=== PATIENT | male | born 1950 | race Caucasian/White ===

== ENCOUNTER 2019-12-28 10:04 | Outpatient (REF) | payer MEDICARE, MEDICAID, SELFPAY ==
--- NOTE | 2019-12-28 09:45 | CT_ITS ---
EXAMINATION: CT CHEST SCREENING CLINICAL INFORMATION: Lung cancer screening COMPARISON: Previous chest CT exams most recent September 2019 TECHNIQUE: Multidetector volumetric CT imaging of the chest is performed without contrast using low dose technique. Additional 2D coronal and sagittal reformatted images and axial 3D maximum intensity projection (MIP) images are generated on the CT workstation. This CT examination was performed using dose optimization techniques as appropriate, variously including the following: *Automated exposure control *Adjustment of mA and/or kV according to patient size (this includes techniques or standardized protocols for targeted exams where dose is matched to indication/reason for exam; i.e. extremities or head) *Use of iterative reconstruction technique DLP: 88 mGy-cm FINDINGS: LUNGS: There is evidence of emphysema. The previously identified new right-sided pulmonary nodule seen on September 2019 are no longer seen. There is scarring or subsegmental atelectasis at the right lung base. There is a peripheral or subpleural area of masslike consolidation seen in the right lower lobe with some early of the central bronchovascular pattern suggestive of round atelectasis that is stable. No new pulmonary nodule seen. MEDIASTINUM: The visualized thyroid gland is unremarkable. There are no enlarged hilar or mediastinal lymph nodes. There is an aortic valve replacement. The heart does not appear enlarged. There is moderate coronary artery calcification. The thoracic aorta is upper normal in size. The pulmonary arteries are prominent, main pulmonary artery measuring 3.6 cm again questionable for pulmonary artery hypertension. PLEURA: There is a small right pleural effusion or pleural thickening that is stable. There is no left pleural effusion. AXILLA: No chest wall mass or enlarged axillary lymph nodes are seen. UPPER ABDOMEN: Unremarkable OSSEOUS STRUCTURES: There is evidence of old trauma to the left proximal humerus. There are degenerative changes of the spine. There are median sternotomy wires. IMPRESSION: Emphysema. The multiple previously identified right-sided pulmonary nodules that were new on most recent exam September 2019 are no longer seen. Stable probable right lower lobe round atelectasis and chronic small right pleural effusion. ASSESSMENT: Benign Lung-RADS category 2: Benign RECOMMENDATION: Annual low-dose chest CT follow-up recommended.
== END 2019-12-28 10:05 | disposition home or self-care (01) ==
LOC: HO.CT 10:04
PROVIDERS: PCP Internal Medicine; Visit Provider Physician Assistant Medical
DX: Z12.2 Encounter for screening for malignant neoplasm of respiratory organs (principal); F17.210 Nicotine dependence, cigarettes, uncomplicated
CPT/HCPCS: 71250

== ENCOUNTER → 2020-01-17 11:54 | Outpatient (BNVA) | payer MEDICARE, MEDICAID, SELFPAY | PROVIDERS: PCP Internal Medicine; Visit Provider Internal Medicine | DX: Z95.2 Presence of prosthetic heart valve (principal); Z51.81 Encounter for therapeutic drug level monitoring; Z79.01 Long term (current) use of anticoagulants | CPT/HCPCS: 85610; 99211 ==

== ENCOUNTER 2020-01-19 11:20 | Outpatient (REF) | payer MEDICARE, MEDICAID, SELFPAY ==
--- NOTE | 2020-01-19 11:29 | CT_ITS ---
EXAMINATION: CT ABDOMEN AND PELVIS WITHOUT CONTRAST CLINICAL INFORMATION: Unilateral inguinal hernia. COMPARISON: CT abdomen and pelvis 04/29/2018. TECHNIQUE: Multidetector volumetric imaging was performed from the superior aspect of the liver through the pubic symphysis. Sagittal and coronal reformatted images were obtained on the technologist's workstation. This CT examination was performed using dose optimization techniques as appropriate, variously including the following: *Automated exposure control *Adjustment of mA and/or kV according to patient size (this includes techniques or standardized protocols for targeted exams where dose is matched to indication/reason for exam; i.e. extremities or head) *Use of iterative reconstruction technique DLP: 877 mGy-cm. FINDINGS: LUNG BASES: The heart size is normal. There is focal atelectasis and right posterior pleural thickening right lung base. LIVER, GALLBLADDER, AND BILIARY TREE: The liver is normal in size, shape, and attenuation. No focal hepatic lesion or biliary ductal dilatation is present. The gallbladder is unremarkable with no evidence of radiopaque gallstones, gallbladder wall thickening, or obvious pericholecystic inflammatory changes. PANCREAS: Unremarkable. SPLEEN: Unremarkable. ADRENAL GLANDS: Unremarkable. KIDNEYS AND URETERS: The kidneys are normal in size, shape, and attenuation. No hydronephrosis, hydroureter, or calculi seen. There is mild bilateral perinephric stranding with focal 1.6 cm fluid collection along the inferior tip of the left kidney. BLADDER: The bladder is decompressed. There is extension of superior bladder wall into the right inguinal hernia. GASTROINTESTINAL TRACT: There is scattered stool, diverticula and gas seen throughout the colon without significant distention. The small bowel loops are normal caliber. The stomach is nondistended. Appendix is not visualized. ABDOMINAL WALL: There is a large right inguinal hernia containing small bowel mesentery, small bowel loops, and mesenteric fat extending into the scrotum. No proximal bowel obstruction seen. LYMPH NODES: Normal. VASCULAR: There is accessory constipation abdominal aorta without aneurysmal dilatation. PELVIC VISCERA: No free air or free fluid seen. The prostate gland is normal size. OSSEOUS STRUCTURES: There is no lytic or sclerotic process. There is mild ventral spondylosis dorsal spine. CT/CT abdomen pelvis wo con IMPRESSION: Large right inguinal hernia containing small bowel loops, terminal ileum, mesentery, the hernia and superior bladder. The hernia extends all the way into the right scrotum. The scattered colonic diverticulosis. Bilateral perinephric stranding with focal fluid collection at the inferior tip of the left kidney.
== END 2020-01-19 11:21 | disposition home or self-care (01) ==
LOC: HO.CT 11:20
PROVIDERS: PCP Internal Medicine; Visit Provider Surgery
DX: K40.90 Unilateral inguinal hernia, without obstruction or gangrene, not specified as recurrent (principal)
CPT/HCPCS: 74176

== ENCOUNTER → 2020-01-29 11:30 | Outpatient (BNVA) | payer MEDICARE, MEDICAID, SELFPAY | PROVIDERS: PCP Internal Medicine; Visit Provider Internal Medicine | DX: Z95.2 Presence of prosthetic heart valve (principal); Z51.81 Encounter for therapeutic drug level monitoring; Z79.01 Long term (current) use of anticoagulants | CPT/HCPCS: 85610; 99211 ==

== ENCOUNTER → 2020-01-31 11:14 | Outpatient (BNVA) | payer MEDICARE, MEDICAID, SELFPAY | PROVIDERS: PCP Internal Medicine; Visit Provider Surgery | DX: K40.30 Unilateral inguinal hernia, with obstruction, without gangrene, not specified as recurrent (principal) | CPT/HCPCS: 99202 ==

== ENCOUNTER 2020-02-21 12:57 | Outpatient (REF) | payer MEDICARE, MEDICAID, SELFPAY ==
--- NOTE | 2020-02-21 12:59 | CT_ITS ---
EXAMINATION: CT CHEST WITHOUT CONTRAST CLINICAL INFORMATION: Nicotine dependence. COMPARISON: None TECHNIQUE: Multidetector volumetric CT imaging of the chest was done. Axial MIP volume rendering provided. Sagittal and coronal reformatted images were obtained. This CT examination was performed using dose optimization techniques as appropriate, variously including the following: *Automated exposure control *Adjustment of mA and/or kV according to patient size (this includes techniques or standardized protocols for targeted exams where dose is matched to indication/reason for exam; i.e. extremities or head) *Use of iterative reconstruction technique DLP: 234 mGy-cm FINDINGS: SCALE TECHNICIAN: Hyperinflated lungs. LUNGS: There is right lower lobe chronic consolidation/atelectasis with posterior pleural thickening. A 4 mm nodule right upper lobe centrally, axial image 45/8, is stable. No additional significant nodules seen. There are a few micronodules which are stable. No acute new consolidation or mass seen. MEDIASTINUM: The thyroid lobes are symmetrical and normal. The central trachea and the bronchi are widely patent. Heart size and the great vessels are normal caliber. No abnormal size mediastinal or hilar lymph nodes seen. There is aneurysmal dilatation of ascending aorta measuring 4.1 x 4.3 cm. Mild coronary artery calcification and aortic valve prosthesis is noted. There is no pericardial effusion. No abnormal mediastinal lymph nodes or mass seen. PLEURA: There is small right chronic pleural thickening and/or effusion. No left-sided pleural effusion. AXILLA: No lymphadenopathy. UPPER ABDOMEN: Visualized liver, spleen, pancreas and bilateral adrenal glands unremarkable. No radiopaque gallstones seen. OSSEOUS STRUCTURES: Old healing fractures left 6th and 7th ribs and hypertrophic bony changes along the left 6th costal vertebral junction. There is moderate ventral spondylosis. There are median sternotomy sutures from previous intervention. CT/CT chest wo con IMPRESSION: Stable 4 mm nodule right upper lobe centrally. A few micronodules seen; most of the nodules seen on 09/25/2019 are not visualized. Chronic consolidation or atelectasis right lung base and minimal right posterior pleural thickening/effusion is stable. No abnormal mediastinal lymphadenopathy seen.
== END 2020-02-21 12:58 | disposition home or self-care (01) ==
LOC: HO.CT 12:57
PROVIDERS: PCP Internal Medicine; Visit Provider Internal Medicine
DX: Z87.891 Personal history of nicotine dependence (principal); Z79.01 Long term (current) use of anticoagulants
CPT/HCPCS: 71250; 85610; 99211

== ENCOUNTER → 2020-03-13 10:05 | Outpatient (BNVA) | payer MEDICARE, MEDICAID, SELFPAY | PROVIDERS: PCP Internal Medicine; Visit Provider Internal Medicine Pulmonary Disease | DX: J44.9 Chronic obstructive pulmonary disease, unspecified (principal); R91.1 Solitary pulmonary nodule; F17.200 Nicotine dependence, unspecified, uncomplicated; Z79.899 Other long term (current) drug therapy | CPT/HCPCS: 99212 ==

== ENCOUNTER → 2020-03-20 10:35 | Outpatient (BNVA) | payer MEDICARE, MEDICAID, SELFPAY | PROVIDERS: PCP Internal Medicine; Visit Provider Internal Medicine | DX: Z95.2 Presence of prosthetic heart valve (principal); Z51.81 Encounter for therapeutic drug level monitoring; Z79.01 Long term (current) use of anticoagulants | CPT/HCPCS: 85610; 99211 ==

== ENCOUNTER 2020-03-28 14:08 | Outpatient (REF) | payer MEDICARE, MEDICAID, SELFPAY ==
--- NOTE | 2020-03-28 | US_ITS ---
EXAMINATION: US VENOUS ULTRASOUND WITH DOPPLER LOWER EXTREMITY, RIGHT CLINICAL INFORMATION: Localized edema right lower leg. Assess for occult DVT. COMPARISON: None TECHNIQUE: Ultrasound of the deep veins is performed from the hip to the calf with compression sonography and color and pulse Doppler assessment. Spectral analysis with color-flow imaging is performed. FINDINGS: There is normal venous compression and respiratory variation and augmented flow. The visualized common femoral vein, superficial femoral vein, profunda femoral vein, popliteal vein, and the trifurcation region shows no evidence of deep venous thrombosis. No popliteal fossa cyst. US/US venous duplex LE RT IMPRESSION: No DVT demonstrated in the right lower extremity.
== END 2020-03-28 14:09 | disposition home or self-care (01) ==
LOC: HO.HMGCX 14:08
PROVIDERS: Visit Provider Internal Medicine
DX: R60.0 Localized edema (principal)
CPT/HCPCS: 93971

== ENCOUNTER 2020-04-04 11:37 | Outpatient (REF) | payer MEDICARE, MEDICAID, SELFPAY ==
--- NOTE | 2020-04-04 | US_ITS ---
EXAMINATION: US RETROPERITONEAL LIMITED (AORTA) CLINICAL INFORMATION: History of smoking. Screening for AAA. COMPARISON: Abdominal CTA of January 19, 2020 TECHNIQUE: Reeves-scale, color Doppler and spectral Doppler evaluation of the abdominal aorta. FINDINGS: Abdominal aorta The measurements of the aorta in maximum AP and transverse dimensions respectively are as follows: Proximal: 2.9 x 3.5 cm. Mid: 2.4 x 2.4 cm. Distal: 2.1 x 2.7 cm. PSV: 62 cm/s. The measurements of the common iliac arteries in maximum AP and TRV dimensions are as follows: Right Common Iliac Artery: 1.3 x 1.4 cm. Left Common Iliac Artery: 1.4 x 1.6 cm. The left common iliac artery peak systolic velocity was 236 cm/s with a triphasic waveform with spectral broadening suggestive of an inflow stenosis. The right common iliac artery has a monophasic waveform with peak systolic velocity 137 cm/s again with the waveform suggestive of inflow stenosis. Calcified plaque was identified throughout the aorta and iliac vessels. US/US aorta IMPRESSION: No abdominal aortic aneurysm identified. Large amount of calcified plaque. 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
== END 2020-04-04 11:38 | disposition home or self-care (01) ==
LOC: HO.HMGCX 11:37
PROVIDERS: PCP Internal Medicine; Visit Provider Internal Medicine
DX: R60.0 Localized edema (principal); F17.210 Nicotine dependence, cigarettes, uncomplicated
CPT/HCPCS: 76775

== ENCOUNTER → 2020-04-17 11:04 | Outpatient (BNVA) | payer MEDICARE, MEDICAID, SELFPAY | PROVIDERS: PCP Internal Medicine; Visit Provider Internal Medicine | DX: Z95.2 Presence of prosthetic heart valve (principal); Z51.81 Encounter for therapeutic drug level monitoring; Z79.01 Long term (current) use of anticoagulants | CPT/HCPCS: 85610; 99211 ==

== ENCOUNTER → 2020-05-15 11:08 | Outpatient (BNVA) | payer MEDICARE, MEDICAID, SELFPAY | PROVIDERS: PCP Internal Medicine; Visit Provider Internal Medicine | DX: Z95.2 Presence of prosthetic heart valve (principal); Z51.81 Encounter for therapeutic drug level monitoring; Z79.01 Long term (current) use of anticoagulants | CPT/HCPCS: 85610; 99211 ==

== ENCOUNTER 2020-05-28 11:44 | Outpatient (REF) | payer MEDICARE, MEDICAID, SELFPAY | END 2020-05-28 11:45 | disposition home or self-care (01) | LOC: HO.XRAY 11:44 | PROVIDERS: PCP Internal Medicine; Visit Provider Internal Medicine | DX: Z13.89 Encounter for screening for other disorder (principal) ==

== ENCOUNTER → 2020-06-12 11:30 | Outpatient (BNVA) | payer MEDICARE, MEDICAID, SELFPAY | PROVIDERS: PCP Internal Medicine; Visit Provider Internal Medicine | DX: Z95.2 Presence of prosthetic heart valve (principal); Z51.81 Encounter for therapeutic drug level monitoring; Z79.01 Long term (current) use of anticoagulants | CPT/HCPCS: 85610; 99211 ==

== ENCOUNTER 2020-07-02 11:11 | Outpatient (REF) | payer MEDICARE, MEDICAID, SELFPAY ==
--- NOTE | ~2020-07-02 | XR_ITS ---
EXAMINATION: XR HIP, RIGHT CLINICAL INFORMATION: Pain. COMPARISON: None TECHNIQUE: Two views of the right hip. FINDINGS: Bones and soft tissues are normal. No fracture. Alignment is anatomic. Hip joint space is maintained. XR/XR hip RT min 2V IMPRESSION: Unremarkable right hip.
[2020-07-02 13:53] LABS: Hematocrit 31.2 % (42-52); Hemoglobin 10.2 g/dl (14.0-18.0); Mean Corpuscular HGB Conc 32.7 g/dl (31.0-36.0); Mean Corpuscular Hemoglobin 30.5 pg (27.0-33.0); Mean Corpuscular Volume 93.4 fL (80-98); Mean Platelet Volume 9.7 fL (9.4-12.4); Platelet Count 305 X10*3/uL (160-400); Red Blood Count 3.34 X10*6/uL (4.60-5.80); Red Cell Distribution Width 15.4 % (11.0-16.0); White Blood Count 9.2 X10*3/uL (4.8-10.8)
[2020-07-02 14:15] LABS: Anion Gap 13 (12-20); Blood Urea Nitrogen 31 mg/dL (9-16); Calcium 8.7 mg/dL (8.4-10.2); Carbon Dioxide 26 mmol/L (22-29); Chloride 100 mmol/L (96-108); Estimated Glomerular Filt Rate 47; Glucose Random 91 mg/dL (60-115); Sodium 134 mmol/L (135-145)
== END 2020-07-02 11:12 | disposition home or self-care (01) ==
LOC: HO.HMGCLDS 11:11
PROVIDERS: PCP Internal Medicine; Referring Provider Internal Medicine; Visit Provider Internal Medicine
DX: M25.551 Pain in right hip (principal); D64.9 Anemia, unspecified
CPT/HCPCS: 36415; 73502; 80048; 85027

== ENCOUNTER → 2020-07-10 11:19 | Outpatient (BNVA) | payer MEDICARE, MEDICAID, SELFPAY | PROVIDERS: PCP Internal Medicine; Visit Provider Internal Medicine | DX: Z95.2 Presence of prosthetic heart valve (principal); Z79.01 Long term (current) use of anticoagulants; Z51.81 Encounter for therapeutic drug level monitoring | CPT/HCPCS: 85610; 99211 ==

== ENCOUNTER → 2020-08-07 09:27 | Outpatient (BNVA) | payer MEDICARE, MEDICAID, SELFPAY | PROVIDERS: PCP Internal Medicine; Visit Provider Internal Medicine | DX: Z95.2 Presence of prosthetic heart valve (principal); Z51.81 Encounter for therapeutic drug level monitoring; Z79.01 Long term (current) use of anticoagulants | CPT/HCPCS: 85610; 99211 ==

== ENCOUNTER → 2020-09-05 10:17 | Outpatient (BNVA) | payer MEDICARE, MEDICAID, SELFPAY | PROVIDERS: PCP Internal Medicine; Visit Provider Internal Medicine | DX: Z95.2 Presence of prosthetic heart valve (principal); Z51.81 Encounter for therapeutic drug level monitoring; Z79.01 Long term (current) use of anticoagulants | CPT/HCPCS: 85610; 99211 ==

== ENCOUNTER → 2020-09-11 11:02 | Outpatient (BNVA) | payer MEDICARE, MEDICAID, SELFPAY | PROVIDERS: PCP Internal Medicine; Visit Provider Internal Medicine | DX: Z95.2 Presence of prosthetic heart valve (principal); Z51.81 Encounter for therapeutic drug level monitoring; Z79.01 Long term (current) use of anticoagulants | CPT/HCPCS: 85610; 99211 ==

== ENCOUNTER → 2020-09-17 09:54 | Outpatient (BNVA) | payer MEDICARE, MEDICAID, SELFPAY | PROVIDERS: PCP Internal Medicine; Visit Provider Internal Medicine Pulmonary Disease | DX: J44.9 Chronic obstructive pulmonary disease, unspecified (principal); R91.1 Solitary pulmonary nodule | CPT/HCPCS: 99212 ==

== ENCOUNTER → 2020-09-25 11:29 | Outpatient (BNVA) | payer MEDICARE, MEDICAID, SELFPAY | PROVIDERS: PCP Internal Medicine; Visit Provider Internal Medicine | DX: Z95.2 Presence of prosthetic heart valve (principal); Z51.81 Encounter for therapeutic drug level monitoring; Z79.01 Long term (current) use of anticoagulants | CPT/HCPCS: 85610; 99211 ==

== ENCOUNTER → 2020-10-09 11:43 | Outpatient (BNVA) | payer MEDICARE, MEDICAID, SELFPAY | PROVIDERS: PCP Internal Medicine; Visit Provider Internal Medicine | DX: Z95.2 Presence of prosthetic heart valve (principal); Z51.81 Encounter for therapeutic drug level monitoring; Z79.01 Long term (current) use of anticoagulants | CPT/HCPCS: 85610; 99211 ==

== ENCOUNTER → 2020-10-15 10:50 | Outpatient (BNVA) | payer MEDICARE, MEDICAID, SELFPAY | PROVIDERS: PCP Internal Medicine; Visit Provider Internal Medicine | DX: Z95.2 Presence of prosthetic heart valve (principal); Z51.81 Encounter for therapeutic drug level monitoring; Z79.01 Long term (current) use of anticoagulants | CPT/HCPCS: 85610; 99211 ==

== ENCOUNTER → 2020-10-22 12:10 | Outpatient (BNVA) | payer MEDICARE, MEDICAID, SELFPAY | PROVIDERS: PCP Internal Medicine; Visit Provider Internal Medicine | DX: Z95.2 Presence of prosthetic heart valve (principal); Z51.81 Encounter for therapeutic drug level monitoring; Z79.01 Long term (current) use of anticoagulants | CPT/HCPCS: 85610; 99211 ==

== ENCOUNTER → 2020-11-01 10:59 | Outpatient (BNVA) | payer MEDICARE, MEDICAID, SELFPAY | PROVIDERS: PCP Internal Medicine; Visit Provider Internal Medicine | DX: N40.1 Benign prostatic hyperplasia with lower urinary tract symptoms (principal); R35.1 Nocturia; Z95.2 Presence of prosthetic heart valve; Z79.01 Long term (current) use of anticoagulants; Z51.81 Encounter for therapeutic drug level monitoring | CPT/HCPCS: 51798; 85610; 99211; 99212 ==

== ENCOUNTER → 2020-11-13 11:16 | Outpatient (BNVA) | payer MEDICARE, MEDICAID, SELFPAY | PROVIDERS: PCP Internal Medicine; Visit Provider Internal Medicine | DX: Z95.2 Presence of prosthetic heart valve (principal); Z51.81 Encounter for therapeutic drug level monitoring; Z79.01 Long term (current) use of anticoagulants | CPT/HCPCS: 85610; 99211 ==

== ENCOUNTER → 2020-11-19 11:04 | Outpatient (BNVA) | payer MEDICARE, MEDICAID, SELFPAY | PROVIDERS: PCP Internal Medicine; Visit Provider Internal Medicine | DX: Z95.2 Presence of prosthetic heart valve (principal); Z51.81 Encounter for therapeutic drug level monitoring; Z79.01 Long term (current) use of anticoagulants | CPT/HCPCS: 85610; 99211 ==

== ENCOUNTER → 2020-11-26 11:31 | Outpatient (BNVA) | payer MEDICARE, MEDICAID, SELFPAY | PROVIDERS: PCP Internal Medicine; Visit Provider Internal Medicine | DX: Z95.2 Presence of prosthetic heart valve (principal); Z51.81 Encounter for therapeutic drug level monitoring; Z79.01 Long term (current) use of anticoagulants | CPT/HCPCS: 85610; 99211 ==

== ENCOUNTER 2020-12-03 17:38 | Emergency (ER) | payer MEDICARE, MEDICAID, SELFPAY ==
--- NOTE | ~2020-12-03 | CT_ITS ---
EXAMINATION: CT HEAD WITHOUT CONTRAST CLINICAL INFORMATION: Altered mental status. COMPARISON: CT head dated 11/23/2018. TECHNIQUE: Contiguous axial imaging was performed from the skull base to vertex without intravenous administration of contrast. Coronal and sagittal reformatted images were obtained. This CT examination was performed using dose optimization techniques as appropriate, variously including the following: *Automated exposure control *Adjustment of mA and/or kV according to patient size (this includes techniques or standardized protocols for targeted exams where dose is matched to indication/reason for exam; i.e. extremities or head) *Use of iterative reconstruction technique DLP: 801 mGy-cm FINDINGS: There is mild widening of the cortical sulci and associated ventriculomegaly. The lateral ventricles are symmetrical. The third and fourth ventricles are in their normal midline position. The basilar and prepontine cisterns are unremarkable. There is no acute intra or extracerebral abnormality. There is no mass effect or midline shift. Sections through the bony calvarium are unremarkable. The orbits are intact. The paranasal sinuses are clear. The mastoid air cells are clear. CT/CT head/brain wo con IMPRESSION: No acute intracranial pathology.
--- NOTE | ~2020-12-03 | XR_ITS ---
EXAMINATION: XR CHEST CLINICAL INFORMATION: Altered mental status. COMPARISON: 05/30/2018 chest radiograph. TECHNIQUE: Frontal view of the chest was obtained. FINDINGS: Diminished pulmonary markings are seen bilaterally most prominent in the upper lobes. The lung bases are clear. The heart and mediastinal structures are unremarkable. Multilevel sternotomy wires are again seen. Healed posterior left rib fractures are noted. XR/XR chest 1V IMPRESSION: COPD. No acute cardiopulmonary process.
[2020-12-03 19:42] VITALS: BP 198/88; PULSE 83; RESP 18; TEMP 36.8; O2SAT 100; BMI 33.9
[2020-12-03 20:25] LABS: Appearance Urine CLEAR; Color Urine YELLOW; Glucose Urine UA NEG (NEG); Leukocyte Esterase Urine NEG (NEG); Nitrite Urine NEG (NEG); PH 6.5 (5.0-8.0); Specific Gravity - Urine 1.015 (1.005-1.025); Urine Blood NEG (NEG); Urine Ketones NEG (NEG); Urine Protein NEG (NEG-TRACE)
--- NOTE | 2020-12-03 20:53 | ECG_ITS ---
Test Reason : GENERAL MEDICAL Blood Pressure : / mmHG Vent. Rate : 072 BPM Atrial Rate : 072 BPM P-R Int : 230 ms QRS Dur : 098 ms QT Int : 394 ms P-R-T Axes : 089 067 066 degrees QTc Int : 431 ms Sinus rhythm with 1st degree A-V block Possible Left atrial enlargement Borderline ECG When compared with ECG of 23-NOV-2018 11:15, Premature atrial complexes are no longer Present AR interval has increased Referred By: Vane Strickland Electronically Signed By:MOO DAMON
[2020-12-03 21:34] LABS: MANUAL DIFF FLAG NO
[2020-12-03 21:36] LABS: Basophils Percent Auto 0.5 % (0-2); Eosinophils Absolute Auto 0.1 X10*3/uL (0.0-0.4); Eosinophils Percent Auto 1.1 % (0-4); Hemoglobin 9.9 g/dl (14.0-18.0); Imm Gran Abs Auto 0.02 X10*3/uL (0.00-0.03); Imm Gran Pct Auto 0.3 % (0.0-0.4); Lymphocytes Percent Auto 15.8 % (20-40); Mean Corpuscular HGB Conc 34.1 g/dl (31.0-36.0); Mean Corpuscular Volume 93.9 fL (80-98); Mean Platelet Volume 9.6 fL (9.4-12.4); Monocytes Absolute Auto 0.5 X10*3/uL (0.1-1.2); Monocytes Percent Auto 7.7 % (2-11); Neutrophils Absolute Auto 4.9 X10*3/uL (2.0-8.3); Neutrophils Percent Auto 74.6 % (45-73); Platelet Count 290 X10*3/uL (160-400); Red Blood Count 3.09 X10*6/uL (4.60-5.80); Red Cell Distribution Width 15.1 % (11.0-16.0); White Blood Count 6.5 X10*3/uL (4.8-10.8)
[2020-12-03 21:38] VITALS: BP 154/66; PULSE 71; RESP 15; TEMP 36.7; O2SAT 99
[2020-12-03 21:45] LABS: Lactic Acid 0.7 mmol/L (0.5-2.0)
[2020-12-03 21:55] LABS: Troponin-I High Sensitivity 13.3 ng/L (<3.5-35.0)
[2020-12-03 22:04] LABS: Alanine Aminotransferase 15 U/L (0-40); Albumin Level 3.6 g/dL (3.5-5.0); Alkaline Phosphatase 90 U/L (39-117); Anion Gap 12 (12-20); Aspartate Amino Transferase 23 U/L (5-37); Bilirubin Direct 0.2 mg/dL (0.0-0.5); Bilirubin Total 0.4 mg/dL (0.0-1.0); Blood Urea Nitrogen 29 mg/dL (9-16); Calcium 8.9 mg/dL (8.4-10.2); Carbon Dioxide 23 mmol/L (22-29); Chloride 110 mmol/L (96-108); Creatinine Clr Calc Pharmacy 71.8; Estimated Glomerular Filt Rate 56; Glucose Random 98 mg/dL (60-115); Magnesium 1.5 mg/dL (1.6-2.6); Potassium 4.1 mmol/L (3.3-5.1); Sodium 141 mmol/L (135-145); Total Protein 6.2 g/dL (6.5-8.0)
[2020-12-03 22:13] LABS: COVID-19 Test Negative (Negative)
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
[2020-12-03 22:49] VITALS: BP 153/79; PULSE 81; RESP 16; TEMP 36.8; O2SAT 98
== END 2020-12-03 23:43 | disposition home or self-care (01) ==
PROVIDERS: Nurse Practitioner Family; Emergency Provider Emergency Medicine Emergency Medical Services
DX: R41.82 Altered mental status, unspecified (principal); E03.9 Hypothyroidism, unspecified; Z79.899 Other long term (current) drug therapy; Z20.822 Contact with and (suspected) exposure to COVID-19
CPT/HCPCS: 36415; 70450; 71045; 80048; 80076; 80164; 81003; 83605; 83735; 84484; 85025; 87040; 87086; 87635; 93005; 99284

== ENCOUNTER → 2020-12-10 11:39 | Outpatient (BNVA) | payer MEDICARE, MEDICAID, SELFPAY | PROVIDERS: PCP Internal Medicine; Visit Provider Internal Medicine | DX: Z95.2 Presence of prosthetic heart valve (principal); Z51.81 Encounter for therapeutic drug level monitoring; Z79.01 Long term (current) use of anticoagulants | CPT/HCPCS: 85610; 99211 ==

== ENCOUNTER → 2020-12-16 13:29 | Outpatient (BNVA) | payer MEDICARE, MEDICAID, SELFPAY | PROVIDERS: PCP Internal Medicine; Visit Provider Internal Medicine | DX: Z95.2 Presence of prosthetic heart valve (principal); Z51.81 Encounter for therapeutic drug level monitoring; Z79.01 Long term (current) use of anticoagulants | CPT/HCPCS: 85610; 99211 ==

== ENCOUNTER → 2020-12-23 11:38 | Outpatient (BNVA) | payer MEDICARE, MEDICAID, SELFPAY | PROVIDERS: PCP Internal Medicine; Visit Provider Internal Medicine | DX: Z95.2 Presence of prosthetic heart valve (principal); Z51.81 Encounter for therapeutic drug level monitoring; Z79.01 Long term (current) use of anticoagulants | CPT/HCPCS: 85610; 99211 ==

== ENCOUNTER → 2021-01-01 11:58 | Outpatient (BNVA) | payer MEDICARE, MEDICAID, SELFPAY | PROVIDERS: PCP Internal Medicine; Visit Provider Internal Medicine | DX: Z95.2 Presence of prosthetic heart valve (principal); Z51.81 Encounter for therapeutic drug level monitoring; Z79.01 Long term (current) use of anticoagulants | CPT/HCPCS: 85610; 99211 ==

== ENCOUNTER → 2021-01-08 13:20 | Outpatient (BNVA) | payer MEDICARE, MEDICAID, SELFPAY | PROVIDERS: PCP Internal Medicine; Visit Provider Internal Medicine | DX: Z95.2 Presence of prosthetic heart valve (principal); Z51.81 Encounter for therapeutic drug level monitoring; Z79.01 Long term (current) use of anticoagulants | CPT/HCPCS: 85610; 99211 ==

== ENCOUNTER → 2021-01-20 11:51 | Outpatient (BNVA) | payer MEDICARE, MEDICAID, SELFPAY | PROVIDERS: PCP Internal Medicine; Visit Provider Internal Medicine | DX: Z95.2 Presence of prosthetic heart valve (principal); Z51.81 Encounter for therapeutic drug level monitoring; Z79.01 Long term (current) use of anticoagulants | CPT/HCPCS: 85610; 99211 ==

== ENCOUNTER → 2021-01-27 11:22 | Outpatient (BNVA) | payer MEDICARE, MEDICAID, SELFPAY | PROVIDERS: PCP Internal Medicine; Visit Provider Internal Medicine | DX: Z95.2 Presence of prosthetic heart valve (principal); Z51.81 Encounter for therapeutic drug level monitoring; Z79.01 Long term (current) use of anticoagulants | CPT/HCPCS: 85610; 99211 ==

== ENCOUNTER → 2021-02-05 11:08 | Outpatient (BNVA) | payer MEDICARE, MEDICAID, SELFPAY | PROVIDERS: PCP Internal Medicine; Visit Provider Internal Medicine | DX: Z95.2 Presence of prosthetic heart valve (principal); Z51.81 Encounter for therapeutic drug level monitoring; Z79.01 Long term (current) use of anticoagulants | CPT/HCPCS: 85610; 99212 ==

== ENCOUNTER → 2021-02-11 11:28 | Outpatient (BNVA) | payer MEDICARE, MEDICAID, SELFPAY | PROVIDERS: PCP Internal Medicine; Visit Provider Internal Medicine | DX: Z95.2 Presence of prosthetic heart valve (principal); Z51.81 Encounter for therapeutic drug level monitoring; Z79.01 Long term (current) use of anticoagulants | CPT/HCPCS: 85610; 99212 ==

== ENCOUNTER 2021-02-24 10:55 | Outpatient (REF) | payer MEDICARE, MEDICAID, SELFPAY ==
--- NOTE | ~2021-02-24 | CT_ITS ---
EXAMINATION: CT CHEST WITHOUT CONTRAST CLINICAL INFORMATION: Solitary pulmonary nodule COMPARISON: Previous chest x-ray most recent November [address] February 2020 TECHNIQUE: Multidetector volumetric CT imaging of the chest was done. Axial MIP volume rendering provided. Sagittal and coronal reformatted images were obtained. This CT examination was performed using dose optimization techniques as appropriate, variously including the following: *Automated exposure control *Adjustment of mA and/or kV according to patient size (this includes techniques or standardized protocols for targeted exams where dose is matched to indication/reason for exam; i.e. extremities or head) *Use of iterative reconstruction technique DLP: 210 mGy-cm FINDINGS: LUNGS: The previously identified 4 mm right upper lobe nodule appears decreased in size and density at measuring approximately 2 mm axial image 191 series 7. There are 2 new adjacent small 2 mm heterogeneous or semisolid right upper lobe nodules axial image 138 series 7. There is round atelectasis seen in the right lower lobe adjacent to pleural thickening calcification. The left lung is clear. MEDIASTINUM: The heart does not appear enlarged. There is coronary artery calcification. There is a prosthetic aortic valve. The ascending thoracic aorta is normal in caliber. The pulmonary arteries are stable dilated, main pulmonary artery measuring 4.1 cm. There is no pericardial effusion. There are no enlarged hilar or mediastinal lymph nodes. PLEURA: There is chronic right pleural thickening and pleural calcification that is stable. There is no left pleural effusion or pleural thickening. AXILLA: No lymphadenopathy. UPPER ABDOMEN: Unremarkable. OSSEOUS STRUCTURES: There are degenerative changes of the thoracic spine. There is a united median sternotomy. There is an old healed fracture of the left proximal humerus. There are severe degenerative changes of the left shoulder joint. There are old left-sided rib fractures. CT/CT chest wo con IMPRESSION: Stable probable round atelectasis in the right lower lobe and adjacent right pleural thickening and calcification. Interval decrease in size and density of the previously identified 4 mm right upper lobe nodule. Two new small 2 mm right upper lobe nodules. Postoperative changes following aortic valve replacement. Enlarged pulmonary arteries. Fleischner guidelines were followed.
== END 2021-02-24 10:56 | disposition home or self-care (01) ==
LOC: HO.CT 10:55
PROVIDERS: PCP Internal Medicine; Visit Provider Internal Medicine Pulmonary Disease
DX: R91.1 Solitary pulmonary nodule (principal)
CPT/HCPCS: 71250

== ENCOUNTER → 2021-02-25 10:50 | Outpatient (BNVA) | payer MEDICARE, MEDICAID, SELFPAY | PROVIDERS: PCP Internal Medicine; Visit Provider Internal Medicine | DX: Z95.2 Presence of prosthetic heart valve (principal); Z51.81 Encounter for therapeutic drug level monitoring; Z79.01 Long term (current) use of anticoagulants | CPT/HCPCS: 85610; 99211 ==

== ENCOUNTER → 2021-03-11 10:48 | Outpatient (BNVA) | payer MEDICARE, MEDICAID, SELFPAY | PROVIDERS: PCP Internal Medicine; Visit Provider Internal Medicine | DX: Z95.2 Presence of prosthetic heart valve (principal); Z51.81 Encounter for therapeutic drug level monitoring; Z79.01 Long term (current) use of anticoagulants | CPT/HCPCS: 85610; 99212 ==

== ENCOUNTER → 2021-03-18 11:12 | Outpatient (BNVA) | payer MEDICARE, MEDICAID, SELFPAY | PROVIDERS: PCP Internal Medicine; Visit Provider Internal Medicine | DX: Z95.2 Presence of prosthetic heart valve (principal); Z51.81 Encounter for therapeutic drug level monitoring; Z79.01 Long term (current) use of anticoagulants | CPT/HCPCS: 85610; 99211 ==

== ENCOUNTER → 2021-03-26 13:11 | Outpatient (BNVA) | payer MEDICARE, MEDICAID, SELFPAY | PROVIDERS: PCP Internal Medicine; Visit Provider Internal Medicine | DX: Z95.2 Presence of prosthetic heart valve (principal); Z51.81 Encounter for therapeutic drug level monitoring; Z79.01 Long term (current) use of anticoagulants | CPT/HCPCS: 85610; 99211 ==

== ENCOUNTER → 2021-04-09 13:15 | Outpatient (BNVA) | payer MEDICARE, MEDICAID, SELFPAY | PROVIDERS: PCP Internal Medicine; Visit Provider Internal Medicine | DX: Z95.2 Presence of prosthetic heart valve (principal); Z51.81 Encounter for therapeutic drug level monitoring; Z79.01 Long term (current) use of anticoagulants | CPT/HCPCS: 85610; 99211 ==

== ENCOUNTER → 2021-04-23 11:48 | Outpatient (BNVA) | payer MEDICARE, MEDICAID, SELFPAY | PROVIDERS: PCP Internal Medicine; Visit Provider Internal Medicine | DX: Z95.2 Presence of prosthetic heart valve (principal); Z51.81 Encounter for therapeutic drug level monitoring; Z79.01 Long term (current) use of anticoagulants | CPT/HCPCS: 85610; 99211 ==

== ENCOUNTER → 2021-04-30 13:30 | Outpatient (BNVA) | payer MEDICARE, MEDICAID, SELFPAY | PROVIDERS: PCP Internal Medicine; Visit Provider Internal Medicine | DX: Z95.2 Presence of prosthetic heart valve (principal); Z51.81 Encounter for therapeutic drug level monitoring; Z79.01 Long term (current) use of anticoagulants | CPT/HCPCS: 85610; 99211 ==

== ENCOUNTER → 2021-05-15 13:33 | Outpatient (BNVA) | payer MEDICARE, MEDICAID, SELFPAY | PROVIDERS: PCP Internal Medicine; Visit Provider Internal Medicine | DX: Z95.2 Presence of prosthetic heart valve (principal); Z51.81 Encounter for therapeutic drug level monitoring; Z79.01 Long term (current) use of anticoagulants | CPT/HCPCS: 85610 ==

== ENCOUNTER → 2021-05-21 13:31 | Outpatient (BNVA) | payer MEDICARE, MEDICAID, SELFPAY | PROVIDERS: PCP Internal Medicine; Visit Provider Internal Medicine | DX: Z95.2 Presence of prosthetic heart valve (principal); Z51.81 Encounter for therapeutic drug level monitoring; Z79.01 Long term (current) use of anticoagulants | CPT/HCPCS: 85610; 99211 ==

== ENCOUNTER → 2021-05-28 10:47 | Outpatient (BNVA) | payer MEDICARE, MEDICAID, SELFPAY | PROVIDERS: PCP Internal Medicine; Visit Provider Internal Medicine Pulmonary Disease | DX: J44.9 Chronic obstructive pulmonary disease, unspecified (principal); R91.1 Solitary pulmonary nodule | CPT/HCPCS: 99212 ==

== ENCOUNTER → 2021-06-04 13:38 | Outpatient (BNVA) | payer MEDICARE, MEDICAID, SELFPAY | PROVIDERS: PCP Internal Medicine; Visit Provider Internal Medicine | DX: Z95.2 Presence of prosthetic heart valve (principal); Z79.01 Long term (current) use of anticoagulants; Z51.81 Encounter for therapeutic drug level monitoring | CPT/HCPCS: 85610; 99211 ==

== ENCOUNTER → 2021-06-25 13:31 | Outpatient (BNVA) | payer MEDICARE, MEDICAID, SELFPAY | PROVIDERS: PCP Internal Medicine; Visit Provider Internal Medicine | DX: Z95.2 Presence of prosthetic heart valve (principal); Z51.81 Encounter for therapeutic drug level monitoring; Z79.01 Long term (current) use of anticoagulants | CPT/HCPCS: 85610; 99211 ==

== ENCOUNTER → 2021-07-09 13:04 | Outpatient (BNVA) | payer MEDICARE, MEDICAID, SELFPAY | PROVIDERS: PCP Internal Medicine; Visit Provider Internal Medicine | DX: Z95.2 Presence of prosthetic heart valve (principal); Z79.01 Long term (current) use of anticoagulants; Z51.81 Encounter for therapeutic drug level monitoring | CPT/HCPCS: 85610; 99211 ==

== ENCOUNTER → 2021-07-30 11:13 | Outpatient (BNVA) | payer MEDICARE, MEDICAID, SELFPAY | PROVIDERS: PCP Internal Medicine; Visit Provider Internal Medicine | DX: Z95.2 Presence of prosthetic heart valve (principal); Z79.01 Long term (current) use of anticoagulants; Z51.81 Encounter for therapeutic drug level monitoring | CPT/HCPCS: 85610; 99211 ==

== ENCOUNTER → 2021-08-13 10:51 | Outpatient (BNVA) | payer MEDICARE, MEDICAID, SELFPAY | PROVIDERS: PCP Internal Medicine; Visit Provider Internal Medicine | DX: Z95.2 Presence of prosthetic heart valve (principal); Z79.01 Long term (current) use of anticoagulants; Z51.81 Encounter for therapeutic drug level monitoring | CPT/HCPCS: 85610; 99211 ==

== ENCOUNTER → 2021-09-03 11:24 | Outpatient (BNVA) | payer MEDICARE, MEDICAID, SELFPAY | PROVIDERS: PCP Internal Medicine; Visit Provider Internal Medicine | DX: Z95.2 Presence of prosthetic heart valve (principal); Z79.01 Long term (current) use of anticoagulants; Z51.81 Encounter for therapeutic drug level monitoring | CPT/HCPCS: 85610; 99211 ==

== ENCOUNTER → 2021-09-24 11:13 | Outpatient (BNVA) | payer MEDICARE, MEDICAID, SELFPAY | PROVIDERS: PCP Internal Medicine; Visit Provider Internal Medicine | DX: Z95.2 Presence of prosthetic heart valve (principal); Z51.81 Encounter for therapeutic drug level monitoring; Z79.01 Long term (current) use of anticoagulants | CPT/HCPCS: 85610; 99211 ==

== ENCOUNTER → 2021-10-29 11:35 | Outpatient (BNVA) | payer MEDICARE, MEDICAID, SELFPAY | PROVIDERS: PCP Internal Medicine; Visit Provider Internal Medicine | DX: Z95.2 Presence of prosthetic heart valve (principal); Z79.01 Long term (current) use of anticoagulants; Z51.81 Encounter for therapeutic drug level monitoring | CPT/HCPCS: 85610; 99211 ==

== ENCOUNTER → 2021-10-31 13:44 | Outpatient (BNVA) | payer MEDICARE, MEDICAID, SELFPAY | PROVIDERS: PCP Internal Medicine; Visit Provider Urology | DX: R35.1 Nocturia (principal); N40.1 Benign prostatic hyperplasia with lower urinary tract symptoms | CPT/HCPCS: 51798; 99212 ==

== ENCOUNTER → 2021-11-21 10:58 | Outpatient (BNVA) | payer MEDICARE, MEDICAID, SELFPAY | PROVIDERS: PCP Internal Medicine; Visit Provider Internal Medicine Pulmonary Disease | DX: J44.9 Chronic obstructive pulmonary disease, unspecified (principal); R91.1 Solitary pulmonary nodule | CPT/HCPCS: 99212 ==

== ENCOUNTER → 2021-11-26 11:16 | Outpatient (BNVA) | payer MEDICARE, MEDICAID, SELFPAY | PROVIDERS: PCP Internal Medicine; Visit Provider Internal Medicine | DX: Z95.2 Presence of prosthetic heart valve (principal); Z79.01 Long term (current) use of anticoagulants; Z51.81 Encounter for therapeutic drug level monitoring | CPT/HCPCS: 85610; 99211 ==

== ENCOUNTER → 2021-12-24 11:40 | Outpatient (BNVA) | payer MEDICARE, MEDICAID, SELFPAY | PROVIDERS: PCP Internal Medicine; Visit Provider Internal Medicine | DX: Z95.2 Presence of prosthetic heart valve (principal); Z51.81 Encounter for therapeutic drug level monitoring; Z79.01 Long term (current) use of anticoagulants | CPT/HCPCS: 85610; 99211 ==

== ENCOUNTER → 2021-12-26 11:20 | Outpatient (BNVA) | payer MEDICARE, MEDICAID, SELFPAY | PROVIDERS: PCP Internal Medicine; Visit Provider Internal Medicine | DX: Z95.2 Presence of prosthetic heart valve (principal); Z79.01 Long term (current) use of anticoagulants; Z51.81 Encounter for therapeutic drug level monitoring | CPT/HCPCS: 85610; 99211 ==

== ENCOUNTER → 2022-01-07 11:33 | Outpatient (BNVA) | payer MEDICARE, MEDICAID, SELFPAY | PROVIDERS: PCP Internal Medicine; Visit Provider Internal Medicine | DX: Z95.2 Presence of prosthetic heart valve (principal); Z79.01 Long term (current) use of anticoagulants; Z51.81 Encounter for therapeutic drug level monitoring | CPT/HCPCS: 85610 ==

== ENCOUNTER → 2022-01-28 11:15 | Outpatient (BNVA) | payer MEDICARE, MEDICAID, SELFPAY | PROVIDERS: PCP Internal Medicine; Visit Provider Internal Medicine | DX: Z95.2 Presence of prosthetic heart valve (principal); Z79.01 Long term (current) use of anticoagulants; Z51.81 Encounter for therapeutic drug level monitoring | CPT/HCPCS: 85610; 99211 ==

== ENCOUNTER → 2022-02-04 11:09 | Outpatient (BNVA) | payer MEDICARE, MEDICAID, SELFPAY | PROVIDERS: PCP Internal Medicine; Visit Provider Internal Medicine | DX: Z95.2 Presence of prosthetic heart valve (principal); Z79.01 Long term (current) use of anticoagulants; Z51.81 Encounter for therapeutic drug level monitoring | CPT/HCPCS: 85610; 99211 ==

== ENCOUNTER → 2022-02-18 10:59 | Outpatient (BNVA) | payer MEDICARE, MEDICAID, SELFPAY | PROVIDERS: PCP Internal Medicine; Visit Provider Internal Medicine | DX: Z95.2 Presence of prosthetic heart valve (principal); Z79.01 Long term (current) use of anticoagulants; Z51.81 Encounter for therapeutic drug level monitoring | CPT/HCPCS: 85610; 99211 ==

== ENCOUNTER → 2022-02-27 10:49 | Outpatient (BNVA) | payer MEDICARE, MEDICAID, SELFPAY | PROVIDERS: PCP Internal Medicine; Visit Provider Internal Medicine Pulmonary Disease | DX: J44.9 Chronic obstructive pulmonary disease, unspecified (principal); R91.1 Solitary pulmonary nodule; F31.9 Bipolar disorder, unspecified; F17.210 Nicotine dependence, cigarettes, uncomplicated; Z79.899 Other long term (current) drug therapy | CPT/HCPCS: 99212 ==

== ENCOUNTER → 2022-03-04 11:16 | Outpatient (BNVA) | payer MEDICARE, MEDICAID, SELFPAY | PROVIDERS: PCP Internal Medicine; Visit Provider Internal Medicine | DX: Z95.2 Presence of prosthetic heart valve (principal); Z79.01 Long term (current) use of anticoagulants; Z51.81 Encounter for therapeutic drug level monitoring | CPT/HCPCS: 85610; 99211 ==

== ENCOUNTER → 2022-03-18 13:18 | Outpatient (BNVA) | payer MEDICARE, MEDICAID, SELFPAY | PROVIDERS: PCP Internal Medicine; Visit Provider Internal Medicine | DX: Z95.2 Presence of prosthetic heart valve (principal); Z79.01 Long term (current) use of anticoagulants; Z51.81 Encounter for therapeutic drug level monitoring | CPT/HCPCS: 85610; 99211 ==

== ENCOUNTER → 2022-04-01 11:31 | Outpatient (BNVA) | payer MEDICARE, MEDICAID, SELFPAY | PROVIDERS: PCP Internal Medicine; Visit Provider Internal Medicine | DX: Z95.2 Presence of prosthetic heart valve (principal); Z79.01 Long term (current) use of anticoagulants; Z51.81 Encounter for therapeutic drug level monitoring | CPT/HCPCS: 85610; 99211 ==

== ENCOUNTER → 2022-04-22 11:33 | Outpatient (BNVA) | payer MEDICARE, MEDICAID, SELFPAY | PROVIDERS: PCP Internal Medicine; Visit Provider Internal Medicine | DX: Z95.2 Presence of prosthetic heart valve (principal); Z79.01 Long term (current) use of anticoagulants; Z51.81 Encounter for therapeutic drug level monitoring | CPT/HCPCS: 85610; 99211 ==

== ENCOUNTER → 2022-05-06 09:49 | Outpatient (BNVA) | payer MEDICARE, MEDICAID, SELFPAY | PROVIDERS: PCP Internal Medicine; Visit Provider Internal Medicine | DX: Z95.2 Presence of prosthetic heart valve (principal); Z51.81 Encounter for therapeutic drug level monitoring; Z79.01 Long term (current) use of anticoagulants | CPT/HCPCS: 85610; 99211 ==

== ENCOUNTER → 2022-05-20 11:23 | Outpatient (BNVA) | payer MEDICARE, MEDICAID, SELFPAY | PROVIDERS: PCP Internal Medicine; Visit Provider Internal Medicine | DX: Z95.2 Presence of prosthetic heart valve (principal); Z79.01 Long term (current) use of anticoagulants; Z51.81 Encounter for therapeutic drug level monitoring | CPT/HCPCS: 85610; 99211 ==

== ENCOUNTER → 2022-05-27 11:24 | Outpatient (BNVA) | payer MEDICARE, MEDICAID, SELFPAY | PROVIDERS: PCP Internal Medicine; Visit Provider Internal Medicine | DX: Z95.2 Presence of prosthetic heart valve (principal); Z79.01 Long term (current) use of anticoagulants; Z51.81 Encounter for therapeutic drug level monitoring | CPT/HCPCS: 85610; 99211 ==

== ENCOUNTER → 2022-06-23 13:16 | Outpatient (BNVA) | payer MEDICARE, MEDICAID, SELFPAY | PROVIDERS: PCP Internal Medicine; Visit Provider Internal Medicine | DX: Z95.2 Presence of prosthetic heart valve (principal); Z79.01 Long term (current) use of anticoagulants; Z51.81 Encounter for therapeutic drug level monitoring | CPT/HCPCS: 85610; 99211 ==

== ENCOUNTER → 2022-06-26 11:07 | Outpatient (BNVA) | payer MEDICARE, MEDICAID, SELFPAY | PROVIDERS: PCP Internal Medicine; Visit Provider Internal Medicine | DX: Z95.2 Presence of prosthetic heart valve (principal); Z79.01 Long term (current) use of anticoagulants; Z51.81 Encounter for therapeutic drug level monitoring | CPT/HCPCS: 85610; 99211 ==

== ENCOUNTER 2022-06-29 10:33 | Outpatient (REF) | payer MEDICARE, MEDICAID, SELFPAY ==
--- NOTE | ~2022-06-29 | CT_ITS ---
EXAMINATION: CT CHEST WITHOUT CONTRAST CLINICAL INFORMATION: Solitary pulmonary nodule COMPARISON: CT chest 02/24/2021, 02/21/2020. TECHNIQUE: Multidetector volumetric CT imaging of the chest was done. Axial MIP volume rendering provided. Sagittal and coronal reformatted images were obtained. This CT examination was performed using dose optimization techniques as appropriate, variously including the following: *Automated exposure control *Adjustment of mA and/or kV according to patient size (this includes techniques or standardized protocols for targeted exams where dose is matched to indication/reason for exam; i.e. extremities or head) *Use of iterative reconstruction technique DLP: 221 mGy-cm FINDINGS: LUNGS: Moderate centrilobular emphysema with upper lobe predominance. Stable rounded atelectasis at the right lung base. Scattered micronodules showing no appreciable change from prior. No new or suspiciously enlarging pulmonary nodule. MEDIASTINUM: Aortic valve replacement. Dilated main pulmonary artery. Ascending aortic aneurysm measuring 4.3 x 4.3 cm, stable. CORONARY ARTERY CALCIFICATION: Present. LAD and RCA calcium. PLEURA: New moderate left pleural effusion measuring simple density. AXILLA: No lymphadenopathy. UPPER ABDOMEN: Unremarkable. OSSEOUS STRUCTURES: Degenerative changes in the spine. CT/CT chest wo IV con IMPRESSION: Stable probable round atelectasis right lower lobe. New moderate simple density left pleural effusion. Emphysema. Stable scattered micronodules. No follow-up is recommended. Stable ascending aortic aneurysm measuring 4.3 cm. Unchanged dilated pulmonary arteries consistent with pulmonary arterial hypertension. Fleischner guidelines were followed.
== END 2022-06-29 10:34 | disposition home or self-care (01) ==
LOC: HO.CT 10:33
PROVIDERS: Visit Provider Internal Medicine Pulmonary Disease
DX: R91.1 Solitary pulmonary nodule (principal)
CPT/HCPCS: 71250

== ENCOUNTER → 2022-07-03 11:33 | Outpatient (BNVA) | payer MEDICARE, MEDICAID, SELFPAY | PROVIDERS: PCP Internal Medicine; Visit Provider Internal Medicine | DX: Z95.2 Presence of prosthetic heart valve (principal); Z79.01 Long term (current) use of anticoagulants; Z51.81 Encounter for therapeutic drug level monitoring | CPT/HCPCS: 85610; 99211 ==

== ENCOUNTER → 2022-07-16 11:30 | Outpatient (BNVA) | payer MEDICARE, MEDICAID, SELFPAY | PROVIDERS: PCP Internal Medicine; Visit Provider Internal Medicine | DX: Z95.2 Presence of prosthetic heart valve (principal); Z79.01 Long term (current) use of anticoagulants; Z51.81 Encounter for therapeutic drug level monitoring | CPT/HCPCS: 85610; 99211 ==

== ENCOUNTER → 2022-07-17 11:37 | Outpatient (BNVA) | payer MEDICARE, MEDICAID, SELFPAY | PROVIDERS: PCP Internal Medicine; Visit Provider Internal Medicine | DX: Z95.2 Presence of prosthetic heart valve (principal); Z79.01 Long term (current) use of anticoagulants; Z51.81 Encounter for therapeutic drug level monitoring | CPT/HCPCS: 85610; 99211 ==

== ENCOUNTER → 2022-07-23 11:03 | Outpatient (BNVA) | payer MEDICARE, MEDICAID, SELFPAY | PROVIDERS: PCP Internal Medicine; Visit Provider Internal Medicine | DX: Z95.2 Presence of prosthetic heart valve (principal); Z79.01 Long term (current) use of anticoagulants; Z51.81 Encounter for therapeutic drug level monitoring | CPT/HCPCS: 85610; 99211 ==

== ENCOUNTER → 2022-07-24 13:32 | Outpatient (BNVA) | payer MEDICARE, MEDICAID, SELFPAY | PROVIDERS: PCP Internal Medicine; Visit Provider Internal Medicine Pulmonary Disease | DX: J44.9 Chronic obstructive pulmonary disease, unspecified (principal); R91.1 Solitary pulmonary nodule; F17.210 Nicotine dependence, cigarettes, uncomplicated | CPT/HCPCS: 99212 ==

== ENCOUNTER → 2022-07-29 11:06 | Outpatient (BNVA) | payer MEDICARE, MEDICAID, SELFPAY | PROVIDERS: PCP Internal Medicine; Visit Provider Surgery | DX: K40.30 Unilateral inguinal hernia, with obstruction, without gangrene, not specified as recurrent (principal) | CPT/HCPCS: 99212 ==

== ENCOUNTER → 2022-07-31 11:04 | Outpatient (BNVA) | payer MEDICARE, MEDICAID, SELFPAY | PROVIDERS: PCP Internal Medicine; Visit Provider Internal Medicine | DX: Z95.2 Presence of prosthetic heart valve (principal); Z79.01 Long term (current) use of anticoagulants; Z51.81 Encounter for therapeutic drug level monitoring | CPT/HCPCS: 85610; 99211 ==

== ENCOUNTER → 2022-08-14 11:01 | Outpatient (BNVA) | payer MEDICARE, MEDICAID, SELFPAY | PROVIDERS: PCP Internal Medicine; Visit Provider Internal Medicine | DX: Z95.2 Presence of prosthetic heart valve (principal); Z79.01 Long term (current) use of anticoagulants; Z51.81 Encounter for therapeutic drug level monitoring | CPT/HCPCS: 85610; 99211 ==

== ENCOUNTER → 2022-08-27 11:34 | Outpatient (BNVA) | payer MEDICARE, MEDICAID, SELFPAY | PROVIDERS: PCP Internal Medicine; Visit Provider Internal Medicine | DX: Z95.2 Presence of prosthetic heart valve (principal); Z79.01 Long term (current) use of anticoagulants; Z51.81 Encounter for therapeutic drug level monitoring | CPT/HCPCS: 85610; 99211 ==

== ENCOUNTER → 2022-09-17 11:26 | Outpatient (BNVA) | payer MEDICARE, MEDICAID, SELFPAY | PROVIDERS: PCP Internal Medicine; Visit Provider Internal Medicine | DX: Z95.2 Presence of prosthetic heart valve (principal); Z79.01 Long term (current) use of anticoagulants; Z51.81 Encounter for therapeutic drug level monitoring | CPT/HCPCS: 85610; 99211 ==

== ENCOUNTER 2022-10-01 11:28 | Outpatient (AMB) | payer MEDICARE, MEDICAID, SELFPAY ==
--- NOTE | 2022-10-01 11:46 | MHC.OFFVISCO ---
Intake Intake Visit Reasons: Anticoagulation Allergies No Known Allergies Allergy (Mild, Verified 10/01/22 11:40) NOT APPLICABLE Medication List - Last Reconciled 10/01/22 by Della Isabel RN acetaminophen 500 mg PO Q6H PRN albuterol sulfate 90 mcg/actuation 2 puffs inhalation Q4H PRN 30 days atorvastatin 40 mg PO BEDTIME benztropine 0.5 mg PO BEDTIME cholecalciferol (vitamin D3) (Vitamin D3) 25 mcg PO DAILY demeclocycline 300 mg PO Q12H dicyclomine 20 mg PO BID divalproex (Depakote) 1750 MG IN DIVIDED DOSES PO; ferrous sulfate 325 mg PO DAILY fluticasone propion-salmeterol 500-50 mcg/dose (Advair Diskus) 1 ea inhalation BID folic acid 1 mg PO DAILY ketoconazole 2% topical levothyroxine 25 mcg PO DAILY magnesium oxide 400 mg PO BID xjxvgpqa-sbnr-NE-calcium-mins 9 mg iron-400 mcg (Therapeutic-M) 1 tab PO DAILY multivitamin with folic acid 400 mcg (Daily-Stanley (with folic acid)) 1 tab PO DAILY pantoprazole 40 mg PO DAILY risperidone (Risperdal) 1.5 mg PO BEDTIME tamsulosin 0.4 mg PO DAILY 90 days thiamine mononitrate (vit B1) (Vitamin B-1 (mononitrate)) 100 mg PO BID trazodone 25 mg PO DAILY PRN Trelegy Ellipta 100-62.5-25 mcg (yozpbmohmtp-daemnfkam-sfuewymx) 1 inh inhalation DAILY NS umeclidinium 62.5 mcg/actuation (Incruse Ellipta) 1 inh inhalation DAILY valproic acid (as sodium salt) 1,500 mg PO DAILY warfarin 4 mg See Protocol PO DAILY Nursing Note INR: 2.9- in therapeutic range Medications and supplements reviewed No changes in health, diet, medications, or supplements, Denies any signs and symptoms of bleeding or bruising or clotting. Bleeding, bruising, clotting discussed Nutritional guidance given Dose: 2mg x 2, 4mg x 5 F/U INR: pt req 3 weeks Patient with staff member verbalizes understanding of instructions given Anti-Coag Initial Assessment Social Hx alcohol intake: never Coding Level of Care Code Est Patient Level 1 Diagnoses Current use of anticoagulant therapy Z79.01 Assessment & Plan Assessment & Plan (1) Current use of anticoagulant therapy: Code(s): Z79.01 - intermediate card tender (current) use of anticoagulants Category: Medical
[2022-10-01 11:47] LABS: Prothrombin Time Whole Bld POC 34.3 sec (11.1-13.5); ~PT, ~INR - Anti Coag Clinic 2.9 (0.9-1.1)
== END 2022-10-01 12:11 | disposition home or self-care (01) ==
LOC: HO.ACS 11:28
PROVIDERS: PCP Internal Medicine; Visit Provider Internal Medicine
DX: Z79.01 Long term (current) use of anticoagulants (principal)

== ENCOUNTER → 2022-10-01 11:28 | Outpatient (BNVA) | payer MEDICARE, MEDICAID, SELFPAY | PROVIDERS: PCP Internal Medicine; Visit Provider Internal Medicine | DX: Z95.2 Presence of prosthetic heart valve (principal); Z79.01 Long term (current) use of anticoagulants; Z51.81 Encounter for therapeutic drug level monitoring | CPT/HCPCS: 85610; 99211 ==

== ENCOUNTER 2022-10-22 11:23 | Outpatient (AMB) | payer MEDICARE, MEDICAID, SELFPAY ==
[2022-10-22 11:28] LABS: Prothrombin Time Whole Bld POC 37.4 sec (11.1-13.5); ~PT, ~INR - Anti Coag Clinic 3.1 (0.9-1.1)
--- NOTE | 2022-10-22 11:30 | MHC.OFFVISCO ---
Intake Intake Visit Reasons: Anticoagulation Allergies No Known Allergies Allergy (Mild, Verified 10/22/22 11:23) NOT APPLICABLE Medication List - Last Reconciled 10/22/22 by Nivia Matthew RN acetaminophen 500 mg PO Q6H PRN albuterol sulfate 90 mcg/actuation 2 puffs inhalation Q4H PRN 30 days atorvastatin 40 mg PO BEDTIME benztropine 0.5 mg PO BEDTIME cholecalciferol (vitamin D3) (Vitamin D3) 25 mcg PO DAILY demeclocycline 300 mg PO Q12H dicyclomine 20 mg PO BID divalproex (Depakote) 1750 MG IN DIVIDED DOSES PO; ferrous sulfate 325 mg PO DAILY fluticasone propion-salmeterol 500-50 mcg/dose (Advair Diskus) 1 ea inhalation BID folic acid 1 mg PO DAILY ketoconazole 2% topical levothyroxine 25 mcg PO DAILY magnesium oxide 400 mg PO BID rntcofez-ezpm-AG-calcium-mins 9 mg iron-400 mcg (Therapeutic-M) 1 tab PO DAILY multivitamin with folic acid 400 mcg (Daily-Stanley (with folic acid)) 1 tab PO DAILY pantoprazole 40 mg PO DAILY risperidone (Risperdal) 1.5 mg PO BEDTIME tamsulosin 0.4 mg PO DAILY 90 days thiamine mononitrate (vit B1) (Vitamin B-1 (mononitrate)) 100 mg PO BID trazodone 25 mg PO DAILY PRN Trelegy Ellipta 100-62.5-25 mcg (ebvyqkwoiwk-oczenkkiy-tmjxhrfr) 1 inh inhalation DAILY NS umeclidinium 62.5 mcg/actuation (Incruse Ellipta) 1 inh inhalation DAILY valproic acid (as sodium salt) 1,500 mg PO DAILY warfarin 4 mg See Protocol PO DAILY Nursing Note Amb to [facility] using cane, unaccompanied today, feeling ok Medications and supplements reviewed No changes No changes in health, diet, medications, or supplements Denies any unusual signs and symptoms of bruising, bleeding Denies any new Chest pain, SOB, or clotting INR: 3.1 just above therapeutic range Nutritional guidance given:no reds x 2 days, try to get in a green Dose: continue usual dosing; 2mg x 2 days and 4mg x 5 days F/U INR: 2 weeks Patient verbalizes understanding of instructions given with accurate read back/ teach back of dosing It's all the same Anti-Coag Initial Assessment Social Hx alcohol intake: never Coding Level of Care Code Est Patient Level 1 Diagnoses Current use of anticoagulant therapy Z79.01 Time Spent (min) 15 Assessment & Plan Assessment & Plan (1) Current use of anticoagulant therapy: Code(s): Z79.01 - [facility] (current) use of anticoagulants Category: Medical
== END 2022-10-22 11:36 | disposition home or self-care (01) ==
LOC: HO.ACS 11:23
PROVIDERS: PCP Internal Medicine; Visit Provider Internal Medicine
DX: Z79.01 Long term (current) use of anticoagulants (principal)

== ENCOUNTER → 2022-10-22 11:23 | Outpatient (BNVA) | payer MEDICARE, MEDICAID, SELFPAY | PROVIDERS: PCP Internal Medicine; Visit Provider Internal Medicine | DX: Z95.2 Presence of prosthetic heart valve (principal); Z79.01 Long term (current) use of anticoagulants; Z51.81 Encounter for therapeutic drug level monitoring | CPT/HCPCS: 85610; 99211 ==

== ENCOUNTER 2022-10-29 10:59 | Outpatient (REF) | payer MEDICARE, MEDICAID, SELFPAY ==
--- NOTE | ~2022-10-29 | XR_ITS ---
EXAMINATION: XR ANKLE, LEFT CLINICAL INFORMATION: Left ankle pain. COMPARISON: None available. TECHNIQUE: AP and lateral views of the left ankle. FINDINGS: Alignment is anatomic. Ankle mortise is maintained. The talar dome is intact. No displaced fracture or dislocation. There is marked diffuse subcutaneous edema and soft tissue swelling. Small plantar calcaneal spur. XR/XR ankle LT 2V IMPRESSION: Marked diffuse subcutaneous edema and soft tissue swelling.
== END 2022-10-29 11:00 | disposition home or self-care (01) ==
LOC: HO.HMGCX 10:59
PROVIDERS: PCP Internal Medicine; Visit Provider Internal Medicine
DX: S93.402D Sprain of unspecified ligament of left ankle, subsequent encounter (principal)
CPT/HCPCS: 73600

== ENCOUNTER 2022-11-05 11:26 | Outpatient (AMB) | payer MEDICARE, MEDICAID, SELFPAY ==
[2022-11-05 11:35] LABS: Prothrombin Time Whole Bld POC 36.3 sec (11.1-13.5)
--- NOTE | 2022-11-05 11:45 | MHC.OFFVISCO ---
Intake Intake Visit Reasons: Anticoagulation Allergies No Known Allergies Allergy (Mild, Verified 11/05/22 11:27) NOT APPLICABLE Medication List - Last Reconciled 11/05/22 by Raissa Hull RN acetaminophen 500 mg PO Q6H PRN albuterol sulfate 90 mcg/actuation 2 puffs inhalation Q4H PRN 30 days atorvastatin 40 mg PO BEDTIME benztropine 0.5 mg PO BEDTIME cholecalciferol (vitamin D3) (Vitamin D3) 25 mcg PO DAILY demeclocycline 300 mg PO Q12H dicyclomine 20 mg PO BID divalproex (Depakote) 1750 MG IN DIVIDED DOSES PO; ferrous sulfate 325 mg PO DAILY fluticasone propion-salmeterol 500-50 mcg/dose (Advair Diskus) 1 ea inhalation BID folic acid 1 mg PO DAILY ketoconazole 2% topical levothyroxine 25 mcg PO DAILY magnesium oxide 400 mg PO BID etrfiqft-ipms-WH-calcium-mins 9 mg iron-400 mcg (Therapeutic-M) 1 tab PO DAILY multivitamin with folic acid 400 mcg (Daily-Stanley (with folic acid)) 1 tab PO DAILY pantoprazole 40 mg PO DAILY risperidone (Risperdal) 1.5 mg PO BEDTIME tamsulosin 0.4 mg PO DAILY 90 days thiamine mononitrate (vit B1) (Vitamin B-1 (mononitrate)) 100 mg PO BID trazodone 25 mg PO DAILY PRN Trelegy Ellipta 100-62.5-25 mcg (jlkehxpykju-rctqskmtg-zuemzsxo) 1 inh inhalation DAILY NS umeclidinium 62.5 mcg/actuation (Incruse Ellipta) 1 inh inhalation DAILY valproic acid (as sodium salt) 1,500 mg PO DAILY warfarin 4 mg See Protocol PO DAILY Nursing Note INR: 3.0 in therapeutic range Medications and supplements reviewed pt states he injured his ankle , heard and felt something snap when he stood up, hurt for about 3 weeks, walking with steady gait with cane, he had a xray 10/29/22- no fracture, still has discomfort with walking, enc to have ortho appt and ask for ct scan or MRI if pain persists, refusing shanique wrap, physical therapy or any instructions to care for his ankle at this time, enc to discuss discomfort with PCP or otho Denies any signs and symptoms of bleeding or bruising or clotting. Bleeding, bruising, clotting discussed Nutritional guidance given - eat 2 servings of greens / week Dose: keep tnba0sj x 2 days/ 4mg x 5 days F/U INR: 3 weeks Patient verbalizes understanding of instructions given Anti-Coag Initial Assessment Social Hx alcohol intake: never Questionnaires HAS-BLED Does the patient had uncontrolled Hypertension?: No Does the patient have renal disease?: Yes Does the patient have liver disease?: No Does the patient have a history of stroke?: No Has the patient had major bleeding or predisposition to bleeding?: Yes Does the patient have labile INRs?: No Is the patient over 65 years of age?: Yes Is the patient on medications that gives them a predisposition to bleeding?: Yes Does the patient use alcohol?: Yes HAS-BLED Score: 5 CHADSVASC Age: 66-74 Gender: Male Does the patient have a history of CHF?: No Does the patient have a history of Hypertension?: Yes Does the patient have a history of Stroke/TIA/Thromboembolism?: No Does the patient have a history of Vascular Disease (prior AK, PAD or aortic plaque)?: No Does the patient have a history of Diabetes?: No CHADS VACS Score: 2 Sonia Prediction Score Rsk VTE Active Cancer: No Previous VTE, excluding superficial vein thrombosis: No Reduced mobility: No Already known Thrombophilic Condition: Yes With-in last month Trauma and/or Surgery: No Elderly 70 year or older: Yes Heart and/or Respiratory Failure: No Acute Myocardial infarction and/or Ischemic Stroke: No Acute Infection and/or Rheumatologic Disorder: No Obesity (BMI 30 or greater): No Ongoing Hormonal Treatment: No Score: 4 Sonia Score less than 4; Low Risk of VTE Sonia Score 4 or greater; High Risk of VTE Coding Level of Care Code Est Patient Level 1 Diagnoses Current use of anticoagulant therapy Z79.01 Assessment & Plan Assessment & Plan (1) Current use of anticoagulant therapy: Code(s): Z79.01 - nursing home (current) use of anticoagulants Category: Medical
== END 2022-11-05 11:56 | disposition home or self-care (01) ==
LOC: HO.ACS 11:26
PROVIDERS: PCP Internal Medicine; Visit Provider Internal Medicine
DX: Z79.01 Long term (current) use of anticoagulants (principal)

== ENCOUNTER → 2022-11-05 11:26 | Outpatient (BNVA) | payer MEDICARE, MEDICAID, SELFPAY | PROVIDERS: PCP Internal Medicine; Visit Provider Internal Medicine | DX: Z95.2 Presence of prosthetic heart valve (principal); Z79.01 Long term (current) use of anticoagulants; Z51.81 Encounter for therapeutic drug level monitoring | CPT/HCPCS: 85610; 99211 ==

== ENCOUNTER 2022-11-26 11:19 | Outpatient (AMB) | payer MEDICARE, MEDICAID, SELFPAY ==
[2022-11-26 11:32] LABS: Prothrombin Time Whole Bld POC 32.8 sec (11.1-13.5); ~PT, ~INR - Anti Coag Clinic 2.7 (0.9-1.1)
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
== END 2022-11-26 11:37 | disposition home or self-care (01) ==
LOC: HO.ACS 11:19
PROVIDERS: PCP Internal Medicine; Visit Provider Internal Medicine
DX: Z79.01 Long term (current) use of anticoagulants (principal)

== ENCOUNTER → 2022-11-26 11:19 | Outpatient (BNVA) | payer MEDICARE, MEDICAID, SELFPAY | PROVIDERS: PCP Internal Medicine; Visit Provider Internal Medicine | DX: Z95.2 Presence of prosthetic heart valve (principal); Z79.01 Long term (current) use of anticoagulants; Z51.81 Encounter for therapeutic drug level monitoring | CPT/HCPCS: 85610; 99211 ==

== ENCOUNTER 2022-12-17 10:58 | Outpatient (AMB) | payer MEDICARE, MEDICAID, SELFPAY ==
[2022-12-17 11:19] LABS: Prothrombin Time Whole Bld POC 26.2 sec (11.1-13.5); ~PT, ~INR - Anti Coag Clinic 2.2 (0.9-1.1)
--- NOTE | 2022-12-17 11:23 | MHC.OFFVISCO ---
Intake Intake Visit Reasons: Anticoagulation Allergies No Known Allergies Allergy (Mild, Verified 12/17/22 11:06) NOT APPLICABLE Medication List - Last Reconciled 12/17/22 by Nivia Matthew RN acetaminophen 500 mg PO Q6H PRN albuterol sulfate 90 mcg/actuation 2 puffs inhalation Q4H PRN 30 days atorvastatin 40 mg PO BEDTIME benztropine 0.5 mg PO BEDTIME cholecalciferol (vitamin D3) (Vitamin D3) 25 mcg PO DAILY demeclocycline 300 mg PO Q12H dicyclomine 20 mg PO BID divalproex (Depakote) 1750 MG IN DIVIDED DOSES PO; ferrous sulfate 325 mg PO DAILY fluticasone propion-salmeterol 500-50 mcg/dose (Advair Diskus) 1 ea inhalation BID folic acid 1 mg PO DAILY ketoconazole 2% topical levothyroxine 25 mcg PO DAILY magnesium oxide 400 mg PO BID jcewqnua-fulb-GV-calcium-mins 9 mg iron-400 mcg (Therapeutic-M) 1 tab PO DAILY multivitamin with folic acid 400 mcg (Daily-Stanley (with folic acid)) 1 tab PO DAILY pantoprazole 40 mg PO DAILY risperidone (Risperdal) 1.5 mg PO BEDTIME tamsulosin 0.4 mg PO DAILY 90 days thiamine mononitrate (vit B1) (Vitamin B-1 (mononitrate)) 100 mg PO BID trazodone 25 mg PO DAILY PRN Trelegy Ellipta 100-62.5-25 mcg (qbqsiijskem-gsajfftsg-fgiwkdqc) 1 inh inhalation DAILY NS umeclidinium 62.5 mcg/actuation (Incruse Ellipta) 1 inh inhalation DAILY valproic acid (as sodium salt) 1,500 mg PO DAILY warfarin 4 mg See Protocol PO DAILY Nursing Note Amb to [facility] feeling ok, 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 Medications and supplements reviewed No changes in health, diet, medications, or supplements Denies any unusual signs and symptoms of bruising, bleeding Denies any new Chest pain, SOB, or clotting INR: 2.2 in therapeutic range (took 3 sticks to get sample, fingers very cold, old blister area avoided and much nicotine stg) Nutritional guidance given: balance greens and reds in diet Dose: continue usual dosing;2mg x 2days 4mg x 5 F/U INR: 4 weeks Patient verbalizes understanding of instructions given with accurate read back/ teach back of dosing Anti-Coag Initial Assessment Social Hx alcohol intake: never Coding Level of Care Code Est Patient Level 1 Diagnoses Current use of anticoagulant therapy Z79.01 Time Spent (min) 15 Assessment & Plan Assessment & Plan (1) Current use of anticoagulant therapy: Code(s): Z79.01 - [facility] (current) use of anticoagulants Category: Medical
== END 2022-12-17 11:28 | disposition home or self-care (01) ==
LOC: HO.ACS 10:58
PROVIDERS: PCP Internal Medicine; Visit Provider Internal Medicine
DX: Z79.01 Long term (current) use of anticoagulants (principal)

== ENCOUNTER → 2022-12-17 10:58 | Outpatient (BNVA) | payer MEDICARE, MEDICAID, SELFPAY | PROVIDERS: PCP Internal Medicine; Visit Provider Internal Medicine | DX: Z95.2 Presence of prosthetic heart valve (principal); Z79.01 Long term (current) use of anticoagulants; Z51.81 Encounter for therapeutic drug level monitoring | CPT/HCPCS: 85610; 99211 ==

== ENCOUNTER 2023-01-14 10:56 | Outpatient (AMB) | payer MEDICARE, MEDICAID, SELFPAY ==
[2023-01-14 11:12] LABS: Prothrombin Time Whole Bld POC 31.7 sec (11.1-13.5); ~PT, ~INR - Anti Coag Clinic 2.6 (0.9-1.1)
--- NOTE | 2023-01-14 11:18 | MHC.OFFVISCO ---
Intake Intake Visit Reasons: Anticoagulation Allergies No Known Allergies Allergy (Mild, Verified 01/14/23 11:06) NOT APPLICABLE Medication List - Last Reconciled 01/14/23 by Raissa Hull RN acetaminophen 500 mg PO Q6H PRN albuterol sulfate 90 mcg/actuation 2 puffs inhalation Q4H PRN 30 days atorvastatin 40 mg PO BEDTIME benztropine 0.5 mg PO BEDTIME cholecalciferol (vitamin D3) (Vitamin D3) 25 mcg PO DAILY demeclocycline 300 mg PO Q12H dicyclomine 20 mg PO BID divalproex (Depakote) 1750 MG IN DIVIDED DOSES PO; ferrous sulfate 325 mg PO DAILY fluticasone propion-salmeterol 500-50 mcg/dose (Advair Diskus) 1 ea inhalation BID folic acid 1 mg PO DAILY ketoconazole 2% topical levothyroxine 25 mcg PO DAILY magnesium oxide 400 mg PO BID nheepguv-djfb-ME-calcium-mins 9 mg iron-400 mcg (Therapeutic-M) 1 tab PO DAILY multivitamin with folic acid 400 mcg (Daily-Stanley (with folic acid)) 1 tab PO DAILY pantoprazole 40 mg PO DAILY risperidone (Risperdal) 1.5 mg PO BEDTIME tamsulosin 0.4 mg PO DAILY 90 days thiamine mononitrate (vit B1) (Vitamin B-1 (mononitrate)) 100 mg PO BID trazodone 25 mg PO DAILY PRN Trelegy Ellipta 100-62.5-25 mcg (eorwpuqxswg-atcpirvvp-scwpmozz) 1 inh inhalation DAILY NS umeclidinium 62.5 mcg/actuation (Incruse Ellipta) 1 inh inhalation DAILY valproic acid (as sodium salt) 1,500 mg PO DAILY warfarin 4 mg See Protocol PO DAILY Nursing Note INR: 2.6 in therapeutic range Medications and supplements reviewed No changes in health, diet, medications, or supplements, Denies any signs and symptoms of bleeding or bruising or clotting. Bleeding, bruising, clotting discussed Nutritional guidance given Dose: 2mg x 2 days/ 4mg x 5 days F/U INR: 1 month Patient verbalizes understanding of instructions given Anti-Coag Initial Assessment Social Hx alcohol intake: never Coding Level of Care Code Est Patient Level 1 Diagnoses Current use of anticoagulant therapy Z79.01 Assessment & Plan Assessment & Plan (1) Current use of anticoagulant therapy: Code(s): Z79.01 - [facility] (current) use of anticoagulants Category: Medical
== END 2023-01-14 11:20 | disposition home or self-care (01) ==
LOC: HO.ACS 10:56
PROVIDERS: PCP Internal Medicine; Visit Provider Internal Medicine
DX: Z79.01 Long term (current) use of anticoagulants (principal)

== ENCOUNTER → 2023-01-14 10:56 | Outpatient (BNVA) | payer MEDICARE, MEDICAID, SELFPAY | PROVIDERS: PCP Internal Medicine; Visit Provider Internal Medicine | DX: Z95.2 Presence of prosthetic heart valve (principal); Z79.01 Long term (current) use of anticoagulants; Z51.81 Encounter for therapeutic drug level monitoring | CPT/HCPCS: 85610; 99211 ==

== ENCOUNTER 2023-02-18 11:02 | Outpatient (AMB) | payer MEDICARE, MEDICAID, SELFPAY ==
[2023-02-18 11:08] LABS: Prothrombin Time Whole Bld POC 33.8 sec (11.1-13.5); ~PT, ~INR - Anti Coag Clinic 2.8 (0.9-1.1)
--- NOTE | 2023-02-18 11:14 | MHC.OFFVISCO ---
Intake Intake Visit Reasons: Anticoagulation Allergies No Known Allergies Allergy (Mild, Verified 02/18/23 11:03) NOT APPLICABLE Medication List - Last Reconciled 02/18/23 by Magdalena Echeverria RN acetaminophen 500 mg PO Q6H PRN albuterol sulfate 90 mcg/actuation 2 puffs inhalation Q4H PRN 30 days atorvastatin 40 mg PO BEDTIME benztropine 0.5 mg PO BEDTIME cholecalciferol (vitamin D3) (Vitamin D3) 25 mcg PO DAILY demeclocycline 300 mg PO Q12H dicyclomine 20 mg PO BID divalproex (Depakote) 1750 MG IN DIVIDED DOSES PO; ferrous sulfate 325 mg PO DAILY fluticasone propion-salmeterol 500-50 mcg/dose (Advair Diskus) 1 ea inhalation BID folic acid 1 mg PO DAILY ketoconazole 2% topical levothyroxine 25 mcg PO DAILY magnesium oxide 400 mg PO BID wkbjhdty-dgcl-JJ-calcium-mins 9 mg iron-400 mcg (Therapeutic-M) 1 tab PO DAILY multivitamin with folic acid 400 mcg (Daily-Stanley (with folic acid)) 1 tab PO DAILY pantoprazole 40 mg PO DAILY risperidone (Risperdal) 1.5 mg PO BEDTIME tamsulosin 0.4 mg PO DAILY 90 days thiamine mononitrate (vit B1) (Vitamin B-1 (mononitrate)) 100 mg PO BID trazodone 25 mg PO DAILY PRN Trelegy Ellipta 100-62.5-25 mcg (kndybbxcbsb-kjzyrajzl-odtmeqhn) 1 inh inhalation DAILY NS umeclidinium 62.5 mcg/actuation (Incruse Ellipta) 1 inh inhalation DAILY valproic acid (as sodium salt) 1,500 mg PO DAILY warfarin 4 mg See Protocol PO DAILY Nursing Note PT.DENIES ANY CP,SOB,DIET/MED CHANGES OR SX OF BLEEDING. CONTINUE PRESENT DOSE AND FOLLOW-UP IN 4 WEEKS. 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
== END 2023-02-18 11:17 | disposition home or self-care (01) ==
LOC: HO.ACS 11:02
PROVIDERS: PCP Internal Medicine; Visit Provider Internal Medicine
DX: Z79.01 Long term (current) use of anticoagulants (principal)

== ENCOUNTER → 2023-02-18 11:02 | Outpatient (BNVA) | payer MEDICARE, MEDICAID, SELFPAY | PROVIDERS: PCP Internal Medicine; Visit Provider Internal Medicine | DX: Z95.2 Presence of prosthetic heart valve (principal); Z79.01 Long term (current) use of anticoagulants; Z51.81 Encounter for therapeutic drug level monitoring | CPT/HCPCS: 85610; 99211 ==

== ENCOUNTER 2023-03-18 11:04 | Outpatient (AMB) | payer MEDICARE, MEDICAID, SELFPAY ==
[2023-03-18 11:25] LABS: Prothrombin Time Whole Bld POC 28.5 sec (11.1-13.5); ~PT, ~INR - Anti Coag Clinic 2.4 (0.9-1.1)
--- NOTE | 2023-03-18 11:49 | MHC.OFFVISCO ---
Intake Intake Visit Reasons: Anticoagulation Allergies No Known Allergies Allergy (Mild, Verified 03/18/23 11:19) NOT APPLICABLE Medication List - Last Reconciled 03/18/23 by Magdalena Echeverria RN acetaminophen 500 mg PO Q6H PRN albuterol sulfate 90 mcg/actuation 2 puffs inhalation Q4H PRN 30 days atorvastatin 40 mg PO BEDTIME benztropine 0.5 mg PO BEDTIME cholecalciferol (vitamin D3) (Vitamin D3) 25 mcg PO DAILY demeclocycline 300 mg PO Q12H dicyclomine 20 mg PO BID divalproex (Depakote) 1750 MG IN DIVIDED DOSES PO; ferrous sulfate 325 mg PO DAILY fluticasone propion-salmeterol 500-50 mcg/dose (Advair Diskus) 1 ea inhalation BID folic acid 1 mg PO DAILY ketoconazole 2% topical levothyroxine 25 mcg PO DAILY magnesium oxide 400 mg PO BID nqrqzgxx-thpl-CX-calcium-mins 9 mg iron-400 mcg (Therapeutic-M) 1 tab PO DAILY multivitamin with folic acid 400 mcg (Daily-Stanley (with folic acid)) 1 tab PO DAILY pantoprazole 40 mg PO DAILY risperidone (Risperdal) 1.5 mg PO BEDTIME tamsulosin 0.4 mg PO DAILY 90 days thiamine mononitrate (vit B1) (Vitamin B-1 (mononitrate)) 100 mg PO BID trazodone 25 mg PO DAILY PRN Trelegy Ellipta 100-62.5-25 mcg (nrxejmyfjpt-hfxqyyxrp-lyifazed) 1 inh inhalation DAILY NS umeclidinium 62.5 mcg/actuation (Incruse Ellipta) 1 inh inhalation DAILY valproic acid (as sodium salt) 1,500 mg PO DAILY warfarin 4 mg See Protocol PO DAILY Nursing Note NO CP,SOB,DIET/MED CHANGES,FALLS OR SX OF BLEEDING. CONTINUE PRESENT DOSE AND FOLLOW-UP IN 4 WEEKS. GOOD UNDERSTANDING OF DOSING INSTR. 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
== END 2023-03-18 11:50 | disposition home or self-care (01) ==
LOC: HO.ACS 11:04
PROVIDERS: PCP Internal Medicine; Visit Provider Internal Medicine
DX: Z79.01 Long term (current) use of anticoagulants (principal)

== ENCOUNTER → 2023-03-18 11:04 | Outpatient (BNVA) | payer MEDICARE, MEDICAID, SELFPAY | PROVIDERS: PCP Internal Medicine; Visit Provider Internal Medicine | DX: Z95.2 Presence of prosthetic heart valve (principal); Z51.81 Encounter for therapeutic drug level monitoring; Z79.01 Long term (current) use of anticoagulants | CPT/HCPCS: 85610; 99211 ==

== ENCOUNTER 2023-04-01 09:14 | Outpatient (AMB) | payer MEDICARE, MEDICAID, SELFPAY ==
--- NOTE | 2023-04-01 09:28 | MHC.OFFVIS ---
Intake Intake Visit Reasons: 1Y PVR Intake Note: Patient is Present for Follow Up PVR Urology Medication: Tamsulosin Antibiotic Allergies: None Blood Thinners: Warfarin PVR: 10 Allergies No Known Allergies Allergy (Mild, Verified 04/01/23 09:29) NOT APPLICABLE Medication List - Last Reconciled 04/01/23 by Viktor Holland MD acetaminophen 500 mg PO Q6H PRN albuterol sulfate 90 mcg/actuation 2 puffs inhalation Q4H PRN 30 days atorvastatin 40 mg PO BEDTIME benztropine 0.5 mg PO BEDTIME cholecalciferol (vitamin D3) (Vitamin D3) 25 mcg PO DAILY demeclocycline 300 mg PO Q12H dicyclomine 20 mg PO BID divalproex (Depakote) 1750 MG IN DIVIDED DOSES PO; ferrous sulfate 325 mg PO DAILY fluticasone propion-salmeterol 500-50 mcg/dose (Advair Diskus) 1 ea inhalation BID folic acid 1 mg PO DAILY ketoconazole 2% topical levothyroxine 25 mcg PO DAILY magnesium oxide 400 mg PO BID fbybnrii-pfgw-MW-calcium-mins 9 mg iron-400 mcg (Therapeutic-M) 1 tab PO DAILY multivitamin with folic acid 400 mcg (Daily-Stanley (with folic acid)) 1 tab PO DAILY pantoprazole 40 mg PO DAILY risperidone (Risperdal) 1.5 mg PO BEDTIME tamsulosin 0.4 mg PO DAILY 90 days thiamine mononitrate (vit B1) (Vitamin B-1 (mononitrate)) 100 mg PO BID trazodone 25 mg PO DAILY PRN Trelegy Ellipta 100-62.5-25 mcg (cmgizdnkucv-dnvcqkmlp-uhmkhuup) 1 inh inhalation DAILY NS umeclidinium 62.5 mcg/actuation (Incruse Ellipta) 1 inh inhalation DAILY valproic acid (as sodium salt) 1,500 mg PO DAILY warfarin 4 mg See Protocol PO DAILY HPI HPI Comments History of Present Illness Details Oneal is a pleasant male. Resident of [facility]. He seen for the following urologic conditions - BPH Accompanied by caregiver Background of significant bipolar and anticholinergic side effects of bladder PVR 10 cc Continue good response tamsulosin Lower urinary tract symptoms Urgency with some nocturia Stable on tamsulosin Primary concern is large right inguinal hernia which is distorting anatomy and interfering with urination Not cleared by Cardiology for hernia repair PSA - 10/08 0.6 PFSH Medical History Incarcerated right inguinal hernia Normocytic anemia Metabolic encephalopathy MSSA bacteremia History of atrial fibrillation COPD (chronic obstructive pulmonary disease) Hypothyroid Bipolar 1 disorder Surgical History History of heart surgery Social History Alcohol intake: never Review of Systems Const Denies chills and Denies fever(s) Card Reports no additional complaints and Denies syncope Resp Denies cough GI Denies abdominal pain and Denies heartburn Reports as per HPI and Denies change in libido Neuro Denies syncope Psych Denies change in libido Endo Denies change in libido Physical Exam Const General: cooperative, healthy appearing, comfortable and no acute distress Orientation/consciousness: patient oriented x3 HEENT Face and sinus: Yes normal facial exam Mouth: moist mucous membranes Neck Neck: Yes normal visual inspection, Yes full ROM and Yes trachea midline Chest Chest palpation & inspection: normal inspection of the chest Resp Effort & Inspection: normal respiratory effort, able to speak in complete sentences and no respiratory distress GI Inspection: Yes normal to inspection Back/Spine/Pelvis Cervical Spine: normal cervical lordosis Thoracic/Lumbar Spine: thoracic and lumbar spine normal to inspection Skin General skin exam: no rashes or lesions noted Neuro General: patient oriented x3, gait normal, tone normal and moves all extremities Extrem General: Yes normal to inspection and Yes capillary refill normal Office Procedures Post Void Residual Post Residual Void Post Void Residual (PVR): 10 [id number] Void Residual by ultrasound Assessment & Plan Assessment & Plan (1) Nocturia associated with benign prostatic hyperplasia: Code(s): N40.1 - Benign prostatic hyperplasia with lower urinary tract symptoms; R35.1 - Nocturia Plan 12 month follow-up PVR Orders: Orders AMB Post Void Residual by ultrasound Today N40.1 - Benign prostatic hyperplasia with lower urinary tract symptoms, R35.1 - Nocturia Medications: Refilled tamsulosin 0.4 mg PO DAILY 90 days 90 caps 3RF Patient Instructions: Imaging studies, laboratory and physical exam results were discussed and reviewed in detail. No major barriers to patient understanding were identified. An opportunity to ask questions regarding the treatment plan was provided. All questions were answered. The patient expressed understanding and agreement with the above treatment plan. The patient is aware they should contact our office by phone for worsening of their current condition or the appearance of new urologic symptoms. Compliance is encouraged with any medications and followup testing that is ordered. It is a privilege to participate in the urologic care of your patient. If you have any questions or concerns regarding treatment for the above conditions, or other urologic issues, please do not hesitate to contact me. The office telephone contact is [phone]. This note is constructed using voice recognition software. While every effort has been made to ensure accuracy die hardener errors may have been included. Yours sincerely, Dr Viktor Holland MD, [facility] - Urology Providers of Expert, Compassionate Care for the Genitourinary System Coding Level of Care Code Est Pt Level 4 (24428) Diagnoses Nocturia associated with benign prostatic hyperplasia N40.1; R35.1 CPT Codes Post Residual Void - PVR CPT Code: 83876-[id number] Void Residual by ultrasound ([id number])
== END 2023-04-01 09:55 | disposition home or self-care (01) ==
LOC: HO.HUSH 09:14
PROVIDERS: PCP Internal Medicine; Visit Provider Urology
DX: N40.1 Benign prostatic hyperplasia with lower urinary tract symptoms (principal); R35.1 Nocturia
CPT/HCPCS: 99214

== ENCOUNTER → 2023-04-01 09:14 | Outpatient (BNVA) | payer MEDICARE, MEDICAID, SELFPAY | PROVIDERS: PCP Internal Medicine; Visit Provider Urology | DX: N40.1 Benign prostatic hyperplasia with lower urinary tract symptoms (principal); R35.1 Nocturia | CPT/HCPCS: 51798; 99212 ==

== ENCOUNTER 2023-04-15 11:08 | Outpatient (AMB) | payer MEDICARE, MEDICAID, SELFPAY ==
[2023-04-15 11:28] LABS: ~PT, ~INR - Anti Coag Clinic 1.7 (0.9-1.1)
--- NOTE | 2023-04-15 11:37 | MHC.OFFVISCO ---
Intake Intake Visit Reasons: Anticoagulation Allergies No Known Allergies Allergy (Mild, Verified 04/15/23 11:24) NOT APPLICABLE Medication List - Last Reconciled 04/15/23 by Nivia Beaver RN acetaminophen 500 mg PO Q6H PRN albuterol sulfate 90 mcg/actuation 2 puffs inhalation Q4H PRN 30 days atorvastatin 40 mg PO BEDTIME benztropine 0.5 mg PO BEDTIME cholecalciferol (vitamin D3) (Vitamin D3) 25 mcg PO DAILY demeclocycline 300 mg PO Q12H dicyclomine 20 mg PO BID divalproex (Depakote) 1750 MG IN DIVIDED DOSES PO; ferrous sulfate 325 mg PO DAILY fluticasone propion-salmeterol 500-50 mcg/dose (Advair Diskus) 1 ea inhalation BID errkzxyzrxg-weqmmktlz-tsuwkswb 100-62.5-25 mcg (Trelegy Ellipta) 1 ea inhalation DAILY folic acid 1 mg PO DAILY ketoconazole 2% topical levothyroxine 25 mcg PO DAILY magnesium oxide 400 mg PO BID zgvjypzw-dvbf-QU-calcium-mins 9 mg iron-400 mcg (Therapeutic-M) 1 tab PO DAILY multivitamin with folic acid 400 mcg (Daily-Stanley (with folic acid)) 1 tab PO DAILY pantoprazole 40 mg PO DAILY risperidone (Risperdal) 1.5 mg PO BEDTIME tamsulosin 0.4 mg PO DAILY 90 days thiamine mononitrate (vit B1) (Vitamin B-1 (mononitrate)) 100 mg PO BID trazodone 25 mg PO DAILY PRN umeclidinium 62.5 mcg/actuation (Incruse Ellipta) 1 inh inhalation DAILY valproic acid (as sodium salt) 1,500 mg PO DAILY warfarin 4 mg See Protocol PO DAILY Nursing Note PT STATES NO UNUSUAL BLEEDING OR BRUISING. NO CHANGES IN HEALTH STATUS. NO CHEST PAIN OR SOB. INR 1.7 LOW (RANGE 2-3). PT WILL TAKE 6 MG TODAY (INSTEAD OF USUSAL DOSE OF 4MG) THEN TO RESUME REGULAR DOSE SCHEDULE. PT WILL HAVE GLENROY FRANNY AND GRAPES TODAY AND INSTRUCTED TO HAVE NO CHOCOLATE. MENTAL HEALTH AIDE ACCOMPANYING PT STATED HAS BEEN HAVING A LOT OF CHOCOLATE LATELY. PT AND AIDE VERBALIZE UNDERSTANDING OF INSTRUCTIONS. TO F/U IN 2 WEEKS. 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
== END 2023-04-15 11:43 | disposition home or self-care (01) ==
LOC: HO.ACS 11:08
PROVIDERS: PCP Internal Medicine; Visit Provider Internal Medicine
DX: Z79.01 Long term (current) use of anticoagulants (principal)

== ENCOUNTER → 2023-04-15 11:08 | Outpatient (BNVA) | payer MEDICARE, MEDICAID, SELFPAY | PROVIDERS: PCP Internal Medicine; Visit Provider Internal Medicine | DX: Z95.2 Presence of prosthetic heart valve (principal); Z79.01 Long term (current) use of anticoagulants; Z51.81 Encounter for therapeutic drug level monitoring | CPT/HCPCS: 85610; 99211 ==

== ENCOUNTER 2023-05-06 11:46 | Outpatient (REF) | payer MEDICARE, MEDICAID, SELFPAY ==
[2023-05-06 14:13] LABS: MANUAL DIFF FLAG NO
[2023-05-06 14:23] LABS: Basophils Percent Auto 0.2 % (0-2); Eosinophils Percent Auto 0.5 % (0-4); Hematocrit 34.3 % (42.0-52.0); Hemoglobin 11.3 g/dl (14.0-18.0); Imm Gran Abs Auto 0.03 X10*3/uL (0.00-0.03); Imm Gran Pct Auto 0.4 % (0.0-0.4); Lymphocytes Absolute Auto 0.6 X10*3/uL (1.2-4.9); Lymphocytes Percent Auto 7.7 % (20-40); Mean Corpuscular HGB Conc 32.9 g/dl (31.0-36.0); Mean Corpuscular Hemoglobin 29.7 pg (27.0-33.0); Mean Platelet Volume 9.7 fL (9.4-12.4); Monocytes Absolute Auto 0.5 X10*3/uL (0.1-1.2); Monocytes Percent Auto 6.1 % (2-11); Neutrophils Percent Auto 85.1 % (45-73); Platelet Count 328 X10*3/uL (160-400); Red Blood Count 3.81 X10*6/uL (4.60-5.80); Red Cell Distribution Width 16.8 % (11.0-16.0); White Blood Count 8.3 X10*3/uL (4.8-10.8)
[2023-05-06 14:41] LABS: Alanine Aminotransferase 15 U/L (0-40); Albumin Level 3.8 g/dL (3.5-5.0); Alkaline Phosphatase 90 U/L (39-117); Anion Gap 12 (12-20); Aspartate Amino Transferase 23 U/L (5-37); Bilirubin Total 0.3 mg/dL (0.0-1.0); Blood Urea Nitrogen 33 mg/dL (9-16); Calcium 9.1 mg/dL (8.4-10.2); Carbon Dioxide 24 mmol/L (22-29); Chloride 105 mmol/L (96-108); Cholesterol 166 mg/dL (<200); Estimated Glomerular Filt Rate 44; Glucose Random 110 mg/dL (60-115); HDL Cholesterol 60 mg/dL (>40); Iron 53 mcg/dL (45-160); LDL Cholesterol Calculated 94 mg/dL (<100); Percent Iron Saturation 21 % (15-50); Potassium 4.3 mmol/L (3.3-5.1); Sodium 137 mmol/L (135-145); Total Iron Binding Capacity 254 mcg/dL (228-428); Total Protein 7.5 g/dL (6.5-8.0); Triglycerides 61 mg/dL (<150); Unsaturated Iron Binding 201 ug/dL
[2023-05-06 14:58] LABS: TSH reflex Free T4 1.04 uIU/mL (0.32-4.0)
== END 2023-05-06 11:47 | disposition home or self-care (01) ==
LOC: HO.CHCLDS 11:46
PROVIDERS: Visit Provider Internal Medicine
DX: D50.8 Other iron deficiency anemias (principal); E03.9 Hypothyroidism, unspecified; E78.2 Mixed hyperlipidemia; Z95.2 Presence of prosthetic heart valve; Z51.81 Encounter for therapeutic drug level monitoring; Z79.01 Long term (current) use of anticoagulants
CPT/HCPCS: 36415; 80053; 80061; 83540; 84443; 85025; 85610; 99211

== ENCOUNTER 2023-05-06 13:09 | Outpatient (AMB) | payer MEDICARE, MEDICAID, SELFPAY ==
[2023-05-06 13:36] LABS: Prothrombin Time Whole Bld POC 19.2 sec (11.1-13.5); ~PT, ~INR - Anti Coag Clinic 1.6 (0.9-1.1)
--- NOTE | 2023-05-06 13:51 | MHC.OFFVISCO ---
Intake Intake Visit Reasons: Anticoagulation Allergies No Known Allergies Allergy (Mild, Verified 05/06/23 13:28) NOT APPLICABLE Medication List - Last Reconciled 05/06/23 by Nivia Matthew RN acetaminophen 500 mg PO Q6H PRN albuterol sulfate 90 mcg/actuation 2 puffs inhalation Q4H PRN 30 days atorvastatin 40 mg PO BEDTIME benztropine 0.5 mg PO BEDTIME cholecalciferol (vitamin D3) (Vitamin D3) 25 mcg PO DAILY demeclocycline 300 mg PO Q12H dicyclomine 20 mg PO BID divalproex (Depakote) 1750 MG IN DIVIDED DOSES PO; ferrous sulfate 325 mg PO DAILY fluticasone propion-salmeterol 500-50 mcg/dose (Advair Diskus) 1 ea inhalation BID yhhhzwlowig-mfzqvzzhd-jggukwen 100-62.5-25 mcg (Trelegy Ellipta) 1 ea inhalation DAILY folic acid 1 mg PO DAILY ketoconazole 2% topical levothyroxine 25 mcg PO DAILY magnesium oxide 400 mg PO BID uhsenbsa-ikpd-GF-calcium-mins 9 mg iron-400 mcg (Therapeutic-M) 1 tab PO DAILY multivitamin with folic acid 400 mcg (Daily-Stanley (with folic acid)) 1 tab PO DAILY pantoprazole 40 mg PO DAILY risperidone (Risperdal) 1.5 mg PO BEDTIME tamsulosin 0.4 mg PO DAILY 90 days thiamine mononitrate (vit B1) (Vitamin B-1 (mononitrate)) 100 mg PO BID trazodone 25 mg PO DAILY PRN umeclidinium 62.5 mcg/actuation (Incruse Ellipta) 1 inh inhalation DAILY valproic acid (as sodium salt) 1,500 mg PO DAILY warfarin 4 mg See Protocol PO DAILY Nursing Note Amb to [facility] occassionally using cane, accomp by BUSINESS SOLUTION ANALYST feeling ok s/p covid infection no antivirals Medications and supplements reviewed ? not taking divalproex (depakote) however he is on valporic acid No other changes in health, diet, medications, or supplements Denies any unusual signs and symptoms of bruising, bleeding Denies any new Chest pain, SOB, or clotting INR: 1.6 lower than last visit 3 weeks ago, meds are given by staff using med cup, so denies missed doses Nutritional guidance given: no greens, no milk chocolate try reds to raise Dose: increase dose today to 6mg and Wednesday to 4mg, weekly dosing will increase to 2mg x 1 day and 4mg x 6 days (vs 2mg x 2 days and 4mg x 5 days) F/U INR: 1 week Patient/ BUSINESS SOLUTION ANALYST verbalizes understanding of instructions given with accurate read back/ teach back of dosing Anti-Coag Initial Assessment Social Hx alcohol intake: never Coding Level of Care Code Est Patient Level 1 Diagnoses Current use of anticoagulant therapy Z79.01 Time Spent (min) 20 Assessment & Plan Assessment & Plan (1) Current use of anticoagulant therapy: Code(s): Z79.01 - 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
== END 2023-05-06 16:09 | disposition home or self-care (01) ==
LOC: HO.ACS 13:09
PROVIDERS: PCP Internal Medicine; Visit Provider Internal Medicine
DX: Z79.01 Long term (current) use of anticoagulants (principal)

== ENCOUNTER 2023-05-14 14:00 | Outpatient (AMB) | payer MEDICARE, MEDICAID, SELFPAY ==
[2023-05-14 14:08] LABS: ~PT, ~INR - Anti Coag Clinic 2.4 (0.9-1.1)
--- NOTE | 2023-05-14 14:09 | MHC.OFFVISCO ---
Intake Intake Visit Reasons: Anticoagulation Allergies No Known Allergies Allergy (Mild, Verified 05/14/23 14:01) NOT APPLICABLE Medication List - Last Reconciled 05/14/23 by Nivia Matthew RN acetaminophen 500 mg PO Q6H PRN albuterol sulfate 90 mcg/actuation 2 puffs inhalation Q4H PRN 30 days atorvastatin 40 mg PO BEDTIME benztropine 0.5 mg PO BEDTIME cholecalciferol (vitamin D3) (Vitamin D3) 25 mcg PO DAILY demeclocycline 300 mg PO Q12H dicyclomine 20 mg PO BID divalproex (Depakote) 1750 MG IN DIVIDED DOSES PO; ferrous sulfate 325 mg PO DAILY fluticasone propion-salmeterol 500-50 mcg/dose (Advair Diskus) 1 ea inhalation BID wqchpoahsxr-phlkayznt-vyonohlb 100-62.5-25 mcg (Trelegy Ellipta) 1 ea inhalation DAILY folic acid 1 mg PO DAILY ketoconazole 2% topical levothyroxine 25 mcg PO DAILY magnesium oxide 400 mg PO BID pipzezdo-urps-VL-calcium-mins 9 mg iron-400 mcg (Therapeutic-M) 1 tab PO DAILY multivitamin with folic acid 400 mcg (Daily-Stanley (with folic acid)) 1 tab PO DAILY pantoprazole 40 mg PO DAILY risperidone (Risperdal) 1.5 mg PO BEDTIME tamsulosin 0.4 mg PO DAILY 90 days thiamine mononitrate (vit B1) (Vitamin B-1 (mononitrate)) 100 mg PO BID trazodone 25 mg PO DAILY PRN umeclidinium 62.5 mcg/actuation (Incruse Ellipta) 1 inh inhalation DAILY valproic acid (as sodium salt) 1,500 mg PO DAILY warfarin 4 mg See Protocol PO DAILY Nursing Note Amb to [facility] feeling ok, noted not accomp by VARNISH MELTER today Medications and supplements reviewed No changes in health, diet, medications, or supplements Denies any unusual signs and symptoms of bruising, bleeding Denies any new Chest pain, SOB, or clotting INR: 2.4 now in therapeutic range Nutritional guidance given: balance greens and reds in diet Dose: continue usual dosing; 2mg x 2 days and 4mg x 5 days F/U INR: 2 weeks Patient verbalizes understanding of instructions given with accurate read back/ teach back of dosing Anti-Coag Initial Assessment Social Hx alcohol intake: never Coding Level of Care Code Est Patient Level 1 Diagnoses Current use of anticoagulant therapy Z79.01 Time Spent (min) 15 Assessment & Plan Assessment & Plan (1) Current use of anticoagulant therapy: Code(s): 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
== END 2023-05-14 15:02 | disposition home or self-care (01) ==
LOC: HO.ACS 14:00
PROVIDERS: PCP Internal Medicine; Visit Provider Internal Medicine
DX: Z79.01 Long term (current) use of anticoagulants (principal)

== ENCOUNTER → 2023-05-14 14:00 | Outpatient (BNVA) | payer MEDICARE, MEDICAID, SELFPAY | PROVIDERS: PCP Internal Medicine; Visit Provider Internal Medicine | DX: Z95.2 Presence of prosthetic heart valve (principal); Z79.01 Long term (current) use of anticoagulants; Z51.81 Encounter for therapeutic drug level monitoring | CPT/HCPCS: 85610; 99211 ==

== ENCOUNTER → 2023-05-24 11:54 | Outpatient (BNVA) | payer MEDICARE, MEDICAID, SELFPAY | PROVIDERS: PCP Internal Medicine; Visit Provider Internal Medicine ==

== ENCOUNTER 2023-05-27 11:22 | Outpatient (AMB) | payer MEDICARE, MEDICAID, SELFPAY ==
[2023-05-27 11:32] LABS: Prothrombin Time Whole Bld POC 27.3 sec (11.1-13.5); ~PT, ~INR - Anti Coag Clinic 2.3 (0.9-1.1)
--- NOTE | 2023-05-27 11:50 | MHC.OFFVISCO ---
Intake Intake Visit Reasons: Anticoagulation Allergies No Known Allergies Allergy (Mild, Verified 05/27/23 11:30) NOT APPLICABLE Medication List - Last Reconciled 05/27/23 by Magdalena Echeverria RN acetaminophen 500 mg PO Q6H PRN albuterol sulfate 90 mcg/actuation 2 puffs inhalation Q4H PRN 30 days atorvastatin 40 mg PO BEDTIME benztropine 0.5 mg PO BEDTIME cholecalciferol (vitamin D3) (Vitamin D3) 25 mcg PO DAILY demeclocycline 300 mg PO Q12H dicyclomine 20 mg PO BID divalproex (Depakote) 1750 MG IN DIVIDED DOSES PO; ferrous sulfate 325 mg PO DAILY fluticasone propion-salmeterol 500-50 mcg/dose (Advair Diskus) 1 ea inhalation BID rhrevtrzpmu-yyrdbzufc-wmqsrdlm 100-62.5-25 mcg (Trelegy Ellipta) 1 ea inhalation DAILY folic acid 1 mg PO DAILY ketoconazole 2% topical levothyroxine 25 mcg PO DAILY magnesium oxide 400 mg PO BID ydtffgex-lejq-UF-calcium-mins 9 mg iron-400 mcg (Therapeutic-M) 1 tab PO DAILY multivitamin with folic acid 400 mcg (Daily-Stanley (with folic acid)) 1 tab PO DAILY pantoprazole 40 mg PO DAILY risperidone (Risperdal) 1.5 mg PO BEDTIME tamsulosin 0.4 mg PO DAILY 90 days thiamine mononitrate (vit B1) (Vitamin B-1 (mononitrate)) 100 mg PO BID trazodone 25 mg PO DAILY PRN umeclidinium 62.5 mcg/actuation (Incruse Ellipta) 1 inh inhalation DAILY valproic acid (as sodium salt) 1,500 mg PO DAILY warfarin 4 mg See Protocol PO DAILY Nursing Note PT.HERE TODAY WITH APPLICATION DEVELOPMENT SPECIALIST WHO STATES THAT PT.HAS BEEN REFUSING TO EAT AND IS BECOMING MORE ERRATIC AND BELLIGERANT. RESPERIDOL,DEPAKOTE AND TRAZODONE ARE ON HOLD OR DC'D RECENTLY. HE HAS AGREED TO CONTINUE THE WARFARIN DIRECTED. APPLICATION DEVELOPMENT SPECIALIST STATES THAT SHE IS COMFORTABLE WITH PT.TODAY, AND IS ABLE TO TRANSPORT HIM HOME AFTER [facility] VISIT. PT.CLEARLY HAS LOST MORE WEIGHT, AND CONVERSATION IS FRAGMENTED AND RAMBLING TODAY. 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
== END 2023-05-27 12:09 | disposition home or self-care (01) ==
LOC: HO.ACS 11:22
PROVIDERS: PCP Internal Medicine; Visit Provider Internal Medicine
DX: Z79.01 Long term (current) use of anticoagulants (principal)

== ENCOUNTER → 2023-05-27 11:22 | Outpatient (BNVA) | payer MEDICARE, MEDICAID, SELFPAY | PROVIDERS: PCP Internal Medicine; Visit Provider Internal Medicine | DX: Z95.2 Presence of prosthetic heart valve (principal); Z79.01 Long term (current) use of anticoagulants; Z51.81 Encounter for therapeutic drug level monitoring | CPT/HCPCS: 85610; 99211 ==

== ENCOUNTER 2023-06-01 14:26 | Emergency (ER) | payer MEDICARE, MEDICAID, SELFPAY ==
[2023-06-01 15:01] VITALS: BP 170/63; PULSE 83; RESP 19; TEMP 36.6; O2SAT 98; BMI 25.1
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
--- NOTE | 2023-06-01 16:17 | MHC.EDTECH ---
patient refused blood work or any care at this time
--- NOTE | 2023-06-01 16:50 | PC.NURSE ---
provider at bedside speaking with patient, pt is currently refusing blood work and the provider is ok with that, the provider spoke with the pt's psychiatrist and the pt has not taken his medications is years abd nothing has changed about it plan to [facility] the pt [facility] to the [facility]
[2023-06-01 16:57] VITALS: BP 148/70; PULSE 92; RESP 20; TEMP 36.6; O2SAT 96
--- NOTE | 2023-06-01 17:00 | PC.NURSE ---
called the correction, but at this time no answer
--- NOTE | 2023-06-01 17:03 | PC.NURSE ---
called the supervisor briar shop information assurance engineer still no answer at this time, left a message
--- NOTE | 2023-06-01 18:44 | PC.NURSE ---
called the half-way again and spoke to [facility] staff and plan to book a ambulance ride back to the half-way
== END 2023-06-01 22:15 | disposition home or self-care (01) ==
PROVIDERS: Emergency Provider Student in an Organized Health Care Education/Training Program
DX: F20.9 Schizophrenia, unspecified (principal); F91.9 Conduct disorder, unspecified; Z91.148 Patient's other noncompliance with medication regimen for other reason; Z79.899 Other long term (current) drug therapy; Z79.01 Long term (current) use of anticoagulants
CPT/HCPCS: 99283; 99284

== ENCOUNTER 2023-06-03 18:25 | Inpatient (IN) | payer MEDICARE, MEDICAID, SELFPAY ==
[2023-06-03 18:32] VITALS: BP 140/78; PULSE 99; O2SAT 99
[2023-06-03 18:51] VITALS: BP 158/78; PULSE 74; RESP 16; TEMP 36.9; O2SAT 96; BMI 24.7
--- NOTE | 2023-06-03 19:04 | MHC.CM.ED ---
Pt has a HCP on [facility] on file. HCP/nephew Ty Montelongo ([phone]). [facility] DNR/DNI, no dialysis, no artificial nutrition. Yes to CPAP, transfer to hospital and artificial Hydration. Pt lives in a detention. Was in [facility] ED 05/31. See Medical record. Returned to detention. Work up pending.
--- NOTE | 2023-06-03 19:55 | ED.GENADULT ---
HPI - General Adult General Chief complaint: General Medical Stated complaint: found walking nude in public, non med compliant Source: EMS Mode of arrival: EMS Limitations: altered mental status History of Present Illness HPI narrative: patient comes to the emergency room via ambulance and on a Section 12 that was started in the community by PD. Seems that earlier today, patient walked out of his long-term, walked fully naked into a business, stating that his alcohol bone and stating that he was in [place]. At this time, patient is awake, alert, patient states that he does not know why he is here. Patient denies any falls, any pain. Related Data Home Medications Medication Instructions Recorded Confirmed atorvastatin 40 mg tablet 40 mg PO BEDTIME 01/03/20 05/14/23 demeclocycline 300 mg tablet 300 mg PO Q12H 01/03/20 05/14/23 levothyroxine 25 mcg tablet 25 mcg PO DAILY 01/03/20 05/14/23 magnesium oxide 400 mg PO BID 01/03/20 05/14/23 pantoprazole 40 mg tablet,delayed 40 mg PO DAILY 01/03/20 05/14/23 release valproic acid (as sodium salt) 250 1,500 mg PO DAILY 03/20/20 05/14/23 mg/5 mL oral solution trazodone 50 mg tablet 25 mg PO DAILY PRN Insomnia 05/15/20 05/14/23 benztropine 0.5 mg tablet 0.5 mg PO BEDTIME 10/22/20 05/14/23 dicyclomine 20 mg tablet 20 mg PO BID 10/22/20 05/14/23 multivitamin-iron 9 mg-folic acid 1 tab PO DAILY 12/16/20 05/14/23 400 mcg-calcium and minerals tablet (Therapeutic-M) acetaminophen 500 mg tablet 500 mg PO Q6H PRN 06/25/21 05/14/23 divalproex [Depakote] See Rx Instructions PO .COMPLEX 06/25/21 05/14/23 ketoconazole 2 % shampoo topical 06/25/21 05/14/23 multivitamin with folic acid 400 1 tab PO DAILY 09/24/21 05/14/23 mcg tablet (Daily-Stanley (with folic acid)) risperidone 1 mg tablet (Risperdal) 1.5 mg PO BEDTIME 10/29/21 05/14/23 cholecalciferol (vitamin D3) 25 25 mcg PO DAILY 10/31/21 05/14/23 mcg (1,000 unit) tablet (Vitamin D3) thiamine mononitrate (vit B1) 100 100 mg PO BID 10/31/21 05/14/23 mg tablet (Vitamin B-1 (mononitrate)) fluticasone 500 mcg-salmeterol 50 1 ea inhalation BID 03/04/22 05/14/23 mcg/dose blistr powdr for inhalation (Advair Diskus) umeclidinium 62.5 mcg/actuation 1 inh inhalation DAILY 03/04/22 05/14/23 blister powder for inhalation (Incruse Ellipta) warfarin 2 mg tablet 4 mg PO DAILY 05/18/22 05/27/23 Previous Rx's Medication Instructions Recorded folic acid 1 mg tablet 1 mg PO DAILY #60 tabs 10/29/20 albuterol sulfate 90 mcg/actuation 2 puff inhalation Q4H PRN 11/21/21 aerosol inhaler shortness of breath or wheezing 30 days #8.5 grams tamsulosin 0.4 mg capsule 0.4 mg PO DAILY 90 days #90 caps 04/01/23 fluticasone fur. 100 mcg-umeclid 1 ea inhalation DAILY #60 ea 04/05/23 62.5 mcg-vilant 25 mcg inhalat.powder (Trelegy Ellipta) ferrous sulfate 325 mg (65 mg 325 mg PO DAILY #90 tabs 04/06/23 iron) tablet Allergies Allergy/AdvReac Type Severity Reaction Status Date / Time No Known Allergies Allergy Mild NOT Verified 06/03/23 18:57 APPLICABLE Review of Systems Review of Systems: Yes Other ( Dementia) [facility] Past Medical History Medical History Incarcerated right inguinal hernia Normocytic anemia Metabolic encephalopathy MSSA bacteremia History of atrial fibrillation COPD (chronic obstructive pulmonary disease) Hypothyroid Bipolar 1 disorder Surgical History History of heart surgery Social History Social History Alcohol intake: never Advance Directives: No Advance Directives Information Provided: No Physical Exam ED Vital Signs: Vital Signs - 24 hr 06/03/23 18:51 06/03/23 19:58 06/04/23 02:16 Temperature 98.4 F 98.7 F 99.5 F Pulse Rate 74 82 75 Respiratory Rate 16 14 16 Blood Pressure 158/78 H 134/57 L 135/72 Pulse Oximetry 96 99 97 Oxygen Delivery Method Room Air Room Air Room Air BMI result Body Mass Index 24.7 Const Other: Appearance: Alert. Oriented X1. No acute distress. Eyes: Pupils equal, round and reactive to light. ENT: Pharynx normal. Neck: Normal inspection. Neck supple. No lymph nodes noted. No crepitus CVS: Normal heart rate and rhythm. Pulses normal. Normal S1 and S2 Respiratory: No respiratory distress. Breath sounds normal. No Wheezing. No rales Abdomen: Soft and nontender. No rigidity. No distention. : Patient has a very large inguinal hernia, the scrotum is significantly large. The hernia is reducible, not incarcerated, chronic. Patient states that he has no pain at all Skin: Skin warm and dry. Normal skin color. Normal skin turgor. Extremities: No lower extremity edema. No Lacerations. No Rash Neuro: Oriented X 1. No motor deficit. No sensory deficit. Moving all extremities. No slurred speech. CN 2 through 12 grossly intact Psych: calm, cooperative, normal affect Course Course Course Narrative: - I was informed by the patient's nurse and tech that the patient is refusing blood. - Patient's nurse called the patient's long-term, they are aware that the patient does have a tendency of refusing blood work. We are waiting for urine. Medical Decision Making Medical Decision Making MDM Narrative: - patient's hematology at baseline, chemistry at baseline - patient has not urinated yet, urinalysis pending. - patient lives in a long-term, patient's nurse called and asked the patient's current living situation. Patient has no restrictions to leave the house, The only redirection that the patient gets is if he becomes violent. The long-term staff can not control if the patient leaves the house or not. Patient is alert and oriented x1, his current housing situation is safe. Case management consult pending, patient may need more care. - Please follow-up urinalysis - sign-out given to my colleague Dr. Cowart Differential Diagnosis Differential Diagnoses: The differential diagnosis associated with the presentation includes ( dementia, UTI, sundowning) Admission/Observation Consideration of admission/observation: Escalation of care including admission/observation considered ( patient is under physician observation. Case management consult pending) Lab Data MDM Lab Attestation statement: I reviewed the patient's lab results. 06/04/23 02:14 06/04/23 02:14 Labs: Lab Results 06/04/23 Range/Units 02:14 WBC 7.6 (4.8-10.8) X10*3/uL RBC 3.74 L (4.60-5.80) X10*6/uL Hgb 11.1 L (14.0-18.0) g/dl Hct 34.0 L (42.0-52.0) % MCV 90.9 (80.0-98.0) fL MCH 29.7 (27.0-33.0) pg MCHC 32.6 (31.0-36.0) g/dl RDW 16.1 H (11.0-16.0) % Plt Count 341 (160-400) X10*3/uL MPV 9.5 (9.4-12.4) fL Immature Gran % (Auto) 0.3 (0.0-0.4) % Neut % (Auto) 71.6 (45-73) % Lymph % (Auto) 16.1 L (20-40) % [place] % (Auto) 10.7 (2-11) % Eos % (Auto) 0.9 (0-4) % Baso % (Auto) 0.4 (0-2) % Lymph # (Auto) 1.2 (1.2-4.9) X10*3/uL [place] # (Auto) 0.8 (0.1-1.2) X10*3/uL Eos # (Auto) 0.1 (0.0-0.4) X10*3/uL Baso # (Auto) 0.0 (0.0-0.2) X10*3/uL Abs Immat Gran (auto) 0.02 (0.00-0.03) X10*3/uL Absolute Neuts (auto) 5.4 (2.0-8.3) x10*3/uL Absolute Nucleated RBC 0.000 (0.0-0.012) X10*3/uL Nucleated RBC % (auto) 0.0 (0.0-0.2) /100WBC Sodium 142 (135-145) mmol/L Potassium 4.7 (3.3-5.1) mmol/L Chloride 108 (96-108) mmol/L Carbon Dioxide 23 (22-29) mmol/L Anion Gap 16 (12-20) BUN 29 H (9-16) mg/dL Creatinine 1.43 H (0.5-1.4) mg/dL Estim Creat Clear Calc 52.7 Estimated GFR 49 Random Glucose 95 (60-115) mg/dL Calcium 9.3 (8.4-10.2) mg/dL Total Bilirubin 0.4 (0.0-1.0) mg/dL Direct Bilirubin 0.2 (0.0-0.5) mg/dL AST 33 (5-37) U/L ALT 18 (0-40) U/L Alkaline Phosphatase 91 (39-117) U/L Ammonia 35 (13-55) umol/L Total Protein 6.8 (6.5-8.0) g/dL Albumin 3.6 (3.5-5.0) g/dL Ethyl Alcohol < 10 mg/dL Critical Care Time Critical Care Time Critical Care Time: Yes Total Critical Care Time: 30 Attestation: I have personally provided critical care time. Time includes review of lab data, radiology results, discussion with consultants, and monitoring for potential decompensation. Intervention performed as documented. Discharge Plan Discharge Clinical Impression: Dementia Patient Disposition: Still a Patient Prescriptions: No Action warfarin 2 mg tablet 4 mg PO DAILY Protocol: Dose Management Condition: Wednesday (Week One) Dose/Route: 2 mg Instruction: 1 x 2 mg tablet Condition: Wednesday Dose/Route: 4 mg Instruction: 2 x 2 mg tablets Condition: Wednesday Dose/Route: 4 mg Instruction: 2 x 2 mg tablets Condition: Wednesday Dose/Route: 2 mg Instruction: 1 x 2 mg tablet Condition: Dose/Route: 4 mg Instruction: 2 x 2 mg tablets Condition: Wednesday Dose/Route: 4 mg Instruction: 2 x 2 mg tablets Condition: Wednesday Dose/Route: 4 mg Instruction: 2 x 2 mg tablets Condition: Wednesday (Week Two) Dose/Route: 2 mg Instruction: 1 x 2 mg tablet Condition: Wednesday Dose/Route: 4 mg Instruction: 2 x 2 mg tablets Condition: Wednesday Dose/Route: 4 mg Instruction: 2 x 2 mg tablets Condition: Wednesday Dose/Route: 2 mg Instruction: 1 x 2 mg tablet Condition: Dose/Route: 4 mg Instruction: 2 x 2 mg tablets Condition: Wednesday Dose/Route: 4 mg Instruction: 2 x 2 mg tablets Condition: Wednesday Dose/Route: 4 mg Instruction: 2 x 2 mg tablets Protocol Text: Adjustment Start Date: 05/27/23 INR Value: 2.3 INR Date: 05/27/23 Recheck Date: 06/17/23 Mick Barrerata 100-62.5-25 mcg blister with device 1 ea inhalation DAILY Qty: 60 6RF ferrous sulfate 325 mg (65 mg iron) Tablet 325 mg PO DAILY Qty: 90 3RF atorvastatin 40 mg Tablet 40 mg PO BEDTIME levothyroxine 25 mcg Tablet 25 mcg PO DAILY pantoprazole 40 mg Tablet,Delayed Release (Dr/Ec) 40 mg PO DAILY demeclocycline [Declomycin] 300 mg Tablet 300 mg PO Q12H magnesium oxide 400 mg magnesium Capsule 400 mg PO BID folic acid 1 mg Tablet 1 mg PO DAILY Qty: 60 5RF valproic acid (as sodium salt) 250 mg/5 mL solution 1,500 mg PO DAILY trazodone 50 mg tablet 25 mg PO DAILY PRN (Reason: Insomnia) benztropine 0.5 mg tablet 0.5 mg PO BEDTIME dicyclomine 20 mg tablet 20 mg PO BID thiamine mononitrate (vit B1) [Vitamin B-1 (mononitrate)] 100 mg tablet 100 mg PO BID cholecalciferol (vitamin D3) [Vitamin D3] 25 mcg (1,000 unit) tablet 25 mcg PO DAILY Therapeutic-M 9 mg iron-400 mcg tablet 1 tab PO DAILY albuterol sulfate 90 mcg/actuation HFA aerosol inhaler 2 puff inhalation Q4H PRN (Reason: shortness of breath or wheezing) 30 Days Qty: 8.5 6RF acetaminophen 500 mg tablet 500 mg PO Q6H PRN ketoconazole 2 % shampoo topical divalproex [Depakote] See Rx Instructions PO .COMPLEX Rx Instructions: 1750 MG IN DIVIDED DOSES PO; multivitamin with folic acid [Daily-Stanley (with folic acid)] 400 mcg tablet 1 tab PO DAILY Incruse Ellipta 62.5 mcg/actuation blister with device 1 inh inhalation DAILY fluticasone propion-salmeterol [Advair Diskus] 500-50 mcg/dose blister with device 1 ea inhalation BID risperidone [Risperdal] 1 mg tablet 1.5 mg PO BEDTIME tamsulosin 0.4 mg capsule 0.4 mg PO DAILY 90 Days Qty: 90 3RF
[2023-06-03 19:58] VITALS: BP 134/57; PULSE 82; RESP 14; TEMP 37.1; O2SAT 99
--- NOTE | 2023-06-03 20:00 | MHC.EDTECH ---
patient refuses blood work
--- NOTE | 2023-06-03 20:06 | PC.NURSE ---
called [facility] [place] intermediate, per employee residents are allowed to be independent unless they're a threat to themselves or others . Let provider know.
--- NOTE | 2023-06-03 21:00 | MHC.EDTECH ---
patient refuses to give urine
--- NOTE | 2023-06-03 22:06 | MHC.EDTECH ---
patient refusing vitals
--- NOTE | 2023-06-04 | ECG_ITS ---
Test Reason : ADMIT TO FLOOR Blood Pressure : / mmHG Vent. Rate : 072 BPM Atrial Rate : 072 BPM P-R Int : 236 ms QRS Dur : 104 ms QT Int : 414 ms P-R-T Axes : 080 062 076 degrees QTc Int : 453 ms Sinus rhythm with sinus arrhythmia with 1st degree A-V block Otherwise normal ECG When compared with ECG of 03-DEC-2020 21:47, No significant change was found Referred By: Evelyn Ramirez Electronically Signed By:BRENDAN HORNRE MD
[2023-06-04 02:16] VITALS: BP 135/72; PULSE 75; RESP 16; TEMP 37.5; O2SAT 97
[2023-06-04 02:18] LABS: MANUAL DIFF FLAG NO
[2023-06-04 02:22] LABS: Basophils Percent Auto 0.4 % (0-2); Eosinophils Absolute Auto 0.1 X10*3/uL (0.0-0.4); Eosinophils Percent Auto 0.9 % (0-4); Hemoglobin 11.1 g/dl (14.0-18.0); Imm Gran Abs Auto 0.02 X10*3/uL (0.00-0.03); Imm Gran Pct Auto 0.3 % (0.0-0.4); Lymphocytes Absolute Auto 1.2 X10*3/uL (1.2-4.9); Lymphocytes Percent Auto 16.1 % (20-40); Mean Corpuscular HGB Conc 32.6 g/dl (31.0-36.0); Mean Corpuscular Hemoglobin 29.7 pg (27.0-33.0); Mean Corpuscular Volume 90.9 fL (80.0-98.0); Mean Platelet Volume 9.5 fL (9.4-12.4); Monocytes Absolute Auto 0.8 X10*3/uL (0.1-1.2); Monocytes Percent Auto 10.7 % (2-11); Neutrophils Absolute Auto 5.4 x10*3/uL (2.0-8.3); Neutrophils Percent Auto 71.6 % (45-73); Platelet Count 341 X10*3/uL (160-400); Red Blood Count 3.74 X10*6/uL (4.60-5.80); Red Cell Distribution Width 16.1 % (11.0-16.0); White Blood Count 7.6 X10*3/uL (4.8-10.8)
[2023-06-04 02:25] LABS: Ammonia 35 umol/L (13-55)
[2023-06-04 02:35] LABS: Alanine Aminotransferase 18 U/L (0-40); Albumin Level 3.6 g/dL (3.5-5.0); Alkaline Phosphatase 91 U/L (39-117); Anion Gap 16 (12-20); Aspartate Amino Transferase 33 U/L (5-37); Bilirubin Direct 0.2 mg/dL (0.0-0.5); Bilirubin Total 0.4 mg/dL (0.0-1.0); Blood Urea Nitrogen 29 mg/dL (9-16); Calcium 9.3 mg/dL (8.4-10.2); Carbon Dioxide 23 mmol/L (22-29); Chloride 108 mmol/L (96-108); Creatinine Clr Calc Pharmacy 52.7; Estimated Glomerular Filt Rate 49; Ethanol < 10 mg/dL; Glucose Random 95 mg/dL (60-115); Potassium 4.7 mmol/L (3.3-5.1); Sodium 142 mmol/L (135-145); Total Protein 6.8 g/dL (6.5-8.0)
[2023-06-04 03:22] LABS: Appearance Urine Clear; Color Urine Dark Yellow; Glucose Urine UA Negative (Negative); Leukocyte Esterase Urine Trace (Negative); Nitrite Urine Negative (Negative); PH 5.5 (5.0-9.0); Specific Gravity - Urine 1.025 (1.005-1.025); UMIC TRIGGER UACC YES; Urine Blood Negative (Negative); Urine Ketones Trace mg/dL (Negative); Urine Protein Trace mg/dL (Neg-Trace)
[2023-06-04 03:24] LABS: Amphetamine Screen Urine Not Detected (Not Detect); Barbiturates, Urine Not Detected (Not Detect); Benzodiazepines Screen Urine Not Detected (Not Detect); Cannabinoid Screen Urine POSITIVE (Not Detect); Cocaine Screen Urine Not Detected (Not Detect); Fentanyl, urine Not Detected (Not Detect); Opiate Screen Urine Not Detected (Not Detect); Phencyclidine Screen Urine Not Detected (Not Detect)
[2023-06-04 03:30] LABS: Bacteria Urine None Seen (None Seen); Hyaline Casts Urine 0-2 /LPF (0-2); RBC Urine 0-2 /HPF (0-2); Squamous Epithelial Cell Urine 0-2 /HPF (0-2); UACC Culture Trigger YES
--- NOTE | 2023-06-04 09:32 | MHC.CM.ED ---
Received case management consult overnight. Patient came to the ER under a section 12. Patient resides in a [facility]. Patient was found walking in public naked. Care Team consult is pending. Spoke with Jeet, [facility] senior biostatistician/group leader. Jeet confirms patient only takes his medical medications. He has declined to take his psych medications so his PCP d/c'd them. Patient only has a HCP. No guardianship or Jorge's order in place. T/W explained patient would most likely be cleared and return to the residence. Jeet requested patient stay for the whole 72 hour hold for section 12. T/W explained that would not be reasonable if patient was cleared. Jeet will speak to his leadership and get back to CM. Jeet is concerned the business across the street with file a No tresspassing order because he was naked in front of their building. CM contact information provided. Ana Begum, director made aware of this conversation. Continue to monitor for d/c needs.
--- NOTE | 2023-06-04 11:21 | MHC.CM.ED ---
Received notification from [facility] Care Team that patient is inpatient psych bed search. T/W spoke with Krystin Olson of [facility] via telephone at [phone]. Krystin aware inpatient psych is recommended for patient. Krystin verbalized understanding. Continue to monitor for d/c needs.
--- NOTE | 2023-06-04 11:47 | PC.NURSE ---
RN FROM [facility] updated on current condition and inpatient bed search
[2023-06-04 12:30] LABS: COVID-19 Test Negative (Negative); IDNOW Serial# 152EDE1D
--- NOTE | 2023-06-04 14:47 | PC.NURSE ---
nurse to nurse given, nurse aware that med rec has not been done. Per [facility] patient takes warfarin and missed yesterdays dose. Per [facility] rn patient is on alternating doses and will fax over med schedule. Fax not yet received at this time to complete med rec
[2023-06-04 15:05] VITALS: BP 174/80; PULSE 96; RESP 20; TEMP 37.2; O2SAT 97
--- NOTE | 2023-06-04 16:25 | PC.NURSE ---
Pt. arrived on unit 14:53 via WC accompanied by this RN and security. Pt. resides in a [facility], but has been refusing medications and had left the home and entered an all female business naked and psychotic and was brought to the ED. Pt. declined CV and MYSQL DEVELOPER signed 12B. 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 You need to do a 15 to keep me here against my will. . Pt.'s jewelry and watches secured with assistance from security. Pt. assisted to change into [facility] by 2 RNs and skin assmt. conducted. Multiple self inflicted abrasions and scabs noted on scalp. Pt. not allowing full head to toe assmt., but large scrotal hydrocele noted. Pt. oriented to unit. No smoking and visitor policies explained. He declined to participate in admission assmts. He ambulates independently without assistive devices with good balance and steady gait. Pt. adamant that he does not take medications, but he is prescribed coumadin for hx. of DVT. Pt. declines to sign releases, I'm not signing anything. Pt. placed on 5 minute safety checks.
--- NOTE | 2023-06-04 16:54 | PC.NURSE ---
Patient noted to have multiple scabs on top of head that he picked at until they were bloody. Area cleaned with NS, hair shampood with shampoo cap. Patient tolerated well. Encouraged not to pick scabs.
[2023-06-04] MEDS: hydrOXYzine HCL 25 MG TABLET PO (20:35)
[2023-06-04] MEDS: traZODone HCL 50 MG TABLET PO (20:35)
--- NOTE | 2023-06-05 06:40 | P.HPPS_ITS ---
HPI Date of Service: 06/05/23 Chief Complaint: Psychosis Sources of Information: patient interviewed, chart reviewed and crisis/core team assessment reviewed HPI Subjective Notes: Rahman Warning and Section 12B Narrative: Mr. Zaragoza is a 72 year-old male with hx of schizophrenia who resides at [facility] [place] assisted. Pt was sent to [facility] [place] due to exposing himself to the neighbors. Collateral information gathered from terminal gauger supervisor Krystin who reports pt has been refusing medications, presenting as more disorganized and combative. On the unit, pt presents as agitated, asking to leave. He thought process is disorganized and difficult to follow. He reports he knew Al Mulugeta and many things have happened. He has been exposing himself on the unit as well. He has been redirected to his room. 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 He has been masturbating and needed to be redirected to do so in the bathroom. He is refusing labs to check INR/PT in order to continue warfarin. He does not show understanding of his medical conditions nor is able to reason when discussing rationale for him to decline labs or other medications including warfarin. He denies SI/HI. He is disheveled and malodorous. He has an hernia enlarging scrotum which apparently was assessed last year by surgery but due to his underlying medical condition and risks including COPD and being on anticoagulant, he was found not to be candidate for it. He denies any pain ingunal site. Past Psychiatric History: OP: [facility] [place] Ward Medeiros Past medication trials: risperidone, clozaril Medical Evaluation Reviewed: Yes [facility] Medical History Incarcerated right inguinal hernia Normocytic anemia Metabolic encephalopathy MSSA bacteremia History of atrial fibrillation COPD (chronic obstructive pulmonary disease) Hypothyroid Bipolar 1 disorder Surgical History History of heart surgery Diagnostics Vital Signs (24Hr): Vital Signs - 24 hr 06/04/23 15:05 Temperature 98.9 F Pulse Rate 96 Respiratory Rate 20 Blood Pressure 174/80 H Pulse Oximetry 97 Oxygen Delivery Method Room Air BMI result Body Mass Index 24.7 Labs 06/04/23 02:14 06/04/23 02:14 Labs: Laboratory Results - last 48 hr 06/04/23 06/04/23 06/04/23 02:14 03:10 12:04 WBC 7.6 RBC 3.74 L Hgb 11.1 L Hct 34.0 L MCV 90.9 MCH 29.7 MCHC 32.6 RDW 16.1 H Plt Count 341 MPV 9.5 Immature Gran % (Auto) 0.3 Neut % (Auto) 71.6 Lymph % (Auto) 16.1 L [place] % (Auto) 10.7 Eos % (Auto) 0.9 Baso % (Auto) 0.4 Lymph # (Auto) 1.2 [place] # (Auto) 0.8 Eos # (Auto) 0.1 Baso # (Auto) 0.0 Abs Immat Gran (auto) 0.02 Absolute Neuts (auto) 5.4 Absolute Nucleated RBC 0.000 Nucleated RBC % (auto) 0.0 Sodium 142 Potassium 4.7 Chloride 108 Carbon Dioxide 23 Anion Gap 16 BUN 29 H Creatinine 1.43 H Estim Creat Clear Calc 52.7 Estimated GFR 49 Random Glucose 95 Calcium 9.3 Total Bilirubin 0.4 Direct Bilirubin 0.2 AST 33 ALT 18 Alkaline Phosphatase 91 Ammonia 35 Total Protein 6.8 Albumin 3.6 Urine Color Dark Yellow Urine Appearance Clear Urine pH 5.5 Ur Specific [place] 1.025 Urine Protein Trace Urine Glucose (UA) Negative Urine Ketones Trace Urine Blood Negative Urine Nitrite Negative Ur Leukocyte Esterase Trace H Urine RBC 0-2 Urine WBC 6-10 H Ur Squamous Epith Cells 0-2 Urine Bacteria None Seen Hyaline Casts 0-2 Urine Opiates Screen Not Detected Urine Fentanyl Screen Not Detected Ur Barbiturates Screen Not Detected Ur Phencyclidine Scrn Not Detected Ur Amphetamines Screen Not Detected U Benzodiazepines Scrn Not Detected Urine Cocaine Screen Not Detected U Marijuana (THC) Screen POSITIVE H Ethyl Alcohol < 10 COVID-19 (MARICRUZ) Negative COVID-19 Clin Com See Note Meds/Allergies Meds Home Medications Medication Instructions Recorded Confirmed Type acetaminophen 500 mg tablet 500 mg PO Q6H PRN Pain (Scale 06/25/21 06/05/23 History (Acetaminophen Pain Relief) Score 1-3) risperidone 1 mg tablet (Risperdal) 0.5 mg PO QAM 10/29/21 06/06/23 History albuterol sulfate 90 mcg/actuation 2 puff inhalation Q4H PRN 06/06/23 06/06/23 History aerosol inhaler (Ventolin HFA) Shortness Of Breath Or Wheezing atorvastatin 40 mg tablet 40 mg PO QAM 06/06/23 06/06/23 History benztropine 0.5 mg tablet 0.5 mg PO BEDTIME 06/06/23 06/06/23 History demeclocycline 300 mg tablet 300 mg PO Q12H 06/06/23 06/06/23 History dicyclomine 20 mg tablet 20 mg PO BID 06/06/23 06/06/23 History ferrous sulfate 325 mg (65 mg 325 mg PO DAILY 06/06/23 06/06/23 History iron) tablet fluticasone fur. 100 mcg-umeclid 1 ea inhalation DAILY 06/06/23 06/06/23 History 62.5 mcg-vilant 25 mcg inhalat.powder (Trelegy Ellipta) folic acid 1 mg tablet 1 mg PO QAM 06/06/23 06/06/23 History levothyroxine 25 mcg tablet 25 mcg PO QAM 06/06/23 06/06/23 History magnesium oxide 400 mg (241.3 mg 400 mg PO BID 06/06/23 06/06/23 History magnesium) tablet risperidone 1 mg tablet 1.5 mg PO BEDTIME 06/06/23 06/06/23 History tamsulosin 0.4 mg capsule 0.4 mg PO DAILY 06/06/23 06/06/23 History warfarin 2 mg tablet 2 - 4 mg PO QPM 06/06/23 06/06/23 History Allergies Allergies Allergy/AdvReac Type Severity Reaction Status Date / Time No Known Allergies Allergy Mild NOT Verified 06/03/23 18:57 APPLICABLE Mental Status Exam Mental Status Exam Behavior Comments: Appearance: thin, disheveled, malodorous, in NAD Behavior: guarded and irritable Psychomotor: some agitation when told he can't leave Speech: mostly unintelligible, mumbles at times, spontaneous TP: disorganized 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 Insight/jdugment: impaired x 2. memory/cog: alert, not oriented to situation. Assessment & Plan Assessment & Plan (1) Schizophrenia: Status: Acute Code(s): F20.9 - Schizophrenia, unspecified Plan Mr. Zaragoza is a 72 year-old male with hx of schizophrenia who resides at at [facility] [place] He was brought to [facility] ons ect 12a due to him exposing himself to the neighbors. On the unit, pt presents as paranoid, refusing most medications and labs, exposing himself and masturbating. Pt does not show capacity to make medical decisions. He also does not appear oriented to situation. PLAN 1. admit to s1, [id number], 15 minutes checks for safety. 2. risperidone 2mg po BID 3. aftercare planning Patient educated on: diagnosis and medication risk/benefits Reason for continued inpatient stay Substantial Risk for: inability to function Statement Statement: I have reviewed the history and physical and performed a pertinent examination on my patient. No changes have occurred unless specified. If the History and Physical was not performed prior to admission, the Hospitalist's service will be consulted for completing the admission physical. Time Spent With Patient Time: Total time managing care of this patient today ____ minutes.
[2023-06-05 09:29] VITALS: BP 117/56; PULSE 73; RESP 17; O2SAT 100
[2023-06-05] MEDS: Fluticasone/Umeclidinium/Vilanterol 100/62.5/25 BLST.W.DEV 1 PUFF INHALE (10:44)
[2023-06-05] MEDS: Ferrous Sulfate 324 MG TABLET.DR PO (10:45)
[2023-06-05] MEDS: Levothyroxine Sodium 25 MCG TABLET PO (10:45)
[2023-06-05] MEDS: risperiDONE 2 MG TABLET PO ×2 (10:45→20:47)
--- NOTE | 2023-06-05 11:22 | P.PNPSI_ITS ---
Subjective Subjective Date of Service: 06/05/23 Reason For Visit: Psychosis Subjective Notes: Conditional Voluntary Diagnostics Vital Signs (24Hr): Vital Signs - 24 hr 06/04/23 15:05 06/05/23 09:29 Temperature 98.9 F Pulse Rate 96 73 Respiratory Rate 20 17 Blood Pressure 174/80 H 117/56 L Pulse Oximetry 97 100 Oxygen Delivery Method Room Air Room Air BMI result Body Mass Index 24.7 Labs 06/04/23 02:14 06/04/23 02:14 Labs: Laboratory Results - last 48 hr 06/04/23 06/04/23 06/04/23 02:14 03:10 12:04 WBC 7.6 RBC 3.74 L Hgb 11.1 L Hct 34.0 L MCV 90.9 MCH 29.7 MCHC 32.6 RDW 16.1 H Plt Count 341 MPV 9.5 Immature Gran % (Auto) 0.3 Neut % (Auto) 71.6 Lymph % (Auto) 16.1 L [place] % (Auto) 10.7 Eos % (Auto) 0.9 Baso % (Auto) 0.4 Lymph # (Auto) 1.2 [place] # (Auto) 0.8 Eos # (Auto) 0.1 Baso # (Auto) 0.0 Abs Immat Gran (auto) 0.02 Absolute Neuts (auto) 5.4 Absolute Nucleated RBC 0.000 Nucleated RBC % (auto) 0.0 Sodium 142 Potassium 4.7 Chloride 108 Carbon Dioxide 23 Anion Gap 16 BUN 29 H Creatinine 1.43 H Estim Creat Clear Calc 52.7 Estimated GFR 49 Random Glucose 95 Calcium 9.3 Total Bilirubin 0.4 Direct Bilirubin 0.2 AST 33 ALT 18 Alkaline Phosphatase 91 Ammonia 35 Total Protein 6.8 Albumin 3.6 Urine Color Dark Yellow Urine Appearance Clear Urine pH 5.5 Ur Specific [place] 1.025 Urine Protein Trace Urine Glucose (UA) Negative Urine Ketones Trace Urine Blood Negative Urine Nitrite Negative Ur Leukocyte Esterase Trace H Urine RBC 0-2 Urine WBC 6-10 H Ur Squamous Epith Cells 0-2 Urine Bacteria None Seen Hyaline Casts 0-2 Urine Opiates Screen Not Detected Urine Fentanyl Screen Not Detected Ur Barbiturates Screen Not Detected Ur Phencyclidine Scrn Not Detected Ur Amphetamines Screen Not Detected U Benzodiazepines Scrn Not Detected Urine Cocaine Screen Not Detected U Marijuana (THC) Screen POSITIVE H Ethyl Alcohol < 10 COVID-19 (MARICRUZ) Negative COVID-19 Clin Com See Note Medications Medications Current Medications Acetaminophen (Acetaminophen 325 Mg Tablet) 650 mg PO Q6H PRN PRN Reason: Headache/Pain Mild Scale (1-3) Al Hydroxide/Mg Hydroxide (Magnesium Hydrox/Alum Hydrox 30 Ml Oral.Susp) 30 ml PO Q6H PRN PRN Reason: Heartburn/Nausea Albuterol Sulfate (Albuterol Sulfate 90 Mcg 8 Gm Inhaler) 1 puff INHALE RQ4H PRN PRN Reason: Wheezing/SOB Atorvastatin Calcium (Atorvastatin Calcium 40 Mg Tablet) 40 mg PO BEDTIME [facility] Ferrous Sulfate (Ferrous Sulfate 324 Mg Tablet.Dr) 324 mg PO DAILY [facility] Last Admin: 06/05/23 10:45 Dose: 324 mg Fluticasone/Umeclidinium/Vilanterol (Fluticasone/Umeclidinium/Vilanterol 100/62.5/25 Blst.W.Dev) 1 puff INHALE RDAILY [facility] Last Admin: 06/05/23 10:44 Dose: 1 puff Hydroxyzine HCl (Hydroxyzine Hcl 25 Mg Tablet) 25 mg PO Q6H PRN PRN Reason: Anxiety Last Admin: 06/04/23 20:35 Dose: 25 mg Levothyroxine Sodium (Levothyroxine Sodium 25 Mcg Tablet) 25 mcg PO DAILY@0600 [facility] Last Admin: 06/05/23 10:45 Dose: 25 mcg Magnesium Hydroxide (Milk Of Magnesia 30 Ml Oral.Susp) 30 ml PO DAILY PRN PRN Reason: Constipation [facility] ([facility] 400 Mg [facility]t) [facility] Risperidone (Risperidone 2 Mg Tablet) 2 mg PO BID [facility] Last Admin: 06/05/23 10:45 Dose: 2 mg Tamsulosin HCl (Tamsulosin Hcl 0.4 Mg Capsule) 0.4 mg PO BEDTIME [facility] Trazodone HCl (Trazodone Hcl 50 Mg Tablet) 50 mg PO BEDTIME MRX1 PRN PRN Reason: Insomnia Last Admin: 06/04/23 20:35 Dose: 50 mg Warfarin Sodium (Warfarin Sodium 2 Mg Tablet) 2 mg PO DAILY@1800 [facility] Allergies Allergies Allergy/AdvReac Type Severity Reaction Status Date / Time No Known Allergies Allergy Mild NOT Verified 06/03/23 18:57 APPLICABLE Assessment & Plan Time Spent With Patient Time: Total time managing care of this patient today ____ minutes.
[2023-06-05] MEDS: Magnesium Oxide 400 MG TABLET PO (17:14)
--- NOTE | 2023-06-05 18:07 | HO.PM.IMCN ---
History of Present Illness Data of Consult Service Date: 06/05/23 Requesting physician: Brianda Caldwell Primary Care Provider: Unknown Physician HPI Reason for consult: scalp lesions 72 year old male with history of COPD, hypothyroidism, afib not on ac, mood disorder, BPH, and unspecified dementia admitted to geriatric psychiatry with consult placed to hospitalist service for evaluation of scalp lesions. The patient has behavioral tendency to pick at his skin, particulaly the scalp and there are multiple scabs and superficial open abrasions/tears noted. Per nursing, the patient seems to be itchy. He is a poor historian and is unable to qualify this. Nursing also reports concerns of left 5th finger contracture with some swelling noted. unknown if injury occurred or chronicity of finding. Review of Systems Review of Systems: Yes Unobtainable due to mental status [facility] Medical History Incarcerated right inguinal hernia Normocytic anemia Metabolic encephalopathy MSSA bacteremia History of atrial fibrillation COPD (chronic obstructive pulmonary disease) Hypothyroid Bipolar 1 disorder Surgical History History of heart surgery Social History Household Members: Other Household Members Other:: prison Housing: House Housing Other:: prison Do you presently have visiting nurse or other home services: Yes (prison) Alcohol intake: never Patient Tobacco Use Status: Tobacco use Unknown Use of substances other than those prescribed or required for medical reasons: Yes Substance Use Type: Marijuana Last Used Substance: Just Prior to Admission Currently Displaying Signs/Symptoms of Drug Intoxication Withdrawal: No Do you feel safe in your current relationship?: No Current Relationship Is there a partner from a previous relationship who is making you feel unsafe now?: No (no current relationship) Are you made to feel afraid or neglected: No Advance Directives: No Advance Directives Information Provided: No Advance Directives on File: Yes Advance Directives Date on File: 06/04/23 Do you have thoughts of harming others: None Do you have a plan to hurt others: No Plan Recently lost weight without trying: Yes How much weight loss: Unsure Eating poorly because of decreased appetite: Yes Nutrition screen score: 5 Nutrition Risks: Dental problems Poor oral hygiene: No (teeth/no dentures) Meds Allergies Allergy/AdvReac Type Severity Reaction Status Date / Time No Known Allergies Allergy Mild NOT Verified 06/03/23 18:57 APPLICABLE Active Medications: Current Medications Acetaminophen (Acetaminophen 325 Mg Tablet) 650 mg PO Q6H PRN PRN Reason: Headache/Pain Mild Scale (1-3) Al Hydroxide/Mg Hydroxide (Magnesium Hydrox/Alum Hydrox 30 Ml Oral.Susp) 30 ml PO Q6H PRN PRN Reason: Heartburn/Nausea Albuterol Sulfate (Albuterol Sulfate 90 Mcg 8 Gm Inhaler) 1 puff INHALE RQ4H PRN PRN Reason: Wheezing/SOB Atorvastatin Calcium (Atorvastatin Calcium 40 Mg Tablet) 40 mg PO BEDTIME [facility] Ferrous Sulfate (Ferrous Sulfate 324 Mg Tablet.Dr) 324 mg PO DAILY [facility] Last Admin: 06/05/23 10:45 Dose: 324 mg Fluticasone/Umeclidinium/Vilanterol (Fluticasone/Umeclidinium/Vilanterol 100/62.5/25 Blst.W.Dev) 1 puff INHALE RDAILY [facility] Last Admin: 06/05/23 10:44 Dose: 1 puff Hydroxyzine HCl (Hydroxyzine Hcl 25 Mg Tablet) 25 mg PO Q6H PRN PRN Reason: Anxiety Last Admin: 06/04/23 20:35 Dose: 25 mg Levothyroxine Sodium (Levothyroxine Sodium 25 Mcg Tablet) 25 mcg PO DAILY@0600 [facility] Last Admin: 06/05/23 10:45 Dose: 25 mcg Loratadine (Loratadine 10 Mg Tablet) 10 mg PO DAILY [facility] Magnesium Hydroxide (Milk Of Magnesia 30 Ml Oral.Susp) 30 ml PO DAILY PRN PRN Reason: Constipation Magnesium Oxide (Magnesium Oxide 400 Mg Tablet) 400 mg PO BIDPC [facility] Last Admin: 06/05/23 17:14 Dose: 400 mg Mupirocin (Mupirocin 2 % Oint 22 Gm Tube) 1 appl TOPICAL BID PRN; Protocol PRN Reason: scalp lesions Risperidone (Risperidone 2 Mg Tablet) 2 mg PO BID [facility] Last Admin: 06/05/23 10:45 Dose: 2 mg Tamsulosin HCl (Tamsulosin Hcl 0.4 Mg Capsule) 0.4 mg PO BEDTIME [facility] Trazodone HCl (Trazodone Hcl 50 Mg Tablet) 50 mg PO BEDTIME MRX1 PRN PRN Reason: Insomnia Last Admin: 06/04/23 20:35 Dose: 50 mg Warfarin Sodium (Warfarin Sodium 2 Mg Tablet) 2 mg PO DAILY@1800 [facility] Home Medications Medication Instructions Recorded Confirmed Last Taken Type atorvastatin 40 mg tablet 40 mg PO BEDTIME 01/03/20 05/14/23 Unknown History demeclocycline 300 mg tablet 300 mg PO Q12H 01/03/20 05/14/23 Unknown History levothyroxine 25 mcg tablet 25 mcg PO DAILY 01/03/20 05/14/23 Unknown History magnesium oxide 400 mg PO BID 01/03/20 05/14/23 Unknown History pantoprazole 40 mg tablet,delayed 40 mg PO DAILY 01/03/20 05/14/23 Unknown History release valproic acid (as sodium salt) 250 1,500 mg PO DAILY 03/20/20 05/14/23 Unknown History mg/5 mL oral solution trazodone 50 mg tablet 25 mg PO DAILY PRN Insomnia 05/15/20 05/14/23 Unknown History benztropine 0.5 mg tablet 0.5 mg PO BEDTIME 10/22/20 05/14/23 Unknown History dicyclomine 20 mg tablet 20 mg PO BID 10/22/20 05/14/23 Unknown History multivitamin-iron 9 mg-folic acid 1 tab PO DAILY 12/16/20 05/14/23 Unknown History 400 mcg-calcium and minerals tablet (Therapeutic-M) acetaminophen 500 mg tablet 500 mg PO Q6H PRN Pain (Scale 06/25/21 06/05/23 Unknown History (Acetaminophen Pain Relief) Score 1-3) divalproex [Depakote] See Rx Instructions PO .COMPLEX 06/25/21 05/14/23 Unknown History ketoconazole 2 % shampoo topical 06/25/21 05/14/23 Unknown History multivitamin with folic acid 400 1 tab PO DAILY 09/24/21 05/14/23 Unknown History mcg tablet (Daily-Stan[place] (with folic acid)) risperidone 1 mg tablet (Risperdal) 1.5 mg PO BEDTIME 10/29/21 05/14/23 Unknown History cholecalciferol (vitamin D3) 25 25 mcg PO DAILY 10/31/21 05/14/23 Unknown History mcg (1,000 unit) tablet (Vitamin D3) thiamine mononitrate (vit B1) 100 100 mg PO BID 10/31/21 05/14/23 Unknown History mg tablet (Vitamin B-1 (mononitrate)) fluticasone 500 mcg-salmeterol 50 1 ea inhalation BID 03/04/22 05/14/23 Unknown History mcg/dose blistr powdr for inhalation (Advair Diskus) umeclidinium 62.5 mcg/actuation 1 inh inhalation DAILY 03/04/22 05/14/23 Unknown History blister powder for inhalation (Incruse Ellipta) warfarin 2 mg tablet 4 mg PO DAILY 05/18/22 05/27/23 Unknown History Physical Exam Vital Signs and Narrative: Vital Signs: Last Vital Signs Temp 98.9 F 06/04/23 15:05 Pulse 73 06/05/23 09:29 Resp 17 06/05/23 09:29 BP 117/56 L 06/05/23 09:29 Pulse Ox 100 06/05/23 09:29 O2 Del Method Room Air 06/05/23 09:29 BMI result Body Mass Index 24.7 Constitutional - Awake and Alert, No apparent distress Musculoskeletal - contracture of the L fifth finger, unable to passively extend. No tenderness to palpation. There is mild swelling and faint erythema over the 5th mcp Skin - Warm/Dry Neurological - Alert & oriented x3, CN II-XII in tact, 5/5 strength BUE and BLE Psychological - Appropriate affect Results Labs 06/04/23 02:14 06/04/23 02:14 Assessment and Plan (1) Scalp abrasion: Status: Acute (2) Contracture of joint of finger of left hand: Status: Acute Plan 72 year old male with history of COPD, hypothyroidism, afib not on ac, mood disorder, BPH, and unspecified dementia admitted to geriatric psychiatry with consult placed to hospitalist service for evaluation of scalp lesions. 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 Uric acid level ordered if patient allows. -most likely, no intervention indicated Will continue following for results
[2023-06-05] MEDS: Atorvastatin Calcium 40 MG TABLET PO (20:46)
[2023-06-05] MEDS: Warfarin Sodium 2 MG TABLET PO (20:46)
[2023-06-05] MEDS: Tamsulosin HCL 0.4 MG CAPSULE PO (20:47)
[2023-06-05] MEDS: Mupirocin 2 % Oint 22 GM TUBE 1 APPL TOPICAL (21:42)
[2023-06-06] MEDS: Levothyroxine Sodium 25 MCG TABLET PO (06:22)
[2023-06-06 08:08] VITALS: BP 104/55; PULSE 88; RESP 20; TEMP 36.8; O2SAT 100
[2023-06-06] MEDS: Fluticasone/Umeclidinium/Vilanterol 100/62.5/25 BLST.W.DEV 1 PUFF INHALE (08:32)
[2023-06-06] MEDS: Magnesium Oxide 400 MG TABLET PO ×2 (08:33→16:48)
[2023-06-06] MEDS: risperiDONE 2 MG TABLET PO ×2 (08:33→20:41)
[2023-06-06] MEDS: Loratadine 10 MG TABLET PO (08:33)
[2023-06-06] MEDS: Ferrous Sulfate 324 MG TABLET.DR PO (08:33)
--- NOTE | 2023-06-06 13:42 | P.PNPSI_ITS ---
Subjective Subjective Date of Service: 06/06/23 Reason For Visit: Psychosis Subjective Notes: Conditional Voluntary Interim History: Pt mostly in bed. difficult to understand, again states he knows Nate Dalal but unclear how this information is connected with what he wants to say. He continues to present with paranoid regarding medications and labs. He denies SI/HI. Mostly in room, masturbating. disrobbing at times, needing redirection. 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 Insight/jdugment: impaired x 2. memory/cog: alert, not oriented to situation. Diagnostics Vital Signs (24Hr): Vital Signs - 24 hr 06/06/23 08:08 Temperature 98.2 F Pulse Rate 88 Respiratory Rate 20 Blood Pressure 104/55 L Pulse Oximetry 100 Oxygen Delivery Method Room Air BMI result Body Mass Index 24.7 Labs 06/04/23 02:14 06/04/23 02:14 Medications Medications Current Medications Acetaminophen (Acetaminophen 325 Mg Tablet) 650 mg PO Q6H PRN PRN Reason: Headache/Pain Mild Scale (1-3) Al Hydroxide/Mg Hydroxide (Magnesium Hydrox/Alum Hydrox 30 Ml Oral.Susp) 30 ml PO Q6H PRN PRN Reason: Heartburn/Nausea Albuterol Sulfate (Albuterol Sulfate 90 Mcg 8 Gm Inhaler) 1 puff INHALE RQ4H PRN PRN Reason: Wheezing/SOB Atorvastatin Calcium (Atorvastatin Calcium 40 Mg Tablet) 40 mg PO BEDTIME [place] Last Admin: 06/05/23 20:46 Dose: 40 mg Ferrous Sulfate (Ferrous Sulfate 324 Mg Tablet.) 324 mg PO DAILY [place] Last Admin: 06/06/23 08:33 Dose: 324 mg Fluticasone/Umeclidinium/Vilanterol (Fluticasone/Umeclidinium/Vilanterol 100/62.5/25 Blst.W.Dev) 1 puff INHALE RDAILY [facility] BEDS AT [facility] Last Admin: 06/06/23 08:32 Dose: 1 puff Hydroxyzine HCl (Hydroxyzine Hcl 25 Mg Tablet) 25 mg PO Q6H PRN PRN Reason: Anxiety Last Admin: 06/04/23 20:35 Dose: 25 mg Levothyroxine Sodium (Levothyroxine Sodium 25 Mcg Tablet) 25 mcg PO DAILY@0600 [facility]CLUDE 234 BEDS AT [facility] Last Admin: 06/06/23 06:22 Dose: 25 mcg Loratadine (Loratadine 10 Mg Tablet) 10 mg PO DAILY [facility]CLUDE 234 BEDS AT [facility] Last Admin: 06/06/23 08:33 Dose: 10 mg Magnesium Hydroxide (Milk Of Magnesia 30 Ml Oral.Susp) 30 ml PO DAILY PRN PRN Reason: Constipation [facility] ([facility]) [facility] Last Admin: 06/06/23 08:33 Dose: 400 mg Mupirocin (Mupirocin 2 % Oint 22 Gm Tube) 1 appl TOPICAL BID PRN; Protocol PRN Reason: scalp lesions Last Admin: 06/05/23 21:42 Dose: 1 appl Risperidone (Risperidone 2 Mg Tablet) 2 mg PO BID [facility] 234 BEDS [facility] Last Admin: 06/06/23 08:33 Dose: 2 mg Tamsulosin HCl (Tamsulosin Hcl 0.4 Mg Capsule) 0.4 mg PO BEDTIME [facility] 234 BEDS [facility] Last Admin: 06/05/23 20:47 Dose: 0.4 mg Trazodone HCl (Trazodone Hcl 50 Mg Tablet) 50 mg PO BEDTIME MRX1 PRN PRN Reason: Insomnia Last Admin: 06/04/23 20:35 Dose: 50 mg Warfarin Sodium (Warfarin Sodium 2 Mg Tablet) 2 mg PO DAILY@1800 [facility] 234 BEDS [facility] Last Admin: 06/05/23 20:58 Dose: Not Given Allergies Allergies Allergy/AdvReac Type Severity Reaction Status Date / Time No Known Allergies Allergy Mild NOT Verified 06/03/23 18:57 APPLICABLE Assessment & Plan Assessment & Plan (1) Schizophrenia: Status: Acute Code(s): F20.9 - Schizophrenia, unspecified Plan Mr. Zaragoza is a 72 year-old male with hx of schizophrenia who was brought on a sect 12a due to pt exposing himself to the neighbors. Pt has been refusing medications at , becoming more agitated. On the unit, pt disorganized, refusing labs, selective about medications. PLAN 1. continue risperidone 2mg po BID. Reason for continued inpatient stay Substantial Risk for: inability to function Time Spent With Patient Time: Total time managing care of this patient today ____ minutes.
[2023-06-06] MEDS: Tamsulosin HCL 0.4 MG CAPSULE PO (20:41)
[2023-06-06] MEDS: Atorvastatin Calcium 40 MG TABLET PO (20:41)
[2023-06-07] MEDS: Levothyroxine Sodium 25 MCG TABLET PO (05:01)
[2023-06-07 06:00] VITALS: BP 129/71; PULSE 75; RESP 18; TEMP 36.6; O2SAT 98
[2023-06-07] MEDS: Fluticasone/Umeclidinium/Vilanterol 100/62.5/25 BLST.W.DEV 1 PUFF INHALE (08:49)
--- NOTE | 2023-06-07 16:18 | P.PNPSI_ITS ---
Subjective Subjective Date of Service: 06/07/23 Reason For Visit: Psychosis Subjective Notes: Section 12B Interim History: Pt slept most of the night. He was mostly in his room. He declined medication this morning. He reports he is doing well but should not be here in the hospital. His speech is very disorganized and difficult to follow. He denies SI/HI. He is internally preoccupied. Need redirection due to ongoing masturbation and to keep clothes on. given that he continues to refuse labs- warfarin has been held. discussed with Dr. Connor switch to eliquis 5mg po BID, since he is on it for afib. 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 Insight/jdugment: impaired x 2. memory/cog: alert, not oriented to situation. Diagnostics Vital Signs (24Hr): Vital Signs - 24 hr 06/07/23 06:00 Temperature 97.9 F Pulse Rate 75 Respiratory Rate 18 Blood Pressure 129/71 Pulse Oximetry 98 Oxygen Delivery Method Room Air BMI result Body Mass Index 24.7 Labs 06/04/23 02:14 06/04/23 02:14 Medications Medications Current Medications Acetaminophen (Acetaminophen 325 Mg Tablet) 650 mg PO Q6H PRN PRN Reason: Headache/Pain Mild Scale (1-3) Al Hydroxide/Mg Hydroxide (Magnesium Hydrox/Alum Hydrox 30 Ml Oral.Susp) 30 ml PO Q6H PRN PRN Reason: Heartburn/Nausea Albuterol Sulfate (Albuterol Sulfate 90 Mcg 8 Gm Inhaler) 1 puff INHALE RQ4H PRN PRN Reason: Wheezing/SOB Atorvastatin Calcium (Atorvastatin Calcium 40 Mg Tablet) 40 mg PO BEDTIME [place] Last Admin: 06/06/23 20:41 Dose: 40 mg Ferrous Sulfate (Ferrous Sulfate 324 Mg Tablet.) 324 mg PO DAILY [place] Last Admin: 06/07/23 08:53 Dose: Not Given Fluticasone/Umeclidinium/Vilanterol (Fluticasone/Umeclidinium/Vilanterol 100/62.5/25 Blst.W.Dev) 1 puff INHALE RDAILY [facility] Last Admin: 06/07/23 08:49 Dose: 1 puff Hydroxyzine HCl (Hydroxyzine Hcl 25 Mg Tablet) 25 mg PO Q6H PRN PRN Reason: Anxiety Last Admin: 06/04/23 20:35 Dose: 25 mg Levothyroxine Sodium (Levothyroxine Sodium 25 Mcg Tablet) 25 mcg PO DAILY@0600 [facility] Last Admin: 06/07/23 05:01 Dose: 25 mcg Loratadine (Loratadine 10 Mg Tablet) 10 mg PO DAILY [facility] Last Admin: 06/07/23 08:54 Dose: Not Given Magnesium Hydroxide (Milk Of Magnesia 30 Ml Oral.Susp) 30 ml PO DAILY PRN PRN Reason: Constipation Magnesium Oxide ([facility]t) [facility] Last Admin: 06/07/23 08:53 Dose: Not Given Mupirocin (Mupirocin 2 % Oint 22 Gm Tube) 1 appl TOPICAL BID PRN; Protocol PRN Reason: scalp lesions Last Admin: 06/05/23 21:42 Dose: 1 appl Risperidone (Risperidone 2 Mg Tablet) 2 mg PO BID [facility] Last Admin: 06/07/23 08:54 Dose: Not Given Tamsulosin HCl (Tamsulosin Hcl 0.4 Mg Capsule) 0.4 mg PO BEDTIME [facility] Last Admin: 06/06/23 20:41 Dose: 0.4 mg Trazodone HCl (Trazodone Hcl 50 Mg Tablet) 50 mg PO BEDTIME MRX1 PRN PRN Reason: Insomnia Last Admin: 06/04/23 20:35 Dose: 50 mg Warfarin Sodium (Warfarin Sodium 2 Mg Tablet) 2 mg PO DAILY@1800 [facility] Last Admin: 06/06/23 17:38 Dose: Not Given Allergies Allergies Allergy/AdvReac Type Severity Reaction Status Date / Time No Known Allergies Allergy Mild NOT Verified 06/03/23 18:57 APPLICABLE Assessment & Plan Assessment & Plan (1) Schizophrenia: Status: Acute Code(s): F20.9 - Schizophrenia, unspecified Plan Mr. Zaragoza is a 72 year-old male with hx of schizophrenia who was brought on a sect 12a due to pt exposing himself to the neighbors. Pt has been refusing medications at , becoming more agitated. On the unit, pt disorganized, refusing labs, selective about medications. PLAN 1.discussed with hospitalist change from warfarin to eliquis since he is refusing labs. He is on warfarin for afib per records. Dr. Connor recommends to change to eliquis 5mg po BID. continue risperidone. Reason for continued inpatient stay Substantial Risk for: inability to function Time Spent With Patient Time: Total time managing care of this patient today ____ minutes.
[2023-06-07] MEDS: Magnesium Oxide 400 MG TABLET PO (18:14)
[2023-06-07] MEDS: Atorvastatin Calcium 40 MG TABLET PO (19:48)
[2023-06-07] MEDS: Tamsulosin HCL 0.4 MG CAPSULE PO (19:48)
[2023-06-07] MEDS: traZODone HCL 50 MG TABLET PO (19:48)
[2023-06-07] MEDS: risperiDONE 2 MG TABLET PO (19:48)
[2023-06-07 20:56] VITALS: BP 109/71; PULSE 98; RESP 17; O2SAT 97
[2023-06-08] MEDS: Levothyroxine Sodium 25 MCG TABLET PO (05:47)
--- NOTE | 2023-06-08 10:03 | HO.PSYCHPN ---
Subjective Subjective Date of Service: 06/08/23 Reason For Visit: Psychosis Subjective Notes: Section 12B Interim History: Pt slept most of the night. He has intermittently taking medications. He is guarded and irritable and does not engage much in conversation other than stating that he is leaving today. Any attempts to engage in conversation, pt quick to become irritable makes puffing sounds. He has been more visible and eating out of his room. 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 Insight/jdugment: impaired x 2. memory/cog: alert, not oriented to situation. Diagnostics Vital Signs (24Hr): Vital Signs - 24 hr 06/07/23 20:56 Pulse Rate 98 Respiratory Rate 17 Blood Pressure 109/71 Pulse Oximetry 97 Oxygen Delivery Method Room Air BMI result Body Mass Index 24.7 Labs 06/04/23 02:14 06/04/23 02:14 Medications Medications Current Medications Acetaminophen (Acetaminophen 325 Mg Tablet) 650 mg PO Q6H PRN PRN Reason: Headache/Pain Mild Scale (1-3) Al Hydroxide/Mg Hydroxide (Magnesium Hydrox/Alum Hydrox 30 Ml Oral.Susp) 30 ml PO Q6H PRN PRN Reason: Heartburn/Nausea Albuterol Sulfate (Albuterol Sulfate 90 Mcg 8 Gm Inhaler) 1 puff INHALE RQ4H PRN PRN Reason: Wheezing/SOB Atorvastatin Calcium (Atorvastatin Calcium 40 Mg Tablet) 40 mg PO BEDTIME [facility] Last Admin: 06/07/23 19:48 Dose: 40 mg Ferrous Sulfate (Ferrous Sulfate 324 Mg Tablet.) 324 mg PO DAILY [facility] Last Admin: 06/08/23 08:40 Dose: Not Given Fluticasone/Umeclidinium/Vilanterol (Fluticasone/Umeclidinium/Vilanterol 100/62.5/25 Blst.W.Dev) 1 puff INHALE RDAILY [facility] Last Admin: 06/08/23 08:40 Dose: Not Given Hydroxyzine HCl (Hydroxyzine Hcl 25 Mg Tablet) 25 mg PO Q6H PRN PRN Reason: Anxiety Last Admin: 06/04/23 20:35 Dose: 25 mg Levothyroxine Sodium (Levothyroxine Sodium 25 Mcg Tablet) 25 mcg PO DAILY@0600 [facility] Last Admin: 06/08/23 05:47 Dose: 25 mcg Loratadine (Loratadine 10 Mg Tablet) 10 mg PO DAILY [facility] Last Admin: 06/08/23 08:40 Dose: Not Given Magnesium Hydroxide (Milk Of Magnesia 30 Ml Oral.Susp) 30 ml PO DAILY PRN PRN Reason: Constipation Magnesium Oxide ([facility]esium [facility] 400 Mg Tablet) [facility] Last Admin: 06/08/23 08:40 Dose: Not Given Mupirocin (Mupirocin 2 % Oint 22 Gm Tube) 1 appl TOPICAL BID PRN; Protocol PRN Reason: scalp lesions Last Admin: 06/05/23 21:42 Dose: 1 appl Risperidone (Risperidone 2 Mg Tablet) 2 mg PO BID [facility] Last Admin: 06/08/23 08:40 Dose: Not Given Tamsulosin HCl (Tamsulosin Hcl 0.4 Mg Capsule) 0.4 mg PO BEDTIME [facility] Last Admin: 06/07/23 19:48 Dose: 0.4 mg Trazodone HCl (Trazodone Hcl 50 Mg Tablet) 50 mg PO BEDTIME MRX1 PRN PRN Reason: Insomnia Last Admin: 06/07/23 19:48 Dose: 50 mg Warfarin Sodium (Warfarin Sodium 2 Mg Tablet) 2 mg PO DAILY@1800 [facility] Last Admin: 06/06/23 17:38 Dose: Not Given Allergies Allergies Allergy/AdvReac Type Severity Reaction Status Date / Time No Known Allergies Allergy Mild NOT Verified 06/03/23 18:57 APPLICABLE Assessment & Plan Assessment & Plan (1) Schizophrenia: Status: Acute Code(s): F20.9 - Schizophrenia, unspecified Plan Mr. Zaragoza is a 72 year-old male with hx of schizophrenia who was brought on a sect 12a due to pt exposing himself to the neighbors. Pt has been refusing medications at , becoming more agitated. On the unit, pt disorganized, refusing labs, selective about medications. PLAN 1. continue risperidone 2mg po BID. Reason for continued inpatient stay Substantial Risk for: inability to function Time Spent With Patient Time: Total time managing care of this patient today ____ minutes.
[2023-06-08 18:00] VITALS: BP 150/82; PULSE 87; RESP 18; TEMP 36.3; O2SAT 99
[2023-06-09 06:00] VITALS: RESP 20
--- NOTE | 2023-06-09 10:02 | PC.NURSE ---
Chris declined morning medications and to have vital sings taken; MD Whittaker notified.
[2023-06-09 18:00] VITALS: RESP 18; TEMP 36
--- NOTE | 2023-06-09 19:47 | HO.PSYCHPN ---
Subjective Subjective Date of Service: 06/09/23 Reason For Visit: Psychosis Subjective Notes: Conditional Voluntary Interim History: Pt slept most of the night. Pt is irritable, and declines to talk with this conventional underwriter other than to be discharged today. He declined medications including medical medications stating I don't need any medications. He denied SI/HI. 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 Insight/jdugment: impaired x 2. memory/cog: alert, not oriented to situation. Diagnostics Vital Signs (24Hr): Vital Signs - 24 hr 06/09/23 06:00 Respiratory Rate 20 BMI result Body Mass Index 24.7 Labs 06/04/23 02:14 06/04/23 02:14 Medications Medications Current Medications Acetaminophen (Acetaminophen 325 Mg Tablet) 650 mg PO Q6H PRN PRN Reason: Headache/Pain Mild Scale (1-3) Al Hydroxide/Mg Hydroxide (Magnesium Hydrox/Alum Hydrox 30 Ml Oral.Susp) 30 ml PO Q6H PRN PRN Reason: Heartburn/Nausea Albuterol Sulfate (Albuterol Sulfate 90 Mcg 8 Gm Inhaler) 1 puff INHALE RQ4H PRN PRN Reason: Wheezing/SOB Apixaban (Apixaban 5 Mg Tablet) 5 mg PO BID [facility] Last Admin: 06/09/23 08:58 Dose: Not Given Atorvastatin Calcium (Atorvastatin Calcium 40 Mg Tablet) 40 mg PO BEDTIME [facility] Last Admin: 06/08/23 20:50 Dose: Not Given Ferrous Sulfate (Ferrous Sulfate 324 Mg Tablet.) 324 mg PO DAILY [facility] Last Admin: 06/09/23 08:58 Dose: Not Given Fluticasone/Umeclidinium/Vilanterol (Fluticasone/Umeclidinium/Vilanterol 100/62.5/25 Blst.W.Dev) 1 puff INHALE RDAILY [facility] Last Admin: 06/09/23 08:58 Dose: Not Given Haloperidol (Haloperidol 1 Mg Tablet) 2 mg PO BID [facility] Last Admin: 06/09/23 08:58 Dose: Not Given Hydroxyzine HCl (Hydroxyzine Hcl 25 Mg Tablet) 25 mg PO Q6H PRN PRN Reason: Anxiety Last Admin: 06/04/23 20:35 Dose: 25 mg Levothyroxine Sodium (Levothyroxine Sodium 25 Mcg Tablet) 25 mcg PO DAILY@0600 [facility] Last Admin: 06/09/23 05:55 Dose: Not Given Loratadine (Loratadine 10 Mg Tablet) 10 mg PO DAILY [facility] Last Admin: 06/09/23 08:58 Dose: Not Given Magnesium Hydroxide (Milk Of Magnesia 30 Ml Oral.Susp) 30 ml PO DAILY PRN PRN Reason: Constipation Magnesium Oxide (Magnesium Oxide 400 Mg Tablet) [facility] Last Admin: 06/09/23 16:47 Dose: Not Given Mupirocin (Mupirocin 2 % Oint 22 Gm Tube) 1 appl TOPICAL BID PRN; Protocol PRN Reason: scalp lesions Last Admin: 06/05/23 21:42 Dose: 1 appl Risperidone (Risperidone 2 Mg Tablet) 2 mg PO BID [facility] Last Admin: 06/09/23 08:58 Dose: Not Given Tamsulosin HCl (Tamsulosin Hcl 0.4 Mg Capsule) 0.4 mg PO BEDTIME [facility] Last Admin: 06/08/23 20:50 Dose: Not Given Trazodone HCl (Trazodone Hcl 50 Mg Tablet) 50 mg PO BEDTIME PRN PRN Reason: Insomnia Allergies Allergies Allergy/AdvReac Type Severity Reaction Status Date / Time No Known Allergies Allergy Mild NOT Verified 06/03/23 18:57 APPLICABLE Assessment & Plan Assessment & Plan (1) Schizophrenia: Status: Acute Code(s): F20.9 - Schizophrenia, unspecified Plan Mr. Zaragoza is a 72 year-old male with hx of schizophrenia who was brought on a sect 12a due to pt exposing himself to the neighbors. Pt has been refusing medications at , becoming more agitated. On the unit, pt disorganized, refusing labs, selective about medications. PLAN 1. continue risperidone 2mg po BID. 2. filed sect 7/8. Reason for continued inpatient stay Substantial Risk for: inability to function Time Spent With Patient Time: Total time managing care of this patient today ____ minutes.
[2023-06-09] MEDS: Apixaban 5 MG TABLET PO (20:38)
[2023-06-10 06:00] VITALS: RESP 16
--- NOTE | 2023-06-10 06:44 | PC.NURSE ---
Pt. vomited x2 w/light brownish liquid type of vomitus in large amount. Temp-96.8, P-94 spo2-100%. Pt refused BP taken. Referred to Dr. Luis Doe w/ orders to bring it to team this morning.
--- NOTE | 2023-06-10 09:06 | HO.PSYCHPN ---
Subjective Subjective Date of Service: 06/10/23 Reason For Visit: Psychosis Subjective Notes: Section 7 Interim History: Pt had episode of emesis last night. This morning pt up and eating. He denies any nausea. afebrile. He also denies abdominal pain. He refuses labs. He also declines medications. He asks for discharge. He presents as paranoid and guarded, irritable at times. 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 Insight/jdugment: impaired x 2. memory/cog: alert, not oriented to situation. Diagnostics Vital Signs (24Hr): Vital Signs - 24 hr 06/09/23 18:00 Temperature 96.8 F Respiratory Rate 18 BMI result Body Mass Index 24.7 Labs 06/04/23 02:14 06/04/23 02:14 Medications Medications Current Medications Acetaminophen (Acetaminophen 325 Mg Tablet) 650 mg PO Q6H PRN PRN Reason: Headache/Pain Mild Scale (1-3) Al Hydroxide/Mg Hydroxide (Magnesium Hydrox/Alum Hydrox 30 Ml Oral.Susp) 30 ml PO Q6H PRN PRN Reason: Heartburn/Nausea Albuterol Sulfate (Albuterol Sulfate 90 Mcg 8 Gm Inhaler) 1 puff INHALE RQ4H PRN PRN Reason: Wheezing/SOB Apixaban (Apixaban 5 Mg Tablet) 5 mg PO BID [facility] Last Admin: 06/09/23 20:38 Dose: 5 mg Atorvastatin Calcium (Atorvastatin Calcium 40 Mg Tablet) 40 mg PO BEDTIME [facility] Last Admin: 06/09/23 20:39 Dose: Not Given Ferrous Sulfate (Ferrous Sulfate 324 Mg Tablet.) 324 mg PO DAILY [facility] Last Admin: 06/09/23 08:58 Dose: Not Given Fluticasone/Umeclidinium/Vilanterol (Fluticasone/Umeclidinium/Vilanterol 100/62.5/25 Blst.W.Dev) 1 puff INHALE RDAILY [facility] Last Admin: 06/09/23 08:58 Dose: Not Given Haloperidol (Haloperidol 1 Mg Tablet) 2 mg PO BID [facility] Last Admin: 06/09/23 20:39 Dose: Not Given Hydroxyzine HCl (Hydroxyzine Hcl 25 Mg Tablet) 25 mg PO Q6H PRN PRN Reason: Anxiety Last Admin: 06/04/23 20:35 Dose: 25 mg Levothyroxine Sodium (Levothyroxine Sodium 25 Mcg Tablet) 25 mcg PO DAILY@0600 [facility] Last Admin: 06/10/23 06:02 Dose: Not Given Loratadine (Loratadine 10 Mg Tablet) 10 mg PO DAILY [facility] Last Admin: 06/09/23 08:58 Dose: Not Given Magnesium Hydroxide (Milk Of Magnesia 30 Ml Oral.Susp) 30 ml PO DAILY PRN PRN Reason: Constipation Magnesium Oxide (Magnesium Oxide 400 Mg Tablet) [facility] Last Admin: 06/09/23 16:47 Dose: Not Given Mupirocin (Mupirocin 2 % Oint 22 Gm Tube) 1 appl TOPICAL BID PRN; Protocol PRN Reason: scalp lesions Last Admin: 06/05/23 21:42 Dose: 1 appl Risperidone (Risperidone 2 Mg Tablet) 2 mg PO BID [facility] Last Admin: 06/09/23 20:39 Dose: Not Given Tamsulosin HCl (Tamsulosin Hcl 0.4 Mg Capsule) 0.4 mg PO BEDTIME [facility] Last Admin: 06/09/23 20:39 Dose: Not Given Trazodone HCl (Trazodone Hcl 50 Mg Tablet) 50 mg PO BEDTIME PRN PRN Reason: Insomnia Allergies Allergies Allergy/AdvReac Type Severity Reaction Status Date / Time No Known Allergies Allergy Mild NOT Verified 06/03/23 18:57 APPLICABLE Assessment & Plan Assessment & Plan (1) Schizophrenia: Status: Acute Code(s): F20.9 - Schizophrenia, unspecified Plan Mr. Zaragoza is a 72 year-old male with hx of schizophrenia who was brought on a sect 12a due to pt exposing himself to the neighbors. Pt has been refusing medications at , becoming more agitated. On the unit, pt disorganized, refusing labs, selective about medications. PLAN 1. continue risperidone 2mg po BID. 2. filed sect 09/26. Reason for continued inpatient stay Substantial Risk for: inability to function Time Spent With Patient Time: Total time managing care of this patient today ____ minutes.
[2023-06-10 09:59] VITALS: BMI 22.8
[2023-06-10 18:00] VITALS: RESP 16
[2023-06-10] MEDS: risperiDONE 2 MG TABLET PO (21:50)
[2023-06-10] MEDS: hydrOXYzine HCL 25 MG TABLET PO (21:50)
[2023-06-10] MEDS: Apixaban 5 MG TABLET PO (21:50)
[2023-06-10] MEDS: traZODone HCL 50 MG TABLET PO (21:51)
[2023-06-10] MEDS: HaloperidoL 1 MG TABLET 2 MG PO (21:51)
[2023-06-10] MEDS: Ondansetron ODT 4 MG TAB.RAPDIS TRANSLINGU (23:21)
--- NOTE | 2023-06-11 09:54 | P.PNPSI_ITS ---
Subjective Subjective Date of Service: 06/11/23 Reason For Visit: Psychosis Subjective Notes: Section 7 Interim History: Pt had episode of emesis last night. 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 Insight/jdugment: impaired x 2. memory/cog: alert, not oriented to situation Judgment markedly impaired. 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 Insight/jdugment: impaired x 2. memory/cog: alert, not oriented to situation. Diagnostics Vital Signs (24Hr): Vital Signs - 24 hr 06/10/23 18:00 Respiratory Rate 16 BMI result Body Mass Index 22.8 Labs 06/04/23 02:14 06/04/23 02:14 Medications Medications Current Medications Acetaminophen (Acetaminophen 325 Mg Tablet) 650 mg PO Q6H PRN PRN Reason: Headache/Pain Mild Scale (1-3) Al Hydroxide/Mg Hydroxide (Magnesium Hydrox/Alum Hydrox 30 Ml Oral.Susp) 30 ml PO Q6H PRN PRN Reason: Heartburn/Nausea Albuterol Sulfate (Albuterol Sulfate 90 Mcg 8 Gm Inhaler) 1 puff INHALE RQ4H PRN PRN Reason: Wheezing/SOB Apixaban (Apixaban 5 Mg Tablet) 5 mg PO BID [facility] Last Admin: 06/11/23 09:02 Dose: Not Given Atorvastatin Calcium (Atorvastatin Calcium 40 Mg Tablet) 40 mg PO BEDTIME [facility] Last Admin: 06/10/23 21:54 Dose: Not Given Ferrous Sulfate (Ferrous Sulfate 324 Mg Tablet.Dr) 324 mg PO DAILY [facility] Last Admin: 06/11/23 09:02 Dose: Not Given Fluticasone/Umeclidinium/Vilanterol (Fluticasone/Umeclidinium/Vilanterol 100/62.5/25 Blst.W.Dev) 1 puff INHALE RDAILY [facility] Last Admin: 06/11/23 09:02 Dose: Not Given Haloperidol (Haloperidol 5 Mg Tablet) 5 mg PO BID [facility] Hydroxyzine HCl (Hydroxyzine Hcl 25 Mg Tablet) 25 mg PO Q6H PRN PRN Reason: Anxiety Last Admin: 06/10/23 21:50 Dose: 25 mg Levothyroxine Sodium (Levothyroxine Sodium 25 Mcg Tablet) 25 mcg PO DAILY@0600 [facility] Last Admin: 06/11/23 09:01 Dose: Not Given Loratadine (Loratadine 10 Mg Tablet) 10 mg PO DAILY [facility] Last Admin: 06/11/23 09:02 Dose: Not Given Magnesium Hydroxide (Milk Of Magnesia 30 Ml Oral.Susp) 30 ml PO DAILY PRN PRN Reason: Constipation [facility] Ox[facility] ([facility] 400 Mg [facility]t) [facility] Last Admin: 06/11/23 09:02 Dose: Not Given Mupirocin (Mupirocin 2 % Oint 22 Gm Tube) 1 appl TOPICAL BID PRN; Protocol PRN Reason: scalp lesions Last Admin: 06/05/23 21:42 Dose: 1 appl Risperidone (Risperidone 2 Mg Tablet) 2 mg PO BID [facility] Last Admin: 06/11/23 09:02 Dose: Not Given Tamsulosin HCl (Tamsulosin Hcl 0.4 Mg Capsule) 0.4 mg PO BEDTIME [facility] Last Admin: 06/10/23 21:54 Dose: Not Given Trazodone HCl (Trazodone Hcl 50 Mg Tablet) 50 mg PO BEDTIME PRN PRN Reason: Insomnia Last Admin: 06/10/23 21:51 Dose: 50 mg Allergies Allergies Allergy/AdvReac Type Severity Reaction Status Date / Time No Known Allergies Allergy Mild NOT Verified 06/03/23 18:57 APPLICABLE Assessment & Plan Assessment & Plan (1) Schizophrenia: Status: Acute Code(s): F20.9 - Schizophrenia, unspecified Plan Mr. Zaragoza is a 72 year-old male with hx of schizophrenia who was brought on a sect 12a due to pt exposing himself to the neighbors. Pt has been refusing medications at , becoming more agitated. On the unit, pt disorganized, refusing labs, selective about medications. PLAN 1. continue risperidone 2mg po BID. 2. filed sect /. 06/11/2023 Patient not taking medication psychotic refusing medical care on section 7 may need to get abdominal CT scan patient recently had nausea vomiting seems to be somewhat better today concerns regarding incarcerated hernia patient not able to make medical decisions at this time refusing lab Reason for continued inpatient stay Substantial Risk for: inability to function, rapid decompensation and med/psych decompensation Time Spent With Patient Time: Total time managing care of this patient today ____ minutes.
[2023-06-11 10:19] VITALS: BMI 17.2
[2023-06-11] MEDS: Magnesium Oxide 400 MG TABLET PO (16:46)
[2023-06-11] MEDS: Mupirocin 2 % Oint 22 GM TUBE 1 APPL TOPICAL (16:47)
--- NOTE | 2023-06-11 16:52 | PC.NURSE ---
The patient started talking more this evening. He took his Magnesium and allowed me to apply the Mupirocin to his scalp abrasions. He coughed up a large amount of thick white mucous.
--- NOTE | 2023-06-11 17:34 | PC.NURSE ---
Patient coughing with thin liquids, liquids thickened and patient did not cough.
[2023-06-11 17:43] VITALS: TEMP 36
[2023-06-11 18:00] VITALS: PULSE 85; RESP 18; TEMP 36; O2SAT 99
--- NOTE | 2023-06-11 18:16 | PC.NURSE ---
Addendum entered by Danielle Rodriguez RN 06/11/23 18:27: Herni KOTHARI updated via Gray text today. Original Note: Later this patient allowed me to listen to his lungs, poor inspiration and expiration, no adventitious sounds heard. O2 Sat 99% on room air. Abdomen soft, non-distended and non-tender with positive bowel sound all 4 quadrants. T96.8 , P85, R18.
[2023-06-11] MEDS: Apixaban 5 MG TABLET PO (20:31)
[2023-06-11] MEDS: Atorvastatin Calcium 40 MG TABLET PO (20:31)
[2023-06-11] MEDS: HaloperidoL 5 MG TABLET PO (20:31)
[2023-06-11] MEDS: Tamsulosin HCL 0.4 MG CAPSULE PO (20:31)
[2023-06-11] MEDS: risperiDONE 2 MG TABLET PO (20:31)
--- NOTE | 2023-06-12 03:54 | P.EN_ITS ---
Event Note Date of Service: 06/12/23 Event Note: Have attempted to see pt three separate times for nausea and vomiting, but pt continually refuses interview and examination. Pt denies any acute medical conditions and instead complains about being kidnapped . 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 Has been seen and evaluated by general surgery here on 01/31/2020 and 07/29/2022 and elected to not undergo surgical repair. Hernia grossly appears qu ite large, but unable to determine if it has grown recently. Given pt's presentation and lack of complaints of pain, does not appear to be strangulated. Nursing has also noticed pt has been coughing after recent vomiting episodes. Have ordered a CXR to evaluation for possible aspiration and KUB to evaluate for possible obstruction, but pt has refused to allow for imaging. Pt has been refusing almost all medical interventions recently, including vitals. Given pt's refusal for labs, vitals, imaging, and physical examination, can really offer no services at this time. Please reconsult if pt's condition changes or he becomes more amenable to examination and diagnostics. Time Spent With Patient Time: Total time managing care of this patient today ____ minutes.
[2023-06-12] MEDS: Levothyroxine Sodium 25 MCG TABLET PO (05:19)
[2023-06-12] MEDS: Apixaban 5 MG TABLET PO (22:12)
[2023-06-12] MEDS: risperiDONE 2 MG TABLET PO (22:12)
[2023-06-12] MEDS: HaloperidoL 5 MG TABLET PO (22:12)
[2023-06-12] MEDS: Atorvastatin Calcium 40 MG TABLET PO (22:12)
[2023-06-12] MEDS: Tamsulosin HCL 0.4 MG CAPSULE PO (22:12)
--- NOTE | 2023-06-12 22:55 | HO.PSYCHPN ---
Subjective Subjective Date of Service: 06/12/23 Reason For Visit: Psychosis Subjective Notes: Section 7 Interim History: Patient does untreated hernia times years history of heart valve replacement patient has long history of schizophrenia patient has been refusing all labs over the past few days he has been taking in some food and fluids he does have a chopped diet patient has no teeth patient currently on a section 7 he is aware he has hernia but becomes fearful paranoid thinking someone is going to take off his testicles or irradiate if he had a CT scan. 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 Grandiose delusion fearful and paranoid concerns Insight/jdugment: impaired x 2. memory/cog: alert, not oriented to situation Judgment markedly impaired. 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 Insight/jdugment: impaired x 2. memory/cog: alert, not oriented to situation. Diagnostics Vital Signs (24Hr): BMI result Body Mass Index 17.2 Labs 06/04/23 02:14 06/04/23 02:14 Medications Medications Current Medications Acetaminophen (Acetaminophen 325 Mg Tablet) 650 mg PO Q6H PRN PRN Reason: Headache/Pain Mild Scale (1-3) Al Hydroxide/Mg Hydroxide (Magnesium Hydrox/Alum Hydrox 30 Ml Oral.Susp) 30 ml PO Q6H PRN PRN Reason: Heartburn/Nausea Albuterol Sulfate (Albuterol Sulfate 90 Mcg 8 Gm Inhaler) 1 puff INHALE RQ4H PRN PRN Reason: Wheezing/SOB Apixaban (Apixaban 5 Mg Tablet) 5 mg PO BID [facility] Last Admin: 06/12/23 22:12 Dose: 5 mg Atorvastatin Calcium (Atorvastatin Calcium 40 Mg Tablet) 40 mg PO BEDTIME [facility] Last Admin: 06/12/23 22:12 Dose: 40 mg Ferrous Sulfate (Ferrous Sulfate 324 Mg Tablet.Dr) 324 mg PO DAILY [facility] Last Admin: 06/12/23 10:51 Dose: Not Given Fluticasone/Umeclidinium/Vilanterol (Fluticasone/Umeclidinium/Vilanterol 100/62.5/25 Blst.W.Dev) 1 puff INHALE RDAILY [facility] Last Admin: 06/12/23 10:51 Dose: Not Given Haloperidol (Haloperidol 5 Mg Tablet) 5 mg PO BID [facility] Last Admin: 06/12/23 22:12 Dose: 5 mg Hydroxyzine HCl (Hydroxyzine Hcl 25 Mg Tablet) 25 mg PO Q6H PRN PRN Reason: Anxiety Last Admin: 06/10/23 21:50 Dose: 25 mg Levothyroxine Sodium (Levothyroxine Sodium 25 Mcg Tablet) 25 mcg PO DAILY@0600 [facility] Last Admin: 06/12/23 05:19 Dose: 25 mcg Loratadine (Loratadine 10 Mg Tablet) 10 mg PO DAILY [facility] Last Admin: 06/12/23 10:52 Dose: Not Given Magnesium Hydroxide (Milk Of Magnesia 30 Ml Oral.Susp) 30 ml PO DAILY PRN PRN Reason: Constipation Magnesium Oxide (Magnesium Oxide 400 Mg Tablet) 400 mg [facility] Last Admin: 06/12/23 16:43 Dose: Not Given Mupirocin (Mupirocin 2 % Oint 22 Gm Tube) 1 appl TOPICAL BID PRN; Protocol PRN Reason: scalp lesions Last Admin: 06/11/23 16:47 Dose: 1 appl Risperidone (Risperidone 2 Mg Tablet) 2 mg PO BID [facility] Last Admin: 06/12/23 22:12 Dose: 2 mg Tamsulosin HCl (Tamsulosin Hcl 0.4 Mg Capsule) 0.4 mg PO BEDTIME [facility] Last Admin: 06/12/23 22:12 Dose: 0.4 mg Trazodone HCl (Trazodone Hcl 50 Mg Tablet) 50 mg PO BEDTIME PRN PRN Reason: Insomnia Last Admin: 06/10/23 21:51 Dose: 50 mg Allergies Allergies Allergy/AdvReac Type Severity Reaction Status Date / Time No Known Allergies Allergy Mild NOT Verified 06/03/23 18:57 APPLICABLE Assessment & Plan Assessment & Plan (1) Schizophrenia: Status: Acute Code(s): F20.9 - Schizophrenia, unspecified Plan Mr. Zaragoza is a 72 year-old male with hx of schizophrenia who was brought on a sect 12a due to pt exposing himself to the neighbors. Pt has been refusing medications at , becoming more agitated. On the unit, pt disorganized, refusing labs, selective about medications. PLAN 1. continue risperidone 2mg po BID. 2. filed sect /. 06/11/2023 Patient not taking medication psychotic refusing medical care on section 7 may need to get abdominal CT scan patient recently had nausea vomiting seems to be somewhat better today concerns regarding incarcerated hernia patient not able to make medical decisions at this time refusing lab 06/12/2023 Somewhat more cooperative today did take 1 dose of Haldol encourage medication labs and vital signs no acute abdominal pain patient may need eventual guardianship for clarity regarding need for repair of quite significant inguinal hernia that impacts the patient's quality of life Reason for continued inpatient stay Substantial Risk for: inability to function, rapid decompensation and med/psych decompensation Time Spent With Patient Time: Total time managing care of this patient today ____ minutes.
--- NOTE | 2023-06-13 05:56 | PC.NURSE ---
Addendum entered by Horacio Dempsey RN 06/13/23 06:53: pt declined labs for a second time at 0650 Original Note: pt took HS medications with a great deal of prompting, pt up at 0200 looking for snack, explained to pt he had fasting labs and could not eat until they were drawn, pt demanded for labs to be drawn immediately, stat pt/inr added to labs and phlebotomy called and came within 15 minutes, pt refused labs, no amount of education and prompting would get him to comply, attempted for 45 minutes
--- NOTE | 2023-06-13 10:30 | HO.PSYCHPN ---
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 Grandiose delusion fearful and paranoid concerns Insight/jdugment: impaired x 2. memory/cog: alert, not oriented to situation Judgment markedly impaired. 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 Insight/jdugment: impaired x 2. memory/cog: alert, not oriented to situation. Diagnostics Vital Signs (24Hr): BMI result Body Mass Index 17.2 Labs 06/04/23 02:14 06/04/23 02:14 Medications Medications Current Medications Acetaminophen (Acetaminophen 325 Mg Tablet) 650 mg PO Q6H PRN PRN Reason: Headache/Pain Mild Scale (1-3) Al Hydroxide/Mg Hydroxide (Magnesium Hydrox/Alum Hydrox 30 Ml Oral.Susp) 30 ml PO Q6H PRN PRN Reason: Heartburn/Nausea Albuterol Sulfate (Albuterol Sulfate 90 Mcg 8 Gm Inhaler) 1 puff INHALE RQ4H PRN PRN Reason: Wheezing/SOB Apixaban (Apixaban 5 Mg Tablet) 5 mg PO BID [facility] Last Admin: 06/13/23 08:50 Dose: Not Given Atorvastatin Calcium (Atorvastatin Calcium 40 Mg Tablet) 40 mg PO BEDTIME [place] Last Admin: 06/12/23 22:12 Dose: 40 mg Ferrous Sulfate (Ferrous Sulfate 324 Mg Tablet.Dr) 324 mg PO DAILY [facility] Last Admin: 06/13/23 08:50 Dose: Not Given Fluticasone/Umeclidinium/Vilanterol (Fluticasone/Umeclidinium/Vilanterol 100/62.5/25 Blst.W.Dev) 1 puff INHALE RDAILY [facility] Last Admin: 06/13/23 08:49 Dose: Not Given Haloperidol (Haloperidol 5 Mg Tablet) 5 mg PO BID [facility] Last Admin: 06/13/23 08:50 Dose: Not Given Hydroxyzine HCl (Hydroxyzine Hcl 25 Mg Tablet) 25 mg PO Q6H PRN PRN Reason: Anxiety Last Admin: 06/10/23 21:50 Dose: 25 mg Levothyroxine Sodium (Levothyroxine Sodium 25 Mcg Tablet) 25 mcg PO DAILY@0600 [facility] Last Admin: 06/13/23 05:18 Dose: Not Given Loratadine (Loratadine 10 Mg Tablet) 10 mg PO DAILY [facility] Last Admin: 06/13/23 08:50 Dose: Not Given Magnesium Hydroxide (Milk Of Magnesia 30 Ml Oral.Susp) 30 ml PO DAILY PRN PRN Reason: Constipation Magnesium Oxide (Magnesium Oxide 400 Mg Tablet) 400 mg PO BIDPC [facility] Last Admin: 06/13/23 08:49 Dose: Not Given Mupirocin (Mupirocin 2 % Oint 22 Gm Tube) 1 appl TOPICAL BID PRN; Protocol PRN Reason: scalp lesions Last Admin: 06/11/23 16:47 Dose: 1 appl Risperidone (Risperidone 2 Mg Tablet) 2 mg PO BID [facility] Last Admin: 06/13/23 08:49 Dose: Not Given Tamsulosin HCl (Tamsulosin Hcl 0.4 Mg Capsule) 0.4 mg PO BEDTIME [facility] Last Admin: 06/12/23 22:12 Dose: 0.4 mg Trazodone HCl (Trazodone Hcl 50 Mg Tablet) 50 mg PO BEDTIME PRN PRN Reason: Insomnia Last Admin: 06/10/23 21:51 Dose: 50 mg Allergies Allergies Allergy/AdvReac Type Severity Reaction Status Date / Time No Known Allergies Allergy Mild NOT Verified 06/03/23 18:57 APPLICABLE Assessment & Plan Assessment & Plan (1) Schizophrenia: Status: Acute Code(s): F20.9 - Schizophrenia, unspecified Plan Mr. Zaragoza is a 72 year-old male with hx of schizophrenia who was brought on a sect 12a due to pt exposing himself to the neighbors. Pt has been refusing medications at , becoming more agitated. On the unit, pt disorganized, refusing labs, selective about medications. PLAN 1. continue risperidone 2mg po BID. 2. filed sect 7/8. 06/11/2023 Patient not taking medication psychotic refusing medical care on section 7 may need to get abdominal CT scan patient recently had nausea vomiting seems to be somewhat better today concerns regarding incarcerated hernia patient not able to make medical decisions at this time refusing lab 06/12/2023 Somewhat more cooperative today did take 1 dose of Haldol encourage medication labs and vital signs no acute abdominal pain patient may need eventual guardianship for clarity regarding need for repair of quite significant inguinal hernia that impacts the patient's quality of life 06/13/2023 Patient may benefit from guardianship to make medical decisions Section [address] patient bizarre preoccupied Change Haldol to 10 mg bedtime Reason for continued inpatient stay Substantial Risk for: inability to function, rapid decompensation and med/psych decompensation Time Spent With Patient Time: Total time managing care of this patient today ____ minutes.
[2023-06-13 18:00] VITALS: RESP 18
[2023-06-14] MEDS: Levothyroxine Sodium 25 MCG TABLET PO (05:02)
--- NOTE | 2023-06-14 09:10 | HO.PSYCHPN ---
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 He asks when can he leave the hospital, which pt was informed that there is a court hearing coming up tomorrow. Pt declined VS again. He also refused labs to monitor elevated renal function. He also declined all medications. 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 Grandiose delusion fearful and paranoid concerns Insight/jdugment: impaired x 2. memory/cog: alert, not oriented to situation Judgment markedly impaired. Does not believe he has a mental illness difficulty weighing medical concerns Diagnostics Vital Signs (24Hr): Vital Signs - 24 hr 06/13/23 18:00 Respiratory Rate 18 BMI result Body Mass Index 17.2 Labs 06/04/23 02:14 06/04/23 02:14 Medications Medications Current Medications Acetaminophen (Acetaminophen 325 Mg Tablet) 650 mg PO Q6H PRN PRN Reason: Headache/Pain Mild Scale (1-3) Al Hydroxide/Mg Hydroxide (Magnesium Hydrox/Alum Hydrox 30 Ml Oral.Susp) 30 ml PO Q6H PRN PRN Reason: Heartburn/Nausea Albuterol Sulfate (Albuterol Sulfate 90 Mcg 8 Gm Inhaler) 1 puff INHALE RQ4H PRN PRN Reason: Wheezing/SOB Apixaban (Apixaban 5 Mg Tablet) 5 mg PO BID [facility] Last Admin: 06/14/23 09:03 Dose: Not Given Atorvastatin Calcium (Atorvastatin Calcium 40 Mg Tablet) 40 mg PO BEDTIME [facility] Last Admin: 06/13/23 21:21 Dose: Not Given Ferrous Sulfate (Ferrous Sulfate 324 Mg Tablet.) 324 mg PO DAILY [facility] Last Admin: 06/14/23 09:03 Dose: Not Given Fluticasone/Umeclidinium/Vilanterol (Fluticasone/Umeclidinium/Vilanterol 100/62.5/25 Blst.W.Dev) 1 puff INHALE RDAILY [facility] Last Admin: 06/14/23 09:02 Dose: Not Given Haloperidol (Haloperidol 5 Mg Tablet) 5 mg PO BID [facility] Last Admin: 06/14/23 09:03 Dose: Not Given Hydroxyzine HCl (Hydroxyzine Hcl 25 Mg Tablet) 25 mg PO Q6H PRN PRN Reason: Anxiety Last Admin: 06/10/23 21:50 Dose: 25 mg Levothyroxine Sodium (Levothyroxine Sodium 25 Mcg Tablet) 25 mcg PO DAILY@0600 [facility] Last Admin: 06/14/23 05:02 Dose: 25 mcg Loratadine (Loratadine 10 Mg Tablet) 10 mg PO DAILY [facility] Last Admin: 06/14/23 09:03 Dose: Not Given Magnesium Hydroxide (Milk Of Magnesia 30 Ml Oral.Susp) 30 ml PO DAILY PRN PRN Reason: Constipation Magnesium Oxide (Magn[facility] 400 Mg Tablet) [facility] Last Admin: 06/14/23 09:03 Dose: Not Given Mupirocin (Mupirocin 2 % Oint 22 Gm Tube) 1 appl TOPICAL BID PRN; Protocol PRN Reason: scalp lesions Last Admin: 06/11/23 16:47 Dose: 1 appl Risperidone (Risperidone 2 Mg Tablet) 2 mg PO BID [facility] Last Admin: 06/14/23 09:03 Dose: Not Given Tamsulosin HCl (Tamsulosin Hcl 0.4 Mg Capsule) 0.4 mg PO BEDTIME [facility] Last Admin: 06/13/23 21:23 Dose: Not Given Trazodone HCl (Trazodone Hcl 50 Mg Tablet) 50 mg PO BEDTIME PRN PRN Reason: Insomnia Last Admin: 06/10/23 21:51 Dose: 50 mg Allergies Allergies Allergy/AdvReac Type Severity Reaction Status Date / Time No Known Allergies Allergy Mild NOT Verified 06/03/23 18:57 APPLICABLE Assessment & Plan Assessment & Plan (1) Schizophrenia: Status: Acute Code(s): F20.9 - Schizophrenia, unspecified Plan Mr. Zaragoza is a 72 year-old male with hx of schizophrenia who was brought on a sect 12a due to pt exposing himself to the neighbors. Pt has been refusing medications at , becoming more agitated. On the unit, pt disorganized, refusing labs, selective about medications. PLAN 1. continue risperidone 2mg po BID. 2. filed sect 09/26. 06/11/2023 Patient not taking medication psychotic refusing medical care on section 7 may need to get abdominal CT scan patient recently had nausea vomiting seems to be somewhat better today concerns regarding incarcerated hernia patient not able to make medical decisions at this time refusing lab 06/12/2023 Somewhat more cooperative today did take 1 dose of Haldol encourage medication labs and vital signs no acute abdominal pain patient may need eventual guardianship for clarity regarding need for repair of quite significant inguinal hernia that impacts the patient's quality of life 06/13/2023 Patient may benefit from guardianship to make medical decisions Section [address] patient bizarre preoccupied Change Haldol to 10 mg bedtime 06/[address] tomorrow. Reason for continued inpatient stay Substantial Risk for: inability to function Time Spent With Patient Time: Total time managing care of this patient today ____ minutes.
[2023-06-14 11:57] VITALS: BMI 22.8
--- NOTE | 2023-06-14 12:00 | MHC.CLN ---
NUTRITION PATIENT WITH VARIABLE INTAKE. ON 06/12, TOOK BITES ONLY. WILL TAKE FLUIDS. ADDING ENSURE TID TO INCREASE KCAL/NUTRITIONAL INTAKE. SUPPLEMENT PROVIDES 1050 KCALS, 60 G PROTEIN. WEIGHT FROM UNIT WEIGHT [id number] 06/10/23. PATIENT APPEARS THIN. DIET=CHOPPED WITH ENSURE TID. MONITOR FOR DIET TOLERANCE, INTAKE AND WEIGHT. RD TO MONITOR WEEKLY.
--- NOTE | 2023-06-14 13:32 | PC.NURSE ---
Patient has been uncooperative with staff today. He has declined vitals to be taken and refused all scheduled medications when attempted multiple times throughout the morning. Refusing to interact with this nurse, MARY ANN Caldwell notified via tiger text
--- NOTE | 2023-06-14 18:08 | MHC.SL.SWA ---
Speech Pathologist Impression: Risk of aspiration, oropharyngeal dysphagia Risk of Aspiration Due to: Edentulous, limited insight Dysphasia Diet Status: Continue on chopped diet Liquid Consistency and Strategies for Safe Swallow: Liquid Intake Recommendation: Thin Liquid Intake Strategies: Small Sips Solid Food Consistency: Dietary Recommendations: Chopped/Advanced (NDD3) Additional Modifications to Solid Foods: D/t patient's edentulous status, recommend continue on CHOPPED/ADVANCED (NDD3) diet and THIN liquids, pills WHOLE or CRUSHED in PUREE. Patient will require at minimum direct supervision at meal time, provide assistance as needed. Oral Medication Intake: Whole with Puree Please contact the pharmacy regarding appropriate crushable or liquid drug formulations that are available whenever modified delivery is recommended. Compensatory Strategies and Precautions to be Taken for Safe Swallow: Sitting Upright (90 deg) Double Swallow Small Bites and Sips Alternate Liquids/Solids Rate of Ingestion Change Oral Check Avoid Specific Foods Supervision While Eating and Drinking for Safe Swallow: Total Supervision (1:1) Foods to Avoid: Hard, dry, or crunchy foods Swallowing Recommended Treatments: Compens. Strategy Educat. 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
[2023-06-14 19:00] VITALS: BP 125/63; PULSE 94; RESP 18; TEMP 36.3; O2SAT 100
[2023-06-14] MEDS: Atorvastatin Calcium 40 MG TABLET PO (20:28)
[2023-06-14] MEDS: Tamsulosin HCL 0.4 MG CAPSULE PO (20:28)
[2023-06-14] MEDS: Apixaban 5 MG TABLET PO (20:28)
--- NOTE | 2023-06-15 14:20 | MHC.SPEECHCO ---
Pt declined PO when attempted after lunch. He was in his room in the position with his blanket covering his head. He is specifically requesting crackers and cheese only. Per RN, he was in the dining area for Lunch and observed to be coughing while drinking his ensure. His tray was <25% finished. BETTING CLERK will re-attempt tomorrow.
--- NOTE | 2023-06-15 16:20 | HO.PSYCHPN ---
Subjective Subjective Date of Service: 06/15/23 Reason For Visit: Psychosis Subjective Notes: Section 8 Interim History: Court hearing held today- petition approved. Pt continues to decline medications, stating he does not have medical illness or mental illness. He reports people are not who they say they are and he does not trust them. He denies SI/HI. 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 Grandiose delusion fearful and paranoid concerns Insight/jdugment: impaired x 2. memory/cog: alert, not oriented to situation Judgment markedly impaired. Does not believe he has a mental illness difficulty weighing medical concerns Diagnostics Vital Signs (24Hr): Vital Signs - 24 hr 06/14/23 19:00 Temperature 97.4 F Pulse Rate 94 Respiratory Rate 18 Blood Pressure 125/63 Pulse Oximetry 100 Oxygen Delivery Method Room Air BMI result Body Mass Index 22.8 Labs 06/04/23 02:14 06/04/23 02:14 Medications Medications Current Medications Acetaminophen (Acetaminophen 325 Mg Tablet) 650 mg PO Q6H PRN PRN Reason: Headache/Pain Mild Scale (1-3) Al Hydroxide/Mg Hydroxide (Magnesium Hydrox/Alum Hydrox 30 Ml Oral.Susp) 30 ml PO Q6H PRN PRN Reason: Heartburn/Nausea Albuterol Sulfate (Albuterol Sulfate 90 Mcg 8 Gm Inhaler) 1 puff INHALE RQ4H PRN PRN Reason: Wheezing/SOB Apixaban (Apixaban 5 Mg Tablet) 5 mg PO BID [facility] Last Admin: 06/15/23 09:42 Dose: Not Given Atorvastatin Calcium (Atorvastatin Calcium 40 Mg Tablet) 40 mg PO BEDTIME [facility] Last Admin: 06/14/23 20:28 Dose: 40 mg Ferrous Sulfate (Ferrous Sulfate 324 Mg Tablet.) 324 mg PO DAILY [facility] Last Admin: 06/15/23 09:42 Dose: Not Given Fluticasone/Umeclidinium/Vilanterol (Fluticasone/Umeclidinium/Vilanterol 100/62.5/25 Blst.W.Dev) 1 puff INHALE RDAILY [facility] Last Admin: 06/15/23 09:39 Dose: Not Given Haloperidol (Haloperidol 5 Mg Tablet) 5 mg PO BID [facility] Last Admin: 06/15/23 09:42 Dose: Not Given Hydroxyzine HCl (Hydroxyzine Hcl 25 Mg Tablet) 25 mg PO Q6H PRN PRN Reason: Anxiety Last Admin: 06/10/23 21:50 Dose: 25 mg Levothyroxine Sodium (Levothyroxine Sodium 25 Mcg Tablet) 25 mcg PO DAILY@0600 [facility] Last Admin: 06/15/23 06:15 Dose: Not Given Loratadine (Loratadine 10 Mg Tablet) 10 mg PO DAILY [facility] Last Admin: 06/15/23 09:42 Dose: Not Given Magnesium Hydroxide (Milk Of Magnesia 30 Ml Oral.Susp) 30 ml PO DAILY PRN PRN Reason: Constipation [facility] Admin: 06/15/23 09:40 Dose: Not Given Mupirocin (Mupirocin 2 % Oint 22 Gm Tube) 1 appl TOPICAL BID PRN; Protocol PRN Reason: scalp lesions Last Admin: 06/11/23 16:47 Dose: 1 appl Risperidone (Risperidone 2 Mg Tablet) 2 mg PO BID [facility] Last Admin: 06/15/23 09:43 Dose: Not Given Tamsulosin HCl (Tamsulosin Hcl 0.4 Mg Capsule) 0.4 mg PO BEDTIME [facility] Last Admin: 06/14/23 20:28 Dose: 0.4 mg Trazodone HCl (Trazodone Hcl 50 Mg Tablet) 50 mg PO BEDTIME PRN PRN Reason: Insomnia Last Admin: 06/10/23 21:51 Dose: 50 mg Allergies Allergies Allergy/AdvReac Type Severity Reaction Status Date / Time No Known Allergies Allergy Mild NOT Verified 06/03/23 18:57 APPLICABLE Assessment & Plan Assessment & Plan (1) Schizophrenia: Status: Acute Code(s): F20.9 - Schizophrenia, unspecified Plan Mr. Zaragoza is a 72 year-old male with hx of schizophrenia who was brought on a sect 12a due to pt exposing himself to the neighbors. Pt has been refusing medications at , becoming more agitated. On the unit, pt disorganized, refusing labs, selective about medications. PLAN 1. continue risperidone 2mg po BID. 2. filed sect 09/26. 06/11/2023 Patient not taking medication psychotic refusing medical care on section 7 may need to get abdominal CT scan patient recently had nausea vomiting seems to be somewhat better today concerns regarding incarcerated hernia patient not able to make medical decisions at this time refusing lab 06/12/2023 Somewhat more cooperative today did take 1 dose of Haldol encourage medication labs and vital signs no acute abdominal pain patient may need eventual guardianship for clarity regarding need for repair of quite significant inguinal hernia that impacts the patient's quality of life 06/13/2023 Patient may benefit from guardianship to make medical decisions Section [address] patient bizarre preoccupied Change Haldol to 10 mg bedtime 06/[address] hearing tomorrow. 06/14 risperidone 2mg po BID, back IM prolixin 5mg IM if pt refuses oral risperidone. Plan to do ADORNO of risperidone Reason for continued inpatient stay Substantial Risk for: inability to function Time Spent With Patient Time: Total time managing care of this patient today ____ minutes.
[2023-06-15] MEDS: Magnesium Oxide 400 MG TABLET PO (16:54)
[2023-06-15 19:57] VITALS: BP 91/56; PULSE 89; RESP 16; TEMP 36.3; O2SAT 98
[2023-06-15] MEDS: Tamsulosin HCL 0.4 MG CAPSULE PO (20:30)
[2023-06-15] MEDS: Atorvastatin Calcium 40 MG TABLET PO (20:30)
[2023-06-15] MEDS: Apixaban 5 MG TABLET PO (20:30)
[2023-06-15] MEDS: risperiDONE 2 MG TABLET PO (20:30)
[2023-06-16] MEDS: Levothyroxine Sodium 25 MCG TABLET PO (06:22)
--- NOTE | 2023-06-16 09:39 | HO.PSYCHPN ---
Subjective Subjective Date of Service: 06/16/23 Reason For Visit: Psychosis Subjective Notes: Section 8 Interim History: Pt slept through the night. Pt mostly in his room. He tells this continuity writer that he thought I was Krystin Olson from his testifying yesterday in court. 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 He asks what the plan is- this continuity writer reinforced that plan is to get him more stable on medications and plan for dc as soon as possible. He is on CO due to intrusive behaviors to peers. 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 Grandiose delusion fearful and paranoid concerns Insight/jdugment: impaired x 2. memory/cog: alert, not oriented to situation Judgment markedly impaired. Does not believe he has a mental illness difficulty weighing medical concerns Diagnostics Vital Signs (24Hr): Vital Signs - 24 hr 06/15/23 19:57 Temperature 97.3 F Pulse Rate 89 Respiratory Rate 16 Blood Pressure 91/56 L Pulse Oximetry 98 Oxygen Delivery Method Room Air BMI result Body Mass Index 22.8 Labs 06/04/23 02:14 06/04/23 02:14 Medications Medications Current Medications Acetaminophen (Acetaminophen 325 Mg Tablet) 650 mg PO Q6H PRN PRN Reason: Headache/Pain Mild Scale (1-3) Al Hydroxide/Mg Hydroxide (Magnesium Hydrox/Alum Hydrox 30 Ml Oral.Susp) 30 ml PO Q6H PRN PRN Reason: Heartburn/Nausea Albuterol Sulfate (Albuterol Sulfate 90 Mcg 8 Gm Inhaler) 1 puff INHALE RQ4H PRN PRN Reason: Wheezing/SOB Apixaban (Apixaban 5 Mg Tablet) 5 mg PO BID [facility] Last Admin: 06/15/23 20:30 Dose: 5 mg Atorvastatin Calcium (Atorvastatin Calcium 40 Mg Tablet) 40 mg PO BEDTIME [facility] Last Admin: 06/15/23 20:30 Dose: 40 mg Ferrous Sulfate (Ferrous Sulfate 324 Mg Tablet.Dr) 324 mg PO DAILY [facility] Last Admin: 06/15/23 09:42 Dose: Not Given Fluphenazine HCl (Fluphenazine Hcl 2.5 Mg/Ml 10 Ml Vial) 5 mg IM BID PRN PRN Reason: if refuses oral risperidone Fluticasone/Umeclidinium/Vilanterol (Fluticasone/Umeclidinium/Vilanterol 100/62.5/25 Blst.W.Dev) 1 puff INHALE RDAILY [facility] Last Admin: 06/15/23 09:39 Dose: Not Given Hydroxyzine HCl (Hydroxyzine Hcl 25 Mg Tablet) 25 mg PO Q6H PRN PRN Reason: Anxiety Last Admin: 06/10/23 21:50 Dose: 25 mg Levothyroxine Sodium (Levothyroxine Sodium 25 Mcg Tablet) 25 mcg PO DAILY@0600 [facility] Last Admin: 06/16/23 06:22 Dose: 25 mcg Loratadine (Loratadine 10 Mg Tablet) 10 mg PO DAILY [facility] Last Admin: 06/15/23 09:42 Dose: Not Given Magnesium Hydroxide (Milk Of Magnesia 30 Ml Oral.Susp) 30 ml PO DAILY PRN PRN Reason: Constipation Magnesium Oxide (Magnesium Oxide 400 Mg Tablet) 400 mg PO BIDPC [facility] Last Admin: 06/15/23 16:54 Dose: 400 mg Mupirocin (Mupirocin 2 % Oint 22 Gm Tube) 1 appl TOPICAL BID PRN; Protocol PRN Reason: scalp lesions Last Admin: 06/11/23 16:47 Dose: 1 appl Risperidone (Risperidone 2 Mg Tablet) 2 mg PO BID [facility] Last Admin: 06/15/23 20:30 Dose: 2 mg Tamsulosin HCl (Tamsulosin Hcl 0.4 Mg Capsule) 0.4 mg PO BEDTIME [facility] Last Admin: 06/15/23 20:30 Dose: 0.4 mg Trazodone HCl (Trazodone Hcl 50 Mg Tablet) 50 mg PO BEDTIME PRN PRN Reason: Insomnia Last Admin: 06/10/23 21:51 Dose: 50 mg Allergies Allergies Allergy/AdvReac Type Severity Reaction Status Date / Time No Known Allergies Allergy Mild NOT Verified 06/03/23 18:57 APPLICABLE Assessment & Plan Assessment & Plan (1) Schizophrenia: Status: Acute Code(s): F20.9 - Schizophrenia, unspecified Plan Mr. Zaragoza is a 72 year-old male with hx of schizophrenia who was brought on a sect 12a due to pt exposing himself to the neighbors. Pt has been refusing medications at , becoming more agitated. On the unit, pt disorganized, refusing labs, selective about medications. PLAN 1. continue risperidone 2mg po BID. 2. filed sect 7/8. 06/11/2023 Patient not taking medication psychotic refusing medical care on section 7 may need to get abdominal CT scan patient recently had nausea vomiting seems to be somewhat better today concerns regarding incarcerated hernia patient not able to make medical decisions at this time refusing lab 06/12/2023 Somewhat more cooperative today did take 1 dose of Haldol encourage medication labs and vital signs no acute abdominal pain patient may need eventual guardianship for clarity regarding need for repair of quite significant inguinal hernia that impacts the patient's quality of life 06/13/2023 Patient may benefit from guardianship to make medical decisions Section [address] patient bizarre preoccupied Change Haldol to 10 mg bedtime 06/[address] hearing tomorrow. 06/14 risperidone 2mg po BID, back IM prolixin 5mg IM if pt refuses oral risperidone. Plan to do ADORNO of risperidone 06/15 continue tx. Reason for continued inpatient stay Substantial Risk for: inability to function Time Spent With Patient Time: Total time managing care of this patient today ____ minutes.
[2023-06-16] MEDS: risperiDONE 2 MG TABLET PO ×2 (11:57→21:00)
--- NOTE | 2023-06-16 17:27 | MHC.SL.SWA ---
Risk of Aspiration Due to: Risk of aspiration Dysphasia Diet Status: CHOPPED and THIN Liquid Consistency and Strategies for Safe Swallow: Liquid Intake Recommendation: Thin Liquid Intake Strategies: Small Sips Solid Food Consistency: Dietary Recommendations: Chopped/Advanced (NDD3) Additional Modifications to Solid Foods: D/t patient's edentulous status, recommend continue on CHOPPED/ADVANCED (NDD3) diet and THIN liquids, pills WHOLE or CRUSHED in PUREE. Patient will require at minimum direct supervision at meal time, provide assistance as needed. Oral Medication Intake: Whole/crushed with Puree Please contact the pharmacy regarding appropriate crushable or liquid drug formulations that are available whenever modified delivery is recommended. Compensatory Strategies and Precautions to be Taken for Safe Swallow: Sitting Upright (90 deg) Double Swallow Small Bites and Sips Alternate Liquids/Solids Rate of Ingestion Change Oral Check Avoid Specific Foods Supervision While Eating and Drinking for Safe Swallow: Total Supervision (1:1) Foods to Avoid: Hard, dry, or crunchy foods Swallowing Recommended Treatments: Compens. Strategy Educat. Recommendation for Speech: Inpatient Speech Therapy D/t patient's edentulous status, recommend continue on CHOPPED/ADVANCED (NDD3) diet and THIN liquids, pills WHOLE or CRUSHED in PUREE. Patient will require at minimum direct supervision at meal time, provide assistance as needed. Recommend behavioral strategies of trying encouragement to not touch his bracelet while eating to reduce the risk of aspiration. Recommend 1 f/u with PROJECT SUPERINTENDENT to monitor toleration of diet. Software Development Coordinator Clinican/Clinical Fellow: No Supervisory Statement: I have reviewed and agree with the student/clinical fellow's documentation: N/A Speech Language Pathologist: Nidia Marie M.A., CCC-PROJECT SUPERINTENDENT
[2023-06-16] MEDS: Magnesium Oxide 400 MG TABLET PO (17:41)
[2023-06-16] MEDS: traZODone HCL 50 MG TABLET PO (21:00)
[2023-06-16] MEDS: hydrOXYzine HCL 25 MG TABLET PO (21:00)
[2023-06-16] MEDS: Atorvastatin Calcium 40 MG TABLET PO (21:00)
[2023-06-16] MEDS: Apixaban 5 MG TABLET PO (21:00)
[2023-06-16] MEDS: Tamsulosin HCL 0.4 MG CAPSULE PO (21:00)
[2023-06-16 21:03] VITALS: BP 116/58; PULSE 93; RESP 18; TEMP 36.4; O2SAT 99
[2023-06-17 06:00] VITALS: BP 98/58; PULSE 93; RESP 16; TEMP 36.4; O2SAT 98
[2023-06-17] MEDS: Levothyroxine Sodium 25 MCG TABLET PO (07:11)
[2023-06-17 08:52] VITALS: BMI 23.8
[2023-06-17] MEDS: Magnesium Oxide 400 MG TABLET PO ×2 (09:31→16:53)
[2023-06-17] MEDS: Loratadine 10 MG TABLET PO (09:31)
[2023-06-17] MEDS: risperiDONE 2 MG TABLET PO ×2 (09:31→20:43)
[2023-06-17] MEDS: Apixaban 5 MG TABLET PO (09:31)
[2023-06-17] MEDS: Ferrous Sulfate 324 MG TABLET.DR PO (09:36)
[2023-06-17] MEDS: LORazepam 1 MG TABLET 2 MG PO (09:43)
--- NOTE | 2023-06-17 12:17 | P.PNPSI_ITS ---
Subjective Subjective Date of Service: 06/17/23 Reason For Visit: Psychosis Subjective Notes: Section 8 Interim History: Pt slept through the night. Pt outside in community room. He was agitated, yelling at another pt. He was hostile when meeting with this creative services writer, demanding to be discharged, pt reminded of plan to get him stable on medications and then plan for discharge. He denies SI/HI. He reports I am not who I say I am. He is suspicious and paranoid with peers and staff. Later in the day, he was more intrusive to peers and entering their room, went back to CO. 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 Grandiose delusion fearful and paranoid concerns Insight/jdugment: impaired x 2. memory/cog: alert, not oriented to situation Judgment markedly impaired. 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 Insight/jdugment: impaired x 2. memory/cog: alert, not oriented to situation. Diagnostics Vital Signs (24Hr): Vital Signs - 24 hr 06/16/23 21:03 06/17/23 06:00 Temperature 97.5 F 97.5 F Pulse Rate 93 93 Respiratory Rate 18 16 Blood Pressure 116/58 L 98/58 L Pulse Oximetry 99 98 Oxygen Delivery Method Room Air Room Air BMI result Body Mass Index 23.8 Labs 06/04/23 02:14 06/04/23 02:14 Medications Medications Current Medications Acetaminophen (Acetaminophen 325 Mg Tablet) 650 mg PO Q6H PRN PRN Reason: Headache/Pain Mild Scale (1-3) Al Hydroxide/Mg Hydroxide (Magnesium Hydrox/Alum Hydrox 30 Ml Oral.Susp) 30 ml PO Q6H PRN PRN Reason: Heartburn/Nausea Albuterol Sulfate (Albuterol Sulfate 90 Mcg 8 Gm Inhaler) 1 puff INHALE RQ4H PRN PRN Reason: Wheezing/SOB Apixaban (Apixaban 5 Mg Tablet) 5 mg PO BID [facility] Last Admin: 06/17/23 09:31 Dose: 5 mg Atorvastatin Calcium (Atorvastatin Calcium 40 Mg Tablet) 40 mg PO BEDTIME [facility] Last Admin: 06/16/23 21:00 Dose: 40 mg Ferrous Sulfate (Ferrous Sulfate 324 Mg Tablet.Dr) 324 mg PO DAILY [facility] Last Admin: 06/17/23 09:36 Dose: 324 mg Fluphenazine HCl (Fluphenazine Hcl 2.5 Mg/Ml 10 Ml Vial) 5 mg IM BID PRN PRN Reason: if refuses oral risperidone Fluticasone/Umeclidinium/Vilanterol (Fluticasone/Umeclidinium/Vilanterol 100/62.5/25 Blst.W.Dev) 1 puff INHALE RDAILY [facility] Last Admin: 06/17/23 09:38 Dose: Not Given Hydroxyzine HCl (Hydroxyzine Hcl 25 Mg Tablet) 25 mg PO Q6H PRN PRN Reason: Anxiety Last Admin: 06/16/23 21:00 Dose: 25 mg Levothyroxine Sodium (Levothyroxine Sodium 25 Mcg Tablet) 25 mcg PO DAILY@0600 [facility] Last Admin: 06/17/23 07:11 Dose: 25 mcg Loratadine (Loratadine 10 Mg Tablet) 10 mg PO DAILY [facility] Last Admin: 06/17/23 09:31 Dose: 10 mg Magnesium Hydroxide (Milk Of Magnesia 30 Ml Oral.Susp) 30 ml PO DAILY PRN PRN Reason: Constipation Magnesium Oxide (Magnesium Oxide 400 Mg Tablet) 400 mg PO BIDPC [facility] Last Admin: 06/17/23 09:31 Dose: 400 mg Mupirocin (Mupirocin 2 % Oint 22 Gm Tube) 1 appl TOPICAL BID PRN; Protocol PRN Reason: scalp lesions Last Admin: 06/11/23 16:47 Dose: 1 appl Risperidone (Risperidone 2 Mg Tablet) 2 mg PO BID [facility] Last Admin: 06/17/23 09:31 Dose: 2 mg Tamsulosin HCl (Tamsulosin Hcl 0.4 Mg Capsule) 0.4 mg PO BEDTIME [facility] Last Admin: 06/16/23 21:00 Dose: 0.4 mg Trazodone HCl (Trazodone Hcl 50 Mg Tablet) 50 mg PO BEDTIME PRN PRN Reason: Insomnia Last Admin: 06/16/23 21:00 Dose: 50 mg Allergies Allergies Allergy/AdvReac Type Severity Reaction Status Date / Time No Known Allergies Allergy Mild NOT Verified 06/03/23 18:57 APPLICABLE Assessment & Plan Assessment & Plan (1) Schizophrenia: Status: Acute Code(s): F20.9 - Schizophrenia, unspecified Plan Mr. Zaragoza is a 72 year-old male with hx of schizophrenia who was brought on a sect 12a due to pt exposing himself to the neighbors. Pt has been refusing medications at , becoming more agitated. On the unit, pt disorganized, refusing labs, selective about medications. PLAN 1. continue risperidone 2mg po BID. 2. filed sect 7/8. 06/11/2023 Patient not taking medication psychotic refusing medical care on section 7 may need to get abdominal CT scan patient recently had nausea vomiting seems to be somewhat better today concerns regarding incarcerated hernia patient not able to make medical decisions at this time refusing lab 06/12/2023 Somewhat more cooperative today did take 1 dose of Haldol encourage medication labs and vital signs no acute abdominal pain patient may need eventual guardianship for clarity regarding need for repair of quite significant inguinal hernia that impacts the patient's quality of life 06/13/2023 Patient may benefit from guardianship to make medical decisions Section [address] patient bizarre preoccupied Change Haldol to 10 mg bedtime 06/[address] hearing tomorrow. 06/14 risperidone 2mg po BID, back IM prolixin 5mg IM if pt refuses oral risperidone. Plan to do ADORNO of risperidone 06/15 continue tx. 06/16 continue tx. 06/17 continue tx. Reason for continued inpatient stay Substantial Risk for: inability to function Time Spent With Patient Time: Total time managing care of this patient today ____ minutes.
--- NOTE | 2023-06-17 16:26 | MHC.SLORD ---
Speech Language Pathology Order Status: Attempted to see patient at lunch, per RN, patient in room, refusing to come out, refusing food. Re-attempted pm, RN reporting patient still in room, now sleeping. HEAD PORTER BAGGAGE has seen patient X2 with swallowing concerns associated with behavioral disturbance, patient on least restrictive diet of Chopped/Advanced (NDD3) with thin liquids and tolerating. HEAD PORTER BAGGAGE recommends DC from speech services at this time. Please re-contact if additional concerns arise.
[2023-06-17 19:40] VITALS: RESP 18
[2023-06-17] MEDS: Tamsulosin HCL 0.4 MG CAPSULE PO (20:43)
[2023-06-18] MEDS: Levothyroxine Sodium 25 MCG TABLET PO (05:03)
[2023-06-18] MEDS: Magnesium Oxide 400 MG TABLET PO ×2 (09:00→16:47)
[2023-06-18] MEDS: risperiDONE 2 MG TABLET PO ×2 (09:00→21:00)
[2023-06-18] MEDS: Loratadine 10 MG TABLET PO (09:00)
[2023-06-18] MEDS: Ferrous Sulfate 324 MG TABLET.DR PO (09:00)
[2023-06-18] MEDS: Apixaban 5 MG TABLET PO ×2 (09:00→21:00)
[2023-06-18] MEDS: Divalproex Sodium Sprinkles 125 MG CAP.DR.SPR 500 MG PO ×2 (11:51→21:00)
--- NOTE | 2023-06-18 16:14 | P.PNPSI_ITS ---
Subjective Subjective Date of Service: 06/18/23 Reason For Visit: Psychosis Subjective Notes: Section 8 Interim History: Pt slept through the night. Pt tea has been taking oral antipsychotic with much encouragement. He asks this expert medical writer if he can be discharged today. When told that this is not the plan he states it doesn't matter, I am living anyway. He denies SI/HI. He is irritable. 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 Grandiose delusion fearful and paranoid concerns Insight/jdugment: impaired x 2. memory/cog: alert, not oriented to situation Judgment markedly impaired. Does not believe he has a mental illness difficulty weighing medical concerns Diagnostics Vital Signs (24Hr): Vital Signs - 24 hr 06/17/23 19:40 Respiratory Rate 18 BMI result Body Mass Index 23.8 Labs 06/04/23 02:14 06/04/23 02:14 Medications Medications Current Medications Acetaminophen (Acetaminophen 325 Mg Tablet) 650 mg PO Q6H PRN PRN Reason: Headache/Pain Mild Scale (1-3) Al Hydroxide/Mg Hydroxide (Magnesium Hydrox/Alum Hydrox 30 Ml Oral.Susp) 30 ml PO Q6H PRN PRN Reason: Heartburn/Nausea Albuterol Sulfate (Albuterol Sulfate 90 Mcg 8 Gm Inhaler) 1 puff INHALE RQ4H PRN PRN Reason: Wheezing/SOB Apixaban (Apixaban 5 Mg Tablet) 5 mg PO BID [facility] Last Admin: 06/18/23 09:00 Dose: 5 mg Atorvastatin Calcium (Atorvastatin Calcium 40 Mg Tablet) 40 mg PO BEDTIME [facility] Last Admin: 06/17/23 20:43 Dose: Not Given Divalproex Sodium (Divalproex Sodium Sprinkles 125 Mg ) 500 mg PO BID [facility] Last Admin: 06/18/23 11:51 Dose: 500 mg Ferrous Sulfate (Ferrous Sulfate 324 Mg Tablet.Dr) 324 mg PO DAILY [facility] Last Admin: 06/18/23 09:00 Dose: 324 mg Fluphenazine HCl (Fluphenazine Hcl 2.5 Mg/Ml 10 Ml Vial) 5 mg IM BID PRN PRN Reason: if refuses oral risperidone Fluphenazine HCl (Fluphenazine Hcl 5 Mg Tablet) 5 mg PO BID [facility] Fluticasone/Umeclidinium/Vilanterol (Fluticasone/Umeclidinium/Vilanterol 100/62.5/25 Blst.W.Dev) 1 puff INHALE RDAILY [facility] Last Admin: 06/18/23 09:01 Dose: Not Given Hydroxyzine HCl (Hydroxyzine Hcl 25 Mg Tablet) 25 mg PO Q6H PRN PRN Reason: Anxiety Last Admin: 06/16/23 21:00 Dose: 25 mg Levothyroxine Sodium (Levothyroxine Sodium 25 Mcg Tablet) 25 mcg PO DAILY@0600 [facility] Last Admin: 06/18/23 05:03 Dose: 25 mcg Loratadine (Loratadine 10 Mg Tablet) 10 mg PO DAILY [facility] Last Admin: 06/18/23 09:00 Dose: 10 mg Magnesium Hydroxide (Milk Of Magnesia 30 Ml Oral.Susp) 30 ml PO DAILY PRN PRN Reason: Constipation Magnesium Oxide (Magnesium Oxide 400 Mg Tablet) 400 mg PO BIDPC [facility] Last Admin: 06/18/23 09:00 Dose: 400 mg Mupirocin (Mupirocin 2 % Oint 22 Gm Tube) 1 appl TOPICAL BID PRN; Protocol PRN Reason: scalp lesions Last Admin: 06/11/23 16:47 Dose: 1 appl Risperidone (Risperidone 2 Mg Tablet) 2 mg PO BID [facility] Last Admin: 06/18/23 09:00 Dose: 2 mg Tamsulosin HCl (Tamsulosin Hcl 0.4 Mg Capsule) 0.4 mg PO BEDTIME [facility] Last Admin: 06/17/23 20:43 Dose: 0.4 mg Trazodone HCl (Trazodone Hcl 50 Mg Tablet) 50 mg PO BEDTIME PRN PRN Reason: Insomnia Last Admin: 06/16/23 21:00 Dose: 50 mg Allergies Allergies Allergy/AdvReac Type Severity Reaction Status Date / Time No Known Allergies Allergy Mild NOT Verified 06/03/23 18:57 APPLICABLE Assessment & Plan Assessment & Plan (1) Schizophrenia: Status: Acute Code(s): F20.9 - Schizophrenia, unspecified Plan Mr. Zaragoza is a 72 year-old male with hx of schizophrenia who was brought on a sect 12a due to pt exposing himself to the neighbors. Pt has been refusing medications at , becoming more agitated. On the unit, pt disorganized, refusing labs, selective about medications. PLAN 1. continue risperidone 2mg po BID. 2. filed sect 7/8. 06/11/2023 Patient not taking medication psychotic refusing medical care on section 7 may need to get abdominal CT scan patient recently had nausea vomiting seems to be somewhat better today concerns regarding incarcerated hernia patient not able to make medical decisions at this time refusing lab 06/12/2023 Somewhat more cooperative today did take 1 dose of Haldol encourage medication labs and vital signs no acute abdominal pain patient may need eventual guardianship for clarity regarding need for repair of quite significant inguinal hernia that impacts the patient's quality of life 06/13/2023 Patient may benefit from guardianship to make medical decisions Section [address] patient bizarre preoccupied Change Haldol to 10 mg bedtime 06/[address] hearing tomorrow. 06/14 risperidone 2mg po BID, back IM prolixin 5mg IM if pt refuses oral risperidone. Plan to do ADORNO of risperidone 06/15 continue tx. 06/16 continue tx. 06/17 add depakote 500mg po BID. prolixin 5mg po BID. Reason for continued inpatient stay Substantial Risk for: inability to function Time Spent With Patient Time: Total time managing care of this patient today ____ minutes.
[2023-06-18] MEDS: Tamsulosin HCL 0.4 MG CAPSULE PO (21:00)
[2023-06-18] MEDS: traZODone HCL 50 MG TABLET PO (21:00)
[2023-06-18] MEDS: fluPHENAZine HCl 5 MG TABLET PO (21:00)
[2023-06-18] MEDS: Atorvastatin Calcium 40 MG TABLET PO (21:00)
[2023-06-19 06:00] VITALS: BP 136/65; PULSE 94; RESP 17; TEMP 2.4; TEMP 36.4; O2SAT 99
[2023-06-19] MEDS: Levothyroxine Sodium 25 MCG TABLET PO (06:02)
--- NOTE | 2023-06-19 08:28 | P.PNPSI_ITS ---
Subjective Subjective Date of Service: 06/19/23 Reason For Visit: Psychosis Subjective Notes: Conditional Voluntary Interim History: The nursing staff reported the patient slept all night. He is on constant observation since he is intrusive and takes other's patient's belongings. In the morning he was agitated refused his medications but later on he took his Synthroid. On interview the patient remains disorganized and loud at times but redirectable. Mental Status Exam Mental Status Exam Patient Appearance: Appropriate and Unkempt Patient Orientation: Person Level of Consciousness: Awake Patient Behavior: Guarded and Passive Mood Description: Withdrawn Affect Description: Constricted Patient Cognition Impaired: Yes Ability to Follow Directions: Fair Speech Pattern: Clear Hallucinations: Auditory Delusions: Ideas of Reference Thought Process: Distracted and Slowed Thinking Thought Content: positive for [place] and positive for Poverty of Content Judgement: Poor Diagnostics Vital Signs (24Hr): Vital Signs - 24 hr 06/19/23 06:00 Temperature 36.4 F L Pulse Rate 94 Respiratory Rate 17 Blood Pressure 136/65 Pulse Oximetry 99 Oxygen Delivery Method Room Air BMI result Body Mass Index 23.8 Labs 06/04/23 02:14 06/04/23 02:14 Medications Medications Current Medications Acetaminophen (Acetaminophen 325 Mg Tablet) 650 mg PO Q6H PRN PRN Reason: Headache/Pain Mild Scale (1-3) Al Hydroxide/Mg Hydroxide (Magnesium Hydrox/Alum Hydrox 30 Ml Oral.Susp) 30 ml PO Q6H PRN PRN Reason: Heartburn/Nausea Albuterol Sulfate (Albuterol Sulfate 90 Mcg 8 Gm Inhaler) 1 puff INHALE RQ4H PRN PRN Reason: Wheezing/SOB Apixaban (Apixaban 5 Mg Tablet) 5 mg PO BID [facility] Last Admin: 06/18/23 21:00 Dose: 5 mg Atorvastatin Calcium (Atorvastatin Calcium 40 Mg Tablet) 40 mg PO BEDTIME [facility] Last Admin: 06/18/23 21:00 Dose: 40 mg Divalproex Sodium (Divalproex Sodium Sprinkles 125 Mg Cap.) 500 mg PO BID [facility] Last Admin: 06/18/23 21:00 Dose: 500 mg Ferrous Sulfate (Ferrous Sulfate 324 Mg Tablet.Dr) 324 mg PO DAILY [facility] Last Admin: 06/18/23 09:00 Dose: 324 mg Fluphenazine HCl (Fluphenazine Hcl 2.5 Mg/Ml 10 Ml Vial) 5 mg IM BID PRN PRN Reason: if refuses oral risperidone Fluphenazine HCl (Fluphenazine Hcl 5 Mg Tablet) 5 mg PO BID [facility] Last Admin: 06/18/23 21:00 Dose: 5 mg Fluticasone/Umeclidinium/Vilanterol (Fluticasone/Umeclidinium/Vilanterol 100/62.5/25 Blst.W.Dev) 1 puff INHALE RDAILY [facility] Last Admin: 06/18/23 09:01 Dose: Not Given Hydroxyzine HCl (Hydroxyzine Hcl 25 Mg Tablet) 25 mg PO Q6H PRN PRN Reason: Anxiety Last Admin: 06/16/23 21:00 Dose: 25 mg Levothyroxine Sodium (Levothyroxine Sodium 25 Mcg Tablet) 25 mcg PO DAILY@0600 [facility] Last Admin: 06/19/23 06:02 Dose: 25 mcg Loratadine (Loratadine 10 Mg Tablet) 10 mg PO DAILY [facility] Last Admin: 06/18/23 09:00 Dose: 10 mg Magnesium Hydroxide (Milk Of Magnesia 30 Ml Oral.Susp) 30 ml PO DAILY PRN PRN Reason: Constipation Magnesium Oxide (Magnesium Oxide 400 Mg Tablet) 400 mg PO BIDPC [facility] Last Admin: 06/18/23 16:47 Dose: 400 mg Mupirocin (Mupirocin 2 % Oint 22 Gm Tube) 1 appl TOPICAL BID PRN; Protocol PRN Reason: scalp lesions Last Admin: 06/11/23 16:47 Dose: 1 appl Risperidone (Risperidone 2 Mg Tablet) 2 mg PO BID [facility] Last Admin: 06/18/23 21:00 Dose: 2 mg Tamsulosin HCl (Tamsulosin Hcl 0.4 Mg Capsule) 0.4 mg PO BEDTIME [facility] Last Admin: 06/18/23 21:00 Dose: 0.4 mg Trazodone HCl (Trazodone Hcl 50 Mg Tablet) 50 mg PO BEDTIME PRN PRN Reason: Insomnia Last Admin: 06/18/23 21:00 Dose: 50 mg Allergies Allergies Allergy/AdvReac Type Severity Reaction Status Date / Time No Known Allergies Allergy Mild NOT Verified 06/03/23 18:57 APPLICABLE Assessment & Plan Assessment & Plan (1) Schizophrenia: Status: Acute Code(s): F20.9 - Schizophrenia, unspecified Plan Mr. Zaragoza is a 72 year-old male with hx of schizophrenia who was brought on a sect 12a due to pt exposing himself to the neighbors. Pt has been refusing medications at , becoming more agitated. On the unit, pt disorganized, refusing labs, selective about medications. PLAN 1. continue risperidone 2mg po BID. 2. filed sect 7/. 06/11/2023 Patient not taking medication psychotic refusing medical care on section 7 may need to get abdominal CT scan patient recently had nausea vomiting seems to be somewhat better today concerns regarding incarcerated hernia patient not able to make medical decisions at this time refusing lab 06/12/2023 Somewhat more cooperative today did take 1 dose of Haldol encourage medication labs and vital signs no acute abdominal pain patient may need eventual guardianship for clarity regarding need for repair of quite significant inguinal hernia that impacts the patient's quality of life 06/13/2023 Patient may benefit from guardianship to make medical decisions Section [address] patient bizarre preoccupied Change Haldol to 10 mg bedtime 06/[address] hearing tomorrow. 06/14 risperidone 2mg po BID, back IM prolixin 5mg IM if pt refuses oral risperidone. Plan to do ADORNO of risperidone 06/15 continue tx. 06/16 continue tx. 06/17 add depakote 500mg po BID. prolixin 5mg po BID. 06/18 keep same treatment, encourage compliance. Reason for continued inpatient stay Substantial Risk for: inability to function, rapid decompensation and med/psych decompensation Time Spent With Patient Time: Total time managing care of this patient today __30__ minutes.
[2023-06-19] MEDS: Magnesium Oxide 400 MG TABLET PO (08:35)
[2023-06-19] MEDS: Ferrous Sulfate 324 MG TABLET.DR PO (08:35)
[2023-06-19] MEDS: Apixaban 5 MG TABLET PO (08:36)
[2023-06-19] MEDS: risperiDONE 2 MG TABLET PO (08:36)
[2023-06-19] MEDS: fluPHENAZine HCl 5 MG TABLET PO (08:36)
[2023-06-19] MEDS: Loratadine 10 MG TABLET PO (08:36)
[2023-06-19] MEDS: Divalproex Sodium Sprinkles 125 MG CAP.DR.SPR 500 MG PO (08:37)
[2023-06-19] MEDS: Fluticasone/Umeclidinium/Vilanterol 100/62.5/25 BLST.W.DEV 1 PUFF INHALE (11:05)
[2023-06-19 18:00] VITALS: RESP 16
[2023-06-20 08:15] VITALS: BP 117/64; PULSE 92; TEMP 2.2; TEMP 36; O2SAT 100
[2023-06-20] MEDS: risperiDONE 2 MG TABLET PO ×2 (08:35→20:37)
[2023-06-20] MEDS: fluPHENAZine HCl 5 MG TABLET PO ×2 (08:35→20:37)
[2023-06-20] MEDS: Magnesium Oxide 400 MG TABLET PO ×2 (08:35→16:31)
[2023-06-20] MEDS: Loratadine 10 MG TABLET PO (08:36)
[2023-06-20] MEDS: Apixaban 5 MG TABLET PO ×2 (08:36→20:37)
[2023-06-20] MEDS: Ferrous Sulfate 324 MG TABLET.DR PO (08:36)
[2023-06-20] MEDS: Divalproex Sodium Sprinkles 125 MG CAP.DR.SPR 500 MG PO ×2 (08:37→20:36)
[2023-06-20] MEDS: Mupirocin 2 % Oint 22 GM TUBE 1 APPL TOPICAL (08:44)
[2023-06-20] MEDS: Fluticasone/Umeclidinium/Vilanterol 100/62.5/25 BLST.W.DEV 1 PUFF INHALE (08:50)
--- NOTE | 2023-06-20 09:04 | P.PNPSI_ITS ---
Subjective Subjective Date of Service: 06/20/23 Reason For Visit: Psychosis Subjective Notes: Section 8 Interim History: The nursing staff reported the patient remains on constant observation at night, he slept 6 hours. He refused all his medications at night and he was laughing nonsensical. He remains in Section 8. On interview the patient remains psychotic but easily redirectable. Mental Status Exam Mental Status Exam Patient Appearance: Appropriate Patient Orientation: Person Level of Consciousness: Awake Patient Behavior: Guarded and Passive Mood Description: Withdrawn Affect Description: Constricted Patient Cognition Impaired: Yes Ability to Follow Directions: Good Speech Pattern: Clear Hallucinations: Auditory Delusions: Paranoid Ideation and Ideas of Reference Thought Process: Distracted Thought Content: positive for [place] and positive for Poverty of Content Judgement: Fair Diagnostics Vital Signs (24Hr): Vital Signs - 24 hr 06/19/23 18:00 Respiratory Rate 16 BMI result Body Mass Index 23.8 Labs 06/04/23 02:14 06/04/23 02:14 Medications Medications Current Medications Acetaminophen (Acetaminophen 325 Mg Tablet) 650 mg PO Q6H PRN PRN Reason: Headache/Pain Mild Scale (1-3) Al Hydroxide/Mg Hydroxide (Magnesium Hydrox/Alum Hydrox 30 Ml Oral.Susp) 30 ml PO Q6H PRN PRN Reason: Heartburn/Nausea Albuterol Sulfate (Albuterol Sulfate 90 Mcg 8 Gm Inhaler) 1 puff INHALE RQ4H PRN PRN Reason: Wheezing/SOB Apixaban (Apixaban 5 Mg Tablet) 5 mg PO BID [facility] Last Admin: 06/20/23 08:36 Dose: 5 mg Atorvastatin Calcium (Atorvastatin Calcium 40 Mg Tablet) 40 mg PO BEDTIME [facility] Last Admin: 06/19/23 21:04 Dose: Not Given Divalproex Sodium (Divalproex Sodium Sprinkles 125 Mg Cap.) 500 mg PO BID [facility] Last Admin: 06/20/23 08:37 Dose: 500 mg Ferrous Sulfate (Ferrous Sulfate 324 Mg Tablet.) 324 mg PO DAILY [facility] Last Admin: 06/20/23 08:36 Dose: 324 mg Fluphenazine HCl (Fluphenazine Hcl 2.5 Mg/Ml 10 Ml Vial) 5 mg IM BID PRN PRN Reason: if refuses oral risperidone Fluphenazine HCl (Fluphenazine Hcl 5 Mg Tablet) 5 mg PO BID [facility] Last Admin: 06/20/23 08:35 Dose: 5 mg Fluticasone/Umeclidinium/Vilanterol (Fluticasone/Umeclidinium/Vilanterol 100/62.5/25 Blst.W.Dev) 1 puff INHALE RDAILY [facility] Last Admin: 06/20/23 08:50 Dose: 1 puff Hydroxyzine HCl (Hydroxyzine Hcl 25 Mg Tablet) 25 mg PO Q6H PRN PRN Reason: Anxiety Last Admin: 06/16/23 21:00 Dose: 25 mg Levothyroxine Sodium (Levothyroxine Sodium 25 Mcg Tablet) 25 mcg PO DAILY@0600 [facility] Last Admin: 06/20/23 05:45 Dose: Not Given Loratadine (Loratadine 10 Mg Tablet) 10 mg PO DAILY [facility] Last Admin: 06/20/23 08:36 Dose: 10 mg Magnesium Hydroxide (Milk Of Magnesia 30 Ml Oral.Susp) 30 ml PO DAILY PRN PRN Reason: Constipation Magnesium Oxide (Magnesium Oxide 400 Mg Tablet) 400 mg PO BIDPC [facility] Last Admin: 06/20/23 08:35 Dose: 400 mg Mupirocin (Mupirocin 2 % Oint 22 Gm Tube) 1 appl TOPICAL BID PRN; Protocol PRN Reason: scalp lesions Last Admin: 06/20/23 08:44 Dose: 1 appl Risperidone (Risperidone 2 Mg Tablet) 2 mg PO BID [facility] Last Admin: 06/20/23 08:35 Dose: 2 mg Tamsulosin HCl (Tamsulosin Hcl 0.4 Mg Capsule) 0.4 mg PO BEDTIME [facility] Last Admin: 06/19/23 22:44 Dose: Not Given Trazodone HCl (Trazodone Hcl 50 Mg Tablet) 50 mg PO BEDTIME PRN PRN Reason: Insomnia Last Admin: 06/18/23 21:00 Dose: 50 mg Allergies Allergies Allergy/AdvReac Type Severity Reaction Status Date / Time No Known Allergies Allergy Mild NOT Verified 06/03/23 18:57 APPLICABLE Assessment & Plan Assessment & Plan (1) Schizophrenia: Status: Acute Code(s): F20.9 - Schizophrenia, unspecified Plan Mr. Zaragoza is a 72 year-old male with hx of schizophrenia who was brought on a sect 12a due to pt exposing himself to the neighbors. Pt has been refusing medications at , becoming more agitated. On the unit, pt disorganized, refusing labs, selective about medications. PLAN 1. continue risperidone 2mg po BID. 2. filed sect 09/26. 06/11/2023 Patient not taking medication psychotic refusing medical care on section 7 may need to get abdominal CT scan patient recently had nausea vomiting seems to be somewhat better today concerns regarding incarcerated hernia patient not able to make medical decisions at this time refusing lab 06/12/2023 Somewhat more cooperative today did take 1 dose of Haldol encourage medication labs and vital signs no acute abdominal pain patient may need eventual guardianship for clarity regarding need for repair of quite significant inguinal hernia that impacts the patient's quality of life 06/13/2023 Patient may benefit from guardianship to make medical decisions Section [address] patient bizarre preoccupied Change Haldol to 10 mg bedtime 06/[address] hearing tomorrow. 06/14 risperidone 2mg po BID, back IM prolixin 5mg IM if pt refuses oral risperidone. Plan to do ADORNO of risperidone 06/15 continue tx. 06/16 continue tx. 06/17 add depakote 500mg po BID. prolixin 5mg po BID. 06/18 keep same treatment, encourage compliance. 06/19 keep same treatment Reason for continued inpatient stay Substantial Risk for: inability to function, rapid decompensation and med/psych decompensation Time Spent With Patient Time: Total time managing care of this patient today __20__ minutes.
--- NOTE | 2023-06-20 11:22 | PC.NURSE ---
A alerted me that the patient had taken one of his beaded bracelets and stretched it enough to put around his neck. Patient removed it from his neck and later gave it to staff to put in his belongings with verbal encouragement.
[2023-06-20] MEDS: Milk of Magnesia 30 ML ORAL.SUSP PO (16:30)
[2023-06-20 18:00] VITALS: BP 138/65; PULSE 76; RESP 18; TEMP 37.2; O2SAT 96
[2023-06-20] MEDS: hydrOXYzine HCL 25 MG TABLET PO (20:36)
[2023-06-20] MEDS: Atorvastatin Calcium 40 MG TABLET PO (20:36)
[2023-06-20] MEDS: Tamsulosin HCL 0.4 MG CAPSULE PO (20:37)
[2023-06-20] MEDS: traZODone HCL 50 MG TABLET PO (20:37)
[2023-06-21 06:00] VITALS: RESP 18
[2023-06-21] MEDS: Levothyroxine Sodium 25 MCG TABLET PO (06:24)
[2023-06-21] MEDS: risperiDONE 2 MG TABLET PO ×2 (09:33→20:28)
--- NOTE | 2023-06-21 09:38 | HO.PSYCHPN ---
Subjective Subjective Date of Service: 06/21/23 Reason For Visit: Psychosis Subjective Notes: Section 8 Interim History: Pt slept most of the night. He continues to be on a 1 to 1 due to intrusiv behaviors, although less than last week. Pt asks about discharge. He is somewhat irritable and declines to talk more with this mortgage or loan underwriter unless he is being told that he is being discharged. 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 Grandiose delusion fearful and paranoid concerns Insight/jdugment: impaired x 2. memory/cog: alert, not oriented to situation Judgment markedly impaired. Does not believe he has a mental illness difficulty weighing medical concerns Diagnostics Vital Signs (24Hr): Vital Signs - 24 hr 06/20/23 18:00 06/21/23 06:00 Temperature 99 F Pulse Rate 76 Respiratory Rate 18 18 Blood Pressure 138/65 Pulse Oximetry 96 Oxygen Delivery Method Room Air BMI result Body Mass Index 23.8 Labs 06/04/23 02:14 06/04/23 02:14 Medications Medications Current Medications Acetaminophen (Acetaminophen 325 Mg Tablet) 650 mg PO Q6H PRN PRN Reason: Headache/Pain Mild Scale (1-3) Al Hydroxide/Mg Hydroxide (Magnesium Hydrox/Alum Hydrox 30 Ml Oral.Susp) 30 ml PO Q6H PRN PRN Reason: Heartburn/Nausea Albuterol Sulfate (Albuterol Sulfate 90 Mcg 8 Gm Inhaler) 1 puff INHALE RQ4H PRN PRN Reason: Wheezing/SOB Apixaban (Apixaban 5 Mg Tablet) 5 mg PO BID [facility] Last Admin: 06/20/23 20:37 Dose: 5 mg Atorvastatin Calcium (Atorvastatin Calcium 40 Mg Tablet) 40 mg PO BEDTIME [facility] Last Admin: 06/20/23 20:36 Dose: 40 mg Divalproex Sodium (Divalproex Sodium Sprinkles 125 Mg ) 500 mg PO BID [facility] Last Admin: 06/20/23 20:36 Dose: 500 mg Ferrous Sulfate (Ferrous Sulfate 324 Mg Tablet.) 324 mg PO DAILY [facility] Last Admin: 06/20/23 08:36 Dose: 324 mg Fluphenazine HCl (Fluphenazine Hcl 2.5 Mg/Ml 10 Ml Vial) 5 mg IM BID PRN PRN Reason: if refuses oral risperidone Fluphenazine HCl (Fluphenazine Hcl 5 Mg Tablet) 5 mg PO BID [facility] Last Admin: 06/20/23 20:37 Dose: 5 mg Fluticasone/Umeclidinium/Vilanterol (Fluticasone/Umeclidinium/Vilanterol 100/62.5/25 Blst.W.Dev) 1 puff INHALE RDAILY [facility] Last Admin: 06/21/23 09:25 Dose: Not Given Hydroxyzine HCl (Hydroxyzine Hcl 25 Mg Tablet) 25 mg PO Q6H PRN PRN Reason: Anxiety Last Admin: 06/20/23 20:36 Dose: 25 mg Levothyroxine Sodium (Levothyroxine Sodium 25 Mcg Tablet) 25 mcg PO DAILY@0600 [facility] Last Admin: 06/21/23 06:24 Dose: 25 mcg Loratadine (Loratadine 10 Mg Tablet) 10 mg PO DAILY [facility] Last Admin: 06/20/23 08:36 Dose: 10 mg Magnesium Hydroxide (Milk Of Magnesia 30 Ml Oral.Susp) 30 ml PO DAILY PRN PRN Reason: Constipation Last Admin: 06/20/23 16:30 Dose: 30 ml [facility] ([facility]) [facility] Last Admin: 06/20/23 16:31 Dose: 400 mg Mupirocin (Mupirocin 2 % Oint 22 Gm Tube) 1 appl TOPICAL BID PRN; Protocol PRN Reason: scalp lesions Last Admin: 06/20/23 08:44 Dose: 1 appl Risperidone (Risperidone 2 Mg Tablet) 2 mg PO BID [facility] Last Admin: 06/21/23 09:33 Dose: 2 mg Tamsulosin HCl (Tamsulosin Hcl 0.4 Mg Capsule) 0.4 mg PO BEDTIME [facility] Last Admin: 06/20/23 20:37 Dose: 0.4 mg Trazodone HCl (Trazodone Hcl 50 Mg Tablet) 50 mg PO BEDTIME PRN PRN Reason: Insomnia Last Admin: 06/20/23 20:37 Dose: 50 mg Allergies Allergies Allergy/AdvReac Type Severity Reaction Status Date / Time No Known Allergies Allergy Mild NOT Verified 06/03/23 18:57 APPLICABLE Assessment & Plan Assessment & Plan (1) Schizophrenia: Status: Acute Code(s): F20.9 - Schizophrenia, unspecified Plan Mr. Zaragoza is a 72 year-old male with hx of schizophrenia who was brought on a sect 12a due to pt exposing himself to the neighbors. Pt has been refusing medications at , becoming more agitated. On the unit, pt disorganized, refusing labs, selective about medications. PLAN 1. continue risperidone 2mg po BID. 2. filed sect 09/26. 06/11/2023 Patient not taking medication psychotic refusing medical care on section 7 may need to get abdominal CT scan patient recently had nausea vomiting seems to be somewhat better today concerns regarding incarcerated hernia patient not able to make medical decisions at this time refusing lab 06/12/2023 Somewhat more cooperative today did take 1 dose of Haldol encourage medication labs and vital signs no acute abdominal pain patient may need eventual guardianship for clarity regarding need for repair of quite significant inguinal hernia that impacts the patient's quality of life 06/13/2023 Patient may benefit from guardianship to make medical decisions Section [address] patient bizarre preoccupied Change Haldol to 10 mg bedtime 06/[address] hearing tomorrow. 06/14 risperidone 2mg po BID, back IM prolixin 5mg IM if pt refuses oral risperidone. Plan to do ADORNO of risperidone 06/15 continue tx. 06/16 continue tx. 06/17 add depakote 500mg po BID. prolixin 5mg po BID. 06/18 keep same treatment, encourage compliance. 06/19 keep same treatment 06/20 continue current medications. plan to start ADORNO of risperidone this week- either constant or uzedy- which is the monthly risperidone. Reason for continued inpatient stay Substantial Risk for: inability to function Time Spent With Patient Time: Total time managing care of this patient today ____ minutes.
[2023-06-21 18:00] VITALS: BP 95/55; PULSE 86; RESP 18; TEMP 37.1; O2SAT 99
[2023-06-21] MEDS: Tamsulosin HCL 0.4 MG CAPSULE PO (20:27)
[2023-06-21] MEDS: fluPHENAZine HCl 5 MG TABLET PO (20:27)
[2023-06-21] MEDS: Apixaban 5 MG TABLET PO (20:28)
[2023-06-21] MEDS: hydrOXYzine HCL 25 MG TABLET PO (20:28)
[2023-06-21] MEDS: Atorvastatin Calcium 40 MG TABLET PO (20:28)
[2023-06-21] MEDS: traZODone HCL 50 MG TABLET PO (20:28)
[2023-06-22] MEDS: Levothyroxine Sodium 25 MCG TABLET PO (06:07)
[2023-06-22] MEDS: risperiDONE 2 MG TABLET PO ×2 (08:02→21:35)
--- NOTE | 2023-06-22 09:01 | HO.PSYCHPN ---
Subjective Subjective Date of Service: 06/22/23 Reason For Visit: Psychosis Subjective Notes: Section 8 Interim History: Pt slept most of the night. He asks if he will be discharged this week. He states he had agreed to stay only one more week and this is the end of the week. This property underwriter tried to explain pt signs that he is ready to be discharge- including less intrusive behaviors, so that one to one can be dced. However, pt walked away stating I'm not talking with you anymore. He did identify this property underwriter correctly as his provider and not as someone from his or an impostor. His hygiene has improved somewhat and his thought process more organized. 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 Grandiose delusion fearful and paranoid concerns Insight/jdugment: impaired x 2. memory/cog: alert, not oriented to situation Judgment markedly impaired. Does not believe he has a mental illness difficulty weighing medical concerns Diagnostics Vital Signs (24Hr): Vital Signs - 24 hr 06/21/23 18:00 Temperature 98.8 F Pulse Rate 86 Respiratory Rate 18 Blood Pressure 95/55 L Pulse Oximetry 99 Oxygen Delivery Method Room Air BMI result Body Mass Index 23.8 Labs 06/04/23 02:14 06/04/23 02:14 Medications Medications Current Medications Acetaminophen (Acetaminophen 325 Mg Tablet) 650 mg PO Q6H PRN PRN Reason: Headache/Pain Mild Scale (1-3) Al Hydroxide/Mg Hydroxide (Magnesium Hydrox/Alum Hydrox 30 Ml Oral.Susp) 30 ml PO Q6H PRN PRN Reason: Heartburn/Nausea Albuterol Sulfate (Albuterol Sulfate 90 Mcg 8 Gm Inhaler) 1 puff INHALE RQ4H PRN PRN Reason: Wheezing/SOB Apixaban (Apixaban 5 Mg Tablet) 5 mg PO BID [place] Last Admin: 06/22/23 08:03 Dose: Not Given Atorvastatin Calcium (Atorvastatin Calcium 40 Mg Tablet) 40 mg PO BEDTIME [facility] Last Admin: 06/21/23 20:28 Dose: 40 mg Divalproex Sodium (Divalproex Sodium Sprinkles 125 Mg Cap.) 500 mg PO BID [facility] Last Admin: 06/22/23 08:04 Dose: Not Given Ferrous Sulfate (Ferrous Sulfate 324 Mg Tablet.) 324 mg PO DAILY [facility] Last Admin: 06/22/23 08:04 Dose: Not Given Fluphenazine HCl (Fluphenazine Hcl 2.5 Mg/Ml 10 Ml Vial) 5 mg IM BID PRN PRN Reason: if refuses oral risperidone Fluphenazine HCl (Fluphenazine Hcl 5 Mg Tablet) 5 mg PO BID [facility] Last Admin: 06/22/23 08:04 Dose: Not Given Fluticasone/Umeclidinium/Vilanterol (Fluticasone/Umeclidinium/Vilanterol 100/62.5/25 Blst.W.Dev) 1 puff INHALE RDAILY [facility] Last Admin: 06/22/23 08:03 Dose: Not Given Hydroxyzine HCl (Hydroxyzine Hcl 25 Mg Tablet) 25 mg PO Q6H PRN PRN Reason: Anxiety Last Admin: 06/21/23 20:28 Dose: 25 mg Levothyroxine Sodium (Levothyroxine Sodium 25 Mcg Tablet) 25 mcg PO DAILY@0600 [facility] Last Admin: 06/22/23 06:07 Dose: 25 mcg Loratadine (Loratadine 10 Mg Tablet) 10 mg PO DAILY [facility] Last Admin: 06/22/23 08:04 Dose: Not Given Magnesium Hydroxide (Milk Of Magnesia 30 Ml Oral.Susp) 30 ml PO DAILY PRN PRN Reason: Constipation Last Admin: 06/20/23 16:30 Dose: 30 ml [facility]esium Oxide ([facility] 400 [facility]) [facility] Admin: 06/22/23 08:03 Dose: Not Given Mupirocin (Mupirocin 2 % Oint 22 Gm Tube) 1 appl TOPICAL BID PRN; Protocol PRN Reason: scalp lesions Last Admin: 06/20/23 08:44 Dose: 1 appl Risperidone (Risperidone 2 Mg Tablet) 2 mg PO BID [facility] Last Admin: 06/22/23 08:02 Dose: 2 mg Tamsulosin HCl (Tamsulosin Hcl 0.4 Mg Capsule) 0.4 mg PO BEDTIME [place] Last Admin: 06/21/23 20:27 Dose: 0.4 mg Trazodone HCl (Trazodone Hcl 50 Mg Tablet) 50 mg PO BEDTIME PRN PRN Reason: Insomnia Last Admin: 06/21/23 20:28 Dose: 50 mg Allergies Allergies Allergy/AdvReac Type Severity Reaction Status Date / Time No Known Allergies Allergy Mild NOT Verified 06/03/23 18:57 APPLICABLE Assessment & Plan Assessment & Plan (1) Schizophrenia: Status: Acute Code(s): F20.9 - Schizophrenia, unspecified Plan Mr. Zaragoza is a 72 year-old male with hx of schizophrenia who was brought on a sect 12a due to pt exposing himself to the neighbors. Pt has been refusing medications at , becoming more agitated. On the unit, pt disorganized, refusing labs, selective about medications. PLAN 1. continue risperidone 2mg po BID. 2. filed sect 7/8. 06/11/2023 Patient not taking medication psychotic refusing medical care on section 7 may need to get abdominal CT scan patient recently had nausea vomiting seems to be somewhat better today concerns regarding incarcerated hernia patient not able to make medical decisions at this time refusing lab 06/12/2023 Somewhat more cooperative today did take 1 dose of Haldol encourage medication labs and vital signs no acute abdominal pain patient may need eventual guardianship for clarity regarding need for repair of quite significant inguinal hernia that impacts the patient's quality of life 06/13/2023 Patient may benefit from guardianship to make medical decisions Section [address] patient bizarre preoccupied Change Haldol to 10 mg bedtime 06/[address] hearing tomorrow. 06/14 risperidone 2mg po BID, back IM prolixin 5mg IM if pt refuses oral risperidone. Plan to do ADORNO of risperidone 06/15 continue tx. 06/16 continue tx. 06/17 add depakote 500mg po BID. prolixin 5mg po BID. 06/18 keep same treatment, encourage compliance. 06/19 keep same treatment 06/20 continue tx- plan for ADORNO this week 06/21 plan for ADORNO this week. Reason for continued inpatient stay Substantial Risk for: inability to function Time Spent With Patient Time: Total time managing care of this patient today ____ minutes.
--- NOTE | 2023-06-23 08:10 | P.PNPSI_ITS ---
Subjective Subjective Date of Service: 06/23/23 Reason For Visit: Psychosis Subjective Notes: Section 8 Interim History: Pt slept most of the night. Pt has been mostly in room. 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 He denies trying to expose himself to others. He states I never sexually assaulted children He was fairly calm and asking this technical proposal writer when is his discharge. However, towards the end he became more paranoid, telling this technical proposal writer: stop lying to me when this technical proposal writer gave him phone number for as he had asked. 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 Grandiose delusion fearful and paranoid concerns Insight/jdugment: impaired x 2. memory/cog: alert, not oriented to situation Judgment markedly impaired. Does not believe he has a mental illness difficulty weighing medical concerns Diagnostics Vital Signs (24Hr): BMI result Body Mass Index 23.8 Labs 06/04/23 02:14 06/04/23 02:14 Medications Medications Current Medications Acetaminophen (Acetaminophen 325 Mg Tablet) 650 mg PO Q6H PRN PRN Reason: Headache/Pain Mild Scale (1-3) Al Hydroxide/Mg Hydroxide (Magnesium Hydrox/Alum Hydrox 30 Ml Oral.Susp) 30 ml PO Q6H PRN PRN Reason: Heartburn/Nausea Albuterol Sulfate (Albuterol Sulfate 90 Mcg 8 Gm Inhaler) 1 puff INHALE RQ4H PRN PRN Reason: Wheezing/SOB Apixaban (Apixaban 5 Mg Tablet) 5 mg PO BID [facility] Last Admin: 06/22/23 21:36 Dose: Not Given Atorvastatin Calcium (Atorvastatin Calcium 40 Mg Tablet) 40 mg PO BEDTIME [facility] Last Admin: 06/22/23 21:36 Dose: Not Given Divalproex Sodium (Divalproex Sodium Sprinkles 125 Mg Cap.) 500 mg PO BID [facility] Last Admin: 06/22/23 21:36 Dose: Not Given Ferrous Sulfate (Ferrous Sulfate 324 Mg Tablet.) 324 mg PO DAILY [facility] Last Admin: 06/22/23 08:04 Dose: Not Given Fluphenazine HCl (Fluphenazine Hcl 2.5 Mg/Ml 10 Ml Vial) 5 mg IM BID PRN PRN Reason: if refuses oral risperidone Fluphenazine HCl (Fluphenazine Hcl 5 Mg Tablet) 5 mg PO BID [facility] Last Admin: 06/22/23 21:36 Dose: Not Given Fluticasone/Umeclidinium/Vilanterol (Fluticasone/Umeclidinium/Vilanterol 100/62.5/25 Blst.W.Dev) 1 puff INHALE RDAILY [facility] Last Admin: 06/22/23 08:03 Dose: Not Given Hydroxyzine HCl (Hydroxyzine Hcl 25 Mg Tablet) 25 mg PO Q6H PRN PRN Reason: Anxiety Last Admin: 06/21/23 20:28 Dose: 25 mg Levothyroxine Sodium (Levothyroxine Sodium 25 Mcg Tablet) 25 mcg PO DAILY@0600 [facility] Last Admin: 06/23/23 06:09 Dose: Not Given Loratadine (Loratadine 10 Mg Tablet) 10 mg PO DAILY [facility] Last Admin: 06/22/23 08:04 Dose: Not Given Magnesium Hydroxide (Milk Of Magnesia 30 Ml Oral.Susp) 30 ml PO DAILY PRN PRN Reason: Constipation Last Admin: 06/20/23 16:30 Dose: 30 ml [facility]ide ([facility]t) [facility] Last Admin: 06/22/23 17:27 Dose: Not Given Mupirocin (Mupirocin 2 % Oint 22 Gm Tube) 1 appl TOPICAL BID PRN; Protocol PRN Reason: scalp lesions Last Admin: 06/20/23 08:44 Dose: 1 appl Risperidone (Risperidone 2 Mg Tablet) 2 mg PO BID [facility] Last Admin: 06/22/23 21:35 Dose: 2 mg Tamsulosin HCl (Tamsulosin Hcl 0.4 Mg Capsule) 0.4 mg PO BEDTIME [facility] Last Admin: 06/22/23 21:36 Dose: Not Given Trazodone HCl (Trazodone Hcl 50 Mg Tablet) 50 mg PO BEDTIME PRN PRN Reason: Insomnia Last Admin: 06/21/23 20:28 Dose: 50 mg Allergies Allergies Allergy/AdvReac Type Severity Reaction Status Date / Time No Known Allergies Allergy Mild NOT Verified 06/03/23 18:57 APPLICABLE Assessment & Plan Assessment & Plan (1) Schizophrenia: Status: Acute Code(s): F20.9 - Schizophrenia, unspecified Plan Mr. Zaragoza is a 72 year-old male with hx of schizophrenia who was brought on a sect 12a due to pt exposing himself to the neighbors. Pt has been refusing medications at , becoming more agitated. On the unit, pt disorganized, refusing labs, selective about medications. PLAN 1. continue risperidone 2mg po BID. 2. filed sect 09/26. 06/11/2023 Patient not taking medication psychotic refusing medical care on section 7 may need to get abdominal CT scan patient recently had nausea vomiting seems to be somewhat better today concerns regarding incarcerated hernia patient not able to make medical decisions at this time refusing lab 06/12/2023 Somewhat more cooperative today did take 1 dose of Haldol encourage medication labs and vital signs no acute abdominal pain patient may need eventual guardianship for clarity regarding need for repair of quite significant inguinal hernia that impacts the patient's quality of life 06/13/2023 Patient may benefit from guardianship to make medical decisions Section [address] patient bizarre preoccupied Change Haldol to 10 mg bedtime 06/[address] hearing tomorrow. 06/14 risperidone 2mg po BID, back IM prolixin 5mg IM if pt refuses oral risperidone. Plan to do ADORNO of risperidone 06/15 continue tx. 06/16 continue tx. 06/17 add depakote 500mg po BID. prolixin 5mg po BID. 06/18 keep same treatment, encourage compliance. 06/19 keep same treatment 06/20 continue tx- plan for ADORNO this week 06/21 plan for ADORNO this wee 06/22 continue tx. May try to change to prolixin as main antipsychotic. Reason for continued inpatient stay Substantial Risk for: inability to function Time Spent With Patient Time: Total time managing care of this patient today ____ minutes.
[2023-06-23] MEDS: risperiDONE 2 MG TABLET PO ×2 (09:26→21:22)
[2023-06-23] MEDS: Mupirocin 2 % Oint 22 GM TUBE 1 APPL TOPICAL (15:15)
[2023-06-23] MEDS: fluPHENAZine HCl 5 MG TABLET PO (21:22)
[2023-06-24] MEDS: Levothyroxine Sodium 25 MCG TABLET PO (06:11)
[2023-06-24 07:00] VITALS: BMI 24.3
[2023-06-24 08:30] VITALS: BP 137/64; PULSE 100; RESP 18; TEMP 36.2; O2SAT 100
[2023-06-24] MEDS: fluPHENAZine HCl 5 MG TABLET PO ×2 (09:01→21:00)
[2023-06-24] MEDS: Apixaban 5 MG TABLET PO ×2 (09:01→21:00)
[2023-06-24] MEDS: Divalproex Sodium Sprinkles 125 MG CAP.DR.SPR 500 MG PO ×2 (09:01→21:00)
[2023-06-24] MEDS: risperiDONE 2 MG TABLET PO ×2 (09:02→21:00)
[2023-06-24] MEDS: Magnesium Oxide 400 MG TABLET PO ×2 (09:02→16:56)
[2023-06-24] MEDS: Loratadine 10 MG TABLET PO (09:02)
[2023-06-24] MEDS: Ferrous Sulfate 324 MG TABLET.DR PO (09:03)
[2023-06-24] MEDS: Mupirocin 2 % Oint 22 GM TUBE 1 APPL TOPICAL (09:04)
[2023-06-24] MEDS: Fluticasone/Umeclidinium/Vilanterol 100/62.5/25 BLST.W.DEV 1 PUFF INHALE (09:08)
--- NOTE | 2023-06-24 11:53 | HO.PSYCHPN ---
Subjective Subjective Date of Service: 06/24/23 Reason For Visit: Psychosis Subjective Notes: Section 8 Interim History: Pt slept most of the night. pt continues to decline most of his medical medications. He initially presented as calm, but later became more paranoid towards this race and sports book writer. 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 Grandiose delusion fearful and paranoid concerns Insight/jdugment: impaired x 2. memory/cog: alert, not oriented to situation Judgment markedly impaired. Does not believe he has a mental illness difficulty weighing medical concerns Diagnostics Vital Signs (24Hr): Vital Signs - 24 hr 06/24/23 08:30 Temperature 97.2 F Pulse Rate 100 Respiratory Rate 18 Blood Pressure 137/64 Pulse Oximetry 100 Oxygen Delivery Method Room Air BMI result Body Mass Index 23.8 Labs 06/04/23 02:14 06/04/23 02:14 Medications Medications Current Medications Acetaminophen (Acetaminophen 325 Mg Tablet) 650 mg PO Q6H PRN PRN Reason: Headache/Pain Mild Scale (1-3) Al Hydroxide/Mg Hydroxide (Magnesium Hydrox/Alum Hydrox 30 Ml Oral.Susp) 30 ml PO Q6H PRN PRN Reason: Heartburn/Nausea Albuterol Sulfate (Albuterol Sulfate 90 Mcg 8 Gm Inhaler) 1 puff INHALE RQ4H PRN PRN Reason: Wheezing/SOB Apixaban (Apixaban 5 Mg Tablet) 5 mg PO BID [facility] Last Admin: 06/24/23 09:01 Dose: 5 mg Atorvastatin Calcium (Atorvastatin Calcium 40 Mg Tablet) 40 mg PO BEDTIME [facility] Last Admin: 06/23/23 22:12 Dose: Not Given Divalproex Sodium (Divalproex Sodium Sprinkles 125 Mg Trevor.) 500 mg PO BID [facility] Last Admin: 06/24/23 09:01 Dose: 500 mg Ferrous Sulfate (Ferrous Sulfate 324 Mg Tablet.) 324 mg PO DAILY [facility] Last Admin: 06/24/23 09:03 Dose: 324 mg Fluphenazine HCl (Fluphenazine Hcl 5 Mg Tablet) 5 mg PO BID [facility] Last Admin: 06/24/23 09:01 Dose: 5 mg Fluphenazine HCl (Fluphenazine Hcl 2.5 Mg/Ml 10 Ml Vial) 5 mg IM BID PRN PRN Reason: if refuses oral prolixin/rispe Fluticasone/Umeclidinium/Vilanterol (Fluticasone/Umeclidinium/Vilanterol 100/62.5/25 Blst.W.Dev) 1 puff INHALE RDAILY [facility] Last Admin: 06/24/23 09:08 Dose: 1 puff Hydroxyzine HCl (Hydroxyzine Hcl 25 Mg Tablet) 25 mg PO Q6H PRN PRN Reason: Anxiety Last Admin: 06/21/23 20:28 Dose: 25 mg Levothyroxine Sodium (Levothyroxine Sodium 25 Mcg Tablet) 25 mcg PO DAILY@0600 [facility] Last Admin: 06/24/23 06:11 Dose: 25 mcg Loratadine (Loratadine 10 Mg Tablet) 10 mg PO DAILY [facility] Last Admin: 06/24/23 09:02 Dose: 10 mg Magnesium Hydroxide (Milk Of Magnesia 30 Ml Oral.Susp) 30 ml PO DAILY PRN PRN Reason: Constipation Last Admin: 06/20/23 16:30 Dose: 30 ml [facility] Oxide ([facility]) [facility] Admin: 06/24/23 09:02 Dose: 400 mg Mupirocin (Mupirocin 2 % Oint 22 Gm Tube) 1 appl TOPICAL BID PRN; Protocol PRN Reason: scalp lesions Last Admin: 06/24/23 09:04 Dose: 1 appl Risperidone (Risperidone 2 Mg Tablet) 2 mg PO BID [facility] Last Admin: 06/24/23 09:02 Dose: 2 mg Tamsulosin HCl (Tamsulosin Hcl 0.4 Mg Capsule) 0.4 mg PO BEDTIME [facility] Last Admin: 06/23/23 22:12 Dose: Not Given Trazodone HCl (Trazodone Hcl 50 Mg Tablet) 50 mg PO BEDTIME PRN PRN Reason: Insomnia Last Admin: 06/21/23 20:28 Dose: 50 mg Allergies Allergies Allergy/AdvReac Type Severity Reaction Status Date / Time No Known Allergies Allergy Mild NOT Verified 06/03/23 18:57 APPLICABLE Assessment & Plan Assessment & Plan (1) Schizophrenia: Status: Acute Code(s): F20.9 - Schizophrenia, unspecified Plan Mr. Zaragoza is a 72 year-old male with hx of schizophrenia who was brought on a sect 12a due to pt exposing himself to the neighbors. Pt has been refusing medications at , becoming more agitated. On the unit, pt disorganized, refusing labs, selective about medications. PLAN 1. continue risperidone 2mg po BID. 2. filed sect 09/26. 06/11/2023 Patient not taking medication psychotic refusing medical care on section 7 may need to get abdominal CT scan patient recently had nausea vomiting seems to be somewhat better today concerns regarding incarcerated hernia patient not able to make medical decisions at this time refusing lab 06/12/2023 Somewhat more cooperative today did take 1 dose of Haldol encourage medication labs and vital signs no acute abdominal pain patient may need eventual guardianship for clarity regarding need for repair of quite significant inguinal hernia that impacts the patient's quality of life 06/13/2023 Patient may benefit from guardianship to make medical decisions Section [address] patient bizarre preoccupied Change Haldol to 10 mg bedtime 06/[address] hearing tomorrow. 06/14 risperidone 2mg po BID, back IM prolixin 5mg IM if pt refuses oral risperidone. Plan to do ADORNO of risperidone 06/15 continue tx. 06/16 continue tx. 06/17 add depakote 500mg po BID. prolixin 5mg po BID. 06/18 keep same treatment, encourage compliance. 06/19 keep same treatment 06/20 continue tx- plan for ADORNO this week 06/21 plan for ADORNO this wee 06/22 continue tx. May try to change to prolixin as main antipsychotic. 06/23 give back IM if pt refuses either prolixin or risperidone. will try prolixin to be main antipsychotic as risperidone along only partially effective. Reason for continued inpatient stay Substantial Risk for: inability to function Time Spent With Patient Time: Total time managing care of this patient today ____ minutes.
[2023-06-24] MEDS: Tamsulosin HCL 0.4 MG CAPSULE PO (21:00)
[2023-06-24] MEDS: Atorvastatin Calcium 40 MG TABLET PO (21:00)
[2023-06-25 09:11] VITALS: BP 140/74; PULSE 88; RESP 16; TEMP 36.9; O2SAT 98
[2023-06-25] MEDS: Ferrous Sulfate 324 MG TABLET.DR PO (09:14)
[2023-06-25] MEDS: Loratadine 10 MG TABLET PO (09:14)
[2023-06-25] MEDS: fluPHENAZine HCl 5 MG TABLET PO ×2 (09:14→21:07)
[2023-06-25] MEDS: Magnesium Oxide 400 MG TABLET PO ×2 (09:15→16:32)
[2023-06-25] MEDS: Apixaban 5 MG TABLET PO ×2 (09:15→21:07)
[2023-06-25] MEDS: Levothyroxine Sodium 25 MCG TABLET PO (09:15)
[2023-06-25] MEDS: risperiDONE 2 MG TABLET PO ×2 (09:15→21:07)
--- NOTE | 2023-06-25 12:27 | P.PNPSI_ITS ---
Subjective Subjective Date of Service: 06/25/23 Reason For Visit: Psychosis Subjective Notes: Section 8 Interim History: discussed with team; review of record; Pt seen in visitor room today; He is confused and irritable; he is illogical; he acknowledges me but does not believe I am who I say I am. He denies complaints; states he slept most of the night. pt continues to decline most of his medical medications. He initially presented as calm, but later became more paranoid towards this headline writer. 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 Grandiose delusion fearful and paranoid concerns Insight/jdugment: impaired x 2. memory/cog: alert, not oriented to situation Judgment markedly impaired. 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 Insight/jdugment: impaired x 2. memory/cog: alert, not oriented to situation. Mood Description: Withdrawn Affect Description: Constricted Patient Cognition Impaired: Yes Ability to Follow Directions: Good Speech Pattern: Clear Diagnostics Vital Signs (24Hr): Vital Signs - 24 hr 06/25/23 09:11 Temperature 98.4 F Pulse Rate 88 Respiratory Rate 16 Blood Pressure 140/74 H Pulse Oximetry 98 Oxygen Delivery Method Room Air BMI result Body Mass Index 24.3 Labs 06/04/23 02:14 06/04/23 02:14 Medications Medications Current Medications Acetaminophen (Acetaminophen 325 Mg Tablet) 650 mg PO Q6H PRN PRN Reason: Headache/Pain Mild Scale (1-3) Al Hydroxide/Mg Hydroxide (Magnesium Hydrox/Alum Hydrox 30 Ml Oral.Susp) 30 ml PO Q6H PRN PRN Reason: Heartburn/Nausea Albuterol Sulfate (Albuterol Sulfate 90 Mcg 8 Gm Inhaler) 1 puff INHALE RQ4H PRN PRN Reason: Wheezing/SOB Apixaban (Apixaban 5 Mg Tablet) 5 mg PO BID [facility] Last Admin: 06/25/23 09:15 Dose: 5 mg Atorvastatin Calcium (Atorvastatin Calcium 40 Mg Tablet) 40 mg PO BEDTIME [facility] Last Admin: 06/24/23 21:00 Dose: 40 mg Divalproex Sodium (Divalproex Sodium Sprinkles 125 Mg Cap.) 500 mg PO BID [facility] Last Admin: 06/25/23 11:01 Dose: Not Given Ferrous Sulfate (Ferrous Sulfate 324 Mg Tablet.) 324 mg PO DAILY [facility] Last Admin: 06/25/23 09:14 Dose: 324 mg Fluphenazine HCl (Fluphenazine Hcl 5 Mg Tablet) 5 mg PO BID [facility] Last Admin: 06/25/23 09:14 Dose: 5 mg Fluphenazine HCl (Fluphenazine Hcl 2.5 Mg/Ml 10 Ml Vial) 5 mg IM BID PRN PRN Reason: if refuses oral prolixin/rispe Fluticasone/Umeclidinium/Vilanterol (Fluticasone/Umeclidinium/Vilanterol 100/62.5/25 Blst.W.Dev) 1 puff INHALE RDAILY [facility] Last Admin: 06/25/23 09:25 Dose: Not Given Hydroxyzine HCl (Hydroxyzine Hcl 25 Mg Tablet) 25 mg PO Q6H PRN PRN Reason: Anxiety Last Admin: 06/21/23 20:28 Dose: 25 mg Levothyroxine Sodium (Levothyroxine Sodium 25 Mcg Tablet) 25 mcg PO DAILY@0600 [facility] Last Admin: 06/25/23 09:15 Dose: 25 mcg Loratadine (Loratadine 10 Mg Tablet) 10 mg PO DAILY [facility] Last Admin: 06/25/23 09:14 Dose: 10 mg Magnesium Hydroxide (Milk Of Magnesia 30 Ml Oral.Susp) 30 ml PO DAILY PRN PRN Reason: Constipation Last Admin: 06/20/23 16:30 Dose: 30 ml Magnesium Oxide (Magnesium Oxide 400 Mg Tablet) 400 mg PO BIDPC [facility] Last Admin: 06/25/23 09:15 Dose: 400 mg Mupirocin (Mupirocin 2 % Oint 22 Gm Tube) 1 appl TOPICAL BID PRN; Protocol PRN Reason: scalp lesions Last Admin: 06/24/23 09:04 Dose: 1 appl Risperidone (Risperidone 2 Mg Tablet) 2 mg PO BID [facility] Last Admin: 06/25/23 09:15 Dose: 2 mg Tamsulosin HCl (Tamsulosin Hcl 0.4 Mg Capsule) 0.4 mg PO BEDTIME [facility] Last Admin: 06/24/23 21:00 Dose: 0.4 mg Trazodone HCl (Trazodone Hcl 50 Mg Tablet) 50 mg PO BEDTIME PRN PRN Reason: Insomnia Last Admin: 06/21/23 20:28 Dose: 50 mg Allergies Allergies Allergy/AdvReac Type Severity Reaction Status Date / Time No Known Allergies Allergy Mild NOT Verified 06/03/23 18:57 APPLICABLE Assessment & Plan Assessment & Plan (1) Schizophrenia: Status: Acute Code(s): F20.9 - Schizophrenia, unspecified Plan Mr. Zaragoza is a 72 year-old male with hx of schizophrenia who was brought on a sect 12a due to pt exposing himself to the neighbors. Pt has been refusing medications at , becoming more agitated. On the unit, pt disorganized, refusing labs, selective about medications. PLAN 1. continue risperidone 2mg po BID. 2. filed sect 7/8. 06/11/2023 Patient not taking medication psychotic refusing medical care on section 7 may need to get abdominal CT scan patient recently had nausea vomiting seems to be somewhat better today concerns regarding incarcerated hernia patient not able to make medical decisions at this time refusing lab 06/12/2023 Somewhat more cooperative today did take 1 dose of Haldol encourage medication labs and vital signs no acute abdominal pain patient may need eventual guardianship for clarity regarding need for repair of quite significant inguinal hernia that impacts the patient's quality of life 06/13/2023 Patient may benefit from guardianship to make medical decisions Section [address] patient bizarre preoccupied Change Haldol to 10 mg bedtime 06/[address] hearing tomorrow. 06/14 risperidone 2mg po BID, back IM prolixin 5mg IM if pt refuses oral risperidone. Plan to do ADORNO of risperidone 06/15 continue tx. 06/16 continue tx. 06/17 add depakote 500mg po BID. prolixin 5mg po BID. 06/18 keep same treatment, encourage compliance. 06/19 keep same treatment 06/20 continue tx- plan for ADORNO this week 06/21 plan for ADORNO this week 06/22 continue tx. May try to change to prolixin as main antipsychotic. 06/23 give back IM if pt refuses either prolixin or risperidone. will try prolixin to be main antipsychotic as risperidone along only partially effective. 06/24 continue treatment plan Reason for continued inpatient stay Substantial Risk for: inability to function Time Spent With Patient Time: Total time managing care of this patient today ____ minutes.
[2023-06-25 18:00] VITALS: BP 129/60; PULSE 85; RESP 18; TEMP 36.3; O2SAT 100
[2023-06-25] MEDS: Tamsulosin HCL 0.4 MG CAPSULE PO (21:07)
[2023-06-25] MEDS: Atorvastatin Calcium 40 MG TABLET PO (21:07)
[2023-06-25] MEDS: traZODone HCL 50 MG TABLET PO (21:07)
[2023-06-25] MEDS: hydrOXYzine HCL 25 MG TABLET PO (21:08)
[2023-06-25] MEDS: Divalproex Sodium Sprinkles 125 MG CAP.DR.SPR 500 MG PO (21:09)
[2023-06-26] MEDS: Levothyroxine Sodium 25 MCG TABLET PO (06:13)
[2023-06-26] MEDS: Ferrous Sulfate 324 MG TABLET.DR PO (08:01)
[2023-06-26] MEDS: risperiDONE 2 MG TABLET PO ×2 (08:01→20:50)
[2023-06-26] MEDS: fluPHENAZine HCl 5 MG TABLET PO ×2 (08:01→20:51)
[2023-06-26] MEDS: Divalproex Sodium Sprinkles 125 MG CAP.DR.SPR 500 MG PO ×2 (08:01→20:51)
[2023-06-26] MEDS: Loratadine 10 MG TABLET PO (08:01)
[2023-06-26] MEDS: Apixaban 5 MG TABLET PO ×2 (08:01→20:50)
[2023-06-26] MEDS: Magnesium Oxide 400 MG TABLET PO ×2 (08:01→17:31)
[2023-06-26] MEDS: Fluticasone/Umeclidinium/Vilanterol 100/62.5/25 BLST.W.DEV 1 PUFF INHALE (08:07)
[2023-06-26] MEDS: Acetaminophen 325 MG TABLET 650 MG PO (08:13)
[2023-06-26 08:19] VITALS: BP 127/62; PULSE 89; RESP 18; TEMP 36.1; O2SAT 100
--- NOTE | 2023-06-26 10:26 | HO.PSYCHPN ---
Subjective Subjective Date of Service: 06/26/23 Reason For Visit: Psychosis Subjective Notes: Section 8 and Conditional Voluntary Interim History: And with patient. Discussed with Nursing. Has been asking nursing at times for diamonds and rubys to put into his pockets. Does appear to doing better now restarting medications. Reports that he is doing okay. 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 overall denied depression. Reported feeling safe here. No med concerns accepting Garcia order meds Medication Compliance: Yes Side effects from medications: No Attending Groups: Yes Review of Systems Acute medical concerns: No Review of Systems Review of Systems Unremarkable Mental Status Exam Mental Status Exam Narrative: Casual clothing. Self-care a little limited. Pleasant. is very tangential in thought form. A little pressured in speech. Denied depression. Affect is flat. No SI or HI. Does appear to have some paranoia. Denies hallucinations. Insight and judgment limited, but accepting of medications and treatment Diagnostics Vital Signs (24Hr): Vital Signs - 24 hr 06/25/23 18:00 06/26/23 08:19 Temperature 97.4 F 96.9 F Pulse Rate 85 89 Respiratory Rate 18 18 Blood Pressure 129/60 127/62 Pulse Oximetry 100 100 Oxygen Delivery Method Room Air Room Air BMI result Body Mass Index 24.3 Labs 06/04/23 02:14 06/04/23 02:14 Medications Medications Current Medications Acetaminophen (Acetaminophen 325 Mg Tablet) 650 mg PO Q6H PRN PRN Reason: Headache/Pain Mild Scale (1-3) Last Admin: 06/26/23 08:13 Dose: 650 mg Al Hydroxide/Mg Hydroxide (Magnesium Hydrox/Alum Hydrox 30 Ml Oral.Susp) 30 ml PO Q6H PRN PRN Reason: Heartburn/Nausea Albuterol Sulfate (Albuterol Sulfate 90 Mcg 8 Gm Inhaler) 1 puff INHALE RQ4H PRN PRN Reason: Wheezing/SOB Apixaban (Apixaban 5 Mg Tablet) 5 mg PO BID [facility] Last Admin: 06/26/23 08:01 Dose: 5 mg Atorvastatin Calcium (Atorvastatin Calcium 40 Mg Tablet) 40 mg PO BEDTIME [facility] Last Admin: 06/25/23 21:07 Dose: 40 mg Divalproex Sodium (Divalproex Sodium Sprinkles 125 Mg Cap.) 500 mg PO BID [facility] Last Admin: 06/26/23 08:01 Dose: 500 mg Ferrous Sulfate (Ferrous Sulfate 324 Mg Tablet.) 324 mg PO DAILY [facility] Last Admin: 06/26/23 08:01 Dose: 324 mg Fluphenazine HCl (Fluphenazine Hcl 5 Mg Tablet) 5 mg PO BID [facility] Last Admin: 06/26/23 08:01 Dose: 5 mg Fluphenazine HCl (Fluphenazine Hcl 2.5 Mg/Ml 10 Ml Vial) 5 mg IM BID PRN PRN Reason: if refuses oral prolixin/rispe Fluticasone/Umeclidinium/Vilanterol (Fluticasone/Umeclidinium/Vilanterol 100/62.5/25 Blst.W.Dev) 1 puff INHALE RDAILY [facility] Last Admin: 06/26/23 08:07 Dose: 1 puff Hydroxyzine HCl (Hydroxyzine Hcl 25 Mg Tablet) 25 mg PO Q6H PRN PRN Reason: Anxiety Last Admin: 06/25/23 21:08 Dose: 25 mg Levothyroxine Sodium (Levothyroxine Sodium 25 Mcg Tablet) 25 mcg PO DAILY@0600 [facility] Last Admin: 06/26/23 06:13 Dose: 25 mcg Loratadine (Loratadine 10 Mg Tablet) 10 mg PO DAILY [facility] Last Admin: 06/26/23 08:01 Dose: 10 mg Magnesium Hydroxide (Milk Of Magnesia 30 Ml Oral.Susp) 30 ml PO DAILY PRN PRN Reason: Constipation Last Admin: 06/20/23 16:30 Dose: 30 ml Magnesium Oxide ([facility] 400 [facility] Admin: 06/26/23 08:01 Dose: 400 mg Mupirocin (Mupirocin 2 % Oint 22 Gm Tube) 1 appl TOPICAL BID PRN; Protocol PRN Reason: scalp lesions Last Admin: 06/24/23 09:04 Dose: 1 appl Risperidone (Risperidone 2 Mg Tablet) 2 mg PO BID [facility] Last Admin: 06/26/23 08:01 Dose: 2 mg Tamsulosin HCl (Tamsulosin Hcl 0.4 Mg Capsule) 0.4 mg PO BEDTIME [facility] Last Admin: 06/25/23 21:07 Dose: 0.4 mg Trazodone HCl (Trazodone Hcl 50 Mg Tablet) 50 mg PO BEDTIME PRN PRN Reason: Insomnia Last Admin: 06/25/23 21:07 Dose: 50 mg Allergies Allergies Allergy/AdvReac Type Severity Reaction Status Date / Time No Known Allergies Allergy Mild NOT Verified 06/03/23 18:57 APPLICABLE Assessment & Plan Assessment & Plan (1) Schizophrenia: Status: Acute Code(s): F20.9 - Schizophrenia, unspecified Plan Mr. Zaragoza is a 72 year-old male with hx of schizophrenia who was brought on a sect 12a due to pt exposing himself to the neighbors. Pt has been refusing medications at , becoming more agitated. On the unit, pt disorganized, refusing labs, selective about medications. PLAN 1. continue risperidone 2mg po BID. 2. filed sect 09/26. 06/11/2023 Patient not taking medication psychotic refusing medical care on section 7 may need to get abdominal CT scan patient recently had nausea vomiting seems to be somewhat better today concerns regarding incarcerated hernia patient not able to make medical decisions at this time refusing lab 06/12/2023 Somewhat more cooperative today did take 1 dose of Haldol encourage medication labs and vital signs no acute abdominal pain patient may need eventual guardianship for clarity regarding need for repair of quite significant inguinal hernia that impacts the patient's quality of life 06/13/2023 Patient may benefit from guardianship to make medical decisions Section [address] patient bizarre preoccupied Change Haldol to 10 mg bedtime 06/[address] hearing tomorrow. 06/14 risperidone 2mg po BID, back IM prolixin 5mg IM if pt refuses oral risperidone. Plan to do ADORNO of risperidone 06/15 continue tx. 06/16 continue tx. 06/17 add depakote 500mg po BID. prolixin 5mg po BID. 06/18 keep same treatment, encourage compliance. 06/19 keep same treatment 06/20 continue tx- plan for ADORNO this week 06/21 plan for ADORNO this week 06/22 continue tx. May try to change to prolixin as main antipsychotic. 06/23 give back IM if pt refuses either prolixin or risperidone. will try prolixin to be main antipsychotic as risperidone along only partially effective. 06/24 continue treatment plan 06/25: no changes Reason for continued inpatient stay Substantial Risk for: inability to function Time Spent With Patient Time: Total time managing care of this patient today ____ minutes.
[2023-06-26 18:00] VITALS: BP 111/62; PULSE 90; RESP 18; TEMP 36.3; O2SAT 99
[2023-06-26] MEDS: Tamsulosin HCL 0.4 MG CAPSULE PO (20:50)
[2023-06-26] MEDS: hydrOXYzine HCL 25 MG TABLET PO (20:51)
[2023-06-26] MEDS: traZODone HCL 50 MG TABLET PO (20:51)
[2023-06-26] MEDS: Atorvastatin Calcium 40 MG TABLET PO (20:51)
[2023-06-27] MEDS: Levothyroxine Sodium 25 MCG TABLET PO (05:46)
[2023-06-27] MEDS: Ferrous Sulfate 324 MG TABLET.DR PO (07:47)
[2023-06-27] MEDS: Magnesium Oxide 400 MG TABLET PO (07:47)
[2023-06-27] MEDS: Loratadine 10 MG TABLET PO (07:47)
[2023-06-27] MEDS: risperiDONE 2 MG TABLET PO ×2 (07:47→21:15)
[2023-06-27] MEDS: Divalproex Sodium Sprinkles 125 MG CAP.DR.SPR 500 MG PO ×2 (07:47→21:15)
[2023-06-27] MEDS: fluPHENAZine HCl 5 MG TABLET PO ×2 (07:48→21:15)
[2023-06-27] MEDS: Apixaban 5 MG TABLET PO ×2 (07:48→21:15)
[2023-06-27] MEDS: Fluticasone/Umeclidinium/Vilanterol 100/62.5/25 BLST.W.DEV 1 PUFF INHALE (07:48)
[2023-06-27 07:54] VITALS: BP 109/62; PULSE 101; RESP 18; TEMP 36.6; O2SAT 100
--- NOTE | 2023-06-27 11:03 | HO.PSYCHPN ---
Subjective Subjective Date of Service: 06/27/23 Reason For Visit: Psychosis Interim History: And with patient. Discussed with Nursing. Was asking today how long he will be in the hospital, fearful he would be here for ever. Reassurance provided round same. Some tearfulness today. denied feeling unsafe. Denied hallucinations. No med concerns and accepting Garcia order meds Medication Compliance: Yes Side effects from medications: No Attending Groups: Intermittent Review of Systems Acute medical concerns: No Review of Systems Review of Systems Unremarkable Mental Status Exam Mental Status Exam Narrative: Casual clothing. Self-care limited. Pleasant. Very tangential in thought form. A little pressured in speech. Denied depression. Affect is flat. No SI or HI. Does appear to have some paranoia. Denies hallucinations. Insight and judgment limited, but accepting of medications and treatment Diagnostics Vital Signs (24Hr): Vital Signs - 24 hr 06/26/23 18:00 06/27/23 07:54 Temperature 97.3 F 97.8 F Pulse Rate 90 101 H Respiratory Rate 18 18 Blood Pressure 111/62 109/62 Pulse Oximetry 99 100 Oxygen Delivery Method Room Air Room Air BMI result Body Mass Index 24.3 Labs 06/04/23 02:14 06/04/23 02:14 Medications Medications Current Medications Acetaminophen (Acetaminophen 325 Mg Tablet) 650 mg PO Q6H PRN PRN Reason: Headache/Pain Mild Scale (1-3) Last Admin: 06/26/23 08:13 Dose: 650 mg Al Hydroxide/Mg Hydroxide (Magnesium Hydrox/Alum Hydrox 30 Ml Oral.Susp) 30 ml PO Q6H PRN PRN Reason: Heartburn/Nausea Albuterol Sulfate (Albuterol Sulfate 90 Mcg 8 Gm Inhaler) 1 puff INHALE RQ4H PRN PRN Reason: Wheezing/SOB Apixaban (Apixaban 5 Mg Tablet) 5 mg PO BID [facility] Last Admin: 06/27/23 07:48 Dose: 5 mg Atorvastatin Calcium (Atorvastatin Calcium 40 Mg Tablet) 40 mg PO BEDTIME [facility] Last Admin: 06/26/23 20:51 Dose: 40 mg Divalproex Sodium (Divalproex Sodium Sprinkles 125 Mg Cap.) 500 mg PO BID [facility] Last Admin: 06/27/23 07:47 Dose: 500 mg Ferrous Sulfate (Ferrous Sulfate 324 Mg Tablet.) 324 mg PO DAILY [facility] Last Admin: 06/27/23 07:47 Dose: 324 mg Fluphenazine HCl (Fluphenazine Hcl 5 Mg Tablet) 5 mg PO BID [facility] Last Admin: 06/27/23 07:48 Dose: 5 mg Fluphenazine HCl (Fluphenazine Hcl 2.5 Mg/Ml 10 Ml Vial) 5 mg IM BID PRN PRN Reason: if refuses oral prolixin/rispe Fluticasone/Umeclidinium/Vilanterol (Fluticasone/Umeclidinium/Vilanterol 100/62.5/25 Blst.W.Dev) 1 puff INHALE RDAILY [facility] Last Admin: 06/27/23 07:48 Dose: 1 puff Hydroxyzine HCl (Hydroxyzine Hcl 25 Mg Tablet) 25 mg PO Q6H PRN PRN Reason: Anxiety Last Admin: 06/26/23 20:51 Dose: 25 mg Levothyroxine Sodium (Levothyroxine Sodium 25 Mcg Tablet) 25 mcg PO DAILY@0600 [facility] Last Admin: 06/27/23 05:46 Dose: 25 mcg Loratadine (Loratadine 10 Mg Tablet) 10 mg PO DAILY [facility] Last Admin: 06/27/23 07:47 Dose: 10 mg Magnesium Hydroxide (Milk Of Magnesia 30 Ml Oral.Susp) 30 ml PO DAILY PRN PRN Reason: Constipation Last Admin: 06/20/23 16:30 Dose: 30 ml [facility]esium Oxide ([facility]) [facility] Admin: 06/27/23 07:47 Dose: 400 mg Mupirocin (Mupirocin 2 % Oint 22 Gm Tube) 1 appl TOPICAL BID PRN; Protocol PRN Reason: scalp lesions Last Admin: 06/24/23 09:04 Dose: 1 appl Risperidone (Risperidone 2 Mg Tablet) 2 mg PO BID [facility] Last Admin: 06/27/23 07:47 Dose: 2 mg Tamsulosin HCl (Tamsulosin Hcl 0.4 Mg Capsule) 0.4 mg PO BEDTIME [facility] Last Admin: 06/26/23 20:50 Dose: 0.4 mg Trazodone HCl (Trazodone Hcl 50 Mg Tablet) 50 mg PO BEDTIME PRN PRN Reason: Insomnia Last Admin: 06/26/23 20:51 Dose: 50 mg Allergies Allergies Allergy/AdvReac Type Severity Reaction Status Date / Time No Known Allergies Allergy Mild NOT Verified 06/03/23 18:57 APPLICABLE Assessment & Plan Assessment & Plan (1) Schizophrenia: Status: Acute Code(s): F20.9 - Schizophrenia, unspecified Plan Mr. Zaragoza is a 72 year-old male with hx of schizophrenia who was brought on a sect 12a due to pt exposing himself to the neighbors. Pt has been refusing medications at , becoming more agitated. On the unit, pt disorganized, refusing labs, selective about medications. PLAN 1. continue risperidone 2mg po BID. 2. filed sect 7/8. 06/11/2023 Patient not taking medication psychotic refusing medical care on section 7 may need to get abdominal CT scan patient recently had nausea vomiting seems to be somewhat better today concerns regarding incarcerated hernia patient not able to make medical decisions at this time refusing lab 06/12/2023 Somewhat more cooperative today did take 1 dose of Haldol encourage medication labs and vital signs no acute abdominal pain patient may need eventual guardianship for clarity regarding need for repair of quite significant inguinal hernia that impacts the patient's quality of life 06/13/2023 Patient may benefit from guardianship to make medical decisions Section [address] patient bizarre preoccupied Change Haldol to 10 mg bedtime 06/[address] hearing tomorrow. 06/14 risperidone 2mg po BID, back IM prolixin 5mg IM if pt refuses oral risperidone. Plan to do ADORNO of risperidone 06/15 continue tx. 06/16 continue tx. 06/17 add depakote 500mg po BID. prolixin 5mg po BID. 06/18 keep same treatment, encourage compliance. 06/19 keep same treatment 06/20 continue tx- plan for ADORNO this week 06/21 plan for ADORNO this week 06/22 continue tx. May try to change to prolixin as main antipsychotic. 06/23 give back IM if pt refuses either prolixin or risperidone. will try prolixin to be main antipsychotic as risperidone along only partially effective. 06/24 continue treatment plan 06/25: no changes 06/26: no changes Reason for continued inpatient stay Substantial Risk for: inability to function Time Spent With Patient Time: Total time managing care of this patient today ____ minutes.
[2023-06-27 19:35] VITALS: BP 112/74; PULSE 78; RESP 16; TEMP 36.6; O2SAT 96
[2023-06-27] MEDS: Atorvastatin Calcium 40 MG TABLET PO (21:15)
[2023-06-27] MEDS: Tamsulosin HCL 0.4 MG CAPSULE PO (21:15)
[2023-06-28] MEDS: Levothyroxine Sodium 25 MCG TABLET PO (05:46)
[2023-06-28 07:45] VITALS: BP 129/57; PULSE 97; RESP 20; TEMP 36.2; O2SAT 99
[2023-06-28] MEDS: Fluticasone/Umeclidinium/Vilanterol 100/62.5/25 BLST.W.DEV 1 PUFF INHALE (09:16)
[2023-06-28] MEDS: Mupirocin 2 % Oint 22 GM TUBE 1 APPL TOPICAL (09:16)
[2023-06-28] MEDS: risperiDONE 2 MG TABLET PO ×2 (09:17→20:29)
[2023-06-28] MEDS: Magnesium Oxide 400 MG TABLET PO (09:17)
[2023-06-28] MEDS: fluPHENAZine HCl 5 MG TABLET PO ×2 (09:17→20:29)
[2023-06-28] MEDS: Loratadine 10 MG TABLET PO (09:17)
[2023-06-28] MEDS: Apixaban 5 MG TABLET PO ×2 (09:17→20:29)
[2023-06-28] MEDS: Ferrous Sulfate 324 MG TABLET.DR PO (09:17)
[2023-06-28] MEDS: Divalproex Sodium Sprinkles 125 MG CAP.DR.SPR 500 MG PO ×2 (09:17→20:29)
--- NOTE | 2023-06-28 13:57 | HO.PSYCHPN ---
Subjective Subjective Date of Service: 06/28/23 Reason For Visit: Psychosis Interim History: irritable, argumentative. states he has an appeal scheduled and wants to know when it is. SW unaware. staff combat information center officer unaware. pt redirected to speak with his estate planning paralegal. replies, i don't have a episcopalian soft iron inspector. per staff, eating, sleeping, taking meds. Mental Status Exam Mental Status Exam Narrative: Casual clothing. Self-care limited. irritable, argumentative. Very tangential in thought form. A little pressured in speech. Affect is flat. No SI or HI or AVH expressed. Does appear to have some paranoia. Insight and judgment limited, but accepting of medications and treatment Diagnostics Vital Signs (24Hr): Vital Signs - 24 hr 06/27/23 19:35 06/28/23 07:45 Temperature 97.8 F 97.2 F Pulse Rate 78 97 Respiratory Rate 16 20 Blood Pressure 112/74 129/57 L Pulse Oximetry 96 99 Oxygen Delivery Method Room Air Room Air BMI result Body Mass Index 24.3 Labs 06/04/23 02:14 06/04/23 02:14 Medications Medications Current Medications Acetaminophen (Acetaminophen 325 Mg Tablet) 650 mg PO Q6H PRN PRN Reason: Headache/Pain Mild Scale (1-3) Last Admin: 06/26/23 08:13 Dose: 650 mg Al Hydroxide/Mg Hydroxide (Magnesium Hydrox/Alum Hydrox 30 Ml Oral.Susp) 30 ml PO Q6H PRN PRN Reason: Heartburn/Nausea Albuterol Sulfate (Albuterol Sulfate 90 Mcg 8 Gm Inhaler) 1 puff INHALE RQ4H PRN PRN Reason: Wheezing/SOB Apixaban (Apixaban 5 Mg Tablet) 5 mg PO BID [facility] Last Admin: 06/28/23 09:17 Dose: 5 mg Atorvastatin Calcium (Atorvastatin Calcium 40 Mg Tablet) 40 mg PO BEDTIME [facility] Last Admin: 06/27/23 21:15 Dose: 40 mg Divalproex Sodium (Divalproex Sodium Sprinkles 125 Mg Cap.) 500 mg PO BID [facility] Last Admin: 06/28/23 09:17 Dose: 500 mg Ferrous Sulfate (Ferrous Sulfate 324 Mg Tablet.Dr) 324 mg PO DAILY [facility] Last Admin: 06/28/23 09:17 Dose: 324 mg Fluphenazine HCl (Fluphenazine Hcl 5 Mg Tablet) 5 mg PO BID [facility] Last Admin: 06/28/23 09:17 Dose: 5 mg Fluphenazine HCl (Fluphenazine Hcl 2.5 Mg/Ml 10 Ml Vial) 5 mg IM BID PRN PRN Reason: if refuses oral prolixin/rispe Fluticasone/Umeclidinium/Vilanterol (Fluticasone/Umeclidinium/Vilanterol 100/62.5/25 Blst.W.Dev) 1 puff INHALE RDAILY [facility] Last Admin: 06/28/23 09:16 Dose: 1 puff Hydroxyzine HCl (Hydroxyzine Hcl 25 Mg Tablet) 25 mg PO Q6H PRN PRN Reason: Anxiety Last Admin: 06/26/23 20:51 Dose: 25 mg Levothyroxine Sodium (Levothyroxine Sodium 25 Mcg Tablet) 25 mcg PO DAILY@0600 [facility] Last Admin: 06/28/23 05:46 Dose: 25 mcg Loratadine (Loratadine 10 Mg Tablet) 10 mg PO DAILY [facility] Last Admin: 06/28/23 09:17 Dose: 10 mg Magnesium Hydroxide (Milk Of Magnesia 30 Ml Oral.Susp) 30 ml PO DAILY PRN PRN Reason: Constipation Last Admin: 06/20/23 16:30 Dose: 30 ml Magnesium Oxide ([facility] 400 Mg Tablet) [facility] Last Admin: 06/28/23 09:17 Dose: 400 mg Mupirocin (Mupirocin 2 % Oint 22 Gm Tube) 1 appl TOPICAL BID PRN; Protocol PRN Reason: scalp lesions Last Admin: 06/28/23 09:16 Dose: 1 appl Risperidone (Risperidone 2 Mg Tablet) 2 mg PO BID [facility] Last Admin: 06/28/23 09:17 Dose: 2 mg Tamsulosin HCl (Tamsulosin Hcl 0.4 Mg Capsule) 0.4 mg PO BEDTIME [facility] Last Admin: 06/27/23 21:15 Dose: 0.4 mg Trazodone HCl (Trazodone Hcl 50 Mg Tablet) 50 mg PO BEDTIME PRN PRN Reason: Insomnia Last Admin: 06/26/23 20:51 Dose: 50 mg Allergies Allergies Allergy/AdvReac Type Severity Reaction Status Date / Time No Known Allergies Allergy Mild NOT Verified 06/03/23 18:57 APPLICABLE Assessment & Plan Assessment & Plan (1) Schizophrenia: Status: Acute Code(s): F20.9 - Schizophrenia, unspecified Plan Mr. Zaragoza is a 72 year-old male with hx of schizophrenia who was brought on a sect 12a due to pt exposing himself to the neighbors. Pt has been refusing medications at , becoming more agitated. On the unit, pt disorganized, refusing labs, selective about medications. PLAN 1. continue risperidone 2mg po BID. 2. filed sect 09/26. 06/11/2023 Patient not taking medication psychotic refusing medical care on section 7 may need to get abdominal CT scan patient recently had nausea vomiting seems to be somewhat better today concerns regarding incarcerated hernia patient not able to make medical decisions at this time refusing lab 06/12/2023 Somewhat more cooperative today did take 1 dose of Haldol encourage medication labs and vital signs no acute abdominal pain patient may need eventual guardianship for clarity regarding need for repair of quite significant inguinal hernia that impacts the patient's quality of life 06/13/2023 Patient may benefit from guardianship to make medical decisions Section [address] patient bizarre preoccupied Change Haldol to 10 mg bedtime 06/[address] hearing tomorrow. 06/14 risperidone 2mg po BID, back IM prolixin 5mg IM if pt refuses oral risperidone. Plan to do ADORNO of risperidone 06/15 continue tx. 06/16 continue tx. 06/17 add depakote 500mg po BID. prolixin 5mg po BID. 06/18 keep same treatment, encourage compliance. 06/19 keep same treatment 06/20 continue tx- plan for ADORNO this week 06/21 plan for ADORNO this week 06/22 continue tx. May try to change to prolixin as main antipsychotic. 06/23 give back IM if pt refuses either prolixin or risperidone. will try prolixin to be main antipsychotic as risperidone along only partially effective. 06/24 continue treatment plan 06/25: no changes 06/26: no changes 06/27: irritable, argumentative. states he has an appeal hearing scheduled, redirected to speak with his soft iron inspector. taking meds, no substantial behavioral concerns. Reason for continued inpatient stay Substantial Risk for: harm to others, inability to function and rapid decompensation Time Spent With Patient Time: Total time managing care of this patient today ____ minutes.
[2023-06-28 16:11] LABS: Appearance Urine Clear; Color Urine Yellow; Glucose Urine UA Negative (Negative); Leukocyte Esterase Urine Negative (Negative); Nitrite Urine Negative (Negative); Urine Blood Negative (Negative); Urine Ketones Trace mg/dL (Negative); Urine Protein Negative (Neg-Trace)
--- NOTE | 2023-06-28 18:27 | PM.EVENT ---
Event Note Date of Service: 06/28/23 Event Note: Consult placed to hospitalist service for evaluation of dysuria. Urinalysis is unremarkable. No evidence of UTI. Will add on gonorrhea and chlamydia PCR though low suspicion. He does have history of BPH. Will initiate Pyridium t.i.d. p.r.n. for dysuria. However, recommend consult to urology service for further evaluation and management. Discussed with psychiatry Thank you for allowing me to participate in this consult. Signing off at this time. Please do not hesitate to call for further questions. Time Spent With Patient Time: Total time managing care of this patient today ____ minutes.
[2023-06-28] MEDS: Atorvastatin Calcium 40 MG TABLET PO (20:29)
[2023-06-28] MEDS: Tamsulosin HCL 0.4 MG CAPSULE PO (20:29)
[2023-06-29] MEDS: Levothyroxine Sodium 25 MCG TABLET PO (06:00)
[2023-06-29 07:55] VITALS: BP 118/60; PULSE 95; RESP 16; TEMP 35.7; O2SAT 99
[2023-06-29] MEDS: Divalproex Sodium Sprinkles 125 MG CAP.DR.SPR 500 MG PO ×2 (08:17→20:47)
[2023-06-29] MEDS: Mupirocin 2 % Oint 22 GM TUBE 1 APPL TOPICAL (08:17)
[2023-06-29] MEDS: Fluticasone/Umeclidinium/Vilanterol 100/62.5/25 BLST.W.DEV 1 PUFF INHALE (08:17)
[2023-06-29] MEDS: Apixaban 5 MG TABLET PO ×2 (08:18→20:47)
[2023-06-29] MEDS: Magnesium Oxide 400 MG TABLET PO ×2 (08:18→16:36)
[2023-06-29] MEDS: risperiDONE 2 MG TABLET PO ×2 (08:18→20:46)
[2023-06-29] MEDS: Loratadine 10 MG TABLET PO (08:18)
[2023-06-29] MEDS: fluPHENAZine HCl 5 MG TABLET PO ×2 (08:18→20:47)
[2023-06-29] MEDS: Ferrous Sulfate 324 MG TABLET.DR PO (08:19)
--- NOTE | 2023-06-29 15:40 | HO.PSYCHPN ---
Subjective Subjective Date of Service: 06/29/23 Reason For Visit: Psychosis Interim History: slower, more receptive, less irritable than yesterday. asks how long he will be here for, estimates several months. understands that taking medication may help him leave sooner. per staff, denying penile/pain with urination. took VPA last night. no notable events or behaviors. Mental Status Exam Mental Status Exam Narrative: Casual clothing. Self-care limited. more receptive and polite today. much more linear than yesterday. speech is slower than yesterday. Affect is constricted. No SI or HI or AVH expressed. Does appear to have some paranoia. Insight and judgment limited, but accepting of medications and treatment Diagnostics Vital Signs (24Hr): Vital Signs - 24 hr 06/29/23 07:55 Temperature 96.2 F L Pulse Rate 95 Respiratory Rate 16 Blood Pressure 118/60 Pulse Oximetry 99 Oxygen Delivery Method Room Air BMI result Body Mass Index 24.3 Labs 06/04/23 02:14 06/04/23 02:14 Labs: Laboratory Results - last 48 hr 06/28/23 16:00 Urine Color Yellow Urine Appearance Clear Urine pH 7.0 Ur Specific [place] 1.020 Urine Protein Negative Urine Glucose (UA) Negative Urine Ketones Trace Urine Blood Negative Urine Nitrite Negative Ur Leukocyte Esterase Negative Medications Medications Current Medications Acetaminophen (Acetaminophen 325 Mg Tablet) 650 mg PO Q6H PRN PRN Reason: Headache/Pain Mild Scale (1-3) Last Admin: 06/26/23 08:13 Dose: 650 mg Al Hydroxide/Mg Hydroxide (Magnesium Hydrox/Alum Hydrox 30 Ml Oral.Susp) 30 ml PO Q6H PRN PRN Reason: Heartburn/Nausea Albuterol Sulfate (Albuterol Sulfate 90 Mcg 8 Gm Inhaler) 1 puff INHALE RQ4H PRN PRN Reason: Wheezing/SOB Apixaban (Apixaban 5 Mg Tablet) 5 mg PO BID [facility] Last Admin: 06/29/23 08:18 Dose: 5 mg Atorvastatin Calcium (Atorvastatin Calcium 40 Mg Tablet) 40 mg PO BEDTIME [facility] Last Admin: 06/28/23 20:29 Dose: 40 mg Divalproex Sodium (Divalproex Sodium Sprinkles 125 Mg Cap.) 500 mg PO BID [facility] Last Admin: 06/29/23 08:17 Dose: 500 mg Ferrous Sulfate (Ferrous Sulfate 324 Mg Tablet.) 324 mg PO DAILY [facility] Last Admin: 06/29/23 08:19 Dose: 324 mg Fluphenazine HCl (Fluphenazine Hcl 5 Mg Tablet) 5 mg PO BID [facility] Last Admin: 06/29/23 08:18 Dose: 5 mg Fluphenazine HCl (Fluphenazine Hcl 2.5 Mg/Ml 10 Ml Vial) 5 mg IM BID PRN PRN Reason: if refuses oral prolixin/rispe Fluticasone/Umeclidinium/Vilanterol (Fluticasone/Umeclidinium/Vilanterol 100/62.5/25 Blst.W.Dev) 1 puff INHALE RDAILY [facility] Last Admin: 06/29/23 08:17 Dose: 1 puff Hydroxyzine HCl (Hydroxyzine Hcl 25 Mg Tablet) 25 mg PO Q6H PRN PRN Reason: Anxiety Last Admin: 06/26/23 20:51 Dose: 25 mg Levothyroxine Sodium (Levothyroxine Sodium 25 Mcg Tablet) 25 mcg PO DAILY@0600 [facility] Last Admin: 06/28/23 05:46 Dose: 25 mcg Loratadine (Loratadine 10 Mg Tablet) 10 mg PO DAILY [facility] Last Admin: 06/29/23 08:18 Dose: 10 mg Magnesium Hydroxide (Milk Of Magnesia 30 Ml Oral.Susp) 30 ml PO DAILY PRN PRN Reason: Constipation Last Admin: 06/20/23 16:30 Dose: 30 ml Magnesium Oxide (Magnesium Oxide 400 Mg Tablet) 400 mg PO BIDPC [facility] Last Admin: 06/29/23 08:18 Dose: 400 mg Mupirocin (Mupirocin 2 % Oint 22 Gm Tube) 1 appl TOPICAL BID PRN; Protocol PRN Reason: scalp lesions Last Admin: 06/29/23 08:17 Dose: 1 appl Phenazopyridine HCl (Phenazopyridine Hcl 200 Mg Tablet) 200 mg PO TID PRN PRN Reason: dysuria Risperidone (Risperidone 2 Mg Tablet) 2 mg PO BID [facility] Last Admin: 06/29/23 08:18 Dose: 2 mg Tamsulosin HCl (Tamsulosin Hcl 0.4 Mg Capsule) 0.4 mg PO BEDTIME [facility] Last Admin: 06/28/23 20:29 Dose: 0.4 mg Trazodone HCl (Trazodone Hcl 50 Mg Tablet) 50 mg PO BEDTIME PRN PRN Reason: Insomnia Last Admin: 06/26/23 20:51 Dose: 50 mg Allergies Allergies Allergy/AdvReac Type Severity Reaction Status Date / Time No Known Allergies Allergy Mild NOT Verified 06/03/23 18:57 APPLICABLE Assessment & Plan Assessment & Plan (1) Schizophrenia: Status: Acute Code(s): F20.9 - Schizophrenia, unspecified Plan Mr. Zaragoza is a 72 year-old male with hx of schizophrenia who was brought on a sect 12a due to pt exposing himself to the neighbors. Pt has been refusing medications at , becoming more agitated. On the unit, pt disorganized, refusing labs, selective about medications. PLAN 1. continue risperidone 2mg po BID. 2. filed sect 09/26. 06/11/2023 Patient not taking medication psychotic refusing medical care on section 7 may need to get abdominal CT scan patient recently had nausea vomiting seems to be somewhat better today concerns regarding incarcerated hernia patient not able to make medical decisions at this time refusing lab 06/12/2023 Somewhat more cooperative today did take 1 dose of Haldol encourage medication labs and vital signs no acute abdominal pain patient may need eventual guardianship for clarity regarding need for repair of quite significant inguinal hernia that impacts the patient's quality of life 06/13/2023 Patient may benefit from guardianship to make medical decisions Section [address] patient bizarre preoccupied Change Haldol to 10 mg bedtime 06/[address] hearing tomorrow. 06/14 risperidone 2mg po BID, back IM prolixin 5mg IM if pt refuses oral risperidone. Plan to do ADORNO of risperidone 06/15 continue tx. 06/16 continue tx. 06/17 add depakote 500mg po BID. prolixin 5mg po BID. 06/18 keep same treatment, encourage compliance. 06/19 keep same treatment 06/20 continue tx- plan for ADORNO this week 06/21 plan for ADORNO this week 06/22 continue tx. May try to change to prolixin as main antipsychotic. 06/23 give back IM if pt refuses either prolixin or risperidone. will try prolixin to be main antipsychotic as risperidone along only partially effective. 06/24 continue treatment plan 06/25: no changes 06/26: no changes 06/27: irritable, argumentative. states he has an appeal hearing scheduled, redirected to speak with his veneer glue spreader. taking meds, no substantial behavioral concerns. 06/28: taking meds. much less irritable and labile than yesterday. more organized, asking when he might be able to discharge. continue current mgmt. denying penile pain, no need for further w/u presently (no UTI). Reason for continued inpatient stay Substantial Risk for: inability to function and rapid decompensation Time Spent With Patient Time: Total time managing care of this patient today __25__ minutes.
[2023-06-29] MEDS: Tamsulosin HCL 0.4 MG CAPSULE PO (20:46)
[2023-06-29] MEDS: Atorvastatin Calcium 40 MG TABLET PO (20:46)
[2023-06-30] MEDS: Levothyroxine Sodium 25 MCG TABLET PO (07:05)
[2023-06-30 08:00] VITALS: BP 100/56; PULSE 105; RESP 18; TEMP 36.4; O2SAT 99
[2023-06-30] MEDS: Fluticasone/Umeclidinium/Vilanterol 100/62.5/25 BLST.W.DEV 1 PUFF INHALE (10:41)
[2023-06-30] MEDS: Divalproex Sodium Sprinkles 125 MG CAP.DR.SPR 500 MG PO ×2 (10:42→21:46)
[2023-06-30] MEDS: Ferrous Sulfate 324 MG TABLET.DR PO (10:44)
[2023-06-30] MEDS: risperiDONE 2 MG TABLET PO ×2 (10:44→21:47)
[2023-06-30] MEDS: fluPHENAZine HCl 5 MG TABLET PO ×2 (10:44→21:47)
[2023-06-30] MEDS: Magnesium Oxide 400 MG TABLET PO (10:44)
[2023-06-30] MEDS: Apixaban 5 MG TABLET PO ×2 (10:44→21:46)
[2023-06-30] MEDS: Loratadine 10 MG TABLET PO (10:44)
--- NOTE | 2023-06-30 14:26 | HO.PSYCHPN ---
Subjective Subjective Date of Service: 06/30/23 Reason For Visit: Psychosis Interim History: presents as per yesterday, improved from 2 days ago. no complaints or requests, states he is taking his meds, interested in discharging as soon as possible. per staff, in a good mood, taking meds. eating, not isolating. slept well overnight. no dysuria. Mental Status Exam Mental Status Exam Narrative: Casual clothing. Self-care limited. more receptive and polite today. much more linear than 2 days prior. speech is slower than 2 days prior. Affect is constricted. No SI or HI or AVH expressed. Does appear to have some paranoia. Insight and judgment limited, but accepting of medications and treatment Diagnostics Vital Signs (24Hr): Vital Signs - 24 hr 06/30/23 08:00 Temperature 97.6 F Pulse Rate 105 H Respiratory Rate 18 Blood Pressure 100/56 L Pulse Oximetry 99 Oxygen Delivery Method Room Air BMI result Body Mass Index 24.3 Labs 06/04/23 02:14 06/04/23 02:14 Labs: Laboratory Results - last 48 hr 06/28/23 16:00 Urine Color Yellow Urine Appearance Clear Urine pH 7.0 Ur Specific [place] 1.020 Urine Protein Negative Urine Glucose (UA) Negative Urine Ketones Trace Urine Blood Negative Urine Nitrite Negative Ur Leukocyte Esterase Negative Medications Medications Current Medications Acetaminophen (Acetaminophen 325 Mg Tablet) 650 mg PO Q6H PRN PRN Reason: Headache/Pain Mild Scale (1-3) Last Admin: 06/26/23 08:13 Dose: 650 mg Al Hydroxide/Mg Hydroxide (Magnesium Hydrox/Alum Hydrox 30 Ml Oral.Susp) 30 ml PO Q6H PRN PRN Reason: Heartburn/Nausea Albuterol Sulfate (Albuterol Sulfate 90 Mcg 8 Gm Inhaler) 1 puff INHALE RQ4H PRN PRN Reason: Wheezing/SOB Apixaban (Apixaban 5 Mg Tablet) 5 mg PO BID [facility] Last Admin: 06/30/23 10:44 Dose: 5 mg Atorvastatin Calcium (Atorvastatin Calcium 40 Mg Tablet) 40 mg PO BEDTIME [facility] Last Admin: 06/29/23 20:46 Dose: 40 mg Divalproex Sodium (Divalproex Sodium Sprinkles 125 Mg Cap.) 500 mg PO BID [facility] Last Admin: 06/30/23 10:42 Dose: 500 mg Ferrous Sulfate (Ferrous Sulfate 324 Mg Tablet.) 324 mg PO DAILY [facility] Last Admin: 06/30/23 10:44 Dose: 324 mg Fluphenazine HCl (Fluphenazine Hcl 5 Mg Tablet) 5 mg PO BID [facility] Last Admin: 06/30/23 10:44 Dose: 5 mg Fluphenazine HCl (Fluphenazine Hcl 2.5 Mg/Ml 10 Ml Vial) 5 mg IM BID PRN PRN Reason: if refuses oral prolixin/rispe Fluticasone/Umeclidinium/Vilanterol (Fluticasone/Umeclidinium/Vilanterol 100/62.5/25 Blst.W.Dev) 1 puff INHALE RDAILY [facility] Last Admin: 06/30/23 10:41 Dose: 1 puff Hydroxyzine HCl (Hydroxyzine Hcl 25 Mg Tablet) 25 mg PO Q6H PRN PRN Reason: Anxiety Last Admin: 06/26/23 20:51 Dose: 25 mg Levothyroxine Sodium (Levothyroxine Sodium 25 Mcg Tablet) 25 mcg PO DAILY@0600 [facility] Last Admin: 06/30/23 07:05 Dose: 25 mcg Loratadine (Loratadine 10 Mg Tablet) 10 mg PO DAILY [facility] Last Admin: 06/30/23 10:44 Dose: 10 mg Magnesium Hydroxide (Milk Of Magnesia 30 Ml Oral.Susp) 30 ml PO DAILY PRN PRN Reason: Constipation Last Admin: 06/20/23 16:30 Dose: 30 ml Magnesium Oxide (Magnesium Oxide 400 Mg Tablet) 400 mg PO BIDPC [facility] Last Admin: 06/30/23 10:44 Dose: 400 mg Mupirocin (Mupirocin 2 % Oint 22 Gm Tube) 1 appl TOPICAL BID PRN; Protocol PRN Reason: scalp lesions Last Admin: 06/29/23 08:17 Dose: 1 appl Phenazopyridine HCl (Phenazopyridine Hcl 200 Mg Tablet) 200 mg PO TID PRN PRN Reason: dysuria Risperidone (Risperidone 2 Mg Tablet) 2 mg PO BID [facility] Last Admin: 06/30/23 10:44 Dose: 2 mg Tamsulosin HCl (Tamsulosin Hcl 0.4 Mg Capsule) 0.4 mg PO BEDTIME [facility] Last Admin: 06/29/23 20:46 Dose: 0.4 mg Trazodone HCl (Trazodone Hcl 50 Mg Tablet) 50 mg PO BEDTIME PRN PRN Reason: Insomnia Last Admin: 06/26/23 20:51 Dose: 50 mg Allergies Allergies Allergy/AdvReac Type Severity Reaction Status Date / Time No Known Allergies Allergy Mild NOT Verified 06/03/23 18:57 APPLICABLE Assessment & Plan Assessment & Plan (1) Schizophrenia: Status: Acute Code(s): F20.9 - Schizophrenia, unspecified Plan Mr. Zaragoza is a 72 year-old male with hx of schizophrenia who was brought on a sect 12a due to pt exposing himself to the neighbors. Pt has been refusing medications at , becoming more agitated. On the unit, pt disorganized, refusing labs, selective about medications. PLAN 1. continue risperidone 2mg po BID. 2. filed sect 09/26. 06/11/2023 Patient not taking medication psychotic refusing medical care on section 7 may need to get abdominal CT scan patient recently had nausea vomiting seems to be somewhat better today concerns regarding incarcerated hernia patient not able to make medical decisions at this time refusing lab 06/12/2023 Somewhat more cooperative today did take 1 dose of Haldol encourage medication labs and vital signs no acute abdominal pain patient may need eventual guardianship for clarity regarding need for repair of quite significant inguinal hernia that impacts the patient's quality of life 06/13/2023 Patient may benefit from guardianship to make medical decisions Section [address] patient bizarre preoccupied Change Haldol to 10 mg bedtime 06/[address] hearing tomorrow. 06/14 risperidone 2mg po BID, back IM prolixin 5mg IM if pt refuses oral risperidone. Plan to do ADORNO of risperidone 06/15 continue tx. 06/16 continue tx. 06/17 add depakote 500mg po BID. prolixin 5mg po BID. 06/18 keep same treatment, encourage compliance. 06/19 keep same treatment 06/20 continue tx- plan for ADORNO this week 06/21 plan for ADORNO this week 06/22 continue tx. May try to change to prolixin as main antipsychotic. 06/23 give back IM if pt refuses either prolixin or risperidone. will try prolixin to be main antipsychotic as risperidone along only partially effective. 06/24 continue treatment plan 06/25: no changes 06/26: no changes 4/8: irritable, argumentative. states he has an appeal hearing scheduled, redirected to speak with his licensing director. taking meds, no substantial behavioral concerns. 06/28: taking meds. much less irritable and labile than yesterday. more organized, asking when he might be able to discharge. continue current mgmt. denying penile pain, no need for further w/u presently (no UTI). 06/29: continues improved, taking meds. continue current mgmt. Reason for continued inpatient stay Substantial Risk for: inability to function and rapid decompensation Time Spent With Patient Time: Total time managing care of this patient today __25__ minutes.
[2023-06-30] MEDS: Atorvastatin Calcium 40 MG TABLET PO (21:46)
[2023-06-30] MEDS: Tamsulosin HCL 0.4 MG CAPSULE PO (21:47)
[2023-07-01] MEDS: Levothyroxine Sodium 25 MCG TABLET PO (06:39)
[2023-07-01 07:00] VITALS: BMI 25.4
[2023-07-01 08:00] VITALS: BP 128/61; PULSE 97; RESP 18; TEMP 36.2; O2SAT 99
[2023-07-01] MEDS: Ferrous Sulfate 324 MG TABLET.DR PO (08:44)
[2023-07-01] MEDS: Magnesium Oxide 400 MG TABLET PO ×3 (08:44→16:52)
[2023-07-01] MEDS: Loratadine 10 MG TABLET PO (08:45)
[2023-07-01] MEDS: Apixaban 5 MG TABLET PO ×2 (08:45→20:10)
[2023-07-01] MEDS: risperiDONE 2 MG TABLET PO ×2 (08:45→20:10)
[2023-07-01] MEDS: fluPHENAZine HCl 5 MG TABLET PO ×2 (08:45→20:10)
[2023-07-01] MEDS: Fluticasone/Umeclidinium/Vilanterol 100/62.5/25 BLST.W.DEV 1 PUFF INHALE (09:11)
--- NOTE | 2023-07-01 14:02 | P.PNPSI_ITS ---
Subjective Subjective Date of Service: 07/01/23 Reason For Visit: Psychosis Interim History: chatty, personable. discuss at length options for VPA. pt would like to only take once daily, educated re various formulations, that once daily is ER, large pills. pt states he would like to try all at HS. Mental Status Exam Mental Status Exam Narrative: Casual clothing. Self-care limited. receptive and polite today. much more linear than 2 days prior. speech is slower than 2 days prior. Affect is constricted. No SI or HI or AVH expressed. Insight and judgment limited, but accepting of medications and treatment Diagnostics Vital Signs (24Hr): Vital Signs - 24 hr 07/01/23 08:00 Temperature 97.2 F Pulse Rate 97 Respiratory Rate 18 Blood Pressure 128/61 Pulse Oximetry 99 Oxygen Delivery Method Room Air BMI result Body Mass Index 25.4 Labs 06/04/23 02:14 06/04/23 02:14 Medications Medications Current Medications Acetaminophen (Acetaminophen 325 Mg Tablet) 650 mg PO Q6H PRN PRN Reason: Headache/Pain Mild Scale (1-3) Last Admin: 06/26/23 08:13 Dose: 650 mg Al Hydroxide/Mg Hydroxide (Magnesium Hydrox/Alum Hydrox 30 Ml Oral.Susp) 30 ml PO Q6H PRN PRN Reason: Heartburn/Nausea Albuterol Sulfate (Albuterol Sulfate 90 Mcg 8 Gm Inhaler) 1 puff INHALE RQ4H PRN PRN Reason: Wheezing/SOB Apixaban (Apixaban 5 Mg Tablet) 5 mg PO BID [facility] Last Admin: 07/01/23 08:45 Dose: 5 mg Atorvastatin Calcium (Atorvastatin Calcium 40 Mg Tablet) 40 mg PO BEDTIME [facility] Last Admin: 06/30/23 21:46 Dose: 40 mg Divalproex Sodium (Divalproex Sodium Er 500 Mg Tab.Er.24h) 1,000 mg PO BEDTIME [facility] Ferrous Sulfate (Ferrous Sulfate 324 Mg Tablet.Dr) 324 mg PO DAILY [facility] Last Admin: 07/01/23 08:44 Dose: 324 mg Fluphenazine HCl (Fluphenazine Hcl 5 Mg Tablet) 5 mg PO BID [facility] Last Admin: 07/01/23 08:45 Dose: 5 mg Fluphenazine HCl (Fluphenazine Hcl 2.5 Mg/Ml 10 Ml Vial) 5 mg IM BID PRN PRN Reason: if refuses oral prolixin/rispe Fluticasone/Umeclidinium/Vilanterol (Fluticasone/Umeclidinium/Vilanterol 100/62.5/25 Blst.W.Dev) 1 puff INHALE RDAILY [facility] Last Admin: 07/01/23 09:11 Dose: 1 puff Hydroxyzine HCl (Hydroxyzine Hcl 25 Mg Tablet) 25 mg PO Q6H PRN PRN Reason: Anxiety Last Admin: 06/26/23 20:51 Dose: 25 mg Levothyroxine Sodium (Levothyroxine Sodium 25 Mcg Tablet) 25 mcg PO DAILY@0600 [facility] Last Admin: 07/01/23 06:39 Dose: 25 mcg Loratadine (Loratadine 10 Mg Tablet) 10 mg PO DAILY [facility] Last Admin: 07/01/23 08:45 Dose: 10 mg Magnesium Hydroxide (Milk Of Magnesia 30 Ml Oral.Susp) 30 ml PO DAILY PRN PRN Reason: Constipation Last Admin: 06/20/23 16:30 Dose: 30 ml Magnesium Oxide (Magnesium Oxide 400 Mg Tablet) 400 mg PO BIDPC [facility] Last Admin: 07/01/23 08:51 Dose: 400 mg Mupirocin (Mupirocin 2 % Oint 22 Gm Tube) 1 appl TOPICAL BID PRN; Protocol PRN Reason: scalp lesions Last Admin: 06/29/23 08:17 Dose: 1 appl Phenazopyridine HCl (Phenazopyridine Hcl 200 Mg Tablet) 200 mg PO TID PRN PRN Reason: dysuria Risperidone (Risperidone 2 Mg Tablet) 2 mg PO BID [facility] Last Admin: 07/01/23 08:45 Dose: 2 mg Tamsulosin HCl (Tamsulosin Hcl 0.4 Mg Capsule) 0.4 mg PO BEDTIME [facility] Last Admin: 06/30/23 21:47 Dose: 0.4 mg Allergies Allergies Allergy/AdvReac Type Severity Reaction Status Date / Time No Known Allergies Allergy Mild NOT Verified 06/03/23 18:57 APPLICABLE Assessment & Plan Assessment & Plan (1) Schizophrenia: Status: Acute Code(s): F20.9 - Schizophrenia, unspecified Plan Mr. Zaragoza is a 72 year-old male with hx of schizophrenia who was brought on a sect 12a due to pt exposing himself to the neighbors. Pt has been refusing medications at , becoming more agitated. On the unit, pt disorganized, refusing labs, selective about medications. PLAN 1. continue risperidone 2mg po BID. 2. filed sect 09/26. 06/11/2023 Patient not taking medication psychotic refusing medical care on section 7 may need to get abdominal CT scan patient recently had nausea vomiting seems to be somewhat better today concerns regarding incarcerated hernia patient not able to make medical decisions at this time refusing lab 06/12/2023 Somewhat more cooperative today did take 1 dose of Haldol encourage medication labs and vital signs no acute abdominal pain patient may need eventual guardianship for clarity regarding need for repair of quite significant inguinal hernia that impacts the patient's quality of life 06/13/2023 Patient may benefit from guardianship to make medical decisions Section [address] patient bizarre preoccupied Change Haldol to 10 mg bedtime 06/[address] hearing tomorrow. 06/14 risperidone 2mg po BID, back IM prolixin 5mg IM if pt refuses oral risperidone. Plan to do ADORNO of risperidone 06/15 continue tx. 06/16 continue tx. 06/17 add depakote 500mg po BID. prolixin 5mg po BID. 06/18 keep same treatment, encourage compliance. 06/19 keep same treatment 06/20 continue tx- plan for ADORNO this week 06/21 plan for ADORNO this week 06/22 continue tx. May try to change to prolixin as main antipsychotic. 06/23 give back IM if pt refuses either prolixin or risperidone. will try prolixin to be main antipsychotic as risperidone along only partially effective. 06/24 continue treatment plan 06/25: no changes 06/26: no changes 06/27: irritable, argumentative. 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 taking meds, no substantial behavioral concerns. 06/28: taking meds. much less irritable and labile than yesterday. more organized, asking when he might be able to discharge. continue current mgmt. denying penile pain, no need for further w/u presently (no UTI). 06/29: continues improved, taking meds. continue current mgmt. 06/30: refused morning VPA, wants all VPA at HS. aware this will mean ER formulation, large pills, would like to change nevertheless. remains improved from several days ago, focused on when he might be able to discharge. Reason for continued inpatient stay Substantial Risk for: inability to function and rapid decompensation Time Spent With Patient Time: Total time managing care of this patient today __25__ minutes.
[2023-07-01 18:00] VITALS: BP 118/52; PULSE 83; RESP 18; TEMP 36.8; O2SAT 99
[2023-07-01] MEDS: Divalproex Sodium ER 500 MG TAB.ER.24H 1000 MG PO (20:10)
[2023-07-01] MEDS: Tamsulosin HCL 0.4 MG CAPSULE PO (20:10)
[2023-07-01] MEDS: Atorvastatin Calcium 40 MG TABLET PO (20:10)
[2023-07-01] MEDS: hydrOXYzine HCL 25 MG TABLET PO (20:10)
[2023-07-02] MEDS: Levothyroxine Sodium 25 MCG TABLET PO (06:05)
[2023-07-02 08:00] VITALS: BP 120/70; PULSE 101; RESP 18; TEMP 36.6; O2SAT 99
[2023-07-02] MEDS: Loratadine 10 MG TABLET PO (08:13)
[2023-07-02] MEDS: fluPHENAZine HCl 5 MG TABLET PO ×2 (08:13→20:40)
[2023-07-02] MEDS: Magnesium Oxide 400 MG TABLET PO (08:13)
[2023-07-02] MEDS: Apixaban 5 MG TABLET PO ×2 (08:13→20:39)
[2023-07-02] MEDS: Ferrous Sulfate 324 MG TABLET.DR PO (08:13)
[2023-07-02] MEDS: risperiDONE 2 MG TABLET PO ×2 (08:13→20:40)
[2023-07-02] MEDS: Fluticasone/Umeclidinium/Vilanterol 100/62.5/25 BLST.W.DEV 1 PUFF INHALE (08:15)
[2023-07-02] MEDS: Divalproex Sodium ER 500 MG TAB.ER.24H 1000 MG PO (20:39)
[2023-07-02] MEDS: Tamsulosin HCL 0.4 MG CAPSULE PO (20:40)
[2023-07-02] MEDS: Atorvastatin Calcium 40 MG TABLET PO (20:40)
[2023-07-03] MEDS: Levothyroxine Sodium 25 MCG TABLET PO (05:01)
[2023-07-03 08:52] VITALS: BP 131/63; PULSE 101; RESP 16; TEMP 36.6; O2SAT 98
[2023-07-03] MEDS: Magnesium Oxide 400 MG TABLET PO ×2 (08:53→17:30)
[2023-07-03] MEDS: fluPHENAZine HCl 5 MG TABLET PO ×2 (08:53→20:16)
[2023-07-03] MEDS: Ferrous Sulfate 324 MG TABLET.DR PO (08:54)
[2023-07-03] MEDS: Fluticasone/Umeclidinium/Vilanterol 100/62.5/25 BLST.W.DEV 1 PUFF INHALE (08:54)
[2023-07-03] MEDS: Apixaban 5 MG TABLET PO ×2 (08:54→20:16)
[2023-07-03] MEDS: Loratadine 10 MG TABLET PO (08:54)
[2023-07-03] MEDS: risperiDONE 2 MG TABLET PO ×2 (08:54→20:16)
[2023-07-03 19:30] VITALS: BP 135/63; PULSE 84; RESP 17; TEMP 36.3; O2SAT 98
[2023-07-03] MEDS: Atorvastatin Calcium 40 MG TABLET PO (20:16)
[2023-07-03] MEDS: Divalproex Sodium ER 500 MG TAB.ER.24H 1000 MG PO (20:16)
[2023-07-03] MEDS: Tamsulosin HCL 0.4 MG CAPSULE PO (20:16)
--- NOTE | 2023-07-03 21:31 | HO.PSYCHPN ---
Subjective Subjective Date of Service: 07/03/23 Reason For Visit: Psychosis Interim History: Reviewed with nursing staff. reports patient is pleasant but remains delusional, grandiose. med complaint. Patient was seen eating his lunch. Appears unkempt. Withdrawn. Says he is doing okay , denies feeling unsafe on the unit but that it feels crowded . 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 Says he wants to get back to eating, though appears to be finished eating. Medication Compliance: Yes Side effects from medications: No Mental Status Exam Mental Status Exam Narrative: Casual clothing. Self-care limited. receptive and polite today. much more linear than 2 days prior. speech is slower than 2 days prior. Affect is constricted. No SI or HI or AVH expressed. Insight and judgment limited, but accepting of medications and treatment Diagnostics Vital Signs (24Hr): Vital Signs - 24 hr 07/03/23 08:52 07/03/23 19:30 Temperature 97.9 F 97.4 F Pulse Rate 101 H 84 Respiratory Rate 16 17 Blood Pressure 131/63 135/63 Pulse Oximetry 98 98 Oxygen Delivery Method Room Air Room Air BMI result Body Mass Index 25.4 Labs 06/04/23 02:14 06/04/23 02:14 Medications Medications Current Medications Acetaminophen (Acetaminophen 325 Mg Tablet) 650 mg PO Q6H PRN PRN Reason: Headache/Pain Mild Scale (1-3) Last Admin: 06/26/23 08:13 Dose: 650 mg Al Hydroxide/Mg Hydroxide (Magnesium Hydrox/Alum Hydrox 30 Ml Oral.Susp) 30 ml PO Q6H PRN PRN Reason: Heartburn/Nausea Albuterol Sulfate (Albuterol Sulfate 90 Mcg 8 Gm Inhaler) 1 puff INHALE RQ4H PRN PRN Reason: Wheezing/SOB Apixaban (Apixaban 5 Mg Tablet) 5 mg PO BID [facility] Last Admin: 07/03/23 20:16 Dose: 5 mg Atorvastatin Calcium (Atorvastatin Calcium 40 Mg Tablet) 40 mg PO BEDTIME [place] Last Admin: 07/03/23 20:16 Dose: 40 mg Divalproex Sodium (Divalproex Sodium Er 500 Mg Tab.Er.24h) 1,000 mg PO BEDTIME [place] Last Admin: 07/03/23 20:16 Dose: 1,000 mg Ferrous Sulfate (Ferrous Sulfate 324 Mg Tablet.Dr) 324 mg PO DAILY [place] Last Admin: 07/03/23 08:54 Dose: 324 mg Fluphenazine HCl (Fluphenazine Hcl 5 Mg Tablet) 5 mg PO BID [facility] Last Admin: 07/03/23 20:16 Dose: 5 mg Fluphenazine HCl (Fluphenazine Hcl 2.5 Mg/Ml 10 Ml Vial) 5 mg IM BID PRN PRN Reason: if refuses oral prolixin/rispe Fluticasone/Umeclidinium/Vilanterol (Fluticasone/Umeclidinium/Vilanterol 100/62.5/25 Blst.W.Dev) 1 puff INHALE RDAILY [facility] Last Admin: 07/03/23 08:54 Dose: 1 puff Hydroxyzine HCl (Hydroxyzine Hcl 25 Mg Tablet) 25 mg PO Q6H PRN PRN Reason: Anxiety Last Admin: 07/01/23 20:10 Dose: 25 mg Levothyroxine Sodium (Levothyroxine Sodium 25 Mcg Tablet) 25 mcg PO DAILY@0600 [facility] Last Admin: 07/03/23 05:01 Dose: 25 mcg Loratadine (Loratadine 10 Mg Tablet) 10 mg PO DAILY [facility] Last Admin: 07/03/23 08:54 Dose: 10 mg Magnesium Hydroxide (Milk Of Magnesia 30 Ml Oral.Susp) 30 ml PO DAILY PRN PRN Reason: Constipation Last Admin: 06/20/23 16:30 Dose: 30 ml Magnesium Oxide (Magnesium Oxide 400 Mg Tablet) 400 mg PO BIDPC [facility] Last Admin: 07/03/23 17:30 Dose: 400 mg Mupirocin (Mupirocin 2 % Oint 22 Gm Tube) 1 appl TOPICAL BID PRN; Protocol PRN Reason: scalp lesions Last Admin: 06/29/23 08:17 Dose: 1 appl Phenazopyridine HCl (Phenazopyridine Hcl 200 Mg Tablet) 200 mg PO TID PRN PRN Reason: dysuria Risperidone (Risperidone 2 Mg Tablet) 2 mg PO BID [facility] Last Admin: 07/03/23 20:16 Dose: 2 mg Tamsulosin HCl (Tamsulosin Hcl 0.4 Mg Capsule) 0.4 mg PO BEDTIME [facility] Last Admin: 07/03/23 20:16 Dose: 0.4 mg Allergies Allergies Allergy/AdvReac Type Severity Reaction Status Date / Time No Known Allergies Allergy Mild NOT Verified 06/03/23 18:57 APPLICABLE Assessment & Plan Assessment & Plan (1) Schizophrenia: Status: Acute Code(s): F20.9 - Schizophrenia, unspecified Plan Mr. Zaragoza is a 72 year-old male with hx of schizophrenia who was brought on a sect 12a due to pt exposing himself to the neighbors. Pt has been refusing medications at , becoming more agitated. On the unit, pt disorganized, refusing labs, selective about medications. PLAN 1. continue risperidone 2mg po BID. 2. filed sect 7/8. 06/11/2023 Patient not taking medication psychotic refusing medical care on section 7 may need to get abdominal CT scan patient recently had nausea vomiting seems to be somewhat better today concerns regarding incarcerated hernia patient not able to make medical decisions at this time refusing lab 06/12/2023 Somewhat more cooperative today did take 1 dose of Haldol encourage medication labs and vital signs no acute abdominal pain patient may need eventual guardianship for clarity regarding need for repair of quite significant inguinal hernia that impacts the patient's quality of life 06/13/2023 Patient may benefit from guardianship to make medical decisions Section [address] patient bizarre preoccupied Change Haldol to 10 mg bedtime 06/[address] hearing tomorrow. 06/14 risperidone 2mg po BID, back IM prolixin 5mg IM if pt refuses oral risperidone. Plan to do ADORNO of risperidone 06/15 continue tx. 06/16 continue tx. 06/17 add depakote 500mg po BID. prolixin 5mg po BID. 06/18 keep same treatment, encourage compliance. 06/19 keep same treatment 06/20 continue tx- plan for ADORNO this week 06/21 plan for ADORNO this week 06/22 continue tx. May try to change to prolixin as main antipsychotic. 06/23 give back IM if pt refuses either prolixin or risperidone. will try prolixin to be main antipsychotic as risperidone along only partially effective. 06/24 continue treatment plan 06/25: no changes 06/26: no changes 06/27: irritable, argumentative. 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 taking meds, no substantial behavioral concerns. 06/28: taking meds. much less irritable and labile than yesterday. more organized, asking when he might be able to discharge. continue current mgmt. denying penile pain, no need for further w/u presently (no UTI). 06/29: continues improved, taking meds. continue current mgmt. 06/30: refused morning VPA, wants all VPA at HS. aware this will mean ER formulation, large pills, would like to change nevertheless. remains improved from several days ago, focused on when he might be able to discharge. Reason for continued inpatient stay Substantial Risk for: inability to function, rapid decompensation and med/psych decompensation Time Spent With Patient Time: Total time managing care of this patient today ____ minutes.
[2023-07-04] MEDS: Levothyroxine Sodium 25 MCG TABLET PO (06:01)
[2023-07-04 09:55] VITALS: BP 126/60; PULSE 86; RESP 18; TEMP 35.6; O2SAT 98
[2023-07-04] MEDS: Fluticasone/Umeclidinium/Vilanterol 100/62.5/25 BLST.W.DEV 1 PUFF INHALE (09:57)
[2023-07-04] MEDS: Magnesium Oxide 400 MG TABLET PO (09:58)
[2023-07-04] MEDS: fluPHENAZine HCl 5 MG TABLET PO ×2 (09:58→20:27)
[2023-07-04] MEDS: Loratadine 10 MG TABLET PO (09:58)
[2023-07-04] MEDS: Ferrous Sulfate 324 MG TABLET.DR PO (09:58)
[2023-07-04] MEDS: Apixaban 5 MG TABLET PO ×2 (09:58→20:27)
[2023-07-04] MEDS: risperiDONE 2 MG TABLET PO ×2 (09:58→20:27)
[2023-07-04 18:00] VITALS: BP 122/66; PULSE 86; RESP 18; TEMP 36.3; O2SAT 96
[2023-07-04] MEDS: Atorvastatin Calcium 40 MG TABLET PO (20:27)
[2023-07-04] MEDS: Divalproex Sodium ER 500 MG TAB.ER.24H 1000 MG PO (20:27)
[2023-07-04] MEDS: Tamsulosin HCL 0.4 MG CAPSULE PO (20:27)
--- NOTE | 2023-07-04 23:34 | P.PNPSI_ITS ---
Subjective Subjective Date of Service: 07/04/23 Reason For Visit: Psychosis Interim History: Met with patient in his room sitting on his bed. Continues to be disheveled, clothes mildly soiled. He was notably more irritable today. He initially ignored me. When asked about his mood he responded I dont know what to tell you ...I dont want to get into it . He had a book on his bedside [employer], [employer], however he was difficult to engage in discussion on any topic. He asked Are you Dr. Farmer ? He says there was some lady told me I would meet with a Dr. Farmer in 2 or 3 days . He asked if I knew when he was going to be discharged. 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 and turned away Review of Systems Review of Systems Unremarkable Yes Unobtainable due to mental status and Other ( Dementia) Mental Status Exam Mental Status Exam Narrative: Casual clothing. Self-care limited. receptive and polite today. much more linear than 2 days prior. speech is slower than 2 days prior. Affect is constricted. No SI or HI or AVH expressed. 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 Insight/jdugment: impaired x 2. memory/cog: alert, not oriented to situation. Mood Description: Withdrawn Affect Description: Constricted Patient Cognition Impaired: Yes Ability to Follow Directions: Good Speech Pattern: Clear Diagnostics Vital Signs (24Hr): Vital Signs - 24 hr 07/04/23 09:55 07/04/23 18:00 Temperature 96.0 F L 97.3 F Pulse Rate 86 86 Respiratory Rate 18 18 Blood Pressure 126/60 122/66 Pulse Oximetry 98 96 Oxygen Delivery Method Room Air Room Air BMI result Body Mass Index 25.4 Labs 06/04/23 02:14 06/04/23 02:14 Medications Medications Current Medications Acetaminophen (Acetaminophen 325 Mg Tablet) 650 mg PO Q6H PRN PRN Reason: Headache/Pain Mild Scale (1-3) Last Admin: 06/26/23 08:13 Dose: 650 mg Al Hydroxide/Mg Hydroxide (Magnesium Hydrox/Alum Hydrox 30 Ml Oral.Susp) 30 ml PO Q6H PRN PRN Reason: Heartburn/Nausea Albuterol Sulfate (Albuterol Sulfate 90 Mcg 8 Gm Inhaler) 1 puff INHALE RQ4H PRN PRN Reason: Wheezing/SOB Apixaban (Apixaban 5 Mg Tablet) 5 mg PO BID [facility] Last Admin: 07/04/23 20:27 Dose: 5 mg Atorvastatin Calcium (Atorvastatin Calcium 40 Mg Tablet) 40 mg PO BEDTIME [facility] Last Admin: 07/04/23 20:27 Dose: 40 mg Divalproex Sodium (Divalproex Sodium Er 500 Mg Tab.Er.24h) 1,000 mg PO BEDTIME [facility] Last Admin: 07/04/23 20:27 Dose: 1,000 mg Ferrous Sulfate (Ferrous Sulfate 324 Mg Tablet.Dr) 324 mg PO DAILY [facility] Last Admin: 07/04/23 09:58 Dose: 324 mg Fluphenazine HCl (Fluphenazine Hcl 5 Mg Tablet) 5 mg PO BID [facility] Last Admin: 07/04/23 20:27 Dose: 5 mg Fluphenazine HCl (Fluphenazine Hcl 2.5 Mg/Ml 10 Ml Vial) 5 mg IM BID PRN PRN Reason: if refuses oral prolixin/rispe Fluticasone/Umeclidinium/Vilanterol (Fluticasone/Umeclidinium/Vilanterol 100/62.5/25 Blst.W.Dev) 1 puff INHALE RDAILY [facility] Last Admin: 07/04/23 09:57 Dose: 1 puff Hydroxyzine HCl (Hydroxyzine Hcl 25 Mg Tablet) 25 mg PO Q6H PRN PRN Reason: Anxiety Last Admin: 07/01/23 20:10 Dose: 25 mg Levothyroxine Sodium (Levothyroxine Sodium 25 Mcg Tablet) 25 mcg PO DAILY@0600 [facility] Last Admin: 07/04/23 06:01 Dose: 25 mcg Loratadine (Loratadine 10 Mg Tablet) 10 mg PO DAILY [facility] Last Admin: 07/04/23 09:58 Dose: 10 mg Magnesium Hydroxide (Milk Of Magnesia 30 Ml Oral.Susp) 30 ml PO DAILY PRN PRN Reason: Constipation Last Admin: 06/20/23 16:30 Dose: 30 ml Magnesium Oxide (Magnesium Oxide 400 Mg Tablet) 400 mg PO BIDPC [facility] Last Admin: 07/04/23 18:37 Dose: Not Given Mupirocin (Mupirocin 2 % Oint 22 Gm Tube) 1 appl TOPICAL BID PRN; Protocol PRN Reason: scalp lesions Last Admin: 06/29/23 08:17 Dose: 1 appl Phenazopyridine HCl (Phenazopyridine Hcl 200 Mg Tablet) 200 mg PO TID PRN PRN Reason: dysuria Risperidone (Risperidone 2 Mg Tablet) 2 mg PO BID [facility] Last Admin: 07/04/23 20:27 Dose: 2 mg Tamsulosin HCl (Tamsulosin Hcl 0.4 Mg Capsule) 0.4 mg PO BEDTIME [facility] Last Admin: 07/04/23 20:27 Dose: 0.4 mg Allergies Allergies Allergy/AdvReac Type Severity Reaction Status Date / Time No Known Allergies Allergy Mild NOT Verified 06/03/23 18:57 APPLICABLE Assessment & Plan Assessment & Plan (1) Schizophrenia: Status: Acute Code(s): F20.9 - Schizophrenia, unspecified Plan Mr. Zaragoza is a 72 year-old male with hx of schizophrenia who was brought on a sect 12a due to pt exposing himself to the neighbors. Pt has been refusing medications at , becoming more agitated. On the unit, pt disorganized, refusing labs, selective about medications. PLAN 1. continue risperidone 2mg po BID. 2. filed sect 7/8. 06/11/2023 Patient not taking medication psychotic refusing medical care on section 7 may need to get abdominal CT scan patient recently had nausea vomiting seems to be somewhat better today concerns regarding incarcerated hernia patient not able to make medical decisions at this time refusing lab 06/12/2023 Somewhat more cooperative today did take 1 dose of Haldol encourage medication labs and vital signs no acute abdominal pain patient may need eventual guardianship for clarity regarding need for repair of quite significant inguinal hernia that impacts the patient's quality of life 06/13/2023 Patient may benefit from guardianship to make medical decisions Section [address] patient bizarre preoccupied Change Haldol to 10 mg bedtime 06/[address] hearing tomorrow. 06/14 risperidone 2mg po BID, back IM prolixin 5mg IM if pt refuses oral risperidone. Plan to do ADORNO of risperidone 06/15 continue tx. 06/16 continue tx. 06/17 add depakote 500mg po BID. prolixin 5mg po BID. 06/18 keep same treatment, encourage compliance. 06/19 keep same treatment 06/20 continue tx- plan for ADORNO this week 06/21 plan for ADORNO this week 06/22 continue tx. May try to change to prolixin as main antipsychotic. 06/23 give back IM if pt refuses either prolixin or risperidone. will try prolixin to be main antipsychotic as risperidone along only partially effective. 06/24 continue treatment plan 06/25: no changes 06/26: no changes 06/27: irritable, argumentative. states he has an appeal hearing scheduled, redirected to speak with his program management analyst. taking meds, no substantial behavioral concerns. 06/28: taking meds. much less irritable and labile than yesterday. more organized, asking when he might be able to discharge. continue current mgmt. denying penile pain, no need for further w/u presently (no UTI). 06/29: continues improved, taking meds. continue current mgmt. 06/30: refused morning VPA, wants all VPA at HS. aware this will mean ER formulation, large pills, would like to change nevertheless. remains improved from several days ago, focused on when he might be able to discharge. Reason for continued inpatient stay Substantial Risk for: inability to function, rapid decompensation and med/psych decompensation Time Spent With Patient Time: Total time managing care of this patient today ____ minutes.
[2023-07-05] MEDS: Levothyroxine Sodium 25 MCG TABLET PO (05:43)
--- NOTE | 2023-07-05 08:25 | HO.PSYCHPN ---
Subjective Subjective Date of Service: 07/05/23 Reason For Visit: Psychosis Subjective Notes: Section 8 Interim History: Pt slept through the night and he is taking medications as prescribed. Pt reports that he was not trying to expose himself to people in th community. He reports he is taking his medications and that he is confused that his OP provider told him warfarin was a psychotropic med. He was explained it is for his afib, and that he is now on eliquis so there is no need for blood work regularly. No behavioral concerns. He presents as calmer, more cooperative. Review of Systems Review of Systems Unremarkable Yes Unobtainable due to mental status and Other ( Dementia) Diagnostics Vital Signs (24Hr): Vital Signs - 24 hr 07/04/23 09:55 07/04/23 18:00 Temperature 96.0 F L 97.3 F Pulse Rate 86 86 Respiratory Rate 18 18 Blood Pressure 126/60 122/66 Pulse Oximetry 98 96 Oxygen Delivery Method Room Air Room Air BMI result Body Mass Index 25.4 Labs 06/04/23 02:14 06/04/23 02:14 Medications Medications Current Medications Acetaminophen (Acetaminophen 325 Mg Tablet) 650 mg PO Q6H PRN PRN Reason: Headache/Pain Mild Scale (1-3) Last Admin: 06/26/23 08:13 Dose: 650 mg Al Hydroxide/Mg Hydroxide (Magnesium Hydrox/Alum Hydrox 30 Ml Oral.Susp) 30 ml PO Q6H PRN PRN Reason: Heartburn/Nausea Albuterol Sulfate (Albuterol Sulfate 90 Mcg 8 Gm Inhaler) 1 puff INHALE RQ4H PRN PRN Reason: Wheezing/SOB Apixaban (Apixaban 5 Mg Tablet) 5 mg PO BID [facility] Last Admin: 07/04/23 20:27 Dose: 5 mg Atorvastatin Calcium (Atorvastatin Calcium 40 Mg Tablet) 40 mg PO BEDTIME [facility] Last Admin: 07/04/23 20:27 Dose: 40 mg Divalproex Sodium (Divalproex Sodium Er 500 Mg Tab.Er.24h) 1,000 mg PO BEDTIME [facility] Last Admin: 07/04/23 20:27 Dose: 1,000 mg Ferrous Sulfate (Ferrous Sulfate 324 Mg Tablet.) 324 mg PO DAILY [facility] Last Admin: 07/04/23 09:58 Dose: 324 mg Fluphenazine HCl (Fluphenazine Hcl 5 Mg Tablet) 5 mg PO BID [facility] Last Admin: 07/04/23 20:27 Dose: 5 mg Fluphenazine HCl (Fluphenazine Hcl 2.5 Mg/Ml 10 Ml Vial) 5 mg IM BID PRN PRN Reason: if refuses oral prolixin/rispe Fluticasone/Umeclidinium/Vilanterol (Fluticasone/Umeclidinium/Vilanterol 100/62.5/25 Blst.W.Dev) 1 puff INHALE RDAILY [facility] Last Admin: 07/04/23 09:57 Dose: 1 puff Hydroxyzine HCl (Hydroxyzine Hcl 25 Mg Tablet) 25 mg PO Q6H PRN PRN Reason: Anxiety Last Admin: 07/01/23 20:10 Dose: 25 mg Levothyroxine Sodium (Levothyroxine Sodium 25 Mcg Tablet) 25 mcg PO DAILY@0600 [facility] Last Admin: 07/05/23 05:43 Dose: 25 mcg Loratadine (Loratadine 10 Mg Tablet) 10 mg PO DAILY [facility] Last Admin: 07/04/23 09:58 Dose: 10 mg Magnesium Hydroxide (Milk Of Magnesia 30 Ml Oral.Susp) 30 ml PO DAILY PRN PRN Reason: Constipation Last Admin: 06/20/23 16:30 Dose: 30 ml Magnesium Oxide (Magnesium Oxide 400 Mg Tablet) 400 mg PO BIDPC [facility] Last Admin: 07/04/23 18:37 Dose: Not Given Mupirocin (Mupirocin 2 % Oint 22 Gm Tube) 1 appl TOPICAL BID PRN; Protocol PRN Reason: scalp lesions Last Admin: 06/29/23 08:17 Dose: 1 appl Phenazopyridine HCl (Phenazopyridine Hcl 200 Mg Tablet) 200 mg PO TID PRN PRN Reason: dysuria Risperidone (Risperidone 2 Mg Tablet) 2 mg PO BID [facility] Last Admin: 07/04/23 20:27 Dose: 2 mg Tamsulosin HCl (Tamsulosin Hcl 0.4 Mg Capsule) 0.4 mg PO BEDTIME [facility] Last Admin: 07/04/23 20:27 Dose: 0.4 mg Allergies Allergies Allergy/AdvReac Type Severity Reaction Status Date / Time No Known Allergies Allergy Mild NOT Verified 06/03/23 18:57 APPLICABLE Assessment & Plan Assessment & Plan (1) Schizophrenia: Status: Acute Code(s): F20.9 - Schizophrenia, unspecified Plan Mr. Zaragoza is a 72 year-old male with hx of schizophrenia who was brought on a sect 12a due to pt exposing himself to the neighbors. Pt has been refusing medications at , becoming more agitated. On the unit, pt disorganized, refusing labs, selective about medications. PLAN 1. continue risperidone 2mg po BID. 2. filed sect 09/26. 06/11/2023 Patient not taking medication psychotic refusing medical care on section 7 may need to get abdominal CT scan patient recently had nausea vomiting seems to be somewhat better today concerns regarding incarcerated hernia patient not able to make medical decisions at this time refusing lab 06/12/2023 Somewhat more cooperative today did take 1 dose of Haldol encourage medication labs and vital signs no acute abdominal pain patient may need eventual guardianship for clarity regarding need for repair of quite significant inguinal hernia that impacts the patient's quality of life 06/13/2023 Patient may benefit from guardianship to make medical decisions Section [address] patient bizarre preoccupied Change Haldol to 10 mg bedtime 06/[address] hearing tomorrow. 06/14 risperidone 2mg po BID, back IM prolixin 5mg IM if pt refuses oral risperidone. Plan to do ADORNO of risperidone 06/15 continue tx. 06/16 continue tx. 06/17 add depakote 500mg po BID. prolixin 5mg po BID. 06/18 keep same treatment, encourage compliance. 06/19 keep same treatment 06/20 continue tx- plan for ADORNO this week 06/21 plan for ADORNO this week 06/22 continue tx. May try to change to prolixin as main antipsychotic. 06/23 give back IM if pt refuses either prolixin or risperidone. will try prolixin to be main antipsychotic as risperidone along only partially effective. 06/24 continue treatment plan 06/25: no changes 06/26: no changes 06/27: irritable, argumentative. states he has an appeal hearing scheduled, redirected to speak with his marketing assistant retail division. taking meds, no substantial behavioral concerns. 06/28: taking meds. much less irritable and labile than yesterday. more organized, asking when he might be able to discharge. continue current mgmt. denying penile pain, no need for further w/u presently (no UTI). 06/29: continues improved, taking meds. continue current mgmt. 06/30: refused morning VPA, wants all VPA at HS. aware this will mean ER formulation, large pills, would like to change nevertheless. remains improved from several days ago, focused on when he might be able to discharge. 07/04 continue tx. will plan to do ADORNO. Reason for continued inpatient stay Substantial Risk for: inability to function Time Spent With Patient Time: Total time managing care of this patient today ____ minutes.
[2023-07-05 10:21] VITALS: BP 102/57; PULSE 87; RESP 16; TEMP 36.3; O2SAT 99
[2023-07-05] MEDS: Fluticasone/Umeclidinium/Vilanterol 100/62.5/25 BLST.W.DEV 1 PUFF INHALE (10:24)
[2023-07-05] MEDS: Ferrous Sulfate 324 MG TABLET.DR PO (10:25)
[2023-07-05] MEDS: Loratadine 10 MG TABLET PO (10:25)
[2023-07-05] MEDS: risperiDONE 2 MG TABLET PO ×2 (10:25→20:30)
[2023-07-05] MEDS: Magnesium Oxide 400 MG TABLET PO (10:25)
[2023-07-05] MEDS: fluPHENAZine HCl 5 MG TABLET PO ×2 (10:25→20:30)
[2023-07-05] MEDS: Apixaban 5 MG TABLET PO ×2 (10:25→20:30)
[2023-07-05 18:00] VITALS: BP 130/58; PULSE 62; RESP 18; TEMP 36.5; O2SAT 95
[2023-07-05] MEDS: Tamsulosin HCL 0.4 MG CAPSULE PO (20:29)
[2023-07-05] MEDS: Divalproex Sodium ER 500 MG TAB.ER.24H 1000 MG PO (20:29)
[2023-07-05] MEDS: Atorvastatin Calcium 40 MG TABLET PO (20:30)
[2023-07-05] MEDS: hydrOXYzine HCL 25 MG TABLET PO (20:30)
[2023-07-06] MEDS: Levothyroxine Sodium 25 MCG TABLET PO (06:27)
[2023-07-06 09:17] VITALS: BP 116/79; PULSE 87; RESP 17; TEMP 36.2; O2SAT 98
[2023-07-06] MEDS: Loratadine 10 MG TABLET PO (09:19)
[2023-07-06] MEDS: Magnesium Oxide 400 MG TABLET PO ×2 (09:19→17:18)
[2023-07-06] MEDS: fluPHENAZine HCl 5 MG TABLET PO ×2 (09:19→21:29)
[2023-07-06] MEDS: risperiDONE 2 MG TABLET PO ×2 (09:19→21:29)
[2023-07-06] MEDS: Apixaban 5 MG TABLET PO ×2 (09:19→21:28)
[2023-07-06] MEDS: Ferrous Sulfate 324 MG TABLET.DR PO (09:19)
[2023-07-06] MEDS: Fluticasone/Umeclidinium/Vilanterol 100/62.5/25 BLST.W.DEV 1 PUFF INHALE (09:20)
--- NOTE | 2023-07-06 10:08 | P.PNPSI_ITS ---
Subjective Subjective Date of Service: 07/06/23 Reason For Visit: Psychosis Subjective Notes: Section 8 Interim History: Pt slept most of the night. He is taking medications more consistently including medical medications. He apologizes for dropping his pants prior to coming to the hospital and explains that his intent was not to expose himself. He asks about discharge and whether it is going to take several months or not. No behavioral concerns. We discussed dc in this week or next and plan to start coordinating with . 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 Insight/jdugment: impaired x 2. memory/cog: alert, not oriented to situation. Mood Description: Withdrawn Affect Description: Constricted Patient Cognition Impaired: Yes Ability to Follow Directions: Good Speech Pattern: Clear Diagnostics Vital Signs (24Hr): Vital Signs - 24 hr 07/05/23 10:21 07/05/23 18:00 07/06/23 09:17 Temperature 97.3 F 97.7 F 97.1 F Pulse Rate 87 62 87 Respiratory Rate 16 18 17 Blood Pressure 102/57 L 130/58 L 116/79 Pulse Oximetry 99 95 98 Oxygen Delivery Method Room Air Room Air Room Air BMI result Body Mass Index 25.4 Labs 06/04/23 02:14 06/04/23 02:14 Medications Medications Current Medications Acetaminophen (Acetaminophen 325 Mg Tablet) 650 mg PO Q6H PRN PRN Reason: Headache/Pain Mild Scale (1-3) Last Admin: 06/26/23 08:13 Dose: 650 mg Al Hydroxide/Mg Hydroxide (Magnesium Hydrox/Alum Hydrox 30 Ml Oral.Susp) 30 ml PO Q6H PRN PRN Reason: Heartburn/Nausea Albuterol Sulfate (Albuterol Sulfate 90 Mcg 8 Gm Inhaler) 1 puff INHALE RQ4H PRN PRN Reason: Wheezing/SOB Apixaban (Apixaban 5 Mg Tablet) 5 mg PO BID [facility] Last Admin: 07/06/23 09:19 Dose: 5 mg Atorvastatin Calcium (Atorvastatin Calcium 40 Mg Tablet) 40 mg PO BEDTIME [facility] Last Admin: 07/05/23 20:30 Dose: 40 mg Divalproex Sodium (Divalproex Sodium Er 500 Mg Tab.Er.24h) 1,000 mg PO BEDTIME [facility] Last Admin: 07/05/23 20:29 Dose: 1,000 mg Ferrous Sulfate (Ferrous Sulfate 324 Mg Tablet.Dr) 324 mg PO DAILY [facility] Last Admin: 07/06/23 09:19 Dose: 324 mg Fluphenazine HCl (Fluphenazine Hcl 5 Mg Tablet) 5 mg PO BID [facility] Last Admin: 07/06/23 09:19 Dose: 5 mg Fluphenazine HCl (Fluphenazine Hcl 2.5 Mg/Ml 10 Ml Vial) 5 mg IM BID PRN PRN Reason: if refuses oral prolixin/rispe Fluticasone/Umeclidinium/Vilanterol (Fluticasone/Umeclidinium/Vilanterol 100/62.5/25 Blst.W.Dev) 1 puff INHALE RDAILY [facility] Last Admin: 07/06/23 09:20 Dose: 1 puff Hydroxyzine HCl (Hydroxyzine Hcl 25 Mg Tablet) 25 mg PO Q6H PRN PRN Reason: Anxiety Last Admin: 07/05/23 20:30 Dose: 25 mg Levothyroxine Sodium (Levothyroxine Sodium 25 Mcg Tablet) 25 mcg PO DAILY@0600 [facility] Last Admin: 07/06/23 06:27 Dose: 25 mcg Loratadine (Loratadine 10 Mg Tablet) 10 mg PO DAILY [facility] Last Admin: 07/06/23 09:19 Dose: 10 mg Magnesium Hydroxide (Milk Of Magnesia 30 Ml Oral.Susp) 30 ml PO DAILY PRN PRN Reason: Constipation Last Admin: 06/20/23 16:30 Dose: 30 ml Magnesium Oxide (Magnesium Oxide 400 Mg Tablet) 400 mg PO BIDPC [facility] Last Admin: 07/06/23 09:19 Dose: 400 mg Mupirocin (Mupirocin 2 % Oint 22 Gm Tube) 1 appl TOPICAL BID PRN; Protocol PRN Reason: scalp lesions Last Admin: 06/29/23 08:17 Dose: 1 appl Phenazopyridine HCl (Phenazopyridine Hcl 200 Mg Tablet) 200 mg PO TID PRN PRN Reason: dysuria Risperidone (Risperidone 2 Mg Tablet) 2 mg PO BID [facility] Last Admin: 07/06/23 09:19 Dose: 2 mg Tamsulosin HCl (Tamsulosin Hcl 0.4 Mg Capsule) 0.4 mg PO BEDTIME [facility] Last Admin: 07/05/23 20:29 Dose: 0.4 mg Allergies Allergies Allergy/AdvReac Type Severity Reaction Status Date / Time No Known Allergies Allergy Mild NOT Verified 06/03/23 18:57 APPLICABLE Assessment & Plan Assessment & Plan (1) Schizophrenia: Status: Acute Code(s): F20.9 - Schizophrenia, unspecified Plan Mr. Zaragoza is a 72 year-old male with hx of schizophrenia who was brought on a sect 12a due to pt exposing himself to the neighbors. Pt has been refusing medications at , becoming more agitated. On the unit, pt disorganized, refusing labs, selective about medications. PLAN 1. continue risperidone 2mg po BID. 2. filed sect 7/8. 06/11/2023 Patient not taking medication psychotic refusing medical care on section 7 may need to get abdominal CT scan patient recently had nausea vomiting seems to be somewhat better today concerns regarding incarcerated hernia patient not able to make medical decisions at this time refusing lab 06/12/2023 Somewhat more cooperative today did take 1 dose of Haldol encourage medication labs and vital signs no acute abdominal pain patient may need eventual guardianship for clarity regarding need for repair of quite significant inguinal hernia that impacts the patient's quality of life 06/13/2023 Patient may benefit from guardianship to make medical decisions Section [address] patient bizarre preoccupied Change Haldol to 10 mg bedtime 06/[address] hearing tomorrow. 06/14 risperidone 2mg po BID, back IM prolixin 5mg IM if pt refuses oral risperidone. Plan to do ADORNO of risperidone 06/15 continue tx. 06/16 continue tx. 06/17 add depakote 500mg po BID. prolixin 5mg po BID. 06/18 keep same treatment, encourage compliance. 06/19 keep same treatment 06/20 continue tx- plan for ADORNO this week 06/21 plan for ADORNO this week 06/22 continue tx. May try to change to prolixin as main antipsychotic. 06/23 give back IM if pt refuses either prolixin or risperidone. will try prolixin to be main antipsychotic as risperidone along only partially effective. 06/24 continue treatment plan 06/25: no changes 06/26: no changes 06/27: irritable, argumentative. states he has an appeal hearing scheduled, redirected to speak with his hyperion essbase developer. taking meds, no substantial behavioral concerns. 06/28: taking meds. much less irritable and labile than yesterday. more organized, asking when he might be able to discharge. continue current mgmt. denying penile pain, no need for further w/u presently (no UTI). 06/29: continues improved, taking meds. continue current mgmt. 06/30: refused morning VPA, wants all VPA at HS. aware this will mean ER formulation, large pills, would like to change nevertheless. remains improved from several days ago, focused on when he might be able to discharge. 07/05 continue tx. Reason for continued inpatient stay Substantial Risk for: inability to function Time Spent With Patient Time: Total time managing care of this patient today ____ minutes.
[2023-07-06 18:00] VITALS: BP 153/69; PULSE 87; RESP 18; TEMP 36.4; O2SAT 97
[2023-07-06] MEDS: Atorvastatin Calcium 40 MG TABLET PO (21:28)
[2023-07-06] MEDS: Divalproex Sodium ER 500 MG TAB.ER.24H 1000 MG PO (21:28)
[2023-07-06] MEDS: Tamsulosin HCL 0.4 MG CAPSULE PO (21:29)
[2023-07-07] MEDS: Levothyroxine Sodium 25 MCG TABLET PO (05:25)
[2023-07-07 08:00] VITALS: BP 105/57; PULSE 86; RESP 18; TEMP 36.4; O2SAT 98
[2023-07-07] MEDS: Ferrous Sulfate 324 MG TABLET.DR PO (08:35)
[2023-07-07] MEDS: Apixaban 5 MG TABLET PO ×2 (08:35→21:14)
[2023-07-07] MEDS: fluPHENAZine HCl 5 MG TABLET PO ×2 (08:35→21:14)
[2023-07-07] MEDS: Fluticasone/Umeclidinium/Vilanterol 100/62.5/25 BLST.W.DEV 1 PUFF INHALE (08:35)
[2023-07-07] MEDS: Loratadine 10 MG TABLET PO (08:35)
[2023-07-07] MEDS: Magnesium Oxide 400 MG TABLET PO ×2 (08:35→17:39)
[2023-07-07] MEDS: risperiDONE 2 MG TABLET PO ×2 (08:35→21:15)
--- NOTE | 2023-07-07 16:46 | P.PNPSI_ITS ---
Subjective Subjective Date of Service: 07/07/23 Reason For Visit: Psychosis Subjective Notes: Conditional Voluntary Interim History: Pt slept most of the night. He is taking medications more consistently including medical medications. He asks appropriate questions about treatment and discharged although insight in terms of mental illness and need for ongoing treated is very limited. He presents as much less paranoid. no behavioral concerns. Medication Compliance: Yes Side effects from medications: Yes (mild bilat tremors) Attending Groups: No Review of Systems Review of Systems Unremarkable Yes Unobtainable due to mental status and Other ( Dementia) Mental Status Exam Mental Status Exam Patient Appearance: Appropriate Patient Orientation: Person Level of Consciousness: Awake Patient Behavior: Guarded and Passive Behavior Comments: Appearance: thin, disheveled, malodorous, in NAD Behavior: guarded and irritable Psychomotor: some agitation when told he can't leave Speech: mostly unintelligible, mumbles at times, spontaneous TP: disorganized 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 Insight/jdugment: impaired x 2. memory/cog: alert, not oriented to situation. Mood Description: Withdrawn Affect Description: Constricted Patient Cognition Impaired: Yes Ability to Follow Directions: Good Speech Pattern: Clear Diagnostics Vital Signs (24Hr): Vital Signs - 24 hr 07/06/23 18:00 07/07/23 08:00 Temperature 97.5 F 97.6 F Pulse Rate 87 86 Respiratory Rate 18 18 Blood Pressure 153/69 H 105/57 L Pulse Oximetry 97 98 Oxygen Delivery Method Room Air Room Air BMI result Body Mass Index 25.4 Labs 06/04/23 02:14 06/04/23 02:14 Medications Medications Current Medications Acetaminophen (Acetaminophen 325 Mg Tablet) 650 mg PO Q6H PRN PRN Reason: Headache/Pain Mild Scale (1-3) Last Admin: 06/26/23 08:13 Dose: 650 mg Al Hydroxide/Mg Hydroxide (Magnesium Hydrox/Alum Hydrox 30 Ml Oral.Susp) 30 ml PO Q6H PRN PRN Reason: Heartburn/Nausea Albuterol Sulfate (Albuterol Sulfate 90 Mcg 8 Gm Inhaler) 1 puff INHALE RQ4H PRN PRN Reason: Wheezing/SOB Apixaban (Apixaban 5 Mg Tablet) 5 mg PO BID [facility] Last Admin: 07/07/23 08:35 Dose: 5 mg Atorvastatin Calcium (Atorvastatin Calcium 40 Mg Tablet) 40 mg PO BEDTIME [facility] Last Admin: 07/06/23 21:28 Dose: 40 mg Divalproex Sodium (Divalproex Sodium Er 500 Mg Tab.Er.24h) 1,000 mg PO BEDTIME [facility] Last Admin: 07/06/23 21:28 Dose: 1,000 mg Ferrous Sulfate (Ferrous Sulfate 324 Mg Tablet.Dr) 324 mg PO DAILY [facility] Last Admin: 07/07/23 08:35 Dose: 324 mg Fluphenazine Decanoate (Fluphenazine Decanoate 25 Mg/Ml 5 Ml Vial) 25 mg IM Q28D [facility] Fluphenazine HCl (Fluphenazine Hcl 5 Mg Tablet) 5 mg PO BID [facility] Last Admin: 07/07/23 08:35 Dose: 5 mg Fluphenazine HCl (Fluphenazine Hcl 2.5 Mg/Ml 10 Ml Vial) 5 mg IM BID PRN PRN Reason: if refuses oral prolixin/rispe Fluticasone/Umeclidinium/Vilanterol (Fluticasone/Umeclidinium/Vilanterol 100/62.5/25 Blst.W.Dev) 1 puff INHALE RDAILY [facility] Last Admin: 07/07/23 08:35 Dose: 1 puff Hydroxyzine HCl (Hydroxyzine Hcl 25 Mg Tablet) 25 mg PO Q6H PRN PRN Reason: Anxiety Last Admin: 07/05/23 20:30 Dose: 25 mg Levothyroxine Sodium (Levothyroxine Sodium 25 Mcg Tablet) 25 mcg PO DAILY@0600 [facility] Last Admin: 07/07/23 05:25 Dose: 25 mcg Loratadine (Loratadine 10 Mg Tablet) 10 mg PO DAILY [facility] Last Admin: 07/07/23 08:35 Dose: 10 mg Magnesium Hydroxide (Milk Of Magnesia 30 Ml Oral.Susp) 30 ml PO DAILY PRN PRN Reason: Constipation Last Admin: 06/20/23 16:30 Dose: 30 ml Magnesium Oxide (Magnesium Oxide 400 Mg Tablet) 400 mg PO BIDPC [facility] Last Admin: 07/07/23 08:35 Dose: 400 mg Mupirocin (Mupirocin 2 % Oint 22 Gm Tube) 1 appl TOPICAL BID PRN; Protocol PRN Reason: scalp lesions Last Admin: 06/29/23 08:17 Dose: 1 appl Phenazopyridine HCl (Phenazopyridine Hcl 200 Mg Tablet) 200 mg PO TID PRN PRN Reason: dysuria Risperidone (Risperidone 2 Mg Tablet) 2 mg PO BID [facility] Last Admin: 07/07/23 08:35 Dose: 2 mg Tamsulosin HCl (Tamsulosin Hcl 0.4 Mg Capsule) 0.4 mg PO BEDTIME [facility] Last Admin: 07/06/23 21:29 Dose: 0.4 mg Allergies Allergies Allergy/AdvReac Type Severity Reaction Status Date / Time No Known Allergies Allergy Mild NOT Verified 06/03/23 18:57 APPLICABLE Assessment & Plan Assessment & Plan (1) Schizophrenia: Status: Acute Code(s): F20.9 - Schizophrenia, unspecified Plan Mr. Zaragoza is a 72 year-old male with hx of schizophrenia who was brought on a sect 12a due to pt exposing himself to the neighbors. Pt has been refusing medications at , becoming more agitated. On the unit, pt disorganized, refusing labs, selective about medications. PLAN 1. continue risperidone 2mg po BID. 2. filed sect 7/8. 06/11/2023 Patient not taking medication psychotic refusing medical care on section 7 may need to get abdominal CT scan patient recently had nausea vomiting seems to be somewhat better today concerns regarding incarcerated hernia patient not able to make medical decisions at this time refusing lab 06/12/2023 Somewhat more cooperative today did take 1 dose of Haldol encourage medication labs and vital signs no acute abdominal pain patient may need eventual guardianship for clarity regarding need for repair of quite significant inguinal hernia that impacts the patient's quality of life 06/13/2023 Patient may benefit from guardianship to make medical decisions Section [address] patient bizarre preoccupied Change Haldol to 10 mg bedtime 06/[address] hearing tomorrow. 06/14 risperidone 2mg po BID, back IM prolixin 5mg IM if pt refuses oral risperidone. Plan to do ADORNO of risperidone 06/15 continue tx. 06/16 continue tx. 06/17 add depakote 500mg po BID. prolixin 5mg po BID. 06/18 keep same treatment, encourage compliance. 06/19 keep same treatment 06/20 continue tx- plan for ADORNO this week 06/21 plan for ADORNO this week 06/22 continue tx. May try to change to prolixin as main antipsychotic. 06/23 give back IM if pt refuses either prolixin or risperidone. will try prolixin to be main antipsychotic as risperidone along only partially effective. 06/24 continue treatment plan 06/25: no changes 06/26: no changes 06/27: irritable, argumentative. states he has an appeal hearing scheduled, redirected to speak with his oliver filter operator. taking meds, no substantial behavioral concerns. 06/28: taking meds. much less irritable and labile than yesterday. more organized, asking when he might be able to discharge. continue current mgmt. denying penile pain, no need for further w/u presently (no UTI). 06/29: continues improved, taking meds. continue current mgmt. 06/30: refused morning VPA, wants all VPA at HS. aware this will mean ER formulation, large pills, would like to change nevertheless. remains improved from several days ago, focused on when he might be able to discharge. 07/05 continue tx. 07/06 plan to give ADORNO prolixin 25mg IM qmonthly tomorrow. plan for d/c next Wednesday Reason for continued inpatient stay Substantial Risk for: inability to function Time Spent With Patient Time: Total time managing care of this patient today ____ minutes.
[2023-07-07 20:00] VITALS: BP 118/68; PULSE 98; RESP 18; TEMP 36.2; O2SAT 100
[2023-07-07] MEDS: Divalproex Sodium ER 500 MG TAB.ER.24H 1000 MG PO (21:14)
[2023-07-07] MEDS: hydrOXYzine HCL 25 MG TABLET PO (21:15)
[2023-07-07] MEDS: Tamsulosin HCL 0.4 MG CAPSULE PO (21:15)
[2023-07-07] MEDS: Atorvastatin Calcium 40 MG TABLET PO (21:15)
[2023-07-08] MEDS: Mupirocin 2 % Oint 22 GM TUBE 1 APPL TOPICAL ×2 (03:31→15:34)
[2023-07-08] MEDS: Levothyroxine Sodium 25 MCG TABLET PO (06:11)
[2023-07-08 09:39] VITALS: BP 132/60; PULSE 75; RESP 16; TEMP 36.7; O2SAT 98
[2023-07-08] MEDS: Fluticasone/Umeclidinium/Vilanterol 100/62.5/25 BLST.W.DEV 1 PUFF INHALE (09:56)
[2023-07-08] MEDS: fluPHENAZine HCl 5 MG TABLET PO ×2 (09:56→20:58)
[2023-07-08] MEDS: Ferrous Sulfate 324 MG TABLET.DR PO (09:56)
[2023-07-08] MEDS: Apixaban 5 MG TABLET PO ×2 (09:56→21:43)
[2023-07-08] MEDS: Magnesium Oxide 400 MG TABLET PO ×2 (09:56→17:01)
[2023-07-08] MEDS: risperiDONE 2 MG TABLET PO ×2 (09:56→20:58)
[2023-07-08] MEDS: Loratadine 10 MG TABLET PO (09:56)
[2023-07-08] MEDS: fluPHENAZine decanoate 25 MG/ML 5 ML VIAL IM (10:50)
[2023-07-08 20:00] VITALS: BP 137/65; PULSE 86; RESP 18; TEMP 36.2; O2SAT 100
--- NOTE | 2023-07-08 20:31 | HO.PSYCHPN ---
Subjective Subjective Date of Service: 07/08/23 Reason For Visit: Psychosis Subjective Notes: Section 8 Interim History: Pt slept most of the night. He is taking medications more consistently including medical medications. He received ADORNO of prolixin 25mg IM. He asked appropriate questions about ADORNO, whether it will be court mandated in the community- at this point no community candice's. He agreed to receive it- currently on the unit is court mandated. No behavioral concerns. He showered, shaved his melo. Much improved hygiene. 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 Insight/jdugment: impaired x 2. memory/cog: alert, not oriented to situation. Mood Description: Withdrawn Affect Description: Constricted Patient Cognition Impaired: Yes Ability to Follow Directions: Good Speech Pattern: Clear Diagnostics Vital Signs (24Hr): Vital Signs - 24 hr 07/08/23 09:39 Temperature 98.1 F Pulse Rate 75 Respiratory Rate 16 Blood Pressure 132/60 Pulse Oximetry 98 Oxygen Delivery Method Room Air BMI result Body Mass Index 25.4 Labs 06/04/23 02:14 06/04/23 02:14 Medications Medications Current Medications Acetaminophen (Acetaminophen 325 Mg Tablet) 650 mg PO Q6H PRN PRN Reason: Headache/Pain Mild Scale (1-3) Last Admin: 06/26/23 08:13 Dose: 650 mg Al Hydroxide/Mg Hydroxide (Magnesium Hydrox/Alum Hydrox 30 Ml Oral.Susp) 30 ml PO Q6H PRN PRN Reason: Heartburn/Nausea Albuterol Sulfate (Albuterol Sulfate 90 Mcg 8 Gm Inhaler) 1 puff INHALE RQ4H PRN PRN Reason: Wheezing/SOB Apixaban (Apixaban 5 Mg Tablet) 5 mg PO BID [facility] Last Admin: 07/08/23 09:56 Dose: 5 mg Atorvastatin Calcium (Atorvastatin Calcium 40 Mg Tablet) 40 mg PO BEDTIME [facility] Last Admin: 07/07/23 21:15 Dose: 40 mg Divalproex Sodium (Divalproex Sodium Er 500 Mg Tab.Er.24h) 1,000 mg PO BEDTIME [facility] Last Admin: 07/07/23 21:14 Dose: 1,000 mg Ferrous Sulfate (Ferrous Sulfate 324 Mg Tablet.Dr) 324 mg PO DAILY [facility] Last Admin: 07/08/23 09:56 Dose: 324 mg Fluphenazine Decanoate (Fluphenazine Decanoate 25 Mg/Ml 5 Ml Vial) 25 mg IM Q28D [facility] Last Admin: 07/08/23 10:50 Dose: 25 mg Fluphenazine HCl (Fluphenazine Hcl 5 Mg Tablet) 5 mg PO BID [facility] Last Admin: 07/08/23 09:56 Dose: 5 mg Fluphenazine HCl (Fluphenazine Hcl 2.5 Mg/Ml 10 Ml Vial) 5 mg IM BID PRN PRN Reason: if refuses oral prolixin/rispe Fluticasone/Umeclidinium/Vilanterol (Fluticasone/Umeclidinium/Vilanterol 100/62.5/25 Blst.W.Dev) 1 puff INHALE RDAILY [facility] Last Admin: 07/08/23 09:56 Dose: 1 puff Hydroxyzine HCl (Hydroxyzine Hcl 25 Mg Tablet) 25 mg PO Q6H PRN PRN Reason: Anxiety Last Admin: 07/07/23 21:15 Dose: 25 mg Levothyroxine Sodium (Levothyroxine Sodium 25 Mcg Tablet) 25 mcg PO DAILY@0600 [facility] Last Admin: 07/08/23 06:11 Dose: 25 mcg Loratadine (Loratadine 10 Mg Tablet) 10 mg PO DAILY [facility] Last Admin: 07/08/23 09:56 Dose: 10 mg Magnesium Hydroxide (Milk Of Magnesia 30 Ml Oral.Susp) 30 ml PO DAILY PRN PRN Reason: Constipation Last Admin: 06/20/23 16:30 Dose: 30 ml Magnesium Oxide (Magnesium Oxide 400 Mg Tablet) 400 mg PO BIDPC [facility] Last Admin: 07/08/23 17:01 Dose: 400 mg Mupirocin (Mupirocin 2 % Oint 22 Gm Tube) 1 appl TOPICAL BID PRN; Protocol PRN Reason: scalp lesions Last Admin: 07/08/23 15:34 Dose: 1 appl Phenazopyridine HCl (Phenazopyridine Hcl 200 Mg Tablet) 200 mg PO TID PRN PRN Reason: dysuria Risperidone (Risperidone 2 Mg Tablet) 2 mg PO BID [facility] Last Admin: 07/08/23 09:56 Dose: 2 mg Tamsulosin HCl (Tamsulosin Hcl 0.4 Mg Capsule) 0.4 mg PO BEDTIME [facility] Last Admin: 07/07/23 21:15 Dose: 0.4 mg Allergies Allergies Allergy/AdvReac Type Severity Reaction Status Date / Time No Known Allergies Allergy Mild NOT Verified 06/03/23 18:57 APPLICABLE Assessment & Plan Assessment & Plan (1) Schizophrenia: Status: Acute Code(s): F20.9 - Schizophrenia, unspecified Plan Mr. Zaragoza is a 72 year-old male with hx of schizophrenia who was brought on a sect 12a due to pt exposing himself to the neighbors. Pt has been refusing medications at , becoming more agitated. On the unit, pt disorganized, refusing labs, selective about medications. PLAN 1. continue risperidone 2mg po BID. 2. filed sect 7/8. 06/11/2023 Patient not taking medication psychotic refusing medical care on section 7 may need to get abdominal CT scan patient recently had nausea vomiting seems to be somewhat better today concerns regarding incarcerated hernia patient not able to make medical decisions at this time refusing lab 06/12/2023 Somewhat more cooperative today did take 1 dose of Haldol encourage medication labs and vital signs no acute abdominal pain patient may need eventual guardianship for clarity regarding need for repair of quite significant inguinal hernia that impacts the patient's quality of life 06/13/2023 Patient may benefit from guardianship to make medical decisions Section [address] patient bizarre preoccupied Change Haldol to 10 mg bedtime 06/[address] hearing tomorrow. 06/14 risperidone 2mg po BID, back IM prolixin 5mg IM if pt refuses oral risperidone. Plan to do ADORNO of risperidone 06/15 continue tx. 06/16 continue tx. 06/17 add depakote 500mg po BID. prolixin 5mg po BID. 06/18 keep same treatment, encourage compliance. 06/19 keep same treatment 06/20 continue tx- plan for ADORNO this week 06/21 plan for ADORNO this week 06/22 continue tx. May try to change to prolixin as main antipsychotic. 06/23 give back IM if pt refuses either prolixin or risperidone. will try prolixin to be main antipsychotic as risperidone along only partially effective. 06/24 continue treatment plan 06/25: no changes 06/26: no changes 06/27: irritable, argumentative. states he has an appeal hearing scheduled, redirected to speak with his development technician. taking meds, no substantial behavioral concerns. 06/28: taking meds. much less irritable and labile than yesterday. more organized, asking when he might be able to discharge. continue current mgmt. denying penile pain, no need for further w/u presently (no UTI). 06/29: continues improved, taking meds. continue current mgmt. 06/30: refused morning VPA, wants all VPA at HS. aware this will mean ER formulation, large pills, would like to change nevertheless. remains improved from several days ago, focused on when he might be able to discharge. 07/05 continue tx. 07/06 plan to give ADORNO prolixin 25mg IM qmonthly tomorrow. plan for d/c next Friday 07/07 received ADORNO prolixin 25mg IM [id number]. continue oral prolixin for next 2 weeks. Reason for continued inpatient stay Substantial Risk for: inability to function Time Spent With Patient Time: Total time managing care of this patient today ____ minutes.
[2023-07-08] MEDS: Divalproex Sodium ER 500 MG TAB.ER.24H 1000 MG PO (20:58)
[2023-07-08] MEDS: Tamsulosin HCL 0.4 MG CAPSULE PO (20:58)
[2023-07-08] MEDS: Atorvastatin Calcium 40 MG TABLET PO (21:02)
[2023-07-09] MEDS: Levothyroxine Sodium 25 MCG TABLET PO (06:03)
[2023-07-09 07:57] VITALS: BP 116/58; PULSE 95; RESP 16; TEMP 36.3; O2SAT 99
[2023-07-09] MEDS: risperiDONE 2 MG TABLET PO (08:00)
[2023-07-09] MEDS: Fluticasone/Umeclidinium/Vilanterol 100/62.5/25 BLST.W.DEV 1 PUFF INHALE (08:00)
[2023-07-09] MEDS: Loratadine 10 MG TABLET PO (08:00)
[2023-07-09] MEDS: Magnesium Oxide 400 MG TABLET PO ×2 (08:00→17:01)
[2023-07-09] MEDS: fluPHENAZine HCl 5 MG TABLET PO (08:00)
[2023-07-09] MEDS: Apixaban 5 MG TABLET PO ×2 (08:00→20:25)
[2023-07-09] MEDS: Ferrous Sulfate 324 MG TABLET.DR PO (08:00)
[2023-07-09] MEDS: Benztropine Mesylate 1 MG TABLET PO ×2 (10:43→20:25)
[2023-07-09 13:45] VITALS: BMI 25.7
--- NOTE | 2023-07-09 15:50 | HO.PSYCHPN ---
Subjective Subjective Date of Service: 07/09/23 Reason For Visit: Psychosis Subjective Notes: Section 8 Interim History: Pt slept all night. his thought process is much more organized and bit more coherent. Still no insight into psychiatric illness or need for treatment but this may not be regained. He does have dyskinesia. will add cogentin, lower risperidone- I do suspect most effective antipsychotic is probably prolixin, will keep lowest effective dose. 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 Insight/jdugment: impaired x 2. memory/cog: alert, not oriented to situation. Mood Description: Withdrawn Affect Description: Constricted Patient Cognition Impaired: Yes Ability to Follow Directions: Good Speech Pattern: Clear Diagnostics Vital Signs (24Hr): Vital Signs - 24 hr 07/08/23 20:00 07/09/23 07:57 Temperature 97.2 F 97.4 F Pulse Rate 86 95 Respiratory Rate 18 16 Blood Pressure 137/65 116/58 L Pulse Oximetry 100 99 Oxygen Delivery Method Room Air Room Air BMI result Body Mass Index 25.7 Labs 06/04/23 02:14 06/04/23 02:14 Medications Medications Current Medications Acetaminophen (Acetaminophen 325 Mg Tablet) 650 mg PO Q6H PRN PRN Reason: Headache/Pain Mild Scale (1-3) Last Admin: 06/26/23 08:13 Dose: 650 mg Al Hydroxide/Mg Hydroxide (Magnesium Hydrox/Alum Hydrox 30 Ml Oral.Susp) 30 ml PO Q6H PRN PRN Reason: Heartburn/Nausea Albuterol Sulfate (Albuterol Sulfate 90 Mcg 8 Gm Inhaler) 1 puff INHALE RQ4H PRN PRN Reason: Wheezing/SOB Apixaban (Apixaban 5 Mg Tablet) 5 mg PO BID [facility] Last Admin: 07/09/23 08:00 Dose: 5 mg Atorvastatin Calcium (Atorvastatin Calcium 40 Mg Tablet) 40 mg PO BEDTIME [facility] Last Admin: 07/08/23 21:02 Dose: 40 mg Benztropine Mesylate (Benztropine Mesylate 1 Mg Tablet) 1 mg PO BID [facility] Divalproex Sodium (Divalproex Sodium Er 500 Mg Tab.Er.24h) 1,000 mg PO BEDTIME [facility] Last Admin: 07/08/23 20:58 Dose: 1,000 mg Ferrous Sulfate (Ferrous Sulfate 324 Mg Tablet.Dr) 324 mg PO DAILY [facility] Last Admin: 07/09/23 08:00 Dose: 324 mg Fluphenazine Decanoate (Fluphenazine Decanoate 25 Mg/Ml 5 Ml Vial) 25 mg IM Q28D [facility] Last Admin: 07/08/23 10:50 Dose: 25 mg Fluphenazine HCl (Fluphenazine Hcl 2.5 Mg/Ml 10 Ml Vial) 5 mg IM BID PRN PRN Reason: if refuses oral prolixin/rispe Fluticasone/Umeclidinium/Vilanterol (Fluticasone/Umeclidinium/Vilanterol 100/62.5/25 Blst.W.Dev) 1 puff INHALE RDAILY [facility] Last Admin: 07/09/23 08:00 Dose: 1 puff Hydroxyzine HCl (Hydroxyzine Hcl 25 Mg Tablet) 25 mg PO Q6H PRN PRN Reason: Anxiety Last Admin: 07/07/23 21:15 Dose: 25 mg Levothyroxine Sodium (Levothyroxine Sodium 25 Mcg Tablet) 25 mcg PO DAILY@0600 [facility] Last Admin: 07/09/23 06:03 Dose: 25 mcg Loratadine (Loratadine 10 Mg Tablet) 10 mg PO DAILY [facility] Last Admin: 07/09/23 08:00 Dose: 10 mg Magnesium Hydroxide (Milk Of Magnesia 30 Ml Oral.Susp) 30 ml PO DAILY PRN PRN Reason: Constipation Last Admin: 06/20/23 16:30 Dose: 30 ml Magnesium Oxide (Magnesium Oxide 400 Mg Tablet) 400 mg PO BIDPC [facility] Last Admin: 07/09/23 08:00 Dose: 400 mg Mupirocin (Mupirocin 2 % Oint 22 Gm Tube) 1 appl TOPICAL BID [place]; Protocol Phenazopyridine HCl (Phenazopyridine Hcl 200 Mg Tablet) 200 mg PO TID PRN PRN Reason: dysuria Risperidone (Risperidone 1 Mg Tablet) 1 mg PO BID [place] Tamsulosin HCl (Tamsulosin Hcl 0.4 Mg Capsule) 0.4 mg PO BEDTIME [place] Last Admin: 07/08/23 20:58 Dose: 0.4 mg Allergies Allergies Allergy/AdvReac Type Severity Reaction Status Date / Time No Known Allergies Allergy Mild NOT Verified 06/03/23 18:57 APPLICABLE Assessment & Plan Assessment & Plan (1) Schizophrenia: Status: Acute Code(s): F20.9 - Schizophrenia, unspecified Plan Mr. Zaragoza is a 72 year-old male with hx of schizophrenia who was brought on a sect 12a due to pt exposing himself to the neighbors. Pt has been refusing medications at , becoming more agitated. On the unit, pt disorganized, refusing labs, selective about medications. PLAN 1. continue risperidone 2mg po BID. 2. filed sect 7/8. 06/11/2023 Patient not taking medication psychotic refusing medical care on section 7 may need to get abdominal CT scan patient recently had nausea vomiting seems to be somewhat better today concerns regarding incarcerated hernia patient not able to make medical decisions at this time refusing lab 06/12/2023 Somewhat more cooperative today did take 1 dose of Haldol encourage medication labs and vital signs no acute abdominal pain patient may need eventual guardianship for clarity regarding need for repair of quite significant inguinal hernia that impacts the patient's quality of life 06/13/2023 Patient may benefit from guardianship to make medical decisions Section [address] patient bizarre preoccupied Change Haldol to 10 mg bedtime 06/[address] hearing tomorrow. 06/14 risperidone 2mg po BID, back IM prolixin 5mg IM if pt refuses oral risperidone. Plan to do ADORNO of risperidone 06/15 continue tx. 06/16 continue tx. 06/17 add depakote 500mg po BID. prolixin 5mg po BID. 06/18 keep same treatment, encourage compliance. 06/19 keep same treatment 06/20 continue tx- plan for ADORNO this week 06/21 plan for ADORNO this week 06/22 continue tx. May try to change to prolixin as main antipsychotic. 06/23 give back IM if pt refuses either prolixin or risperidone. will try prolixin to be main antipsychotic as risperidone along only partially effective. 06/24 continue treatment plan 06/25: no changes 06/26: no changes 06/27: irritable, argumentative. states he has an appeal hearing scheduled, redirected to speak with his mapping analyst. taking meds, no substantial behavioral concerns. 06/28: taking meds. much less irritable and labile than yesterday. more organized, asking when he might be able to discharge. continue current mgmt. denying penile pain, no need for further w/u presently (no UTI). 06/29: continues improved, taking meds. continue current mgmt. 06/30: refused morning VPA, wants all VPA at HS. aware this will mean ER formulation, large pills, would like to change nevertheless. remains improved from several days ago, focused on when he might be able to discharge. 07/05 continue tx. 07/06 plan to give ADORNO prolixin 25mg IM qmonthly tomorrow. plan for d/c next Friday 07/07 received ADORNO prolixin 25mg IM [id number]. continue oral prolixin for next 2 weeks. 07/08 add cogentin 1mg po BID. lower risperidone 1mg po BID due to dyskinesia. Reason for continued inpatient stay Substantial Risk for: inability to function Time Spent With Patient Time: Total time managing care of this patient today ____ minutes.
[2023-07-09 20:00] VITALS: BP 133/64; PULSE 92; RESP 18; TEMP 36.5; O2SAT 98
[2023-07-09] MEDS: Atorvastatin Calcium 40 MG TABLET PO (20:25)
[2023-07-09] MEDS: Tamsulosin HCL 0.4 MG CAPSULE PO (20:25)
[2023-07-09] MEDS: hydrOXYzine HCL 25 MG TABLET PO (20:25)
[2023-07-09] MEDS: Divalproex Sodium ER 500 MG TAB.ER.24H 1000 MG PO (20:26)
[2023-07-09] MEDS: risperiDONE 1 MG TABLET PO (20:31)
[2023-07-09] MEDS: Mupirocin 2 % Oint 22 GM TUBE 1 APPL TOPICAL (20:41)
[2023-07-10] MEDS: Levothyroxine Sodium 25 MCG TABLET PO (06:29)
[2023-07-10 08:50] VITALS: BP 126/73; PULSE 94; RESP 18; TEMP 36.6; O2SAT 98
[2023-07-10] MEDS: Fluticasone/Umeclidinium/Vilanterol 100/62.5/25 BLST.W.DEV 1 PUFF INHALE (08:56)
[2023-07-10] MEDS: risperiDONE 1 MG TABLET PO ×2 (08:57→20:06)
[2023-07-10] MEDS: Apixaban 5 MG TABLET PO ×2 (08:57→20:06)
[2023-07-10] MEDS: Benztropine Mesylate 1 MG TABLET PO ×2 (08:57→20:06)
[2023-07-10] MEDS: Loratadine 10 MG TABLET PO (08:57)
[2023-07-10] MEDS: Ferrous Sulfate 324 MG TABLET.DR PO (08:57)
[2023-07-10] MEDS: Magnesium Oxide 400 MG TABLET PO ×2 (08:57→16:15)
[2023-07-10] MEDS: Mupirocin 2 % Oint 22 GM TUBE 1 APPL TOPICAL ×2 (10:34→20:46)
--- NOTE | 2023-07-10 10:35 | P.PNPSI_ITS ---
Subjective Subjective Date of Service: 07/10/23 Reason For Visit: Psychosis Subjective Notes: Conditional Voluntary Interim History: Patient was seen and discussed in rounds today. Records and plans were reviewed. He has been stable, compliant with treatment. No complaints or side effects. Eating and sleeping adequately. He is looking forward to being discharged this week. 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 Insight/jdugment: impaired x 2. memory/cog: alert, not oriented to situation. Mood Description: Withdrawn Affect Description: Constricted Patient Cognition Impaired: Yes Ability to Follow Directions: Good Speech Pattern: Clear Diagnostics Vital Signs (24Hr): Vital Signs - 24 hr 07/09/23 20:00 07/10/23 08:50 Temperature 97.7 F 97.9 F Pulse Rate 92 94 Respiratory Rate 18 18 Blood Pressure 133/64 126/73 Pulse Oximetry 98 98 Oxygen Delivery Method Room Air Room Air BMI result Body Mass Index 25.7 Labs 06/04/23 02:14 06/04/23 02:14 Medications Medications Current Medications Acetaminophen (Acetaminophen 325 Mg Tablet) 650 mg PO Q6H PRN PRN Reason: Headache/Pain Mild Scale (1-3) Last Admin: 06/26/23 08:13 Dose: 650 mg Al Hydroxide/Mg Hydroxide (Magnesium Hydrox/Alum Hydrox 30 Ml Oral.Susp) 30 ml PO Q6H PRN PRN Reason: Heartburn/Nausea Albuterol Sulfate (Albuterol Sulfate 90 Mcg 8 Gm Inhaler) 1 puff INHALE RQ4H PRN PRN Reason: Wheezing/SOB Apixaban (Apixaban 5 Mg Tablet) 5 mg PO BID [place] Last Admin: 07/10/23 08:57 Dose: 5 mg Atorvastatin Calcium (Atorvastatin Calcium 40 Mg Tablet) 40 mg PO BEDTIME REPLACED BY [facility] Last Admin: 07/09/23 20:25 Dose: 40 mg Benztropine Mesylate (Benztropine Mesylate 1 Mg Tablet) 1 mg PO BID [facility] Last Admin: 07/10/23 08:57 Dose: 1 mg Divalproex Sodium (Divalproex Sodium Er 500 Mg Tab.Er.24h) 1,000 mg PO BEDTIME [facility]PL[facility]ED [facility] Last Admin: 07/09/23 20:26 Dose: 1,000 mg Ferrous Sulfate (Ferrous Sulfate 324 Mg Tablet.Dr) 324 mg PO DAILY [facility]PL[facility] Last Admin: 07/10/23 08:57 Dose: 324 mg Fluphenazine Decanoate (Fluphenazine Decanoate 25 Mg/Ml 5 Ml Vial) 25 mg IM Q28D REPLACED BY [facility] Last Admin: 07/08/23 10:50 Dose: 25 mg Fluphenazine HCl (Fluphenazine Hcl 2.5 Mg/Ml 10 Ml Vial) 5 mg IM BID PRN PRN Reason: if refuses oral prolixin/rispe Fluticasone/Umeclidinium/Vilanterol (Fluticasone/Umeclidinium/Vilanterol 100/62.5/25 Blst.W.Dev) 1 puff INHALE RDAILY [facility]PL[facility]ED [facility] Last Admin: 07/10/23 08:56 Dose: 1 puff Hydroxyzine HCl (Hydroxyzine Hcl 25 Mg Tablet) 25 mg PO Q6H PRN PRN Reason: Anxiety Last Admin: 07/09/23 20:25 Dose: 25 mg Levothyroxine Sodium (Levothyroxine Sodium 25 Mcg Tablet) 25 mcg PO DAILY@0600 [facility]PL[facility]ED [facility] Last Admin: 07/10/23 06:29 Dose: 25 mcg Loratadine (Loratadine 10 Mg Tablet) 10 mg PO DAILY [facility] Last Admin: 07/10/23 08:57 Dose: 10 mg Magnesium Hydroxide (Milk Of Magnesia 30 Ml Oral.Susp) 30 ml PO DAILY PRN PRN Reason: Constipation Last Admin: 06/20/23 16:30 Dose: 30 ml Magnesium Oxide (Magnesium Oxide 400 Mg Tablet) 400 mg PO BIDPC REPLACED BY [facility] Last Admin: 07/10/23 08:57 Dose: 400 mg Mupirocin (Mupirocin 2 % Oint 22 Gm Tube) 1 appl TOPICAL BID [facility]PLACED BY [facility]; Protocol Last Admin: 07/09/23 20:41 Dose: 1 appl Phenazopyridine HCl (Phenazopyridine Hcl 200 Mg Tablet) 200 mg PO TID PRN PRN Reason: dysuria Risperidone (Risperidone 1 Mg Tablet) 1 mg PO BID [facility]PL[facility] Last Admin: 07/10/23 08:57 Dose: 1 mg Tamsulosin HCl (Tamsulosin Hcl 0.4 Mg Capsule) 0.4 mg PO BEDTIME REPLACED BY [facility] Last Admin: 07/09/23 20:25 Dose: 0.4 mg Allergies Allergies Allergy/AdvReac Type Severity Reaction Status Date / Time No Known Allergies Allergy Mild NOT Verified 06/03/23 18:57 APPLICABLE Assessment & Plan Assessment & Plan (1) Schizophrenia: Status: Acute Code(s): F20.9 - Schizophrenia, unspecified Plan Mr. Zaragoza is a 72 year-old male with hx of schizophrenia who was brought on a sect 12a due to pt exposing himself to the neighbors. Pt has been refusing medications at , becoming more agitated. On the unit, pt disorganized, refusing labs, selective about medications. PLAN 1. continue risperidone 2mg po BID. 2. filed sect 7/8. 06/11/2023 Patient not taking medication psychotic refusing medical care on section 7 may need to get abdominal CT scan patient recently had nausea vomiting seems to be somewhat better today concerns regarding incarcerated hernia patient not able to make medical decisions at this time refusing lab 06/12/2023 Somewhat more cooperative today did take 1 dose of Haldol encourage medication labs and vital signs no acute abdominal pain patient may need eventual guardianship for clarity regarding need for repair of quite significant inguinal hernia that impacts the patient's quality of life 06/13/2023 Patient may benefit from guardianship to make medical decisions Section [address] patient bizarre preoccupied Change Haldol to 10 mg bedtime 06/[address] hearing tomorrow. 06/14 risperidone 2mg po BID, back IM prolixin 5mg IM if pt refuses oral risperidone. Plan to do ADORNO of risperidone 06/15 continue tx. 06/16 continue tx. 06/17 add depakote 500mg po BID. prolixin 5mg po BID. 06/18 keep same treatment, encourage compliance. 06/19 keep same treatment 06/20 continue tx- plan for ADORNO this week 06/21 plan for ADORNO this week 06/22 continue tx. May try to change to prolixin as main antipsychotic. 06/23 give back IM if pt refuses either prolixin or risperidone. will try prolixin to be main antipsychotic as risperidone along only partially effective. 06/24 continue treatment plan 06/25: no changes 06/26: no changes 06/27: irritable, argumentative. states he has an appeal hearing scheduled, redirected to speak with his tubular riveter. taking meds, no substantial behavioral concerns. 06/28: taking meds. much less irritable and labile than yesterday. more organized, asking when he might be able to discharge. continue current mgmt. denying penile pain, no need for further w/u presently (no UTI). 06/29: continues improved, taking meds. continue current mgmt. 06/30: refused morning VPA, wants all VPA at HS. aware this will mean ER formulation, large pills, would like to change nevertheless. remains improved from several days ago, focused on when he might be able to discharge. 07/05 continue tx. 07/06 plan to give ADORNO prolixin 25mg IM qmonthly tomorrow. plan for d/c next Friday 07/07 received ADORNO prolixin 25mg IM [id number]. continue oral prolixin for next 2 weeks. 07/10/2023: Continue current regimen and plans Reason for continued inpatient stay Substantial Risk for: med/psych decompensation Time Spent With Patient Time: Total time managing care of this patient today ____ minutes.
[2023-07-10 20:00] VITALS: BP 140/71; PULSE 78; RESP 18; TEMP 36.3; O2SAT 100
[2023-07-10] MEDS: Divalproex Sodium ER 500 MG TAB.ER.24H 1000 MG PO (20:06)
[2023-07-10] MEDS: Tamsulosin HCL 0.4 MG CAPSULE PO (20:06)
[2023-07-10] MEDS: Atorvastatin Calcium 40 MG TABLET PO (20:07)
[2023-07-11] MEDS: Levothyroxine Sodium 25 MCG TABLET PO (05:44)
[2023-07-11] MEDS: Magnesium Hydrox/Alum Hydrox 30 ML ORAL.SUSP PO (06:22)
[2023-07-11 08:20] VITALS: BP 145/60; PULSE 86; RESP 20; TEMP 36.4; O2SAT 100
[2023-07-11] MEDS: Mupirocin 2 % Oint 22 GM TUBE 1 APPL TOPICAL ×2 (08:22→21:13)
[2023-07-11] MEDS: Magnesium Oxide 400 MG TABLET PO ×2 (08:22→15:52)
[2023-07-11] MEDS: Ferrous Sulfate 324 MG TABLET.DR PO (08:22)
[2023-07-11] MEDS: Loratadine 10 MG TABLET PO (08:22)
[2023-07-11] MEDS: Fluticasone/Umeclidinium/Vilanterol 100/62.5/25 BLST.W.DEV 1 PUFF INHALE (08:22)
[2023-07-11] MEDS: Apixaban 5 MG TABLET PO ×2 (08:22→21:13)
[2023-07-11] MEDS: risperiDONE 1 MG TABLET PO ×2 (08:22→21:13)
[2023-07-11] MEDS: Benztropine Mesylate 1 MG TABLET PO ×2 (08:22→21:13)
--- NOTE | 2023-07-11 09:53 | P.PNPSI_ITS ---
Subjective Subjective Date of Service: 07/11/23 Reason For Visit: Psychosis Subjective Notes: Conditional Voluntary Interim History: Patient was seen and discussed in rounds today. Records and plans were reviewed. He is stable and is doing quite well. He is social. Some tangentiality in delusional thinking present. He is looking forward to being discharged back to his [facility] this week. Eating and sleeping well. No complaints or side effects. 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 Insight/jdugment: impaired x 2. memory/cog: alert, not oriented to situation. Mood Description: Withdrawn Affect Description: Constricted Patient Cognition Impaired: Yes Ability to Follow Directions: Good Speech Pattern: Clear Diagnostics Vital Signs (24Hr): Vital Signs - 24 hr 07/10/23 20:00 07/11/23 08:20 Temperature 97.3 F 97.6 F Pulse Rate 78 86 Respiratory Rate 18 20 Blood Pressure 140/71 H 145/60 H Pulse Oximetry 100 100 Oxygen Delivery Method Room Air Room Air BMI result Body Mass Index 25.7 Labs 06/04/23 02:14 06/04/23 02:14 Medications Medications Current Medications Acetaminophen (Acetaminophen 325 Mg Tablet) 650 mg PO Q6H PRN PRN Reason: Headache/Pain Mild Scale (1-3) Last Admin: 06/26/23 08:13 Dose: 650 mg Al Hydroxide/Mg Hydroxide (Magnesium Hydrox/Alum Hydrox 30 Ml Oral.Susp) 30 ml PO Q6H PRN PRN Reason: Heartburn/Nausea Last Admin: 07/11/23 06:22 Dose: 30 ml Albuterol Sulfate (Albuterol Sulfate 90 Mcg 8 Gm Inhaler) 1 puff INHALE RQ4H PRN PRN Reason: Wheezing/SOB Apixaban (Apixaban 5 Mg Tablet) 5 mg PO BID [facility] Last Admin: 07/11/23 08:22 Dose: 5 mg Atorvastatin Calcium (Atorvastatin Calcium 40 Mg Tablet) 40 mg PO BEDTIME [facility] Last Admin: 07/10/23 20:07 Dose: 40 mg Benztropine Mesylate (Benztropine Mesylate 1 Mg Tablet) 1 mg PO BID [facility] Last Admin: 07/11/23 08:22 Dose: 1 mg Divalproex Sodium (Divalproex Sodium Er 500 Mg Tab.Er.24h) 1,000 mg PO BEDTIME [facility] Last Admin: 07/10/23 20:06 Dose: 1,000 mg Ferrous Sulfate (Ferrous Sulfate 324 Mg Tablet.Dr) 324 mg PO DAILY [facility] Last Admin: 07/11/23 08:22 Dose: 324 mg Fluphenazine Decanoate (Fluphenazine Decanoate 25 Mg/Ml 5 Ml Vial) 25 mg IM Q28D [facility] Last Admin: 07/08/23 10:50 Dose: 25 mg Fluphenazine HCl (Fluphenazine Hcl 2.5 Mg/Ml 10 Ml Vial) 5 mg IM BID PRN PRN Reason: if refuses oral prolixin/rispe Fluticasone/Umeclidinium/Vilanterol (Fluticasone/Umeclidinium/Vilanterol 100/62.5/25 Blst.W.Dev) 1 puff INHALE RDAILY [facility] Last Admin: 07/11/23 08:22 Dose: 1 puff Hydroxyzine HCl (Hydroxyzine Hcl 25 Mg Tablet) 25 mg PO Q6H PRN PRN Reason: Anxiety Last Admin: 07/09/23 20:25 Dose: 25 mg Levothyroxine Sodium (Levothyroxine Sodium 25 Mcg Tablet) 25 mcg PO DAILY@0600 [facility] Last Admin: 07/11/23 05:44 Dose: 25 mcg Loratadine (Loratadine 10 Mg Tablet) 10 mg PO DAILY [facility] Last Admin: 07/11/23 08:22 Dose: 10 mg Magnesium Hydroxide (Milk Of Magnesia 30 Ml Oral.Susp) 30 ml PO DAILY PRN PRN Reason: Constipation Last Admin: 06/20/23 16:30 Dose: 30 ml Magnesium Oxide (Magnesium Oxide 400 Mg Tablet) 400 mg PO BIDPC [facility] Last Admin: 07/11/23 08:22 Dose: 400 mg Mupirocin (Mupirocin 2 % Oint 22 Gm Tube) 1 appl TOPICAL BID [place]; Protocol Last Admin: 07/11/23 08:22 Dose: 1 appl Phenazopyridine HCl (Phenazopyridine Hcl 200 Mg Tablet) 200 mg PO TID PRN PRN Reason: dysuria Risperidone (Risperidone 1 Mg Tablet) 1 mg PO BID [facility] Last Admin: 07/11/23 08:22 Dose: 1 mg Tamsulosin HCl (Tamsulosin Hcl 0.4 Mg Capsule) 0.4 mg PO BEDTIME [facility] Last Admin: 07/10/23 20:06 Dose: 0.4 mg Allergies Allergies Allergy/AdvReac Type Severity Reaction Status Date / Time No Known Allergies Allergy Mild NOT Verified 06/03/23 18:57 APPLICABLE Assessment & Plan Assessment & Plan (1) Schizophrenia: Status: Acute Code(s): F20.9 - Schizophrenia, unspecified Plan Mr. Zaragoza is a 72 year-old male with hx of schizophrenia who was brought on a sect 12a due to pt exposing himself to the neighbors. Pt has been refusing medications at , becoming more agitated. On the unit, pt disorganized, refusing labs, selective about medications. PLAN 1. continue risperidone 2mg po BID. 2. filed sect 7/8. 06/11/2023 Patient not taking medication psychotic refusing medical care on section 7 may need to get abdominal CT scan patient recently had nausea vomiting seems to be somewhat better today concerns regarding incarcerated hernia patient not able to make medical decisions at this time refusing lab 06/12/2023 Somewhat more cooperative today did take 1 dose of Haldol encourage medication labs and vital signs no acute abdominal pain patient may need eventual guardianship for clarity regarding need for repair of quite significant inguinal hernia that impacts the patient's quality of life 06/13/2023 Patient may benefit from guardianship to make medical decisions Section [address] patient bizarre preoccupied Change Haldol to 10 mg bedtime 06/[address] hearing tomorrow. 06/14 risperidone 2mg po BID, back IM prolixin 5mg IM if pt refuses oral risperidone. Plan to do ADORNO of risperidone 06/15 continue tx. 06/16 continue tx. 06/17 add depakote 500mg po BID. prolixin 5mg po BID. 06/18 keep same treatment, encourage compliance. 06/19 keep same treatment 06/20 continue tx- plan for ADORNO this week 06/21 plan for ADORNO this week 06/22 continue tx. May try to change to prolixin as main antipsychotic. 06/23 give back IM if pt refuses either prolixin or risperidone. will try prolixin to be main antipsychotic as risperidone along only partially effective. 06/24 continue treatment plan 06/25: no changes 06/26: no changes 06/27: irritable, argumentative. states he has an appeal hearing scheduled, redirected to speak with his lease operator. taking meds, no substantial behavioral concerns. 06/28: taking meds. much less irritable and labile than yesterday. more organized, asking when he might be able to discharge. continue current mgmt. denying penile pain, no need for further w/u presently (no UTI). 06/29: continues improved, taking meds. continue current mgmt. 06/30: refused morning VPA, wants all VPA at HS. aware this will mean ER formulation, large pills, would like to change nevertheless. remains improved from several days ago, focused on when he might be able to discharge. 07/05 continue tx. 07/06 plan to give ADORNO prolixin 25mg IM qmonthly tomorrow. plan for d/c next Friday 07/07 received ADORNO prolixin 25mg IM [id number]. continue oral prolixin for next 2 weeks. 07/08 add cogentin 1mg po BID. lower risperidone 1mg po BID due to dyskinesia. 07/11/2023: Continue current regimen and plans Reason for continued inpatient stay Substantial Risk for: med/psych decompensation Time Spent With Patient Time: Total time managing care of this patient today ____ minutes.
[2023-07-11 20:00] VITALS: BP 125/57; PULSE 76; RESP 18; TEMP 36.4; O2SAT 97
[2023-07-11] MEDS: Tamsulosin HCL 0.4 MG CAPSULE PO (21:13)
[2023-07-11] MEDS: Atorvastatin Calcium 40 MG TABLET PO (21:13)
[2023-07-11] MEDS: Divalproex Sodium ER 500 MG TAB.ER.24H 1000 MG PO (21:13)
[2023-07-12] MEDS: Levothyroxine Sodium 25 MCG TABLET PO (05:30)
[2023-07-12 08:00] VITALS: BP 137/68; PULSE 78; RESP 18; TEMP 36.7; O2SAT 98
[2023-07-12] MEDS: Benztropine Mesylate 1 MG TABLET PO ×2 (08:22→20:20)
[2023-07-12] MEDS: Magnesium Oxide 400 MG TABLET PO ×2 (08:22→17:13)
[2023-07-12] MEDS: Ferrous Sulfate 324 MG TABLET.DR PO (08:22)
[2023-07-12] MEDS: Loratadine 10 MG TABLET PO (08:22)
[2023-07-12] MEDS: Apixaban 5 MG TABLET PO ×2 (08:22→20:20)
[2023-07-12] MEDS: risperiDONE 1 MG TABLET PO ×2 (08:22→20:20)
[2023-07-12] MEDS: Mupirocin 2 % Oint 22 GM TUBE 1 APPL TOPICAL ×2 (08:26→20:20)
[2023-07-12] MEDS: Fluticasone/Umeclidinium/Vilanterol 100/62.5/25 BLST.W.DEV 1 PUFF INHALE (08:28)
--- NOTE | 2023-07-12 09:12 | P.PNPSI_ITS ---
Subjective Subjective Date of Service: 07/12/23 Reason For Visit: Psychosis Subjective Notes: Section 8 Interim History: Pt slept through the night. His thought process is much more coherent. He continues to apologize stating that he did not try to expose himself to others. Much less paranoia. No behavioral concerns. he has appropriate question about medications but still not convinced that he has a mental illness, that he needs medications and this being reason for his improvement. 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 Insight/jdugment: impaired x 2. memory/cog: alert, not oriented to situation. Mood Description: Withdrawn Affect Description: Constricted Patient Cognition Impaired: Yes Ability to Follow Directions: Good Speech Pattern: Clear Diagnostics Vital Signs (24Hr): Vital Signs - 24 hr 07/11/23 20:00 07/12/23 08:00 Temperature 97.6 F 98.0 F Pulse Rate 76 78 Respiratory Rate 18 18 Blood Pressure 125/57 L 137/68 Pulse Oximetry 97 98 Oxygen Delivery Method Room Air Room Air BMI result Body Mass Index 25.7 Labs 06/04/23 02:14 06/04/23 02:14 Medications Medications Current Medications Acetaminophen (Acetaminophen 325 Mg Tablet) 650 mg PO Q6H PRN PRN Reason: Headache/Pain Mild Scale (1-3) Last Admin: 06/26/23 08:13 Dose: 650 mg Al Hydroxide/Mg Hydroxide (Magnesium Hydrox/Alum Hydrox 30 Ml Oral.Susp) 30 ml PO Q6H PRN PRN Reason: Heartburn/Nausea Last Admin: 07/11/23 06:22 Dose: 30 ml Albuterol Sulfate (Albuterol Sulfate 90 Mcg 8 Gm Inhaler) 1 puff INHALE RQ4H PRN PRN Reason: Wheezing/SOB Apixaban (Apixaban 5 Mg Tablet) 5 mg PO BID [facility] Last Admin: 07/12/23 08:22 Dose: 5 mg Atorvastatin Calcium (Atorvastatin Calcium 40 Mg Tablet) 40 mg PO BEDTIME [facility] Last Admin: 07/11/23 21:13 Dose: 40 mg Benztropine Mesylate (Benztropine Mesylate 1 Mg Tablet) 1 mg PO BID [facility] Last Admin: 07/12/23 08:22 Dose: 1 mg Divalproex Sodium (Divalproex Sodium Er 500 Mg Tab.Er.24h) 1,000 mg PO BEDTIME [facility] Last Admin: 07/11/23 21:13 Dose: 1,000 mg Ferrous Sulfate (Ferrous Sulfate 324 Mg Tablet.Dr) 324 mg PO DAILY [facility] Last Admin: 07/12/23 08:22 Dose: 324 mg Fluphenazine Decanoate (Fluphenazine Decanoate 25 Mg/Ml 5 Ml Vial) 25 mg IM Q28D [facility] Last Admin: 07/08/23 10:50 Dose: 25 mg Fluphenazine HCl (Fluphenazine Hcl 2.5 Mg/Ml 10 Ml Vial) 5 mg IM BID PRN PRN Reason: if refuses oral prolixin/rispe Fluticasone/Umeclidinium/Vilanterol (Fluticasone/Umeclidinium/Vilanterol 100/62.5/25 Blst.W.Dev) 1 puff INHALE RDAILY [facility] Last Admin: 07/12/23 08:28 Dose: 1 puff Hydroxyzine HCl (Hydroxyzine Hcl 25 Mg Tablet) 25 mg PO Q6H PRN PRN Reason: Anxiety Last Admin: 07/09/23 20:25 Dose: 25 mg Levothyroxine Sodium (Levothyroxine Sodium 25 Mcg Tablet) 25 mcg PO DAILY@0600 [facility] Last Admin: 07/12/23 05:30 Dose: 25 mcg Loratadine (Loratadine 10 Mg Tablet) 10 mg PO DAILY [facility] Last Admin: 07/12/23 08:22 Dose: 10 mg Magnesium Hydroxide (Milk Of Magnesia 30 Ml Oral.Susp) 30 ml PO DAILY PRN PRN Reason: Constipation Last Admin: 06/20/23 16:30 Dose: 30 ml Magnesium Oxide (Magnesium Oxide 400 Mg Tablet) 400 mg PO BIDPC [facility] Last Admin: 07/12/23 08:22 Dose: 400 mg Mupirocin (Mupirocin 2 % Oint 22 Gm Tube) 1 appl TOPICAL BID [facility]; Protocol Last Admin: 07/12/23 08:26 Dose: 1 appl Ondansetron HCl (Ondansetron Odt 4 Mg Tab.Rapdis) 4 mg TRANSLINGU Q6H PRN PRN Reason: Vomiting Phenazopyridine HCl (Phenazopyridine Hcl 200 Mg Tablet) 200 mg PO TID PRN PRN Reason: dysuria Risperidone (Risperidone 1 Mg Tablet) 1 mg PO BID [facility] Last Admin: 07/12/23 08:22 Dose: 1 mg Tamsulosin HCl (Tamsulosin Hcl 0.4 Mg Capsule) 0.4 mg PO BEDTIME [facility] Last Admin: 07/11/23 21:13 Dose: 0.4 mg Allergies Allergies Allergy/AdvReac Type Severity Reaction Status Date / Time No Known Allergies Allergy Mild NOT Verified 06/03/23 18:57 APPLICABLE Assessment & Plan Assessment & Plan (1) Schizophrenia: Status: Acute Code(s): F20.9 - Schizophrenia, unspecified Plan Mr. Zaragoza is a 72 year-old male with hx of schizophrenia who was brought on a sect 12a due to pt exposing himself to the neighbors. Pt has been refusing medications at , becoming more agitated. On the unit, pt disorganized, refusing labs, selective about medications. PLAN 1. continue risperidone 2mg po BID. 2. filed sect 7/8. 06/11/2023 Patient not taking medication psychotic refusing medical care on section 7 may need to get abdominal CT scan patient recently had nausea vomiting seems to be somewhat better today concerns regarding incarcerated hernia patient not able to make medical decisions at this time refusing lab 06/12/2023 Somewhat more cooperative today did take 1 dose of Haldol encourage medication labs and vital signs no acute abdominal pain patient may need eventual guardianship for clarity regarding need for repair of quite significant inguinal hernia that impacts the patient's quality of life 06/13/2023 Patient may benefit from guardianship to make medical decisions Section [address] patient bizarre preoccupied Change Haldol to 10 mg bedtime 06/[address] hearing tomorrow. 06/14 risperidone 2mg po BID, back IM prolixin 5mg IM if pt refuses oral risperidone. Plan to do ADORNO of risperidone 06/15 continue tx. 06/16 continue tx. 06/17 add depakote 500mg po BID. prolixin 5mg po BID. 06/18 keep same treatment, encourage compliance. 06/19 keep same treatment 06/20 continue tx- plan for ADORNO this week 06/21 plan for ADORNO this week 06/22 continue tx. May try to change to prolixin as main antipsychotic. 06/23 give back IM if pt refuses either prolixin or risperidone. will try prolixin to be main antipsychotic as risperidone along only partially effective. 06/24 continue treatment plan 06/25: no changes 06/26: no changes 06/27: irritable, argumentative. states he has an appeal hearing scheduled, redirected to speak with his media assistant. taking meds, no substantial behavioral concerns. 06/28: taking meds. much less irritable and labile than yesterday. more organized, asking when he might be able to discharge. continue current mgmt. denying penile pain, no need for further w/u presently (no UTI). 06/29: continues improved, taking meds. continue current mgmt. 06/30: refused morning VPA, wants all VPA at HS. aware this will mean ER formulation, large pills, would like to change nevertheless. remains improved from several days ago, focused on when he might be able to discharge. 07/05 continue tx. 07/06 plan to give ADORNO prolixin 25mg IM qmonthly tomorrow. plan for d/c next Friday 07/07 received ADORNO prolixin 25mg IM [id number]. continue oral prolixin for next 2 weeks. 07/08 add cogentin 1mg po BID. lower risperidone 1mg po BID due to dyskinesia. 07/11/2023: Continue current regimen and plans 07/11 continue tx. dc tomorrow. Reason for continued inpatient stay Substantial Risk for: stable for discharge Time Spent With Patient Time: Total time managing care of this patient today ____ minutes.
--- NOTE | 2023-07-12 09:56 | PC.NURSE ---
pt refused urine collection after multiple attempts. VSS, no symptoms noted.
[2023-07-12] MEDS: Acetaminophen 325 MG TABLET 650 MG PO (17:15)
[2023-07-12 20:00] VITALS: BP 119/56; PULSE 74; RESP 16; TEMP 35; O2SAT 100
[2023-07-12] MEDS: Divalproex Sodium ER 500 MG TAB.ER.24H 1000 MG PO (20:20)
[2023-07-12] MEDS: Atorvastatin Calcium 40 MG TABLET PO (20:20)
[2023-07-12] MEDS: Tamsulosin HCL 0.4 MG CAPSULE PO (20:20)
[2023-07-13] MEDS: Levothyroxine Sodium 25 MCG TABLET PO (05:48)
[2023-07-13 08:00] VITALS: BP 116/56; PULSE 73; RESP 18; TEMP 36.4; O2SAT 100
--- NOTE | 2023-07-13 08:43 | P.DS_ITS ---
DS: Providers Provider Date of Service: 07/13/23 Date of admission: 06/04/23 14:27 Date of discharge: 07/13/23 Primary care physician: Bc Rascon MD Consults: 06/05/23 09:03 Consult to Urology Routine Consulting Provider: Viktor Holland Reason for consultation: hydrocele Has provider been notified: Yes 06/11/23 08:40 Consult to Hospitalist Routine Comment: Consulting Provider: Hospitalist Reason For Exam: frequent vomiting 06/28/23 18:21 Consult to Hospitalist Routine Comment: Consulting Provider: Hospitalist Reason For Exam: c/o burning in urethra on urination; UA unremarkab Discharging clinician: Brianda Caldwell DS: Diagnosis Discharge Diagnosis (1) Schizophrenia: Status: Acute DS: Medications Discharge Medications Home Medications: Home Medications ?Medication ?Instructions ?Recorded ?Confirmed acetaminophen 500 mg tablet 500 mg PO Q6H PRN Pain (Scale 06/25/21 06/05/23 (Acetaminophen Pain Relief) Score 1-3) risperidone 1 mg tablet (Risperdal) 0.5 mg PO QAM 10/29/21 06/06/23 albuterol sulfate 90 mcg/actuation 2 puff inhalation Q4H PRN 06/06/23 06/06/23 aerosol inhaler (Ventolin HFA) Shortness Of Breath Or Wheezing atorvastatin 40 mg tablet 40 mg PO QAM 06/06/23 06/06/23 benztropine 0.5 mg tablet 0.5 mg PO BEDTIME 06/06/23 06/06/23 demeclocycline 300 mg tablet 300 mg PO Q12H 06/06/23 06/06/23 dicyclomine 20 mg tablet 20 mg PO BID 06/06/23 06/06/23 ferrous sulfate 325 mg (65 mg 325 mg PO DAILY 06/06/23 06/06/23 iron) tablet fluticasone fur. 100 mcg-umeclid 1 ea inhalation DAILY 06/06/23 06/06/23 62.5 mcg-vilant 25 mcg inhalat.powder (Trelegy Ellipta) folic acid 1 mg tablet 1 mg PO QAM 06/06/23 06/06/23 levothyroxine 25 mcg tablet 25 mcg PO QAM 06/06/23 06/06/23 magnesium oxide 400 mg (241.3 mg 400 mg PO BID 06/06/23 06/06/23 magnesium) tablet risperidone 1 mg tablet 1.5 mg PO BEDTIME 06/06/23 06/06/23 tamsulosin 0.4 mg capsule 0.4 mg PO DAILY 06/06/23 06/06/23 warfarin 2 mg tablet 2 - 4 mg PO QPM 06/06/23 06/06/23 Mental Status Exam Mental Status Exam Narrative: Appearance: thin, much improved hygiene, in NAD Behavior: cooperative Psychomotor: no agitation or retardation noted Speech:more clear, regular rate/rhythm, spontaneous TP: more coherent, linear TC: looking forward to return to Mood: okay Affect: brighter SI: denies HI: denies VH/AH: no overt signs Delusions: much less paranoid ideas, some grandiose ideas of being a doctor but with much less intensity Insight/judgment: improving x 2. memory/cog: alert, oriented x 3. 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 Insight/jdugment: impaired x 2. memory/cog: alert, not oriented to situation. Data Data Completed and Pending Completed studies during hospitalization [Text1]: 06/04/23 Unknown Urine clean catch - Urine workman top Urine Culture - Final No growth. DS: Summary Hospital Course Hospital Course: Mr. Zaragoza is a 72 year-old male with hx of schizophrenia who resides at [facility]. Pt was sent to [facility] ED due to exposing himself to the neighbors. Collateral information gathered from supervisor vegetable farming Krystin who reports pt has b een refusing medications, presenting as more disorganized and combative. On the unit, pt presents as agitated, asking to leave. He thought process is disorganized and difficult to follow. He reports he knew Al Mulugeta and many things have happened. He has been exposing himself on the unit as well. He has been redirected to his room. 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 He has been masturbating and needed to be redirected to do so in the bathroom. He is refusing labs to check INR/PT in order to continue warfarin. He does not show understanding of his medical conditions nor is able to reason when discussing rationale for him to decline labs or other medications including warfarin. He denies SI/HI. He is disheveled and malodorous. He has an hernia enlarging scrotum which apparently was assessed last year by surgery but due to his underlying medical condition and risks including COPD and being on anticoagul ant, he was found not to be candidate for it. He denies any pain ingunal site. HOSPITAL COURSE On the unit, pt was admitted on a Sect 12b. He presented as guarded, irritable, combative at times. He presented with paranoid delusions, refusing medications stating he did not need any medications including for afib. His thought process was very disorganized and difficult to follow. He was intrusive with peers. Given the fact that he was refusing medical care due to his paranoid delusions and imminent harm to self if untreated, team decided to file for involuntary treatment. He was committed by the court. He was started on risperidone which was titrated. He continued to present psychotic and delusional, therefore, prolixin was added. He gradually presented as much less paranoid, started taking all her medications including medical medications. His thought process gradually became much more coherent and intelligible. He denied SI/HI. He was sleeping and eating well. He did have bilat resting and acting tremors. Dose of risperidone was decreased as it seems prolixin probably more effective argeting his delusions and psychosis. He was also started on cogentin 1mg po BID. He was increasingly more visible on the unit. His hygiene significantly improves. He was wearing casual clothing. No aggression towards self or others. We had meeting with director who reported pt appears in much improved condition and close to baseline.. Status at Discharge Cognitive/behavioral status at discharge: Pt with brighter, less paranoid delusions. No aggression towards self or others. No SI/HI. Sleeping and eating better. Much improved hygiene. No VH/AH. Functional status at discharge: independent ambulation Overall status at discharge: patient is progressing back to baseline Time Spent with Patient Time attestation: Total time managing care of this patient today _35___ minutes. Time spent: Greater than 30 minutes Discharge Plan Discharge Anticipated Discharge Date/Time: 07/13/23 08:51 Patient Disposition: Home, Self-Care Discharge Diagnosis: Schizophrenia Referrals: Bc Hunter MD [Primary Care Provider] - 07/19/23 9:30 am (Your follow up has been scheduled for Wednesday07/19/23 at 9:30am. ) Discharge Medications: New Uzedy 100 mg/0.28 mL suspension,extended rel syring 100 mg subcut QMONTH Qty: 0.28 0RF loratadine 10 mg Tablet 10 mg PO DAILY Qty: 30 0RF tamsulosin 0.4 mg Capsule 0.4 mg PO BEDTIME Qty: 30 0RF albuterol sulfate [Ventolin HFA] 90 mcg/actuation Hfa Aerosol Inhaler 1 puff inhalation RQ4H PRN (Reason: Wheezing/SOB) Qty: 6.7 0RF Eliquis 5 mg Tablet 5 mg PO BID Qty: 60 0RF ferrous sulfate 324 mg (65 mg iron) Tablet,Delayed Release (Dr/Ec) 324 mg PO DAILY Qty: 30 0RF atorvastatin 40 mg Tablet 40 mg PO BEDTIME Qty: 30 0RF divalproex 500 mg Tablet Extended Release 24 Hr 1,000 mg PO BEDTIME Qty: 60 0RF benztropine 1 mg Tablet 1 mg PO BID Qty: 60 0RF fluphenazine decanoate 25 mg/mL Solution 25 mg IM Q28D Qty: 5 0RF magnesium oxide 400 mg (241.3 mg magnesium) Tablet 400 mg PO BIDPC Qty: 60 0RF risperidone 1 mg Tablet 1 mg PO BID Qty: 60 0RF levothyroxine 25 mcg Tablet 25 mcg PO DAILY@0600 Qty: 30 0RF Trelegy Ellipta 100-62.5-25 mcg Blister With Device 1 inh inhalation RDAILY Qty: 28 0RF phenazopyridine 200 mg Tablet 200 mg PO TID PRN (Reason: dysuria) Qty: 90 0RF mupirocin 2 % Ointment 1 appl topical BID Qty: 15 0RF Protocol: Apply to: Apply to: scalp lesions Discontinued atorvastatin 40 mg tablet 40 mg PO QAM benztropine 0.5 mg tablet 0.5 mg PO BEDTIME levothyroxine 25 mcg tablet 25 mcg PO QAM magnesium oxide 400 mg (241.3 mg magnesium) tablet 400 mg PO BID tamsulosin 0.4 mg capsule 0.4 mg PO DAILY dicyclomine 20 mg tablet 20 mg PO BID ferrous sulfate 325 mg (65 mg iron) tablet 325 mg PO DAILY warfarin 2 mg tablet 2 - 4 mg PO QPM demeclocycline 300 mg tablet 300 mg PO Q12H folic acid 1 mg tablet 1 mg PO QAM albuterol sulfate [Ventolin HFA] 90 mcg/actuation HFA aerosol inhaler 2 puff INHALATION Q4H PRN (Reason: Shortness Of Breath Or Wheezing) risperidone 1 mg tablet 1.5 mg PO BEDTIME Trelegy Ellipta 100-62.5-25 mcg blister with device 1 ea INHALATION DAILY acetaminophen [Acetaminophen Pain Relief] 500 mg tablet 500 mg PO Q6H PRN (Reason: Pain (Scale Score 1-3)) risperidone [Risperdal] 1 mg tablet 0.5 mg PO QAM Discharge Orders: Discharge Order (Routine); Ordered 07/13/23 Ordered By: Brianda Caldwell Diet: Regular diet Activity on Discharge: As tolerated Stand Alone Forms: Patient Portal Discharge page Print Language: Lithuanian Care Plan Goals: 1. Maintain mood 2. No SI/HI 3. less delusions, less AH/VH. 4. No aggression towards self or others. Health Concerns: follow up with PCP Plan of Treatment: 1. take medications as prescribed 2. go to nearest ED or call 911 in event of emergency Assessment: Pt with much less delusions, less psychosis. No SI/HI. No aggression towards self or others. Sleeping well.
[2023-07-13] MEDS: Magnesium Oxide 400 MG TABLET PO (09:12)
[2023-07-13] MEDS: Benztropine Mesylate 1 MG TABLET PO (09:12)
[2023-07-13] MEDS: risperiDONE 1 MG TABLET PO (09:12)
[2023-07-13] MEDS: Apixaban 5 MG TABLET PO (09:12)
[2023-07-13] MEDS: Fluticasone/Umeclidinium/Vilanterol 100/62.5/25 BLST.W.DEV 1 PUFF INHALE (09:12)
[2023-07-13] MEDS: Loratadine 10 MG TABLET PO (09:12)
[2023-07-13] MEDS: Ferrous Sulfate 324 MG TABLET.DR PO (09:13)
[2023-07-13] MEDS: Mupirocin 2 % Oint 22 GM TUBE 1 APPL TOPICAL (09:17)
[2023-07-13] MEDS: Magnesium Hydrox/Alum Hydrox 30 ML ORAL.SUSP PO (11:06)
== END 2023-07-13 11:35 | disposition home or self-care (01) | DRG 885 ==
LOC: HO.ED 06-04 14:09 → HO.PGERI 06-04 14:31
PROVIDERS: Psychiatry & Neurology Psychiatry; Admitting Provider Social Worker; Emergency Provider Emergency Medicine; PCP Internal Medicine; Visit Provider Social Worker
DX: F20.9 Schizophrenia, unspecified (principal); J44.9 Chronic obstructive pulmonary disease, unspecified; K40.90 Unilateral inguinal hernia, without obstruction or gangrene, not specified as recurrent; I48.91 Unspecified atrial fibrillation; F03.90 Unspecified dementia, unspecified severity, without behavioral disturbance, psychotic disturbance, mood disturbance, and anxiety; M24.542 Contracture, left hand; E03.9 Hypothyroidism, unspecified; Z95.2 Presence of prosthetic heart valve; Z20.822 Contact with and (suspected) exposure to COVID-19; Z91.148 Patient's other noncompliance with medication regimen for other reason; Z79.51 Long term (current) use of inhaled steroids; Z79.899 Other long term (current) drug therapy
CPT/HCPCS: 36415; 80048; 80076; 80307; 81001; 81003; 82140; 85025; 87086; 87635; 92526; 92610; 93005; 99283; 99285; J2680; S9485

== ENCOUNTER → 2023-06-04 12:08 | Outpatient (BNV) | payer MEDICARE, MEDICAID, SELFPAY | PROVIDERS: Admitting Provider Social Worker; Emergency Provider Emergency Medicine; Visit Provider Internal Medicine Cardiovascular Disease | DX: I44.0 Atrioventricular block, first degree (principal) | CPT/HCPCS: 93010 ==

== ENCOUNTER → 2023-06-04 14:27 | Outpatient (BNV) | payer MEDICARE, MEDICAID, SELFPAY | PROVIDERS: Admitting Provider Social Worker; Emergency Provider Emergency Medicine; PCP Internal Medicine; Visit Provider Psychiatry & Neurology Psychiatry | DX: F20.1 Disorganized schizophrenia (principal) | CPT/HCPCS: 99232 ==

== ENCOUNTER → 2023-06-04 14:27 | Outpatient (BNV) | payer MEDICARE, MEDICAID, SELFPAY | PROVIDERS: Admitting Provider Social Worker; Emergency Provider Emergency Medicine; Visit Provider Physician Assistant | DX: S00.01XA Abrasion of scalp, initial encounter (principal); M24.542 Contracture, left hand | CPT/HCPCS: 99222; 99499 ==

== ENCOUNTER → 2023-06-04 14:27 | Outpatient (BNV) | payer MEDICARE, MEDICAID, SELFPAY | PROVIDERS: Admitting Provider Social Worker; Emergency Provider Emergency Medicine; Visit Provider Social Worker | DX: F20.1 Disorganized schizophrenia (principal) | CPT/HCPCS: 90792; 99231; 99232; 99239 ==

== ENCOUNTER → 2023-07-20 13:49 | Outpatient (BNVA) | payer MEDICARE, MEDICAID, SELFPAY | PROVIDERS: PCP Internal Medicine; Visit Provider Internal Medicine ==

== ENCOUNTER 2023-07-23 10:23 | Outpatient (AMB) | payer MEDICARE, MEDICAID, SELFPAY ==
[2023-07-23 10:48] LABS: Prothrombin Time Whole Bld POC 18.7 sec (11.1-13.5); ~PT, ~INR - Anti Coag Clinic 1.6 (0.9-1.1)
--- NOTE | 2023-07-23 11:06 | MHC.OFFVISCO ---
Intake Intake Visit Reasons: Anticoagulation Allergies No Known Allergies Allergy (Mild, Verified 07/23/23 10:41) NOT APPLICABLE Medication List - Last Reconciled 07/23/23 by Raissa Hull RN albuterol sulfate 90 mcg/actuation (Ventolin HFA) 1 puff inhalation RQ4H PRN apixaban (Eliquis) 5 mg PO BID atorvastatin 40 mg PO BEDTIME benztropine 1 mg PO BID cholecalciferol (vitamin D3) (Vitamin D3) 25 mcg PO QAM dicyclomine 20 mg PO BID divalproex ER 1,000 mg (2 x 500 mg) PO BEDTIME ferrous sulfate 324 mg PO DAILY fluphenazine decanoate 25 mg IM Q28D aribjodprvb-iubgwbsep-ofjavqzl 100-62.5-25 mcg (Trelegy Ellipta) 1 inh inhalation RDAILY levothyroxine 25 mcg PO DAILY@0600 loratadine 10 mg PO DAILY magnesium oxide 400 mg PO BIDPC mupirocin 2% 1 appl See Protocol topical BID pantoprazole 40 mg PO BID phenazopyridine 200 mg PO TID PRN risperidone 1 mg PO BID tamsulosin 0.4 mg PO BEDTIME Nursing Note INR 1.6?? out of therapeutic range Medications and supplements reviewed Patient status: Pt recovering from pysch admission with med adjustment, pt appropriate behavior during visit, he had been on Eliquis due to behavioral issues of not allowing for lab draws or POC - he has remained on eliquis while bridging back to warfarin. Call to PCP with INR results - spoke with JUSTINE Luna to report pt status - That pt no on warfarin x 3 days and if Eliquis can be stopped and possible switch to lovenox -due to renal function may need lower dose Medications or supplements: updated with Oralia Mazariegos WORLDWIDE CHIEF CREATIVE OFFICER 2 days ago Diet: fair according to JUKEBOX ROUTEMAN Denies any signs and symptoms of bleeding or clotting or unusual bruising Bleeding, bruising, clotting discussed Nutritional guidance given: try smaller portion and offer healthy snacks, avoid greens today, try to eat a mix of fruits and vegetables Dose: keep same for now 2mg Wednesday and Wednesday/ 4mg all other days F/U INR Date : 07/28/23?? Patient JUKEBOX ROUTEMAN verbalizing understanding of instructions given. 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
== END 2023-07-23 11:13 | disposition home or self-care (01) ==
LOC: HO.ACS 10:23
PROVIDERS: PCP Registered Nurse; Visit Provider Internal Medicine
DX: Z79.01 Long term (current) use of anticoagulants (principal)

== ENCOUNTER → 2023-07-23 10:23 | Outpatient (BNVA) | payer MEDICARE, MEDICAID, SELFPAY | PROVIDERS: PCP Registered Nurse; Visit Provider Internal Medicine | DX: Z95.2 Presence of prosthetic heart valve (principal); Z51.81 Encounter for therapeutic drug level monitoring; Z79.01 Long term (current) use of anticoagulants | CPT/HCPCS: 85610; 99211 ==

== ENCOUNTER 2023-07-28 11:45 | Outpatient (AMB) | payer MEDICARE, MEDICAID, SELFPAY ==
[2023-07-28 11:53] LABS: Prothrombin Time Whole Bld POC 45.4 sec (11.1-13.5); ~PT, ~INR - Anti Coag Clinic 3.8 (0.9-1.1)
--- NOTE | 2023-07-28 11:59 | MHC.OFFVISCO ---
Intake Intake Visit Reasons: Anticoagulation Allergies No Known Allergies Allergy (Mild, Verified 07/28/23 11:45) NOT APPLICABLE Medication List - Last Reconciled 07/28/23 by Magdalena Echeverria RN albuterol sulfate 90 mcg/actuation (Ventolin HFA) 1 puff inhalation RQ4H PRN apixaban (Eliquis) 5 mg PO BID atorvastatin 40 mg PO BEDTIME benztropine 1 mg PO BID cholecalciferol (vitamin D3) (Vitamin D3) 25 mcg PO QAM dicyclomine 20 mg PO BID divalproex ER 1,000 mg (2 x 500 mg) PO BEDTIME ferrous sulfate 324 mg PO DAILY fluphenazine decanoate 25 mg IM Q28D xqjlvqnrvie-cpecxfwvc-rwuovmtj 100-62.5-25 mcg (Trelegy Ellipta) 1 inh inhalation RDAILY levothyroxine 25 mcg PO DAILY@0600 loratadine 10 mg PO DAILY magnesium oxide 400 mg PO BIDPC mupirocin 2% 1 appl See Protocol topical BID pantoprazole 40 mg PO BID phenazopyridine 200 mg PO TID PRN risperidone 1 mg PO BID tamsulosin 0.4 mg PO BEDTIME warfarin See Protocol 2 mg orally 4MG DAILY OR DIRECTED; 4MG DAILY OR DIRECTED Nursing Note PT.DENIES ANY CP,SOB,DIET/MED CHANGES,FALLS OR SX OF BLEEDING. HOLD WARFARIN TODAY THEN RESUME USUAL DOSE AND FOLLOW-UP IN 1 WEEK. GOOD UNDERSTANDING OF DOSING INST.BY BARREL RIBS SOLDERER Anti-Coag Initial Assessment Social Hx Patient Tobacco Use Status: Refuse Tobacco use screen alcohol intake: never Coding Level of Care Code Est Patient Level 1 Diagnoses Current use of anticoagulant therapy Z79.01 Assessment & Plan Assessment & Plan (1) Current use of anticoagulant therapy: Code(s): Z79.01 - retirement (current) use of anticoagulants Category: Medical
== END 2023-07-28 12:01 | disposition home or self-care (01) ==
LOC: HO.ACS 11:45
PROVIDERS: PCP Registered Nurse; Visit Provider Internal Medicine
DX: Z79.01 Long term (current) use of anticoagulants (principal)

== ENCOUNTER → 2023-07-28 11:45 | Outpatient (BNVA) | payer MEDICARE, MEDICAID, SELFPAY | PROVIDERS: PCP Registered Nurse; Visit Provider Internal Medicine | DX: Z95.2 Presence of prosthetic heart valve (principal); Z51.81 Encounter for therapeutic drug level monitoring; Z79.01 Long term (current) use of anticoagulants | CPT/HCPCS: 85610; 99211 ==

== ENCOUNTER 2023-08-04 14:06 | Outpatient (AMB) | payer MEDICARE, MEDICAID, SELFPAY ==
[2023-08-04 14:14] LABS: Prothrombin Time Whole Bld POC 56.5 sec (11.1-13.5); ~PT, ~INR - Anti Coag Clinic 4.7 (0.9-1.1)
--- NOTE | 2023-08-04 14:24 | MHC.OFFVISCO ---
Intake Intake Visit Reasons: Anticoagulation Allergies No Known Allergies Allergy (Mild, Verified 08/04/23 14:07) NOT APPLICABLE Medication List - Last Reconciled 08/04/23 by Magdalena Echeverria RN albuterol sulfate 90 mcg/actuation (Ventolin HFA) 1 puff inhalation RQ4H PRN apixaban (Eliquis) 5 mg PO BID atorvastatin 40 mg PO BEDTIME benztropine 1 mg PO BID cholecalciferol (vitamin D3) (Vitamin D3) 25 mcg PO QAM dicyclomine 20 mg PO BID divalproex ER 1,000 mg (2 x 500 mg) PO BEDTIME ferrous sulfate 324 mg PO DAILY fluphenazine decanoate 25 mg IM Q28D ioxpjamfexu-dzeyibras-teziiakj 100-62.5-25 mcg (Trelegy Ellipta) 1 inh inhalation RDAILY levothyroxine 25 mcg PO DAILY@0600 loratadine 10 mg PO DAILY magnesium oxide 400 mg PO BIDPC mupirocin 2% 1 appl See Protocol topical BID pantoprazole 40 mg PO BID phenazopyridine 200 mg PO TID PRN risperidone 1 mg PO BID tamsulosin 0.4 mg PO BEDTIME warfarin See Protocol 2 mg orally 4MG DAILY OR DIRECTED; 4MG DAILY OR DIRECTED Nursing Note 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 PT.DENIES ANY CHEST PAIN AND SOB SUBSIDED AFTER SHORT REST. NO SX OF BLEEDING OR DIET/MED CHANGES. HOLD WARFARIN TODAY AND DECREASE TO 2MGM TOMORROW AND RECHECK INR ON 08/05. GOOD UNDERSTANDING VERB.BY SENIOR RESEARCH EXECUTIVE Anti-Coag Initial Assessment Social Hx Patient Tobacco Use Status: Refuse Tobacco use screen alcohol intake: never Coding Level of Care Code Est Patient Level 1 Diagnoses Current use of anticoagulant therapy Z79.01 Assessment & Plan Assessment & Plan (1) Current use of anticoagulant therapy: Code(s): Z79.01 - half-way (current) use of anticoagulants Category: Medical
== END 2023-08-04 14:29 | disposition home or self-care (01) ==
LOC: HO.ACS 14:06
PROVIDERS: PCP Registered Nurse; Visit Provider Internal Medicine
DX: Z79.01 Long term (current) use of anticoagulants (principal)

== ENCOUNTER → 2023-08-04 14:06 | Outpatient (BNVA) | payer MEDICARE, MEDICAID, SELFPAY | PROVIDERS: PCP Registered Nurse; Visit Provider Internal Medicine | DX: Z95.2 Presence of prosthetic heart valve (principal); Z79.01 Long term (current) use of anticoagulants; Z51.81 Encounter for therapeutic drug level monitoring | CPT/HCPCS: 85610; 99211 ==

== ENCOUNTER 2023-08-06 13:37 | Outpatient (AMB) | payer MEDICARE, MEDICAID, SELFPAY ==
--- NOTE | 2023-08-06 13:55 | MHC.OFFVISCO ---
Intake Intake Visit Reasons: Anticoagulation Allergies No Known Allergies Allergy (Mild, Verified 08/06/23 13:38) NOT APPLICABLE Medication List - Last Reconciled 08/06/23 by Raissa Hull RN albuterol sulfate 90 mcg/actuation (Ventolin HFA) 1 puff inhalation RQ4H PRN atorvastatin 40 mg PO BEDTIME benztropine 1 mg PO BID cholecalciferol (vitamin D3) (Vitamin D3) 25 mcg PO QAM dicyclomine 20 mg PO BID divalproex ER 1,000 mg (2 x 500 mg) PO BEDTIME ferrous sulfate 324 mg PO DAILY fluphenazine decanoate 25 mg IM Q28D hujqbdygnbg-gilkduqgy-jhqacdep 100-62.5-25 mcg (Trelegy Ellipta) 1 inh inhalation RDAILY levothyroxine 25 mcg PO DAILY@0600 loratadine 10 mg PO DAILY magnesium oxide 400 mg PO BIDPC mupirocin 2% 1 appl See Protocol topical BID pantoprazole 40 mg PO BID phenazopyridine 200 mg PO TID PRN risperidone 1 mg PO BID tamsulosin 0.4 mg PO BEDTIME warfarin See Protocol 2 mg orally 4MG DAILY OR DIRECTED; 4MG DAILY OR DIRECTED Nursing Note INR: 2.0 in therapeutic range Medications and supplements reviewed No changes in health, diet, medications, or supplements, Denies any signs and symptoms of bleeding or bruising or clotting. Bleeding, bruising, clotting discussed Nutritional guidance given - EAT A MIX OF FRUITS AND VEGETABLES Dose: 2MG X 3 DAYS/ 4MG X 4 DAYS - DOSING LOWER DUE TO DECREASED APPETITE AND TRENDING UP INRS F/U INR: 08/18/23 Patient verbalizes understanding of instructions given Anti-Coag Initial Assessment Social Hx Patient Tobacco Use Status: Refuse Tobacco use screen alcohol intake: never Coding Level of Care Code Est Patient Level 1 Diagnoses Current use of anticoagulant therapy Z79.01 Results AMB INR Fingerstick AMB INR Fingerstick 2.0 Last Edit by Raissa Hull RN on 08/06/23 13:45 MANUAL ENTRY Assessment & Plan Assessment & Plan (1) Current use of anticoagulant therapy: Code(s): Z79.01 - retirement (current) use of anticoagulants Category: Medical
[2023-08-06 15:48] LABS: Prothrombin Time Whole Bld POC 23.7 sec (11.1-13.5)
== END 2023-08-06 13:58 | disposition home or self-care (01) ==
LOC: HO.ACS 13:37
PROVIDERS: PCP Registered Nurse; Visit Provider Internal Medicine
DX: Z79.01 Long term (current) use of anticoagulants (principal)

== ENCOUNTER → 2023-08-06 13:37 | Outpatient (BNVA) | payer MEDICARE, MEDICAID, SELFPAY | PROVIDERS: PCP Registered Nurse; Visit Provider Internal Medicine | DX: Z95.2 Presence of prosthetic heart valve (principal); Z51.81 Encounter for therapeutic drug level monitoring; Z79.01 Long term (current) use of anticoagulants | CPT/HCPCS: 85610; 99211 ==

== ENCOUNTER 2023-08-18 11:16 | Outpatient (AMB) | payer MEDICARE, MEDICAID, SELFPAY ==
--- NOTE | 2023-08-18 11:32 | MHC.OFFVISCO ---
Intake Intake Visit Reasons: Anticoagulation Allergies No Known Allergies Allergy (Mild, Verified 08/18/23 11:26) NOT APPLICABLE Medication List - Last Reconciled 08/18/23 by Della Isabel RN albuterol sulfate 90 mcg/actuation (Ventolin HFA) 1 puff inhalation RQ4H PRN atorvastatin 40 mg PO BEDTIME benztropine 1 mg PO BID cholecalciferol (vitamin D3) (Vitamin D3) 25 mcg PO QAM dicyclomine 20 mg PO BID divalproex ER 1,000 mg (2 x 500 mg) PO BEDTIME ferrous sulfate 324 mg PO DAILY fluphenazine decanoate 25 mg IM Q28D lolepexhxpo-wigrixpll-dgkgnzyy 100-62.5-25 mcg (Trelegy Ellipta) 1 inh inhalation RDAILY levothyroxine 25 mcg PO DAILY@0600 loratadine 10 mg PO DAILY magnesium oxide 400 mg PO BIDPC mupirocin 2% 1 appl See Protocol topical BID pantoprazole 40 mg PO BID phenazopyridine 200 mg PO TID PRN risperidone 1 mg PO BID tamsulosin 0.4 mg PO BEDTIME warfarin See Protocol 2 mg orally 4MG DAILY OR DIRECTED; 4MG DAILY OR DIRECTED Nursing Note INR: 2.1-in therapeutic range of 2-3 Medications and supplements reviewed No changes in health, diet, medications, or supplements, Denies any signs and symptoms of bleeding or bruising or clotting. 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
[2023-08-18 11:33] LABS: Prothrombin Time Whole Bld POC 24.8 sec (11.1-13.5); ~PT, ~INR - Anti Coag Clinic 2.1 (0.9-1.1)
== END 2023-08-18 11:41 | disposition home or self-care (01) ==
LOC: HO.ACS 11:16
PROVIDERS: PCP Registered Nurse; Visit Provider Internal Medicine
DX: Z79.01 Long term (current) use of anticoagulants (principal)

== ENCOUNTER → 2023-08-18 11:16 | Outpatient (BNVA) | payer MEDICARE, MEDICAID, SELFPAY | PROVIDERS: PCP Registered Nurse; Visit Provider Internal Medicine | DX: Z95.2 Presence of prosthetic heart valve (principal); Z79.01 Long term (current) use of anticoagulants; Z51.81 Encounter for therapeutic drug level monitoring | CPT/HCPCS: 85610; 99211 ==

== ENCOUNTER 2023-09-01 11:12 | Outpatient (AMB) | payer MEDICARE, MEDICAID, SELFPAY ==
[2023-09-01 11:19] LABS: Prothrombin Time Whole Bld POC 29.9 sec (11.1-13.5); ~PT, ~INR - Anti Coag Clinic 2.5 (0.9-1.1)
--- NOTE | 2023-09-01 11:24 | MHC.OFFVISCO ---
Intake Intake Visit Reasons: Anticoagulation Allergies No Known Allergies Allergy (Mild, Verified 09/01/23 11:13) NOT APPLICABLE Medication List - Last Reconciled 09/01/23 by Magdalena Echeverria RN albuterol sulfate 90 mcg/actuation (Ventolin HFA) 1 puff inhalation RQ4H PRN atorvastatin 40 mg PO BEDTIME benztropine 1 mg PO BID cholecalciferol (vitamin D3) (Vitamin D3) 25 mcg PO QAM dicyclomine 20 mg PO BID divalproex ER 1,000 mg (2 x 500 mg) PO BEDTIME ferrous sulfate 324 mg PO DAILY fluphenazine decanoate 25 mg IM Q28D [id number]-wcgkuvymm-hcihaoqa 100-62.5-25 mcg (Trelegy Ellipta) 1 inh inhalation RDAILY levothyroxine 25 mcg PO DAILY@0600 loratadine 10 mg PO DAILY magnesium oxide 400 mg PO BIDPC mupirocin 2% 1 appl See Protocol topical BID pantoprazole 40 mg PO BID phenazopyridine 200 mg PO TID PRN risperidone 1 mg PO BID tamsulosin 0.4 mg PO BEDTIME warfarin See Protocol 2 mg orally 4MG DAILY OR DIRECTED; 4MG DAILY OR DIRECTED Nursing Note NO CP,SOB,DIET/MED CHANGES,FALLS OR SX OF BLEEDING. CONTINUE PRESENT DOSE AND FOLLOW-UP IN 3 WEEKS GOOD UNDERSTANDING OF DOSING INSTRS.BY JOB PRINTER WITH PT. 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
--- NOTE | 2023-09-01 11:24 | MHC.OFFVISCO ---
Intake Intake Visit Reasons: Anticoagulation Allergies No Known Allergies Allergy (Mild, Verified 09/01/23 11:13) NOT APPLICABLE Medication List - Last Reconciled 09/01/23 by Magdalena Echeverria RN albuterol sulfate 90 mcg/actuation (Ventolin HFA) 1 puff inhalation RQ4H PRN atorvastatin 40 mg PO BEDTIME benztropine 1 mg PO BID cholecalciferol (vitamin D3) (Vitamin D3) 25 mcg PO QAM dicyclomine 20 mg PO BID divalproex ER 1,000 mg (2 x 500 mg) PO BEDTIME ferrous sulfate 324 mg PO DAILY fluphenazine decanoate 25 mg IM Q28D glvmmuynwix-jetmypjke-focgpdnc 100-62.5-25 mcg (Trelegy Ellipta) 1 inh inhalation RDAILY levothyroxine 25 mcg PO DAILY@0600 loratadine 10 mg PO DAILY magnesium oxide 400 mg PO BIDPC mupirocin 2% 1 appl See Protocol topical BID pantoprazole 40 mg PO BID phenazopyridine 200 mg PO TID PRN risperidone 1 mg PO BID tamsulosin 0.4 mg PO BEDTIME warfarin See Protocol 2 mg orally 4MG DAILY OR DIRECTED; 4MG DAILY OR DIRECTED Nursing Note NO CP,SOB,DIET/MED CHANGES,FALLS OR SX OF BLEEDING. CONTINUE PRESENT DOSE AND FOLLOW-UP IN 3 WEEKS GOOD UNDERSTANDING OF DOSING INSTRS.BY DIRECTOR GEOTHERMAL OPERATIONS WITH PT. 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
== END 2023-09-01 11:25 | disposition home or self-care (01) ==
LOC: HO.ACS 11:12
PROVIDERS: PCP Registered Nurse; Visit Provider Internal Medicine
DX: Z79.01 Long term (current) use of anticoagulants (principal)

== ENCOUNTER → 2023-09-01 11:12 | Outpatient (BNVA) | payer MEDICARE, MEDICAID, SELFPAY | PROVIDERS: PCP Registered Nurse; Visit Provider Internal Medicine | DX: Z95.2 Presence of prosthetic heart valve (principal); Z79.01 Long term (current) use of anticoagulants; Z51.81 Encounter for therapeutic drug level monitoring | CPT/HCPCS: 85610; 99211 ==

== ENCOUNTER 2023-09-22 10:58 | Outpatient (AMB) | payer MEDICARE, MEDICAID, SELFPAY ==
[2023-09-22 11:05] LABS: Prothrombin Time Whole Bld POC 25.6 sec (11.1-13.5); ~PT, ~INR - Anti Coag Clinic 2.1 (0.9-1.1)
--- NOTE | 2023-09-22 11:13 | MHC.OFFVISCO ---
Intake Intake Visit Reasons: Anticoagulation Allergies No Known Allergies Allergy (Mild, Verified 09/22/23 11:01) NOT APPLICABLE Medication List - Last Reconciled 09/22/23 by Magdalena Echeverria RN albuterol sulfate 90 mcg/actuation (Ventolin HFA) 1 puff inhalation RQ4H PRN atorvastatin 40 mg PO BEDTIME benztropine 1 mg PO BID cholecalciferol (vitamin D3) (Vitamin D3) 25 mcg PO QAM dicyclomine 20 mg PO BID divalproex ER 1,000 mg (2 x 500 mg) PO BEDTIME ferrous sulfate 324 mg PO DAILY fluphenazine decanoate 25 mg IM Q28D sunwczubiny-qcglmezwn-fsksvzxm 100-62.5-25 mcg (Trelegy Ellipta) 1 inh inhalation RDAILY levothyroxine 25 mcg PO DAILY@0600 loratadine 10 mg PO DAILY magnesium oxide 400 mg PO BIDPC mupirocin 2% 1 appl See Protocol topical BID pantoprazole 40 mg PO BID phenazopyridine 200 mg PO TID PRN risperidone 1 mg PO BID tamsulosin 0.4 mg PO BEDTIME warfarin See Protocol 2 mg orally 4MG DAILY OR DIRECTED; 4MG DAILY OR DIRECTED Nursing Note NO CP,SOB,DIET/MED CHANGES,FALLS OR SX OF BLEEDING. CONTINUE PRESENT DOSING AND FOLLOW-UP IN 4 WEEKS. GOOD UNDERSTANDING OF DOSING INSTR. 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
== END 2023-09-22 11:14 | disposition home or self-care (01) ==
LOC: HO.ACS 10:58
PROVIDERS: PCP Registered Nurse; Visit Provider Internal Medicine
DX: Z79.01 Long term (current) use of anticoagulants (principal)

== ENCOUNTER → 2023-09-22 10:58 | Outpatient (BNVA) | payer MEDICARE, MEDICAID, SELFPAY | PROVIDERS: PCP Registered Nurse; Visit Provider Internal Medicine | DX: Z95.2 Presence of prosthetic heart valve (principal); Z51.81 Encounter for therapeutic drug level monitoring; Z79.01 Long term (current) use of anticoagulants | CPT/HCPCS: 85610; 99211 ==

== ENCOUNTER 2023-10-12 09:31 | Outpatient (AMB) | payer MEDICARE, MEDICAID, SELFPAY ==
[2023-10-12 09:35] VITALS: BP 127/72; PULSE 85; O2SAT 98; BMI 24.5
--- NOTE | 2023-10-12 09:35 | A.OFFVIS_ITS ---
Vital Signs 10/12/23 09:35 Height 6 ft Weight 180 lb 12.465 oz BMI 24.5 BP 127/72 Blood Pressure Location Rt brachial Position Sitting Pulse 85 Pulse Source Doppler Pulse Oximetry (%) 98 Oxygen Delivery Method Room Air Intake Visit Reasons: COPD Allergies No Known Allergies Allergy (Mild, Verified 09/22/23 11:01) NOT APPLICABLE HPI HPI COPD: Details: 73-year-old gentleman, active 60+ pack-year smoker, with underlying history of what appears to be schizophrenia, followed for underlying moderate COPD and right upper lobe 4 mm pulmonary nodule. Patient has been using Trelegy and albuterol MDI? with good control of his underlying symptoms.? He denies any recent exacerbations.? PFS Medical History Incarcerated right inguinal hernia Normocytic anemia Metabolic encephalopathy MSSA bacteremia History of atrial fibrillation COPD (chronic obstructive pulmonary disease) Hypothyroid Bipolar 1 disorder Surgical History History of heart surgery Social History Household Members: Other Household Members Other:: intermediate Housing: House Housing Other:: intermediate Do you presently have visiting nurse or other home services: Yes (intermediate) Alcohol intake: never Comment: Close observation Patient Tobacco Use Status: Refuse Tobacco use screen Substance Use Type: Marijuana Advance Directives Date on File: 06/04/23 service: No Sexual orientation: Straight/Heterosexual Review of Systems Const Denies daytime sleepiness, Denies excessive sweating, Denies fatigue, Denies fever(s), Denies lethargy, Denies malaise, Denies night sweats, Denies snoring and Denies weight loss Eyes Denies blurry vision and Denies itchy eyes ENT Denies nasal congestion, Denies post nasal drip, Denies sinus pain, Denies sinus pressure and Denies other ( Thrush) Card Denies chest pain, Denies pedal edema, Denies dyspnea, Denies orthopnea and Denies paroxysmal nocturnal dyspnea Resp Denies cough, Denies hemoptysis, Denies excessive phlegm production, Denies dyspnea, Denies snoring and Denies wheezing GI Denies abdominal pain and Denies heartburn Musc Denies myalgias, Denies arthralgias and Denies joint swelling Skin/Breast Denies rash Neuro Denies memory loss and Denies seizure-like activity Psych Denies abnormal sleep pattern, Denies anxiety and Denies memory loss Endo Denies excessive sweating, Denies fatigue and Denies heat intolerance Clint/Lymph Denies easy bruising Aller/Immun Denies itchy eyes, Denies seasonal rhinorrhea and Denies wheezing Physical Exam Vital Signs: Last Vital Signs Pulse 85 10/12/23 09:35 BP 127/72 10/12/23 09:35 Pulse Ox 98 10/12/23 09:35 Oxygen Delivery Method Room Air 10/12/23 09:35 BMI result Body Mass Index 24.5 Const General: no acute distress and alert Nutritional Appearance: not obese Orientation/consciousness: Other orientation findings ( oriented) HEENT Head: Yes atraumatic Eyes General: appearance normal, both eyes and all related structures Sclerae: sclerae normal EOM: EOMs intact bilaterally Neck Neck: Yes supple Lymphatic: no lymphadenopathy noted Resp Effort & Inspection: normal respiratory effort and no use of accessory muscles Auscultation: clear to auscultation bilaterally Cardio Rate: regular rate Rhythm: regular rhythm Heart sounds: no gallops, no murmurs and no rubs Skin General skin exam: other ( warm) Extrem General: No clubbing, No cyanosis and No edema Assessment & Plan Assessment & Plan (1) COPD (chronic obstructive pulmonary disease): Code(s): J44.9 - Chronic obstructive pulmonary disease, unspecified Category: Medical Plan: Well controlled on Trelegy and albuterol MDI. Continue current regimen. (2) Personal history of nicotine dependence: Code(s): Z87.891 - Personal history of nicotine dependence Category: Medical Plan: Will obtain lung cancer screening CT chest. Orders: Orders CT lung screening Today Z87.891 - Personal history of nicotine dependence Coding Level of Care Code Est Pt Level 4 (41788) Diagnoses COPD (chronic obstructive pulmonary disease) J44.9 Personal history of nicotine dependence Z87.891
== END 2023-10-12 09:51 | disposition home or self-care (01) ==
PROVIDERS: PCP Registered Nurse; Visit Provider Internal Medicine Pulmonary Disease
DX: J44.9 Chronic obstructive pulmonary disease, unspecified (principal); Z87.891 Personal history of nicotine dependence
CPT/HCPCS: 99214

== ENCOUNTER → 2023-10-12 09:31 | Outpatient (BNVA) | payer MEDICARE, MEDICAID, SELFPAY | PROVIDERS: PCP Registered Nurse; Visit Provider Internal Medicine Pulmonary Disease | DX: J44.9 Chronic obstructive pulmonary disease, unspecified (principal); Z87.891 Personal history of nicotine dependence | CPT/HCPCS: 99212 ==

== ENCOUNTER 2023-10-20 11:28 | Outpatient (AMB) | payer MEDICARE, MEDICAID, SELFPAY ==
[2023-10-20 11:35] LABS: Prothrombin Time Whole Bld POC 29.6 sec (11.1-13.5); ~PT, ~INR - Anti Coag Clinic 2.5 (0.9-1.1)
--- NOTE | 2023-10-20 11:35 | MHC.OFFVISCO ---
Intake Intake Visit Reasons: Anticoagulation Allergies No Known Allergies Allergy (Mild, Verified 10/20/23 11:29) NOT APPLICABLE Medication List - Last Reconciled 10/20/23 by Della Isabel RN albuterol sulfate 90 mcg/actuation (Ventolin HFA) 1 puff inhalation RQ4H PRN atorvastatin 40 mg PO BEDTIME benztropine 1 mg PO BID cholecalciferol (vitamin D3) (Vitamin D3) 25 mcg PO QAM dicyclomine 20 mg PO BID divalproex ER 1,000 mg (2 x 500 mg) PO BEDTIME ferrous sulfate 324 mg PO DAILY fluphenazine decanoate 25 mg IM Q28D [id number]-ngbvolhkl-gmsmtkzf 100-62.5-25 mcg (Trelegy Ellipta) 1 inh inhalation RDAILY levothyroxine 25 mcg PO DAILY@0600 loratadine 10 mg PO DAILY magnesium oxide 400 mg PO BIDPC mupirocin 2% 1 appl See Protocol topical BID pantoprazole 40 mg PO BID phenazopyridine 200 mg PO TID PRN risperidone 1 mg PO BID tamsulosin 0.4 mg PO BEDTIME warfarin See Protocol 2 mg orally 4MG DAILY OR DIRECTED; 4MG DAILY OR DIRECTED Nursing Note INR: 2.5- in therapeutic range of 2-3 Medications and supplements reviewed- no changes No changes in health, diet, medications, or supplements, Denies any signs and symptoms of bleeding or bruising or clotting. Bleeding, bruising, clotting discussed Nutritional guidance given Dose: 2mg x 3, 4mg x 4 F/U INR: 4 weeks Patient verbalizes understanding of instructions given pt to acs acompanied by staff Anti-Coag Initial Assessment Social Hx Patient Tobacco Use Status: Refuse Tobacco use screen alcohol intake: never Coding Level of Care Code Est Patient Level 1 Diagnoses Current use of anticoagulant therapy Z79.01 Assessment & Plan Assessment & Plan (1) Current use of anticoagulant therapy: Code(s): Z79.01 - prison (current) use of anticoagulants Category: Medical
== END 2023-10-20 11:54 | disposition home or self-care (01) ==
LOC: HO.ACS 11:28
PROVIDERS: PCP Registered Nurse; Visit Provider Internal Medicine
DX: Z79.01 Long term (current) use of anticoagulants (principal)

== ENCOUNTER → 2023-10-20 11:28 | Outpatient (BNVA) | payer MEDICARE, MEDICAID, SELFPAY | PROVIDERS: PCP Registered Nurse; Visit Provider Internal Medicine | DX: Z95.2 Presence of prosthetic heart valve (principal); Z79.01 Long term (current) use of anticoagulants; Z51.81 Encounter for therapeutic drug level monitoring | CPT/HCPCS: 85610; 99211 ==

== ENCOUNTER 2023-11-17 11:26 | Outpatient (AMB) | payer MEDICARE, MEDICAID, SELFPAY ==
[2023-11-17 11:31] LABS: Prothrombin Time Whole Bld POC 20.1 sec (11.1-13.5); ~PT, ~INR - Anti Coag Clinic 1.7 (0.9-1.1)
--- NOTE | 2023-11-17 11:38 | MHC.OFFVISCO ---
Intake Intake Visit Reasons: Anticoagulation Allergies No Known Allergies Allergy (Mild, Verified 11/17/23 11:27) NOT APPLICABLE Medication List - Last Reconciled 11/17/23 by Magdalena Echeverria RN albuterol sulfate 90 mcg/actuation (Ventolin HFA) 1 puff inhalation RQ4H PRN atorvastatin 40 mg PO BEDTIME benztropine 1 mg PO BID cholecalciferol (vitamin D3) (Vitamin D3) 25 mcg PO QAM dicyclomine 20 mg PO BID divalproex ER 1,000 mg (2 x 500 mg) PO BEDTIME ferrous sulfate 324 mg PO DAILY fluphenazine decanoate 25 mg IM Q28D [id number]-rcstiixjb-tflanwfe 100-62.5-25 mcg (Trelegy Ellipta) 1 inh inhalation RDAILY levothyroxine 25 mcg PO DAILY@0600 loratadine 10 mg PO DAILY magnesium oxide 400 mg PO BIDPC mupirocin 2% 1 appl See Protocol topical BID pantoprazole 40 mg PO BID phenazopyridine 200 mg PO TID PRN risperidone 1 mg PO BID tamsulosin 0.4 mg PO BEDTIME warfarin See Protocol 2 mg orally 4MG DAILY OR DIRECTED; 4MG DAILY OR DIRECTED Nursing Note NO CP,SOB,DIET/MED CHANGES OR SX OF BLEEDING. BOOST TO 6MGM TODAY THEN RESUME USUAL DOSE AND FOLLOW-UP IN 2 WEEKS. GOOD UNDERSTANDING OF DOSING INSTR. 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
== END 2023-11-17 11:44 | disposition home or self-care (01) ==
LOC: HO.ACS 11:26
PROVIDERS: PCP Internal Medicine; Visit Provider Internal Medicine
DX: Z79.01 Long term (current) use of anticoagulants (principal)

== ENCOUNTER → 2023-11-17 11:26 | Outpatient (BNVA) | payer MEDICARE, MEDICAID, SELFPAY | PROVIDERS: PCP Internal Medicine; Visit Provider Internal Medicine | DX: Z95.2 Presence of prosthetic heart valve (principal); Z79.01 Long term (current) use of anticoagulants; Z51.81 Encounter for therapeutic drug level monitoring | CPT/HCPCS: 85610; 99211 ==

== ENCOUNTER 2023-11-18 10:52 | Outpatient (REF) | payer MEDICARE, MEDICAID, SELFPAY ==
--- NOTE | ~2023-11-18 | CT_ITS ---
EXAMINATION: CT LOW-DOSE SCREENING CHEST WITHOUT CONTRAST CLINICAL INFORMATION: Personal history of nicotine dependence. The patient is a current smoker with a 60 pack-year history of smoking. COMPARISON: CT chest June 29, 2022 and x-ray chest December 03, 2020. TECHNIQUE: Multidetector volumetric CT imaging of the chest is performed on a Siemens SOMATOM Perspective scanner without contrast using low dose technique. Additional 2D coronal and sagittal reformatted images and axial 3D maximum intensity projection (MIP) images are generated on the CT workstation. This CT examination was performed using dose optimization techniques as appropriate, variously including the following: *Automated exposure control. *Adjustment of mA and/or kV according to patient size (this includes techniques or standardized protocols for targeted exams where dose is matched to indication/reason for exam; i.e. extremities or head). *Use of iterative reconstruction technique. TOTAL EXAM DLP: 106 mGy-cm. CTDIvol: 2.48 mGy. FINDINGS: PULMONARY NODULES: A number of new pulmonary nodular densities are seen: 13.4 x 7.7 mm spiculated left upper lobe nodule (6:62). 3.2 mm nodule just adjacent to above (6:61). Large multifocal area of nodular densities in the right upper lobe posteriorly best appreciated on sagittal imaging (9:93). The entire area measures about 44 mm. Stable large area of round atelectasis in the right lower lobe. Some smaller pulmonary micronodules are stable. LUNGS: Lungs bilaterally symmetrically expanded. There is fhuogngk-bh-rlwrhc emphysematous changes along with bronchial thickening. There is some traction bronchiectasis seen at the lung bases. No effusion or pneumothorax. Central airways patent. MEDIASTINUM: No mediastinal, hilar or axillary adenopathy or free fluid collection. CORONARY ARTERY CALCIFICATION: Ohskjnjz-oz-abtxnl. THYROID GLAND: Unremarkable to the extent seen. CARDIOVASCULAR STRUCTURES: The main pulmonary artery is dilated at 4.5 cm. Ascending aorta is stable at 4.3 cm in transverse plane. Heart size is normal. No pericardial effusion. Patient is status post median sternotomy with aortic valvular prosthesis. CHEST WALL/AXILLA: Unremarkable. UPPER ABDOMEN: Included portions of the solid organs in the upper abdomen unremarkable on noncontrast imaging. OSSEOUS STRUCTURES: Degenerative changes throughout the spine with fusion of the anterior longitudinal ligament. CT/CT lung screening IMPRESSION: Multifocal new pulmonary opacities. I suspect that this is likely inflammatory, but malignancy cannot be excluded especially for the more solitary left upper lobe 13.4 spiculated nodule. ASSESSMENT: 1. Lung-RADS Category 4B: Suspicious findings. N/A. 2. Lung-RADS Category S: Negative. There are no clinically significant or potentially clinically significant findings not related to the lungs requiring urgent additional evaluation. RECOMMENDATION: A 3-month follow up low-dose lung CT scan is recommended. An order for CT LUNG CANCER SCREENING SHORT INTERVAL FOLLOWUP ([id number]) can be placed. PET/CT would be another option. Electronically signed by: Tomasz Laurent MD 12/15/2023 12:40 AM EDT
== END 2023-11-18 10:53 | disposition home or self-care (01) ==
LOC: HO.CT 10:52
PROVIDERS: PCP Internal Medicine; Visit Provider Internal Medicine Pulmonary Disease
DX: Z12.2 Encounter for screening for malignant neoplasm of respiratory organs (principal); Z87.891 Personal history of nicotine dependence
CPT/HCPCS: 71271

== ENCOUNTER → 2023-11-18 13:28 | Outpatient (RCR) | payer MEDICARE, MEDICAID, SELFPAY ==
[2020-01-03 10:43] VITALS: BP 124/58; PULSE 100; RESP 18; TEMP 36.8; O2SAT 98; BMI 28.2
--- NOTE | 2020-01-03 12:54 | PM.HEMONCPN ---
Medical Summary - Medical Summary Medical Summary: Normocytic anemia diagnosed in Multiple medical problems admitted for mental status changes and found to have severe anemia. April 2018 he was admitted with confusion fever and diagnosed with MSSA bacteremia. TTE was negative. He completed 4 weeks of IV nafcillin on 05/29/18. He presented again to the ED on 05/30/18 with lethargy and confusion. He was hypotensive with systolic blood pressure in the 80s. His hemoglobin was 6.6 and hematocrit of 19.3. He was transfused PRBCs. He has had some deterioration in his kidney functions, his creatinine increased from 1.8-2.28. His WBC and platelet counts were normal although he had mild thrombocytopenia with platelet counts went down to 85 on May 02 and quickly recovered to normal by May 05. Interval History Interval history: Patient is here in follow-up, he is accompanied by his dependency case manager. According to her there have been no new medical issues or changes to his medications. He remains on oral iron twice a day. 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 He has had no symptoms such as loss of appetite or unexplained weight loss. No reports of chest pain, shortness of breath, fever or chills. Review of Systems - Constitutional Reports as per HPI, Reports no additional constitutional complaints [facility] Medical History: Medical History (Last Updated 01/03/20 @ 08:41 by Danielle Taylor RN) Bipolar 1 disorder COPD (chronic obstructive pulmonary disease) History of atrial fibrillation Hypothyroid Metabolic encephalopathy MSSA bacteremia Normocytic anemia Surgical History: Surgical History (Last Updated 01/03/20 @ 08:41 by Danielle Taylor RN) History of heart surgery Home Medications and Allergies Home Medications Medication Instructions Recorded Confirmed Type atorvastatin 40 mg PO BEDTIME 01/03/20 01/03/20 History benztropine [Cogentin] 0.5 mg PO DAILY 01/03/20 01/03/20 History cholecalciferol (vitamin D3) 25 mcg PO DAILY 01/03/20 01/03/20 History [Vitamin D3] demeclocycline [Declomycin] 300 mg PO Q12H 01/03/20 01/03/20 History divalproex 500 mg tablet,extended 2,000 mg PO DAILY tab 01/03/20 01/03/20 History release 24 hr ferrous sulfate 325 mg PO BID 01/03/20 01/03/20 History fluticasone 500 mcg-salmeterol 50 1 inh INHALATION BID 01/03/20 01/03/20 History mcg/dose blistr powdr for inhalation folic acid 1 mg PO DAILY 01/03/20 01/03/20 History ketoconazole 1 applic TOPICAL DAILY 01/03/20 01/03/20 History levothyroxine 25 mcg PO DAILY 01/03/20 01/03/20 History magnesium oxide 400 mg PO BID 01/03/20 01/03/20 History multivitamin 1 cap PO DAILY 01/03/20 01/03/20 History pantoprazole 40 mg PO DAILY 01/03/20 01/03/20 History risperidone [Risperdal] 1 mg PO BEDTIME 01/03/20 01/03/20 History tamsulosin 0.4 mg PO DAILY 01/03/20 01/03/20 History thiamine HCl (vitamin B1) 100 mg PO DAILY 01/03/20 01/03/20 History umeclidinium [Incruse Ellipta] 1 inh INHALATION DAILY 01/03/20 01/03/20 History warfarin 3 mg PO DAILY 01/03/20 01/03/20 History Allergies Allergy/AdvReac Type Severity Reaction Status Date / Time No Known Allergies Allergy Mild NOT Verified 01/03/20 11:34 APPLICABLE Exam Vital signs: Vital Signs Temp 98.2 F 01/03/20 10:43 Pulse 100 01/03/20 10:43 Resp 18 01/03/20 10:43 BP 124/58 L 01/03/20 10:43 Pulse Ox 98 01/03/20 10:43 Intake & Output 01/02/20 01/03/20 01/03/20 18:59 06:59 18:59 Other: Weight 94.347 kg Weight 94.347 kg Body Mass Index 28.2 - Constitutional Present: no acute distress - Routine HEENT Exam Head: Present: normal inspection Eye: Present: EOMI - Routine Respiratory Exam Present: CTAB. Absent: accessory muscle use - Routine Cardiovascular Exam Cardiovascular: Present: S1, S2 Data - Labs Labs: CBC from 01/01/2020-WBC 5.9, hemoglobin 10.6, hematocrit 33.7, MCV 98.3, platelets 205 Progress Note: A/P (1) Anemia Status: Chronic Assessment and plan: 1. This is a 69-year-old male with normocytic anemia which was probably multifactorial diagnosed in May 2018. At that time he had severe reticulocytopenia. Elevated vitamin B12, elevated iron studies and borderline folate levels. There was no evidence of hemolysis, normal LDH and bilirubin levels. However direct Brandon was positive, could have been related to nafcillin use. Combination of sepsis, acute kidney injury, malnutrition, medications (nafcillin can cause bone marrow suppression, agranulocytosis), mechanical valve related hemolysis and primary bone marrow disorders were all felt to be possible etiological factors. He received prolonged course of prednisone. Mild anemia of kidney disease as well. He will be monitored. He is on iron and folic acid supplementation. Blood counts are stable. Follow-up in 6 months. - Time Spent With Patient Total time spent is greater than 50% in coordination of care (as documented) at patient's floor/unit and/or counseling patient: 15 - 24 minutes
--- NOTE | 2020-07-10 14:51 | P.PNHO_ITS ---
Medical Summary - Medical Summary Date of Service: 07/10/20 Chief complaint: Scheduled follow-up Medical Summary: Normocytic anemia diagnosed in Multiple medical problems admitted for mental status changes and found to have severe anemia. April 2018 he was admitted with confusion fever and diagnosed with MSSA bacteremia. TTE was negative. He completed 4 weeks of IV nafcillin on 05/29/18. He presented again to the ED on 05/30/18 with lethargy and confusion. He was hypotensive with systolic blood pressure in the 80s. His hemoglobin was 6.6 and hematocrit of 19.3. He was transfused PRBCs. He has had some deterioration in his kidney functions, his creatinine increased from 1.8-2.28. His WBC and platelet counts were normal although he had mild thrombocytopenia with platelet counts went down to 85 on May 02 and quickly recovered to normal by May 05. Interval History Interval history: Patient is here in follow-up. He is doing quite well and has no complaints today. He is on both iron supplementation and folic acid. He denies any abdominal pain, hematochezia or melena. No loss of appetite or weight loss. Review of Systems - Constitutional Reports as per HPI, Reports no additional constitutional complaints [facility] Medical History: Medical History (Last Updated 01/31/20 @ 13:19 by Darrion Kaur MD) Bipolar 1 disorder COPD (chronic obstructive pulmonary disease) History of atrial fibrillation Hypothyroid Incarcerated right inguinal hernia Metabolic encephalopathy MSSA bacteremia Normocytic anemia Surgical History: Surgical History (Last Reviewed 01/31/20 @ 13:13 by Darrion Kaur MD) History of heart surgery Social History: Social History (Last Reviewed 01/31/20 @ 13:13 by Darrion Kaur MD) Alcohol History: Alcohol intake: never Advance Directives: Advance Directives: No Advance Directives Information Provided: No Home Medications and Allergies Home Medications Medication Instructions Recorded Confirmed Type atorvastatin 40 mg PO BEDTIME 01/03/20 05/15/20 History cholecalciferol (vitamin D3) 25 mcg PO DAILY 01/03/20 05/15/20 History [Vitamin D3] demeclocycline [Declomycin] 300 mg PO Q12H 01/03/20 05/15/20 History divalproex 500 mg tablet,extended 2,000 mg PO DAILY tab 01/03/20 07/10/20 History release 24 hr fluticasone 500 mcg-salmeterol 50 1 inh INHALATION BID 01/03/20 07/10/20 History mcg/dose blistr powdr for inhalation folic acid 1 mg PO DAILY 01/03/20 05/15/20 History ketoconazole 1 applic TOPICAL DAILY 01/03/20 05/15/20 History levothyroxine 25 mcg PO DAILY 01/03/20 05/15/20 History magnesium oxide 400 mg PO BID 01/03/20 05/15/20 History multivitamin 1 cap PO DAILY 01/03/20 05/15/20 History pantoprazole 40 mg PO DAILY 01/03/20 05/15/20 History risperidone [Risperdal] 1 mg PO BEDTIME 01/03/20 05/15/20 History thiamine HCl (vitamin B1) 100 mg PO DAILY 01/03/20 05/15/20 History umeclidinium [Incruse Ellipta] 1 inh INHALATION DAILY 01/03/20 05/15/20 History benztropine 1 mg tablet 1 mg PO DAILY 03/20/20 07/10/20 History ketoconazole 2 % shampoo 2 appl TOPICAL DAILY 03/20/20 07/10/20 History magnesium oxide 400 mg (241.3 mg 400 mg PO BID 03/20/20 07/10/20 History magnesium) tablet valproic acid (as sodium salt) 250 250 mg PO DAILY 03/20/20 07/10/20 History mg/5 mL oral solution trazodone 50 mg tablet 50 mg PO DAILY PRN 05/15/20 07/10/20 History Allergies Allergy/AdvReac Type Severity Reaction Status Date / Time No Known Allergies Allergy Mild NOT Verified 07/10/20 11:21 APPLICABLE Exam Vital signs: Vital Signs Temp 98.2 F 01/03/20 10:43 Pulse 100 01/03/20 10:43 Resp 18 01/03/20 10:43 BP 124/58 L 01/03/20 10:43 Pulse Ox 98 01/03/20 10:43 Weight 94.347 kg Body Mass Index 28.2 - Constitutional Present: no acute distress - Routine HEENT Exam Head: Present: normal inspection - Routine Respiratory Exam Present: CTAB. Absent: accessory muscle use - Routine Cardiovascular Exam Cardiovascular: Present: S1, S2 Data - Labs Labs: Laboratory Tests 07/02/20 11:22 WBC 9.2 RBC 3.34 L Hgb 10.2 L Hct 31.2 L Plt Count 305 Progress Note: A/P (1) Anemia Status: Chronic Assessment and plan: 1. This is a 70-year-old male with normocytic anemia which was probably multifactorial diagnosed in May 2018. At that time he had severe reticulocytopenia. Elevated vitamin B12, elevated iron studies and borderline folate levels. There was no evidence of hemolysis, normal LDH and bilirubin levels. However direct Brandon was positive, could have been related to nafcillin use. Combination of sepsis, acute kidney injury, malnutrition, medications (nafcillin can cause bone marrow suppression, agranulocytosis), mechanical valve related hemolysis and primary bone marrow disorders were all felt to be possible etiological factors. He received prolonged course of prednisone. Mild anemia of kidney disease as well. He will be monitored. He is on iron and folic acid supplementation. He has received both doses of COVID-19 vaccine. Blood counts are stable. Follow-up in 6 months. - Time Spent With Patient Total time spent is greater than 50% in coordination of care (as documented) at patient's floor/unit and/or counseling patient: 15 - 24 minutes
[2020-07-10 14:53] VITALS: BP 131/62; PULSE 78; RESP 12; TEMP 37.2; O2SAT 95; BMI 26.0
--- NOTE | 2020-07-11 07:53 | MHC.HEMONCMA ---
PAtient came in for a follow up yesterday, states that he is doing ok. Clinical summary was reviewed and updated. Patient had labs and will return in 6 months for a follow up.
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
== END | disposition home or self-care (01) ==
LOC: HO.ONC 01-03 10:26
PROVIDERS: PCP Internal Medicine; Visit Provider Internal Medicine
DX: D64.9 Anemia, unspecified (principal); N28.9 Disorder of kidney and ureter, unspecified; D64.89 Other specified anemias; I48.91 Unspecified atrial fibrillation; Z79.01 Long term (current) use of anticoagulants; Z79.899 Other long term (current) drug therapy
CPT/HCPCS: 85610; 99213; 99214

== ENCOUNTER 2023-12-01 11:02 | Outpatient (AMB) | payer MEDICARE, MEDICAID, SELFPAY ==
--- NOTE | 2023-12-01 11:10 | MHC.OFFVISCO ---
Intake Intake Visit Reasons: Anticoagulation Allergies No Known Allergies Allergy (Mild, Verified 12/01/23 11:03) NOT APPLICABLE Medication List - Last Reconciled 12/01/23 by Della Isabel RN albuterol sulfate 90 mcg/actuation (Ventolin HFA) 1 puff inhalation RQ4H PRN atorvastatin 40 mg PO BEDTIME benztropine 1 mg PO BID cholecalciferol (vitamin D3) (Vitamin D3) 25 mcg PO QAM dicyclomine 20 mg PO BID divalproex ER 1,000 mg (2 x 500 mg) PO BEDTIME ferrous sulfate 324 mg PO DAILY fluphenazine decanoate 25 mg IM Q28D qvzrkezsunl-mrixqhfpe-yfaralcw 100-62.5-25 mcg (Trelegy Ellipta) 1 inh inhalation RDAILY levothyroxine 25 mcg PO DAILY@0600 loratadine 10 mg PO DAILY magnesium oxide 400 mg PO BIDPC mupirocin 2% 1 appl See Protocol topical BID pantoprazole 40 mg PO BID phenazopyridine 200 mg PO TID PRN risperidone 1 mg PO BID tamsulosin 0.4 mg PO BEDTIME warfarin See Protocol 2 mg orally 4MG DAILY OR DIRECTED; 4MG DAILY OR DIRECTED Nursing Note INR: 2.1- in therapeutic range of 2-3 Medications and supplements reviewed- no changes No changes in health, diet, medications, or supplements, Denies any signs and symptoms of bleeding or bruising or clotting. 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
[2023-12-01 11:12] LABS: Prothrombin Time Whole Bld POC 25.4 sec (11.1-13.5); ~PT, ~INR - Anti Coag Clinic 2.1 (0.9-1.1)
== END 2023-12-01 11:59 | disposition home or self-care (01) ==
LOC: HO.ACS 11:02
PROVIDERS: PCP Internal Medicine; Visit Provider Internal Medicine
DX: Z79.01 Long term (current) use of anticoagulants (principal)

== ENCOUNTER → 2023-12-01 11:02 | Outpatient (BNVA) | payer MEDICARE, MEDICAID, SELFPAY | PROVIDERS: PCP Internal Medicine; Visit Provider Internal Medicine | DX: Z95.2 Presence of prosthetic heart valve (principal); Z79.01 Long term (current) use of anticoagulants; Z51.81 Encounter for therapeutic drug level monitoring | CPT/HCPCS: 85610; 99211 ==

== ENCOUNTER 2023-12-15 11:11 | Outpatient (AMB) | payer MEDICARE, MEDICAID, SELFPAY ==
--- NOTE | 2023-12-15 11:20 | MHC.OFFVISCO ---
Intake Intake Visit Reasons: Anticoagulation Allergies No Known Allergies Allergy (Mild, Verified 12/15/23 11:12) NOT APPLICABLE Medication List - Last Reconciled 12/15/23 by Della Isabel RN albuterol sulfate 90 mcg/actuation (Ventolin HFA) 1 puff inhalation RQ4H PRN atorvastatin 40 mg PO BEDTIME benztropine 1 mg PO BID cholecalciferol (vitamin D3) (Vitamin D3) 25 mcg PO QAM dicyclomine 20 mg PO BID divalproex ER 1,000 mg (2 x 500 mg) PO BEDTIME ferrous sulfate 324 mg PO DAILY fluphenazine decanoate 25 mg IM Q28D wvnormzogkb-uuehzozxy-ofyeighr 100-62.5-25 mcg (Trelegy Ellipta) 1 inh inhalation RDAILY levothyroxine 25 mcg PO DAILY@0600 loratadine 10 mg PO DAILY magnesium oxide 400 mg PO BIDPC mupirocin 2% 1 appl See Protocol topical BID pantoprazole 40 mg PO BID phenazopyridine 200 mg PO TID PRN risperidone 1 mg PO BID tamsulosin 0.4 mg PO BEDTIME warfarin See Protocol 2 mg orally 4MG DAILY OR DIRECTED; 4MG DAILY OR DIRECTED Nursing Note INR: 2.3- in therapeutic range of 2-3 Medications and supplements reviewed- pt states no changes No changes in health, diet, medications, or supplements, Denies any signs and symptoms of bleeding or bruising or clotting. 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
[2023-12-15 11:21] LABS: Prothrombin Time Whole Bld POC 27.2 sec (11.1-13.5); ~PT, ~INR - Anti Coag Clinic 2.3 (0.9-1.1)
== END 2023-12-15 11:31 | disposition home or self-care (01) ==
LOC: HO.ACS 11:11
PROVIDERS: PCP Internal Medicine; Visit Provider Internal Medicine
DX: Z79.01 Long term (current) use of anticoagulants (principal)

== ENCOUNTER → 2023-12-15 11:11 | Outpatient (BNVA) | payer MEDICARE, MEDICAID, SELFPAY | PROVIDERS: PCP Internal Medicine; Visit Provider Internal Medicine | DX: Z95.2 Presence of prosthetic heart valve (principal); Z79.01 Long term (current) use of anticoagulants; Z51.81 Encounter for therapeutic drug level monitoring | CPT/HCPCS: 85610; 99211 ==

== ENCOUNTER 2024-01-05 11:11 | Outpatient (AMB) | payer MEDICARE, MEDICAID, SELFPAY ==
[2024-01-05 11:17] LABS: ~PT, ~INR - Anti Coag Clinic 2.1 (0.9-1.1)
--- NOTE | 2024-01-05 11:21 | MHC.OFFVISCO ---
Intake Intake Visit Reasons: Anticoagulation Allergies No Known Allergies Allergy (Mild, Verified 01/05/24 11:12) NOT APPLICABLE Medication List - Last Reconciled 01/05/24 by Magdalena Echeverria RN albuterol sulfate 90 mcg/actuation (Ventolin HFA) 1 puff inhalation RQ4H PRN atorvastatin 40 mg PO BEDTIME benztropine 1 mg PO BID cholecalciferol (vitamin D3) (Vitamin D3) 25 mcg PO QAM dicyclomine 20 mg PO BID divalproex ER 1,000 mg (2 x 500 mg) PO BEDTIME ferrous sulfate 324 mg PO DAILY fluphenazine decanoate 25 mg IM Q28D fypvohzqqrr-ijkrlfpyg-pcrfdntw 100-62.5-25 mcg (Trelegy Ellipta) 1 inh inhalation RDAILY levothyroxine 25 mcg PO DAILY@0600 loratadine 10 mg PO DAILY magnesium oxide 400 mg PO BIDPC mupirocin 2% 1 appl See Protocol topical BID pantoprazole 40 mg PO BID phenazopyridine 200 mg PO TID PRN risperidone 1 mg PO BID tamsulosin 0.4 mg PO BEDTIME warfarin See Protocol 2 mg orally 4MG DAILY OR DIRECTED; 4MG DAILY OR DIRECTED Nursing Note NO CP,SOB,DIET/MED CHANGES,FALLS OR SX OF BLEEDING. CONTINUE PRESENT DOSE AND FOLLOW-UP IN 4 WEEKS.'GOOD UNDERSTANDING OF DOSING INSTR. Anti-Coag Initial Assessment Social Hx Patient Tobacco Use Status: Refuse Tobacco use screen alcohol intake: never Coding Level of Care Code Est Patient Level 1 Diagnoses Current use of anticoagulant therapy Z79.01 Assessment & Plan Assessment & Plan (1) Current use of anticoagulant therapy: Code(s): Z79.01 - manager terminal (current) use of anticoagulants Category: Medical
== END 2024-01-05 11:22 | disposition home or self-care (01) ==
LOC: HO.ACS 11:11
PROVIDERS: PCP Internal Medicine; Visit Provider Internal Medicine
DX: Z79.01 Long term (current) use of anticoagulants (principal)

== ENCOUNTER → 2024-01-05 11:11 | Outpatient (BNVA) | payer MEDICARE, MEDICAID, SELFPAY | PROVIDERS: PCP Internal Medicine; Visit Provider Internal Medicine | DX: Z95.2 Presence of prosthetic heart valve (principal); Z79.01 Long term (current) use of anticoagulants; Z51.81 Encounter for therapeutic drug level monitoring | CPT/HCPCS: 85610; 99211 ==

== ENCOUNTER 2024-02-02 11:18 | Outpatient (AMB) | payer MEDICARE, MEDICAID, SELFPAY ==
--- NOTE | 2024-02-02 11:41 | MHC.OFFVISCO ---
Intake Intake Visit Reasons: Anticoagulation Allergies No Known Allergies Allergy (Mild, Verified 02/02/24 11:30) NOT APPLICABLE Medication List - Last Reconciled 02/02/24 by Magdalena Echeverria RN albuterol sulfate 90 mcg/actuation (Ventolin HFA) 1 puff inhalation RQ4H PRN atorvastatin 40 mg PO BEDTIME benztropine 1 mg PO BID cholecalciferol (vitamin D3) (Vitamin D3) 25 mcg PO QAM dicyclomine 20 mg PO BID divalproex ER 1,000 mg (2 x 500 mg) PO BEDTIME ferrous sulfate 324 mg PO DAILY fluphenazine decanoate 25 mg IM Q28D [id number]-fwrtoqqoc-twyffpxi 100-62.5-25 mcg (Trelegy Ellipta) 1 inh inhalation RDAILY levothyroxine 25 mcg PO DAILY@0600 loratadine 10 mg PO DAILY magnesium oxide 400 mg PO BIDPC mupirocin 2% 1 appl See Protocol topical BID pantoprazole 40 mg PO BID phenazopyridine 200 mg PO TID PRN risperidone 1 mg PO BID tamsulosin 0.4 mg PO BEDTIME warfarin See Protocol 2 mg orally 4MG DAILY OR DIRECTED; 4MG DAILY OR DIRECTED Nursing Note NO CP,SOB,DIET/MED CHANGES,FALLS OR SX OF BLEEDING. CONTINUE PRESENT DOSE AND FOLLOW-UP IN 4 WEEKS. GOOD UNDERSTANDING VERB.BY PT. PT.AGREES TO GIVE INSTR.SHEET TO [employer]ERS Anti-Coag Initial Assessment Social Hx Patient Tobacco Use Status: Refuse Tobacco use screen alcohol intake: never Coding Level of Care Code Est Patient Level 1 Diagnoses Current use of anticoagulant therapy Z79.01 Assessment & Plan Assessment & Plan (1) Current use of anticoagulant therapy: Code(s): Z79.01 - nursing home (current) use of anticoagulants Category: Medical
== END 2024-02-02 11:53 | disposition home or self-care (01) ==
LOC: HO.ACS 11:18
PROVIDERS: PCP Internal Medicine; Visit Provider Internal Medicine
DX: Z79.01 Long term (current) use of anticoagulants (principal)

== ENCOUNTER → 2024-02-02 11:18 | Outpatient (BNVA) | payer MEDICARE, MEDICAID, SELFPAY | PROVIDERS: PCP Internal Medicine; Visit Provider Internal Medicine | DX: Z95.2 Presence of prosthetic heart valve (principal); Z79.01 Long term (current) use of anticoagulants; Z51.81 Encounter for therapeutic drug level monitoring | CPT/HCPCS: 85610; 99211 ==

== ENCOUNTER 2024-03-01 11:15 | Outpatient (AMB) | payer MEDICARE, MEDICAID, SELFPAY ==
--- NOTE | 2024-03-01 11:23 | MHC.OFFVISCO ---
Intake Intake Visit Reasons: Anticoagulation Allergies No Known Allergies Allergy (Mild, Verified 03/01/24 11:16) NOT APPLICABLE Medication List - Last Reconciled 03/01/24 by Della Isabel RN albuterol sulfate 90 mcg/actuation (Ventolin HFA) 1 puff inhalation RQ4H PRN atorvastatin 40 mg PO BEDTIME benztropine 1 mg PO BID cholecalciferol (vitamin D3) (Vitamin D3) 25 mcg PO QAM dicyclomine 20 mg PO BID divalproex ER 1,000 mg (2 x 500 mg) PO BEDTIME ferrous sulfate 324 mg PO DAILY fluphenazine decanoate 25 mg IM Q28D zmmnmvhxzfw-qvanhowtg-gxjoywns 100-62.5-25 mcg (Trelegy Ellipta) 1 inh inhalation RDAILY levothyroxine 25 mcg PO DAILY@0600 loratadine 10 mg PO DAILY magnesium oxide 400 mg PO BIDPC mupirocin 2% 1 appl See Protocol topical BID pantoprazole 40 mg PO BID phenazopyridine 200 mg PO TID PRN risperidone 1 mg PO BID tamsulosin 0.4 mg PO BEDTIME warfarin See Protocol 2 mg orally 4MG DAILY OR DIRECTED; 4MG DAILY OR DIRECTED Nursing Note INR: 2.0- in therapeutic range of 2-3 Medications and supplements reviewed No changes in health, diet, medications, or supplements, Denies any signs and symptoms of bleeding or bruising or clotting. Bleeding, bruising, clotting discussed Nutritional guidance given - no greens for 2 days, eat a red today Dose: 2mg x 3, 4mg x 4 F/U INR: 4 weeks Patient verbalizes understanding of instructions given Anti-Coag Initial Assessment Social Hx Patient Tobacco Use Status: Refuse Tobacco use screen alcohol intake: never Coding Level of Care Code Est Patient Level 1 Diagnoses Current use of anticoagulant therapy Z79.01 Assessment & Plan Assessment & Plan (1) Current use of anticoagulant therapy: Code(s): Z79.01 - care home (current) use of anticoagulants Category: Medical
[2024-03-01 11:24] LABS: Prothrombin Time Whole Bld POC 23.6 sec (11.1-13.5)
== END 2024-03-01 11:31 | disposition home or self-care (01) ==
LOC: HO.ACS 11:15
PROVIDERS: PCP Internal Medicine; Visit Provider Internal Medicine
DX: Z79.01 Long term (current) use of anticoagulants (principal)

== ENCOUNTER → 2024-03-01 11:15 | Outpatient (BNVA) | payer MEDICARE, MEDICAID, SELFPAY | PROVIDERS: PCP Internal Medicine; Visit Provider Internal Medicine | DX: Z95.2 Presence of prosthetic heart valve (principal); Z79.01 Long term (current) use of anticoagulants; Z51.81 Encounter for therapeutic drug level monitoring | CPT/HCPCS: 85610; 99211 ==

== ENCOUNTER 2024-03-29 13:06 | Outpatient (AMB) | payer MEDICARE, MEDICAID, SELFPAY ==
[2024-03-29 13:42] LABS: Prothrombin Time Whole Bld POC 19.4 sec (11.1-13.5); ~PT, ~INR - Anti Coag Clinic 1.6 (0.9-1.1)
--- NOTE | 2024-03-29 13:51 | MHC.OFFVISCO ---
Intake Intake Visit Reasons: Anticoagulation Allergies No Known Allergies Allergy (Mild, Verified 03/29/24 13:34) NOT APPLICABLE Medication List - Last Reconciled 03/29/24 by Magdalena Echeverria RN albuterol sulfate 90 mcg/actuation (Ventolin HFA) 1 puff inhalation RQ4H PRN atorvastatin 40 mg PO BEDTIME benztropine 1 mg PO BID cholecalciferol (vitamin D3) (Vitamin D3) 25 mcg PO QAM dicyclomine 20 mg PO BID divalproex ER 1,000 mg (2 x 500 mg) PO BEDTIME ferrous sulfate 324 mg PO DAILY fluphenazine decanoate 25 mg IM Q28D utbrrtlvsvg-afxzdtpqf-luxkglig 100-62.5-25 mcg (Trelegy Ellipta) 1 inh inhalation RDAILY levothyroxine 25 mcg PO DAILY@0600 loratadine 10 mg PO DAILY magnesium oxide 400 mg PO BIDPC mupirocin 2% 1 appl See Protocol topical BID pantoprazole 40 mg PO BID phenazopyridine 200 mg PO TID PRN risperidone 1 mg PO BID tamsulosin 0.4 mg PO BEDTIME warfarin See Protocol 2 mg orally 4MG DAILY OR DIRECTED; 4MG DAILY OR DIRECTED Nursing Note 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 PT.DENIES ANY CP,SOB OR SX OF BLEEDING. BOOST TO 6MGM TODAY AND 4MGM TOMORROW AND RECHECK INR IN 1 WEEK. 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
== END 2024-03-29 13:55 | disposition home or self-care (01) ==
LOC: HO.ACS 13:06
PROVIDERS: PCP Internal Medicine; Visit Provider Internal Medicine
DX: Z79.01 Long term (current) use of anticoagulants (principal)

== ENCOUNTER → 2024-03-29 13:06 | Outpatient (BNVA) | payer MEDICARE, MEDICAID, SELFPAY | PROVIDERS: PCP Internal Medicine; Visit Provider Internal Medicine | DX: Z95.2 Presence of prosthetic heart valve (principal); Z79.01 Long term (current) use of anticoagulants; Z51.81 Encounter for therapeutic drug level monitoring | CPT/HCPCS: 85610; 99211 ==

== ENCOUNTER 2024-04-04 11:22 | Outpatient (AMB) | payer MEDICARE, MEDICAID, SELFPAY ==
--- NOTE | 2024-04-04 11:23 | MHC.OFFVIS ---
Intake Visit Reasons: 1y/PVR Intake Note: Patient is Present for 1Y Follow Up PVR Urology Medication: Tamsulosin Antibiotic Allergies: None Blood Thinners: Warfarin PVR: 10ML'S TODAY'S PVR:15ML'S Certified Coding Specialist Required: No Allergies No Known Allergies Allergy (Mild, Verified 04/05/24 11:39) NOT APPLICABLE HPI Comments Details: Oneal is a pleasant male. [facility]ident [facility] [employer]. He seen for the following urologic conditions - lower urinary tract symptoms Yearly review Accompanied by caregiver Background of significant bipolar and anticholinergic side effects of bladder PVR 10 cc Continue good response tamsulosin Yearly follow-up Check PSA in 12 months Lower urinary tract symptoms Urgency with some nocturia Stable on tamsulosin Primary concern is large right inguinal hernia which is distorting anatomy and interfering with urination Not cleared by Cardiology for hernia repair PSA - 10/08 0.6 PFSH Medical History Incarcerated right inguinal hernia Normocytic anemia Metabolic encephalopathy MSSA bacteremia History of atrial fibrillation COPD (chronic obstructive pulmonary disease) Hypothyroid Bipolar 1 disorder Surgical History History of heart surgery Social History Household Members: Other Household Members Other:: jail Housing: House Housing Other:: jail Do you presently have visiting nurse or other home services: Yes (jail) Alcohol intake: never Comment: Close observation Patient Tobacco Use Status: Refuse Tobacco use screen Substance Use Type: Marijuana Advance Directives Date on File: 06/04/23 service: No Sexual orientation: Straight/Heterosexual Review of Systems Const Denies chills and Denies fever(s) Card Reports no additional complaints and Denies syncope Resp Denies cough GI Denies abdominal pain and Denies heartburn Reports as per HPI and Denies change in libido Neuro Denies syncope Psych Denies change in libido Endo Denies change in libido Physical Exam Const General: cooperative, healthy appearing, comfortable and no acute distress Orientation/consciousness: patient oriented x3 HEENT Face and sinus: Yes normal facial exam Mouth: moist mucous membranes Neck Neck: Yes normal visual inspection, Yes full ROM and Yes trachea midline Chest Chest palpation & inspection: normal inspection of the chest Resp Effort & Inspection: normal respiratory effort, able to speak in complete sentences and no respiratory distress GI Inspection: Yes normal to inspection Back/Spine/Pelvis Cervical Spine: normal cervical lordosis Thoracic/Lumbar Spine: thoracic and lumbar spine normal to inspection Skin General skin exam: no rashes or lesions noted Neuro General: patient oriented x3, gait normal, tone normal and moves all extremities Extrem General: Yes normal to inspection and Yes capillary refill normal Office Procedures Post Void Residual Post Residual Void Post Void Residual (PVR): 15 [id number] Void Residual by ultrasound Results AMB Urinalysis, Automated UA Leukoctes 0 Leila/uL Last Edit by VERONICA Mcconnell on 04/04/24 11:36 UA Nitrite Negative Last Edit by VERONICA Mcconnell on 04/04/24 11:36 UA Urobilinogen 0.2 mg/dL Last Edit by VERONICA Mcconnell on 04/04/24 11:36 UA Protein 30 mg/dL Last Edit by VERONICA Mcconnell on 04/04/24 11:36 UA pH 6.0 Last Edit by Jose Beard CCM on 04/04/24 11:36 UA Blood 0 Arthur/uL Last Edit by VERONICA Mcconnell on 04/04/24 11:36 UA Specific Thorp 1.015 Last Edit by VERONICA Mcconnell on 04/04/24 11:36 UA Ketone Negative Last Edit by VERONICA Mcconnell on 04/04/24 11:36 UA Bilirubin 0 mg/dL Last Edit by Jose Beard CCM on 04/04/24 11:36 UA Glucose 0 mg/dL Last Edit by Jose Beard CCM on 04/04/24 11:36 Results Reviewed Results Reviewed: Laboratory Last Values Urine pH (Auto) 6.0 04/04/24 11:35 Specific Thorp (Auto) 1.015 04/04/24 11:35 Urine Protein (Auto) 30 mg/dL 04/04/24 11:35 Glucose (UA)(Auto) 0 mg/dL 04/04/24 11:35 Urine Ketones (Auto) Negative 04/04/24 11:35 Urine Blood (Auto) 0 Arthur/uL 04/04/24 11:35 Urine Nitrite (Auto) Negative 04/04/24 11:35 Urine Bilirubin (Auto) 0 mg/dL 04/04/24 11:35 Urine Urobilinogen (Auto) 0.2 mg/dL 04/04/24 11:35 Leukocyte Esterase (Auto) 0 Leila/uL 04/04/24 11:35 Assessment & Plan Assessment & Plan (1) Nocturia associated with benign prostatic hyperplasia: Code(s): N40.1 - Benign prostatic hyperplasia with lower urinary tract symptoms; R35.1 - Nocturia Category: Medical Plan 12 month follow-up PVR and PSA Orders: Orders AMB Urinalysis Automated 04/04/24 Z13.9 - Encounter for screening, unspecified Prostate Specific Antigen 364 Days N40.1 - Benign prostatic hyperplasia with lower urinary tract symptoms, R35.1 - Nocturia Patient Instructions: Imaging studies, laboratory and physical exam results were discussed and reviewed in detail. No major barriers to patient understanding were identified. An opportunity to ask questions regarding the treatment plan was provided. All questions were answered. The patient expressed understanding and agreement with the above treatment plan. The patient is aware they should contact our office by phone for worsening of their current condition or the appearance of new urologic symptoms. Compliance is encouraged with any medications and followup testing that is ordered. It is a privilege to participate in the urologic care of your patient. If you have any questions or concerns regarding treatment for the above conditions, or other urologic issues, please do not hesitate to contact me. The office telephone contact is [phone]. This note is constructed using voice recognition software. While every effort has been made to ensure accuracy terrazzo worker helper errors may have been included. Yours sincerely, Dr Viktor Holland MD, EJ [facility] - Urology Providers of Expert, Compassionate Care for the Genitourinary System Coding Level of Care Code Est Pt Level 4 (38681) Diagnoses Nocturia associated with benign prostatic hyperplasia N40.1; R35.1 CPT Codes Post Residual Void - PVR CPT Code: 51234-Oifh Void Residual by ultrasound ([id number])
== END 2024-04-04 12:01 | disposition home or self-care (01) ==
LOC: HO.HUSH 11:22
PROVIDERS: PCP Internal Medicine; Visit Provider Urology
DX: Z13.9 Encounter for screening, unspecified (principal)
CPT/HCPCS: 99214

== ENCOUNTER → 2024-04-04 11:22 | Outpatient (BNVA) | payer MEDICARE, MEDICAID, SELFPAY | PROVIDERS: PCP Internal Medicine; Visit Provider Urology | DX: N40.1 Benign prostatic hyperplasia with lower urinary tract symptoms (principal); R35.1 Nocturia | CPT/HCPCS: 51798; 81003; 99212 ==

== ENCOUNTER 2024-04-05 10:50 | Outpatient (AMB) | payer MEDICARE, MEDICAID, SELFPAY ==
[2024-04-05 11:07] LABS: Prothrombin Time Whole Bld POC 15.6 sec (11.1-13.5); ~PT, ~INR - Anti Coag Clinic 1.3 (0.9-1.1)
--- NOTE | 2024-04-05 11:14 | MHC.OFFVISCO ---
Intake Intake Visit Reasons: Anticoagulation Allergies No Known Allergies Allergy (Mild, Verified 04/05/24 10:53) NOT APPLICABLE Medication List - Last Reconciled 04/05/24 by Magdalena Echeverria RN albuterol sulfate 90 mcg/actuation (Ventolin HFA) 1 puff inhalation RQ4H PRN atorvastatin 40 mg PO BEDTIME benztropine 1 mg PO BID cholecalciferol (vitamin D3) (Vitamin D3) 25 mcg PO QAM dicyclomine 20 mg PO BID divalproex ER 1,000 mg (2 x 500 mg) PO BEDTIME ferrous sulfate 324 mg PO DAILY fluphenazine decanoate 25 mg IM Q28D snfzadgrrim-jqmqbpuag-xtgerafa 100-62.5-25 mcg (Trelegy Ellipta) 1 inh inhalation RDAILY levothyroxine 25 mcg PO DAILY@0600 loratadine 10 mg PO DAILY magnesium oxide 400 mg PO BIDPC mupirocin 2% 1 appl See Protocol topical BID pantoprazole 40 mg PO BID phenazopyridine 200 mg PO TID PRN risperidone 1 mg PO BID tamsulosin 0.4 mg PO BEDTIME warfarin See Protocol 2 mg orally 4MG DAILY OR DIRECTED; 4MG DAILY OR DIRECTED Nursing Note PT.AND CAREGIVER FELIPE DENY ANY MISSED DOSES THIS WEEK. THERE HAVE BEEN NO MED CHANGES. \PT.ADMITS TO HAVING AT LEAST ONE CANNABIS JOINT DAILY, AND SOMETIMES MORE. LOW INR REPORTED TO PCP(JAKE AT CRITICAL LINE) WITH DOSING AND PLAN OF CARE. ? LOVENOX. WILL CONTACT [facility] AND [facility] IF LOVENOX ORDERED. WARFARIN DOSINMGM 2 DAYS THEN RESUME USUAL DOSE AND RECHECK INR HERE ON 04/10. GOOD UNDERSTANDING OF INSTR.BY FELIPE. Anti-Coag Initial Assessment Social Hx Patient Tobacco Use Status: Refuse Tobacco use screen alcohol intake: never Coding Level of Care Code Est Patient Level 1 Diagnoses Current use of anticoagulant therapy Z79.01 Assessment & Plan Assessment & Plan (1) Current use of anticoagulant therapy: Code(s): Z79.01 - custodial (current) use of anticoagulants Category: Medical
== END 2024-04-05 11:36 | disposition home or self-care (01) ==
LOC: HO.ACS 10:50
PROVIDERS: PCP Internal Medicine; Visit Provider Internal Medicine
DX: Z79.01 Long term (current) use of anticoagulants (principal)

== ENCOUNTER → 2024-04-05 10:50 | Outpatient (BNVA) | payer MEDICARE, MEDICAID, SELFPAY | PROVIDERS: PCP Internal Medicine; Visit Provider Internal Medicine | DX: Z95.2 Presence of prosthetic heart valve (principal); Z79.01 Long term (current) use of anticoagulants; Z51.81 Encounter for therapeutic drug level monitoring | CPT/HCPCS: 85610; 99211 ==

== ENCOUNTER 2024-04-10 11:00 | Outpatient (AMB) | payer MEDICARE, MEDICAID, SELFPAY ==
[2024-04-10 11:14] LABS: Prothrombin Time Whole Bld POC 28.7 sec (11.1-13.5); ~PT, ~INR - Anti Coag Clinic 2.4 (0.9-1.1)
--- NOTE | 2024-04-10 11:25 | MHC.OFFVISCO ---
Intake Intake Visit Reasons: Anticoagulation Allergies No Known Allergies Allergy (Mild, Verified 04/10/24 11:06) NOT APPLICABLE Medication List - Last Reconciled 04/10/24 by Raissa Hull RN albuterol sulfate 90 mcg/actuation (Ventolin HFA) 1 puff inhalation RQ4H PRN atorvastatin 40 mg PO BEDTIME benztropine 1 mg PO BID cholecalciferol (vitamin D3) (Vitamin D3) 25 mcg PO QAM dicyclomine 20 mg PO BID divalproex ER 1,000 mg (2 x 500 mg) PO BEDTIME ferrous sulfate 324 mg PO DAILY fluphenazine decanoate 25 mg IM Q28D nzzglilrcsb-nkcgipars-jfmabiot 100-62.5-25 mcg (Trelegy Ellipta) 1 inh inhalation RDAILY levothyroxine 25 mcg PO DAILY@0600 loratadine 10 mg PO DAILY magnesium oxide 400 mg PO BIDPC multivitamin with folic acid 400 mcg (Daily-Stanley (with folic acid)) 1 tab PO DAILY mupirocin 2% 1 appl See Protocol topical BID pantoprazole 40 mg PO BID phenazopyridine 200 mg PO TID PRN risperidone 1 mg PO BID tamsulosin 0.4 mg PO BEDTIME warfarin See Protocol 2 mg orally 4MG DAILY OR DIRECTED; 4MG DAILY OR DIRECTED Nursing Note INR: 2.4 in therapeutic range Medications and supplements reviewed- SENT A REQUEST WITH DOSING SHEET FOR A LIST OF MEDS AND SUPPLEMENTS- QUESTION IF HE HAS A NEW MVI THAT MAY BE AFFECTING HIS INR No changes in health, diet, medications, or supplements, Denies any signs and symptoms of bleeding or bruising or clotting. Bleeding, bruising, clotting discussed Nutritional guidance given - EAT A MIX OF FRUITS AND VEGETABLES Dose: INCREASE WEEKLY DOSE SLIGHTLY 2MG X 2 DAYS/ 4MG X 5 DAYS - DUE TO LOW TRENDING INRs F/U INR:1 WEEK 04/17/24 Patient verbalizes understanding of instructions given Anti-Coag Initial Assessment Social Hx Patient Tobacco Use Status: Refuse Tobacco use screen alcohol intake: never Questionnaires HAS-BLED Does the patient had uncontrolled Hypertension?: No Does the patient have renal disease?: Yes Does the patient have liver disease?: No Does the patient have a history of stroke?: No Has the patient had major bleeding or predisposition to bleeding?: Yes Does the patient have labile INRs?: Yes Is the patient over 65 years of age?: Yes Is the patient on medications that gives them a predisposition to bleeding?: Yes Does the patient use alcohol?: Yes HAS-BLED Score: 6 CHADSVASC Age: 66-74 Gender: Male Does the patient have a history of CHF?: No Does the patient have a history of Hypertension?: Yes Does the patient have a history of Stroke/TIA/Thromboembolism?: No Does the patient have a history of Vascular Disease (prior DC, PAD or aortic plaque)?: No Does the patient have a history of Diabetes?: No CHADS VACS Score: 2 Sonia Prediction Score Rsk VTE Active Cancer: No Previous VTE, excluding superficial vein thrombosis: No Reduced mobility: No Already known Thrombophilic Condition: No With-in last month Trauma and/or Surgery: No Elderly 70 year or older: Yes Heart and/or Respiratory Failure: No Acute Myocardial infarction and/or Ischemic Stroke: No Acute Infection and/or Rheumatologic Disorder: No Obesity (BMI 30 or greater): No Ongoing Hormonal Treatment: No Score: 1 Sonia Score less than 4; Low Risk of VTE Sonia Score 4 or greater; High Risk of VTE Coding Level of Care Code Est Patient Level 1 Diagnoses Current use of anticoagulant therapy Z79.01 Assessment & Plan Assessment & Plan (1) Current use of anticoagulant therapy: Code(s): Z79.01 - intermediate (current) use of anticoagulants Category: Medical
== END 2024-04-10 11:33 | disposition home or self-care (01) ==
LOC: HO.ACS 11:00
PROVIDERS: PCP Internal Medicine; Visit Provider Internal Medicine
DX: Z79.01 Long term (current) use of anticoagulants (principal)

== ENCOUNTER → 2024-04-10 11:00 | Outpatient (BNVA) | payer MEDICARE, MEDICAID, SELFPAY | PROVIDERS: PCP Internal Medicine; Visit Provider Internal Medicine | DX: Z95.2 Presence of prosthetic heart valve (principal); Z79.01 Long term (current) use of anticoagulants; Z51.81 Encounter for therapeutic drug level monitoring | CPT/HCPCS: 85610; 99211 ==

== ENCOUNTER 2024-04-17 11:22 | Outpatient (AMB) | payer MEDICARE, MEDICAID, SELFPAY ==
[2024-04-17 11:46] LABS: Prothrombin Time Whole Bld POC 21.4 sec (11.1-13.5); ~PT, ~INR - Anti Coag Clinic 1.8 (0.9-1.1)
--- NOTE | 2024-04-17 11:51 | MHC.OFFVISCO ---
Intake Intake Visit Reasons: Anticoagulation Allergies No Known Allergies Allergy (Mild, Verified 04/17/24 11:38) NOT APPLICABLE Medication List - Last Reconciled 04/17/24 by Nivia Beaver RN albuterol sulfate 90 mcg/actuation (Ventolin HFA) 1 puff inhalation RQ4H PRN atorvastatin 40 mg PO BEDTIME benztropine 1 mg PO BID cholecalciferol (vitamin D3) (Vitamin D3) 25 mcg PO QAM dicyclomine 20 mg PO BID divalproex ER 1,000 mg (2 x 500 mg) PO BEDTIME ferrous sulfate 324 mg PO DAILY fluphenazine decanoate 25 mg IM Q28D eqctnfqpdfb-nulkhjkrr-bybzalsw 100-62.5-25 mcg (Trelegy Ellipta) 1 inh inhalation RDAILY levothyroxine 25 mcg PO DAILY@0600 loratadine 10 mg PO DAILY magnesium oxide 400 mg PO BIDPC multivitamin with folic acid 400 mcg (Daily-Stanley (with folic acid)) 1 tab PO DAILY mupirocin 2% 1 appl See Protocol topical BID pantoprazole 40 mg PO BID phenazopyridine 200 mg PO TID PRN risperidone 1 mg PO BID tamsulosin 0.4 mg PO BEDTIME warfarin See Protocol 2 mg orally 4MG DAILY OR DIRECTED; 4MG DAILY OR DIRECTED Nursing Note INR: 1.8?out of therapeutic range of 2-3 Medications and supplements reviewed Pt was supposed to bring med list but states he forgot. He states there is no changes. Denies any signs and symptoms of bleeding or clotting or unusual bruising Bleeding, bruising, clotting discussed Dose: 6mg today then 4mg X 5 days and 2mg X 2 days F/U INR Date : 1 week Patient verbalizing understanding of instructions given. Anti-Coag Initial Assessment Social Hx Patient Tobacco Use Status: Refuse Tobacco use screen alcohol intake: never Coding Level of Care Code Est Patient Level 2 Diagnoses Current use of anticoagulant therapy Z79.01 Time Spent (min) 25 Comment pt teaching Results AMB INR Fingerstick AMB INR Fingerstick 1.8 Last Edit by Nivia Beaver RN on 04/17/24 11:45 interface delay Assessment & Plan Assessment & Plan (1) Current use of anticoagulant therapy: Code(s): Z79.01 - senior living (current) use of anticoagulants Category: Medical
--- OUTSIDE RECORDS SUMMARY | 2024-04-17 16:14 | XMS_ITS | Encounter Summary ---
Author Organization [employer] Address [address] [facility] 7 [place] [address] Care Team Providers Care Gluer Machine Setup Operator Name Role Phone Bc Hunter MD Primary Care Prov ider Reason for Visit * Reason Onset Date Comments Anticoagulation 04/05/2024 Encounter Details Date Type Department Care Team ([facility] Contact Info) Description 04/05/2024 Telephone [facility] CHC MED & PEDS [address] [place] [address] Bc Hunter MD [address] [place] [address] Anticoagulation Social History Tobacco Use Types Packs/Day Years Used Date Smoking Tobacco: Every Day Cigarettes Depression Answer Date Recorded Patient Health Questionnaire-9 Score 0 09/30/2023 Patient Health Questionnaire-9 Score 0 09/30/2023 Last PHQ-9: Questionnaire Data Not on file 0 09/30/2023 Housing Stability Answer Date Recorded What is your housing situation today? I have neto fernandez 07/19/[address] you li ve. Do you have problems with any of the following? None of the above 07/19/2023 Food Insecurity Answer Date Recorded Within the past 12 months, y ou worried that your food would run out before you got money to buy more: Never True 07/19/2023 Within the past 12 months,th e food you bought just didn't last and you didn't have enough money to get more: Never True Transportation Answer Date Recorded In the past 12 months, has l ack of transportation kept you from medical appts, meetings, work or from getting things needed for daily living? No 07/19/2023 Utilities Answer Date Recorded In the past 12 months, has t he electric, gas, oil or water company threatened to shut off services in your home? No 07/19/2023 Depression Answer Date Recorded Patient Health Questionnaire-2 Score 0 09/30/2023 Sex and Gender Information Value Date Recorded Sex Assigned at Male 01/19/2022 10:15 AM EDT Legal Sex Male 10:15 AM EDT Gender Identity Male 01/19/2022 10:15 AM EDT Sexual Orientation Choose not to disclose 2021 10:15 AM EDT documented as of this encounter Miscellaneous Notes * Telephone Encounter - Danielle Rodriguez RN - 04/05/2024 4:15 PM EST Noted. * Telephone Encounter - Cheryl Parker RN - 04/05/2024 11:18 AM EST Incoming call to the Critical Result line 04/05/24 at 11:19 AM Name of Caller/Facility:Kimberly [facility] anticoagulation Callback number: [phone] Reason for Call: INR of 1.3 today. Range 2-3. Pt did not miss any doses or any med changes. [facility] [place]. Pt instructed to take 6mg and tomorrow, resume 4mg Wednesday and Wednesday and 2mg onSunday and return on Wednesday04/10/24. Kimberly advised that [facility] closed for Holiday on Wednesday. To call in any critical results to Main line [phone] to be reported to senior information security analyst. If provider wants Lovenox for bridge to please call penitentiary to notify and will need to call penitentiary, no RN in the home, would need VNA to administer. Message to be forwarded to Bc Rascon MD and [facility] team nurses for follow up. documented in this encounter Plan of Treatment Not on file documented as of this encounter Visit Diagnoses Not on filedocumented in this encounter Additional Health Concerns Assessment Noted Time PHQ-9 Depression Total Score: 0 09/30/19 24 11:02 AM EDT documented as of this encounter Care Teams Gluer Machine Setup Operator Relationship Specialty Start Date End Date Bc Hunter MD [address] [place] [id number] PCP - General Internal Medicine 01/03/19 documented as of this encounter
--- OUTSIDE RECORDS SUMMARY | 2024-04-17 16:14 | XMS_ITS | Encounter Summary ---
Author Organization [employer] Address [address] [facility] [address] [place] [address] Care Team Providers Care Hotel Clerk Name Role Phone Bc Hunter MD Primary Care Prov ider Encounter Details Date Type Department Care Team (Late st Contact Info) Description 04/05/2024 Orders Only GENERIC EXTERNAL DATA DEPARTMENT Provider, Generic External Data Social History Tobacco Use Types Packs/Day Years [...] AM EDT documented as of this encounter Plan of Treatment Not on file documented as of this encounter Procedures Procedure Name Priority Date/Time Associated Diagnosis Comments PROTHROMBIN TIME WHOLE BLD POC Routine 04/05/2024 10:56 AM EST ~PT, ~INR - ANTI COAG CLINIC Routine 04/05/2024 10:56 AM EST documented in this encounter Results * (ABNORMAL) PROTHROMBIN TIME WHOLE BLD POC (04/05/2024 10:56 AM EST) Protime 15.6(H) 11.1 - 13.5 sec [facility] 04/05/2024 10:5 6 AM EST 04/05/2024 11:07 AM EST us Generic External Data Provider LAB BLOOD ORDERAB LES Final Result Performing Organization Address City/State/[facility] Co de Phone Number [facility] [address] [place] [phone] * (ABNORMAL) ~PT, ~INR - ANTI COAG CLINIC (04/05/2024 10:56 AM EST) Prothrombin Time INR 1.3(H) 0.9 - 1.1 [facility] Comment:METER #: [id number] TERNATIONAL NORMALIZED RATIO (INR) REFERENCE RANGES Reference RangeFor patients not on anticoagulant therapy: 0.9 - 1.1INR ranges for oral anticoagulanttherapy:For prevention and treatment of venous thrombosis and pulmonary embolism: 2.0 - 3.0For acute myocardial infarction with aspirin therapy: 2.0 - 3.0For acute myocardial infarction without aspirin therapy: 3.0 - 4.0For patients with mechanical prosthetic heart valves: 2.5 - 3.5 04/05/2024 10:5 6 AM EST 04/05/2024 11:07 AM EST us Generic External Data Provider LAB BLOOD ORDERAB LES Final Result [facility] [address] [place] [address] [phone] documented in this encounter Visit Diagnoses Not on filedocumented in this encounter Additional Health Concerns Assessment Noted Time PHQ-9 Depression Total Score: 0 09/30/19 24 11:02 AM EDT documented as of this encounter Care Teams Hotel Clerk Relationship Specialty Start Date End Date Bc Hunter MD [address] [place] [phone] PCP - General Internal Medicine 01/03/19 documented as of this encounter
--- OUTSIDE RECORDS SUMMARY | 2024-04-17 16:14 | XMS_ITS | Encounter Summary ---
Author Organization [employer] Address [address] [place] [address] Care Team Providers Care Deputy Register Of Deeds Name Role Phone Bc Hunter MD Primary Care Prov ider Encounter Details Date Type Department Care Team (Late st Contact Info) Description 09/20/2023 Orders Only [facility] CHC MED & PEDS [address] [place], [place] [phone] Bc Hunter MD [address] [place] [address] Social History Tobacco Use Types Packs/Day Years Used Date Smoking Tobacco: Every Day Cigarettes Depression Answer Date Recorded Patient Health Questionnaire-9 Score 0 07/10/2022 Housing Stability Answer Date Recorded What is your housing situation today? I have netochica fernandez 07/19/[address] you [...] Date Recorded Patient Health Questionnaire-2 Score 0 07/10/2022 Sex and Gender Information Value Date Recorded [...] Noted Time PHQ-9 Depression Total Score: 0 07/11/19 23 11:26 AM EDT documented as of this encounter Care Teams Deputy Register Of Deeds Relationship Specialty Start Date End Date Bc Hunter MD [address] [place] [phone] PCP - General Internal Medicine 01/03/19 documented as of this encounter
--- OUTSIDE RECORDS SUMMARY | 2024-04-17 16:15 | XMS_ITS | Encounter Summary ---
Author Organization [employer] Address [address] [facility] [address] [place] [address] Care Team Providers Care Box Blank Machine Feeder Name Role Phone Bc Hunter MD Primary Care Prov ider Reason for Visit * Reason Onset Date Comments Med Refill 05/12/2022 Encounter Details Date Type Department Care Team (Late st Contact Info) Description 05/12/2022 Telephone [facility] MEDICINE [address] [place] [address] Bc Hunter MD [address] [place], [place] [phone] Med Refill Social History Tobacco Use Types Packs/Day Years Used Date Smoking Tobacco: Never Assessed Sex and Gender Information Value Date Recorded Sex Assigned at Male 01/19/2022 10:15 AM EDT Legal Sex Male 10:15 AM EDT Gender Identity Male 01/19/2022 10:15 AM EDT Sexual Orientation Choose not to disclose 2021 10:15 AM EDT COVID-19 Exposure Response Date Recorded In the last 10 days, have yo u been in contact with someone who was confirmed or suspected to have Coronavirus/COVID-19? No / Unsure 04/28/2022 1:05 PM EST documented as of this encounter Miscellaneous Notes * Telephone Encounter - Julian Randhawa - 05/12/2022 10:36 AM EST Tc from pt requesting med refill Warfarin 2 mg Lipitor 40 mg Magnesium 400 mg Folic acid 1 mg documented in this encounter Plan of Treatment Not on file documented as of this encounter Visit Diagnoses Not on filedocumented in this encounter Care Teams Box Blank Machine Feeder Relationship Specialty Start Date End Date Bc Hunter MD [address] [place] [phone] PCP - General Internal Medicine 01/03/19 documented as of this encounter
--- OUTSIDE RECORDS SUMMARY | 2024-04-17 16:15 | XMS_ITS | Encounter Summary ---
Author Organization [employer] Address [address] [facility] [address] [place] [address] Care Team Providers Care Panel Machine Setter Name Role Phone Bc Hunter MD Primary Care Prov ider Reason for Visit * Reason Comments Med Refill Encounter Details Date Type Department Care Team ([facility] st Contact Info) Description 03/19/2024 Refill [facility] MEDICINE [address] [place] [address] Zafar Richard MD [address] [place] [address] Mixed hyperlipidemia Social History Tobacco Use Types Packs/Day Years [...] documented as of this encounter Visit Diagnoses Diagnosis Mixed hyperlipidemia documented in this encounter Additional Health Concerns Assessment Noted Time PHQ-9 Depression Total Score: 0 09/30/19 24 11:02 AM EDT documented as of this encounter Care Teams Panel Machine Setter Relationship Specialty Start Date End Date Bc Hunter MD [address] [place] [phone] PCP - General Internal Medicine 01/03/19 documented as of this encounter
--- OUTSIDE RECORDS SUMMARY | 2024-04-17 16:15 | XMS_ITS | Encounter Summary ---
Author Organization [employer] Address [address] [facility] 7 [place] [address] Care Team Providers Care Aerial Hurricane Hunter Name Role Phone Bc Hunter MD Primary Care Prov ider Reason for Visit * Reason Onset Date Comments Nurse Triage 05/26/2023 Encounter Details Date Type Department Care Team (Late st Contact Info) Description 05/26/2023 Telephone [facility] [address] [place] [address] Bc Hunter MD [address] [place], [place] [phone] Nurse Triage Social History Tobacco Use Types Packs/Day Years Used Date Smoking Tobacco: Unknown Depression Answer Date Recorded Patient Health Questionnaire-9 Score 0 07/10/2022 Housing Stability Answer Date Recorded What is your housing situation today? I have neto fernandez 01/14/[address] you li ve. Do you have problems with any of the following? None of the above 01/14/2023 Food Insecurity Answer Date Recorded Within the past 12 months, y ou worried that your food would run out before you got money to buy more: Never True 01/14/2023 Within the past 12 months,th e food you bought just didn't last and you didn't have enough money to get more: Never True Transportation Answer Date Recorded In the past 12 months, has l ack of transportation kept you from medical appts, meetings, work or from getting things needed for daily living? No 01/14/2023 Utilities Answer Date Recorded In the past 12 months, has t he electric, gas, oil or water company threatened to shut off services in your home? No 01/14/2023 Depression Answer Date Recorded Patient Health Questionnaire-2 Score 0 07/10/2022 Sex and Gender Information Value Date Recorded Sex Assigned at Male 01/19/2022 10:15 AM EDT Legal Sex Male 10:15 AM EDT Gender Identity Male 01/19/2022 10:15 AM EDT Sexual Orientation Choose not to disclose 2021 10:15 AM EDT documented as of this encounter Miscellaneous Notes * Telephone Encounter - Cecille Pena RN - 05/26/2023 10:58 AM EST Triage call Pt is in jail, Krystin Sepulveda taking call and consent is signed by Pt for staff to speak . Pt has had some changes. Pt decided to stop all psyche medications and MD Ward Myers,discontinued them. (Stop date unknown) Pt has since that time decreased eating, appetite is poor. Pt weight yesterday at cupola operator apt is 173lbs. Pt was said to be around 202lbs regularly. Pt clothes are fitting very loosely now. Pt also wanted to stop coumadin but, cupola operator instructed that wouldn't be good to do so Pt continues to take coumadin as prescribed. Pt is needing to see PCP for e valuation and is given apt with PCP 06/01/23 @ 1115am. Insurance is verified as active prior to booking. Advised to continue to encourage fluids, milkshakes, broth. Maybe obtain some type of food Pt really likes to eat. Staff agrees with disposition and home care advised . Protocol Used: Eating Problems Protocol-Based Disposition: See in Office or Video Visit within 3 Days Override (Final) Disposition: See in Office or Video Visit within 2 Weeks Override Reason: No appointments available Positive Triage Question: * Losing weight and cause unknown * All higher-acuity triage questions were negative Care Advice Discussed: * Reasons To Call Back - Eating problem not improved with the information given - You have other questions or concerns * Telephone Encounter - Kamala Merchant - 05/26/2023 9:49 AM EST Symptom: Weight Loss Outcome: Schedule an appointment to be seen within 24 hours Reason: Caller denied all higher acuity questions The caller accepted this outcome [phone] documented in this encounter Plan of Treatment Not on file documented as of this encounter Visit Diagnoses Not on filedocumented in this encounter Additional Health Concerns Assessment Noted Time PHQ-9 Depression Total Score: 0 07/11/19 23 11:26 AM EDT documented as of this encounter Care Teams Aerial Hurricane Hunter Relationship Specialty Start Date End Date Bc Hunter MD [address] [place] [id number] PCP - General Internal Medicine 01/03/19 documented as of this encounter
--- OUTSIDE RECORDS SUMMARY | 2024-04-17 16:15 | XMS_ITS | Encounter Summary ---
Author Organization [employer] Address [address] [facility] [address] [place] [address] Care Team Providers Care Industrial Real Estate Agent Name Role Phone Bc Hunter MD Primary Care Prov ider Reason for Visit * Reason Comments Med Refill Encounter Details Date Type Department Care Team ([facility] st Contact Info) Description 05/18/2023 Refill [facility]S [address] [place] [address] Bc Hunter MD [address] [place] [address] Social History Tobacco Use Types Packs/Day Years [...] documented as of this encounter Care Teams Industrial Real Estate Agent Relationship Specialty Start Date End Date Bc Hunter MD [address] [place] [id number] PCP - General Internal Medicine 01/03/19 documented as of this encounter
--- OUTSIDE RECORDS SUMMARY | 2024-04-17 16:15 | XMS_ITS | Encounter Summary ---
Author Organization [employer] Address [address] [facility] 7 [place] [address] Care Team Providers Care Reproduction Machine Loader Name Role Phone Bc Hunter MD Primary Care Prov ider Reason for Visit * Reason Onset Date Comments other 06/04/2022 Encounter Details Date Type Department Care Team ([facility] st Contact Info) Description 06/04/2022 Telephone [facility] [address] [place] [address] Bc Hunter MD [address] [place], [place] [phone] other Social History Tobacco Use Types Packs/Day Years Used Date Smoking Tobacco: Never Assessed Depression Answer Date Recorded Patient Health Questionnaire-9 [...] suspected to have Coronavirus/COVID-19? No / Unsure 07/28/2022 1:00 PM EDT documented as of this encounter Miscellaneous Notes * Telephone Encounter - Migdalia Barrera RN - 06/04/2022 3:32 PM EDT [facility] Kayla requesting PRE-OP notes to be faxed to [phone],Facing Slitter advised PRE-OP appt was cancelled 06/01/22 and is requesting a call back for clarification. Please contact [phone] ext [phone] Please see above message. Thanks * Telephone Encounter - Gena Sampson - 06/04/2022 12:40 PM EDT Tc from [facility] Kayla requesting PRE-OP notes to be faxed to [phone],Facing Slitter advised PRE-OP appt was cancelled 06/01/22 and is requesting a call back for clarification. Please contact [phone] ext [phone] documented in this encounter Plan of Treatment Not on file documented as of this encounter Visit Diagnoses Not on filedocumented in this encounter Care Teams Reproduction Machine Loader Relationship Specialty Start Date End Date Bc Hunter MD [address] [place] [id number] PCP - General Internal Medicine 01/03/19 documented as of this encounter
--- OUTSIDE RECORDS SUMMARY | 2024-04-17 16:15 | XMS_ITS | Encounter Summary ---
Author Organization [employer] Address [address] [facility] [address] 7 [place] [address] Care Team Providers Care Auto Dismantler Name Role Phone Bc Hunter MD Primary Care Prov ider Encounter Details Date Type Department Care Team (Late st Contact Info) Description 05/18/2022 Orders Only [facility] MED & PEDS [address] [place], [place] [phone] Bc Hunter MD [address] [place], [place] [phone] S/P aortic valve replacement Social History Tobacco Use Types Packs/Day Years [...] PM EST documented as of this encounter Plan of Treatment Not on file documented as of this encounter Visit Diagnoses Diagnosis S/P aortic valve replacement Heart valve replaced by other means documented in this encounter Care Teams Auto Dismantler Relationship Specialty Start Date End Date Bc Hunter MD [address] [place], [place] [phone] PCP - General Internal Medicine 01/03/19 documented as of this encounter
--- OUTSIDE RECORDS SUMMARY | 2024-04-17 16:15 | XMS_ITS | Encounter Summary ---
Author Organization [employer] Address [address] [place] [address] 7 [place] [address] Care Team Providers Care Credit Administration Officer Name Role Phone Bc Hunter MD Primary Care Prov ider Reason for Visit * Reason Comments Med Refill Encounter Details Date Type Department Care Team (Late st Contact Info) Description 10/25/2022 Refill [facility] MED & PEDS [address] [place] [address] Bc Hunter MD [address] [place] [address] Social History Tobacco Use Types Packs/Day Years Used Date Smoking Tobacco: Never Assessed Depression Answer Date Recorded Patient Health Questionnaire-9 Score 0 07/10/2022 Depression Answer Date Recorded Patient Health Questionnaire-2 [...] documented as of this encounter Care Teams Credit Administration Officer Relationship Specialty Start Date End Date Bc Hunter MD [address] [place], [place] [phone] PCP - General Internal Medicine 01/03/19 documented as of this encounter
--- OUTSIDE RECORDS SUMMARY | 2024-04-17 16:15 | XMS_ITS | Encounter Summary ---
Author Organization [employer] Address [address] [facility] 7 [place] [address] Care Team Providers Care Sample Selector Name Role Phone Bc Hunter MD Primary Care Prov ider Reason for Visit * Reason Onset Date Comments Med Refill 05/15/2022 Encounter Details Date Type Department Care Team ([facility] st Contact Info) Description 05/15/2022 Telephone [facility] MED & PEDS [address] [place] [address] Bc Hunter MD [address] [place] [address] Med Refill Social History Tobacco Use Types [...] encounter Miscellaneous Notes * Telephone Encounter - Laurie Deluca RN - 05/18/2022 11:31 AM EST Call to pharmacy. RN informed the Rx cannot be dispensed as written. Informed the health insurance is now requesting specific instructions in order for Rx to be dispensed. Advised that maybe Rx include a max daily dose. Call placed to [facility] Coumadin clinic. Per Della, pt is currently taking 4mg daily. INR last checked on05/06. Result of 3.3. Pt's INR is being checked every 2 weeks. She states pt's chart shows that he has 1mg tabs on file, not 2mg tabs. Will update chart to 2mg as this is what [facility] has on file and whathas been getting sent to the pharmacy. She is requesting that additional tabs be sent just in case pt's dose has to be adjusted. Per Della, pt's target range in 2-3. Reports INR of 3.3 on 04/22, 2.3 on 04/01 2.3, on 03/18 3.3 and on 03/04 2.8. Will forward to PCP to review. Please advise. * Telephone Encounter - Pign Nettles - 05/15/2022 11:54 AM EST Tc from Amy with [facility] Pharmacy requesting some kinds of specific directions for warfarin (Coumadin) 2 MG tablet If any question please contact amy at [phone] documented in this encounter Plan of Treatment Not on file documented as of this encounter Visit Diagnoses Not on filedocumented in this encounter Care Teams Sample Selector Relationship Specialty Start Date End Date Bc Hunter MD [address] [place] [id number] PCP - General Internal Medicine 01/03/19 documented as of this encounter
--- OUTSIDE RECORDS SUMMARY | 2024-04-17 16:15 | XMS_ITS | Encounter Summary ---
Author Organization [employer] Address [address] [place] [address] 7 [place] [address] Care Team Providers Care Sales Rep Name Role Phone Bc Hunter MD Primary Care Prov ider Reason for Visit * Reason Onset Date Comments Med Refill 09/21/2022 Encounter Details Date Type Department Care Team (Late st Contact Info) Description 09/21/2022 Telephone [facility] CH[facility] MED & PEDS [address] [place] [address] Bc Hunter MD [address] [place] [address] Med Refill Social History Tobacco Use Types [...] Telephone Encounter - Laurie Deluca RN - 09/23/2022 8:28 AM EDT Pt managed by [facility] coumadin clinic. Last INR of 3.1 noted 09/17/22. Will forward request for Rx to covering provider to review. * Telephone Encounter - Ping Nettles - 09/21/2022 10:39 AM EDT Tc from pt requesting med refill on Warfarin 1 mg tablet [id number] [place], [place] - [address] [place] [address] Please sent to documented in this encounter Plan of Treatment Not on file documented as of this encounter Visit Diagnoses Diagnosis History of Coumadin therapy- Primary S/P aortic valve replacement Heart valve replaced by other means documented in this encounter Additional Health Concerns Assessment Noted Time PHQ-9 Depression Total Score: 0 07/11/19 23 11:26 AM EDT documented as of this encounter Care Teams Sales Rep Relationship Specialty Start Date End Date Bc Hunter MD [address] [place] [phone] PCP - General Internal Medicine 01/03/19 documented as of this encounter
--- OUTSIDE RECORDS SUMMARY | 2024-04-17 16:15 | XMS_ITS | Clinical Summary ---
Author Organization [facility], Address [address] [place] [address] [place] [address] Phone Care Team Providers Care Forming Mill Operator Name Role Phone YatesBc Primary Care Provider Allergies No known active allergies Medications D3-50 1.25 MG (18658 UT) capsule TAKE 1 CAPSULE BY MOUTH EVERY WEEK ON WEDNESDAYS UNTIL 9 Active levothyroxine (SYNTHROID, LEVOTHROID) 25 MCG tablet Take 1 tablet by mouth 1 (one) time each day Active magnesium oxide (MAG-OX) 400 MG tablet Take 1 tablet by mouth 2 (two) times a day with meals 9 Active Multiple Vitamin (DAILY-ARNOLDO) tablet Take 1 tablet by mouth 1 (one) time each day with food. 9 Active ferrous sulfate 325 (65 Fe) MG EC tablet Take 325 mg by mouth 3 (three) times a day with meals Do not crush, chew, or split. Active folic acid (FOLVITE) 1 MG tablet Take 1 mg by mouth 1 (one) time each day Active tamsulosin (FLOMAX) 0.4 MG 24 hr capsule Take 1 capsule by mouth 1 (one) time each day 2 Active demeclocycline (DECLOMYCIN) 300 MG tablet TAKE 1 TABLET BY MOUTH IN THE MORNING AND 1 TABLET IN THE EVENING. 60 tablet 5 3 Active Active Problems Problem Noted Date Diagnosed Date Iron deficiency anemia 07/20/2022 Hypo-osmolality and hyponatremia 07/14/2021 Stage 3a chronic kidney disease 03/10/2019 Resolved Problems Problem Noted Date Diagnosed Date Resolved Date Chronic orthostatic hypotension 04/17/2019 09/20/2019 Dyslipidemia 03/10/2019 03/13/2021 Hyponatremia 03/10/2019 03/13/2021 Hypothyroidism 03/10/2019 03/13/2021 Family History Medical History Relation Comments Diabetes Mother Heart disease Mother Stroke Mother Kidney disease Sibling 1 Kidney disease Sibling 2 brother Diabetes Sibling 3 brother Relation Status Comments Father Mother Unknown Sibling 1 Sibling 2 Sibling 3 Social History Tobacco Use Types Packs/Day Years Used Date Smoking Tobacco: Smoker, Current Status Unknown Tobacco Cessation:Ready to Q uit: Not Asked; Counseling Given: Not Answered Sex and Gender Information Value Date Recorded Sex Assigned at Not on file Legal Sex Male 4:36 PM EST Gender Identity Not on file Sexual Orientation Not on file Last Filed Vital Signs Vital Sign Reading Time Taken Comments Blood Pressure 88/56 10/07/2022 3:03 PM EDT Pulse 74 04/17/2019 4:12 PM EST Temperature - - Respiratory Rate 16 04/17/2019 4:12 PM EST Oxygen Saturation - - Inhaled Oxygen Concentration - - Weight 87.8 kg (193 lb 9.6 oz) 10/07/2022 3:03 P M EDT Height 182.9 cm (6') 10/07/2022 3:03 PM EDT Body Mass Index 26.26 10/07/2022 3:03 PM EDT Plan of Treatment Upcoming Encounters Date Type Department Care Team (Late st Contact Info) Description 09/19/2024 1:45 PM EDT Office Visit [facility] [address] [place] [address] Trever Lopez MD [address] [place] [phone] Health Maintenance Due Date Last Done Comments Colorectal Cancer Screening: Annual FOBT 2001 Colorectal Cancer Screening: Colonoscopy 2001 Colorectal Cancer Screening: Sigmoidoscopy 2001 Pneumococcal Vaccine: 65+ Ye ars (2 of 2 - PCV) 11/23/2015 11/22/2014 Influenza Vaccine (#1) 2023 Hepatitis B Vaccine Aged Out No longe r eligible based on patient's age to complete this topic Insurance MEDICARE MEDICAID [place] Care Teams Forming Mill Operator Relationship Specialty Start Date End Date Bc Yates: [phone] PCP - General Internal Medicine 10/05/22
--- OUTSIDE RECORDS SUMMARY | 2024-04-17 16:15 | XMS_ITS | Clinical Summary ---
Author Organization [employer] Address [address] [facility] 7[address] [place] [address] Care Team Providers Care Senior Gamemaster Name Role Phone Bc Hunter MD Primary Care Prov ider Allergies No known active allergies Medications tamsulosin (Flomax) 0.4 MG 24 hr capsule TAKE 1 CAPSULE BY MOUTH EVERY DAY IN THE MORNING 90 capsule 023 Active albuterol (ProAir HFA) 108 (90 Base) MCG/ACT inhaler inhale 2 puff by inhalation route every 4 hours as needed 18 g 3 024 Active benztropine (Cogentin) 1 MG tablet Take 1 tablet by mouth 2 times daily. 024 Active divalproex (Depakote ER) 500 MG 24 hr tablet Take 2 tablets by mouth at bedtime. 024 Active fluPHENAZine decanoate (Prolixin) 25 MG/ML injection Inject 25 mg into the shoulder, thigh, or buttocks every 28 (twenty-eight) days. 024 Active risperiDONE (RisperDAL) 1 MG tablet Take 1 tablet by mouth 2 times daily. 020 Active mometasone (Elocon) 0.1 % lotion Apply topically Once per day. Please provide scalp solution 60 mL 024 2024 Active ferrous sulfate 325 (65 Fe) MG tablet Take 1 tablet (325 mg) by mouth with breakfast. 90 tablet 3 024 2024 Active ketoconazole (Nizoral) 2 % shampooIndication s:Seborrheic dermatitis of scalp Apply topically 2 (two) times a week. Use to wash out flucinonide oil in the morning 3x/week as directed 100 mL 2 Active levothyroxine (Synthroid, Levoxyl) 25 MCG tablet TAKE 1 TABLET BY MOUTH EVERY DAY AT 6 AM 90 tablet 3 024 Active levothyroxine (Synthroid, Levoxyl) 25 MCG tablet TAKE 1 TABLET (25 MCG) BY MOUTH IN THE MORNING 90 tablet 3 024 Active magnesium oxide (Mag-Ox) 400 (240 Mg) MG tabletIndications :Mixed hyperlipidemia TAKE 1 TABLET BY MOUTH TWICE A DAY 180 tablet 1 024 Active Trelegy Ellipta 100-62.5-25 MCG/ACT aerosol powder Inhale 1 puff Once per day. 60 each 3 024 Active Multiple Vitamin (Daily-Stanley Multivitamin) tablet Take 1 tablet by mouth Once per day. TAKE 1 TABLET BY MOUTH EVERY DAY WITH FOOD 90 tablet 3 024 Active dicyclomine (Bentyl) 20 MG tabletIndications :Irritable bowel syndrome with diarrhea TAKE 1 TABLET BY MOUTH BEFORE BREAKFAST AND BEFORE EVENING MEAL. 180 tablet 1 024 Active pantoprazole (ProtoNix) 40 MG EC tabletIndications :Gastroesophageal reflux disease without esophagitis TAKE 1 TABLET BY MOUTH TWICE A DAY IN THE MORNING AND IN THE EVENING 180 tablet 1 024 Active albuterol 108 (90 Base) MCG/ACT inhaler Inhale 2 puffs every 4 (four) hours if needed for wheezing. 18 g 1 024 2024 Active loratadine (Claritin) 10 MG tablet Take 1 tablet (10 mg) by mouth if needed each day for allergies. 30 tablet 2 Active atorvastatin (Lipitor) 40 MG tabletIndications :Mixed hyperlipidemia TAKE 1 TABLET BY MOUTH EVERY DAY IN THE MORNING 90 tablet 1 024 Active warfarin (Coumadin) 2 MG tabletIndications :S/P aortic valve replacement TAKE 1-2 TABLETS EVERY EVENING DIRECTED BY COUMADIN CLINIC 180 tablet 1 Active warfarin (Coumadin) 2 MG tabletIndications :S/P aortic valve replacement Take 1-2 tablets every evening as directed by Coumadin Clinic 180 tablet 1 024 2023 Discontinued atorvastatin (Lipitor) 40 MG tabletIndications :Mixed hyperlipidemia Take 1 tablet (40 mg) by mouth in the morning. 90 tablet 1 024 2023 Discontinued Active Problems Problem Noted Date Diagnosed Date Seborrheic dermatitis of scalp 01/26/2023 Assessment & Plan (07/20/2023 8:52 PM EDT): Followed by [facility] Derm clinic Refill of topical ketoconazole and derma-smoothe oil sent to pharmacy Assessment & Plan (01/26/2023 1:34 PM EST): Will refer to dermatology, he has been using ketoconazole shampoo without improvement. Sprain of left ankle 10/28/2022 Assessment & Plan (10/28/2022 12:10 PM EDT): Twisted his ankle about 1 week ago, he did not wanted to seek er evaluation, on today examination no bruises were seen, foot was swollen, he was able to put weight. Told to raise extremity, rest, apply ice, will order a xray, and will send a ankle support, in case of worsening call back Hyperlipemia, mixed 07/20/2022 Assessment & Plan (09/30/2023 11:43 AM EDT): On atorvastatin 40mg, no side effects reported, LDL<100, no changes Assessment & Plan (05/06/2023 1:00 PM EST): On atorvastatin, no side effects reported, will order new labs for guidance Assessment & Plan (10/28/2022 12:08 PM EDT): Controlled, continue atorvastatin, no changes will be made Assessment & Plan (07/20/2022 8:42 PM EDT): On atorvastatin, will order new labs for guidance of therapy Benign prostatic hyperplasia with urinary freque ncy 07/20/2022 Bilateral impacted cerumen 07/20/2022 Assessment & Plan (07/20/2022 8:42 PM EDT): Will provide debrox, apply for 1 week then will schedule a nurse visit for ear irrigation Iron deficiency anemia 07/20/2022 Assessment & Plan (09/30/2023 11:42 AM EDT): Will renew iron replacement, continue monitoring Assessment & Plan (05/06/2023 12:59 PM EST): Will order new labs for guidance of therapy, no reported bleeding events Physical exam 07/20/2022 Assessment & Plan (09/30/2023 11:43 AM EDT): Will send for colon cancer screening cologuard History of Coumadin therapy 04/28/2022 Assessment & Plan (04/28/2022 1:52 PM EST): Patient on coumadin therapy, he is on 4mg every day and 6mg on Wednesday, no episode of bleeding, he is followed at coumadin clinic every 3 weeks, last INR repoted form 04/22 was 3.3, range should be 2.3-3.5. S/P aortic valve replacement 04/28/2022 Overview (07/20/2023): Followed by [facility] Assessment & Plan (07/20/2023 8:46 PM EDT): Cardiology consult scheduled 07/20/23 No reported hx of bleeding, no reported chest pain/shortness of breath Discussed with PCP and [facility] Cou[facility]in [facility] (Lori FLETCHER). Plan to bridge pt from Eliquis to Coumadin. May DC Eliquis once Coumadin therapeutic Coumadin dosinmg on Wednesday and Wednesday 4mg all other days of the week Plan: [facility] Coagulation clinic to reach out to long-term to schedule INR check and re-start on previous dosing of coumadin. Assessment & Plan (07/20/2022 8:45 PM EDT): Followed by cardiology, on warfarin lifelong, no reported hx of bleeding, no reported chest pain/shortness of breath Pre-op evaluation 04/28/2022 Assessment & Plan (01/26/2023 1:37 PM EST): Patient denied chest pain or shortness of breath. He is physically active, Mets>4, he will undergo a low risk procedure. Told to continue current medications, including anticoagulation. He is cleared for right eye cataract surgery. Assessment & Plan (04/28/2022 1:54 PM EST): Patient will undergo left eye cataract surgery. Patient Mets>4 no chest pain or shortness of breath reported. Patient is cleared for surgery, he has no contraindications. Stage 3a chronic kidney disease 03/10/2019 Assessment & Plan (09/30/2023 11:41 AM EDT): Followed by nephrology, his renal function has remained stable, continue bp control, no changes will be made Assessment & Plan (10/28/2022 12:08 PM EDT): Followed by nephrology Hypothyroidism 09/22/2011 Assessment & Plan (09/30/2023 11:42 AM EDT): On levothyroxine, has remained clinically and chemically euthyroid, no changes will be made Assessment & Plan (05/06/2023 12:59 PM EST): Clinically euthyroid will order new labs for guidance of therapy, no nodules palpated Mild chronic obstructive pulmonary disease 09/21 Other schizophrenia 09/22/2011 Overview (07/20/2023): Living in [facility] Assessment & Plan (07/30/2023 12:17 AM EDT): Appointment with psych scheduled for 08/04, currently on benztropine, risperidone 1mg BID, divalproex 1000mg daily, -henzopyridine 200mg tid, prolixi monthly, will follow up receomdations. Patient back to baseline, no suicidal/homicidal ideas Assessment & Plan (07/20/2023 8:51 PM EDT): Current med regimen through psych: Prolixen 25mg IM Q28 days (last admin 07/08/23). To be administered by [facility] Benztropine 1mg BID Valproic acid 1000mg daily Risperidone 1mg BID Plan to follow up with psychiatrist as scheduled 08/04/23 Encounters Date Type Department Care Team Description 04/17/2024 Orders Only GENERIC EXTERNAL DATA DEPARTMENT Provider, Generic External Data 04/10/2024 Orders Only GENERIC EXTERNAL DATA DEPARTMENT Provider, Generic External Data 04/05/2024 Telephone [facility] [address] [place] [address] Bc [facility] 04/05/2024 Orders Only GENERIC EXTERNAL DATA DEPARTMENT Provider, Generic External Data 03/29/2024 Orders Only GENERIC EXTERNAL DATA DEPARTMENT Provider, Generic External Data 03/19/2024 Refill [facility] [address] [place] [address] Oralia Mazariegos FNP S/P aortic valve replacement 03/19/2024 Refill [facility] [address] [place] [address] Zafar Richard MD Mixed hyperlipidemia 03/01/2024 Orders Only GENERIC EXTERNAL DATA DEPARTMENT Provider, Generic External Data 02/28/2024 Refill [facility] [address] [place] [address] Bc Hunter MD 02/02/2024 Orders Only GENERIC EXTERNAL DATA DEPARTMENT Provider, Generic External Data 01/24/2024 Refill [facility] [address] [place] [address] Bc Hunter MD from Last 3 Months Social History Tobacco Use Types Packs/Day Years Used Date Smoking Tobacco: Every Day Cigarettes Tobacco Cessation:Ready to Q uit: Not Asked; Counseling Given: Not Answered Depression Answer Date Recorded Patient Health Questionnaire-9 [...] not to disclose 2021 10:15 AM EDT Last Filed Vital Signs Vital Sign Reading Time Taken Comments Blood Pressure 118/68 09/30/2023 11:01 AM EDT Pulse 96 09/30/2023 11:01 AM EDT Temperature 37.1 ??C (98.7 ??F) 09/30/2023 11:01 AM E DT Respiratory Rate 20 09/30/2023 11:01 AM EDT Oxygen Saturation 97% 07/19/2023 9:56 AM EDT Inhaled Oxygen Concentration - - Weight 80.7 kg (178 lb) 09/30/2023 11:01 AM EDT Height 182.9 cm (6') 09/30/2023 11:01 AM EDT Body Mass Index 24.14 09/30/2023 11:01 AM EDT Plan of Treatment Health Maintenance Due Date Last Done Comments CT Colonography 1952 Colonoscopy 1952 Colorectal Cancer Screening 1952 FIT DNA/Cologuard 1952 FIT 1952 FOBT 1952 Sigmoidoscopy 1952 Alcohol/Substance Use Screening 1964 RSV Patients and Patients Aged 60 years or older (1 - Risk 60-74 years 1-dose series) 2012 Pneumococcal Vaccine: 65+ Years (3 of 3 - PPSV23 or PCV20) 03/17/2020 03/17/2019, 11/22/2014, 06/17/2000 Zoster Vaccines (2 of 2) 06/27/2021 05/02/2021 COVID-19 Vaccine (4 - season) 2023 01/09/2021, 05/16/2020, 04/25/2020 Influenza Vaccine (#1) 2023 , 12/11/2020, 03/17/2019, Additional history exists SDOH Screening 07/18/2024 07/19/2023 Depression Screening 09/29/2024 09/30/2023, 09/30/19 24 Tobacco Screening 09/29/2024 09/30/2023 Lipid Panel 05/06/2028 05/06/2023, 07/10/2022 DTaP/Tdap/Td Vaccines (3 - Td or Tdap) 05/02/2031 05/02/2021, 07/15/2010, 06/24/1999 Hepatitis C Screening Completed 07/10/2022 HIB Vaccines Aged Out No longer eligi ble based on patient's age to complete this topic HPV Vaccines Aged Out No longer eligi ble based on patient's age to complete this topic Hepatitis A Vaccines Aged Out No long er eligible based on patient's age to complete this topic Hepatitis B Vaccines Aged Out No long er eligible based on patient's age to complete this topic IPV Vaccines Aged Out No longer eligi ble based on patient's age to complete this topic Meningococcal Vaccine Aged Out No juan daniel yariel eligible based on patient's age to complete this topic RSV under 20 months Aged Out No longe r eligible based on patient's age to complete this topic Rotavirus Vaccines Aged Out No longer eligible based on patient's age to complete this topic Procedures Procedure Name Priority Date/Time Associated Diagnosis Comments PROTHROMBIN TIME WHOLE BLD POC Routine 04/17/2024 11:43 AM EST ~PT, ~INR - ANTI COAG CLINIC Routine 04/17/2024 11:43 AM EST PROTHROMBIN TIME WHOLE BLD POC Routine 04/10/2024 11:12 AM EST ~PT, ~INR - ANTI COAG CLINIC Routine 04/10/2024 11:12 AM EST PROTHROMBIN TIME WHOLE BLD POC Routine 04/05/2024 10:56 AM EST ~PT, ~INR - ANTI COAG CLINIC Routine 04/05/2024 10:56 AM EST PROTHROMBIN TIME WHOLE BLD POC Routine 03/29/2024 1:40 PM EST ~PT, ~INR - ANTI COAG CLINIC Routine 03/29/2024 1:40 PM EST PROTHROMBIN TIME WHOLE BLD POC Routine 03/01/2024 11:22 AM EST ~PT, ~INR - ANTI COAG CLINIC Routine 03/01/2024 11:22 AM EST PROTHROMBIN TIME WHOLE BLD POC Routine 02/02/2024 11:28 AM EST ~PT, ~INR - ANTI COAG CLINIC Routine 02/02/2024 11:28 AM EST LIPID PANEL, STANDARD Routine 05/06/2023 11:48 AM EST Hyperlipemia, mixed HEPATITIS C AB W/REFL TO HCV RNA, QN, PCR Routine 07/10/2022 11:31 AM EDT S/P aortic valve replacement Pre-op evaluation from Last 3 Months or Most Recently Relevant to Health Maintenance Results * (ABNORMAL) PROTHROMBIN TIME WHOLE BLD POC (04/17/2024 11:43 AM EST) Only the most recent of6 resultswithin the time period is included. Protime 21.4(H) 11.1 - 13.5 sec [facility] 04/17/2024 11:4 3 AM EST 04/17/2024 11:45 AM EST Generic External Data Provider LAB BLOOD ORDERAB LES Final Result Performing Organization Address [facility] Co de Phone Number [facility] [address] [place] [phone] * (ABNORMAL) ~PT, ~INR - ANTI COAG CLINIC (04/17/2024 11:43 AM EST) Only the most recent of6 resultswithin the time period is included. Prothrombin Time INR 1.8(H) 0.9 - 1.1 [facility] Comment:METER #: [id number] TERNATIONAL NORMALIZED RATIO (INR) REFERENCE RANGES Reference RangeFor patients not on anticoagulant therapy: 0.9 - 1.1INR ranges for oral anticoagulanttherapy:For prevention and treatment of venous thrombosis and pulmonary embolism: 2.0 - 3.0For acute myocardial infarction with aspirin therapy: 2.0 - 3.0For acute myocardial infarction without aspirin therapy: 3.0 - 4.0For patients with mechanical prosthetic heart valves: 2.5 - 3.5 04/17/2024 11:4 3 AM EST 04/17/2024 11:45 AM EST Generic External Data Provider LAB BLOOD ORDERAB LES Final Result Performing Organization Address [facility]/ZIP Co de Phone Number [facility] [address] [place] [phone] * Lipid Panel, Standard (05/06/2023 11:48 AM EST) Triglycerides 61 <150 mg/dL [facility] Comment:Desirable Triglyceri de: less than 150 mg/dLBorderline High Triglyceride 150-199 mg/dLHigh Triglyceride: 200-499 mg/dLVery High Triglyceride: greater than or equal to 5OO mg/dL Cholesterol 166 <200 mg/dL [facility] Comment:Desirable Cholestero l: less than 200 mg/dLBorderline High Cholesterol: 200-239 mg/dLHigh Cholesterol: greater than 239 mg/dL LDL Cholesterol Calculated 94 <100 mg/dL [facility] Comment:Desirable LDL: less than 100 mg/dLNear Optimal/Above Optimal LDL: 110- 129 mg/dLBorderline High LDL: 130-159 mg/dLHigh LDL: 160-189 mg/dLVery High LDL: greater than or equal to 190 mg/dL HDL Cholesterol 60 >40 mg/dL [facility] Comment:Desirable HDL: great er than 40 mg/dL Note: This HDL assay may give artificially low results in patients with liver disease. Blood Venous blood specimen / Unknown 05/06/2023 11:48 AM EST 05/06/2023 2:09 PM EST Bc Rascon MD LAB BLOOD ORDERABL ES Final Result Performing Organization Address [facility]/State/ZIP Co de Phone Number [facility] [address] [place] [phone] * Hepatitis C Antibody with Reflex to HCV, RNA, Quantitative, Real-Time PCR (07/10/2022 11:31 AM EDT) Hepatitis C Antibody NON-REACT DEZ NON-REACT DEZ [facility] [place] [employer] Index 0.09 <1.00 [facility] [place] [employer] Comment: HCV antibody was non-reactive. There is no laboratory evidence of HCV infection. In most cases, no further action is required. However, if recent HCV exposure is suspected, a test for HCV RNA (test code 02590) is suggested. For additional information please refer to http://education.[employer].Shweeb/faq/JES62e2 (This link is being provided for informational/ educational purposes only.) Blood Venous blood specimen / Unknown 07/10/2022 11:31 AM EDT 07/10/2022 11:32 AM EDT Narrative [facility] - 07/11/2022 5:06 AM EDT FASTING:NO FASTING: NO Bc Rascon MD LAB BLOOD ORDERABL ES Final Result [facility] [address] [facility], [place] [address] [facility] [address] [place] [phone] from Last 3 Months or Most Recently Relevant to Health Maintenance Insurance MEDICARE Member Subscriber Plan / Payer (Ef fective 2022-Present) Name:Chris Zaragoza Member ID:[id number] Relation to Subscriber:Self Name:Chris Zaragoza Subscriber ID:[id number] Payer ID:[id number] Group ID:Not on file Type:Medicare Address: [facility] [address] [address] [facility] Care Teams Senior Gamemaster Relationship Specialty Start Date End Date Bc Hunter MD [address] [place] [phone] PCP - General Internal Medicine 01/03/19
--- OUTSIDE RECORDS SUMMARY | 2024-04-17 16:15 | XMS_ITS | Encounter Summary ---
Author Organization [employer] Address [address] [place] [address] Care Team Providers Care Rigger Supervisor Name Role Phone Bc Hunter MD Primary Care Prov ider Reason for Visit * Reason Comments Med Change Request Encounter Details Date Type Department Care Team ([facility] Contact Info) Description 07/19/2023 Refill [facility] [address] [place] [address] Oralia Mazariegos FNP [address] [place] [address] Social History Tobacco Use Types Packs/Day Years [...] documented as of this encounter Care Teams Rigger Supervisor Relationship Specialty Start Date End Date Bc Hunter MD [address] [place] [phone] PCP - General Internal Medicine 01/03/19 documented as of this encounter
--- OUTSIDE RECORDS SUMMARY | 2024-04-17 16:15 | XMS_ITS | Encounter Summary ---
Author Organization [employer] Address [address] [facility] [address] [place] [address] Care Team Providers Care Traveling Inventory Associate Name Role Phone Bc Hunter MD Primary Care Prov ider Reason for Visit * Reason Comments Med Refill Encounter Details Date Type Department Care Team ([facility] Contact Info) Description 03/19/2024 Refill [facility] [address] [place] [address] Oralia Mazariegos FNP [address] [place] [address] S/P aortic valve replacement Social History Tobacco [...] documented as of this encounter Care Teams Traveling Inventory Associate Relationship Specialty Start Date End Date Bc Hunter MD [address] [place] [phone] PCP - General Internal Medicine 01/03/19 documented as of this encounter
--- OUTSIDE RECORDS SUMMARY | 2024-04-17 16:15 | XMS_ITS | Encounter Summary ---
Author Organization [employer] Address [address] [place] [address] Care Team Providers Care Artist Blacksmith Name Role Phone Bc Hunter MD Primary Care Prov ider Encounter Details Date Type Department Care Team (Late st Contact Info) Description 03/29/2024 Orders Only GENERIC EXTERNAL DATA DEPARTMENT [...] Comments PROTHROMBIN TIME WHOLE BLD POC Routine 03/29/2024 1:40 PM EST ~PT, ~INR - ANTI COAG CLINIC Routine 03/29/2024 1:40 PM EST documented in this encounter Results * (ABNORMAL) PROTHROMBIN TIME WHOLE BLD POC (03/29/2024 1:40 PM EST) Protime 19.4(H) 11.1 - 13.5 sec [facility] 03/29/2024 1:40 PM EST 03/29/2024 1:42 PM EST us Generic External Data Provider LAB BLOOD ORDERAB LES Final Result Performing Organization Address City/State/[facility] Co de Phone Number [facility] [address] [place] [phone] * (ABNORMAL) ~PT, ~INR - ANTI COAG CLINIC (03/29/2024 1:40 PM EST) Prothrombin Time INR 1.6(H) 0.9 - 1.1 [facility] Comment:METER #: [id number] TERNATIONAL NORMALIZED RATIO (INR) REFERENCE RANGES Reference RangeFor patients not on anticoagulant therapy: 0.9 - 1.1INR ranges for oral anticoagulanttherapy:For prevention and treatment of venous thrombosis and pulmonary embolism: 2.0 - 3.0For acute myocardial infarction with aspirin therapy: 2.0 - 3.0For acute myocardial infarction without aspirin therapy: 3.0 - 4.0For patients with mechanical prosthetic heart valves: 2.5 - 3.5 03/29/2024 1:40 PM EST 03/29/2024 1:42 PM EST us Generic External Data Provider LAB BLOOD ORDERAB LES Final Result [facility] [address] [place] [phone] documented in this encounter Visit Diagnoses Not on filedocumented in this encounter Additional Health Concerns Assessment Noted Time PHQ-9 Depression Total Score: 0 09/30/19 24 11:02 AM EDT documented as of this encounter Care Teams Artist Blacksmith Relationship Specialty Start Date End Date Bc Hunter MD [address] [place] [phone] PCP - General Internal Medicine 01/03/19 documented as of this encounter
--- OUTSIDE RECORDS SUMMARY | 2024-04-17 16:15 | XMS_ITS | Encounter Summary ---
Author Organization [employer] Address [address] [facility] [address] [place] [address] Care Team Providers Care Steam Tunnel Feeder Name Role Phone Bc Hunter MD Primary Care Prov ider Encounter Details Date Type Department Care Team (Late st Contact Info) Description 07/16/2022 Telephone [facility] [address] [place], [place] [phone] Bc Hunter MD [address] [place] [address] Social History Tobacco Use Types Packs/Day Years [...] suspected to have Coronavirus/COVID-19? No / Unsure 07/10/2022 10:39 AM EDT documented as of this encounter Miscellaneous Notes * Telephone Encounter - Migdalia Barrera RN - 07/16/2022 12:54 PM EDT Critical Result Line call received now. INR 6.0 Patient reports poor appetite not eating much. Normal dose Warfarin 2mg one day and 4 mg all others. Plan: Hold today and recheck tomorrow.. RN reports patient concerned with scrotal swelling. Right side. Please contact Lori @ [phone] if additional labs are requested by PCP and will have them done attime of visit tomorrow. Please update PCP with above and follow with Lori as indicated. Triage Nurse will call patient at this time in regards to scrotal swelling. Please see above message as FYI * Telephone Encounter - Cata Clark LPN - 07/16/2022 11:49 AM EDT Critical Result Line call received now. INR 6.0 Patient reports poor appetite not eating much. Normal dose Warfarin 2mg one day and 4 mg all others. Plan: Hold today and recheck tomorrow.. RN reports patient concerned with scrotal swelling. Right side. Please contact Lori @ [phone] if additional labs are requested by PCP and will have them done attime of visit tomorrow. Please update PCP with above and follow with Lori as indicated. Triage Nurse will call patient at this time in regards to scrotal swelling. documented in this encounter Plan of Treatment Not on file documented as of this encounter Visit Diagnoses Not on filedocumented in this encounter Additional Health Concerns Assessment Noted Time PHQ-9 Depression Total Score: 0 07/11/19 23 11:26 AM EDT documented as of this encounter Care Teams Steam Tunnel Feeder Relationship Specialty Start Date End Date Bc Hunter MD [address] [place] [phone] PCP - General Internal Medicine 01/03/19 documented as of this encounter
--- OUTSIDE RECORDS SUMMARY | 2024-04-17 16:15 | XMS_ITS | Encounter Summary ---
Author Organization [employer] Address [address] [facility] 7 [place] [address] Care Team Providers Care Cellophane Worker Name Role Phone Bc Hunter MD Primary Care Prov ider Reason for Visit * Reason Onset Date Comments Referral 12/06/2023 Encounter Details Date Type Department Care Team ([facility] st Contact Info) Description 12/06/2023 Telephone [facility] [address] [place] [address] Bc Hunter MD [address] [place], [place] [phone] Referral Social History Tobacco Use Types Packs/Day Years [...] encounter Miscellaneous Notes * Telephone Encounter - Gelacio Beaver - 12/06/2023 9:45 AM EDT [facility] calling to report the provider for podiatry has and would need to be referred to another location would like to be seen by Sarkis in the [place] location ifpossible documented in this encounter Plan of Treatment Not on file documented as of this encounter Visit Diagnoses Not on filedocumented in this encounter Additional Health Concerns Assessment Noted Time PHQ-9 Depression Total Score: 0 09/30/19 24 11:02 AM EDT documented as of this encounter Care Teams Cellophane Worker Relationship Specialty Start Date End Date Bc Hunter MD [address] [place] [address] PCP - General Internal Medicine 01/03/19 documented as of this encounter
--- OUTSIDE RECORDS SUMMARY | 2024-04-17 16:15 | XMS_ITS | Encounter Summary ---
Author Organization [employer] Address [address] [facility] [address] 7t [place] [address] Care Team Providers Care Medicaid Specialist Name Role Phone Bc Hunter MD Primary Care Prov ider Encounter Details Date Type Department Care Team (Late st Contact Info) Description 04/10/2024 Orders Only GENERIC EXTERNAL DATA DEPARTMENT [...] Comments PROTHROMBIN TIME WHOLE BLD POC Routine 04/10/2024 11:12 AM EST ~PT, ~INR - ANTI COAG CLINIC Routine 04/10/2024 11:12 AM EST documented in this encounter Results * (ABNORMAL) PROTHROMBIN TIME WHOLE BLD POC (04/10/2024 11:12 AM EST) Protime 28.7(H) 11.1 - 13.5 sec [facility] 04/10/2024 11:1 2 AM EST 04/10/2024 11:14 AM EST us Generic External Data Provider LAB BLOOD ORDERAB LES Final Result Performing Organization Address City/State/[facility] Co de Phone Number [facility] [address] [place] [phone] * (ABNORMAL) ~PT, ~INR - ANTI COAG CLINIC (04/10/2024 11:12 AM EST) Prothrombin Time INR 2.4(H) 0.9 - 1.1 [facility] Comment:METER #: [id number] TERNATIONAL NORMALIZED RATIO (INR) REFERENCE RANGES Reference RangeFor patients not on anticoagulant therapy: 0.9 - 1.1INR ranges for oral anticoagulanttherapy:For prevention and treatment of venous thrombosis and pulmonary embolism: 2.0 - 3.0For acute myocardial infarction with aspirin therapy: 2.0 - 3.0For acute myocardial infarction without aspirin therapy: 3.0 - 4.0For patients with mechanical prosthetic heart valves: 2.5 - 3.5 04/10/2024 11:1 2 AM EST 04/10/2024 11:14 AM EST us Generic External Data Provider LAB BLOOD ORDERAB LES Final Result [facility] [address] [place] [address] [phone] documented in this encounter Visit Diagnoses Not on filedocumented in this encounter Additional Health Concerns Assessment Noted Time PHQ-9 Depression Total Score: 0 09/30/19 24 11:02 AM EDT documented as of this encounter Care Teams Medicaid Specialist Relationship Specialty Start Date End Date Bc Hunter MD [address] [place] [id number] PCP - General Internal Medicine 01/03/19 documented as of this encounter
--- OUTSIDE RECORDS SUMMARY | 2024-04-17 16:15 | XMS_ITS | Encounter Summary ---
Author Organization [facility] Address [address] [place] [address] Phone Care Team Providers Care Employment Specialist/Program Manager Name Role Phone Bc Yates Primary Care Provider [phone] Reason for Visit * Reason Comments Med Refill Encounter Details Date Type Department Care Team (Late st Contact Info) Description 01/13/2022 Refill [facility] [address] [place] [address] Trever Lopez MD [address] [facility] [place] [address] Social History Tobacco Use Types Packs/Day Years Used Date Smoking Tobacco: Smoker, Current Status Unknown Sex and Gender Information Value Date Recorded Sex Assigned at Not on file Legal Sex Male 4:36 PM EST Gender Identity Not on file Sexual Orientation Not on file documented as of this encounter Plan of Treatment Upcoming Encounters Date Type Department Care Team (Late st Contact Info) Description 09/19/2024 1:45 PM EDT Office Visit [facility] [address] [place] [address] Trever Lopez MD [address] [facility] [place] [address] documented as of this encounter Visit Diagnoses Not on filedocumented in this encounter Care Teams Employment Specialist/Program Manager Relationship Specialty Start Date End Date Bc Yates PCP - General Internal Medicine 10/05/22 documented as of this encounter
--- OUTSIDE RECORDS SUMMARY | 2024-04-17 16:15 | XMS_ITS | Encounter Summary ---
Author Organization [employer] Address [address] [facility] [address] 7[address] [place] [address] Care Team Providers Care Traffic Administrator Name Role Phone Bc Hunter MD Primary Care Prov ider Encounter Details Date Type Department Care Team (Late st Contact Info) Description 04/17/2024 Orders Only GENERIC EXTERNAL DATA [...] COAG CLINIC Routine 04/17/2024 11:43 AM EST documented in this encounter Results * (ABNORMAL) PROTHROMBIN TIME WHOLE BLD POC (04/17/2024 11:43 AM EST) Protime 21.4(H) 11.1 - 13.5 sec [facility] 04/17/2024 11:4 3 AM EST 04/17/2024 11:45 AM EST us Generic External Data Provider LAB BLOOD ORDERAB LES Final Result Performing Organization Address City/State/[facility] Co de Phone Number [facility] [address] [place] [phone] * (ABNORMAL) ~PT, ~INR - ANTI COAG CLINIC (04/17/2024 11:43 AM EST) Prothrombin Time INR 1.8(H) 0.9 - 1.1 [facility] Comment:METER #: [id number] TERNATIONAL NORMALIZED RATIO (INR) REFERENCE RANGES Reference [...] 3 AM EST 04/17/2024 11:45 AM EST us Generic External Data Provider LAB BLOOD ORDERAB LES Final Result [facility] [address] [place] [address] [phone] documented in this encounter Visit Diagnoses Not on filedocumented in this encounter Additional Health Concerns Assessment Noted Time PHQ-9 Depression Total Score: 0 09/30/19 24 11:02 AM EDT documented as of this encounter Care Teams Traffic Administrator Relationship Specialty Start Date End Date Bc Hunter MD [address] [place] [address] PCP - General Internal Medicine 01/03/19 documented as of this encounter
--- OUTSIDE RECORDS SUMMARY | 2024-04-17 16:15 | XMS_ITS | Encounter Summary ---
Author Organization [employer] [facility] Address [address] [address] 7t [place] [address] Care Team Providers Care Telephone Installer Name Role Phone Bc Hunter MD Primary Care Prov ider Encounter Details Date Type Department Care Team (Late st Contact Info) Description 02/24/2022 Telephone [facility] [address] [place], [place] [phone] Bc Hunter MD [address] [place], [place] [phone] Social History Tobacco Use Types Packs/Day Years [...] on filedocumented in this encounter Care Teams Telephone Installer Relationship Specialty Start Date End Date Bc Hunter MD [address] [place], [place] [phone] PCP - General Internal Medicine 01/03/19 documented as of this encounter
--- OUTSIDE RECORDS SUMMARY | 2024-04-17 16:15 | XMS_ITS | Encounter Summary ---
Author Organization [facility] Address [address] [place] [address] Phone Care Team Providers Care Clinical Services Assistant Name Role Phone Bc Yatse Primary Care Provider [phone] Encounter Details Date Type Department Care Team (Late st Contact Info) Description 05/26/2021 Documentation Only [facility] [address] [place] [address] Trever Lopez MD [address] [place] [address] [place] [address] Social History Tobacco Use Types [...] Visit [facility] [address] [place] [address] Trever Lopez MD [address] [place] [address] [place] [address] documented as of this encounter Visit Diagnoses Not on filedocumented in this encounter Care Teams Clinical Services Assistant Relationship Specialty Start Date End Date Bc Yates PCP - General Internal Medicine 10/05/22 documented as of this encounter
== END 2024-04-17 12:00 | disposition home or self-care (01) ==
LOC: HO.ACS 11:22
PROVIDERS: PCP Internal Medicine; Visit Provider Internal Medicine
DX: Z79.01 Long term (current) use of anticoagulants (principal)

== ENCOUNTER → 2024-04-17 11:22 | Outpatient (BNVA) | payer MEDICARE, MEDICAID, SELFPAY | PROVIDERS: PCP Internal Medicine; Visit Provider Internal Medicine | DX: Z95.2 Presence of prosthetic heart valve (principal); Z79.01 Long term (current) use of anticoagulants; Z51.81 Encounter for therapeutic drug level monitoring | CPT/HCPCS: 85610; 99212 ==

== ENCOUNTER 2024-04-24 11:23 | Outpatient (AMB) | payer MEDICARE, MEDICAID, SELFPAY ==
[2024-04-24 11:41] LABS: Prothrombin Time Whole Bld POC 21.6 sec (11.1-13.5); ~PT, ~INR - Anti Coag Clinic 1.8 (0.9-1.1)
--- NOTE | 2024-04-24 11:41 | MHC.OFFVISCO ---
Intake Intake Visit Reasons: Anticoagulation Allergies No Known Allergies Allergy (Mild, Verified 04/24/24 11:24) NOT APPLICABLE Medication List - Last Reconciled 04/24/24 by Nivia Beaver RN albuterol sulfate 90 mcg/actuation (Ventolin HFA) 1 puff inhalation RQ4H PRN atorvastatin 40 mg PO BEDTIME benztropine 1 mg PO BID cholecalciferol (vitamin D3) (Vitamin D3) 25 mcg PO QAM dicyclomine 20 mg PO BID divalproex ER 1,000 mg (2 x 500 mg) PO BEDTIME ferrous sulfate 324 mg PO DAILY fluphenazine decanoate 25 mg IM Q28D fluphenazine decanoate 25 mg IM Q4W pnuycxnbyoi-khzljnrtw-yrktqkbf 100-62.5-25 mcg (Trelegy Ellipta) 1 inh inhalation RDAILY levothyroxine 25 mcg PO DAILY@0600 loratadine 10 mg PO DAILY magnesium oxide 400 mg PO BIDPC multivitamin with folic acid 400 mcg (Daily-Stanley (with folic acid)) 1 tab PO DAILY mupirocin 2% 1 appl See Protocol topical BID pantoprazole 40 mg PO BID phenazopyridine 200 mg PO TID PRN risperidone 1 mg PO BID tamsulosin 0.4 mg PO BEDTIME warfarin See Protocol 2 mg orally 4MG DAILY OR DIRECTED; 4MG DAILY OR DIRECTED Nursing Note Pt to [facility] with list of meds from [place] [facility] Meds verified. Pt answers all questions appropriately but when asked how he got here, he said he didn't want to discuss it. INR: 1.8 in therapeutic range 2-3 Medications and supplements reviewed No changes in health, diet, medications, or supplements, Denies any signs and symptoms of bleeding or bruising or clotting. Bleeding, bruising, clotting discussed Nutritional guidance given Dose: increased today's dose to 6mg (4mg) then 4mg daily except Wednesday, which will be 2mg. F/U INR: 1 week Patient verbalizes understanding of instructions but would not give read back. Dosing handout given to pt. Anti-Coag Initial Assessment Social Hx Patient Tobacco Use Status: Refuse Tobacco use screen alcohol intake: never Coding Level of Care Code Est Patient Level 1 Diagnoses Current use of anticoagulant therapy Z79.01 Results AMB INR Fingerstick AMB INR Fingerstick 1.8 Last Edit by Nivia Beaver RN on 04/24/24 11:39 interface delay Assessment & Plan Assessment & Plan (1) Current use of anticoagulant therapy: Code(s): Z79.01 - nursing home (current) use of anticoagulants Category: Medical
--- OUTSIDE RECORDS SUMMARY | 2024-04-24 12:39 | XMS_ITS | Encounter Summary ---
Author Organization [employer] Address [address] [facility] 7 [place] [address] Care Team Providers Care Dinkey Skinner Name Role Phone Bc Hunter MD Primary Care Prov ider Reason for Visit * Reason Onset Date Comments Anticoagulation 04/05/2024 Encounter Details Date Type Department Care Team ([facility] Contact Info) Description 04/05/2024 Telephone [facility] MED & PEDS [address] [place] [address] Bc Hunter MD [address] [place] [address] Anticoagulation Social History Tobacco Use Types Packs/Day [...] 04/05/24 at 11:19 AM Name of Caller/Facility:Kimberly [facility] anticoagulation Callback number: [phone] Reason for Call: INR of 1.3 today. Range 2-3. Pt did not miss any doses or any med changes. Pt lives in a correction. Pt instructed to take 6mg and tomorrow, resume 4mg Wednesday and Wednesday and 2mg onSunday and return on Wednesday04/10/24. Kimberly advised that [facility] closed for Holiday on Wednesday. To call in any critical results to Main line [phone] to be reported to diamond merchant. If provider wants Lovenox for bridge to please call correction to notify and will need to call correction, no RN in the home, would need VNA to administer. Message to be forwarded to Bc Rascon MD and [facility] team nurses for follow up. documented in this encounter Plan of Treatment Upcoming Encounters Date Type Department Care Team (Late st Contact Info) Description 04/26/2024 11:15 AM EST Office Visit [facility] MED & PEDS [address] [place] [address] Bc Hunter MD [address] [place] [address] documented as of this encounter Visit Diagnoses Not on filedocumented in this encounter Additional Health Concerns Assessment Noted Time PHQ-9 Depression Total Score: 0 09/30/19 24 11:02 AM EDT documented as of this encounter Care Teams Dinkey Skinner Relationship Specialty Start Date End Date Bc Hunter MD [address] [place] [address] PCP - General Internal Medicine 01/03/19 documented as of this encounter
--- OUTSIDE RECORDS SUMMARY | 2024-04-24 12:39 | XMS_ITS | Encounter Summary ---
Author Organization [employer] Address [address] [facility] [address] 7t [place] [address] Care Team Providers Care Process Safety Engineer Name Role Phone Bc Hunter MD Primary Care Prov ider Encounter Details Date Type Department Care Team (Latest Contact Info) Description 04/19/2024 Travel Social History Tobacco Use Types Packs/Day Years [...] Description 04/26/2024 11:15 AM EST Office Visit [facility] MED & PEDS [address] [place] [address] Bc Hunter MD [address] [place] [address] documented as of this encounter Visit Diagnoses Not on filedocumented in this encounter Additional Health Concerns Assessment Noted Time PHQ-9 Depression Total Score: 0 09/30/19 24 11:02 AM EDT documented as of this encounter Care Teams Process Safety Engineer Relationship Specialty Start Date End Date Bc Hunter MD [address] [place] [address] PCP - General Internal Medicine 01/03/19 documented as of this encounter
--- OUTSIDE RECORDS SUMMARY | 2024-04-24 12:39 | XMS_ITS | Encounter Summary ---
Author Organization [employer] Address [address] [facility] [address] 7t [place] [address] Care Team Providers Care Ranch Helper Name Role Phone Bc Hunter MD Primary Care Prov ider Encounter Details Date Type Department Care Team (Late st Contact Info) Description 04/24/2024 Orders Only GENERIC EXTERNAL DATA DEPARTMENT Provider, [...] Description 04/26/2024 11:15 AM EST Office Visit [facility] MED & PEDS [address] [place] [address] Bc Hunter MD [address] [place] [address] documented as of this encounter Procedures Procedure Name Priority Date/Time Associated Diagnosis Comments PROTHROMBIN TIME WHOLE BLD POC Routine 04/24/2024 11:31 AM EST ~PT, ~INR - ANTI COAG CLINIC Routine 04/24/2024 11:31 AM EST documented in this encounter Results * (ABNORMAL) PROTHROMBIN TIME WHOLE BLD POC (04/24/2024 11:31 AM EST) Protime 21.6(H) 11.1 - 13.5 sec [facility] 04/24/2024 11:3 1 AM EST 04/24/2024 11:41 AM EST us Generic External Data Provider LAB BLOOD ORDERAB LES Final Result [facility] [address] [place] [address] [phone] * (ABNORMAL) ~PT, ~INR - ANTI COAG CLINIC (04/24/2024 11:31 AM EST) Prothrombin Time INR 1.8(H) 0.9 - 1.1 [facility] Comment:METER #: [id number] TERNATIONAL NORMALIZED RATIO (INR) REFERENCE RANGES Reference RangeFor patients not on anticoagulant therapy: 0.9 - 1.1INR ranges for oral anticoagulanttherapy:For prevention and treatment of venous thrombosis and pulmonary embolism: 2.0 - 3.0For acute myocardial infarction with aspirin therapy: 2.0 - 3.0For acute myocardial infarction without aspirin therapy: 3.0 - 4.0For patients with mechanical prosthetic heart valves: 2.5 - 3.5 04/24/2024 11:3 1 AM EST 04/24/2024 11:41 AM EST us Generic External Data Provider LAB BLOOD ORDERAB LES Final Result [facility] [address] [place] [phone] documented in this encounter Visit Diagnoses Not on filedocumented in this encounter Additional Health Concerns Assessment Noted Time PHQ-9 Depression Total Score: 0 09/30/19 24 11:02 AM EDT documented as of this encounter Care Teams Ranch Helper Relationship Specialty Start Date End Date Bc Hunter MD [address] [place] [address] PCP - General Internal Medicine 01/03/19 documented as of this encounter
--- OUTSIDE RECORDS SUMMARY | 2024-04-24 12:39 | XMS_ITS | Clinical Summary ---
Author Organization [facility] Address [address] [place] [address] [place] [address] Phone Care Team Providers Care Survey Statistician Name Role Phone YatesBc Primary Care Provider Allergies No known active allergies Medications D3-50 1.25 MG (10770 UT) capsule TAKE 1 CAPSULE BY MOUTH [...] Visit [facility] [address] [place] [address] Trever Lopez MD [address] [facility] [place] [phone] Health Maintenance Due Date Last Done Comments Colorectal Cancer Screening: Annual FOBT 2001 Colorectal Cancer Screening: Colonoscopy 2001 Colorectal Cancer Screening: Sigmoidoscopy 2001 Pneumococcal Vaccine: 65+ Ye ars (2 of 2 - PCV) 11/23/2015 11/22/2014 Influenza Vaccine (#1) 2023 Hepatitis B Vaccine Aged Out No longe r eligible based on patient's age to complete this topic Insurance MEDICARE MEDICAID [place] Care Teams Survey Statistician Relationship Specialty Start Date End Date Bc Yates: [phone] PCP - General Internal Medicine 10/05/22
--- OUTSIDE RECORDS SUMMARY | 2024-04-24 12:39 | XMS_ITS | Encounter Summary ---
Author Organization [employer] Address 75 [facility] 7 [place] [address] Care Team Providers Care Clamp Carrier Operator Name Role Phone Bc Hunter MD Primary Care Prov ider Reason for Visit * Reason Onset Date Comments Nurse Triage 05/26/2023 Encounter Details Date Type Department Care Team (Late st Contact Info) Description 05/26/2023 Telephone [facility] [address] [place] [address] Bc Hunter MD [address] [place], [place] [phone] Nurse Triage Social History Tobacco Use Types [...] AM EST Triage call Pt is in [facility], Krystin Sepulveda taking call and consent is signed by Pt for staff to speak . Pt has had some changes. Pt decided to stop all psyche medications and MD Ward Myers,discontinued them. (Stop date unknown) Pt has since that time decreased eating, appetite is poor. Pt weight yesterday at board win[facility] apt is 173lbs. Pt was said to be around 202lbs regularly. Pt clothes are fitting very loosely now. Pt also wanted to stop coumadin but, board winder instructed that wouldn't be good to do [...] acuity questions The caller accepted this outcome [phone] documented in this encounter Plan of Treatment Upcoming Encounters Date Type Department Care Team (Late st Contact Info) Description 04/26/2024 11:15 AM EST Office Visit [facility] MED & PEDS [address] [place] [address] Bc Hunter MD [address] [place] [address] documented as of this encounter Visit Diagnoses Not on filedocumented in this encounter Additional Health Concerns Assessment Noted Time PHQ-9 Depression Total Score: 0 07/11/19 23 11:26 AM EDT documented as of this encounter Care Teams Clamp Carrier Operator Relationship Specialty Start Date End Date Bc Hunter MD [address] [place] [address] PCP - General Internal Medicine 01/03/19 documented as of this encounter
--- OUTSIDE RECORDS SUMMARY | 2024-04-24 12:39 | XMS_ITS | Encounter Summary ---
Author Organization [facility] Address [address] [place] [address] 7 [place] [address] Care Team Providers Care Rectifier Operator Name Role Phone Bc Hunter MD Primary Care Prov ider Reason for Visit * Reason Comments Med Refill Encounter Details Date Type Department Care Team (Late Contact Info) Description 10/25/2022 Refill [facility] MED & PEDS [address] [place], [place] [phone] Bc Hunter MD [address] [place], [place] [phone] Social History Tobacco Use Types Packs/Day Years [...] Description 04/26/2024 11:15 AM EST Office Visit [facility] MED & PEDS [address] [place], [place] [phone] Bc Hunter MD [address] [place], [place] [phone] documented as of this encounter Visit Diagnoses Not on filedocumented in this encounter Additional Health Concerns Assessment Noted Time PHQ-9 Depression Total Score: 0 07/11/19 23 11:26 AM EDT documented as of this encounter Care Teams Rectifier Operator Relationship Specialty Start Date End Date Bc Hunter MD [address] [place] [address] PCP - General Internal Medicine 01/03/19 documented as of this encounter
--- OUTSIDE RECORDS SUMMARY | 2024-04-24 12:39 | XMS_ITS | Encounter Summary ---
Author Organization [employer] Address [address] [facility] [address] 7t [place] [address] Care Team Providers Care Sales Engineer Engineered Products Name Role Phone Bc Hunter MD Primary [...] Description 04/26/2024 11:15 AM EST Office Visit [facility] MED & PEDS [address] [place] [address] Bc Hunter MD [address] [place] [address] documented as of this encounter Procedures Procedure Name Priority Date/Time Associated Diagnosis Comments PROTHROMBIN TIME WHOLE BLD POC Routine 04/05/2024 10:56 AM EST ~PT, ~INR - ANTI COAG CLINIC Routine 04/05/2024 10:56 AM EST documented in this encounter Results * (ABNORMAL) PROTHROMBIN TIME WHOLE BLD POC (04/05/2024 10:56 AM EST) Protime 15.6(H) 11.1 - 13.5 sec [facility] 04/05/2024 10:5 6 AM EST 04/05/2024 11:07 AM EST us Generic External Data Provider LAB BLOOD ORDERAB LES Final Result [facility] [address] [place] [phone] * (ABNORMAL) ~PT, ~INR - ANTI COAG CLINIC (04/05/2024 10:56 AM EST) Prothrombin Time INR 1.3(H) 0.9 - 1.1 [facility] Comment:METER #: [id number] TERNATIONAL NORMALIZED RATIO (INR) REFERENCE RANGES Reference [...] Provider LAB BLOOD ORDERAB LES Final Result [facility] [address] [place] [address] [phone] documented in this encounter Visit Diagnoses Not on filedocumented in this encounter Additional Health Concerns Assessment Noted Time PHQ-9 Depression Total Score: 0 09/30/19 24 11:02 AM EDT documented as of this encounter Care Teams Sales Engineer [employer]ered Products Relationship Specialty Start Date End Date Bc Hunter MD [address] [place] [id number] PCP - General Internal Medicine 01/03/19 documented as of this encounter
--- OUTSIDE RECORDS SUMMARY | 2024-04-24 12:39 | XMS_ITS | Encounter Summary ---
Author Organization [employer] [facility] Address [address] [place] [address] 7 [place] [address] Care Team Providers Care Air Saw Operator Name Role Phone Bc Hunter MD Primary Care Prov ider Encounter Details Date Type Department Care Team (Late Contact Info) Description 02/24/2022 Telephone [facility] MEDICINE [address] [place], [place] [phone] Bc Hunter MD [address] [place], [place] [phone] Social History Tobacco Use Types Packs/Day Years [...] Encounters Date Type Department Care Team (Late Contact Info) Description 04/26/2024 11:15 AM EST Office Visit [facility] MED & PEDS [address] [place] [address] Bc Hunter MD [address] [place], [place] [phone] documented as of this encounter Visit Diagnoses Not on filedocumented in this encounter Care Teams Air Saw Operator Relationship Specialty Start Date End Date Bc Hunter MD [address] [place] [address] PCP - General Internal Medicine 01/03/19 documented as of this encounter
--- OUTSIDE RECORDS SUMMARY | 2024-04-24 12:39 | XMS_ITS | Encounter Summary ---
Author Organization [employer] Address [address] [facility] 7 [place] [address] Care Team Providers Care Liner Helper Name Role Phone Bc Hunter MD Primary Care Prov ider Reason for Visit * Reason Onset Date Comments Med Refill 05/12/2022 Encounter Details Date Type Department Care Team (Late st Contact Info) Description 05/12/2022 Telephone [facility] MEDICINE [address] [place] [address] Bc Hunter MD [address] [place], [place] [phone] Med Refill Social History Tobacco Use Types [...] Description 04/26/2024 11:15 AM EST Office Visit [facility] MED & PEDS [address] [place] [address] Bc Hunter MD [address] [place] [address] documented as of this encounter Visit Diagnoses Not on filedocumented in this encounter Care Teams Liner Helper Relationship Specialty Start Date End Date Bc Hunter MD [address] [place] [address] PCP - General Internal Medicine 01/03/19 documented as of this encounter
--- OUTSIDE RECORDS SUMMARY | 2024-04-24 12:39 | XMS_ITS | Encounter Summary ---
Author Organization [facility] Address [address] [facility] 7 [place] [address] Care Team Providers Care Life Science Research Assistant Name Role Phone Bc Hunter MD Primary Care Prov ider Encounter Details Date Type Department Care Team (Late st Contact Info) Description 05/18/2022 Orders Only [facility] MED & PEDS [address] [place], [place] [phone] Bc Hunter MD [address] [place], [place] [phone] S/P aortic valve replacement Social History Tobacco [...] Description 04/26/2024 11:15 AM EST Office Visit [facility] MED & PEDS [address] [place], [place] [phone] Bc Hunter MD [address] [place], [place] [phone] documented as of this encounter Visit Diagnoses Diagnosis S/P aortic valve replacement Heart valve replaced by other means documented in this encounter Care Teams Life Science Research Assistant Relationship Specialty Start Date End Date Bc Hunter MD [address] [place] [address] PCP - General Internal Medicine 01/03/19 documented as of this encounter
--- OUTSIDE RECORDS SUMMARY | 2024-04-24 12:39 | XMS_ITS | Encounter Summary ---
Author Organization [facility] Address [address] [place] [address] Phone Care Team Providers Care Network Control Technician Name Role Phone Bc Yates Primary Care Provider [phone] Encounter Details Date Type Department Care Team (Late st Contact Info) Description 05/26/2021 Documentation Only [facility] [address] [place] [address] Trever Lopez MD [address] [place] [address] [place] [address] Social History Tobacco Use Types [...] Visit [facility] [address] [place] [address] Trever Lopez MD [address] [place] [address] [place] [address] documented as of this encounter Visit Diagnoses Not on filedocumented in this encounter Care Teams Network Control Technician Relationship Specialty Start Date End Date Bc Yates PCP - General Internal Medicine 10/05/22 documented as of this encounter
--- OUTSIDE RECORDS SUMMARY | 2024-04-24 12:39 | XMS_ITS | Encounter Summary ---
Author Organization [employer] Address [address] [facility] [address] 7t [place] [address] Care Team Providers Care Chrome Tanning Drum Operator Name Role Phone Bc Hunter MD Primary Care Prov ider Encounter Details Date Type Department Care Team (Late st Contact Info) Description 09/20/2023 Orders Only [facility] CHC MED & PEDS [address] [place], [place] [phone] Bc Hunter MD [address] [place] [address] Social History Tobacco Use Types Packs/Day Years [...] 11:15 AM EST Office Visit [facility] MED & PEDS [address] [place] [address] Bc Hunter MD [address] [place] [address] documented as of this encounter Visit Diagnoses Not on filedocumented in this encounter Additional Health Concerns Assessment Noted Time PHQ-9 Depression Total Score: 0 07/11/19 23 11:26 AM EDT documented as of this encounter Care Teams Chrome Tanning Drum Operator Relationship Specialty Start Date End Date Bc Hunter MD [address] [place] [address] PCP - General Internal Medicine 01/03/19 documented as of this encounter
--- OUTSIDE RECORDS SUMMARY | 2024-04-24 12:39 | XMS_ITS | Encounter Summary ---
Author Organization [employer] Address [address] [place] [address] 7 [place] [address] Care Team Providers Care Artistic Associate Name Role Phone Bc Hunter MD Primary Care Prov ider Reason for Visit * Reason Onset Date Comments Med Refill 09/21/2022 Encounter Details Date Type Department Care Team (Late st Contact Info) Description 09/21/2022 Telephone [facility] CH[facility] MED & PEDS [address] [place] [address] Bc Hunter MD [address] [place] [address] Med Refill Social History Tobacco Use Types [...] 09/23/2022 8:28 AM EDT Pt managed by [facility] coumadin clinic. Last INR of 3.1 noted 09/17/22. Will forward request for Rx to covering provider to review. * Telephone Encounter - Ping Nettles - 09/21/2022 10:39 AM EDT Tc from pt requesting med refill on Warfarin 1 mg tablet [id number] [place], [place] - [address] [facility] Please sent to documented in this encounter Plan of Treatment Upcoming Encounters Date Type Department Care Team (Late st Contact Info) Description 04/26/2024 11:15 AM EST Office Visit [facility] MED & PEDS [address] [place] [address] Bc Hunter MD [address] [place] [address] documented as of this encounter Visit Diagnoses Diagnosis History of Coumadin therapy- Primary S/P aortic valve replacement Heart valve replaced by other means documented in this encounter Additional Health Concerns Assessment Noted Time PHQ-9 Depression Total Score: 0 07/11/19 23 11:26 AM EDT documented as of this encounter Care Teams Artistic Associate Relationship Specialty Start Date End Date Bc Hunter MD [address] [place] [address] PCP - General Internal Medicine 01/03/19 documented as of this encounter
--- OUTSIDE RECORDS SUMMARY | 2024-04-24 12:39 | XMS_ITS | Encounter Summary ---
Author Organization [employer] Address 75 [facility] 7 [place] [address] Care Team Providers Care Interior Design Project Manager Name Role Phone Bc Hunter MD Primary Care Prov ider Reason for Visit * Reason Onset Date Comments Referral 12/06/2023 Encounter Details Date Type Department Care Team ([facility] st Contact Info) Description 12/06/2023 Telephone [facility] MEDICINE [address] [place] [address] Bc Hunter MD [address] [place], [place] [phone] Referral Social History Tobacco Use Types Packs/Day [...] 12/06/2023 9:45 AM EDT Tc from patients [facility] calling to report the provider for podiatry has and would need to be referred to another location would like to be seen by Sarkis in the [place] location ifpossible documented in this encounter Plan of Treatment Upcoming Encounters Date Type Department Care Team (Late st Contact Info) Description 04/26/2024 11:15 AM EST Office Visit [facility] CHC MED & PEDS [address] [place] [address] Bc Hunter MD [address] [place] [address] documented as of this encounter Visit Diagnoses Not on filedocumented in this encounter Additional Health Concerns Assessment Noted Time PHQ-9 Depression Total Score: 0 09/30/19 24 11:02 AM EDT documented as of this encounter Care Teams Interior Design Project Manager Relationship Specialty Start Date End Date Bc Hunter MD [address] [place] [address] PCP - General Internal Medicine 01/03/19 documented as of this encounter
--- OUTSIDE RECORDS SUMMARY | 2024-04-24 12:39 | XMS_ITS | Encounter Summary ---
Author Organization [facility] Address 75 [facility] 7 [place] [address] Care Team Providers Care Nicu Rn Name Role Phone Bc Hunter MD Primary Care Prov ider Reason for Visit * Reason Onset Date Comments Med Refill 05/15/2022 Encounter Details Date Type Department Care Team ([facility] st Contact Info) Description 05/15/2022 Telephone [facility] CHC MED & PEDS [address] [place] [address] Bc Hunter MD [address] [place] [address] Med Refill Social History Tobacco Use Types [...] a max daily dose. Call placed to [facility] Coumadin clinic. Per Della, pt is currently [...] review. Please advise. * Telephone Encounter - Ping Nettles - 05/15/2022 11:54 AM EST Tc from Amy with [facility] requesting some kinds of specific directions for warfarin (Coumadin) 2 MG tablet If any question please contact amy at [phone] documented in this encounter Plan of Treatment Upcoming Encounters Date Type Department Care Team (Late st Contact Info) Description 04/26/2024 11:15 AM EST Office Visit [facility] MED & PEDS [address] [place] [address] Bc Hunter MD [address] [place] [address] documented as of this encounter Visit Diagnoses Not on filedocumented in this encounter Care Teams Nicu Rn Relationship Specialty Start Date End Date Bc Hunter MD [address] [place] [address] PCP - General Internal Medicine 01/03/19 documented as of this encounter
--- OUTSIDE RECORDS SUMMARY | 2024-04-24 12:39 | XMS_ITS | Encounter Summary ---
Author Organization [employer] Address [address] [facility] [address] 7t [place] [address] Care Team Providers Care Sheet Metal Production Worker Name Role Phone Bc Hunter MD [...] Description 04/26/2024 11:15 AM EST Office Visit [facility] MED & PEDS [address] [place] [address] Bc Hunter MD [address] [place] [address] documented as of this encounter Procedures Procedure Name Priority Date/Time Associated Diagnosis Comments PROTHROMBIN TIME WHOLE BLD POC Routine 03/29/2024 1:40 PM EST ~PT, ~INR - ANTI COAG CLINIC Routine 03/29/2024 1:40 PM EST documented in this encounter Results * (ABNORMAL) PROTHROMBIN TIME WHOLE BLD POC (03/29/2024 1:40 PM EST) Protime 19.4(H) 11.1 - 13.5 sec [facility] 03/29/2024 1:40 PM EST 03/29/2024 1:42 PM EST us Generic External Data Provider LAB BLOOD ORDERAB LES Final Result [facility] [address] [place] [address] [phone] * (ABNORMAL) ~PT, ~INR - ANTI COAG CLINIC (03/29/2024 1:40 PM EST) Prothrombin Time INR 1.6(H) 0.9 - 1.1 [facility] Comment:METER #: [id number] TERNATIONAL NORMALIZED RATIO (INR) REFERENCE RANGES Reference [...] Provider LAB BLOOD ORDERAB LES Final Result [facility] [address] [place] [address] [phone] documented in this encounter Visit Diagnoses Not on filedocumented in this encounter Additional Health Concerns Assessment Noted Time PHQ-9 Depression Total Score: 0 09/30/19 24 11:02 AM EDT documented as of this encounter Care Teams Sheet Metal Production Worker Relationship Specialty Start Date End Date Bc Hunter MD [address] [place] [address] PCP - General Internal Medicine 01/03/19 documented as of this encounter
--- OUTSIDE RECORDS SUMMARY | 2024-04-24 12:39 | XMS_ITS | Encounter Summary ---
Author Organization [employer] Address 75 [facility] 7 [place] [address] Care Team Providers Care Bacon Slicer Name Role Phone Bc Hunter MD Primary Care Prov ider Reason for Visit * Reason Onset Date Comments other 06/04/2022 Encounter Details Date Type Department Care Team ([facility] st Contact Info) Description 06/04/2022 Telephone [facility] MEDICINE [address] [place] [address] Bc Hunter MD [address] [place], [place] [phone] other Social History Tobacco Use Types Packs/Day [...] - 06/04/2022 3:32 PM EDT T[facility] Kayla requesting PRE-OP notes to be faxed to [phone],Membership Sales Advisor advised PRE-OP appt was cancelled 06/01/22 and is requesting a call back for clarification. Please contact [phone] Please see above message. Thanks * Telephone Encounter - Gena Sampson - 06/04/2022 12:40 PM EDT Luis Fernando from [facility] Kayla requesting PRE-OP notes to be faxed to [phone],Membership Sales Advisor advised PRE-OP appt was cancelled 06/01/22 and is requesting a call back for clarification. Please contact [phone] ext [phone] documented in this encounter Plan of Treatment Upcoming Encounters Date Type Department Care Team (Late st Contact Info) Description 04/26/2024 11:15 AM EST Office Visit [facility] MED & PEDS [address] [place] [address] Bc Hunter MD [address] [place] [address] documented as of this encounter Visit Diagnoses Not on filedocumented in this encounter Care Teams Bacon Slicer Relationship Specialty Start Date End Date Bc Hunter MD [address] [place] [address] PCP - General Internal Medicine 01/03/19 documented as of this encounter
--- OUTSIDE RECORDS SUMMARY | 2024-04-24 12:39 | XMS_ITS | Clinical Summary ---
Author Organization [employer] Address [address] [facility] 7t [place] [address] Care Team Providers Care Procurement Agent Name Role Phone Bc Hunter MD Primary Care Prov ider Allergies No known active allergies Medications tamsulosin (Flomax) 0.4 MG 24 hr capsule TAKE 1 CAPSULE BY MOUTH EVERY DAY IN THE MORNING 90 capsule 03/09/20 23 Active albuterol (ProAir HFA) 108 (90 Base) MCG/ACT inhaler inhale 2 puff by inhalation route every 4 hours as needed 18 g 3 05/11/19 24 Active benztropine (Cogentin) 1 MG tablet Take 1 tablet by mouth 2 times daily. 07/13/19 24 Active divalproex (Depakote ER) 500 MG 24 hr tablet Take 2 tablets by mouth at bedtime. 07/13/19 24 Active fluPHENAZine decanoate (Prolixin) 25 MG/ML injection Inject 25 mg into the shoulder, thigh, or buttocks every 28 (twenty-eight) days. 07/13/19 24 Active risperiDONE (RisperDAL) 1 MG tablet Take 1 tablet by mouth 2 times daily. 04/13/19 20 Active mometasone (Elocon) 0.1 % lotion Apply topically Once per day. Please provide scalp solution 60 mL 07/29/19 24 025 Active ferrous sulfate 325 (65 Fe) MG tablet Take 1 tablet (325 mg) by mouth with breakfast. 90 tablet 3 09/30/19 24 025 Active ketoconazole (Nizoral) 2 % shampooIndications :Seborrheic dermatitis of scalp Apply topically 2 (two) times a week. Use to wash out flucinonide oil in the morning 3x/week as directed 100 mL 2 10/28/19 24 Active levothyroxine (Synthroid, Levoxyl) 25 MCG tablet TAKE 1 TABLET BY MOUTH EVERY DAY AT 6 AM 90 tablet 3 11/08/19 24 Active levothyroxine (Synthroid, Levoxyl) 25 MCG tablet TAKE 1 TABLET (25 MCG) BY MOUTH IN THE MORNING 90 tablet 3 11/08/19 24 Active magnesium oxide (Mag-Ox) 400 (240 Mg) MG tabletIndications: Mixed hyperlipidemia TAKE 1 TABLET BY MOUTH TWICE A DAY 180 tablet 1 11/15/19 24 Active Trelegy Ellipta 100-62.5-25 MCG/ACT aerosol powder Inhale 1 puff Once per day. 60 each 3 11/24/19 24 Active Multiple Vitamin (Daily-Stanley Multivitamin) tablet Take 1 tablet by mouth Once per day. TAKE 1 TABLET BY MOUTH EVERY DAY WITH FOOD 90 tablet 3 11/24/19 24 Active dicyclomine (Bentyl) 20 MG tabletIndications: Irritable bowel syndrome with diarrhea TAKE 1 TABLET BY MOUTH BEFORE BREAKFAST AND BEFORE EVENING MEAL. 180 tablet 1 01/04/20 24 Active pantoprazole (ProtoNix) 40 MG EC tabletIndications: Gastroesophageal reflux disease without esophagitis TAKE 1 TABLET BY MOUTH TWICE A DAY IN THE MORNING AND IN THE EVENING 180 tablet 1 01/04/20 24 Active albuterol 108 (90 Base) MCG/ACT inhaler Inhale 2 puffs every 4 (four) hours if needed for wheezing. 18 g 1 01/25/20 24 025 Active loratadine (Claritin) 10 MG tablet Take 1 tablet (10 mg) by mouth if needed each day for allergies. 30 tablet 2 02/28/20 24 Active atorvastatin (Lipitor) 40 MG tabletIndications: Mixed hyperlipidemia TAKE 1 TABLET BY MOUTH EVERY DAY IN THE MORNING 90 tablet 1 03/20/20 24 Active warfarin (Coumadin) 2 MG tabletIndications: S/P aortic valve replacement TAKE 1-2 TABLETS EVERY EVENING DIRECTED BY COUMADIN CLINIC 180 tablet 1 03/20/20 24 Active Active Problems Problem Noted Date Diagnosed Date Seborrheic dermatitis of scalp 01/26/2023 Assessment & Plan (07/20/2023 8:52 PM EDT): Followed by [facility] Derm clinic Refill of topical ketoconazole [...] valve replacement 04/28/2022 Overview (07/20/2023): Followed by [facility] Coumadin Clinic Assessment & Plan (07/20/2023 8:46 PM EDT): Cardiology consult scheduled 07/20/23 No reported hx of bleeding, no reported chest pain/shortness of breath Discussed with PCP and [facility] Coumadin Clinic (Lori FLETCHER). Plan to bridge pt from Eliquis to Coumadin. May DC Eliquis once Coumadin therapeutic Coumadin dosinmg on Wednesday and Wednesday 4mg all other days of the week Plan: [facility] Coagulation clinic to reach out to senior living to schedule INR check and re-start on [...] Other schizophrenia 09/22/2011 Overview (07/20/2023): Living in Intermediate Assessment & Plan (07/30/2023 12:17 AM EDT): [...] Encounters Date Type Department Care Team Description 04/24/2024 Orders Only GENERIC EXTERNAL DATA DEPARTMENT Provider, Generic External Data 04/19/2024 Travel 04/17/2024 Orders Only GENERIC EXTERNAL DATA DEPARTMENT Provider, Generic External Data 04/10/2024 Orders Only GENERIC EXTERNAL DATA DEPARTMENT Provider, Generic External Data 04/05/2024 Telephone [facility] MED & PEDS [address] [place] [address] Bc Hunter MD [facility] 04/05/2024 Orders Only GENERIC EXTERNAL DATA DEPARTMENT Provider, Generic External Data 03/29/2024 Orders Only GENERIC EXTERNAL DATA DEPARTMENT Provider, Generic External Data 03/19/2024 Refill [facility] MED & PEDS [address] [place] [address] Oralia Mazariegos FNP S/P aortic valve replacement 03/19/2024 Refill [facility] MEDICINE [address] [place] [address] Zafar Richard MD Mixed hyperlipidemia 03/01/2024 Orders Only GENERIC EXTERNAL DATA DEPARTMENT Provider, Generic External Data 02/28/2024 Refill [facility] MEDICINE [address] [place] [address] Bc Hunter MD 02/02/2024 Orders Only GENERIC EXTERNAL DATA DEPARTMENT Provider, Generic External Data 01/24/2024 Refill [facility]IC[facility] [address] [place] [address] Bc Hunter MD from Last 3 Months [...] 09/30/2023 11:01 AM EDT Plan of Treatment Upcoming Encounters Date Type Department Care Team (Late st Contact Info) Description 04/26/2024 11:15 AM EST Office Visit [facility] CHC MED & PEDS [address] [place] [address] Bc Hunter MD [address] [place] [address] Health Maintenance Due Date Last Done Comments CT Colonography 1952 Colonoscopy 1952 Colorectal Cancer Screening 1950 FIT DNA/Cologuard 1952 FIT 1952 FOBT 1950 Sigmoidoscopy 1952 Alcohol/Substance Use Screening 1964 RSV Patients and Patients Aged 60 years or older (1 - Risk 60-74 years 1-dose series) 2012 Zoster Vaccines (2 of 2) 06/27/2021 05/02/2021 COVID-19 Vaccine (4 - season) 2023 01/09/2021, 05/16/2020, 04/25/2020 Influenza Vaccine (#1) 2023 , 12/11/2020, 03/17/2019, Additional history exists Pneumococcal Vaccine: 50+ Years (3 of 3 - PCV20 or PCV21) 03/17/2024 03/17/2019, 11/22/2014, 06/17/2000 SDOH Screening 07/18/2024 07/19/2023 Depression Screening 09/29/2024 [...] COAG CLINIC Routine 04/24/2024 11:31 AM EST PROTHROMBIN TIME WHOLE BLD POC Routine 04/17/2024 [...] WHOLE BLD POC (04/24/2024 11:31 AM EST) Only the most recent of7 resultswithin the time period is included. Protime 21.6(H) 11.1 - 13.5 sec [facility] 04/24/2024 11:3 1 AM EST 04/24/2024 11:41 AM EST Generic External Data Provider LAB BLOOD ORDERAB LES Final Result Performing Organization Address [facility]/ZIP Co de Phone Number [facility] [address] [place] [phone] * (ABNORMAL) ~PT, ~INR - ANTI COAG CLINIC (04/24/2024 11:31 AM EST) Only the most recent of7 resultswithin the time period is included. Prothrombin Time INR 1.8(H) 0.9 - 1.1 [facility] Comment:METER #: [id number] TERNATIONAL NORMALIZED RATIO (INR) REFERENCE RANGES Reference [...] 1 AM EST 04/24/2024 11:41 AM EST [place] External Data Provider LAB BLOOD ORDERAB LES Final Result Performing Organization Address [facility]/ZIP Co de Phone Number [facility] [address] [place] [phone] * Lipid Panel, Standard (05/06/2023 11:48 AM EST) Triglycerides 61 <150 mg/dL [facility] Comment:Desirable Triglyceri de: less than 150 mg/dLBorderline High Triglyceride 150-199 mg/dLHigh Triglyceride: 200-499 mg/dLVery High Triglyceride: greater than or equal to 5OO mg/dL Cholesterol 166 <200 mg/dL [facility] Comment:Desirable Cholestero l: less than 200 mg/dLBorderline High Cholesterol: 200-239 mg/dLHigh Cholesterol: greater than 239 mg/dL LDL Cholesterol Calculated 94 <100 mg/dL [facility] Comment:Desirable LDL: less than 100 mg/dLNear Optimal/Above Optimal LDL: 110- 129 mg/dLBorderline High LDL: 130-159 mg/dLHigh LDL: 160-189 mg/dLVery High LDL: greater than or equal to 190 mg/dL HDL Cholesterol 60 >40 mg/dL [facility] Comment:Desirable HDL: great er than 40 mg/dL Note: This HDL assay may give artificially low results in patients with liver disease. Blood Venous blood specimen / Unknown 05/06/2023 11:48 AM EST 05/06/2023 2:09 PM EST Bc Rascon MD LAB BLOOD ORDERABL ES Final Result [facility] [address] [place] [phone] * Hepatitis C Antibody with Reflex to HCV, RNA, Quantitative, Real-Time PCR (07/10/2022 11:31 AM EDT) Hepatitis C Antibody NON-REACT DEZ NON-REACT DEZ [facility] [place] [facility] Index 0.09 <1.00 [facility] [place] [facility] Comment: HCV antibody was non-reactive. There is no laboratory evidence of HCV infection. In most cases, no further action is required. However, if recent HCV exposure is suspected, a test for HCV RNA (test code 20779) is suggested. For additional information please refer to http://education.Ariisto/faq/HJF06m9 (This link is being provided for informational/ educational purposes only.) Blood Venous blood specimen / Unknown 07/10/2022 11:31 AM EDT 07/10/2022 11:32 AM EDT Narrative [facility] - 07/11/2022 5:06 AM EDT FASTING:NO FASTING: NO us Bc Rascon MD LAB BLOOD ORDERABL ES Final Result [facility] [address], [place] [address] [facility] [address] [place] [address] from Last 3 Months or Most Recently Relevant to [place] [id number] [facility] Care Teams Procurement Agent Relationship Specialty Start Date End Date YatesBc Ledezma MD [address] [place] [phone] PCP - General Internal Medicine 01/03/19
--- OUTSIDE RECORDS SUMMARY | 2024-04-24 12:39 | XMS_ITS | Encounter Summary ---
Author Organization [employer] Address [address] [facility] [address] [place] [address] Care Team Providers Care Electrical Sign Servicer Name Role Phone Bc Hunter MD Primary Care Prov ider Reason for Visit * Reason Comments Med Change Request Encounter Details Date Type Department Care Team ([facility] Contact Info) Description 07/19/2023 Refill [facility] MED & PEDS [address] [place] [address] Oralia Mazariegos FNP 505 [place] [address] Social History Tobacco Use Types Packs/Day Years [...] Description 04/26/2024 11:15 AM EST Office Visit [facility] 505 [place] [address] Bc Hunter MD 505 [place] [address] documented as of this encounter Visit Diagnoses Not on filedocumented in this encounter Additional Health Concerns Assessment Noted Time PHQ-9 Depression Total Score: 0 07/11/19 23 11:26 AM EDT documented as of this encounter Care Teams Electrical Sign Servicer Relationship Specialty Start Date End Date Bc Hunter MD [address] [place] [address] PCP - General Internal Medicine 01/03/19 documented as of this encounter
--- OUTSIDE RECORDS SUMMARY | 2024-04-24 12:39 | XMS_ITS | Encounter Summary ---
Author Organization [employer] Address [address] 7[address] [place] [address] Care Team Providers Care Senior Care Specialist Name Role Phone Bc Hunter MD [...] [facility] 505 [place] [address] Bc Hunter MD 505 [place] [address] documented as of this encounter Procedures Procedure Name Priority Date/Time Associated Diagnosis Comments PROTHROMBIN TIME WHOLE BLD POC Routine 04/10/2024 11:12 AM EST ~PT, ~INR - ANTI COAG CLINIC Routine 04/10/2024 11:12 AM EST documented in this encounter Results * (ABNORMAL) PROTHROMBIN TIME WHOLE BLD POC (04/10/2024 11:12 AM EST) Protime 28.7(H) 11.1 - 13.5 sec [facility] 04/10/2024 11:1 2 AM EST 04/10/2024 11:14 AM EST us Generic External Data Provider LAB BLOOD ORDERAB LES Final Result [facility] [address] [place] [address] [phone] * (ABNORMAL) ~PT, ~INR - ANTI COAG CLINIC (04/10/2024 11:12 AM EST) Prothrombin Time INR 2.4(H) 0.9 - 1.1 [facility] Comment:METER #: [id number] TERNATIONAL NORMALIZED RATIO (INR) REFERENCE RANGES Reference [...] Provider LAB BLOOD ORDERAB LES Final Result [facility] [address] [place] [address] [phone] documented in this encounter Visit Diagnoses Not on filedocumented in this encounter Additional Health Concerns Assessment Noted Time PHQ-9 Depression Total Score: 0 09/30/19 24 11:02 AM EDT documented as of this encounter Care Teams Senior Care Specialist Relationship Specialty Start Date End Date Bc Hunter MD [address] [place] [phone] PCP - General Internal Medicine 01/03/19 documented as of this encounter
--- OUTSIDE RECORDS SUMMARY | 2024-04-24 12:39 | XMS_ITS | Encounter Summary ---
Author Organization [employer] Address [address] [facility] 7 [place] [address] Care Team Providers Care Gluing Machine Operator Automatic Name Role Phone Bc Hunter MD Primary Care Prov ider Encounter Details Date Type Department Care Team (Late st Contact Info) Description 07/16/2022 Telephone [facility] CH[facility] MED & PEDS [address] [place], [place] [phone] Bc Hunter MD 505 [place] [address] Social History Tobacco Use Types Packs/Day Years [...] swelling. Right side. Please contact Lori @ [phone] if additional labs are requested by PCP [...] swelling. Right side. Please contact Lori @ [phone] if additional labs are requested by PCP [...] 04/26/2024 11:15 AM EST Office Visit [facility] MED & PEDS [address] [place] [address] Bc Hunter MD 505 [place] [address] documented as of this encounter Visit Diagnoses Not on filedocumented in this encounter Additional Health Concerns Assessment Noted Time PHQ-9 Depression Total Score: 0 07/11/19 23 11:26 AM EDT documented as of this encounter Care Teams Gluing Machine Operator Automatic Relationship Specialty Start Date End Date Bc Hunter MD 505 [place] [address] PCP - General Internal Medicine 01/03/19 documented as of this encounter
--- OUTSIDE RECORDS SUMMARY | 2024-04-24 12:39 | XMS_ITS | Encounter Summary ---
Author Organization [employer] Address [address] [place] [address] Care Team Providers Care Cripple Chaser Name Role Phone Bc Hunter MD Primary [...] [facility] [address] [place] [address] Bc Hunter MD [address] [place] [address] documented as of this encounter Procedures Procedure Name Priority Date/Time Associated Diagnosis Comments PROTHROMBIN TIME WHOLE BLD POC Routine 04/17/2024 11:43 AM EST ~PT, ~INR - ANTI COAG CLINIC Routine 04/17/2024 11:43 AM EST documented in this encounter Results * (ABNORMAL) PROTHROMBIN TIME WHOLE BLD POC (04/17/2024 11:43 AM EST) Protime 21.4(H) 11.1 - 13.5 sec [facility] 04/17/2024 11:4 3 AM EST 04/17/2024 11:45 AM EST us Generic External Data Provider LAB BLOOD ORDERAB LES Final Result [facility] [address] [place] [address] [phone] * (ABNORMAL) ~PT, ~INR - ANTI COAG CLINIC (04/17/2024 11:43 AM EST) Prothrombin Time INR 1.8(H) 0.9 - 1.1 [facility] Comment:METER #: [id number] TERNATIONAL NORMALIZED RATIO (INR) REFERENCE RANGES Reference [...] Provider LAB BLOOD ORDERAB LES Final Result [facility] [address] [place] [address] [phone] documented in this encounter Visit Diagnoses Not on filedocumented in this encounter Additional Health Concerns Assessment Noted Time PHQ-9 Depression Total Score: 0 09/30/19 24 11:02 AM EDT documented as of this encounter Care Teams Cripple Chaser Relationship Specialty Start Date End Date Bc Hunter MD [address] [place] [address] PCP - General Internal Medicine 01/03/19 documented as of this encounter
--- OUTSIDE RECORDS SUMMARY | 2024-04-24 12:39 | XMS_ITS | Encounter Summary ---
Author Organization [employer] Address [address] [facility] [facility] [address] [address] 7 [place] [address] Care Team Providers Care Upholstery Estimator Name Role Phone Bc Hunter MD Primary Care Prov ider Reason for Visit * Reason Comments Med Refill Encounter Details Date Type Department Care Team ([facility] st Contact Info) Description 05/18/2023 Refill [facility] CHC MED & PEDS [address] [place] [address] Bc Hunter MD 505 [place] [address] Social History Tobacco Use Types Packs/Day Years [...] Description 04/26/2024 11:15 AM EST Office Visit [facility] MED & PEDS [address] [place] [address] Bc Hunter MD [address] [place] [address] documented as of this encounter Visit Diagnoses Not on filedocumented in this encounter Additional Health Concerns Assessment Noted Time PHQ-9 Depression Total Score: 0 07/11/19 23 11:26 AM EDT documented as of this encounter Care Teams Upholstery Estimator Relationship Specialty Start Date End Date Bc Hunter MD [address] [place] [address] PCP - General Internal Medicine 01/03/19 documented as of this encounter
--- OUTSIDE RECORDS SUMMARY | 2024-04-24 12:39 | XMS_ITS | Encounter Summary ---
Author Organization [facility] Address [address] [place] [address] Phone Care Team Providers Care Patent Chemist Name Role Phone Bc Yates Primary Care Provider [phone] Reason for Visit * Reason Comments Med Refill Encounter Details Date Type Department Care Team (Late st Contact Info) Description 01/13/2022 Refill [facility] [address] [place] [address] Trever Lopez MD [address] [place] [address] Social History Tobacco Use Types [...] [facility] [address] [place] [address] Trever Lopez MD [address] [place] [place] [address] documented as of this encounter Visit Diagnoses Not on filedocumented in this encounter Care Teams Patent Chemist Relationship Specialty Start Date End Date Bc Yates PCP - General Internal Medicine 10/05/22 documented as of this encounter
== END 2024-04-24 11:49 | disposition home or self-care (01) ==
LOC: HO.ACS 11:23
PROVIDERS: PCP Internal Medicine; Visit Provider Internal Medicine
DX: Z79.01 Long term (current) use of anticoagulants (principal)

== ENCOUNTER → 2024-04-24 11:23 | Outpatient (BNVA) | payer MEDICARE, MEDICAID, SELFPAY | PROVIDERS: PCP Internal Medicine; Visit Provider Internal Medicine | DX: Z95.2 Presence of prosthetic heart valve (principal); Z79.01 Long term (current) use of anticoagulants; Z51.81 Encounter for therapeutic drug level monitoring | CPT/HCPCS: 85610; 99211 ==

== ENCOUNTER 2024-05-01 11:07 | Outpatient (AMB) | payer MEDICARE, MEDICAID, SELFPAY ==
[2024-05-01 11:14] LABS: Prothrombin Time Whole Bld POC 51.9 sec (11.1-13.5); ~PT, ~INR - Anti Coag Clinic 4.3 (0.9-1.1)
--- NOTE | 2024-05-01 11:23 | MHC.OFFVISCO ---
Intake Intake Visit Reasons: Anticoagulation Allergies No Known Allergies Allergy (Mild, Verified 05/01/24 11:08) NOT APPLICABLE Nursing Note pt ambulated with SENIOR ACCOUNTING ANALYST to ACS today INR 4.3 out of therapeutic range Medications and supplements reviewed Patient status: pt seemed more disheveled than usual - concrete handler stated he has been drinking and polysubstance use *It was explained to pt that ETOH and Substance abuse can cause the INR to flucuate putting him at risk for bleeding or clotting and more frequent visitis Medications or supplements: no changes Diet: SENIOR ACCOUNTING ANALYST states he snacks on junk food mostly, *it was explained he needs protein and fruits and vegetables to help stablize his blood Denies any signs and symptoms of bleeding or clotting or unusual bruising Bleeding, bruising, clotting discussed Nutritional guidance given: protein and greens fruits and vegetables Dose: hold today and keep dose the same for now 2mg x 2 days/ 4mg x 5 days F/U INR Date: weekly?? Patient and SENIOR ACCOUNTING ANALYST Krystin verbalize understanding of instructions given with read. Anti-Coag Initial Assessment Social Hx Patient Tobacco Use Status: Refuse Tobacco use screen alcohol intake: never Coding Level of Care Code Est Patient Level 1 Diagnoses Current use of anticoagulant therapy Z79.01 Results AMB INR Fingerstick AMB INR Fingerstick 4.3 Last Edit by Raissa Hull RN on 05/01/24 11:14 MANUAL ENTRY Assessment & Plan Assessment & Plan (1) Current use of anticoagulant therapy: Code(s): Z79.01 - [facility] (current) use of anticoagulants Category: Medical
== END 2024-05-01 11:27 | disposition home or self-care (01) ==
LOC: HO.ACS 11:07
PROVIDERS: PCP Internal Medicine; Visit Provider Internal Medicine
DX: Z79.01 Long term (current) use of anticoagulants (principal)

== ENCOUNTER → 2024-05-01 11:07 | Outpatient (BNVA) | payer MEDICARE, MEDICAID, SELFPAY | PROVIDERS: PCP Internal Medicine; Visit Provider Internal Medicine | DX: Z95.2 Presence of prosthetic heart valve (principal); Z79.01 Long term (current) use of anticoagulants; Z51.81 Encounter for therapeutic drug level monitoring | CPT/HCPCS: 85610; 99211 ==

== ENCOUNTER 2024-05-10 15:03 | Outpatient (AMB) | payer MEDICARE, MEDICAID, SELFPAY ==
[2024-05-10 15:06] VITALS: BP 102/58; PULSE 94; O2SAT 98; BMI 23.9
--- NOTE | 2024-05-10 15:06 | MHC.OFFVIS ---
Vital Signs 05/10/24 15:06 Height 6 ft Weight 176 lb BMI 23.9 BP 102/58 L Blood Pressure Location Rt brachial Position Sitting Pulse 94 Pulse Source Doppler Pulse Oximetry (%) 98 Oxygen Delivery Method Room Air Intake Visit Reasons: COPD/Review CT Allergies No Known Allergies Allergy (Mild, Verified 05/10/24 15:14) NOT APPLICABLE HPI HPI COPD/Review CT: Details: 73-year-old gentleman, active 60+ pack-year smoker, with underlying history of what appears to be schizophrenia, followed for underlying moderate COPD and increasing pulmonary nodule. Patient has been using Trelegy and albuterol MDI? with suboptimal control of his underlying symptoms.? He denies any recent exacerbations.? PFS Medical History Incarcerated right inguinal hernia Normocytic anemia Metabolic encephalopathy MSSA bacteremia History of atrial fibrillation COPD (chronic obstructive pulmonary disease) Hypothyroid Bipolar 1 disorder Surgical History History of heart surgery Social History Household Members: Other Household Members Other:: care home Housing: House Housing Other:: care home Do you presently have visiting nurse or other home services: Yes (care home) Alcohol intake: never Comment: Close observation Patient Tobacco Use Status: Refuse Tobacco use screen Substance Use Type: Marijuana Advance Directives Date on File: 06/04/23 service: No Sexual orientation: Straight/Heterosexual Review of Systems Const Denies daytime sleepiness, Denies excessive sweating, Denies fatigue, Denies fever(s), Denies lethargy, Denies malaise, Denies night sweats, Denies snoring and Denies weight loss Eyes Denies blurry vision and Denies itchy eyes ENT Denies nasal congestion, Denies post nasal drip, Denies sinus pain, Denies sinus pressure and Denies other ( Thrush) Card Denies chest pain, Denies pedal edema, Denies dyspnea, Denies orthopnea and Denies paroxysmal nocturnal dyspnea Resp Denies cough, Denies hemoptysis, Denies excessive phlegm production, Denies dyspnea, Denies snoring and Denies wheezing GI Denies abdominal pain and Denies heartburn Musc Denies myalgias, Denies arthralgias and Denies joint swelling Skin/Breast Denies rash Neuro Denies memory loss and Denies seizure-like activity Psych Denies abnormal sleep pattern, Denies anxiety and Denies memory loss Endo Denies excessive sweating, Denies fatigue and Denies heat intolerance Clint/Lymph Denies easy bruising Aller/Immun Denies itchy eyes, Denies seasonal rhinorrhea and Denies wheezing Physical Exam Vital Signs: Last Vital Signs Pulse 94 05/10/24 15:06 BP 102/58 L 05/10/24 15:06 Pulse Ox 98 05/10/24 15:06 Oxygen Delivery Method Room Air 05/10/24 15:06 BMI result Body Mass Index 23.9 Const General: no acute distress and alert Nutritional Appearance: not obese Orientation/consciousness: Other orientation findings ( oriented) HEENT Head: Yes atraumatic Eyes General: appearance normal, both eyes and all related structures Sclerae: sclerae normal EOM: EOMs intact bilaterally Neck Neck: Yes supple Lymphatic: no lymphadenopathy noted Resp Effort & Inspection: normal respiratory effort and no use of accessory muscles Auscultation: clear to auscultation bilaterally Cardio Rate: regular rate Rhythm: regular rhythm Heart sounds: no gallops, no murmurs and no rubs Skin General skin exam: other ( warm) Extrem General: No clubbing, No cyanosis and No edema Assessment & Plan Assessment & Plan (1) COPD (chronic obstructive pulmonary disease): Code(s): J44.9 - Chronic obstructive pulmonary disease, unspecified Category: Medical Plan: Suboptimal control on Trelegy and albuterol MDI. Will add Yupelri. (2) Right upper lobe pulmonary nodule: Code(s): R91.1 - Solitary pulmonary nodule Category: Medical Plan: Increasing nodule, will obtain PET/CT. Orders: Orders PET CT fusion skull to thigh Today R91.1 - Solitary pulmonary nodule Medications: New revefenacin (Yupelri) 175 mcg (3 mL) inhalation DAILY 180 mL 6RF J44.9 - Chronic obstructive pulmonary disease, unspecified Coding Level of Care Code Est Pt Level 4 (40586) Diagnoses COPD (chronic obstructive pulmonary disease) J44.9 Right upper lobe pulmonary nodule R91.1
--- OUTSIDE RECORDS SUMMARY | 2024-05-10 15:09 | XMS_ITS | Encounter Summary ---
Author Organization [employer] Address [address] [facility] 7 [place] [address] Care Team Providers Care Deputy Sheriff Chief Name Role Phone Bc Hunter MD Primary Care Prov ider Encounter Details Date Type Department Care Team (Late st Contact Info) Description 07/16/2022 Telephone [facility] CHC MED & PEDS [address] [place], [place] [phone] Bc Hunter MD 505 [place] [address] Social History Tobacco Use Types Packs/Day Years [...] swelling. Right side. Please contact Lori @ [phone] if additional labs are requested by PCP [...] swelling. Right side. Please contact Lori @ [phone] if additional labs are requested by PCP [...] as of this encounter Care Teams Deputy Sheriff Chief Relationship Specialty Start Date End Date Bc Hunter MD [address] [place] [phone] PCP - General Internal Medicine 01/03/19 documented as of this encounter
--- OUTSIDE RECORDS SUMMARY | 2024-05-10 15:09 | XMS_ITS | Encounter Summary ---
Author Organization [employer] Address [address] [place] [address] 7 [place] [address] Care Team Providers Care Ornamental Ironworking Supervisor Name Role Phone Bc Hunter MD Primary Care Prov ider Reason for Referral * Imaging (Routine) - Authorized Specialty Diagnoses / Procedures Referred By Contac t Referred To Contact Radiology Diagnoses Nodule of left lung Procedures CT Chest w/o Contrast Bc Hunter MD [address] [place] [address] Phone: tel: fax: [address] Phone: tel: fax: Referral ID Status Reason Start Date Expiration Date V isits Requested Visits Authorized [id number] Authorized 04/26/2024 04/26/2025 1 1 Encounter Details Date Type Department Care Team (Latest Contact Info) Description 04/26/2024 11:15 AM EST Office Visit [facility] MED & PEDS 505 [place], [place] [phone] Bc Hunter MD 505 [place], [place] [phone] Acquired hypothyroidism (Primary Dx); Other iron deficiency anemia; Nodule of left lung Social History Tobacco Use Types Packs/Day Years [...] AM EDT documented as of this encounter Last Filed Vital Signs Vital Sign Reading Time Taken Comments Blood Pressure 122/60 04/26/2024 11:30 AM EST Pulse 72 04/26/2024 11:30 AM EST Temperature 36.8 ??C (98.2 ??F) 04/26/2024 11:[address] Respiratory Rate 18 04/26/2024 11:30 AM EST Oxygen Saturation 97% 04/26/2024 11:30 AM EST Inhaled Oxygen Concentration - - Weight 82.6 kg (182 lb 3.2 oz) 04/26/2024 11:30 AM EST Height 177.8 cm (5' 10 ) 04/26/2024 11:30 AM EST Body Mass Index 26.14 04/26/2024 11:30 AM EST documented in this encounter Progress Notes * Bc Rascon MD - 04/26/2024 11:15 AM EST Subjective Patient ID: Chris Zaragoza is a 73 y.o. male who presents for No chief complaint on file.. Thyroid Problem Presents for follow-up visit. Patient reports no depressed mood, fatigue or palpitations. The symptoms have been stable. Review of Systems Constitutional: Negative for fatigue. Cardiovascular: Negative for palpitations. Objective Physical Exam Constitutional: Appearance: Normal appearance. Cardiovascular: Rate and Rhythm: Normal rate and regular rhythm. Heart sounds: No murmur heard. Pulmonary: Effort: Pulmonary effort is normal. No respiratory distress. Breath sounds: Normal breath sounds. No stridor. No wheezing or rhonchi. Abdominal: General: Abdomen is flat. There is no distension. Tenderness: There is no abdominal tenderness. Hernia: A hernia is present. Neurological: General: No focal deficit present. Mental Status: He is alert and oriented to person, place, and time. Psychiatric: Mood and Affect: Mood normal. Behavior: Behavior normal. Assessment/Plan Problem List Items Addressed This Visit Hypothyroidism - Primary New labs will be ordered for guidance of therapy Relevant Orders Comprehensive Metabolic Panel Lipid Panel, Standard TSH W/Reflex to FT4 Iron deficiency anemia Will order iron levels to evaluate current status, no reported hx of bleeding Relevant Orders CBC auto differential Iron And Total Iron Binding Capacity Nodule of left lung Ct scan with suspicious left lung nodule follow Will order a follow up LDCT scan, experimental machining lab manager was told to contact pulmonology office Relevant Orders CT Chest w/o Contrast documented in this encounter Miscellaneous Notes * Assessment & Plan Note - Bc Rascon MD - 04/26/2024 11:54 AM ESTAssociated Problem(s): Nodule of left lung Will order a follow up LDCT scan, experimental machining lab manager was told to contact pulmonology office documented in this encounter Plan of Treatment Scheduled Orders Name Type Priority Associated Diagnoses Orde r Schedule CBC auto differential Lab Routine Other iron deficiency anemia Expected: 04/26/2024 (Approximate), Expires: 04/26/2025 Iron And Total Iron Binding Capacity Lab Routine Other iron deficiency anemia Expected: 04/26/2024, Expires: 04/26/2025 Comprehensive Metabolic Panel Lab Routine Acquired hypothyroidism Expected: 04/26/2024 (Approximate), Expires: 04/26/2025 Lipid Panel, Standard Lab Routine Acquired hypothyroidism Expected: 04/26/2024 (Approximate), Expires: 04/26/2025 TSH W/Reflex to FT4 Lab Routine Acquired hypothyroidism Expected: 04/26/2024 (Approximate), Expires: 04/26/2025 CT Chest w/o Contrast Imaging Routine Nodule of left lung Expected: 04/26/2024, Expires: 04/26/2025 documented as of this encounter Visit Diagnoses Diagnosis Acquired hypothyroidism- Primary Unspecified hypothyroidism Other iron deficiency anemia Nodule of left lung Other diseases of lung, not elsewhere classified documented in this encounter Additional Health Concerns Assessment Noted Time PHQ-9 Depression Total Score: 0 09/30/19 24 11:02 AM EDT documented as of this encounter Care Teams Ornamental Ironworking Supervisor Relationship Specialty Start Date End Date Bc Hunter MD [address] [place] [phone] PCP - General Internal Medicine 01/03/19 documented as of this encounter
--- OUTSIDE RECORDS SUMMARY | 2024-05-10 15:09 | XMS_ITS | Encounter Summary ---
Author Organization [employer] Address [address] [facility] [place] [address] Care Team Providers Care Grass Farm Laborer Name Role Phone Bc Hunter MD Primary Care Prov ider Encounter Details Date Type Department Care Team (Late st Contact Info) Description 05/01/2024 Orders Only GENERIC EXTERNAL DATA DEPARTMENT Provider, [...] Comments PROTHROMBIN TIME WHOLE BLD POC Routine 05/01/2024 11:12 AM EST ~PT, ~INR - ANTI COAG CLINIC Routine 05/01/2024 11:12 AM EST documented in this encounter Results * (ABNORMAL) PROTHROMBIN TIME WHOLE BLD POC (05/01/2024 11:12 AM EST) Protime 51.9(H) 11.1 - 13.5 sec [facility] 05/01/2024 11:1 2 AM EST 05/01/2024 11:14 AM EST us Generic External Data Provider LAB BLOOD ORDERAB LES Final Result Performing Organization Address City/State/[facility] Co de Phone Number [facility] [address] [place] [phone] * (ABNORMAL) ~PT, ~INR - ANTI COAG CLINIC (05/01/2024 11:12 AM EST) Prothrombin Time INR 4.3(H) 0.9 - 1.1 [facility] Comment:METER #: [id number] TERNATIONAL NORMALIZED RATIO (INR) REFERENCE RANGES Reference RangeFor patients not on anticoagulant therapy: 0.9 - 1.1INR ranges for oral anticoagulanttherapy:For prevention and treatment of venous thrombosis and pulmonary embolism: 2.0 - 3.0For acute myocardial infarction with aspirin therapy: 2.0 - 3.0For acute myocardial infarction without aspirin therapy: 3.0 - 4.0For patients with mechanical prosthetic heart valves: 2.5 - 3.5 05/01/2024 11:1 2 AM EST 05/01/2024 11:14 AM EST us Generic External Data Provider LAB BLOOD ORDERAB LES Final Result [facility] [address] [place] [address] [phone] documented in this encounter Visit Diagnoses Not on filedocumented in this encounter Additional Health Concerns Assessment Noted Time PHQ-9 Depression Total Score: 0 09/30/19 24 11:02 AM EDT documented as of this encounter Care Teams Grass Farm Laborer Relationship Specialty Start Date End Date Bc Hunter MD [address] [place] [phone] PCP - General Internal Medicine 01/03/19 documented as of this encounter
--- OUTSIDE RECORDS SUMMARY | 2024-05-10 15:09 | XMS_ITS | Encounter Summary ---
Author Organization [employer] Address [address] [facility] [address] [place] [address] Care Team Providers Care Employment Representative Name Role Phone Bc Hunter MD Primary Care Prov ider Reason for Visit * Reason Comments Med Change Request Encounter Details Date Type Department Care Team ([facility] Contact Info) Description 07/19/2023 Refill [facility] MED & PEDS [address] [place] [address] Oralia Mazariegos FNP [address] [place] [address] Social History Tobacco Use Types Packs/Day Years [...] documented as of this encounter Care Teams Employment Representative Relationship Specialty Start Date End Date Bc Hunter MD [address] [place] [phone] PCP - General Internal Medicine 01/03/19 documented as of this encounter
--- OUTSIDE RECORDS SUMMARY | 2024-05-10 15:09 | XMS_ITS | Encounter Summary ---
Author Organization [employer] Address 75 [facility] 7 [place] [address] Care Team Providers Care Billing And Insurance Coordinator Name Role Phone Bc Hunter MD Primary Care Prov ider Reason for Visit * Reason Onset Date Comments Nurse Triage 05/26/2023 Encounter Details Date Type Department Care Team (Late st Contact Info) Description 05/26/2023 Telephone [facility] MEDICINE [address] [place] [address] Bc Hunter MD [address] [place], [place] [phone] Nurse Triage Social History Tobacco Use Types [...] AM EST Triage call Pt is in senior care, Krystin Sepulveda taking call and consent is signed by Pt for staff to speak . Pt has had some changes. Pt decided to stop all psyche medications and MD Ward Myers,discontinued them. (Stop date unknown) Pt has since that time decreased eating, appetite is poor. Pt weight yesterday at cpht apt is 173lbs. Pt was said to be around 202lbs regularly. Pt clothes are fitting very loosely now. Pt also wanted to stop coumadin but, cpht instructed that wouldn't be good to do [...] acuity questions The caller accepted this outcome [phone] documented in this encounter Plan of Treatment Not on file documented as of this encounter Visit Diagnoses Not on filedocumented in this encounter Additional Health Concerns Assessment Noted Time PHQ-9 Depression Total Score: 0 07/11/19 23 11:26 AM EDT documented as of this encounter Care Teams Billing And Insurance Coordinator Relationship Specialty Start Date End Date Bc Hunter MD [address] [place] [address] PCP - General Internal Medicine 01/03/19 documented as of this encounter
--- OUTSIDE RECORDS SUMMARY | 2024-05-10 15:09 | XMS_ITS | Encounter Summary ---
Author Organization [facility] Address [address] [place] [address] Phone Care Team Providers Care Notching Press Operator Name Role Phone Bc Yates Primary Care Provider [phone]- [phone] Reason for Visit * Reason Comments Med Refill Encounter Details Date Type Department Care Team (Late st Contact Info) Description 01/13/2022 Refill [facility] [address] [place] [address] Trever Lopez MD [address] [facility] [address] [place] [address] Social History Tobacco Use Types [...] Visit [facility] [address] [place] [address] Trever Lopez MD [address] [facility] [address] [place] [address] documented as of this encounter Visit Diagnoses Not on filedocumented in this encounter Care Teams Notching Press Operator Relationship Specialty Start Date End Date Bc Yates PCP - General Internal Medicine 10/05/22 documented as of this encounter
--- OUTSIDE RECORDS SUMMARY | 2024-05-10 15:09 | XMS_ITS | Encounter Summary ---
Author Organization [employer] Address 75 [facility] 7 [place] [address] Care Team Providers Care Photographic Printer Name Role Phone Bc Hunter MD Primary Care Prov ider Reason for Visit * Reason Onset Date Comments Med Refill 05/12/2022 Encounter Details Date Type Department Care Team (Late st Contact Info) Description 05/12/[address] [facility] MEDICINE [address] [place] [address] Bc Hunter MD 505 [place], [place] [phone] Med Refill Social History Tobacco Use Types [...] on filedocumented in this encounter Care Teams Photographic Printer Relationship Specialty Start Date End Date Bc Hunter MD [address] [place] [address] PCP - General Internal Medicine 01/03/19 documented as of this encounter
--- OUTSIDE RECORDS SUMMARY | 2024-05-10 15:09 | XMS_ITS | Encounter Summary ---
Author Organization [employer] Address 75 [facility] 7 [place] [address] Care Team Providers Care Clinical Genetics Laboratory Chief Name Role Phone Bc Hunter MD Primary Care Prov ider Reason for Visit * Reason Onset Date Comments Med Refill 05/15/2022 Encounter Details Date Type Department Care Team ([facility] st Contact Info) Description 05/15/2022 Telephone [facility] CHC MED & PEDS 505 [place] [address] Bc Hunter MD 505 [place] [address] Med Refill Social History Tobacco Use Types [...] a max daily dose. Call placed to [facility] Coumadin clinic. Per Della, pt is currently [...] 11:54 AM EST Tc from Amy with [facility] requesting some kinds of specific directions for warfarin (Coumadin) 2 MG tablet If any question please contact amy at [phone] documented in this encounter Plan of Treatment Not on file documented as of this encounter Visit Diagnoses Not on filedocumented in this encounter Care Teams Clinical Genetics Laboratory Chief Relationship Specialty Start Date End Date Bc Hunter MD [address] [place] [address] PCP - General Internal Medicine 01/03/19 documented as of this encounter
--- OUTSIDE RECORDS SUMMARY | 2024-05-10 15:09 | XMS_ITS | Encounter Summary ---
Author Organization [employer] Address [address] [facility] [address] 7 [place] [address] Care Team Providers Care Car Repairer Helper Name Role Phone Bc Hunter MD Primary Care Prov ider Reason for Visit * Reason Onset Date Comments Lung screening 04/27/2024 Encounter Details Date Type Department Care Team ([facility] st Contact Info) Description 04/27/2024 Telephone [facility] CHC MED & PEDS 505 [place] [address] Bc Hunter MD 505 [place] [address] Lung screening Social History Tobacco Use Types Packs/Day Years [...] encounter Miscellaneous Notes * Telephone Encounter - Dipti Beaver [place] - 04/27/2024 11:57 AM EST Called [facility] to book CT of the lung for patient and was told pt missed an appt on 04/18/24. [facility] r/s appt for 05/03/24 at 3:45 pm. Called half-way and spoke to Jeet the enterprise manager and gave him appt details for patient's lung screening appt- 05/03/24 at 3:45 pm. Jeet stated he is not able to bring pt to appt at that time due to his staff's shift ending at 4pm. Let Jeet know is important for pt to repeat CTof the lung, and gave [facility] phone number to call and schedule appt when they are available to bring pt to the appt. Jeet stated he will call and schedule appt. documented in this encounter Plan of Treatment Not on file documented as of this encounter Visit Diagnoses Not on filedocumented in this encounter Additional Health Concerns Assessment Noted Time PHQ-9 Depression Total Score: 0 09/30/19 24 11:02 AM EDT documented as of this encounter Care Teams Car Repairer Helper Relationship Specialty Start Date End Date Bc Hunter MD [address] [place] [address] [place] [address] PCP - General Internal Medicine 01/03/19 documented as of this encounter
--- OUTSIDE RECORDS SUMMARY | 2024-05-10 15:09 | XMS_ITS | Encounter Summary ---
Author Organization [employer] Address [address] [facility] [address] 7 [place] [address] Care Team Providers Care Steam Pipe Fitter Name Role Phone Bc Hunter MD Primary Care Prov ider Encounter Details Date Type Department Care Team (Late st Contact Info) Description 05/18/2022 Orders Only [facility] CHC MED & PEDS 505 [place], [place] [phone] Bc Hunter MD 505 [place], [place] [phone] S/P aortic valve replacement Social History Tobacco [...] means documented in this encounter Care Teams Steam Pipe Fitter Relationship Specialty Start Date End Date Bc Hunter MD 505 [place], [place] [phone] PCP - General Internal Medicine 01/03/19 documented as of this encounter
--- OUTSIDE RECORDS SUMMARY | 2024-05-10 15:09 | XMS_ITS | Encounter Summary ---
Author Organization [employer] Address 75 [facility] 7 [place] [address] Care Team Providers Care Invoice Clerk Name Role Phone Bc Hunter MD Primary Care Prov ider Reason for Visit * Reason Onset Date Comments other 06/04/2022 Encounter Details Date Type Department Care Team ([facility] st Contact Info) Description 06/04/2022 Telephone [facility] MEDICINE 230 [place] [address] Bc Hunter MD 505 [place], [place] [phone] other Social History Tobacco Use Types Packs/Day [...] - 06/04/2022 3:32 PM EDT Tc from [facility] Kayla requesting PRE-OP notes to be faxed to [phone],Foreign Collection Clerk advised PRE-OP appt was cancelled 06/01/22 and is requesting a call back for clarification. Please contact [phone] ext [phone] Please see above message. Thanks * Telephone Encounter - Gena Sampson - 06/04/2022 12:40 PM EDT Tc from [facility] Kayla requesting PRE-OP notes to be faxed to [phone],Foreign Collection Clerk advised PRE-OP appt was cancelled 06/01/22 and is requesting a call back for clarification. Please contact [phone] ext [phone] documented in this encounter Plan of Treatment Not on file documented as of this encounter Visit Diagnoses Not on filedocumented in this encounter Care Teams Invoice Clerk Relationship Specialty Start Date End Date Bc Hunter MD [address] [place] [address] PCP - General Internal Medicine 01/03/19 documented as of this encounter
--- OUTSIDE RECORDS SUMMARY | 2024-05-10 15:09 | XMS_ITS | Encounter Summary ---
Author Organization [employer] Address [address] [facility] [address] 7t [place] [address] Care Team Providers Care Film Washer Name Role Phone Bc Hunter MD Primary Care Prov ider Encounter Details Date Type Department Care Team (Latest Contact Info) Description 04/26/2024 Travel Social History Tobacco Use Types Packs/Day [...] documented as of this encounter Care Teams Film Washer Relationship Specialty Start Date End Date Bc Hunter MD [address] [place] [address] PCP - General Internal Medicine 01/03/19 documented as of this encounter
--- OUTSIDE RECORDS SUMMARY | 2024-05-10 15:09 | XMS_ITS | Encounter Summary ---
Author Organization [employer] Address [address] [facility] [address] 7t [place] [address] Care Team Providers Care Poultry Farmer Meat Name Role Phone Bc Hunter MD Primary Care Prov ider Encounter Details Date Type Department Care Team (Late st Contact Info) Description 09/20/2023 Orders Only [facility] CHC MED & PEDS 505 [place], [place] [phone] Bc Hunter MD 505 [place] [address] Social History Tobacco Use Types Packs/Day Years [...] documented as of this encounter Care Teams Poultry Farmer Meat Relationship Specialty Start Date End Date Bc Hunter MD [address] [place] [address] PCP - General Internal Medicine 01/03/19 documented as of this encounter
--- OUTSIDE RECORDS SUMMARY | 2024-05-10 15:09 | XMS_ITS | Clinical Summary ---
Author Organization [facility] [place] Address [address] [place] [address] [place] [address] Phone Care Team Providers Care Airflight Attendants Supervisor Name Role Phone YatesBc Primary Care Provider Allergies No known active allergies Medications D3-50 1.25 MG (58461 UT) capsule TAKE 1 CAPSULE BY MOUTH [...] Visit [facility] [address] [place] [address] Trever Lopez MD [address] [facility] [place] [phone] Health Maintenance Due Date Last Done Comments Colorectal Cancer Screening: Annual FOBT 2001 Colorectal Cancer Screening: Colonoscopy 2001 Colorectal Cancer Screening: Sigmoidoscopy 2001 Pneumococcal Vaccine: 65+ Ye ars (2 of 2 - PCV) 11/23/2015 11/22/2014 Influenza Vaccine (#1) 2023 Hepatitis B Vaccine Aged Out No longe r eligible based on patient's age to complete this topic Insurance MEDICARE MEDICAID [place] Care Teams Airflight Attendants Supervisor Relationship Specialty Start Date End Date Bc Yates: [id number] PCP - General Internal Medicine 10/05/22
--- OUTSIDE RECORDS SUMMARY | 2024-05-10 15:09 | XMS_ITS | Encounter Summary ---
Author Organization [employer] Address [address] [facility] [facility] [address] 7t [place] [address] Care Team Providers Care Marketing Communications Specialist Name Role Phone Bc Hunter MD [...] documented as of this encounter Care Teams Marketing Communications Specialist Relationship Specialty Start Date End Date Bc Hunter MD [address] [place] [address] PCP - General Internal Medicine 01/03/19 documented as of this encounter
--- OUTSIDE RECORDS SUMMARY | 2024-05-10 15:09 | XMS_ITS | Encounter Summary ---
Author Organization [facility] Address [address] [place] [address] Phone Care Team Providers Care Security Operations Center Analyst Name Role Phone Bc Yates Primary Care Provider +1- [phone] Encounter Details Date Type Department Care Team (Late st Contact Info) Description 05/26/2021 Documentation Only [facility] [address] [place] [address] Trever Lopez MD [address] [place] [address] [place] [address] Social History Tobacco Use Types [...] Visit [facility] [address] [place] [address] Trever Lopez MD [address] [place] [address] [place] [address] documented as of this encounter Visit Diagnoses Not on filedocumented in this encounter Care Teams Security Operations Center Analyst Relationship Specialty Start Date End Date Bc Yates PCP - General Internal Medicine 10/05/22 documented as of this encounter
--- OUTSIDE RECORDS SUMMARY | 2024-05-10 15:09 | XMS_ITS | Encounter Summary ---
Author Organization [employer] Address [address] [facility] [address] 7t [place] [address] Care Team Providers Care Environmental Protection Officer Name Role Phone Bc Hunter MD [...] EST) Protime 21.6(H) 11.1 - 13.5 sec [facility] 04/24/2024 11:3 1 AM EST 04/24/2024 11:41 AM EST us Generic External Data Provider LAB BLOOD ORDERAB LES Final Result Performing Organization Address City/State/[facility] Co de Phone Number [facility] [address] [place] [phone] * (ABNORMAL) ~PT, ~INR - ANTI COAG CLINIC (04/24/2024 11:31 AM EST) Prothrombin Time INR 1.8(H) 0.9 - 1.1 [facility] Comment:METER #: [id number] TERNATIONAL NORMALIZED RATIO (INR) REFERENCE RANGES Reference [...] Provider LAB BLOOD ORDERAB LES Final Result [facility] [address] [place] [address] [phone] documented in this encounter Visit Diagnoses Not on filedocumented in this encounter Additional Health Concerns Assessment Noted Time PHQ-9 Depression Total Score: 0 09/30/19 24 11:02 AM EDT documented as of this encounter Care Teams Environmental Protection Officer Relationship Specialty Start Date End Date Bc Hunter MD [address] [place] [address] PCP - General Internal Medicine 01/03/19 documented as of this encounter
--- OUTSIDE RECORDS SUMMARY | 2024-05-10 15:09 | XMS_ITS | Encounter Summary ---
Author Organization [employer] Address [address] [facility] 7 [place] [address] Care Team Providers Care Harness Brusher Name Role Phone Bc Hunter MD Primary Care Prov ider Reason for Visit * Reason Onset Date Comments Referral 12/06/2023 Encounter Details Date Type Department Care Team ([facility] st Contact Info) Description 12/06/2023 Telephone [facility] MEDICINE 230 [place] [address] Bc Hunter MD 505 [place], [place] [phone] Referral Social History Tobacco Use Types Packs/Day [...] 12/06/2023 9:45 AM EDT Tc from patients long-term calling to report the provider for podiatry has and would need to be referred to another location would like to be seen by Sarkis in the [place] location ifpossible documented in this encounter Plan of Treatment Not on file documented as of this encounter Visit Diagnoses Not on filedocumented in this encounter Additional Health Concerns Assessment Noted Time PHQ-9 Depression Total Score: 0 09/30/19 24 11:02 AM EDT documented as of this encounter Care Teams Harness Brusher Relationship Specialty Start Date End Date Bc Hunter MD [address] [place] [address] PCP - General Internal Medicine 01/03/19 documented as of this encounter
--- OUTSIDE RECORDS SUMMARY | 2024-05-10 15:10 | XMS_ITS | Encounter Summary ---
Author Organization [employer] Address [address] [place] [address] 7 [place] [address] Care Team Providers Care Text Transcriber Name Role Phone Bc Hunter MD Primary Care Prov ider Reason for Visit * Reason Onset Date Comments Med Refill 09/21/2022 Encounter Details Date Type Department Care Team (Late st Contact Info) Description 09/21/2022 Telephone [facility] CHC MED & PEDS 505 [place] [address] Bc Hunter MD 505 [place] [address] Med Refill Social History Tobacco Use Types [...] 09/23/2022 8:28 AM EDT Pt managed by [facility] coumadin clinic. Last INR of 3.1 noted 09/17/22. Will forward request for Rx to covering provider to review. * Telephone Encounter - Ping Nettles - 09/21/2022 10:39 AM EDT Tc from pt requesting med refill on Warfarin 1 mg tablet [id number] [place], [place] - [address] [place] [address] Please sent to documented in this encounter Plan of Treatment Not on file documented as of this encounter Visit Diagnoses Diagnosis History of Coumadin therapy- Primary S/P aortic valve replacement Heart valve replaced by other means documented in this encounter Additional Health Concerns Assessment Noted Time PHQ-9 Depression Total Score: 0 07/11/19 23 11:26 AM EDT documented as of this encounter Care Teams Text Transcriber Relationship Specialty Start Date End Date Bc Hunter MD [address] [place] [address] PCP - General Internal Medicine 01/03/19 documented as of this encounter
--- OUTSIDE RECORDS SUMMARY | 2024-05-10 15:10 | XMS_ITS | Encounter Summary ---
Author Organization [employer] Address [address] [facility] [address] 7 [place] [address] Care Team Providers Care Manager Installation Name Role Phone Bc Hunter MD Primary Care Prov ider Reason for Visit * Reason Comments Med Refill Encounter Details Date Type Department Care Team ([facility] st Contact Info) Description 05/18/2023 Refill [facility] CHC MED & PEDS 505 [place] [address] Bc Hunter MD 505 [place] [address] Social History Tobacco Use Types Packs/Day Years [...] documented as of this encounter Care Teams Manager Installation Relationship Specialty Start Date End Date Bc Hunter MD [address] [place] [address] PCP - General Internal Medicine 01/03/19 documented as of this encounter
--- OUTSIDE RECORDS SUMMARY | 2024-05-10 15:10 | XMS_ITS | Encounter Summary ---
Author Organization [employer] Address [address] [place] [address] 7 [place] [address] Care Team Providers Care Price Accuracy Supervisor Name Role Phone Bc Hunter MD Primary Care Prov ider Reason for Visit * Reason Comments Med Refill Encounter Details Date Type Department Care Team (Late st Contact Info) Description 10/25/2022 Refill [facility] CH[facility] MED & PEDS 505 [place] [address] Bc Hunter MD 505 [place] [address] Social History Tobacco Use Types Packs/Day Years [...] documented as of this encounter Care Teams Price Accuracy Supervisor Relationship Specialty Start Date End Date Bc Hunter MD 505 [place], [place] [phone] PCP - General Internal Medicine 01/03/19 documented as of this encounter
--- OUTSIDE RECORDS SUMMARY | 2024-05-10 15:10 | XMS_ITS | Encounter Summary ---
Author Organization [employer] Address [address] [facility] [address] 7t [place] [address] Care Team Providers Care Instructional Assistant Name Role Phone Bc Hunter MD [...] EST) Protime 21.4(H) 11.1 - 13.5 sec [facility] 04/17/2024 11:4 3 AM EST 04/17/2024 11:45 AM EST us Generic External Data Provider LAB BLOOD ORDERAB LES Final Result Performing Organization Address City/State/[facility] Co de Phone Number [facility] [address] [place] [phone] * (ABNORMAL) ~PT, ~INR - ANTI COAG CLINIC (04/17/2024 11:43 AM EST) Prothrombin Time INR 1.8(H) 0.9 - 1.1 [facility] Comment:METER #: [id number] TERNATIONAL NORMALIZED RATIO (INR) REFERENCE RANGES Reference [...] Provider LAB BLOOD ORDERAB LES Final Result [facility] [address] [place] [address] [phone] documented in this encounter Visit Diagnoses Not on filedocumented in this encounter Additional Health Concerns Assessment Noted Time PHQ-9 Depression Total Score: 0 09/30/19 24 11:02 AM EDT documented as of this encounter Care Teams Instructional Assistant Relationship Specialty Start Date End Date Bc Hunter MD [address] [place] [address] PCP - General Internal Medicine 01/03/19 documented as of this encounter
--- OUTSIDE RECORDS SUMMARY | 2024-05-10 15:10 | XMS_ITS | Encounter Summary ---
Author Organization [employer] Address 75 [facility] 7 [place] [address] Care Team Providers Care Corporation Lawyer Name Role Phone Bc Hunter MD Primary Care Prov ider Reason for Visit * Reason Comments Med Refill Encounter Details Date Type Department Care Team ([facility] st Contact Info) Description 05/06/2024 Refill [facility] MEDICINE [address] [place] [address] Bc Hunter MD 505 [place], [place] [phone] Mixed hyperlipidemia Social History Tobacco Use Types [...] documented as of this encounter Care Teams Corporation Lawyer Relationship Specialty Start Date End Date Bc Hunter MD [address] [place] [address] PCP - General Internal Medicine 01/03/19 documented as of this encounter
--- OUTSIDE RECORDS SUMMARY | 2024-05-10 15:10 | XMS_ITS | Encounter Summary ---
Author Organization [employer] Address [address] [facility] [address] [place] [address] Care Team Providers Care Project Control Analyst Name Role Phone Bc Hunter MD Primary [...] EST) Protime 28.7(H) 11.1 - 13.5 sec [facility] 04/10/2024 11:1 2 AM EST 04/10/2024 11:14 AM EST us Generic External Data Provider LAB BLOOD ORDERAB LES Final Result Performing Organization Address City/State/[facility] Co de Phone Number [facility] [address] [place] [phone] * (ABNORMAL) ~PT, ~INR - ANTI COAG CLINIC (04/10/2024 11:12 AM EST) Prothrombin Time INR 2.4(H) 0.9 - 1.1 [facility] Comment:METER #: [id number] TERNATIONAL NORMALIZED RATIO (INR) REFERENCE RANGES Reference [...] Provider LAB BLOOD ORDERAB LES Final Result [facility] [address] [place] [phone] [phone] documented in this encounter Visit Diagnoses Not on filedocumented in this encounter Additional Health Concerns Assessment Noted Time PHQ-9 Depression Total Score: 0 09/30/19 24 11:02 AM EDT documented as of this encounter Care Teams Project Control Analyst Relationship Specialty Start Date End Date Bc Hunter MD [address] [place] [address] PCP - General Internal Medicine 01/03/19 documented as of this encounter
--- OUTSIDE RECORDS SUMMARY | 2024-05-10 15:10 | XMS_ITS | Clinical Summary ---
Author Organization [employer] Address [address] [employer] 7t [place] [address] Care Team Providers Care Director Medical Surgical Name Role Phone Bc Hunter MD Primary [...] DAY AT 6 AM 90 tablet 3 Active levothyroxine (Synthroid, Levoxyl) 25 MCG tablet TAKE 1 TABLET (25 MCG) BY MOUTH IN THE MORNING 90 tablet 3 Active Trelegy Ellipta 100-62.5-25 MCG/ACT aerosol powder Inhale 1 puff Once per day. 60 each 3 Active Multiple Vitamin (Daily-Stanley Multivitamin) tablet Take 1 tablet by mouth Once per day. TAKE 1 TABLET BY MOUTH EVERY DAY WITH FOOD 90 tablet 3 Active dicyclomine (Bentyl) 20 MG tabletIndications :Irritable bowel syndrome with diarrhea TAKE 1 TABLET BY MOUTH BEFORE BREAKFAST AND BEFORE EVENING MEAL. 180 tablet 1 Active pantoprazole (ProtoNix) 40 MG EC tabletIndications [...] DIRECTED BY COUMADIN CLINIC 180 tablet 1 024 Active magnesium oxide (Mag-Ox) 400 (240 Mg) MG tabletIndications :Mixed hyperlipidemia TAKE 1 TABLET BY MOUTH TWICE A DAY 180 tablet 1 025 Active magnesium oxide (Mag-Ox) 400 (240 Mg) MG tabletIndications :Mixed hyperlipidemia TAKE 1 TABLET BY MOUTH TWICE A DAY 180 tablet 1 024 2024 Discontinued Active Problems Problem Noted Date Diagnosed Date Nodule of left lung 04/26/2024 Assessment & Plan (04/26/2024 11:54 AM EST): Will order a follow up LDCT scan, supervisor whipped topping was told to contact pulmonology office Seborrheic dermatitis of scalp 01/26/2023 Assessment & Plan (07/20/2023 8:52 PM EDT): Followed by [facility] Derm clinic Refill of topical ketoconazole [...] valve replacement 04/28/2022 Overview (07/20/2023): Followed by [facility] Coumadin Clinic Assessment & Plan (07/20/2023 8:46 PM EDT): Cardiology consult scheduled 07/20/23 No reported hx of bleeding, no reported chest pain/shortness of breath Discussed with PCP and [facility] Coumadin Clinic (Lori FLETCHER). Plan to bridge pt from Eliquis to Coumadin. May DC Eliquis once Coumadin therapeutic Coumadin dosinmg on Wednesday and Wednesday 4mg all other days of the week Plan: [facility] Coagulation clinic to reach out to residential to schedule INR check and re-start on [...] Other schizophrenia 09/22/2011 Overview (07/20/2023): Living in Long Term Assessment & Plan (07/30/2023 12:17 AM EDT): [...] Encounters Date Type Department Care Team Description 05/06/2024 Refill [facility] [address] [place] [address] Bc Hunter MD Mixed hyperlipidemia 05/01/2024 Orders Only GENERIC EXTERNAL DATA DEPARTMENT Provider, Generic External Data 04/27/2024 Telephone [facility] [address] [place] [address] Bc Hunter MD Lung screening 04/26/2024 11:15 AM EST Office Visit [facility] [address] [place] [address] Bc Hunter MD Acquired hypothyroidism (Primary Dx); Other iron deficiency anemia; Nodule of left lung 04/26/2024 Travel 04/24/2024 Orders Only GENERIC EXTERNAL DATA DEPARTMENT Provider, Generic External Data 04/19/2024 Travel 04/17/2024 Orders Only GENERIC EXTERNAL DATA DEPARTMENT Provider, Generic External Data 04/10/2024 Orders Only GENERIC EXTERNAL DATA DEPARTMENT Provider, Generic External Data 04/05/2024 Telephone [facility] [address] [place] [address] Bc Hunter MD Anticoagulation 04/05/2024 Orders Only GENERIC EXTERNAL DATA DEPARTMENT Provider, Generic External Data 03/29/2024 Orders Only GENERIC EXTERNAL DATA DEPARTMENT Provider, Generic External Data 03/19/2024 Refill [facility] [address] [place] [address] Oralia Mazariegos FNP S/P aortic valve replacement 03/19/2024 Refill [facility] [address] [place] [address] Zafar Richard MD Mixed hyperlipidemia 03/01/2024 Orders Only GENERIC EXTERNAL DATA DEPARTMENT Provider, Generic External Data 02/28/2024 Refill [facility] [address] [place] [address] Bc Hunter MD from Last 3 Months [...] Mass Index 26.14 04/26/2024 11:30 AM EST Plan of Treatment Health Maintenance Due Date Last Done Comments CT Colonography 1952 Colonoscopy 1952 Colorectal Cancer Screening 1950 FIT DNA/Cologuard 1952 FIT 1952 FOBT 1950 Sigmoidoscopy 1950 RSV Patients and Patients Aged 60 years [...] 07/18/2024 07/19/2023 Depression Screening 09/29/2024 09/30/2023, 09/30/19 Tobacco Screening 09/29/2024 09/30/2023 Alcohol/Substance Use Screening 04/26/2025 04/26/2024 Lipid Panel 05/06/2028 05/06/2023, 07/10/2022 DTaP/Tdap/Td Vaccines [...] COAG CLINIC Routine 05/01/2024 11:12 AM EST PROTHROMBIN TIME WHOLE BLD POC Routine 04/24/2024 [...] COAG CLINIC Routine 03/01/2024 11:22 AM EST LIPID PANEL, STANDARD Routine 05/06/2023 11:48 AM EST Hyperlipemia, mixed HEPATITIS C AB W/REFL TO HCV RNA, QN, PCR Routine 07/10/2022 11:31 AM EDT S/P aortic valve replacement Pre-op evaluation from Last 3 Months or Most Recently Relevant to Health Maintenance Results * (ABNORMAL) PROTHROMBIN TIME WHOLE BLD POC (05/01/2024 11:12 AM EST) Only the most recent of7 resultswithin the time period is included. Protime 51.9(H) 11.1 - 13.5 sec [facility] 05/01/2024 11:1 2 AM EST 05/01/2024 11:14 AM EST us Generic External Data Provider LAB BLOOD ORDERAB LES Final Result Performing Organization Address City/State/[facility] Co de Phone Number [facility] [address] [place] [phone] * (ABNORMAL) ~PT, ~INR - ANTI COAG CLINIC (05/01/2024 11:12 AM EST) Only the most recent of7 resultswithin the time period is included. Prothrombin Time INR 4.3(H) 0.9 - 1.1 [facility] Comment:METER #: [id number] TERNATIONAL NORMALIZED RATIO (INR) REFERENCE RANGES Reference [...] ORDERAB LES Final Result Performing Organization Address [facility] Co de Phone Number [facility] [address] [place] [phone] * Lipid Panel, Standard (05/06/2023 11:48 AM EST) Triglycerides 61 <150 mg/dL [facility] Comment:Desirable Triglyceri de: less than 150 mg/dLBorderline High Triglyceride 150-199 mg/dLHigh Triglyceride: 200-499 mg/dLVery High Triglyceride: greater than or equal to 5OO mg/dL Cholesterol 166 <200 mg/dL [facility] Comment:Desirable Cholestero l: less than 200 mg/dLBorderline High Cholesterol: 200-239 mg/dLHigh Cholesterol: greater than 239 mg/dL LDL Cholesterol Calculated 94 <100 mg/dL [facility] Comment:Desirable LDL: less than 100 mg/dLNear Optimal/Above Optimal LDL: 110- 129 mg/dLBorderline High LDL: 130-159 mg/dLHigh LDL: 160-189 mg/dLVery High LDL: greater than or equal to 190 mg/dL HDL Cholesterol 60 >40 mg/dL [facility] Comment:Desirable HDL: great er than 40 mg/dL Note: This HDL assay may give artificially low results in patients with liver disease. Blood Venous blood specimen / Unknown 05/06/2023 11:48 AM EST 05/06/2023 2:09 PM EST us Bc Rascon MD LAB BLOOD ORDERABL ES Final Result Performing Organization Address [facility]/ZIP Co de Phone Number [facility] [address] [place] [phone] * Hepatitis C Antibody with Reflex to HCV, RNA, Quantitative, Real-Time PCR (07/10/2022 11:31 AM EDT) Hepatitis C Antibody NON-REACT DEZ NON-REACT DEZ [facility] [place] [employer] Diagn[facility] Index 0.09 <1.00 [facility] Comment: HCV antibody was non-reactive. There is no laboratory evidence of HCV infection. In most cases, no further action is required. However, if recent HCV exposure is suspected, a test for HCV RNA (test code 16117) is suggested. For additional information please refer to http://education.[employer]/faq/YGF75n1 (This link is being provided for informational/ educational purposes only.) Blood Venous blood specimen / Unknown 07/10/2022 11:31 AM EDT 07/10/2022 11:32 AM EDT Narrative [facility] - 07/11/2022 5:06 AM EDT FASTING:NO FASTING: NO Bc Rascon MD LAB BLOOD ORDERABL ES Final Result [facility] [address], [place] [address] [facility] [place] [employer] [address] [place] [address] from Last 3 Months or Most Recently Relevant to Health Maintenance Insurance [place] [address] [place] [phone] [facility] Care Teams Director Medical Surgical Relationship Specialty Start Date End Date YatesBc Laws MD [address] [place] [phone] PCP - General Internal Medicine 01/03/19
--- OUTSIDE RECORDS SUMMARY | 2024-05-10 15:10 | XMS_ITS | Encounter Summary ---
Author Organization [facility] Address [address] 7[address] [place] [address] Care Team Providers Care Corsets Salesperson Name Role Phone Bc Hunter MD Primary Care Prov ider Encounter Details Date Type Department Care Team (Late st Contact Info) Description 02/24/2022 Telephone [facility] [address] [place], [place] [phone] Bc Hunter MD [address] [place], [place] [phone] Social History Tobacco Use Types Packs/Day Years [...] on filedocumented in this encounter Care Teams Corsets Salesperson Relationship Specialty Start Date End Date Bc Hunter MD [address] [place], [place] [phone] PCP - General Internal Medicine 01/03/19 documented as of this encounter
== END 2024-05-10 15:26 | disposition home or self-care (01) ==
PROVIDERS: PCP Internal Medicine; Visit Provider Internal Medicine Pulmonary Disease
DX: J44.9 Chronic obstructive pulmonary disease, unspecified (principal); R91.1 Solitary pulmonary nodule
CPT/HCPCS: 99214

== ENCOUNTER → 2024-05-10 15:03 | Outpatient (BNVA) | payer MEDICARE, MEDICAID, SELFPAY | PROVIDERS: PCP Internal Medicine; Visit Provider Internal Medicine Pulmonary Disease | DX: J44.9 Chronic obstructive pulmonary disease, unspecified (principal); R91.1 Solitary pulmonary nodule | CPT/HCPCS: 99212 ==

== ENCOUNTER 2024-05-12 10:33 | Outpatient (AMB) | payer MEDICARE, MEDICAID, SELFPAY ==
--- NOTE | 2024-05-12 11:02 | MHC.OFFVISCO ---
Intake Intake Visit Reasons: Anticoagulation Allergies No Known Allergies Allergy (Mild, Verified 05/12/24 10:36) NOT APPLICABLE Medication List - Last Reconciled 05/12/24 by Raissa Hull RN albuterol sulfate 90 mcg/actuation (Ventolin HFA) 1 puff inhalation RQ4H PRN atorvastatin 40 mg PO BEDTIME benztropine 1 mg PO BID cholecalciferol (vitamin D3) (Vitamin D3) 25 mcg PO QAM dicyclomine 20 mg PO BID divalproex ER 1,000 mg (2 x 500 mg) PO BEDTIME ferrous sulfate 324 mg PO DAILY fluphenazine decanoate 25 mg IM Q28D fluphenazine decanoate 25 mg IM Q4W kzfkmchobyj-yomjohnms-wrnbuvvc 100-62.5-25 mcg (Trelegy Ellipta) 1 inh inhalation RDAILY levothyroxine 25 mcg PO DAILY@0600 loratadine 10 mg PO DAILY magnesium oxide 400 mg PO BIDPC multivitamin with folic acid 400 mcg (Daily-Stanley (with folic acid)) 1 tab PO DAILY mupirocin 2% 1 appl See Protocol topical BID pantoprazole 40 mg PO BID phenazopyridine 200 mg PO TID PRN revefenacin (Yupelri) 175 mcg (3 mL) inhalation DAILY risperidone 1 mg PO BID tamsulosin 0.4 mg PO BEDTIME warfarin See Protocol 2 mg orally 4MG DAILY OR DIRECTED; 4MG DAILY OR DIRECTED Nursing Note INR: 2.6 in therapeutic range Medications and supplements reviewed- rispiradol increased - no afairn nteraction but how it affects him may Appetite and substance use fluccuates Denies any signs and symptoms of bleeding or bruising or clotting. 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 of instructions given with read back Anti-Coag Initial Assessment Social Hx Patient Tobacco Use Status: Refuse Tobacco use screen alcohol intake: never Coding Level of Care Code Est Patient Level 1 Diagnoses Current use of anticoagulant therapy Z79.01 Results AMB INR Fingerstick AMB INR Fingerstick 2.6 Last Edit by Raissa Hull RN on 05/12/24 10:49 manual entry Assessment & Plan Assessment & Plan (1) Current use of anticoagulant therapy: Code(s): Z79.01 - optical glass etcher (current) use of anticoagulants Category: Medical Medications: New risperidone (Risperdal) 2 mg PO BID Discontinued risperidone Discontinued Reason: Doctor's Order 1 mg PO BID 60 tabs 0RF
[2024-05-12 11:14] LABS: Prothrombin Time Whole Bld POC 31.8 sec (11.1-13.5); ~PT, ~INR - Anti Coag Clinic 2.6 (0.9-1.1)
--- OUTSIDE RECORDS SUMMARY | 2024-05-12 11:29 | XMS_ITS | Encounter Summary ---
Author Organization [employer] Address [address] [facility] 7 [place] [address] Care Team Providers Care Entry Level Business Analyst Name Role Phone Bc Hunter MD Primary Care Prov ider Encounter Details Date Type Department Care Team (Late st Contact Info) Description 07/16/2022 Telephone [facility]ED[facility] [address] [place], [place] [phone] Bc Hunter MD [address] [place] [address] Social History Tobacco Use Types Packs/Day Years [...] swelling. Right side. Please contact Lori @ [phone] if additional labs are requested by PCP [...] swelling. Right side. Please contact Lori @ [phone] if additional labs are requested by PCP [...] documented as of this encounter Care Teams Entry Level Business Analyst Relationship Specialty Start Date End Date Bc Hunter MD [address] [place] [phone] PCP - General Internal Medicine 01/03/19 documented as of this encounter
--- OUTSIDE RECORDS SUMMARY | 2024-05-12 11:29 | XMS_ITS | Encounter Summary ---
Author Organization [employer] Address [address] [facility] 7 [place] [address] Care Team Providers Care Aircraft Engine Cylinder Mechanic Name Role Phone Bc Hunter MD Primary Care Prov ider Reason for Visit * Reason Onset Date Comments Med Refill 05/15/2022 Encounter Details Date Type Department Care Team ([facility] st Contact Info) Description 05/15/2022 Telephone [facility]EDS [address] [place] [address] Bc Hunter MD [address] [place] [address] Med Refill Social History Tobacco Use Types [...] a max daily dose. Call placed to [facility] Coumadin clinic. Per Della, pt is currently [...] 11:54 AM EST Tc from Amy with [facility] requesting some kinds of specific directions for warfarin (Coumadin) 2 MG tablet If any question please contact amy at [phone] documented in this encounter Plan of Treatment Not on file documented as of this encounter Visit Diagnoses Not on filedocumented in this encounter Care Teams Aircraft Engine Cylinder Mechanic Relationship Specialty Start Date End Date Bc Hunter MD [address] [place] [address] PCP - General Internal Medicine 01/03/19 documented as of this encounter
--- OUTSIDE RECORDS SUMMARY | 2024-05-12 11:29 | XMS_ITS | Encounter Summary ---
Author Organization [employer] Address [address] 7[address] [place] [address] Care Team Providers Care Assembler Deck And Hull Name Role Phone Bc Hunter MD Primary [...] EST) Protime 21.6(H) 11.1 - 13.5 sec [facility] 04/24/2024 11:3 1 AM EST 04/24/2024 11:41 AM EST us Generic External Data Provider LAB BLOOD ORDERAB LES Final Result Performing Organization Address City/State/[facility] Co de Phone Number [facility] [address] [place] [phone] * (ABNORMAL) ~PT, ~INR - ANTI COAG CLINIC (04/24/2024 11:31 AM EST) Prothrombin Time INR 1.8(H) 0.9 - 1.1 [facility] Comment:METER #: [id number] TERNATIONAL NORMALIZED RATIO (INR) REFERENCE RANGES Reference [...] Provider LAB BLOOD ORDERAB LES Final Result [facility] [address] [place] [phone] documented in this encounter Visit Diagnoses Not on filedocumented in this encounter Additional Health Concerns Assessment Noted Time PHQ-9 Depression Total Score: 0 09/30/19 24 11:02 AM EDT documented as of this encounter Care Teams Assembler Deck And Hull Relationship Specialty Start Date End Date Bc Hunter MD [address] [place] [address] PCP - General Internal Medicine 01/03/19 documented as of this encounter
--- OUTSIDE RECORDS SUMMARY | 2024-05-12 11:29 | XMS_ITS | Encounter Summary ---
Author Organization [employer] Address [address] [address] 7[address] [place] [address] Care Team Providers Care Keycase Assembler Name Role Phone Bc Hunter MD Primary [...] documented as of this encounter Care Teams Keycase Assembler Relationship Specialty Start Date End Date Bc Hunter MD [address] [place] [address] PCP - General Internal Medicine 01/03/19 documented as of this encounter
--- OUTSIDE RECORDS SUMMARY | 2024-05-12 11:29 | XMS_ITS | Encounter Summary ---
Author Organization [employer] Address [address] [address] [address] 7t [place] [address] Care Team Providers Care Service Delivery Management Consultant Name Role Phone Bc Hunter MD Primary Care Prov ider Encounter Details Date Type Department Care Team (Late st Contact Info) Description 09/20/2023 Orders Only [facility] [address] [place], [place] [phone] Bc Hunter MD [address] [place] [address] Social History Tobacco Use Types Packs/Day Years [...] documented as of this encounter Care Teams Service Delivery Management Consultant Relationship Specialty Start Date End Date Bc Hunter MD [address] [place] [address] PCP - General Internal Medicine 01/03/19 documented as of this encounter
--- OUTSIDE RECORDS SUMMARY | 2024-05-12 11:29 | XMS_ITS | Encounter Summary ---
Author Organization [employer] Address [address] [facility] [address] 7 [place] [address] Care Team Providers Care Microfilming Document Preparer Name Role Phone Bc Hunter MD Primary Care Prov ider Reason for Visit * Reason Onset Date Comments Lung screening 04/27/2024 Encounter Details Date Type Department Care Team ([facility] st Contact Info) Description 04/27/2024 Telephone [facility] MED & PEDS [address] [place] [address] Bc Hunter MD [address] [place] [address] Lung screening Social History Tobacco Use Types [...] [place] - 04/27/2024 11:57 AM EST Called [facility] [place] of the lung for patient and was told pt missed an appt on 04/18/24. [facility] r/s appt for 05/03/24 at 3:45 pm. Called halfway and spoke to Jeet the sales team manager and gave him appt details for [...] documented as of this encounter Care Teams Microfilming Document Preparer Relationship Specialty Start Date End Date Bc Hunter MD [address] [place] [address] [place] [address] PCP - General Internal Medicine 01/03/19 documented as of this encounter
--- OUTSIDE RECORDS SUMMARY | 2024-05-12 11:29 | XMS_ITS | Encounter Summary ---
Author Organization [employer] Address [address] [facility] [address] 7[address] [place] [address] Care Team Providers Care Women'S Studies Lecturer Name Role Phone Bc Hunter MD Primary [...] EST) Protime 51.9(H) 11.1 - 13.5 sec [facility] 05/01/2024 11:1 2 AM EST 05/01/2024 11:14 AM EST us Generic External Data Provider LAB BLOOD ORDERAB LES Final Result Performing Organization Address City/State/[facility] Co de Phone Number [facility] [address] [place] [phone] * (ABNORMAL) ~PT, ~INR - ANTI COAG CLINIC (05/01/2024 11:12 AM EST) Prothrombin Time INR 4.3(H) 0.9 - 1.1 [facility] Comment:METER #: [id number] TERNATIONAL NORMALIZED RATIO (INR) REFERENCE RANGES Reference [...] Provider LAB BLOOD ORDERAB LES Final Result [facility] [address] [place] [phone] documented in this encounter Visit Diagnoses Not on filedocumented in this encounter Additional Health Concerns Assessment Noted Time PHQ-9 Depression Total Score: 0 09/30/19 24 11:02 AM EDT documented as of this encounter Care Teams Women'S Studies Lecturer Relationship Specialty Start Date End Date Bc Hunter MD [address] [place] [address] PCP - General Internal Medicine 01/03/19 documented as of this encounter
--- OUTSIDE RECORDS SUMMARY | 2024-05-12 11:29 | XMS_ITS | Encounter Summary ---
Author Organization [facility] Address [address] [place] [address] Phone Care Team Providers Care Community Youth Secretary Name Role Phone Bc Yates Primary Care Provider [phone] Encounter Details Date Type Department Care Team (Late st Contact Info) Description 05/26/2021 Documentation Only [facility] [address] [place] [address] Trever Lopez MD [address] [place] [address] [place] [address] Social History Tobacco Use Types [...] [facility] [address] [place] [address] Trever Lopez MD [address] [place] [address] [place] [address] documented as of this encounter Visit Diagnoses Not on filedocumented in this encounter Care Teams Community Youth Secretary Relationship Specialty Start Date End Date Bc Yates PCP - General Internal Medicine 10/05/22 documented as of this encounter
--- OUTSIDE RECORDS SUMMARY | 2024-05-12 11:29 | XMS_ITS | Encounter Summary ---
Author Organization [employer] Address [address] [facility] [address] 7 [place] [address] Care Team Providers Care Petal Cutter Name Role Phone Bc Hunter MD Primary Care Prov ider Encounter Details Date Type Department Care Team (Late st Contact Info) Description 05/18/2022 Orders Only [facility] MED & PEDS [address] [place], [place] [phone] Bc Hnuter MD [address] [place], [place] [phone] S/P aortic valve replacement Social History Tobacco [...] means documented in this encounter Care Teams Petal Cutter Relationship Specialty Start Date End Date Bc Hunter MD [address] [place], [place] [phone] PCP - General Internal Medicine 01/03/19 documented as of this encounter
--- OUTSIDE RECORDS SUMMARY | 2024-05-12 11:29 | XMS_ITS | Encounter Summary ---
Author Organization [employer] Address [address] [facility] 7 [place] [address] Care Team Providers Care Zmt Operator Name Role Phone Bc Hunter MD Primary Care Prov ider Reason for Visit * Reason Onset Date Comments Nurse Triage 05/26/2023 Encounter Details Date Type Department Care Team (Late st Contact Info) Description 05/26/2023 Telephone [facility] [address] [place] [address] Bc Hunter MD [address] [place], [place] [phone] Nurse Triage Social History Tobacco Use Types [...] AM EST Triage call Pt is in intermediate, Krystin Sepulveda taking call and consent is signed by Pt for staff to speak . Pt has had some changes. Pt decided to stop all psyche medications and MD Ward Myers,discontinued them. (Stop date unknown) Pt has since that time decreased eating, appetite is poor. Pt weight yesterday at bolt maker apt is 173lbs. Pt was said to be around 202lbs regularly. Pt clothes are fitting very loosely now. Pt also wanted to stop coumadin but, bolt maker instructed that wouldn't be good to do [...] acuity questions The caller accepted this outcome [phone] documented in this encounter Plan of Treatment Not on file documented as of this encounter Visit Diagnoses Not on filedocumented in this encounter Additional Health Concerns Assessment Noted Time PHQ-9 Depression Total Score: 0 07/11/19 23 11:26 AM EDT documented as of this encounter Care Teams Zmt Operator Relationship Specialty Start Date End Date Bc Hunter MD [address] [place] [phone] PCP - General Internal Medicine 01/03/19 documented as of this encounter
--- OUTSIDE RECORDS SUMMARY | 2024-05-12 11:29 | XMS_ITS | Encounter Summary ---
Author Organization [employer] Address 75 [facility] 7 [place] [address] Care Team Providers Care Harness Builder Name Role Phone Bc Hunter MD Primary Care Prov ider Reason for Visit * Reason Onset Date Comments Med Refill 05/12/2022 Encounter Details Date Type Department Care Team (Late st Contact Info) Description 05/12/2022 Telephone [facility] MEDICINE 230 [place] [address] Bc Hunter MD 505 [place], [place] [phone] Med Refill Social History Tobacco Use Types [...] on filedocumented in this encounter Care Teams Harness Builder Relationship Specialty Start Date End Date Bc Hunter MD [address] [place] [phone] PCP - General Internal Medicine 01/03/19 documented as of this encounter
--- OUTSIDE RECORDS SUMMARY | 2024-05-12 11:29 | XMS_ITS | Encounter Summary ---
Author Organization [employer] Address 75 [facility] 7 [place] [address] Care Team Providers Care Fugitive Detective Name Role Phone Bc Hunter MD Primary Care Prov ider Reason for Visit * Reason Onset Date Comments Referral 12/06/2023 Encounter Details Date Type Department Care Team ([facility] st Contact Info) Description 12/06/2023 Telephone [facility] MEDICINE 230 [place] [address] Bc Hunter MD 505 [place], [place] [phone] Referral Social History Tobacco Use Types Packs/Day [...] to be seen by Sarkis in the [place] location ifpossible documented in this encounter Plan of Treatment Not on file documented as of this encounter Visit Diagnoses Not on filedocumented in this encounter Additional Health Concerns Assessment Noted Time PHQ-9 Depression Total Score: 0 09/30/19 24 11:02 AM EDT documented as of this encounter Care Teams Fugitive Detective Relationship Specialty Start Date End Date Bc Hunter MD [address] [place] [address] PCP - General Internal Medicine 01/03/19 documented as of this encounter
--- OUTSIDE RECORDS SUMMARY | 2024-05-12 11:29 | XMS_ITS | Encounter Summary ---
Author Organization [employer] Address [address] [facility] [address] 7t [place] [address] Care Team Providers Care Corporate Statistical Financial Analyst Name Role Phone Bc Hunter MD [...] documented as of this encounter Care Teams Corporate Statistical Financial Analyst Relationship Specialty Start Date End Date Bc Hunter MD [address] [place] [address] PCP - General Internal Medicine 01/03/19 documented as of this encounter
--- OUTSIDE RECORDS SUMMARY | 2024-05-12 11:29 | XMS_ITS | Encounter Summary ---
Author Organization [employer] Address [address] [facility] [address] 7t [place] [address] Care Team Providers Care Organ Grinder Name Role Phone Bc Hunter MD Primary Care Prov ider Reason for Visit * Reason Comments Med Change Request Encounter Details Date Type Department Care Team ([facility] Contact Info) Description 07/19/[address] [facility] CHC MED & PEDS 505 [place] [address] Oralia Mazariegos FNP 505 [place] [address] Social History Tobacco Use Types Packs/Day Years [...] documented as of this encounter Care Teams Organ Grinder Relationship Specialty Start Date End Date Bc Hunter MD [address] [place] [address] PCP - General Internal Medicine 01/03/19 documented as of this encounter
--- OUTSIDE RECORDS SUMMARY | 2024-05-12 11:29 | XMS_ITS | Encounter Summary ---
Author Organization [facility] Address [address] [place] [address] Phone Care Team Providers Care Plow And Boring Machine Tender Name Role Phone Bc Yates Primary Care Provider [phone] Reason for Visit * Reason Comments Med Refill Encounter Details Date Type Department Care Team (Late st Contact Info) Description 01/13/2022 Refill [facility] [address] [place] [address] Trever Lopez MD [address] [place] [address] Social History Tobacco Use Types [...] Visit [facility] [address] [place] [address] Trever Lopez MD [address] [place] [address] documented as of this encounter Visit Diagnoses Not on filedocumented in this encounter Care Teams Plow And Boring Machine Tender Relationship Specialty Start Date End Date Bc Yates PCP - General Internal Medicine 10/05/22 documented as of this encounter
--- OUTSIDE RECORDS SUMMARY | 2024-05-12 11:29 | XMS_ITS | Encounter Summary ---
Author Organization [employer] Address [address] [place] [address] 7 [place] [address] Care Team Providers Care Clothes Separator Name Role Phone Bc Hunter MD Primary Care Prov ider Reason for Referral * Imaging (Routine) - Authorized Specialty Diagnoses / Procedures Referred By Contac t Referred To Contact Radiology Diagnoses Nodule of left lung Procedures CT Chest w/o Contrast Bc Hunter MD [address] [place] [address] Phone: tel: fax: [address] Phone: tel: fax: Referral ID Status Reason Start Date Expiration Date V isits Requested Visits Authorized [id number] Authorized 04/26/2024 04/26/2025 1 1 Encounter Details Date Type Department Care Team (Latest Contact Info) Description 04/26/2024 11:15 AM EST Office Visit [facility] CHC MED & PEDS 505 [place], [place] [phone] Bc Hunter MD 505 [place], [place] [phone] Acquired hypothyroidism (Primary Dx); Other iron deficiency [...] Will order a follow up LDCT scan, division chief was told to contact pulmonology office Relevant Orders CT Chest w/o Contrast documented in this encounter Miscellaneous Notes * Assessment & Plan Note - Bc Rascon MD - 04/26/2024 11:54 AM ESTAssociated Problem(s): Nodule of left lung Will order a follow up LDCT scan, division chief was told to contact pulmonology office documented [...] documented as of this encounter Care Teams Clothes Separator Relationship Specialty Start Date End Date Bc Hunter MD [address] [place] [address] PCP - General Internal Medicine 01/03/19 documented as of this encounter
--- OUTSIDE RECORDS SUMMARY | 2024-05-12 11:29 | XMS_ITS | Clinical Summary ---
Author Organization [facility] [place], Address [address] [place] [address] [place] [address] Phone Care Team Providers Care Rn L And D Name Role Phone YatesBc Primary Care Provider Allergies No known active allergies Medications D3-50 1.25 MG (89470 UT) capsule TAKE 1 CAPSULE BY MOUTH [...] Visit [facility] [address] [place] [address] Trever Lopez MD [address] [facility] [place] [phone] Health Maintenance Due Date Last Done Comments Colorectal Cancer Screening: Annual FOBT 2001 Colorectal Cancer Screening: Colonoscopy 2001 Colorectal Cancer Screening: Sigmoidoscopy 2001 Pneumococcal Vaccine: 65+ Ye ars (2 of 2 - PCV) 11/23/2015 11/22/2014 Influenza Vaccine (#1) 2023 Hepatitis B Vaccine Aged Out No longe r eligible based on patient's age to complete this topic Insurance MEDICARE [place]ICAID [place] Care Teams Rn L And D Relationship Specialty Start Date End Date Bc Yates: [id number] PCP - General Internal Medicine 10/05/22
--- OUTSIDE RECORDS SUMMARY | 2024-05-12 11:30 | XMS_ITS | Encounter Summary ---
Author Organization [employer] Address [address] [facility] [address] 7t [place] [address] Care Team Providers Care Show Card Writer Name Role Phone Bc Hunter MD Primary [...] EST) Protime 21.4(H) 11.1 - 13.5 sec [facility] 04/17/2024 11:4 3 AM EST 04/17/2024 11:45 AM EST us Generic External Data Provider LAB BLOOD ORDERAB LES Final Result Performing Organization Address City/State/[facility] Co de Phone Number [facility] [address] [place] [phone] * (ABNORMAL) ~PT, ~INR - ANTI COAG CLINIC (04/17/2024 11:43 AM EST) Prothrombin Time INR 1.8(H) 0.9 - 1.1 [facility] Comment:METER #: [id number] TERNATIONAL NORMALIZED RATIO (INR) REFERENCE RANGES Reference [...] [facility] [address] [place] [phone] [phone] documented in this encounter Visit Diagnoses Not on filedocumented in this encounter Additional Health Concerns Assessment Noted Time PHQ-9 Depression Total Score: 0 09/30/19 24 11:02 AM EDT documented as of this encounter Care Teams Show Card Writer Relationship Specialty Start Date End Date Bc Hunter MD [address] [place] [address] PCP - General Internal Medicine 01/03/19 documented as of this encounter
--- OUTSIDE RECORDS SUMMARY | 2024-05-12 11:30 | XMS_ITS | Encounter Summary ---
Author Organization [employer] Address 75 [facility] 7 [place] [address] Care Team Providers Care Career Resource Specialist Name Role Phone Bc Hunter MD Primary Care Prov ider Reason for Visit * Reason Comments Med Refill Encounter Details Date Type Department Care Team ([facility] st Contact Info) Description 05/06/2024 Refill [facility] MEDICINE 230 [place] [address] Bc Hunter MD 505 [place], [place] [phone] Mixed hyperlipidemia Social History Tobacco Use Types [...] documented as of this encounter Care Teams Career Resource Specialist Relationship Specialty Start Date End Date Bc Hunter MD [address] [place] [phone] PCP - General Internal Medicine 01/03/19 documented as of this encounter
--- OUTSIDE RECORDS SUMMARY | 2024-05-12 11:30 | XMS_ITS | Encounter Summary ---
Author Organization [employer] Address 75 [facility] 7 [place] [address] Care Team Providers Care Bus Girl Name Role Phone Bc Hunter MD Primary Care Prov ider Reason for Visit * Reason Onset Date Comments other 06/04/2022 Encounter Details Date Type Department Care Team ([facility] st Contact Info) Description 06/04/2022 Telephone [facility] MEDICINE 230 [place] [address] Bc Hunter MD 505 [place], [place] [phone] other Social History Tobacco Use Types Packs/Day [...] - 06/04/2022 3:32 PM EDT [facility] requesting PRE-OP notes to be faxed to [phone],Fire Protection Specialist advised PRE-OP appt was cancelled 06/01/22 and is requesting a call back for clarification. Please contact [phone] ext [phone] Please see above message. Thanks * Telephone Encounter - Gena Sampson - 06/04/2022 12:40 PM EDT Tc from [facility] Kayla requesting PRE-OP notes to be faxed to [phone],Fire Protection Specialist advised PRE-OP appt was cancelled 06/01/22 and is requesting a call back for clarification. Please contact [phone] ext [phone] documented in this encounter Plan of Treatment Not on file documented as of this encounter Visit Diagnoses Not on filedocumented in this encounter Care Teams Bus Girl Relationship Specialty Start Date End Date Bc Hunter MD [address] [place] [address] PCP - General Internal Medicine 01/03/19 documented as of this encounter
--- OUTSIDE RECORDS SUMMARY | 2024-05-12 11:30 | XMS_ITS | Encounter Summary ---
Author Organization [employer] Address [address] [facility] [address] 7 [place] [address] Care Team Providers Care Cost Consultant Name Role Phone Bc Hunter MD Primary Care Prov ider Reason for Visit * Reason Comments Med Refill Encounter Details Date Type Department Care Team ([facility] st Contact Info) Description 05/18/2023 Refill [facility] CHC MED & PEDS 505 [place] [address] Bc Hunter MD 505 [place] [address] Social History Tobacco Use Types Packs/Day Years [...] documented as of this encounter Care Teams Cost Consultant Relationship Specialty Start Date End Date Bc Hunter MD [address] [place] [address] PCP - General Internal Medicine 01/03/19 documented as of this encounter
--- OUTSIDE RECORDS SUMMARY | 2024-05-12 11:30 | XMS_ITS | Clinical Summary ---
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 Plan to bridge pt from Eliquis to Coumadin. May DC Eliquis once Coumadin therapeutic Coumadin dosinmg on Wednesday and Wednesday 4mg all other days of the week Plan: [facility] Co[facility] clinic to reach out to long term to schedule INR check and re-start on [...] Other schizophrenia 09/22/2011 Overview (07/20/2023): Living in [facility] Assessment & Plan (07/30/2023 12:17 AM EDT): [...] Encounters Date Type Department Care Team Description 05/12/2024 Orders Only GENERIC EXTERNAL DATA DEPARTMENT Provider, Generic External Data 05/06/2024 Refill [facility] MEDICINE [address] [place] [address] Bc Hunter MD Mixed hyperlipidemia 05/01/2024 Orders Only GENERIC EXTERNAL DATA DEPARTMENT Provider, Generic External Data 04/27/2024 Telephone [facility] MED & PEDS 505 [place] [address] Bc Hunter MD Lung screening 04/26/2024 11:15 AM EST Office Visit [facility] MED & PEDS [address] [place] [address] Bc Hunter MD Acquired hypothyroidism (Primary Dx); Other iron deficiency anemia; Nodule of left lung 04/26/2024 Travel 04/24/2024 Orders Only GENERIC EXTERNAL DATA DEPARTMENT Provider, Generic External Data 04/19/2024 Travel 04/17/2024 Orders Only GENERIC EXTERNAL DATA DEPARTMENT Provider, Generic External Data 04/10/2024 Orders Only GENERIC EXTERNAL DATA DEPARTMENT Provider, Generic External Data 04/05/2024 Telephone [facility] MED & PEDS [address] [place] [address] Bc Hunter MD Anticoagulation 04/05/2024 Orders Only GENERIC EXTERNAL DATA DEPARTMENT Provider, Generic External Data 03/29/2024 Orders Only GENERIC EXTERNAL DATA DEPARTMENT Provider, Generic External Data 03/19/2024 Refill [facility] MED & PEDS [address] [place] [address] Oralia Mazariegos FNP S/P aortic valve replacement 03/19/2024 Refill [facility] MEDICINE [address] [place] [address] Zafar Richard MD Mixed hyperlipidemia 03/01/2024 Orders Only GENERIC EXTERNAL DATA DEPARTMENT Provider, Generic External Data 02/28/2024 Refill [facility] MEDICINE [address] [place] [address] Bc Hunter MD from Last 3 Months [...] 09/30/2023, 09/30/19 24 Tobacco Screening 09/29/2024 09/30/2023 Alcohol/Substance Use Screening [...] Comments PROTHROMBIN TIME WHOLE BLD POC Routine 05/12/2024 10:43 AM EST ~PT, ~INR - ANTI COAG CLINIC Routine 05/12/2024 10:43 AM EST PROTHROMBIN TIME WHOLE BLD POC Routine 05/01/2024 [...] * (ABNORMAL) PROTHROMBIN TIME WHOLE BLD POC (05/12/2024 10:43 AM EST) Only the most recent of8 resultswithin the time period is included. Protime 31.8(H) 11.1 - 13.5 sec [facility] 05/12/2024 10:4 3 AM EST 05/12/2024 11:14 AM EST us Generic External Data Provider LAB BLOOD ORDERAB LES Final Result [facility] [address] [place] [phone] * (ABNORMAL) ~PT, ~INR - ANTI COAG CLINIC (05/12/2024 10:43 AM EST) Only the most recent of8 resultswithin the time period is included. Prothrombin Time INR 2.6(H) 0.9 - 1.1 [facility] Comment:METER #: [id number] TERNATIONAL NORMALIZED RATIO (INR) REFERENCE RANGES Reference RangeFor patients not on anticoagulant therapy: 0.9 - 1.1INR ranges for oral anticoagulanttherapy:For prevention and treatment of venous thrombosis and pulmonary embolism: 2.0 - 3.0For acute myocardial infarction with aspirin therapy: 2.0 - 3.0For acute myocardial infarction without aspirin therapy: 3.0 - 4.0For patients with mechanical prosthetic heart valves: 2.5 - 3.5 05/12/2024 10:4 3 AM EST 05/12/2024 11:14 AM EST us Generic External Data Provider LAB BLOOD ORDERAB LES Final Result Performing Organization Address [facility]/State/ZIP Co de Phone Number [facility] [address] [place] [phone] * Lipid Panel, Standard (05/06/2023 11:48 AM EST) Triglycerides 61 <150 mg/dL [facility] Comment:Desirable Triglyceri de: less than 150 mg/dLBorderline High Triglyceride 150-199 mg/dLHigh Triglyceride: 200-499 mg/dLVery High Triglyceride: greater than or equal to 5OO mg/dL Cholesterol 166 <200 mg/dL [facility] Comment:Desirable Cholestero l: less than 200 mg/dLBorderline High Cholesterol: 200-239 mg/dLHigh Cholesterol: greater than 239 mg/dL LDL Cholesterol Calculated 94 <100 mg/dL [facility] Comment:Desirable LDL: less than 100 mg/dLNear Optimal/Above Optimal LDL: 110- 129 mg/dLBorderline High LDL: 130-159 mg/dLHigh LDL: 160-189 mg/dLVery High LDL: greater than or equal to 190 mg/dL HDL Cholesterol 60 >40 mg/dL [facility] Comment:Desirable HDL: great er than 40 mg/dL Note: This HDL assay may give artificially low results in patients with liver disease. Blood Venous blood specimen / Unknown 05/06/2023 11:48 AM EST 05/06/2023 2:09 PM EST us Bc Rascon MD LAB BLOOD ORDERABL ES Final Result [facility] [address] [place] [phone] * Hepatitis C Antibody with Reflex to HCV, RNA, Quantitative, Real-Time PCR (07/10/2022 11:31 AM EDT) Hepatitis C Antibody NON-REACT DEZ NON-REACT DEZ [employer] [place] [employer] Index 0.09 <1.00 [employer] [place] [employer] Comment: HCV antibody was non-reactive. There is no laboratory evidence of HCV infection. In most cases, no further action is required. However, if recent HCV exposure is suspected, a test for HCV RNA (test code 65827) is suggested. For additional information please refer to http://education.[employer]/faq/HJL71g0 (This link is being provided for informational/ educational purposes only.) Blood Venous blood specimen / Unknown 07/10/2022 11:31 AM EDT 07/10/2022 11:32 AM EDT Narrative [facility] - 07/11/2022 5:06 AM EDT FASTING:NO FASTING: NO Bc Rascon MD LAB BLOOD ORDERABL ES Final Result Performing Organization Address City/[facility] Co de Phone Number [facility] [address], [place] [address] [employer] [place] [employer] [address] [place] [address] from Last 3 Months or Most Recently Relevant to Health Maintenance Insurance MEDICARE [facility] ST[facility] Care Teams Bi Application Developer Relationship Specialty Start Date End Date Bc Hunter MD [address] [place] [phone] PCP - General Internal Medicine 01/03/19
--- OUTSIDE RECORDS SUMMARY | 2024-05-12 11:30 | XMS_ITS | Encounter Summary ---
Author Organization [employer] Address [address] [place] [address] 7 [place] [address] Care Team Providers Care Front Desk Lead Name Role Phone Bc Hunter MD Primary Care Prov ider Reason for Visit * Reason Onset Date Comments Med Refill 09/21/2022 Encounter Details Date Type Department Care Team (Late st Contact Info) Description 09/21/2022 Telephone [facility] CH[facility] MED & PEDS 505 [place] [address] Bc Hunter MD 505 [place] [address] Med Refill Social History Tobacco Use Types [...] 09/23/2022 8:28 AM EDT Pt managed by [facility] coumadin clinic. Last INR of 3.1 noted 09/17/22. Will forward request for Rx to covering provider to review. * Telephone Encounter - Ping Nettles - 09/21/2022 10:39 AM EDT Tc from pt requesting med refill on Warfarin 1 mg tablet [id number] [place], [place] - [address] [place] [address] Please sent to documented in this encounter Plan of Treatment Not on file documented as of this encounter Visit Diagnoses Diagnosis History of Coumadin therapy- Primary S/P aortic valve replacement Heart valve replaced by other means documented in this encounter Additional Health Concerns Assessment Noted Time PHQ-9 Depression Total Score: 0 07/11/19 23 11:26 AM EDT documented as of this encounter Care Teams Front Desk Lead Relationship Specialty Start Date End Date Bc Hunter MD [address] [place] [phone] PCP - General Internal Medicine 01/03/19 documented as of this encounter
--- OUTSIDE RECORDS SUMMARY | 2024-05-12 11:30 | XMS_ITS | Encounter Summary ---
Author Organization [employer] Address [address] [place] [address] 7 [place] [address] Care Team Providers Care Site Interpreter Name Role Phone Bc Hunter MD Primary Care Prov ider Reason for Visit * Reason Comments Med Refill Encounter Details Date Type Department Care Team (Late st Contact Info) Description 10/25/2022 Refill [facility] CHC MED & PEDS [address] [place] [address] Bc Hunter MD 505 [place] [address] Social History Tobacco Use Types Packs/Day Years [...] documented as of this encounter Care Teams Site Interpreter Relationship Specialty Start Date End Date Bc Hunter MD [address] [place], [place] [phone] PCP - General Internal Medicine 01/03/19 documented as of this encounter
--- OUTSIDE RECORDS SUMMARY | 2024-05-12 11:30 | XMS_ITS | Encounter Summary ---
Author Organization [employer] [facility] Address [address] [facility] [address] 7t [place] [address] Care Team Providers Care Eap Consultant Name Role Phone Bc Hunter MD Primary Care Prov ider Encounter Details Date Type Department Care Team (Late st Contact Info) Description 02/24/2022 Telephone [facility] MEDICINE 230 [place], [place] [phone] Bc Hunter MD 505 [place], [place] [phone] Social History Tobacco Use Types Packs/Day Years [...] on filedocumented in this encounter Care Teams Eap Consultant Relationship Specialty Start Date End Date Bc Hunter MD 505 [place], [place] [phone] PCP - General Internal Medicine 01/03/19 documented as of this encounter
== END 2024-05-12 11:05 | disposition home or self-care (01) ==
LOC: HO.ACS 10:33
PROVIDERS: PCP Internal Medicine; Visit Provider Internal Medicine
DX: Z79.01 Long term (current) use of anticoagulants (principal)

== ENCOUNTER → 2024-05-12 10:33 | Outpatient (BNVA) | payer MEDICARE, MEDICAID, SELFPAY | PROVIDERS: PCP Internal Medicine; Visit Provider Internal Medicine | DX: Z95.2 Presence of prosthetic heart valve (principal); Z79.01 Long term (current) use of anticoagulants; Z51.81 Encounter for therapeutic drug level monitoring | CPT/HCPCS: 85610; 99211 ==

== ENCOUNTER 2024-05-19 11:32 | Outpatient (AMB) | payer MEDICARE, MEDICAID, SELFPAY ==
[2024-05-19 11:41] LABS: Prothrombin Time Whole Bld POC 23.9 sec (11.1-13.5)
--- NOTE | 2024-05-19 11:54 | MHC.OFFVISCO ---
Intake Intake Visit Reasons: Anticoagulation Allergies No Known Allergies Allergy (Mild, Verified 05/19/24 11:33) NOT APPLICABLE Medication List - Last Reconciled 05/19/24 by Raissa Hull RN albuterol sulfate 90 mcg/actuation (Ventolin HFA) 1 puff inhalation RQ4H PRN atorvastatin 40 mg PO BEDTIME benztropine 1 mg PO BID cholecalciferol (vitamin D3) (Vitamin D3) 25 mcg PO QAM dicyclomine 20 mg PO BID divalproex ER 1,000 mg (2 x 500 mg) PO BEDTIME ferrous sulfate 324 mg PO DAILY vhnjyreqhgw-ntnzbyutk-nssrsfer 100-62.5-25 mcg (Trelegy Ellipta) 1 inh inhalation RDAILY levothyroxine 25 mcg PO DAILY@0600 loratadine 10 mg PO DAILY magnesium oxide 400 mg PO BIDPC multivitamin with folic acid 400 mcg (Daily-Stanley (with folic acid)) 1 tab PO DAILY mupirocin 2% 1 appl See Protocol topical BID pantoprazole 40 mg PO BID phenazopyridine 200 mg PO TID PRN revefenacin (Yupelri) 175 mcg (3 mL) inhalation DAILY risperidone (Risperdal) 2 mg PO BID tamsulosin 0.4 mg PO BEDTIME warfarin See Protocol 2 mg orally 4MG DAILY OR DIRECTED; 4MG DAILY OR DIRECTED Nursing Note pt coming to [facility] appt ambulatory with 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 Pt will have new construction supervisor/carpenter whom which Jeet states may be challenging for pt because he is much younger INR: 2.0 in therapeutic range Medications and supplements reviewed No changes in health, diet, medications, or supplements, Denies any signs and symptoms of bleeding or bruising or clotting. Bleeding, bruising, clotting discussed Nutritional guidance given - Enc fresh fruits and vegetables , proteins and greens and water Dose: keep same for now 2mg x 3 days/ 4mg x 4 days F/U INR: 11 days Patient and Jeet verbalize understanding of instructions given Anti-Coag Initial Assessment Social Hx Patient Tobacco Use Status: Refuse Tobacco use screen alcohol intake: never Coding Level of Care Code Est Patient Level 1 Diagnoses Current use of anticoagulant therapy Z79.01 Results AMB INR Fingerstick AMB INR Fingerstick 2.0 Last Edit by Raissa Hull RN on 05/19/24 11:45 MANUAL ENTRY Assessment & Plan Assessment & Plan (1) Current use of anticoagulant therapy: Code(s): Z79.01 - FDC (current) use of anticoagulants Category: Medical
--- OUTSIDE RECORDS SUMMARY | 2024-05-19 13:48 | XMS_ITS | Encounter Summary ---
Author Organization [employer] Address [address] [facility] [address] [place] [address] Care Team Providers Care Clinical Assistant Name Role Phone Bc Hunter MD [...] documented as of this encounter Care Teams Clinical Assistant Relationship Specialty Start Date End Date Bc Hunter MD [address] [place] [address] PCP - General Internal Medicine 01/03/19 documented as of this encounter
--- OUTSIDE RECORDS SUMMARY | 2024-05-19 13:48 | XMS_ITS | Encounter Summary ---
Author Organization [employer] Address [address] [facility] [address] 7t [place] [address] Care Team Providers Care Director Of Sales Name Role Phone Bc Hunter MD Primary [...] documented as of this encounter Care Teams Director Of Sales Relationship Specialty Start Date End Date Bc Hunter MD [address] [place] [address] PCP - General Internal Medicine 01/03/19 documented as of this encounter
--- OUTSIDE RECORDS SUMMARY | 2024-05-19 13:48 | XMS_ITS | Encounter Summary ---
Author Organization [employer] Address [address] [facility] [address] [place] [address] Care Team Providers Care Change Control Specialist Name Role Phone Bc Hunter MD Primary Care Prov ider Reason for Visit * Reason Comments Med Refill Encounter Details Date Type Department Care Team ([facility] st Contact Info) Description 05/18/2023 Refill [facility] [address] [place] [address] Bc Hunter MD 505 [place] [address] Social History Tobacco Use Types Packs/Day Years [...] documented as of this encounter Care Teams Change Control Specialist Relationship Specialty Start Date End Date Bc Hunter MD [address] [place] [address] PCP - General Internal Medicine 01/03/19 documented as of this encounter
--- OUTSIDE RECORDS SUMMARY | 2024-05-19 13:48 | XMS_ITS | Encounter Summary ---
Author Organization [employer] Address [address] [facility] [address] 7t [place] [address] Care Team Providers Care Antique Automobiles Repairer Name Role Phone Bc Hunter MD Primary Care Prov ider Encounter Details Date Type Department Care Team (Late st Contact Info) Description 05/12/2024 Orders Only GENERIC EXTERNAL DATA [...] [facility]INIC Routine 05/12/2024 10:43 AM EST documented in this encounter Results * (ABNORMAL) PROTHROMBIN TIME WHOLE BLD POC (05/12/2024 10:43 AM EST) Protime 31.8(H) 11.1 - 13.5 sec [facility] 05/12/2024 10:4 3 AM EST 05/12/2024 11:14 AM EST us Generic External Data Provider LAB BLOOD ORDERAB LES Final Result Performing Organization Address City/State/[facility] Co de Phone Number [facility] [address] [place] [phone] * (ABNORMAL) ~PT, ~INR - ANTI COAG CLINIC (05/12/2024 10:43 AM EST) Prothrombin Time INR 2.6(H) 0.9 - 1.1 [facility] Comment:METER #: [id number] TERNATIONAL NORMALIZED RATIO (INR) REFERENCE RANGES Reference [...] LAB BLOOD ORDERAB LES Final Result [facility] [address] [place] [phone] documented in this encounter Visit Diagnoses Not on filedocumented in this encounter Additional Health Concerns Assessment Noted Time PHQ-9 Depression Total Score: 0 09/30/19 24 11:02 AM EDT documented as of this encounter Care Teams [employer] Automobiles Repairer Relationship Specialty Start Date End Date Bc Hunter MD [address] [place] [address] PCP - General Internal Medicine 01/03/19 documented as of this encounter
--- OUTSIDE RECORDS SUMMARY | 2024-05-19 13:48 | XMS_ITS | Encounter Summary ---
Author Organization [facility] Address [address] [place] [address] Phone Care Team Providers Care Coil Connector Name Role Phone Bc Yates Primary Care Provider [phone] Encounter Details Date Type Department Care Team (Late st Contact Info) Description 05/26/2021 Documentation Only [facility] [place], [address] [place] [address] Trever Lopez MD [address] [place] [address] [place] [address] Social History Tobacco Use Types [...] Visit [facility] [address] [place] [address] Trever Lopez MD [address] [place] [address] [place] [address] documented as of this encounter Visit Diagnoses Not on filedocumented in this encounter Care Teams Coil Connector Relationship Specialty Start Date End Date Bc Yates PCP - General Internal Medicine 10/05/22 documented as of this encounter
--- OUTSIDE RECORDS SUMMARY | 2024-05-19 13:48 | XMS_ITS | Encounter Summary ---
Author Organization [employer] Address [address] [facility] [address] 7t [place] [address] Care Team Providers Care Energy Efficiency Finance Manager Name Role Phone Bc Hunter MD Primary Care Prov ider Encounter Details Date Type Department Care Team (Late st Contact Info) Description 05/19/2024 Orders Only GENERIC EXTERNAL DATA DEPARTMENT Provider, [...] Comments PROTHROMBIN TIME WHOLE BLD POC Routine 05/19/2024 11:39 AM EST ~PT, ~INR - ANTI COAG CLINIC Routine 05/19/2024 11:39 AM EST documented in this encounter Results * (ABNORMAL) PROTHROMBIN TIME WHOLE BLD POC (05/19/2024 11:39 AM EST) Protime 23.9(H) 11.1 - 13.5 sec [facility] 05/19/2024 11:3 9 AM EST 05/19/2024 11:41 AM EST us Generic External Data Provider LAB BLOOD ORDERAB LES Final Result Performing Organization Address City/State/[facility] Co de Phone Number [facility] [address] [place] [phone] * (ABNORMAL) ~PT, ~INR - ANTI COAG CLINIC (05/19/2024 11:39 AM EST) Prothrombin Time INR 2.0(H) 0.9 - 1.1 [facility] Comment:METER #: [id number] TERNATIONAL NORMALIZED RATIO (INR) REFERENCE RANGES Reference RangeFor patients not on anticoagulant therapy: 0.9 - 1.1INR ranges for oral anticoagulanttherapy:For prevention and treatment of venous thrombosis and pulmonary embolism: 2.0 - 3.0For acute myocardial infarction with aspirin therapy: 2.0 - 3.0For acute myocardial infarction without aspirin therapy: 3.0 - 4.0For patients with mechanical prosthetic heart valves: 2.5 - 3.5 05/19/2024 11:3 9 AM EST 05/19/2024 11:41 AM EST us Generic External Data Provider LAB BLOOD ORDERAB LES Final Result [facility] [address] [place] [phone] documented in this encounter Visit Diagnoses Not on filedocumented in this encounter Additional Health Concerns Assessment Noted Time PHQ-9 Depression Total Score: 0 09/30/19 24 11:02 AM EDT documented as of this encounter Care Teams Energy Efficiency Finance Manager Relationship Specialty Start Date End Date Bc Hunter MD [address] [place] [address] PCP - General Internal Medicine 01/03/19 documented as of this encounter
--- OUTSIDE RECORDS SUMMARY | 2024-05-19 13:48 | XMS_ITS | Encounter Summary ---
Author Organization [employer] Address 75 [facility] 7 [place] [address] Care Team Providers Care Print Line Tailer Name Role Phone Bc Hunter MD Primary Care Prov ider Reason for Visit * Reason Onset Date Comments Nurse Triage 05/26/2023 Encounter Details Date Type Department Care Team (Late st Contact Info) Description 05/26/2023 Telephone [facility] [address] [place] [address] Bc Hunter MD 505 [place], [place] [phone] Nurse Triage Social History Tobacco Use Types [...] AM EST Triage call Pt is in [facility], Krystin Sepulveda taking call and consent is signed by Pt for staff to speak . Pt has had some changes. Pt decided to stop all psyche medications and MD Ward Myers,discontinued them. (Stop date unknown) Pt has since that time decreased eating, appetite is poor. Pt weight yesterday at [facility] is 173lbs. Pt was said to be around 202lbs regularly. Pt clothes are fitting very loosely now. Pt also wanted to stop coumadin but, [facility] instructed that wouldn't be good to do [...] acuity questions The caller accepted this outcome [phone] documented in this encounter Plan of Treatment Not on file documented as of this encounter Visit Diagnoses Not on filedocumented in this encounter Additional Health Concerns Assessment Noted Time PHQ-9 Depression Total Score: 0 07/11/19 23 11:26 AM EDT documented as of this encounter Care Teams Print Line Tailer Relationship Specialty Start Date End Date Bc Hunter MD [address] [place] [address] PCP - General Internal Medicine 01/03/19 documented as of this encounter
--- OUTSIDE RECORDS SUMMARY | 2024-05-19 13:48 | XMS_ITS | Encounter Summary ---
Author Organization [employer] Address [address] [facility] [address] 7t [place] [address] Care Team Providers Care Application Development Specialist Name Role Phone Bc Hunter MD [...] EST) Protime 21.6(H) 11.1 - 13.5 sec [facility] 04/24/2024 11:3 1 AM EST 04/24/2024 11:41 AM EST us Generic External Data Provider LAB BLOOD ORDERAB LES Final Result Performing Organization Address City/State/[facility] Co de Phone Number [facility] [address] [place] [phone] * (ABNORMAL) ~PT, ~INR - ANTI COAG CLINIC (04/24/2024 11:31 AM EST) Prothrombin Time INR 1.8(H) 0.9 - 1.1 [facility] Comment:METER #: [id number] TERNATIONAL NORMALIZED RATIO (INR) REFERENCE RANGES Reference [...] LAB BLOOD ORDERAB LES Final Result [facility] [address] [place] [phone] [phone] documented in this encounter Visit Diagnoses Not on filedocumented in this encounter Additional Health Concerns Assessment Noted Time PHQ-9 Depression Total Score: 0 09/30/19 24 11:02 AM EDT documented as of this encounter Care Teams Application Development Specialist Relationship Specialty Start Date End Date Bc Hunter MD [address] [place] [address] PCP - General Internal Medicine 01/03/19 documented as of this encounter
--- OUTSIDE RECORDS SUMMARY | 2024-05-19 13:48 | XMS_ITS | Clinical Summary ---
Author Organization [facility] [place], Address [address] [place] [address] [place] [address] Phone Care Team Providers Care Forming Process Worker Name Role Phone YatesBc Primary Care Provider Allergies No known active allergies Medications D3-50 1.25 MG (74255 UT) capsule TAKE 1 CAPSULE BY MOUTH [...] [facility] [address] [place] [address] Trever Lopez MD [address] [facility] [place] [phone] Health Maintenance Due Date Last Done Comments Colorectal Cancer Screening: Annual FOBT 2001 Colorectal Cancer Screening: Colonoscopy 2001 Colorectal Cancer Screening: Sigmoidoscopy 2001 Pneumococcal Vaccine: 65+ Ye ars (2 of 2 - PCV) 11/23/2015 11/22/2014 Influenza Vaccine (#1) 2023 Hepatitis B Vaccine Aged Out No longe r eligible based on patient's age to complete this topic Insurance MEDICARE MEDICAID [place] Care Teams Forming Process Worker Relationship Specialty Start Date End Date Bc Yates: [phone] PCP - General Internal Medicine 10/05/22
--- OUTSIDE RECORDS SUMMARY | 2024-05-19 13:48 | XMS_ITS | Encounter Summary ---
Author Organization [employer] Address [address] [facility] [address] 7 [place] [address] Care Team Providers Care Home Sales Service Professional Name Role Phone Bc Hunter MD Primary Care Prov ider Reason for Visit * Reason Onset Date Comments Lung screening 04/27/2024 Encounter Details Date Type Department Care Team ([facility] st Contact Info) Description 04/27/2024 Telephone [facility] [address] [place] [address] Bc Hunter MD 505 [place] [address] Lung screening Social History Tobacco Use Types [...] [place] - 04/27/2024 11:57 AM EST Called [facility] to book CT of the lung for patient and was told pt missed an appt on 04/18/24. [facility] r/s appt for 05/03/24 at 3:45 pm. Called custodial and spoke to Jeet the patient safety manager and gave him appt details for patient's lung screening appt- 05/03/24 at 3:45 pm. Jeet stated he is not able to bring pt to appt at that time due to his staff's shift ending at 4pm. Let Jeet know is important for pt to repeat CTof the lung, and gave [facility] phone number to call and schedule appt [...] documented as of this encounter Care Teams Home Sales Service Professional Relationship Specialty Start Date End Date Bc Hunter MD [address] [place] [address] [place] [address] PCP - General Internal Medicine 01/03/19 documented as of this encounter
--- OUTSIDE RECORDS SUMMARY | 2024-05-19 13:48 | XMS_ITS | Encounter Summary ---
Author Organization [employer] Address [address] [place] [address] 7 [place] [address] Care Team Providers Care Music Minister Name Role Phone Bc Hunter MD Primary Care Prov ider Reason for Visit * Reason Comments Med Refill Encounter Details Date Type Department Care Team (Late st Contact Info) Description 10/25/2022 Refill [facility] PEDS [address] [place] [address] Bc Hunter MD 505 [place] [address] Social History Tobacco Use Types Packs/Day Years [...] documented as of this encounter Care Teams Music Minister Relationship Specialty Start Date End Date Bc Hunter MD [address] [place], [place] [phone] PCP - General Internal Medicine 01/03/19 documented as of this encounter
--- OUTSIDE RECORDS SUMMARY | 2024-05-19 13:48 | XMS_ITS | Encounter Summary ---
Author Organization [facility] Address [address] [place] [address] Phone Care Team Providers Care Business Account Manager Name Role Phone Bc Yates Primary Care Provider [phone]- [phone] Reason for Visit * Reason Comments Med Refill Encounter Details Date Type Department Care Team (Late st Contact Info) Description 01/13/2022 Refill [facility] [address] [place] [address] Trever Lopez MD [address] [facility] [place] [address] Social History Tobacco Use Types [...] Visit [facility] [address] [place] [address] Trever Lopez MD [address] [facility] [place] [address] documented as of this encounter Visit Diagnoses Not on filedocumented in this encounter Care Teams Business Account Manager Relationship Specialty Start Date End Date Bc Yates PCP - General Internal Medicine 10/05/22 documented as of this encounter
--- OUTSIDE RECORDS SUMMARY | 2024-05-19 13:48 | XMS_ITS | Encounter Summary ---
Author Organization [employer] Address [address] [place] [address] 7 [place] [address] Care Team Providers Care Licensed Customs Broker Name Role Phone Bc Hunter MD Primary Care Prov ider Reason for Visit * Reason Onset Date Comments Med Refill 09/21/2022 Encounter Details Date Type Department Care Team (Late st Contact Info) Description 09/21/2022 Telephone [facility]EDS [address] [place] [address] Bc Hunter MD 505 [place] [address] Med Refill Social History Tobacco Use Types [...] 09/23/2022 8:28 AM EDT Pt managed by [facility]. Last INR of 3.1 noted 09/17/22. Will forward request for Rx to covering provider to review. * Telephone Encounter - Ping Nettles - 09/21/2022 10:39 AM EDT Tc from pt requesting med refill on Warfarin 1 mg tablet [id number] - [place], [place] - [address] [place] [address] Please sent to documented in this encounter Plan of Treatment Not on file documented as of this encounter Visit Diagnoses Diagnosis History of Coumadin therapy- Primary S/P aortic valve replacement Heart valve replaced by other means documented in this encounter Additional Health Concerns Assessment Noted Time PHQ-9 Depression Total Score: 0 07/11/19 23 11:26 AM EDT documented as of this encounter Care Teams Licensed Customs Broker Relationship Specialty Start Date End Date Bc Hunter MD [address] [place] [phone] PCP - General Internal Medicine 01/03/19 documented as of this encounter
--- OUTSIDE RECORDS SUMMARY | 2024-05-19 13:48 | XMS_ITS | Encounter Summary ---
Author Organization [employer] Address [address] [facility] [address] 7t [place] [address] Care Team Providers Care Industrial Relations Manager Name Role Phone Bc Hunter MD [...] EST) Protime 51.9(H) 11.1 - 13.5 sec [facility] 05/01/2024 11:1 2 AM EST 05/01/2024 11:14 AM EST us Generic External Data Provider LAB BLOOD ORDERAB LES Final Result Performing Organization Address City/State/[facility] Co de Phone Number [facility] [address] [place] [phone] * (ABNORMAL) ~PT, ~INR - ANTI COAG CLINIC (05/01/2024 11:12 AM EST) Prothrombin Time INR 4.3(H) 0.9 - 1.1 [facility] Comment:METER #: [id number] TERNATIONAL NORMALIZED RATIO (INR) REFERENCE RANGES Reference [...] Provider LAB BLOOD ORDERAB LES Final Result [facility] [address] [place] [address] [phone] documented in this encounter Visit Diagnoses Not on filedocumented in this encounter Additional Health Concerns Assessment Noted Time PHQ-9 Depression Total Score: 0 09/30/19 24 11:02 AM EDT documented as of this encounter Care Teams Industrial Relations Manager Relationship Specialty Start Date End Date Bc Hunter MD [address] [place] [address] PCP - General Internal Medicine 01/03/19 documented as of this encounter
--- OUTSIDE RECORDS SUMMARY | 2024-05-19 13:48 | XMS_ITS | Encounter Summary ---
Author Organization [employer] Address [address] [facility] 7 [place] [address] Care Team Providers Care Warper Fixer Name Role Phone Bc Hunter MD Primary Care Prov ider Reason for Visit * Reason Onset Date Comments Referral 12/06/2023 Encounter Details Date Type Department Care Team ([facility] st Contact Info) Description 12/06/2023 Telephone [facility] MED[facility]INE [address] [place] [address] Bc Hunter MD [address] [place], [place] [phone] Referral Social History Tobacco Use Types Packs/Day [...] 12/06/2023 9:45 AM EDT Tc from patients intermediate calling to report the provider for podiatry has and would need to be referred to another location would like to be seen by Sarkis in the [place] location ifpossible documented in this encounter Plan of Treatment Not on file documented as of this encounter Visit Diagnoses Not on filedocumented in this encounter Additional Health Concerns Assessment Noted Time PHQ-9 Depression Total Score: 0 09/30/19 24 11:02 AM EDT documented as of this encounter Care Teams Warper Fixer Relationship Specialty Start Date End Date Bc Hunter MD [address] [place] [address] PCP - General Internal Medicine 01/03/19 documented as of this encounter
--- OUTSIDE RECORDS SUMMARY | 2024-05-19 13:48 | XMS_ITS | Encounter Summary ---
Author Organization [employer] Address [address] [facility] 7 [place] [address] Care Team Providers Care Stock Sorter Name Role Phone Bc Hunter MD Primary Care Prov ider Reason for Visit * Reason Comments Med Refill Encounter Details Date Type Department Care Team ([facility] st Contact Info) Description 05/06/2024 Refill [facility]INE [address] [place] [address] Bc Hunter MD [address] [place], [place] [phone] Mixed hyperlipidemia Social History Tobacco Use Types [...] documented as of this encounter Care Teams Stock Sorter Relationship Specialty Start Date End Date Bc Hunter MD [address] [place] [address] PCP - General Internal Medicine 01/03/19 documented as of this encounter
--- OUTSIDE RECORDS SUMMARY | 2024-05-19 13:48 | XMS_ITS | Encounter Summary ---
Author Organization [employer] [facility] Address [address] [facility] [address] 7t [place] [address] Care Team Providers Care Tester/Lift Trucker Name Role Phone Bc Hunter MD Primary Care Prov ider Encounter Details Date Type Department Care Team (Late st Contact Info) Description 02/24/2022 Telephone [facility]INE [address] [place], [place] [phone] Bc Hunter MD [address] [place], [place] [phone] Social History Tobacco Use Types Packs/Day Years [...] on filedocumented in this encounter Care Teams Tester/Lift Trucker Relationship Specialty Start Date End Date Bc Hunter MD [address] [place], [place] [phone] PCP - General Internal Medicine 01/03/19 documented as of this encounter
--- OUTSIDE RECORDS SUMMARY | 2024-05-19 13:48 | XMS_ITS | Encounter Summary ---
Author Organization [employer] Address [address] [place] [address] 7 [place] [address] Care Team Providers Care Health Social Work Professor Name Role Phone Bc Hunter MD Primary Care Prov ider Reason for Referral * Imaging (Routine) - Authorized Specialty Diagnoses / Procedures Referred By Contac t Referred To Contact Radiology Diagnoses Nodule of left lung Procedures CT Chest w/o Contrast Bc Hunter MD [address] [place] [address] Phone: tel: fax: [address] Phone: tel: fax: Referral ID Status Reason Start Date Expiration Date V isits Requested Visits Authorized [id number] Authorized 04/26/2024 04/26/2025 1 1 Encounter Details Date Type Department Care Team (Latest Contact Info) Description 04/26/2024 11:15 AM EST Office Visit [facility] MED & PEDS [address] [place], [place] [phone] Bc Hunter MD 505 [place], [place] [phone] Acquired hypothyroidism (Primary Dx); Other iron deficiency [...] Will order a follow up LDCT scan, tier in was told to contact pulmonology office Relevant Orders CT Chest w/o Contrast documented in this encounter Miscellaneous Notes * Assessment & Plan Note - Bc Rascon MD - 04/26/2024 11:54 AM ESTAssociated Problem(s): Nodule of left lung Will order a follow up LDCT scan, tier in was told to contact pulmonology office documented [...] documented as of this encounter Care Teams Health Social Work Professor Relationship Specialty Start Date End Date Bc Hunter MD [address] [place] [address] PCP - General Internal Medicine 01/03/19 documented as of this encounter
--- OUTSIDE RECORDS SUMMARY | 2024-05-19 13:48 | XMS_ITS | Encounter Summary ---
Author Organization [employer] Address 75 [facility] 7 [place] [address] Care Team Providers Care Forest Examiner Name Role Phone Bc Hunter MD Primary Care Prov ider Encounter Details Date Type Department Care Team (Late st Contact Info) Description 07/16/2022 Telephone [facility] CH[facility] MED & PEDS [address] [place], [place] [phone] Bc Hunter MD 505 [place] [address] Social History Tobacco Use Types Packs/Day Years [...] swelling. Right side. Please contact Lori @ [phone] if additional labs are requested by PCP [...] swelling. Right side. Please contact Lori @ [phone] if additional labs are requested by PCP [...] documented as of this encounter Care Teams Forest Examiner Relationship Specialty Start Date End Date Bc Hunter MD [address] [place] [id number] PCP - General Internal Medicine 01/03/19 documented as of this encounter
--- OUTSIDE RECORDS SUMMARY | 2024-05-19 13:48 | XMS_ITS | Encounter Summary ---
Author Organization [employer] Address 75 [facility] 7 [place] [address] Care Team Providers Care Haz Tech Name Role Phone Bc Hunter MD Primary Care Prov ider Reason for Visit * Reason Onset Date Comments Med Refill 05/15/2022 Encounter Details Date Type Department Care Team ([facility] st Contact Info) Description 05/15/2022 Telephone [facility] CH[facility] MED & PEDS 505 [place] [address] Bc Hunter MD 505 [place] [address] Med Refill Social History Tobacco Use Types [...] a max daily dose. Call placed to [facility] Coumadin clinic. Per Della, pt is currently [...] 11:54 AM EST Tc from Amy with [facility] requesting some kinds of specific directions for warfarin (Coumadin) 2 MG tablet If any question please contact amy at [phone] documented in this encounter Plan of Treatment Not on file documented as of this encounter Visit Diagnoses Not on filedocumented in this encounter Care Teams Haz Tech Relationship Specialty Start Date End Date Bc Hunter MD [address] [place] [address] PCP - General Internal Medicine 01/03/19 documented as of this encounter
--- OUTSIDE RECORDS SUMMARY | 2024-05-19 13:48 | XMS_ITS | Encounter Summary ---
Author Organization [employer] Address [address] [facility] [address] 7t [place] [address] Care Team Providers Care Concrete Pump Operator Name Role Phone Bc Hunter MD Primary Care Prov ider Reason for Visit * Reason Comments Med Change Request Encounter Details Date Type Department Care Team ([facility] Contact Info) Description 07/19/2023 Refill [facility] CHC MED & PEDS [address] [place] [address] Oralia Mazariegos FNP 505 [place] [address] Social History Tobacco Use Types Packs/Day Years [...] documented as of this encounter Care Teams Concrete Pump Operator Relationship Specialty Start Date End Date Bc Hunter MD [address] [place] [address] PCP - General Internal Medicine 01/03/19 documented as of this encounter
--- OUTSIDE RECORDS SUMMARY | 2024-05-19 13:48 | XMS_ITS | Clinical Summary ---
Author Organization [employer] Address 75 [facility] 7t [place] [address] Care Team Providers Care Washer Repairman Name Role Phone Bc Hunter MD Primary [...] Will order a follow up LDCT scan, spinning doffer was told to contact pulmonology office Seborrheic dermatitis of scalp 01/26/2023 Assessment & Plan (07/20/2023 8:52 PM EDT): Followed by [facility] Derm clinic Refill of topical ketoconazole and [...] valve replacement 04/28/2022 Overview (07/20/2023): Followed by [facility] Assessment & Plan (07/20/2023 8:46 PM EDT): Cardiology consult scheduled 07/20/23 No reported hx of bleeding, no reported chest pain/shortness of breath Discussed with PCP and [facility] (Lori FLETCHER). Plan to bridge pt from Eliquis to Coumadin. May DC Eliquis once Coumadin therapeutic Coumadin dosinmg on Wednesday and Wednesday 4mg all other days of the week Plan: [facility] Coagulation clinic to reach out to retirement to schedule INR check and re-start on [...] Other schizophrenia 09/22/2011 Overview (07/20/2023): Living in Correction Assessment & Plan (07/30/2023 12:17 AM EDT): [...] Encounters Date Type Department Care Team Description 05/19/2024 Orders Only GENERIC EXTERNAL DATA DEPARTMENT Provider, Generic External Data 05/12/2024 Orders Only GENERIC EXTERNAL DATA DEPARTMENT Provider, Generic External Data 05/06/2024 Refill [facility] MEDICINE [address] [place] [address] Bc Hunter MD Mixed hyperlipidemia 05/01/2024 Orders Only GENERIC EXTERNAL DATA DEPARTMENT Provider, Generic External Data 04/27/2024 Telephone [facility] MED & PEDS [address] [place] [address] Bc Hunter MD Lung screening 04/26/2024 11:15 AM EST Office Visit [facility] MED & PEDS [address] [place] [address] Bc Hunter MD Acquired hypothyroidism (Primary Dx); Other iron deficiency anemia; Nodule of left lung 04/26/2024 Travel 04/24/2024 Orders Only GENERIC EXTERNAL DATA DEPARTMENT Provider, Generic External Data 04/19/2024 Travel 04/17/2024 Orders Only GENERIC EXTERNAL DATA DEPARTMENT Provider, Generic External Data 04/10/2024 Orders Only GENERIC EXTERNAL DATA DEPARTMENT Provider, Generic External Data 04/05/2024 Telephone [facility] MED & PEDS [address] [place] [address] Bc Hunter MD Anticoagulation 04/05/2024 Orders Only GENERIC EXTERNAL DATA DEPARTMENT Provider, Generic External Data 03/29/2024 Orders Only GENERIC EXTERNAL DATA DEPARTMENT Provider, Generic External Data 03/19/2024 Refill [facility] MED & PEDS [address] [place] [address] Oralia Mazariegos FNP S/P aortic valve replacement 03/19/2024 Refill [facility] MED[facility]INE [address] [place] [address] Zafar Richard MD Mixed hyperlipidemia 03/01/2024 Orders Only GENERIC EXTERNAL DATA DEPARTMENT Provider, Generic External Data 02/28/2024 Refill [facility] MED[facility] [address] [place] [address] Bc Hunter MD from Last 3 Months [...] COAG CLINIC Routine 05/19/2024 11:39 AM EST PROTHROMBIN TIME WHOLE BLD POC Routine 05/12/2024 [...] WHOLE BLD POC (05/19/2024 11:39 AM EST) Only the most recent of9 resultswithin the time period is included. Protime 23.9(H) 11.1 - 13.5 sec [facility] 05/19/2024 11:3 9 AM EST 05/19/2024 11:41 AM EST us Generic External Data Provider LAB BLOOD ORDERAB LES Final Result [facility] [address] [place] [phone] * (ABNORMAL) ~PT, ~INR - ANTI COAG CLINIC (05/19/2024 11:39 AM EST) Only the most recent of9 resultswithin the time period is included. Prothrombin Time INR 2.0(H) 0.9 - 1.1 [facility] Comment:METER #: [id number] TERNATIONAL NORMALIZED RATIO (INR) REFERENCE RANGES Reference [...] ORDERAB LES Final Result Performing Organization Address City/State/[facility] Co de Phone Number [facility] [address] [place] [phone] * Lipid Panel, Standard (05/06/2023 11:48 AM EST) Triglycerides 61 <150 mg/dL [facility] Comment:Desirable Triglyceri de: less than 150 mg/dLBorderline High Triglyceride 150-199 mg/dLHigh Triglyceride: 200-499 mg/dLVery High Triglyceride: greater than or equal to 5OO mg/dL Cholesterol 166 <200 mg/dL [facility] Comment:Desirable Cholestero l: less than 200 mg/dLBorderline High Cholesterol: 200-239 mg/dLHigh Cholesterol: greater than 239 mg/dL LDL Cholesterol Calculated 94 <100 mg/dL [facility] Comment:Desirable LDL: less than 100 mg/dLNear Optimal/Above Optimal LDL: 110- 129 mg/dLBorderline High LDL: 130-159 mg/dLHigh LDL: 160-189 mg/dLVery High LDL: greater than or equal to 190 mg/dL HDL Cholesterol 60 >40 mg/dL [facility] Comment:Desirable HDL: great er than 40 mg/dL Note: This HDL assay may give artificially low results in patients with liver disease. Blood Venous blood specimen / Unknown 05/06/2023 11:48 AM EST 05/06/2023 2:09 PM EST Bc Rascon MD LAB BLOOD ORDERABL ES Final Result [facility] [address] [place] [phone] * Hepatitis C Antibody with Reflex to HCV, RNA, Quantitative, Real-Time PCR (07/10/2022 11:31 AM EDT) Hepatitis C Antibody NON-REACT DEZ NON-REACT DEZ [facility] [place] [facility] Index 0.09 <1.00 [facility] [place] [facility] Comment: HCV antibody was non-reactive. There is no laboratory evidence of HCV infection. In most cases, no further action is required. However, if recent HCV exposure is suspected, a test for HCV RNA (test code 90423) is suggested. For additional information please refer to http://education.[employer]/faq/CQU16d7 (This link is being provided for informational/ educational purposes only.) Blood Venous blood specimen / Unknown 07/10/2022 11:31 AM EDT 07/10/2022 11:32 AM EDT Narrative [facility] - 07/11/2022 5:06 AM EDT FASTING:NO FASTING: NO Bc Rascon MD LAB BLOOD ORDERABL ES Final Result [facility] [address], [place] [address] [facility] [place] [facility] [address] [place] [address] from Last 3 Months or Most Recently Relevant to Health Maintenance Insurance MEDICARE [facility] Care Teams Washer Repairman Relationship Specialty Start Date End Date Bc Hunter MD [address] [place] [address] PCP - General Internal Medicine 01/03/19
--- OUTSIDE RECORDS SUMMARY | 2024-05-19 13:48 | XMS_ITS | Encounter Summary ---
Author Organization [employer] Address [address] [facility] [address] 7t [place] [address] Care Team Providers Care Road Roller Engineer Name Role Phone Bc Hunter MD Primary Care Prov ider Encounter Details Date Type Department Care Team (Late st Contact Info) Description 09/20/2023 Orders Only [facility] CHC MED & PEDS [address] [place], [place] [phone] Bc Hunter MD 505 [place] [address] Social History Tobacco Use Types Packs/Day Years [...] documented as of this encounter Care Teams Road Roller Engineer Relationship Specialty Start Date End Date Bc Hunter MD [address] [place] [phone] PCP - General Internal Medicine 01/03/19 documented as of this encounter
--- OUTSIDE RECORDS SUMMARY | 2024-05-19 13:48 | XMS_ITS | Encounter Summary ---
Author Organization [employer] Address [address] [facility] [address] 7 [place] [address] Care Team Providers Care Asp Web Developer Name Role Phone Bc Hunter MD Primary Care Prov ider Encounter Details Date Type Department Care Team (Late st Contact Info) Description 05/18/2022 Orders Only [facility] CHC MED & PEDS 505 [place], [place] [phone] Bc Hunter MD 505 [place], [place] [phone] S/P aortic valve replacement Social History Tobacco [...] means documented in this encounter Care Teams Asp Web Developer Relationship Specialty Start Date End Date Bc Hunter MD [address] [place], [place] [phone] PCP - General Internal Medicine 01/03/19 documented as of this encounter
--- OUTSIDE RECORDS SUMMARY | 2024-05-19 13:48 | XMS_ITS | Encounter Summary ---
Author Organization [email or web address] Address 75 [facility] 7 [place] [address] Care Team Providers Care Scale Manager Name Role Phone Bc Hunter MD Primary Care Prov ider Reason for Visit * Reason Onset Date Comments Med Refill 05/12/2022 Encounter Details Date Type Department Care Team (Late st Contact Info) Description 05/12/2022 Telephone [facility] MEDICINE [address] [place] [address] Bc Hunter MD 505 [place], [place] [phone] Med Refill Social History Tobacco Use Types [...] on filedocumented in this encounter Care Teams Scale Manager Relationship Specialty Start Date End Date Bc Hunter MD [address] [place] [phone] PCP - General Internal Medicine 01/03/19 documented as of this encounter
== END 2024-05-19 11:57 | disposition home or self-care (01) ==
LOC: HO.ACS 11:32
PROVIDERS: PCP Internal Medicine; Visit Provider Internal Medicine
DX: Z79.01 Long term (current) use of anticoagulants (principal)

== ENCOUNTER → 2024-05-19 11:32 | Outpatient (BNVA) | payer MEDICARE, MEDICAID, SELFPAY | PROVIDERS: PCP Internal Medicine; Visit Provider Internal Medicine | DX: Z95.2 Presence of prosthetic heart valve (principal); Z79.01 Long term (current) use of anticoagulants; Z51.81 Encounter for therapeutic drug level monitoring | CPT/HCPCS: 85610; 99211 ==

== ENCOUNTER 2024-06-01 13:35 | Outpatient (AMB) | payer MEDICARE, MEDICAID, SELFPAY ==
[2024-06-01 13:48] LABS: Prothrombin Time Whole Bld POC 23.6 sec (11.1-13.5)
--- NOTE | 2024-06-01 13:55 | MHC.OFFVISCO ---
Intake Intake Visit Reasons: Anticoagulation Allergies No Known Allergies Allergy (Mild, Verified 06/01/24 13:39) NOT APPLICABLE Medication List - Last Reconciled 06/01/24 by Raissa Hull RN albuterol sulfate 90 mcg/actuation (Ventolin HFA) 1 puff inhalation RQ4H PRN atorvastatin 40 mg PO BEDTIME benztropine 1 mg PO BID carbamide peroxide (Debrox) 5 DROPS EACH EAR EVERY 2 WEEKS cholecalciferol (vitamin D3) (Vitamin D3) 25 mcg PO QAM dicyclomine 20 mg PO BID ferrous sulfate 324 mg PO DAILY [FLUCINOLONE TOPICAL DAILY ] levothyroxine 25 mcg PO DAILY@0600 loratadine 10 mg PO DAILY magnesium oxide 400 mg PO BIDPC multivitamin with folic acid 400 mcg (Daily-Stanley (with folic acid)) 1 tab PO DAILY pantoprazole 40 mg PO BID phenazopyridine 200 mg PO TID PRN revefenacin (Yupelri) 175 mcg (3 mL) inhalation DAILY 30 days risperidone (Risperdal) 2 mg PO BID tamsulosin 0.4 mg PO BEDTIME valproic acid 1000mg orally daily; warfarin See Protocol 2 mg orally 4MG DAILY OR DIRECTED; 4MG DAILY OR DIRECTED Nursing Note ambulates to ACS with floor care technician, no changes with pt - his pockets are packed with belongings, attitude and appearance are pleasant. INR remains 2.0 Medications and supplements reviewed- states has new inhaler - no other changes- Yupelri does not interact with warfarin per micro medex No changes in health, diet, medications, or supplements, Denies any signs and symptoms of bleeding or bruising or clotting. 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 Anti-Coag Initial Assessment Social Hx Patient Tobacco Use Status: Refuse Tobacco use screen alcohol intake: never Coding Level of Care Code Est Patient Level 1 Diagnoses Current use of anticoagulant therapy Z79.01 Results AMB INR Fingerstick AMB INR Fingerstick 2.0 Last Edit by Raissa Hull RN on 06/01/24 13:48 manual entry Assessment & Plan Assessment & Plan (1) Current use of anticoagulant therapy: Code(s): Z79.01 - FPC (current) use of anticoagulants Category: Medical
--- OUTSIDE RECORDS SUMMARY | 2024-06-01 17:09 | XMS_ITS | Clinical Summary ---
Author Organization [facility], Address [address] [place] [address] [place] [address] Phone Care Team Providers Care Shoe Sewing Machine Operator And Tender Name Role Phone YatesBc Primary Care Provider [phone] Allergies No known active allergies Medications D3-50 1.25 MG (17207 UT) capsule TAKE 1 CAPSULE BY MOUTH [...] Visit [facility] [address] [place] [address] Trever Lopez MD [address] [place] [phone] Health Maintenance Due Date Last Done Comments Colorectal Cancer Screening: Annual FOBT 2001 Colorectal Cancer Screening: Colonoscopy 2001 Colorectal Cancer Screening: Sigmoidoscopy 2001 Pneumococcal Vaccine: 65+ Ye ars (2 of 2 - PCV) 11/23/2015 11/22/2014 Influenza Vaccine (#1) 2023 Hepatitis B Vaccine Aged Out No longe r eligible based on patient's age to complete this topic Insurance MEDICARE MEDICAID [place] Care Teams Shoe Sewing Machine Operator And Tender Relationship Specialty Start Date End Date Bc Yates: [id number] PCP - General Internal Medicine 10/05/22
--- OUTSIDE RECORDS SUMMARY | 2024-06-01 17:09 | XMS_ITS | Encounter Summary ---
Author Organization [employer] Address 75 [facility] 7 [place] [address] Care Team Providers Care Artillery Officer Name Role Phone Bc Hunter MD Primary Care Prov ider Reason for Visit * Reason Onset Date Comments Med Refill 05/12/2022 Encounter Details Date Type Department Care Team (Late st Contact Info) Description 05/12/2022 Telephone [facility] MEDICINE [address] [place] [address] Bc Hunter MD 505 [place], [place] [phone] Med Refill Social History Tobacco Use Types [...] on filedocumented in this encounter Care Teams Artillery Officer Relationship Specialty Start Date End Date Bc Hunter MD [address] [place] [phone] PCP - General Internal Medicine 01/03/19 documented as of this encounter
--- OUTSIDE RECORDS SUMMARY | 2024-06-01 17:09 | XMS_ITS | Clinical Summary ---
Author Organization [facility] Address [address] [place] [address] Phone Care Team Providers Care Poultry Farm Worker Name Role Phone Bc Hunter Primary Care Provide r Medical History Medical History Date Comments Heart valve replaced by other means 06/29/2011 DX:Heart valve replaced by other means Asthma 06/29/2011 DX:Asthma Tobacco abuse 06/29/2011 DX:Tobacco abuse Schizophrenia ([facility]) 06/29/2011 DX:Schiz ophrenia ([facility]) Unspecified hypothyroidism 06/29/2011 DX:Un specified hypothyroidism Chronic airway obstruction, not elsewhere classified 06/29/2011 DX:Chronic airway obstructio n, not elsewhere classified Family History Medical History Relation Name Comments Heart attack Mother fatal Relation Name Status Comments Mother Social History Tobacco Use Types Packs/Day Years Used Date Smoking Tobacco: Every Day Alcohol Use Standard Drinks/Week Comments Not Asked 0 (1 standard drink = 0.6 oz pur e alcohol) Sex and Gender Information Value Date Recorded Sex Assigned at Not on file Legal Sex Male 10:29 AM EST Gender Identity Not on file Sexual Orientation Not on file Obstetrics History Plan of Treatment Upcoming Encounters Date Type Department Care Team (Late st Contact Info) Description 06/07/2024 11:00 AM EDT Appointment [facility] PET Scan [address] [place] [address] Health Maintenance Due Date Last Done Comments RSV Immunization Patients 60+ Years Old (1 - Risk 60-74 years 1-dose series) 2012 Zoster Vaccines (2 of 2) 06/27/2021 05/02/2021 COVID-19 Vaccine ( season) 2023 01/09/2021, 05/16/2020, 04/25/2020 Influenza Vaccine (#1) 2023 2, 12/11/2020, 03/17/2019, Additional history exists Pneumococcal Vaccine: 50+ Years (3 of 3 - PCV20 or PCV21) 03/17/2024 03/17/2019, 06/17/2000 Abdominal Aortic Aneurysm (AAA) Screen 04/14/2024 Colorectal Cancer Screening: Colonoscopy 04/14/2024 Falls Risk Assessment 04/14/2024 Medicare Annual Wellness Visit 04/14/2024 Social Influencers of Health Screening 04/14/2024 Depression Screening 09/29/2024 09/30/2023 Cholesterol Screening (Lipid Panel) 05/06/2028 05/06/2023 DTaP,Tdap,and Td Vaccines (4 - Td or Tdap) 05/02/2031 05/02/2021, 07/15/2010, [...] on patient's age to complete this topic MMR Vaccines Aged Out No longer eligi ble based on patient's age to complete this topic Meningococcal ACWY Vaccine Aged Out N o longer eligible based on patient's age to complete this topic Meningococcal B Vacine Aged Out No lo nger eligible based on patient's age to complete this topic RSV Immunization Patients Under 20 months Aged Out No longer eligible based on patient's age to complete this topic Varicella Vaccines Aged Out No longer eligible based on patient's age to complete this topic Insurance MEDICARE MEDICAID - [place] Care Teams Poultry Farm Worker Relationship Specialty Start Date End Date Bc Hunter [address] [place] [phone] PCP - General Internal Medicine 04/13/24
--- OUTSIDE RECORDS SUMMARY | 2024-06-01 17:09 | XMS_ITS | Encounter Summary ---
Author Organization [employer] Address [address] [facility] [place] [address] Care Team Providers Care Recreation Programmer Name Role Phone cB Hunter MD Primary Care Prov ider Encounter Details Date Type Department Care Team (Late st Contact Info) Description 09/20/2023 Orders Only [facility] [address] [place], [place] [phone] Bc Hunter MD [address] [place] [address] Social History Tobacco Use Types Packs/Day Years [...] documented as of this encounter Care Teams Recreation Programmer Relationship Specialty Start Date End Date Bc Hunter MD [address] [place] [address] PCP - General Internal Medicine 01/03/19 documented as of this encounter
--- OUTSIDE RECORDS SUMMARY | 2024-06-01 17:09 | XMS_ITS | Encounter Summary ---
Author Organization [facility] Address [address] [place] [address] Phone Care Team Providers Care Tearoom Hostess Name Role Phone Bc Yates Primary Care Provider [phone] Encounter Details Date Type Department Care Team (Late st Contact Info) Description 05/26/2021 Documentation Only [facility] [address] [place] [address] Trever Lopez MD [address] [place] [address] [place] [address] Social History Tobacco Use Types [...] Visit [facility] [address] [place] [address] Trever Lopez MD [address] [place] [address] [place] [address] documented as of this encounter Visit Diagnoses Not on filedocumented in this encounter Care Teams Tearoom Hostess Relationship Specialty Start Date End Date Bc Yates PCP - General Internal Medicine 10/05/22 documented as of this encounter
--- OUTSIDE RECORDS SUMMARY | 2024-06-01 17:09 | XMS_ITS | Encounter Summary ---
Author Organization [facility] Address [address] [place] [address] Phone Care Team Providers Care Poultry Farm Manager Name Role Phone Bc Yates Primary Care Provider [phone]- [phone] Reason for Visit * Reason Comments Med Refill Encounter Details Date Type Department Care Team (Late st Contact Info) Description 01/13/2022 Refill [facility] [address] [place] [address] Trever Lopez MD [address] [facility] [place] [address] Social History Tobacco Use Types [...] Visit [facility] [address] [facility] [place] [address] Trever Lopez MD [address] [facility] [place] [address] documented as of this encounter Visit Diagnoses Not on filedocumented in this encounter Care Teams Poultry Farm Manager Relationship Specialty Start Date End Date Bc Yates PCP - General Internal Medicine 10/05/22 documented as of this encounter
--- OUTSIDE RECORDS SUMMARY | 2024-06-01 17:10 | XMS_ITS | Encounter Summary ---
Author Organization [employer] Address 75 [facility] 7 [place] [address] Care Team Providers Care Sole Leather Cutting Machine Operator Name Role Phone Bc Hunter MD Primary Care Prov ider Reason for Visit * Reason Onset Date Comments Nurse Triage 05/26/2023 Encounter Details Date Type Department Care Team (Late st Contact Info) Description 05/26/[address] [facility] [address] [place] [address] Bc Hunter MD [address] [place], [place] [phone] Nurse Triage Social History Tobacco Use Types [...] AM EST Triage call Pt is in [facility], Krystin Sepulveda taking call and consent is signed by Pt for staff to speak . Pt has had some changes. Pt decided to stop all psyche medications and MD Ward Myers,discontinued them. (Stop date unknown) Pt has since that time decreased eating, appetite is poor. Pt weight yesterday at barrel charrer helper apt is 173lbs. Pt was said to be around 202lbs regularly. Pt clothes are fitting very loosely now. Pt also wanted to stop coumadin but, barrel charrer helper instructed that wouldn't be good to do [...] acuity questions The caller accepted this outcome [phone] documented in this encounter Plan of Treatment Not on file documented as of this encounter Visit Diagnoses Not on filedocumented in this encounter Additional Health Concerns Assessment Noted Time PHQ-9 Depression Total Score: 0 07/11/19 23 11:26 AM EDT documented as of this encounter Care Teams Sole Leather Cutting Machine Operator Relationship Specialty Start Date End Date Bc Hunter MD [address] [place] [address] PCP - General Internal Medicine 01/03/19 documented as of this encounter
--- OUTSIDE RECORDS SUMMARY | 2024-06-01 17:10 | XMS_ITS | Encounter Summary ---
Author Organization [employer] Address [address] [facility] [address] 7t [place] [address] Care Team Providers Care Space Officer Name Role Phone Bc Hunter MD [...] EST) Protime 23.9(H) 11.1 - 13.5 sec [facility] 05/19/2024 11:3 9 AM EST 05/19/2024 11:41 AM EST us Generic External Data Provider LAB BLOOD ORDERAB LES Final Result Performing Organization Address City/State/[facility] Co de Phone Number [facility] [address] [place] [phone] * (ABNORMAL) ~PT, ~INR - ANTI COAG CLINIC (05/19/2024 11:39 AM EST) Prothrombin Time INR 2.0(H) 0.9 - 1.1 [facility] Comment:METER #: [id number] TERNATIONAL NORMALIZED RATIO (INR) REFERENCE RANGES Reference [...] Provider LAB BLOOD ORDERAB LES Final Result [facility] [address] [place] [phone] [phone] documented in this encounter Visit Diagnoses Not on filedocumented in this encounter Additional Health Concerns Assessment Noted Time PHQ-9 Depression Total Score: 0 09/30/19 24 11:02 AM EDT documented as of this encounter Care Teams Space Officer Relationship Specialty Start Date End Date Bc Hunter MD [address] [place] [address] PCP - General Internal Medicine 01/03/19 documented as of this encounter
--- OUTSIDE RECORDS SUMMARY | 2024-06-01 17:10 | XMS_ITS | Encounter Summary ---
Author Organization [employer] Address [address] [facility] [address] 7t [place] [address] Care Team Providers Care Dry Dip Worker Name Role Phone Bc Hunter MD [...] EST) Protime 31.8(H) 11.1 - 13.5 sec [facility] 05/12/2024 10:4 3 AM EST 05/12/2024 11:14 AM EST us Generic External Data Provider LAB BLOOD ORDERAB LES Final Result Performing Organization Address City/State/[facility] Co de Phone Number [facility] [address] [place] [phone] * (ABNORMAL) ~PT, ~INR - ANTI COAG CLINIC (05/12/2024 10:43 AM EST) Prothrombin Time INR 2.6(H) 0.9 - 1.1 [facility] Comment:METER #: [id number] TERNATIONAL NORMALIZED RATIO (INR) REFERENCE RANGES Reference [...] Provider LAB BLOOD ORDERAB LES Final Result [facility] [address] [place] [phone] documented in this encounter Visit Diagnoses Not on filedocumented in this encounter Additional Health Concerns Assessment Noted Time PHQ-9 Depression Total Score: 0 09/30/19 24 11:02 AM EDT documented as of this encounter Care Teams Dry Dip Worker Relationship Specialty Start Date End Date Bc Hunter MD [address] [place] [address] PCP - General Internal Medicine 01/03/19 documented as of this encounter
--- OUTSIDE RECORDS SUMMARY | 2024-06-01 17:10 | XMS_ITS | Encounter Summary ---
Author Organization [employer] Address [address] [place] [address] 7 [place] [address] Care Team Providers Care Human Resource Intern Name Role Phone Bc Hunter MD Primary Care Prov ider Reason for Visit * Reason Onset Date Comments Med Refill 09/21/2022 Encounter Details Date Type Department Care Team (Late st Contact Info) Description 09/21/2022 Telephone [facility] PEDS [address] [place] [address] Bc Hunter MD [address] [place] [address] Med Refill Social History Tobacco Use Types [...] 09/23/2022 8:28 AM EDT Pt managed by [facility] coumadin clinic. Last INR of 3.1 noted 09/17/22. Will forward request for Rx to covering provider to review. * Telephone Encounter - Ping Nettles - 09/21/2022 10:39 AM EDT Tc from pt requesting med refill on Warfarin 1 mg tablet [id number] [place], [place] - [address] [place] [address] Please sent to documented in this encounter Plan of Treatment Not on file documented as of this encounter Visit Diagnoses Diagnosis History of Coumadin therapy- Primary S/P aortic valve replacement Heart valve replaced by other means documented in this encounter Additional Health Concerns Assessment Noted Time PHQ-9 Depression Total Score: 0 07/11/19 23 11:26 AM EDT documented as of this encounter Care Teams Human Resource Intern Relationship Specialty Start Date End Date Bc Hunter MD [address] [place] [address] PCP - General Internal Medicine 01/03/19 documented as of this encounter
--- OUTSIDE RECORDS SUMMARY | 2024-06-01 17:10 | XMS_ITS | Encounter Summary ---
Author Organization [employer] Address 75 [facility] 7 [place] [address] Care Team Providers Care Pet Store Merchandiser Name Role Phone Bc Hunter MD Primary Care Prov ider Reason for Visit * Reason Comments Med Refill Encounter Details Date Type Department Care Team ([facility] st Contact Info) Description 05/21/[address] [facility] [address] [place] [address] Bc Hunter MD [address] [place], [place] [phone] Social History Tobacco Use Types Packs/Day Years [...] documented as of this encounter Care Teams Pet Store Merchandiser Relationship Specialty Start Date End Date Bc Hunter MD [address] [place] [address] PCP - General Internal Medicine 01/03/19 documented as of this encounter
--- OUTSIDE RECORDS SUMMARY | 2024-06-01 17:10 | XMS_ITS | Clinical Summary ---
Author Organization [employer] Address 75 [facility] 7t [place] [address] Care Team Providers Care Sheet Metal Work Furnace Installer Name Role Phone Bc Hunter MD [...] scalp solution 60 mL 024 2024 Active ketoconazole (Nizoral) 2 % shampooIndication s:Seborrheic dermatitis of scalp Apply topically 2 (two) times a week. Use to wash out flucinonide oil in the morning 3x/week as directed 100 mL 2 024 Active levothyroxine (Synthroid, Levoxyl) 25 MCG [...] A DAY 180 tablet 1 025 Active Acetaminophen Extra Strength 500 MG tablet TAKE 1 TABLET (500 MG) BY MOUTH EVERY 6 (SIX) HOURS IF NEEDED FOR MODERATE PAIN. 60 tablet 3 025 Active ferrous sulfate 325 (65 Fe) MG tablet TAKE 1 TABLET BY MOUTH EVERY MORNING 90 tablet 3 025 Active ferrous sulfate 325 (65 Fe) MG tablet Take 1 tablet (325 mg) by mouth with breakfast. 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 Plan to bridge pt from Eliquis to Coumadin. May DC Eliquis once Coumadin therapeutic Coumadin dosinmg on Wednesday and Wednesday 4mg all other days of the week Plan: [facility] Coagulation clinic to reach out to detention to schedule INR check and re-start on [...] Other schizophrenia 09/22/2011 Overview (07/20/2023): Living in Jail Assessment & Plan (07/30/2023 12:17 AM EDT): [...] Encounters Date Type Department Care Team Description 06/01/2024 Orders Only GENERIC EXTERNAL DATA DEPARTMENT Provider, Generic External Data 05/21/2024 Orders Only [facility] [address] [place] [address] Bc Hunter MD Onychomycosis (Primary Dx) 05/21/2024 Refill [facility] [address] [place] [address] Bc Hunter MD 05/19/2024 Orders Only GENERIC EXTERNAL DATA DEPARTMENT Provider, Generic External Data 05/12/2024 Orders Only GENERIC EXTERNAL DATA DEPARTMENT Provider, Generic External Data 05/06/2024 Refill [facility] [address] [place] [address] Bc Hunter MD Mixed hyperlipidemia 05/01/2024 Orders Only GENERIC EXTERNAL DATA DEPARTMENT Provider, Generic External Data 04/27/2024 Telephone [facility] [address] [place] [address] Bc Hunter MD Lung screening 04/26/2024 11:15 AM EST Office Visit [facility] [address] [place] [address] Bc Hunter MD Acquired hypothyroidism (Primary Dx); Other iron deficiency anemia; Nodule of left lung 04/26/2024 Travel 04/24/2024 Orders Only GENERIC EXTERNAL DATA DEPARTMENT Provider, Generic External Data 04/19/2024 Travel 04/17/2024 Orders Only GENERIC EXTERNAL DATA DEPARTMENT Provider, Generic External Data 04/10/2024 Orders Only GENERIC EXTERNAL DATA DEPARTMENT Provider, Generic External Data 04/05/2024 Telephone [facility] [address] [place] [address] Bc Hunter MD Anticoagulation 04/05/2024 Orders Only GENERIC EXTERNAL DATA DEPARTMENT Provider, Generic External Data 03/29/2024 Orders Only GENERIC EXTERNAL DATA DEPARTMENT Provider, Generic External Data 03/19/2024 Refill [facility] [address] [place] [address] Oralia Mazariegos FNP S/P aortic valve replacement 03/19/2024 Refill [facility] [address] [place], [place] [phone] Zafar Richard MD Mixed hyperlipidemia from Last 3 Months Social History Tobacco [...] your housing situation today? I have neto rebecca 07/19/[address] you li [...] Comments PROTHROMBIN TIME WHOLE BLD POC Routine 06/01/2024 1:46 PM EDT ~PT, ~INR - ANTI COAG CLINIC Routine 06/01/2024 1:46 PM EDT PROTHROMBIN TIME WHOLE BLD POC Routine 05/19/2024 [...] COAG CLINIC Routine 03/29/2024 1:40 PM EST LIPID PANEL, STANDARD Routine 05/06/2023 11:48 AM EST Hyperlipemia, mixed HEPATITIS C AB W/REFL TO HCV RNA, QN, PCR Routine 07/10/2022 11:31 AM EDT S/P aortic valve replacement Pre-op evaluation from Last 3 Months or Most Recently Relevant to Health Maintenance Results * (ABNORMAL) PROTHROMBIN TIME WHOLE BLD POC (06/01/2024 1:46 PM EDT) Only the most recent of9 resultswithin the time period is included. Protime 23.6(H) 11.1 - 13.5 sec [facility] 06/01/2024 1:46 PM EDT 06/01/2024 1:47 PM EDT Generic External Data Provider LAB BLOOD ORDERAB LES Final Result Performing Organization Address [facility] Co de Phone Number [facility] [address] [place] [phone] * (ABNORMAL) ~PT, ~INR - ANTI COAG CLINIC (06/01/2024 1:46 PM EDT) Only the most recent of9 resultswithin the time period is included. Prothrombin Time INR 2.0(H) 0.9 - 1.1 [facility] Comment:METER #: [id number] TERNATIONAL NORMALIZED RATIO (INR) REFERENCE RANGES Reference RangeFor patients not on anticoagulant therapy: 0.9 - 1.1INR ranges for oral anticoagulanttherapy:For prevention and treatment of venous thrombosis and pulmonary embolism: 2.0 - 3.0For acute myocardial infarction with aspirin therapy: 2.0 - 3.0For acute myocardial infarction without aspirin therapy: 3.0 - 4.0For patients with mechanical prosthetic heart valves: 2.5 - 3.5 06/01/2024 1:46 PM EDT 06/01/2024 1:47 PM EDT Generic External Data Provider LAB BLOOD ORDERAB LES Final Result Performing Organization Address [facility] Co de Phone Number [facility] [address] [place] [phone] * Lipid Panel, Standard (05/06/2023 11:48 AM EST) Triglycerides 61 <150 mg/dL [facility] Comment:Desirable Triglyceri de: less than 150 mg/dLBorderline High Triglyceride 150-199 mg/dLHigh Triglyceride: 200-499 mg/dLVery High Triglyceride: greater than or equal to 5OO mg/dL Cholesterol 166 <200 mg/dL [facility] Comment:Desirable Cholestero l: less than 200 mg/dLBorderline High Cholesterol: 200-239 mg/dLHigh Cholesterol: greater than 239 mg/dL LDL Cholesterol Calculated 94 <100 mg/dL [facility] Comment:Desirable LDL: less than 100 [...] ORDERABL ES Final Result Performing Organization Address [facility]/State/ZIP Co de Phone Number [facility] [address] [place] [phone] * Hepatitis C Antibody with Reflex to HCV, RNA, Quantitative, Real-Time PCR (07/10/2022 11:31 AM EDT) Hepatitis C Antibody NON-REACT DEZ NON-REACT DEZ [facility] [place] Index 0.09 <1.00 [facility] [employer] Comment: HCV antibody was non-reactive. There is no laboratory evidence of HCV infection. In most cases, no further action is required. However, if recent HCV exposure is suspected, a test for HCV RNA (test code 25502) is suggested. For additional information please refer to http://education.Minus.Property Moose/faq/LLU73u6 (This link is being provided for informational/ educational purposes only.) Blood Venous blood specimen / Unknown 07/10/2022 11:31 AM EDT 07/10/2022 11:32 AM EDT Narrative [facility] - 07/11/2022 5:06 AM EDT FASTING:NO FASTING: NO Bc Rascon MD LAB BLOOD ORDERABL ES Final Result [facility] [address] [facility], [place] [address] [facility] [address] [place] [address] from Last 3 Months or Most Recently Relevant to Health Maintenance Insurance MEDICARE Member Subscriber Plan / Payer (Ef fective 2022-Present) Name:Chris Zaragoza Member ID:[id number] Relation to Subscriber:Self Name:Chris Zaragoza Subscriber ID:[id number] Payer ID:STATE Group ID:Not on file Type:Medicare Address: [facility] [address] [address] [facility] Care Teams Sheet Metal Work Furnace Installer Relationship Specialty Start Date End Date Bc Hunter MD [address] [place] [address] PCP - General Internal Medicine 01/03/19
--- OUTSIDE RECORDS SUMMARY | 2024-06-01 17:10 | XMS_ITS | Encounter Summary ---
Author Organization [employer] Address [address] [place] [address] [address] [place] [address] Care Team Providers Care Medical Delivery Technician Name Role Phone Bc Hunter MD Primary Care Prov ider Reason for Referral * Consultation (Routine) - Authorized Specialty Diagnoses / Procedures Referred By Conteric t Referred To Contact Podiatry Diagnoses Onychomycosis Bc Hunter MD [address] [place] [address] Phone: tel: fax: Duc Dockery DPM [address] [facility] [address] [place] [phone] Phone: tel: fax: Referral ID Status Reason Start Date Expiration Date Visits Requested Visits Authorized [id number] Authorized Specialty Services Required 05/21/2024 05/21/2025 1 1 Encounter Details Date Type Department Care Team (Late st Contact Info) Description 05/21/2024 Orders Only [facility] [address] [place] [address] Bc Hunter MD [address] [place], [place] [phone] Onychomycosis (Primary Dx) Social History Tobacco Use Types Packs/Day Years [...] as of this encounter Plan of Treatment Scheduled Referrals Name Type Priority Associated Diagnoses Orde r Schedule Referral to Podiatry Outpatient Referral Routine Onychomycosis Expected: 05/21/2024 (Approximate), Expires: 05/21/2025 documented as of this encounter Visit Diagnoses Diagnosis Onychomycosis- Primary Dermatophytosis of nail documented in this encounter Additional Health Concerns Assessment Noted Time PHQ-9 Depression Total Score: 0 09/30/19 24 11:02 AM EDT documented as of this encounter Care Teams Medical Delivery Technician Relationship Specialty Start Date End Date Bc Hunter MD [address] [place] [address] PCP - General Internal Medicine 01/03/19 documented as of this encounter
--- OUTSIDE RECORDS SUMMARY | 2024-06-01 17:10 | XMS_ITS | Encounter Summary ---
Author Organization [employer] Address 75 [facility] 7 [place] [address] Care Team Providers Care Chin Strap Sewer Name Role Phone Bc Hunter MD Primary Care Prov ider Reason for Visit * Reason Comments Med Refill Encounter Details Date Type Department Care Team ([facility] st Contact Info) Description 05/06/2024 Refill [facility] MEDICINE [address] [place] [address] Bc Hunter MD 505 [place], [place] [phone] Mixed hyperlipidemia Social History Tobacco Use Types [...] documented as of this encounter Care Teams Chin Strap Sewer Relationship Specialty Start Date End Date Bc Hunter MD [address] [place] [address] PCP - General Internal Medicine 01/03/19 documented as of this encounter
--- OUTSIDE RECORDS SUMMARY | 2024-06-01 17:10 | XMS_ITS | Encounter Summary ---
Author Organization [employer] Address 75 [facility] 7 [place] [address] Care Team Providers Care Psychological Operations Officer Name Role Phone Bc Hunter MD Primary Care Prov ider Encounter Details Date Type Department Care Team (Late st Contact Info) Description 07/16/2022 Telephone [facility] CHC MED & PEDS 505 [place], [place] [phone] Bc Hunter MD 505 [place] [address] Social History Tobacco Use Types Packs/Day Years [...] swelling. Right side. Please contact Lori @ [phone] if additional labs are requested by PCP [...] swelling. Right side. Please contact Lori @ [phone] if additional labs are requested by PCP [...] documented as of this encounter Care Teams Psychological Operations Officer Relationship Specialty Start Date End Date Bc Hunter MD [address] [place] [phone] PCP - General Internal Medicine 01/03/19 documented as of this encounter
--- OUTSIDE RECORDS SUMMARY | 2024-06-01 17:10 | XMS_ITS | Encounter Summary ---
Author Organization [employer] Address [address] [facility] [address] 7 [place] [address] Care Team Providers Care Software Tools Build Engineer Name Role Phone Bc Hunter MD Primary Care Prov ider Reason for Visit * Reason Comments Med Refill Encounter Details Date Type Department Care Team ([facility] st Contact Info) Description 05/18/2023 Refill [facility] CHC MED & PEDS 505 [place] [address] Bc Hunter MD 505 [place] [address] Social History Tobacco Use Types Packs/Day Years [...] documented as of this encounter Care Teams Software Tools Build Engineer Relationship Specialty Start Date End Date Bc Hunter MD [address] [place] [phone] PCP - General Internal Medicine 01/03/19 documented as of this encounter
--- OUTSIDE RECORDS SUMMARY | 2024-06-01 17:10 | XMS_ITS | Encounter Summary ---
Author Organization [employer] Address [address] [facility] [address] 7t [place] [address] Care Team Providers Care Physiological Chemist Name Role Phone Bc Hunter MD Primary Care Prov ider Reason for Visit * Reason Comments Med Change Request Encounter Details Date Type Department Care Team ([facility] Contact Info) Description 07/19/2023 Refill [facility] CHC MED & PEDS 505 [place] [address] Oralia Mazariegos FNP 505 [place] [address] Social History Tobacco Use Types Packs/Day Years [...] documented as of this encounter Care Teams Physiological Chemist Relationship Specialty Start Date End Date Bc Hunter MD [address] [place] [phone] PCP - General Internal Medicine 01/03/19 documented as of this encounter
--- OUTSIDE RECORDS SUMMARY | 2024-06-01 17:10 | XMS_ITS | Encounter Summary ---
Author Organization [employer] Address [address] [facility] [address] 7 [place] [address] Care Team Providers Care Director Of Knowledge Management Name Role Phone Bc Hunter MD Primary Care Prov ider Encounter Details Date Type Department Care Team (Late st Contact Info) Description 05/18/2022 Orders Only [facility] CHC MED & PEDS 505 [place], [place] [phone] Bc Hunter MD 505 [place], [place] [phone] S/P aortic valve replacement Social History Tobacco [...] means documented in this encounter Care Teams Director Of Knowledge Management Relationship Specialty Start Date End Date Bc Hunter MD 505 [place], [place] [phone] PCP - General Internal Medicine 01/03/19 documented as of this encounter
--- OUTSIDE RECORDS SUMMARY | 2024-06-01 17:10 | XMS_ITS | Encounter Summary ---
Author Organization [employer] Address 75 [facility] 7 [place] [address] Care Team Providers Care Interface Designer Name Role Phone Bc Hunter MD Primary Care Prov ider Reason for Visit * Reason Onset Date Comments Med Refill 05/15/2022 Encounter Details Date Type Department Care Team ([facility] st Contact Info) Description 05/15/[address] [facility] CHC MED & PEDS 505 [place] [address] Bc Hunter MD 505 [place] [address] Med Refill Social History Tobacco Use Types [...] a max daily dose. Call placed to [facility] Coumadin clinic. Per Della, pt is currently [...] 11:54 AM EST Tc from Amy with [facility] requesting some kinds of specific directions for warfarin (Coumadin) 2 MG tablet If any question please contact amy at [phone] documented in this encounter Plan of Treatment Not on file documented as of this encounter Visit Diagnoses Not on filedocumented in this encounter Care Teams Interface Designer Relationship Specialty Start Date End Date Bc Hunter MD [address] [place] [address] PCP - General Internal Medicine 01/03/19 documented as of this encounter
--- OUTSIDE RECORDS SUMMARY | 2024-06-01 17:10 | XMS_ITS | Encounter Summary ---
Author Organization [employer] Address 75 [facility] 7 [place] [address] Care Team Providers Care Admissions Supervisor Name Role Phone Bc Hunter MD Primary Care Prov ider Reason for Visit * Reason Onset Date Comments Referral 12/06/2023 Encounter Details Date Type Department Care Team ([facility] st Contact Info) Description 12/06/2023 Telephone [facility] MEDICINE 230 [place] [address] Bc Hunter MD 505 [place], [place] [phone] Referral Social History Tobacco Use Types Packs/Day [...] to be seen [place] location ifpossible documented in this encounter Plan of Treatment Not on file documented as of this encounter Visit Diagnoses Not on filedocumented in this encounter Additional Health Concerns Assessment Noted Time PHQ-9 Depression Total Score: 0 09/30/19 24 11:02 AM EDT documented as of this encounter Care Teams Admissions Supervisor Relationship Specialty Start Date End Date Bc Hunter MD [address] [place] [phone] PCP - General Internal Medicine 01/03/19 documented as of this encounter
--- OUTSIDE RECORDS SUMMARY | 2024-06-01 17:10 | XMS_ITS | Encounter Summary ---
Author Organization [facility] Address [address] [facility] [address] 7t [place] [address] Care Team Providers Care Property Underwriter Name Role Phone Bc Hunter MD Primary Care Prov ider Encounter Details Date Type Department Care Team (Late st Contact Info) Description 02/24/2022 Telephone [facility] MEDICINE 230 [place], [place] [phone] Bc Hunter MD 505 [place], [place] [phone] Social History Tobacco Use Types Packs/Day Years [...] on filedocumented in this encounter Care Teams Property Underwriter Relationship Specialty Start Date End Date Bc Hunter MD 505 [place], [place] [phone] PCP - General Internal Medicine 01/03/19 documented as of this encounter
--- OUTSIDE RECORDS SUMMARY | 2024-06-01 17:10 | XMS_ITS | Encounter Summary ---
Author Organization [employer] Address [address] [facility] [address] 7t [place] [address] Care Team Providers Care Slumber Room Attendant Name Role Phone Bc Hunter MD Primary Care Prov ider Encounter Details Date Type Department Care Team (Late st Contact Info) Description 06/01/2024 Orders Only GENERIC EXTERNAL DATA [...] [facility] CLINIC Routine 06/01/2024 1:46 PM EDT documented in this encounter Results * (ABNORMAL) PROTHROMBIN TIME WHOLE BLD POC (06/01/2024 1:46 PM EDT) Protime 23.6(H) 11.1 - 13.5 sec [facility] 06/01/2024 1:46 PM EDT 06/01/2024 1:47 PM EDT us Generic External Data Provider LAB BLOOD ORDERAB LES Final Result Performing Organization Address City/State/[facility] Co de Phone Number [facility] [address] [place] [phone] * (ABNORMAL) ~PT, ~INR - ANTI COAG CLINIC (06/01/2024 1:46 PM EDT) Prothrombin Time INR 2.0(H) 0.9 - 1.1 [facility] Comment:METER #: [id number] TERNATIONAL NORMALIZED RATIO (INR) REFERENCE RANGES Reference [...] 1:46 PM EDT 06/01/2024 1:47 PM EDT us Generic External Data Provider LAB BLOOD ORDERAB LES Final Result [facility] [address] [place] [phone] documented in this encounter Visit Diagnoses Not on filedocumented in this encounter Additional Health Concerns Assessment Noted Time PHQ-9 Depression Total Score: 0 09/30/19 24 11:02 AM EDT documented as of this encounter Care Teams Slumber Room Attendant Relationship Specialty Start Date End Date Bc Hunter MD [address] [place] [phone] PCP - General Internal Medicine 01/03/19 documented as of this encounter
--- OUTSIDE RECORDS SUMMARY | 2024-06-01 17:10 | XMS_ITS | Encounter Summary ---
Author Organization [employer] Address [address] [place] [address] 7 [place] [address] Care Team Providers Care Auto Claim Representative Name Role Phone Bc Hunter MD Primary Care Prov ider Reason for Visit * Reason Comments Med Refill Encounter Details Date Type Department Care Team (Late st Contact Info) Description 10/25/2022 Refill [facility] CHC MED & PEDS 505 [place] [address] Bc Hunter MD 505 [place] [address] Social History Tobacco Use Types Packs/Day Years [...] documented as of this encounter Care Teams Auto Claim Representative Relationship Specialty Start Date End Date Bc Hunter MD 505 [place], [place] [phone] PCP - General Internal Medicine 01/03/19 documented as of this encounter
== END 2024-06-01 14:01 | disposition home or self-care (01) ==
LOC: HO.ACS 13:35
PROVIDERS: PCP Internal Medicine; Visit Provider Internal Medicine
DX: Z79.01 Long term (current) use of anticoagulants (principal)

== ENCOUNTER → 2024-06-01 13:35 | Outpatient (BNVA) | payer MEDICARE, MEDICAID, SELFPAY | PROVIDERS: PCP Internal Medicine; Visit Provider Internal Medicine | DX: J44.9 Chronic obstructive pulmonary disease, unspecified (principal); R91.1 Solitary pulmonary nodule; Z95.2 Presence of prosthetic heart valve; Z79.01 Long term (current) use of anticoagulants; Z51.81 Encounter for therapeutic drug level monitoring | CPT/HCPCS: 85610; 99211; 99212 ==

== ENCOUNTER 2024-06-01 14:06 | Outpatient (AMB) | payer MEDICARE, MEDICAID, SELFPAY ==
[2024-06-01 14:12] VITALS: BP 138/60; PULSE 94; O2SAT 98; BMI 25.9
--- NOTE | 2024-06-01 14:12 | MHC.OFFVIS ---
Vital Signs 06/01/24 14:12 Height 6 ft Weight 190 lb 11.198 oz BMI 25.9 BP 138/60 Blood Pressure Location Lt brachial Position Sitting Pulse 94 Pulse Source Doppler Pulse Oximetry (%) 98 Oxygen Delivery Method Room Air Intake Visit Reasons: copd Allergies No Known Allergies Allergy (Mild, Verified 06/01/24 14:16) NOT APPLICABLE HPI HPI copd: Details: 73-year-old gentleman, active 60+ pack-year smoker, with underlying history of what appears to be schizophrenia, followed for underlying moderate COPD and increasing pulmonary nodule. Patient has been using Trelegy, Yupelri, and albuterol MDI?with reasonable control of his underlying symptoms.? He denies any recent exacerbations.? he was not able to complete his PET scan yet. [facility] Medical History Incarcerated right inguinal hernia Normocytic anemia Metabolic encephalopathy MSSA bacteremia History of atrial fibrillation COPD (chronic obstructive pulmonary disease) Hypothyroid Bipolar 1 disorder Surgical History History of heart surgery Social History Household Members: Other Household Members Other:: half-way Housing: House Housing Other:: half-way Do you presently have visiting nurse or other home services: Yes (half-way) Alcohol intake: never Comment: Close observation Patient Tobacco Use Status: Refuse Tobacco use screen Substance Use Type: Marijuana Advance Directives Date on File: 06/04/23 service: No Sexual orientation: Straight/Heterosexual Review of Systems Const Denies daytime sleepiness, Denies excessive sweating, Denies fatigue, Denies fever(s), Denies lethargy, Denies malaise, Denies night sweats, Denies snoring and Denies weight loss Eyes Denies blurry vision and Denies itchy eyes ENT Denies nasal congestion, Denies post nasal drip, Denies sinus pain, Denies sinus pressure and Denies other ( Thrush) Card Denies chest pain, Denies pedal edema, Denies dyspnea, Denies orthopnea and Denies paroxysmal nocturnal dyspnea Resp Denies cough, Denies hemoptysis, Denies excessive phlegm production, Denies dyspnea, Denies snoring and Denies wheezing GI Denies abdominal pain and Denies heartburn Musc Denies myalgias, Denies arthralgias and Denies joint swelling Skin/Breast Denies rash Neuro Denies memory loss and Denies seizure-like activity Psych Denies abnormal sleep pattern, Denies anxiety and Denies memory loss Endo Denies excessive sweating, Denies fatigue and Denies heat intolerance Clint/Lymph Denies easy bruising Aller/Immun Denies itchy eyes, Denies seasonal rhinorrhea and Denies wheezing Physical Exam Vital Signs: Last Vital Signs Pulse 94 06/01/24 14:12 BP 138/60 06/01/24 14:12 Pulse Ox 98 06/01/24 14:12 Oxygen Delivery Method Room Air 06/01/24 14:12 BMI result Body Mass Index 25.9 Const General: no acute distress and alert Nutritional Appearance: not obese Orientation/consciousness: Other orientation findings ( oriented) HEENT Head: Yes atraumatic Eyes General: appearance normal, both eyes and all related structures Sclerae: sclerae normal EOM: EOMs intact bilaterally Neck Neck: Yes supple Lymphatic: no lymphadenopathy noted Resp Effort & Inspection: normal respiratory effort and no use of accessory muscles Auscultation: clear to auscultation bilaterally Cardio Rate: regular rate Rhythm: regular rhythm Heart sounds: no gallops, no murmurs and no rubs Skin General skin exam: other ( warm) Extrem General: No clubbing, No cyanosis and No edema Results AMB INR Fingerstick AMB INR Fingerstick 2.0 Last Edit by Raissa Hull RN on 06/01/24 13:48 manual entry Assessment & Plan Assessment & Plan (1) COPD (chronic obstructive pulmonary disease): Code(s): J44.9 - Chronic obstructive pulmonary disease, unspecified Category: Medical Plan: Reasonable control on current regimen of Trelegy, Yupelri, and albuterol MDI. Continue current regimen. (2) Right upper lobe pulmonary nodule: Code(s): R91.1 - Solitary pulmonary nodule Category: Medical Plan: PET scan is pending for 07 of June. Coding Level of Care Code Est Pt Level 4 (78357) Diagnoses COPD (chronic obstructive pulmonary disease) J44.9 Right upper lobe pulmonary nodule R91.1
--- OUTSIDE RECORDS SUMMARY | 2024-06-01 17:56 | XMS_ITS | Encounter Summary ---
Author Organization [employer] Address [address] [facility] [address] 7t [place] [address] Care Team Providers Care Safety Grooving Machine Operator Name Role Phone Bc Hunter MD Primary Care Prov ider Reason for Visit * Reason Comments Med Change Request Encounter Details Date Type Department Care Team ([facility] Contact Info) Description 07/19/2023 Refill [facility] CHC MED & PEDS 505 [place] [address] Oralia Mazariegos FNP 505 [place] [address] Social History Tobacco Use Types Packs/Day Years [...] documented as of this encounter Care Teams Safety Grooving Machine Operator Relationship Specialty Start Date End Date Bc Hunter MD [address] [place] [address] PCP - General Internal Medicine 01/03/19 documented as of this encounter
--- OUTSIDE RECORDS SUMMARY | 2024-06-01 17:56 | XMS_ITS | Encounter Summary ---
Author Organization [employer] Address 75 [facility] 7 [place] [address] Care Team Providers Care Auto Transmission Technician Name Role Phone Bc Hunter MD Primary Care Prov ider Reason for Visit * Reason Comments Med Refill Encounter Details Date Type Department Care Team ([facility] st Contact Info) Description 05/21/[address] [facility] MEDICINE 230 [place] [address] Bc Hunter MD 505 [place], [place] [phone] Social History Tobacco Use Types Packs/Day Years [...] as of this encounter Care Teams Auto Transmission Technician Relationship Specialty Start Date End Date Bc Hunter MD [address] [place] [address] PCP - General Internal Medicine 01/03/19 documented as of this encounter
--- OUTSIDE RECORDS SUMMARY | 2024-06-01 17:56 | XMS_ITS | Clinical Summary ---
Author Organization [facility], Address [address] [place] [address] [place] [address] Phone Care Team Providers Care Stoker Installer Name Role Phone YatesBc Primary Care Provider Allergies No known active allergies Medications D3-50 1.25 MG (04037 UT) capsule TAKE 1 CAPSULE BY MOUTH [...] Visit [facility] [address] [place] [address] Trever Lopez MD [address] [place] [phone] Health Maintenance Due Date Last Done Comments Colorectal Cancer Screening: Annual FOBT 2001 Colorectal Cancer Screening: Colonoscopy 2001 Colorectal Cancer Screening: Sigmoidoscopy 2001 Pneumococcal Vaccine: 65+ Ye ars (2 of 2 - PCV) 11/23/2015 11/22/2014 Influenza Vaccine (#1) 2023 Hepatitis B Vaccine Aged Out No longe r eligible based on patient's age to complete this topic Insurance MEDICARE MEDICAID [place] Care Teams Stoker Installer Relationship Specialty Start Date End Date Bc Yates: [phone] PCP - General Internal Medicine 10/05/22
--- OUTSIDE RECORDS SUMMARY | 2024-06-01 17:56 | XMS_ITS | Encounter Summary ---
Author Organization [employer] Address 75 [facility] 7 [place] [address] Care Team Providers Care Coronary Clinical Specialist Name Role Phone Bc Hunter MD Primary Care Prov ider Reason for Visit * Reason Onset Date Comments Referral 12/06/2023 Encounter Details Date Type Department Care Team ([facility] st Contact Info) Description 12/06/2023 Telephone [facility] MEDICINE 230 [place] [address] Bc Hunter MD 505 [place], [place] [phone] Referral Social History Tobacco Use Types Packs/Day [...] 12/06/2023 9:45 AM EDT Tc from patients retirement calling to report the provider for podiatry has and would need to be referred to another location would like to be seen by Sarkis in the [place] location ifpossible documented in this encounter Plan of Treatment Not on file documented as of this encounter Visit Diagnoses Not on filedocumented in this encounter Additional Health Concerns Assessment Noted Time PHQ-9 Depression Total Score: 0 09/30/19 24 11:02 AM EDT documented as of this encounter Care Teams Coronary Clinical Specialist Relationship Specialty Start Date End Date Bc Hunter MD [address] [place] [address] PCP - General Internal Medicine 01/03/19 documented as of this encounter
--- OUTSIDE RECORDS SUMMARY | 2024-06-01 17:56 | XMS_ITS | Encounter Summary ---
Author Organization [employer] Address 75 [facility] 7 [place] [address] Care Team Providers Care University Services Program Associate Name Role Phone Bc Hunter MD Primary Care Prov ider Reason for Visit * Reason Onset Date Comments Nurse Triage 05/26/2023 Encounter Details Date Type Department Care Team (Late st Contact Info) Description 05/26/2023 Telephone [facility] MEDICINE 230 [place] [address] Bc Hunter MD 505 [place], [place] [phone] Nurse Triage Social History Tobacco Use Types [...] appetite is poor. Pt weight yesterday at lacing operator apt is 173lbs. Pt was said to be around 202lbs regularly. Pt clothes are fitting very loosely now. Pt also wanted to stop coumadin but, lacing operator instructed that wouldn't be good to [...] acuity questions The caller accepted this outcome [phone] documented in this encounter Plan of Treatment Not on file documented as of this encounter Visit Diagnoses Not on filedocumented in this encounter Additional Health Concerns Assessment Noted Time PHQ-9 Depression Total Score: 0 07/11/19 23 11:26 AM EDT documented as of this encounter Care Teams University Services Program Associate Relationship Specialty Start Date End Date Bc Hunter MD [address] [place] [phone] PCP - General Internal Medicine 01/03/19 documented as of this encounter
--- OUTSIDE RECORDS SUMMARY | 2024-06-01 17:56 | XMS_ITS | Clinical Summary ---
Author Organization [employer] Address 75 [facility] 7t [place] [address] Care Team Providers Care Loader Operator Name Role Phone Bc Hunter MD [...] Will order a follow up LDCT scan, campground cleaning attendant was told to contact pulmonology office Seborrheic dermatitis of scalp 01/26/2023 Assessment & Plan (07/20/2023 8:52 PM EDT): Followed by [facility] Derm clinic Refill of topical ketoconazole [...] valve replacement 04/28/2022 Overview (07/20/2023): Followed by [facility] Coumadin Clinic Assessment & Plan (07/20/2023 8:46 PM EDT): Cardiology consult scheduled 07/20/23 No reported hx of bleeding, no reported chest pain/shortness of breath Discussed with PCP and [facility] Coumadin Clinic (Lori FLETCHER). Plan to bridge pt from Eliquis to Coumadin. May DC Eliquis once Coumadin therapeutic Coumadin dosinmg on Wednesday and Wednesday 4mg all other days of the week Plan: [facility] Coagulation clinic to reach out to [facility] to schedule INR check and re-start on [...] Other schizophrenia 09/22/2011 Overview (07/20/2023): [place] Assessment & Plan (07/30/2023 12:17 AM EDT): [...] Provider, Generic External Data 05/21/2024 Orders Only [facility] MED & PEDS 505 [place] [address] Bc Hunter MD Onychomycosis (Primary Dx) 05/21/2024 Refill [facility] MEDICINE 230 [place] [address] Bc Hunter MD 05/19/2024 Orders Only GENERIC EXTERNAL DATA DEPARTMENT Provider, Generic External Data 05/12/2024 Orders Only GENERIC EXTERNAL DATA DEPARTMENT Provider, Generic External Data 05/06/2024 Refill [facility] MEDICINE [address] [place] [address] Bc Hunter MD Mixed hyperlipidemia 05/01/2024 Orders Only GENERIC EXTERNAL DATA DEPARTMENT Provider, Generic External Data 04/27/2024 Telephone [facility] MED & PEDS 505 [place] [address] Bc Hunter MD Lung screening 04/26/2024 11:15 AM EST Office Visit [facility] MED & PEDS 505 [place] [address] Bc Hunter MD Acquired hypothyroidism (Primary Dx); Other iron deficiency anemia; Nodule of left lung 04/26/2024 Travel 04/24/2024 Orders Only GENERIC EXTERNAL DATA DEPARTMENT Provider, Generic External Data 04/19/2024 Travel 04/17/2024 Orders Only GENERIC EXTERNAL DATA DEPARTMENT Provider, Generic External Data 04/10/2024 Orders Only GENERIC EXTERNAL DATA DEPARTMENT Provider, Generic External Data 04/05/2024 Telephone [facility] MED & PEDS [address] [place] [address] Bc Hunter MD Anticoagulation 04/05/2024 Orders Only GENERIC EXTERNAL DATA DEPARTMENT Provider, Generic External Data 03/29/2024 Orders Only GENERIC EXTERNAL DATA DEPARTMENT Provider, Generic External Data 03/19/2024 Refill [facility] MED & PEDS 505 [place] [address] Oralia Mazariegos FNP S/P aortic valve replacement 03/19/2024 Refill [facility] MEDICINE [address] [place], [place] [phone] Zafar Richard MD Mixed hyperlipidemia from Last [...] included. Protime 23.6(H) 11.1 - 13.5 sec [facility] 06/01/2024 1:46 PM EDT 06/01/2024 1:47 PM EDT Generic External Data Provider LAB BLOOD ORDERAB LES Final Result Performing Organization Address [facility] Co de Phone Number [facility] [address] [place] [phone] * (ABNORMAL) ~PT, ~INR - ANTI COAG CLINIC (06/01/2024 1:46 PM EDT) Only the most recent of9 resultswithin the time period is included. Prothrombin Time INR 2.0(H) 0.9 - 1.1 [facility] Comment:METER #: [id number] TERNATIONAL NORMALIZED RATIO (INR) REFERENCE RANGES Reference [...] ORDERAB LES Final Result Performing Organization Address [facility] Co de Phone Number [facility] [address] [place] [phone] * Lipid Panel, Standard (05/06/2023 11:48 AM EST) Triglycerides 61 <150 mg/dL [facility] Comment:Desirable Triglyceri de: less than 150 mg/dLBorderline High Triglyceride 150-199 mg/dLHigh Triglyceride: 200-499 mg/dLVery High Triglyceride: greater than or equal to 5OO mg/dL Cholesterol 166 <200 mg/dL [facility] Comment:Desirable Cholestero l: less than 200 mg/dLBorderline High Cholesterol: 200-239 mg/dLHigh Cholesterol: greater than 239 mg/dL LDL Cholesterol Calculated 94 <100 mg/dL [facility] Comment:Desirable LDL: less than 100 mg/dLNear Optimal/Above Optimal LDL: 110- 129 mg/dLBorderline High LDL: 130-159 mg/dLHigh LDL: 160-189 mg/dLVery High LDL: greater than or equal to 190 mg/dL HDL Cholesterol 60 >40 mg/dL [facility] Comment:Desirable HDL: great er than 40 mg/dL Note: This HDL assay may give artificially low results in patients with liver disease. Blood Venous blood specimen / Unknown 05/06/2023 11:48 AM EST 05/06/2023 2:09 PM EST Bc Rascon MD LAB BLOOD ORDERABL ES Final Result Performing Organization Address [facility]/State/ZIP Co de Phone Number [facility] [address] [place] [phone] * Hepatitis C Antibody with Reflex to HCV, RNA, Quantitative, Real-Time PCR (07/10/2022 11:31 AM EDT) Hepatitis C Antibody NON-REACT DEZ NON-REACT DEZ [facility] Index 0.09 <1.00 [facility] Comment: HCV antibody was non-reactive. There is no laboratory evidence of HCV infection. In most cases, no further action is required. However, if recent HCV exposure is suspected, a test for HCV RNA (test code 93278) is suggested. For additional information please refer to http://education.Walk Score.Vringo/faq/CQG08r4 (This link is being provided for informational/ educational purposes only.) Blood Venous blood specimen / Unknown 07/10/2022 11:31 AM EDT 07/10/2022 11:32 AM EDT Narrative [facility] - 07/11/2022 5:06 AM EDT FASTING:NO FASTING: NO Bc Rascon MD LAB BLOOD ORDERABL ES Final Result [facility] [address] [facility], [place] [address] [facility] [address] [place] [address] from Last 3 Months or Most Recently Relevant to Health Maintenance Insurance MEDICARE Member Subscriber Plan / Payer (Ef fective 2022-Present) Name:Chris Zaragoza Member ID:[id number] Relation to Subscriber:Self Name:Chris Zaragoza Subscriber ID:[id number] Payer ID:STATE Group ID:Not on file Type:Medicare Address: [facility] [address] [address] [facility] Care Teams Loader Operator Relationship Specialty Start Date End Date Bc Hunter MD [address] [place] [phone] PCP - General Internal Medicine 01/03/19
--- OUTSIDE RECORDS SUMMARY | 2024-06-01 17:56 | XMS_ITS | Encounter Summary ---
Author Organization [employer] Address [address] [place] [address] 7 [place] [address] Care Team Providers Care Supervisor Beam Department Name Role Phone Bc Hunter MD Primary Care Prov ider Reason for Visit * Reason Onset Date Comments Med Refill 09/21/2022 Encounter Details Date Type Department Care Team (Late st Contact Info) Description 09/21/2022 Telephone [facility] CHC MED & PEDS [address] [place] [address] Bc Hunter MD 505 [place] [address] Med Refill Social History Tobacco Use Types [...] 09/23/2022 8:28 AM EDT Pt managed by [facility] coumadin clinic. Last INR of 3.1 noted 09/17/22. Will forward request for Rx to covering provider to review. * Telephone Encounter - Ping Nettles - 09/21/2022 10:39 AM EDT Tc from pt requesting med refill on Warfarin 1 mg tablet [id number] - [place], [place] - [address] [place] [address] Please sent to documented in this encounter Plan of Treatment Not on file documented as of this encounter Visit Diagnoses Diagnosis History of Coumadin therapy- Primary S/P aortic valve replacement Heart valve replaced by other means documented in this encounter Additional Health Concerns Assessment Noted Time PHQ-9 Depression Total Score: 0 07/11/19 23 11:26 AM EDT documented as of this encounter Care Teams Supervisor Beam Department Relationship Specialty Start Date End Date Bc Hunter MD [address] [place] [address] PCP - General Internal Medicine 01/03/19 documented as of this encounter
--- OUTSIDE RECORDS SUMMARY | 2024-06-01 17:56 | XMS_ITS | Encounter Summary ---
Author Organization [employer] Address [address] 7t [place] [address] Care Team Providers Care Janitorial Assistant Name Role Phone Bc Hunter MD [...] EST) Protime 31.8(H) 11.1 - 13.5 sec [facility] 05/12/2024 10:4 3 AM EST 05/12/2024 11:14 AM EST us Generic External Data Provider LAB BLOOD ORDERAB LES Final Result Performing Organization Address City/State/[facility] Co de Phone Number [facility] [address] [place] [phone] * (ABNORMAL) ~PT, ~INR - ANTI COAG CLINIC (05/12/2024 10:43 AM EST) Prothrombin Time INR 2.6(H) 0.9 - 1.1 [facility] Comment:METER #: [id number] TERNATIONAL NORMALIZED RATIO (INR) REFERENCE RANGES Reference [...] Provider LAB BLOOD ORDERAB LES Final Result [facility] [address] [place] [phone] documented in this encounter Visit Diagnoses Not on filedocumented in this encounter Additional Health Concerns Assessment Noted Time PHQ-9 Depression Total Score: 0 09/30/19 24 11:02 AM EDT documented as of this encounter Care Teams Janitorial Assistant Relationship Specialty Start Date End Date Bc Hunter MD [address] [place] [address] PCP - General Internal Medicine 01/03/19 documented as of this encounter
--- OUTSIDE RECORDS SUMMARY | 2024-06-01 17:56 | XMS_ITS | Encounter Summary ---
Author Organization [employer] Address [address] [facility] 7 [place] [address] Care Team Providers Care Accounts Clerk Name Role Phone Bc Hunter MD Primary Care Prov ider Reason for Visit * Reason Comments Med Refill Encounter Details Date Type Department Care Team ([facility] st Contact Info) Description 05/06/2024 Refill [facility] MEDICINE [address] [place] [address] Bc Hunter MD 505 [place], [place] [phone] Mixed hyperlipidemia Social History Tobacco Use Types [...] documented as of this encounter Care Teams Accounts Clerk Relationship Specialty Start Date End Date Bc Hunter MD [address] [place] [address] PCP - General Internal Medicine 01/03/19 documented as of this encounter
--- OUTSIDE RECORDS SUMMARY | 2024-06-01 17:56 | XMS_ITS | Encounter Summary ---
Author Organization [employer] Address [address] [place] [address] [address] [place] [address] Care Team Providers Care Final Dressing Cutter Name Role Phone Bc Hunter MD Primary Care Prov ider Reason for Referral * Consultation (Routine) - Authorized Specialty Diagnoses / Procedures Referred By Conteric t Referred To Contact Podiatry Diagnoses Onychomycosis Bc Hunter MD 505 [place] [address] Phone: tel: fax: Duc Dockery DPM [address] [facility] [address] [place] [address] Phone: tel: fax: Referral ID Status Reason Start Date Expiration Date Visits Requested Visits Authorized [id number] Authorized Specialty Services Required 05/21/2024 05/21/2025 1 1 Encounter Details Date Type Department Care Team (Late st Contact Info) Description 05/21/2024 Orders Only [facility] CHC MED & PEDS 505 [place] [address] Bc Hunter MD [address] [place], [place] [phone] Onychomycosis (Primary Dx) Social History Tobacco Use [...] documented as of this encounter Care Teams Final Dressing Cutter Relationship Specialty Start Date End Date Bc Hunter MD [address] [place] [address] PCP - General Internal Medicine 01/03/19 documented as of this encounter
--- OUTSIDE RECORDS SUMMARY | 2024-06-01 17:56 | XMS_ITS | Encounter Summary ---
Author Organization [facility] Address [address] 7t [place] [address] Care Team Providers Care Senior Information Security Architect Name Role Phone Bc Hunter MD Primary Care Prov ider Encounter Details Date Type Department Care Team (Late st Contact Info) Description 02/24/[address] [facility] MEDICINE [address] [place], [place] [phone] Bc Hunter MD 505 [place], [place] [phone] Social History Tobacco Use Types Packs/Day Years [...] on filedocumented in this encounter Care Teams Senior Information Security Architect Relationship Specialty Start Date End Date Bc Hunter MD [address] [place], [place] [phone] PCP - General Internal Medicine 01/03/19 documented as of this encounter
--- OUTSIDE RECORDS SUMMARY | 2024-06-01 17:56 | XMS_ITS | Encounter Summary ---
Author Organization [employer] Address [address] 7 [place] [address] Care Team Providers Care Quarrying Specialist Name Role Phone Bc Hunter MD Primary Care Prov ider Encounter Details Date Type Department Care Team (Late st Contact Info) Description 05/18/2022 Orders Only [facility] CHC MED & PEDS 505 [place], [place] [phone] Bc Hunter MD 505 [place], [place] [phone] S/P aortic valve replacement Social History Tobacco [...] means documented in this encounter Care Teams Quarrying Specialist Relationship Specialty Start Date End Date Bc Hunter MD 505 [place], [place] [phone] PCP - General Internal Medicine 01/03/19 documented as of this encounter
--- OUTSIDE RECORDS SUMMARY | 2024-06-01 17:56 | XMS_ITS | Encounter Summary ---
Author Organization [facility] Address [address] [place] [address] Phone Care Team Providers Care Bowling Ball Molder Name Role Phone Bc Yates Primary Care Provider [phone] Encounter Details Date Type Department Care Team (Late st Contact Info) Description 05/26/2021 Documentation Only [facility] [address] [place] [address] Trever Lopez MD [address] [place] [address] [place] [address] Social History Tobacco Use Types [...] Visit [facility] [address] [place] [address] Trever Lopez MD [address] [place] [address] [place] [address] documented as of this encounter Visit Diagnoses Not on filedocumented in this encounter Care Teams Bowling Ball Molder Relationship Specialty Start Date End Date Bc Yates PCP - General Internal Medicine 10/05/22 documented as of this encounter
--- OUTSIDE RECORDS SUMMARY | 2024-06-01 17:56 | XMS_ITS | Encounter Summary ---
Author Organization [email or web address] Address [address] [place] [address] 7 [place] [address] Care Team Providers Care Moving Worker Name Role Phone Bc Hunter MD Primary Care Prov ider Reason for Visit * Reason Comments Med Refill Encounter Details Date Type Department Care Team (Late st Contact Info) Description 10/25/2022 Refill [facility] CHC MED & PEDS [address] [place] [address] Bc Hunter MD 505 [place] [address] Social History Tobacco Use Types Packs/Day Years [...] documented as of this encounter Care Teams Moving Worker Relationship Specialty Start Date End Date Bc Hunter MD [address] [place], [place] [phone] PCP - General Internal Medicine 01/03/19 documented as of this encounter
--- OUTSIDE RECORDS SUMMARY | 2024-06-01 17:56 | XMS_ITS | Encounter Summary ---
Author Organization [employer] Address [address] [facility] 7 [place] [address] Care Team Providers Care Oliver Filter Operator Name Role Phone Bc Hunter MD Primary Care Prov ider Reason for Visit * Reason Onset Date Comments Med Refill 05/12/2022 Encounter Details Date Type Department Care Team (Late st Contact Info) Description 05/12/2022 Telephone [facility] MEDICINE 230 [place] [address] Bc Hunter MD 505 [place], [place] [phone] Med Refill Social History Tobacco Use Types [...] on filedocumented in this encounter Care Teams Oliver Filter Operator Relationship Specialty Start Date End Date Bc Hunter MD [address] [place] [address] PCP - General Internal Medicine 01/03/19 documented as of this encounter
--- OUTSIDE RECORDS SUMMARY | 2024-06-01 17:56 | XMS_ITS | Encounter Summary ---
Author Organization [employer] Address [address] 7t [place] [address] Care Team Providers Care Healthcare Representative Name Role Phone Bc Hunter MD [...] EST) Protime 23.9(H) 11.1 - 13.5 sec [facility] 05/19/2024 11:3 9 AM EST 05/19/2024 11:41 AM EST us Generic External Data Provider LAB BLOOD ORDERAB LES Final Result Performing Organization Address City/State/[facility] Co de Phone Number [facility] [address] [place] [phone] * (ABNORMAL) ~PT, ~INR - ANTI COAG CLINIC (05/19/2024 11:39 AM EST) Prothrombin Time INR 2.0(H) 0.9 - 1.1 [facility] Comment:METER #: [id number] TERNATIONAL NORMALIZED RATIO (INR) REFERENCE RANGES Reference [...] Provider LAB BLOOD ORDERAB LES Final Result [facility] [address] [place] [address] [phone] documented in this encounter Visit Diagnoses Not on filedocumented in this encounter Additional Health Concerns Assessment Noted Time PHQ-9 Depression Total Score: 0 09/30/19 24 11:02 AM EDT documented as of this encounter Care Teams Healthcare Representative Relationship Specialty Start Date End Date Bc Hunter MD [address] [place] [address] PCP - General Internal Medicine 01/03/19 documented as of this encounter
--- OUTSIDE RECORDS SUMMARY | 2024-06-01 17:56 | XMS_ITS | Encounter Summary ---
Author Organization [employer] Address [address] [facility] [address] 7t [place] [address] Care Team Providers Care Manager News Name Role Phone Bc Hunter MD Primary [...] EDT) Protime 23.6(H) 11.1 - 13.5 sec [facility] 06/01/2024 1:46 PM EDT 06/01/2024 1:47 PM EDT us Generic External Data Provider LAB BLOOD ORDERAB LES Final Result Performing Organization Address City/State/[facility] Co de Phone Number [facility] [address] [place] [phone] * (ABNORMAL) ~PT, ~INR - ANTI COAG CLINIC (06/01/2024 1:46 PM EDT) Prothrombin Time INR 2.0(H) 0.9 - 1.1 [facility] Comment:METER #: [id number] TERNATIONAL NORMALIZED RATIO (INR) REFERENCE RANGES Reference [...] Provider LAB BLOOD ORDERAB LES Final Result [facility] [address] [place] [address] [phone] documented in this encounter Visit Diagnoses Not on filedocumented in this encounter Additional Health Concerns Assessment Noted Time PHQ-9 Depression Total Score: 0 09/30/19 24 11:02 AM EDT documented as of this encounter Care Teams Manager News Relationship Specialty Start Date End Date Bc Hunter MD [address] [place] [address] PCP - General Internal Medicine 01/03/19 documented as of this encounter
--- OUTSIDE RECORDS SUMMARY | 2024-06-01 17:56 | XMS_ITS | Encounter Summary ---
Author Organization [employer] Address [address] [facility] [address] [facility] [address] 7 [place] [address] Care Team Providers Care Fishing Rod Mechanic Name Role Phone Bc Hunter MD Primary Care Prov ider Reason for Visit * Reason Comments Med Refill Encounter Details Date Type Department Care Team ([facility] st Contact Info) Description 05/18/2023 Refill [facility] CHC MED & PEDS 505 [place] [address] Bc Hunter MD [address] [place] [address] Social History Tobacco Use Types Packs/Day Years [...] documented as of this encounter Care Teams Fishing Rod Mechanic Relationship Specialty Start Date End Date Bc Hunter MD [address] [place] [address] PCP - General Internal Medicine 01/03/19 documented as of this encounter
--- OUTSIDE RECORDS SUMMARY | 2024-06-01 17:56 | XMS_ITS | Encounter Summary ---
Author Organization [employer] Address [address] [facility] 7 [place] [address] Care Team Providers Care Slip Cover Operator Name Role Phone Bc Hunter MD Primary Care Prov ider Encounter Details Date Type Department Care Team (Late st Contact Info) Description 07/16/2022 Telephone [facility] CHC MED & PEDS 505 [place], [place] [phone] Bc Hunter MD 505 [place] [address] Social History Tobacco Use Types Packs/Day Years [...] swelling. Right side. Please contact Lori @ [phone] if additional labs are requested by PCP [...] swelling. Right side. Please contact Lori @ [phone] if additional labs are requested by PCP [...] documented as of this encounter Care Teams Slip Cover Operator Relationship Specialty Start Date End Date Bc Hunter MD [address] [place] [address] PCP - General Internal Medicine 01/03/19 documented as of this encounter
--- OUTSIDE RECORDS SUMMARY | 2024-06-01 17:56 | XMS_ITS | Encounter Summary ---
Author Organization [employer] Address [address] 7t [place] [address] Care Team Providers Care Geriatric Physical Therapist Name Role Phone Bc Hunter MD Primary Care Prov ider Encounter Details Date Type Department Care Team (Late st Contact Info) Description 09/20/2023 Orders Only [facility] CHC MED & PEDS 505 [place], [place] [phone] Bc Hunter MD 505 [place] [address] Social History Tobacco Use Types Packs/Day Years [...] documented as of this encounter Care Teams Geriatric Physical Therapist Relationship Specialty Start Date End Date Bc Hunter MD [address] [place] [address] PCP - General Internal Medicine 01/03/19 documented as of this encounter
--- OUTSIDE RECORDS SUMMARY | 2024-06-01 17:56 | XMS_ITS | Encounter Summary ---
Author Organization [employer] Address [address] [facility] 7 [place] [address] Care Team Providers Care Automatic Oven Operator Name Role Phone Bc Hunter MD Primary Care Prov ider Reason for Visit * Reason Onset Date Comments Med Refill 05/15/2022 Encounter Details Date Type Department Care Team ([facility] st Contact Info) Description 05/15/2022 Telephone [facility] CHC MED & PEDS 505 [place] [address] Bc Hunter MD 505 [place] [address] Med Refill Social History Tobacco Use Types [...] a max daily dose. Call placed to [facility] Coumadin clinic. Per Della, pt is currently [...] 11:54 AM EST Tc from Amy with [facility] Pharm[facility] requesting some kinds of specific directions for warfarin (Coumadin) 2 MG tablet If any question please contact amy at [phone] documented in this encounter Plan of Treatment Not on file documented as of this encounter Visit Diagnoses Not on filedocumented in this encounter Care Teams Automatic Oven Operator Relationship Specialty Start Date End Date Bc Hunter MD [address] [place] [address] PCP - General Internal Medicine 01/03/19 documented as of this encounter
--- OUTSIDE RECORDS SUMMARY | 2024-06-01 17:56 | XMS_ITS | Clinical Summary ---
Author Organization [address] [facility] Address [address] [place] [address] Phone Care Team Providers Care Guest Services Agent Name Role Phone Bc Hunter Primary Care Provide r Medical History Medical History Date Comments Heart valve replaced by other means 06/29/2011 DX:Heart valve replaced by other means Asthma 06/29/2011 DX:Asthma Tobacco abuse 06/29/2011 DX:Tobacco abuse Schizophrenia ([facility]) 06/29/2011 DX:Schiz ophrenia ([facility]) Unspecified hypothyroidism 06/29/2011 DX:Un specified [...] Info) Description 06/07/2024 11:[address] [facility] PET Scan [address] [place] [address] Health Maintenance Due Date Last [...] Insurance MEDICARE MEDICAID - [place] Care Teams Guest Services Agent Relationship Specialty Start Date End Date Bc Hunter [address] [place] [address] PCP - General Internal Medicine 04/13/24
--- OUTSIDE RECORDS SUMMARY | 2024-06-01 17:56 | XMS_ITS | Encounter Summary ---
Author Organization [facility] Address [address] [place] [address] Phone Care Team Providers Care Dental Surgeon Name Role Phone Bc Yates Primary Care Provider [phone]- [phone] Reason for Visit * Reason Comments Med Refill Encounter Details Date Type Department Care Team (Late st Contact Info) Description 01/13/2022 Refill [facility] [address] [place] [address] Trever Lopez MD [address] [facility] [place] [address] Social History Tobacco Use Types [...] Visit [facility] [address] [facility] [place] [address] Trever Lopez MD [address] [facility] [place] [address] documented as of this encounter Visit Diagnoses Not on filedocumented in this encounter Care Teams Dental Surgeon Relationship Specialty Start Date End Date Bc Yates PCP - General Internal Medicine 10/05/22 documented as of this encounter
== END 2024-06-01 14:29 | disposition home or self-care (01) ==
LOC: HO.HPS 14:06
PROVIDERS: PCP Internal Medicine; Visit Provider Internal Medicine Pulmonary Disease
DX: J44.9 Chronic obstructive pulmonary disease, unspecified (principal); R91.1 Solitary pulmonary nodule
CPT/HCPCS: 99214

== ENCOUNTER 2024-06-13 10:57 | Outpatient (AMB) | payer MEDICARE, MEDICAID, SELFPAY ==
--- NOTE | 2024-06-13 11:10 | MHC.OFFVISCO ---
Intake Intake Visit Reasons: Anticoagulation Allergies No Known Allergies Allergy (Mild, Verified 06/13/24 11:01) NOT APPLICABLE Medication List - Last Reconciled 06/13/24 by Nivia Beaver RN albuterol sulfate 90 mcg/actuation (Ventolin HFA) 1 puff inhalation RQ4H PRN atorvastatin 40 mg PO BEDTIME benztropine 1 mg PO BID carbamide peroxide (Debrox) 5 DROPS EACH EAR EVERY 2 WEEKS cholecalciferol (vitamin D3) (Vitamin D3) 25 mcg PO QAM dicyclomine 20 mg PO BID ferrous sulfate 324 mg PO DAILY [FLUCINOLONE TOPICAL DAILY ] levothyroxine 25 mcg PO DAILY@0600 loratadine 10 mg PO DAILY magnesium oxide 400 mg PO BIDPC multivitamin with folic acid 400 mcg (Daily-Stanley (with folic acid)) 1 tab PO DAILY pantoprazole 40 mg PO BID phenazopyridine 200 mg PO TID PRN revefenacin (Yupelri) 175 mcg (3 mL) inhalation DAILY 30 days risperidone (Risperdal) 2 mg PO BID tamsulosin 0.4 mg PO BEDTIME valproic acid 1000mg orally daily; warfarin See Protocol 2 mg orally 4MG DAILY OR DIRECTED; 4MG DAILY OR DIRECTED Nursing Note Pt to ACS with use of a cane In a pleasant mood. Pocket full of rocks. INR: 2.9 in therapeutic range of 2-3 Medications and supplements reviewed No changes in health, diet, medications, or supplements, Denies any signs and symptoms of bleeding or bruising or clotting. Bleeding, bruising, clotting discussed Dose: keep same dose of 4mg X 4 days and 2mg X 3 days F/U INR: 2 weeks Patient verbalizes understanding of instructions given Anti-Coag Initial Assessment Social Hx Patient Tobacco Use Status: Refuse Tobacco use screen alcohol intake: never Coding Level of Care Code Est Patient Level 1 Diagnoses Current use of anticoagulant therapy Z79.01 Results AMB INR Fingerstick AMB INR Fingerstick 2.9 Last Edit by Nivia Beaver RN on 06/13/24 11:07 interface delay Assessment & Plan Assessment & Plan (1) Current use of anticoagulant therapy: Code(s): Z79.01 - half-way (current) use of anticoagulants Category: Medical
[2024-06-13 11:17] LABS: Prothrombin Time Whole Bld POC 35.1 sec (11.1-13.5); ~PT, ~INR - Anti Coag Clinic 2.9 (0.9-1.1)
--- OUTSIDE RECORDS SUMMARY | 2024-06-13 13:24 | XMS_ITS | Encounter Summary ---
Author Organization [employer] Address [address] [facility] [address] [facility] [address] 7t [place] [address] Care Team Providers Care Building Performance Consultant Name Role Phone Bc Hunter MD [...] EST) Protime 23.9(H) 11.1 - 13.5 sec [facility] 05/19/2024 11:3 9 AM EST 05/19/2024 11:41 AM EST us Generic External Data Provider LAB BLOOD ORDERAB LES Final Result Performing Organization Address City/State/[facility] Co de Phone Number [facility] [address] [place] [phone] * (ABNORMAL) ~PT, ~INR - ANTI COAG CLINIC (05/19/2024 11:39 AM EST) Prothrombin Time INR 2.0(H) 0.9 - 1.1 [facility] Comment:METER #: [id number] TERNATIONAL NORMALIZED RATIO (INR) REFERENCE RANGES Reference [...] Provider LAB BLOOD ORDERAB LES Final Result [facility] [address] [place] [address] [phone] documented in this encounter Visit Diagnoses Not on filedocumented in this encounter Additional Health Concerns Assessment Noted Time PHQ-9 Depression Total Score: 0 09/30/19 24 11:02 AM EDT documented as of this encounter Care Teams Building Performance Consultant Relationship Specialty Start Date End Date Bc Hunter MD [address] [place] [address] PCP - General Internal Medicine 01/03/19 documented as of this encounter
--- OUTSIDE RECORDS SUMMARY | 2024-06-13 13:24 | XMS_ITS | Encounter Summary ---
Author Organization [employer] Address [address] 7 [place] [address] Care Team Providers Care Technology Resource Teacher Name Role Phone Bc Hunter MD Primary Care Prov ider Reason for Visit * Reason Comments Med Refill Encounter Details Date Type Department Care Team ([facility] st Contact Info) Description 05/18/2023 Refill [facility] CH[facility] MED & PEDS [address] [place] [address] Bc Hunter MD 505 [place] [address] Social History Tobacco Use Types Packs/Day Years [...] documented as of this encounter Care Teams Technology Resource Teacher Relationship Specialty Start Date End Date Bc Hunter MD [address] [place] [address] PCP - General Internal Medicine 01/03/19 documented as of this encounter
--- OUTSIDE RECORDS SUMMARY | 2024-06-13 13:24 | XMS_ITS | Encounter Summary ---
Author Organization [employer] Address [address] [place] [address] 7 [place] [address] Care Team Providers Care Computed Tomography Technologist Name Role Phone Bc Hunter MD Primary Care Prov ider Reason for Visit * Reason Onset Date Comments Med Refill 09/21/2022 Encounter Details Date Type Department Care Team (Late st Contact Info) Description 09/21/2022 Telephone [facility] MED & PEDS [address] [place] [address] Bc Hunter MD 505 [place] [address] Med Refill Social History Tobacco Use Types [...] 09/23/2022 8:28 AM EDT Pt managed by [facility] coumadin clinic. Last INR of 3.1 noted 09/17/22. Will forward request for Rx to covering provider to review. * Telephone Encounter - Ping Nettles - 09/21/2022 10:39 AM EDT Tc from pt requesting med refill on Warfarin 1 mg tablet [id number] - [place], [place] - [address] [place] [address] Please sent to documented in this encounter Plan of Treatment Not on file documented as of this encounter Visit Diagnoses Diagnosis History of Coumadin therapy- Primary S/P aortic valve replacement Heart valve replaced by other means documented in this encounter Additional Health Concerns Assessment Noted Time PHQ-9 Depression Total Score: 0 07/11/19 23 11:26 AM EDT documented as of this encounter Care Teams Computed Tomography Technologist Relationship Specialty Start Date End Date Bc Hunter MD [address] [place] [phone] PCP - General Internal Medicine 01/03/19 documented as of this encounter
--- OUTSIDE RECORDS SUMMARY | 2024-06-13 13:24 | XMS_ITS | Encounter Summary ---
Author Organization [employer] Address [address] 7[address] [place] [address] Care Team Providers Care Sap Bw Architect Name Role Phone Bc Hunter MD Primary Care Prov ider Encounter Details Date Type Department Care Team (Late st Contact Info) Description 06/13/2024 Orders Only GENERIC EXTERNAL DATA DEPARTMENT Provider, [...] Comments PROTHROMBIN TIME WHOLE BLD POC Routine 06/13/2024 11:05 AM EDT ~PT, ~INR - ANTI COAG CLINIC Routine 06/13/2024 11:05 AM EDT documented in this encounter Results * (ABNORMAL) PROTHROMBIN TIME WHOLE BLD POC (06/13/2024 11:05 AM EDT) Protime 35.1(H) 11.1 - 13.5 sec [facility] 06/13/2024 11:0 5 AM EDT 06/13/2024 11:17 AM EDT us Generic External Data Provider LAB BLOOD ORDERAB LES Final Result Performing Organization Address City/State/[facility] Co de Phone Number [facility] [address] [place] [phone] * (ABNORMAL) ~PT, ~INR - ANTI COAG CLINIC (06/13/2024 11:05 AM EDT) Prothrombin Time INR 2.9(H) 0.9 - 1.1 [facility] Comment:METER #: [id number] TERNATIONAL NORMALIZED RATIO (INR) REFERENCE RANGES Reference RangeFor patients not on anticoagulant therapy: 0.9 - 1.1INR ranges for oral anticoagulanttherapy:For prevention and treatment of venous thrombosis and pulmonary embolism: 2.0 - 3.0For acute myocardial infarction with aspirin therapy: 2.0 - 3.0For acute myocardial infarction without aspirin therapy: 3.0 - 4.0For patients with mechanical prosthetic heart valves: 2.5 - 3.5 06/13/2024 11:0 5 AM EDT 06/13/2024 11:17 AM EDT us Generic External Data Provider LAB BLOOD ORDERAB LES Final Result [facility] [address] [place] [phone] [phone] documented in this encounter Visit Diagnoses Not on filedocumented in this encounter Additional Health Concerns Assessment Noted Time PHQ-9 Depression Total Score: 0 09/30/19 24 11:02 AM EDT documented as of this encounter Care Teams Sap Bw Architect Relationship Specialty Start Date End Date Bc Hunter MD [address] [place] [address] PCP - General Internal Medicine 01/03/19 documented as of this encounter
--- OUTSIDE RECORDS SUMMARY | 2024-06-13 13:24 | XMS_ITS | Encounter Summary ---
Author Organization [employer] Address [address] [facility] 7 [place] [address] Care Team Providers Care Respite Worker Name Role Phone Bc Hunter MD Primary Care Prov ider Reason for Visit * Reason Onset Date Comments Med Refill 05/15/2022 Encounter Details Date Type Department Care Team ([facility] st Contact Info) Description 05/15/2022 Telephone [facility] CHC MED & PEDS [address] [place] [address] Bc Hunter MD 505 [place] [address] Med Refill Social History Tobacco Use Types [...] daily dose. Call placed to [facility]mad[facility]. Per Della, pt is currently [...] 11:54 AM EST Tc from Amy with [facility] Pharmacy requesting some kinds of specific directions for warfarin (Coumadin) 2 MG tablet If any question please contact amy at [phone] documented in this encounter Plan of Treatment Not on file documented as of this encounter Visit Diagnoses Not on filedocumented in this encounter Care Teams Respite Worker Relationship Specialty Start Date End Date Bc Hunter MD [address] [place] [phone] PCP - General Internal Medicine 01/03/19 documented as of this encounter
--- OUTSIDE RECORDS SUMMARY | 2024-06-13 13:24 | XMS_ITS | Encounter Summary ---
Author Organization [employer] Address [address] 7t [place] [address] Care Team Providers Care Route Salesman Name Role Phone Bc Hunter MD Primary Care Prov ider Reason for Visit * Reason Comments Med Change Request Encounter Details Date Type Department Care Team ([facility] Contact Info) Description 07/19/2023 Refill [facility] CHC MED & PEDS [address] [place] [address] Oralia Mazariegos FNP 505 [place] [address] Social History Tobacco Use Types Packs/Day Years [...] documented as of this encounter Care Teams Route Salesman Relationship Specialty Start Date End Date Bc Hunter MD [address] [place] [address] PCP - General Internal Medicine 01/03/19 documented as of this encounter
--- OUTSIDE RECORDS SUMMARY | 2024-06-13 13:24 | XMS_ITS | Encounter Summary ---
Author Organization [employer] Address [address] 7t [place] [address] Care Team Providers Care Rfid Manager Name Role Phone Bc Hunter MD [...] EDT) Protime 23.6(H) 11.1 - 13.5 sec [facility] 06/01/2024 1:46 PM EDT 06/01/2024 1:47 PM EDT us Generic External Data Provider LAB BLOOD ORDERAB LES Final Result Performing Organization Address City/State/[facility] Co de Phone Number [facility] [address] [place] [phone] * (ABNORMAL) ~PT, ~INR - ANTI COAG CLINIC (06/01/2024 1:46 PM EDT) Prothrombin Time INR 2.0(H) 0.9 - 1.1 [facility] Comment:METER #: [id number] TERNATIONAL NORMALIZED RATIO (INR) REFERENCE RANGES Reference [...] Final Result [facility] [address] [place] [phone] documented in this encounter Visit Diagnoses Not on filedocumented in this encounter Additional Health Concerns Assessment Noted Time PHQ-9 Depression Total Score: 0 09/30/19 24 11:02 AM EDT documented as of this encounter Care Teams Rfid Manager Relationship Specialty Start Date End Date Bc Hunter MD [address] [place] [phone] PCP - General Internal Medicine 01/03/19 documented as of this encounter
--- OUTSIDE RECORDS SUMMARY | 2024-06-13 13:24 | XMS_ITS | Encounter Summary ---
Author Organization [employer] Address [address] [facility] 7 [place] [address] Care Team Providers Care Pillow Cleaner Name Role Phone Bc Hunter MD Primary Care Prov ider Reason for Visit * Reason Onset Date Comments Nurse Triage 05/26/2023 Encounter Details Date Type Department Care Team (Late st Contact Info) Description 05/26/2023 Telephone [facility] MEDICINE [address] [place] [address] Bc Hunter MD 505 [place], [place] [phone] Nurse Triage Social History Tobacco Use Types [...] AM EST Triage call Pt is in longterm, Krystin Sepulveda taking call and consent is signed by Pt for staff to speak . Pt has had some changes. Pt decided to stop all psyche medications and MD Ward Myers,discontinued them. (Stop date unknown) Pt has since that time decreased eating, appetite is poor. Pt weight yesterday at eeo officer apt is 173lbs. Pt was said to be around 202lbs regularly. Pt clothes are fitting very loosely now. Pt also wanted to stop coumadin but, eeo officer instructed that wouldn't be good to do [...] acuity questions The caller accepted this outcome [phone] documented in this encounter Plan of Treatment Not on file documented as of this encounter Visit Diagnoses Not on filedocumented in this encounter Additional Health Concerns Assessment Noted Time PHQ-9 Depression Total Score: 0 07/11/19 23 11:26 AM EDT documented as of this encounter Care Teams Pillow Cleaner Relationship Specialty Start Date End Date Bc Hunter MD [address] [place] [phone] PCP - General Internal Medicine 01/03/19 documented as of this encounter
--- OUTSIDE RECORDS SUMMARY | 2024-06-13 13:24 | XMS_ITS | Encounter Summary ---
Author Organization [facility] Address [address] [place] [address] Phone Care Team Providers Care Tobacco Roller Name Role Phone Bc Yates Primary Care Provider [phone] Encounter Details Date Type Department Care Team (Late Contact Info) Description 06/06/2024 Telephone [facility] [address] [place] [address] Sasha Bhatt [address] [place] [address] Social History Tobacco Use Types Packs/Day Years Used Date Smoking Tobacco: Smoker, Current Status Unknown Sex and Gender Information Value Date Recorded Sex Assigned at Not on file Legal Sex Male 4:36 PM EST Gender Identity Not on file Sexual Orientation Not on file documented as of this encounter Miscellaneous Notes * Telephone Encounter - Sasha Bhatt - 06/06/2024 9:39 AM EDT Made contact with Krystin via the senior living that Chris resides at and made her aware that it has become necessary to reschedule Chris's appointment on 09/19 due to the provider being away. Appointment rescheduled to 11/07. Encouraged Krystin to contact the office if anything comes up in between. Krystin verbalized an understanding. documented in this encounter Plan of Treatment Upcoming Encounters Date Type Department Care Team (Late Contact Info) Description 11/07/2024 2:00 PM EDT Office Visit [facility] [address] [place] [address] Trever Lopez MD [address] [place] [address] documented as of this encounter Visit Diagnoses Not on filedocumented in this encounter Care Teams Tobacco Roller Relationship Specialty Start Date End Date Bc Yates PCP - General Internal Medicine 10/05/22 documented as of this encounter
--- OUTSIDE RECORDS SUMMARY | 2024-06-13 13:24 | XMS_ITS | Clinical Summary ---
Author Organization [facility] [place], Address [address] [place] [address] [place] [address] Phone Care Team Providers Care Csr Name Role Phone YatesBc Primary Care Provider [phone] Allergies No known active allergies Medications D3-50 1.25 MG (38542 UT) capsule TAKE 1 CAPSULE BY MOUTH [...] 03/13/2021 Hyponatremia 03/10/2019 03/13/2021 Hypothyroidism 03/10/2019 03/13/2021 Encounters Date Type Department Care Team Description 06/06/2024 Telephone [facility], [address] [address] Sasha Bhatt from Last 3 Months Family History Medical History Relation Comments Diabetes [...] Care Team (Late st Contact Info) Description 11/07/2024 2:00 PM EDT Office Visit [facility], [address] [address] Trever Lopez MD [address] [place] [address] Health Maintenance Due Date Last Done Comments Colorectal Cancer Screening: Annual FOBT 2001 Colorectal Cancer Screening: Colonoscopy 2001 Colorectal Cancer Screening: Sigmoidoscopy 2001 Pneumococcal Vaccine: 65+ Ye ars (2 of 2 - PCV) 11/23/2015 11/22/2014 Influenza Vaccine (#1) 2023 Hepatitis B Vaccine Aged Out No longe r eligible based on patient's age to complete this topic Insurance MEDICARE MEDICAID [place] Care Teams Csr Relationship Specialty Start Date End Date Bc Yates PCP - General Internal Medicine 10/05/22
--- OUTSIDE RECORDS SUMMARY | 2024-06-13 13:24 | XMS_ITS | Encounter Summary ---
Author Organization [employer] Address [address] [place] [address] 7 [place] [address] Care Team Providers Care Solvent Process Extractor Operator Name Role Phone Bc Hunter MD Primary Care Prov ider Reason for Visit * Reason Comments Med Refill Encounter Details Date Type Department Care Team (Late st Contact Info) Description 10/25/2022 Refill [facility] CHC MED & PEDS [address] [place] [address] Bc Hunter MD [address] [place] [address] Social History Tobacco Use Types Packs/Day Years [...] documented as of this encounter Care Teams Solvent Process Extractor Operator Relationship Specialty Start Date End Date Bc Hunter MD [address] [place], [place] [phone] PCP - General Internal Medicine 01/03/19 documented as of this encounter
--- OUTSIDE RECORDS SUMMARY | 2024-06-13 13:24 | XMS_ITS | Encounter Summary ---
Author Organization [employer] Address [address] [facility] 7 [place] [address] Care Team Providers Care Cell Manager Name Role Phone Bc Hunter MD Primary Care Prov ider Reason for Visit * Reason Comments Med Refill Encounter Details Date Type Department Care Team ([facility] st Contact Info) Description 05/21/2024 Refill [facility] MEDICINE [address] [place] [address] Bc Hunter MD 505 [place], [place] [phone] Social History Tobacco Use Types Packs/Day Years [...] documented as of this encounter Care Teams Cell Manager Relationship Specialty Start Date End Date Bc Hunter MD [address] [place] [phone] PCP - General Internal Medicine 01/03/19 documented as of this encounter
--- OUTSIDE RECORDS SUMMARY | 2024-06-13 13:24 | XMS_ITS | Encounter Summary ---
Author Organization [employer] [facility] Address [address] [facility] [facility] [address] 7[address] [place] [address] Care Team Providers Care Assembly Mechanic Name Role Phone Bc Hunter MD Primary Care Prov ider Encounter Details Date Type Department Care Team (Late st Contact Info) Description 02/24/2022 Telephone [facility] MEDICINE [address] [place], [place] [phone] Bc Hunter MD [address] [place], [place] [phone] Social History Tobacco Use Types Packs/Day Years [...] on filedocumented in this encounter Care Teams Assembly Mechanic Relationship Specialty Start Date End Date Bc Hunter MD [address] [place], [place] [phone] PCP - General Internal Medicine 01/03/19 documented as of this encounter
--- OUTSIDE RECORDS SUMMARY | 2024-06-13 13:24 | XMS_ITS | Encounter Summary ---
Author Organization [employer] Address [address] [facility] 7 [place] [address] Care Team Providers Care Pipeman Name Role Phone Bc Hunter MD Primary Care Prov ider Reason for Visit * Reason Onset Date Comments Med Refill 05/12/2022 Encounter Details Date Type Department Care Team (Late st Contact Info) Description 05/12/2022 Telephone [facility] MEDICINE [address] [place] [address] Bc Hunter MD 505 [place], [place] [phone] Med Refill Social History Tobacco Use Types [...] on filedocumented in this encounter Care Teams Pipeman Relationship Specialty Start Date End Date Bc Hunter MD [address] [place] [address] PCP - General Internal Medicine 01/03/19 documented as of this encounter
--- OUTSIDE RECORDS SUMMARY | 2024-06-13 13:24 | XMS_ITS | Encounter Summary ---
Author Organization [employer] Address [address] [facility] 7 [place] [address] Care Team Providers Care Junior Php Developer Name Role Phone Bc Hunter MD Primary Care Prov ider Encounter Details Date Type Department Care Team (Late st Contact Info) Description 07/16/[address] [facility] CHC MED & PEDS [address] [place], [place] [phone] Bc Hunter MD 505 [place] [address] Social History Tobacco Use Types Packs/Day Years [...] swelling. Right side. Please contact Lori @ [phone] if additional labs are requested by PCP [...] swelling. Right side. Please contact Lori @ [phone] if additional labs are requested by PCP [...] documented as of this encounter Care Teams Junior Php Developer Relationship Specialty Start Date End Date Bc Hunter MD [address] [place] [id number] PCP - General Internal Medicine 01/03/19 documented as of this encounter
--- OUTSIDE RECORDS SUMMARY | 2024-06-13 13:24 | XMS_ITS | Clinical Summary ---
Author Organization [employer] Address [address] [facility] 7t [place] [address] Care Team Providers Care Mask Designer Name Role Phone Bc Hunter MD [...] THE MORNING 90 tablet 3 024 Active Trelegy Ellipta 100-62.5-25 MCG/ACT aerosol [...] wheezing. 18 g 1 024 2024 Active atorvastatin (Lipitor) 40 MG tabletIndications :Mixed [...] EVERY MORNING 90 tablet 3 025 Active loratadine (Claritin) 10 MG tablet TAKE 1 TABLET (10 MG) BY MOUTH DAILY NEEDED FOR ALLERGIES 30 tablet 2 025 Active ferrous sulfate 325 (65 Fe) MG tablet Take 1 tablet (325 mg) by mouth with breakfast. 90 tablet 3 024 2024 Discontinued loratadine (Claritin) 10 MG tablet Take 1 tablet (10 mg) by mouth if needed each day for allergies. 30 tablet 2 024 2024 Discontinued Active Problems Problem Noted Date Diagnosed Date Nodule of left lung 04/26/2024 Assessment & Plan (04/26/2024 11:54 AM EST): Will order a follow up LDCT scan, wad lubricator was told to contact pulmonology office Seborrheic dermatitis of scalp 01/26/2023 Assessment & Plan (07/20/2023 8:52 PM EDT): Followed by [facility] Derm clinic Refill of topical ketoconazole [...] valve replacement 04/28/2022 Overview (07/20/2023): Followed by [facility] Assessment & Plan (07/20/2023 8:46 PM EDT): Cardiology consult scheduled 07/20/23 No reported hx of bleeding, no reported chest pain/shortness of breath Discussed with PCP and [facility] (Lori FLETCHER). Plan to bridge pt from Eliquis to Coumadin. May DC Eliquis once Coumadin therapeutic Coumadin dosinmg on Wednesday and Wednesday 4mg all other days of the week Plan: [facility] Coagulation clinic to reach out to fpc to schedule INR check and re-start on [...] Other schizophrenia 09/22/2011 Overview (07/20/2023): Living in Detention Assessment & Plan (07/30/2023 12:17 AM EDT): [...] Encounters Date Type Department Care Team Description 06/13/2024 Orders Only GENERIC EXTERNAL DATA DEPARTMENT Provider, Generic External Data 06/04/2024 Refill [facility] [address] [place] [address] Bc Hunter MD 06/01/2024 Orders Only GENERIC EXTERNAL DATA DEPARTMENT Provider, Generic External Data 05/21/2024 Orders Only [facility] [address] [place] [address] Bc Hunter MD Onychomycosis (Primary Dx) 05/21/2024 Refill [facility] [address] [place] [address] Bc Hunter MD 05/19/2024 Orders Only GENERIC EXTERNAL DATA DEPARTMENT Provider, Generic External Data 05/12/2024 Orders Only GENERIC EXTERNAL DATA DEPARTMENT Provider, Generic External Data 05/06/2024 Refill [facility] [address] [place] [address] Bc Hunter MD Mixed hyperlipidemia 05/01/2024 Orders Only GENERIC EXTERNAL DATA DEPARTMENT Provider, Generic External Data 04/27/2024 Telephone [facility] [address] [place] [address] Bc Hunter MD Lung screening 04/26/2024 11:15 AM EST Office Visit [facility] [address] [place] [address] Bc Hunter MD Acquired hypothyroidism (Primary Dx); Other iron deficiency anemia; Nodule of left lung 04/26/2024 Travel 04/24/2024 Orders Only GENERIC EXTERNAL DATA DEPARTMENT Provider, Generic External Data 04/19/2024 Travel 04/17/2024 Orders Only GENERIC EXTERNAL DATA DEPARTMENT Provider, Generic External Data 04/10/2024 Orders Only GENERIC EXTERNAL DATA DEPARTMENT Provider, Generic External Data 04/05/2024 Telephone [facility] [address] [place] [address] Bc Hunter MD Anticoagulation 04/05/2024 Orders Only GENERIC EXTERNAL DATA DEPARTMENT Provider, Generic External Data 03/29/2024 Orders Only GENERIC EXTERNAL DATA DEPARTMENT Provider, Generic External Data 03/19/2024 Refill [facility] [address], [place] [phone] Oralia Mazariegos FNP S/P aortic valve replacement 03/19/2024 Refill [facility] [address] [place], [place] [phone] Zafar Richard MD Mixed hyperlipidemia from Last [...] [facility]IC Routine 06/13/2024 11:05 AM EDT PROTHROMBIN TIME WHOLE BLD POC Routine 06/01/2024 [...] WHOLE BLD POC (06/13/2024 11:05 AM EDT) Only the most recent of10 resultswithin the time period is included. Protime 35.1(H) 11.1 - 13.5 sec [facility] 06/13/2024 11:0 5 AM EDT 06/13/2024 11:17 AM EDT Generic External Data Provider LAB BLOOD ORDERAB LES Final Result Performing Organization Address [facility] Co de Phone Number [facility] [address] [place] [phone] * (ABNORMAL) ~PT, ~INR - ANTI COAG CLINIC (06/13/2024 11:05 AM EDT) Only the most recent of10 resultswithin the time period is included. Prothrombin Time INR 2.9(H) 0.9 - 1.1 [facility] Comment:METER #: [id number] TERNATIONAL NORMALIZED RATIO (INR) REFERENCE RANGES Reference [...] LES Final Result Performing Organization Address [facility] Co de Phone Number [facility] [address] [place] [address] [phone] * Lipid Panel, Standard (05/06/2023 11:48 AM EST) Triglycerides 61 <150 mg/dL [facility] Comment:Desirable Triglyceri de: less than 150 mg/dLBorderline High Triglyceride 150-199 mg/dLHigh Triglyceride: 200-499 mg/dLVery High Triglyceride: greater than or equal to 5OO mg/dL Cholesterol 166 <200 mg/dL [facility] Comment:Desirable Cholestero l: less than 200 mg/dLBorderline High Cholesterol: 200-239 mg/dLHigh Cholesterol: greater than 239 mg/dL LDL Cholesterol Calculated 94 <100 mg/dL [facility] Comment:Desirable LDL: less than 100 mg/dLNear Optimal/Above Optimal LDL: 110- 129 mg/dLBorderline High LDL: 130-159 mg/dLHigh LDL: 160-189 mg/dLVery High LDL: greater than or equal to 190 mg/dL HDL Cholesterol 60 >40 mg/dL [facility] Comment:Desirable HDL: great er than 40 mg/dL Note: This HDL assay may give artificially low results in patients with liver disease. Blood Venous blood specimen / Unknown 05/06/2023 11:48 AM EST 05/06/2023 2:09 PM EST Bc Rascon MD LAB BLOOD ORDERABL ES Final Result [facility] [address] [place] [phone] * Hepatitis C Antibody with Reflex to HCV, RNA, Quantitative, Real-Time PCR (07/10/2022 11:31 AM EDT) Hepatitis C Antibody NON-REACT DEZ NON-REACT DEZ [facility] Index 0.09 <1.00 [facility] Comment: HCV antibody was non-reactive. There is no laboratory evidence of HCV infection. In most cases, no further action is required. However, if recent HCV exposure is suspected, a test for HCV RNA (test code 23744) is suggested. For additional information please refer to http://education.Cloudike/faq/PUC65c8 (This link is being provided for informational/ educational purposes only.) Blood Venous blood specimen / Unknown 07/10/2022 11:31 AM EDT 07/10/2022 11:32 AM EDT Narrative [facility] - 07/11/2022 5:06 AM EDT FASTING:NO FASTING: NO Bc Rascon MD LAB BLOOD ORDERABL ES Final Result [facility] [address], [place] [address] [employer] [facility] [address] [place] [phone] from Last 3 Months or Most Recently Relevant to Health [place] [id number] [facility] STAND[facility] Care Teams Mask Designer Relationship Specialty Start Date End Date YatesBc Ledezma MD [address] [place] [phone] PCP - General Internal Medicine 01/03/19
--- OUTSIDE RECORDS SUMMARY | 2024-06-13 13:24 | XMS_ITS | Encounter Summary ---
Author Organization [employer] Address [address] [facility] 7 [place] [address] Care Team Providers Care Well Logging Mud Analysis Captain Name Role Phone Bc Hunter MD Primary Care Prov ider Reason for Visit * Reason Comments Med Refill Encounter Details Date Type Department Care Team ([facility] st Contact Info) Description 06/04/2024 Refill [facility] [address] [place] [address] Bc Hunter MD [address] [place], [place] [phone] Social History Tobacco Use Types Packs/Day Years [...] documented as of this encounter Care Teams Well Logging Mud Analysis Captain Relationship Specialty Start Date End Date Bc Hunter MD [address] [place] [phone] PCP - General Internal Medicine 01/03/19 documented as of this encounter
--- OUTSIDE RECORDS SUMMARY | 2024-06-13 13:24 | XMS_ITS | Encounter Summary ---
Author Organization [employer] Address [address] [place] [address] [place] [address] Care Team Providers Care Hse Coordinator Name Role Phone Bc Hunter MD Primary Care Prov ider Reason for Referral * Consultation (Routine) - Authorized Specialty Diagnoses / Procedures Referred By Conteric t Referred To Contact Podiatry Diagnoses Onychomycosis Bc Hunter MD [address] [place] [address] Phone: tel: fax: Duc Dockery DPM [address] [facility] [address] [place] [phone] Phone: tel: fax: Referral ID Status Reason Start Date Expiration Date Visits Requested Visits Authorized [id number] Authorized Specialty Services Required 05/21/2024 05/21/2025 1 1 Encounter Details Date Type Department Care Team (Late st Contact Info) Description 05/21/2024 Orders Only [facility] [address] [place] [address] Bc Hunter MD [address] [place], [place] [phone] Onychomycosis (Primary Dx) Social History Tobacco Use [...] documented as of this encounter Care Teams Hse Coordinator Relationship Specialty Start Date End Date Bc Hunter MD [address] [place] [address] PCP - General Internal Medicine 01/03/19 documented as of this encounter
--- OUTSIDE RECORDS SUMMARY | 2024-06-13 13:24 | XMS_ITS | Encounter Summary ---
Author Organization [employer] Address [address] [facility] [address] 7[address] [place] [address] Care Team Providers Care Pump Oiler Name Role Phone Bc Hunter MD Primary Care Prov ider Encounter Details Date Type Department Care Team (Late st Contact Info) Description 09/20/2023 Orders Only [facility] [address] [place], [place] [phone] Bc Hunter MD [address] [place] [address] Social History Tobacco Use Types Packs/Day Years [...] documented as of this encounter Care Teams Pump Oiler Relationship Specialty Start Date End Date Bc Hunter MD [address] [place] [phone] PCP - General Internal Medicine 01/03/19 documented as of this encounter
--- OUTSIDE RECORDS SUMMARY | 2024-06-13 13:24 | XMS_ITS | Encounter Summary ---
Author Organization [facility] Address [address] [place] [address] Care Team Providers Care Crayon Sawyer Name Role Phone Bc Hunter Primary Care Provide r Reason for Visit * Imaging (Routine) - Closed Specialty Diagnoses / Procedures Referred By Yolette messer Referred To Contact Radiology Diagnoses Solitary pulmonary nodule Procedures PET CT Skull to Mid Thigh Initial Lenny Irving MD [address] [place] [address] Phone: tel: [facility] Referral ID Status Reason Start Date Expiration Date Visits Re quested Visits Authorized [id number] Closed 05/29/2024 05/29/2025 1 1 Encounter Details Date Type Department Care Team (Late st Contact Info) Description 06/07/2024 10:39 AM EDT Hospital Encounter [facility] PET Scan [address] [place] [address] Social History Tobacco Use Types Packs/Day Years [...] Procedure Name Priority Date/Time Associated Diagnosis Comments PET CT SKULL TO MID THIGH INITIAL Routine 06/07/2024 12:35 PM EDT Solitary pulmonary nodule documented in this encounter Visit Diagnoses Not on filedocumented in this encounter Administered Medications Inactive Administered Medications - up to 3 most recent administrations Medication Order MAR Action Action Date Dose Rate Site F-18 FDG pet diag radio-isotope injection 11.7 millicurie 11.7 millicurie, intravenous, Once in imaging, Starting on Wed06/07/24 at 1100, For 1 dose Given 06/07/2024 11:00 AM EDT 11.7 millicuries Right Antecubital documented in this encounter Orders Medications Ordered That Eric ht Not Have Been Administered Count Last Ordered Date First Ordered Date F-18 FDG pet diag radio-isot ope injection 11.7 millicurie 1 06/07/2024 documented in this encounter Care Teams Crayon Sawyer Relationship Specialty Start Date End Date Bc Hunter [address] [place] [address] PCP - General Internal Medicine 04/13/24 documented as of this encounter
--- OUTSIDE RECORDS SUMMARY | 2024-06-13 13:24 | XMS_ITS | Encounter Summary ---
Author Organization [employer] Address [address] [facility] [address] 7 [place] [address] Care Team Providers Care Surgical Elastic Knitter Name Role Phone Bc Hunter MD Primary Care Prov ider Encounter Details Date Type Department Care Team (Late st Contact Info) Description 05/18/2022 Orders Only [facility] [address] [place], [place] [phone] Bc Hunter MD [address] [place], [place] [phone] S/P aortic valve replacement Social History Tobacco [...] means documented in this encounter Care Teams Surgical Elastic Knitter Relationship Specialty Start Date End Date Bc Hunter MD [address] [place], [place] [phone] PCP - General Internal Medicine 01/03/19 documented as of this encounter
--- OUTSIDE RECORDS SUMMARY | 2024-06-13 13:24 | XMS_ITS | Encounter Summary ---
Author Organization [employer] Address [address] [facility] 7 [place] [address] Care Team Providers Care Servicer Coin Machines Name Role Phone Bc Hunter MD Primary Care Prov ider Reason for Visit * Reason Onset Date Comments Referral 12/06/2023 Encounter Details Date Type Department Care Team ([facility] st Contact Info) Description 12/06/[address] [facility] [address] [place] [address] Bc Hunter MD [address] [place], [place] [phone] Referral Social History Tobacco Use Types Packs/Day Years Used Date Smoking Tobacco: Every Day Cigarettes Depression Answer Date Recorded Patient Health Questionnaire-9 Score 0 09/30/2023 Patient Health Questionnaire-9 Score 0 09/30/2023 Last PHQ-9: Questionnaire Data Not on file 0 09/30/2023 Housing Stability Answer Date Recorded What is your housing situation today? I have nteo fernandez 07/19/[address] you [...] 12/06/2023 9:45 AM EDT Tc from patients [facility] calling to report the provider for podiatry has and would need to be referred to another location would like to be seen by Sarkis in the [place] location ifpossible documented in this encounter Plan of Treatment Not on file documented as of this encounter Visit Diagnoses Not on filedocumented in this encounter Additional Health Concerns Assessment Noted Time PHQ-9 Depression Total Score: 0 09/30/19 24 11:02 AM EDT documented as of this encounter Care Teams Servicer Coin Machines Relationship Specialty Start Date End Date Bc Hunter MD [address] [place] [phone] PCP - General Internal Medicine 01/03/19 documented as of this encounter
--- OUTSIDE RECORDS SUMMARY | 2024-06-13 13:24 | XMS_ITS | Encounter Summary ---
Author Organization [facility] Address [address] [place] [address] Phone Care Team Providers Care Flatwork Finisher Name Role Phone Bc Yates Primary Care Provider [phone] Encounter Details Date Type Department Care Team (Late st Contact Info) Description 05/26/2021 Documentation Only [facility] [address] [place] [address] Trever Lopez MD [address] [place] [address] [place] [address] Social History Tobacco Use Types [...] Visit [facility] [address] [place] [place] [address] Trever Lopez MD [address] [place] [address] [place] [address] documented as of this encounter Visit Diagnoses Not on filedocumented in this encounter Care Teams Flatwork Finisher Relationship Specialty Start Date End Date Bc Yates PCP - General Internal Medicine 10/05/22 documented as of this encounter
--- OUTSIDE RECORDS SUMMARY | 2024-06-13 13:24 | XMS_ITS | Encounter Summary ---
Author Organization [facility] Address [address] [place] [address] Phone Care Team Providers Care Hydraulic Riveter Name Role Phone Bc Yates Primary Care Provider [phone] Reason for Visit * Reason Comments Med Refill Encounter Details Date Type Department Care Team (Late st Contact Info) Description 01/13/2022 Refill [facility] [address] [place] [address] Trever Lopez MD [address] [facility] [place] [address] Social History Tobacco Use Types [...] Visit [facility] [address] [facility] [facility] [address] [place] [address] Trever Lopez MD [address] [facility] [place] [address] documented as of this encounter Visit Diagnoses Not on filedocumented in this encounter Care Teams Hydraulic Riveter Relationship Specialty Start Date End Date Bc Yates PCP - General Internal Medicine 10/05/22 documented as of this encounter
--- OUTSIDE RECORDS SUMMARY | 2024-06-13 13:24 | XMS_ITS | Clinical Summary ---
Author Organization [facility] Address [address] [place] [address] Phone Care Team Providers Care Sticker On Name Role Phone [facility] Provide r Encounters Date Type Department Care Team Description 06/07/2024 10:39 AM EDT Hospital Encounter [facility] PET Scan [address] [place] [address] from Last 3 Months Medical History Medical History Date Comments Heart valve replaced by other means 06/29/2011 DX:Heart valve replaced by other means Asthma 06/29/2011 DX:Asthma Tobacco abuse 06/29/2011 DX:Tobacco abuse Schizophrenia 06/29/2011 DX:Schizophrenia (HCC) Unspecified hypothyroidism 06/29/2011 DX:Un specified hypothyroidism Chronic [...] on file Obstetrics History Plan of Treatment Health Maintenance Due Date [...] PCV20 or PCV21) 03/17/2024 03/17/2019, 11/22/2014, 06/17/2000 Abdominal Aortic Aneurysm (AAA) Screen 04/14/2024 [...] 06/07/2024 12:35 PM EDT Solitary pulmonary nodule from Last 3 Months Results * PET CT Skull to Mid Thigh Initial (06/07/2024 12:35 PM EDT) Anatomical Region Laterality Modality Body Radiographic Kelly ging 06/13/2024 8:15 AM EDT Impressions 06/13/2024 9:29 AM EDT 1. ??Interval decrease in size of left upper lobe pulmonary nodule demonstrating minimal FDG activity likely postinfectious/postinflammatory in etiology; this can be followed to ensure clearing 2. ??FDG avid opacity/mass in the right lower lobe which may represent postinfectious/postinflammatory process versus malignancy 3. ??Nonspecific mild right hilar FDG activity which may be reactive in etiology or represent metastatic disease 4. ??Scattered patchy opacities most significant in the posterior aspect of the right upper lobe favor to represent postinfectious/postinflammatory process. ??This can be followed to ensure clearing. Please note: The CT was acquired at a low radiation dose settings. ??The images are of nondiagnostic quality and used solely for purposes of attenuation correction and slice localization for the PET scan. ??If a diagnostic CT study is desired it must be ordered separately. -------- FINAL REPORT -------- Dictated By: Marisela Caruso Dictated Date: 06/13/2024 08:15 ET Assigned Physician: Marisela Caruso Reviewed and Electronically Signed By: Marisela Caruso Signed Date: 06/13/2024 09:29 ET Workstation ID: [id number] Transcribed By: Self Edit Transcribed Date: 06/13/2024 08:22 ET Narrative 06/13/2024 9:29 AM EDT INDICATION: SOLITARY PULMONARY NODULE. ??Outside chest CT demonstrating solitary left upper lobe spiculated nodule. TECHNIQUE: FDG PET-CT imaging was performed from the skull bases through the thighs in a single acquisition with data set reconstructed in axial, coronal, and sagittal planes at the computer workstation with fused data from both the PET imaging study and attenuation correction CT. The CT portion of the examination was done strictly for attenuation correction and is not a true diagnostic CT examination. DLP: ??1088 mGy-cm Radiopharmaceutical: 11.7 mCi of F-18 FDG IV. Blood glucose: 102 mg/dl. COMPARISON: Outside chest CT October 2023 FINDINGS: HEAD AND NECK: Focal activity along the right neck SUV max 3.4 likely representing either asymmetric muscle or vascular activity. ??No FDG avid cervical lymphadenopathy. ??Mild right maxillary sinus mucosal thickening without significant FDG activity. THORAX: Interval decrease in size of left upper lobe spiculated nodule measuring 27 mm (previously 13 mm) SUV max 0.9. ??Other scattered small sub-5 mm pulmonary nodules without significant FDG activity. ?? Focal and patchy tree-in-bud/centrilobular opacities in the posterior aspect of the right upper lobe SUV max 3.0. ??Focal opacity in the right lower lobe SUV max 5.8. ??Trace bilateral pleural effusions SUV max 2.5 on the left and 1.2 on the right. ??Calcified pleural plaque formation which may represent prior asbestosis exposure. Right hilar lymphadenopathy SUV max 3.1 (mediastinal blood pool SUV Max 3). ??Right upper paratracheal lymph node SUV max 1.9, right paratracheal SUV max 2.2. Nonspecific focal FDG activity on the left adjacent to the ascending thoracic aorta SUV max 3.6. Enlargement of the pulmonary trunk measuring approximately 4.0 cm which may represent pulmonary arterial hypertension. ??Enlargement of the ascending thoracic aorta measuring approximately 4.2 cm at the level of the pulmonary trunk. ??Coronary artery calcifications with sternotomy is cerclage wire fixation. ??Aortic valve prosthesis. ABDOMEN/PELVIS: Nonspecific bowel activity. Diverticulosis. ??Right-sided bowel containing inguinal hernia. MUSCULOSKELETAL: Degenerative changes with scattered FDG activity. ??For example degenerative changes at L4-L5 and L5-S1 SUV Max 4.3. ??Mild to moderate compression deformity at L5. ??Nonspecific asymmetric mild FDG activity in the left iliac bone SUV max 2.2. ??Nonspecific asymmetric activity in the right psoas SUV max 3.7. Procedure Note Marisela Caruso MD - 06/13/2024 INDICATION: SOLITARY PULMONARY NODULE. Outside chest CT demonstratingsolitary left upper lobe spiculated nodule. TECHNIQUE: FDG PET-CT imaging was performed from the skull bases throughthe thighs in a single acquisition with data set reconstructed in axial,coronal, and sagittal planes at the computer workstation with fused datafrom both the PET imaging study and attenuation correction CT. The CTportion of the examination was done strictly for attenuation correctionand is not a true diagnostic CT examination. DLP: 1088 mGy-cm Radiopharmaceutical: 11.7 mCi of F-18 FDG IV. Blood glucose: 102 mg/dl. COMPARISON: Outside chest CT October 2023 FINDINGS: HEAD AND NECK: Focal activity along the right neck SUV max 3.4 likelyrepresenting either asymmetric muscle or vascular activity. No FDG avidcervical lymphadenopathy. Mild right maxillary sinus mucosal thickeningwithout significant FDG activity. THORAX: Interval decrease in size of left upper lobe spiculated nodulemeasuring 27 mm (previously 13 mm) SUV max 0.9. Other scattered smallsub-5 mm pulmonary nodules without significant FDG activity. Focal and patchy tree-in-bud/centrilobular opacities in the posterioraspect of the right upper lobe SUV max 3.0. Focal opacity in the rightlower lobe SUV max 5.8. Trace bilateral pleural effusions SUV max 2.5 onthe left and 1.2 on the right. Calcified pleural plaque formation whichmay represent prior asbestosis exposure. Right hilar lymphadenopathy SUV max 3.1 (mediastinal blood pool SUV Max3). Right upper paratracheal lymph node SUV max 1.9, right paratrachealSUV max 2.2. Nonspecific focal FDG activity on the left adjacent to the ascendingthoracic aorta SUV max 3.6. Enlargement of the pulmonary trunk measuring approximately 4.0 cm whichmay represent pulmonary arterial hypertension. Enlargement of theascending thoracic aorta measuring approximately 4.2 cm at the level ofthe pulmonary trunk. Coronary artery calcifications with sternotomy iscerclage wire fixation. Aortic valve prosthesis. ABDOMEN/PELVIS: Nonspecific bowel activity. Diverticulosis. Right-sided bowel containing inguinal hernia. MUSCULOSKELETAL: Degenerative changes with scattered FDG activity. Forexample degenerative changes at L4-L5 and L5-S1 SUV Max 4.3. Mild tomoderate compression deformity at L5. Nonspecific asymmetric mild FDGactivity in the left iliac bone SUV max 2.2. Nonspecific asymmetricactivity in the right psoas SUV max 3.7. IMPRESSION: 1. Interval decrease in size of left upper lobe pulmonary noduledemonstrating minimal FDG activity likely postinfectious/postinflammatoryin etiology; this can be followed to ensure clearing 2. FDG avid opacity/mass in the right lower lobe which may representpostinfectious/postinflammatory process versus malignancy 3. Nonspecific mild right hilar FDG activity which may be reactive inetiology or represent metastatic disease 4. Scattered patchy opacities most significant in the posterior aspect ofthe right upper lobe favor to represent postinfectious/postinflammatoryprocess. This can be followed to ensure clearing. Please note: The CT was acquired at a low radiation dose settings. The images are ofnondiagnostic quality and used solely for purposes of attenuationcorrection and slice localization for the PET scan. If a diagnostic CTstudy is desired it must be ordered separately. -------- FINAL REPORT -------- Dictated By: Marisela Caruso Dictated Date: 06/13/2024 08:15 ET Assigned Physician: Marisela Caruso Reviewed and Electronically Signed By: Marisela Caruso Signed Date: 06/13/2024 09:29 ET Workstation ID: [id number] Transcribed By: Self Edit Transcribed Date: 06/13/2024 08:22 ET Lenny Irving MD [facility] PROCEDURES Final Result from Last 3 Months Insurance MEDICARE MEDICAID - [place] Care Teams Sticker On Relationship Specialty Start Date End Date [facility] [address] [place] [phone] PCP - General Internal Medicine 04/13/24
== END 2024-06-13 11:20 | disposition home or self-care (01) ==
LOC: HO.ACS 10:57
PROVIDERS: PCP Internal Medicine; Visit Provider Internal Medicine Medical Oncology
DX: Z79.01 Long term (current) use of anticoagulants (principal)

== ENCOUNTER → 2024-06-13 10:57 | Outpatient (BNVA) | payer MEDICARE, MEDICAID, SELFPAY | PROVIDERS: PCP Internal Medicine; Visit Provider Internal Medicine Medical Oncology | DX: Z95.2 Presence of prosthetic heart valve (principal); Z51.81 Encounter for therapeutic drug level monitoring; Z79.01 Long term (current) use of anticoagulants | CPT/HCPCS: 85610; 99211 ==

== ENCOUNTER 2024-06-14 10:54 | Outpatient (AMB) | payer MEDICARE, MEDICAID, SELFPAY ==
[2024-06-14 11:01] VITALS: BP 90/50; PULSE 111; O2SAT 93; BMI 22.9
--- NOTE | 2024-06-14 11:01 | A.OFFVIS_ITS ---
Vital Signs 06/14/24 11:01 Height 6 ft Weight 169 lb BMI 22.9 BP 90/50 L Blood Pressure Location Rt brachial Position Sitting Pulse 111 H Pulse Source Doppler Pulse Oximetry (%) 93 Oxygen Delivery Method Room Air Intake Visit Reasons: copd Allergies No Known Allergies Allergy (Mild, Verified 06/14/24 11:07) NOT APPLICABLE HPI HPI copd: Details: 73-year-old gentleman, active 60+ pack-year smoker, with underlying history of what appears to be schizophrenia, followed for underlying moderate COPD and increasing pulmonary nodule. Patient has been using Trelegy, Yupelri, and albuterol MDI?with reasonable control of his underlying symptoms. Today he complains of shortness of breath and also noted to be borderline hypotensive with tachypnea and tachycardia.? He has completed his PET scan. [facility] Medical History Incarcerated right inguinal hernia Normocytic anemia Metabolic encephalopathy MSSA bacteremia History of atrial fibrillation COPD (chronic obstructive pulmonary disease) Hypothyroid Bipolar 1 disorder Surgical History History of heart surgery Social History Household Members: Other Household Members Other:: shelter Housing: House Housing Other:: shelter Do you presently have visiting nurse or other home services: Yes (shelter) Alcohol intake: never Comment: Close observation Patient Tobacco Use Status: Refuse Tobacco use screen Substance Use Type: Marijuana Advance Directives Date on File: 06/04/23 service: No Sexual orientation: Straight/Heterosexual Review of Systems Const Denies daytime sleepiness, Denies excessive sweating, Denies fatigue, Denies fever(s), Denies lethargy, Denies malaise, Denies night sweats, Denies snoring and Denies weight loss Eyes Denies blurry vision and Denies itchy eyes ENT Denies nasal congestion, Denies post nasal drip, Denies sinus pain, Denies sinus pressure and Denies other ( Thrush) Card Denies chest pain, Denies pedal edema, Reports dyspnea, Reports dyspnea on exertion, Denies orthopnea and Denies paroxysmal nocturnal dyspnea Resp Denies cough, Denies hemoptysis, Denies excessive phlegm production, Reports dyspnea, Reports dyspnea on exertion, Denies snoring and Denies wheezing GI Denies abdominal pain and Denies heartburn Musc Denies myalgias, Denies arthralgias and Denies joint swelling Skin/Breast Denies rash Neuro Denies memory loss and Denies seizure-like activity Psych Denies abnormal sleep pattern, Denies anxiety and Denies memory loss Endo Denies excessive sweating, Denies fatigue and Denies heat intolerance Clint/Lymph Denies easy bruising Aller/Immun Denies itchy eyes, Denies seasonal rhinorrhea and Denies wheezing Physical Exam Vital Signs: Last Vital Signs Pulse 111 H 06/14/24 11:01 BP 90/50 L 06/14/24 11:01 Pulse Ox 93 06/14/24 11:01 Oxygen Delivery Method Room Air 06/14/24 11:01 BMI result Body Mass Index 22.9 Const General: no acute distress and alert Nutritional Appearance: not obese Orientation/consciousness: Other orientation findings ( oriented) HEENT Head: Yes atraumatic Eyes General: appearance normal, both eyes and all related structures Sclerae: sclerae normal EOM: EOMs intact bilaterally Neck Neck: Yes supple Lymphatic: no lymphadenopathy noted Resp Effort & Inspection: tachypneic Auscultation: clear to auscultation bilaterally Cardio Rate: tachycardic Rhythm: regular rhythm Heart sounds: no gallops, no murmurs and no rubs Skin General skin exam: other ( warm) Extrem General: No clubbing, No cyanosis and No edema Assessment & Plan Assessment & Plan (1) COPD (chronic obstructive pulmonary disease): Code(s): J44.9 - Chronic obstructive pulmonary disease, unspecified Category: Medical Plan: Baseline controlled on trilogy, duo nebs, Yupelri, and albuterol MDI. Continue current regimen. (2) Pulmonary nodule 1 cm or greater in diameter: Code(s): R91.1 - Solitary pulmonary nodule Category: Medical Plan: Results of PET scan reviewed, will request biopsy of right lower lobe PET positive mass. (3) Dyspnea: Code(s): R06.00 - Dyspnea, unspecified Category: Medical Plan: Acute onset of dyspnea with tachypnea tachycardia over the last 24 hours. No hypoxia. Will transferred to ER for evaluation for possible PE. Coding Level of Care Code Est Pt Level 4 (86947) Complex EM visit Add On G2211 Diagnoses COPD (chronic obstructive pulmonary disease) J44.9 Pulmonary nodule 1 cm or greater in diameter R91.1 Dyspnea R06.00
--- OUTSIDE RECORDS SUMMARY | 2024-06-14 13:04 | XMS_ITS | Encounter Summary ---
Author Organization [facility] Address [address] [place] [address] Care Team Providers Care Blister Packaging Machine Operator Name Role Phone Bc Hunter MD Primary Care Prov ider Encounter Details Date Type Department Care Team (Late st Contact Info) Description 02/24/2022 Telephone [facility] [address] [place], [place] [phone] Bc Hunter MD [address] [place], [place] [phone] Social History Tobacco Use Types Packs/Day Years [...] on filedocumented in this encounter Care Teams Blister Packaging Machine Operator Relationship Specialty Start Date End Date Bc Hunter MD [address], [place] [phone] PCP - General Internal Medicine 01/03/19 documented as of this encounter
--- OUTSIDE RECORDS SUMMARY | 2024-06-14 13:04 | XMS_ITS | Encounter Summary ---
Author Organization [employer] Address [address] 7 [place] [address] Care Team Providers Care Financial Service Rep Name Role Phone Bc Hunter MD Primary Care Prov ider Encounter Details Date Type Department Care Team (Late st Contact Info) Description 07/16/2022 Telephone [facility] PEDS [address] [place], [place] [phone] Bc Hunter MD [address] [place] [address] Social History Tobacco Use Types Packs/Day Years [...] swelling. Right side. Please contact Lori @ [phone] if additional labs are requested by PCP [...] swelling. Right side. Please contact Lori @ [phone] if additional labs are requested by PCP [...] documented as of this encounter Care Teams Financial Service Rep Relationship Specialty Start Date End Date Bc Hunter MD [address] [place] [id number] PCP - General Internal Medicine 01/03/19 documented as of this encounter
--- OUTSIDE RECORDS SUMMARY | 2024-06-14 13:04 | XMS_ITS | Encounter Summary ---
Author Organization [employer] Address [address] [facility] [address] [place] [address] Care Team Providers Care Ship Wirer Name Role Phone Bc Hunter MD Primary Care Prov ider Reason for Visit * Reason Comments Med Refill Encounter Details Date Type Department Care Team ([facility] st Contact Info) Description 06/04/2024 Refill [facility] [address] [place] [address] Bc Hunter MD [address] [place], [place] [phone] Social History Tobacco Use Types Packs/Day Years [...] documented as of this encounter Care Teams Ship Wirer Relationship Specialty Start Date End Date Bc Hunter MD [address] [place] [phone] PCP - General Internal Medicine 01/03/19 documented as of this encounter
--- OUTSIDE RECORDS SUMMARY | 2024-06-14 13:04 | XMS_ITS | Encounter Summary ---
Author Organization [employer] Address [address] [place] [address] Care Team Providers Care Voice Writing Reporter Name Role Phone Bc Hunter MD Primary Care Prov ider Reason for Visit * Reason Comments Med Change Request Encounter Details Date Type Department Care Team ([facility] Contact Info) Description 07/19/2023 Refill [facility] MED & PEDS [address] [place] [address] Oralia Mazariegos FNP [address] [place] [address] Social History Tobacco Use Types Packs/Day Years [...] documented as of this encounter Care Teams Voice Writing Reporter Relationship Specialty Start Date End Date Bc Hunter MD [address] [place] [phone] PCP - General Internal Medicine 01/03/19 documented as of this encounter
--- OUTSIDE RECORDS SUMMARY | 2024-06-14 13:04 | XMS_ITS | Encounter Summary ---
Author Organization [employer] Address [address] [place] [address] Care Team Providers Care Cable Installer Repairer Name Role Phone Bc Hunter MD Primary Care Prov ider Reason for Visit * Reason Onset Date Comments Nurse Triage 05/26/2023 Encounter Details Date Type Department Care Team (Late st Contact Info) Description 05/26/2023 Telephone [facility] [address] [place] [address] Bc Hunter MD [address] [place], [place] [phone] Nurse Triage Social History Tobacco Use Types [...] AM EST Triage call Pt is in snf, Krystin Sepulveda taking call and consent is signed by Pt for staff to speak . Pt has had some changes. Pt decided to stop all psyche medications and MD Ward Myers,discontinued them. (Stop date unknown) Pt has since that time decreased eating, appetite is poor. Pt weight yesterday at [facility] apt is 173lbs. Pt was said to be around 202lbs regularly. Pt clothes are fitting very loosely now. Pt also wanted to stop coumadin but, [facility] instructed that wouldn't be good to do [...] acuity questions The caller accepted this outcome [phone] documented in this encounter Plan of Treatment Not on file documented as of this encounter Visit Diagnoses Not on filedocumented in this encounter Additional Health Concerns Assessment Noted Time PHQ-9 Depression Total Score: 0 07/11/19 23 11:26 AM EDT documented as of this encounter Care Teams Cable Installer Repairer Relationship Specialty Start Date End Date Bc Hunter MD [address] [place] [id number] PCP - General Internal Medicine 01/03/19 documented as of this encounter
--- OUTSIDE RECORDS SUMMARY | 2024-06-14 13:04 | XMS_ITS | Encounter Summary ---
Author Organization [facility] Address [address] [place] [address] Phone Care Team Providers Care Cook Relief Name Role Phone Bc Yates Primary Care Provider [phone] Encounter Details Date Type Department Care Team (Late Contact Info) Description 06/06/2024 Telephone [facility] [address] [place] [address] Sasha Bhatt [address] [place] [address] Social History Tobacco Use Types [...] EDT Made contact with Krystin via the residential that Chris resides at and made her [...] Office Visit [facility] [address] [place] [address] Trever Lopez MD [address] [place] [address] documented as of this encounter Visit Diagnoses Not on filedocumented in this encounter Care Teams Cook Relief Relationship Specialty Start Date End Date Bc Yates PCP - General Internal Medicine 10/05/22 documented as of this encounter
--- OUTSIDE RECORDS SUMMARY | 2024-06-14 13:04 | XMS_ITS | Encounter Summary ---
Author Organization [employer] Address [address] [place] [address] Care Team Providers Care Poultry Inspector Name Role Phone Bc Hunter MD Primary Care Prov ider Reason for Visit * Reason Comments Med Refill Encounter Details Date Type Department Care Team ([facility] st Contact Info) Description 05/18/2023 Refill [facility] MED [facility] PEDS [address] [place] [address] Bc Hunter MD [address] [place] [address] Social History Tobacco Use Types Packs/Day Years [...] as of this encounter Care Teams Poultry Inspector Relationship Specialty Start Date End Date Bc Hunter MD [address] [place] [phone] PCP - General Internal Medicine 01/03/19 documented as of this encounter
--- OUTSIDE RECORDS SUMMARY | 2024-06-14 13:04 | XMS_ITS | Encounter Summary ---
Author Organization [facility] Address [address] [place] [address] Phone Care Team Providers Care Certified Teacher Assistant Name Role Phone Bc Yates Primary Care Provider [phone]- [phone] Encounter Details Date Type Department Care Team (Late st Contact Info) Description 05/26/2021 Documentation Only [facility] [address] [place] [address] Trever Lopez MD [address] [place] [address] [place] [address] Social History Tobacco Use Types [...] Visit [facility] [address] [place] [place] [address] Trever Lopez MD [address] [place] [address] [place] [address] documented as of this encounter Visit Diagnoses Not on filedocumented in this encounter Care Teams Certified Teacher Assistant Relationship Specialty Start Date End Date Bc Yates PCP - General Internal Medicine 10/05/22 documented as of this encounter
--- OUTSIDE RECORDS SUMMARY | 2024-06-14 13:04 | XMS_ITS | Encounter Summary ---
Author Organization [employer] Address [address] 7t [place] [address] Care Team Providers Care Top Carrier Name Role Phone Bc Hunter MD Primary [...] EST) Protime 23.9(H) 11.1 - 13.5 sec [facility] 05/19/2024 11:3 9 AM EST 05/19/2024 11:41 AM EST us Generic External Data Provider LAB BLOOD ORDERAB LES Final Result Performing Organization Address City/State/[facility] Co de Phone Number [facility] [address] [place] [phone] * (ABNORMAL) ~PT, ~INR - ANTI COAG CLINIC (05/19/2024 11:39 AM EST) Prothrombin Time INR 2.0(H) 0.9 - 1.1 [facility] Comment:METER #: [id number] TERNATIONAL NORMALIZED RATIO (INR) REFERENCE RANGES Reference [...] Provider LAB BLOOD ORDERAB LES Final Result [facility] [address] [place] [phone] documented in this encounter Visit Diagnoses Not on filedocumented in this encounter Additional Health Concerns Assessment Noted Time PHQ-9 Depression Total Score: 0 09/30/19 24 11:02 AM EDT documented as of this encounter Care Teams Top Carrier Relationship Specialty Start Date End Date Bc Hunter MD [address] [place] [address] PCP - General Internal Medicine 01/03/19 documented as of this encounter
--- OUTSIDE RECORDS SUMMARY | 2024-06-14 13:04 | XMS_ITS | Clinical Summary ---
Author Organization [facility], Address [address] [place] [address] [place] [address] Phone Care Team Providers Care Emergency Medicine Nurse Practitioner Name Role Phone YatesBc Primary Care Provider Allergies No known active allergies Medications D3-50 1.25 MG (46765 UT) capsule TAKE 1 CAPSULE BY MOUTH [...] Telephone [facility], [address] [place] [address] Sasha Bhatt from Last 3 [...] Visit [facility], [address] [place] [address] Trever Lopez MD [address] [facility] [address] [facility] [address] [place] [address] Health Maintenance Due Date Last [...] topic Insurance MEDICARE MEDICAID [place] Care Teams Emergency Medicine Nurse Practitioner Relationship Specialty Start Date End Date Bc Yates PCP - General Internal Medicine 10/05/22
--- OUTSIDE RECORDS SUMMARY | 2024-06-14 13:04 | XMS_ITS | Encounter Summary ---
Author Organization [employer] Address [address] 7t [place] [address] Care Team Providers Care Statistical Clerk Advertising Name Role Phone Bc Hunter MD Primary [...] COAG CLINIC Routine 06/13/2024 11:[address] SKULL TO MID THIGH W FDG Routine 06/07/2024 3:59 PM EDT documented in this encounter Results * (ABNORMAL) PROTHROMBIN TIME WHOLE BLD POC (06/13/2024 11:05 AM EDT) Protime 35.1(H) 11.1 - 13.5 sec [facility] 06/13/2024 11:0 5 AM EDT 06/13/2024 11:17 AM EDT us Generic External Data Provider LAB BLOOD ORDERAB LES Final Result Performing Organization Address City/State/[facility] Co de Phone Number [facility] [address] [place] [phone] * (ABNORMAL) ~PT, ~INR - ANTI COAG CLINIC (06/13/2024 11:05 AM EDT) Prothrombin Time INR 2.9(H) 0.9 - 1.1 [facility] Comment:METER #: [id number] TERNATIONAL NORMALIZED RATIO (INR) REFERENCE RANGES Reference [...] Provider LAB BLOOD ORDERAB LES Final Result [facility] [address] [place] [phone] * PET/CT FDG Skull Base To Mid-Thigh (06/07/2024 3:59 PM EDT) Anatomical Region Laterality Modality Computed Tomogra phy us Historical Provider MD ALMENDAREZ CT PROCEDURES Final R esult documented in this encounter Visit Diagnoses Not on filedocumented in this encounter Additional Health Concerns Assessment Noted Time PHQ-9 Depression Total Score: 0 09/30/19 24 11:02 AM EDT documented as of this encounter Care Teams Statistical Clerk Advertising Relationship Specialty Start Date End Date Bc Hunter MD [address] [place] [address] PCP - General Internal Medicine 01/03/19 documented as of this encounter
--- OUTSIDE RECORDS SUMMARY | 2024-06-14 13:04 | XMS_ITS | Encounter Summary ---
Author Organization [employer] Address [address] [facility] 7 [place] [address] Care Team Providers Care Support Team Member Name Role Phone Bc Hunter MD Primary Care Prov ider Reason for Visit * Reason Onset Date Comments Med Refill 05/12/2022 Encounter Details Date Type Department Care Team (Late st Contact Info) Description 05/12/2022 Telephone [facility] MEDICINE [address] [place] [address] Bc Hunter MD [address] [place], [place] [phone] Med Refill Social History Tobacco Use Types [...] on filedocumented in this encounter Care Teams Support Team Member Relationship Specialty Start Date End Date Bc Hunter MD [address] [place] [address] PCP - General Internal Medicine 01/03/19 documented as of this encounter
--- OUTSIDE RECORDS SUMMARY | 2024-06-14 13:04 | XMS_ITS | Encounter Summary ---
Author Organization [employer] Address [address] 7t [place] [address] Care Team Providers Care Loss Prevention Guard Name Role Phone Bc Hunter MD Primary Care Prov ider Encounter Details Date Type Department Care Team (Late st Contact Info) Description 09/20/[address] [facility] MED & PEDS [address] [place], [place] [phone] Bc Hunter MD [address] [place] [address] Social History Tobacco Use Types Packs/Day Years [...] documented as of this encounter Care Teams Loss Prevention Guard Relationship Specialty Start Date End Date Bc Hunter MD [address] [place] [address] PCP - General Internal Medicine 01/03/19 documented as of this encounter
--- OUTSIDE RECORDS SUMMARY | 2024-06-14 13:04 | XMS_ITS | Clinical Summary ---
Author Organization [address] [facility] Address [address] [place] [address] Phone Care Team Providers Care Regional Sales Leader Name Role Phone Bc Hunter Primary Care Provide r Encounters Date Type Department Care Team Description 06/07/2024 10:39 AM EDT Hospital Encounter [facility] PET Scan [address] [place] [address] from Last 3 Months Medical [...] Signed Date: 06/13/2024 09:29 ET Workstation ID: [id number] Transcribed By: Self Edit Transcribed Date: 06/13/2024 [...] Signed Date: 06/13/2024 09:29 ET Workstation ID: [id number] Transcribed By: Self Edit Transcribed Date: 06/13/2024 08:22 ET Lenny Irving MD [facility] Final Result from Last 3 Months Insurance MEDICARE MEDICAID - [place] Care Teams Regional Sales Leader Relationship Specialty Start Date End Date Bc Hunter [address] [place] [phone] PCP - General Internal Medicine 04/13/24
--- OUTSIDE RECORDS SUMMARY | 2024-06-14 13:04 | XMS_ITS | Encounter Summary ---
Author Organization [employer] Address [address] [place] [address] 7 [place] [address] Care Team Providers Care Executive Assistant To President Name Role Phone Bc Hunter MD Primary Care Prov ider Reason for Visit * Reason Comments Med Refill Encounter Details Date Type Department Care Team (Late st Contact Info) Description 10/25/2022 Refill [facility] MED & PEDS [address] [place] [address] Bc Hunter MD [address] [place] [address] Social History Tobacco Use Types Packs/Day Years [...] documented as of this encounter Care Teams Executive Assistant To President Relationship Specialty Start Date End Date Bc Hunter MD [address] [place], [place] [phone] PCP - General Internal Medicine 01/03/19 documented as of this encounter
--- OUTSIDE RECORDS SUMMARY | 2024-06-14 13:04 | XMS_ITS | Encounter Summary ---
Author Organization [employer] Address [address] [place] [address] 7 [place] [address] Care Team Providers Care Office Correspondent Name Role Phone cB Hunter MD Primary Care Prov ider Reason for Visit * Reason Onset Date Comments Med Refill 09/21/2022 Encounter Details Date Type Department Care Team (Late st Contact Info) Description 09/21/2022 Telephone [facility] MED & PEDS [address] [place] [address] Bc Hunter MD 505 [place] [address] Med Refill Social History Tobacco Use Types [...] 09/23/2022 8:28 AM EDT Pt managed by [facility]. Last INR of 3.1 noted 09/17/22. Will forward request for Rx to covering provider to review. * Telephone Encounter - Ping Nettles - 09/21/2022 10:39 AM EDT Tc from pt requesting med refill on Warfarin 1 mg tablet [id number] - [place], [place] - [address] [place] [address] Please sent to documented in this encounter Plan of Treatment Not on file documented as of this encounter Visit Diagnoses Diagnosis History of Coumadin therapy- Primary S/P aortic valve replacement Heart valve replaced by other means documented in this encounter Additional Health Concerns Assessment Noted Time PHQ-9 Depression Total Score: 0 07/11/19 23 11:26 AM EDT documented as of this encounter Care Teams Office Correspondent Relationship Specialty Start Date End Date Bc Hunter MD [address] [place] [address] PCP - General Internal Medicine 01/03/19 documented as of this encounter
--- OUTSIDE RECORDS SUMMARY | 2024-06-14 13:04 | XMS_ITS | Encounter Summary ---
Author Organization [employer] Address [address] [facility] 7 [place] [address] Care Team Providers Care Supervisor Fine Grading Name Role Phone Bc Hunter MD Primary Care Prov ider Reason for Visit * Reason Onset Date Comments Med Refill 05/15/2022 Encounter Details Date Type Department Care Team ([facility] st Contact Info) Description 05/15/2022 Telephone [facility] CHC MED & PEDS [address] [place] [address] Bc Hunter MD 505 [place] [address] Med Refill Social History Tobacco Use Types [...] a max daily dose. Call placed to [facility]. Per Della, pt is currently [...] - 05/15/2022 11:54 AM EST Tc from [facility]Ay with [facility] requesting some kinds of specific directions for warfarin (Coumadin) 2 MG tablet If any question please contact amy at [phone] documented in this encounter Plan of Treatment Not on file documented as of this encounter Visit Diagnoses Not on filedocumented in this encounter Care Teams Supervisor Fine Grading Relationship Specialty Start Date End Date Bc Hunter MD [address] [place] [address] PCP - General Internal Medicine 01/03/19 documented as of this encounter
--- OUTSIDE RECORDS SUMMARY | 2024-06-14 13:04 | XMS_ITS | Encounter Summary ---
Author Organization [employer] Address [address] [facility] 7 [place] [address] Care Team Providers Care Reinforcing Steel Placer Name Role Phone Bc Hunter MD Primary Care Prov ider Reason for Visit * Reason Comments Med Refill Encounter Details Date Type Department Care Team ([facility] st Contact Info) Description 05/21/2024 Refill [facility] MEDICINE [address] [place] [address] Bc Hunter MD [address] [place], [place] [phone] Social History Tobacco Use Types Packs/Day Years [...] documented as of this encounter Care Teams Reinforcing Steel Placer Relationship Specialty Start Date End Date Bc Hunter MD [address] [place] [phone] PCP - General Internal Medicine 01/03/19 documented as of this encounter
--- OUTSIDE RECORDS SUMMARY | 2024-06-14 13:04 | XMS_ITS | Encounter Summary ---
Author Organization [employer] Address [address] [facility] [address] [address] 7t [place] [address] Care Team Providers Care Recording Engineer Name Role Phone Bc Hunter MD [...] EDT) Protime 23.6(H) 11.1 - 13.5 sec [facility] 06/01/2024 1:46 PM EDT 06/01/2024 1:47 PM EDT us Generic External Data Provider LAB BLOOD ORDERAB LES Final Result Performing Organization Address City/State/[facility] Co de Phone Number [facility] [address] [place] [phone] * (ABNORMAL) ~PT, ~INR - ANTI COAG CLINIC (06/01/2024 1:46 PM EDT) Prothrombin Time INR 2.0(H) 0.9 - 1.1 [facility] Comment:METER #: [id number] TERNATIONAL NORMALIZED RATIO (INR) REFERENCE RANGES Reference [...] Provider LAB BLOOD ORDERAB LES Final Result [facility] [address] [place] [phone] documented in this encounter Visit Diagnoses Not on filedocumented in this encounter Additional Health Concerns Assessment Noted Time PHQ-9 Depression Total Score: 0 09/30/19 24 11:02 AM EDT documented as of this encounter Care Teams Recording Engineer Relationship Specialty Start Date End Date Bc Hunter MD [address] [place] [phone] PCP - General Internal Medicine 01/03/19 documented as of this encounter
--- OUTSIDE RECORDS SUMMARY | 2024-06-14 13:04 | XMS_ITS | Encounter Summary ---
Author Organization [employer] Address [address] [facility] 7 [place] [address] Care Team Providers Care Assistant Public Defender Name Role Phone Bc Hunter MD Primary Care Prov ider Reason for Visit * Reason Onset Date Comments Referral 12/06/2023 Encounter Details Date Type Department Care Team ([facility] st Contact Info) Description 12/06/[address] [facility] MEDICINE [address] [place] [address] Bc Hunter MD [address] [place], [place] [phone] Referral Social History Tobacco Use Types Packs/Day [...] 12/06/2023 9:45 AM EDT Tc from patients long term calling to report the provider for podiatry has and would need to be referred to another location would like to be seen by Sarkis in the [place] location ifpossible documented in this encounter Plan of Treatment Not on file documented as of this encounter Visit Diagnoses Not on filedocumented in this encounter Additional Health Concerns Assessment Noted Time PHQ-9 Depression Total Score: 0 09/30/19 24 11:02 AM EDT documented as of this encounter Care Teams Assistant Public Defender Relationship Specialty Start Date End Date Bc Hunter MD [address] [place] [address] PCP - General Internal Medicine 01/03/19 documented as of this encounter
--- OUTSIDE RECORDS SUMMARY | 2024-06-14 13:04 | XMS_ITS | Encounter Summary ---
Author Organization [facility] Address [address] [place] [address] [place] [address] Care Team Providers Care Drafter Construction Name Role Phone Bc Hunter MD Primary Care Prov ider Reason for Referral * Consultation (Routine) - Authorized Specialty Diagnoses / Procedures Referred By Conteric t Referred To Contact Podiatry Diagnoses Onychomycosis Bc Hunter MD [address] [place] [address] Phone: tel: fax: Duc Dockery DPM [address] [facility] [address] [place] [address] Phone: tel: fax: Referral ID Status Reason Start Date Expiration Date Visits Requested Visits Authorized [id number] Authorized Specialty Services Required 05/21/2024 05/21/2025 1 1 Encounter Details Date Type Department Care Team (Late st Contact Info) Description 05/21/2024 Orders Only [facility] [address] [place] [address] Bc Hunter MD [address] [place], [place] [phone] Onychomycosis (Primary Dx) Social History Tobacco Use [...] documented as of this encounter Care Teams Drafter Construction Relationship Specialty Start Date End Date Bc Hunter MD [address] [place] [address] PCP - General Internal Medicine 01/03/19 documented as of this encounter
--- OUTSIDE RECORDS SUMMARY | 2024-06-14 13:04 | XMS_ITS | Encounter Summary ---
Author Organization [facility] Address [address] [place] [address] Phone Care Team Providers Care Boardinghouse Keeper Name Role Phone Bc Yates Primary Care Provider [phone]- [phone] Reason for Visit * Reason Comments Med Refill Encounter Details Date Type Department Care Team (Late st Contact Info) Description 01/13/2022 Refill [facility] [address] [place] [address] Trever Lopez MD [address] [facility] [place] [address] Social History Tobacco Use Types [...] [facility] [address] [place] [address] Trever Lopez MD [address] [place] [address] documented as of this encounter Visit Diagnoses Not on filedocumented in this encounter Care Teams Boardinghouse Keeper Relationship Specialty Start Date End Date Bc Yates PCP - General Internal Medicine 10/05/22 documented as of this encounter
--- OUTSIDE RECORDS SUMMARY | 2024-06-14 13:04 | XMS_ITS | Encounter Summary ---
Author Organization [employer] Address [address] [facility] [address] [facility] [address] [address] 7 [place] [address] Care Team Providers Care Business Operations Analyst Name Role Phone Bc Hunter MD Primary Care Prov ider Encounter Details Date Type Department Care Team (Late st Contact Info) Description 05/18/2022 Orders Only [facility] CHC MED & PEDS [address] [place], [place] [phone] Bc Hunter MD [address] [place], [place] [phone] S/P aortic valve replacement Social History Tobacco [...] means documented in this encounter Care Teams Business Operations Analyst Relationship Specialty Start Date End Date Bc Hunter MD [address] [place], [place] [phone] PCP - General Internal Medicine 01/03/19 documented as of this encounter
--- OUTSIDE RECORDS SUMMARY | 2024-06-14 13:04 | XMS_ITS | Encounter Summary ---
Author Organization [facility] Address [address] [place] [address] Care Team Providers Care Research Rn Spec Name Role Phone Bc Hunter Primary Care Provide r Reason for Visit * Imaging (Routine) - Closed Specialty Diagnoses / Procedures Referred By Yolette messer Referred To Contact Radiology Diagnoses Solitary pulmonary nodule Procedures PET CT Skull to Mid Thigh Initial Lenny Irving MD [address] [place] [address] Phone: tel: [facility] Referral ID Status Reason Start Date Expiration Date Visits Re quested Visits Authorized [id number] Closed 05/29/2024 05/29/2025 1 1 Encounter Details Date Type Department Care Team (Late st Contact Info) Description 06/07/2024 10:39 AM EDT Hospital Encounter [facility] PET Scan [address] [place] [address] Social History Tobacco Use Types [...] 06/07/2024 documented in this encounter Care Teams Research Rn Spec Relationship Specialty Start Date End Date Bc Hunter [address] [place] [address] PCP - General Internal Medicine 04/13/24 documented as of this encounter
--- OUTSIDE RECORDS SUMMARY | 2024-06-14 13:04 | XMS_ITS | Clinical Summary ---
Author Organization [email or web address] Address [address] [place] [address] Care Team Providers Care Time Motion Analyst Name Role Phone Bc Hunter MD [...] Will order a follow up LDCT scan, glass washer was told to contact pulmonology office Seborrheic [...] valve replacement 04/28/2022 Overview (07/20/2023): Followed by [facility] Assessment & Plan (07/20/2023 8:46 PM EDT): Cardiology consult scheduled 07/20/23 No reported hx of bleeding, no reported chest pain/shortness of breath Discussed with PCP and [facility] (Lori FLETCHER). Plan to bridge pt from Eliquis to Coumadin. May DC Eliquis once Coumadin therapeutic Coumadin dosinmg on Wednesday and Wednesday 4mg all other days of the week Plan: [facility] to reach out to senior [...] DEPARTMENT Provider, Generic External Data 06/04/2024 Refill [facility] [address] [place] [address] Bc Hunter MD 06/01/2024 Orders Only GENERIC EXTERNAL DATA DEPARTMENT Provider, Generic External Data 05/21/2024 Orders Only [facility] [address] [place] [address] Bc Hunter MD Onychomycosis (Primary Dx) 05/21/2024 Refill [facility] [address] [place] [address] Bc Hunter MD 05/19/2024 Orders Only GENERIC EXTERNAL DATA DEPARTMENT Provider, Generic External Data 05/12/2024 Orders Only GENERIC EXTERNAL DATA DEPARTMENT Provider, Generic External Data 05/06/2024 Refill [facility] [address] [place] [address] Bc Hunter MD Mixed hyperlipidemia 05/01/2024 Orders Only GENERIC EXTERNAL DATA DEPARTMENT Provider, Generic External Data 04/27/2024 Telephone [facility] [address] [place] [address] Bc Hunter MD Lung screening 04/26/2024 11:15 AM EST Office Visit [facility] [address] [place] [address] Bc Hunter MD Acquired hypothyroidism (Primary Dx); Other iron deficiency anemia; Nodule of left lung 04/26/2024 Travel 04/24/2024 Orders Only GENERIC EXTERNAL DATA DEPARTMENT Provider, Generic External Data 04/19/2024 Travel 04/17/2024 Orders Only GENERIC EXTERNAL DATA DEPARTMENT Provider, Generic External Data 04/10/2024 Orders Only GENERIC EXTERNAL DATA DEPARTMENT Provider, Generic External Data 04/05/2024 Telephone [facility] [address] [place] [address] Bc Hunter MD Anticoagulation 04/05/2024 Orders Only GENERIC EXTERNAL DATA DEPARTMENT Provider, Generic External Data 03/29/2024 Orders Only GENERIC EXTERNAL DATA DEPARTMENT Provider, Generic External Data 03/19/2024 Refill [facility] [address] [place], [place] [phone] Oralia Mazariegos FNP S/P aortic valve replacement 03/19/2024 Refill [facility] [address] [place], [place] [phone] Zafar Richard MD Mixed hyperlipidemia from Last [...] W FDG Routine 06/07/2024 3:59 PM EDT PROTHROMBIN TIME WHOLE BLD POC [...] included. Protime 35.1(H) 11.1 - 13.5 sec [facility] 06/13/2024 11:0 5 AM EDT 06/13/2024 11:17 AM EDT Generic External Data Provider LAB BLOOD ORDERAB LES Final Result Performing Organization Address [facility] Co de Phone Number [facility] [address] [place] [phone] * (ABNORMAL) ~PT, ~INR - ANTI COAG CLINIC (06/13/2024 11:05 AM EDT) Only the most recent of10 resultswithin the time period is included. Prothrombin Time INR 2.9(H) 0.9 - 1.1 [facility] Comment:METER #: [id number] TERNATIONAL NORMALIZED RATIO (INR) REFERENCE RANGES Reference [...] Result Performing Organization Address [facility] Co de Phone Number [facility] [address] [place] [phone] * PET/CT FDG Skull Base To Mid-Thigh (06/07/2024 3:59 PM EDT) Anatomical Region Laterality Modality Computed Tomogra phy Historical Provider IMG CT PROCEDURES Final R esult * Lipid Panel, Standard (05/06/2023 11:48 AM EST) Triglycerides 61 <150 mg/dL [facility] Comment:Desirable Triglyceri de: less than 150 mg/dLBorderline High Triglyceride 150-199 mg/dLHigh Triglyceride: 200-499 mg/dLVery High Triglyceride: greater than or equal to 5OO mg/dL Cholesterol 166 <200 mg/dL [facility] Comment:Desirable Cholestero l: less than 200 mg/dLBorderline High Cholesterol: 200-239 mg/dLHigh Cholesterol: greater than 239 mg/dL LDL Cholesterol Calculated 94 <100 mg/dL [facility] Comment:Desirable LDL: less than 100 mg/dLNear Optimal/Above Optimal LDL: 110- 129 mg/dLBorderline High LDL: 130-159 mg/dLHigh LDL: 160-189 mg/dLVery High LDL: greater than or equal to 190 mg/dL HDL Cholesterol 60 >40 mg/dL [facility] Comment:Desirable HDL: great er than 40 mg/dL Note: This HDL assay may give artificially low results in patients with liver disease. Blood Venous blood specimen / Unknown 05/06/2023 11:48 AM EST 05/06/2023 2:09 PM EST Bc Rascon MD LAB BLOOD ORDERABL ES Final Result [facility] [address] [place] [phone] * Hepatitis C Antibody with Reflex to HCV, RNA, Quantitative, Real-Time PCR (07/10/2022 11:31 AM EDT) Hepatitis C Antibody NON-REACT DEZ NON-REACT DEZ [employer] [facility] Index 0.09 <1.00 [facility] [facility] Comment: HCV antibody was non-reactive. There is no laboratory evidence of HCV infection. In most cases, no further action is required. However, if recent HCV exposure is suspected, a test for HCV RNA (test code 87107) is suggested. For additional information please refer to http://education.[employer].com/faq/WDP79c4 (This link is being provided for informational/ educational purposes only.) Blood Venous blood specimen / Unknown 07/10/2022 11:31 AM EDT 07/10/2022 11:32 AM EDT Narrative [facility] - 07/11/2022 5:06 AM EDT FASTING:NO FASTING: NO Bc Rascon MD LAB BLOOD ORDERABL ES Final Result [facility] [address], [place] [phone] [employer] [place] [facility] [address] [place] [phone] from Last 3 Months or Most Recently Relevant to Health Maintenance Insurance [place] [address] [place] [id number] [facility] Care Teams Time Motion Analyst Relationship Specialty Start Date End Date YatesBc Ledezma MD [address] [place] [phone] PCP - General Internal Medicine 01/03/19
== END 2024-06-14 11:20 | disposition home or self-care (01) ==
LOC: HO.HPS 10:54
PROVIDERS: PCP Internal Medicine; Visit Provider Internal Medicine Pulmonary Disease
DX: J44.9 Chronic obstructive pulmonary disease, unspecified (principal); R91.1 Solitary pulmonary nodule; R06.00 Dyspnea, unspecified
CPT/HCPCS: 99214; G2211

== ENCOUNTER 2024-06-14 11:23 | Emergency (ER) | payer MEDICARE, MEDICAID, SELFPAY ==
--- NOTE | ~2024-06-14 | XR_ITS ---
EXAMINATION: XR CHEST CLINICAL INFORMATION: shortness of breath COMPARISON: December 03, 2020. TECHNIQUE: 2 views of the chest were obtained. FINDINGS: Multifocal patchy opacities throughout the right lung. Left-sided pleural effusion, moderate volume. Right-sided pleural effusion, small to moderate volume. Pulmonary reticular pattern. Hyperinflated lungs. Sternal wires. Cardiomediastinal silhouette size is normal. Multilevel thoracic spondylosis. Old traumatic deformity left humeral head. XR/XR chest 2V IMPRESSION: Acute on chronic airspace disease involving mostly the right lung. Bilateral pleural effusions, moderate volume on the left hand small to moderate volume on the right. Electronically signed by: Zechariah Moreira MD 06/14/2024 12:37 PM EDT
--- NOTE | ~2024-06-14 | CT_ITS ---
EXAMINATION: CT ANGIOGRAM CHEST CLINICAL INFORMATION: Tachypnea. Hypertension. COMPARISON: June 29, 2022. TECHNIQUE: Multiple axial images were obtained through the chest after the administration of 65 mL of Omnipaque 350 intravenous contrast. Extensive vascular post-processing including two-dimensional and three-dimensional reformatted images were created and reviewed on an independent workstation. SmartPrep technique. This CT examination was performed using dose optimization techniques as appropriate, variously including the following: *Automated exposure control *Adjustment of mA and/or kV according to patient size (this includes techniques or standardized protocols for targeted exams where dose is matched to indication/reason for exam; i.e. extremities or head) *Use of iterative reconstruction technique DLP: 292 mGy centimeter. FINDINGS: The main pulmonary artery and its main branches are patent without intraluminal filling defects. Prominent diameter of the right main pulmonary artery. No aneurysm or dissection, thoracic aorta. Multifocal patchy peribronchial vascular bundle and peribronchial septal attenuation abnormalities extending from the right pulmonary hilum to the right lung and to a lesser extent left lung bases and lingula. 9 mm noncalcified pulmonary nodule with spiculated margins in the left lung apex. Bilateral centrilobular and paraseptal emphysematous changes. Bilateral pleural effusions, small to moderate volume. No gross lymphadenopathy in the mediastinum. No pericardial effusion. Sternal wires likely CABG procedure. Calcified plaques throughout the thoracic aorta. There is a heart valve prosthesis. Degenerative changes and old traumatic deformity in the left glenohumeral joint and left humeral head. Small to moderate volume hiatal hernia. Multilevel spondylosis throughout the axial skeleton suggesting DISH. CT/CT angio chest PE protocol IMPRESSION: No acute pulmonary artery emboli. No aneurysm or dissection thoracic aorta. Multifocal pneumonia. Fleischner guidelines were followed. Electronically signed by: Zechariah Moreira MD 06/14/2024 01:53 PM EDT
--- NOTE | 2024-06-14 11:26 | ED.GENADULT ---
HPI - General Adult General Chief complaint: Upper Respiratory Symptoms Stated complaint: possible pulmonary embolism Time Seen by Provider: 06/14/24 13:07 Source: patient, RN notes reviewed and old records reviewed Mode of arrival: ambulatory Limitations: no limitations History of Present Illness ED Provider: Neri HPI narrative: Patient is a 73-year-old male with history of current 60+ pack year smoker, [place] valve on warfarin, COPD, increasing pulmonary nodule, schizophrenia, BPH, anemia presenting to the emergency department from Dr. Irving's office to rule out pulmonary embolism as patient has recently been short of breath. In the office, he was found to be tachypneic, tachycardic, hypotensive. Patient denies fevers. He denies chest pain but reports that he had chest pain last night and felt near syncopal. MD complaint: dyspnea Onset (ago): day(s) Related Data Home Medications ?Medication ?Instructions ?Recorded ?Confirmed dicyclomine 20 mg tablet 20 mg PO BID 07/20/23 06/13/24 pantoprazole 40 mg tablet,delayed 40 mg PO BID 07/20/23 06/13/24 release cholecalciferol (vitamin D3) 25 25 mcg PO QAM 07/23/23 06/13/24 mcg (1,000 unit) capsule (Vitamin D3) warfarin 2 mg tablet 2 mg PO .COMPLEX 07/23/23 06/13/24 multivitamin with folic acid 400 1 tab PO DAILY 04/10/24 06/13/24 mcg tablet (Daily-Stanley (with folic acid)) risperidone 2 mg tablet (Risperdal) 2 mg PO BID 05/12/24 06/13/24 FLUCINOLONE topical 05/19/24 06/13/24 carbamide peroxide [Debrox] otic (ears) 05/19/24 06/13/24 valproic acid 500 mg See Rx Instructions PO DAILY 05/19/24 06/13/24 capsule,delayed release Previous Rx's ?Medication ?Instructions ?Recorded albuterol sulfate 90 mcg/actuation 1 puff inhalation RQ4H PRN 07/13/23 aerosol inhaler (Ventolin HFA) Wheezing/SOB #6.7 grams atorvastatin 40 mg tablet 40 mg PO BEDTIME #30 tabs 07/13/23 benztropine 1 mg tablet 1 mg PO BID #60 tabs 07/13/23 ferrous sulfate 324 mg (65 mg 324 mg PO DAILY #30 tabs 07/13/23 iron) tablet,delayed release levothyroxine 25 mcg tablet 25 mcg PO DAILY@0600 #30 tabs 07/13/23 loratadine 10 mg tablet 10 mg PO DAILY #30 tabs 07/13/23 magnesium oxide 400 mg (241.3 mg 400 mg PO BIDPC #60 tabs 07/13/23 magnesium) tablet phenazopyridine 200 mg tablet 200 mg PO TID PRN dysuria #90 tabs 07/13/23 tamsulosin 0.4 mg capsule 0.4 mg PO BEDTIME #30 caps 03/24/24 revefenacin 175 mcg/3 mL solution 175 mcg (3 mL) inhalation DAILY 30 05/23/24 for nebulization (Yupelri) days #90 mL amoxicillin 875 mg-potassium 1 tab PO BID #13 tabs 06/14/24 clavulanate 125 mg tablet doxycycline hyclate 100 mg capsule 100 mg PO BID #13 caps 06/14/24 Allergies Allergy/AdvReac Type Severity Reaction Status Date / Time No Known Allergies Allergy Mild NOT Verified 06/14/24 11:28 APPLICABLE Review of Systems Review of Systems: As per HPI Yes all other systems are reviewed and are negative Constitutional: Constitutional: Reports as per HPI PMFSH Past Medical History Medical History Incarcerated right inguinal hernia Normocytic anemia Metabolic encephalopathy MSSA bacteremia History of atrial fibrillation COPD (chronic obstructive pulmonary disease) Hypothyroid Bipolar 1 disorder Surgical History History of heart surgery Social History Social History Household Members: Other Household Members Other:: assisted Housing: House Housing Other:: assisted Do you presently have visiting nurse or other home services: Yes (assisted) Alcohol intake: never Comment: Close observation Patient Tobacco Use Status: Refuse Tobacco use screen Smoked in Last 30 Days: Yes Substance Use Type: Marijuana Advance Directives: Yes Advance Directives on File: Yes Advance Directives Date on File: 06/04/23 service: No Sexual orientation: Straight/Heterosexual Physical Exam ED Vital Signs: Vital Signs - 24 hr 06/14/24 11:27 06/14/24 13:09 06/14/24 13:09 Temperature 98 F 97.9 F Pulse Rate 100 79 Respiratory Rate 19 21 H Blood Pressure 97/54 L 123/57 L Pulse Oximetry 96 96 96 Oxygen Delivery Method Room Air Room Air Room Air 06/14/24 14:43 06/14/24 16:00 06/14/24 16:21 Temperature Pulse Rate 110 H 101 H Respiratory Rate 18 18 Blood Pressure 117/58 L 86/59 L Pulse Oximetry 99 97 97 Oxygen Delivery Method Room Air BMI result Body Mass Index 23.9 Vital signs have been reviewed and appear to be correct. Blood pressure low. Heart rate normal. Respiratory rate normal. Temperature normal. Oxygen saturation normal. Const General: cooperative, no acute distress and ill appearing chronically Orientation/consciousness: oriented to person, oriented to place, oriented to time and patient oriented x3 Limitations: no limitations HENMT Head: Yes normocephalic and Yes atraumatic Ears: external ears normal General nose exam: Normal external nose present Face and sinus: Yes face symmetric Mouth: oropharynx normal and moist mucous membranes Throat: Yes uvula midline Eyes Pupils: Equal, round and reactive pupils present Neck Neck: Yes normal visual inspection and Yes supple Resp Effort & Inspection: normal respiratory effort and able to speak in complete sentences Auscultation: clear to auscultation bilaterally and rhonchi throughout Cardio Rate: regular rate Rhythm: regular rhythm Heart sounds: S1 normal heart sound present, S2 normal heart sound present and Clicking heart sound present Peripheral pulses: Peripheral pulses 2+ throughout GI Palpation (GI): Soft to palpation and nontender Auscultation: normoactive bowel sounds General: Yes no CVA tenderness Back/Spine/Pelvis Back: no CVA tenderness Skin General skin exam: elasticity normal and turgor normal Neuro General: oriented to person, oriented to place, oriented to time, patient oriented x3, moves all extremities, no focal motor deficits and CN's II-XI intact bilaterally Cranial nerves: Yes Equal, round and reactive pupils present Cognition (Neuro): normal cognition Extrem General: Yes full ROM, Yes no pedal edema and Yes no calf tenderness Psych Mental Status: mental status grossly normal Affect: normal affect Thought process: Normal thought process present Course Course Course Narrative: JOSE, this is a rapid medical exam performed by Darren [place] please refer to primary provider for complete H&P- 73-year-old male presents for evaluation of shortness of breath. Has a history of COPD, he is not on oxygen at baseline. He presents from Dr. Irving's office to be ruled out for a pulmonary embolism. He is currently being worked up for lung cancer. Plan to start with basic labs, EKG, chest x-ray. Reevaluation(s) Reevaluation #1: with tech and RN present when his BP was low he states he wants to leave he is aware he could fall, syncopize, but he still states he wants to leave. He refuses to stay I tried to advise him to stay but he does not want to. I used the words , sepsis, fall risk, severe complication. Medications Administered Generic Name Dose Route Start Last Admin Trade Name Freq PRN Reason Stop Dose Admin Doxycycline Hyclate 100 mg/ 250 mls @ 166.67 mls/hr 06/14/24 15:21 06/14/24 15:41 Sodium Chloride IV 06/14/24 16:50 166.67 mls/hr ONCE ONE Administration Discontinued Medications Generic Name Dose Route Start Last Admin Trade Name Freq PRN Reason Stop Dose Admin Ceftriaxone Sodium 1 gm 06/14/24 15:21 06/14/24 15:42 Ceftriaxone Sodium 1 Gm Vial IVPUSH 06/14/24 15:22 1 gm ONCE ONE Administration Iohexol 100 ml 06/14/24 13:32 06/14/24 13:33 Iohexol 350 Mg/Ml 100 Ml Infus..Btl IV 06/14/24 13:33 65 ml ONCE ONE Administration Medical Decision Making Medical Decision Making MDM Narrative: Patient is a 73-year-old male with history of current 60+ pack year smoker, [place] valve on warfarin, COPD, increasing pulmonary nodule, schizophrenia, BPH, anemia presenting to the emergency department from Dr. Irving's office to rule out pulmonary embolism as patient has recently been short of breath. On exam patient is awake, A+Ox3, BP low, VS otherwise WNL, afebrile, normal neurological exam without focal deficits, physical exam findings as above. Given reported symptoms and physical exam findings, initial differential includes but is not limited to PE, pneumonia, COPD exacerbation. Labs notable for leukocytosis, mildly elevated BUN with normal creatinine, slightly elevated BNP. Viral serology negative. Chest x-ray notable for bilateral pleural effusions. CTA chest notable for no acute PE, no aneurysm or dissection, multifocal pneumonia. My interpretation is in agreement with the radiologist's interpretation. Patient updated on results and all questions answered. Patient states he does not want to be admitted to the hospital. Ambulatory O2 sat 99% on room air. Lactic normal. Do not suspect sepsis at 1540. Patient is agreeable to receiving 1 dose of IV antibiotics here prior to discharge home. Dr. Irving updated on CT results. Return precautions discussed. Patient verbalized understanding of and agreement with plan. Differential Diagnosis Differential Diagnoses: The differential diagnosis associated with the presentation includes As per [facility] Admission/Observation Consideration of admission/observation: Escalation of care including admission/observation considered Lab Data [facility] Lab Attestation statement: I reviewed the patient's lab results. As per [facility] 06/14/24 11:51 06/14/24 11:51 Labs: Lab Results 06/14/24 06/14/24 Range/Units 11:51 15:14 WBC 13.9 H (4.8-10.8) X10*3/uL RBC 3.37 L (4.60-5.80) X10*6/uL Hgb 10.6 L (14.0-18.0) g/dl Hct 30.7 L (42.0-52.0) % MCV 91.1 (80.0-98.0) fL MCH 31.5 (27.0-33.0) pg MCHC 34.5 (31.0-36.0) g/dl RDW 15.8 (11.0-16.0) % Plt Count 264 (160-400) X10*3/uL MPV 9.6 (9.4-12.4) fL Immature Gran % (Auto) 0.4 (0.0-0.4) % Neut % (Auto) 92.5 H (45-73) % Lymph % (Auto) 1.7 L (20-40) % Sharkey % (Auto) 5.2 (2-11) % Eos % (Auto) 0.1 (0-4) % Baso % (Auto) 0.1 (0-2) % Lymph # (Auto) 0.2 L (1.2-4.9) X10*3/uL Sharkey # (Auto) 0.7 (0.1-1.2) X10*3/uL Eos # (Auto) 0.0 (0.0-0.4) X10*3/uL Baso # (Auto) 0.0 (0.0-0.2) X10*3/uL Abs Immat Gran (auto) 0.05 H (0.00-0.03) X10*3/uL Absolute Neuts (auto) 12.9 H (2.0-8.3) x10*3/uL Absolute Nucleated RBC 0.000 (0.0-0.012) X10*3/uL Nucleated RBC % (auto) 0.0 (0.0-0.2) /100WBC Smear Tech's Comments VERIFIED Hold Blue Top SEE NOTE Sodium 134 L (135-145) mmol/L Potassium 4.1 (3.3-5.1) mmol/L Chloride 101 (96-108) mmol/L Carbon Dioxide 26 (22-29) mmol/L Anion Gap 11 L (12-20) BUN 22 H (9-16) mg/dL Creatinine 1.21 (0.5-1.4) mg/dL Estim Creat Clear Calc 61.4 Estimated GFR 59 Random Glucose 100 (60-115) mg/dL Lactic Acid 1.5 (0.5-2.0) mmol/L Calcium 8.6 D (8.4-10.2) mg/dL Total Bilirubin 0.5 (0.0-1.0) mg/dL AST 27 (5-37) U/L ALT 11 (0-40) U/L Alkaline Phosphatase 94 (39-117) U/L Troponin I High Sens 13.1 (<3.5-35.0) ng/L B-Natriuretic Peptide 164 H (<100) pg/mL Total Protein 6.4 L (6.5-8.0) g/dL Albumin 3.4 L (3.5-5.0) g/dL Influenza Type A (PCR) NEGATIVE (Negative) Influenza Type B (PCR) NEGATIVE (Negative) RSV RNA Qual (PCR) NEGATIVE (Negative) SARS-CoV-2 RNA (RT-PCR) NEGATIVE (Negative) Independent Interpretation I performed an independent interpretation of an: Plain X-Ray and CT Scan Interpretation: Chest x-ray notable for bilateral pleural effusions. CTA chest notable for no acute PE, no aneurysm or dissection, multifocal pneumonia. Radiology Impression Discussion of test interpretation with radiology: I have reviewed the radiologist's reading. Radiologist Impression: XR/XR chest 2V IMPRESSION: Acute on chronic airspace disease involving mostly the right lung. Bilateral pleural effusions, moderate volume on the left hand small to moderate volume on the right. CT/CT angio chest PE protocol IMPRESSION: No acute pulmonary artery emboli. No aneurysm or dissection thoracic aorta. Multifocal pneumonia. External Record Review External record reviewed: Inpatient record, Office record and Outpatient record Prescription Management I considered prescription management with: Antibiotic Discharge Plan Discharge Clinical Impression: Multifocal pneumonia, Acute hypotension Patient Disposition: Left Against Medical Advice Instructions: Community Acquired Pneumonia (DC), Hypotension (ED), Against Medical Advice (ED) Additional Instructions: You were evaluated in the emergency department today for shortness of breath. Your CT scan shows evidence of pneumonia. You are being treated with antibiotics, please complete the full courses as prescribed. It is IMPORTANT that you FOLLOW UP WITH DR. IRVING. You will need a repeat chest x-ray to confirm resolution of your pneumonia. Return to the emergency department if you develop worsening shortness of breath, chest pain, palpitations, fever 100.4? F or greater, or any other concerning symptoms. WE DID NOT WANT YOU TO LEAVE. WE WOULD LIKE TO ADMIT YOU TO THE HOSPITAL YOU REFUSED. YOU CAN COME BACK AT ANY TIME. Prescriptions: New doxycycline hyclate 100 mg capsule 100 mg PO BID Qty: 13 0RF amoxicillin-pot clavulanate 875-125 mg tablet 1 tab PO BID Qty: 13 0RF No Action tamsulosin 0.4 mg capsule 0.4 mg PO BEDTIME Qty: 30 3RF Yupelri 175 mcg/3 mL solution for nebulization 175 mcg inhalation DAILY 30 Days Qty: 90 6RF loratadine 10 mg Tablet 10 mg PO DAILY Qty: 30 0RF albuterol sulfate [Ventolin HFA] 90 mcg/actuation Hfa Aerosol Inhaler 1 puff inhalation RQ4H PRN (Reason: Wheezing/SOB) Qty: 6.7 0RF ferrous sulfate 324 mg (65 mg iron) Tablet,Delayed Release (Dr/Ec) 324 mg PO DAILY Qty: 30 0RF atorvastatin 40 mg Tablet 40 mg PO BEDTIME Qty: 30 0RF benztropine 1 mg Tablet 1 mg PO BID Qty: 60 0RF magnesium oxide 400 mg (241.3 mg magnesium) Tablet 400 mg PO BIDPC Qty: 60 0RF levothyroxine 25 mcg Tablet 25 mcg PO DAILY@0600 Qty: 30 0RF phenazopyridine 200 mg Tablet 200 mg PO TID PRN (Reason: dysuria) Qty: 90 0RF cholecalciferol (vitamin D3) [Vitamin D3] 25 mcg (1,000 unit) capsule 25 mcg PO QAM warfarin 2 mg tablet 2 mg PO .COMPLEX Protocol: Dose Management Condition: Wednesday (Week One) Dose/Route: 2 mg Instruction: 1 x 2 mg tablet Condition: Wednesday Dose/Route: 4 mg Instruction: 2 x 2 mg tablets Condition: Wednesday Dose/Route: 2 mg Instruction: 1 x 2 mg tablet Condition: Wednesday Dose/Route: 4 mg Instruction: 2 x 2 mg tablets Condition: Dose/Route: 2 mg Instruction: 1 x 2 mg tablet Condition: Wednesday Dose/Route: 4 mg Instruction: 2 x 2 mg tablets Condition: Wednesday Dose/Route: 4 mg Instruction: 2 x 2 mg tablets Condition: Wednesday (Week Two) Dose/Route: 2 mg Instruction: 1 x 2 mg tablet Condition: Wednesday Dose/Route: 4 mg Instruction: 2 x 2 mg tablets Condition: Wednesday Dose/Route: 2 mg Instruction: 1 x 2 mg tablet Condition: Wednesday Dose/Route: 4 mg Instruction: 2 x 2 mg tablets Condition: Dose/Route: 2 mg Instruction: 1 x 2 mg tablet Condition: Wednesday Dose/Route: 4 mg Instruction: 2 x 2 mg tablets Condition: Wednesday Dose/Route: 4 mg Instruction: 2 x 2 mg tablets Protocol Text: Adjustment Start Date: Wednesday06/13/24 INR Value: 2.9 INR Date: 06/13/24 Recheck Date: 06/27/24 Rx Instructions: 2 mg orally 4MG DAILY OR DIRECTED; 4MG DAILY OR DIRECTED risperidone [Risperdal] 2 mg tablet 2 mg PO BID pantoprazole 40 mg tablet,delayed release (DR/EC) 40 mg PO BID dicyclomine 20 mg tablet 20 mg PO BID multivitamin with folic acid [Daily-Stanley (with folic acid)] 400 mcg tablet 1 tab PO DAILY valproic acid 500 mg capsule,delayed release(DR/EC) See Rx Instructions PO DAILY Rx Instructions: 1000mg orally daily; carbamide peroxide [Debrox] otic (ears) Rx Instructions: 5 DROPS EACH EAR EVERY 2 WEEKS FLUCINOLONE topical Rx Instructions: TOPICAL DAILY Print Language: Georgian
[2024-06-14 11:27] VITALS: BP 97/54; PULSE 100; RESP 19; TEMP 36.6; O2SAT 96; BMI 23.9
--- NOTE | 2024-06-14 11:27 | ECG_ITS ---
Test Reason : sob Blood Pressure : */* mmHG Vent. Rate : 92 BPM Atrial Rate : 92 BPM P-R Int : 250 ms QRS Dur : 94 ms QT Int : 354 ms P-R-T Axes : 80 79 -87 degrees QTcB Int : 437 ms Sinus rhythm with 1st degree A-V block with Premature atrial complexes Possible Left atrial enlargement ST & T wave abnormality, consider inferolateral ischemia Abnormal ECG When compared with ECG of 04-Jun-2023 12:08, Premature atrial complexes are now Present T wave inversion now evident in Inferior leads T wave inversion now evident in Anterolateral leads Referred By: Eber Collins Electronically Signed By: BRENDAN HORNER MD
[2024-06-14 12:30] LABS: Basophils Percent Auto 0.1 % (0-2); Eosinophils Percent Auto 0.1 % (0-4); Hematocrit 30.7 % (42.0-52.0); Hemoglobin 10.6 g/dl (14.0-18.0); Imm Gran Abs Auto 0.05 X10*3/uL (0.00-0.03); Imm Gran Pct Auto 0.4 % (0.0-0.4); Lymphocytes Absolute Auto 0.2 X10*3/uL (1.2-4.9); Lymphocytes Percent Auto 1.7 % (20-40); MANUAL DIFF FLAG SCAN; Mean Corpuscular HGB Conc 34.5 g/dl (31.0-36.0); Mean Corpuscular Hemoglobin 31.5 pg (27.0-33.0); Mean Corpuscular Volume 91.1 fL (80.0-98.0); Mean Platelet Volume 9.6 fL (9.4-12.4); Monocytes Absolute Auto 0.7 X10*3/uL (0.1-1.2); Monocytes Percent Auto 5.2 % (2-11); Neutrophils Absolute Auto 12.9 x10*3/uL (2.0-8.3); Neutrophils Percent Auto 92.5 % (45-73); Platelet Count 264 X10*3/uL (160-400); Red Blood Count 3.37 X10*6/uL (4.60-5.80); Red Cell Distribution Width 15.8 % (11.0-16.0); SCAN SMEAR FLAG 1; White Blood Count 13.9 X10*3/uL (4.8-10.8)
[2024-06-14 12:43] LABS: Alanine Aminotransferase 11 U/L (0-40); Albumin Level 3.4 g/dL (3.5-5.0); Alkaline Phosphatase 94 U/L (39-117); Anion Gap 11 (12-20); Aspartate Amino Transferase 27 U/L (5-37); Bilirubin Total 0.5 mg/dL (0.0-1.0); Blood Urea Nitrogen 22 mg/dL (9-16); Calcium 8.6 mg/dL (8.4-10.2); Carbon Dioxide 26 mmol/L (22-29); Chloride 101 mmol/L (96-108); Creatinine Clr Calc Pharmacy 61.4; Estimated Glomerular Filt Rate 59; Glucose Random 100 mg/dL (60-115); Potassium 4.1 mmol/L (3.3-5.1); Sodium 134 mmol/L (135-145); Total Protein 6.4 g/dL (6.5-8.0)
[2024-06-14 12:49] LABS: B Type Natriuretic Peptide 164 pg/mL (<100); Troponin-I High Sensitivity 13.1 ng/L (<3.5-35.0)
[2024-06-14 12:58] LABS: SLIDE REVIEW VERIFIED
[2024-06-14 13:09] VITALS: BP 123/57; PULSE 79; RESP 21; TEMP 36.6; O2SAT 96
[2024-06-14 13:13] LABS: Influenza A PCR NEGATIVE (Negative); Influenza B PCR NEGATIVE (Negative); Resp Syncy Virus RNA Qual PCR NEGATIVE (Negative); SARS COV2 PCR INHOUSE NEGATIVE (Negative)
--- NOTE | 2024-06-14 13:13 | ED.GENADULT ---
HPI - General Adult General Chief complaint: Upper Respiratory Symptoms Stated complaint: possible pulmonary embolism Time Seen by Provider: 06/14/24 13:07 Related Data Home Medications ?Medication ?Instructions ?Recorded ?Confirmed dicyclomine 20 mg tablet 20 mg PO BID 07/20/23 06/13/24 pantoprazole 40 mg tablet,delayed 40 mg PO BID 07/20/23 06/13/24 release cholecalciferol (vitamin D3) 25 25 mcg PO QAM 07/23/23 06/13/24 mcg (1,000 unit) capsule (Vitamin D3) warfarin 2 mg tablet 2 mg PO .COMPLEX 07/23/23 06/13/24 multivitamin with folic acid 400 1 tab PO DAILY 04/10/24 06/13/24 mcg tablet (Daily-Stanley (with folic acid)) risperidone 2 mg tablet (Risperdal) 2 mg PO BID 05/12/24 06/13/24 FLUCINOLONE topical 05/19/24 06/13/24 carbamide peroxide [Debrox] otic (ears) 05/19/24 06/13/24 valproic acid 500 mg See Rx Instructions PO DAILY 05/19/24 06/13/24 capsule,delayed release Previous Rx's ?Medication ?Instructions ?Recorded albuterol sulfate 90 mcg/actuation 1 puff inhalation RQ4H PRN 07/13/23 aerosol inhaler (Ventolin HFA) Wheezing/SOB #6.7 grams atorvastatin 40 mg tablet 40 mg PO BEDTIME #30 tabs 07/13/23 benztropine 1 mg tablet 1 mg PO BID #60 tabs 07/13/23 ferrous sulfate 324 mg (65 mg 324 mg PO DAILY #30 tabs 07/13/23 iron) tablet,delayed release levothyroxine 25 mcg tablet 25 mcg PO DAILY@0600 #30 tabs 07/13/23 loratadine 10 mg tablet 10 mg PO DAILY #30 tabs 07/13/23 magnesium oxide 400 mg (241.3 mg 400 mg PO BIDPC #60 tabs 07/13/23 magnesium) tablet phenazopyridine 200 mg tablet 200 mg PO TID PRN dysuria #90 tabs 07/13/23 tamsulosin 0.4 mg capsule 0.4 mg PO BEDTIME #30 caps 03/24/24 revefenacin 175 mcg/3 mL solution 175 mcg (3 mL) inhalation DAILY 30 05/23/24 for nebulization (Yupelri) days #90 mL amoxicillin 875 mg-potassium 1 tab PO BID #13 tabs 06/14/24 clavulanate 125 mg tablet doxycycline hyclate 100 mg capsule 100 mg PO BID #13 caps 06/14/24 Allergies Allergy/AdvReac Type Severity Reaction Status Date / Time No Known Allergies Allergy Mild NOT Verified 06/14/24 11:28 APPLICABLE [facility] Past Medical History Medical History Incarcerated right inguinal hernia Normocytic anemia Metabolic encephalopathy MSSA bacteremia History of atrial fibrillation COPD (chronic obstructive pulmonary disease) Hypothyroid Bipolar 1 disorder Surgical History History of heart surgery Social History Social History Household Members: Other Household Members Other:: long term Housing: House Housing Other:: long term Do you presently have visiting nurse or other home services: Yes (long term) Alcohol intake: never Comment: Close observation Patient Tobacco Use Status: Refuse Tobacco use screen Smoked in Last 30 Days: Yes Substance Use Type: Marijuana Advance Directives: Yes Advance Directives on File: Yes Advance Directives Date on File: 06/04/23 service: No Sexual orientation: Straight/Heterosexual Physical Exam ED Vital Signs: Vital Signs - 24 hr 06/14/24 11:27 06/14/24 13:09 06/14/24 13:09 Temperature 98 F 97.9 F Pulse Rate 100 79 Respiratory Rate 19 21 H Blood Pressure 97/54 L 123/57 L Pulse Oximetry 96 96 96 Oxygen Delivery Method Room Air Room Air Room Air 06/14/24 14:43 06/14/24 16:00 06/14/24 16:21 Temperature Pulse Rate 110 H 101 H Respiratory Rate 18 18 Blood Pressure 117/58 L 86/59 L Pulse Oximetry 99 97 97 Oxygen Delivery Method Room Air 06/14/24 16:39 Temperature 98.0 F Pulse Rate 101 H Respiratory Rate 18 Blood Pressure 86/59 L Pulse Oximetry 97 Oxygen Delivery Method BMI result Body Mass Index 23.9 Medications Administered Discontinued Medications Generic Name Dose Route Start Last Admin Trade Name Freq PRN Reason Stop Dose Admin Ceftriaxone Sodium 1 gm 06/14/24 15:21 06/14/24 15:42 Ceftriaxone Sodium 1 Gm Vial IVPUSH 06/14/24 15:22 1 gm ONCE ONE Administration Doxycycline Hyclate 100 mg/ 250 mls @ 166.67 mls/hr 06/14/24 15:21 06/14/24 16:25 Sodium Chloride IV 06/14/24 16:50 Infused ONCE ONE Infusion Iohexol 100 ml 06/14/24 13:32 06/14/24 13:33 Iohexol 350 Mg/Ml 100 Ml Infus..Btl IV 06/14/24 13:33 65 ml ONCE ONE Administration Medical Decision Making Lab Data 06/14/24 11:51 06/14/24 11:51 Labs: Lab Results 06/14/24 06/14/24 Range/Units 11:51 15:14 WBC 13.9 H (4.8-10.8) X10*3/uL RBC 3.37 L (4.60-5.80) X10*6/uL Hgb 10.6 L (14.0-18.0) g/dl Hct 30.7 L (42.0-52.0) % MCV 91.1 (80.0-98.0) fL MCH 31.5 (27.0-33.0) pg MCHC 34.5 (31.0-36.0) g/dl RDW 15.8 (11.0-16.0) % Plt Count 264 (160-400) X10*3/uL MPV 9.6 (9.4-12.4) fL Immature Gran % (Auto) 0.4 (0.0-0.4) % Neut % (Auto) 92.5 H (45-73) % Lymph % (Auto) 1.7 L (20-40) % [place] % (Auto) 5.2 (2-11) % Eos % (Auto) 0.1 (0-4) % Baso % (Auto) 0.1 (0-2) % Lymph # (Auto) 0.2 L (1.2-4.9) X10*3/uL [place] # (Auto) 0.7 (0.1-1.2) X10*3/uL Eos # (Auto) 0.0 (0.0-0.4) X10*3/uL Baso # (Auto) 0.0 (0.0-0.2) X10*3/uL Abs Immat Gran (auto) 0.05 H (0.00-0.03) X10*3/uL Absolute Neuts (auto) 12.9 H (2.0-8.3) x10*3/uL Absolute Nucleated RBC 0.000 (0.0-0.012) X10*3/uL Nucleated RBC % (auto) 0.0 (0.0-0.2) /100WBC Smear Tech's Comments VERIFIED Hold Blue Top SEE NOTE Sodium 134 L (135-145) mmol/L Potassium 4.1 (3.3-5.1) mmol/L Chloride 101 (96-108) mmol/L Carbon Dioxide 26 (22-29) mmol/L Anion Gap 11 L (12-20) BUN 22 H (9-16) mg/dL Creatinine 1.21 (0.5-1.4) mg/dL Estim Creat Clear Calc 61.4 Estimated GFR 59 Random Glucose 100 (60-115) mg/dL Lactic Acid 1.5 (0.5-2.0) mmol/L Calcium 8.6 D (8.4-10.2) mg/dL Total Bilirubin 0.5 (0.0-1.0) mg/dL AST 27 (5-37) U/L ALT 11 (0-40) U/L Alkaline Phosphatase 94 (39-117) U/L Troponin I High Sens 13.1 (<3.5-35.0) ng/L B-Natriuretic Peptide 164 H (<100) pg/mL Total Protein 6.4 L (6.5-8.0) g/dL Albumin 3.4 L (3.5-5.0) g/dL Influenza Type A (PCR) NEGATIVE (Negative) Influenza Type B (PCR) NEGATIVE (Negative) RSV RNA Qual (PCR) NEGATIVE (Negative) SARS-CoV-2 RNA (RT-PCR) NEGATIVE (Negative) Discharge Plan Discharge Clinical Impression: Multifocal pneumonia, Acute hypotension Patient Disposition: Left Against Medical Advice Instructions: Community Acquired Pneumonia (DC), Hypotension (ED), Against Medical Advice (ED) Additional Instructions: You were evaluated in the emergency department today for shortness of breath. Your CT scan shows evidence of pneumonia. You are being treated with antibiotics, please complete the full courses as prescribed. It is IMPORTANT that you FOLLOW UP WITH DR. DESIR. You will need a repeat chest x-ray to confirm resolution of your pneumonia. Return to the emergency department if you develop worsening shortness of breath, chest pain, palpitations, fever 100.4? F or greater, or any other concerning symptoms. WE DID NOT WANT YOU TO LEAVE. WE WOULD LIKE TO ADMIT YOU TO THE HOSPITAL YOU REFUSED. YOU CAN COME BACK AT ANY TIME. Prescriptions: New doxycycline hyclate 100 mg capsule 100 mg PO BID Qty: 13 0RF amoxicillin-pot clavulanate 875-125 mg tablet 1 tab PO BID Qty: 13 0RF No Action tamsulosin 0.4 mg capsule 0.4 mg PO BEDTIME Qty: 30 3RF Yupelri 175 mcg/3 mL solution for nebulization 175 mcg inhalation DAILY 30 Days Qty: 90 6RF loratadine 10 mg Tablet 10 mg PO DAILY Qty: 30 0RF albuterol sulfate [Ventolin HFA] 90 mcg/actuation Hfa Aerosol Inhaler 1 puff inhalation RQ4H PRN (Reason: Wheezing/SOB) Qty: 6.7 0RF ferrous sulfate 324 mg (65 mg iron) Tablet,Delayed Release (Dr/Ec) 324 mg PO DAILY Qty: 30 0RF atorvastatin 40 mg Tablet 40 mg PO BEDTIME Qty: 30 0RF benztropine 1 mg Tablet 1 mg PO BID Qty: 60 0RF magnesium oxide 400 mg (241.3 mg magnesium) Tablet 400 mg PO BIDPC Qty: 60 0RF levothyroxine 25 mcg Tablet 25 mcg PO DAILY@0600 Qty: 30 0RF phenazopyridine 200 mg Tablet 200 mg PO TID PRN (Reason: dysuria) Qty: 90 0RF cholecalciferol (vitamin D3) [Vitamin D3] 25 mcg (1,000 unit) capsule 25 mcg PO QAM warfarin 2 mg tablet 2 mg PO .COMPLEX Protocol: Dose Management Condition: Wednesday (Week One) Dose/Route: 2 mg Instruction: 1 x 2 mg tablet Condition: Wednesday Dose/Route: 4 mg Instruction: 2 x 2 mg tablets Condition: Wednesday Dose/Route: 2 mg Instruction: 1 x 2 mg tablet Condition: Wednesday Dose/Route: 4 mg Instruction: 2 x 2 mg tablets Condition: Dose/Route: 2 mg Instruction: 1 x 2 mg tablet Condition: Wednesday Dose/Route: 4 mg Instruction: 2 x 2 mg tablets Condition: Wednesday Dose/Route: 4 mg Instruction: 2 x 2 mg tablets Condition: Wednesday (Week Two) Dose/Route: 2 mg Instruction: 1 x 2 mg tablet Condition: Wednesday Dose/Route: 4 mg Instruction: 2 x 2 mg tablets Condition: Wednesday Dose/Route: 2 mg Instruction: 1 x 2 mg tablet Condition: Wednesday Dose/Route: 4 mg Instruction: 2 x 2 mg tablets Condition: Dose/Route: 2 mg Instruction: 1 x 2 mg tablet Condition: Wednesday Dose/Route: 4 mg Instruction: 2 x 2 mg tablets Condition: Wednesday Dose/Route: 4 mg Instruction: 2 x 2 mg tablets Protocol Text: Adjustment Start Date: Wednesday06/13/24 INR Value: 2.9 INR Date: 06/13/24 Recheck Date: 06/27/24 Rx Instructions: 2 mg orally 4MG DAILY OR DIRECTED; 4MG DAILY OR DIRECTED risperidone [Risperdal] 2 mg tablet 2 mg PO BID pantoprazole 40 mg tablet,delayed release (DR/EC) 40 mg PO BID dicyclomine 20 mg tablet 20 mg PO BID multivitamin with folic acid [Daily-Stanley (with folic acid)] 400 mcg tablet 1 tab PO DAILY valproic acid 500 mg capsule,delayed release(DR/EC) See Rx Instructions PO DAILY Rx Instructions: 1000mg orally daily; carbamide peroxide [Debrox] otic (ears) Rx Instructions: 5 DROPS EACH EAR EVERY 2 WEEKS FLUCINOLONE topical Rx Instructions: TOPICAL DAILY Interventions: ED Discharge Assessment Last Done: 06/14/24 16:39 Discharge Date/Time: 06/14/24 16:42 Print Language: South Korean
[2024-06-14] MEDS: iohexoL 350 MG/ML 100 ML INFUS..BTL IV (13:33)
[2024-06-14 14:43] VITALS: O2SAT 99
[2024-06-14 15:34] LABS: Lactic Acid 1.5 mmol/L (0.5-2.0)
[2024-06-14] MEDS: Doxycycline Hyclate 100 MG in 0.9 % Sodium Chloride 250 ML 166.67 MG IV (15:41)
[2024-06-14] MEDS: cefTRIAXone sodium 1 GM VIAL IVPUSH (15:42)
[2024-06-14 16:00] VITALS: BP 117/58; PULSE 110; RESP 18; O2SAT 97
[2024-06-14 16:21] VITALS: BP 86/59; PULSE 101; RESP 18; O2SAT 97
[2024-06-14 16:39] VITALS: BP 86/59; PULSE 101; RESP 18; TEMP 36.7; O2SAT 97
== END 2024-06-14 16:42 | disposition left against medical advice (07) ==
PROVIDERS: Physician Assistant; Registered Nurse Emergency; Emergency Provider Emergency Medicine
DX: J18.8 Other pneumonia, unspecified organism (principal); I95.9 Hypotension, unspecified; R06.02 Shortness of breath; R06.00 Dyspnea, unspecified; Z53.29 Procedure and treatment not carried out because of patient's decision for other reasons; Z03.818 Encounter for observation for suspected exposure to other biological agents ruled out; J44.9 Chronic obstructive pulmonary disease, unspecified; E03.9 Hypothyroidism, unspecified; I48.91 Unspecified atrial fibrillation; D64.9 Anemia, unspecified; R91.1 Solitary pulmonary nodule; F20.9 Schizophrenia, unspecified; Z79.01 Long term (current) use of anticoagulants; Z79.899 Other long term (current) drug therapy; Z79.02 Long term (current) use of antithrombotics/antiplatelets; Z79.891 Long term (current) use of opiate analgesic; Z95.2 Presence of prosthetic heart valve
CPT/HCPCS: 0241U; 36415; 71046; 71275; 80053; 83605; 83880; 84484; 85025; 87040; 93005; 96365; 96375; 99212; 99284; 99285; J0696; Q9967

== ENCOUNTER → 2024-06-14 11:27 | Outpatient (BNV) | payer MEDICARE, MEDICAID, SELFPAY | PROVIDERS: Emergency Provider Emergency Medicine; Visit Provider Internal Medicine Cardiovascular Disease | DX: R06.02 Shortness of breath (principal); R94.31 Abnormal electrocardiogram [ECG] [EKG]; I44.0 Atrioventricular block, first degree | CPT/HCPCS: 93010 ==

== ENCOUNTER → 2024-06-14 11:28 | Outpatient (BNV) | payer MEDICARE, MEDICAID, SELFPAY | PROVIDERS: Visit Provider Radiology Diagnostic Radiology | DX: J18.9 Pneumonia, unspecified organism (principal); J90 Pleural effusion, not elsewhere classified | CPT/HCPCS: 71046; 71275 ==

== ENCOUNTER 2024-06-27 11:26 | Outpatient (AMB) | payer MEDICARE, MEDICAID, SELFPAY ==
--- NOTE | 2024-06-27 11:30 | AM.OFFWIN_ITS ---
Intake Vital Signs 3 06/27/24 11:33 Weight 177 lb BP 122/78 Blood Pressure Location Lt brachial Position Sitting Pulse 70 Pulse Source Pulse Oximeter Pulse Oximetry (%) 100 Oxygen Delivery Method Room Air Intake Visit Reasons: EP SOB, fatigued Intake Note: Patient here for SOB, fatigue. he was recently treated for pneumonia about 2 weeks ago. 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 - Prior pneumonia was treated with doxyc ycline and Augmentin, finishing on June 21; however, symptoms persist. - Notable history includes CXR 06/14 mult ifocal bacterial pneumonia with bilat pleural effusion L>R, COPD, and current smoking. - Steroids were not previously utilized due to patient refusal. - Follow-up with Dr. Irving scheduled fo r July 11. - patient's gang worker is with s[employer] and she assures me he has an inhaler at home which he can use and has been using when needed - patient in his gang worker gave permission for us to give the results of the chest x-ray to his nurse at his [facility] Physical Exam General: Cooperative, healthy appearing, comfortable and no acute distress, but looks very tired Orientation/consciousness: Patient oriented x3 Limitations: No limitations Head: Normal to inspection Ears: Hearing grossly normal bilaterally, external ears normal and TM's normal bilaterally Nose: Normal external nose present, Normal nares present and No nasal discharge present Face and sinus: Normal facial exam and Yes sinuses nontender Mouth: Normal oral and palatal mucosa present and moist mucous membranes Throat: Yes tonsils normal, Yes uvula midline. Posterior oropharynx erythema Eyes: Appearance normal, both eyes and all related structures Neck: Normal visual inspection Respiratory: Clear but slightly dim to auscultation bilaterally. Normal respiratory effort, able to speak in complete sentences, Actively coughing, no respiratory distress, not tachypneic, no tripod positioning and no use of accessory muscles Cardiovascular: Regular rate and rhythm. Normal S1 and S2 Skin: No rashes or lesions noted Neuro: Patient oriented x3 Extremities: Normal to inspection and Yes no clubbing, cyanosis or edema PFSH Medical History Incarcerated right inguinal hernia Normocytic anemia Metabolic encephalopathy MSSA bacteremia History of atrial fibrillation COPD (chronic obstructive pulmonary disease) Hypothyroid Bipolar 1 disorder Surgical History History of heart surgery Social History Household Members: Other Household Members Other:: [facility] Housing: House Housing Other:: [facility] Do you presently have visiting nurse or other home services: Yes ([facility]) Alcohol intake: never Comment: Close observation Patient Tobacco Use Status: Refuse Tobacco use screen Substance Use Type: Marijuana Advance Directives Date on File: 06/04/23 service: No Sexual orientation: Straight/Heterosexual Review of Systems Const All systems reviewed & are unremarkable except as noted in HPI and below Physical Exam Vital Signs: Last Vital Signs Pulse 70 06/27/24 11:33 BP 122/78 06/27/24 11:33 Pulse Ox 100 06/27/24 11:33 Oxygen Delivery Method Room Air 06/27/24 11:33 Results Reviewed Results Reviewed: [address] [address] [address] Scan Report Signed Patient: Chris Zaragoza MR#: [id number] : 1950 Acct:[id number] Age/Sex: 73 / M ADM Date: 06/14/24 Loc: HO.ED Attending Dr: Ordering Physician: Irlanda He NP Date of Service: 06/14/24 Procedure(s): CT angio chest PE protocol Accession Number(s): [id number] cc: Physician,Unknown ; Irlanda He NP~ Report Number: [id number]: Total DLP = 292.00 mGy-cm EXAMINATION: CT ANGIOGRAM CHEST CLINICAL INFORMATION: Tachypnea. Hypertension. COMPARISON: June 29, 2022. TECHNIQUE: Multiple axial images were obtained through the chest after the administration of 65 mL of Omnipaque 350 intravenous contrast. Extensive vascular post-processing including two-dimensional and three-dimensional reformatted images were created and reviewed on an independent workstation. SmartPrep technique. This CT examination was performed using dose optimization techniques as appropriate, variously including the following: *Automated exposure control *Adjustment of mA and/or kV according to patient size (this includes techniques or standardized protocols for targeted exams where dose is matched to indication/reason for exam; i.e. extremities or head) *Use of iterative reconstruction technique DLP: 292 mGy centimeter. FINDINGS: The main pulmonary artery and its main branches are patent without intraluminal filling defects. Prominent diameter of the right main pulmonary artery. No aneurysm or dissection, thoracic aorta. Multifocal patchy peribronchial vascular bundle and peribronchial septal attenuation abnormalities extending from the right pulmonary hilum to the right lung and to a lesser extent left lung bases and lingula. 9 mm noncalcified pulmonary nodule with spiculated margins in the left lung apex. Bilateral centrilobular and paraseptal emphysematous changes. Bilateral pleural effusions, small to moderate volume. No gross lymphadenopathy in the mediastinum. No pericardial effusion. Sternal wires likely CABG procedure. Calcified plaques throughout the thoracic aorta. There is a heart valve prosthesis. Degenerative changes and old traumatic deformity in the left glenohumeral joint and left humeral head. Small to moderate volume hiatal hernia. Multilevel spondylosis throughout the axial skeleton suggesting DISH. CT/CT angio chest PE protocol IMPRESSION: No acute pulmonary artery emboli. No aneurysm or dissection thoracic aorta. Multifocal pneumonia. Fleischner guidelines were followed. Electronically signed by: Zechariah Moreira MD 06/14/2024 01:53 PM EDT Assessment & Plan Assessment & Plan (1) COPD exacerbation: Code(s): J44.1 - Chronic obstructive pulmonary disease with (acute) exacerbation Plan: O2 sat was double checked and is at 100% on RA however pt feeling short of breath after being dx'd with multifocal pneumonia and small to moderate pleural effusions left side greater than the right. He left the ED against medical advice and was sent home with the doxycycline and Augmentin, he completed 7 days of twice daily dosing of both of these medications on 06/22. However, he has ongoing shortness of breath/ COPD exacerbation possibly related to unresolved pneumonia and pleural effusions, a follow-up chest x-ray was ordered to assess pulmonary effusion clearance. [phone] custodial Nurse is Sindy Aquino pls call with CXR results and plan. CXR shows RUL and RLL significantly improved from the prior exams, there is no pneumothorax or pleural effusion. I am not going to send any further antibiotics as VSS and imaging will likely show resolved opacities in the coming weeks. We called the [facility] nurse to advise to follow up with Pulmonolgy on 07/11 and if he has worsening of symptoms, develops a fever, becomes acutely short of breath, he should go to the emergency department. I will also message Lime Kiln Tender to let him know pt's status. Use of steroids was proposed, but declined by the patient, I tried to educate the patient on the need for steroids because he is feeling short of breath but he declined stating that ?they are narcotics and he does not want them . Regardless, I sent a prescription to the patient's pharmacy because his gang worker is going to talk to the [facility] nurse and see if she can convince him to take the steroids. He does have an inhaler readily available at the [facility] to use when he is feeling short of breath as well. Patient understands his refusal can lead to worsening of his symptoms, up to and including . A follow-up with grain cleaner Dr. Irving on July 11 is scheduled to evaluate pulmonary condition further, patient was encouraged to go to this appointment. The patient was informed of the risks associated with continued smoking and its impact on COPD management. Adherence to current therapeutic measures will continue following further pulmonary evaluation. Patient was informed and verbally consented to the use of an ambient scribe for clinic note documentation during this visit Orders: Orders 2 XR chest 2V Today R05.9 - Cough, unspecified Medications: New 2 prednisone 40 mg (2 x 20 mg) PO QAM 10 tabs 0RF Coding Level of Care Code New Pt Level 4 (42835) Diagnoses COPD exacerbation J44.1
[2024-06-27 11:33] VITALS: BP 122/78; PULSE 70; O2SAT 100
--- OUTSIDE RECORDS SUMMARY | 2024-06-27 14:01 | XMS_ITS | Encounter Summary ---
Author Organization [employer] Address [address] [facility] 7 [place] [address] Care Team Providers Care Cradle Placer Name Role Phone Bc Hunter MD Primary Care Prov ider Encounter Details Date Type Department Care Team (Late st Contact Info) Description 07/16/[address] [facility] MED & PEDS [address] [place], [place] [phone] Bc Hunter MD [address] [place] [address] Social History Tobacco Use Types Packs/Day Years Used Date Smoking Tobacco: Never Assessed Depression Answer Date Recorded Patient Health Questionnaire-9 Score 0 07/10/2022 Depression Answer Date Recorded Patient Health Questionnaire-2 Score 0 07/10/2022 Sex and Gender Information Value Date Recorded Sex Assigned at Male 01/19/2022 10:15 AM EDT Legal Sex Male 10:15 AM EDT Gender Identity Male 01/19/2022 10:15 AM EDT Sexual Orientation Straight 06/21/2024 9: 38 AM EDT COVID-19 Exposure Response Date Recorded [...] swelling. Right side. Please contact Lori @ [phone] if additional labs are requested by PCP [...] swelling. Right side. Please contact Lori @ [phone] if additional labs are requested by PCP [...] documented as of this encounter Care Teams Cradle Placer Relationship Specialty Start Date End Date Bc Hunter MD [address] [place] [id number] PCP - General Internal Medicine 01/03/19 documented as of this encounter
--- OUTSIDE RECORDS SUMMARY | 2024-06-27 14:01 | XMS_ITS | Encounter Summary ---
Author Organization [employer] Address [address] 7[address] [place] [address] Care Team Providers Care Bricklayer Sewer Name Role Phone Bc Hunter MD Primary Care Prov ider Encounter Details Date Type Department Care Team (Late st Contact Info) Description 06/27/2024 Orders Only [facility] External Provider, [facility] Social History Tobacco Use Types Packs/Day Years [...] Orientation Straight 06/21/2024 9: 38 AM EDT documented as of this encounter Plan of Treatment Not on file documented as of this encounter Procedures Procedure Name Priority Date/Time Associated Diagnosis Comments XR CHEST 2 VIEWS Routine 06/27/2024 12:2 3 PM EDT documented in this encounter Results * XR Chest 2 Views (06/27/2024 12:23 PM EDT) Anatomical Region Laterality Modality Chest Radiographic Kelly ging 06/27/2024 12:2 3 PM EDT Narrative 06/27/2024 1:08 PM EDT ? [facility] ?[address] ? [place] [address] ?XRay Report ? Signed ? Patient: Bailly,Chris ?MR#: [id number] ? : 1950 ?Acct:[id number] ? Age/Sex: 74 / M ?ADM Date: 06/27/24 ? Loc: HO.HMGCX ? Attending Dr: Yasmeen Guerra PA-C ? Ordering Physician: Yasmeen Guerra PA-C ?? Date of Service: 06/27/24 ?? Procedure(s): XR chest 2V ?? Accession Number(s): [id number] ? cc: Bc Hunter MD; Yasmeen Guerra PA-C ? EXAMINATION: ?? XR CHEST ? CLINICAL INFORMATION: ?? R05.9 - Cough, unspecified ? COMPARISON: ?? CT angiography of the chest, chest x-ray 06/14/2024 ? TECHNIQUE: ?? 2 views of the chest were obtained. ? FINDINGS: ?? The cardiac, hilar, and mediastinal contours are normal. Prior median ?? sternotomy and aortic valve replacement. ? Lungs are diffusely hyperaerated consistent with COPD. There is ?? flattening hemidiaphragms. ?? There is mild residual opacity in the right upper lobe and right lower ?? lobe distributions, significantly improved from the prior exams over ?? persistent. ?? There is no pneumothorax or pleural effusion. ? There is no focal osseous or soft tissue abnormality. ? XR/XR chest 2V ?? IMPRESSION: ?? 1. COPD. ?? 2. Significantly improved but mildly persistent persistent patchy ?? opacities right upper lobe and right lower lobe. ?? 3. Sternotomy with aortic valve replacement. ? Electronically signed by: ??Stan Samayoa MD ??06/27/2024 01:04 PM EDT RP ? Dictated By: ?Stan Samayoa MD ? Signed By: ?<Electronically signed by Stan Samayoa MD in OV> ?06/27/24 1304 ? DD/ 1223 ? TD/TT: 06/27/24 1223 ? Channel Specialist: ? Procedure Note Elkin, Image - 06/27/2024 [facility] [address] [place] [address] [place] [address] XRay Report Signed Patient: Amos Zaragoza#: [id number] : 3Acct:[id number] Age/Sex: 74 / MADM Date: 06/27/24 Loc: HO.HMGCX Attending Dr: Yasmeen Guerra PA-C Ordering Physician: Yasmeen Guerra PA-C Date of Service: 06/27/24 Procedure(s): XR chest 2V Accession Number(s): [id number] cc: Bc Hunter MD; Yasmeen Guerra PA-C EXAMINATION: XR CHEST CLINICAL INFORMATION: R05.9 - Cough, unspecified COMPARISON: CT angiography of the chest, chest x-ray 06/14/2024 TECHNIQUE: 2 views of the chest were obtained. FINDINGS: The cardiac, hilar, and mediastinal contours are normal. Prior median sternotomy and aortic valve replacement. Lungs are diffusely hyperaerated consistent with COPD. There is flattening hemidiaphragms. There is mild residual opacity in the right upper lobe and right lower lobe distributions, significantly improved from the prior exams over persistent. There is no pneumothorax or pleural effusion. There is no focal osseous or soft tissue abnormality. XR/XR chest 2V IMPRESSION: 1. COPD. 2. Significantly improved but mildly persistent persistent patchy opacities right upper lobe and right lower lobe. 3. Sternotomy with aortic valve replacement. Electronically signed by: Stan Samayoa MD 06/27/2024 01:04 PM EDT RP Dictated By: Stan Samayoa MD Signed By: <Electronically signed by Stan Samayoa MD in OV> 06/27/24 1304 DD/ 1223 TD/TT: 06/27/24 1223 Channel Specialist: [facility] External Provider IMG XR PROCEDURES Final Result documented in this encounter Visit Diagnoses Not on filedocumented in this encounter Additional Health Concerns Assessment Noted Time PHQ-9 Depression Total Score: 0 09/30/19 24 11:02 AM EDT documented as of this encounter Care Teams Bricklayer Sewer Relationship Specialty Start Date End Date Bc Hunter MD [address] [place] [address] PCP - General Internal Medicine 01/03/19 documented as of this encounter
--- OUTSIDE RECORDS SUMMARY | 2024-06-27 14:01 | XMS_ITS | Encounter Summary ---
Author Organization [employer] Address [address] [place] [address] 7 [place] [address] Care Team Providers Care Senior Front End Web Developer Name Role Phone Bc Hunter MD Primary Care Prov ider Reason for Visit * Reason Comments Med Refill Encounter Details Date Type Department Care Team ([facility] st Contact Info) Description 10/25/2022 Refill [facility] CHC MED & PEDS [address] [place], [place] [phone] Bc Hunter MD [address] [place] [address] Social History Tobacco Use Types Packs/Day Years [...] as of this encounter Care Teams Senior Front End Web Developer Relationship Specialty Start Date End Date Bc Hunter MD [address] [place] [address] PCP - General Internal Medicine 01/03/19 documented as of this encounter
--- OUTSIDE RECORDS SUMMARY | 2024-06-27 14:01 | XMS_ITS | Encounter Summary ---
Author Organization [employer] Address [address] [facility] 7 [place] [address] Care Team Providers Care General Assistant Name Role Phone Bc Hunter MD Primary Care Prov ider Reason for Visit * Reason Onset Date Comments Med Refill 05/15/2022 Encounter Details Date Type Department Care Team ([facility] st Contact Info) Description 05/15/2022 Telephone [facility] CHC MED & PEDS [address] [place] [address] Bc Hunter MD 505 [place] [address] Med Refill Social History Tobacco Use Types [...] daily dose. Call placed to [facility]. Per Della, pt is currently [...] 11:54 AM EST Tc from Amy with [facility] requesting some kinds of specific directions for warfarin (Coumadin) 2 MG tablet If any question please contact amy at [phone] documented in this encounter Plan of Treatment Not on file documented as of this encounter Visit Diagnoses Not on filedocumented in this encounter Care Teams General Assistant Relationship Specialty Start Date End Date Bc Hunter MD [address] [place] [phone] PCP - General Internal Medicine 01/03/19 documented as of this encounter
--- OUTSIDE RECORDS SUMMARY | 2024-06-27 14:01 | XMS_ITS | Clinical Summary ---
Author Organization [facility], Address [address] [place] [address] [place] [address] Phone Care Team Providers Care Saw Sharpener Name Role Phone YatesBc Primary Care Provider Allergies No known active allergies Medications D3-50 1.25 MG (94791 UT) capsule TAKE 1 CAPSULE BY MOUTH [...] Telephone [facility], [address] [place] [address] Sasha Bhatt from Last 3 [...] Visit [facility], [address] [place] [phone] Trever Lopez MD [address] [place] [phone] Health Maintenance Due Date Last Done Comments Colorectal Cancer Screening: Annual FOBT 2001 Colorectal Cancer Screening: Colonoscopy 2001 Colorectal Cancer Screening: Sigmoidoscopy 2001 Pneumococcal Vaccine: 65+ Ye ars (2 of 2 - PCV) 11/23/2015 11/22/2014 Influenza Vaccine (Season Ended) 2024 Hepatitis B Vaccine Aged Out No longe r eligible based on patient's age to complete this topic Insurance MEDICARE MEDICAID [place] Care Teams Saw Sharpener Relationship Specialty Start Date End Date Bc Yates PCP - General Internal Medicine 10/05/22
--- OUTSIDE RECORDS SUMMARY | 2024-06-27 14:01 | XMS_ITS | Encounter Summary ---
Author Organization [employer] Address [address] 7[address] [place] [address] Care Team Providers Care Compliance Testing Analyst Name Role Phone Bc Hunter MD Primary Care Prov ider Encounter Details Date Type Department Care Team (Late st Contact Info) Description 09/20/2023 Orders Only [facility] CHC MED & PEDS [address] [place], [place] [phone] Bc Hunter MD [address] [place] [address] Social History Tobacco Use Types Packs/Day Years [...] documented as of this encounter Care Teams Compliance Testing Analyst Relationship Specialty Start Date End Date Bc Hunter MD [address] [place] [address] PCP - General Internal Medicine 01/03/19 documented as of this encounter
--- OUTSIDE RECORDS SUMMARY | 2024-06-27 14:01 | XMS_ITS | Clinical Summary ---
Author Organization [facility] Address [address] [place] [address] Phone Care Team Providers Care Permit Agent Name Role Phone Bc Hunter Primary Care Provide r Encounters Date Type Department Care Team Description 06/07/2024 10:39 AM EDT - 06/07/2024 11:59 PM EDT Hospital Encounter [facility] PET Scan [address] [place] [address] Discharge Disposition: Home or Self Care from Last 3 Months Medical History Medical [...] Due Date Last Done Comments RSV Immunization Adult Patients (1 - Risk 60-74 years 1-dose series) [...] age to complete this topic Meningococcal B Vaccine Aged Out No l onger eligible based on patient's age to complete [...] Signed Date: 06/13/2024 09:29 ET Workstation ID: [id number] Transcribed By: Self Edit Transcribed Date: 06/13/2024 [...] Signed Date: 06/13/2024 09:29 ET Workstation ID: [id number] Transcribed By: Self Edit Transcribed Date: 06/13/2024 08:22 ET Lenny [facility] Final Result from Last 3 Months Insurance MEDICARE MEDICAID - [place] Care Teams Permit Agent Relationship Specialty Start Date End Date Bc Hunter [address] [place] [id number] PCP - General Internal Medicine 04/13/24
--- OUTSIDE RECORDS SUMMARY | 2024-06-27 14:01 | XMS_ITS | Encounter Summary ---
Author Organization [employer] Address [address] [facility] 7 [place] [address] Care Team Providers Care Adobe Layer Helper Name Role Phone Bc Hunter MD Primary Care Prov ider Reason for Visit * Reason Onset Date Comments Referral 12/06/2023 Encounter Details Date Type Department Care Team ([facility] st Contact Info) Description 12/06/2023 Telephone [facility] MEDICINE [address] [place] [address] Bc Hunter MD [address] [place], [place] [phone] Referral Social History Tobacco Use Types Packs/Day [...] 12/06/2023 9:45 AM EDT Tc from patients custodial calling to report the provider for podiatry has and would need to be referred to another location would like to be seen by Sarkis in the [place] location ifpossible documented in this encounter Plan of Treatment Not on file documented as of this encounter Visit Diagnoses Not on filedocumented in this encounter Additional Health Concerns Assessment Noted Time PHQ-9 Depression Total Score: 0 09/30/19 24 11:02 AM EDT documented as of this encounter Care Teams Adobe Layer Helper Relationship Specialty Start Date End Date Bc Hunter MD [address] [place] [address] PCP - General Internal Medicine 01/03/19 documented as of this encounter
--- OUTSIDE RECORDS SUMMARY | 2024-06-27 14:01 | XMS_ITS | Encounter Summary ---
Author Organization [employer] Address [address] 7[address] [place] [address] Care Team Providers Care Bag Bailer Name Role Phone Bc Hunter MD Primary Care Prov ider Reason for Visit * Reason Comments Med Change Request Encounter Details Date Type Department Care Team ([facility] Contact Info) Description 07/19/2023 Refill [facility] CHC MED & PEDS [address] [place] [address] Oralia Mazariegos FNP [address] [place] [address] Social History Tobacco Use Types Packs/Day Years [...] documented as of this encounter Care Teams Bag Bailer Relationship Specialty Start Date End Date Bc Hunter MD [address] [place] [address] PCP - General Internal Medicine 01/03/19 documented as of this encounter
--- OUTSIDE RECORDS SUMMARY | 2024-06-27 14:01 | XMS_ITS | Encounter Summary ---
Author Organization [employer] Address [address] [facility] 7 [place] [address] Care Team Providers Care Numerologist Name Role Phone Bc Hunter MD Primary Care Prov ider Reason for Visit * Reason Onset Date Comments Nurse Triage 2024 Encounter Details Date Type Department Care Team ([facility] st Contact Info) Description 2024 Telephone [facility] [address] [place] [address] Bc Hunter MD [address] [place], [place] [phone] Nurse Triage Social History Tobacco Use Types [...] encounter Miscellaneous Notes * Telephone Encounter - Clari Friend RN - 2024 4:21 PM EDT called pt to triage, spoke to wind turbine sheet metal worker, ANTONIO. pt [place]14 [place] [facility] [place] and due to some distress was sent to the ER for evaluation. pt diagnosed with Pneumonia and put onantibiotics x5 days. worker states pt eating and drinking, not having any fevers or severe/sustained sob, or other associated symptoms. given appt Wednesday with [facility] at 1:00 for exam and follow up. 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 advised home care: rest, fluids, humidifier, continue and complete the antibiotics, and return to the ER if severe symptoms. insurance verified. Protocol Used: Pneumonia Follow-up Call (Adult) Protocol-Based Disposition: See in Office or Video Visit within 3 Days Video visit offer not recorded Positive Triage Question: * Cough s/p ER visit 06/14 for Pneumonia * All higher-acuity triage questions were negative Care Advice Discussed: * Reassurance and Education - Pneumonia * Continue Antibiotic * Drink Plenty of Liquids * Drink Plenty of Fluids - Extra Notes and Warnings * Avoid Tobacco Smoke * Humidifier * Reasons To Call Back - Breathing becomes more difficult, or gets worse - Breathing not back to normal by 1 week - Fever lasts over 48 hours (2 days) on antibiotics - You become worse * Telephone Encounter - Damaris Weiss - 2024 3:49 PM EDT Tc from Patient TRANSACTION ADVISORY SERVICES MANAGER to report ED visit on : Date: 06/14 Hospital[place] [facility] [place] Seen for: pneumonia Symptomatic Yes *if yes message should go to Triage Patient advised will forward to team nurse for follow up [phone] pt documented in this encounter Plan of Treatment Not on file documented as of this encounter Visit Diagnoses Not on filedocumented in this encounter Additional Health Concerns Assessment Noted Time PHQ-9 Depression Total Score: 0 09/30/19 24 11:02 AM EDT documented as of this encounter Care Teams Numerologist Relationship Specialty Start Date End Date Bc Hunter MD [address] [place] [address] PCP - General Internal Medicine 01/03/19 documented as of this encounter
--- OUTSIDE RECORDS SUMMARY | 2024-06-27 14:01 | XMS_ITS | Encounter Summary ---
Author Organization [employer] Address [address] [facility] [address] 7 [place] [address] Care Team Providers Care Restorative Coordinator Name Role Phone Bc Hunter MD Primary Care Prov ider Reason for Visit * Reason Comments Med Refill Encounter Details Date Type Department Care Team ([facility] Contact Info) Description 05/18/2023 Refill [facility] MED & PEDS [address] [place] [address] Bc Hunter MD [address] [place] [address] Social History Tobacco Use Types Packs/Day Years [...] documented as of this encounter Care Teams Restorative Coordinator Relationship Specialty Start Date End Date Bc Hunter MD [address] [place] [address] PCP - General Internal Medicine 01/03/19 documented as of this encounter
--- OUTSIDE RECORDS SUMMARY | 2024-06-27 14:01 | XMS_ITS | Clinical Summary ---
Author Organization [employer] Address [address] [place] [address] 7t [place] [address] Care Team Providers Care Concession Worker Name Role Phone Bc Hunter MD [...] 1 tablet by mouth 2 times daily. Active divalproex (Depakote ER) 500 MG 24 hr tablet Take 2 tablets by mouth at bedtime. Active fluPHENAZine decanoate (Prolixin) 25 MG/ML injection Inject 25 mg into the shoulder, thigh, or buttocks every 28 (twenty-eight) days. Active risperiDONE (RisperDAL) 1 MG tablet Take [...] morning 3x/week as directed 100 mL 2 08/08/2 024 Active levothyroxine (Synthroid, Levoxyl) 25 MCG [...] FOR ALLERGIES 30 tablet 2 025 Active guaiFENesin (Mucinex) 600 MG 12 hr tabletIndications :Mild chronic obstructive pulmonary disease (CMS/HCC),Dyspnea on exertion Take 2 tablets (1,200 mg) by mouth 2 times daily. Do not crush, chew, or split. 10 tablet 025 2025 Active loratadine (Claritin) 10 MG tablet Take 1 tablet (10 mg) by mouth if needed each day for allergies. 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 Plan to bridge pt from Eliquis to Coumadin. May DC Eliquis once Coumadin therapeutic Coumadin dosinmg on Wednesday and Wednesday 4mg all other days of the week Plan: [facility] [place] [place] to reach out to correction to schedule INR check and re-start on [...] Other schizophrenia 09/22/2011 Overview (07/20/2023): Living in [place] Assessment & Plan (07/30/2023 12:17 AM EDT): [...] Encounters Date Type Department Care Team Description 06/27/2024 Orders Only [facility] External Provider, [facility] 06/23/2024 Telephone [facility] [address] [place] [address] Bc Hunter MD Call Back Request 06/19/2024 1:00 PM EDT Office Visit [facility] & PEDS [address] [place] [address] Zafar Richard MD Mild chronic obstructive pulmonary disease (CMS/HCC) (Primary Dx); Solitary lung nodule; Dyspnea on exertion; Smoking 06/19/2024 Travel 2024 Telephone [facility] [address] [place] [address] Bc Hunter MD Nurse Triage 06/13/2024 Orders Only [facility] EXTERNAL DATA DEPARTMENT Provider, Generic External Data 06/04/2024 Refill [facility] [address] [place] [address] Bc Hunter MD 06/01/2024 Orders Only GENERIC EXTERNAL DATA DEPARTMENT Provider, Generic External Data 05/21/[address] [facility] & PEDS [address] [place] [address] Bc Hunter MD Onychomycosis (Primary Dx) 05/21/2024 Refill [facility] [address] [place] [address] Bc Hunter MD 05/19/2024 Orders Only GENERIC EXTERNAL DATA DEPARTMENT Provider, Generic External Data 05/12/2024 Orders Only GENERIC EXTERNAL DATA DEPARTMENT Provider, Generic External Data 05/06/2024 Refill [facility] [address] [place] [address] Bc Hunter MD Mixed hyperlipidemia 05/01/2024 Orders Only GENERIC EXTERNAL DATA DEPARTMENT Provider, Generic External Data 04/27/[address] [facility] [address] [place] [address] Bc Hunter MD Lung screening 04/26/2024 11:15 AM EST Office Visit [facility] [address] [place] [address] Bc Hunter MD Acquired hypothyroidism (Primary Dx); Other iron deficiency anemia; Nodule of left lung 04/26/2024 Travel 04/24/2024 Orders Only GENERIC EXTERNAL DATA DEPARTMENT Provider, Generic External Data 04/19/2024 Travel 04/17/2024 Orders Only GENERIC EXTERNAL DATA DEPARTMENT Provider, Generic External Data 04/10/2024 Orders Only GENERIC EXTERNAL DATA DEPARTMENT Provider, Generic External Data 04/05/[address] [facility] [address] [place] [address] Bc Hunter MD Anticoagulation 04/05/2024 Orders Only GENERIC EXTERNAL DATA DEPARTMENT Provider, Generic External Data 03/29/2024 Orders Only GENERIC EXTERNAL DATA DEPARTMENT Provider, Generic External Data from Last 3 Months Social History Tobacco [...] Orientation Straight 06/21/2024 9: 38 AM EDT Last Filed Vital Signs Vital Sign Reading Time Taken Comments Blood Pressure 122/66 06/19/2024 1:09 PM EDT Pulse 85 06/19/2024 1:09 PM EDT Temperature 36.7 ??C (98 ??F) 06/19/2024 1:09 PM EDT Respiratory Rate 20 06/19/2024 1:09 PM EDT Oxygen Saturation 98% 06/19/2024 1:09 PM EDT Inhaled Oxygen Concentration - - Weight 84.4 kg (186 lb) 06/19/2024 1:09 PM EDT Height 177.8 cm (5' 10 ) 06/19/2024 1:09 PM EDT Body Mass Index 26.69 06/19/2024 1:09 PM EDT Plan of Treatment Health Maintenance Due [...] 07/19/2023 Depression Screening 09/29/2024 09/30/2023, 09/30/19 24 Alcohol/Substance Use Screening 04/26/2025 04/26/2024 Tobacco Screening 06/19/2025 06/19/2024 Lipid Panel 05/06/2028 05/06/2023, 07/10/2022 DTaP/Tdap/Td Vaccines [...] VIEWS Routine 06/27/2024 12:2 3 PM EDT PROTHROMBIN TIME WHOLE BLD POC Routine 06/13/2024 [...] Recently Relevant to Health Maintenance Results * XR Chest 2 Views (06/27/2024 12:23 PM EDT) Anatomical Region Laterality Modality Chest Radiographic Kelly ging 06/27/2024 12:2 3 PM EDT Narrative 06/27/2024 1:08 PM EDT ? [facility] ?[address] ? [place] [address] ?XRay Report ? Signed ? Patient: Chris Zaragoza ?MR#: [id number] ? : 1950 ?Acct:[id number] ? Age/Sex: 74 / M ?ADM Date: 06/27/24 ? Loc: HO.HMGCX ? Attending Dr: Yasmeen Guerra PA-C ? Ordering Physician: Yasmeen Guerra PA-C ?? Date of Service: 06/27/24 ?? Procedure(s): XR chest 2V ?? Accession Number(s): [id number] ? cc: Bc Hunter MD; Yasmeen Guerra [...] DD/ 1223 ? TD/TT: 06/27/24 1223 ? Account Solutions Analyst: ? Procedure Note Elkin, Image - 06/27/2024 [facility] [address] [place] [address] [place] [address] XRay Report Signed Patient: Amos Zaragoza#: [id number] : 3Acct:[id number] Age/Sex: 74 / MADM Date: 06/27/24 Loc: .HMGX Attending Dr: Yasmeen Guerra PA-C Ordering Physician: Yasmeen Guerra PA-C Date of Service: 06/27/24 Procedure(s): XR chest 2V Accession Number(s): [id number] cc: Bc Hunter MD; Yasmeen Guerra PA-C [...] 06/27/24 1304 DD/ 1223 TD/TT: 06/27/24 1223 Account Solutions Analyst: [facility] External Provider IMG XR PROCEDURES Final Result * (ABNORMAL) PROTHROMBIN TIME WHOLE BLD POC (06/13/2024 11:05 AM EDT) Only the most recent of10 resultswithin the time period is included. [facility] Protime 35.1(H) 11.1 - 13.5 sec [facility] 06/13/2024 11:0 5 AM EDT 06/13/2024 11:17 AM EDT Generic External Data Provider LAB BLOOD ORDERAB LES Final Result [facility] [address] [place] [phone] * (ABNORMAL) ~PT, ~INR - ANTI COAG CLINIC (06/13/2024 11:05 AM EDT) Only the most recent of10 resultswithin the time period is included. Prothrombin Time INR 2.9(H) 0.9 - 1.1 [facility] Comment:METER #: [id number] TERNATIONAL NORMALIZED RATIO (INR) REFERENCE RANGES Reference [...] Provider LAB BLOOD ORDERAB LES Final Result [facility] [address] [place] [phone] * PET/CT FDG Skull Base To Mid-Thigh (06/07/2024 3:59 PM EDT) Anatomical Region Laterality Modality Computed Tomogra phy us Historical Provider MD ALMENDAREZ CT PROCEDURES Final R esult * Lipid Panel, Standard (05/06/2023 11:48 AM EST) Triglycerides 61 <150 mg/dL [facility] Comment:Desirable Triglyceri de: less than 150 mg/dLBorderline High Triglyceride 150-199 mg/dLHigh Triglyceride: 200-499 mg/dLVery High Triglyceride: greater than or equal to 5OO mg/dL Cholesterol 166 <200 mg/dL [facility] Comment:Desirable Cholestero l: less than 200 mg/dLBorderline High Cholesterol: 200-239 mg/dLHigh Cholesterol: greater than 239 mg/dL LDL Cholesterol Calculated 94 <100 mg/dL [facility] Comment:Desirable LDL: less than 100 mg/dLNear Optimal/Above Optimal LDL: 110- 129 mg/dLBorderline High LDL: 130-159 mg/dLHigh LDL: 160-189 mg/dLVery High LDL: greater than or equal to 190 mg/dL HDL Cholesterol 60 >40 mg/dL [facility] Comment:Desirable HDL: great er than 40 mg/dL Note: This HDL assay may give artificially low results in patients with liver disease. Blood Venous blood specimen / Unknown 05/06/2023 11:48 AM EST 05/06/2023 2:09 PM EST Bc Rascon MD LAB BLOOD ORDERABL ES Final Result [facility] [address] [place] [phone] * Hepatitis C Antibody with Reflex to HCV, RNA, Quantitative, Real-Time PCR (07/10/2022 11:31 AM EDT) Hepatitis C Antibody NON-REACT DEZ NON-REACT DEZ [facility] Index 0.09 <1.00 [facility] Comment: HCV antibody was non-reactive. There is no laboratory evidence of HCV infection. In most cases, no further action is required. However, if recent HCV exposure is suspected, a test for HCV RNA (test code 26635) is suggested. For additional information please refer to http://education.BabyList/faq/ZGZ27n9 (This link is being provided for informational/ educational purposes only.) Blood Venous blood specimen / Unknown 07/10/2022 11:31 AM EDT 07/10/2022 11:32 AM EDT Narrative [facility] - 07/11/2022 5:06 AM EDT FASTING:NO FASTING: NO Bc Rascon MD LAB BLOOD ORDERABL ES Final Result Performing Organization Address City/[facility]/ZIP Co de Phone Number [facility] [address], [place] [address] [facility] [address] [place] [address] from Last 3 Months or Most Recently Relevant to Health Maintenance Insurance [facility] Care Teams Concession Worker Relationship Specialty Start Date End Date Bc Hunter MD [address] [place] [address] PCP - General Internal Medicine 01/03/19
--- OUTSIDE RECORDS SUMMARY | 2024-06-27 14:01 | XMS_ITS | Encounter Summary ---
Author Organization [employer] Address [address] [facility] 7 [place] [address] Care Team Providers Care Brass Cleaner Name Role Phone Bc Hunter MD Primary Care Prov ider Reason for Visit * Reason Onset Date Comments Call Back Request 06/23/2024 Encounter Details Date Type Department Care Team ([facility] st Contact Info) Description 06/23/2024 Telephone [facility] [address] [place] [address] Bc Hunter MD [address] [place], [place] [phone] Call Back Request Social History Tobacco Use Types Packs/Day Years [...] encounter Miscellaneous Notes * Telephone Encounter - Michelle Chi RN - 06/23/2024 3:40 PM EDT TC to Aidee from [facility]. Pt having a lung bx July 13. Pt needs Lovenox bridge so he can be off Warfarin 5 days before the procedure. Note will be routed to provider for orders. * Telephone Encounter - Az Lawrence - 06/23/2024 3:10 PM EDT Tc from Aidee with the [facility] requesting a call back regarding a Lovenox Bridge. Contact Aidee at [phone] documented in this encounter Plan of Treatment Not on file documented as of this encounter Visit Diagnoses Not on filedocumented in this encounter Additional Health Concerns Assessment Noted Time PHQ-9 Depression Total Score: 0 09/30/19 24 11:02 AM EDT documented as of this encounter Care Teams Brass Cleaner Relationship Specialty Start Date End Date Bc Hunter MD [address] [place] [address] PCP - General Internal Medicine 01/03/19 documented as of this encounter
--- OUTSIDE RECORDS SUMMARY | 2024-06-27 14:01 | XMS_ITS | Encounter Summary ---
Author Organization [employer] Address 75 [facility] 7 [place] [address] Care Team Providers Care Bartender Manager Name Role Phone Bc Hunter MD Primary Care Prov ider Reason for Visit * Reason Onset Date Comments Med Refill 05/12/2022 Encounter Details Date Type Department Care Team (Late st Contact Info) Description 05/12/2022 Telephone [facility] [address] [place] [address] Bc Hunter MD [address] [place] [address] Med Refill Social History Tobacco Use Types [...] on filedocumented in this encounter Care Teams Bartender Manager Relationship Specialty Start Date End Date Bc Hunter MD [address] [place] [address] PCP - General Internal Medicine 01/03/19 documented as of this encounter
--- OUTSIDE RECORDS SUMMARY | 2024-06-27 14:01 | XMS_ITS | Encounter Summary ---
Author Organization [employer] Address 75 [facility] 7 [place] [address] Care Team Providers Care Weed Inspector Name Role Phone Bc Hunter MD Primary Care Prov ider Encounter Details Date Type Department Care Team (Late st Contact Info) Description 05/18/2022 Orders Only [facility] MED & PEDS [address] [place], [place] [phone] Bc Hunter MD [address] [place], [place] [phone] S/P aortic valve replacement Social History Tobacco [...] means documented in this encounter Care Teams Weed Inspector Relationship Specialty Start Date End Date Bc Hunter MD [address] [place], [place] [phone] PCP - General Internal Medicine 01/03/19 documented as of this encounter
--- OUTSIDE RECORDS SUMMARY | 2024-06-27 14:01 | XMS_ITS | Encounter Summary ---
Author Organization [employer] Address [address] [facility] [address] 7[address] [place] [address] Care Team Providers Care President Finance Company Name Role Phone Bc Hunter MD Primary Care Prov ider Encounter Details Date Type Department Care Team (Late st Contact Info) Description 02/24/2022 Telephone [facility] [address] [place], [place] [phone] Bc Hunter MD [address] [place], [place] [phone] Social History Tobacco Use Types Packs/Day Years [...] on filedocumented in this encounter Care Teams President Finance Company Relationship Specialty Start Date End Date Bc Hunter MD 505 [place] [address] PCP - General Internal Medicine 01/03/19 documented as of this encounter
--- OUTSIDE RECORDS SUMMARY | 2024-06-27 14:01 | XMS_ITS | Encounter Summary ---
Author Organization [facility] Address [address] [place] [address] Phone Care Team Providers Care Wet Roller Name Role Phone Bc Yates Primary Care Provider [phone] Reason for Visit * Reason Comments Med Refill Encounter Details Date Type Department Care Team (Late st Contact Info) Description 01/13/2022 Refill [facility] [address] [place] [address] Trever Lopez MD [address] [facility] [address] [place] [address] Social History Tobacco Use Types [...] Visit [facility] [address] [place] [address] Trever Lopez MD [address] [place] [address] documented as of this encounter Visit Diagnoses Not on filedocumented in this encounter Care Teams Wet Roller Relationship Specialty Start Date End Date Bc Yates PCP - General Internal Medicine 10/05/22 documented as of this encounter
--- OUTSIDE RECORDS SUMMARY | 2024-06-27 14:01 | XMS_ITS | Encounter Summary ---
Author Organization [employer] Address 75 [facility] 7 [place] [address] Care Team Providers Care Attache Name Role Phone Bc Hunter MD Primary Care Prov ider Reason for Visit * Reason Onset Date Comments Nurse Triage 05/26/2023 Encounter Details Date Type Department Care Team (Late st Contact Info) Description 05/26/2023 Telephone [facility] [address] [place] [address] Bc Hunter MD 505 [place], [place] [phone] Nurse Triage Social History Tobacco Use Types [...] AM EST Triage call Pt is in correction, Krystin Sepulveda taking call and consent is signed by Pt for staff to speak . Pt has had some changes. Pt decided to stop all psyche medications and MD Ward Myers,discontinued them. (Stop date unknown) Pt has since that time decreased eating, appetite is poor. 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 Pt was said to be around 202lbs regularly. Pt clothes are fitting very loosely now. Pt also wanted to stop coumadin but, feather curling machine operator instructed that wouldn't be good to [...] acuity questions The caller accepted this outcome [phone] documented in this encounter Plan of Treatment Not on file documented as of this encounter Visit Diagnoses Not on filedocumented in this encounter Additional Health Concerns Assessment Noted Time PHQ-9 Depression Total Score: 0 07/11/19 23 11:26 AM EDT documented as of this encounter Care Teams Attache Relationship Specialty Start Date End Date Bc Hunter MD [address] [place] [phone] PCP - General Internal Medicine 01/03/19 documented as of this encounter
--- OUTSIDE RECORDS SUMMARY | 2024-06-27 14:01 | XMS_ITS | Encounter Summary ---
Author Organization [facility] Address [address] [place] [address] Phone Care Team Providers Care Physician Practice Market Manager Name Role Phone Bc Yates Primary Care Provider [phone] Encounter Details Date Type Department Care Team (Late st Contact Info) Description 05/26/2021 Documentation Only [facility] [address] [place] [address] Trever Lopez MD [address] [place] [address] [place] [address] Social History Tobacco Use Types [...] Visit [facility] [address] [place] [address] Trever Lopez MD [address] [place] [address] [place] [address] documented as of this encounter Visit Diagnoses Not on filedocumented in this encounter Care Teams Physician Practice Market Manager Relationship Specialty Start Date End Date Bc Yates PCP - General Internal Medicine 10/05/22 documented as of this encounter
--- OUTSIDE RECORDS SUMMARY | 2024-06-27 14:01 | XMS_ITS | Encounter Summary ---
Author Organization [employer] Address [address] [place] [address] 7 [place] [address] Care Team Providers Care Lead Performance Support Analyst Name Role Phone Bc Hunter MD Primary Care Prov ider Reason for Visit * Reason Onset Date Comments Med Refill 09/21/2022 Encounter Details Date Type Department Care Team ([facility] st Contact Info) Description 09/21/2022 Telephone [facility] CHC MED & PEDS 505 [place] [address] Bc Hunter MD 505 [place] [address] Med Refill Social History Tobacco Use Types [...] 09/23/2022 8:28 AM EDT Pt managed [place] [facility] [place]. Last INR of 3.1 noted 09/17/22. Will forward request for Rx to covering provider to review. * Telephone Encounter - Ping Nettles - 09/21/2022 10:39 AM EDT Tc from pt requesting med refill on Warfarin 1 mg tablet [id number] [place], [place] - [address] [place] [address] Please sent to documented in this encounter Plan of Treatment Not on file documented as of this encounter Visit Diagnoses Diagnosis History of Coumadin therapy- Primary S/P aortic valve replacement Heart valve replaced by other means documented in this encounter Additional Health Concerns Assessment Noted Time PHQ-9 Depression Total Score: 0 07/11/19 23 11:26 AM EDT documented as of this encounter Care Teams Lead Performance Support Analyst Relationship Specialty Start Date End Date Bc Hunter MD [address] [place] [address] PCP - General Internal Medicine 01/03/19 documented as of this encounter
== END 2024-06-27 12:47 | disposition home or self-care (01) ==
PROVIDERS: PCP Internal Medicine; Visit Provider Physician Assistant
DX: J44.1 Chronic obstructive pulmonary disease with (acute) exacerbation (principal)

== ENCOUNTER 2024-06-27 11:26 | Outpatient (REF) | payer MEDICARE, MEDICAID, SELFPAY ==
--- NOTE | ~2024-06-27 | XR_ITS ---
EXAMINATION: XR CHEST CLINICAL INFORMATION: R05.9 - Cough, unspecified COMPARISON: CT angiography of the chest, chest x-ray 06/14/2024 TECHNIQUE: 2 views of the chest were obtained. FINDINGS: The cardiac, hilar, and mediastinal contours are normal. Prior median sternotomy and aortic valve replacement. Lungs are diffusely hyperaerated consistent with COPD. There is flattening hemidiaphragms. There is mild residual opacity in the right upper lobe and right lower lobe distributions, significantly improved from the prior exams over persistent. There is no pneumothorax or pleural effusion. There is no focal osseous or soft tissue abnormality. XR/XR chest 2V IMPRESSION: 1. COPD. 2. Significantly improved but mildly persistent persistent patchy opacities right upper lobe and right lower lobe. 3. Sternotomy with aortic valve replacement. Electronically signed by: Stan Samayoa MD 06/27/2024 01:04 PM EDT
--- OUTSIDE RECORDS SUMMARY | 2024-06-27 14:45 | XMS_ITS | Encounter Summary ---
Author Organization [employer] Address [address] [place] [address] 7 [place] [address] Care Team Providers Care Laser Print Operator Name Role Phone Bc Hunter MD Primary Care Prov ider Reason for Visit * Reason Onset Date Comments Med Refill 09/21/2022 Encounter Details Date Type Department Care Team ([facility] st Contact Info) Description 09/21/2022 Telephone [facility] CHC MED & PEDS 505 [place] [address] Bc Hunter MD 505 [place] [address] Med Refill Social History Tobacco Use Types [...] 09/23/2022 8:28 AM EDT Pt [place] [facility] [place]. Last INR of 3.1 noted 09/17/22. Will forward request for Rx to covering provider to review. * Telephone Encounter - Ping Nettles - 09/21/2022 10:39 AM EDT Tc from pt requesting med refill on Warfarin 1 mg tablet [id number] - [place], [place] - [address] [place] [address] Please sent to documented in this encounter Plan of Treatment Not on file documented as of this encounter Visit Diagnoses Diagnosis History of Coumadin therapy- Primary S/P aortic valve replacement Heart valve replaced by other means documented in this encounter Additional Health Concerns Assessment Noted Time PHQ-9 Depression Total Score: 0 07/11/19 23 11:26 AM EDT documented as of this encounter Care Teams Laser Print Operator Relationship Specialty Start Date End Date Bc Hunter MD 505 [place] [address] PCP - General Internal Medicine 01/03/19 documented as of this encounter
--- OUTSIDE RECORDS SUMMARY | 2024-06-27 14:45 | XMS_ITS | Encounter Summary ---
Author Organization [employer] Address [address] [facility] 7 [place] [address] Care Team Providers Care Payment Specialist Name Role Phone Bc Hunter MD Primary Care Prov ider Reason for Visit * Reason Onset Date Comments Med Refill 05/12/2022 Encounter Details Date Type Department Care Team (Late st Contact Info) Description 05/12/[address] [facility] MEDICINE [address] [place] [address] Bc Hunter MD 505 [place] [address] Med Refill Social History Tobacco Use Types [...] on filedocumented in this encounter Care Teams Payment Specialist Relationship Specialty Start Date End Date Bc Hunter MD [address] [place] [address] PCP - General Internal Medicine 01/03/19 documented as of this encounter
--- OUTSIDE RECORDS SUMMARY | 2024-06-27 14:45 | XMS_ITS | Encounter Summary ---
Author Organization [employer] Address [address] [facility] [address] [facility] [address] 7t [place] [address] Care Team Providers Care Moving Picture Producer Name Role Phone Bc Hunter MD Primary Care Prov ider Reason for Visit * Reason Comments Med Change Request Encounter Details Date Type Department Care Team ([facility] Contact Info) Description 07/19/2023 Refill [facility] CHC MED & PEDS 505 [place] [address] Oralia Mazariegos FNP 505 [place] [address] Social History Tobacco Use Types Packs/Day Years [...] as of this encounter Care Teams Moving Picture Producer Relationship Specialty Start Date End Date Bc Hunter MD [address] [place] [address] PCP - General Internal Medicine 01/03/19 documented as of this encounter
--- OUTSIDE RECORDS SUMMARY | 2024-06-27 14:45 | XMS_ITS | Encounter Summary ---
Author Organization [employer] Address [address] [facility] [address] 7t [place] [address] Care Team Providers Care Director Investor Relations Name Role Phone Bc Hunter MD Primary Care Prov ider Encounter Details Date Type Department Care Team (Late st Contact Info) Description 09/20/2023 Orders Only [facility] CHC MED & PEDS [address] [place], [place] [phone] Bc Hunter MD 505 [place] [address] Social History Tobacco Use Types Packs/Day Years [...] as of this encounter Care Teams Director Investor Relations Relationship Specialty Start Date End Date Bc Hunter MD [address] [place] [address] PCP - General Internal Medicine 01/03/19 documented as of this encounter
--- OUTSIDE RECORDS SUMMARY | 2024-06-27 14:45 | XMS_ITS | Encounter Summary ---
Author Organization [employer] Address [address] [place] [address] 7 [place] [address] Care Team Providers Care Flame Burner Name Role Phone Bc Hunter MD Primary Care Prov ider Reason for Visit * Reason Comments Med Refill Encounter Details Date Type Department Care Team ([facility] st Contact Info) Description 10/25/2022 Refill [facility] CHC MED & PEDS 505 [place], [place] [phone] Bc Hunter MD 505 [place] [address] Social History Tobacco Use Types Packs/Day Years [...] documented as of this encounter Care Teams Flame Burner Relationship Specialty Start Date End Date Bc Hunter MD 505 [place] [address] PCP - General Internal Medicine 01/03/19 documented as of this encounter
--- OUTSIDE RECORDS SUMMARY | 2024-06-27 14:45 | XMS_ITS | Encounter Summary ---
Author Organization [employer] Address [address] [facility] 7 [place] [address] Care Team Providers Care Performance Reporter Name Role Phone Bc Hunter MD Primary Care Prov ider Reason for Visit * Reason Onset Date Comments Referral 12/06/2023 Encounter Details Date Type Department Care Team ([facility] st Contact Info) Description 12/06/2023 Telephone [facility] MEDICINE 230 [place] [address] Bc Hunter MD 505 [place], [place] [phone] Referral Social History Tobacco Use Types Packs/Day [...] 12/06/2023 9:45 AM EDT Tc from patients halfway calling to report the provider for podiatry has and would need to be referred to another location would like to be seen by Sarkis in the [place] location ifpossible documented in this encounter Plan of Treatment Not on file documented as of this encounter Visit Diagnoses Not on filedocumented in this encounter Additional Health Concerns Assessment Noted Time PHQ-9 Depression Total Score: 0 09/30/19 24 11:02 AM EDT documented as of this encounter Care Teams Performance Reporter Relationship Specialty Start Date End Date Bc Hunter MD [address] [place] [address] PCP - General Internal Medicine 01/03/19 documented as of this encounter
--- OUTSIDE RECORDS SUMMARY | 2024-06-27 14:45 | XMS_ITS | Encounter Summary ---
Author Organization [employer] Address [address] [facility] 7 [place] [address] Care Team Providers Care Multi Purpose Machine Operator Name Role Phone Bc Hunter MD Primary Care Prov ider Reason for Visit * Reason Onset Date Comments Med Refill 05/15/2022 Encounter Details Date Type Department Care Team ([facility] st Contact Info) Description 05/15/2022 Telephone [facility] CHC MED & PEDS 505 [place] [address] Bc Hunter MD 505 [place] [address] Med Refill Social History Tobacco Use Types [...] a max daily dose. Call placed to [facility] [place]. Per Della, pt is currently [...] 11:54 AM EST Tc from Amy with [facility] requesting some kinds of specific directions for warfarin (Coumadin) 2 MG tablet If any question please contact amy at [phone] documented in this encounter Plan of Treatment Not on file documented as of this encounter Visit Diagnoses Not on filedocumented in this encounter Care Teams Multi Purpose Machine Operator Relationship Specialty Start Date End Date Bc Hunter MD [address] [place] [address] PCP - General Internal Medicine 01/03/19 documented as of this encounter
--- OUTSIDE RECORDS SUMMARY | 2024-06-27 14:45 | XMS_ITS | Encounter Summary ---
Author Organization [employer] Address [address] [facility] [address] [facility] [address] 7t [place] [address] Care Team Providers Care Cook Helper Name Role Phone Bc Hunter MD Primary Care Prov ider Encounter Details Date Type Department Care Team (Late st Contact Info) Description 06/27/2024 Orders Only [facility] External Provider, [facility] Social History Tobacco Use Types Packs/Day [...] EDT ? [facility] ?[address] ? [place] [address] ?XRay Report ? Signed ? Patient: Bailly,Chris ?MR#: [id number] ? : 1950 ?Acct:[id number] ? Age/Sex: 74 / M ?ADM Date: 06/27/24 ? Loc: HO.HMGCX ? Attending Dr: Yasmeen Guerra PA-C ? Ordering Physician: Yasmeen Guerra PA-C ?? Date of Service: 06/27/24 ?? Procedure(s): XR chest 2V ?? Accession Number(s): [id number] ? cc: Bc Hunter MD; Yasmeen Guerra [...] DD/ 1223 ? TD/TT: 06/27/24 1223 ? 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 History: ? Procedure Note El[place], Image - 06/27/2024 [facility] Adult Primary Care [address] [place] [address] 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 History: [facility] External Provider IMG XR PROCEDURES Final Result documented in this encounter Visit Diagnoses Not on filedocumented in this encounter Additional Health Concerns Assessment Noted Time PHQ-9 Depression Total Score: 0 09/30/19 24 11:02 AM EDT documented as of this encounter Care Teams Cook Helper Relationship Specialty Start Date End Date Bc Hunter MD [address] [place] [address] PCP - General Internal Medicine 01/03/19 documented as of this encounter
--- OUTSIDE RECORDS SUMMARY | 2024-06-27 14:45 | XMS_ITS | Clinical Summary ---
Author Organization [facility], Address [address] [place] [address] [place] [address] Phone Care Team Providers Care Structural Welder Name Role Phone YatesBc Primary Care Provider Allergies No known active allergies Medications D3-50 1.25 MG (31316 UT) capsule TAKE 1 CAPSULE BY MOUTH [...] Telephone [facility], [address] [place] [place] [address] Sasha Bhatt from Last 3 [...] Visit [facility], [address] [place] [phone] Trever Lopez MD [address] [facility] [place] [phone] Health Maintenance Due Date Last Done Comments Colorectal Cancer Screening: Annual FOBT 2001 Colorectal Cancer Screening: Colonoscopy 2001 Colorectal Cancer Screening: Sigmoidoscopy 2001 Pneumococcal Vaccine: 65+ Ye ars (2 of 2 - PCV) 11/23/2015 11/22/2014 Influenza Vaccine (Season Ended) 2024 Hepatitis B Vaccine Aged Out No longe r eligible based on patient's age to complete this topic Insurance MEDICARE MEDICAID [place] Care Teams Structural Welder Relationship Specialty Start Date End Date Bc Yates PCP - General Internal Medicine 10/05/22
--- OUTSIDE RECORDS SUMMARY | 2024-06-27 14:45 | XMS_ITS | Encounter Summary ---
Author Organization [employer] Address [address] 7 [place] [address] Care Team Providers Care Filtering Machine Tender Name Role Phone Bc Hunter MD Primary Care Prov ider Reason for Visit * Reason Comments Med Refill Encounter Details Date Type Department Care Team ([facility] Contact Info) Description 05/18/2023 Refill [facility] CHC MED & PEDS 505 [place] [address] Bc Hunter MD 505 [place] [address] Social History Tobacco Use Types Packs/Day Years [...] documented as of this encounter Care Teams Filtering Machine Tender Relationship Specialty Start Date End Date Bc Hunter MD [address] [place] [address] PCP - General Internal Medicine 01/03/19 documented as of this encounter
--- OUTSIDE RECORDS SUMMARY | 2024-06-27 14:45 | XMS_ITS | Encounter Summary ---
Author Organization [employer] Address [address] [facility] 7 [place] [address] Care Team Providers Care Surveillance Sensor Operator Name Role Phone Bc Hunter MD Primary Care Prov ider Reason for Visit * Reason Onset Date Comments Call Back Request 06/23/2024 Encounter Details Date Type Department Care Team ([facility] st Contact Info) Description 06/23/2024 Telephone [facility] MEDICINE [address] [place] [address] Bc Hunter MD 505 [place], [place] [phone] Call Back Request Social History Tobacco Use [...] 3:40 PM EDT TC to Aidee from [facility]. Pt having a lung bx July 13. Pt needs Lovenox bridge so he can be off Warfarin 5 days before the procedure. Note will be routed to provider for orders. * Telephone Encounter - Az Lawrence - 06/23/2024 3:10 PM EDT Tc from Aidee with the [facility] requesting a call back regarding a Lovenox Bridge. Contact Aidee at [phone] documented in this encounter Plan of Treatment Not on file documented as of this encounter Visit Diagnoses Not on filedocumented in this encounter Additional Health Concerns Assessment Noted Time PHQ-9 Depression Total Score: 0 09/30/19 24 11:02 AM EDT documented as of this encounter Care Teams Surveillance Sensor Operator Relationship Specialty Start Date End Date Bc Hunter MD [address] [place] [address] PCP - General Internal Medicine 01/03/19 documented as of this encounter
--- OUTSIDE RECORDS SUMMARY | 2024-06-27 14:45 | XMS_ITS | Clinical Summary ---
Author Organization [address] [facility] Address [address] [place] [address] Phone Care Team Providers Care Plastic Sheets Finishing Supervisor Name Role Phone Bc Hunter Primary Care Provide r Encounters Date Type Department Care Team Description 06/07/2024 10:39 AM EDT - 06/07/2024 11:59 PM EDT Hospital Encounter [facility] PET Scan [address] [place] [address] Discharge Disposition: Home or Self [...] Signed Date: 06/13/2024 09:29 ET Workstation ID: [id number] Transcribed By: Self Edit Transcribed Date: 06/13/2024 [...] Signed Date: 06/13/2024 09:29 ET Workstation ID: [id number] Transcribed By: Self Edit Transcribed Date: 06/13/2024 08:22 ET Lenny Irving [facility] Final Result from Last 3 Months Insurance MEDICARE MEDICAID - [place] Care Teams Plastic Sheets Finishing Supervisor Relationship Specialty Start Date End Date Bc Hunter [address] [place] [address] PCP - General Internal Medicine 04/13/24
--- OUTSIDE RECORDS SUMMARY | 2024-06-27 14:45 | XMS_ITS | Encounter Summary ---
Author Organization [employer] Address [address] [facility] 7 [place] [address] Care Team Providers Care Bench Worker Hollow Handle Name Role Phone Bc Hunter MD Primary Care Prov ider Reason for Visit * Reason Onset Date Comments Nurse Triage 2024 Encounter Details Date Type Department Care Team ([facility] st Contact Info) Description 2024 Telephone [facility] MEDICINE 230 [place] [address] Bc Hunter MD 505 [place], [place] [phone] Nurse Triage Social History Tobacco Use Types [...] EDT called pt to triage, spoke to account group supervisor, ANTONIO. pt was seen on 06/14 by [facility] pulmonology on 06/14 and due to some distress was sent to the ER for evaluation. pt diagnosed with Pneumonia and put onantibiotics x5 days. worker states pt eating and drinking, not having any fevers or severe/sustained sob, or other associated symptoms. 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 to report ED visit on : Date: 06/14 Hospital: [facility] Seen for: pneumonia Symptomatic Yes *if yes message should go to Triage Patient advised will forward to team nurse for follow up [phone] pt documented in this encounter Plan of Treatment Not on file documented as of this encounter Visit Diagnoses Not on filedocumented in this encounter Additional Health Concerns Assessment Noted Time PHQ-9 Depression Total Score: 0 09/30/19 24 11:02 AM EDT documented as of this encounter Care Teams Bench Worker Hollow Handle Relationship Specialty Start Date End Date Bc Hunter MD [address] [place] [address] PCP - General Internal Medicine 01/03/19 documented as of this encounter
--- OUTSIDE RECORDS SUMMARY | 2024-06-27 14:45 | XMS_ITS | Encounter Summary ---
Author Organization [employer] Address [address] [facility] 7 [place] [address] Care Team Providers Care Car Wash Attendant Name Role Phone Bc Hunter MD Primary Care Prov ider Reason for Visit * Reason Onset Date Comments Nurse Triage 05/26/2023 Encounter Details Date Type Department Care Team (Late st Contact Info) Description 05/26/2023 Telephone [facility] MEDICINE 230 [place] [address] Bc Hunter MD 505 [place], [place] [phone] Nurse Triage Social History Tobacco Use Types [...] appetite is poor. Pt weight yesterday at wire twister apt is 173lbs. Pt was said to be around 202lbs regularly. Pt clothes are fitting very loosely now. Pt also wanted to stop coumadin but, wire twister instructed that wouldn't be good to do [...] acuity questions The caller accepted this outcome [phone] documented in this encounter Plan of Treatment Not on file documented as of this encounter Visit Diagnoses Not on filedocumented in this encounter Additional Health Concerns Assessment Noted Time PHQ-9 Depression Total Score: 0 07/11/19 23 11:26 AM EDT documented as of this encounter Care Teams Car Wash Attendant Relationship Specialty Start Date End Date Bc Hunter MD [address] [place] [address] PCP - General Internal Medicine 01/03/19 documented as of this encounter
--- OUTSIDE RECORDS SUMMARY | 2024-06-27 14:45 | XMS_ITS | Encounter Summary ---
Author Organization [facility] Address [address] [place] [address] Phone Care Team Providers Care Graphic Artist Name Role Phone Bc Yates Primary Care Provider [phone] Reason for Visit * Reason Comments Med Refill Encounter Details Date Type Department Care Team (Late st Contact Info) Description 01/13/2022 Refill [facility] [address] [place] [address] Trever Lopez MD [address] [place] [address] Social History Tobacco Use Types [...] Visit [facility] [address] [place] [address] Trever Lopez MD [address] [place] [address] documented as of this encounter Visit Diagnoses Not on filedocumented in this encounter Care Teams Graphic Artist Relationship Specialty Start Date End Date Bc Yates PCP - General Internal Medicine 10/05/22 documented as of this encounter
--- OUTSIDE RECORDS SUMMARY | 2024-06-27 14:45 | XMS_ITS | Clinical Summary ---
Author Organization [email or web address] Address [address] [place] [address] 7t [place] [address] Care Team Providers Care Kiln Firer Helper Name Role Phone Bc Hunter MD [...] Will order a follow up LDCT scan, wild animal caretaker was told to contact pulmonology office [...] valve replacement 04/28/2022 Overview (07/20/2023): Followed by [facility] Coumadin Clinic Assessment & Plan (07/20/2023 8:46 PM EDT): Cardiology consult scheduled 07/20/23 No reported hx of bleeding, no reported chest pain/shortness of breath Discussed with PCP and [facility] Coumadin Clinic (Lori FLETCHER). Plan to bridge pt from Eliquis to Coumadin. May DC Eliquis once Coumadin therapeutic Coumadin dosinmg on Wednesday and Wednesday 4mg all other days of the week Plan: [facility] Coagulation clinic to reach out to correction [...] Department Care Team Description 06/27/2024 Orders Only [facility] External Provider, [facility] 06/23/2024 Telephone [facility] [address] [place] [address] Bc Hunter MD Call Back Request 06/19/2024 1:00 PM EDT Office Visit [facility] [address] [place] [address] Zafar Richard MD Mild chronic obstructive pulmonary disease (CMS/HCC) (Primary Dx); Solitary lung nodule; Dyspnea on exertion; Smoking 06/19/2024 Travel 2024 Telephone [facility] [address] [place] [address] Bc Hunter MD Nurse Triage 06/13/2024 Orders Only GENERIC EXTERNAL DATA DEPARTMENT Provider, Generic External Data 06/04/2024 Refill [facility] [address] [place] [address] Bc Hunter MD 06/01/2024 Orders Only GENERIC EXTERNAL DATA DEPARTMENT Provider, Generic External Data 05/21/2024 Orders Only [facility] [address] [place] [address] Bc Hunter MD Onychomycosis (Primary Dx) 05/21/2024 Refill [facility] [address] [place] [address] Bc Hunter MD 05/19/2024 Orders Only GENERIC EXTERNAL DATA DEPARTMENT Provider, Generic External Data 05/12/2024 Orders Only GENERIC EXTERNAL DATA DEPARTMENT Provider, Generic External Data 05/06/2024 Refill [facility] [address] [place] [address] Bc Hunter MD Mixed hyperlipidemia 05/01/2024 Orders Only GENERIC EXTERNAL DATA DEPARTMENT Provider, Generic External Data 04/27/2024 Telephone [facility] [address] [place] [address] Bc Hunter MD Lung screening 04/26/2024 11:15 AM EST Office Visit [facility] [address] [place] [address] Bc Hunter MD Acquired hypothyroidism (Primary Dx); Other iron deficiency anemia; Nodule of left lung 04/26/2024 Travel 04/24/2024 Orders Only GENERIC EXTERNAL DATA DEPARTMENT Provider, Generic External Data 04/19/2024 Travel 04/17/2024 Orders Only GENERIC EXTERNAL DATA DEPARTMENT Provider, Generic External Data 04/10/2024 Orders Only GENERIC EXTERNAL DATA DEPARTMENT Provider, Generic External Data 04/05/2024 Telephone [facility] [address] [place] [address] Bc Hunter MD Anticoagulation 04/05/2024 Orders Only [...] EDT Narrative 06/27/2024 1:08 PM EDT ? [facility] ?[address] ? [place] [address] ?XRay Report ? Signed ? Patient: Chris Zaragoza ?MR#: [id number] ? : 1950 ?Acct:[id number] ? Age/Sex: 74 / M ?ADM Date: 06/27/24 ? Loc: HO.HMGCX ? Attending Dr: Yasmeen Guerra PA-C ? Ordering Physician: Yasmeen Guerra PA-C ?? Date of Service: 06/27/24 ?? Procedure(s): XR chest 2V ?? Accession Number(s): [id number] ? cc: Bc Hunter MD; Yasmeen Guerra [...] DD/ 1223 ? TD/TT: 06/27/24 1223 ? Automobile Mechanic Apprentice: ? Procedure Note [place], Image - 06/27/2024 [facility] [address] [place] [address] [place] [address] XRay Report Signed Patient: Amos Zaragoza#: [id number] : 3Acct:[id number] Age/Sex: 74 / MADM Date: 06/27/24 Loc: .HMGX Attending Dr: Yasmeen Guerra PA-C Ordering Physician: Yasmeen Guerra PA-C Date of Service: 06/27/24 Procedure(s): XR chest 2V Accession Number(s): [id number] cc: Bc Hunter MD; Yasmeen Guerra PA-C [...] 06/27/24 1304 DD/ 1223 TD/TT: 06/27/24 1223 Automobile Mechanic Apprentice: [facility] External Provider IMG XR PROCEDURES Final Result * (ABNORMAL) PROTHROMBIN TIME WHOLE BLD POC (06/13/2024 11:05 AM EDT) Only the most recent of10 resultswithin the time period is included. [facility] Protime 35.1(H) 11.1 - 13.5 sec [facility] 06/13/2024 11:0 5 AM EDT 06/13/2024 11:17 AM EDT Generic External Data Provider LAB BLOOD ORDERAB LES Final Result [facility] [address] [place] [phone] * (ABNORMAL) ~PT, ~INR - ANTI COAG CLINIC (06/13/2024 11:05 AM EDT) Only the most recent of10 resultswithin the time period is included. Prothrombin Time INR 2.9(H) 0.9 - 1.1 [facility] Comment:METER #: [id number] TERNATIONAL NORMALIZED RATIO (INR) REFERENCE RANGES Reference [...] Provider LAB BLOOD ORDERAB LES Final Result [facility] [address] [place] [phone] * PET/CT FDG Skull Base To Mid-Thigh (06/07/2024 3:59 PM EDT) Anatomical Region Laterality Modality Computed Tomogra phy us Historical Provider MD ALMENDAREZ CT PROCEDURES Final R esult * Lipid Panel, Standard (05/06/2023 11:48 AM EST) Triglycerides 61 <150 mg/dL [facility] Comment:Desirable Triglyceri de: less than 150 mg/dLBorderline High Triglyceride 150-199 mg/dLHigh Triglyceride: 200-499 mg/dLVery High Triglyceride: greater than or equal to 5OO mg/dL Cholesterol 166 <200 mg/dL [facility] Comment:Desirable Cholestero l: less than 200 mg/dLBorderline High Cholesterol: 200-239 mg/dLHigh Cholesterol: greater than 239 mg/dL LDL Cholesterol Calculated 94 <100 mg/dL [facility] Comment:Desirable LDL: less than 100 mg/dLNear Optimal/Above Optimal LDL: 110- 129 mg/dLBorderline High LDL: 130-159 mg/dLHigh LDL: 160-189 mg/dLVery High LDL: greater than or equal to 190 mg/dL HDL Cholesterol 60 >40 mg/dL [facility] Comment:Desirable HDL: great er than 40 mg/dL Note: This HDL assay may give artificially low results in patients with liver disease. Blood Venous blood specimen / Unknown 05/06/2023 11:48 AM EST 05/06/2023 2:09 PM EST Bc Rascon MD LAB BLOOD ORDERABL ES Final Result [facility] [address] [place] [phone] * Hepatitis C Antibody with Reflex to HCV, RNA, Quantitative, Real-Time PCR (07/10/2022 11:31 AM EDT) Hepatitis C Antibody NON-REACT DEZ NON-REACT DEZ [facility] ([email or web address]) Index 0.09 <1.00 [facility] ([email or web address]) Comment: HCV antibody was non-reactive. There is no laboratory evidence of HCV infection. In most cases, no further action is required. However, if recent HCV exposure is suspected, a test for HCV RNA (test code 85499) is suggested. For additional information please refer to http://education.[employer]/faq/CPI20i8 (This link is being provided for informational/ educational purposes only.) Blood Venous blood specimen / Unknown 07/10/2022 11:31 AM EDT 07/10/2022 11:32 AM EDT Narrative [facility] - 07/11/2022 5:06 AM EDT FASTING:NO FASTING: NO Bc Rascon MD LAB BLOOD ORDERABL ES Final Result Performing Organization Address City/[facility]/ZIP Co de Phone Number [facility] [address], [place] [address] [facility] ([email or web address]) [address] [place] [address] from Last 3 Months or Most Recently Relevant to Health Maintenance Insurance MEDICARE [facility] Care Teams Kiln Firer Helper Relationship Specialty Start Date End Date Bc Hunter MD [address] [place] [address] PCP - General Internal Medicine 01/03/19
--- OUTSIDE RECORDS SUMMARY | 2024-06-27 14:45 | XMS_ITS | Encounter Summary ---
Author Organization [email or web address] Address [address] [facility] 7 [place] [address] Care Team Providers Care Conduit Mechanic Name Role Phone Bc Hunter MD Primary Care Prov ider Encounter Details Date Type Department Care Team (Late st Contact Info) Description 05/18/2022 Orders Only [facility] MED [facility] PEDS [address] [place], [place] [phone] Bc Hunter MD [address] [place], [place] [phone] S/P aortic valve replacement Social History Tobacco [...] means documented in this encounter Care Teams Conduit Mechanic Relationship Specialty Start Date End Date Bc Hunter MD [address] [place], [place] [phone] PCP - General Internal Medicine 01/03/19 documented as of this encounter
--- OUTSIDE RECORDS SUMMARY | 2024-06-27 14:45 | XMS_ITS | Encounter Summary ---
Author Organization [facility] Address [address] [place] [address] Phone Care Team Providers Care Insurance Adjustor Name Role Phone Bc Yates Primary Care Provider [phone]- [phone] Encounter Details Date Type Department Care Team (Late st Contact Info) Description 05/26/2021 Documentation Only [facility] [address] [place] [address] Trever Lopez MD [address] [place] [address] [place] [address] Social History Tobacco Use Types [...] Visit [facility] [address] [place] [address] Trever Lopez MD [address] [place] [address] [place] [address] documented as of this encounter Visit Diagnoses Not on filedocumented in this encounter Care Teams Insurance Adjustor Relationship Specialty Start Date End Date Bc Yates PCP - General Internal Medicine 10/05/22 documented as of this encounter
--- OUTSIDE RECORDS SUMMARY | 2024-06-27 14:45 | XMS_ITS | Encounter Summary ---
Author Organization [employer] Address [address] [facility] 7 [place] [address] Care Team Providers Care Training Development Specialist Name Role Phone Bc Hunter MD Primary Care Prov ider Encounter Details Date Type Department Care Team (Late st Contact Info) Description 07/16/2022 Telephone [facility] MED [facility] PEDS [address] [place], [place] [phone] Bc Hunter MD [address] [place] [address] Social History Tobacco Use Types Packs/Day Years [...] swelling. Right side. Please contact Lori @ [phone] if additional labs are requested by PCP [...] swelling. Right side. Please contact Lori @ [phone] if additional labs are requested by PCP [...] documented as of this encounter Care Teams Training Development Specialist Relationship Specialty Start Date End Date Bc Hunter MD [address] [place] [address] PCP - General Internal Medicine 01/03/19 documented as of this encounter
--- OUTSIDE RECORDS SUMMARY | 2024-06-27 14:45 | XMS_ITS | Encounter Summary ---
Author Organization [employer] Address [address] [facility] [address] 7[address] [place] [address] Care Team Providers Care Dean Of Admissions Name Role Phone Bc Hunter MD Primary Care Prov ider Encounter Details Date Type Department Care Team (Late st Contact Info) Description 02/24/2022 Telephone [facility] [address] [place], [place] [phone] Bc Hunter MD [address] [place], [place] [phone] Social History Tobacco Use Types Packs/Day Years [...] on filedocumented in this encounter Care Teams Dean Of Admissions Relationship Specialty Start Date End Date Bc Hunter MD [address] [place] [address] PCP - General Internal Medicine 01/03/19 documented as of this encounter
== END 2024-06-27 11:27 | disposition home or self-care (01) ==
LOC: HO.HMGCX 11:26
PROVIDERS: PCP Internal Medicine; Visit Provider Physician Assistant
DX: J44.1 Chronic obstructive pulmonary disease with (acute) exacerbation (principal); R05.9 Cough, unspecified
CPT/HCPCS: 71046; 99202

== ENCOUNTER → 2024-06-27 12:11 | Outpatient (BNV) | payer MEDICARE, MEDICAID, SELFPAY | PROVIDERS: PCP Internal Medicine; Visit Provider Radiology Diagnostic Radiology | DX: J44.9 Chronic obstructive pulmonary disease, unspecified (principal) | CPT/HCPCS: 71046 ==

== ENCOUNTER 2024-06-28 10:17 | Outpatient (AMB) | payer MEDICARE, MEDICAID, SELFPAY ==
--- NOTE | 2024-06-28 10:52 | MHC.OFFVISCO ---
Intake Intake Visit Reasons: Anticoagulation Allergies No Known Allergies Allergy (Mild, Verified 06/28/24 10:25) NOT APPLICABLE Medication List - Last Reconciled 06/28/24 by Magdalena Echeverria RN albuterol sulfate 90 mcg/actuation (Ventolin HFA) 1 puff inhalation RQ4H PRN amantadine HCl 100 mg PO BID atorvastatin 40 mg PO BEDTIME carbamide peroxide (Debrox) 5 DROPS EACH EAR EVERY 2 WEEKS cholecalciferol (vitamin D3) (Vitamin D3) 25 mcg PO QAM dicyclomine 20 mg PO BID ferrous sulfate 324 mg PO DAILY [FLUCINOLONE TOPICAL DAILY ] levothyroxine 25 mcg PO DAILY@0600 loratadine 10 mg PO DAILY magnesium oxide 400 mg PO BIDPC multivitamin with folic acid 400 mcg (Daily-Stanley (with folic acid)) 1 tab PO DAILY pantoprazole 40 mg PO BID prednisone 40 mg (2 x 20 mg) PO QAM revefenacin (Yupelri) 175 mcg (3 mL) inhalation DAILY 30 days risperidone (Risperdal) 4 mg PO BID tamsulosin 0.4 mg PO BEDTIME valproic acid 1000mg orally daily; warfarin See Protocol 2 mg orally 4MG DAILY OR DIRECTED; 4MG DAILY OR DIRECTED Nursing Note PT.HERE TODAY WITH PCT FOR INR. UNABLE TO GET READING FROM BLOOD SPECIMEN POSSIBLY DUE TO JARRING OF METER. PT. REFUSES ANY FURTHER PUNCTURES AND BECAME QUITE ADAMANT ABOUT THIS. WILL CONTINUE PRESENT DOSE AND RETURN FOR INR TOMORROW(06/29). LUNG BX IS PLANNED FOR 07/13 WITH A 5 DAY HOLD. PT. STATED THAT HE REFUSES LOVENOX PRIOR TO PROCEDURE. PT.IS DEFINATELY AGITATED TODAY, BUT AGREES TO 06/29 APPT. Anti-Coag Initial Assessment Social Hx Patient Tobacco Use Status: Refuse Tobacco use screen alcohol intake: never Coding Level of Care Code Est Patient Level 1 Diagnoses Current use of anticoagulant therapy Z79.01 Assessment & Plan Assessment & Plan (1) Current use of anticoagulant therapy: Code(s): Z79.01 - care home (current) use of anticoagulants Category: Medical
--- OUTSIDE RECORDS SUMMARY | 2024-06-28 11:36 | XMS_ITS | Encounter Summary ---
Author Organization [employer] Address 75 [facility] 7 [place] [address] Care Team Providers Care Benefits Assistant Name Role Phone Bc Hunter MD Primary Care Prov ider Reason for Visit * Reason Onset Date Comments Nurse Triage 05/26/2023 Encounter Details Date Type Department Care Team (Late st Contact Info) Description 05/26/2023 Telephone [facility] [address] [place] [address] Bc Hunter MD [address] [place], [place] [phone] Nurse Triage Social History Tobacco Use Types [...] appetite is poor. Pt weight yesterday at watch engineer apt is 173lbs. Pt was said to be around 202lbs regularly. Pt clothes are fitting very loosely now. Pt also wanted to stop coumadin but, watch engineer instructed that wouldn't be good to do [...] acuity questions The caller accepted this outcome [phone] documented in this encounter Plan of Treatment Not on file documented as of this encounter Visit Diagnoses Not on filedocumented in this encounter Additional Health Concerns Assessment Noted Time PHQ-9 Depression Total Score: 0 07/11/19 23 11:26 AM EDT documented as of this encounter Care Teams Benefits Assistant Relationship Specialty Start Date End Date Bc Hunter MD [address] [place] [address] PCP - General Internal Medicine 01/03/19 documented as of this encounter
--- OUTSIDE RECORDS SUMMARY | 2024-06-28 11:36 | XMS_ITS | Clinical Summary ---
Author Organization [facility], Address [address] [place] [address] [place] [address] Phone Care Team Providers Care Dolphin Researcher Name Role Phone YatesBc Primary Care Provider Allergies No known active allergies Medications D3-50 1.25 MG (49658 UT) capsule TAKE 1 CAPSULE BY MOUTH [...] Telephone [facility], [address] [place] [address] Sasha Bhatt from Last 3 [...] Visit [facility], [address] [place] [phone] Trever Lopez MD [address] [facility] [place] [phone] Health Maintenance Due Date Last Done Comments Colorectal Cancer Screening: Annual FOBT 2001 Colorectal Cancer Screening: Colonoscopy 2001 Colorectal Cancer Screening: Sigmoidoscopy 2001 Pneumococcal Vaccine: 65+ Ye ars (2 of 2 - PCV) 11/23/2015 11/22/2014 Influenza Vaccine (Season Ended) 2024 Hepatitis B Vaccine Aged Out No longe r eligible based on patient's age to complete this topic Insurance MEDICARE MEDICAID [place] Care Teams Dolphin Researcher Relationship Specialty Start Date End Date Bc Yates PCP - General Internal Medicine 10/05/22
--- OUTSIDE RECORDS SUMMARY | 2024-06-28 11:36 | XMS_ITS | Encounter Summary ---
Author Organization [facility] Address [address] [place] [address] Phone Care Team Providers Care Dry Cleaner Apprentice Name Role Phone Bc Yates Primary Care Provider [phone]- [phone] Encounter Details Date Type Department Care Team (Late st Contact Info) Description 05/26/2021 Documentation Only [facility] [address] [place] [address] Trever Lopez MD [address] [place] [address] [place] [address] Social History Tobacco Use Types [...] Visit [facility] [address] [place] [address] Trever Lopez MD [address] [place] [address] [place] [address] documented as of this encounter Visit Diagnoses Not on filedocumented in this encounter Care Teams Dry Cleaner Apprentice Relationship Specialty Start Date End Date Bc Yates PCP - General Internal Medicine 10/05/22 documented as of this encounter
--- OUTSIDE RECORDS SUMMARY | 2024-06-28 11:36 | XMS_ITS | Encounter Summary ---
Author Organization [employer] Address [address] [facility] [address] 7t [place] [address] Care Team Providers Care Vertical Lathe Operator Name Role Phone Bc Hunter MD Primary Care Prov ider Encounter Details Date Type Department Care Team (Late st Contact Info) Description 09/20/2023 Orders Only [facility] MED & PEDS [address] [place], [place] [phone] Bc Hunter MD 505 [place] [address] Social History Tobacco Use Types Packs/Day Years [...] documented as of this encounter Care Teams Vertical Lathe Operator Relationship Specialty Start Date End Date Bc Hunter MD [address] [place] [address] PCP - General Internal Medicine 01/03/19 documented as of this encounter
--- OUTSIDE RECORDS SUMMARY | 2024-06-28 11:36 | XMS_ITS | Encounter Summary ---
Author Organization [employer] Address [address] [facility] 7 [place] [address] Care Team Providers Care J2Ee Developer Name Role Phone Bc Hunter MD Primary Care Prov ider Encounter Details Date Type Department Care Team (Late st Contact Info) Description 07/16/2022 Telephone [facility] MED & PEDS [address] [place], [place] [phone] Bc Hunter MD [address] [place] [address] Social History Tobacco Use Types Packs/Day Years [...] swelling. Right side. Please contact Lori @ [phone] if additional labs are requested by PCP [...] swelling. Right side. Please contact Lori @ [phone] if additional labs are requested by PCP [...] documented as of this encounter Care Teams J2Ee Developer Relationship Specialty Start Date End Date Bc Hunter MD [address] [place] [address] PCP - General Internal Medicine 01/03/19 documented as of this encounter
--- OUTSIDE RECORDS SUMMARY | 2024-06-28 11:36 | XMS_ITS | Encounter Summary ---
Author Organization [employer] [facility] [employer] Address [address] [facility] 7 [place] [address] Care Team Providers Care Rn Managed Care Name Role Phone Bc Hunter MD Primary Care Prov ider Reason for Visit * Reason Onset Date Comments Med Refill 05/12/2022 Encounter Details Date Type Department Care Team (Late st Contact Info) Description 05/12/2022 Telephone [facility]ICINE [address] [place] [address] Bc Hunter MD [address] [place] [address] Med Refill Social History Tobacco Use Types [...] on filedocumented in this encounter Care Teams Rn Managed Care Relationship Specialty Start Date End Date Bc Hunter MD [address] [place] [address] PCP - General Internal Medicine 01/03/19 documented as of this encounter
--- OUTSIDE RECORDS SUMMARY | 2024-06-28 11:36 | XMS_ITS | Encounter Summary ---
Author Organization [facility] Address [address] [place] [address] Phone Care Team Providers Care Machine Maintenance Technician Name Role Phone Bc Yates Primary Care Provider [phone]- [phone] Reason for Visit * Reason Comments Med Refill Encounter Details Date Type Department Care Team (Late st Contact Info) Description 01/13/2022 Refill [facility] [address] [place] [address] Trever Lopez MD [address] [facility] [place] [address] Social History Tobacco Use Types [...] Visit [facility] [address] [facility] [place] [address] Trever Lopez MD [address] [facility] [place] [address] documented as of this encounter Visit Diagnoses Not on filedocumented in this encounter Care Teams Machine Maintenance Technician Relationship Specialty Start Date End Date Bc Yates PCP - General Internal Medicine 10/05/22 documented as of this encounter
--- OUTSIDE RECORDS SUMMARY | 2024-06-28 11:36 | XMS_ITS | Clinical Summary ---
Author Organization [address] [facility] Address [address] [place] [address] Phone Care Team Providers Care Stump Shooter Name Role Phone Bc Hunter Primary Care Provide r Encounters Date Type Department Care Team Description 06/07/2024 10:39 AM EDT - 06/07/2024 11:59 PM EDT Hospital Encounter [facility] PET Scan [address] [place] [address] Discharge Disposition: Home or Self [...] Vaccine ( season) 2023 01/09/2021, 05/16/2020, 04/25/2020 Pneumococcal Vaccine: 50+ Years (3 of 3 - PCV20 or PCV21) 03/17/2024 03/17/2019, 11/22/2014, 06/17/2000 Abdominal Aortic Aneurysm (AAA) Screen 04/14/2024 Colorectal Cancer Screening: Colonoscopy 04/14/2024 Falls Risk Assessment 04/14/2024 Medicare Annual Wellness Visit 04/14/2024 Social Influencers of Health Screening 04/14/2024 Depression Screening 09/29/2024 09/30/2023 Influenza Vaccine (Season Ended) 2024 01/06/2022, 12/11/2020, 03/17/2019, Additional history exists Cholesterol Screening (Lipid Panel) 05/06/2028 05/06/2023 DTaP,Tdap,and [...] Signed Date: 06/13/2024 09:29 ET Workstation ID: [id number] Transcribed By: Self Edit Transcribed Date: 06/13/2024 [...] Signed Date: 06/13/2024 09:29 ET Workstation ID: [id number] Transcribed By: Self Edit Transcribed Date: 06/13/2024 08:22 ET Lenny Irving MD [facility] PROCED[facility] Final Result from Last 3 Months Insurance MEDICARE MEDICAID - [place] Care Teams Stump Shooter Relationship Specialty Start Date End Date Bc Hunter [address] [place] [phone] PCP - General Internal Medicine 04/13/24
--- OUTSIDE RECORDS SUMMARY | 2024-06-28 11:36 | XMS_ITS | Encounter Summary ---
Author Organization [employer] Address [address] [facility] 7 [place] [address] Care Team Providers Care Social Work Coordinator Name Role Phone Bc Hunter MD Primary Care Prov ider Encounter Details Date Type Department Care Team (Late st Contact Info) Description 05/18/2022 Orders Only [facility] CHC MED & PEDS [address] [place], [place] [phone] Bc Hunter MD 505 [place], [place] [phone] S/P aortic valve replacement Social History Tobacco [...] means documented in this encounter Care Teams Social Work Coordinator Relationship Specialty Start Date End Date Bc Hunter MD [address] [place], [place] [phone] PCP - General Internal Medicine 01/03/19 documented as of this encounter
--- OUTSIDE RECORDS SUMMARY | 2024-06-28 11:36 | XMS_ITS | Encounter Summary ---
Author Organization [employer] Address [address] [facility] [address] 7t [place] [address] Care Team Providers Care Director Of Professional Services Name Role Phone Bc Hunter MD Primary Care Prov ider Reason for Visit * Reason Comments Med Change Request Encounter Details Date Type Department Care Team ([facility] Contact Info) Description 07/19/2023 Refill [facility] CHC MED & PEDS 505 [place] [address] Oralia Mazariegos FNP 505 [place] [address] Social History Tobacco Use Types Packs/Day Years [...] of this encounter Care Teams Director Of Professional Services Relationship Specialty Start Date End Date Bc Hunter MD [address] [place] [address] PCP - General Internal Medicine 01/03/19 documented as of this encounter
--- OUTSIDE RECORDS SUMMARY | 2024-06-28 11:37 | XMS_ITS | Encounter Summary ---
Author Organization [employer] Address [address] [place] [address] [address] [place] [address] Care Team Providers Care Brass And Wind Instrument Repairer Name Role Phone Bc Hunter MD Primary Care Prov ider Reason for Visit * Reason Comments Med Refill Encounter Details Date Type Department Care Team ([facility] st Contact Info) Description 10/25/2022 Refill [facility] CHC MED & PEDS 505 [place], [place] [phone] Bc Hunter MD 505 [place] [address] Social History Tobacco Use Types Packs/Day Years [...] as of this encounter Care Teams Brass And Wind Instrument Repairer Relationship Specialty Start Date End Date Bc Hunter MD 505 [place] [address] PCP - General Internal Medicine 01/03/19 documented as of this encounter
--- OUTSIDE RECORDS SUMMARY | 2024-06-28 11:37 | XMS_ITS | Encounter Summary ---
Author Organization [employer] Address [address] [facility] 7 [place] [address] Care Team Providers Care Print Shop Stenographer Name Role Phone Bc Hunter MD Primary Care Prov ider Reason for Visit * Reason Onset Date Comments Nurse Triage 2024 Encounter Details Date Type Department Care Team ([facility] st Contact Info) Description 2024 Telephone [facility] MEDICINE [address] [place] [address] Bc Hunter MD 505 [place], [place] [phone] Nurse Triage Social History Tobacco Use Types [...] EDT called pt to triage, spoke to group therapist, ANTONIO. pt was seen on 06/14 by [facility] pulmonology on 06/14 and due to some distress was sent to the ER for evaluation. pt diagnosed with Pneumonia and put onantibiotics x5 days. worker states pt eating and drinking, not having any fevers or severe/sustained sob, or other associated symptoms. given appt Wednesday with [facility] at 1:00 for exam and follow [...] 2024 3:49 PM EDT Tc from Patient LENS COATING TECHNICIAN to report ED visit on : Date: 06/14 Hospital: [facility] Seen for: pneumonia Symptomatic Yes *if yes message should go to Triage Patient advised will forward to team nurse for follow up [phone] pt documented in this encounter Plan of Treatment Not on file documented as of this encounter Visit Diagnoses Not on filedocumented in this encounter Additional Health Concerns Assessment Noted Time PHQ-9 Depression Total Score: 0 09/30/19 24 11:02 AM EDT documented as of this encounter Care Teams Print Shop Stenographer Relationship Specialty Start Date End Date Bc Hunter MD [address] [place] [phone] PCP - General Internal Medicine 01/03/19 documented as of this encounter
--- OUTSIDE RECORDS SUMMARY | 2024-06-28 11:37 | XMS_ITS | Clinical Summary ---
Author Organization [employer] Address [address] [place] [address] 7t [place] [address] Care Team Providers Care Outside Installation Machinist Name Role Phone Bc Hunter MD Primary [...] Will order a follow up LDCT scan, billing rep was told to contact pulmonology office Seborrheic dermatitis of scalp 01/26/2023 Assessment & Plan (07/20/2023 8:52 PM EDT): Followed by [facility] Derm clinic Refill of [...] valve replacement 04/28/2022 Overview (07/20/2023): Followed by [facility] Coumadin Clinic Assessment & Plan (07/20/2023 8:46 PM EDT): Cardiology consult scheduled 07/20/23 No reported hx of bleeding, no reported chest pain/shortness of breath Discussed with PCP and [facility] Coumadin Clinic (Lori FLETCHER). Plan to bridge pt from Eliquis to Coumadin. May DC Eliquis once Coumadin therapeutic Coumadin dosinmg on Wednesday and Wednesday 4mg all other days of the week Plan: [facility] Coagulation clinic to reach out to shelter to schedule INR check and re-start on [...] Other schizophrenia 09/22/2011 Overview (07/20/2023): Living in [place] Assessment & Plan (07/30/2023 12:17 AM EDT): [...] Encounters Date Type Department Care Team Description 06/28/[address] [facility] MED & PEDS [address] [place] [address] Bc Hunter MD Nurse Triage 06/27/2024 Orders Only [facility] External Provider, [facility] 06/23/[address] [address] Bc Hunter MD Call Back Request 06/19/2024 1:00 PM EDT Office Visit [facility] MED & PEDS [address] [place] [address] Zafar Richard MD Mild chronic obstructive pulmonary disease (CMS/HCC) (Primary Dx); Solitary lung nodule; Dyspnea on exertion; Smoking 06/19/2024 Travel [address] [address] Bc Hunter MD Nurse Triage 06/13/2024 Orders Only GENERIC EXTERNAL DATA DEPARTMENT Provider, Generic External Data 06/04/[address] [address] Bc Hunter MD 06/01/2024 Orders Only GENERIC EXTERNAL DATA DEPARTMENT Provider, Generic External Data 05/21/[address] [facility] MED & PEDS [address] [place] [address] Bc Hunter MD Onychomycosis (Primary Dx) 05/21/2024 Refill [facility] MEDICINE [address] [place] [address] Bc Hunter MD 05/19/2024 Orders Only GENERIC EXTERNAL DATA DEPARTMENT Provider, Generic External Data 05/12/2024 Orders Only GENERIC EXTERNAL DATA DEPARTMENT Provider, Generic External Data 05/06/2024 Refill [facility] MEDICINE [address] [place] [address] Bc Hunter MD Mixed hyperlipidemia 05/01/2024 Orders Only GENERIC EXTERNAL DATA DEPARTMENT Provider, Generic External Data 04/27/[address] [facility] MED & PEDS [address] [place] [address] Bc Hunter MD Lung screening 04/26/2024 11:15 AM EST Office Visit [facility] MED & PEDS [address] [place] [address] Bc Hunter MD Acquired hypothyroidism (Primary Dx); Other iron deficiency anemia; Nodule of left lung 04/26/2024 Travel 04/24/2024 Orders Only GENERIC EXTERNAL DATA DEPARTMENT Provider, Generic External Data 04/19/2024 Travel 04/17/2024 Orders Only GENERIC EXTERNAL DATA DEPARTMENT Provider, Generic External Data 04/10/2024 Orders Only GENERIC EXTERNAL DATA DEPARTMENT Provider, Generic External Data 04/05/[address] [facility] MED & PEDS [address] [place] [address] Bc Hunter MD [facility] 04/05/2024 Orders Only GENERIC EXTERNAL DATA DEPARTMENT [...] 07/18/2024 07/19/2023 Depression Screening 09/29/2024 09/30/2023, 09/30/19 Alcohol/Substance Use Screening 04/26/2025 04/26/2024 Tobacco Screening [...] COAG CLINIC Routine 04/05/2024 10:56 AM EST LIPID PANEL, STANDARD Routine 05/06/2023 [...] EDT Narrative 06/27/2024 1:08 PM EDT ? [facility] [place] ?[address] ? [place] [address] ?XRay Report ? Signed ? Patient: Stella Zaragozan ?MR#: [id number] ? : 1950 ?Acct:[id number] ? Age/Sex: 74 / M ?ADM Date: 06/27/24 ? Loc: HO.HMGCX ? Attending Dr: Yasmeen Guerra PA-C ? Ordering Physician: Yasmeen Guerra PA-C ?? Date of Service: 06/27/24 ?? Procedure(s): XR chest 2V ?? Accession Number(s): [id number] ? cc: Bc Hunter MD; Yasmeen Guerra [...] DD/ 1223 ? TD/TT: 06/27/24 1223 ? Technical Documentation Specialist: ? Procedure Note Elkin, Jb - 06/27/2024 [facility] [place] [facility] [address] [place] [address] [place] [address] XRay Report Signed Patient: Amos Zaragoza#: [id number] : 3Acct:[id number] Age/Sex: 74 / MADM Date: 06/27/24 Loc: HO.HMGCX Attending Dr: Yasmeen Guerra PA-C Ordering Physician: Yasmeen Guerra PA-C Date of Service: 06/27/24 Procedure(s): XR chest 2V Accession Number(s): [id number] cc: Bc Hunter MD; Yasmeen Guerra PA-C [...] Stan Samayoa MD 06/27/2024 01:04 PM EDT Dictated By: Stan Samayoa MD Signed By: <Electronically signed by Stan Samayoa MD in OV> 06/27/24 1304 DD/ 1223 TD/TT: 06/27/24 1223 Technical Documentation Specialist: [facility] External Provider IMG XR PROCEDURES Final Result * (ABNORMAL) PROTHROMBIN TIME WHOLE BLD POC (06/13/2024 11:05 AM EDT) Only the most recent of9 resultswithin the time period is included. Protime 35.1(H) 11.1 - 13.5 sec [facility] 06/13/2024 11:0 5 AM EDT 06/13/2024 11:17 AM EDT Generic External Data Provider LAB BLOOD ORDERAB LES Final Result [facility] [address] [place] [phone] * (ABNORMAL) ~PT, ~INR - ANTI COAG CLINIC (06/13/2024 11:05 AM EDT) Only the most recent of9 resultswithin the time period is included. Prothrombin Time INR 2.9(H) 0.9 - 1.1 [facility] Comment:METER #: [id number] TERNATIONAL NORMALIZED RATIO (INR) REFERENCE RANGES Reference [...] Provider LAB BLOOD ORDERAB LES Final Result [facility] [address] [place] [phone] * PET/CT FDG Skull Base To Mid-Thigh (06/07/2024 3:59 PM EDT) Anatomical Region Laterality Modality Computed Tomogra phy Historical Provider IMRene CT PROCEDURES Final R esult * Lipid Panel, Standard (05/06/2023 11:48 AM EST) Triglycerides 61 <150 mg/dL [facility] Comment:Desirable Triglyceri de: less than 150 mg/dLBorderline High Triglyceride 150-199 mg/dLHigh Triglyceride: 200-499 mg/dLVery High Triglyceride: greater than or equal to 5OO mg/dL Cholesterol 166 <200 mg/dL [facility] Comment:Desirable Cholestero l: less than 200 mg/dLBorderline High Cholesterol: 200-239 mg/dLHigh Cholesterol: greater than 239 mg/dL LDL Cholesterol Calculated 94 <100 mg/dL [facility] Comment:Desirable LDL: less than 100 mg/dLNear Optimal/Above Optimal LDL: 110- 129 mg/dLBorderline High LDL: 130-159 mg/dLHigh LDL: 160-189 mg/dLVery High LDL: greater than or equal to 190 mg/dL HDL Cholesterol 60 >40 mg/dL [facility] Comment:Desirable HDL: great er than 40 mg/dL Note: This HDL assay may give artificially low results in patients with liver disease. Blood Venous blood specimen / Unknown 05/06/2023 11:48 AM EST 05/06/2023 2:09 PM EST Bc Rascon MD LAB BLOOD ORDERABL ES Final Result Performing Organization Address City/[facility]/ZIP Co de Phone Number [facility] [address] [place] [phone] * Hepatitis C Antibody with Reflex to HCV, RNA, Quantitative, Real-Time PCR (07/10/2022 11:31 AM EDT) Hepatitis C Antibody NON-REACT DEZ NON-REACT DEZ [facility] Diagnost Index 0.09 <1.00 [facility] [place] NAME'S Online Department [facility] Comment: HCV antibody was non-reactive. There is no laboratory evidence of HCV infection. In most cases, no further action is required. However, if recent HCV exposure is suspected, a test for HCV RNA (test code 19658) is suggested. For additional information please refer to http://education.[employer]faq/WUL64k1 (This link is being provided for informational/ educational purposes only.) Blood Venous blood specimen / Unknown 07/10/2022 11:31 AM EDT 07/10/2022 11:32 AM EDT Narrative [facility] - 07/11/2022 5:06 AM EDT FASTING:NO FASTING: NO us Bc Rascon MD LAB BLOOD ORDERABL ES Final Result Performing Organization Address City/[facility] de Phone Number [facility] [address], [place] [address] [facility] [place] NAME'S Online Department [facility] [address] [place] [phone] from Last 3 Months or Most Recently Relevant to Health Maintenance Insurance MEDICARE [facility] STANDARD Care Teams Outside Installation Machinist Relationship Specialty Start Date End Date Bc Hunter MD [address] [place] [phone] PCP - General Internal Medicine 01/03/19
--- OUTSIDE RECORDS SUMMARY | 2024-06-28 11:37 | XMS_ITS | Encounter Summary ---
Author Organization [employer] Address [address] [facility] 7 [place] [address] Care Team Providers Care Learning And Development Assistant Name Role Phone Bc Hunter MD Primary Care Prov ider Reason for Visit * Reason Onset Date Comments Referral 12/06/2023 Encounter Details Date Type Department Care Team ([facility] st Contact Info) Description 12/06/2023 Telephone [facility] MEDICINE [address] [place] [address] Bc Hunter MD [address] [place], [place] [phone] Referral Social History Tobacco Use Types Packs/Day [...] 12/06/2023 9:45 AM EDT Tc from [place] [facility] calling to report the provider for podiatry has and would need to be referred to another location would like to be seen by S[place]is [place] location if[place] documented in this encounter Plan of Treatment Not on file documented as of this encounter Visit Diagnoses Not on filedocumented in this encounter Additional Health Concerns Assessment Noted Time PHQ-9 Depression Total Score: 0 09/30/19 24 11:02 AM EDT documented as of this encounter Care Teams Learning And Development Assistant Relationship Specialty Start Date End Date Bc Hunter MD 505 [place] [address] PCP - General Internal Medicine 01/03/19 documented as of this encounter
--- OUTSIDE RECORDS SUMMARY | 2024-06-28 11:37 | XMS_ITS | Encounter Summary ---
Author Organization [employer] Address [address] [facility] [address] 7t [place] [address] Care Team Providers Care Security Systems Technician Name Role Phone Bc Hunter MD Primary Care Prov ider Encounter Details Date Type Department Care Team (Late st Contact Info) Description 06/27/2024 Orders Only [facility] External Provider, [facility] Social History Tobacco Use Types Packs/Day [...] EDT ? [facility] Adult Primary Care ?[address] ? [place] [address] ?XRay Report ? Signed ? Patient: Bailly,Chris ?MR#: [id number] ? : 1950 ?Acct:[id number] ? Age/Sex: 74 / M ?ADM Date: 06/27/24 ? Loc: HO.HMGCX ? Attending Dr: Yasmeen Guerra PA-C ? Ordering Physician: Yasmeen Guerra PA-C ?? Date of Service: 06/27/24 ?? Procedure(s): XR chest 2V ?? Accession Number(s): [id number] ? cc: Bc Hunter MD; Yasmeen Guerra [...] DD/ 1223 ? TD/TT: 06/27/24 1223 ? Wind Technician: ? Procedure Note Elkin, Image - 06/27/2024 [facility] [place] [address] [place] [address] [place] [address] XRay Report Signed Patient: Amos Zaragoza#: [id number] : 3Acct:[id number] Age/Sex: 74 / MADM Date: 06/27/24 Loc: HO.HMGCX Attending Dr: Yasmeen Guerra PA-C Ordering Physician: Yasmeen Guerra PA-C Date of Service: 06/27/24 Procedure(s): XR chest 2V Accession Number(s): [id number] cc: Bc Hunter MD; Yasmeen Guerra PA-C [...] 06/27/24 1304 DD/ 1223 TD/TT: 06/27/24 1223 Wind Technician: [facility] External Provider IMG XR PROCEDURES Final Result documented in this encounter Visit Diagnoses Not on filedocumented in this encounter Additional Health Concerns Assessment Noted Time PHQ-9 Depression Total Score: 0 09/30/19 24 11:02 AM EDT documented as of this encounter Care Teams Security Systems Technician Relationship Specialty Start Date End Date Bc Hunter MD [address] [place] [address] PCP - General Internal Medicine 01/03/19 documented as of this encounter
--- OUTSIDE RECORDS SUMMARY | 2024-06-28 11:37 | XMS_ITS | Encounter Summary ---
Author Organization [employer] Address [address] [facility] 7 [place] [address] Care Team Providers Care Fleet Sales Associate Name Role Phone Bc Hunter MD Primary Care Prov ider Reason for Visit * Reason Onset Date Comments Nurse Triage 06/28/2024 Encounter Details Date Type Department Care Team ([facility] st Contact Info) Description 06/28/2024 Telephone [facility] CHC MED & PEDS [address] [place] [address] Bc Hunter MD 505 [place] [address] Nurse Triage Social History Tobacco Use Types [...] encounter Miscellaneous Notes * Telephone Encounter - Juanis De Souza - 06/28/2024 10:17 AM EDT Patient calling to report ED visit on : Date: 06/14/24 Hospital: [facility] Seen for: pneumonia Symptomatic Yes *if yes message should go to Triage Pt was discharged with antibiotics. Pt was seen at [facility] walk in/urgent care on [address] due toshortness of breath. Krystin reported pt is tired and 'looks pale Contact pt at [phone] documented in this encounter Plan of Treatment Not on file documented as of this encounter Visit Diagnoses Not on filedocumented in this encounter Additional Health Concerns Assessment Noted Time PHQ-9 Depression Total Score: 0 09/30/19 24 11:02 AM EDT documented as of this encounter Care Teams Fleet Sales Associate Relationship Specialty Start Date End Date Bc Hunter MD [address] [place] [address] PCP - General Internal Medicine 01/03/19 documented as of this encounter
--- OUTSIDE RECORDS SUMMARY | 2024-06-28 11:37 | XMS_ITS | Encounter Summary ---
Author Organization [employer] Address [address] [facility] 7 [place] [address] Care Team Providers Care Tongue Binder Name Role Phone Bc Hunter MD Primary Care Prov ider Reason for Visit * Reason Onset Date Comments Med Refill 05/15/2022 Encounter Details Date Type Department Care Team ([facility] st Contact Info) Description 05/15/2022 Telephone [facility] CHC MED & PEDS [address] [place] [address] Bc Hunter MD 505 [place] [address] Med Refill Social History Tobacco Use Types [...] a max daily dose. Call placed to [facility] [place] Coumad[place]. Per Della, pt is currently [...] AM EST Tc from Amy with [facility] requesting some kinds of specific directions for warfarin (Coumadin) 2 MG tablet If any question please contact amy at [phone] documented in this encounter Plan of Treatment Not on file documented as of this encounter Visit Diagnoses Not on filedocumented in this encounter Care Teams Tongue Binder Relationship Specialty Start Date End Date Bc Hunter MD [address] [place] [address] PCP - General Internal Medicine 01/03/19 documented as of this encounter
--- OUTSIDE RECORDS SUMMARY | 2024-06-28 11:37 | XMS_ITS | Encounter Summary ---
Author Organization [employer] Address [address] [facility] 7 [place] [address] Care Team Providers Care Manager Cost Name Role Phone Bc Hunter MD Primary Care Prov ider Reason for Visit * Reason Comments Med Refill Encounter Details Date Type Department Care Team ([facility] Contact Info) Description 05/18/2023 Refill [facility] CHC MED & PEDS [address] [place] [address] Bc Hunter MD 505 [place] [address] Social History Tobacco Use Types Packs/Day Years [...] as of this encounter Care Teams Manager Cost Relationship Specialty Start Date End Date Bc Hunter MD [address] [place] [address] PCP - General Internal Medicine 01/03/19 documented as of this encounter
--- OUTSIDE RECORDS SUMMARY | 2024-06-28 11:37 | XMS_ITS | Encounter Summary ---
Author Organization [employer] Address 75 [facility] 7 [place] [address] Care Team Providers Care Loan Inspector Name Role Phone Bc Hunter MD Primary Care Prov ider Reason for Visit * Reason Onset Date Comments Call Back Request 06/23/2024 Encounter Details Date Type Department Care Team ([facility] st Contact Info) Description 06/23/2024 Telephone [facility] MEDICINE [address] [place] [address] Bc Hunter MD 505 [place], [place] [phone] Call Back Request Social History Tobacco Use [...] 3:40 PM EDT TC to Aidee from [facility]. Pt having a lung bx July 13. Pt needs Lovenox bridge so he can be off Warfarin 5 days before the procedure. Note will be routed to provider for orders. * Telephone Encounter - Az Lawrence - 06/23/2024 3:10 PM EDT Tc from Aidee with the [facility] requesting a call back regarding a Lovenox Bridge. Contact Aidee at [phone] documented in this encounter Plan of Treatment Not on file documented as of this encounter Visit Diagnoses Not on filedocumented in this encounter Additional Health Concerns Assessment Noted Time PHQ-9 Depression Total Score: 0 09/30/19 24 11:02 AM EDT documented as of this encounter Care Teams Loan Inspector Relationship Specialty Start Date End Date Bc Hunter MD [address] [place] [address] PCP - General Internal Medicine 01/03/19 documented as of this encounter
--- OUTSIDE RECORDS SUMMARY | 2024-06-28 11:37 | XMS_ITS | Encounter Summary ---
Author Organization [employer] Address [address] [place] [address] 7 [place] [address] Care Team Providers Care Accounting File Clerk Name Role Phone Bc Hunter MD Primary Care Prov ider Reason for Visit * Reason Onset Date Comments Med Refill 09/21/2022 Encounter Details Date Type Department Care Team ([facility] st Contact Info) Description 09/21/2022 Telephone [facility] CHC MED & PEDS [address] [place] [address] Bc Hunter MD [address] [place] [address] Med Refill Social History Tobacco Use Types [...] 09/23/2022 8:28 AM EDT Pt managed by [facility] coumadin clinic. Last INR of 3.1 noted 09/17/22. Will forward request for Rx to covering provider to review. * Telephone Encounter - Ping Nettles - 09/21/2022 10:39 AM EDT Tc from pt requesting med refill on Warfarin 1 mg tablet [id number] - [place], [place] - [address] [place] [address] Please sent to documented in this encounter Plan of Treatment Not on file documented as of this encounter Visit Diagnoses Diagnosis History of Coumadin therapy- Primary S/P aortic valve replacement Heart valve replaced by other means documented in this encounter Additional Health Concerns Assessment Noted Time PHQ-9 Depression Total Score: 0 07/11/19 23 11:26 AM EDT documented as of this encounter Care Teams Accounting File Clerk Relationship Specialty Start Date End Date Bc Hunter MD [address] [place] [address] PCP - General Internal Medicine 01/03/19 documented as of this encounter
--- OUTSIDE RECORDS SUMMARY | 2024-06-28 11:37 | XMS_ITS | Encounter Summary ---
Author Organization [employer] Address [address] [facility] 7 [place] [address] Care Team Providers Care Exceptional Needs Teacher Name Role Phone Bc Hunter MD Primary Care Prov ider Encounter Details Date Type Department Care Team (Late st Contact Info) Description 02/24/2022 Telephone [facility] MEDICINE [address] [place], [place] [phone] Bc Hunter MD [address] [place], [place] [phone] Social History Tobacco Use Types Packs/Day Years [...] on filedocumented in this encounter Care Teams Exceptional Needs Teacher Relationship Specialty Start Date End Date Bc Hunter MD [address] [place] [address] PCP - General Internal Medicine 01/03/19 documented as of this encounter
== END 2024-06-28 10:51 | disposition home or self-care (01) ==
LOC: HO.ACS 10:17
PROVIDERS: PCP Internal Medicine; Visit Provider Internal Medicine Medical Oncology
DX: Z79.01 Long term (current) use of anticoagulants (principal)

== ENCOUNTER → 2024-06-28 10:17 | Outpatient (BNVA) | payer MEDICARE, MEDICAID, SELFPAY | PROVIDERS: PCP Internal Medicine; Visit Provider Internal Medicine Medical Oncology | DX: Z51.81 Encounter for therapeutic drug level monitoring (principal) | CPT/HCPCS: 99211 ==

== ENCOUNTER 2024-06-29 10:41 | Outpatient (AMB) | payer MEDICARE, MEDICAID, SELFPAY ==
[2024-06-29 11:00] LABS: Prothrombin Time Whole Bld POC 34.9 sec (11.1-13.5); ~PT, ~INR - Anti Coag Clinic 2.9 (0.9-1.1)
--- NOTE | 2024-06-29 11:30 | MHC.OFFVISCO ---
Intake Intake Visit Reasons: Anticoagulation Allergies No Known Allergies Allergy (Mild, Verified 06/28/24 10:25) NOT APPLICABLE Nursing Note Pt to [facility] accompanied by manufacturing group leader Joann. Pt scheduled for lung biopsy on 07/13/24 with a 5 day hold of warfarin. INR: 2.9 in therapeutic range of 2-3 Medications and supplements reviewed No changes in health, diet, medications, or supplements, Denies any signs and symptoms of bleeding or bruising or clotting. Bleeding, bruising, clotting discussed Nutritional guidance given Dose: 4mg X 4 days and 2mg X 3 days (//) F/U INR: 07/06/24 prior to lung biopsy to review instructions with pt and case management specialist from long-term. T/C to Dr Trudy Rascon' office to question lovenox bridging. Spoke to Carey and message given to her pt may be difficult and may refuse the lovenox injections. Might be easier for long-term to give 1.5mg/kg once daily as opposed to 1mg/kg bid. Pt states he doesn't need the injection because he takes pills . Explained to pt he may need lovenox injection because he has to stop the pills , warfarin, for 5 days and he has a mechanical heart valve and prone to clotting. Patient and manufacturing group leader verbalizes understanding of instructions given particleboard factory worker aware pt needs to be accompanied to next appointment. Anti-Coag Initial Assessment Social Hx Patient Tobacco Use Status: Refuse Tobacco use screen alcohol intake: never Coding Level of Care Code Est Patient Level 2 Diagnoses Current use of anticoagulant therapy Z79.01 Comment discussion regarding lovenox bridging per procedure for lung bx Assessment & Plan Assessment & Plan (1) Current use of anticoagulant therapy: Code(s): Z79.01 - intermediate accountant (current) use of anticoagulants Category: Medical
--- OUTSIDE RECORDS SUMMARY | 2024-06-29 12:39 | XMS_ITS | Clinical Summary ---
Author Organization [address] [facility] Address [address] [place] [address] Phone Care Team Providers Care Color Laboratory Technician Name Role Phone Bc Hunter Primary Care Provide r Encounters Date Type Department Care Team Description 06/07/2024 10:39 AM EDT - 06/07/2024 11:59 PM EDT Hospital Encounter [facility] PET Scan [address] [place] [address] Discharge Disposition: Home or Self Care from Last 3 Months Medical History Medical History Date Comments Heart valve replaced by other means 06/29/2011 DX:Heart valve replaced by other means Asthma 06/29/2011 DX:Asthma Tobacco abuse 06/29/2011 DX:Tobacco abuse Schizophrenia ([facility] V24, [facility] V28) 06/29/2011 DX:Schizophrenia ([facility]) Unspecified hypothyroidism 06/29/2011 DX:Un specified hypothyroidism Chronic [...] Signed Date: 06/13/2024 09:29 ET Workstation ID: [id number] Transcribed By: Self Edit Transcribed Date: 06/13/2024 [...] Signed Date: 06/13/2024 09:29 ET Workstation ID: [id number] Transcribed By: Self Edit Transcribed Date: 06/13/2024 08:22 ET Lenny Irving MD IM NM PROCEDURES Final Result from Last 3 Months Insurance MEDICARE MEDICAID - [place] Care Teams Color Laboratory Technician Relationship Specialty Start Date End Date Bc Hunter [address] [place] [address] PCP - General Internal Medicine 04/13/24
--- OUTSIDE RECORDS SUMMARY | 2024-06-29 12:39 | XMS_ITS | Clinical Summary ---
Author Organization [facility], Address [address] [place] [address] [place] [address] Phone Care Team Providers Care Assembler Billiard Table Name Role Phone YatesBc Primary Care Provider [phone] Allergies No known active allergies Medications D3-50 1.25 MG (08920 UT) capsule TAKE 1 CAPSULE BY MOUTH [...] Telephone [facility], [address] [place] [address] Sasha Bhatt from Last 3 [...] Visit [facility], [address] [place] [phone] Trever Lopez MD [address] [place] [phone] Health Maintenance Due Date Last Done Comments Colorectal Cancer Screening: Annual FOBT 2001 Colorectal Cancer Screening: Colonoscopy 2001 Colorectal Cancer Screening: Sigmoidoscopy 2001 Pneumococcal Vaccine: 50+ Ye ars (2 of 2 - PCV) 11/23/2015 11/22/2014 Influenza Vaccine (Season Ended) 2024 Hepatitis B Vaccine Aged Out No longe r eligible based on patient's age to complete this topic Insurance Medicare Medicaid [place] Care Teams Assembler Billiard Table Relationship Specialty Start Date End Date Bc Yates PCP - General Internal Medicine 10/05/22
--- OUTSIDE RECORDS SUMMARY | 2024-06-29 12:39 | XMS_ITS | Encounter Summary ---
Author Organization [employer] Address [address] [facility] 7 [place] [address] Care Team Providers Care Stock Preparer Name Role Phone Bc Hunter MD Primary Care Prov ider Encounter Details Date Type Department Care Team (Late st Contact Info) Description 07/16/2022 Telephone [facility] CHC MED & PEDS [address] [place], [place] [phone] Bc Hunter MD [address] [place] [address] Social History Tobacco Use Types Packs/Day Years [...] swelling. Right side. Please contact Lori @ [phone] if additional labs are requested by PCP [...] swelling. Right side. Please contact Lori @ [phone] if additional labs are requested by PCP and will have them done attime of visit tomorrow. Please update PCP with above and follow with Lori as indicated. Triage Nurse will call patient at this time in regards to scrotal swelling. documented in this encounter Plan of Treatment Upcoming Encounters Date Type Department Care Team (Late st Contact Info) Description 07/03/2024 11:15 AM EDT Office Visit [facility] [address] [place] [address] Zafar Richard MD [address] [place] [address] documented as of this encounter Visit Diagnoses Not on filedocumented in this encounter Additional Health Concerns Assessment Noted Time PHQ-9 Depression Total Score: 0 07/11/19 23 11:26 AM EDT documented as of this encounter Care Teams Stock Preparer Relationship Specialty Start Date End Date Bc Hunter MD [address] [place] [address] PCP - General Internal Medicine 01/03/19 documented as of this encounter
--- OUTSIDE RECORDS SUMMARY | 2024-06-29 12:39 | XMS_ITS | Encounter Summary ---
Author Organization [employer] Address [address] [facility] 7 [place] [address] Care Team Providers Care Assembly Inspector Name Role Phone Bc Hunter MD Primary Care Prov ider Reason for Visit * Reason Comments Med Refill Encounter Details Date Type Department Care Team ([facility] Contact Info) Description 05/18/2023 Refill [facility] CHC MED & PEDS [address] [place] [address] Bc Hunter MD [address] [place] [address] Social History Tobacco Use Types Packs/Day Years [...] Description 07/03/2024 11:15 AM EDT Office Visit [facility] MED & PEDS [address] [place] [address] Zafar Richard MD [address] [place] [address] documented as of this encounter Visit Diagnoses Not on filedocumented in this encounter Additional Health Concerns Assessment Noted Time PHQ-9 Depression Total Score: 0 07/11/19 23 11:26 AM EDT documented as of this encounter Care Teams Assembly Inspector Relationship Specialty Start Date End Date Bc Hunter MD [address] [place] [address] PCP - General Internal Medicine 01/03/19 documented as of this encounter
--- OUTSIDE RECORDS SUMMARY | 2024-06-29 12:39 | XMS_ITS | Encounter Summary ---
Author Organization [facility] Address [address] [place] [address] Phone Care Team Providers Care Senior Engineering Associate Name Role Phone Bc Yates Primary Care Provider [phone] Encounter Details Date Type Department Care Team (Late st Contact Info) Description 05/26/2021 Documentation Only [facility] [address] [place] [address] Trever Lopez MD [address] [place] [address] [place] [address] Social History Tobacco Use Types [...] Visit [facility] [address] [place] [address] Trever Lopez MD [address] [place] [address] [place] [address] documented as of this encounter Visit Diagnoses Not on filedocumented in this encounter Care Teams Senior Engineering Associate Relationship Specialty Start Date End Date Bc Yates PCP - General Internal Medicine 10/05/22 documented as of this encounter
--- OUTSIDE RECORDS SUMMARY | 2024-06-29 12:39 | XMS_ITS | Encounter Summary ---
Author Organization [employer] Address [address] [facility] 7 [place] [address] Care Team Providers Care Groundman Name Role Phone Bc Hunter MD Primary Care Prov ider Reason for Visit * Reason Onset Date Comments Nurse Triage 05/26/2023 Encounter Details Date Type Department Care Team (Late st Contact Info) Description 05/26/2023 Telephone [facility] [address] [place] [address] Bc Hunter MD [address] [place], [place] [phone] Nurse Triage Social History Tobacco Use Types [...] AM EST Triage call Pt is in residential, Krystin Sepulveda taking call and consent is signed by Pt for staff to speak . Pt has had some changes. Pt decided to stop all psyche medications and MD Ward Myers,discontinued them. (Stop date unknown) Pt has since that time decreased eating, appetite is poor. Pt weight yesterday at professional bondsman apt is 173lbs. Pt was said to be around 202lbs regularly. Pt clothes are fitting very loosely now. Pt also wanted to stop coumadin but, professional bondsman instructed that wouldn't be good to do [...] acuity questions The caller accepted this outcome [phone] documented in this encounter Plan of Treatment Upcoming Encounters Date Type Department Care Team (Late st Contact Info) Description 07/03/2024 11:15 AM EDT Office Visit [facility] MED & PEDS [address] [place] [address] Zafar Richard MD [address] [place] [address] documented as of this encounter Visit Diagnoses Not on filedocumented in this encounter Additional Health Concerns Assessment Noted Time PHQ-9 Depression Total Score: 0 07/11/19 23 11:26 AM EDT documented as of this encounter Care Teams Groundman Relationship Specialty Start Date End Date YatesBc Ledezma MD [address] [place] [address] PCP - General Internal Medicine 01/03/19 documented as of this encounter
--- OUTSIDE RECORDS SUMMARY | 2024-06-29 12:39 | XMS_ITS | Encounter Summary ---
Author Organization [employer] Address [address] [place] [address] Care Team Providers Care Compressor Technician Name Role Phone Bc Hunter MD Primary Care Prov ider Encounter Details Date Type Department Care Team (Late st Contact Info) Description 06/29/2024 Telephone [facility] MEDICINE [address] [place] [address] 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, RN Social History Tobacco Use Types Packs/Day Years [...] 10:15 AM EDT Sexual Orientation Straight 06/21/2024 9 :38 AM EDT documented as of this encounter Miscellaneous Notes * Telephone Encounter - 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 RN - 06/29/2024 11:35 AM EDT Incoming call to pediatrics critical line from Arianna @ [facility] Coumadin clinic. Arianna reports pt has a lung biopsy scheduled on 07/13/24 and coumadin will have to be held for five days. The last warfarin dose will be given on 07/07/24 and next INR will be on 07/06/24. The coumadin clinic is questioning Lovenox and renal dose 1.5 mg per kg due to pt having an mechanical heart valve. Arianna states if necessary that it would be easier for the staff at the custodial to be able to give one dose a day due to pt may refuse the Lovenox due to their mental health. Message forwarded to [facility] nurses for follow up. documented in this encounter Plan of Treatment Upcoming Encounters Date Type Department Care Team (Late st Contact Info) Description 07/03/2024 11:15 AM EDT Office Visit [facility] MED & PEDS [address] [place] [address] Zafar Richard MD [address] [place] [address] documented as of this encounter Visit Diagnoses Not on filedocumented in this encounter Additional Health Concerns Assessment Noted Time PHQ-9 Depression Total Score: 0 09/30/19 24 11:02 AM EDT documented as of this encounter Care Teams Compressor Technician Relationship Specialty Start Date End Date Bc Hunter MD [address] [place] [address] PCP - General Internal Medicine 01/03/19 documented as of this encounter
--- OUTSIDE RECORDS SUMMARY | 2024-06-29 12:39 | XMS_ITS | Clinical Summary ---
Author Organization [employer] Address [address] [place] [address] 7t [place] [address] Care Team Providers Care Professional Shopper Name Role Phone Bc Hunter MD Primary [...] Will order a follow up LDCT scan, material damage appraiser was told to contact pulmonology office Seborrheic dermatitis of scalp 01/26/2023 Assessment & Plan (07/20/2023 8:52 PM EDT): Followed by [facility] Derm clinic Refill of topical [...] valve replacement 04/28/2022 Overview (07/20/2023): Followed by [facility] Coumadin Clinic Assessment & Plan (07/20/2023 8:46 PM EDT): Cardiology consult scheduled 07/20/23 No reported hx of bleeding, no reported chest pain/shortness of breath Discussed with PCP and [facility] Coumadin Clinic (Lori FLETCHER). Plan to bridge pt from Eliquis to Coumadin. May DC Eliquis once Coumadin therapeutic Coumadin dosinmg on Wednesday and Wednesday 4mg all other days of the week Plan: [facility] Coagulation clinic to reach out to usp to schedule INR check and re-start on [...] Other schizophrenia 09/22/2011 Overview (07/20/2023): Living [facility] Assessment & Plan (07/30/2023 12:17 AM EDT): [...] Encounters Date Type Department Care Team Description 06/29/[address] [address] 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 RN 06/29/2024 Orders Only GENERIC EXTERNAL DATA DEPARTMENT Provider, Generic External Data 06/28/2024 Telephone [facility] PEDS [address] [place] [address] Bc Hunter MD Nurse Triage 06/27/2024 Orders Only [facility] External Provider, [facility] 06/23/[address] [address] Bc Hunter MD Call Back Request 06/19/2024 1:00 PM EDT Office Visit [facility] [address] [place] [address] Zafar Richard MD Mild chronic obstructive pulmonary disease (CMS/HCC) (Primary Dx); Solitary lung nodule; Dyspnea on exertion; Smoking 06/19/2024 Travel [address] [address] Bc Hunter MD Nurse Triage 06/13/2024 Orders Only GENERIC EXTERNAL DATA DEPARTMENT Provider, Generic External Data 06/04/[address] [address] Bc Hunter MD 06/01/2024 Orders Only GENERIC EXTERNAL DATA DEPARTMENT Provider, Generic External Data 05/21/2024 Orders Only [facility] [address] [place] [address] Bc Hunter MD Onychomycosis (Primary Dx) 05/21/[address] [facility] MEDICINE [address] [place] [address] Bc Hunter MD 05/19/2024 Orders Only GENERIC EXTERNAL DATA DEPARTMENT Provider, Generic External Data 05/12/2024 Orders Only GENERIC EXTERNAL DATA DEPARTMENT Provider, Generic External Data 05/06/[address] [facility] MEDICINE [address] [place] [address] Bc Hunter MD Mixed hyperlipidemia 05/01/2024 Orders Only GENERIC EXTERNAL DATA DEPARTMENT Provider, Generic External Data 04/27/2024 Telephone [facility] [address] [place] [address] Bc Hunter MD Lung screening 04/26/2024 11:15 AM EST Office Visit [facility]ED[facility] [address] [place] [address] Bc Hunter MD Acquired hypothyroidism (Primary Dx); Other iron deficiency anemia; Nodule of left lung 04/26/2024 Travel 04/24/2024 Orders Only GENERIC EXTERNAL DATA DEPARTMENT Provider, Generic External Data 04/19/2024 Travel 04/17/2024 Orders Only GENERIC EXTERNAL DATA DEPARTMENT Provider, Generic External Data 04/10/2024 Orders Only GENERIC EXTERNAL DATA DEPARTMENT Provider, Generic External Data 04/05/2024 Telephone [facility]ED[facility] [address] [place] [address] Bc Hunter MD [facility] 04/05/2024 [...] 06/19/2024 1:09 PM EDT Plan of Treatment Upcoming Encounters Date Type Department Care Team (Late st Contact Info) Description 07/03/2024 11:15 AM EDT Office Visit [facility] MED & PEDS [address] [place] [address] Zafar Richard MD [address] [place] [address] Health Maintenance Due Date Last Done Comments [...] Comments PROTHROMBIN TIME WHOLE BLD POC Routine 06/29/2024 10:48 AM EDT ~PT, ~INR - ANTI COAG CLINIC Routine 06/29/2024 10:48 AM EDT XR CHEST 2 VIEWS Routine 06/27/2024 12:2 [...] * (ABNORMAL) PROTHROMBIN TIME WHOLE BLD POC (06/29/2024 10:48 AM EDT) Only the most recent of10 resultswithin the time period is included. Protime 34.9(H) 11.1 - 13.5 sec [facility] 06/29/2024 10:4 8 AM EDT 06/29/2024 10:59 AM EDT us Generic External Data Provider LAB BLOOD ORDERAB LES Final Result Performing Organization Address [facility] Co de Phone Number [facility] [address] [place], [place] [phone] * (ABNORMAL) ~PT, ~INR - ANTI COAG CLINIC (06/29/2024 10:48 AM EDT) Only the most recent of10 resultswithin the time period is included. Prothrombin Time INR 2.9(H) 0.9 - 1.1 [facility] Comment:METER #: [id number] TERNATIONAL NORMALIZED RATIO (INR) REFERENCE RANGES Reference RangeFor patients not on anticoagulant therapy: 0.9 - 1.1INR ranges for oral anticoagulanttherapy:For prevention and treatment of venous thrombosis and pulmonary embolism: 2.0 - 3.0For acute myocardial infarction with aspirin therapy: 2.0 - 3.0For acute myocardial infarction without aspirin therapy: 3.0 - 4.0For patients with mechanical prosthetic heart valves: 2.5 - 3.5 06/29/2024 10:4 8 AM EDT 06/29/2024 10:59 AM EDT us Generic External Data Provider LAB BLOOD ORDERAB LES Final Result Performing Organization Address [facility] Co de Phone Number [facility] [address] [place] [address] [phone] * XR Chest 2 Views (06/27/2024 12:23 PM EDT) Anatomical Region Laterality Modality Chest Radiographic Kelly ging 06/27/2024 12:2 3 PM EDT Narrative 06/27/2024 1:08 PM EDT ? [facility] ?[address] ? [place] [address] ?XRay Report ? Signed ? Patient: Nik,Chris ?MR#: [id number] ? : 1950 ?Acct:[id number] ? Age/Sex: 74 / M ?ADM Date: 04/08/25 ? Loc: HO.[facility]GCX ? Attending Dr: Yasmeen Guerra PA-C ? Ordering Physician: Yasmeen Guerra PA-C ?? Date of Service: 06/27/24 ?? Procedure(s): XR chest 2V ?? Accession Number(s): [id number] ? cc: Bc Hunter MD; Yasmeen Guerra [...] DD/ 1223 ? TD/TT: 06/27/24 1223 ? Hardwood Floor Installer: ? Procedure Note Elkin, Image - 06/27/2024 [facility] [address] [place], [place] [address] XRay Report Signed Patient: Amos Zaragoza#: [id number] : 3Acct:[id number] Age/Sex: 74 / MADM Date: 06/27/24 [facility]: [facility] Attending Dr: Yasmeen Guerra PA-C Ordering Physician: Yasmeen Guerra PA-C Date of Service: 06/27/24 Procedure(s): XR chest 2V Accession Number(s): [id number] cc: Bc Hunter MD; Yasmeen Guerra PA-C [...] 06/27/24 1304 DD/ 1223 TD/TT: 06/27/24 1223 Hardwood Floor Installer: [facility] External Provider IMG XR PROCEDURES Final Result * PET/CT FDG Skull Base To Mid-Thigh (06/07/2024 3:59 PM EDT) Anatomical Region Laterality Modality Computed Tomogra phy Historical Provider IMG CT PROCEDURES Final R esult * Lipid Panel, Standard (05/06/2023 11:48 AM EST) Triglycerides 61 <150 mg/dL [facility] Comment:Desirable Triglyceri de: less than 150 mg/dLBorderline High Triglyceride 150-199 mg/dLHigh Triglyceride: 200-499 mg/dLVery High Triglyceride: greater than or equal to 5OO mg/dL Cholesterol 166 <200 mg/dL [facility] Comment:Desirable Cholestero l: less than 200 mg/dLBorderline High Cholesterol: 200-239 mg/dLHigh Cholesterol: greater than 239 mg/dL LDL Cholesterol Calculated 94 <100 mg/dL [facility] Comment:Desirable LDL: less than 100 mg/dLNear Optimal/Above Optimal LDL: 110- 129 mg/dLBorderline High LDL: 130-159 mg/dLHigh LDL: 160-189 mg/dLVery High LDL: greater than or equal to 190 mg/dL HDL Cholesterol 60 >40 mg/dL [facility] Comment:Desirable HDL: great er than 40 mg/dL Note: This HDL assay may give artificially low results in patients with liver disease. Blood Venous blood specimen / Unknown 05/06/2023 11:48 AM EST 05/06/2023 2:09 PM EST Bc Rascon MD LAB BLOOD ORDERABL ES Final Result [facility] [address] [place] [address] [phone] * Hepatitis C Antibody with Reflex to HCV, RNA, Quantitative, Real-Time PCR (07/10/2022 11:31 AM EDT) Hepatitis C Antibody NON-REACT DEZ NON-REACT DEZ [facility] Index 0.09 <1.00 [facility] Comment: HCV antibody was non-reactive. There is no laboratory evidence of HCV infection. In most cases, no further action is required. However, if recent HCV exposure is suspected, a test for HCV RNA (test code 79943) is suggested. For additional information please refer to http://education.Ripl/faq/GKH20i2 (This link is being provided for informational/ educational purposes only.) Blood Venous blood specimen / Unknown 07/10/2022 11:31 AM EDT 07/10/2022 11:32 AM EDT Narrative [facility] - 07/11/2022 5:06 AM EDT FASTING:NO FASTING: NO Bc Rascon MD LAB BLOOD ORDERABL ES Final Result [facility] [address] [facility], [place] [address] [facility] [address] [place] [phone] from Last 3 Months or Most Recently Relevant to Health Maintenance Insurance MEDICARE Member Subscriber Plan / Payer (Ef fective 2022-Present) Name:Chris Zaragoza Member ID:[id number] Relation to Subscriber:Self Name:Chris Zaragoza Subscriber ID:[id number] Payer ID:STATE Group ID:Not on file Type:Medicare Address: [facility] [address] [place] [address] [facility] Care Teams Professional Shopper Relationship Specialty Start Date End Date Bc Hunter MD [address] [place] [address] PCP - General Internal Medicine 01/03/19
--- OUTSIDE RECORDS SUMMARY | 2024-06-29 12:39 | XMS_ITS | Encounter Summary ---
Author Organization [employer] Address [address] 7t [place] [address] Care Team Providers Care Miner Operator Name Role Phone Bc Hunter MD Primary Care Prov ider Encounter Details Date Type Department Care Team (Late st Contact Info) Description 06/27/2024 Orders Only [facility] External Provider, [facility] Social History Tobacco Use Types Packs/Day [...] Upcoming Encounters Date Type Department Care Team ([facility] st Contact Info) Description 07/03/2024 11:15 AM EDT Office Visit [facility] MED & PEDS [address] [facility] [place] [address] Zafar Richard MD [address] [facility] [place] [address] documented as of this encounter Procedures Procedure Name Priority Date/Time Associated Diagnosis Comments XR CHEST 2 VIEWS Routine 06/27/2024 12:2 3 PM EDT documented in this encounter Results * XR Chest 2 Views (06/27/2024 12:23 PM EDT) Anatomical Region Laterality Modality Chest Radiographic Kelly ging 06/27/2024 12:2 3 PM EDT Narrative 06/27/2024 1:08 PM EDT ? [facility] ?[address] ? [place] [address] ?XRay Report ? Signed ? Patient: Chris Zaragoza ?MR#: [id number] ? : 1950 ?Acct:[id number] ? Age/Sex: 74 / M ?ADM Date: 06/27/24 ? Loc: HO.[facility]GCX ? Attending Dr: Yasmeen Guerra PA-C ? Ordering Physician: Yasmeen Guerra PA-C ?? Date of Service: 06/27/24 ?? Procedure(s): XR chest 2V ?? Accession Number(s): [id number] ? cc: Bc Hunter MD; Yasmeen Guerra [...] DD/ 1223 ? TD/TT: 06/27/24 1223 ? Skydiving Instructor: ? Procedure Note Dongriseldater, Image - 06/27/2024 [facility] [address] [place] [address] [place] [address] XRay Report Signed Patient: Amos Zaragoza#: [id number] : 3Acct:[id number] Age/Sex: 74 / MADM Date: 06/27/24 Loc: .[facility] Attending Dr: Yasmeen Guerra PA-C Ordering Physician: Yasmeen Guerra PA-C Date of Service: 06/27/24 Procedure(s): XR chest 2V Accession Number(s): [id number] cc: Bc Hunter MD; Yasmeen Guerra PA-C [...] 06/27/24 1304 DD/ 1223 TD/TT: 06/27/24 1223 Skydiving Instructor: [facility] External Provider IMG XR PROCEDURES Final Result documented in this encounter Visit Diagnoses Not on filedocumented in this encounter Additional Health Concerns Assessment Noted Time PHQ-9 Depression Total Score: 0 09/30/19 24 11:02 AM EDT documented as of this encounter Care Teams Miner Operator Relationship Specialty Start Date End Date Bc Hunter MD [address] [place] [address] PCP - General Internal Medicine 01/03/19 documented as of this encounter
--- OUTSIDE RECORDS SUMMARY | 2024-06-29 12:39 | XMS_ITS | Encounter Summary ---
Author Organization [employer] Address [address] [facility] 7 [place] [address] Care Team Providers Care Web Art Director Name Role Phone Bc Hunter MD Primary Care Prov ider Reason for Visit * Reason Onset Date Comments Referral 12/06/2023 Encounter Details Date Type Department Care Team ([facility] st Contact Info) Description 12/06/2023 Telephone [facility] MEDICINE [address] [place] [address] Bc Hunter MD [address] [place], [place] [phone] Referral Social History Tobacco Use Types Packs/Day [...] 12/06/2023 9:45 AM EDT Tc from patients [facility] calling to report the provider for podiatry has and would need to be referred to another location would like to be seen by Sarkis [place] if[place] documented in this encounter Plan of Treatment Upcoming Encounters Date Type Department Care Team (Late st Contact Info) Description 07/03/2024 11:15 AM EDT Office Visit [facility] MED & PEDS [address] [place] [address] Zafar Richard MD [address] [place] [address] documented as of this encounter Visit Diagnoses Not on filedocumented in this encounter Additional Health Concerns Assessment Noted Time PHQ-9 Depression Total Score: 0 09/30/19 24 11:02 AM EDT documented as of this encounter Care Teams Web Art Director Relationship Specialty Start Date End Date Bc Hunter MD [address] [place] [address] PCP - General Internal Medicine 01/03/19 documented as of this encounter
--- OUTSIDE RECORDS SUMMARY | 2024-06-29 12:39 | XMS_ITS | Encounter Summary ---
Author Organization [employer] [facility] Address [address] [place] [address] 7 [place] [address] Care Team Providers Care Lathe Setup Operator Name Role Phone Bc Hunter MD Primary Care Prov ider Encounter Details Date Type Department Care Team (Late Contact Info) Description 02/24/2022 Telephone [facility] MEDICINE [address] [place] [address] Bc Hunter MD [address] [place], [place] [phone] Social History Tobacco Use Types Packs/Day Years [...] Department Care Team (Late Contact Info) Description 07/03/2024 11:15 AM EDT Office Visit [facility] MED & PEDS [address] [place], [place] [phone] Zafar Richard MD [address] [place], [place] [phone] documented as of this encounter Visit Diagnoses Not on filedocumented in this encounter Care Teams Lathe Setup Operator Relationship Specialty Start Date End Date Bc Hunter MD [address] [place], [place] [phone] PCP - General Internal Medicine 01/03/19 documented as of this encounter
--- OUTSIDE RECORDS SUMMARY | 2024-06-29 12:39 | XMS_ITS | Encounter Summary ---
Author Organization [employer] [facility] Address [address] [place] [address] [place] [address] Care Team Providers Care Lab Rep Name Role Phone Bc Hunter MD Primary Care Prov ider Reason for Visit * Reason Comments Med Refill Encounter Details Date Type Department Care Team (Late Contact Info) Description 10/25/2022 Refill [facility] MED & PEDS [address] [place], [place] [phone] Bc Hunter MD [address] [place] [address] Social History Tobacco Use Types Packs/Day Years [...] Description 07/03/2024 11:15 AM EDT Office Visit [facility] MED & PEDS [address] [place] [address] Zafar Richard MD [address] [place] [address] documented as of this encounter Visit Diagnoses Not on filedocumented in this encounter Additional Health Concerns Assessment Noted Time PHQ-9 Depression Total Score: 0 07/11/19 23 11:26 AM EDT documented as of this encounter Care Teams Lab Rep Relationship Specialty Start Date End Date Bc Hunter MD [address] [place] [address] PCP - General Internal Medicine 01/03/19 documented as of this encounter
--- OUTSIDE RECORDS SUMMARY | 2024-06-29 12:39 | XMS_ITS | Encounter Summary ---
Author Organization [employer] Address [address] [facility] 7 [place] [address] Care Team Providers Care Outside Sales Account Manager Name Role Phone Bc Hunter MD Primary Care Prov ider Reason for Visit * Reason Onset Date Comments Med Refill 05/12/2022 Encounter Details Date Type Department Care Team (Late st Contact Info) Description 05/12/2022 Telephone [facility] MEDICINE [address] [place] [address] Bc Hunter MD [address] [place] [address] Med Refill Social History Tobacco Use Types [...] Description 07/03/2024 11:15 AM EDT Office Visit [facility] MED & PEDS [address] [place] [address] Zafar Richard MD [address] [place] [address] documented as of this encounter Visit Diagnoses Not on filedocumented in this encounter Care Teams Outside Sales Account Manager Relationship Specialty Start Date End Date Bc Hunter MD [address] [place] [address] PCP - General Internal Medicine 01/03/19 documented as of this encounter
--- OUTSIDE RECORDS SUMMARY | 2024-06-29 12:39 | XMS_ITS | Encounter Summary ---
Author Organization [employer] Address [address] [facility] 7 [place] [address] Care Team Providers Care Elect Equip Maint Eng Name Role Phone Bc Hunter MD Primary Care Prov ider Reason for Visit * Reason Onset Date Comments Nurse Triage 06/28/2024 Encounter Details Date Type Department Care Team ([facility] st Contact Info) Description 06/28/2024 Telephone [facility] MED & PEDS [address] [place] [address] Bc Hunter MD [address] [place] [address] Nurse Triage Social History Tobacco Use Types [...] Telephone Encounter - Clari Friend RN - 06/28/2024 11:49 AM EDT called pt to triage, [facility] follow up appt. pt seen in the ER back on 06/14 for Pneumonia and sob, refused admission. pt given antibiotics which he completed. pt again seen here on 06/19 for follow up. pt seen walk in at [facility] on 06/27, repeat CXR improved. had CT scan which showed some improvement in effusions and no PE. given appt Monday 07/03 at 11:15 for follow up. advised home care: rest, fluids, steam, humidifier, and report any worsening or new symptoms. advised also to return to the ER if any potentially severe symptoms. insurance verified, worker verified appt date and time. Notes of visit of at [facility] are already scanned into the chart for review. Protocol Used: Breathing Difficulty (Adult) Protocol-Based Disposition: See in Office or Video Visit within 2 Weeks Video visit offer not recorded Positive Triage Question: * Mild longstanding difficulty breathing (e.g., minimal/no SOB at rest, SOB with walking, pulse < 100) and same as normal * All higher-acuity triage questions were negative Care Advice Discussed: * General Care Advice for Breathing Difficulty * Fever Medicines * Fever Medicines - Extra Notes and Warnings * Reasons To Call Back - Severe difficulty breathing occurs - Fever more than 100.4 F (38.0 C) - You become worse * Telephone Encounter - Juanis De Souza - 06/28/2024 10:17 AM EDT Patient calling to report ED visit on : Date: 06/14/24 Hospital: [facility] Seen for: pneumonia Symptomatic Yes *if yes message should go to Triage Pt was discharged with antibiotics. Pt was seen at [facility] walk in/urgent care on [address] due toshortness of breath. Krystin reported pt is tired and 'looks pale Contact pt at [phone] documented in this encounter Plan of Treatment Upcoming Encounters Date Type Department Care Team (Late st Contact Info) Description 07/03/2024 11:15 AM EDT Office Visit [facility] MED & PEDS [address] [place] [address] Zafar Richard MD [address] [place] [address] documented as of this encounter Visit Diagnoses Not on filedocumented in this encounter Additional Health Concerns Assessment Noted Time PHQ-9 Depression Total Score: 0 09/30/19 24 11:02 AM EDT documented as of this encounter Care Teams Elect Equip Maint Eng Relationship Specialty Start Date End Date Bc Hunter MD [address] [place] [address] PCP - General Internal Medicine 01/03/19 documented as of this encounter
--- OUTSIDE RECORDS SUMMARY | 2024-06-29 12:39 | XMS_ITS | Encounter Summary ---
Author Organization [employer] Address [address] [place] [address] 7 [place] [address] Care Team Providers Care Supervisor Machine Setter Name Role Phone Bc Hunter MD Primary Care Prov ider Reason for Visit * Reason Onset Date Comments Med Refill 09/21/2022 Encounter Details Date Type Department Care Team ([facility] st Contact Info) Description 09/21/2022 Telephone [facility] MED & PEDS [address] [place] [address] Bc Hunter MD [address] [place] [address] Med Refill Social History Tobacco Use Types [...] 09/23/2022 8:28 AM EDT Pt managed by [facility] coumadin clinic. Last INR of 3.1 noted 09/17/22. Will forward request for Rx to covering provider to review. * Telephone Encounter - Ping eNttles - 09/21/2022 10:39 AM EDT Tc from pt requesting med refill on Warfarin 1 mg tablet [id number] [place], [place] - [address] Please sent to documented in this encounter Plan of Treatment Upcoming Encounters Date Type Department Care Team (Late st Contact Info) Description 07/03/2024 11:15 AM EDT Office Visit [facility] MED & PEDS [address] [place] [address] Zafar Richard MD [address] [place] [address] documented as of this encounter Visit Diagnoses Diagnosis History of Coumadin therapy- Primary S/P aortic valve replacement Heart valve replaced by other means documented in this encounter Additional Health Concerns Assessment Noted Time PHQ-9 Depression Total Score: 0 07/11/19 23 11:26 AM EDT documented as of this encounter Care Teams Supervisor Machine Setter Relationship Specialty Start Date End Date Bc Hunter MD [address] [place] [address] PCP - General Internal Medicine 01/03/19 documented as of this encounter
--- OUTSIDE RECORDS SUMMARY | 2024-06-29 12:39 | XMS_ITS | Encounter Summary ---
Author Organization [employer] Address [address] [facility] 7 [place] [address] Care Team Providers Care Boston Cutter Name Role Phone Bc Hunter MD Primary Care Prov ider Reason for Visit * Reason Onset Date Comments Med Refill 05/15/2022 Encounter Details Date Type Department Care Team ([facility] st Contact Info) Description 05/15/2022 Telephone [facility] MED & PEDS [address] [place] [address] Bc Hunter MD [address] [place] [address] Med Refill Social History Tobacco Use Types [...] max daily dose. Call placed to [facility] Coumadin clinic. Per Della, [...] If any question please contact amy at [phone] documented in this encounter Plan of Treatment Upcoming Encounters Date Type Department Care Team (Late st Contact Info) Description 07/03/2024 11:15 AM EDT Office Visit [facility] MED & PEDS [address] [place] [address] Zafar Richard MD [address] [place] [address] documented as of this encounter Visit Diagnoses Not on filedocumented in this encounter Care Teams Boston Cutter Relationship Specialty Start Date End Date Bc Hunter MD [address] [place] [address] PCP - General Internal Medicine 01/03/19 documented as of this encounter
--- OUTSIDE RECORDS SUMMARY | 2024-06-29 12:39 | XMS_ITS | Encounter Summary ---
Author Organization [facility] Address [address] [place] [address] Phone Care Team Providers Care Resolution Agent Name Role Phone Bc Yates Primary Care Provider [phone]- [phone] Reason for Visit * Reason Comments Med Refill Encounter Details Date Type Department Care Team (Late st Contact Info) Description 01/13/2022 Refill [facility] [address] [place] [address] Trever Lopez MD [address] [place] [address] Social History Tobacco Use Types [...] Visit [facility] [address] [place] [address] Trever Lopez MD [address] [place] [address] documented as of this encounter Visit Diagnoses Not on filedocumented in this encounter Care Teams Resolution Agent Relationship Specialty Start Date End Date Bc Yates PCP - General Internal Medicine 10/05/22 documented as of this encounter
--- OUTSIDE RECORDS SUMMARY | 2024-06-29 12:39 | XMS_ITS | Encounter Summary ---
Author Organization [employer] Address [address] [facility] 7 [place] [address] Care Team Providers Care Prototype Assembler Electronics Name Role Phone Bc Hunter MD Primary Care Prov ider Reason for Visit * Reason Onset Date Comments Nurse Triage 2024 Encounter Details Date Type Department Care Team ([facility] st Contact Info) Description 2024 Telephone [facility] [address] [place] [address] Bc Hunter MD [address] [place], [place] [phone] Nurse Triage Social History Tobacco Use Types [...] EDT called pt to triage, spoke to painting and coating worker, ANTONIO. pt was seen on 06/14 by [facility] on 06/14 and due to some distress was sent to the ER for evaluation. pt diagnosed with Pneumonia and put onantibiotics x5 days. worker states pt eating and drinking, not having any fevers or severe/sustained sob, or other associated symptoms. given appt Wednesday with [facility] at 1:00 for exam and follow [...] 2024 3:49 PM EDT Tc from Patient BIOINFORMATICS DEVELOPER to report ED visit on : Date: 06/14 Hospital: [facility] Seen for: pneumonia Symptomatic Yes *if yes message should go to Triage Patient advised will forward to team nurse for follow up [phone] pt documented in this encounter Plan of Treatment Upcoming Encounters Date Type Department Care Team (Late st Contact Info) Description 07/03/2024 11:15 AM EDT Office Visit [facility] MED & PEDS 505 [place] [address] Zafar Richard MD [address] [place] [address] documented as of this encounter Visit Diagnoses Not on filedocumented in this encounter Additional Health Concerns Assessment Noted Time PHQ-9 Depression Total Score: 0 09/30/19 24 11:02 AM EDT documented as of this encounter Care Teams Prototype Assembler Electronics Relationship Specialty Start Date End Date Bc Hunter MD [address] [place] [address] PCP - General Internal Medicine 01/03/19 documented as of this encounter
--- OUTSIDE RECORDS SUMMARY | 2024-06-29 12:39 | XMS_ITS | Encounter Summary ---
Author Organization [employer] Address [address] 7[address] [place] [address] Care Team Providers Care Diabetologist Name Role Phone Bc Hunter MD Primary Care Prov ider Encounter Details Date Type Department Care Team (Late st Contact Info) Description 09/20/2023 Orders Only [facility] MED & PEDS [address] [place], [place] [phone] Bc Hunter MD 505 [place] [address] Social History Tobacco Use Types Packs/Day Years [...] Description 07/03/2024 11:15 AM EDT Office Visit [facility] MED & PEDS 505 [place] [address] Zafar Richard MD [address] [place] [address] documented as of this encounter Visit Diagnoses Not on filedocumented in this encounter Additional Health Concerns Assessment Noted Time PHQ-9 Depression Total Score: 0 07/11/19 23 11:26 AM EDT documented as of this encounter Care Teams Diabetologist Relationship Specialty Start Date End Date Bc Hunter MD [address] [place] [address] PCP - General Internal Medicine 01/03/19 documented as of this encounter
--- OUTSIDE RECORDS SUMMARY | 2024-06-29 12:39 | XMS_ITS | Encounter Summary ---
Author Organization [facility] Address [address] [facility] [address] 7[address] [place] [address] Care Team Providers Care Cloth Cutter Name Role Phone Bc Hunter MD Primary Care Prov ider Encounter Details Date Type Department Care Team (Late st Contact Info) Description 06/29/2024 Orders Only GENERIC EXTERNAL DATA DEPARTMENT [...] AM EDT Office Visit [facility] MED & PEDS 505 [place] [address] Zafar Richard MD 505 [place] [address] documented as of this encounter Procedures Procedure Name Priority Date/Time Associated Diagnosis Comments PROTHROMBIN TIME WHOLE BLD POC Routine 06/29/2024 10:48 AM EDT ~PT, ~INR - ANTI COAG CLINIC Routine 06/29/2024 10:48 AM EDT documented in this encounter Results * (ABNORMAL) PROTHROMBIN TIME WHOLE BLD POC (06/29/2024 10:48 AM EDT) Protime 34.9(H) 11.1 - 13.5 sec [facility] 06/29/2024 10:4 8 AM EDT 06/29/2024 10:59 AM EDT us Generic External Data Provider LAB BLOOD ORDERAB LES Final Result [facility] [address] [place] [phone] [phone] * (ABNORMAL) ~PT, ~INR - ANTI COAG CLINIC (06/29/2024 10:48 AM EDT) Prothrombin Time INR 2.9(H) 0.9 - 1.1 [facility] Comment:METER #: [id number] TERNATIONAL NORMALIZED RATIO (INR) REFERENCE RANGES Reference [...] Final Result [facility] [address] [place] [phone] documented in this encounter Visit Diagnoses Not on filedocumented in this encounter Additional Health Concerns Assessment Noted Time PHQ-9 Depression Total Score: 0 09/30/19 24 11:02 AM EDT documented as of this encounter Care Teams Cloth Cutter Relationship Specialty Start Date End Date Bc Hunter MD [address] [place] [address] PCP - General Internal Medicine 01/03/19 documented as of this encounter
--- OUTSIDE RECORDS SUMMARY | 2024-06-29 12:39 | XMS_ITS | Encounter Summary ---
Author Organization [employer] [facility] Address [address] [place] [address] 7 [place] [address] Care Team Providers Care Data Center Engineer Name Role Phone Bc Hunter MD Primary Care Prov ider Encounter Details Date Type Department Care Team (Late Contact Info) Description 05/18/2022 Orders Only [facility] MED & PEDS [address] [place], [place] [phone] Bc Hunter MD 505 [place], [place] [phone] S/P aortic valve replacement Social History Tobacco [...] Description 07/03/2024 11:15 AM EDT Office Visit [facility] MED & PEDS [address] [place], [place] [phone] Zafar Richard MD [address] [place], [place] [phone] documented as of this encounter Visit Diagnoses Diagnosis S/P aortic valve replacement Heart valve replaced by other means documented in this encounter Care Teams Data Center Engineer Relationship Specialty Start Date End Date Bc Hunter MD [address] [place] [address] PCP - General Internal Medicine 01/03/19 documented as of this encounter
--- OUTSIDE RECORDS SUMMARY | 2024-06-29 12:39 | XMS_ITS | Encounter Summary ---
Author Organization [employer] Address [address] [facility] [address] 7t [place] [address] Care Team Providers Care Garment Folder Name Role Phone Bc Hunter MD Primary Care Prov ider Reason for Visit * Reason Comments Med Change Request Encounter Details Date Type Department Care Team ([facility] Contact Info) Description 07/19/[address] [facility] MED & PEDS 505 [place] [address] Oralia Mazariegos FNP 505 [place] [address] Social History Tobacco Use Types Packs/Day Years [...] Description 07/03/2024 11:15 AM EDT Office Visit [facility] MED & PEDS 505 [place] [address] Zafar Richard MD 505 [place] [address] documented as of this encounter Visit Diagnoses Not on filedocumented in this encounter Additional Health Concerns Assessment Noted Time PHQ-9 Depression Total Score: 0 07/11/19 23 11:26 AM EDT documented as of this encounter Care Teams Garment Folder Relationship Specialty Start Date End Date Bc Hunter MD 505 [place] [address] PCP - General Internal Medicine 01/03/19 documented as of this encounter
== END 2024-06-29 11:55 | disposition home or self-care (01) ==
LOC: HO.ACS 10:41
PROVIDERS: PCP Internal Medicine; Visit Provider Internal Medicine Medical Oncology
DX: Z79.01 Long term (current) use of anticoagulants (principal)

== ENCOUNTER → 2024-06-29 10:41 | Outpatient (BNVA) | payer MEDICARE, MEDICAID, SELFPAY | PROVIDERS: PCP Internal Medicine; Visit Provider Internal Medicine Medical Oncology | DX: Z95.2 Presence of prosthetic heart valve (principal); Z51.81 Encounter for therapeutic drug level monitoring; Z79.01 Long term (current) use of anticoagulants | CPT/HCPCS: 85610; 99212 ==

== ENCOUNTER 2024-07-05 11:34 | Outpatient (AMB) | payer MEDICARE, MEDICAID, SELFPAY ==
[2024-07-05 11:39] LABS: Prothrombin Time Whole Bld POC 35.6 sec (11.1-13.5)
--- NOTE | 2024-07-05 12:42 | MHC.OFFVISCO ---
Intake Intake Visit Reasons: Anticoagulation Allergies No Known Allergies Allergy (Mild, Verified 07/05/24 11:34) NOT APPLICABLE Medication List - Last Reconciled 07/05/24 by Magdalena Echeverria RN albuterol sulfate 90 mcg/actuation (Ventolin HFA) 1 puff inhalation RQ4H PRN amantadine HCl 100 mg PO BID atorvastatin 40 mg PO BEDTIME carbamide peroxide (Debrox) 5 DROPS EACH EAR EVERY 2 WEEKS cholecalciferol (vitamin D3) (Vitamin D3) 25 mcg PO QAM dicyclomine 20 mg PO BID ferrous sulfate 324 mg PO DAILY [FLUCINOLONE TOPICAL DAILY ] levothyroxine 25 mcg PO DAILY@0600 loratadine 10 mg PO DAILY magnesium oxide 400 mg PO BIDPC multivitamin with folic acid 400 mcg (Daily-Stanley (with folic acid)) 1 tab PO DAILY pantoprazole 40 mg PO BID prednisone 40 mg (2 x 20 mg) PO QAM revefenacin (Yupelri) 175 mcg (3 mL) inhalation DAILY 30 days risperidone (Risperdal) 4 mg PO BID tamsulosin 0.4 mg PO BEDTIME valproic acid 1000mg orally daily; warfarin See Protocol 2 mg orally 4MG DAILY OR DIRECTED; 4MG DAILY OR DIRECTED Nursing Note PT.HERE TODAY WITH SALES ASSISTANT DISPLAYS(CRYSTAL). HE IS AGITATED AND IMPATIENT STATING THAT HE REFUSES ANY SHOTS (LOVENOX) IN PREP FOR LUNG BX ON 07/13/24. THERE ARE NO LOVENOX ORDERS AT THIS TIME . SPOKE WITH SARAH AT PCP'S OFFICE AT 12:40PM RE POSSIBLE LOVENOX BRIDGE.AND SHE STATES THAT SHE WILL AGAIN ADDRESS THIS WITH COVERING MD. WILL ALSO NEED VNA TO ADMINISTER. SARAH PROMISES TO KEEP ACS AND CARE HOME INFORMED. FELIPE AT PT'S CARE HOME IS ALSO AWARE OF THE ABOVE AND WILL WAIT FOR ANY FURTHER INSTRUCTIONS. PT. WILL HOLD WARFARIN 5 DAYS, WITH LAST DOSE ON 07/07 AND TO RESUME WHEN INSTRUCTED BY MD AFTER PROCEDURE. FOLLOW-UP APPT. HERE ON 06/20/24. Anti-Coag Initial Assessment Social Hx Patient Tobacco Use Status: Refuse Tobacco use screen alcohol intake: never Coding Level of Care Code Est Patient Level 1 Diagnoses Current use of anticoagulant therapy Z79.01 Assessment & Plan Assessment & Plan (1) Current use of anticoagulant therapy: Code(s): Z79.01 - intermediate designer (current) use of anticoagulants Category: Medical
--- OUTSIDE RECORDS SUMMARY | 2024-07-05 14:03 | XMS_ITS | Encounter Summary ---
Author Organization [facility] Address [address] [place] [address] Phone Care Team Providers Care Rubber Attacher Name Role Phone Bc Yates Primary Care Provider +1- [phone] Reason for Visit * Reason Comments Med Refill Encounter Details Date Type Department Care Team (Late st Contact Info) Description 01/13/2022 Refill [facility] [address] [place] [address] Trever Lopez MD [address] [facility] [place] [address] Social History Tobacco Use Types [...] Visit [facility] [address] [place] [address] Trever Lopez MD [address] [facility] [place] [address] documented as of this encounter Visit Diagnoses Not on filedocumented in this encounter Care Teams Rubber Attacher Relationship Specialty Start Date End Date Bc Yates PCP - General Internal Medicine 10/05/22 documented as of this encounter
--- OUTSIDE RECORDS SUMMARY | 2024-07-05 14:03 | XMS_ITS | Encounter Summary ---
Author Organization [employer] Address [address] 7[address] [place] [address] Care Team Providers Care Strip Catcher Name Role Phone Bc Hunter MD Primary Care Prov ider Reason for Visit * Reason Comments Med Change Request Encounter Details Date Type Department Care Team ([facility] Contact Info) Description 07/19/2023 Refill [facility] MED & PEDS [address] [place] [address] Oralia Mazariegos FNP 505 [place] [address] Social History Tobacco Use Types Packs/Day Years [...] Care Team (Late st Contact Info) Description 10/02/2024 11:15 AM EDT Office Visit [facility] PEDS [address] [place] [address] Bc Hunter MD [address] [place] [address] documented as of this encounter Visit Diagnoses Not on filedocumented in this encounter Additional Health Concerns Assessment Noted Time PHQ-9 Depression Total Score: 0 07/11/19 23 11:26 AM EDT documented as of this encounter Care Teams Strip Catcher Relationship Specialty Start Date End Date Bc Hunter MD [address] [place] [address] PCP - General Internal Medicine 01/03/19 documented as of this encounter
--- OUTSIDE RECORDS SUMMARY | 2024-07-05 14:03 | XMS_ITS | Clinical Summary ---
Author Organization [facility] [place], Address [address] [place] [address] [place] [address] Phone Care Team Providers Care Financial Sales Associate Name Role Phone YatesBc Primary Care Provider Allergies No known active allergies Medications D3-50 1.25 MG (80858 UT) capsule TAKE 1 CAPSULE BY MOUTH [...] Telephone [facility] [place], [address] [place] [address] Sasha Bhatt from Last 3 [...] Visit [facility] [place], [address] [place] [phone] Trever Lopez MD [address] [facility] [place] [address] Health Maintenance Due Date Last Done Comments Colorectal Cancer Screening: Annual FOBT 2001 Colorectal Cancer Screening: Colonoscopy 2001 Colorectal Cancer Screening: Sigmoidoscopy 2001 Pneumococcal Vaccine: 50+ Ye ars (2 of 2 - PCV) 11/23/2015 11/22/2014 Influenza Vaccine (Season Ended) 2024 Pneumococcal Vaccine: Peds ( 0 to 5 Years) and At-Risk Patients (6 to 49 Years) Discontinued 11/22/2014 Hepatitis B Vaccine Aged Out No longe r eligible based on patient's age to complete this topic Insurance Medicare Medicaid [place] Care Teams Financial Sales Associate Relationship Specialty Start Date End Date Bc Yates: [phone] PCP - General Internal Medicine 10/05/22
--- OUTSIDE RECORDS SUMMARY | 2024-07-05 14:03 | XMS_ITS | Encounter Summary ---
Author Organization [employer] Address [address] [facility] 7 [place] [address] Care Team Providers Care Provider Network Manager Name Role Phone Bc Hunter MD Primary Care Prov ider Reason for Visit * Reason Onset Date Comments Nurse Triage 05/26/2023 Encounter Details Date Type Department Care Team (Late st Contact Info) Description 05/26/2023 Telephone [facility] MEDICINE [address] [place] [address] Bc Hunter MD [address] [place], [place] [phone] Nurse Triage Social History Tobacco Use Types [...] AM EST Triage call Pt is in long term, Krystin Sepulveda taking call and consent is signed by Pt for staff to speak . Pt has had some changes. Pt decided to stop all psyche medications and MD Ward Myers,discontinued them. (Stop date unknown) Pt has since that time decreased eating, appetite is poor. Pt weight yesterday at [facility]er [facility] around apt is 173lbs. Pt was said to be around 202lbs regularly. Pt clothes are fitting very loosely now. Pt also wanted to stop coumadin but, presser all around instructed that wouldn't be good to do [...] acuity questions The caller accepted this outcome [phone] documented in this encounter Plan of Treatment Upcoming Encounters Date Type Department Care Team (Late st Contact Info) Description 10/02/2024 11:15 AM EDT Office Visit [facility] & PEDS [address] [place] [address] Bc Hunter MD [address] [place] [address] documented as of this encounter Visit Diagnoses Not on filedocumented in this encounter Additional Health Concerns Assessment Noted Time PHQ-9 Depression Total Score: 0 07/11/19 23 11:26 AM EDT documented as of this encounter Care Teams Provider Network Manager Relationship Specialty Start Date End Date Bc Hunter MD [address] [place] [address] PCP - General Internal Medicine 01/03/19 documented as of this encounter
--- OUTSIDE RECORDS SUMMARY | 2024-07-05 14:03 | XMS_ITS | Encounter Summary ---
Author Organization [employer] Address [address] [facility] 7 [place] [address] Care Team Providers Care Hydrogen Braze Furnace Operator Name Role Phone Bc Hunter MD Primary Care Prov ider Encounter Details Date Type Department Care Team (Late st Contact Info) Description 07/16/2022 Telephone [facility] MED & PEDS [address] [place], [place] [phone] Bc Hunter MD 505 [place] [address] Social History Tobacco Use Types Packs/Day Years [...] swelling. Right side. Please contact Lori @ [phone] if additional labs are requested by PCP [...] swelling. Right side. Please contact Lori @ [phone] if additional labs are requested by PCP [...] Description 10/02/2024 11:15 AM EDT Office Visit [facility] & PEDS [address] [place] [address] Bc Hunter MD [address] [place] [address] documented as of this encounter Visit Diagnoses Not on filedocumented in this encounter Additional Health Concerns Assessment Noted Time PHQ-9 Depression Total Score: 0 07/11/19 23 11:26 AM EDT documented as of this encounter Care Teams Hydrogen Braze Furnace Operator Relationship Specialty Start Date End Date Bc Hunter MD [address] [place] [address] PCP - General Internal Medicine 01/03/19 documented as of this encounter
--- OUTSIDE RECORDS SUMMARY | 2024-07-05 14:03 | XMS_ITS | Encounter Summary ---
Author Organization [employer] Address [address] [facility] [facility] 7 [place] [address] Care Team Providers Care Medical Staff Coordinator Name Role Phone Bc Hunter MD Primary Care Prov ider Reason for Visit * Reason Onset Date Comments Med Refill 05/15/2022 Encounter Details Date Type Department Care Team ([facility] st Contact Info) Description 05/15/2022 Telephone [facility] MED & PEDS [address] [place] [address] Bc Hunter MD [address] [place] [address] Med Refill Social History Tobacco Use Types [...] a max daily dose. Call placed to [facility] Coumadin clinic. Per Della, pt is currently [...] 11:54 AM EST Tc from Amy with [facility] requesting some kinds of specific directions for warfarin (Coumadin) 2 MG tablet If any question please contact amy at [phone] documented in this encounter Plan of Treatment Upcoming Encounters Date Type Department Care Team (Late st Contact Info) Description 10/02/2024 11:15 AM EDT Office Visit [facility] MED & PEDS [address] [place] [address] Bc Hunter MD [address] [place] [address] documented as of this encounter Visit Diagnoses Not on filedocumented in this encounter Care Teams Medical Staff Coordinator Relationship Specialty Start Date End Date Bc Hunter MD [address] [place] [address] PCP - General Internal Medicine 01/03/19 documented as of this encounter
--- OUTSIDE RECORDS SUMMARY | 2024-07-05 14:03 | XMS_ITS | Encounter Summary ---
Author Organization [employer] Address [address] [place] [address] 7 [place] [address] Care Team Providers Care Relief Charge Nurse Name Role Phone Bc Hunter MD Primary Care Prov ider Encounter Details Date Type Department Care Team (Late Contact Info) Description 05/18/2022 Orders Only [facility] MED & PEDS [address] [place], [place] [phone] Bc Hunter MD [address] [place], [place] [phone] S/P aortic valve replacement Social History Tobacco [...] Department Care Team (Late Contact Info) Description 10/02/2024 11:15 AM EDT Office Visit [facility] MED & PEDS [address] [place], [place] [phone] Bc Hunter MD [address] [place], [place] [phone] documented as of this encounter Visit Diagnoses Diagnosis S/P aortic valve replacement Heart valve replaced by other means documented in this encounter Care Teams Relief Charge Nurse Relationship Specialty Start Date End Date Bc Hunter MD [address] [place] [address] PCP - General Internal Medicine 01/03/19 documented as of this encounter
--- OUTSIDE RECORDS SUMMARY | 2024-07-05 14:03 | XMS_ITS | Clinical Summary ---
Author Organization [facility] Address [address] [place] [address] Phone Care Team Providers Care Biometrics Instructor Name Role Phone Bc Hunter Primary Care Provide r Encounters Date Type Department Care Team Description 06/07/2024 10:39 AM EDT - 06/07/2024 11:59 PM EDT Hospital Encounter [facility] PET Scan [address] [place] [address] Discharge Disposition: Home or Self Care from Last 3 Months Medical History Medical History Date Comments Heart valve replaced by other means 06/29/2011 DX:Heart valve replaced by other means Asthma 06/29/2011 DX:Asthma Tobacco abuse 06/29/2011 DX:Tobacco abuse Schizophrenia ([facility] V24, [facility] V28) 06/29/2011 DX:Schizophrenia ([facility]) Unspecified hypothyroidism 06/29/2011 DX:Un specified hypothyroidism Chronic [...] Signed Date: 06/13/2024 09:29 ET Workstation ID: [id number] Transcribed By: Self Edit Transcribed Date: 06/13/2024 [...] Signed Date: 06/13/2024 09:29 ET Workstation ID: [id number] Transcribed By: Self Edit Transcribed Date: 06/13/2024 08:22 ET Lenny Irving MD IM NM PROCEDURES Final Result from Last 3 Months Insurance MEDICARE MEDICAID - [place] Care Teams Biometrics Instructor Relationship Specialty Start Date End Date Bc Hunter [address] [place] [id number] PCP - General Internal Medicine 04/13/24
--- OUTSIDE RECORDS SUMMARY | 2024-07-05 14:03 | XMS_ITS | Encounter Summary ---
Author Organization [facility] Address [address] [place] [address] Phone Care Team Providers Care Stratigrapher Name Role Phone Bc Yates Primary Care Provider +1- [phone] Encounter Details Date Type Department Care Team (Late st Contact Info) Description 05/26/2021 Documentation Only [facility] [address] [place] [address] Trever Lopez MD [address] [place] [address] [place] [address] Social History Tobacco Use Types [...] Visit [facility] [address] [place] [address] Trever Lopez MD [address] [place] [address] [place] [address] documented as of this encounter Visit Diagnoses Not on filedocumented in this encounter Care Teams Stratigrapher Relationship Specialty Start Date End Date Bc Yates PCP - General Internal Medicine 10/05/22 documented as of this encounter
--- OUTSIDE RECORDS SUMMARY | 2024-07-05 14:03 | XMS_ITS | Encounter Summary ---
Author Organization [employer] Address [address] [facility] [address] 7 [place] [address] Care Team Providers Care Professor Of Exercise Science Name Role Phone Bc Hunter MD Primary Care Prov ider Encounter Details Date Type Department Care Team (Late st Contact Info) Description 09/20/2023 Orders Only [facility] MED & PEDS [address] [place], [place] [phone] Bc Hunter MD [address] [place] [address] Social History Tobacco Use Types Packs/Day Years [...] Description 10/02/2024 11:15 AM EDT Office Visit [facility] MED & PEDS [address] [place] [address] Bc Hunter MD [address] [place] [address] documented as of this encounter Visit Diagnoses Not on filedocumented in this encounter Additional Health Concerns Assessment Noted Time PHQ-9 Depression Total Score: 0 07/11/19 23 11:26 AM EDT documented as of this encounter Care Teams Professor Of Exercise Science Relationship Specialty Start Date End Date Bc Hunter MD [address] [place] [address] PCP - General Internal Medicine 01/03/19 documented as of this encounter
--- OUTSIDE RECORDS SUMMARY | 2024-07-05 14:03 | XMS_ITS | Encounter Summary ---
Author Organization [employer] Address [address] [facility] 7 [place] [address] Care Team Providers Care Teachers Assistant Name Role Phone Bc Hunter MD Primary Care Prov ider Reason for Visit * Reason Onset Date Comments Med Refill 05/12/2022 Encounter Details Date Type Department Care Team (Late st Contact Info) Description 05/12/2022 Telephone [facility] MEDICINE [address] [place] [address] Bc Hunter MD [address] [place], [place] [phone] Med Refill Social History Tobacco Use Types [...] Description 10/02/2024 11:15 AM EDT Office Visit [facility] CHC MED & PEDS [address] [place] [address] Bc Hunter MD 505 [place] [address] documented as of this encounter Visit Diagnoses Not on filedocumented in this encounter Care Teams Teachers Assistant Relationship Specialty Start Date End Date Bc Hunter MD [address] [place] [address] PCP - General Internal Medicine 01/03/19 documented as of this encounter
--- OUTSIDE RECORDS SUMMARY | 2024-07-05 14:04 | XMS_ITS | Encounter Summary ---
Author Organization [employer] Address [address] [facility] 7 [place] [address] Care Team Providers Care Furniture Packer Name Role Phone Bc Hunter MD Primary Care Prov ider Reason for Visit * Reason Onset Date Comments Nurse Triage 2024 Encounter Details Date Type Department Care Team ([facility] st Contact Info) Description 2024 Telephone [facility] MEDICINE [address] [place] [address] Bc Hunter MD [address] [place], [place] [phone] Nurse Triage Social History Tobacco Use Types [...] EDT called pt to triage, spoke to pattern layout worker, ANTONIO. pt was seen on 06/14 by [facility] pulmonology on 06/14 and due to some distress was sent to the ER for evaluation. pt diagnosed with Pneumonia and put onantibiotics x5 days. worker states pt eating and drinking, not having any fevers or severe/sustained sob, or other associated symptoms. given appt Wednesday with [facility] at 1:00 for exam [...] 2024 3:49 PM EDT Tc from Patient COMPLIANCE SPEC to report ED visit on : Date: 06/14 Hospital: [facility] Seen for: pneumonia Symptomatic Yes *if yes message should go to Triage Patient advised will forward to team nurse for follow up [phone] pt documented in this encounter Plan of Treatment Upcoming Encounters Date Type Department Care Team (Late st Contact Info) Description 10/02/2024 11:15 AM EDT Office Visit [facility] MED & PEDS [address] [place] [address] Bc Hunter MD [address] [place] [address] documented as of this encounter Visit Diagnoses Not on filedocumented in this encounter Additional Health Concerns Assessment Noted Time PHQ-9 Depression Total Score: 0 09/30/19 24 11:02 AM EDT documented as of this encounter Care Teams Furniture Packer Relationship Specialty Start Date End Date Bc Hunter MD [address] [place] [address] PCP - General Internal Medicine 01/03/19 documented as of this encounter
--- OUTSIDE RECORDS SUMMARY | 2024-07-05 14:04 | XMS_ITS | Encounter Summary ---
Author Organization [employer] Address [address] [facility] [address] 7[address] [place] [address] Care Team Providers Care Boiler Room Helper Name Role Phone Bc Hunter MD Primary Care Prov ider Encounter Details Date Type Department Care Team (Late st Contact Info) Description 07/05/2024 Orders Only GENERIC EXTERNAL DATA DEPARTMENT Provider, [...] Description 10/02/2024 11:15 AM EDT Office Visit [facility] MED & PEDS 505 [place] [address] Bc Hunter MD 505 [place] [address] documented as of this encounter Procedures Procedure Name Priority Date/Time Associated Diagnosis Comments PROTHROMBIN TIME WHOLE BLD POC Routine 07/05/2024 11:37 AM EDT ~PT, ~INR - ANTI COAG CLINIC Routine 07/05/2024 11:37 AM EDT documented in this encounter Results * (ABNORMAL) PROTHROMBIN TIME WHOLE BLD POC (07/05/2024 11:37 AM EDT) Protime 35.6(H) 11.1 - 13.5 sec [facility] 07/05/2024 11:3 7 AM EDT 07/05/2024 11:39 AM EDT us Generic External Data Provider LAB BLOOD ORDERAB LES Final Result [facility] [address] [place] [address] [phone] * (ABNORMAL) ~PT, ~INR - ANTI COAG CLINIC (07/05/2024 11:37 AM EDT) Prothrombin Time INR 3.0(H) 0.9 - 1.1 [facility] Comment:METER #: [id number] TERNATIONAL NORMALIZED RATIO (INR) REFERENCE RANGES Reference RangeFor patients not on anticoagulant therapy: 0.9 - 1.1INR ranges for oral anticoagulanttherapy:For prevention and treatment of venous thrombosis and pulmonary embolism: 2.0 - 3.0For acute myocardial infarction with aspirin therapy: 2.0 - 3.0For acute myocardial infarction without aspirin therapy: 3.0 - 4.0For patients with mechanical prosthetic heart valves: 2.5 - 3.5 07/05/2024 11:3 7 AM EDT 07/05/2024 11:39 AM EDT us Generic External Data Provider LAB BLOOD ORDERAB LES Final Result [facility] [address] [place] [address] [phone] documented in this encounter Visit Diagnoses Not on filedocumented in this encounter Additional Health Concerns Assessment Noted Time PHQ-9 Depression Total Score: 0 09/30/19 24 11:02 AM EDT documented as of this encounter Care Teams Boiler Room Helper Relationship Specialty Start Date End Date Bc Hunter MD [address] [place] [address] PCP - General Internal Medicine 01/03/19 documented as of this encounter
--- OUTSIDE RECORDS SUMMARY | 2024-07-05 14:04 | XMS_ITS | Encounter Summary ---
Author Organization [employer] [facility] Address [address] [place] [address] [place] [address] Care Team Providers Care Level Vial Inspector Name Role Phone Bc Hunter MD Primary Care Prov ider Reason for Visit * Reason Comments Med Refill Encounter Details Date Type Department Care Team (Late Contact Info) Description 10/25/2022 Refill [facility] MED & PEDS [address] [place] [address] Bc Hunter MD [address] [place] [address] Social History Tobacco Use Types Packs/Day Years [...] Description 10/02/2024 11:15 AM EDT Office Visit [facility] CH[facility] MED & PEDS [address] [place], [place] [phone] Bc Hunter MD [address] [place] [address] documented as of this encounter Visit Diagnoses Not on filedocumented in this encounter Additional Health Concerns Assessment Noted Time PHQ-9 Depression Total Score: 0 07/11/19 23 11:26 AM EDT documented as of this encounter Care Teams Level Vial Inspector Relationship Specialty Start Date End Date Bc Hunter MD [address] [place] [address] PCP - General Internal Medicine 01/03/19 documented as of this encounter
--- OUTSIDE RECORDS SUMMARY | 2024-07-05 14:04 | XMS_ITS | Encounter Summary ---
Author Organization [employer] Address [address] [facility] 7 [place] [address] Care Team Providers Care Bucket Hooker Name Role Phone Bc Hunter MD Primary Care Prov ider Reason for Visit * Reason Onset Date Comments Referral 12/06/2023 Encounter Details Date Type Department Care Team ([facility] st Contact Info) Description 12/06/2023 Telephone [facility] MEDICINE [address] [place] [address] Bc Hunter MD [address] [place], [place] [phone] Referral Social History Tobacco Use Types Packs/Day [...] to be seen [place] S[place] the [place] if[place] documented in this encounter Plan of Treatment Upcoming Encounters Date Type Department Care Team (Late st Contact Info) Description 10/02/2024 11:15 AM EDT Office Visit [facility] CH[facility] MED & PEDS [address] [place] [address] Bc Hunter MD [address] [place] [address] documented as of this encounter Visit Diagnoses Not on filedocumented in this encounter Additional Health Concerns Assessment Noted Time PHQ-9 Depression Total Score: 0 09/30/19 24 11:02 AM EDT documented as of this encounter Care Teams Bucket Hooker Relationship Specialty Start Date End Date Bc Hunter MD [address] [place] [address] PCP - General Internal Medicine 01/03/19 documented as of this encounter
--- OUTSIDE RECORDS SUMMARY | 2024-07-05 14:04 | XMS_ITS | Encounter Summary ---
Author Organization [employer] Address [address] 7[address] [place] [address] Care Team Providers Care Pondman Name Role Phone Bc Hunter MD Primary Care Prov ider Reason for Visit * Reason Onset Date Comments Medication Question 06/29/2024 Encounter Details Date Type Department Care Team ([facility] st Contact Info) Description 06/29/2024 Telephone [facility] MEDICINE [address] [place], [place] [phone] 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, floral artist Question Social History Tobacco Use Types Packs/Day Years [...] encounter Miscellaneous Notes * Telephone Encounter - Rubén Vidales - 07/04/2024 4:38 PM EDT Tc from Lori with Coumadin clinic needing response from pcp . Per message The coumadin clinic is questioning Lovenox and renal dose 1.5 mg per kg due to pt having an mechanical heart valve. Arianna states if necessary that it would be easier for the staff at the [facility] to be able to give one dose a day due to pt may refuse the Lovenox due to their mental health. Message forwarded to [facility] nurses for follow up. * Telephone Encounter - Marcela Kaufman RN - 06/29/2024 1:50 PM EDT Incoming call from Arianna with [facility] on critical line. States that she spoke to nurses earlier in regards to Lovenox request. Arianna state that pt lives in [facility], if pt needs Lovenox, ptwill also need a VNA service to administer. Danielle FLETCHER made aware, will route to team inbox. * Telephone Encounter - 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 RN - 06/29/2024 11:35 AM EDT Incoming call to pediatrics critical line from Arianna @ [facility] Coumadin clinic. Arianna reports [...] be easier for the staff at the [facility] to be able to give one dose a day due to pt may refuse the Lovenox due to their mental health. Message forwarded to [facility] nurses for follow up. documented in this encounter Plan of Treatment Upcoming Encounters Date Type Department Care Team (Late st Contact Info) Description 10/02/2024 11:15 AM EDT Office Visit [facility] MED & PEDS [address] [place] [address] Bc Hunter MD [address] [place] [address] documented as of this encounter Visit Diagnoses Not on filedocumented in this encounter Additional Health Concerns Assessment Noted Time PHQ-9 Depression Total Score: 0 09/30/19 24 11:02 AM EDT documented as of this encounter Care Teams Pondman Relationship Specialty Start Date End Date Bc Hunter MD [address] [place] [address] PCP - General Internal Medicine 01/03/19 documented as of this encounter
--- OUTSIDE RECORDS SUMMARY | 2024-07-05 14:04 | XMS_ITS | Encounter Summary ---
Author Organization [employer] Address [address] [facility] 7 [place] [address] Care Team Providers Care Marine Fitter Name Role Phone Bc Hunter MD Primary Care Prov ider Reason for Visit * Reason Comments ER Follow-up Encounter Details Date Type Department Care Team (Latest Contact Info) Description 07/03/2024 11:15 AM EDT Office Visit [facility] CHC MED & PEDS [address] [place] [address] Zafar Richard MD [address] [place] [address] Multifocal pneumonia (Primary Dx); Acquired hypothyroidism Social History Tobacco Use Types Packs/Day Years [...] Sign Reading Time Taken Comments Blood Pressure 107/61 07/03/2024 11:28 AM EDT Pulse 85 07/03/2024 11:28 AM EDT Temperature 36.8 ??C (98.2 ??F) 07/03/2024 11:28 AM E DT Respiratory Rate 20 07/03/2024 11:28 AM EDT Oxygen Saturation 98% 07/03/2024 11:28 AM EDT Inhaled Oxygen Concentration - - Weight 81.6 kg (180 lb) 07/03/2024 11:28 AM EDT Height 177.8 cm (5' 10 ) 07/03/2024 11:28 AM EDT Body Mass Index 25.83 07/03/2024 11:28 AM EDT documented in this encounter Progress Notes * Zafar Richard MD - 07/03/2024 11:15 AM EDT Subjective Patient ID: Chris Zaragoza is a 74 y.o. male who presents for ER Follow-up. ER Follow-up Pertinent negatives include no chills, coughing, diaphoresis, fatigue, joint swelling or myalgias. Evaluated at [facility] walk-in [facility] June 27, 2024 for shortness of breath and fatigue. Patient was recently treated fo multifocal pneumonia about 2 weeks prior to that evaluation. Was saturating at 100% during the evaluation His treatment with doxycycline and recommended was completed Patient refused at that time to take a course of prednisone Has a scheduled follow-up appointment with his sock knitter Dr. Irving on July 11 and was advisedto be evaluated if he has worsening symptoms, develops fever, becomes acutely short of breath. Patient was stable and discharged. A new prescription of prednisone was sent to him and the staff was advised to offer it to him. According to the staff present during the encounter today Mr. Chris Zaragoza subsequently agreed to start the prednisone with improvement. He is asymptomatic today. Patient Active Problem List Diagnosis History of Coumadin therapy S/P aortic valve replacement Pre-op evaluation Hyperlipemia, mixed Benign prostatic hyperplasia with urinary frequency Bilateral impacted cerumen Hypothyroidism Mild chronic obstructive pulmonary disease (CMS/HCC) Stage 3a chronic kidney disease (CMS/HCC) Iron deficiency anemia Physical exam Sprain of left ankle Seborrheic dermatitis of scalp Other schizophrenia (CMS/HCC) Nodule of left lung Smoking Current Outpatient Medications on File Prior to Visit Medication Sig Dispense Refill Acetaminophen Extra Strength 500 MG tablet TAKE 1 TABLET (500 MG) BY MOUTH EVERY 6 (SIX) HOURS IF NEEDED FOR MODERATE PAIN. 60 tablet 3 albuterol (ProAir HFA) 108 (90 Base) MCG/ACT inhaler inhale 2 puff by inhalation route every 4 hours as needed 18 g 3 albuterol 108 (90 Base) MCG/ACT inhaler Inhale 2 puffs every 4 (four) hours if needed for wheezing.18 g 1 atorvastatin (Lipitor) 40 MG tablet TAKE 1 TABLET BY MOUTH EVERY DAY IN THE MORNING 90 tablet 1 benztropine (Cogentin) 1 MG tablet Take 1 tablet by mouth 2 times daily. dicyclomine (Bentyl) 20 MG tablet TAKE 1 TABLET BY MOUTH BEFORE BREAKFAST AND BEFORE EVENING MEAL. 180 tablet 1 divalproex (Depakote ER) 500 MG 24 hr tablet Take 2 tablets by mouth at bedtime. ferrous sulfate 325 (65 Fe) MG tablet TAKE 1 TABLET BY MOUTH EVERY MORNING 90 tablet 3 fluPHENAZine decanoate (Prolixin) 25 MG/ML injection Inject 25 mg into the shoulder, thigh, or buttocks every 28 (twenty-eight) days. guaiFENesin (Mucinex) 600 MG 12 hr tablet Take 2 tablets (1,200 mg) by mouth 2 times daily. Do not crush, chew, or split. 10 tablet 0 ketoconazole (Nizoral) 2 % shampoo Apply topically 2 (two) times a week. Use to wash out flucinonide oil in the morning 3x/week as directed 100 mL 2 levothyroxine (Synthroid, Levoxyl) 25 MCG tablet TAKE 1 TABLET BY MOUTH EVERY DAY AT 6 AM 90 tablet3 levothyroxine (Synthroid, Levoxyl) 25 MCG tablet TAKE 1 TABLET (25 MCG) BY MOUTH IN THE MORNING 90 tablet 3 loratadine (Claritin) 10 MG tablet TAKE 1 TABLET (10 MG) BY MOUTH DAILY NEEDED FOR ALLERGIES 30 tablet 2 magnesium oxide (Mag-Ox) 400 (240 Mg) MG tablet TAKE 1 TABLET BY MOUTH TWICE A DAY 180 tablet 1 mometasone (Elocon) 0.1 % lotion Apply topically Once per day. Please provide scalp solution 60 mL 0 Multiple Vitamin (Daily-Stanley Multivitamin) tablet Take 1 tablet by mouth Once per day. TAKE 1 TABLET BY MOUTH EVERY DAY WITH FOOD 90 tablet 3 pantoprazole (ProtoNix) 40 MG EC tablet TAKE 1 TABLET BY MOUTH TWICE A DAY IN THE MORNING AND IN THE EVENING 180 tablet 1 risperiDONE (RisperDAL) 1 MG tablet Take 1 tablet by mouth 2 times daily. tamsulosin (Flomax) 0.4 MG 24 hr capsule TAKE 1 CAPSULE BY MOUTH EVERY DAY IN THE MORNING 90 capsule 0 Trelegy Ellipta 100-62.5-25 MCG/ACT aerosol powder Inhale 1 puff Once per day. 60 each 3 warfarin (Coumadin) 2 MG tablet TAKE 1-2 TABLETS EVERY EVENING DIRECTED BY COUMADIN CLINIC 180 tablet 1 No current facility-administered medications on file prior to visit. No Known Allergies Review of Systems Constitutional: Negative for chills, diaphoresis and fatigue. Eyes: Negative for photophobia, pain and redness. Respiratory: Negative for cough, choking and shortness of breath. Musculoskeletal: Negative for gait problem, joint swelling and myalgias. Objective Physical Exam Constitutional: General: He is not in acute distress. Appearance: Normal appearance. He is not ill-appearing, toxic-appearing or diaphoretic. Cardiovascular: Rate and Rhythm: Normal rate. Pulmonary: Effort: Pulmonary effort is normal. Breath sounds: Normal breath sounds. Skin: General: Skin is warm. Neurological: General: No focal deficit present. Mental Status: He is alert. Assessment/Plan Diagnoses and all orders for this visit: Multifocal pneumonia Comments: Resolved. Patient is asymptomatic. Declines help to quit smoking. Patient and the staff were instructed to contact the office in case of recurrence of the symptoms Acquired hypothyroidism Comments: Follow-up with PCP as scheduled documented in this encounter Plan of Treatment Upcoming Encounters Date Type Department Care Team (Late st Contact Info) Description 10/02/2024 11:15 AM EDT Office Visit [facility] MED & PEDS [address] [place] [address] Bc Hunter MD [address] [place] [address] documented as of this encounter Visit Diagnoses Diagnosis Multifocal pneumonia- Primary Acquired hypothyroidism Unspecified hypothyroidism documented in this encounter Additional Health Concerns Assessment Noted Time PHQ-9 Depression Total Score: 0 09/30/19 24 11:02 AM EDT documented as of this encounter Care Teams Marine Fitter Relationship Specialty Start Date End Date Bc Hunter MD [address] [place] [address] PCP - General Internal Medicine 01/03/19 documented as of this encounter
--- OUTSIDE RECORDS SUMMARY | 2024-07-05 14:04 | XMS_ITS | Encounter Summary ---
Author Organization [employer] Address [address] [facility] [address] 7[address] [place] [address] Care Team Providers Care Medical Front Desk Specialist Name Role Phone Bc Hunter MD Primary Care Prov ider Encounter Details Date Type Department Care Team (Latest Contact Info) Description 07/03/2024 Travel Social History Tobacco Use Types Packs/Day [...] Description 10/02/2024 11:15 AM EDT Office Visit [facility] MED & PEDS [address] [place] [address] Bc Hunter MD [address] [place] [address] documented as of this encounter Visit Diagnoses Not on filedocumented in this encounter Additional Health Concerns Assessment Noted Time PHQ-9 Depression Total Score: 0 09/30/19 24 11:02 AM EDT documented as of this encounter Care Teams Medical Front Desk Specialist Relationship Specialty Start Date End Date Bc Hunter MD [address] [place] [address] PCP - General Internal Medicine 01/03/19 documented as of this encounter
--- OUTSIDE RECORDS SUMMARY | 2024-07-05 14:04 | XMS_ITS | Encounter Summary ---
Author Organization [employer] Address [address] [facility] 7 [place] [address] Care Team Providers Care Flanging Operator Name Role Phone Bc Hunter MD Primary Care Prov ider Reason for Visit * Reason Onset Date Comments Call Back Request 07/05/2024 Encounter Details Date Type Department Care Team ([facility] st Contact Info) Description 07/05/2024 Telephone [facility] MEDICINE [address] [place] [address] Bc Hunter MD [address] [place], [place] [phone] Call Back Request Social History Tobacco Use [...] encounter Miscellaneous Notes * Telephone Encounter - Az Lawrence - 07/05/2024 12:18 PM EDT Tc from Kimberly with [facility] requesting a call back regarding the pt Lovenox. Contact Kimberly at [phone] documented in this encounter Plan of Treatment Upcoming Encounters Date Type Department Care Team (Late st Contact Info) Description 10/02/2024 11:15 AM EDT Office Visit [facility] MED & PEDS [address] [place] [address] Bc Hunter MD [address] [place] [address] documented as of this encounter Visit Diagnoses Not on filedocumented in this encounter Additional Health Concerns Assessment Noted Time PHQ-9 Depression Total Score: 0 09/30/19 24 11:02 AM EDT documented as of this encounter Care Teams Flanging Operator Relationship Specialty Start Date End Date Bc Hunter MD [address] [place] [address] PCP - General Internal Medicine 01/03/19 documented as of this encounter
--- OUTSIDE RECORDS SUMMARY | 2024-07-05 14:04 | XMS_ITS | Encounter Summary ---
Author Organization [employer] [facility] Address [address] [place] [address] 7 [place] [address] Care Team Providers Care Archival Studies Professor Name Role Phone Bc Hunter MD Primary Care Prov ider Encounter Details Date Type Department Care Team (Late Contact Info) Description 02/24/2022 Telephone [facility] MEDICINE [address] [place] [address] Bc Hunter MD [address] [place], [place] [phone] Social History Tobacco Use Types Packs/Day Years [...] Description 10/02/2024 11:15 AM EDT Office Visit [facility] MED & PEDS [address] [place] [address] Bc Hunter MD [address] [place], [place] [phone] documented as of this encounter Visit Diagnoses Not on filedocumented in this encounter Care Teams Archival Studies Professor Relationship Specialty Start Date End Date Bc Hunter MD [address] [place], [place] [phone] PCP - General Internal Medicine 01/03/19 documented as of this encounter
--- OUTSIDE RECORDS SUMMARY | 2024-07-05 14:04 | XMS_ITS | Encounter Summary ---
Author Organization [employer] Address [address] [facility] 7 [place] [address] Care Team Providers Care Advertising Copy Writer Name Role Phone Bc Hunter MD Primary Care Prov ider Reason for Visit * Reason Comments Med Refill Encounter Details Date Type Department Care Team ([facility] Contact Info) Description 07/05/2024 Refill [facility] MED & PEDS [address] [place] [address] Bc Hunter MD [address] [place] [address] Gastroesophageal reflux disease without esophagitis Social History Tobacco Use Types Packs/Day Years [...] Description 10/02/2024 11:15 AM EDT Office Visit [facility] MED & PEDS [address] [place] [address] Bc Hunter MD [address] [place] [address] documented as of this encounter Visit Diagnoses Diagnosis Gastroesophageal reflux disease without esophagitis Esophageal reflux documented in this encounter Additional Health Concerns Assessment Noted Time PHQ-9 Depression Total Score: 0 09/30/19 24 11:02 AM EDT documented as of this encounter Care Teams Advertising Copy Writer Relationship Specialty Start Date End Date Bc Hunter MD [address] [place] [address] PCP - General Internal Medicine 01/03/19 documented as of this encounter
--- OUTSIDE RECORDS SUMMARY | 2024-07-05 14:04 | XMS_ITS | Encounter Summary ---
Author Organization [employer] Address [address] [facility] 7 [place] [address] Care Team Providers Care Mink Farmer Name Role Phone Bc Hunter MD Primary Care Prov ider Reason for Visit * Reason Onset Date Comments Lab Orders 07/05/2024 Encounter Details Date Type Department Care Team ([facility] st Contact Info) Description 07/05/2024 Telephone [facility] [address] [place] [address] Bc Hunter MD [address] [place], [place] [phone] Lab Orders Social History Tobacco Use Types Packs/Day Years [...] Telephone Encounter - Danielle Rodriguez RN - 07/05/2024 11:04 AM EDT T-spot order placed. Informed patient they could come in at their convenience to get lab work done. * Telephone Encounter - Gia Mathews - 07/05/2024 10:22 AM EDT Tc from pt requesting Tb test documented in this encounter Plan of Treatment Upcoming Encounters Date Type Department Care Team (Late st Contact Info) Description 10/02/2024 11:15 AM EDT Office Visit [facility] [address] [place] [address] Bc Hunter MD [address] [place] [address] Scheduled Orders Name Type Priority Associated Diagnoses Orde r Schedule T-SPOT??.TB Lab Routine Screening examination for pulmonary tuberculosis Expected: 07/05/2024 (Approximate), Expires: 07/05/2025 documented as of this encounter Visit Diagnoses Diagnosis Screening examination for pulmonary tuberculosis documented in this encounter Additional Health Concerns Assessment Noted Time PHQ-9 Depression Total Score: 0 09/30/19 24 11:02 AM EDT documented as of this encounter Care Teams Mink Farmer Relationship Specialty Start Date End Date Bc Hunter MD [address] [place] [phone] PCP - General Internal Medicine 01/03/19 documented as of this encounter
--- OUTSIDE RECORDS SUMMARY | 2024-07-05 14:04 | XMS_ITS | Encounter Summary ---
Author Organization [employer] Address [address] [facility] 7 [place] [address] Care Team Providers Care District Scout Executive Name Role Phone Bc Hunter MD Primary Care Prov ider Reason for Visit * Reason Comments Med Refill Encounter Details Date Type Department Care Team ([facility] Contact Info) Description 05/18/2023 Refill [facility]S [address] [place] [address] Bc Hunter MD [address] [place] [address] Social History Tobacco Use Types Packs/Day Years [...] 11:15 AM EDT Office Visit [facility] [address] [place] [address] Bc Hunter MD [address] [place] [address] documented as of this encounter Visit Diagnoses Not on filedocumented in this encounter Additional Health Concerns Assessment Noted Time PHQ-9 Depression Total Score: 0 07/11/19 23 11:26 AM EDT documented as of this encounter Care Teams District Scout Executive Relationship Specialty Start Date End Date Bc Hunter MD [address] [place] [address] PCP - General Internal Medicine 01/03/19 documented as of this encounter
--- OUTSIDE RECORDS SUMMARY | 2024-07-05 14:04 | XMS_ITS | Encounter Summary ---
Author Organization [employer] Address [address] [place] [address] 7 [place] [address] Care Team Providers Care Swim Coach Name Role Phone Bc Hunter MD Primary Care Prov ider Reason for Visit * Reason Onset Date Comments Med Refill 09/21/2022 Encounter Details Date Type Department Care Team ([facility] st Contact Info) Description 09/21/2022 Telephone [facility]S [address] [place] [address] Bc Hunter MD [address] [place] [address] Med Refill Social History Tobacco Use Types [...] Warfarin 1 mg tablet [id number] [place], [place] - [address] [facility] Please sent to documented in this encounter Plan of Treatment Upcoming Encounters Date Type Department Care Team (Late st Contact Info) Description 10/02/2024 11:15 AM EDT Office Visit [facility] [address] [place] [address] Bc Hunter MD [address] [place] [address] documented as of this encounter Visit Diagnoses Diagnosis History of Coumadin therapy- Primary S/P aortic valve replacement Heart valve replaced by other means documented in this encounter Additional Health Concerns Assessment Noted Time PHQ-9 Depression Total Score: 0 07/11/19 23 11:26 AM EDT documented as of this encounter Care Teams Swim Coach Relationship Specialty Start Date End Date Bc Hunter MD [address] [place] [address] PCP - General Internal Medicine 01/03/19 documented as of this encounter
--- OUTSIDE RECORDS SUMMARY | 2024-07-05 14:04 | XMS_ITS | Clinical Summary ---
Author Organization [employer] Address [address] [place] [address] 7t [place] [address] Care Team Providers Care Ripening Room Hand Name Role Phone Bc Hunter MD Primary [...] EVENING MEAL. 180 tablet 1 024 Active albuterol 108 [...] or split. 10 tablet 025 2025 Active pantoprazole (ProtoNix) 40 MG EC tabletIndications :Gastroesophageal reflux disease without esophagitis TAKE 1 TABLET BY MOUTH TWICE A DAY IN THE MORNING AND IN THE EVENING 180 tablet 1 025 Active pantoprazole (ProtoNix) 40 MG EC tabletIndications :Gastroesophageal reflux disease without esophagitis TAKE 1 TABLET BY MOUTH TWICE A DAY IN THE MORNING AND IN THE EVENING 180 tablet 1 024 2024 Discontinued Active Problems Problem Noted Date Diagnosed Date Smoking 06/19/2024 Nodule of left lung 04/26/2024 Assessment & Plan (04/26/2024 11:54 AM EST): Will order a follow up LDCT scan, 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 Plan to bridge pt from Eliquis to Coumadin. May DC Eliquis once Coumadin therapeutic Coumadin dosinmg on Wednesday and Wednesday 4mg all other days of the week Plan: [facility] Coagulation clinic to reach out to alf to schedule INR check and re-start on [...] Encounters Date Type Department Care Team Description 07/05/[address] [address] Bc Hunter MD Call Back Request 07/05/2024 Orders Only GENERIC EXTERNAL DATA DEPARTMENT Provider, Generic External Data 07/05/[address] [address] Bc Hunter MD Lab Orders 07/05/2024 Refill [facility] [address] [place] [address] Bc Hunter MD Gastroesophageal reflux disease without esophagitis 07/03/2024 11:15 AM EDT Office Visit [facility] [address] [place] [address] Zafar Richard MD Multifocal pneumonia (Primary Dx); Acquired hypothyroidism 07/03/2024 Travel 06/29/[address] [address] 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, 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 Question 06/29/2024 Orders Only GENERIC EXTERNAL DATA DEPARTMENT Provider, Generic External Data 06/28/2024 Telephone [facility] [address] [place] [address] Bc Hunter MD Nurse Triage 06/27/2024 Orders Only [facility] External Provider, [facility] 06/23/2024 Telephone [facility] [address] [place] [address] Bc Hunter MD Call Back Request 06/19/2024 1:00 PM EDT Office Visit [facility] [address] [place] [address] Zafar Richard MD Mild chronic obstructive pulmonary disease (CMS/HCC) (Primary Dx); Solitary lung nodule; Dyspnea on exertion; Smoking 06/19/2024 Travel 2024 Telephone [facility] [address] [place] [address] Bc Hunter MD Nurse Triage 06/13/2024 Orders Only GENERIC EXTERNAL DATA DEPARTMENT Provider, Generic External Data 06/04/2024 Refill [facility] [address] [place] [address] Bc Hunter MD 06/01/2024 Orders Only GENERIC EXTERNAL DATA DEPARTMENT Provider, Generic External Data 05/21/2024 Orders Only [facility] [address] [place] [address] Bc Hunter MD Onychomycosis (Primary Dx) 05/21/2024 Refill [facility] [address] [place] [address] Bc Hunter MD 05/19/2024 Orders Only GENERIC EXTERNAL DATA DEPARTMENT Provider, Generic External Data 05/12/2024 Orders Only GENERIC EXTERNAL DATA DEPARTMENT Provider, Generic External Data 05/06/2024 Refill [facility] [address] [place] [address] Bc Hunter MD Mixed hyperlipidemia 05/01/2024 Orders Only GENERIC EXTERNAL DATA DEPARTMENT Provider, Generic External Data 04/27/2024 Telephone [facility] [address] [place] [address] Bc Hunter MD Lung screening 04/26/2024 11:15 AM EST Office Visit [facility] [address] [place] [address] Bc Hunter MD Acquired hypothyroidism (Primary Dx); [...] Mass Index 25.83 07/03/2024 11:28 AM EDT Plan of Treatment Upcoming Encounters Date Type Department Care Team (Late st Contact Info) Description 10/02/2024 11:15 AM EDT Office Visit [facility] [address] [place], [place] [phone] Bc Hunter MD [address] [place], [place] [phone] Health Maintenance Due Date Last Done Comments CT Colonography 1950 Colonoscopy 1950 Colorectal Cancer Screening 1950 FIT DNA/Cologuard 1950 FIT 1950 FOBT 1950 Sigmoidoscopy 1950 RSV Patients and Patients Aged 60 years or older (1 - Risk 60-74 years 1-dose series) 2012 Zoster Vaccines (2 of 2) 06/27/2021 05/02/2021 COVID-19 Vaccine ( - season) 2023 01/09/2021, 05/16/2020, 04/25/2020 Influenza Vaccine (#1) 2023 2, 12/11/2020, 03/17/2019, Additional history exists Pneumococcal Vaccine: 50+ Years (3 of 3 - PCV20 or PCV21) 03/17/2024 03/17/2019, 11/22/2014, 06/17/2000 SDOH Screening 07/18/2024 07/19/2023 Depression Screening 09/29/2024 09/30/2023, 09/30/19 24 Alcohol/Substance Use Screening 04/26/2025 04/26/2024 Tobacco Screening 07/03/2025 07/03/2024 Lipid Panel 05/06/2028 05/06/2023, 07/10/2022 DTaP/Tdap/Td Vaccines [...] [facility] Routine 07/05/2024 11:37 AM EDT PROTHROMBIN TIME WHOLE BLD POC Routine 06/29/2024 [...] COAG CLINIC Routine 04/10/2024 11:12 AM EST LIPID PANEL, STANDARD Routine 05/06/2023 11:48 AM EST Hyperlipemia, mixed HEPATITIS C AB W/REFL TO HCV RNA, QN, PCR Routine 07/10/2022 11:31 AM EDT S/P aortic valve replacement Pre-op evaluation from Last 3 Months or Most Recently Relevant to Health Maintenance Results * (ABNORMAL) PROTHROMBIN TIME WHOLE BLD POC (07/05/2024 11:37 AM EDT) Only the most recent of10 resultswithin the time period is included. Protime 35.6(H) 11.1 - 13.5 sec [facility] 07/05/2024 11:3 7 AM EDT 07/05/2024 11:39 AM EDT Generic External Data Provider LAB BLOOD ORDERAB LES Final Result Performing Organization Address [facility] Co de Phone Number [facility] [address] [place] [address] [phone] * (ABNORMAL) ~PT, ~INR - ANTI COAG CLINIC (07/05/2024 11:37 AM EDT) Only the most recent of10 resultswithin the time period is included. Prothrombin Time INR 3.0(H) 0.9 - 1.1 [facility] Comment:METER #: [id number] TERNATIONAL NORMALIZED RATIO (INR) REFERENCE RANGES Reference [...] 7 AM EDT 07/05/2024 11:39 AM EDT Generic External Data Provider LAB BLOOD ORDERAB LES Final Result Performing Organization Address [facility] Co de Phone Number [facility] [address] [place] [phone] * XR Chest 2 Views (06/27/2024 12:23 PM EDT) Anatomical Region Laterality Modality Chest Radiographic Kelly ging 06/27/2024 12:2 3 PM EDT Narrative 06/27/2024 1:08 PM EDT ? [facility] ?[address] [facility] . ? [place] [address] ?XRay Report ? Signed ? Patient: Chris Zaragoza ?MR#: [id number] ? : 1950 ?Acct:[id number] ? Age/Sex: 74 / M ?ADM Date: 06/27/24 ? Loc: HO.HMGCX ? Attending Dr: Yasmeen Guerra PA-C ? Ordering Physician: Yasmeen Guerra PA-C ?? Date of Service: 06/27/24 ?? Procedure(s): XR chest 2V ?? Accession Number(s): [id number] ? cc: Bc Hunter MD; Yasmeen Guerra [...] DD/ 1223 ? TD/TT: 06/27/24 1223 ? All Terrain Vehicle Racer: ? Procedure Note Donotuseinterpreter, Image - 06/27/2024 [facility] [address] [place], [place] [address] XRay Report Signed Patient: Amos Zaragoza#: [id number] : 3Acct:[id number] Age/Sex: 74 / MADM Date: 06/27/24 Loc: HO.HMGCX Attending Dr: Yasmeen Guerra PA-C Ordering Physician: Yasmeen Guerra PA-C Date of Service: 06/27/24 Procedure(s): XR chest 2V Accession Number(s): [id number] cc: Bc Hunter MD; Yasmeen Guerra PA-C [...] 06/27/24 1304 DD/ 1223 TD/TT: 06/27/24 1223 All Terrain Vehicle Racer: us [facility] External Provider IMG XR PROCEDURES Final Result * PET/CT FDG Skull Base To Mid-Thigh (06/07/2024 3:59 PM EDT) Anatomical Region Laterality Modality Computed Tomogra phy Historical Provider IMG CT PROCEDURES Final R esult * Lipid Panel, Standard (05/06/2023 11:48 AM EST) Triglycerides 61 <150 mg/dL [facility] Comment:Desirable Triglyceri de: less than 150 mg/dLBorderline High Triglyceride 150-199 mg/dLHigh Triglyceride: 200-499 mg/dLVery High Triglyceride: greater than or equal to 5OO mg/dL Cholesterol 166 <200 mg/dL [facility] Comment:Desirable Cholestero l: less than 200 mg/dLBorderline High Cholesterol: 200-239 mg/dLHigh Cholesterol: greater than 239 mg/dL LDL Cholesterol Calculated 94 <100 mg/dL [facility] Comment:Desirable LDL: less than 100 mg/dLNear Optimal/Above Optimal LDL: 110- 129 mg/dLBorderline High LDL: 130-159 mg/dLHigh LDL: 160-189 mg/dLVery High LDL: greater than or equal to 190 mg/dL HDL Cholesterol 60 >40 mg/dL [facility] Comment:Desirable HDL: great er than 40 mg/dL Note: This HDL assay may give artificially low results in patients with liver disease. Blood Venous blood specimen / Unknown 05/06/2023 11:48 AM EST 05/06/2023 2:09 PM EST Bc Rascon MD LAB BLOOD ORDERABL ES Final Result [facility] [address] [place] [phone] * Hepatitis C Antibody with Reflex to HCV, RNA, Quantitative, Real-Time PCR (07/10/2022 11:31 AM EDT) Hepatitis C Antibody NON-REACT DEZ NON-REACT DEZ [facility] Index 0.09 <1.00 [facility] Comment: HCV antibody was non-reactive. There is no laboratory evidence of HCV infection. In most cases, no further action is required. However, if recent HCV exposure is suspected, a test for HCV RNA (test code 47128) is suggested. For additional information please refer to http://education.[employer]/faq/LVC38p3 (This link is being provided for informational/ educational purposes only.) Blood Venous blood specimen / Unknown 07/10/2022 11:31 AM EDT 07/10/2022 11:32 AM EDT Narrative [facility] - 07/11/2022 5:06 AM EDT FASTING:NO FASTING: NO Bc Rascon MD LAB BLOOD ORDERABL ES Final Result [facility] [address], [place] [phone] unrival [place] [employer] [address] [place] [phone] from Last 3 Months or Most Recently Relevant to Health Maintenance Insurance [place] [address] [place] [id number] [facility] Care Teams Ripening Room Hand Relationship Specialty Start Date End Date YatesBc Ledezma MD [address] [place] [phone] PCP - General Internal Medicine 01/03/19
== END 2024-07-05 13:01 | disposition home or self-care (01) ==
LOC: HO.ACS 11:34
PROVIDERS: PCP Internal Medicine; Visit Provider Internal Medicine Medical Oncology
DX: Z79.01 Long term (current) use of anticoagulants (principal)

== ENCOUNTER → 2024-07-05 11:34 | Outpatient (BNVA) | payer MEDICARE, MEDICAID, SELFPAY | PROVIDERS: PCP Internal Medicine; Visit Provider Internal Medicine Medical Oncology | DX: Z95.2 Presence of prosthetic heart valve (principal); Z51.81 Encounter for therapeutic drug level monitoring; Z79.01 Long term (current) use of anticoagulants | CPT/HCPCS: 85610; 99211 ==

== ENCOUNTER 2024-07-20 10:50 | Outpatient (AMB) | payer MEDICARE, MEDICAID, SELFPAY ==
[2024-07-20 11:11] LABS: Prothrombin Time Whole Bld POC 20.2 sec (11.1-13.5); ~PT, ~INR - Anti Coag Clinic 1.7 (0.9-1.1)
--- NOTE | 2024-07-20 11:22 | MHC.OFFVISCO ---
Intake Intake Visit Reasons: Anticoagulation Allergies No Known Allergies Allergy (Mild, Verified 07/20/24 10:57) NOT APPLICABLE Medication List - Last Reconciled 07/20/24 by Raissa Hull RN albuterol sulfate 90 mcg/actuation (Ventolin HFA) 1 puff inhalation RQ4H PRN amantadine HCl 100 mg PO BID atorvastatin 40 mg PO BEDTIME carbamide peroxide (Debrox) 5 DROPS EACH EAR EVERY 2 WEEKS cholecalciferol (vitamin D3) (Vitamin D3) 25 mcg PO QAM dicyclomine 20 mg PO BID divalproex ER 1,000 mg PO BEDTIME ferrous sulfate 324 mg PO DAILY [FLUCINOLONE TOPICAL DAILY ] levothyroxine 25 mcg PO DAILY@0600 loratadine 10 mg PO DAILY magnesium oxide 400 mg PO BIDPC multivitamin with folic acid 400 mcg (Daily-Stanley (with folic acid)) 1 tab PO DAILY pantoprazole 40 mg PO BID revefenacin (Yupelri) 175 mcg (3 mL) inhalation DAILY 30 days risperidone (Risperdal) 4 mg PO BID tamsulosin 0.4 mg PO BEDTIME valproic acid 1000mg orally daily; warfarin See Protocol 2 mg orally 4MG DAILY OR DIRECTED; 4MG DAILY OR DIRECTED Nursing Note Pt came with Krystin today for appt, pt pleasant - slightly agitated talking about the past events, sounds to have personal financial and behavioral related situation at place of residence - pt is safe and being taken care of. INR: 1.7 OUT OF therapeutic range- missed a dose last week anticipating lung bx lung bx cancled- it was decided by mds to monitor pt and have another scan in the future, no treatment at this time, pt does cont to smoke daily, he is working at the [employer] a few hours / week Medications and supplements reviewed No changes in health, diet, medications, or supplements, Denies any signs and symptoms of bleeding or bruising or clotting. Bleeding, bruising, clotting discussed Nutritional guidance given - eat a mix of fruits and vegetables that you enjoy to balance your INR Dose: 4mg today then resume 2mg sun wed/ 4mg x 4 days F/U INR: 07/24/24Wednesday Patient and health care specialist Krystin verbalizes understanding of instructions given Anti-Coag Initial Assessment Social Hx Patient Tobacco Use Status: Refuse Tobacco use screen alcohol intake: never Coding Level of Care Code Est Patient Level 1 Diagnoses Current use of anticoagulant therapy Z79.01 Results AMB INR Fingerstick AMB INR Fingerstick 1.7 Last Edit by Raissa Hull RN on 07/20/24 11:15 MANUAL ENTRY Assessment & Plan Assessment & Plan (1) Current use of anticoagulant therapy: Code(s): Z79.01 - residential (current) use of anticoagulants Category: Medical
--- OUTSIDE RECORDS SUMMARY | 2024-07-20 12:26 | XMS_ITS | Encounter Summary ---
Author Organization [employer] Address [address] [facility] 7 [place] [address] Care Team Providers Care Family Health Nurse Practitioner Name Role Phone Bc Hunter MD Primary Care Prov ider Reason for Visit * Reason Onset Date Comments Nurse Triage 2024 Encounter Details Date Type Department Care Team ([facility] st Contact Info) Description 2024 Telephone [facility] [address] [place] [address] Bc Hunter MD [address] [place], [place] [phone] Nurse Triage Social History Tobacco Use Types [...] called pt to triage, spoke to group exercise class instructor, ANTONIO. pt was seen on 06/14 by [facility] pulmonology on 06/14 and due to some distress was sent to the ER for evaluation. pt diagnosed with Pneumonia and put onantibiotics x5 days. worker states pt eating and drinking, not having any fevers or severe/sustained sob, or other associated symptoms. 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 to report ED visit on : Date: 06/14 Hospital: [facility] Seen for: pneumonia Symptomatic Yes *if yes message should go to Triage Patient advised will forward to team nurse for follow up [phone] pt documented in this encounter Plan of Treatment Upcoming Encounters Date Type Department Care Team (Late st Contact Info) Description 10/02/2024 11:15 AM EDT Office Visit [facility] [address] [place] [address] Bc Hunter MD [address] [place] [address] documented as of this encounter Visit Diagnoses Not on filedocumented in this encounter Additional Health Concerns Assessment Noted Time PHQ-9 Depression Total Score: 0 09/30/19 24 11:02 AM EDT documented as of this encounter Care Teams Family Health Nurse Practitioner Relationship Specialty Start Date End Date Bc Hunter MD [address] [place] [address] PCP - General Internal Medicine 01/03/19 documented as of this encounter
--- OUTSIDE RECORDS SUMMARY | 2024-07-20 12:26 | XMS_ITS | Clinical Summary ---
Author Organization [employer] Address [address] [place] [address] 7t [place] [address] Care Team Providers Care Elevator Operator Name Role Phone Bc Hunter MD [...] DAY WITH FOOD 90 tablet 3 Active albuterol 108 (90 Base) MCG/ACT inhaler [...] NEEDED FOR MODERATE PAIN. 60 tablet 3 Active ferrous sulfate 325 (65 Fe) MG [...] THE EVENING 180 tablet 1 025 Active dicyclomine (Bentyl) 20 MG tabletIndications :Irritable bowel syndrome with diarrhea TAKE 1 TABLET BY MOUTH BEFORE BREAKFAST AND BEFORE EVENING MEAL. 180 tablet 1 025 Active dicyclomine (Bentyl) 20 MG tabletIndications :Irritable bowel syndrome with diarrhea TAKE 1 TABLET BY MOUTH BEFORE BREAKFAST AND BEFORE EVENING MEAL. 180 tablet 1 024 2024 Discontinued pantoprazole (ProtoNix) 40 MG EC tabletIndications :Gastroesophageal reflux disease without esophagitis TAKE 1 TABLET BY MOUTH TWICE A DAY IN THE MORNING AND IN THE EVENING 180 tablet 1 024 2024 Discontinued Active Problems Problem Noted Date Diagnosed Date Smoking 06/19/2024 Nodule of left lung 04/26/2024 Assessment & Plan (04/26/2024 11:54 AM EST): Will order a follow up LDCT scan, instructional supervisor was told to contact pulmonology office Seborrheic dermatitis of scalp 01/26/2023 Assessment & Plan (07/20/2023 8:52 PM EDT): Followed by [facility] Derm clinic Refill of topical ketoconazole [...] valve replacement 04/28/2022 Overview (07/20/2023): Followed by [facility] Coumadin Clinic Assessment & Plan (07/20/2023 8:46 PM EDT): Cardiology consult scheduled 07/20/23 No reported hx of bleeding, no reported chest pain/shortness of breath Discussed with PCP and [facility] Coumadin Clinic (Lori FLETCHER). Plan to bridge pt from Eliquis to Coumadin. May DC Eliquis once Coumadin therapeutic Coumadin dosinmg on Wednesday and Wednesday 4mg all other days of the week Plan: [facility] Coagulation clinic to reach out to retirement [...] Encounters Date Type Department Care Team Description 07/20/2024 Orders Only GENERIC EXTERNAL DATA DEPARTMENT Provider, Generic External Data 07/18/2024 Refill [facility] & [facility]EDS [address] [place] [address] Bc Hunter MD Irritable bowel syndrome with diarrhea 07/06/2024 Telephone [facility] [address] [place] [address] Bc Hunter MD Medication Question 07/05/[address] [address] Bc Hunter MD Call Back Request (/) 07/05/[address] [address] Bc Hunter MD Call Back Request 07/05/2024 Orders Only GENERIC EXTERNAL DATA DEPARTMENT Provider, Generic External Data 07/05/[address] [address] Bc Hunter MD Lab Orders 07/05/2024 Refill [facility] [address] [place] [address] Bc Hunter MD Gastroesophageal reflux disease without esophagitis 07/03/2024 11:15 AM EDT Office Visit [facility] [address] [place] [address] Zafar Richard MD Multifocal pneumonia (Primary Dx); Acquired hypothyroidism 07/03/2024 Travel 06/29/2024 Telephone [facility] [address] [place] [address] 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, implementation project manager Question 06/29/2024 Orders Only GENERIC EXTERNAL DATA DEPARTMENT Provider, Generic External Data 06/28/2024 Telephone [facility] [address] [place] [address] Bc Hunter MD Nurse Triage 06/27/2024 Orders Only [facility] External Provider, [facility] 06/23/2024 Telephone [facility] [address] [place] [address] Bc Hunter MD Call Back Request 06/19/2024 1:00 PM EDT Office Visit [facility] [address] [place] [address] Zafar Richard MD Mild chronic obstructive pulmonary disease (CMS/HCC) (Primary Dx); Solitary lung nodule; Dyspnea on exertion; Smoking 06/19/2024 Travel 2024 Telephone [facility] [address] [place] [address] Bc Hunter MD Nurse Triage 06/13/2024 Orders Only GENERIC EXTERNAL DATA DEPARTMENT Provider, Generic External Data 06/04/2024 Refill [facility] [address] [place] [address] Bc Hunter MD 06/01/2024 Orders Only GENERIC EXTERNAL DATA DEPARTMENT Provider, Generic External Data 05/21/2024 Orders Only [facility] [address] [place] [address] Bc Hunter MD Onychomycosis (Primary Dx) 05/21/2024 Refill [facility] [address] [place] [address] Bc Hunter MD 05/19/2024 Orders Only GENERIC EXTERNAL DATA DEPARTMENT Provider, Generic External Data 05/12/2024 Orders Only GENERIC EXTERNAL DATA DEPARTMENT Provider, Generic External Data 05/06/2024 Refill [facility] [address] [place] [address] Bc Hunter MD Mixed hyperlipidemia 05/01/2024 Orders Only GENERIC EXTERNAL DATA DEPARTMENT Provider, Generic External Data 04/27/2024 Telephone [facility] [address] [place] [address] Bc Hunter MD Lung screening 04/26/2024 11:15 AM EST Office Visit [facility] [address] [place] [address] Bc Hunter MD Acquired hypothyroidism (Primary Dx); [...] [facility] [address] [place] [address] Bc Hunter MD [address] [place] [address] Health Maintenance Due Date Last Done Comments [...] Comments PROTHROMBIN TIME WHOLE BLD POC Routine 07/20/2024 11:09 AM EDT ~PT, ~INR - ANTI COAG CLINIC Routine 07/20/2024 11:09 AM EDT PROTHROMBIN TIME WHOLE BLD POC Routine 07/05/2024 [...] COAG CLINIC Routine 04/24/2024 11:31 AM EST LIPID PANEL, STANDARD Routine 05/06/2023 11:48 AM EST Hyperlipemia, mixed HEPATITIS C AB W/REFL TO HCV RNA, QN, PCR Routine 07/10/2022 11:31 AM EDT S/P aortic valve replacement Pre-op evaluation from Last 3 Months or Most Recently Relevant to Health Maintenance Results * (ABNORMAL) PROTHROMBIN TIME WHOLE BLD POC (07/20/2024 11:09 AM EDT) Only the most recent of9 resultswithin the time period is included. Protime 20.2(H) 11.1 - 13.5 sec [facility] 07/20/2024 11:0 9 AM EDT 07/20/2024 11:11 AM EDT us Generic External Data Provider LAB BLOOD ORDERAB LES Final Result [facility] [address] [place] [phone] * (ABNORMAL) ~PT, ~INR - ANTI COAG CLINIC (07/20/2024 11:09 AM EDT) Only the most recent of9 resultswithin the time period is included. Prothrombin Time INR 1.7(H) 0.9 - 1.1 [facility] Comment:METER #: [id number] TERNATIONAL NORMALIZED RATIO (INR) REFERENCE RANGES Reference RangeFor patients not on anticoagulant therapy: 0.9 - 1.1INR ranges for oral anticoagulanttherapy:For prevention and treatment of venous thrombosis and pulmonary embolism: 2.0 - 3.0For acute myocardial infarction with aspirin therapy: 2.0 - 3.0For acute myocardial infarction without aspirin therapy: 3.0 - 4.0For patients with mechanical prosthetic heart valves: 2.5 - 3.5 07/20/2024 11:0 9 AM EDT 07/20/2024 11:11 AM EDT us Generic External Data Provider LAB BLOOD ORDERAB LES Final Result [facility] [address] [place] [address] [phone] * XR Chest 2 Views (06/27/2024 12:23 PM EDT) Anatomical Region Laterality Modality Chest Radiographic Kelly ging 06/27/2024 12:2 3 PM EDT Narrative 06/27/2024 1:08 PM EDT ? [facility] ?[address] ? [place] [address] ?XRay Report ? Signed ? Patient: Chris Zaragoza ?MR#: [id number] ? : 1950 ?Acct:[id number] ? Age/Sex: 74 / M ?ADM Date: 06/27/24 ? Loc: HO.HMGCX ? Attending Dr: Yasmeen Guerra PA-C ? Ordering Physician: Yasmeen Guerra PA-C ?? Date of Service: 06/27/24 ?? Procedure(s): XR chest 2V ?? Accession Number(s): [id number] ? cc: Bc Hunter MD; Yasmeen Guerra [...] DD/ 1223 ? TD/TT: 06/27/24 1223 ? Triage Specialist: ? Procedure Note Donotmaurice, Jb - 06/27/2024 [facility] [address] [place] [address] [place] [address] XRay Report Signed Patient: Amos Zaragoza#: [id number] : 3Acct:[id number] Age/Sex: 74 / MADM Date: 06/27/24 Loc: HO.HMGCX Attending Dr: Yasmeen Guerra PA-C Ordering Physician: Yasmeen Guerra PA-C Date of Service: 06/27/24 Procedure(s): XR chest 2V Accession Number(s): [id number] cc: Bc Hunter MD; Yasmeen Guerra PA-C [...] 06/27/24 1304 DD/ 1223 TD/TT: 06/27/24 1223 Triage Specialist: [facility] External Provider IMG XR PROCEDURES Final Result * PET/CT FDG Skull Base To Mid-Thigh (06/07/2024 3:59 PM EDT) Anatomical Region Laterality Modality Computed Tomogra phy Historical Provider IMG CT PROCEDURES Final R esult * Lipid Panel, Standard (05/06/2023 11:48 AM EST) Triglycerides 61 <150 mg/dL [facility] Comment:Desirable Triglyceri de: less than 150 mg/dLBorderline High Triglyceride 150-199 mg/dLHigh Triglyceride: 200-499 mg/dLVery High Triglyceride: greater than or equal to 5OO mg/dL Cholesterol 166 <200 mg/dL [facility] Comment:Desirable Cholestero l: less than 200 mg/dLBorderline High Cholesterol: 200-239 mg/dLHigh Cholesterol: greater than 239 mg/dL LDL Cholesterol Calculated 94 <100 mg/dL [facility] Comment:Desirable LDL: less than 100 mg/dLNear Optimal/Above Optimal LDL: 110- 129 mg/dLBorderline High LDL: 130-159 mg/dLHigh LDL: 160-189 mg/dLVery High LDL: greater than or equal to 190 mg/dL HDL Cholesterol 60 >40 mg/dL [facility] Comment:Desirable HDL: great er than 40 mg/dL Note: This HDL assay may give artificially low results in patients with liver disease. Blood Venous blood specimen / Unknown 05/06/2023 11:48 AM EST 05/06/2023 2:09 PM EST Bc Rascon MD LAB BLOOD ORDERABL ES Final Result [facility] [address] [place] [phone] [phone] * Hepatitis C Antibody with Reflex to HCV, RNA, Quantitative, Real-Time PCR (07/10/2022 11:31 AM EDT) Hepatitis C Antibody NON-REACT DEZ NON-REACT DEZ [employer] [place] [employer] Index 0.09 <1.00 [employer] [place] [employer] Comment: HCV antibody was non-reactive. There is no laboratory evidence of HCV infection. In most cases, no further action is required. However, if recent HCV exposure is suspected, a test for HCV RNA (test code 77255) is suggested. For additional information please refer to http://education.InVivioLink/faq/KUJ31i2 (This link is being provided for informational/ educational purposes only.) Blood Venous blood specimen / Unknown 07/10/2022 11:31 AM EDT 07/10/2022 11:32 AM EDT Narrative [facility] - 07/11/2022 5:06 AM EDT FASTING:NO FASTING: NO Bc Rascon MD LAB BLOOD ORDERABL ES Final Result Performing Organization Address City/[facility] Co de Phone Number [facility] [address], [place] [address] [employer] [place] [employer] [address] [place] [address] from Last 3 Months or Most Recently Relevant to Health Maintenance Insurance MEDICARE [facility] STANDARD Care Teams Elevator Operator Relationship Specialty Start Date End Date Bc Hunter MD [address] [place] [address] PCP - General Internal Medicine 01/03/19
--- OUTSIDE RECORDS SUMMARY | 2024-07-20 12:26 | XMS_ITS | Encounter Summary ---
Author Organization [employer] Address [address] 7[address] [place] [address] Care Team Providers Care Supervisor Blasting Name Role Phone Bc Hunter MD Primary Care Prov ider Reason for Visit * Reason Comments Med Change Request Encounter Details Date Type Department Care Team ([facility] Contact Info) Description 07/19/2023 Refill [facility] & PEDS [address] [place] [address] Oralia Mazariegos FNP [address] [place] [address] Social History Tobacco Use Types Packs/Day Years [...] [facility] [address] [place] [address] Bc Hunter MD [address] [place] [address] documented as of this encounter Visit Diagnoses Not on filedocumented in this encounter Additional Health Concerns Assessment Noted Time PHQ-9 Depression Total Score: 0 07/11/19 23 11:26 AM EDT documented as of this encounter Care Teams Supervisor Blasting Relationship Specialty Start Date End Date Bc Hunter MD [address] [place] [address] PCP - General Internal Medicine 01/03/19 documented as of this encounter
--- OUTSIDE RECORDS SUMMARY | 2024-07-20 12:26 | XMS_ITS | Clinical Summary ---
Author Organization [facility] Address [address] [place] [address] Phone Care Team Providers Care After School Driver Name Role Phone Bc Hunter Primary Care Provide r Encounters Date Type Department Care Team Description 06/07/2024 10:39 AM EDT - 06/07/2024 11:59 PM EDT Hospital Encounter [facility] PET Scan [address] [place] [address] Discharge Disposition: Home or Self Care from Last 3 Months Medical History Medical History Date Comments Heart valve replaced by other means 06/29/2011 DX:Heart valve replaced by other means Asthma 06/29/2011 DX:Asthma Tobacco abuse 06/29/2011 DX:Tobacco abuse Schizophrenia ([facility] V24, [facility] V28) 06/29/2011 DX:Schizophrenia ([facility]) Unspecified hypothyroidism 06/29/2011 DX:Un specified hypothyroidism Chronic [...] Signed Date: 06/13/2024 09:29 ET Workstation ID: [id number] Transcribed By: Self Edit Transcribed Date: 06/13/2024 [...] Signed Date: 06/13/2024 09:29 ET Workstation ID: [id number] Transcribed By: Self Edit Transcribed Date: 06/13/2024 08:22 ET Lenny Irving MD IM NM PROCEDURES Final Result from Last 3 Months Insurance MEDICARE MEDICAID - [place] Care Teams After School Driver Relationship Specialty Start Date End Date Bc Hunter [address] [place] [phone] PCP - General Internal Medicine 04/13/24
--- OUTSIDE RECORDS SUMMARY | 2024-07-20 12:26 | XMS_ITS | Encounter Summary ---
Author Organization [employer] Address [address] [facility] 7 [place] [address] Care Team Providers Care Traction Power Engineer Name Role Phone Bc Hunter MD Primary Care Prov ider Reason for Visit * Reason Onset Date Comments Med Refill 05/15/2022 Encounter Details Date Type Department Care Team ([facility] st Contact Info) Description 05/15/2022 Telephone [facility] MED & PEDS [address] [place] [address] Bc Hunter MD [address] [place] [address] Med Refill Social History Tobacco Use Types [...] a max daily dose. Call placed to [facility] [place]. Per Della, [...] 11:54 AM EST Tc from Amy with [facility] requesting some kinds of specific directions for warfarin (Coumadin) 2 MG tablet If any question please contact amy at [phone] documented in this encounter Plan of Treatment Upcoming Encounters Date Type Department Care Team (Late st Contact Info) Description 10/02/2024 11:15 AM EDT Office Visit [facility] MED [facility] PED[facility] [address] [place] [address] Bc Hunter MD [address] [place] [address] documented as of this encounter Visit Diagnoses Not on filedocumented in this encounter Care Teams Traction Power Engineer Relationship Specialty Start Date End Date Bc Hunter MD [address] [place] [address] PCP - General Internal Medicine 01/03/19 documented as of this encounter
--- OUTSIDE RECORDS SUMMARY | 2024-07-20 12:26 | XMS_ITS | Encounter Summary ---
Author Organization [employer] Address [address] [facility] 7 [place] [address] Care Team Providers Care Humanities Coordinator Name Role Phone Bc Hunter MD Primary Care Prov ider Reason for Visit * Reason Onset Date Comments Nurse Triage 05/26/2023 Encounter Details Date Type Department Care Team (Late st Contact Info) Description 05/26/2023 Telephone [facility] [address] [place] [address] Bc Hunter MD [address] [place], [place] [phone] Nurse Triage Social History Tobacco Use Types [...] appetite is poor. Pt weight yesterday at can tender apt is 173lbs. Pt was said to be around 202lbs regularly. Pt clothes are fitting very loosely now. Pt also wanted to stop coumadin but, can tender instructed that wouldn't be good to do [...] acuity questions The caller accepted this outcome [phone] documented in this encounter Plan of Treatment Upcoming Encounters Date Type Department Care Team (Late st Contact Info) Description 10/02/2024 11:15 AM EDT Office Visit [facility] [address] [place] [address] Bc Hunter MD [address] [place] [address] documented as of this encounter Visit Diagnoses Not on filedocumented in this encounter Additional Health Concerns Assessment Noted Time PHQ-9 Depression Total Score: 0 07/11/19 23 11:26 AM EDT documented as of this encounter Care Teams Humanities Coordinator Relationship Specialty Start Date End Date Bc Hunter MD [address] [place] [address] PCP - General Internal Medicine 01/03/19 documented as of this encounter
--- OUTSIDE RECORDS SUMMARY | 2024-07-20 12:26 | XMS_ITS | Encounter Summary ---
Author Organization [employer] Address [address] [facility] 7 [place] [address] Care Team Providers Care Inside Steward/Stewardess Name Role Phone Bc Hunter MD Primary Care Prov ider Reason for Visit * Reason Onset Date Comments Med Refill 05/12/2022 Encounter Details Date Type Department Care Team (Late st Contact Info) Description 05/12/2022 Telephone [facility] [address] [place] [address] Bc Hunter MD [address] [place], [place] [phone] Med Refill Social History Tobacco Use Types [...] 11:15 AM EDT Office Visit [facility] MED & PEDS [address] [place] [address] Bc Hunter MD [address] [place] [address] documented as of this encounter Visit Diagnoses Not on filedocumented in this encounter Care Teams Inside Steward/Stewardess Relationship Specialty Start Date End Date Bc Hunter MD [address] [place] [address] PCP - General Internal Medicine 01/03/19 documented as of this encounter
--- OUTSIDE RECORDS SUMMARY | 2024-07-20 12:26 | XMS_ITS | Encounter Summary ---
Author Organization [employer] Address [address] [facility] 7 [place] [address] Care Team Providers Care Sailboat Captain Name Role Phone Bc Hunter MD Primary Care Prov ider Reason for Visit * Reason Comments Med Refill Encounter Details Date Type Department Care Team ([facility] Contact Info) Description 05/18/2023 Refill [facility] MED & PEDS [address] [place] [address] Bc Hunter MD [address] [place] [address] Social History Tobacco Use Types Packs/Day Years [...] Description 10/02/2024 11:15 AM EDT Office Visit [facility] MED & PEDS [address] [place] [address] Bc Hunter MD [address] [place] [address] documented as of this encounter Visit Diagnoses Not on filedocumented in this encounter Additional Health Concerns Assessment Noted Time PHQ-9 Depression Total Score: 0 07/11/19 23 11:26 AM EDT documented as of this encounter Care Teams Sailboat Captain Relationship Specialty Start Date End Date Bc Hunter MD [address] [place] [address] PCP - General Internal Medicine 01/03/19 documented as of this encounter
--- OUTSIDE RECORDS SUMMARY | 2024-07-20 12:26 | XMS_ITS | Encounter Summary ---
Author Organization [employer] Address [address] [facility] 7 [place] [address] Care Team Providers Care Deposition Reporter Name Role Phone Bc Hunter MD Primary Care Prov ider Reason for Visit * Reason Onset Date Comments Referral 12/06/2023 Encounter Details Date Type Department Care Team ([facility] st Contact Info) Description 12/06/2023 Telephone [facility] [address] [place] [address] Bc Hunter MD [address] [place], [place] [phone] Referral Social History Tobacco Use Types Packs/Day [...] 12/06/2023 9:45 AM EDT Tc from patients shelter calling to report the provider for podiatry has and would need to be referred to another location would like to be seen by Sarkis in the [place] location ifpossible documented in this encounter Plan of Treatment Upcoming Encounters Date Type Department Care Team (Late st Contact Info) Description 10/02/2024 11:15 AM EDT Office Visit [facility] MED & PEDS [address] [place] [address] Bc Hunter MD [address] [place] [address] documented as of this encounter Visit Diagnoses Not on filedocumented in this encounter Additional Health Concerns Assessment Noted Time PHQ-9 Depression Total Score: 0 09/30/19 24 11:02 AM EDT documented as of this encounter Care Teams Deposition Reporter Relationship Specialty Start Date End Date Bc Hunter MD [address] [place] [address] PCP - General Internal Medicine 01/03/19 documented as of this encounter
--- OUTSIDE RECORDS SUMMARY | 2024-07-20 12:26 | XMS_ITS | Encounter Summary ---
Author Organization [employer] Address [address] [facility] 7 [place] [address] Care Team Providers Care Guide Delegate Name Role Phone Bc Hunter MD Primary Care Prov ider Encounter Details Date Type Department Care Team (Late st Contact Info) Description 07/16/2022 Telephone [facility] MED & PEDS [address] [place], [place] [phone] Bc Hunter MD [address] [place] [address] Social History Tobacco Use Types Packs/Day Years [...] swelling. Right side. Please contact Lori @ [phone] if additional labs are requested by PCP [...] swelling. Right side. Please contact Lori @ [phone] if additional labs are requested by PCP [...] Description 10/02/2024 11:15 AM EDT Office Visit [facility] MED & PEDS [address] [place] [address] Bc Hunter MD [address] [place] [address] documented as of this encounter Visit Diagnoses Not on filedocumented in this encounter Additional Health Concerns Assessment Noted Time PHQ-9 Depression Total Score: 0 07/11/19 23 11:26 AM EDT documented as of this encounter Care Teams Guide Delegate Relationship Specialty Start Date End Date Bc Hunter MD [address] [place] [address] PCP - General Internal Medicine 01/03/19 documented as of this encounter
--- OUTSIDE RECORDS SUMMARY | 2024-07-20 12:26 | XMS_ITS | Encounter Summary ---
Author Organization [facility] Address [address] [place] [address] Phone Care Team Providers Care Coconut Boiler Name Role Phone Bc Yates Primary Care Provider [phone] Reason for Visit * Reason Comments Med Refill Encounter Details Date Type Department Care Team (Late st Contact Info) Description 01/13/2022 Refill [facility] [address] [place] [address] Trever Lopez MD [address] [facility] [place] [address] Social History Tobacco Use Types [...] Visit [facility] [address] [place] [address] Trever Lopez MD [address] [facility] [place] [address] documented as of this encounter Visit Diagnoses Not on filedocumented in this encounter Care Teams Coconut Boiler Relationship Specialty Start Date End Date Bc Yates PCP - General Internal Medicine 10/05/22 documented as of this encounter
--- OUTSIDE RECORDS SUMMARY | 2024-07-20 12:26 | XMS_ITS | Encounter Summary ---
Author Organization [employer] Address [address] [place] [address] 7 [place] [address] Care Team Providers Care Construction Manager Name Role Phone Bc Hunter MD Primary Care Prov ider Reason for Visit * Reason Onset Date Comments Med Refill 09/21/2022 Encounter Details Date Type Department Care Team ([facility] st Contact Info) Description 09/21/2022 Telephone [facility] MED & PEDS [address] [place] [address] Bc Hunter MD [address] [place] [address] Med Refill Social History Tobacco Use Types [...] Warfarin 1 mg tablet [id number] [place], [place] - [address] [facility] Please sent to documented in this encounter Plan of Treatment Upcoming Encounters Date Type Department Care Team (Late st Contact Info) Description 10/02/2024 11:15 AM EDT Office Visit [facility] MED & PEDS [address] [place] [address] Bc Hunter MD [address] [place] [address] documented as of this encounter Visit Diagnoses Diagnosis History of Coumadin therapy- Primary S/P aortic valve replacement Heart valve replaced by other means documented in this encounter Additional Health Concerns Assessment Noted Time PHQ-9 Depression Total Score: 0 07/11/19 23 11:26 AM EDT documented as of this encounter Care Teams Construction Manager Relationship Specialty Start Date End Date Bc Hunter MD [address] [place] [address] PCP - General Internal Medicine 01/03/19 documented as of this encounter
--- OUTSIDE RECORDS SUMMARY | 2024-07-20 12:26 | XMS_ITS | Clinical Summary ---
Author Organization [facility], Address [address] [place] [address] [place] [address] Phone Care Team Providers Care Medical Specialist Name Role Phone YatesBc Primary Care Provider Allergies No known active allergies Medications D3-50 1.25 MG (34547 UT) capsule TAKE 1 CAPSULE BY MOUTH [...] Telephone [facility], [address] [place] [address] Sasha Bhatt from Last 3 [...] Visit [facility], [address] [place] [phone] Trever Lopez MD [address] [place] [phone] Health Maintenance Due Date Last Done Comments [...] topic Insurance Medicare Medicaid [place] Care Teams Medical Specialist Relationship Specialty Start Date End Date Bc Yates: [phone] PCP - General Internal Medicine 10/05/22
--- OUTSIDE RECORDS SUMMARY | 2024-07-20 12:26 | XMS_ITS | Encounter Summary ---
Author Organization [employer] [facility] Address [address] [place] [address] 7 [place] [address] Care Team Providers Care Motion Picture Photographer Name Role Phone Bc Hunter MD Primary Care Prov ider Encounter Details Date Type Department Care Team (Late Contact Info) Description 05/18/2022 Orders Only [facility] MED & PEDS [address] [place], [place] [phone] Bc Hunter MD [address] [place], [place] [phone] S/P aortic valve replacement Social History Tobacco [...] Description 10/02/2024 11:15 AM EDT Office Visit [facility] MED & PEDS [address] [place], [place] [phone] Bc Hunter MD [address] [place], [place] [phone] documented as of this encounter Visit Diagnoses Diagnosis S/P aortic valve replacement Heart valve replaced by other means documented in this encounter Care Teams Motion Picture Photographer Relationship Specialty Start Date End Date Bc Hunter MD [address] [place] [address] PCP - General Internal Medicine 01/03/19 documented as of this encounter
--- OUTSIDE RECORDS SUMMARY | 2024-07-20 12:26 | XMS_ITS | Encounter Summary ---
Author Organization [employer] Address [address] 7[address] [place] [address] Care Team Providers Care Mold Designer Name Role Phone Bc Hunter MD Primary Care Prov ider Encounter Details Date Type Department Care Team (Late st Contact Info) Description 09/20/2023 Orders Only [facility] CHC MED & PEDS [address] [place], [place] [phone] Bc Hunter MD [address] [place] [address] Social History Tobacco Use Types Packs/Day Years [...] 11:15 AM EDT Office Visit [facility] MED & PEDS [address] [place] [address] Bc Hunter MD [address] [place] [address] documented as of this encounter Visit Diagnoses Not on filedocumented in this encounter Additional Health Concerns Assessment Noted Time PHQ-9 Depression Total Score: 0 07/11/19 23 11:26 AM EDT documented as of this encounter Care Teams Mold Designer Relationship Specialty Start Date End Date Bc Hunter MD [address] [place] [address] PCP - General Internal Medicine 01/03/19 documented as of this encounter
--- OUTSIDE RECORDS SUMMARY | 2024-07-20 12:26 | XMS_ITS | Encounter Summary ---
Author Organization [employer] [facility] Address [address] [place] [address] [place] [address] Care Team Providers Care Package Dyeing Machine Operator Name Role Phone Bc Hunter MD Primary Care Prov ider Reason for Visit * Reason Comments Med Refill Encounter Details Date Type Department Care Team (Late Contact Info) Description 10/25/2022 Refill [facility] MED & PEDS [address] [place] [address] Bc Hunter MD [address] [place] [address] Social History Tobacco Use Types Packs/Day Years [...] Description 10/02/2024 11:15 AM EDT Office Visit [facility] MED & PEDS [address] [place] [address] Bc Hunter MD [address] [place] [address] documented as of this encounter Visit Diagnoses Not on filedocumented in this encounter Additional Health Concerns Assessment Noted Time PHQ-9 Depression Total Score: 0 07/11/19 23 11:26 AM EDT documented as of this encounter Care Teams Package Dyeing Machine Operator Relationship Specialty Start Date End Date Bc Hunter MD [address] [place] [address] PCP - General Internal Medicine 01/03/19 documented as of this encounter
--- OUTSIDE RECORDS SUMMARY | 2024-07-20 12:26 | XMS_ITS | Encounter Summary ---
Author Organization [facility] Address [address] [place] [address] Phone Care Team Providers Care Extra Gang Supervisor Name Role Phone Bc Yates Primary Care Provider [phone] Encounter Details Date Type Department Care Team (Late st Contact Info) Description 05/26/2021 Documentation Only [facility] [address] [place] [address] Trever Lopez MD [address] [place] [address] [place] [address] Social History Tobacco Use Types [...] Visit [facility] [address] [place] [address] Trever Lopez MD [address] [place] [address] [place] [address] documented as of this encounter Visit Diagnoses Not on filedocumented in this encounter Care Teams Extra Gang Supervisor Relationship Specialty Start Date End Date Bc Yates PCP - General Internal Medicine 10/05/22 documented as of this encounter
--- OUTSIDE RECORDS SUMMARY | 2024-07-20 12:26 | XMS_ITS | Encounter Summary ---
Author Organization [employer] Address [address] [facility] 7 [place] [address] Care Team Providers Care Student Ambassador Name Role Phone Bc Hunter MD Primary Care Prov ider Reason for Visit * Reason Onset Date Comments Call Back Request 07/05/2024 Encounter Details Date Type Department Care Team ([facility] st Contact Info) Description 07/05/2024 Telephone [facility] MEDICINE [address] [place] [address] Bc Hunter MD [address] [place], [place] [phone] Call Back Request Social History Tobacco Use [...] 12:18 PM EDT Tc from Kimberly with [facility] requesting a call back regarding the pt Lovenox. Contact Kimberly at [phone] documented in this encounter Plan of Treatment Upcoming Encounters Date Type Department Care Team (Late st Contact Info) Description 10/02/2024 11:15 AM EDT Office Visit [facility] MED & PEDS [address] [place] [address] Bc Hunter MD [address] [place] [address] documented as of this encounter Visit Diagnoses Not on filedocumented in this encounter Additional Health Concerns Assessment Noted Time PHQ-9 Depression Total Score: 0 09/30/19 24 11:02 AM EDT documented as of this encounter Care Teams Student Ambassador Relationship Specialty Start Date End Date Bc Hunter MD [address] [place] [address] PCP - General Internal Medicine 01/03/19 documented as of this encounter
--- OUTSIDE RECORDS SUMMARY | 2024-07-20 12:27 | XMS_ITS | Encounter Summary ---
Author Organization [employer] Address [address] [facility] 7 [place] [address] Care Team Providers Care Mold Setter Name Role Phone Bc Hunter MD Primary Care Prov ider Reason for Visit * Reason Comments Med Refill Encounter Details Date Type Department Care Team ([facility] Contact Info) Description 07/18/2024 Refill [facility] CHC MED & PEDS [address] [place] [address] Bc Hunter MD [address] [place] [address] Irritable bowel syndrome with diarrhea Social History Tobacco Use Types Packs/Day Years [...] [facility] MED & PEDS [address] [place] [address] Bc Hunter MD [address] [place] [address] documented as of this encounter Visit Diagnoses Diagnosis Irritable bowel syndrome with diarrhea Irritable bowel syndrome documented in this encounter Additional Health Concerns Assessment Noted Time PHQ-9 Depression Total Score: 0 09/30/19 24 11:02 AM EDT documented as of this encounter Care Teams Mold Setter Relationship Specialty Start Date End Date Bc Hunter MD [address] [place] [address] PCP - General Internal Medicine 01/03/19 documented as of this encounter
--- OUTSIDE RECORDS SUMMARY | 2024-07-20 12:27 | XMS_ITS | Encounter Summary ---
Author Organization [employer] [facility] Address [address] [place] [address] 7 [place] [address] Care Team Providers Care Farm Butcher Name Role Phone Bc Hunter MD Primary Care Prov ider Encounter Details Date Type Department Care Team (Late Contact Info) Description 02/24/2022 Telephone [facility] MEDICINE [address] [place] [address] Bc Hunter MD [address] [place], [place] [phone] Social History Tobacco Use Types Packs/Day Years [...] Description 10/02/2024 11:15 AM EDT Office Visit [facility] CHC MED & PEDS [address] [place] [address] Bc Hunter MD [address] [place], [place] [phone] documented as of this encounter Visit Diagnoses Not on filedocumented in this encounter Care Teams Farm Butcher Relationship Specialty Start Date End Date Bc Hunter MD [address] [place], [place] [phone] PCP - General Internal Medicine 01/03/19 documented as of this encounter
--- OUTSIDE RECORDS SUMMARY | 2024-07-20 12:27 | XMS_ITS | Encounter Summary ---
Author Organization [employer] Address [address] [address] [address] 7t [place] [address] Care Team Providers Care Propeller Engineer Name Role Phone Bc Hunter MD Primary Care Prov ider Encounter Details Date Type Department Care Team (Late st Contact Info) Description 07/20/2024 Orders Only GENERIC EXTERNAL DATA [...] [facility] [address] [place] [address] Bc Hunter MD [address] [place] [address] documented as of this encounter Procedures Procedure Name Priority Date/Time Associated Diagnosis Comments PROTHROMBIN TIME WHOLE BLD POC Routine 07/20/2024 11:09 AM EDT ~PT, ~INR - ANTI COAG CLINIC Routine 07/20/2024 11:09 AM EDT documented in this encounter Results * (ABNORMAL) PROTHROMBIN TIME WHOLE BLD POC (07/20/2024 11:09 AM EDT) Protime 20.2(H) 11.1 - 13.5 sec [facility] 07/20/2024 11:0 9 AM EDT 07/20/2024 11:11 AM EDT us Generic External Data Provider LAB BLOOD ORDERAB LES Final Result [facility] [address] [place] [address] [phone] * (ABNORMAL) ~PT, ~INR - ANTI COAG CLINIC (07/20/2024 11:09 AM EDT) Prothrombin Time INR 1.7(H) 0.9 - 1.1 [facility] Comment:METER #: [id number] TERNATIONAL NORMALIZED RATIO (INR) REFERENCE RANGES Reference [...] Provider LAB BLOOD ORDERAB LES Final Result [facility] [address] [place] [address] [phone] documented in this encounter Visit Diagnoses Not on filedocumented in this encounter Additional Health Concerns Assessment Noted Time PHQ-9 Depression Total Score: 0 09/30/19 24 11:02 AM EDT documented as of this encounter Care Teams Propeller Engineer Relationship Specialty Start Date End Date Bc Hunter MD [address] [place] [address] PCP - General Internal Medicine 01/03/19 documented as of this encounter
== END 2024-07-20 11:37 | disposition home or self-care (01) ==
LOC: HO.ACS 10:50
PROVIDERS: PCP Internal Medicine; Visit Provider Internal Medicine Medical Oncology
DX: Z79.01 Long term (current) use of anticoagulants (principal)

== ENCOUNTER → 2024-07-20 10:50 | Outpatient (BNVA) | payer MEDICARE, MEDICAID, SELFPAY | PROVIDERS: PCP Internal Medicine; Visit Provider Internal Medicine Medical Oncology | DX: Z95.2 Presence of prosthetic heart valve (principal); Z51.81 Encounter for therapeutic drug level monitoring; Z79.01 Long term (current) use of anticoagulants | CPT/HCPCS: 85610; 99211 ==

== ENCOUNTER 2024-07-24 11:35 | Outpatient (AMB) | payer MEDICARE, MEDICAID, SELFPAY ==
[2024-07-24 11:40] LABS: Prothrombin Time Whole Bld POC 22.6 sec (11.1-13.5); ~PT, ~INR - Anti Coag Clinic 1.9 (0.9-1.1)
--- NOTE | 2024-07-24 11:50 | MHC.OFFVISCO ---
Intake Intake Visit Reasons: Anticoagulation Allergies No Known Allergies Allergy (Mild, Verified 07/24/24 11:37) NOT APPLICABLE Nursing Note Pt to [facility] accompanied by senior care aide. INR: 1.9 out of therapeutic range of 2-3 Medications and supplements reviewed No changes in health, diet, medications, or supplements, Denies any signs and symptoms of bleeding or bruising or clotting. Bleeding, bruising, clotting discussed Nutritional guidance given to avoid greens today and to have a serving of food from the list that raises the INR. Food list reviewed and given to the health aide . Dose: increase today's dose to 6mg (4mg) then resume usual dose 4mg X 4 days and 2 mg X 3 days (//) F/U INR: 2 weeks Patient verbalizes understanding of instructions given Anti-Coag Initial Assessment Social Hx Patient Tobacco Use Status: Refuse Tobacco use screen alcohol intake: never Coding Level of Care Code Est Patient Level 1 Diagnoses Current use of anticoagulant therapy Z79.01 Results AMB INR Fingerstick AMB INR Fingerstick 1.9 Last Edit by Nivia Beaver RN on 07/24/24 11:43 interface delay Assessment & Plan Assessment & Plan (1) Current use of anticoagulant therapy: Code(s): Z79.01 - care home (current) use of anticoagulants Category: Medical
--- OUTSIDE RECORDS SUMMARY | 2024-07-24 13:21 | XMS_ITS | Encounter Summary ---
Author Organization [employer] Address [address] 7 [place] [address] Care Team Providers Care Biology Internship Name Role Phone Bc Hunter MD Primary Care Prov ider Encounter Details Date Type Department Care Team (Late st Contact Info) Description 09/20/2023 Orders Only [facility] CHC MED & PEDS [address] [place], [place] [phone] Bc Hunter MD [address] [place] [address] Social History Tobacco Use Types Packs/Day Years [...] 10/02/2024 11:15 AM EDT Office Visit [facility] MED & PEDS [address] [place] [address] Bc Hunter MD [address] [place] [address] documented as of this encounter Visit Diagnoses Not on filedocumented in this encounter Additional Health Concerns Assessment Noted Time PHQ-9 Depression Total Score: 0 07/11/19 23 11:26 AM EDT documented as of this encounter Care Teams Biology Internship Relationship Specialty Start Date End Date Bc Hunter MD [address] [place] [address] PCP - General Internal Medicine 01/03/19 documented as of this encounter
--- OUTSIDE RECORDS SUMMARY | 2024-07-24 13:21 | XMS_ITS | Clinical Summary ---
Author Organization [facility] [place], Address [address] [place] [address] [place] [address] Phone Care Team Providers Care Sample Patternmaker Name Role Phone YatesBc Primary Care Provider [phone] Allergies No known active allergies Medications D3-50 1.25 MG (31045 UT) capsule TAKE 1 CAPSULE BY MOUTH [...] Telephone [facility], [address] [address] Sasha Bhatt from Last 3 [...] Visit [facility] [address] [place] [phone] Trever Lopez MD [address] [facility] [address] [place] [phone] Health Maintenance Due Date Last Done Comments [...] topic Insurance Medicare Medicaid [place] Care Teams Sample Patternmaker Relationship Specialty Start Date End Date Bc Yates: [phone] PCP - General Internal Medicine 10/05/22
--- OUTSIDE RECORDS SUMMARY | 2024-07-24 13:21 | XMS_ITS | Encounter Summary ---
Author Organization [facility] Address [address] [place] [address] Phone Care Team Providers Care Candy Spreader Helper Name Role Phone Bc Yates Primary Care Provider [phone] Encounter Details Date Type Department Care Team (Late st Contact Info) Description 05/26/2021 Documentation Only [facility] [address] [place] [address] Trever Lopez MD [address] [place] [address] [place] [address] Social History Tobacco Use Types [...] Visit [facility] [address] [place] [address] Trever Lopez MD [address] [place] [address] [place] [address] documented as of this encounter Visit Diagnoses Not on filedocumented in this encounter Care Teams Candy Spreader Helper Relationship Specialty Start Date End Date Bc Yates PCP - General Internal Medicine 10/05/22 documented as of this encounter
--- OUTSIDE RECORDS SUMMARY | 2024-07-24 13:22 | XMS_ITS | Encounter Summary ---
Author Organization [employer] Address [address] 7[address] [place] [address] Care Team Providers Care Senior Cost Estimator Name Role Phone Bc Hunter MD Primary Care Prov ider Reason for Visit * Reason Comments Med Change Request Encounter Details Date Type Department Care Team ([facility] Contact Info) Description 07/19/2023 Refill [facility] CHC MED & PEDS [address] [place] [address] Oralia Mazariegos FNP [address] [place] [address] Social History Tobacco Use Types Packs/Day Years [...] [facility] MED & PEDS [address] [place] [address] Bc Hunter MD [address] [place] [address] documented as of this encounter Visit Diagnoses Not on filedocumented in this encounter Additional Health Concerns Assessment Noted Time PHQ-9 Depression Total Score: 0 07/11/19 23 11:26 AM EDT documented as of this encounter Care Teams Senior Cost Estimator Relationship Specialty Start Date End Date Bc Hunter MD [address] [place] [address] PCP - General Internal Medicine 01/03/19 documented as of this encounter
--- OUTSIDE RECORDS SUMMARY | 2024-07-24 13:22 | XMS_ITS | Clinical Summary ---
Author Organization [employer] Address [address] [place] [address] 7t [place] [address] Care Team Providers Care Pourer Bull Ladle Name Role Phone Bc Hunter MD Primary [...] Will order a follow up LDCT scan, physiotherapy aide was told to contact pulmonology office Seborrheic dermatitis of scalp 01/26/2023 Assessment & Plan (07/20/2023 8:52 PM EDT): Followed by [facility] Derm clinic Refill of topical [...] valve replacement 04/28/2022 Overview (07/20/2023): Followed by [facility] Cou[facility] Assessment & Plan (07/20/2023 8:46 PM EDT): Cardiology consult scheduled 07/20/23 No reported hx of bleeding, no reported chest pain/shortness of breath Discussed with PCP and [facility] (Lori FLETCHER). Plan to bridge pt from Eliquis to Coumadin. May DC Eliquis once Coumadin therapeutic Coumadin dosinmg on Wednesday and Wednesday 4mg all other days of the week Plan: [facility] Coagulation clinic to reach out to jail to schedule INR check and re-start on [...] Encounters Date Type Department Care Team Description 07/24/2024 Orders Only GENERIC EXTERNAL DATA DEPARTMENT Provider, Generic External Data 07/20/2024 Orders Only GENERIC EXTERNAL DATA DEPARTMENT Provider, Generic External Data 07/18/2024 Refill [facility] [address] [place] [address] Bc Hunter MD Irritable bowel syndrome with diarrhea 07/06/2024 Telephone [facility] [address] [place] [address] Bc Hunter MD Medication Question 07/05/2024 Telephone [facility] MEDICINE [address] [place] [address] Bc Hunter MD Call Back Request (/) 07/05/[address] [address] Bc Hunter MD Call Back Request 07/05/2024 Orders Only GENERIC EXTERNAL DATA DEPARTMENT Provider, Generic External Data 07/05/[address] [address] Bc Hunter MD Lab Orders 07/05/2024 Refill [facility] [address] [place] [address] Bc Hunter MD Gastroesophageal reflux disease without esophagitis 07/03/2024 11:15 AM EDT Office Visit [facility] [address] [place] [address] Zafar Richard MD Multifocal pneumonia (Primary Dx); Acquired hypothyroidism 07/03/2024 Travel 06/29/[address] [address] 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, chemical unit operator Question 06/29/2024 Orders Only GENERIC EXTERNAL DATA DEPARTMENT Provider, Generic External Data 06/28/2024 Telephone [facility] [address] [place] [address] Bc Hunter MD Nurse Triage 06/27/2024 Orders Only [facility] External Provider, [facility] 06/23/[address] [address] Bc Hunter MD Call Back Request 06/19/2024 1:00 PM EDT Office Visit [facility] [address] [place] [address] Zafar Richard MD Mild chronic obstructive pulmonary disease (CMS/HCC) (Primary Dx); Solitary lung nodule; Dyspnea on exertion; Smoking 06/19/2024 Travel [address] [address] Bc Hunter MD Nurse Triage 06/13/2024 Orders Only GENERIC EXTERNAL DATA DEPARTMENT Provider, Generic External Data 06/04/[address] [address] Bc Hunter MD 06/01/2024 Orders Only GENERIC EXTERNAL DATA DEPARTMENT Provider, Generic External Data 05/21/2024 Orders Only [facility] [address] [place] [address] Bc Hunter MD Onychomycosis (Primary Dx) 05/21/2024 Refill [facility] MEDICINE [address] [place] [address] Bc Hunter MD 05/19/2024 Orders Only GENERIC EXTERNAL DATA DEPARTMENT Provider, Generic External Data 05/12/2024 Orders Only GENERIC EXTERNAL DATA DEPARTMENT Provider, Generic External Data 05/06/2024 Refill [facility] MEDICINE [address] [place] [address] Bc Hunter MD Mixed hyperlipidemia 05/01/2024 Orders Only GENERIC EXTERNAL DATA DEPARTMENT Provider, Generic External Data 04/27/2024 Telephone [facility] [address] [place] [address] Bc Hunter MD Lung screening 04/26/2024 11:15 AM EST Office Visit [facility] [address] [place] [address] Bc Hunter MD Acquired hypothyroidism (Primary Dx); Other iron deficiency anemia; Nodule of left lung 04/26/2024 Travel from Last 3 Months Social History Tobacco [...] is your housing situation today? I have neot fernandez 07/19/[address] you [...] Description 10/02/2024 11:15 AM EDT Office Visit [facility] [address] [place] [address] Bc Hunter MD [address] [place] [address] Health Maintenance Due Date Last Done Comments [...] Comments PROTHROMBIN TIME WHOLE BLD POC Routine 07/24/2024 11:39 AM EDT ~PT, ~INR - ANTI COAG CLINIC Routine 07/24/2024 11:39 AM EDT PROTHROMBIN TIME WHOLE BLD POC Routine 07/20/2024 [...] COAG CLINIC Routine 05/01/2024 11:12 AM EST LIPID PANEL, STANDARD Routine 05/06/2023 11:48 AM EST Hyperlipemia, mixed HEPATITIS C AB W/REFL TO HCV RNA, QN, PCR Routine 07/10/2022 11:31 AM EDT S/P aortic valve replacement Pre-op evaluation from Last 3 Months or Most Recently Relevant to Health Maintenance Results * (ABNORMAL) PROTHROMBIN TIME WHOLE BLD POC (07/24/2024 11:39 AM EDT) Only the most recent of9 resultswithin the time period is included. Protime 22.6(H) 11.1 - 13.5 sec [facility] 07/24/2024 11:3 9 AM EDT 07/24/2024 11:40 AM EDT us Generic External Data Provider LAB BLOOD ORDERAB LES Final Result Performing Organization Address City/State/[facility] Co de Phone Number [facility] [address] [place] [phone] * (ABNORMAL) ~PT, ~INR - ANTI COAG CLINIC (07/24/2024 11:39 AM EDT) Only the most recent of9 resultswithin the time period is included. Prothrombin Time INR 1.9(H) 0.9 - 1.1 [facility] Comment:METER #: [id number] TERNATIONAL NORMALIZED RATIO (INR) REFERENCE RANGES Reference RangeFor patients not on anticoagulant therapy: 0.9 - 1.1INR ranges for oral anticoagulanttherapy:For prevention and treatment of venous thrombosis and pulmonary embolism: 2.0 - 3.0For acute myocardial infarction with aspirin therapy: 2.0 - 3.0For acute myocardial infarction without aspirin therapy: 3.0 - 4.0For patients with mechanical prosthetic heart valves: 2.5 - 3.5 07/24/2024 11:3 9 AM EDT 07/24/2024 11:40 AM EDT us Generic External Data Provider LAB BLOOD ORDERAB LES Final Result [facility] [address] [place] [phone] [phone] * XR Chest 2 Views (06/27/2024 12:23 PM EDT) Anatomical Region Laterality Modality Chest Radiographic Kelly ging 06/27/2024 12:2 3 PM EDT Narrative 06/27/2024 1:08 PM EDT ? [facility] ?[address] ? [place] [address] ?XRay Report ? Signed ? Patient: Nik,Chris ?MR#: [id number] ? : 1950 ?Acct:[id number] ? Age/Sex: 74 / M ?ADM Date: 06/27/24 ? Loc: HO.HMGCX ? Attending Dr: Yasmeen Guerra PA-C ? Ordering Physician: Yasmeen Guerra PA-C ?? Date of Service: 06/27/24 ?? Procedure(s): XR chest 2V ?? Accession Number(s): [id number] ? cc: Bc Hunter MD; Yasmeen Guerra [...] DD/ 1223 ? TD/TT: 06/27/24 1223 ? Foreman/Project Manager: ? Procedure Note Donkate, Jb - 06/27/2024 [facility] [address] [place] [address] [place] [address] XRay Report Signed Patient: Amos Zaragoza#: [id number] : 1950cct:[id number] Age/Sex: 74 / MADM Date: 06/27/24 Loc: HO.[facility]GCX Attending Dr: Yasmeen Guerra PA-C Ordering Physician: Yasmeen Guerra PA-C Date of Service: 06/27/24 Procedure(s): XR chest 2V Accession Number(s): [id number] cc: Bc Hunter MD; Yasmeen Guerra PA-C [...] 06/27/24 1304 DD/ 1223 TD/TT: 06/27/24 1223 Foreman/Project Manager: [facility] External Provider IMG XR PROCEDURES Final Result * PET/CT FDG Skull Base To Mid-Thigh (06/07/2024 3:59 PM EDT) Anatomical Region Laterality Modality Computed Tomogra phy Historical Provider IMG CT PROCEDURES Final R esult * Lipid Panel, Standard (05/06/2023 11:48 AM EST) Triglycerides 61 <150 mg/dL [facility] Comment:Desirable Triglyceri de: less than 150 mg/dLBorderline High Triglyceride 150-199 mg/dLHigh Triglyceride: 200-499 mg/dLVery High Triglyceride: greater than or equal to 5OO mg/dL Cholesterol 166 <200 mg/dL [facility] Comment:Desirable Cholestero l: less than 200 mg/dLBorderline High Cholesterol: 200-239 mg/dLHigh Cholesterol: greater than 239 mg/dL LDL Cholesterol Calculated 94 <100 mg/dL [facility] Comment:Desirable LDL: less than 100 mg/dLNear Optimal/Above Optimal LDL: 110- 129 mg/dLBorderline High LDL: 130-159 mg/dLHigh LDL: 160-189 mg/dLVery High LDL: greater than or equal to 190 mg/dL HDL Cholesterol 60 >40 mg/dL [facility] Comment:Desirable HDL: great er than 40 mg/dL Note: This HDL assay may give artificially low results in patients with liver disease. Blood Venous blood specimen / Unknown 05/06/2023 11:48 AM EST 05/06/2023 2:09 PM EST Bc Rascon MD LAB BLOOD ORDERABL ES Final Result [facility] [address] [place] [phone] [phone] * Hepatitis C Antibody with Reflex to HCV, RNA, Quantitative, Real-Time PCR (07/10/2022 11:31 AM EDT) Hepatitis C Antibody NON-REACT DEZ NON-REACT DEZ [facility] [place] [facility] Index 0.09 <1.00 [facility] [place] [employer] Comment: HCV antibody was non-reactive. There is no laboratory evidence of HCV infection. In most cases, no further action is required. However, if recent HCV exposure is suspected, a test for HCV RNA (test code 89264) is suggested. For additional information please refer to http://education.opendorse/faq/JBY63i6 (This link is being provided for informational/ educational purposes only.) Blood Venous blood specimen / Unknown 07/10/2022 11:31 AM EDT 07/10/2022 11:32 AM EDT Narrative [facility] - 07/11/2022 5:06 AM EDT FASTING:NO FASTING: NO [facility] Trudy Rascon MD LAB BLOOD ORDERABL ES Final Result Performing Organization Address City/[facility] Co de Phone Number [facility] [address], [place] [address] [facility] [place] [facility] [address] [place] [phone] from Last 3 Months or Most Recently Relevant to Health Maintenance Insurance MEDICARE [facility] STANDARD Care Teams Pourer Bull Ladle Relationship Specialty Start Date End Date Bc Hunter MD [address] [place] [phone] PCP - General Internal Medicine 01/03/19
--- OUTSIDE RECORDS SUMMARY | 2024-07-24 13:22 | XMS_ITS | Encounter Summary ---
Author Organization [employer] Address [address] [facility] 7 [place] [address] Care Team Providers Care Parachute Inspector Name Role Phone Bc Hunter MD Primary Care Prov ider Reason for Visit * Reason Onset Date Comments Nurse Triage 2024 Encounter Details Date Type Department Care Team ([facility] st Contact Info) Description 2024 Telephone [facility] MEDICINE [address] [place] [address] Bc Hunter MD [address] [place], [place] [phone] Nurse Triage Social History Tobacco Use Types [...] EDT called pt to triage, spoke to quality assurance group leader, ANTONIO. pt was seen on 06/14 by [facility] pulmonology on 06/14 and due to some distress was sent to the ER for evaluation. pt diagnosed with Pneumonia and put onantibiotics x5 days. worker states pt eating and drinking, not having any fevers or severe/sustained sob, or other associated symptoms. given appt Wednesday with [facility] at 1:00 for exam and follow [...] 2024 3:49 PM EDT Tc from Patient SHAPE HAND to report ED visit on : Date: 06/14 Hospital: [facility] Seen for: pneumonia Symptomatic Yes *if yes message should go to Triage Patient advised will forward to team nurse for follow up [phone] pt documented in this encounter Plan of Treatment Upcoming Encounters Date Type Department Care Team (Late st Contact Info) Description 10/02/2024 11:15 AM EDT Office Visit [facility]ED[facility] [address] [place] [address] Bc Hunter MD [address] [place] [address] documented as of this encounter Visit Diagnoses Not on filedocumented in this encounter Additional Health Concerns Assessment Noted Time PHQ-9 Depression Total Score: 0 09/30/19 24 11:02 AM EDT documented as of this encounter Care Teams Parachute Inspector Relationship Specialty Start Date End Date Bc Hunter MD [address] [place] [address] PCP - General Internal Medicine 01/03/19 documented as of this encounter
--- OUTSIDE RECORDS SUMMARY | 2024-07-24 13:22 | XMS_ITS | Encounter Summary ---
Author Organization [employer] Address [address] [place] [address] 7 [place] [address] Care Team Providers Care Road Manager Name Role Phone Bc Hunter MD Primary Care Prov ider Reason for Visit * Reason Onset Date Comments Med Refill 09/21/2022 Encounter Details Date Type Department Care Team ([facility] st Contact Info) Description 09/21/2022 Telephone [facility] PEDS [address] [place] [address] Bc Hunter MD [address] [place] [address] Med Refill Social History Tobacco Use Types [...] 09/23/2022 8:28 AM EDT Pt managed by [facility]. Last INR of 3.1 noted 09/17/22. Will forward request for Rx to covering provider to review. * Telephone Encounter - Ping Nettles - 09/21/2022 10:39 AM EDT Tc from pt requesting med refill on Warfarin 1 mg tablet [id number] [place], [place] - [address] [facility] Please sent to documented in this encounter Plan of Treatment Upcoming Encounters Date Type Department Care Team (Late st Contact Info) Description 10/02/2024 11:15 AM EDT Office Visit [facility] MED [facility] PEDS [address] [place] [address] Bc Hunter MD [address] [place] [address] documented as of this encounter Visit Diagnoses Diagnosis History of Coumadin therapy- Primary S/P aortic valve replacement Heart valve replaced by other means documented in this encounter Additional Health Concerns Assessment Noted Time PHQ-9 Depression Total Score: 0 07/11/19 23 11:26 AM EDT documented as of this encounter Care Teams Road Manager Relationship Specialty Start Date End Date Bc Hunter MD [address] [place] [address] PCP - General Internal Medicine 01/03/19 documented as of this encounter
--- OUTSIDE RECORDS SUMMARY | 2024-07-24 13:22 | XMS_ITS | Encounter Summary ---
Author Organization [employer] Address [address] 7[address] [place] [address] Care Team Providers Care Auto Mechanics Instructor Name Role Phone Bc Hunter MD Primary Care Prov ider Encounter Details Date Type Department Care Team (Late st Contact Info) Description 07/24/2024 Orders Only GENERIC EXTERNAL DATA [...] 10/02/2024 11:15 AM EDT Office Visit [facility] PED[facility] [address] [place] [address] Bc Hunter MD [address] [place] [address] documented as of this encounter Procedures Procedure Name Priority Date/Time Associated Diagnosis Comments PROTHROMBIN TIME WHOLE BLD POC Routine 07/24/2024 11:39 AM EDT ~PT, ~INR - ANTI COAG CLINIC Routine 07/24/2024 11:39 AM EDT documented in this encounter Results * (ABNORMAL) PROTHROMBIN TIME WHOLE BLD POC (07/24/2024 11:39 AM EDT) Protime 22.6(H) 11.1 - 13.5 sec [facility] 07/24/2024 11:3 9 AM EDT 07/24/2024 11:40 AM EDT us Generic External Data Provider LAB BLOOD ORDERAB LES Final Result [facility] [address] [place] [phone] [phone] * (ABNORMAL) ~PT, ~INR - ANTI COAG CLINIC (07/24/2024 11:39 AM EDT) Prothrombin Time INR 1.9(H) 0.9 - 1.1 [facility] Comment:METER #: [id number] TERNATIONAL NORMALIZED RATIO (INR) REFERENCE RANGES Reference [...] Provider LAB BLOOD ORDERAB LES Final Result [facility] [address] [place] [phone] [phone] documented in this encounter Visit Diagnoses Not on filedocumented in this encounter Additional Health Concerns Assessment Noted Time PHQ-9 Depression Total Score: 0 09/30/19 24 11:02 AM EDT documented as of this encounter Care Teams Auto Mechanics Instructor Relationship Specialty Start Date End Date Bc Hunter MD [address] [place] [address] PCP - General Internal Medicine 01/03/19 documented as of this encounter
--- OUTSIDE RECORDS SUMMARY | 2024-07-24 13:22 | XMS_ITS | Encounter Summary ---
Author Organization [employer] Address [address] [facility] 7 [place] [address] Care Team Providers Care Impact Retail Service Merchandiser Name Role Phone Bc Hunter MD Primary Care Prov ider Reason for Visit * Reason Onset Date Comments Call Back Request 07/05/2024 Encounter Details Date Type Department Care Team ([facility] st Contact Info) Description 07/05/2024 Telephone [facility] MEDICINE [address] [place] [address] Bc Hunter MD [address] [place], [place] [phone] Call Back Request Social History Tobacco Use [...] 12:18 PM EDT Tc from Kimberly with [facility] requesting a call back regarding the pt Lovenox. Contact Kimberly at [phone] documented in this encounter Plan of Treatment Upcoming Encounters Date Type Department Care Team (Late st Contact Info) Description 10/02/2024 11:15 AM EDT Office Visit [facility] MED & PEDS [address] [place] [address] Bc Hunter MD [address] [place] [address] documented as of this encounter Visit Diagnoses Not on filedocumented in this encounter Additional Health Concerns Assessment Noted Time PHQ-9 Depression Total Score: 0 09/30/19 24 11:02 AM EDT documented as of this encounter Care Teams Impact Retail Service Merchandiser Relationship Specialty Start Date End Date Bc Hunter MD [address] [place] [address] PCP - General Internal Medicine 01/03/19 documented as of this encounter
--- OUTSIDE RECORDS SUMMARY | 2024-07-24 13:22 | XMS_ITS | Clinical Summary ---
Author Organization [facility] Address [address] [place] [address] Phone Care Team Providers Care Ceramics Instructor Name Role Phone Bc Hunter Primary Care Provide r Encounters Date Type Department Care Team Description 06/07/2024 10:39 AM EDT - 06/07/2024 11:59 PM EDT Hospital Encounter [facility] PET Scan [address] [place] [address] Discharge Disposition: Home or Self Care from Last 3 Months Medical History Medical History Date Comments Heart valve replaced by other means 06/29/2011 DX:Heart valve replaced by other means Asthma 06/29/2011 DX:Asthma Tobacco abuse 06/29/2011 DX:Tobacco abuse Schizophrenia ([facility] V24, [facility] V28) 06/29/2011 DX:Schizophrenia ([facility]) Unspecified hypothyroidism 06/29/2011 DX:Un specified hypothyroidism Chronic [...] Signed Date: 06/13/2024 09:29 ET Workstation ID: [id number] Transcribed By: Self Edit Transcribed Date: 06/13/2024 [...] Signed Date: 06/13/2024 09:29 ET Workstation ID: [id number] Transcribed By: Self Edit Transcribed Date: 06/13/2024 08:22 ET Lenny Irving MD IM NM PROCEDURES Final Result from Last 3 Months Insurance MEDICARE MEDICAID - [place] Care Teams Ceramics Instructor Relationship Specialty Start Date End Date Bc Hunter [address] [place] [phone] PCP - General Internal Medicine 04/13/24
--- OUTSIDE RECORDS SUMMARY | 2024-07-24 13:22 | XMS_ITS | Encounter Summary ---
Author Organization [employer] Address [address] [facility] 7 [place] [address] Care Team Providers Care Port Drier Name Role Phone Bc Hunter MD Primary Care Prov ider Reason for Visit * Reason Onset Date Comments Nurse Triage 05/26/2023 Encounter Details Date Type Department Care Team (Late st Contact Info) Description 05/26/2023 Telephone [facility] MEDICINE [address] [place] [address] Bc Hunter MD [address] [place], [place] [phone] Nurse Triage Social History Tobacco Use Types [...] AM EST Triage call Pt is in skilled nursing, Krystin Sepulveda taking call and consent is signed by Pt for staff to speak . Pt has had some changes. Pt decided to stop all psyche medications and MD Ward Myers,discontinued them. (Stop date unknown) Pt has since that time decreased eating, appetite is poor. Pt weight yesterday at eyelet operator apt is 173lbs. Pt was said to be around 202lbs regularly. Pt clothes are fitting very loosely now. Pt also wanted to stop coumadin but, eyelet operator instructed that wouldn't be good to [...] acuity questions The caller accepted this outcome [phone] documented in this encounter Plan of Treatment Upcoming Encounters Date Type Department Care Team (Late st Contact Info) Description 10/02/2024 11:15 AM EDT Office Visit [facility] MED & PEDS [address] [place] [address] Bc Hunter MD [address] [place] [address] documented as of this encounter Visit Diagnoses Not on filedocumented in this encounter Additional Health Concerns Assessment Noted Time PHQ-9 Depression Total Score: 0 07/11/19 23 11:26 AM EDT documented as of this encounter Care Teams Port Drier Relationship Specialty Start Date End Date Bc Hunter MD [address] [place] [address] PCP - General Internal Medicine 01/03/19 documented as of this encounter
--- OUTSIDE RECORDS SUMMARY | 2024-07-24 13:22 | XMS_ITS | Encounter Summary ---
Author Organization [employer] Address [address] [facility] 7 [place] [address] Care Team Providers Care Buffer Inflated Pad Name Role Phone Bc Hunter MD Primary Care Prov ider Reason for Visit * Reason Onset Date Comments Med Refill 05/12/2022 Encounter Details Date Type Department Care Team (Late st Contact Info) Description 05/12/2022 Telephone [facility] MEDICINE [address] [place] [address] Bc Hunter MD [address] [place], [place] [phone] Med Refill Social History Tobacco Use Types [...] Description 10/02/2024 11:15 AM EDT Office Visit [facility] MED [facility] PEDS [address] [place] [address] Bc Hunter MD [address] [place] [address] documented as of this encounter Visit Diagnoses Not on filedocumented in this encounter Care Teams Buffer Inflated Pad Relationship Specialty Start Date End Date Bc Hunter MD [address] [place] [address] PCP - General Internal Medicine 01/03/19 documented as of this encounter
--- OUTSIDE RECORDS SUMMARY | 2024-07-24 13:22 | XMS_ITS | Encounter Summary ---
Author Organization [employer] Address [address] [facility] 7 [place] [address] Care Team Providers Care Professional Tutor Name Role Phone Bc Hunter MD Primary Care Prov ider Reason for Visit * Reason Comments Med Refill Encounter Details Date Type Department Care Team ([facility] Contact Info) Description 07/18/2024 Refill [facility]EDS [address] [place] [address] Bc Hunter MD [address] [place] [address] Irritable bowel syndrome with diarrhea Social History [...] 10/02/2024 11:15 AM EDT Office Visit [facility] PEDS [address] [place] [address] Bc Hunter MD [address] [place] [address] documented as of this encounter Visit Diagnoses Diagnosis Irritable bowel syndrome with diarrhea Irritable bowel syndrome documented in this encounter Additional Health Concerns Assessment Noted Time PHQ-9 Depression Total Score: 0 09/30/19 24 11:02 AM EDT documented as of this encounter Care Teams Professional Tutor Relationship Specialty Start Date End Date Bc Hunter MD [address] [place] [address] PCP - General Internal Medicine 01/03/19 documented as of this encounter
--- OUTSIDE RECORDS SUMMARY | 2024-07-24 13:22 | XMS_ITS | Encounter Summary ---
Author Organization [employer] Address 75 [facility] 7 [place] [address] Care Team Providers Care Picker Box Operator Name Role Phone Bc Hunter MD Primary Care Prov ider Reason for Visit * Reason Comments Med Refill Encounter Details Date Type Department Care Team ([facility] Contact Info) Description 05/18/2023 Refill [facility] CHC MED & PEDS [address] [place] [address] Bc Hunter MD 505 [place] [address] Social History Tobacco Use Types Packs/Day Years [...] [facility] [address] [place] [address] Bc Hunter MD [address] [place] [address] documented as of this encounter Visit Diagnoses Not on filedocumented in this encounter Additional Health Concerns Assessment Noted Time PHQ-9 Depression Total Score: 0 07/11/19 23 11:26 AM EDT documented as of this encounter Care Teams Picker Box Operator Relationship Specialty Start Date End Date Bc Hunter MD 505 [place] [address] PCP - General Internal Medicine 01/03/19 documented as of this encounter
--- OUTSIDE RECORDS SUMMARY | 2024-07-24 13:22 | XMS_ITS | Encounter Summary ---
Author Organization [employer] [facility] Address [address] [place] [address] 7 [place] [address] Care Team Providers Care Vp Account Director Name Role Phone Bc Hunter MD Primary Care Prov ider Encounter Details Date Type Department Care Team (Late Contact Info) Description 02/24/2022 Telephone [facility] MEDICINE [address] [place] [address] Bc Hunter MD [address] [place], [place] [phone] Social History Tobacco Use Types Packs/Day Years [...] Description 10/02/2024 11:15 AM EDT Office Visit [facility] CHC MED & PEDS 505 [place] [address] Bc Hunter MD 505 [place], [place] [phone] documented as of this encounter Visit Diagnoses Not on filedocumented in this encounter Care Teams Vp Account Director Relationship Specialty Start Date End Date Bc Hunter MD 505 [place], [place] [phone] PCP - General Internal Medicine 01/03/19 documented as of this encounter
--- OUTSIDE RECORDS SUMMARY | 2024-07-24 13:22 | XMS_ITS | Encounter Summary ---
Author Organization [employer] [facility] Address [address] [place] [address] 7 [place] [address] Care Team Providers Care Editorial Assistant Name Role Phone Bc Hunter MD Primary Care Prov ider Encounter Details Date Type Department Care Team (Late Contact Info) Description 05/18/2022 Orders Only [facility] MED & PEDS 505 [place], [place] [phone] Bc Hunter MD 505 [place], [place] [phone] S/P aortic valve replacement Social History Tobacco [...] 11:15 AM EDT Office Visit [facility] MED & PEDS [address] [place], [place] [phone] Bc Hunter MD 505 [place], [place] [phone] documented as of this encounter Visit Diagnoses Diagnosis S/P aortic valve replacement Heart valve replaced by other means documented in this encounter Care Teams Editorial Assistant Relationship Specialty Start Date End Date Bc Hunter MD [address] [place] [address] PCP - General Internal Medicine 01/03/19 documented as of this encounter
--- OUTSIDE RECORDS SUMMARY | 2024-07-24 13:22 | XMS_ITS | Encounter Summary ---
Author Organization [employer] Address 75 [facility] 7 [place] [address] Care Team Providers Care Meat Counter Clerk Name Role Phone Bc Hunter MD Primary Care Prov ider Encounter Details Date Type Department Care Team (Late st Contact Info) Description 07/16/2022 Telephone [facility] CHC MED & PEDS 505 [place], [place] [phone] Bc Hunter MD 505 [place] [address] Social History Tobacco Use Types Packs/Day Years [...] swelling. Right side. Please contact Lori @ [phone] if additional labs are requested by PCP [...] swelling. Right side. Please contact Lori @ [phone] if additional labs are requested by PCP [...] Description 10/02/2024 11:15 AM EDT Office Visit [facility] MED & PEDS 505 [place] [address] Bc Hunter MD 505 [place] [address] documented as of this encounter Visit Diagnoses Not on filedocumented in this encounter Additional Health Concerns Assessment Noted Time PHQ-9 Depression Total Score: 0 07/11/19 23 11:26 AM EDT documented as of this encounter Care Teams Meat Counter Clerk Relationship Specialty Start Date End Date Bc Hunter MD 505 [place] [address] PCP - General Internal Medicine 01/03/19 documented as of this encounter
--- OUTSIDE RECORDS SUMMARY | 2024-07-24 13:22 | XMS_ITS | Encounter Summary ---
Author Organization [employer] Address 75 [facility] 7 [place] [address] Care Team Providers Care Retail Performance Coach Name Role Phone Bc Hunter MD Primary Care Prov ider Reason for Visit * Reason Onset Date Comments Referral 12/06/2023 Encounter Details Date Type Department Care Team ([facility] st Contact Info) Description 12/06/2023 Telephone [facility] MEDICINE 230 [place] [address] Bc Hunter MD 505 [place], [place] [phone] Referral Social History Tobacco Use Types Packs/Day [...] 12/06/2023 9:45 AM EDT Tc from patients alf calling to report the provider for podiatry has and would need to be referred to another location would like to be seen by Sarkis in the [place] location ifpossible documented in this encounter Plan of Treatment Upcoming Encounters Date Type Department Care Team (Late st Contact Info) Description 10/02/2024 11:15 AM EDT Office Visit [facility] CHC MED & PEDS 505 [place] [address] Bc Hunter MD 505 [place] [address] documented as of this encounter Visit Diagnoses Not on filedocumented in this encounter Additional Health Concerns Assessment Noted Time PHQ-9 Depression Total Score: 0 09/30/19 24 11:02 AM EDT documented as of this encounter Care Teams Retail Performance Coach Relationship Specialty Start Date End Date Bc Hunter MD 505 [place] [address] PCP - General Internal Medicine 01/03/19 documented as of this encounter
--- OUTSIDE RECORDS SUMMARY | 2024-07-24 13:22 | XMS_ITS | Encounter Summary ---
Author Organization [employer] Address 75 [facility] 7 [place] [address] Care Team Providers Care Cardiovascular Disease Specialist Name Role Phone Bc Hunter MD Primary Care Prov ider Reason for Visit * Reason Onset Date Comments Med Refill 05/15/2022 Encounter Details Date Type Department Care Team ([facility] st Contact Info) Description 05/15/[address] [facility] CHC MED & PEDS 505 [place] [address] Bc Hunter MD 505 [place] [address] Med Refill Social History Tobacco Use Types [...] a max daily dose. Call placed [facility]. Per Della, pt is currently [...] 11:54 AM EST Tc from Amy with [facility] requesting some kinds of specific directions for warfarin (Coumadin) 2 MG tablet If any question please contact amy at [phone] documented in this encounter Plan of Treatment Upcoming Encounters Date Type Department Care Team (Late st Contact Info) Description 10/02/2024 11:15 AM EDT Office Visit [facility] MED & PEDS 505 [place] [address] Bc Hunter MD 505 [place] [address] documented as of this encounter Visit Diagnoses Not on filedocumented in this encounter Care Teams Cardiovascular Disease Specialist Relationship Specialty Start Date End Date Bc Hunter MD 505 [place] [address] PCP - General Internal Medicine 01/03/19 documented as of this encounter
--- OUTSIDE RECORDS SUMMARY | 2024-07-24 13:22 | XMS_ITS | Encounter Summary ---
Author Organization [employer] [facility] Address [address] [place] [address] [place] [address] Care Team Providers Care Cup Machine Operator Name Role Phone Bc Hunter MD Primary Care Prov ider Reason for Visit * Reason Comments Med Refill Encounter Details Date Type Department Care Team (Late Contact Info) Description 10/25/2022 Refill [facility] MED & PEDS 505 [place] [address] Bc Hunter MD 505 [place] [address] Social History Tobacco Use Types Packs/Day Years [...] Description 10/02/2024 11:15 AM EDT Office Visit [facility] CHC MED & PEDS 505 [place] [address] Bc Hunter MD 505 [place] [address] documented as of this encounter Visit Diagnoses Not on filedocumented in this encounter Additional Health Concerns Assessment Noted Time PHQ-9 Depression Total Score: 0 07/11/19 23 11:26 AM EDT documented as of this encounter Care Teams Cup Machine Operator Relationship Specialty Start Date End Date Bc Hunter MD [address] [place] [address] PCP - General Internal Medicine 01/03/19 documented as of this encounter
--- OUTSIDE RECORDS SUMMARY | 2024-07-24 13:22 | XMS_ITS | Encounter Summary ---
Author Organization [employer] Address [address] [facility] [address] 7t [place] [address] Care Team Providers Care Ground Equipment Mechanic Name Role Phone Bc Hunter MD [...] [facility] MED & PEDS 505 [place] [address] Bc Hunter MD 505 [place] [address] documented as of this encounter Procedures Procedure Name Priority Date/Time Associated Diagnosis Comments PROTHROMBIN TIME WHOLE BLD POC Routine 07/20/2024 11:09 AM EDT ~PT, ~INR - ANTI COAG CLINIC Routine 07/20/2024 11:09 AM EDT documented in this encounter Results * (ABNORMAL) PROTHROMBIN TIME WHOLE BLD POC (07/20/2024 11:09 AM EDT) Protime 20.2(H) 11.1 - 13.5 sec [facility] 07/20/2024 11:0 9 AM EDT 07/20/2024 11:11 AM EDT us Generic External Data Provider LAB BLOOD ORDERAB LES Final Result [facility] [address] [place] [address] [phone] * (ABNORMAL) ~PT, ~INR - ANTI COAG CLINIC (07/20/2024 11:09 AM EDT) Prothrombin Time INR 1.7(H) 0.9 - 1.1 [facility] Comment:METER #: [id number] TERNATIONAL NORMALIZED RATIO (INR) REFERENCE RANGES Reference [...] Final Result [facility] [address] [place] [address] [phone] documented in this encounter Visit Diagnoses Not on filedocumented in this encounter Additional Health Concerns Assessment Noted Time PHQ-9 Depression Total Score: 0 09/30/19 24 11:02 AM EDT documented as of this encounter Care Teams Ground Equipment Mechanic Relationship Specialty Start Date End Date Bc Hunter MD [address] [place] [address] PCP - General Internal Medicine 01/03/19 documented as of this encounter
--- OUTSIDE RECORDS SUMMARY | 2024-07-24 13:22 | XMS_ITS | Encounter Summary ---
Author Organization [facility] Address [address] [place] [address] Phone Care Team Providers Care Flight Attendant Ramp Name Role Phone Bc Yates Primary Care Provider [phone] Reason for Visit * Reason Comments Med Refill Encounter Details Date Type Department Care Team (Late st Contact Info) Description 01/13/2022 Refill [facility] [address] [place] [address] Trever Lopez MD [address] [place] [address] Social History Tobacco Use Types [...] Visit [facility] [address] [place] [address] Trever Lopez MD [address] [place] [address] documented as of this encounter Visit Diagnoses Not on filedocumented in this encounter Care Teams Flight Attendant Ramp Relationship Specialty Start Date End Date Bc Yates PCP - General Internal Medicine 10/05/22 documented as of this encounter
== END 2024-07-24 11:54 | disposition home or self-care (01) ==
LOC: HO.ACS 11:35
PROVIDERS: PCP Internal Medicine; Visit Provider Internal Medicine Medical Oncology
DX: Z79.01 Long term (current) use of anticoagulants (principal)

== ENCOUNTER → 2024-07-24 11:35 | Outpatient (BNVA) | payer MEDICARE, MEDICAID, SELFPAY | PROVIDERS: PCP Internal Medicine; Visit Provider Internal Medicine Medical Oncology | DX: Z95.2 Presence of prosthetic heart valve (principal); Z51.81 Encounter for therapeutic drug level monitoring; Z79.01 Long term (current) use of anticoagulants | CPT/HCPCS: 85610; 99211 ==

== ENCOUNTER 2024-08-07 11:14 | Outpatient (AMB) | payer MEDICARE, MEDICAID, SELFPAY ==
[2024-08-07 11:19] LABS: Prothrombin Time Whole Bld POC 22.2 sec (11.1-13.5); ~PT, ~INR - Anti Coag Clinic 1.8 (0.9-1.1)
--- NOTE | 2024-08-07 11:26 | MHC.OFFVISCO ---
Intake Intake Visit Reasons: Anticoagulation Allergies No Known Allergies Allergy (Mild, Verified 08/07/24 11:14) NOT APPLICABLE Medication List - Last Reconciled 08/07/24 by Nivia Beaver RN albuterol sulfate 90 mcg/actuation (Ventolin HFA) 1 puff inhalation RQ4H PRN amantadine HCl 100 mg PO BID atorvastatin 40 mg PO BEDTIME carbamide peroxide (Debrox) 5 DROPS EACH EAR EVERY 2 WEEKS cholecalciferol (vitamin D3) (Vitamin D3) 25 mcg PO QAM dicyclomine 20 mg PO BID divalproex ER 1,000 mg PO BEDTIME ferrous sulfate 324 mg PO DAILY [FLUCINOLONE TOPICAL DAILY ] levothyroxine 25 mcg PO DAILY@0600 loratadine 10 mg PO DAILY magnesium oxide 400 mg PO BIDPC multivitamin with folic acid 400 mcg (Daily-Stanley (with folic acid)) 1 tab PO DAILY pantoprazole 40 mg PO BID revefenacin (Yupelri) 175 mcg (3 mL) inhalation DAILY 30 days risperidone (Risperdal) 4 mg PO BID tamsulosin 0.4 mg PO BEDTIME valproic acid 1000mg orally daily; warfarin See Protocol 2 mg orally 4MG DAILY OR DIRECTED; 4MG DAILY OR DIRECTED Nursing Note Pt to [facility] with mental health aide from [facility] INR: 1.8?out of therapeutic range of 2-3 Medications and supplements reviewed Patient status: well, no changes Medications or supplements: no changes Diet: no changes, appetite good Denies any signs and symptoms of bleeding or clotting or unusual bruising Bleeding, bruising, clotting discussed Nutritional guidance given: food list reviewed with pt and aide. Pt to avoid greens X 2 days Dose: increase today's dose to 6mg (4mg) and increase tomorrow's dose to 4mg (2mg) then usual dose of 4mg X 4 days and 2 mg X 3 days F/U INR Date : 08/21/24? Patient and aide verbalizing understanding of instructions given. Anti-Coag Initial Assessment Social Hx Patient Tobacco Use Status: Refuse Tobacco use screen alcohol intake: never Coding Level of Care Code Est Patient Level 1 Diagnoses Current use of anticoagulant therapy Z79.01 Results AMB INR Fingerstick AMB INR Fingerstick 1.8 Last Edit by Nivia Beaver RN on 08/07/24 11:21 interface delay Assessment & Plan Assessment & Plan (1) Current use of anticoagulant therapy: Code(s): Z79.01 - intermediate frame tender (current) use of anticoagulants Category: Medical
--- OUTSIDE RECORDS SUMMARY | 2024-08-07 11:59 | XMS_ITS | Encounter Summary ---
Author Organization [employer] Address 75 [facility] 7 [place] [address] Care Team Providers Care Neurologist Name Role Phone cB Hunter MD Primary Care Prov ider Reason for Visit * Reason Comments Med Refill Encounter Details Date Type Department Care Team ([facility] st Contact Info) Description 05/18/2023 Refill [facility] CHC MED & PEDS 505 [place] [address] Bc Hunter MD 505 [place] [address] Social History Tobacco Use Types Packs/Day Years [...] Description 10/02/2024 11:15 AM EDT Office Visit [facility] MED & PEDS 505 [place] [address] Bc Hunter MD 505 [place] [address] documented as of this encounter Visit Diagnoses Not on filedocumented in this encounter Additional Health Concerns Assessment Noted Time PHQ-9 Depression Total Score: 0 07/11/19 23 11:26 AM EDT documented as of this encounter Care Teams Neurologist Relationship Specialty Start Date End Date Bc Hunter MD 505 [place] [address] PCP - General Internal Medicine 01/03/19 documented as of this encounter
--- OUTSIDE RECORDS SUMMARY | 2024-08-07 11:59 | XMS_ITS | Clinical Summary ---
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 DX:Heart valve replaced by other means Asthma 06/29/2011 DX:Asthma Tobacco abuse 06/29/2011 DX:Tobacco abuse Schizophrenia ([facility] V24, [facility] V28) 06/29/2011 DX:Schizophrenia ([facility]) Unspecified hypothyroidism 06/29/2011 DX:Un specified hypothyroidism Chronic [...] Signed Date: 06/13/2024 09:29 ET Workstation ID: [id number] Transcribed By: Self Edit Transcribed Date: 06/13/2024 [...] Signed Date: 06/13/2024 09:29 ET Workstation ID: [id number] Transcribed By: Self Edit Transcribed Date: 06/13/2024 08:22 ET Lenny Irving MD IM NM PROCEDURES Final Result from Last 3 Months Insurance MEDICARE MEDICAID - [place] Care Teams Patternmaker Relationship Specialty Start Date End Date Bc Hunter [address] [place] [id number] PCP - General Internal Medicine 04/13/24
--- OUTSIDE RECORDS SUMMARY | 2024-08-07 11:59 | XMS_ITS | Encounter Summary ---
Author Organization [employer] Address 75 [facility] 7 [place] [address] Care Team Providers Care Barrel Charrer Name Role Phone Bc Hunter MD Primary Care Prov ider Encounter Details Date Type Department Care Team (Late st Contact Info) Description 09/20/2023 Orders Only [facility] CHC MED & PEDS [address] [place], [place] [phone] Bc Hunter MD 505 [place] [address] Social History Tobacco Use Types Packs/Day Years [...] 11:15 AM EDT Office Visit [facility] MED & PEDS [address] [place] [address] Bc Hunter MD 505 [place] [address] documented as of this encounter Visit Diagnoses Not on filedocumented in this encounter Additional Health Concerns Assessment Noted Time PHQ-9 Depression Total Score: 0 07/11/19 23 11:26 AM EDT documented as of this encounter Care Teams Barrel Charrer Relationship Specialty Start Date End Date Bc Hunter MD [address] [place] [address] PCP - General Internal Medicine 01/03/19 documented as of this encounter
--- OUTSIDE RECORDS SUMMARY | 2024-08-07 11:59 | XMS_ITS | Encounter Summary ---
Author Organization [employer] Address 75 [facility] 7t [place] [address] Care Team Providers Care Peoplesoft Developer Name Role Phone Bc Hunter MD Primary Care Prov ider Reason for Visit * Reason Comments Med Change Request Encounter Details Date Type Department Care Team ([facility] Contact Info) Description 07/19/2023 Refill [facility] CHC MED & PEDS [address] [place] [address] Oralia Mazariegos FNP 505 [place] [address] Social History Tobacco Use Types Packs/Day Years [...] [facility] [address] [place] [address] Bc Hunter MD 505 [place] [address] documented as of this encounter Visit Diagnoses Not on filedocumented in this encounter Additional Health Concerns Assessment Noted Time PHQ-9 Depression Total Score: 0 07/11/19 23 11:26 AM EDT documented as of this encounter Care Teams Peoplesoft Developer Relationship Specialty Start Date End Date Bc Hunter MD 505 [place] [address] PCP - General Internal Medicine 01/03/19 documented as of this encounter
--- OUTSIDE RECORDS SUMMARY | 2024-08-07 11:59 | XMS_ITS | Encounter Summary ---
Author Organization [employer] Address 75 [facility] 7 [place] [address] Care Team Providers Care Computer Systems Auditor Name Role Phone Bc Hunter MD Primary Care Prov ider Reason for Visit * Reason Comments Med Refill Encounter Details Date Type Department Care Team ([facility] st Contact Info) Description 08/06/2024 Refill [facility] MEDICINE [address] [place] [address] Bc Hunter MD 505 [place], [place] [phone] Social History Tobacco Use Types Packs/Day Years [...] Description 10/02/2024 11:15 AM EDT Office Visit [facility] CHC MED & PEDS [address] [place] [address] Bc Hunter MD 505 [place] [address] documented as of this encounter Visit Diagnoses Not on filedocumented in this encounter Additional Health Concerns Assessment Noted Time PHQ-9 Depression Total Score: 0 09/30/19 24 11:02 AM EDT documented as of this encounter Care Teams Computer Systems Auditor Relationship Specialty Start Date End Date Bc Hunter MD [address] [place] [address] PCP - General Internal Medicine 01/03/19 documented as of this encounter
--- OUTSIDE RECORDS SUMMARY | 2024-08-07 11:59 | XMS_ITS | Encounter Summary ---
Author Organization [employer] Address 75 [facility] 7 [place] [address] Care Team Providers Care Hand Engraver Name Role Phone Bc Hunter MD Primary Care Prov ider Reason for Visit * Reason Onset Date Comments Referral 12/06/2023 Encounter Details Date Type Department Care Team ([facility] st Contact Info) Description 12/06/2023 Telephone [facility] MEDICINE [address] [place] [address] Bc Hunter MD 505 [place], [place] [phone] Referral Social History Tobacco Use Types Packs/Day [...] to be seen by Sarkis in the [place] location ifpossible documented in this encounter Plan of Treatment Upcoming Encounters Date Type Department Care Team (Late st Contact Info) Description 10/02/2024 11:15 AM EDT Office Visit [facility] CHC MED & PEDS 505 [place] [address] Bc Hunter MD 505 [place] [address] documented as of this encounter Visit Diagnoses Not on filedocumented in this encounter Additional Health Concerns Assessment Noted Time PHQ-9 Depression Total Score: 0 09/30/19 24 11:02 AM EDT documented as of this encounter Care Teams Hand Engraver Relationship Specialty Start Date End Date Bc Hunter MD [address] [place] [address] PCP - General Internal Medicine 01/03/19 documented as of this encounter
--- OUTSIDE RECORDS SUMMARY | 2024-08-07 11:59 | XMS_ITS | Encounter Summary ---
Author Organization [employer] Address 75 [facility] 7t [place] [address] Care Team Providers Care Stove Fitter Name Role Phone Bc Hunter MD Primary Care Prov ider Encounter Details Date Type Department Care Team ([facility] st Contact Info) Description 08/07/2024 Orders Only GENERIC EXTERNAL DATA DEPARTMENT Provider, [...] Description 10/02/2024 11:15 AM EDT Office Visit [facility] MED & PEDS 505 [place] [address] Bc Hunter MD 505 [place] [address] documented as of this encounter Procedures Procedure Name Priority Date/Time Associated Diagnosis Comments PROTHROMBIN TIME WHOLE BLD POC Routine 08/07/2024 11:18 AM EDT ~PT, ~INR - ANTI COAG CLINIC Routine 08/07/2024 11:18 AM EDT documented in this encounter Results * (ABNORMAL) PROTHROMBIN TIME WHOLE BLD POC (08/07/2024 11:18 AM EDT) Protime 22.2(H) 11.1 - 13.5 sec [facility] 08/07/2024 11:1 8 AM EDT 08/07/2024 11:19 AM EDT us Generic External Data Provider LAB BLOOD ORDERAB LES Final Result [facility] [address] [place] [address] [phone] * (ABNORMAL) ~PT, ~INR - ANTI COAG CLINIC (08/07/2024 11:18 AM EDT) Prothrombin Time INR 1.8(H) 0.9 - 1.1 [facility] Comment:METER #: [id number] TERNATIONAL NORMALIZED RATIO (INR) REFERENCE RANGES Reference RangeFor patients not on anticoagulant therapy: 0.9 - 1.1INR ranges for oral anticoagulanttherapy:For prevention and treatment of venous thrombosis and pulmonary embolism: 2.0 - 3.0For acute myocardial infarction with aspirin therapy: 2.0 - 3.0For acute myocardial infarction without aspirin therapy: 3.0 - 4.0For patients with mechanical prosthetic heart valves: 2.5 - 3.5 08/07/2024 11:1 8 AM EDT 08/07/2024 11:19 AM EDT us Generic External Data Provider LAB BLOOD ORDERAB LES Final Result [facility] [address] [place] [address] [phone] documented in this encounter Visit Diagnoses Not on filedocumented in this encounter Additional Health Concerns Assessment Noted Time PHQ-9 Depression Total Score: 0 09/30/19 24 11:02 AM EDT documented as of this encounter Care Teams Stove Fitter Relationship Specialty Start Date End Date Bc Hunter MD [address] [place] [address] PCP - General Internal Medicine 01/03/19 documented as of this encounter
--- OUTSIDE RECORDS SUMMARY | 2024-08-07 11:59 | XMS_ITS | Encounter Summary ---
Author Organization [facility] Address [address] [place] [address] Phone Care Team Providers Care Phone Operator Name Role Phone Bc Yates Primary Care Provider [phone] Reason for Visit * Reason Comments Med Refill Encounter Details Date Type Department Care Team (Late st Contact Info) Description 01/13/2022 Refill [facility] [address] [place] [address] Trever Lopez MD [address] [facility] [address] [place] [address] Social History Tobacco Use Types [...] Visit [facility] [address] [place] [address] Trever Lopez MD [address] [facility] [address] [place] [address] documented as of this encounter Visit Diagnoses Not on filedocumented in this encounter Care Teams Phone Operator Relationship Specialty Start Date End Date Bc Yates PCP - General Internal Medicine 10/05/22 documented as of this encounter
--- OUTSIDE RECORDS SUMMARY | 2024-08-07 11:59 | XMS_ITS | Encounter Summary ---
Author Organization [facility] Address [address] [place] [address] Phone Care Team Providers Care Clinical Pharmacy Manager Name Role Phone Bc Yates Primary Care Provider [phone] Encounter Details Date Type Department Care Team (Late st Contact Info) Description 05/26/2021 Documentation Only [facility] [address] [place] [address] Trever Lopez MD [address] [place] [address] [place] [address] Social History Tobacco Use Types [...] Visit [facility] [address] [place] [address] Trever Lopez MD [address] [place] [address] [place] [address] documented as of this encounter Visit Diagnoses Not on filedocumented in this encounter Care Teams Clinical Pharmacy Manager Relationship Specialty Start Date End Date Bc Yates PCP - General Internal Medicine 10/05/22 documented as of this encounter
--- OUTSIDE RECORDS SUMMARY | 2024-08-07 11:59 | XMS_ITS | Clinical Summary ---
Author Organization [facility] [place], Address [address] [place] [address] [place] [address] Phone Care Team Providers Care Cytopathologist Name Role Phone YatesBc Primary Care Provider Allergies No known active allergies Medications D3-50 1.25 MG (80660 UT) capsule TAKE 1 CAPSULE BY MOUTH [...] Telephone [facility] [place], [address] [place] [address] Sasha Bhatt from Last 3 [...] Visit [facility] [place], [address] [place] [phone] Trever Lopez MD [address] [facility] [address] [place] [phone] Health Maintenance Due Date Last Done Comments [...] topic Insurance Medicare Medicaid [place] Care Teams Cytopathologist Relationship Specialty Start Date End Date Bc Yates: [id number] PCP - General Internal Medicine 10/05/22
--- OUTSIDE RECORDS SUMMARY | 2024-08-07 11:59 | XMS_ITS | Encounter Summary ---
Author Organization [employer] Address [address] [place] [address] [place] [address] Care Team Providers Care Pin Attacher Name Role Phone Bc Hunter MD Primary Care Prov ider Reason for Visit * Reason Onset Date Comments Med Refill 09/21/2022 Encounter Details Date Type Department Care Team ([facility] st Contact Info) Description 09/21/2022 Telephone [facility] MED & PEDS [address] [place] [address] Bc Hunter MD [address] [place] [address] Med Refill Social History Tobacco Use Types [...] 09/23/2022 8:28 AM EDT Pt managed by [facility] coumadin clinic. Last INR of 3.1 noted 09/17/22. Will forward request for Rx to covering provider to review. * Telephone Encounter - Ping Nettles - 09/21/2022 10:39 AM EDT Tc from pt requesting med refill on Warfarin 1 mg tablet [id number] - [place], [place] - [address] [facility] Please sent to documented in this encounter Plan of Treatment Upcoming Encounters Date Type Department Care Team (Late st Contact Info) Description 10/02/2024 11:15 AM EDT Office Visit [facility] MED & PEDS [address] [place] [address] Bc Hunter MD [address] [place] [address] documented as of this encounter Visit Diagnoses Diagnosis History of Coumadin therapy- Primary S/P aortic valve replacement Heart valve replaced by other means documented in this encounter Additional Health Concerns Assessment Noted Time PHQ-9 Depression Total Score: 0 07/11/19 23 11:26 AM EDT documented as of this encounter Care Teams Pin Attacher Relationship Specialty Start Date End Date Bc Hunter MD [address] [place] [address] PCP - General Internal Medicine 01/03/19 documented as of this encounter
--- OUTSIDE RECORDS SUMMARY | 2024-08-07 11:59 | XMS_ITS | Encounter Summary ---
Author Organization [employer] Address [address] [facility] 7 [place] [address] Care Team Providers Care Web Editor Name Role Phone Bc Hunter MD Primary Care Prov ider Reason for Visit * Reason Onset Date Comments Nurse Triage 2024 Encounter Details Date Type Department Care Team ([facility] st Contact Info) Description 2024 Telephone [facility] MEDICINE [address] [place] [address] Bc Hunter MD [address] [place], [place] [phone] Nurse Triage Social History Tobacco Use Types [...] pt to triage, spoke to group exercise instructor, ANTONIO. pt was seen on 06/14 by [facility] [place] pulmonology on 06/14 and due to some [...] 2024 3:49 PM EDT Tc from Patient CLAIM AGENT to report ED visit on : Date: 06/14 Hospital: [facility] [place] [place] Seen for: pneumonia Symptomatic Yes *if yes message should go to Triage Patient advised will forward to team nurse for follow up [phone] pt documented in this encounter Plan of Treatment Upcoming Encounters Date Type Department Care Team (Late st Contact Info) Description 10/02/2024 11:15 AM EDT Office Visit [facility] MED & PEDS [address] [place] [address] Bc Hunter MD [address] [place] [address] documented as of this encounter Visit Diagnoses Not on filedocumented in this encounter Additional Health Concerns Assessment Noted Time PHQ-9 Depression Total Score: 0 09/30/19 24 11:02 AM EDT documented as of this encounter Care Teams Web Editor Relationship Specialty Start Date End Date Bc Hunter MD [address] [place] [address] PCP - General Internal Medicine 01/03/19 documented as of this encounter
--- OUTSIDE RECORDS SUMMARY | 2024-08-07 11:59 | XMS_ITS | Encounter Summary ---
Author Organization [employer] Address [address] [facility] 7 [place] [address] Care Team Providers Care Bowstring Maker Name Role Phone Bc Hunter MD Primary Care Prov ider Reason for Visit * Reason Onset Date Comments Nurse Triage 05/26/2023 Encounter Details Date Type Department Care Team ([facility] st Contact Info) Description 05/26/2023 Telephone [facility] MEDICINE [address] [place] [address] Bc Hunter MD [address] [place], [place] [phone] Nurse Triage Social History Tobacco Use Types [...] AM EST Triage call Pt is in assisted, Krystin Sepulveda taking call and consent is signed by Pt for staff to speak . Pt has had some changes. Pt decided to stop all psyche medications and MD Ward Myers,discontinued them. (Stop date unknown) Pt has since that time decreased eating, appetite is poor. Pt weight yesterday at client technologies analyst apt is 173lbs. Pt was said to be around 202lbs regularly. Pt clothes are fitting very loosely now. Pt also wanted to stop coumadin but, client technologies analyst instructed that wouldn't be good to do [...] acuity questions The caller accepted this outcome [phone] documented in this encounter Plan of Treatment Upcoming Encounters Date Type Department Care Team (Late st Contact Info) Description 10/02/2024 11:15 AM EDT Office Visit [facility] MED & PEDS [address] [place] [address] Bc Hunter MD [address] [place] [address] documented as of this encounter Visit Diagnoses Not on filedocumented in this encounter Additional Health Concerns Assessment Noted Time PHQ-9 Depression Total Score: 0 07/11/19 23 11:26 AM EDT documented as of this encounter Care Teams Bowstring Maker Relationship Specialty Start Date End Date Bc Hunter MD [address] [place] [address] PCP - General Internal Medicine 01/03/19 documented as of this encounter
--- OUTSIDE RECORDS SUMMARY | 2024-08-07 11:59 | XMS_ITS | Encounter Summary ---
Author Organization [employer] Address [address] [place] [address] 7 [place] [address] Care Team Providers Care Retirement Specialist Name Role Phone Bc Hunter MD Primary Care Prov ider Encounter Details Date Type Department Care Team (Late st Contact Info) Description 07/16/2022 Telephone [facility] CHC MED & PEDS [address] [place] [address] Bc Hunter MD [address] [place] [address] Social History Tobacco Use Types Packs/Day Years [...] swelling. Right side. Please contact Lori @ [phone] if additional labs are requested by PCP [...] swelling. Right side. Please contact Lori @ [phone] if additional labs are requested by PCP and will have them done attime of visit tomorrow. Please update PCP with above and follow with Lori as indicated. Triage Nurse will call patient at this time in regards to scrotal swelling. documented in this encounter Plan of Treatment Upcoming Encounters Date Type Department Care Team ([facility] st Contact Info) Description 10/02/2024 11:15 AM EDT Office Visit [facility] CH[facility] MED & PEDS [address] [place] [address] Bc Hunter MD [address] [place] [address] documented as of this encounter Visit Diagnoses Not on filedocumented in this encounter Additional Health Concerns Assessment Noted Time PHQ-9 Depression Total Score: 0 07/11/19 23 11:26 AM EDT documented as of this encounter Care Teams Retirement Specialist Relationship Specialty Start Date End Date Bc Hunter MD [address] [place] [address] PCP - General Internal Medicine 01/03/19 documented as of this encounter
--- OUTSIDE RECORDS SUMMARY | 2024-08-07 11:59 | XMS_ITS | Encounter Summary ---
Author Organization [employer] Address [address] [facility] 7 [place] [address] Care Team Providers Care Relay Mechanic Name Role Phone Bc Hunter MD Primary Care Prov ider Reason for Visit * Reason Onset Date Comments Call Back Request 07/05/2024 Encounter Details Date Type Department Care Team ([facility] st Contact Info) Description 07/05/2024 Telephone [facility] MEDICINE [address] [place] [address] Bc Hunter MD [address] [place], [place] [phone] Call Back Request Social History Tobacco Use [...] 12:18 PM EDT Tc from Kimberly with [facility] [place] a call back regarding the pt Lovenox. Contact Kimberly at [phone] documented in this encounter Plan of Treatment Upcoming Encounters Date Type Department Care Team (Late st Contact Info) Description 10/02/2024 11:15 AM EDT Office Visit [facility] CH[facility] MED & PEDS [address] [place] [address] Bc Hunter MD [address] [place] [address] documented as of this encounter Visit Diagnoses Not on filedocumented in this encounter Additional Health Concerns Assessment Noted Time PHQ-9 Depression Total Score: 0 09/30/19 24 11:02 AM EDT documented as of this encounter Care Teams Relay Mechanic Relationship Specialty Start Date End Date Bc Hunter MD [address] [place] [address] PCP - General Internal Medicine 01/03/19 documented as of this encounter
--- OUTSIDE RECORDS SUMMARY | 2024-08-07 11:59 | XMS_ITS | Encounter Summary ---
Author Organization [employer] Address [address] [place] [address] Care Team Providers Care Cvir Tech Name Role Phone Bc Hunter MD Primary Care Prov ider Encounter Details Date Type Department Care Team (Late Contact Info) Description 02/24/2022 Telephone [facility] MEDICINE [address] [place], [place] [phone] Bc Hunter MD [address] [place], [place] [phone] Social History Tobacco Use Types Packs/Day Years [...] 11:15 AM EDT Office Visit [facility] CHC MED & PEDS [address] [place], [place] [phone] Bc Hunter MD [address] [place], [place] [phone] documented as of this encounter Visit Diagnoses Not on filedocumented in this encounter Care Teams Cvir Tech Relationship Specialty Start Date End Date Bc Hunter MD [address] [place], [place] [phone] PCP - General Internal Medicine 01/03/19 documented as of this encounter
--- OUTSIDE RECORDS SUMMARY | 2024-08-07 11:59 | XMS_ITS | Encounter Summary ---
Author Organization [employer] Address [address] [place] [address] Care Team Providers Care Check Examiner Name Role Phone Bc Hunter MD Primary Care Prov ider Reason for Visit * Reason Comments Med Refill Encounter Details Date Type Department Care Team (Late Contact Info) Description 10/25/2022 Refill [facility] MED & PEDS [address] [place] [address] Bc Hunter MD [address] [place] [address] Social History Tobacco Use Types Packs/Day Years [...] Description 10/02/2024 11:15 AM EDT Office Visit [facility] MED & PEDS [address] [place], [place] [phone] Bc Hunter MD [address] [place] [address] documented as of this encounter Visit Diagnoses Not on filedocumented in this encounter Additional Health Concerns Assessment Noted Time PHQ-9 Depression Total Score: 0 07/11/19 23 11:26 AM EDT documented as of this encounter Care Teams Check Examiner Relationship Specialty Start Date End Date Bc Hunter MD [address] [place] [address] PCP - General Internal Medicine 01/03/19 documented as of this encounter
--- OUTSIDE RECORDS SUMMARY | 2024-08-07 11:59 | XMS_ITS | Clinical Summary ---
Author Organization [employer] Address [address] [place] [address] 7t [place] [address] Care Team Providers Care Metal Drill Operator Name Role Phone Bc Hunter MD [...] by mouth 2 times daily. 020 Active ketoconazole (Nizoral) 2 % shampooIndication s:Seborrheic [...] WITH FOOD 90 tablet 3 024 Active albuterol 108 (90 Base) MCG/ACT [...] EVENING MEAL. 180 tablet 1 025 Active mometasone (Elocon) 0.1 % lotion Apply topically Once per day. Please provide scalp solution 60 mL 024 2024 dicyclomine (Bentyl) 20 MG tabletIndications :Irritable bowel syndrome with diarrhea TAKE 1 TABLET BY MOUTH BEFORE BREAKFAST AND BEFORE EVENING MEAL. 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 Plan to bridge pt from Eliquis to Coumadin. May DC Eliquis once Coumadin therapeutic Coumadin dosinmg on Wednesday and Wednesday 4mg all other days of the week Plan: [facility] to reach out to snf to schedule INR check and re-start on [...] Other schizophrenia 09/22/2011 Overview (07/20/2023): Living in [facility] Assessment & Plan (07/30/2023 12:17 AM EDT): [...] Encounters Date Type Department Care Team Description 08/07/2024 Orders Only GENERIC EXTERNAL DATA DEPARTMENT Provider, Generic External Data 08/06/2024 Refill [facility] [address] [place] [phone] Bc Hunter MD 07/24/2024 Orders Only GENERIC EXTERNAL DATA DEPARTMENT Provider, Generic External Data 07/20/2024 Orders Only GENERIC EXTERNAL DATA DEPARTMENT Provider, Generic External Data 07/18/2024 Refill [facility] [address] [place] [address] Bc Hunter MD Irritable bowel syndrome with diarrhea 07/06/2024 Telephone [facility] [address] [place] [address] Bc Hunter MD Medication Question 07/05/2024 Telephone [facility] [address] [place] [phone] Bc Hunter MD Call Back Request (/) 07/05/2024 Telephone [facility] [address] [place] [address] Bc Hunter MD Call Back Request 07/05/2024 Orders Only GENERIC EXTERNAL DATA DEPARTMENT Provider, Generic External Data 07/05/[address] [address] Bc Hunter MD Lab Orders 07/05/2024 Refill [facility] [address] [place] [address] Bc Hunter MD Gastroesophageal reflux disease without esophagitis 07/03/2024 11:15 AM EDT Office Visit [facility] [address] [place] [address] Zafar Richard MD Multifocal pneumonia (Primary Dx); Acquired hypothyroidism 07/03/2024 Travel 06/29/2024 Telephone [facility] [address] [place] [address] 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, 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 Question 06/29/2024 Orders Only GENERIC EXTERNAL DATA DEPARTMENT Provider, Generic External Data 06/28/2024 Telephone [facility] [address] [place] [address] Bc Hunter MD Nurse Triage 06/27/2024 Orders Only [facility] External Provider, [facility] 06/23/[address] [address] Bc Hunter MD Call Back Request 06/19/2024 1:00 PM EDT Office Visit [facility] [address] [place] [address] Zafar Richard MD Mild chronic obstructive pulmonary disease (CMS/HCC) (Primary Dx); Solitary lung nodule; Dyspnea on exertion; Smoking 06/19/2024 Travel [address] [address] Bc Hunter MD Nurse Triage 06/13/2024 Orders Only GENERIC EXTERNAL DATA DEPARTMENT Provider, Generic External Data 06/04/[address] [address] Bc Hunter MD 06/01/2024 Orders Only GENERIC EXTERNAL DATA DEPARTMENT Provider, Generic External Data 05/21/2024 Orders Only [facility] [address] [place] [address] Bc Hunter MD Onychomycosis (Primary Dx) 05/21/2024 Refill [facility] [address] [place] [address] Bc Hunter MD 05/19/2024 Orders Only GENERIC [...] Description 10/02/2024 11:15 AM EDT Office Visit [facility] [address] [place], [place] [phone] YatesBc Ledezma MD [address] [place], [place] [phone] Health Maintenance Due Date Last Done Comments [...] [facility]INIC Routine 08/07/2024 11:18 AM EDT PROTHROMBIN TIME WHOLE BLD POC Routine 07/24/2024 [...] COAG CLINIC Routine 05/12/2024 10:43 AM EST LIPID PANEL, STANDARD Routine 05/06/2023 11:48 AM EST Hyperlipemia, mixed HEPATITIS C AB W/REFL TO HCV RNA, QN, PCR Routine 07/10/2022 11:31 AM EDT S/P aortic valve replacement Pre-op evaluation from Last 3 Months or Most Recently Relevant to Health Maintenance Results * (ABNORMAL) PROTHROMBIN TIME WHOLE BLD POC (08/07/2024 11:18 AM EDT) Only the most recent of9 resultswithin the time period is included. Protime 22.2(H) 11.1 - 13.5 sec [facility] 08/07/2024 11:1 8 AM EDT 08/07/2024 11:19 AM EDT Generic External Data Provider LAB BLOOD ORDERAB LES Final Result Performing Organization Address City/[facility]/ZIP Co de Phone Number [facility] [address] [place] [address] [phone] * (ABNORMAL) ~PT, ~INR - ANTI COAG CLINIC (08/07/2024 11:18 AM EDT) Only the most recent of9 resultswithin the time period is included. Prothrombin Time INR 1.8(H) 0.9 - 1.1 [facility] Comment:METER #: [id number] TERNATIONAL NORMALIZED RATIO (INR) REFERENCE RANGES Reference [...] 8 AM EDT 08/07/2024 11:19 AM EDT [employer] External Data Provider LAB BLOOD ORDERAB LES Final Result Performing Organization Address City/[facility] Co de Phone Number [facility] [address] [place] [address] [phone] * XR Chest 2 Views (06/27/2024 12:23 PM EDT) Anatomical Region Laterality Modality Chest Radiographic Kelly ging 06/27/2024 12:2 3 PM EDT Narrative 06/27/2024 1:08 PM EDT ? [facility] ?[address] ? [place] [address] ?XRay Report ? Signed ? Patient: Chris Zaragoza ?MR#: [id number] ? : 1950 ?Acct:[id number] ? Age/Sex: 74 / M ?ADM Date: 06/27/24 ? Loc: HO.[facility]X ? Attending Dr: Yasmeen Guerra PA-C ? Ordering Physician: Yasmeen Guerra PA-C ?? Date of Service: 06/27/24 ?? Procedure(s): XR chest 2V ?? Accession Number(s): [id number] ? cc: Bc Hunter MD; Yasmeen Guerra [...] DD/ 1223 ? TD/TT: 06/27/24 1223 ? Room Service Clerk: ? Procedure Note Donotuseinterpreter, Image - 06/27/2024 [facility] [place] [address] XRay Report Signed Patient: Amos Zaragoza#: [id number] : 3Acct:[id number] Age/Sex: 74 / MADM Date: 06/27/24 [facility] Dr: Yasmeen Guerra PA-C Ordering Physician: Yasmeen Guerra PA-C Date of Service: 06/27/24 Procedure(s): XR chest 2V Accession Number(s): [id number] cc: Bc Hunter MD; Yasmeen Guerra PA-C [...] 06/27/24 1304 DD/ 1223 TD/TT: 06/27/24 1223 Room Service Clerk: [facility] External Provider IMG XR PROCEDURES Final Result * PET/CT FDG Skull Base To Mid-Thigh (06/07/2024 3:59 PM EDT) Anatomical Region Laterality Modality Computed Tomogra phy Historical Provider IMRene CT PROCEDURES Final R esult * Lipid Panel, Standard (05/06/2023 11:48 AM EST) Triglycerides 61 <150 mg/dL [facility] Comment:Desirable Triglyceri de: less than 150 mg/dLBorderline High Triglyceride 150-199 mg/dLHigh Triglyceride: 200-499 mg/dLVery High Triglyceride: greater than or equal to 5OO mg/dL Cholesterol 166 <200 mg/dL [facility] Comment:Desirable Cholestero l: less than 200 mg/dLBorderline High Cholesterol: 200-239 mg/dLHigh Cholesterol: greater than 239 mg/dL LDL Cholesterol Calculated 94 <100 mg/dL [facility] Comment:Desirable LDL: less than 100 mg/dLNear Optimal/Above Optimal LDL: 110- 129 mg/dLBorderline High LDL: 130-159 mg/dLHigh LDL: 160-189 mg/dLVery High LDL: greater than or equal to 190 mg/dL HDL Cholesterol 60 >40 mg/dL [facility] Comment:Desirable HDL: great er than 40 mg/dL Note: This HDL assay may give artificially low results in patients with liver disease. Blood Venous blood specimen / Unknown 05/06/2023 11:48 AM EST 05/06/2023 2:09 PM EST Bc Rascon MD LAB BLOOD ORDERABL ES Final Result [facility] [address] [place] [phone] * Hepatitis C Antibody with Reflex to HCV, RNA, Quantitative, Real-Time PCR (07/10/2022 11:31 AM EDT) Hepatitis C Antibody NON-REACT DEZ NON-REACT DEZ [facility] eSnipst Index 0.09 <1.00 [facility] Comment: HCV antibody was non-reactive. There is no laboratory evidence of HCV infection. In most cases, no further action is required. However, if recent HCV exposure is suspected, a test for HCV RNA (test code 33044) is suggested. For additional information please refer to http://education.Directed Edge/faq/RFH07l7 (This link is being provided for informational/ educational purposes only.) Blood Venous blood specimen / Unknown 07/10/2022 11:31 AM EDT 07/10/2022 11:32 AM EDT Narrative [facility] - 07/11/2022 5:06 AM EDT FASTING:NO FASTING: NO Bc Rascon MD LAB BLOOD ORDERABL ES Final Result [facility] [address], [place] [address] [facility] [address] [place] [address] from Last 3 Months or Most Recently Relevant to Health Maintenance Insurance MEDICARE [facility] STANDARD Care Teams Metal Drill Operator Relationship Specialty Start Date End Date YatesBc Ledezma MD [address] [place] [address] PCP - General Internal Medicine 01/03/19
--- OUTSIDE RECORDS SUMMARY | 2024-08-07 11:59 | XMS_ITS | Encounter Summary ---
Author Organization [employer] Address [address] [place] [address] 7 [place] [address] Care Team Providers Care Security Incident Response Engineer Name Role Phone Bc Hunter MD Primary Care Prov ider Encounter Details Date Type Department Care Team (Late Contact Info) Description 05/18/2022 Orders Only [facility] [address] [place] [address] Bc Hunter MD [address] [place], [place] [phone] S/P aortic valve replacement Social History Tobacco [...] 11:15 AM EDT Office Visit [facility] [address] [place] [address] Bc Hunter MD [address] [place], [place] [phone] documented as of this encounter Visit Diagnoses Diagnosis S/P aortic valve replacement Heart valve replaced by other means documented in this encounter Care Teams Security Incident Response Engineer Relationship Specialty Start Date End Date Bc Hunter MD [address] [place] [phone] PCP - General Internal Medicine 01/03/19 documented as of this encounter
--- OUTSIDE RECORDS SUMMARY | 2024-08-07 11:59 | XMS_ITS | Encounter Summary ---
Author Organization [employer] Address [address] [facility] 7 [place] [address] Care Team Providers Care Clinical Medical Assistant Name Role Phone Bc Hunter MD Primary Care Prov ider Reason for Visit * Reason Onset Date Comments Med Refill 05/12/2022 Encounter Details Date Type Department Care Team ([facility] st Contact Info) Description 05/12/2022 Telephone [facility] [address] [place] [address] Bc Hunter MD [address] [place] [address] Med Refill Social History Tobacco Use Types [...] Description 10/02/2024 11:15 AM EDT Office Visit [facility] [address] [place] [address] Bc Hunter MD [address] [place] [address] documented as of this encounter Visit Diagnoses Not on filedocumented in this encounter Care Teams Clinical Medical Assistant Relationship Specialty Start Date End Date Bc Hunter MD [address] [place] [address] PCP - General Internal Medicine 01/03/19 documented as of this encounter
--- OUTSIDE RECORDS SUMMARY | 2024-08-07 11:59 | XMS_ITS | Encounter Summary ---
Author Organization [employer] Address [address] [facility] 7 [place] [address] Care Team Providers Care Paper Control Clerk Name Role Phone Bc Hunter MD Primary Care Prov ider Reason for Visit * Reason Onset Date Comments Med Refill 05/15/2022 Encounter Details Date Type Department Care Team ([facility] st Contact Info) Description 05/15/2022 Telephone [facility] [address] [place] [address] Bc Hunter MD [address] [place] [address] Med Refill Social History Tobacco Use Types [...] 11:54 AM EST Tc from Amy with [facility] requesting some kinds of specific directions for warfarin (Coumadin) 2 MG tablet If any question please contact amy at [phone] documented in this encounter Plan of Treatment Upcoming Encounters Date Type Department Care Team (Late st Contact Info) Description 10/02/2024 11:15 AM EDT Office Visit [facility] [address] [place] [address] Bc Hunter MD [address] [place] [address] documented as of this encounter Visit Diagnoses Not on filedocumented in this encounter Care Teams Paper Control Clerk Relationship Specialty Start Date End Date Bc Hunter MD [address] [place] [address] PCP - General Internal Medicine 01/03/19 documented as of this encounter
== END 2024-08-07 11:30 | disposition home or self-care (01) ==
LOC: HO.ACS 11:14
PROVIDERS: PCP Internal Medicine; Visit Provider Internal Medicine Medical Oncology
DX: Z79.01 Long term (current) use of anticoagulants (principal)

== ENCOUNTER → 2024-08-07 11:14 | Outpatient (BNVA) | payer MEDICARE, MEDICAID, SELFPAY | PROVIDERS: PCP Internal Medicine; Visit Provider Internal Medicine Medical Oncology | DX: Z95.2 Presence of prosthetic heart valve (principal); Z79.01 Long term (current) use of anticoagulants; Z51.81 Encounter for therapeutic drug level monitoring | CPT/HCPCS: 85610; 99211 ==

== ENCOUNTER 2024-08-21 10:48 | Outpatient (AMB) | payer MEDICARE, MEDICAID, SELFPAY ==
[2024-08-21 10:56] LABS: Prothrombin Time Whole Bld POC 21.2 sec (11.1-13.5); ~PT, ~INR - Anti Coag Clinic 1.8 (0.9-1.1)
--- NOTE | 2024-08-21 11:03 | MHC.OFFVISCO ---
Intake Intake Visit Reasons: Anticoagulation Allergies No Known Allergies Allergy (Mild, Verified 08/21/24 10:49) NOT APPLICABLE Medication List - Last Reconciled 08/21/24 by Raissa Hull RN albuterol sulfate 90 mcg/actuation (Ventolin HFA) 1 puff inhalation RQ4H PRN amantadine HCl 100 mg PO BID atorvastatin 40 mg PO BEDTIME carbamide peroxide (Debrox) 5 DROPS EACH EAR EVERY 2 WEEKS cholecalciferol (vitamin D3) (Vitamin D3) 25 mcg PO QAM dicyclomine 20 mg PO BID divalproex ER 1,000 mg PO BEDTIME ferrous sulfate 324 mg PO DAILY [FLUCINOLONE TOPICAL DAILY ] levothyroxine 25 mcg PO DAILY@0600 loratadine 10 mg PO DAILY magnesium oxide 400 mg PO BIDPC multivitamin with folic acid 400 mcg (Daily-Stanley (with folic acid)) 1 tab PO DAILY pantoprazole 40 mg PO BID revefenacin (Yupelri) 175 mcg (3 mL) inhalation DAILY 30 days risperidone (Risperdal) 4 mg PO BID tamsulosin 0.4 mg PO BEDTIME valproic acid 1000mg orally daily; warfarin See Protocol 2 mg orally 4MG DAILY OR DIRECTED; 4MG DAILY OR DIRECTED Nursing Note INR: 1.8 OUT OF therapeutic range Medications and supplements reviewed No changes in health, diet, medications, or supplements per pt - per child care assistant he may have eaten more chocolate than usual Denies any signs and symptoms of bleeding or bruising or clotting. 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
--- OUTSIDE RECORDS SUMMARY | 2024-08-21 11:57 | XMS_ITS | Encounter Summary ---
Author Organization [employer] Address [address] [facility] 7 [place] [address] Care Team Providers Care X Ray Service Technician Name Role Phone Bc Hunter MD Primary Care Prov ider Encounter Details Date Type Department Care Team (Late st Contact Info) Description 09/20/2023 Orders Only [facility] [address] [place], [place] [phone] Bc Hunter MD [address] [place] [address] Social History Tobacco Use Types Packs/Day Years [...] [facility] [address] [place] [address] Bc Hunter MD [address] [place] [address] documented as of this encounter Visit Diagnoses Not on filedocumented in this encounter Additional Health Concerns Assessment Noted Time PHQ-9 Depression Total Score: 0 07/11/19 23 11:26 AM EDT documented as of this encounter Care Teams X Ray Service Technician Relationship Specialty Start Date End Date Bc Hunter MD [address] [place] [address] PCP - General Internal Medicine 01/03/19 documented as of this encounter
== END 2024-08-21 11:08 | disposition home or self-care (01) ==
LOC: HO.ACS 10:48
PROVIDERS: PCP Internal Medicine; Visit Provider Internal Medicine Medical Oncology
DX: Z79.01 Long term (current) use of anticoagulants (principal)

== ENCOUNTER → 2024-08-21 10:48 | Outpatient (BNVA) | payer MEDICARE, MEDICAID, SELFPAY | PROVIDERS: PCP Internal Medicine; Visit Provider Internal Medicine Medical Oncology | DX: Z86.73 Personal history of transient ischemic attack (TIA), and cerebral infarction without residual deficits (principal); Z51.81 Encounter for therapeutic drug level monitoring; Z79.01 Long term (current) use of anticoagulants | CPT/HCPCS: 85610; 99211 ==

== ENCOUNTER 2024-08-28 11:08 | Outpatient (AMB) | payer MEDICARE, MEDICAID, SELFPAY ==
[2024-08-28 11:23] LABS: ~PT, ~INR - Anti Coag Clinic 2.8 (0.9-1.1)
--- NOTE | 2024-08-28 11:28 | MHC.OFFVISCO ---
Intake Intake Visit Reasons: Anticoagulation Allergies No Known Allergies Allergy (Mild, Verified 08/28/24 11:18) NOT APPLICABLE Medication List - Last Reconciled 08/28/24 by Nivia Beaver RN albuterol sulfate 90 mcg/actuation (Ventolin HFA) 1 puff inhalation RQ4H PRN amantadine HCl 100 mg PO BID atorvastatin 40 mg PO BEDTIME carbamide peroxide (Debrox) 5 DROPS EACH EAR EVERY 2 WEEKS cholecalciferol (vitamin D3) (Vitamin D3) 25 mcg PO QAM dicyclomine 20 mg PO BID divalproex ER 1,000 mg PO BEDTIME ferrous sulfate 324 mg PO DAILY [FLUCINOLONE TOPICAL DAILY ] levothyroxine 25 mcg PO DAILY@0600 loratadine 10 mg PO DAILY magnesium oxide 400 mg PO BIDPC multivitamin with folic acid 400 mcg (Daily-Stanley (with folic acid)) 1 tab PO DAILY pantoprazole 40 mg PO BID revefenacin (Yupelri) 175 mcg (3 mL) inhalation DAILY 30 days risperidone (Risperdal) 4 mg PO BID tamsulosin 0.4 mg PO BEDTIME valproic acid 1000mg orally daily; warfarin See Protocol 2 mg orally 4MG DAILY OR DIRECTED; 4MG DAILY OR DIRECTED Nursing Note INR: 2.8 in therapeutic range of 2-3 Medications and supplements reviewed No changes in health, diet, medications, or supplements, Denies any signs and symptoms of bleeding or bruising or clotting. Bleeding, bruising, clotting discussed Nutritional guidance given Dose: 4mg X 5 days and 2mg X 2 days (/) F/U INR: 2 weeks Patient verbalizes understanding of instructions given Anti-Coag Initial Assessment Social Hx Patient Tobacco Use Status: Refuse Tobacco use screen alcohol intake: never Coding Level of Care Code Est Patient Level 1 Diagnoses Current use of anticoagulant therapy Z79.01 Results AMB INR Fingerstick AMB INR Fingerstick 2.8 Last Edit by Nivia Beaver RN on 08/28/24 11:22 interface delay Assessment & Plan Assessment & Plan (1) Current use of anticoagulant therapy: Code(s): Z79.01 - bed bug exterminator (current) use of anticoagulants Category: Medical
--- OUTSIDE RECORDS SUMMARY | 2024-08-28 12:46 | XMS_ITS | Encounter Summary ---
Author Organization [employer] Address [address] [facility] 7 [place] [address] Care Team Providers Care Steamblaster Name Role Phone Bc Hunter MD Primary Care Prov ider Encounter Details Date Type Department Care Team (Late st Contact Info) Description 09/20/2023 Orders Only [facility] [address] [place], [place] [phone] Bc Hunter MD [address] [place] [address] Social History Tobacco Use Types Packs/Day Years [...] 11:15 AM EDT Office Visit [facility] [address] [place] [address] Bc Hunter MD [address] [place] [address] documented as of this encounter Visit Diagnoses Not on filedocumented in this encounter Additional Health Concerns Assessment Noted Time PHQ-9 Depression Total Score: 0 07/11/19 23 11:26 AM EDT documented as of this encounter Care Teams Steamblaster Relationship Specialty Start Date End Date Bc Hunter MD [address] [place] [address] PCP - General Internal Medicine 01/03/19 documented as of this encounter
== END 2024-08-28 11:27 | disposition home or self-care (01) ==
LOC: HO.ACS 11:08
PROVIDERS: PCP Internal Medicine; Visit Provider Internal Medicine Medical Oncology
DX: Z79.01 Long term (current) use of anticoagulants (principal)

== ENCOUNTER → 2024-08-28 11:08 | Outpatient (BNVA) | payer MEDICARE, MEDICAID, SELFPAY | PROVIDERS: PCP Internal Medicine; Visit Provider Internal Medicine Medical Oncology | DX: Z95.2 Presence of prosthetic heart valve (principal); Z79.01 Long term (current) use of anticoagulants; Z51.81 Encounter for therapeutic drug level monitoring | CPT/HCPCS: 85610; 99211 ==

== ENCOUNTER 2024-09-11 10:24 | Outpatient (AMB) | payer MEDICARE, MEDICAID, SELFPAY ==
[2024-09-11 10:33] LABS: Prothrombin Time Whole Bld POC 29.1 sec (11.1-13.5); ~PT, ~INR - Anti Coag Clinic 2.4 (0.9-1.1)
--- NOTE | 2024-09-11 10:38 | MHC.OFFVISCO ---
Intake Intake Visit Reasons: Anticoagulation Allergies No Known Allergies Allergy (Mild, Verified 09/11/24 10:23) NOT APPLICABLE Medication List - Last Reconciled 09/11/24 by Nivia Beaver RN albuterol sulfate 90 mcg/actuation (Ventolin HFA) 1 puff inhalation RQ4H PRN amantadine HCl 100 mg PO BID atorvastatin 40 mg PO BEDTIME carbamide peroxide (Debrox) 5 DROPS EACH EAR EVERY 2 WEEKS cholecalciferol (vitamin D3) (Vitamin D3) 25 mcg PO QAM dicyclomine 20 mg PO BID divalproex ER 1,000 mg PO BEDTIME ferrous sulfate 324 mg PO DAILY [FLUCINOLONE TOPICAL DAILY ] [id number]-kqkzvobky-zcaeocmz 200-62.5-25 mcg (Trelegy Ellipta) 1 inh inhalation DAILY levothyroxine 25 mcg PO DAILY@0600 loratadine 10 mg PO DAILY magnesium oxide 400 mg PO BIDPC multivitamin with folic acid 400 mcg (Daily-Stanley (with folic acid)) 1 tab PO DAILY pantoprazole 40 mg PO BID revefenacin (Yupelri) 175 mcg (3 mL) inhalation DAILY 30 days risperidone (Risperdal) 4 mg PO BID tamsulosin 0.4 mg PO BEDTIME valproic acid 1000mg orally daily; warfarin See Protocol 2 mg orally 4MG DAILY OR DIRECTED; 4MG DAILY OR DIRECTED Nursing Note INR: 2.4 in therapeutic range of 2-3 Medications and supplements reviewed No changes in health, diet, medications, or supplements, Denies any signs and symptoms of bleeding or bruising or clotting. Bleeding, bruising, clotting discussed Nutritional guidance given Dose: 4mg X 5 days and 2mg X 2 days(Tues & Wed) F/U INR: 2 weeks Patient verbalizes understanding of instructions given Anti-Coag Initial Assessment Social Hx Patient Tobacco Use Status: Refuse Tobacco use screen alcohol intake: never Coding Level of Care Code Est Patient Level 1 Diagnoses Current use of anticoagulant therapy Z79.01 Assessment & Plan Assessment & Plan (1) Current use of anticoagulant therapy: Code(s): Z79.01 - watermaster (current) use of anticoagulants Category: Medical
--- OUTSIDE RECORDS SUMMARY | 2024-09-11 11:37 | XMS_ITS | Encounter Summary ---
Author Organization [employer] Address [address] [facility] 7 [place] [address] Care Team Providers Care Sumac Tanner Name Role Phone Bc Hunter MD Primary Care Prov ider Encounter Details Date Type Department Care Team (Late st Contact Info) Description 09/20/2023 Orders Only [facility] [address] [place], [place] [phone] Bc Hunter MD [address] [place] [address] Social History Tobacco Use Types Packs/Day Years [...] [facility] [address] [place] [address] Bc Hunter MD [address] [place] [address] documented as of this encounter Visit Diagnoses Not on filedocumented in this encounter Additional Health Concerns Assessment Noted Time PHQ-9 Depression Total Score: 0 07/11/19 23 11:26 AM EDT documented as of this encounter Care Teams Sumac Tanner Relationship Specialty Start Date End Date Bc Hunter MD [address] [place] [address] PCP - General Internal Medicine 01/03/19 documented as of this encounter
== END 2024-09-11 10:42 | disposition home or self-care (01) ==
LOC: HO.ACS 10:24
PROVIDERS: PCP Internal Medicine; Visit Provider Internal Medicine Medical Oncology
DX: Z79.01 Long term (current) use of anticoagulants (principal)

== ENCOUNTER → 2024-09-11 10:24 | Outpatient (BNVA) | payer MEDICARE, MEDICAID, SELFPAY | PROVIDERS: PCP Internal Medicine; Visit Provider Internal Medicine Medical Oncology | DX: Z95.2 Presence of prosthetic heart valve (principal); Z79.01 Long term (current) use of anticoagulants; Z51.81 Encounter for therapeutic drug level monitoring | CPT/HCPCS: 85610; 99211 ==

== ENCOUNTER 2024-09-25 11:09 | Outpatient (AMB) | payer MEDICARE, MEDICAID, SELFPAY ==
[2024-09-25 11:17] LABS: Prothrombin Time Whole Bld POC 19.9 sec (11.1-13.5); ~PT, ~INR - Anti Coag Clinic 1.7 (0.9-1.1)
--- NOTE | 2024-09-25 11:30 | MHC.OFFVISCO ---
Intake Intake Visit Reasons: Anticoagulation Allergies No Known Allergies Allergy (Mild, Verified 09/25/24 11:09) NOT APPLICABLE Medication List - Last Reconciled 09/25/24 by Raissa Hull RN albuterol sulfate 90 mcg/actuation (Ventolin HFA) 1 puff inhalation RQ4H PRN amantadine HCl 100 mg PO BID atorvastatin 40 mg PO BEDTIME carbamide peroxide (Debrox) 5 DROPS EACH EAR EVERY 2 WEEKS cholecalciferol (vitamin D3) (Vitamin D3) 25 mcg PO QAM dicyclomine 20 mg PO BID divalproex ER 1,000 mg PO BEDTIME ferrous sulfate 324 mg PO DAILY [FLUCINOLONE TOPICAL DAILY ] hwmqgocymnx-xzoafivcv-ljbrxnih 200-62.5-25 mcg (Trelegy Ellipta) 1 inh inhalation DAILY levothyroxine 25 mcg PO DAILY@0600 loratadine 10 mg PO DAILY magnesium oxide 400 mg PO BIDPC multivitamin with folic acid 400 mcg (Daily-Stanley (with folic acid)) 1 tab PO DAILY pantoprazole 40 mg PO BID revefenacin (Yupelri) 175 mcg (3 mL) inhalation DAILY 30 days risperidone (Risperdal) 4 mg PO BID tamsulosin 0.4 mg PO BEDTIME valproic acid 1000mg orally daily; warfarin See Protocol 2 mg orally 4MG DAILY OR DIRECTED; 4MG DAILY OR DIRECTED Nursing Note INR 1.7 out of therapeutic range Medications and supplements reviewed Patient status: Pt ate more protein over the weekend for the holiday, pt in a pleasant friendly mood today Medications or supplements: no changes Diet: good over the weekend Denies any signs and symptoms of bleeding or clotting or unusual bruising Bleeding, bruising, clotting discussed Nutritional guidance given: avoid greens today Dose: 6mg today then resume 4mg x 5 days / 2mg x 2 days F/U INR Date: 1 week ?? Patient verbalizing understanding of instructions given. 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
--- OUTSIDE RECORDS SUMMARY | 2024-09-25 12:06 | XMS_ITS | Clinical Summary ---
Author Organization [facility], Address [address] [place] [address] [place] [address] Phone Care Team Providers Care Tow Truck Dispatcher Name Role Phone YatesBc Primary Care Provider Allergies No known active allergies Medications D3-50 1.25 MG (50404 UT) capsule TAKE 1 CAPSULE BY MOUTH [...] Care Team (Late st Contact Info) Description 02/20/2025 1:45 PM EST Office Visit [facility] [address] [place] [address] Trever Lopez MD [address] [place] [phone] Health Maintenance Due Date Last Done Comments Colorectal Cancer Screening: Annual FOBT 2001 Colorectal Cancer Screening: Colonoscopy 2001 Colorectal Cancer Screening: Sigmoidoscopy 2001 Pneumococcal Vaccine: 50+ Ye ars (2 of 2 - PCV) 11/23/2015 11/22/2014 Influenza Vaccine (#1) 2024 Pneumococcal Vaccine: Peds ( 0 to 5 Years) and At-Risk Patients (6 to 49 Years) Discontinued 11/22/2014 Hepatitis B Vaccine Aged Out No longe r eligible based on patient's age to complete this topic Insurance Medicare Medicaid [place] Care Teams Tow Truck Dispatcher Relationship Specialty Start Date End Date Bc Yates PCP - General Internal Medicine 10/05/22
--- OUTSIDE RECORDS SUMMARY | 2024-09-25 12:06 | XMS_ITS | Clinical Summary ---
Author Organization [address] 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 DX:Heart valve replaced by other means Asthma 06/29/2011 DX:Asthma Tobacco abuse 06/29/2011 DX:Tobacco abuse Schizophrenia ([facility] V24, CMS/HCC V28) 06/29/2011 DX:Schizophrenia ([facility]) Unspecified hypothyroidism 06/29/2011 DX:Un specified hypothyroidism Chronic [...] 04/14/2024 Depression Screening 09/29/2024 09/30/2023 Influenza Vaccine (#1) 2024 , 12/11/2020, 03/17/2019, Additional history exists Cholesterol Screening [...] Insurance MEDICARE MEDICAID - [place] Care Teams Candle Molder Hand Relationship Specialty Start Date End Date Bc Hunter [address] [place] [phone] PCP - General Internal Medicine 04/13/24
--- OUTSIDE RECORDS SUMMARY | 2024-09-25 12:06 | XMS_ITS | Encounter Summary ---
Author Organization [employer] Address [address] 7 [place] [address] Care Team Providers Care Rattle Leak And Squeak Repairer Name Role Phone Bc Hunter MD Primary Care Prov ider Encounter Details Date Type Department Care Team (Late st Contact Info) Description 09/20/2023 Orders Only [facility] CHC MED & PEDS [address] [place], [place] [phone] Bc Hunter MD [address] [place] [address] Social History Tobacco Use Types Packs/Day Years [...] [facility] [address] [place] [address] Bc Hunter MD [address] [place] [address] documented as of this encounter Visit Diagnoses Not on filedocumented in this encounter Additional Health Concerns Assessment Noted Time PHQ-9 Depression Total Score: 0 07/11/19 23 11:26 AM EDT documented as of this encounter Care Teams Rattle Leak And Squeak Repairer Relationship Specialty Start Date End Date Bc Hunter MD [address] [place] [address] PCP - General Internal Medicine 01/03/19 documented as of this encounter
== END 2024-09-25 11:33 | disposition home or self-care (01) ==
LOC: HO.ACS 11:09
PROVIDERS: PCP Internal Medicine; Visit Provider Internal Medicine Medical Oncology
DX: Z79.01 Long term (current) use of anticoagulants (principal)

== ENCOUNTER → 2024-09-25 11:09 | Outpatient (BNVA) | payer MEDICARE, MEDICAID, SELFPAY | PROVIDERS: PCP Internal Medicine; Visit Provider Internal Medicine Medical Oncology | DX: Z95.2 Presence of prosthetic heart valve (principal); Z79.01 Long term (current) use of anticoagulants; Z51.81 Encounter for therapeutic drug level monitoring | CPT/HCPCS: 85610; 99211 ==

== ENCOUNTER 2024-09-26 09:49 | Outpatient (REF) | payer MEDICARE, MEDICAID, SELFPAY ==
--- NOTE | ~2024-09-26 | CT_ITS ---
CLINICAL HISTORY: R91.1 - Solitary pulmonary nodule Exam: CT chest without IV contrast Comparison: CT/NC/SR - CT ANGIO CHEST PE PROTOCOL - 06/14/24 13:[address]/NC/SR - CT CHEST WO IV CON - 06/29/22 11:13 EDT Findings: 9 mm spiculated nodule and 4 mm spiculated nodule left lung apex on image 30 and image 31, 5 mm triangular nodule left upper lobe on image 41 are stable since 06/14/2024 CT, not seen on CT exam from 2022. Posterior right upper lobe patchy and nodular opacities, improved since 06/14/2024. Right lower lobe small pleural effusion, pleural thickening and calcification, adjacent wedge-shaped consolidation likely atelectasis unchanged. Small left pleural effusion is stable since 06/14/2024, improved when compared to 2022 CT. Stable centrilobular and paraseptal emphysema of the upper lobes, probably smoking related. No pneumothorax. Mild cardiomegaly, aortic valve prosthesis noted. Atherosclerotic calcification of the aorta and moderate coronary artery calcification. Dilated pulmonary trunk, same as before, can be seen in pulmonary arterial hypertension. No bulky lymph nodes. Imaged lower neck, upper abdomen and chest wall are unremarkable. Degenerative changes of thoracic spine. Stable old posttraumatic and advanced degenerative changes of the glenohumeral joint. Impression: 1. Recently stable left upper lobe pulmonary nodules with dominant nodule 9 mm and spiculated, new since 2022 CT exam, indeterminate, recommend further evaluation by PET-CT. 2. Improved right upper lobe patchy and nodular opacities, likely residual pneumonia or sequela of prior pneumonia. 3. Stable small right pleural effusion, pleural thickening and calcification, neighboring rounded atelectasis of lower lobe. 4. Stable small left pleural effusion. 5. Mild cardiomegaly, atherosclerotic disease and suggestion of pulmonary arterial hypertension. 6. Additional chronic findings, as discussed. This document has been electronically signed by: Jessica Bliss MD on 09/27/2024 13:47:09
--- OUTSIDE RECORDS SUMMARY | 2024-09-26 10:27 | XMS_ITS | Encounter Summary ---
Author Organization [employer] Address [address] [facility] 7 [place] [address] Care Team Providers Care Product Scientist Name Role Phone Bc Hunter MD Primary Care Prov ider Encounter Details Date Type Department Care Team (Late st Contact Info) Description 09/20/2023 Orders Only [facility] CHC MED & PEDS [address] [place], [place] [phone] Bc Hunter MD [address] [place] [address] Social History Tobacco Use Types Packs/Day Years [...] [facility] MED & PEDS [address] [place] [address] Bc Hunter MD [address] [place] [address] documented as of this encounter Visit Diagnoses Not on filedocumented in this encounter Additional Health Concerns Assessment Noted Time PHQ-9 Depression Total Score: 0 07/11/19 23 11:26 AM EDT documented as of this encounter Care Teams Product Scientist Relationship Specialty Start Date End Date Bc Hunter MD [address] [place] [address] PCP - General Internal Medicine 01/03/19 documented as of this encounter
--- OUTSIDE RECORDS SUMMARY | 2024-09-26 10:27 | XMS_ITS | Clinical Summary ---
Author Organization [facility], Address [address] [place] [address] [place] [address] Phone Care Team Providers Care Chief Innovation Officer Name Role Phone YatesBc Primary Care Provider Allergies No known active allergies Medications D3-50 1.25 MG (60128 UT) capsule TAKE 1 CAPSULE BY MOUTH [...] Visit [facility] [address] [place] [address] Trever Lopez MD [address] [place] [phone] Health Maintenance Due Date Last Done Comments [...] topic Insurance Medicare Medicaid [place] Care Teams Chief Innovation Officer Relationship Specialty Start Date End Date Bc Yates PCP - General Internal Medicine 10/05/22
--- OUTSIDE RECORDS SUMMARY | 2024-09-26 10:27 | XMS_ITS | Clinical Summary ---
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
== END 2024-09-26 09:50 | disposition home or self-care (01) ==
LOC: HO.CT 09:49
PROVIDERS: PCP Internal Medicine; Visit Provider Internal Medicine Pulmonary Disease
DX: R91.1 Solitary pulmonary nodule (principal)
CPT/HCPCS: 71250

== ENCOUNTER → 2024-09-26 09:52 | Outpatient (BNV) | payer MEDICARE, MEDICAID, SELFPAY | PROVIDERS: PCP Internal Medicine; Visit Provider Radiology Diagnostic Radiology | DX: J90 Pleural effusion, not elsewhere classified (principal); J98.11 Atelectasis; R91.8 Other nonspecific abnormal finding of lung field | CPT/HCPCS: 71250 ==

== ENCOUNTER 2024-10-02 10:06 | Outpatient (AMB) | payer MEDICARE, MEDICAID, SELFPAY ==
[2024-10-02 10:14] LABS: Prothrombin Time Whole Bld POC 23.2 sec (11.1-13.5); ~PT, ~INR - Anti Coag Clinic 1.9 (0.9-1.1)
--- NOTE | 2024-10-02 10:23 | MHC.OFFVISCO ---
Intake Intake Visit Reasons: Anticoagulation Allergies No Known Allergies Allergy (Mild, Verified 10/02/24 10:08) NOT APPLICABLE Medication List - Last Reconciled 10/02/24 by Raissa Hull RN albuterol sulfate 90 mcg/actuation (Ventolin HFA) 1 puff inhalation RQ4H PRN amantadine HCl 100 mg PO BID atorvastatin 40 mg PO BEDTIME carbamide peroxide (Debrox) 5 DROPS EACH EAR EVERY 2 WEEKS cholecalciferol (vitamin D3) (Vitamin D3) 25 mcg PO QAM dicyclomine 20 mg PO BID divalproex ER 1,000 mg PO BEDTIME ferrous sulfate 324 mg PO DAILY [FLUCINOLONE TOPICAL DAILY ] hsnwqhzadic-kmtwvikmr-tjmluowl 200-62.5-25 mcg (Trelegy Ellipta) 1 inh inhalation DAILY levothyroxine 25 mcg PO DAILY@0600 loratadine 10 mg PO DAILY magnesium oxide 400 mg PO BIDPC multivitamin with folic acid 400 mcg (Daily-Stanley (with folic acid)) 1 tab PO DAILY pantoprazole 40 mg PO BID revefenacin (Yupelri) 175 mcg (3 mL) inhalation DAILY 30 days risperidone (Risperdal) 4 mg PO BID tamsulosin 0.4 mg PO BEDTIME valproic acid 1000mg orally daily; warfarin See Protocol 2 mg orally 4MG DAILY OR DIRECTED; 4MG DAILY OR DIRECTED Nursing Note INR: 1.9 Almost in therapeutic range 2.0-3.0 Medications and supplements reviewed No changes in health, diet, medications, or supplements, Denies any signs and symptoms of bleeding or bruising or clotting. 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
--- OUTSIDE RECORDS SUMMARY | 2024-10-02 10:51 | XMS_ITS | Encounter Summary ---
Author Organization [employer] Address [address] [facility] 7 [place] [address] Care Team Providers Care Transmission Rebuilder Name Role Phone Bc Hunter MD Primary Care Prov ider Encounter Details Date Type Department Care Team (Late st Contact Info) Description 09/20/2023 Orders Only [facility] CHC MED & PEDS [address] [place], [place] [phone] Bc Hunter MD [address] [place] [address] Social History Tobacco Use Types Packs/Day Years [...] [facility] [address] [place] [address] Bc Hunter MD [address] [place] [address] documented as of this encounter Visit Diagnoses Not on filedocumented in this encounter Additional Health Concerns Assessment Noted Time PHQ-9 Depression Total Score: 0 07/11/19 23 11:26 AM EDT documented as of this encounter Care Teams Transmission Rebuilder Relationship Specialty Start Date End Date Bc Hunter MD [address] [place] [address] PCP - General Internal Medicine 01/03/19 documented as of this encounter
--- OUTSIDE RECORDS SUMMARY | 2024-10-02 10:51 | XMS_ITS | Clinical Summary ---
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
--- OUTSIDE RECORDS SUMMARY | 2024-10-02 10:51 | XMS_ITS | Clinical Summary ---
Author Organization [facility], Address [address] [place] [address] [place] [address] Phone Care Team Providers Care Personnel Specialist Name Role Phone YatesBc Primary Care Provider Allergies No known active allergies Medications D3-50 1.25 MG (70983 UT) capsule TAKE 1 CAPSULE BY MOUTH [...] Visit [facility] [address] [place] [address] Trever Lopez MD [address] [address] [place] [phone] Health Maintenance Due Date Last Done Comments [...] topic Insurance Medicare Medicaid [place] Care Teams Personnel Specialist Relationship Specialty Start Date End Date Bc Yates PCP - General Internal Medicine 10/05/22
== END 2024-10-02 10:25 | disposition home or self-care (01) ==
LOC: HO.ACS 10:06
PROVIDERS: PCP Internal Medicine; Visit Provider Internal Medicine Medical Oncology
DX: Z79.01 Long term (current) use of anticoagulants (principal)

== ENCOUNTER → 2024-10-02 10:06 | Outpatient (BNVA) | payer MEDICARE, MEDICAID, SELFPAY | PROVIDERS: PCP Internal Medicine; Visit Provider Internal Medicine Medical Oncology | DX: Z95.2 Presence of prosthetic heart valve (principal); Z79.01 Long term (current) use of anticoagulants; Z51.81 Encounter for therapeutic drug level monitoring | CPT/HCPCS: 85610; 99211 ==

== ENCOUNTER 2024-10-04 13:35 | Outpatient (AMB) | payer MEDICARE, MEDICAID, SELFPAY ==
[2024-10-04 13:38] VITALS: BP 128/58; PULSE 80; O2SAT 97
--- NOTE | 2024-10-04 13:38 | MHC.OFFVIS ---
Vital Signs 10/04/24 13:38 Weight 172 lb BP 128/58 L Blood Pressure Location Rt brachial Position Sitting Pulse 80 Pulse Source Pulse Oximeter Pulse Oximetry (%) 97 Oxygen Delivery Method Room Air Intake Visit Reasons: copd Allergies No Known Allergies Allergy (Mild, Verified 10/04/24 13:45) NOT APPLICABLE HPI HPI copd: Details: 74-year-old gentleman, active 60+ pack-year smoker, with underlying history of what appears to be schizophrenia, followed for underlying moderate COPD and increasing pulmonary nodule. Patient has been using Trelegy, Yupelri, and albuterol MDI?with reasonable control of his underlying symptoms. His PET scan exam was reviewed and initially an IR guided biopsy was ordered, they after PET scan results were discussed with interventional radiologist who did not think that there was significant change in his underlying lesion, thus repeat CT scan was obtained in 3 months that showed stable findings. [facility] Medical History Incarcerated right inguinal hernia Normocytic anemia Metabolic encephalopathy MSSA bacteremia History of atrial fibrillation COPD (chronic obstructive pulmonary disease) Hypothyroid Bipolar 1 disorder Surgical History History of heart surgery Social History Household Members: Other Household Members Other:: [facility] Housing: House Housing Other:: [facility] Do you presently have visiting nurse or other home services: Yes ([facility]) Alcohol intake: never Comment: Close observation Patient Tobacco Use Status: Refuse Tobacco use screen Substance Use Type: Marijuana Advance Directives Date on File: 06/04/23 service: No Sexual orientation: Straight/Heterosexual Review of Systems Const Denies daytime sleepiness, Denies excessive sweating, Denies fatigue, Denies fever(s), Denies lethargy, Denies malaise, Denies night sweats, Denies snoring and Denies weight loss Eyes Denies blurry vision and Denies itchy eyes ENT Denies nasal congestion, Denies post nasal drip, Denies sinus pain, Denies sinus pressure and Denies other ( Thrush) Card Denies chest pain, Denies pedal edema, Denies dyspnea, Denies orthopnea and Denies paroxysmal nocturnal dyspnea Resp Denies cough, Denies hemoptysis, Denies excessive phlegm production, Denies dyspnea, Denies snoring and Denies wheezing GI Denies abdominal pain and Denies heartburn Musc Denies myalgias, Denies arthralgias and Denies joint swelling Skin/Breast Denies rash Neuro Denies memory loss and Denies seizure-like activity Psych Denies abnormal sleep pattern, Denies anxiety and Denies memory loss Endo Denies excessive sweating, Denies fatigue and Denies heat intolerance Clint/Lymph Denies easy bruising Aller/Immun Denies itchy eyes, Denies seasonal rhinorrhea and Denies wheezing Physical Exam Vital Signs: Last Vital Signs Pulse 80 10/04/24 13:38 BP 128/58 L 10/04/24 13:38 Pulse Ox 97 10/04/24 13:38 Oxygen Delivery Method Room Air 10/04/24 13:38 Const General: no acute distress and alert Nutritional Appearance: not obese Orientation/consciousness: Other orientation findings ( oriented) HEENT Head: Yes atraumatic Eyes General: appearance normal, both eyes and all related structures Sclerae: sclerae normal EOM: EOMs intact bilaterally Neck Neck: Yes supple Lymphatic: no lymphadenopathy noted Resp Effort & Inspection: normal respiratory effort and no use of accessory muscles Auscultation: clear to auscultation bilaterally Cardio Rate: regular rate Rhythm: regular rhythm Heart sounds: no gallops, no murmurs and no rubs Skin General skin exam: other ( warm) Extrem General: No clubbing, No cyanosis and No edema Assessment & Plan Assessment & Plan (1) COPD (chronic obstructive pulmonary disease): Code(s): J44.9 - Chronic obstructive pulmonary disease, unspecified Category: Medical Plan: Well controlled on current regimen of Yupelri, Trelegy, and albuterol MDI. Continue current regimen. (2) Right upper lobe pulmonary nodule: Code(s): R91.1 - Solitary pulmonary nodule Category: Medical Plan: Results of 3 months follow-up CT chest reviewed, shows stable right upper lobe nodule. Will repeat CT scan in 6 months. Orders: Orders CT chest wo IV con 03/31/25 R91.1 - Solitary pulmonary nodule Coding Level of Care Code Est Pt Level 4 (40865) Complex EM visit Add On G2211 Diagnoses COPD (chronic obstructive pulmonary disease) J44.9 Right upper lobe pulmonary nodule R91.1
--- OUTSIDE RECORDS SUMMARY | 2024-10-04 14:25 | XMS_ITS | Encounter Summary ---
Author Organization [facility] [facility] Address [address] [facility] 7 [place] [address] Care Team Providers Care Clinical Sciences Professor Name Role Phone Bc Hunter MD Primary Care Prov ider Encounter Details Date Type Department Care Team (Late st Contact Info) Description 09/20/2023 Orders Only [facility] CHC MED & PEDS [address] [place], [place] [phone] Bc Hunter MD [address] [place] [address] Social History Tobacco Use Types Packs/Day Years [...] Care Team (Late st Contact Info) Description 01/08/2025 11:15 AM EDT Office Visit [facility] MED & PEDS [address] [place] [address] Bc Hunter MD [address] [place] [address] documented as of this encounter Visit Diagnoses Not on filedocumented in this encounter Additional Health Concerns Assessment Noted Time PHQ-9 Depression Total Score: 0 07/11/19 23 11:26 AM EDT documented as of this encounter Care Teams Clinical Sciences Professor Relationship Specialty Start Date End Date Bc Hunter MD [address] [place] [address] PCP - General Internal Medicine 01/03/19 documented as of this encounter
--- OUTSIDE RECORDS SUMMARY | 2024-10-04 14:25 | XMS_ITS | Clinical Summary ---
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 V24, CMS/HCC V28) 06/29/2011 DX:Schizophrenia ([facility]) Unspecified hypothyroidism 06/29/2011 DX:Un specified [...] Insurance MEDICARE MEDICAID - [place] Care Teams Tactical/Mobile Watch Officer Relationship Specialty Start Date End Date Bc Hunter [address] [place] [phone] PCP - General Internal Medicine 04/13/24
--- OUTSIDE RECORDS SUMMARY | 2024-10-04 14:25 | XMS_ITS | Clinical Summary ---
Author Organization [facility], Address [address] [place] [address] [place] [address] Phone Care Team Providers Care Food Mixer Name Role Phone YatesBc Primary Care Provider Allergies No known active allergies Medications D3-50 1.25 MG (05914 UT) capsule TAKE 1 CAPSULE BY MOUTH [...] [facility] [address] [place] [address] Trever Lopez MD [address] [place] [phone] Health Maintenance Due Date Last Done Comments [...] topic Insurance Medicare Medicaid [place] Care Teams Food Mixer Relationship Specialty Start Date End Date Bc Yates PCP - General Internal Medicine 10/05/22
== END 2024-10-04 13:54 | disposition home or self-care (01) ==
LOC: HO.HPS 13:35
PROVIDERS: PCP Internal Medicine; Visit Provider Internal Medicine Pulmonary Disease
DX: J44.9 Chronic obstructive pulmonary disease, unspecified (principal); R91.1 Solitary pulmonary nodule
CPT/HCPCS: 99214; G2211

== ENCOUNTER → 2024-10-04 13:35 | Outpatient (BNVA) | payer MEDICARE, MEDICAID, SELFPAY | PROVIDERS: PCP Internal Medicine; Visit Provider Internal Medicine Pulmonary Disease | DX: R91.1 Solitary pulmonary nodule (principal); J44.9 Chronic obstructive pulmonary disease, unspecified | CPT/HCPCS: 99212 ==

== ENCOUNTER 2024-10-09 11:05 | Outpatient (AMB) | payer MEDICARE, MEDICAID, SELFPAY ==
[2024-10-09 11:13] LABS: Prothrombin Time Whole Bld POC 23.3 sec (11.1-13.5); ~PT, ~INR - Anti Coag Clinic 1.9 (0.9-1.1)
--- NOTE | 2024-10-09 11:20 | MHC.OFFVISCO ---
Intake Intake Visit Reasons: Anticoagulation Allergies No Known Allergies Allergy (Mild, Verified 10/09/24 11:07) NOT APPLICABLE Medication List - Last Reconciled 10/09/24 by Nivia Beaver RN albuterol sulfate 90 mcg/actuation (Ventolin HFA) 1 puff inhalation RQ4H PRN amantadine HCl 100 mg PO BID atorvastatin 40 mg PO BEDTIME carbamide peroxide (Debrox) 5 DROPS EACH EAR EVERY 2 WEEKS cholecalciferol (vitamin D3) (Vitamin D3) 25 mcg PO QAM dicyclomine 20 mg PO BID divalproex ER 1,000 mg PO BEDTIME ferrous sulfate 324 mg PO DAILY [FLUCINOLONE TOPICAL DAILY ] armcsjzpeuj-yzccgcjyj-aoxabmci 200-62.5-25 mcg (Trelegy Ellipta) 1 inh inhalation DAILY levothyroxine 25 mcg PO DAILY@0600 loratadine 10 mg PO DAILY magnesium oxide 400 mg PO BIDPC multivitamin with folic acid 400 mcg (Daily-Stanley (with folic acid)) 1 tab PO DAILY pantoprazole 40 mg PO BID revefenacin (Yupelri) 175 mcg (3 mL) inhalation DAILY 30 days risperidone (Risperdal) 4 mg PO BID tamsulosin 0.4 mg PO BEDTIME valproic acid 1000mg orally daily; warfarin See Protocol 2 mg orally 4MG DAILY OR DIRECTED; 4MG DAILY OR DIRECTED Nursing Note [facility] INR: 1.9?out of therapeutic range of 2-3. Pt and attendant denies missed dose. Medications and supplements reviewed Patient status: well Medications or supplements: no changes Diet: usual diet. Attendant states pt likes chocolate which can lower the INR Denies any signs and symptoms of bleeding or clotting or unusual bruising Bleeding, bruising, clotting discussed Nutritional guidance given: to have some summer fruit like strawberries or grapes or melon which can raise the INR. F/U INR Date: 1 week?? Patient verbalizing understanding of instructions given. Anti-Coag Initial Assessment Social Hx Patient Tobacco Use Status: Refuse Tobacco use screen alcohol intake: never Coding Level of Care Code Est Patient Level 1 Diagnoses Current use of anticoagulant therapy Z79.01 Results AMB INR Fingerstick AMB INR Fingerstick 1.9 Last Edit by Nivia Beaver RN on 10/09/24 11:15 interface delay Assessment & Plan Assessment & Plan (1) Current use of anticoagulant therapy: Code(s): Z79.01 - longterm (current) use of anticoagulants Category: Medical
--- OUTSIDE RECORDS SUMMARY | 2024-10-09 12:15 | XMS_ITS | Clinical Summary ---
Author Organization [facility], Address [address] [place] [address] [place] [address] Phone Care Team Providers Care Ramp And Cargo Supervisor Name Role Phone YatesBc Primary Care Provider Allergies No known active allergies Medications D3-50 1.25 MG (19935 UT) capsule TAKE 1 CAPSULE BY MOUTH [...] Visit [facility] [address] [place] [address] Trever Lopez MD [address] [place] [phone] Health Maintenance Due Date Last Done Comments [...] topic Insurance Medicare Medicaid [place] Care Teams Ramp And Cargo Supervisor Relationship Specialty Start Date End Date Bc Yates PCP - General Internal Medicine 10/05/22
--- OUTSIDE RECORDS SUMMARY | 2024-10-09 12:15 | XMS_ITS | Clinical Summary ---
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 DX:Heart valve replaced by other means Asthma 06/29/2011 DX:Asthma Tobacco abuse 06/29/2011 DX:Tobacco abuse Schizophrenia ([facility] V24, CMS/HCC V28) 06/29/2011 DX:Schizophrenia ([facility]) Unspecified hypothyroidism 06/29/2011 DX:Un specified hypothyroidism Chronic [...] PCV20 or PCV21) 03/17/2024 03/17/2019, 11/22/2014, 06/17/2000 Depression Screening 03/22/2024 Abdominal Aortic Aneurysm (AAA) Screen 04/14/2024 Colorectal Cancer Screening: Colonoscopy 04/14/2024 Falls Risk Assessment 04/14/2024 Medicare Annual Wellness Visit 04/14/2024 Social Influencers of Health Screening 04/14/2024 Influenza Vaccine (#1) 2024 , 12/11/2020, 03/17/2019, [...] Insurance MEDICARE MEDICAID - [place] Care Teams Solar Sales Representative And Assessor Relationship Specialty Start Date End Date Bc Hunter [address] [place] [id number] PCP - General Internal Medicine 04/13/24
--- OUTSIDE RECORDS SUMMARY | 2024-10-09 12:15 | XMS_ITS | Encounter Summary ---
Author Organization [employer] Address [address] [facility] 7 [place] [address] Care Team Providers Care Square Dance Caller Name Role Phone Bc Hunter MD Primary Care Prov ider Encounter Details Date Type Department Care Team (Late st Contact Info) Description 09/20/2023 Orders Only [facility] MED & PEDS [address] [place], [place] [phone] Bc Hunter MD [address] [place] [address] Social History Tobacco Use Types Packs/Day Years [...] Description 01/08/2025 11:15 AM EDT Office Visit [facility] [address] [place] [address] Bc Hunter MD [address] [place] [address] documented as of this encounter Visit Diagnoses Not on filedocumented in this encounter Additional Health Concerns Assessment Noted Time PHQ-9 Depression Total Score: 0 07/11/19 23 11:26 AM EDT documented as of this encounter Care Teams Square Dance Caller Relationship Specialty Start Date End Date Bc Hunter MD [address] [place] [address] PCP - General Internal Medicine 01/03/19 documented as of this encounter
== END 2024-10-09 11:26 | disposition home or self-care (01) ==
LOC: HO.ACS 11:05
PROVIDERS: PCP Internal Medicine; Visit Provider Internal Medicine Medical Oncology
DX: Z79.01 Long term (current) use of anticoagulants (principal)

== ENCOUNTER → 2024-10-09 11:05 | Outpatient (BNVA) | payer MEDICARE, MEDICAID, SELFPAY | PROVIDERS: PCP Internal Medicine; Visit Provider Internal Medicine Medical Oncology | DX: Z95.2 Presence of prosthetic heart valve (principal); Z79.01 Long term (current) use of anticoagulants; Z51.81 Encounter for therapeutic drug level monitoring | CPT/HCPCS: 85610; 99211 ==

== ENCOUNTER 2024-10-16 10:40 | Outpatient (AMB) | payer MEDICARE, MEDICAID, SELFPAY ==
[2024-10-16 10:58] LABS: Prothrombin Time Whole Bld POC 38.4 sec (11.1-13.5); ~PT, ~INR - Anti Coag Clinic 3.2 (0.9-1.1)
--- NOTE | 2024-10-16 11:07 | MHC.OFFVISCO ---
Intake Intake Visit Reasons: Anticoagulation Allergies No Known Allergies Allergy (Mild, Verified 10/16/24 10:51) NOT APPLICABLE Medication List - Last Reconciled 10/16/24 by Raissa Hull RN albuterol sulfate 90 mcg/actuation (Ventolin HFA) 1 puff inhalation RQ4H PRN amantadine HCl 100 mg PO BID atorvastatin 40 mg PO BEDTIME carbamide peroxide (Debrox) 5 DROPS EACH EAR EVERY 2 WEEKS cholecalciferol (vitamin D3) (Vitamin D3) 25 mcg PO QAM dicyclomine 20 mg PO BID divalproex ER 1,000 mg PO BEDTIME ferrous sulfate 324 mg PO DAILY [FLUCINOLONE TOPICAL DAILY ] yfuewztyrnc-zcqlauifu-dhyzrwdf 200-62.5-25 mcg (Trelegy Ellipta) 1 inh inhalation DAILY levothyroxine 25 mcg PO DAILY@0600 loratadine 10 mg PO DAILY magnesium oxide 400 mg PO BIDPC multivitamin with folic acid 400 mcg (Daily-Stanley (with folic acid)) 1 tab PO DAILY pantoprazole 40 mg PO BID revefenacin (Yupelri) 175 mcg (3 mL) inhalation DAILY 30 days risperidone (Risperdal) 4 mg PO BID tamsulosin 0.4 mg PO BEDTIME valproic acid 1000mg orally daily; warfarin See Protocol 2 mg orally 4MG DAILY OR DIRECTED; 4MG DAILY OR DIRECTED Nursing Note INR: 3.2 OUT OF therapeutic range Medications and supplements reviewed pt quit smoking 3 days now - with only a few puffs states he plans to quit all together- CERAMIC ENGINEER states his moods and everything have been good since. He states he has been snacking more Denies any signs and symptoms of bleeding or bruising or clotting. Bleeding, bruising, clotting discussed Nutritional guidance given - try to eat 2 servings of greens per week Dose: 2mg today then 2mg sundays/ 4mg x 6 days F/U INR: f/u 1week due to quit smoking and dietary changes Patient and CERAMIC ENGINEER verbalizes understanding of instructions given Anti-Coag Initial Assessment Social Hx Patient Tobacco Use Status: Refuse Tobacco use screen alcohol intake: never Coding Level of Care Code Est Patient Level 1 Diagnoses Current use of anticoagulant therapy Z79.01 Results AMB INR Fingerstick AMB INR Fingerstick 3.2 Last Edit by Raissa Hull RN on 10/16/24 11:01 MANUAL ENTRY Assessment & Plan Assessment & Plan (1) Current use of anticoagulant therapy: Code(s): Z79.01 - alf (current) use of anticoagulants Category: Medical
--- OUTSIDE RECORDS SUMMARY | 2024-10-16 11:53 | XMS_ITS | Clinical Summary ---
Author Organization [facility], Address [address] [place] [address] [place] [address] Phone Care Team Providers Care Crabbing Machine Operator Name Role Phone YatesBc Primary Care Provider [phone] Allergies No known active allergies Medications D3-50 1.25 MG (12312 UT) capsule TAKE 1 CAPSULE BY MOUTH [...] [facility] [address] [place] [address] Trever Lopez MD [address] [place] [phone] Health Maintenance Due Date Last Done Comments [...] topic Insurance Medicare Medicaid [place] Care Teams Crabbing Machine Operator Relationship Specialty Start Date End Date Bc Yates PCP - General Internal Medicine 10/05/22
--- OUTSIDE RECORDS SUMMARY | 2024-10-16 11:53 | XMS_ITS | Encounter Summary ---
Author Organization [employer] Address [address] [facility] 7 [place] [address] Care Team Providers Care Business Development Recruiter Name Role Phone Bc Hunter MD Primary Care Prov ider Encounter Details Date Type Department Care Team (Late st Contact Info) Description 09/20/2023 Orders Only [facility] MED & PEDS [address] [place], [place] [phone] Bc Hunter MD [address] [place] [address] Social History Tobacco Use Types Packs/Day Years [...] 01/08/2025 11:15 AM EDT Office Visit [facility] PED[facility] [address] [place] [address] Bc Hunter MD [address] [place] [address] documented as of this encounter Visit Diagnoses Not on filedocumented in this encounter Additional Health Concerns Assessment Noted Time PHQ-9 Depression Total Score: 0 07/11/19 23 11:26 AM EDT documented as of this encounter Care Teams Business Development Recruiter Relationship Specialty Start Date End Date Bc Hunter MD [address] [place] [address] PCP - General Internal Medicine 01/03/19 documented as of this encounter
--- OUTSIDE RECORDS SUMMARY | 2024-10-16 11:53 | XMS_ITS | Clinical Summary ---
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
== END 2024-10-16 11:12 | disposition home or self-care (01) ==
LOC: HO.ACS 10:40
PROVIDERS: PCP Internal Medicine; Visit Provider Internal Medicine Medical Oncology
DX: Z79.01 Long term (current) use of anticoagulants (principal)

== ENCOUNTER → 2024-10-16 10:40 | Outpatient (BNVA) | payer MEDICARE, MEDICAID, SELFPAY | PROVIDERS: PCP Internal Medicine; Visit Provider Internal Medicine Medical Oncology | DX: Z95.2 Presence of prosthetic heart valve (principal); Z79.01 Long term (current) use of anticoagulants; Z51.81 Encounter for therapeutic drug level monitoring | CPT/HCPCS: 85610; 99211 ==

== ENCOUNTER 2024-10-23 11:54 | Outpatient (AMB) | payer MEDICARE, MEDICAID, SELFPAY ==
--- NOTE | 2024-10-23 11:57 | MHC.OFFVISCO ---
Intake Intake Visit Reasons: Anticoagulation Allergies No Known Allergies Allergy (Mild, Verified 10/23/24 11:44) NOT APPLICABLE Medication List - Last Reconciled 10/23/24 by Nivia Beaver RN albuterol sulfate 90 mcg/actuation (Ventolin HFA) 1 puff inhalation RQ4H PRN amantadine HCl 100 mg PO BID atorvastatin 40 mg PO BEDTIME carbamide peroxide (Debrox) 5 DROPS EACH EAR EVERY 2 WEEKS cholecalciferol (vitamin D3) (Vitamin D3) 25 mcg PO QAM dicyclomine 20 mg PO BID divalproex ER 1,000 mg PO BEDTIME ferrous sulfate 324 mg PO DAILY [FLUCINOLONE TOPICAL DAILY ] aqunhotxrth-quxekuxgo-kqsxjhhf 200-62.5-25 mcg (Trelegy Ellipta) 1 inh inhalation DAILY levothyroxine 25 mcg PO DAILY@0600 loratadine 10 mg PO DAILY magnesium oxide 400 mg PO BIDPC multivitamin with folic acid 400 mcg (Daily-Stanley (with folic acid)) 1 tab PO DAILY pantoprazole 40 mg PO BID revefenacin (Yupelri) 175 mcg (3 mL) inhalation DAILY 30 days risperidone (Risperdal) 4 mg PO BID tamsulosin 0.4 mg PO BEDTIME valproic acid 1000mg orally daily; warfarin See Protocol 2 mg orally 4MG DAILY OR DIRECTED; 4MG DAILY OR DIRECTED Nursing Note INR: 2.7 in therapeutic range of 2-3 Medications and supplements reviewed No changes in health, diet, medications, or supplements, Denies any signs and symptoms of bleeding or bruising or clotting. Bleeding, bruising, clotting discussed Nutritional guidance given Dose: 4mg X 5 days and 2mg X 2 days (Tues & Fri) F/U INR: 2 weeks Patient verbalizes understanding of instructions given Anti-Coag Initial Assessment Social Hx Patient Tobacco Use Status: Refuse Tobacco use screen alcohol intake: never Coding Level of Care Code Est Patient Level 1 Diagnoses Current use of anticoagulant therapy Z79.01 Results AMB INR Fingerstick AMB INR Fingerstick 2.7 Last Edit by Nivia Beaver RN on 10/23/24 11:50 interface delay Assessment & Plan Assessment & Plan (1) Current use of anticoagulant therapy: Code(s): Z79.01 - prison (current) use of anticoagulants Category: Medical
--- OUTSIDE RECORDS SUMMARY | 2024-10-23 12:40 | XMS_ITS | Clinical Summary ---
Author Organization [facility], Address [address] [place] [address] [place] [address] Phone Care Team Providers Care Planting Machine Operator Name Role Phone YatesBc Primary Care Provider Allergies No known active allergies Medications D3-50 1.25 MG (19245 UT) capsule TAKE 1 CAPSULE BY MOUTH [...] Visit [facility] [address] [place] [address] Trever Lopez MD [address] [place] [phone] Health Maintenance Due Date Last Done Comments [...] topic Insurance Medicare Medicaid [place] Care Teams Planting Machine Operator Relationship Specialty Start Date End Date Bc Yates PCP - General Internal Medicine 10/05/22
--- OUTSIDE RECORDS SUMMARY | 2024-10-23 12:40 | XMS_ITS | Clinical Summary ---
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
--- OUTSIDE RECORDS SUMMARY | 2024-10-23 12:40 | XMS_ITS | Encounter Summary ---
Author Organization [employer] Address [address] [facility] 7 [place] [address] Care Team Providers Care Motor Grader Rough Grade Name Role Phone Bc Hunter MD Primary Care Prov ider Encounter Details Date Type Department Care Team (Late st Contact Info) Description 09/20/2023 Orders Only [facility] MED & PEDS [address] [place], [place] [phone] Bc Hunter MD [address] [place] [address] Social History Tobacco Use Types Packs/Day Years [...] Description 01/08/2025 11:15 AM EDT Office Visit [facility] MED & PEDS [address] [place] [address] Bc Hunter MD [address] [place] [address] documented as of this encounter Visit Diagnoses Not on filedocumented in this encounter Additional Health Concerns Assessment Noted Time PHQ-9 Depression Total Score: 0 07/11/19 23 11:26 AM EDT documented as of this encounter Care Teams Motor Grader Rough Grade Relationship Specialty Start Date End Date Bc Hunter MD [address] [place] [address] PCP - General Internal Medicine 01/03/19 documented as of this encounter
== END 2024-10-23 11:59 | disposition home or self-care (01) ==
LOC: HO.ACS 11:54
PROVIDERS: PCP Internal Medicine; Visit Provider Internal Medicine Medical Oncology
DX: Z79.01 Long term (current) use of anticoagulants (principal)

== ENCOUNTER → 2024-10-23 11:54 | Outpatient (BNVA) | payer MEDICARE, MEDICAID, SELFPAY | PROVIDERS: PCP Internal Medicine; Visit Provider Internal Medicine Medical Oncology | DX: Z95.2 Presence of prosthetic heart valve (principal); Z51.81 Encounter for therapeutic drug level monitoring; Z79.01 Long term (current) use of anticoagulants | CPT/HCPCS: 99211 ==

== ENCOUNTER 2024-10-30 13:06 | Outpatient (REF) | payer MEDICARE, MEDICAID, SELFPAY ==
--- OUTSIDE RECORDS SUMMARY | 2024-10-30 13:17 | XMS_ITS | Clinical Summary ---
Author Organization [facility], Address [address] [place] [address] [place] [address] Phone Care Team Providers Care Gas Charger Name Role Phone YatesBc Primary Care Provider [phone] Allergies No known active allergies Medications D3-50 1.25 MG (67733 UT) capsule TAKE 1 CAPSULE BY MOUTH [...] Visit [facility] [address] [place] [address] Trever Lopez MD [address] [place] [phone] Health Maintenance Due Date Last Done Comments [...] topic Insurance Medicare Medicaid [place] Care Teams Gas Charger Relationship Specialty Start Date End Date Bc Yates PCP - General Internal Medicine 10/05/22
--- OUTSIDE RECORDS SUMMARY | 2024-10-30 13:17 | XMS_ITS | Clinical Summary ---
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
--- OUTSIDE RECORDS SUMMARY | 2024-10-30 13:17 | XMS_ITS | Encounter Summary ---
Author Organization [employer] Address [address] [facility] 7 [place] [address] Care Team Providers Care Web Editor Name Role Phone Bc Hunter MD Primary Care Prov ider Reason for Visit * Reason Onset Date Comments Lab Orders 10/30/2024 Encounter Details Date Type Department Care Team ([facility] Contact Info) Description 10/30/2024 Telephone [facility] MED & PEDS [address] [place] [address] Bc Hunter MD [address] [place] [address] Lab Orders Social History Tobacco Use Types [...] Telephone Encounter - Danielle Rodriguez RN - 10/30/2024 12:09 PM EDT T-spot entered * Telephone Encounter - Jenn Krishnamurthy - 10/30/2024 11:16 AM EDT Tc from [place] 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 in requesting to schedule tb test for pt Contact Francisco at [phone] documented in this encounter Plan of Treatment Upcoming Encounters Date Type Department Care Team (Late st Contact Info) Description 01/08/2025 11:15 AM EDT Office Visit [facility] MED & PEDS [address] [place] [address] Bc Hunter MD [address] [place] [address] Scheduled Orders Name Type Priority Associated Diagnoses Orde r Schedule T-SPOT .TB Lab Routine Screening for tuberculosis Expected: 10/30/2024 (Approximate), Expires: 10/30/2025 documented as of this encounter Visit Diagnoses Diagnosis Screening for tuberculosis Screening examination for pulmonary tuberculosis documented in this encounter Additional Health Concerns Assessment Noted Time PHQ-9 Depression Total Score: 0 09/30/19 24 11:02 AM EDT documented as of this encounter Care Teams Web Editor Relationship Specialty Start Date End Date YatesBc Ledezma MD [address] [place] [id number] PCP - General Internal Medicine 01/03/19 documented as of this encounter
[2024-11-02 10:19] LABS: TS Negative Control Passed; TS Panel A 0; TS Panel B 1; TS Positive Control Passed; TSpotTB Negative (Negative)
== END 2024-10-30 13:07 | disposition home or self-care (01) ==
LOC: HO.CHCLDS 13:06
PROVIDERS: Visit Provider Internal Medicine
DX: Z11.1 Encounter for screening for respiratory tuberculosis (principal)
CPT/HCPCS: 36415; 86481

== ENCOUNTER → 2024-11-06 11:16 | Outpatient (BNVA) | payer MEDICARE, MEDICAID, SELFPAY | PROVIDERS: PCP Internal Medicine; Visit Provider Internal Medicine Medical Oncology | DX: Z51.81 Encounter for therapeutic drug level monitoring (principal); Z79.01 Long term (current) use of anticoagulants | CPT/HCPCS: 85610; 99211 ==

== ENCOUNTER 2024-11-23 10:35 | Outpatient (REF) | payer MEDICARE, MEDICAID, SELFPAY ==
[2024-11-23 11:31] LABS: Prothrombin Time 81.2 SEC (10.9-12.4)
[2024-11-23 11:32] LABS: INTERNATIONAL NORM RATIO 7.1 (0.9-1.1)
== END 2024-11-23 10:36 | disposition home or self-care (01) ==
LOC: HO.LAB 10:35
PROVIDERS: PCP Internal Medicine; Visit Provider Internal Medicine Medical Oncology
DX: Z51.81 Encounter for therapeutic drug level monitoring (principal); Z79.01 Long term (current) use of anticoagulants
CPT/HCPCS: 36415; 85610; 99211; 99212

== ENCOUNTER 2024-11-23 10:35 | Outpatient (AMB) | payer MEDICARE, MEDICAID, SELFPAY ==
[2024-11-23 10:51] LABS: Prothrombin Time Whole Bld POC 80.6 sec (11.1-13.5); ~PT, ~INR - Anti Coag Clinic 6.7 (0.9-1.1)
--- NOTE | 2024-11-23 11:19 | MHC.OFFVISCO ---
Intake Intake Visit Reasons: Anticoagulation Allergies No Known Allergies Allergy (Mild, Verified 11/23/24 10:43) NOT APPLICABLE Medication List - Last Reconciled 11/23/24 by Nivia Beaver RN albuterol sulfate 90 mcg/actuation (Ventolin HFA) 1 puff inhalation RQ4H PRN amantadine HCl 100 mg PO BID atorvastatin 40 mg PO BEDTIME carbamide peroxide (Debrox) 5 DROPS EACH EAR EVERY 2 WEEKS cholecalciferol (vitamin D3) (Vitamin D3) 25 mcg PO QAM dicyclomine 20 mg PO BID divalproex ER 1,000 mg PO BEDTIME ferrous sulfate 324 mg PO DAILY [FLUCINOLONE TOPICAL DAILY ] tccsvhesyro-oztmwhyfh-hxvaukov 200-62.5-25 mcg (Trelegy Ellipta) 1 inh inhalation DAILY levothyroxine 25 mcg PO DAILY@0600 loratadine 10 mg PO DAILY magnesium oxide 400 mg PO BIDPC multivitamin with folic acid 400 mcg (Daily-Stanley (with folic acid)) 1 tab PO DAILY pantoprazole 40 mg PO BID revefenacin (Yupelri) 175 mcg (3 mL) inhalation DAILY 30 days risperidone (Risperdal) 4 mg PO BID tamsulosin 0.4 mg PO BEDTIME valproic acid 1000mg orally daily; warfarin See Protocol 2 mg orally 4MG DAILY OR DIRECTED; 4MG DAILY OR DIRECTED Nursing Note Pt to ACS in W/C accompanied by mental health worker. INR: 6.7 by POC out of therapeutic range of 2-3. Pt sent to lab for stat venous draw for verification. Venous result: 7.1 Medications and supplements reviewed Patient status: feels well, denies complaints. Questioned pt about ETOH or street drug use and he denies both other than a little marijuana. Denies pain or use of Tylenol. Appetite good. denies stress. Medications or supplements: no changes Diet: no changes Denies any signs and symptoms of bleeding or clotting or unusual bruising Bleeding, bruising, clotting discussed. Instructed to avoid physical activities with risk of injury. Also instructed to go to ED if he hits his head to have a Ct scan to R/O bleed. Nutritional guidance given: to have a serving of broccoli today and tomorrow. Dose: hold today's dose of 4mg and pt to return tomorrow for retest. F/U INR Date: tomorrow 11/24/24 Patient and health care worker verbalizing understanding of instructions with read back given. T/C to pcp Dr Trudy Rascon, [facility]. Reported critical value with dosing plan and next retest date. Anti-Coag Initial Assessment Social Hx Patient Tobacco Use Status: Refuse Tobacco use screen alcohol intake: never Coding Level of Care Code Est Patient Level 2 Diagnoses Current use of anticoagulant therapy Z79.01 Comment critical INR, lab draw for verification, pt teaching, notified Assessment & Plan Assessment & Plan (1) Current use of anticoagulant therapy: Code(s): Z79.01 - alf (current) use of anticoagulants Category: Medical Orders: Orders Prothrombin Time INR Today Z79.01 - grain shoveler (current) use of anticoagulants
--- OUTSIDE RECORDS SUMMARY | 2024-11-23 12:01 | XMS_ITS | Encounter Summary ---
Author Organization [employer] Address [address] [facility] 7 [place] [address] Care Team Providers Care Scrap Preparation Supervisor Name Role Phone Bc Hunter MD Primary Care Prov ider Encounter Details Date Type Department Care Team (Late st Contact Info) Description 09/20/2023 Orders [address] [facility] MED & PEDS [address] [place], [place] [phone] Bc Hunter MD [address] [place] [address] Social History Tobacco Use Types Packs/Day Years [...] Care Team (Late st Contact Info) Description 11/24/2024 2:30 PM EDT Office Visit [facility] MED & PEDS [address] [place] [address] Zafar Richard MD [address] [place] [address] 01/08/2025 11:15 AM EDT Office Visit [facility] MED & PEDS [address] [place] [address] Bc Hunter MD [address] [place] [address] documented as of this encounter Visit Diagnoses Not on filedocumented in this encounter Additional Health Concerns Assessment Noted Time PHQ-9 Depression Total Score: 0 07/11/19 23 11:26 AM EDT documented as of this encounter Care Teams Scrap Preparation Supervisor Relationship Specialty Start Date End Date Bc Hunter MD [address] [place] [address] PCP - General Internal Medicine 01/03/19 documented as of this encounter
--- OUTSIDE RECORDS SUMMARY | 2024-11-23 12:01 | XMS_ITS | Encounter Summary ---
Author Organization [employer] Address [address] [place] [address] [address] [place] [address] Care Team Providers Care Computer Systems Architect Name Role Phone Bc Hunter MD Primary Care Prov ider Encounter Details Date Type Department Care Team (Late Contact Info) Description 05/18/2022 Orders Only [facility] [address] [place] [address] Bc Hunter MD [address] [place] [address] S/P aortic valve replacement Social History Tobacco [...] Department Care Team (Late Contact Info) Description 11/24/2024 2:30 PM EDT Office Visit [facility] [address] [place] [address] Zafar Richard MD [address] [place], [place] [id number] 01/08/2025 11:15 AM EDT Office Visit [facility] [address] [place] [address] Bc Hunter MD [address] [place] [address] documented as of this encounter Visit Diagnoses Diagnosis S/P aortic valve replacement Heart valve replaced by other means documented in this encounter Care Teams Computer Systems Architect Relationship Specialty Start Date End Date Bc Hunter MD [address] [place] [address] PCP - General Internal Medicine 01/03/19 documented as of this encounter
--- OUTSIDE RECORDS SUMMARY | 2024-11-23 12:01 | XMS_ITS | Encounter Summary ---
Author Organization [employer] Address [address] [facility] [address] [place] [address] Care Team Providers Care Vp [employer]ity [employer] Name Role Phone Bc Hunter MD Primary Care Prov ider Reason for Visit * Reason Comments Med Change Request Encounter Details Date Type Department Care Team ([facility] Contact Info) Description 11/18/2024 Refill [facility] [address] [place] [address] Bc Hunter MD [address] [place] [address] Mixed hyperlipidemia Social History Tobacco Use Types [...] Description 11/24/2024 2:30 PM EDT Office Visit [facility] [address] [place] [address] Zafar Richard MD [address] [place] [address] 01/08/2025 11:15 AM EDT Office Visit [facility] [address] [place] [address] Bc Hunter MD [address] [place] [address] documented as of this encounter Visit Diagnoses Diagnosis Mixed hyperlipidemia documented in this encounter Additional Health Concerns Assessment Noted Time PHQ-9 Depression Total Score: 0 09/30/19 24 11:02 AM EDT documented as of this encounter Care Teams Vp Celebrity Services Relationship Specialty Start Date End Date Bc Hunter MD [address] [place] [address] PCP - General Internal Medicine 01/03/19 documented as of this encounter
--- OUTSIDE RECORDS SUMMARY | 2024-11-23 12:01 | XMS_ITS | Clinical Summary ---
Author Organization [employer] Address [address] [place] [address] [address] [place] [address] Care Team Providers Care Account Services Associate Name Role Phone Bc Hunter MD Primary Care Prov ider Allergies No known active allergies Medications tamsulosin (Flomax) 0.4 MG 24 hr capsule TAKE 1 CAPSULE BY MOUTH EVERY DAY IN THE MORNING 90 capsule Active benztropine (Cogentin) 1 MG tablet Take [...] tablet by mouth 2 times daily. Active ketoconazole (Nizoral) 2 % shampooIndication s:Seborrheic [...] IN THE MORNING 90 tablet 3 Active albuterol 108 (90 Base) MCG/ACT inhaler Inhale 2 puffs every 4 (four) hours if needed for wheezing. 18 g 1 024 2024 Active Acetaminophen Extra Strength 500 MG tablet TAKE 1 TABLET (500 MG) BY MOUTH EVERY 6 (SIX) HOURS IF NEEDED FOR MODERATE PAIN. 60 tablet 3 025 Active guaiFENesin (Mucinex) 600 MG 12 [...] EVENING MEAL. 180 tablet 1 025 Active Trelegy Ellipta 100-62.5-25 MCG/ACT aerosol powder Inhale 1 puff in the morning. 60 each 3 025 Active Multiple Vitamin (Daily-Stanley Multivitamin) tablet Take 1 tablet by mouth in the morning. TAKE 1 TABLET BY MOUTH EVERY DAY WITH FOOD 90 tablet 3 025 Active magnesium oxide (Mag-Ox) 400 (240 Mg) MG tabletIndications :Mixed hyperlipidemia TAKE 1 TABLET BY MOUTH Morning and afternoon 180 tablet 1 025 Active warfarin (Coumadin) 2 MG tabletIndications :S/P aortic valve replacement TAKE 1-2 TABLETS EVERY EVENING DIRECTED BY COUMADIN CLINIC 180 tablet 1 025 Active Ventolin HFA 108 (90 Base) MCG/ACT inhaler INHALE 2 PUFFS EVERY 4 HOURS NEEDED 18 g 3 025 Active atorvastatin (Lipitor) 40 MG tabletIndications :Mixed hyperlipidemia Take 1 tablet (40 mg) by mouth in the morning. TAKE 1 TABLET BY MOUTH EVERY DAY IN THE EVENING 90 tablet 1 025 Active loratadine (Claritin) 10 MG tabletIndications :Congestion of nasal sinus Take 1 tablet (10 mg) by mouth Once per day. TAKE 1 TABLET (10 MG) BY MOUTH DAILY IN THE MORNING 90 tablet 2 025 2025 Active ferrous sulfate 325 (65 Fe) MG tabletIndications :Iron deficiency anemia due to chronic blood loss Take 1 tablet (325 mg) by mouth in the morning. 90 tablet 3 025 Active albuterol (ProAir HFA) 108 (90 Base) MCG/ACT inhaler inhale 2 puff by inhalation route every 4 hours as needed 18 g 3 024 2024 Discontinued ferrous sulfate 325 (65 Fe) MG tablet TAKE 1 TABLET BY MOUTH EVERY MORNING 90 tablet 3 025 2024 Discontinued(R eorder (will not trigger notification to Pharmacy)) loratadine (Claritin) 10 MG tablet TAKE 1 TABLET (10 MG) BY MOUTH DAILY NEEDED FOR ALLERGIES 30 tablet 2 025 2024 Discontinued(R eorder (will not trigger notification to Pharmacy)) atorvastatin (Lipitor) 40 MG tabletIndications :Mixed hyperlipidemia TAKE 1 TABLET BY MOUTH EVERY DAY IN THE MORNING 90 tablet 1 025 2024 Discontinued(R eorder (will not trigger notification to Pharmacy)) Active Problems Problem Noted Date Diagnosed Date Psychoactive substance abuse 10/02/2024 Smoking 06/19/2024 Nodule of left lung 04/26/2024 Assessment & Plan (10/02/2024 1:15 PM EDT): Patient does not want to undergo biopsy, will follow up pneumology reccomendations Assessment & Plan (04/26/2024 11:54 AM EST): Will order a follow up LDCT scan, solutions developer was told to contact pulmonology office Seborrheic [...] back Hyperlipemia, mixed 07/20/2022 Assessment & Plan (10/02/2024 1:13 PM EDT): New labs will be ordered for guidance of therapy, continue current therapy Assessment & Plan (09/30/2023 11:43 AM EDT): [...] valve replacement 04/28/2022 Overview (07/20/2023): Followed by [facility] Assessment & Plan (07/20/2023 8:46 PM EDT): Cardiology consult scheduled 07/20/23 No reported hx of bleeding, no reported chest pain/shortness of breath Discussed with PCP and [facility] (Lori FLETCHER). Plan to bridge pt from Eliquis to Coumadin. May DC Eliquis once Coumadin therapeutic Coumadin dosinmg on Wednesday and Wednesday 4mg all other days of the week Plan: [facility] Coagulation clinic to reach out to residential [...] chronic kidney disease 03/10/2019 Assessment & Plan (10/02/2024 1:14 PM EDT): Followed by nephrology, no changes will be made Assessment & Plan (09/30/2023 11:41 AM EDT): Followed by nephrology, his renal function has remained stable, continue bp control, no changes will be made Assessment & Plan (10/28/2022 12:08 PM EDT): Followed by nephrology Hypothyroidism 09/22/2011 Assessment & Plan (10/02/2024 1:13 PM EDT): Clinically euthyroid, will order new labs for guidance of therapy Assessment & Plan (09/30/2023 11:42 AM EDT): On levothyroxine, has remained clinically and chemically euthyroid, no changes will be made Assessment & Plan (05/06/2023 12:59 PM EST): Clinically euthyroid will order new labs for guidance of therapy, no nodules palpated Mild chronic obstructive pulmonary disease 09/21 Other schizophrenia 09/22/2011 Overview (07/20/2023): Living in Care Home Assessment & Plan (10/02/2024 1:14 PM EDT): Followed by psych, no suicidal/homicidal ideas Assessment & Plan (07/30/2023 12:17 AM EDT): [...] Encounters Date Type Department Care Team Description 11/23/2024 Telephone [facility] [address] [place] [address] Bc Hunter MD CRITICAL LAB 11/23/2024 Orders Only GENERIC EXTERNAL DATA DEPARTMENT Provider, Generic External Data 11/23/2024 Telephone [facility] [address] [place] [address] Bc Hunter MD chart prep 11/22/2024 Telephone [facility] [address] [place] [phone] cB Hunter MD Nurse Triage 11/18/2024 Refill [facility] [address] [place] [address] Bc Hunter MD Mixed hyperlipidemia 11/15/2024 Telephone [facility] [address] [place] [address] Bc Hunter MD Call Back Request 11/06/2024 Orders Only GENERIC EXTERNAL DATA DEPARTMENT Provider, Generic External Data 10/30/2024 Telephone [facility] [address] [place] [address] Bc Hunter MD Lab Orders 10/29/2024 Refill [facility] [address] [place] [address] Bc Hunter MD 10/23/2024 Orders Only GENERIC EXTERNAL DATA DEPARTMENT Provider, Generic External Data 10/17/2024 Refill [facility] [address] [place] [address] Oralia Mazariegos FNP S/P aortic valve replacement 10/16/2024 Orders Only GENERIC EXTERNAL DATA DEPARTMENT Provider, Generic External Data 10/09/2024 Orders Only GENERIC EXTERNAL DATA DEPARTMENT Provider, Generic External Data 10/03/2024 Orders Only [facility] [address] [place] [address] Bc Hunter MD Mixed hyperlipidemia 10/02/2024 11:15 AM EDT Office Visit [facility] [address] [place] [phone] Bc Hunter MD Psychoactive substance abuse (CMS/HCC) (Primary Dx); Dietary counseling; Exercise counseling; Other schizophrenia (CMS/HCC); Stage 3a chronic kidney disease (CMS/HCC); Hyperlipemia, mixed; Acquired hypothyroidism; Nodule of left lung 10/02/2024 Telephone [facility] [address] [place] [address] Bc Hunter MD 10/02/2024 Travel 10/02/2024 Orders Only GENERIC EXTERNAL DATA DEPARTMENT Provider, Generic External Data 09/26/2024 Orders Only [facility] External Provider, [facility] 09/25/2024 Patient Outreach [facility] [address] [place] [phone] Bc Hunter MD Pre-visit Planning (SDOH screening unable to complete. ) 09/25/2024 Orders Only GENERIC EXTERNAL DATA DEPARTMENT Provider, Generic External Data 09/16/2024 Refill [facility] [address] [place] [phone] Oralia Mazariegos, CAD CAM PROGRAMMER Mixed hyperlipidemia 09/14/2024 Telephone [facility] [address] [place] [address] Bc Hunter MD 09/11/2024 Orders Only GENERIC EXTERNAL DATA DEPARTMENT Provider, Generic External Data 08/29/2024 Telephone [facility] [address] [place] [phone] Bc Hunter MD Medication Question 08/29/2024 Refill [facility] [address] [place] [address] Bc Hunter MD 08/28/2024 Orders Only GENERIC EXTERNAL DATA DEPARTMENT Provider, [...] Sign Reading Time Taken Comments Blood Pressure 120/63 10/02/2024 11:30 AM EDT Pulse 87 10/02/2024 11:30 AM EDT Temperature 36 C (96.8 F) 10/02/2024 11:30 AM EDT Respiratory Rate 16 10/02/2024 11:30 AM EDT Oxygen Saturation 98% 07/03/2024 11:28 AM EDT Inhaled Oxygen Concentration - - Weight 81.6 kg (180 lb) 07/03/2024 11:28 AM EDT Height 177.8 cm (5' 10 ) 10/02/2024 11:30 AM EDT Body Mass Index 25.83 07/03/2024 11:28 AM EDT Plan of Treatment Upcoming Encounters Date Type Department Care Team (Late st Contact Info) Description 11/24/2024 2:30 PM EDT Office Visit [facility] [address] [place] [address] Zafar Richard MD [address] [place] [address] 01/08/2025 11:15 AM EDT Office Visit [facility] [address] [place] [address] Bc Hunter MD [address] [place] [address] Health Maintenance Due Date Last Done Comments CT Colonography 1950 Colonoscopy 1950 Colorectal Cancer Screening 1950 FIT DNA/Cologuard 1950 FIT 1950 FOBT 1950 Sigmoidoscopy 1950 RSV Patients and Patients Aged 60 years or older (1 - Risk 60-74 years 1-dose series) 2012 Zoster Vaccines (2 of 2) 06/27/2021 05/02/2021 Pneumococcal Vaccine: 50+ Years (3 of 3 - PCV20 or PCV21) 03/17/2024 03/17/2019, 11/22/2014, 06/17/2000 SDOH Screening 07/18/2024 07/19/2023 Depression Screening 09/29/2024 09/30/2023, 09/30/19 24 COVID-19 Vaccine ( season) 2024 01/14/2024, 01/09/2021, 05/16/2020, Additional history exists Influenza Vaccine (#1) 2024 , 01/06/2022, 12/11/2020, Additional history exists Alcohol/Substance Use Screening 04/26/2025 04/26/2024 Tobacco Screening [...] Name Priority Date/Time Associated Diagnosis Comments PROTHROMBIN TIME-INR Routine 11/23/2024 11:10 AM EDT PROTHROMBIN TIME WHOLE BLD POC Routine 11/23/2024 10:47 AM EDT ~PT, ~INR - ANTI COAG CLINIC Routine 11/23/2024 10:47 AM EDT PROTHROMBIN TIME WHOLE BLD POC Routine 11/06/2024 11:24 AM EDT ~PT, ~INR - ANTI COAG CLINIC Routine 11/06/2024 11:24 AM EDT T-SPOT(R).TB Routine 10/30/2024 1:08 PM EDT Screening for tuberculosis PROTHROMBIN TIME WHOLE BLD POC Routine 10/23/2024 11:47 AM EDT ~PT, ~INR - ANTI COAG CLINIC Routine 10/23/2024 11:47 AM EDT PROTHROMBIN TIME WHOLE BLD POC Routine 10/16/2024 10:56 AM EDT ~PT, ~INR - ANTI COAG CLINIC Routine 10/16/2024 10:56 AM EDT PROTHROMBIN TIME WHOLE BLD POC Routine 10/09/2024 11:11 AM EDT ~PT, ~INR - ANTI COAG CLINIC Routine 10/09/2024 11:11 AM EDT PROTHROMBIN TIME WHOLE BLD POC Routine 10/02/2024 10:13 AM EDT ~PT, ~INR - ANTI COAG CLINIC Routine 10/02/2024 10:[address] CHEST WO CONTRAST Routine 09/27/2024 1:47 PM EDT PROTHROMBIN TIME WHOLE BLD POC Routine 09/25/2024 11:14 AM EDT ~PT, ~INR - ANTI COAG CLINIC Routine 09/25/2024 11:14 AM EDT PROTHROMBIN TIME WHOLE BLD POC Routine 09/11/2024 10:31 AM EDT ~PT, ~INR - ANTI COAG CLINIC Routine 09/11/2024 10:31 AM EDT PROTHROMBIN TIME WHOLE BLD POC Routine 08/28/2024 11:21 AM EDT ~PT, ~INR - ANTI COAG CLINIC Routine 08/28/2024 11:21 AM EDT LIPID PANEL, STANDARD Routine 05/06/2023 11:48 AM EST Hyperlipemia, mixed HEPATITIS C AB W/REFL TO HCV RNA, QN, PCR Routine 07/10/2022 11:31 AM EDT S/P aortic valve replacement Pre-op evaluation from Last 3 Months or Most Recently Relevant to Health Maintenance Results * (ABNORMAL) Prothrombin Time-INR (11/23/2024 11:10 AM EDT) Prothrombin Time 81.2(H) 10.9 - 12.4 SEC [facility] INTERNATIONAL NORM RATIO 7.1(HH) 0.9 - 1.1 [facility] Comment:RESULTS OF INR STEPHENS D TO AND READ BACK BY NATALIE 11/23/24 AT 1131 BY HSOAIB.INTERNATIONAL NORMALIZED RATIO (INR) REFERENCE RANGES Reference RangeFor patients not on anticoagulant therapy: 0.9 - 1.1INR ranges for oral anticoagulanttherapy:For prevention and treatment of venous thrombosis and pulmonary embolism: 2.0 - 3.0For acute myocardial infarction with aspirin therapy: 2.0 - 3.0For acute myocardial infarction without aspirin therapy: 3.0 - 4.0For patients with mechanical prosthetic heart valves: 2.5 - 3.5 11/23/2024 11:1 0 AM EDT 11/23/2024 11:10 AM EDT us Generic External Data Provider LAB BLOOD ORDERAB LES Final Result Performing Organization Address [facility] Co de Phone Number [facility] [address] [place] [phone] * (ABNORMAL) PROTHROMBIN TIME WHOLE BLD POC (11/23/2024 10:47 AM EDT) Only the most recent of9 resultswithin the time period is included. Protime 80.6(H) 11.1 - 13.5 sec [facility] 11/23/2024 10:4 7 AM EDT 11/23/2024 10:51 AM EDT us Generic External Data Provider LAB BLOOD ORDERAB LES Final Result Performing Organization Address [facility]/ZIP Co de Phone Number [facility] [address] [place] [phone] * (ABNORMAL) ~PT, ~INR - ANTI COAG CLINIC (11/23/2024 10:47 AM EDT) Only the most recent of9 resultswithin the time period is included. Pathologist [facility] Prothrombin Time INR 6.7(HH) 0.9 - 1.1 [facility] Comment:METER #: [id number] TERNATIONAL NORMALIZED RATIO (INR) REFERENCE RANGES Reference RangeFor patients not on anticoagulant therapy: 0.9 - 1.1INR ranges for oral anticoagulanttherapy:For prevention and treatment of venous thrombosis and pulmonary embolism: 2.0 - 3.0For acute myocardial infarction with aspirin therapy: 2.0 - 3.0For acute myocardial infarction without aspirin therapy: 3.0 - 4.0For patients with mechanical prosthetic heart valves: 2.5 - 3.5 11/23/2024 10:4 7 AM EDT 11/23/2024 10:51 AM EDT us Generic External Data Provider LAB BLOOD ORDERAB LES Final Result [facility] [address] [place] [phone] * T-SPOT??.TB (10/30/2024 1:08 PM EDT) [facility] T Spot TB Negative Negative [facility] Comment:A negative test resu lt does not exclude the possibilityof exposure to or infection with Mycobacteriumtuberculosis (M. tuberculosis). Patients with recentexposure to TB infected individuals exhibiting anegative T-SPOT.TB result should be considered forretesting within 6 weeks or if other relevant clinicalsymptoms indicate. Results from T-SPOT.TB testing mustbe used in conjunction with each individual'sepidemiological history, current medical status,and results of other diagnostic evaluations.The T-SPOT.TB test is qualitative and results arereported as positive, borderline, or negative, giventhat the test controls perform as expected. In linewith the Centers for Disease Control and Prevention's2010 recommendation to report quantitative measurementsalongside the qualitative result, the laboratoryprovides spot counts for informational purposes only.The T-SPOT.TB test should not be interpreted as aquantitative test. TS PANEL A 0 [facility] TS PANEL B 1 [facility] Negative Control Passed [facility] Positive Control Passed [facility] Comment:For additional infor vasu, please refer tohttp://education.[place]. com. cn/faq/SDL312(This link is being provided for informational/educational purposes only.)THIS TEST WAS PERFORMED AT:[employer] [id number] [place] [address]IAODYPMPITER CARUSO MD,PHD 10/30/2024 1:08 PM EDT 10/30/2024 2:22 PM EDT us Bc Rascon MD LAB BLOOD ORDERABL ES Final Result Performing Organization Address City/State/[facility] Co de Phone Number [facility] [address] [place] [phone] * CT Chest w/o Contrast (09/27/2024 1:47 PM EDT) Anatomical Region Laterality Modality Body, Chest Computed Tomogra phy 09/27/2024 1:47 PM EDT Narrative 09/27/2024 1:47 PM EDT [address] [address] [address] Scan Report Signed with Deanna Patient: Chris Zaragoza MR#: [id number] : 1950 Acct:[id number] Age/Sex: 74 / M ADM Date: 09/26/24 Loc: HO.CT Attending Dr: Lenny Irving MD Ordering Physician: Lenny Irving MD Date of Service: 09/26/24 Procedure(s): CT chest wo IV con Accession Number(s): [id number] cc: Bc Hunter MD; Lenny Irving MD Report Number: [id number]: Total DLP = 198.00 mGy-cm ADDENDUM This document has been electronically signed by: Jessica Bliss MD on 09/27/2024 13:47:09 ADDENDUM: Receipt of this report by the clinical staff was confirmed with [employer]NA Bojorquez Tech on Sep 27, 2024 13:57:00 EDT. This document has been electronically signed by: Katelyn Silva on 09/27/2024 13:58:06 Addendum Dictated By: Jessica Bliss MD Addendum Signed By: <Electronically signed by Jessica Bliss MD in [place]> 09/27/24 135 Addendum Cosigned By: DD/ /14/1346 TD/TT: 09/27/2412/14/1357 CLINICAL HISTORY: R91.1 - Solitary pulmonary nodule Exam: CT chest without IV contrast Comparison: CT/ND/SR - CT ANGIO CHEST PE PROTOCOL - 06/14/24 13:[address]/ND/SR - CT CHEST WO IV CON - 06/29/22 11:13 EDT Findings: 9 mm spiculated nodule and 4 mm spiculated nodule left lung apex on image 30 and image 31, 5 mm triangular nodule left upper lobe on image 41 are stable since 06/14/2024 CT, not seen on CT exam from 2022. Posterior right upper lobe patchy and nodular opacities, improved since 06/14/2024. Right lower lobe small pleural effusion, pleural thickening and calcification, adjacent wedge-shaped consolidation likely atelectasis unchanged. Small left pleural effusion is stable since 06/14/2024, improved when compared to [address]22 CT. Stable centrilobular and paraseptal emphysema of the upper lobes, probably smoking related. No pneumothorax. Mild cardiomegaly, aortic valve prosthesis noted. Atherosclerotic calcification of the aorta and moderate coronary artery calcification. Dilated pulmonary trunk, same as before, can be seen in pulmonary arterial hypertension. No bulky lymph nodes. Imaged lower neck, upper abdomen and chest wall are unremarkable. Degenerative changes of thoracic spine. Stable old posttraumatic and advanced degenerative changes of the glenohumeral joint. Impression: 1. Recently stable left upper lobe pulmonary nodules with dominant nodule 9 mm and spiculated, new since 2022 CT exam, indeterminate, recommend further evaluation by PET-CT. 2. Improved right upper lobe patchy and nodular opacities, likely residual pneumonia or sequela of prior pneumonia. 3. Stable small right pleural effusion, pleural thickening and calcification, neighboring rounded atelectasis of lower lobe. 4. Stable small left pleural effusion. 5. Mild cardiomegaly, atherosclerotic disease and suggestion of pulmonary arterial hypertension. 6. Additional chronic findings, as discussed. This document has been electronically signed by: Jessica Bliss MD on 09/27/2024 13:47:09 Dictated By: Jessica Bliss MD Signed By: <Electronically signed by Jessica Bliss MD in OV> 09/27/241346 DD/ 46 TD/TT: 09/27/241346 Print Color Matcher: Procedure Note Donotuseinterpreter, Image - 09/27/[address] [place] [address] [address] Scan Report Signed with Addenda Patient: Amos Zaragoza#: [id number] : 3Acct:[id number] Age/Sex: 74 / MADM Date: 09/26/24 Loc: HO.CT Attending Dr: Lenny Irving MD Ordering Physician: Lenny Irving MD Date of Service: 09/26/24 Procedure(s): CT chest wo IV con Accession Number(s): [id number] cc: Bc Hunter MD; Lenny Irving MD Report Number: [id number]: Total DLP = 198.00 mGy-cm ADDENDUM This document has been electronically signed by: Jessica Bliss MD on 09/27/2024 13:47:09 ADDENDUM: Receipt of this report by the clinical staff was confirmed with Gregory Barragan construction scheduler on Sep 27, 2024 13:57:00 EDT. This document has been electronically signed by: Katelyn Silva on 09/27/2024 13:58:06 Addendum Dictated By: Jessica Bliss MD Addendum Signed By: <Electronically signed by Jessica Bliss MD inOV> 09/27/241357 Addendum Cosigned By: DD/ /14/1346 TD/TT: 07/12/14/1357 CLINICAL HISTORY: R91.1 - Solitary pulmonary nodule Exam: CT chest without IV contrast Comparison: CT/ND/SR - CT ANGIO CHEST PE PROTOCOL - 06/14/24 13:[address]/ND/SR - CT CHEST WO IV CON - 06/29/22 11:13 EDT Findings: 9 mm spiculated nodule and 4 mm spiculated nodule left lung apex on image 30 and image 31, 5 mm triangular nodule left upper lobe on image 41 are stable since 06/14/2024 CT, not seen on CT exam from 2022. Posterior right upper lobe patchy and nodular opacities, improved since 06/14/2024. Right lower lobe small pleural effusion, pleural thickening and calcification, adjacent wedge-shaped consolidation likely atelectasis unchanged. Small left pleural effusion is stable since 06/14/2024, improved when compared to [address]22 CT. Stable centrilobular and paraseptal emphysema of the upper lobes, probably smoking related. No pneumothorax. Mild cardiomegaly, aortic valve prosthesis noted. Atherosclerotic calcification of the aorta and moderate coronary artery calcification. Dilated pulmonary trunk, same as before, can be seen in pulmonary arterial hypertension. No bulky lymph nodes. Imaged lower neck, upper abdomen and chest wall are unremarkable. Degenerative changes of thoracic spine. Stable old posttraumatic and advanced degenerative changes of the glenohumeral joint. Impression: 1. Recently stable left upper lobe pulmonary nodules with dominant nodule 9 mm and spiculated, new since 2022 CT exam, indeterminate, recommend further evaluation by PET-CT. 2. Improved right upper lobe patchy and nodular opacities, likely residual pneumonia or sequela of prior pneumonia. 3. Stable small right pleural effusion, pleural thickening and calcification, neighboring rounded atelectasis of lower lobe. 4. Stable small left pleural effusion. 5. Mild cardiomegaly, atherosclerotic disease and suggestion of pulmonary arterial hypertension. 6. Additional chronic findings, as discussed. This document has been electronically signed by: Jessica Bliss MD on 09/27/2024 13:47:09 Dictated By: Jessica Bliss MD Signed By: <Electronically signed by Jessica Bliss MD in OV> 09/27/24 1347 DD/ 1347 TD/TT: 09/27/24 1347 Print Color Matcher: [facility] External Provider IMG CT PROCEDURES Edited Result - Final * Lipid Panel, Standard (05/06/2023 11:48 AM EST) Triglycerides 61 <150 mg/dL [facility] Comment:Desirable Triglyceri de: less than 150 mg/dLBorderline High Triglyceride 150-199 mg/dLHigh Triglyceride: 200-499 mg/dLVery High Triglyceride: greater than or equal to 5OO mg/dL Cholesterol 166 <200 mg/dL [facility] Comment:Desirable Cholestero l: less than 200 mg/dLBorderline High Cholesterol: 200-239 mg/dLHigh Cholesterol: greater than 239 mg/dL LDL Cholesterol Calculated 94 <100 mg/dL [facility] Comment:Desirable LDL: less than 100 mg/dLNear Optimal/Above Optimal LDL: 110- 129 mg/dLBorderline High LDL: 130-159 mg/dLHigh LDL: 160-189 mg/dLVery High LDL: greater than or equal to 190 mg/dL HDL Cholesterol 60 >40 mg/dL [facility] Comment:Desirable HDL: great er than 40 mg/dL Note: This HDL assay may give artificially low results in patients with liver disease. Blood Venous blood specimen / Unknown 05/06/2023 11:48 AM EST 05/06/2023 2:09 PM EST us Bc Rascon MD LAB BLOOD ORDERABL ES Final Result [facility] [address] [place] [phone] * Hepatitis C Antibody with Reflex to HCV, RNA, Quantitative, Real-Time PCR (07/10/2022 11:31 AM EDT) Hepatitis C Antibody NON-REACT DEZ NON-REACT DEZ [facility] [place] PPI Index 0.09 <1.00 [facility] [place] [facility] Comment: HCV antibody was non-reactive. There is no laboratory evidence of HCV infection. In most cases, no further action is required. However, if recent HCV exposure is suspected, a test for HCV RNA (test code 36526) is suggested. For additional information please refer to http://education.[employer]/faq/KQG35j4 (This link is being provided for informational/ educational purposes only.) Blood Venous blood specimen / Unknown 07/10/2022 11:31 AM EDT 07/10/2022 11:32 AM EDT Narrative [facility] - 07/11/2022 5:06 AM EDT FASTING:NO FASTING: NO Bc Rascon MD LAB BLOOD ORDERABL ES Final Result [facility] [address], [place] [address] Film [facility] [address] [place] [address] from Last 3 Months or Most Recently Relevant to Health [place] [id number] [facility] STANDARD Care Teams Account Services Associate Relationship Specialty Start Date End Date Bc Hunter MD [address] [place] [address] PCP - General Internal Medicine 01/03/19
--- OUTSIDE RECORDS SUMMARY | 2024-11-23 12:01 | XMS_ITS | Clinical Summary ---
Author Organization 175 [facility] Address [address] [place] [address] Phone Care Team Providers Care Bill Collector Name Role Phone Bc Hunter Primary Care Provide r Medical History Medical History Date Comments Heart valve replaced by other means 06/29/2011 DX:Heart valve replaced by other means Asthma 06/29/2011 DX:Asthma Tobacco abuse 06/29/2011 DX:Tobacco abuse Schizophrenia ([facility] V24, CMS/HCC V28) 06/29/2011 DX:Schizophrenia ([facility]) [...] Insurance MEDICARE MEDICAID - [place] Care Teams Bill Collector Relationship Specialty Start Date End Date Bc Hunter [address] [place] [phone] PCP - General Internal Medicine 04/13/24
--- OUTSIDE RECORDS SUMMARY | 2024-11-23 12:01 | XMS_ITS | Encounter Summary ---
Author Organization [facility] Address [address] [place] [address] Phone Care Team Providers Care Wafer Polishing Lead Worker Name Role Phone Bc Yates Primary Care Provider [phone] Encounter Details Date Type Department Care Team (Late st Contact Info) Description 05/26/2021 Documentation Only [facility] [address] [place] [address] Trever Lopez MD [address] [place] [address] [place] [address] Social History Tobacco Use Types [...] [facility] [address] [place] [address] Trever Lopez MD [address] [place] [address] [place] [address] documented as of this encounter Visit Diagnoses Not on filedocumented in this encounter Care Teams Wafer Polishing Lead Worker Relationship Specialty Start Date End Date Bc Yates PCP - General Internal Medicine 10/05/22 documented as of this encounter
--- OUTSIDE RECORDS SUMMARY | 2024-11-23 12:01 | XMS_ITS | Encounter Summary ---
Author Organization [facility] Address [address] [place] [address] Phone Care Team Providers Care Theatre Professor Name Role Phone Bc Yates Primary Care Provider [phone] Reason for Visit * Reason Comments Med Refill Encounter Details Date Type Department Care Team (Late st Contact Info) Description 01/13/2022 Refill [facility] [address] [place] [address] Trever Lopez MD [address] [facility] [address] [place] [address] Social History Tobacco Use Types [...] Visit [facility] [address] [place] [address] Trever Lopez MD [address] [address] [place] [address] documented as of this encounter Visit Diagnoses Not on filedocumented in this encounter Care Teams Theatre Professor Relationship Specialty Start Date End Date Bc Yates PCP - General Internal Medicine 10/05/22 documented as of this encounter
--- OUTSIDE RECORDS SUMMARY | 2024-11-23 12:01 | XMS_ITS | Clinical Summary ---
Author Organization [facility] [place] Address [address] [place] [address] [place] [address] Phone Care Team Providers Care Hide Cleaner Name Role Phone YatesBc Primary Care Provider Allergies No known active allergies Medications D3-50 1.25 MG (18808 UT) capsule TAKE 1 CAPSULE BY MOUTH [...] Visit [facility] [address] [facility] [place] [address] Trever Lopez MD [address] [facility] [place] [id number] Health Maintenance Due Date Last Done Comments [...] topic Insurance Medicare Medicaid [place] Care Teams Hide Cleaner Relationship Specialty Start Date End Date Bc Yates PCP - General Internal Medicine 10/05/22
--- OUTSIDE RECORDS SUMMARY | 2024-11-23 12:01 | XMS_ITS | Encounter Summary ---
Author Organization [employer] Address 75 [facility] 7 [place] [address] Care Team Providers Care Performance Reporter Name Role Phone Bc Hunter MD Primary Care Prov ider Reason for Visit * Reason Comments Med Refill Encounter Details Date Type Department Care Team ([facility] st Contact Info) Description 08/06/2024 Refill [facility] MEDICINE [address] [place] [address] Bc Hunter MD [address] [place], [place] [phone] Social History Tobacco Use Types Packs/Day Years [...] [facility] MED & PEDS [address] [place] [address] Zafar Richard MD [address] [place] [address] 01/08/2025 11:15 AM EDT Office Visit [facility] MED & PEDS [address] [place] [address] Bc Hunter MD [address] [place] [address] documented as of this encounter Visit Diagnoses Not on filedocumented in this encounter Additional Health Concerns Assessment Noted Time PHQ-9 Depression Total Score: 0 09/30/19 24 11:02 AM EDT documented as of this encounter Care Teams Performance Reporter Relationship Specialty Start Date End Date Bc Hunter MD [address] [place] [address] PCP - General Internal Medicine 01/03/19 documented as of this encounter
--- OUTSIDE RECORDS SUMMARY | 2024-11-23 12:01 | XMS_ITS | Encounter Summary ---
Author Organization [employer] Address 75 [facility] 7 [place] [address] Care Team Providers Care Concrete Foreman Name Role Phone Bc Hunter MD Primary Care Prov ider Reason for Visit * Reason Onset Date Comments Nurse Triage 2024 Encounter Details Date Type Department Care Team ([facility] st Contact Info) Description 2024 Telephone [facility] MED[facility]INE [address] [place] [address] Bc Hunter MD [address] [place], [place] [phone] Nurse Triage Social History Tobacco Use Types [...] EDT called pt to triage, spoke to semiconductor processing group leader, ANTONIO. pt was seen on 06/14 by [facility] pulmonology on 06/14 and due to some distress was sent to the ER for evaluation. pt diagnosed with Pneumonia and put onantibiotics x5 days. worker states pt eating and drinking, not having any fevers or severe/sustained sob, or other associated symptoms. given appt Wednesday with [facility] at 1:00 for exam and follow [...] 2024 3:49 PM EDT Tc from Patient BUSINESS INTELLIGENCE MANAGER to report ED visit on : Date: 06/14 Hospital: [facility] Seen for: pneumonia Symptomatic Yes *if yes message should go to Triage Patient advised will forward to team nurse for follow up [phone] pt documented in this encounter Plan of Treatment Upcoming Encounters Date Type Department Care Team (Late st Contact Info) Description 11/24/2024 2:30 PM EDT Office Visit [facility] MED & PEDS [address] [place] [address] Zafar Richard MD [address] [place] [address] 01/08/2025 11:15 AM EDT Office Visit [facility] MED & PEDS [address] [place] [address] Bc Hunter MD [address] [place] [address] documented as of this encounter Visit Diagnoses Not on filedocumented in this encounter Additional Health Concerns Assessment Noted Time PHQ-9 Depression Total Score: 0 09/30/19 24 11:02 AM EDT documented as of this encounter Care Teams Concrete Foreman Relationship Specialty Start Date End Date Bc Hunter MD [address] [place] [address] PCP - General Internal Medicine 01/03/19 documented as of this encounter
--- OUTSIDE RECORDS SUMMARY | 2024-11-23 12:01 | XMS_ITS | Encounter Summary ---
Author Organization [employer] Address 75 [facility] 7 [place] [address] Care Team Providers Care Field Artillery Cannoneer Name Role Phone Bc Hunter MD Primary Care Prov ider Reason for Visit * Reason Comments Med Change Request Encounter Details Date Type Department Care Team ([facility] Contact Info) Description 07/19/2023 Refill [facility] CHC MED & PEDS [address] [place] [address] Oralia Mazariegos FNP 505 [place] [address] Social History Tobacco Use Types Packs/Day Years [...] Description 11/24/2024 2:30 PM EDT Office Visit [facility] MED & PEDS [address] [place] [address] Zafar Richard MD 505 [place] [address] 01/08/2025 11:15 AM EDT Office Visit [facility] MED & PEDS [address] [place] [address] Bc Hunter MD 505 [place] [address] documented as of this encounter Visit Diagnoses Not on filedocumented in this encounter Additional Health Concerns Assessment Noted Time PHQ-9 Depression Total Score: 0 07/11/19 23 11:26 AM EDT documented as of this encounter Care Teams Field Artillery Cannoneer Relationship Specialty Start Date End Date Bc Hunter MD 505 [place] [address] PCP - General Internal Medicine 01/03/19 documented as of this encounter
--- OUTSIDE RECORDS SUMMARY | 2024-11-23 12:01 | XMS_ITS | Encounter Summary ---
Author Organization [employer] Address 75 [facility] 7 [place] [address] Care Team Providers Care Skip Pitman Name Role Phone Bc Hunter MD Primary Care Prov ider Reason for Visit * Reason Onset Date Comments Nurse Triage 05/26/2023 Encounter Details Date Type Department Care Team ([facility] st Contact Info) Description 05/26/2023 Telephone [facility] MEDICINE [address] [place] [address] Bc Hunter MD [address] [place], [place] [phone] Nurse Triage Social History Tobacco Use Types [...] appetite is poor. Pt weight yesterday at outbound sales advisor apt is 173lbs. Pt was said to be around 202lbs regularly. Pt clothes are fitting very loosely now. Pt also wanted to stop coumadin but, outbound sales advisor instructed that wouldn't be good to do [...] acuity questions The caller accepted this outcome [phone] documented in this encounter Plan of Treatment Upcoming Encounters Date Type Department Care Team (Late st Contact Info) Description 11/24/2024 2:30 PM EDT Office Visit [facility] MED & PEDS [address] [place] [address] Zafar Richard MD 505 [place] [address] 01/08/2025 11:15 AM EDT Office Visit [facility] MED & PEDS [address] [place] [address] Bc Hunter MD 505 [place] [address] documented as of this encounter Visit Diagnoses Not on filedocumented in this encounter Additional Health Concerns Assessment Noted Time PHQ-9 Depression Total Score: 0 07/11/19 23 11:26 AM EDT documented as of this encounter Care Teams Skip Pitman Relationship Specialty Start Date End Date Bc Hunter MD [address] [place] [address] PCP - General Internal Medicine 01/03/19 documented as of this encounter
--- OUTSIDE RECORDS SUMMARY | 2024-11-23 12:01 | XMS_ITS | Encounter Summary ---
Author Organization [employer] Address 75 [facility] 7t [place] [address] Care Team Providers Care Fermenter Champagne Name Role Phone Bc Hunter MD Primary Care Prov ider Encounter Details Date Type Department Care Team ([facility] st Contact Info) Description 11/23/2024 Orders Only GENERIC EXTERNAL DATA DEPARTMENT [...] Description 11/24/2024 2:30 PM EDT Office Visit [facility] MED & PEDS [address] [place] [address] Zafar Richard MD 505 [place] [address] 01/08/2025 11:15 AM EDT Office Visit [facility] MED & PEDS [address] [place] [address] Bc Hunter MD 505 [place] [address] documented as of this encounter Procedures Procedure Name Priority Date/Time Associated Diagnosis Comments PROTHROMBIN TIME-INR Routine 11/23/2024 11:10 AM EDT PROTHROMBIN TIME WHOLE BLD POC Routine 11/23/2024 10:47 AM EDT ~PT, ~INR - ANTI COAG CLINIC Routine 11/23/2024 10:47 AM EDT documented in this encounter Results * (ABNORMAL) Prothrombin Time-INR (11/23/2024 11:10 AM EDT) Prothrombin Time 81.2(H) 10.9 - 12.4 SEC [facility] INTERNATIONAL NORM RATIO 7.1(HH) 0.9 - 1.1 [facility] Comment:RESULTS OF INR STEPHENS D TO AND READ BACK BY NATALIE 11/23/24 AT 1131 BY SHOAIB.INTERNATIONAL NORMALIZED RATIO (INR) REFERENCE RANGES Reference RangeFor [...] 0 AM EDT 11/23/2024 11:10 AM EDT Generic External Data Provider LAB BLOOD ORDERAB LES Final Result Performing Organization Address City/[facility] Co de Phone Number [facility] [address] [place] [phone] * (ABNORMAL) PROTHROMBIN TIME WHOLE BLD POC (11/23/2024 10:47 AM EDT) Protime 80.6(H) 11.1 - 13.5 sec [facility] 11/23/2024 10:4 7 AM EDT 11/23/2024 10:51 AM EDT Generic External Data Provider LAB BLOOD ORDERAB LES Final Result Performing Organization Address [facility] de Phone Number [facility] [address] [place] [phone] * (ABNORMAL) ~PT, ~INR - ANTI COAG CLINIC (11/23/2024 10:47 AM EDT) Prothrombin Time INR 6.7(HH) 0.9 - 1.1 [facility] Comment:METER #: [id number] TERNATIONAL NORMALIZED RATIO (INR) REFERENCE RANGES Reference [...] Provider LAB BLOOD ORDERAB LES Final Result [facility] [address] [place] [phone] documented in this encounter Visit Diagnoses Not on filedocumented in this encounter Additional Health Concerns Assessment Noted Time PHQ-9 Depression Total Score: 0 09/30/19 24 11:02 AM EDT documented as of this encounter Care Teams Fermenter Champagne Relationship Specialty Start Date End Date Bc Hunter MD [address] [place] [address] PCP - General Internal Medicine 01/03/19 documented as of this encounter
--- OUTSIDE RECORDS SUMMARY | 2024-11-23 12:01 | XMS_ITS | Encounter Summary ---
Author Organization [employer] Address 75 [facility] 7 [place] [address] Care Team Providers Care Choir Teacher Name Role Phone Bc Hunter MD Primary Care Prov ider Reason for Visit * Reason Onset Date Comments Call Back Request 11/15/2024 Encounter Details Date Type Department Care Team ([facility] Contact Info) Description 11/15/2024 Telephone [facility] CHC MED & PEDS [address] [place] [address] Bc Hunter MD [address] [place] [address] Call Back Request Social History Tobacco Use [...] encounter Miscellaneous Notes * Telephone Encounter - Kristy Waldrop RN - 11/15/2024 12:04 PM EDT TC to Olga with [facility][NOTE 2]. Stated needs clarification to have claritin scheduled, have atorvastatin scheduled for HS and have FeSulfate scheduled for PM. Advised will fax over telephone order form and have pcp update order to [facility]. Fax sent to [facility][NOTE 2] with confirmation. * Telephone Encounter - Jenn Krishnamurthy - 11/15/2024 11:06 AM EDT Tc from Olga Cage at [facility][NOTE 2] requesting a call back to discuss medication labels Contact Olga at [phone] documented in this encounter Plan of Treatment Upcoming Encounters Date Type Department Care Team (Late st Contact Info) Description 11/24/2024 2:30 PM EDT Office Visit [facility] MED & PEDS [address] [place] [address] Zafar Richard MD [address] [place] [address] 01/08/2025 11:15 AM EDT Office Visit [facility] MED & PEDS [address] [place] [address] Bc Hunter MD [address] [place] [address] documented as of this encounter Visit Diagnoses Diagnosis Mixed hyperlipidemia Iron deficiency anemia due to chronic blood loss Iron deficiency anemia secondary to blood loss (chronic) Congestion of nasal sinus Other diseases of nasal cavity and sinuses documented in this encounter Additional Health Concerns Assessment Noted Time PHQ-9 Depression Total Score: 0 09/30/19 24 11:02 AM EDT documented as of this encounter Care Teams Choir Teacher Relationship Specialty Start Date End Date Bc Hunter MD [address] [place] [address] PCP - General Internal Medicine 01/03/19 documented as of this encounter
--- OUTSIDE RECORDS SUMMARY | 2024-11-23 12:01 | XMS_ITS | Encounter Summary ---
Author Organization [employer] Address 75 [facility] 7 [place] [address] Care Team Providers Care Senior Boiler Operator Name Role Phone Bc Hunter MD Primary Care Prov ider Reason for Visit * Reason Onset Date Comments Referral 12/06/2023 Encounter Details Date Type Department Care Team ([facility] st Contact Info) Description 12/06/2023 Telephone [facility] MEDICINE [address] [place] [address] Bc Hunter MD [address] [place], [place] [phone] Referral Social History Tobacco Use Types Packs/Day [...] be seen [place] if[place] documented in this encounter Plan of Treatment Upcoming Encounters Date Type Department Care Team (Late st Contact Info) Description 11/24/2024 2:30 PM EDT Office Visit [facility] MED & PEDS [address] [place] [address] Zafar Richard MD [address] [place] [address] 01/08/2025 11:15 AM EDT Office Visit [facility] MED & PEDS [address] [place] [address] Bc Hunter MD [address] [place] [address] documented as of this encounter Visit Diagnoses Not on filedocumented in this encounter Additional Health Concerns Assessment Noted Time PHQ-9 Depression Total Score: 0 09/30/19 24 11:02 AM EDT documented as of this encounter Care Teams Senior Boiler Operator Relationship Specialty Start Date End Date Bc Hunter MD [address] [place] [address] PCP - General Internal Medicine 01/03/19 documented as of this encounter
--- OUTSIDE RECORDS SUMMARY | 2024-11-23 12:01 | XMS_ITS | Encounter Summary ---
Author Organization [employer] Address 75 [facility] 7 [place] [address] Care Team Providers Care Silica Mixer Operator Name Role Phone Bc Hunter MD Primary Care Prov ider Reason for Visit * Reason Onset Date Comments Med Refill 05/12/2022 Encounter Details Date Type Department Care Team ([facility] st Contact Info) Description 05/12/2022 Telephone [facility] MEDICINE [address] [place] [address] Bc Hunter MD [address] [place] [address] Med Refill Social History Tobacco Use Types [...] 2:30 PM EDT Office Visit [facility] MED & PEDS [address] [place] [address] Zafar Richard MD [address] [place] [address] 01/08/2025 11:15 AM EDT Office Visit [facility] MED & PEDS [address] [place] [address] Bc Hunter MD [address] [place] [address] documented as of this encounter Visit Diagnoses Not on filedocumented in this encounter Care Teams Silica Mixer Operator Relationship Specialty Start Date End Date Bc Hunter MD [address] [place] [address] PCP - General Internal Medicine 01/03/19 documented as of this encounter
--- OUTSIDE RECORDS SUMMARY | 2024-11-23 12:01 | XMS_ITS | Encounter Summary ---
Author Organization [employer] Address 75 [facility] 7 [place] [address] Care Team Providers Care Judicial Clerk Name Role Phone Bc Hunter MD Primary Care Prov ider Reason for Visit * Reason Onset Date Comments Med Refill 05/15/2022 Encounter Details Date Type Department Care Team ([facility] st Contact Info) Description 05/15/2022 Telephone [facility] CHC MED & PEDS [address] [place] [address] Bc Hunter MD [address] [place] [address] Med Refill Social History Tobacco Use Types [...] a max daily dose. Call placed to [facility] Coumadin clinic. Per Della, pt is currently [...] 11:54 AM EST Tc from Amy with [facility] requesting some kinds of specific directions for warfarin (Coumadin) 2 MG tablet If any question please contact amy at [phone] documented in this encounter Plan of Treatment Upcoming Encounters Date Type Department Care Team (Late st Contact Info) Description 11/24/2024 2:30 PM EDT Office Visit [facility] MED & PEDS [address] [place] [address] Zafar Richard MD [address] [place] [address] 01/08/2025 11:15 AM EDT Office Visit [facility] MED & PEDS [address] [place] [address] Bc Hunter MD [address] [place] [address] documented as of this encounter Visit Diagnoses Not on filedocumented in this encounter Care Teams Judicial Clerk Relationship Specialty Start Date End Date Bc Hunter MD [address] [place] [address] PCP - General Internal Medicine 01/03/19 documented as of this encounter
--- OUTSIDE RECORDS SUMMARY | 2024-11-23 12:01 | XMS_ITS | Encounter Summary ---
Author Organization [employer] Address 75 [facility] 7 [place] [address] Care Team Providers Care Ripsawyer Name Role Phone Bc Hunter MD Primary Care Prov ider Reason for Visit * Reason Onset Date Comments CRITICAL LAB 11/23/2024 Encounter Details Date Type Department Care Team ([facility] st Contact Info) Description 11/23/2024 Telephone [facility] PEDIAT[facility] [address] [place] [address] Bc Hunter MD [address] [place], [place] [phone] CRITICAL LAB Social History Tobacco Use Types Packs/Day Years [...] Telephone Encounter - Michelle Chi RN - 11/23/2024 11:56 AM EDT RN sent message to PCP. No new orders at this time. * Telephone Encounter - Marcela Kaufman RN - 11/23/2024 11:48 AM EDT TC [facility] antico[facility] with critical lab. INR of 7.1 Holding dose today. Advised to eat a lot of broccoli. redraw tomorrow. Michelle FLETCHER aware. Will route to PCP and team to advise. documented in this encounter Plan of Treatment Upcoming Encounters Date Type Department Care Team (Late st Contact Info) Description 11/24/2024 2:30 PM EDT Office Visit [facility] MED & PEDS [address] [place] [address] Zafar Richard MD [address] [place] [address] 01/08/2025 11:15 AM EDT Office Visit [facility] MED & PEDS [address] [place] [address] Bc Hunter MD [address] [place] [address] documented as of this encounter Visit Diagnoses Not on filedocumented in this encounter Additional Health Concerns Assessment Noted Time PHQ-9 Depression Total Score: 0 09/30/19 24 11:02 AM EDT documented as of this encounter Care Teams Ripsawyer Relationship Specialty Start Date End Date Bc Hunter MD [address] [place] [address] PCP - General Internal Medicine 01/03/19 documented as of this encounter
--- OUTSIDE RECORDS SUMMARY | 2024-11-23 12:01 | XMS_ITS | Encounter Summary ---
Author Organization [employer] Address [address] [facility] 7 [place] [address] Care Team Providers Care Stuntman Name Role Phone Bc Hunter MD Primary Care Prov ider Reason for Visit * Reason Onset Date Comments Nurse Triage 11/22/2024 Encounter Details Date Type Department Care Team ([facility] st Contact Info) Description 11/22/2024 Telephone [facility] MEDICINE [address] [place] [address] Bc Hunter MD [address] [place], [place] [phone] Nurse Triage Social History Tobacco Use Types [...] Telephone Encounter - Cecille Pena RN - 11/22/2024 10:05 AM EDT Triage call to Krystin, staff at [facility] where Pt resides. Pt is in presence of Krystin during this call. Pt always has a cough due to COPD but, recently, for last week or so has become worse withclear to yellow phlegm produced more frequently. Neg for fever. Pt always has SOB and is not havingmore difficulty with breathing or increased SOB. Nurse advised Pt should be seen by provider. Offered apt in [facility] tomorrow morning 915am but, unable to go at that time. Pt is given ASK apt 11/24/[address]Dr. Richard in [facility] Pt is offered to come to WIC in [facility] but, declined today, Krystin will considerthis if Pt gets worse before 11/24 apt. [facility] apt will be canceled if seen in [place] . Pt/Krystin agreed with disposition. Advised to increase liquids to 6-8 glasses daily especially warm liquids. Monitor for fever or increased SOB. Protocol Used: Cough (Adult) Protocol-Based Disposition: See in Office or Video Visit within 3 Days Positive Triage Question: * Cough has been present for > 3 weeks * All higher-acuity triage questions were negative Care Advice Discussed: * Reassurance and Education - Cough * Prevent Dehydration * Reasons To Call Back - Difficulty breathing - Cough lasts more than 3 weeks - Fever lasts more than 3 days - You become worse * Telephone Encounter - Gia Mathews - 11/22/2024 9:44 AM EDT Symptom: Cough Outcome: Schedule an appointment to be seen within 24 hours Reason: Caller denied all higher acuity questions The caller accepted this outcome. Contact Krystin at [phone] documented in this encounter Plan of Treatment Upcoming Encounters Date Type Department Care Team ([facility] st Contact Info) Description 11/24/2024 2:30 PM EDT Office Visit [facility] MED & PEDS [address] [place] [address] Zafar Richard MD [address] [place] [address] 01/08/2025 11:15 AM EDT Office Visit [facility] MED & PEDS [address] [place] [address] Bc Hunter MD [address] [place] [address] documented as of this encounter Visit Diagnoses Not on filedocumented in this encounter Additional Health Concerns Assessment Noted Time PHQ-9 Depression Total Score: 0 09/30/19 24 11:02 AM EDT documented as of this encounter Care Teams Stuntman Relationship Specialty Start Date End Date Bc Hunter MD [address] [place] [address] PCP - General Internal Medicine 01/03/19 documented as of this encounter
--- OUTSIDE RECORDS SUMMARY | 2024-11-23 12:01 | XMS_ITS | Encounter Summary ---
Author Organization [employer] Address [address] [facility] 7 [place] [address] Care Team Providers Care Geographical Historian Name Role Phone Bc Hunter MD Primary Care Prov ider Reason for Visit * Reason Onset Date Comments chart prep 11/23/2024 Encounter Details Date Type Department Care Team ([facility] Contact Info) Description 11/23/2024 Telephone [facility] CHC MED & PEDS [address] [place] [address] Bc Hunter MD [address] [place] [address] chart prep Social History Tobacco Use Types Packs/Day Years [...] Telephone Encounter - Dipti Beaver MA - 11/23/2024 10:13 AM EDT Chart Prep Labs: done Images: done Referrals: appointment pending Vaccines due: Covid, Flu, PCV20, and Zoster Screenings: colonoscopy Overdue care gaps: SDOH and PHQ-9 documented in this encounter Plan of Treatment Upcoming Encounters Date Type Department Care Team (Late st Contact Info) Description 11/24/2024 2:30 PM EDT Office Visit [facility] MED & PEDS [address] [place] [address] Zafar Richard MD [address] [place] [address] 01/08/2025 11:15 AM EDT Office Visit [facility] MED & PEDS [address] [place] [address] Bc Hunter MD [address] [place] [address] documented as of this encounter Visit Diagnoses Not on filedocumented in this encounter Additional Health Concerns Assessment Noted Time PHQ-9 Depression Total Score: 0 09/30/19 24 11:02 AM EDT documented as of this encounter Care Teams Geographical Historian Relationship Specialty Start Date End Date Bc Hunter MD [address] [place] [address] PCP - General Internal Medicine 01/03/19 documented as of this encounter
--- OUTSIDE RECORDS SUMMARY | 2024-11-23 12:02 | XMS_ITS | Encounter Summary ---
Author Organization [employer] Address [address] [place] [address] Care Team Providers Care Derrick Engineer Name Role Phone Bc Hunetr MD Primary Care Prov ider Reason for Visit * Reason Comments Med Refill Encounter Details Date Type Department Care Team ([facility] Contact Info) Description 10/25/2022 Refill [facility] CHC MED & PEDS [address] [place] [address] Bc Hunter MD [address] [place] [address] Social History Tobacco Use Types Packs/Day Years [...] Upcoming Encounters Date Type Department Care Team ([facility] Contact Info) Description 11/24/2024 2:30 PM EDT Office Visit [facility] CHC MED & PEDS [address] [place] [address] Zafar Richard MD [address] [place] [address] 01/08/2025 11:15 AM EDT Office Visit [facility] MED & PEDS [address] [place] [address] Bc Hunter MD [address] [place] [address] documented as of this encounter Visit Diagnoses Not on filedocumented in this encounter Additional Health Concerns Assessment Noted Time PHQ-9 Depression Total Score: 0 07/11/19 23 11:26 AM EDT documented as of this encounter Care Teams Derrick Engineer Relationship Specialty Start Date End Date Bc Hunter MD [address] [place] [address] PCP - General Internal Medicine 01/03/19 documented as of this encounter
--- OUTSIDE RECORDS SUMMARY | 2024-11-23 12:02 | XMS_ITS | Encounter Summary ---
Author Organization [employer] Address [address] [place] [address] Care Team Providers Care Color Finisher Name Role Phone Bc Hunter MD Primary Care Prov ider Encounter Details Date Type Department Care Team (Late Contact Info) Description 02/24/2022 Telephone [facility] MEDICINE [address] [place] [address] Bc Hunter MD [address] [place], [place] [phone] Social History Tobacco Use Types Packs/Day Years [...] Description 11/24/2024 2:30 PM EDT Office Visit [facility] CHC MED & PEDS [address] [place] [address] Zafar Richard MD [address] [place] [address] 01/08/2025 11:15 AM EDT Office Visit [facility] CHC MED & PEDS [address] [place] [address] Bc Hunter MD [address] [place], [place] [phone] documented as of this encounter Visit Diagnoses Not on filedocumented in this encounter Care Teams Color Finisher Relationship Specialty Start Date End Date Bc Hunter MD [address] [place] [address] PCP - General Internal Medicine 01/03/19 documented as of this encounter
--- OUTSIDE RECORDS SUMMARY | 2024-11-23 12:02 | XMS_ITS | Encounter Summary ---
Author Organization [employer] Address [address] [facility] 7 [place] [address] Care Team Providers Care Extension Division Director Name Role Phone Bc Hunter MD Primary Care Prov ider Reason for Visit * Reason Onset Date Comments Medication Question 08/29/2024 Encounter Details Date Type Department Care Team ([facility] st Contact Info) Description 08/29/2024 Telephone [facility] MEDICINE [address] [place] [address] Bc Hunter MD [address] [place], [place] [phone] Medication Question Social History Tobacco Use Types Packs/Day [...] * Telephone Encounter - Rubén Vidales - 08/29/2024 1:29 PM EDT Tc from [place] staff with [facility] reports Doctors orders and script pharmacy has do not match .Please contact [facility] for medication reconciliation. documented in this encounter Plan of Treatment Upcoming Encounters Date Type Department Care Team (Late st Contact Info) Description 11/24/2024 2:30 PM EDT Office Visit [facility] MED & PEDS [address] [place] [address] Zafar Richard MD [address] [place] [address] 01/08/2025 11:15 AM EDT Office Visit [facility] MED & PEDS [address] [place] [address] Bc Hunter MD [address] [place] [address] documented as of this encounter Visit Diagnoses Not on filedocumented in this encounter Additional Health Concerns Assessment Noted Time PHQ-9 Depression Total Score: 0 09/30/19 24 11:02 AM EDT documented as of this encounter Care Teams Extension Division Director Relationship Specialty Start Date End Date Bc Hunter MD [address] [place] [address] PCP - General Internal Medicine 01/03/19 documented as of this encounter
--- OUTSIDE RECORDS SUMMARY | 2024-11-23 12:02 | XMS_ITS | Encounter Summary ---
Author Organization [employer] Address [address] [facility] 7 [place] [address] Care Team Providers Care Logging Equipment Mechanic Name Role Phone Bc Hunter MD Primary Care Prov ider Reason for Visit * Reason Comments Med Refill Encounter Details Date Type Department Care Team ([facility] st Contact Info) Description 05/18/[address] [facility] CHC MED & PEDS [address] [place] [address] Bc Hunter MD [address] [place] [address] Social History Tobacco Use Types Packs/Day Years [...] [facility] [address] [place] [address] Zafar Richard MD [address] [place] [address] 01/08/2025 11:15 AM EDT Office Visit [facility] MED & PEDS [address] [place] [address] Bc Hunter MD [address] [place] [address] documented as of this encounter Visit Diagnoses Not on filedocumented in this encounter Additional Health Concerns Assessment Noted Time PHQ-9 Depression Total Score: 0 07/11/19 23 11:26 AM EDT documented as of this encounter Care Teams Logging Equipment Mechanic Relationship Specialty Start Date End Date Bc Hunter MD [address] [place] [address] PCP - General Internal Medicine 01/03/19 documented as of this encounter
--- OUTSIDE RECORDS SUMMARY | 2024-11-23 12:02 | XMS_ITS | Encounter Summary ---
Author Organization [employer] Address [address] [place] [address] [place] [address] Care Team Providers Care Lamination Builder Name Role Phone Bc Hunter MD Primary Care Prov ider Reason for Visit * Reason Onset Date Comments Med Refill 09/21/2022 Encounter Details Date Type Department Care Team ([facility] st Contact Info) Description 09/21/2022 Telephone [facility] CHC MED & PEDS [address] [place] [address] Bc Hunter MD [address] [place] [address] Med Refill Social History Tobacco Use Types [...] 09/23/2022 8:28 AM EDT Pt managed by [facility] coumadin clinic. Last INR of 3.1 noted 09/17/22. Will forward request for Rx to covering provider to review. * Telephone Encounter - Ping Nettles - 09/21/2022 10:39 AM EDT Tc from pt requesting med refill on Warfarin 1 mg tablet [facility]/pharmacy #[id number] - [place], [place] - [address] [facility] Please sent to documented in this encounter Plan of Treatment Upcoming Encounters Date Type Department Care Team (Late st Contact Info) Description 11/24/2024 2:30 PM EDT Office Visit [facility] MED & PEDS [address] [place] [address] Zafar Richard MD [address] [place] [address] 01/08/2025 11:15 AM EDT Office Visit [facility] MED & PEDS [address] [place] [address] Bc Hunter MD [address] [place] [address] documented as of this encounter Visit Diagnoses Diagnosis History of Coumadin therapy- Primary S/P aortic valve replacement Heart valve replaced by other means documented in this encounter Additional Health Concerns Assessment Noted Time PHQ-9 Depression Total Score: 0 07/11/19 23 11:26 AM EDT documented as of this encounter Care Teams Lamination Builder Relationship Specialty Start Date End Date Bc Hunter MD [address] [place] [address] PCP - General Internal Medicine 01/03/19 documented as of this encounter
--- OUTSIDE RECORDS SUMMARY | 2024-11-23 12:02 | XMS_ITS | Encounter Summary ---
Author Organization [employer] Address [address] [facility] 7 [place] [address] Care Team Providers Care Embedded Nurse Name Role Phone Bc Hunter MD Primary Care Prov ider Reason for Visit * Reason Onset Date Comments Call Back Request 07/05/2024 Encounter Details Date Type Department Care Team ([facility] st Contact Info) Description 07/05/2024 Telephone [facility] MEDICINE [address] [place] [address] Bc Hunter MD [address] [place], [place] [phone] Call Back Request Social History Tobacco Use [...] - 07/05/2024 12:18 PM EDT Tc from [facility] with [facility] requesting a call back regarding the pt Lovenox. Contact Kimberly at [phone] documented in this encounter Plan of Treatment Upcoming Encounters Date Type Department Care Team (Late st Contact Info) Description 11/24/2024 2:30 PM EDT Office Visit [facility] MED & PEDS [address] [place] [address] Zafar Richard MD [address] [place] [address] 01/08/2025 11:15 AM EDT Office Visit [facility] MED & PEDS [address] [place] [address] Bc Hunter MD [address] [place] [address] documented as of this encounter Visit Diagnoses Not on filedocumented in this encounter Additional Health Concerns Assessment Noted Time PHQ-9 Depression Total Score: 0 09/30/19 24 11:02 AM EDT documented as of this encounter Care Teams Embedded Nurse Relationship Specialty Start Date End Date Bc Hunter MD [address] [place] [address] PCP - General Internal Medicine 10/15/19 documented as of this encounter
== END 2024-11-23 11:51 | disposition home or self-care (01) ==
LOC: HO.ACS 10:35
PROVIDERS: PCP Internal Medicine; Visit Provider Internal Medicine Medical Oncology
DX: Z79.01 Long term (current) use of anticoagulants (principal)

== ENCOUNTER 2024-11-24 10:53 | Outpatient (AMB) | payer MEDICARE, MEDICAID, SELFPAY ==
[2024-11-24 11:01] LABS: Prothrombin Time Whole Bld POC 59.6 sec (11.1-13.5); ~PT, ~INR - Anti Coag Clinic 5.0 (0.9-1.1)
--- NOTE | 2024-11-24 11:09 | MHC.OFFVISCO ---
Intake Intake Visit Reasons: Anticoagulation Allergies No Known Allergies Allergy (Mild, Verified 11/24/24 10:54) NOT APPLICABLE Medication List - Last Reconciled 11/24/24 by Nivia Beaver RN albuterol sulfate 90 mcg/actuation (Ventolin HFA) 1 puff inhalation RQ4H PRN amantadine HCl 100 mg PO BID atorvastatin 40 mg PO BEDTIME carbamide peroxide (Debrox) 5 DROPS EACH EAR EVERY 2 WEEKS cholecalciferol (vitamin D3) (Vitamin D3) 25 mcg PO QAM dicyclomine 20 mg PO BID divalproex ER 1,000 mg PO BEDTIME ferrous sulfate 324 mg PO DAILY [FLUCINOLONE TOPICAL DAILY ] fiegcioncbo-vhnsnxity-afxdbzbj 200-62.5-25 mcg (Trelegy Ellipta) 1 inh inhalation DAILY levothyroxine 25 mcg PO DAILY@0600 loratadine 10 mg PO DAILY magnesium oxide 400 mg PO BIDPC multivitamin with folic acid 400 mcg (Daily-Stanley (with folic acid)) 1 tab PO DAILY pantoprazole 40 mg PO BID revefenacin (Yupelri) 175 mcg (3 mL) inhalation DAILY 30 days risperidone (Risperdal) 4 mg PO BID tamsulosin 0.4 mg PO BEDTIME valproic acid 1000mg orally daily; warfarin See Protocol 2 mg orally 4MG DAILY OR DIRECTED; 4MG DAILY OR DIRECTED Nursing Note Pt returns to [facility] after INR 7.1 yesterday. Warfarin was held. INR today 5.0 out of therapeutic range and 2-3 Medications and supplements reviewed No changes in health, diet, medications, or supplements, Denies any signs and symptoms of bleeding or bruising or clotting. Bleeding, bruising, clotting discussed Nutritional guidance given to have a serving of greens today but pt states he may not have any greens. Dose: hold warfarin today and tomorrow. That's 3 days of hold. Then pt will restart at 4mg X 2 days (usual dose) and retest on 11/28/24. F/U INR: 11/28/24 Patient and mental health worker verbalizes understanding of instructions with read back given Anti-Coag Initial Assessment Social Hx Patient Tobacco Use Status: Refuse Tobacco use screen alcohol intake: never Coding Level of Care Code Est Patient Level 1 Diagnoses Current use of anticoagulant therapy Z79.01 Assessment & Plan Assessment & Plan (1) Current use of anticoagulant therapy: Code(s): Z79.01 - retirement (current) use of anticoagulants Category: Medical
--- OUTSIDE RECORDS SUMMARY | 2024-11-24 11:56 | XMS_ITS | Encounter Summary ---
Author Organization [employer] Address [address] [facility] 7t [place] [address] Care Team Providers Care Wire Drawing Setter Name Role Phone Bc Hunter MD Primary Care Prov ider Encounter Details Date Type Department Care Team ([facility] st Contact Info) Description 11/24/2024 Orders Only GENERIC EXTERNAL DATA DEPARTMENT Provider, [...] 11/24/2024 2:30 PM EDT Office Visit [facility] MED & PEDS [address] [place] [address] Zafar Richard MD [address] [place] [address] 01/08/2025 11:15 AM EDT Office Visit [facility] MED & PEDS [address] [place], [place] [phone] Bc Hunter MD [address] [place] [address] documented as of this encounter Procedures Procedure Name Priority Date/Time Associated Diagnosis Comments PROTHROMBIN TIME WHOLE BLD POC Routine 11/24/2024 10:58 AM EDT ~PT, ~INR - ANTI COAG CLINIC Routine 11/24/2024 10:58 AM EDT documented in this encounter Results * (ABNORMAL) PROTHROMBIN TIME WHOLE BLD POC (11/24/2024 10:58 AM EDT) Protime 59.6(H) 11.1 - 13.5 sec [facility] 11/24/2024 10:5 8 AM EDT 11/24/2024 11:01 AM EDT us Generic External Data Provider LAB BLOOD ORDERAB LES Final Result [facility] [address] [place] [address] [phone] * (ABNORMAL) ~PT, ~INR - ANTI COAG CLINIC (11/24/2024 10:58 AM EDT) Prothrombin Time INR 5.0(HH) 0.9 - 1.1 [facility] Comment:METER #: [id number] TERNATIONAL NORMALIZED RATIO (INR) REFERENCE RANGES Reference RangeFor patients not on anticoagulant therapy: 0.9 - 1.1INR ranges for oral anticoagulanttherapy:For prevention and treatment of venous thrombosis and pulmonary embolism: 2.0 - 3.0For acute myocardial infarction with aspirin therapy: 2.0 - 3.0For acute myocardial infarction without aspirin therapy: 3.0 - 4.0For patients with mechanical prosthetic heart valves: 2.5 - 3.5 11/24/2024 10:5 8 AM EDT 11/24/2024 11:01 AM EDT us Generic External Data Provider LAB BLOOD ORDERAB LES Final Result [facility] [address] [place] [address] [phone] documented in this encounter Visit Diagnoses Not on filedocumented in this encounter Additional Health Concerns Assessment Noted Time PHQ-9 Depression Total Score: 0 09/30/19 24 11:02 AM EDT documented as of this encounter Care Teams Wire Drawing Setter Relationship Specialty Start Date End Date Bc Hunter MD [address] [place] [address] PCP - General Internal Medicine 01/03/19 documented as of this encounter
--- OUTSIDE RECORDS SUMMARY | 2024-11-24 11:56 | XMS_ITS | Encounter Summary ---
Author Organization [employer] Address [address] [facility] 7 [place] [address] Care Team Providers Care Waistline Joiner Overlock Name Role Phone Bc Hunter MD Primary Care Prov ider Reason for Visit * Reason Onset Date Comments Nurse Triage 11/22/2024 Encounter Details Date Type Department Care Team ([facility] st Contact Info) Description 11/22/2024 Telephone [facility] MEDICINE [address] [place] [address] Bc Hunter MD [address] [place], [place] [phone] Nurse Triage Social History Tobacco Use Types [...] EDT Triage call to Krystin, staff at [facility] where Pt resides. Pt is in [...] be seen by provider. Offered apt in [facility] tomorrow morning 915am but, unable to go at that time. Pt is given ASK apt 11/24/24 withDr. Richard in [facility]. Pt is offered to come to WIC in [facility] but, declined today, Krystin will considerthis if Pt gets worse before 11/24 apt. [facility] apt will be canceled if seen [...] caller accepted this outcome. Contact Krystin at [phone] documented in this encounter Plan of Treatment Upcoming Encounters Date Type Department Care Team ([facility] st Contact Info) Description 11/24/2024 2:30 PM EDT Office Visit [facility] MED & PEDS [address] [place] [address] Zafar Richard MD [address] [place] [address] 01/08/2025 11:15 AM EDT Office Visit [facility] MED & PEDS [address] [place] [address] Bc Hunter MD [address] [place] [address] documented as of this encounter Visit Diagnoses Not on filedocumented in this encounter Additional Health Concerns Assessment Noted Time PHQ-9 Depression Total Score: 0 09/30/19 24 11:02 AM EDT documented as of this encounter Care Teams Waistline Joiner Overlock Relationship Specialty Start Date End Date Bc Hunter MD [address] [place] [address] PCP - General Internal Medicine 01/03/19 documented as of this encounter
--- OUTSIDE RECORDS SUMMARY | 2024-11-24 11:56 | XMS_ITS | Clinical Summary ---
Author Organization [address] [facility] Address [address] [place] [address] Phone Care Team Providers Care Surgical Appliances Salesperson Name Role Phone Bc Hunter Primary Care Provide r Medical History Medical History Date Comments Heart valve replaced by other means 06/29/2011 DX:Heart valve replaced by other means Asthma 06/29/2011 DX:Asthma Tobacco abuse 06/29/2011 DX:Tobacco abuse Schizophrenia ([facility] V24, CMS/HCC V28) 06/29/2011 DX:Schizophrenia ([facility]) Unspecified hypothyroidism 06/29/2011 DX:Un specified hypothyroidism [...] 04/14/2024 Social Influencers of Health Screening 04/14/2024 COVID-19 Vaccine ( - 2024- season) 2024 01/09/2021, 05/16/2020, 04/25/2020 Influenza Vaccine (#1) 2024 , 12/11/2020, 03/17/2019, [...] Insurance MEDICARE MEDICAID - [place] Care Teams Surgical Appliances Salesperson Relationship Specialty Start Date End Date Bc Hunter [address] [place] [phone] PCP - General Internal Medicine 04/13/24
--- OUTSIDE RECORDS SUMMARY | 2024-11-24 11:56 | XMS_ITS | Encounter Summary ---
Author Organization [facility] Address [address] [place] [address] Phone Care Team Providers Care Process Development Technician Name Role Phone Bc Yates Primary Care Provider [phone] Reason for Visit * Reason Comments Med Refill Encounter Details Date Type Department Care Team (Late st Contact Info) Description 01/13/2022 Refill [facility] [address] [place] [address] Trever Lopez MD [address] [place] [address] Social History Tobacco Use Types [...] Visit [facility] [address] [place] [address] Trever Lopez MD [address] [place] [address] documented as of this encounter Visit Diagnoses Not on filedocumented in this encounter Care Teams Process Development Technician Relationship Specialty Start Date End Date Bc Yates PCP - General Internal Medicine 10/05/22 documented as of this encounter
--- OUTSIDE RECORDS SUMMARY | 2024-11-24 11:56 | XMS_ITS | Encounter Summary ---
Author Organization [employer] Address [address] [facility] 7 [place] [address] Care Team Providers Care Decal Applier Name Role Phone Bc Hunter MD Primary Care Prov ider Reason for Visit * Reason Onset Date Comments Med Refill 05/12/2022 Encounter Details Date Type Department Care Team ([facility] st Contact Info) Description 05/12/2022 Telephone [facility] MEDICINE [address] [place] [address] Bc Hunter MD [address] [place] [address] Med Refill Social History Tobacco Use Types [...] Description 11/24/2024 2:30 PM EDT Office Visit [facility] MED & PEDS [address] [place] [address] Zafar Richard MD [address] [place] [address] 01/08/2025 11:15 AM EDT Office Visit [facility] MED & PEDS [address] [place] [address] Bc Hunter MD [address] [place] [address] documented as of this encounter Visit Diagnoses Not on filedocumented in this encounter Care Teams Decal Applier Relationship Specialty Start Date End Date Bc Hunter MD [address] [place] [address] PCP - General Internal Medicine 01/03/19 documented as of this encounter
--- OUTSIDE RECORDS SUMMARY | 2024-11-24 11:56 | XMS_ITS | Encounter Summary ---
Author Organization [employer] Address [address] [facility] 7 [place] [address] Care Team Providers Care Truck Guard Name Role Phone Bc Hunter MD Primary Care Prov ider Encounter Details Date Type Department Care Team (Late st Contact Info) Description 09/20/2023 Orders Only [facility] CHC MED & PEDS [address] [place], [place] [phone] Bc Hunter MD [address] [place] [address] Social History Tobacco Use Types Packs/Day Years [...] Description 11/24/2024 2:30 PM EDT Office Visit [facility] MED & PEDS [address] [place] [address] Zafar Richard MD [address] [place] [address] 01/08/2025 11:15 AM EDT Office Visit [facility] MED & PEDS [address] [place] [address] Bc Hunter MD [address] [place] [address] documented as of this encounter Visit Diagnoses Not on filedocumented in this encounter Additional Health Concerns Assessment Noted Time PHQ-9 Depression Total Score: 0 07/11/19 23 11:26 AM EDT documented as of this encounter Care Teams Truck Guard Relationship Specialty Start Date End Date Bc Hunter MD [address] [place] [address] PCP - General Internal Medicine 01/03/19 documented as of this encounter
--- OUTSIDE RECORDS SUMMARY | 2024-11-24 11:56 | XMS_ITS | Encounter Summary ---
Author Organization [facility] Address [address] [place] [address] Phone Care Team Providers Care Casing Soaker Name Role Phone Bc Yates Primary Care Provider [phone] Encounter Details Date Type Department Care Team (Late st Contact Info) Description 05/26/2021 Documentation Only [facility] [address] [place] [address] Trever Lopez MD [address] [place] [address] [place] [address] Social History Tobacco Use Types [...] Visit [facility] [address] [place] [address] Trever Lopez MD [address] [place] [address] [place] [address] documented as of this encounter Visit Diagnoses Not on filedocumented in this encounter Care Teams Casing Soaker Relationship Specialty Start Date End Date Bc Yates PCP - General Internal Medicine 10/05/22 documented as of this encounter
--- OUTSIDE RECORDS SUMMARY | 2024-11-24 11:56 | XMS_ITS | Clinical Summary ---
Author Organization [facility] [place], Address [address] [place] [address] [place] [address] Phone Care Team Providers Care Mason Helper Name Role Phone YatesBc Primary Care Provider [phone] Allergies No known active allergies Medications D3-50 1.25 MG (56661 UT) capsule TAKE 1 CAPSULE BY MOUTH [...] Visit [facility] [address] [address] Trever Lopez MD [address] [place] [phone] Health Maintenance Due Date Last Done Comments [...] topic Insurance Medicare Medicaid [place] Care Teams Mason Helper Relationship Specialty Start Date End Date Bc Yates PCP - General Internal Medicine 10/05/22
--- OUTSIDE RECORDS SUMMARY | 2024-11-24 11:57 | XMS_ITS | Clinical Summary ---
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 Plan to bridge pt from Eliquis to Coumadin. May DC Eliquis once Coumadin therapeutic Coumadin dosinmg on Wednesday and Wednesday 4mg all other days of the week Plan: [facility] Coagulation clinic to reach out to usp [...] Other schizophrenia 09/22/2011 Overview (07/20/2023): Living in [place] Assessment & Plan (10/02/2024 1:14 PM EDT): [...] Encounters Date Type Department Care Team Description 11/24/2024 Orders Only GENERIC EXTERNAL DATA DEPARTMENT Provider, Generic External Data 11/23/[address] [facility] PEDIATR[facility] [address] [place] [address] Bc Hunter MD CRITICAL LAB 11/23/2024 Orders Only GENERIC EXTERNAL DATA DEPARTMENT Provider, Generic External Data 11/23/2024 Telephone [facility] MED & PEDS [address] [place] [address] Bc Hunter MD chart prep 11/22/[address] [facility] MEDICINE [address] [place] [address] Bc Hunter MD Nurse Triage 11/18/[address] [facility] CHC MED & PEDS [address] [place] [address] Bc Hunter MD Mixed hyperlipidemia 11/15/2024 Telephone [facility] MED & PEDS [address] [place] [address] Bc Hunter MD Call Back Request 11/06/2024 Orders Only GENERIC EXTERNAL DATA DEPARTMENT Provider, Generic External Data 10/30/2024 Telephone [facility] MED & PEDS [address] [place] [address] Bc Hunter MD Lab Orders 10/29/2024 Refill [facility] MED & PEDS [address] [place] [address] Bc Hunter MD 10/23/2024 Orders Only GENERIC EXTERNAL DATA DEPARTMENT Provider, Generic External Data 10/17/2024 Refill [facility] MED & PEDS [address] [place] [address] Oralia Mazariegos FNP S/P aortic valve replacement 10/16/2024 Orders Only GENERIC EXTERNAL DATA DEPARTMENT Provider, Generic External Data 10/09/2024 Orders Only GENERIC EXTERNAL DATA DEPARTMENT Provider, Generic External Data 10/03/2024 Orders Only [facility] MED & PEDS [address] [place] [address] Bc Hunter MD Mixed hyperlipidemia 10/02/2024 11:15 AM EDT Office Visit [facility] MED & PEDS [address] [place] [address] Bc Hunter MD Psychoactive substance abuse ([facility]/HCC) (Primary Dx); Dietary counseling; Exercise counseling; Other schizophrenia ([facility]); Stage 3a chronic kidney disease ([facility]); Hyperlipemia, mixed; Acquired hypothyroidism; Nodule of left lung 10/02/2024 Telephone [facility] MED & PEDS [address] [place] [address] Bc Hunter MD 10/02/2024 Travel 10/02/2024 Orders Only GENERIC EXTERNAL DATA DEPARTMENT Provider, Generic External Data 09/26/2024 Orders Only [facility] External Provider, [facility] 09/25/[address] [facility] [address] [place] [address] Bc Hunter MD Pre-visit Planning (SDOH screening unable to complete. ) 09/25/2024 Orders Only GENERIC EXTERNAL DATA DEPARTMENT Provider, Generic External Data 09/16/[address] [facility] [address] [place] [address] Oralia Mazariegos FNP Mixed hyperlipidemia 09/14/2024 Telephone [facility] MED & PEDS [address] [place] [address] Bc Hunter MD 09/11/2024 Orders Only GENERIC EXTERNAL DATA DEPARTMENT Provider, Generic External Data 08/29/[address] [facility] [address] [place] [address] Bc Hunter MD Medication Question 08/29/[address] [facility] [address] [place] [address] Bc Hunter MD 08/28/2024 Orders Only [facility] [address] [place] [address] Zafar Richard MD [address] [place] [address] 01/08/2025 11:15 AM EDT Office Visit [facility] MED & PEDS [address] [place] [address] Bc Hunter MD [address] [place] [address] Health Maintenance Due Date Last Done Comments [...] COAG [facility]INIC Routine 11/24/2024 10:58 AM EDT PROTHROMBIN TIME-INR Routine 11/23/2024 11:10 AM EDT [...] WHOLE BLD POC (11/24/2024 10:58 AM EDT) Only the most recent of10 resultswithin the time period is included. Protime 59.6(H) 11.1 - 13.5 sec [facility] 11/24/2024 10:5 8 AM EDT 11/24/2024 11:01 AM EDT us Generic External Data Provider LAB BLOOD ORDERAB LES Final Result [facility] [address] [place] [phone] * (ABNORMAL) ~PT, ~INR - ANTI COAG CLINIC (11/24/2024 10:58 AM EDT) Only the most recent of10 resultswithin the time period is included. Prothrombin Time INR 5.0(HH) 0.9 - 1.1 [facility] Comment:METER #: [id number] TERNATIONAL NORMALIZED RATIO (INR) REFERENCE RANGES Reference [...] 8 AM EDT 11/24/2024 11:01 AM EDT Generic External Data Provider LAB BLOOD ORDERAB LES Final Result Performing Organization Address [facility]/ZIP Co de Phone Number [facility] [address] [place] [phone] * (ABNORMAL) Prothrombin Time-INR (11/23/2024 11:10 AM EDT) Prothrombin Time 81.2(H) 10.9 - 12.4 SEC [facility] INTERNATIONAL NORM RATIO 7.1(HH) 0.9 - 1.1 [facility] Comment:RESULTS OF INR STEPHENS D [...] 0 AM EDT 11/23/2024 11:10 AM EDT [facility] External Data Provider LAB BLOOD ORDERAB LES Final Result Performing Organization Address [facility] Co de Phone Number [facility] [address] [place] [phone] * T-SPOT??.TB (10/30/2024 1:08 PM EDT) T Spot TB Negative Negative [facility] Comment:A negative test resu lt [...] as aquantitative test. TS PANEL A 0 [facility] TS PANEL B 1 [facility] Negative Control Passed [facility] Positive Control Passed [facility] Comment:For additional infor mation, please refer tohttp://education.[employer]/faq/WHJ515(This link is being provided for informational/educational purposes only.)THIS TEST WAS PERFORMED AT:[id number] [place] [address]WAUVTYGPITER CARUSO MD,PHD 10/30/2024 1:08 PM EDT 10/30/2024 2:22 PM EDT Bc Rascon MD LAB BLOOD ORDERABL ES Final Result [facility] [address] [place] [phone] * CT Chest w/o Contrast (09/27/2024 1:47 PM EDT) Anatomical Region Laterality Modality Body, Chest Computed Tomogra phy 09/27/2024 1:47 PM EDT Narrative 09/27/2024 1:47 PM EDT [place] [address] [address] Scan Report Signed with Deanna Patient: Chris Zaragoza MR#: [id number] : 1950 Acct:[id number] Age/Sex: 74 / M ADM Date: 09/26/24 Loc: HO.CT Attending Dr: Lenny Irving MD Ordering Physician: Lenny Irving MD Date of Service: 09/26/24 Procedure(s): CT chest wo IV con Accession Number(s): [id number] cc: Bc Hunter MD; Lenny Irving MD Report Number: [id number]: Total DLP = 198.00 mGy-cm ADDENDUM This [...] by Jessica Bliss MD in OV> 09/27/24 1358 Addendum Cosigned By: DD/ /14/1346 TD/TT: 09/27/2412/14/1357 CLINICAL HISTORY: R91.1 - Solitary pulmonary nodule Exam: CT chest without IV contrast Comparison: CT/OH/SR - CT ANGIO CHEST PE PROTOCOL - 06/14/24 13:[address]/OH/SR - CT CHEST WO IV CON - [...] 09/27/24 1347 DD/ 1347 TD/TT: 09/27/24 1347 Feather Mixer: Procedure Note Donotuseinterpreter, Image - 09/27/[address] [place] [address] [address] Scan Report Signed with Addenda Patient: Amos Zaragoza#: [id number] : 1950cct:[id number] Age/Sex: 74 / MADM Date: 09/26/24 Loc: HO.CT Attending Dr: Lenny Irving MD Ordering Physician: Lenny Irving MD Date of Service: 09/26/24 Procedure(s): CT chest wo IV con Accession Number(s): [id number] cc: Bc Hunter MD; Lenny Irving MD Report Number: [id number]: Total DLP = 198.00 mGy-cm ADDENDUM This [...] 09/27/241357 Addendum Cosigned By: DD/ /14/1346 TD/TT: 09/27/2412/14/1357 CLINICAL HISTORY: R91.1 - Solitary pulmonary nodule Exam: CT chest without IV contrast Comparison: CT/OH/SR - CT ANGIO CHEST PE PROTOCOL - 06/14/24 13:[address]/OH/SR - CT CHEST WO IV CON - [...] 09/27/24 1347 DD/ 1347 TD/TT: 09/27/24 1347 Feather Mixer: [facility] External Provider IMG CT PROCEDURES Edited Result - Final * Lipid Panel, Standard (05/06/2023 11:48 AM EST) Triglycerides 61 <150 mg/dL [facility] Comment:Desirable Triglyceri de: less than [...] 190 mg/dL HDL Cholesterol 60 >40 mg/dL [facility] Comment:Desirable HDL: great er than 40 mg/dL Note: This HDL assay may give artificially low results in patients with liver disease. Blood Venous blood specimen / Unknown 05/06/2023 11:48 AM EST 05/06/2023 2:09 PM EST Bc Rascon MD LAB BLOOD ORDERABL ES Final Result [facility] [address] [place] [phone] * Hepatitis C Antibody with Reflex to HCV, RNA, Quantitative, Real-Time PCR (07/10/2022 11:31 AM EDT) Hepatitis C Antibody NON-REACT DEZ NON-REACT DEZ [facility] [place] [facility] Index 0.09 <1.00 [facility] Comment: HCV antibody was non-reactive. There is no laboratory evidence of HCV infection. In most cases, no further action is required. However, if recent HCV exposure is suspected, a test for HCV RNA (test code 35833) is suggested. For additional information please refer to http://education.[employer]/faq/AKH21z3 (This link is being provided for informational/ educational purposes only.) Blood Venous blood specimen / Unknown 07/10/2022 11:31 AM EDT 07/10/2022 11:32 AM EDT Narrative [facility] - 07/11/2022 5:06 AM EDT FASTING:NO FASTING: NO Bc Rascon MD LAB BLOOD ORDERABL ES Final Result [facility] [address], [place] [address] [facility] [place] [employer] [address] [place] [address] from Last 3 Months or Most Recently Relevant to Health Maintenance Insurance [place] [address] [place] [phone] [facility] Care Teams Avionics Test Technician Relationship Specialty Start Date End Date YatesBc Ledezma MD [address] [place] [address] PCP - General Internal Medicine 01/03/19
--- OUTSIDE RECORDS SUMMARY | 2024-11-24 11:57 | XMS_ITS | Encounter Summary ---
Author Organization [employer] Address [address] [facility] 7 [place] [address] Care Team Providers Care Tool Rental Technician Name Role Phone Bc Hunter MD Primary Care Prov ider Reason for Visit * Reason Comments Med Change Request Encounter Details Date Type Department Care Team ([facility] Contact Info) Description 07/19/2023 Refill [facility] CHC MED & PEDS [address] [place] [address] Oralia Mazariegos FNP [address] [place] [address] Social History Tobacco Use Types Packs/Day Years [...] 11/24/2024 2:30 PM EDT Office Visit [facility] MED & PEDS [address] [place] [address] Zafar Richard MD [address] [place] [address] 01/08/2025 11:15 AM EDT Office Visit [facility] MED & PEDS [address] [place] [address] Bc Hunter MD [address] [place] [address] documented as of this encounter Visit Diagnoses Not on filedocumented in this encounter Additional Health Concerns Assessment Noted Time PHQ-9 Depression Total Score: 0 07/11/19 23 11:26 AM EDT documented as of this encounter Care Teams Tool Rental Technician Relationship Specialty Start Date End Date Bc Hunter MD [address] [place] [address] PCP - General Internal Medicine 01/03/19 documented as of this encounter
--- OUTSIDE RECORDS SUMMARY | 2024-11-24 11:57 | XMS_ITS | Encounter Summary ---
Author Organization [employer] Address [address] [place] [address] Care Team Providers Care Municipal Services Manager Name Role Phone Bc Hunter MD Primary Care Prov ider Reason for Visit * Reason Comments Med Refill Encounter Details Date Type Department Care Team ([facility] Contact Info) Description 10/25/2022 Refill [facility] CHC MED & PEDS [address] [place] [address] Bc Hunter MD [address] [place] [address] Social History Tobacco Use Types Packs/Day Years [...] Upcoming Encounters Date Type Department Care Team ([facility] Contact Info) Description 11/24/2024 2:30 PM EDT Office Visit [facility] CHC MED & PEDS [address] [place] [address] Zafar Richard MD [address] [place] [address] 01/08/2025 11:15 AM EDT Office Visit [facility]C MED & PEDS [address] [place] [address] Bc Hunter MD [address] [place] [address] documented as of this encounter Visit Diagnoses Not on filedocumented in this encounter Additional Health Concerns Assessment Noted Time PHQ-9 Depression Total Score: 0 07/11/19 23 11:26 AM EDT documented as of this encounter Care Teams Municipal Services Manager Relationship Specialty Start Date End Date Bc Hunter MD [address] [place] [address] PCP - General Internal Medicine 01/03/19 documented as of this encounter
--- OUTSIDE RECORDS SUMMARY | 2024-11-24 11:57 | XMS_ITS | Encounter Summary ---
Author Organization [employer] Address [address] [place] [address] Care Team Providers Care Dentist/Owner Name Role Phone Bc Hunter MD Primary Care Prov ider Reason for Visit * Reason Onset Date Comments Med Refill 09/21/2022 Encounter Details Date Type Department Care Team ([facility] st Contact Info) Description 09/21/2022 Telephone [facility] CHC MED & PEDS [address] [place] [address] Bc Hunter MD [address] [place] [address] Med Refill Social History Tobacco Use Types [...] 09/23/2022 8:28 AM EDT Pt managed by [facility] coumadin clinic. Last INR of 3.1 noted 09/17/22. Will forward request for Rx to covering provider to review. * Telephone Encounter - Ping Nettles - 09/21/2022 10:39 AM EDT Tc from pt requesting med refill on Warfarin 1 mg tablet [facility]/pharmacy #[id number] - [place], [place] - [address] [facility] Please sent to documented in this encounter Plan of Treatment Upcoming Encounters Date Type Department Care Team (Late st Contact Info) Description 11/24/2024 2:30 PM EDT Office Visit [facility] MED & PEDS [address] [place] [address] Zafar Richard MD [address] [place] [address] 01/08/2025 11:15 AM EDT Office Visit [facility] MED & PEDS [address] [place] [address] Bc Hunter MD [address] [place] [address] documented as of this encounter Visit Diagnoses Diagnosis History of Coumadin therapy- Primary S/P aortic valve replacement Heart valve replaced by other means documented in this encounter Additional Health Concerns Assessment Noted Time PHQ-9 Depression Total Score: 0 07/11/19 23 11:26 AM EDT documented as of this encounter Care Teams Dentist/Owner Relationship Specialty Start Date End Date Bc Hunter MD [address] [place] [address] PCP - General Internal Medicine 01/03/19 documented as of this encounter
--- OUTSIDE RECORDS SUMMARY | 2024-11-24 11:57 | XMS_ITS | Encounter Summary ---
Author Organization [employer] Address [address] [facility] 7 [place] [address] Care Team Providers Care Data Center Solutions Architect Name Role Phone Bc Hunter MD Primary Care Prov ider Reason for Visit * Reason Onset Date Comments Med Refill 05/15/2022 Encounter Details Date Type Department Care Team ([facility] st Contact Info) Description 05/15/2022 Telephone [facility] CHC MED & PEDS [address] [place] [address] Bc Hunter MD [address] [place] [address] Med Refill Social History Tobacco Use Types [...] 11:54 AM EST Tc from Amy with [facility] requesting some kinds of specific directions for warfarin (Coumadin) 2 MG tablet If any question please contact amy at [phone] documented in this encounter Plan of Treatment Upcoming Encounters Date Type Department Care Team (Late st Contact Info) Description 11/24/2024 2:30 PM EDT Office Visit [facility] MED & PEDS [address] [place] [address] Zafar Richard MD [address] [place] [address] 01/08/2025 11:15 AM EDT Office Visit [facility] MED & PEDS [address] [place] [address] Bc Hunter MD [address] [place] [address] documented as of this encounter Visit Diagnoses Not on filedocumented in this encounter Care Teams Data Center Solutions Architect Relationship Specialty Start Date End Date Bc Hunter MD [address] [place] [address] PCP - General Internal Medicine 01/03/19 documented as of this encounter
--- OUTSIDE RECORDS SUMMARY | 2024-11-24 11:57 | XMS_ITS | Encounter Summary ---
Author Organization [employer] Address [address] [facility] 7 [place] [address] Care Team Providers Care Hand Crocheter Name Role Phone Bc Hunter MD Primary Care Prov ider Reason for Visit * Reason Onset Date Comments Referral 12/06/2023 Encounter Details Date Type Department Care Team ([facility] st Contact Info) Description 12/06/2023 Telephone [facility] MEDIC[facility] [address] [place] [address] Bc Hunter MD [address] [place], [place] [phone] Referral Social History Tobacco Use Types Packs/Day [...] 12/06/2023 9:45 AM EDT Tc from patients residential calling to report the provider for podiatry has and would need to be referred to another location would like to be seen by Sarkis in the [place] location ifpossible documented in this encounter Plan of Treatment Upcoming Encounters Date Type Department Care Team (Late st Contact Info) Description 11/24/2024 2:30 PM EDT Office Visit [facility] MED & PEDS [address] [place] [address] Zafar Richard MD [address] [place] [address] 01/08/2025 11:15 AM EDT Office Visit [facility] MED & PEDS [address] [place] [address] Bc Hunter MD [address] [place] [address] documented as of this encounter Visit Diagnoses Not on filedocumented in this encounter Additional Health Concerns Assessment Noted Time PHQ-9 Depression Total Score: 0 09/30/19 24 11:02 AM EDT documented as of this encounter Care Teams Hand Crocheter Relationship Specialty Start Date End Date Bc Hunter MD [address] [place] [address] PCP - General Internal Medicine 01/03/19 documented as of this encounter
--- OUTSIDE RECORDS SUMMARY | 2024-11-24 11:57 | XMS_ITS | Encounter Summary ---
Author Organization [employer] Address 75 [facility] 7 [place] [address] Care Team Providers Care Mortgage Coordinator Name Role Phone Bc Hunter MD Primary Care Prov ider Reason for Visit * Reason Onset Date Comments Call Back Request 07/05/2024 Encounter Details Date Type Department Care Team ([facility] st Contact Info) Description 07/05/2024 Telephone [facility] MEDICINE [address] [place] [address] Bc Hunter MD [address] [place], [place] [phone] Call Back Request Social History Tobacco Use [...] - 07/05/2024 12:18 PM EDT Tc from [facility] with [facility] requesting a call back regarding the pt Lovenox. Contact Kimberly at [phone] documented in this encounter Plan of Treatment Upcoming Encounters Date Type Department Care Team (Late st Contact Info) Description 11/24/2024 2:30 PM EDT Office Visit [facility] MED & PEDS [address] [place] [address] Zafar Richard MD [address] [place] [address] 01/08/2025 11:15 AM EDT Office Visit [facility] [address] [place] [address] Bc Hunter MD [address] [place] [address] documented as of this encounter Visit Diagnoses Not on filedocumented in this encounter Additional Health Concerns Assessment Noted Time PHQ-9 Depression Total Score: 0 09/30/19 24 11:02 AM EDT documented as of this encounter Care Teams Mortgage Coordinator Relationship Specialty Start Date End Date Bc Hunter MD [address] [place] [address] PCP - General Internal Medicine 10/15/19 documented as of this encounter
--- OUTSIDE RECORDS SUMMARY | 2024-11-24 11:57 | XMS_ITS | Encounter Summary ---
Author Organization [employer] Address 75 [facility] 7 [place] [address] Care Team Providers Care Director Of Preclinical Research Name Role Phone Bc Hunter MD Primary Care Prov ider Reason for Visit * Reason Onset Date Comments Nurse Triage 2024 Encounter Details Date Type Department Care Team ([facility] st Contact Info) Description 2024 Telephone [facility] MEDICINE [address] [place] [address] Bc Hunter MD [address] [place], [place] [phone] Nurse Triage Social History Tobacco Use Types [...] EDT called pt to triage, spoke to contact worker, ANTONIO. pt was seen on 06/14 by [facility] pulmonology on 06/14 and due to some distress was sent to the ER for evaluation. pt diagnosed with Pneumonia and put onantibiotics x5 days. worker states pt eating and drinking, not having any fevers or severe/sustained sob, or other associated symptoms. given appt Wednesday with [facility] at 1:00 for exam and [...] 2024 3:49 PM EDT Tc from Patient [employer] to report ED visit on : Date: 06/14 Hospital: [facility] Seen for: pneumonia Symptomatic Yes *if yes message should go to Triage Patient advised will forward to team nurse for follow up [phone] pt documented in this encounter Plan of Treatment Upcoming Encounters Date Type Department Care Team (Late st Contact Info) Description 11/24/2024 2:30 PM EDT Office Visit [facility] [address] [place] [address] Zafar Richard MD [address] [place] [address] 01/08/2025 11:15 AM EDT Office Visit [facility] 505 [place] [address] Bc Hunter MD [address] [place] [address] documented as of this encounter Visit Diagnoses Not on filedocumented in this encounter Additional Health Concerns Assessment Noted Time PHQ-9 Depression Total Score: 0 09/30/19 24 11:02 AM EDT documented as of this encounter Care Teams Director Of Preclinical Research Relationship Specialty Start Date End Date Bc Hunter MD [address] [place] [address] PCP - General Internal Medicine 01/03/19 documented as of this encounter
--- OUTSIDE RECORDS SUMMARY | 2024-11-24 11:57 | XMS_ITS | Encounter Summary ---
Author Organization [employer] Address 75 [facility] 7 [place] [address] Care Team Providers Care Customer Manager Name Role Phone Bc Hunter MD Primary Care Prov ider Reason for Visit * Reason Onset Date Comments Medication Question 08/29/2024 Encounter Details Date Type Department Care Team ([facility] st Contact Info) Description 08/29/2024 Telephone [facility] MEDICINE [address] [place] [address] Bc Hunter MD [address] [place], [place] [phone] Medication Question Social History Tobacco Use Types [...] - 08/29/2024 1:29 PM EDT Tc from [place] staff with [facility] reports Doctors orders and script pharmacy has do not match .Please contact [facility] for medication reconciliation. documented in this encounter Plan of Treatment Upcoming Encounters Date Type Department Care Team (Late st Contact Info) Description 11/24/2024 2:30 PM EDT Office Visit [facility]ED[facility] [address] [place] [address] Zafar Richard MD 505 [place] [address] 01/08/2025 11:15 AM EDT Office Visit [facility]ED[facility] 505 [place] [address] Bc Hunter MD 505 [place] [address] documented as of this encounter Visit Diagnoses Not on filedocumented in this encounter Additional Health Concerns Assessment Noted Time PHQ-9 Depression Total Score: 0 09/30/19 24 11:02 AM EDT documented as of this encounter Care Teams Customer Manager Relationship Specialty Start Date End Date Bc Hunter MD 505 [place] [address] PCP - General Internal Medicine 01/03/19 documented as of this encounter
--- OUTSIDE RECORDS SUMMARY | 2024-11-24 11:57 | XMS_ITS | Encounter Summary ---
Author Organization [employer] Address 75 [facility] 7 [place] [address] Care Team Providers Care Powder Worker Tnt Name Role Phone Bc Hunter MD Primary Care Prov ider Reason for Visit * Reason Comments Med Change Request Encounter Details Date Type Department Care Team ([facility] Contact Info) Description 11/18/2024 Refill [facility] CH[facility] MED & PEDS 505 [place] [address] Bc Hunter MD 505 [place] [address] Mixed hyperlipidemia Social History Tobacco Use Types [...] 2:30 PM EDT Office Visit [facility] MED & PEDS 505 [place] [address] Zafar Richard MD 505 [place] [address] 01/08/2025 11:15 AM EDT Office Visit [facility] MED [facility] PEDS 505 [place] [address] Bc Hunter MD 505 [place] [address] documented as of this encounter Visit Diagnoses Diagnosis Mixed hyperlipidemia documented in this encounter Additional Health Concerns Assessment Noted Time PHQ-9 Depression Total Score: 0 09/30/19 24 11:02 AM EDT documented as of this encounter Care Teams Powder Worker Tnt Relationship Specialty Start Date End Date Bc Hunter MD 505 [place] [address] PCP - General Internal Medicine 01/03/19 documented as of this encounter
--- OUTSIDE RECORDS SUMMARY | 2024-11-24 11:57 | XMS_ITS | Encounter Summary ---
Author Organization [employer] Address 75 [facility] 7 [place] [address] Care Team Providers Care Managed Services Sales Consultant Name Role Phone Bc Hunter MD Primary Care Prov ider Reason for Visit * Reason Comments Med Refill Encounter Details Date Type Department Care Team ([facility] st Contact Info) Description 08/06/2024 Refill [facility] MEDICINE 230 [place] [address] Bc Hunter MD [address] [place], [place] [phone] Social History Tobacco Use Types Packs/Day Years [...] Description 11/24/2024 2:30 PM EDT Office Visit [facility] MED & PEDS 505 [place] [address] Zafar Richard MD 505 [place] [address] 01/08/2025 11:15 AM EDT Office Visit [facility] [address] [place] [address] Bc Hunter MD [address] [place] [address] documented as of this encounter Visit Diagnoses Not on filedocumented in this encounter Additional Health Concerns Assessment Noted Time PHQ-9 Depression Total Score: 0 09/30/19 24 11:02 AM EDT documented as of this encounter Care Teams Managed Services Sales Consultant Relationship Specialty Start Date End Date Bc Hunter MD [address] [place] [address] PCP - General Internal Medicine 01/03/19 documented as of this encounter
--- OUTSIDE RECORDS SUMMARY | 2024-11-24 11:57 | XMS_ITS | Encounter Summary ---
Author Organization [employer] Address 75 [facility] 7 [place] [address] Care Team Providers Care Kitchen Manager Name Role Phone Bc Hunter MD Primary Care Prov ider Reason for Visit * Reason Comments Med Refill Encounter Details Date Type Department Care Team ([facility] st Contact Info) Description 05/18/2023 Refill [facility] MED & PEDS [address] [place] [address] Bc Hunter MD [address] [place] [address] Social History Tobacco Use Types Packs/Day Years [...] [facility] [address] [place] [address] Zafar Richard MD [address] [place] [address] 01/08/2025 11:15 AM EDT Office Visit [facility] MED & PEDS 505 [place] [address] Bc Hunter MD [address] [place] [address] documented as of this encounter Visit Diagnoses Not on filedocumented in this encounter Additional Health Concerns Assessment Noted Time PHQ-9 Depression Total Score: 0 07/11/19 23 11:26 AM EDT documented as of this encounter Care Teams Kitchen Manager Relationship Specialty Start Date End Date Bc Hunter MD [address] [place] [address] PCP - General Internal Medicine 01/03/19 documented as of this encounter
--- OUTSIDE RECORDS SUMMARY | 2024-11-24 11:57 | XMS_ITS | Encounter Summary ---
Author Organization [employer] Address [address] [place] [address] Care Team Providers Care Middle School Director Name Role Phone Bc Hunter MD Primary Care Prov ider Encounter Details Date Type Department Care Team (Late Contact Info) Description 02/24/2022 Telephone [facility] MEDICINE 230 [place] [address] Bc Hunter MD 505 [place], [place] [phone] Social History Tobacco Use Types Packs/Day Years [...] Description 11/24/2024 2:30 PM EDT Office Visit [facility] CHC MED & PEDS [address] [place] [address] Zafar Richard MD 505 [place] [address] 01/08/2025 11:15 AM EDT Office Visit [facility] CH[facility] MED & PEDS [address] [place] [address] Bc Hunter MD [address] [place], [place] [phone] documented as of this encounter Visit Diagnoses Not on filedocumented in this encounter Care Teams Middle School Director Relationship Specialty Start Date End Date Bc Hunter MD [address] [place] [address] PCP - General Internal Medicine 01/03/19 documented as of this encounter
--- OUTSIDE RECORDS SUMMARY | 2024-11-24 11:57 | XMS_ITS | Encounter Summary ---
Author Organization [employer] Address 75 [facility] 7 [place] [address] Care Team Providers Care Juice Tester Name Role Phone Bc Hunter MD Primary Care Prov ider Reason for Visit * Reason Onset Date Comments Call Back Request 11/15/2024 Encounter Details Date Type Department Care Team ([facility] Contact Info) Description 11/15/2024 Telephone [facility] CHC MED & PEDS [address] [place] [address] Bc Hunter MD [address] [place] [address] Call Back Request Social History Tobacco Use [...] 12:04 PM EDT TC to Olga with [facility]. Stated needs clarification to have claritin scheduled, have atorvastatin scheduled for HS and have FeSulfate scheduled for PM. Advised will fax over telephone order form and have pcp update order to [facility]. Fax sent to [facility] with confirmation. * Telephone Encounter - Jenn Krishnamurthy - 11/15/2024 11:06 AM EDT Tc from Olga Cage at [facility] requesting a call back to discuss medication labels Contact Olga at [phone] documented in this encounter Plan of Treatment Upcoming Encounters Date Type Department Care Team (Late st Contact Info) Description 11/24/2024 2:30 PM EDT Office Visit [facility] MED & PEDS [address] [place] [address] Zafar Richard MD [address] [place] [address] 01/08/2025 11:15 AM EDT Office Visit [facility] MED & PEDS [address] [place] [address] Bc Hunter MD [address] [place] [address] documented as of this encounter Visit Diagnoses [...] documented as of this encounter Care Teams Juice Tester Relationship Specialty Start Date End Date Bc Hunter MD [address] [place] [address] PCP - General Internal Medicine 01/03/19 documented as of this encounter
--- OUTSIDE RECORDS SUMMARY | 2024-11-24 11:57 | XMS_ITS | Encounter Summary ---
Author Organization [employer] Address 75 [facility] 7 [place] [address] Care Team Providers Care Strawhat Sizer Name Role Phone Bc Hunter MD Primary Care Prov ider Reason for Visit * Reason Onset Date Comments chart prep 11/23/2024 Encounter Details Date Type Department Care Team ([facility] Contact Info) Description 11/23/2024 Telephone [facility] CHC MED & PEDS [address] [place] [address] Bc Hunter MD [address] [place] [address] chart prep Social History Tobacco Use Types [...] Description 11/24/2024 2:30 PM EDT Office Visit [facility] MED & PEDS [address] [place] [address] Zafar Richard MD [address] [place] [address] 01/08/2025 11:15 AM EDT Office Visit [facility] MED & PEDS [address] [place] [address] Bc Hunter MD [address] [place] [address] documented as of this encounter Visit Diagnoses Not on filedocumented in this encounter Additional Health Concerns Assessment Noted Time PHQ-9 Depression Total Score: 0 09/30/19 24 11:02 AM EDT documented as of this encounter Care Teams Strawhat Sizer Relationship Specialty Start Date End Date Bc Hunter MD [address] [place] [address] PCP - General Internal Medicine 01/03/19 documented as of this encounter
--- OUTSIDE RECORDS SUMMARY | 2024-11-24 11:57 | XMS_ITS | Encounter Summary ---
Author Organization [employer] Address 75 [facility] 7t [place] [address] Care Team Providers Care Video Producer Name Role Phone Bc Hunter MD Primary Care Prov ider Encounter Details Date Type Department Care Team ([facility] st Contact Info) Description 11/23/2024 Orders [...] Visit [facility] MED & PEDS [address] [place] [address] Zafar Richard MD [address] [place] [address] 01/08/2025 11:15 AM EDT Office Visit [facility] MED [facility] PEDS [address] [place] [address] Bc Hunter MD [address] [place] [address] documented as of this encounter Procedures Procedure Name Priority Date/Time Associated Diagnosis Comments PROTHROMBIN TIME-INR Routine 11/23/2024 11:10 AM EDT PROTHROMBIN TIME WHOLE BLD POC Routine 11/23/2024 10:47 AM EDT ~PT, ~INR - ANTI COAG CLINIC Routine 11/23/2024 10:47 AM EDT documented in this encounter Results * (ABNORMAL) Prothrombin Time-INR (11/23/2024 11:10 AM EDT) Prothrombin Time 81.2(H) 10.9 - 12.4 SEC [facility] INTERNATIONAL NORM RATIO 7.1(HH) 0.9 - 1.1 [facility] Comment:RESULTS OF INR STEPHENS D TO [...] ORDERAB LES Final Result Performing Organization Address City/[facility] Co de Phone Number [facility] [address] [place] [phone] * (ABNORMAL) PROTHROMBIN TIME WHOLE BLD POC (11/23/2024 10:47 AM EDT) Protime 80.6(H) 11.1 - 13.5 sec [facility] 11/23/2024 10:4 7 AM EDT 11/23/2024 10:51 AM EDT Generic External Data Provider LAB BLOOD ORDERAB LES Final Result Performing Organization Address [facility] de Phone Number [facility] [address] [place] [phone] * (ABNORMAL) ~PT, ~INR - ANTI COAG CLINIC (11/23/2024 10:47 AM EDT) Prothrombin Time INR 6.7(HH) 0.9 - 1.1 [facility] Comment:METER #: [id number] TERNATIONAL NORMALIZED RATIO (INR) REFERENCE RANGES Reference [...] Provider LAB BLOOD ORDERAB LES Final Result [facility] [address] [place] [address] [phone] documented in this encounter Visit Diagnoses Not on filedocumented in this encounter Additional Health Concerns Assessment Noted Time PHQ-9 Depression Total Score: 0 09/30/19 24 11:02 AM EDT documented as of this encounter Care Teams Video Producer Relationship Specialty Start Date End Date Bc Hunter MD [address] [place] [address] PCP - General Internal Medicine 01/03/19 documented as of this encounter
--- OUTSIDE RECORDS SUMMARY | 2024-11-24 11:57 | XMS_ITS | Encounter Summary ---
Author Organization [employer] Address [address] [place] [address] 7 [place] [address] Care Team Providers Care Door Puller Name Role Phone Bc Hunter MD Primary Care Prov ider Encounter Details Date Type Department Care Team (Late Contact Info) Description 05/18/2022 Orders Only [facility] MED & PEDS [address] [place] [address] Bc Hunter MD [address] [place] [address] S/P aortic valve replacement Social History Tobacco [...] Description 11/24/2024 2:30 PM EDT Office Visit [facility] MED & PEDS [address] [place] [address] Zafar Richard MD [address] [place], [place] [phone] 01/08/2025 11:15 AM EDT Office Visit [facility] MED & PEDS [address] [place] [address] Bc Hunter MD [address] [place] [address] documented as of this encounter Visit Diagnoses Diagnosis S/P aortic valve replacement Heart valve replaced by other means documented in this encounter Care Teams Door Puller Relationship Specialty Start Date End Date Bc Hunter MD [address] [place] [address] PCP - General Internal Medicine 01/03/19 documented as of this encounter
--- OUTSIDE RECORDS SUMMARY | 2024-11-24 11:57 | XMS_ITS | Encounter Summary ---
Author Organization [employer] Address 75 [facility] 7 [place] [address] Care Team Providers Care Signal Operator Technical Name Role Phone Bc Hunter MD Primary Care Prov ider Reason for Visit * Reason Onset Date Comments Nurse Triage 05/26/2023 Encounter Details Date Type Department Care Team ([facility] st Contact Info) Description 05/26/2023 Telephone [facility] MEDICINE [address] [place] [address] Bc Hunter MD [address] [place], [place] [phone] Nurse Triage Social History Tobacco Use Types [...] AM EST Triage call Pt is in halfway, Krystin Sepulveda taking call and consent is signed by Pt for staff to speak . Pt has had some changes. Pt decided to stop all psyche medications and MD Ward Myers,discontinued them. (Stop date unknown) Pt has since that time decreased eating, appetite is poor. Pt weight yesterday at [facility] [employer] apt is 173lbs. Pt was said to be around 202lbs regularly. Pt clothes are fitting very loosely now. Pt also wanted to stop coumadin but, director life sales instructed that wouldn't be good to do [...] acuity questions The caller accepted this outcome [phone] documented in this encounter Plan of Treatment Upcoming Encounters Date Type Department Care Team (Late st Contact Info) Description 11/24/2024 2:30 PM EDT Office Visit [facility] MED & PEDS [address] [place] [address] Zafar Richard MD [address] [place] [address] 01/08/2025 11:15 AM EDT Office Visit [facility] MED & PEDS [address] [place] [address] Bc Hunter MD [address] [place] [address] documented as of this encounter Visit Diagnoses Not on filedocumented in this encounter Additional Health Concerns Assessment Noted Time PHQ-9 Depression Total Score: 0 07/11/19 23 11:26 AM EDT documented as of this encounter Care Teams Signal Operator Technical Relationship Specialty Start Date End Date Bc Hunter MD [address] [place] [address] PCP - General Internal Medicine 01/03/19 documented as of this encounter
--- OUTSIDE RECORDS SUMMARY | 2024-11-24 11:57 | XMS_ITS | Encounter Summary ---
Author Organization [employer] Address 75 [facility] 7 [place] [address] Care Team Providers Care Laser Specialist Name Role Phone Bc Hunter MD Primary Care Prov ider Reason for Visit * Reason Onset Date Comments CRITICAL LAB 11/23/2024 Encounter Details Date Type Department Care Team ([facility] st Contact Info) Description 11/23/2024 Telephone [facility]EDIATRICS [address] [place] [address] Bc Hunter MD [address] [place], [place] [phone] CRITICAL LAB Social History Tobacco Use Types [...] 11/23/2024 11:48 AM EDT TC incoming from [facility] anticoagulation clinic with critical lab. INR of [...] [facility] [address] [place] [address] Zafar Richard MD [address] [place] [address] 01/08/2025 11:15 AM EDT Office Visit [facility] MED & PEDS [address] [place] [address] Bc Hunter MD [address] [place] [address] documented as of this encounter Visit Diagnoses Not on filedocumented in this encounter Additional Health Concerns Assessment Noted Time PHQ-9 Depression Total Score: 0 09/30/19 24 11:02 AM EDT documented as of this encounter Care Teams Laser Specialist Relationship Specialty Start Date End Date Bc Hunter MD [address] [place] [address] PCP - General Internal Medicine 01/03/19 documented as of this encounter
== END 2024-11-24 11:15 | disposition home or self-care (01) ==
LOC: HO.ACS 10:53
PROVIDERS: PCP Internal Medicine; Visit Provider Internal Medicine Medical Oncology
DX: Z79.01 Long term (current) use of anticoagulants (principal)

== ENCOUNTER → 2024-11-24 10:53 | Outpatient (BNVA) | payer MEDICARE, MEDICAID, SELFPAY | PROVIDERS: PCP Internal Medicine; Visit Provider Internal Medicine Medical Oncology | DX: Z51.81 Encounter for therapeutic drug level monitoring (principal); Z79.01 Long term (current) use of anticoagulants | CPT/HCPCS: 85610; 99211 ==

== ENCOUNTER 2024-11-28 10:46 | Outpatient (AMB) | payer MEDICARE, MEDICAID, SELFPAY ==
--- OUTSIDE RECORDS SUMMARY | 2024-11-24 14:30 | XMS_ITS | Encounter Summary ---
Author Organization [employer] Address [address] [place] [address] 7 [place] [address] Care Team Providers Care Loan Services Professional Name Role Phone Bc Hunter MD Primary Care Prov ider Reason for Visit * Reason Comments Cough Shortness of Breath Encounter Details Date Type Department Care Team ([facility] Contact Info) Description 11/24/2024 2:30 PM EDT Office Visit [facility] MED & PEDS [address] [place] [address] Zafar Richard MD [address] [place] [address] COPD exacerbation (CMS/HCC) (Primary Dx); Cigarette nicotine dependence without complication; Mixed hyperlipidemia; Congestion of nasal sinus; Acquired hypothyroidism; Irritable bowel syndrome with diarrhea; Iron deficiency anemia due to chronic blood loss Social History Tobacco Use Types Packs/Day Years [...] Sign Reading Time Taken Comments Blood Pressure 111/68 11/24/2024 2:43 PM EDT Pulse 93 11/24/2024 2:43 PM EDT Temperature - - Respiratory Rate 19 11/24/2024 2:43 PM EDT Oxygen Saturation 99% 11/24/2024 2:43 PM EDT Inhaled Oxygen Concentration - - Weight 78 kg (172 lb) 11/24/2024 2:43 PM EDT Height 177.8 cm (5' 10 ) 11/24/2024 2:43 PM EDT Body Mass Index 24.68 11/24/2024 2:43 PM EDT documented in this encounter Progress Notes * Zafar Richard MD - 11/24/2024 2:30 PM EDT SUBJECTIVE Chris Zaragoza is a 74 y.o. male who presents for No chief complaint on file.. Cough Associated symptoms include shortness of breath. Pertinent negatives include no chills or eye redness. Shortness of Breath Pertinent negatives include no leg swelling. Patient is an active smoker, history of COPD. Smokes up to 3 packs of cigarettes a day according toher quality liaison presented during the encounter. He is here complaining of a moist cough of over a month duration. No reported fever. Associated with shortness of breath. Mr. Chris Zaragoza would like to get a walker with wheels and seat. The quality liaison came to the office with a long list of medications that needs adjustment in the way the order is written so that the order sin the chart matches the way patient is receiving [facility]. Problem List[1] Allergies[2] Medications Ordered Prior to Encounter[3] Review of Systems Constitutional: Negative for appetite change, chills and diaphoresis. Eyes: Negative for pain and redness. Respiratory: Positive for cough and shortness of breath. Cardiovascular: Negative for palpitations and leg swelling. Genitourinary: Negative for frequency, genital sores and hematuria. OBJECTIVE Vitals: 11/24/24 1443 BP: 111/68 Pulse: 93 Resp: 19 SpO2: 99% Weight: 172 lb (78 kg) Height: 5' 10 (1.778 m) Physical Exam Constitutional: General: He is not in acute distress. Appearance: Normal appearance. He is not ill-appearing, toxic-appearing or diaphoretic. Cardiovascular: Rate and Rhythm: Normal rate. Pulmonary: Breath sounds: Decreased air movement present. Decreased breath sounds present. Neurological: Mental Status: He is alert. Assessment/Plan Assessment/Plan Diagnoses and all orders for this visit: COPD exacerbation ([facility]) - XR Chest 2 Views; Future - azithromycin (Zithromax) 250 MG tablet; Take 1 tablet (250 mg) by mouth Once per day for 5 days. 500 mg day 1, 250 mg day 2 through 5 - albuterol 108 (90 Base) MCG/ACT inhaler; Inhale 2 puffs every 6 (six) hours if needed for wheezing. 2 puffs every 6 hours for the next 2 days ( 11/24/2024 and 11/25/2024) - guaiFENesin (Mucinex) 600 MG 12 hr tablet; Take 2 tablets (1,200 mg) by mouth 2 times daily. Do not crush, chew, or split. - CBC auto differential; Future - D Dimer High Sensitivity; Future Cigarette nicotine dependence without complication Comments: smokes up to 3 ppd Orders: - nicotine polacrilex (Nicorette) 4 MG gum; Chew 1 each (4 mg) if needed for smoking cessation. Mixed hyperlipidemia - magnesium oxide (Mag-Ox) 400 (240 Mg) MG tablet; TAKE 1 TABLET 2 times a day (8 AM and 8 PM) - atorvastatin (Lipitor) 40 MG tablet; 1 tab at 8 PM Congestion of nasal sinus - loratadine (Claritin) 10 MG tablet; TAKE 1 TABLET (10 MG) BY MOUTH DAILY IN THE MORNING Acquired hypothyroidism - levothyroxine (Synthroid, Levoxyl) 25 MCG tablet; Take 1 tablet (25 mcg) by mouth before breakfast. Irritable bowel syndrome with diarrhea - dicyclomine (Bentyl) 20 MG tablet; TAKE 1 TABLET BY MOUTH BEFORE BREAKFAST AND BEFORE EVENING MEAL. Iron deficiency anemia due to chronic blood loss - ferrous sulfate 325 (65 Fe) MG tablet; 1 tab at 5 PM daily [1] Patient Active Problem List Diagnosis History of Coumadin therapy S/P aortic valve replacement Pre-op evaluation Hyperlipemia, mixed Benign prostatic hyperplasia with urinary frequency Bilateral impacted cerumen Hypothyroidism Mild chronic obstructive pulmonary disease (CMS/HCC) Stage 3a chronic kidney disease (CMS/HCC) Iron deficiency anemia Physical exam Sprain of left ankle Seborrheic dermatitis of scalp Other schizophrenia (CMS/HCC) Nodule of left lung Cigarette nicotine dependence without complication Psychoactive substance abuse (CMS/HCC) [2] No Known Allergies [3] Current Outpatient Medications on File Prior to Visit Medication Sig Dispense Refill Acetaminophen Extra Strength 500 MG tablet TAKE 1 TABLET (500 MG) BY MOUTH EVERY 6 (SIX) HOURS IF NEEDED FOR MODERATE PAIN. 60 tablet 3 albuterol 108 (90 Base) MCG/ACT inhaler Inhale 2 puffs every 4 (four) hours if needed for wheezing.18 g 1 atorvastatin (Lipitor) 40 MG tablet Take 1 tablet (40 mg) by mouth in the morning. TAKE 1 TABLET BYMOUTH EVERY DAY IN THE EVENING 90 tablet 1 benztropine (Cogentin) 1 MG [...] mouth in the morning. 90 tablet 3 fluPHENAZine decanoate (Prolixin) 25 [...] tablet 3 loratadine (Claritin) 10 MG tablet Take 1 tablet (10 mg) by mouth Once per day. TAKE 1 TABLET (10 MG) BY MOUTH DAILY IN THE MORNING 90 tablet 2 magnesium oxide (Mag-Ox) 400 (240 Mg) MG tablet TAKE 1 TABLET BY MOUTH Morning and afternoon 180 tablet 1 Multiple Vitamin (Daily-Stanley Multivitamin) tablet Take 1 [...] puff in the morning. 60 each 3 Ventolin HFA 108 (90 Base) MCG/ACT inhaler INHALE 2 PUFFS EVERY 4 HOURS NEEDED 18 g 3 warfarin (Coumadin) 2 MG tablet TAKE 1-2 TABLETS EVERY EVENING DIRECTED BY COUMADIN CLINIC 180 tablet 1 No current facility-administered medications on file prior to visit. documented in this encounter Plan of Treatment Upcoming Encounters Date Type Department Care Team (Late st Contact Info) Description 01/08/2025 11:15 AM EDT Office Visit [facility] MED & PEDS [address] [place] [address] Bc Hunter MD [address] [place], [place] [phone] Scheduled Orders Name Type Priority Associated Diagnoses Orde r Schedule XR Chest 2 Views Imaging Routine COPD exacerbation ([facility]) Expected: 11/24/2024, Expires: 11/24/2025 CBC auto differential Lab Routine COPD exacerbation ([facility]) Expected: 11/24/2024 (Approximate), Expires: 11/24/2025 D Dimer High Sensitivity Lab Routine COPD exacerbation ([facility]) Expected: 11/24/2024, Expires: 11/24/2025 documented as of this encounter Visit Diagnoses Diagnosis COPD exacerbation ([facility])- Primary Obstructive chronic bronchitis with exacerbation Cigarette nicotine dependence without complication Mixed hyperlipidemia Congestion of nasal sinus Other diseases of nasal cavity and sinuses Acquired hypothyroidism Unspecified hypothyroidism Irritable bowel syndrome with diarrhea Irritable bowel syndrome Iron deficiency anemia due to chronic blood loss Iron deficiency anemia secondary to blood loss (chronic) documented in this encounter Additional Health Concerns Assessment Noted Time PHQ-9 Depression Total Score: 0 09/30/19 24 11:02 AM EDT documented as of this encounter Care Teams Loan Services Professional Relationship Specialty Start Date End Date Bc Hunter MD [address] [place] [phone] PCP - General Internal Medicine 01/03/19 documented as of this encounter
[2024-11-28 10:58] LABS: Prothrombin Time Whole Bld POC 29.6 sec (11.1-13.5); ~PT, ~INR - Anti Coag Clinic 2.5 (0.9-1.1)
--- NOTE | 2024-11-28 11:07 | MHC.OFFVISCO ---
Intake Intake Visit Reasons: Anticoagulation Allergies No Known Allergies Allergy (Mild, Verified 11/28/24 10:48) NOT APPLICABLE Medication List - Last Reconciled 11/28/24 by Raissa Hull RN albuterol sulfate 90 mcg/actuation (Ventolin HFA) 1 puff inhalation RQ4H PRN amantadine HCl 100 mg PO BID atorvastatin 40 mg PO BEDTIME azithromycin mg PO carbamide peroxide (Debrox) 5 DROPS EACH EAR EVERY 2 WEEKS cholecalciferol (vitamin D3) (Vitamin D3) 25 mcg PO QAM dicyclomine 20 mg PO BID divalproex ER 1,000 mg PO BEDTIME ferrous sulfate 324 mg PO DAILY ferrous sulfate 325 mg PO QAM [FLUCINOLONE TOPICAL DAILY ] bwzojrhzvog-kfypyqcqz-btgvbkwr 200-62.5-25 mcg (Trelegy Ellipta) 1 inh inhalation DAILY guaifenesin ER (Mucus Relief ER) 1,200 mg PO BID levothyroxine 25 mcg PO DAILY@0600 loratadine 10 mg PO DAILY magnesium oxide 400 mg PO BIDPC multivitamin with folic acid 400 mcg (Daily-Stanley (with folic acid)) 1 tab PO DAILY pantoprazole 40 mg PO BID revefenacin (Yupelri) 175 mcg (3 mL) inhalation DAILY 30 days risperidone (Risperdal) 4 mg PO BID tamsulosin 0.4 mg PO BEDTIME valproic acid 1000mg orally daily; warfarin See Protocol 2 mg orally 4MG DAILY OR DIRECTED; 4MG DAILY OR DIRECTED Nursing Note INR: 2.5 in therapeutic range S/P CRITICAL INR RANGES 7.1 AND 5.0 - ? R/T diet and drug use Medications and supplements reviewed No changes in health, diet, medications, or supplements, Denies any signs and symptoms of bleeding or bruising or clotting. Bleeding, bruising, clotting discussed Nutritional guidance given - eat at lest 1 healthy meal with protein, fruits and vegetables daily along with 2 servings of greens/ week Dose: lower dose 2mg x 3 days/ 4mg x 4 days F/U INR: weekly 12/05/24 Discussed risk of with fentanyl use and to not trust street drugs due to be possibly laced with other dangerous substances Patient and PATIENT CARE SPECIALIST verbalize understanding of instructions given Anti-Coag Initial Assessment Social Hx Patient Tobacco Use Status: Refuse Tobacco use screen alcohol intake: never Coding Level of Care Code Est Patient Level 1 Diagnoses Current use of anticoagulant therapy Z79.01 Results AMB INR Fingerstick AMB INR Fingerstick 2.5 Last Edit by Raissa Hull RN on 11/28/24 11:01 manual entry Assessment & Plan Assessment & Plan (1) Current use of anticoagulant therapy: Code(s): Z79.01 - rodent exterminator (current) use of anticoagulants Category: Medical
--- OUTSIDE RECORDS SUMMARY | 2024-11-28 12:58 | XMS_ITS | Encounter Summary ---
Author Organization [facility] Address [address] [place] [address] Phone Care Team Providers Care Inspector Plating Name Role Phone Bc Yates Primary Care Provider [phone] Reason for Visit * Reason Comments Med Refill Encounter Details Date Type Department Care Team (Late st Contact Info) Description 01/13/2022 Refill [facility] [address] [place] [address] Trever Lopez MD [address] [facility] [address] [place] [address] Social History Tobacco Use Types [...] Visit [facility] [address] [place] [address] Trever Lopez MD [address] [place] [address] documented as of this encounter Visit Diagnoses Not on filedocumented in this encounter Care Teams Inspector Plating Relationship Specialty Start Date End Date Bc Yates PCP - General Internal Medicine 10/05/22 documented as of this encounter
--- OUTSIDE RECORDS SUMMARY | 2024-11-28 12:58 | XMS_ITS | Encounter Summary ---
Author Organization [employer] Address [address] [facility] 7 [place] [address] Care Team Providers Care Perpetual Inventory Clerk Name Role Phone Bc Hunter MD Primary Care Prov ider Reason for Visit * Reason Comments Med Refill Encounter Details Date Type Department Care Team ([facility] st Contact Info) Description 08/06/2024 Refill [facility] MEDICINE [address] [place] [address] Bc Hunter MD [address] [place], [place] [phone] Social History Tobacco Use Types Packs/Day Years [...] Description 01/08/2025 11:15 AM EDT Office Visit [facility] MED & PEDS [address] [place] [address] Bc Hunter MD [address] [place] [address] documented as of this encounter Visit Diagnoses Not on filedocumented in this encounter Additional Health Concerns Assessment Noted Time PHQ-9 Depression Total Score: 0 09/30/19 24 11:02 AM EDT documented as of this encounter Care Teams Perpetual Inventory Clerk Relationship Specialty Start Date End Date Bc Hunter MD [address] [place] [address] PCP - General Internal Medicine 01/03/19 documented as of this encounter
--- OUTSIDE RECORDS SUMMARY | 2024-11-28 12:58 | XMS_ITS | Encounter Summary ---
Author Organization [employer] Address [address] [facility] 7 [place] [address] Care Team Providers Care Tape Sewing Machine Operator Name Role Phone Bc Hunter MD Primary Care Prov ider Reason for Visit * Reason Onset Date Comments Call Back Request 11/15/2024 Encounter Details Date Type Department Care Team ([facility] Contact Info) Description 11/15/2024 Telephone [facility] MED & PEDS [address] [place] [address] Bc Hunter MD [address] [place] [address] Call Back Request Social History Tobacco Use [...] 12:04 PM EDT TC to Olga with [facility]. Stated needs clarification to have claritin scheduled, have atorvastatin scheduled for HS and have FeSulfate scheduled for PM. Advised will fax over telephone order form and have pcp update order to [facility]. Fax sent to [facility] with confirmation. * Telephone Encounter - Jenn Krishnamurthy - 11/15/2024 11:06 AM EDT Tc from Olga Cage at [facility] requesting a call back to discuss medication labels Contact Olga at [phone] documented in this encounter Plan of Treatment Upcoming Encounters Date Type Department Care Team (Late st Contact Info) Description 01/08/2025 11:15 AM EDT Office Visit [facility] MED & PEDS [address] [place] [address] Bc Hunter MD [address] [place] [address] documented as of this encounter Visit Diagnoses Diagnosis Mixed hyperlipidemia Iron deficiency anemia due to chronic blood loss Iron deficiency anemia secondary to blood loss (chronic) Congestion of nasal sinus Other diseases of nasal cavity and sinuses documented in this encounter Additional Health Concerns Assessment Noted Time PHQ-9 Depression Total Score: 0 07/11/20 24 11:02 AM EDT documented as of this encounter Care Teams Tape Sewing Machine Operator Relationship Specialty Start Date End Date Bc Hunter MD [address] [place] [address] PCP - General Internal Medicine 01/03/19 documented as of this encounter
--- OUTSIDE RECORDS SUMMARY | 2024-11-28 12:58 | XMS_ITS | Encounter Summary ---
Author Organization [employer] Address [address] [facility] 7 [place] [address] Care Team Providers Care Fellmongery Worker Name Role Phone Bc Hunter MD Primary Care Prov ider Reason for Visit * Reason Onset Date Comments chart prep 11/23/2024 Encounter Details Date Type Department Care Team ([facility] Contact Info) Description 11/23/2024 Telephone [facility] MED & PEDS [address] [place] [address] Bc Hunter MD [address] [place] [address] chart prep Social History Tobacco Use Types [...] Description 01/08/2025 11:15 AM EDT Office Visit [facility] MED & PEDS [address] [place] [address] Bc Hunter MD [address] [place] [address] documented as of this encounter Visit Diagnoses Not on filedocumented in this encounter Additional Health Concerns Assessment Noted Time PHQ-9 Depression Total Score: 0 09/30/19 24 11:02 AM EDT documented as of this encounter Care Teams Fellmongery Worker Relationship Specialty Start Date End Date Bc Hunter MD [address] [place] [address] PCP - General Internal Medicine 01/03/19 documented as of this encounter
--- OUTSIDE RECORDS SUMMARY | 2024-11-28 12:58 | XMS_ITS | Encounter Summary ---
Author Organization [employer] Address [address] [facility] 7t [place] [address] Care Team Providers Care Military Exchange Wireless Manager Name Role Phone Bc Hunter MD Primary Care Prov ider Encounter Details Date Type Department Care Team ([facility] st Contact Info) Description 11/24/2024 Orders Only [...] 01/08/2025 11:15 AM EDT Office Visit [facility] MED & PEDS [address] [place] [address] Bc Hunter MD [address] [place] [address] documented as of this encounter Procedures Procedure Name Priority Date/Time Associated Diagnosis Comments PROTHROMBIN TIME WHOLE BLD POC Routine 11/24/2024 10:58 AM EDT ~PT, ~INR - ANTI COAG CLINIC Routine 11/24/2024 10:58 AM EDT documented in this encounter Results * (ABNORMAL) PROTHROMBIN TIME WHOLE BLD POC (11/24/2024 10:58 AM EDT) Protime 59.6(H) 11.1 - 13.5 sec [facility] 11/24/2024 10:5 8 AM EDT 11/24/2024 11:01 AM EDT us Generic External Data Provider LAB BLOOD ORDERAB LES Final Result [facility] [address] [place] [address] [phone] * (ABNORMAL) ~PT, ~INR - ANTI COAG CLINIC (11/24/2024 10:58 AM EDT) Prothrombin Time INR 5.0(HH) 0.9 - 1.1 [facility] Comment:METER #: [id number] TERNATIONAL NORMALIZED RATIO (INR) REFERENCE RANGES Reference [...] Provider LAB BLOOD ORDERAB LES Final Result [facility] [address] [place] [address] [phone] documented in this encounter Visit Diagnoses Not on filedocumented in this encounter Additional Health Concerns Assessment Noted Time PHQ-9 Depression Total Score: 0 09/30/19 24 11:02 AM EDT documented as of this encounter Care Teams Military Exchange Wireless Manager Relationship Specialty Start Date End Date Bc Hunter MD [address] [place] [phone] PCP - General Internal Medicine 01/03/19 documented as of this encounter
--- OUTSIDE RECORDS SUMMARY | 2024-11-28 12:58 | XMS_ITS | Encounter Summary ---
Author Organization [employer] Address [address] [facility] 7 [place] [address] Care Team Providers Care Dog Or Animal Sitter Name Role Phone Bc Hunter MD Primary Care Prov ider Reason for Visit * Reason Onset Date Comments Nurse Triage 11/22/2024 Encounter Details Date Type Department Care Team ([facility] st Contact Info) Description 11/22/2024 Telephone [facility] MED[facility] [address] [place] [address] Bc Hunter MD [address] [place], [place] [phone] Nurse Triage Social History Tobacco Use Types Packs/Day Years Used Date Smoking Tobacco: Every Day Cigarettes Depression Answer Date Recorded Patient Health Questionnaire-9 Score 0 09/30/2023 Patient Health Questionnaire-9 Score 0 09/30/2023 Last PHQ-9: Questionnaire Data Not on file 0 09/30/2023 Housing Stability Answer Date Recorded What is your housing situation today? I have ento fernandez 07/19/[address] you [...] EDT Triage call to Krystin, staff at [facility] where Pt resides. Pt is in [...] be seen by provider. Offered apt in [facility] tomorrow morning 915am but, unable to go at that time. Pt is given ASK apt 11/24/[address]Dr. Richard in [facility]. Pt is offered to come to [facility] in [facility] but, declined today, Krystin will considerthis if Pt gets worse before 11/24 apt. [facility] apt will be canceled if seen [...] caller accepted this outcome. Contact Krystin at [phone] documented in this encounter Plan of Treatment Upcoming Encounters Date Type Department Care Team ([facility] st Contact Info) Description 01/08/2025 11:15 AM EDT Office Visit [facility] MED & PEDS [address] [place] [address] Bc Hunter MD [address] [place] [address] documented as of this encounter Visit Diagnoses Not on filedocumented in this encounter Additional Health Concerns Assessment Noted Time PHQ-9 Depression Total Score: 0 09/30/19 24 11:02 AM EDT documented as of this encounter Care Teams Dog Or Animal Sitter Relationship Specialty Start Date End Date Bc Hunter MD [address] [place] [address] PCP - General Internal Medicine 01/03/19 documented as of this encounter
--- OUTSIDE RECORDS SUMMARY | 2024-11-28 12:58 | XMS_ITS | Encounter Summary ---
Author Organization [facility] Address [address] [place] [address] Phone Care Team Providers Care Lift Team Technician Name Role Phone Bc Yates Primary Care Provider [phone]- [phone] Encounter Details Date Type Department Care Team (Late st Contact Info) Description 05/26/2021 Documentation Only [facility] [address] [place] [address] Trever Lopez MD [address] [place] [address] [place] [address] Social History Tobacco Use Types [...] Visit [facility] [address] [place] [address] Trever Lopez MD [address] [place] [address] [place] [address] documented as of this encounter Visit Diagnoses Not on filedocumented in this encounter Care Teams Lift Team Technician Relationship Specialty Start Date End Date Bc Yates PCP - General Internal Medicine 10/05/22 documented as of this encounter
--- OUTSIDE RECORDS SUMMARY | 2024-11-28 12:58 | XMS_ITS | Clinical Summary ---
Author Organization [facility] Address [address] [place] [address] Phone Care Team Providers Care Piano Regulator Name Role Phone Bc Hunter Primary Care Provide r Medical History Medical History Date Comments Heart valve replaced by other means 06/29/2011 DX:Heart valve replaced by other means Asthma 06/29/2011 DX:Asthma Tobacco abuse 06/29/2011 DX:Tobacco abuse Schizophrenia ([facility] V24, CMS/HCC V28) 06/29/2011 DX:Schizophrenia ([facility]) Unspecified hypothyroidism 06/29/2011 DX:Un specified [...] Insurance MEDICARE MEDICAID - [place] Care Teams Piano Regulator Relationship Specialty Start Date End Date Bc Hunter [address] [place] [phone] PCP - General Internal Medicine 04/13/24
--- OUTSIDE RECORDS SUMMARY | 2024-11-28 12:58 | XMS_ITS | Encounter Summary ---
Author Organization [employer] Address [address] [facility] 7 [place] [address] Care Team Providers Care Railroad Crane Operator Name Role Phone Bc Hunter MD Primary Care Prov ider Reason for Visit * Reason Comments Med Change Request Encounter Details Date Type Department Care Team ([facility] Contact Info) Description 11/18/2024 Refill [facility] MED & PEDS [address] [place] [address] Bc Hunter MD [address] [place] [address] Mixed hyperlipidemia Social History Tobacco Use Types [...] Description 01/08/2025 11:15 AM EDT Office Visit [facility] MED & PEDS [address] [place] [address] Bc Hunter MD [address] [place] [address] documented as of this encounter Visit Diagnoses Diagnosis Mixed hyperlipidemia documented in this encounter Additional Health Concerns Assessment Noted Time PHQ-9 Depression Total Score: 0 09/30/19 24 11:02 AM EDT documented as of this encounter Care Teams Railroad Crane Operator Relationship Specialty Start Date End Date Bc Hunter MD [address] [place] [address] PCP - General Internal Medicine 01/03/19 documented as of this encounter
--- OUTSIDE RECORDS SUMMARY | 2024-11-28 12:58 | XMS_ITS | Encounter Summary ---
Author Organization [employer] Address [address] [facility] 7 [place] [address] Care Team Providers Care Flat Examiner Name Role Phone Bc Hunter MD Primary Care Prov ider Reason for Visit * Reason Onset Date Comments Med Refill 05/12/2022 Encounter Details Date Type Department Care Team ([facility] st Contact Info) Description 05/12/2022 Telephone [facility] MEDICINE [address] [place] [address] Bc Hunter MD [address] [place] [address] Med Refill Social History Tobacco Use Types [...] Description 01/08/2025 11:15 AM EDT Office Visit [facility] MED & PEDS 505 [place] [address] Bc Hunter MD 505 [place] [address] documented as of this encounter Visit Diagnoses Not on filedocumented in this encounter Care Teams Flat Examiner Relationship Specialty Start Date End Date Bc Hunter MD [address] [place] [address] PCP - General Internal Medicine 01/03/19 documented as of this encounter
--- OUTSIDE RECORDS SUMMARY | 2024-11-28 12:58 | XMS_ITS | Clinical Summary ---
Author Organization [facility], Address [address] [place] [address] [place] [address] Phone Care Team Providers Care Vessel Slag Worker Name Role Phone YatesBc Primary Care Provider Allergies No known active allergies Medications D3-50 1.25 MG (35508 UT) capsule TAKE 1 CAPSULE BY MOUTH [...] Visit [facility] [address] [place] [address] Trever Lopez MD [address] [place] [phone] Health Maintenance Due Date Last Done Comments [...] topic Insurance Medicare Medicaid [place] Care Teams Vessel Slag Worker Relationship Specialty Start Date End Date Bc Yates PCP - General Internal Medicine 10/05/22
--- OUTSIDE RECORDS SUMMARY | 2024-11-28 12:58 | XMS_ITS | Encounter Summary ---
Author Organization [employer] Address [address] [facility] 7 [place] [address] Care Team Providers Care Cmm Operator Name Role Phone Bc Hunter MD Primary Care Prov ider Reason for Visit * Reason Onset Date Comments Nurse Triage 05/26/2023 Encounter Details Date Type Department Care Team ([facility] st Contact Info) Description 05/26/2023 Telephone [facility] MEDICINE [address] [place] [address] Bc Hunter MD [address] [place], [place] [phone] Nurse Triage Social History Tobacco Use Types [...] appetite is poor. Pt weight yesterday at field seismologist apt is 173lbs. Pt was said to be around 202lbs regularly. Pt clothes are fitting very loosely now. Pt also wanted to stop coumadin but, field seismologist instructed that wouldn't be good to do [...] acuity questions The caller accepted this outcome [phone] documented in this encounter Plan of Treatment Upcoming Encounters Date Type Department Care Team ([facility] st Contact Info) Description 01/08/2025 11:15 AM EDT Office Visit [facility] MED & PEDS [address] [place] [address] Bc Hunter MD [address] [place] [address] documented as of this encounter Visit Diagnoses Not on filedocumented in this encounter Additional Health Concerns Assessment Noted Time PHQ-9 Depression Total Score: 0 07/11/19 23 11:26 AM EDT documented as of this encounter Care Teams Cmm Operator Relationship Specialty Start Date End Date Bc Hunter MD [address] [place] [address] PCP - General Internal Medicine 01/03/19 documented as of this encounter
--- OUTSIDE RECORDS SUMMARY | 2024-11-28 12:58 | XMS_ITS | Encounter Summary ---
Author Organization [employer] Address [address] [facility] 7t [place] [address] Care Team Providers Care Manager Utility Name Role Phone Bc Hunter MD Primary Care Prov ider Encounter Details Date Type Department Care Team ([facility] st Contact Info) Description 11/23/2024 Orders Only [...] Description 01/08/2025 11:15 AM EDT Office Visit [facility] MED & PEDS 505 [place] [address] Bc Hunter MD 505 [place] [address] documented as of this encounter Procedures Procedure Name Priority Date/Time Associated Diagnosis Comments PROTHROMBIN TIME-INR Routine 11/23/2024 11:10 AM EDT PROTHROMBIN TIME WHOLE BLD POC Routine 11/23/2024 10:47 AM EDT ~PT, ~INR - ANTI COAG CLINIC Routine 11/23/2024 10:47 AM EDT documented in this encounter Results * (ABNORMAL) Prothrombin Time-INR (11/23/2024 11:10 AM EDT) Prothrombin Time 81.2(H) 10.9 - 12.4 SEC [facility] INTERNATIONAL NORM RATIO 7.1(HH) 0.9 - 1.1 [facility] Comment:RESULTS OF INR STEPHENS D TO [...] ORDERAB LES Final Result Performing Organization Address [facility] de Phone Number [facility] [address] [place] [phone] * (ABNORMAL) PROTHROMBIN TIME WHOLE BLD POC (11/23/2024 10:47 AM EDT) Protime 80.6(H) 11.1 - 13.5 sec [facility] 11/23/2024 10:4 7 AM EDT 11/23/2024 10:51 AM EDT Generic External Data Provider LAB BLOOD ORDERAB LES Final Result Performing Organization Address [facility] Number [facility] [address] [place] [phone] * (ABNORMAL) ~PT, ~INR - ANTI COAG CLINIC (11/23/2024 10:47 AM EDT) Prothrombin Time INR 6.7(HH) 0.9 - 1.1 [facility] Comment:METER #: [id number] TERNATIONAL NORMALIZED RATIO (INR) REFERENCE RANGES Reference [...] ORDERAB LES Final Result Performing Organization Address [facility] de Phone Number [facility] [address] [place] [phone] documented in this encounter Visit Diagnoses Not on filedocumented in this encounter Additional Health Concerns Assessment Noted Time PHQ-9 Depression Total Score: 0 09/30/19 24 11:02 AM EDT documented as of this encounter Care Teams Manager Utility Relationship Specialty Start Date End Date Bc Hunter MD [address] [place] [address] PCP - General Internal Medicine 01/03/19 documented as of this encounter
--- OUTSIDE RECORDS SUMMARY | 2024-11-28 12:58 | XMS_ITS | Encounter Summary ---
Author Organization [employer] Address [address] [place] [address] 7 [place] [address] Care Team Providers Care Energy Analyst Name Role Phone Bc Hunter MD Primary Care Prov ider Encounter Details Date Type Department Care Team (Late Contact Info) Description 05/18/2022 Orders Only [facility] MED & PEDS [address] [place] [address] Bc Hunter MD [address] [place], [place] [phone] S/P aortic valve replacement Social History Tobacco [...] Department Care Team (Late Contact Info) Description 01/08/2025 11:15 AM EDT Office Visit [facility] MED & PEDS [address] [place] [address] Bc Hunter MD [address] [place], [place] [phone] documented as of this encounter Visit Diagnoses Diagnosis S/P aortic valve replacement Heart valve replaced by other means documented in this encounter Care Teams Energy Analyst Relationship Specialty Start Date End Date Bc Hunter MD [address] [place] [address] PCP - General Internal Medicine 01/03/19 documented as of this encounter
--- OUTSIDE RECORDS SUMMARY | 2024-11-28 12:58 | XMS_ITS | Encounter Summary ---
Author Organization [employer] Address [address] [facility] 7t [place] [address] Care Team Providers Care Food Preparer Name Role Phone Bc Hunter MD Primary Care Prov ider Reason for Visit * Reason Comments Med Change Request Encounter Details Date Type Department Care Team ([facility] Contact Info) Description 07/19/2023 Refill [facility] CHC MED & PEDS [address] [place] [address] Oralia Mazariegos FNP [address] [place] [address] Social History Tobacco Use Types Packs/Day Years [...] [facility] MED & PEDS [address] [place] [address] Bc Hunter MD [address] [place] [address] documented as of this encounter Visit Diagnoses Not on filedocumented in this encounter Additional Health Concerns Assessment Noted Time PHQ-9 Depression Total Score: 0 07/11/19 23 11:26 AM EDT documented as of this encounter Care Teams Food Preparer Relationship Specialty Start Date End Date Bc Hunter MD [address] [place] [address] PCP - General Internal Medicine 01/03/19 documented as of this encounter
--- OUTSIDE RECORDS SUMMARY | 2024-11-28 12:58 | XMS_ITS | Encounter Summary ---
Author Organization [employer] Address [address] [facility] 7 [place] [address] Care Team Providers Care Curriculum And Instruction Specialist Name Role Phone Bc Hunter MD Primary Care Prov ider Encounter Details Date Type Department Care Team (Late st Contact Info) Description 09/20/2023 Orders Only [facility] CHC MED & PEDS [address] [place], [place] [phone] Bc Hunter MD [address] [place] [address] Social History Tobacco Use Types Packs/Day Years [...] [facility] [address] [place] [address] Bc Hunter MD [address] [place] [address] documented as of this encounter Visit Diagnoses Not on filedocumented in this encounter Additional Health Concerns Assessment Noted Time PHQ-9 Depression Total Score: 0 07/11/19 23 11:26 AM EDT documented as of this encounter Care Teams Curriculum And Instruction Specialist Relationship Specialty Start Date End Date Bc Hunter MD [address] [place] [address] PCP - General Internal Medicine 01/03/19 documented as of this encounter
--- OUTSIDE RECORDS SUMMARY | 2024-11-28 12:59 | XMS_ITS | Encounter Summary ---
Author Organization [employer] Address [address] [place] [address] Care Team Providers Care Software Engineer Kernel Name Role Phone Bc Hunter MD Primary Care Prov ider Encounter Details Date Type Department Care Team ([facility] Contact Info) Description 02/24/2022 Telephone [facility] MEDICINE [address] [place], [place] [phone] Bc Hunter MD [address] [place], [place] [phone] Social History Tobacco Use Types Packs/Day Years [...] Description 01/08/2025 11:15 AM EDT Office Visit [facility] CHC MED & PEDS [address] [place], [place] [phone] Bc Hunter MD [address] [place], [place] [phone] documented as of this encounter Visit Diagnoses Not on filedocumented in this encounter Care Teams Software Engineer Kernel Relationship Specialty Start Date End Date Bc Hunter MD [address] [place], [place] [phone] PCP - General Internal Medicine 01/03/19 documented as of this encounter
--- OUTSIDE RECORDS SUMMARY | 2024-11-28 12:59 | XMS_ITS | Encounter Summary ---
Author Organization [employer] Address [address] [place] [address] Care Team Providers Care Galvanizer Zinc Name Role Phone Bc Hunter MD Primary Care Prov ider Reason for Visit * Reason Comments Med Refill Encounter Details Date Type Department Care Team (Late Contact Info) Description 10/25/2022 Refill [facility] MED & PEDS [address] [place] [address] Bc Hunter MD [address] [place] [address] Social History Tobacco Use Types Packs/Day Years [...] Description 01/08/2025 11:15 AM EDT Office Visit [facility] MED & PEDS [address] [place], [place] [phone] Bc Hunter MD [address] [place] [address] documented as of this encounter Visit Diagnoses Not on filedocumented in this encounter Additional Health Concerns Assessment Noted Time PHQ-9 Depression Total Score: 0 07/11/19 23 11:26 AM EDT documented as of this encounter Care Teams Galvanizer Zinc Relationship Specialty Start Date End Date Bc Hunter MD [address] [place] [id number] PCP - General Internal Medicine 01/03/19 documented as of this encounter
--- OUTSIDE RECORDS SUMMARY | 2024-11-28 12:59 | XMS_ITS | Encounter Summary ---
Author Organization [employer] Address [address] [facility] 7 [place] [address] Care Team Providers Care Award Clerk Name Role Phone Bc Hunter MD Primary Care Prov ider Reason for Visit * Reason Onset Date Comments Med Refill 11/24/2024 Encounter Details Date Type Department Care Team (Late st Contact Info) Description 11/24/2024 Refill [facility] CHC MED & PEDS [address] [place] [address] Bc Hunter MD 505 [place] [address] Cigarette nicotine dependence without complication Social History Tobacco Use Types Packs/Day Years [...] encounter Miscellaneous Notes * Telephone Encounter - Sindy Ramires LPN - 11/24/2024 4:13 PM EDT Per pharmacy; need max daily to bill insurance. documented in this encounter Plan of Treatment Upcoming Encounters Date Type Department Care Team (Late st Contact Info) Description 01/08/2025 11:15 AM EDT Office Visit [facility] MED & PEDS [address] [place] [address] Bc Hunter MD [address] [place] [address] documented as of this encounter Visit Diagnoses Diagnosis Cigarette nicotine dependence without complication documented in this encounter Additional Health Concerns Assessment Noted Time PHQ-9 Depression Total Score: 0 09/30/19 24 11:02 AM EDT documented as of this encounter Care Teams Award Clerk Relationship Specialty Start Date End Date Bc Hunter MD [address] [place] [address] PCP - General Internal Medicine 01/03/19 documented as of this encounter
--- OUTSIDE RECORDS SUMMARY | 2024-11-28 12:59 | XMS_ITS | Encounter Summary ---
Author Organization [employer] Address [address] [facility] 7 [place] [address] Care Team Providers Care Pit Furnace Melter Name Role Phone Bc Hunter MD Primary Care Prov ider Reason for Visit * Reason Comments Med Refill Encounter Details Date Type Department Care Team ([facility] st Contact Info) Description 05/18/2023 Refill [facility] MED & PEDS [address] [place] [address] Bc Hunter MD [address] [place] [address] Social History Tobacco Use Types Packs/Day Years [...] Description 01/08/2025 11:15 AM EDT Office Visit [facility] MED & PEDS [address] [place] [address] Bc Hunter MD [address] [place] [address] documented as of this encounter Visit Diagnoses Not on filedocumented in this encounter Additional Health Concerns Assessment Noted Time PHQ-9 Depression Total Score: 0 07/11/19 23 11:26 AM EDT documented as of this encounter Care Teams Pit Furnace Melter Relationship Specialty Start Date End Date Bc Hunter MD [address] [place] [address] PCP - General Internal Medicine 01/03/19 documented as of this encounter
--- OUTSIDE RECORDS SUMMARY | 2024-11-28 12:59 | XMS_ITS | Encounter Summary ---
Author Organization [employer] Address [address] [facility] 7 [place] [address] Care Team Providers Care Superintendent System Operation Name Role Phone Bc Hunter MD Primary Care Prov ider Reason for Visit * Reason Onset Date Comments Medication Question 11/24/2024 Encounter Details Date Type Department Care Team ([facility] st Contact Info) Description 11/24/2024 Telephone [facility] MEDICINE [address] [place] [address] Bc Hunter MD [address] [place], [place] [phone] Medication Question Social History Tobacco Use Types [...] encounter Miscellaneous Notes * Telephone Encounter - Keren Lloyd LPN - 11/27/2024 11:54 AM EDT Rx generated and faxed to [facility] ----- Message from Zafar Richard MD sent at 11/24/2024 3:39 PM EDT ----- Please request a wheelchair with wheels and seat for Mr. Chris Zaragoza. Dx : Dyspnea on exertion/COPD * Telephone Encounter - Keren Lloyd LPN - 11/27/2024 11:54 AM EDT ----- Message from Zafar Richard MD sent at 11/24/2024 3:39 PM EDT ----- Please request a wheelchair with wheels and seat for Mr. Chris Zaragoza. Dx : Dyspnea on exertion/COPD * Telephone Encounter - Moody Melton - 11/24/2024 4:18 PM EDT Tc from [place] with [facility] calling in regards to medication order stating [facility] is under strict policy and needs medication and labels to match. Ashley provided list as well as order and label instructions. dicyclomine (Bentyl) 20 MG tablet (Order states take at 8 am and 8 pm but the order states before breakfast and evening) loratadine (Claritin) 10 MG tablet (Order states daily in the morning but label states one tab as needed) magnesium oxide (Mag-Ox) 400 (240 Mg) MG tablet (order states twice a day but label states morning and afternoon) levothyroxine (Synthroid, Levoxyl) 25 MCG tablet (order states daily at 8 am but label states everyday at 6 am) atorvastatin (Lipitor) 40 MG tablet (order states one tab at bedtime but label states one tab in the morning) ferrous sulfate 325 (65 Fe) MG tablet (order states take tablet at 5 pm but the label states every morning) If any questions contact [place] at [phone]. documented in this encounter Plan of Treatment Upcoming Encounters Date Type Department Care Team (Late st Contact Info) Description 01/08/2025 11:15 AM EDT Office Visit [facility] MED & PEDS [address] [place] [address] Bc Hunter MD [address] [place] [address] documented as of this encounter Visit Diagnoses Not on filedocumented in this encounter Additional Health Concerns Assessment Noted Time PHQ-9 Depression Total Score: 0 09/30/19 24 11:02 AM EDT documented as of this encounter Care Teams Superintendent System Operation Relationship Specialty Start Date End Date Bc Hunter MD [address] [place] [address] PCP - General Internal Medicine 01/03/19 documented as of this encounter
--- OUTSIDE RECORDS SUMMARY | 2024-11-28 12:59 | XMS_ITS | Encounter Summary ---
Author Organization [employer] Address [address] [place] [address] [place] [address] Care Team Providers Care Assembler Unit Name Role Phone Bc Hunter MD Primary Care Prov ider Reason for Visit * Reason Onset Date Comments Med Refill 09/21/2022 Encounter Details Date Type Department Care Team ([facility] st Contact Info) Description 09/21/2022 Telephone [facility] MED & PEDS [address] [place] [address] Bc Hunter MD [address] [place] [address] Med Refill Social History Tobacco Use Types [...] 09/23/2022 8:28 AM EDT Pt managed by [facility] coumadin clinic. Last INR of 3.1 noted 09/17/22. Will forward request for Rx to covering provider to review. * Telephone Encounter - Ping Nettles - 09/21/2022 10:39 AM EDT Tc from pt requesting med refill on Warfarin 1 mg tablet [facility]/pharmacy #[id number] - [place], [place] - [address] [facility] Please sent to documented in this encounter Plan of Treatment Upcoming Encounters Date Type Department Care Team (Late st Contact Info) Description 01/08/2025 11:15 AM EDT Office Visit [facility] MED & PEDS [address] [place] [address] Bc Hunter MD [address] [place] [address] documented as of this encounter Visit Diagnoses Diagnosis History of Coumadin therapy- Primary S/P aortic valve replacement Heart valve replaced by other means documented in this encounter Additional Health Concerns Assessment Noted Time PHQ-9 Depression Total Score: 0 07/11/19 23 11:26 AM EDT documented as of this encounter Care Teams Assembler Unit Relationship Specialty Start Date End Date Bc Hunter MD [address] [place] [address] PCP - General Internal Medicine 01/03/19 documented as of this encounter
--- OUTSIDE RECORDS SUMMARY | 2024-11-28 12:59 | XMS_ITS | Encounter Summary ---
Author Organization [employer] Address [address] [facility] 7t [place] [address] Care Team Providers Care Store Leader Name Role Phone Bc Hunter MD Primary Care Prov ider Encounter Details Date Type Department Care Team ([facility] st Contact Info) Description 11/28/2024 Orders Only GENERIC EXTERNAL DATA DEPARTMENT Provider, [...] Description 01/08/2025 11:15 AM EDT Office Visit [facility] MED & PEDS [address] [place] [address] Bc Hunter MD [address] [place] [address] documented as of this encounter Procedures Procedure Name Priority Date/Time Associated Diagnosis Comments PROTHROMBIN TIME WHOLE BLD POC Routine 11/28/2024 10:55 AM EDT ~PT, ~INR - ANTI COAG CLINIC Routine 11/28/2024 10:55 AM EDT documented in this encounter Results * (ABNORMAL) PROTHROMBIN TIME WHOLE BLD POC (11/28/2024 10:55 AM EDT) Protime 29.6(H) 11.1 - 13.5 sec [facility] 11/28/2024 10:5 5 AM EDT 11/28/2024 10:57 AM EDT us Generic External Data Provider LAB BLOOD ORDERAB LES Final Result [facility] [address] [place] [address] [phone] * (ABNORMAL) ~PT, ~INR - ANTI COAG CLINIC (11/28/2024 10:55 AM EDT) Prothrombin Time INR 2.5(H) 0.9 - 1.1 [facility] Comment:METER #: [id number] TERNATIONAL NORMALIZED RATIO (INR) REFERENCE RANGES Reference RangeFor patients not on anticoagulant therapy: 0.9 - 1.1INR ranges for oral anticoagulanttherapy:For prevention and treatment of venous thrombosis and pulmonary embolism: 2.0 - 3.0For acute myocardial infarction with aspirin therapy: 2.0 - 3.0For acute myocardial infarction without aspirin therapy: 3.0 - 4.0For patients with mechanical prosthetic heart valves: 2.5 - 3.5 11/28/2024 10:5 5 AM EDT 11/28/2024 10:57 AM EDT us Generic External Data Provider LAB BLOOD ORDERAB LES Final Result [facility] [address] [place] [phone] documented in this encounter Visit Diagnoses Not on filedocumented in this encounter Additional Health Concerns Assessment Noted Time PHQ-9 Depression Total Score: 0 09/30/19 24 11:02 AM EDT documented as of this encounter Care Teams Store Leader Relationship Specialty Start Date End Date Bc Hunter MD [address] [place] [address] PCP - General Internal Medicine 01/03/19 documented as of this encounter
--- OUTSIDE RECORDS SUMMARY | 2024-11-28 12:59 | XMS_ITS | Clinical Summary ---
Author Organization [employer] Address [address] [facility] 7t [place] [address] Care Team Providers Care Instrumentation And Control Technician Name Role Phone Bc Hunter MD Primary Care Prov ider Allergies No known active allergies Medications tamsulosin (Flomax) 0.4 MG 24 hr capsule TAKE 1 CAPSULE BY MOUTH EVERY DAY IN THE MORNING 90 capsule 023 Active benztropine (Cogentin) 1 MG tablet Take [...] THE MORNING 90 tablet 3 024 Active Acetaminophen Extra Strength 500 MG tablet [...] THE EVENING 180 tablet 1 025 Active Trelegy Ellipta 100-62.5-25 MCG/ACT aerosol powder Inhale 1 puff in the morning. 60 each 3 Active Multiple Vitamin (Daily-Stanley Multivitamin) tablet Take 1 tablet by mouth in the morning. TAKE 1 TABLET BY MOUTH EVERY DAY WITH FOOD 90 tablet 3 Active warfarin (Coumadin) 2 MG tabletIndications :S/P aortic valve replacement TAKE 1-2 TABLETS EVERY EVENING DIRECTED BY COUMADIN CLINIC 180 tablet 1 Active Ventolin HFA 108 (90 Base) MCG/ACT inhaler INHALE 2 PUFFS EVERY 4 HOURS NEEDED 18 g 3 Active azithromycin (Zithromax) 250 MG tabletIndications :COPD exacerbation (CMS/HCC) Take 1 tablet (250 mg) by mouth Once per day for 5 days. 500 mg day 1, 250 mg day 2 through 5 6 tablet 025 2024 Active albuterol 108 (90 Base) MCG/ACT inhalerIndication s:COPD exacerbation (CMS/HCC) Inhale 2 puffs every 6 (six) hours if needed for wheezing. 2 puffs every 6 hours for the next 2 days ( 11/24/2024 and 11/25/2024) 18 g 1 025 2025 Active guaiFENesin (Mucinex) 600 MG 12 hr tabletIndications :COPD exacerbation (CMS/HCC) Take 2 tablets (1,200 mg) by mouth 2 times daily. Do not crush, chew, or split. 10 tablet 11 025 2025 Active magnesium oxide (Mag-Ox) 400 (240 Mg) MG tabletIndications :Mixed hyperlipidemia TAKE 1 TABLET 2 times a day (8 AM and 8 PM) 180 tablet 1 09/05/2 025 Active loratadine (Claritin) 10 MG tabletIndications :Congestion of nasal sinus TAKE 1 TABLET (10 MG) BY MOUTH DAILY IN THE MORNING 90 tablet 2 Active levothyroxine (Synthroid, Levoxyl) 25 MCG tabletIndications :Acquired hypothyroidism Take 1 tablet (25 mcg) by mouth before breakfast. 90 tablet 3 Active dicyclomine (Bentyl) 20 MG tabletIndications :Irritable bowel syndrome with diarrhea TAKE 1 TABLET BY MOUTH BEFORE BREAKFAST AND BEFORE EVENING MEAL. 180 tablet 1 Active atorvastatin (Lipitor) 40 MG tabletIndications :Mixed hyperlipidemia 1 tab at 8 PM 90 tablet 1 Active ferrous sulfate 325 (65 Fe) MG tabletIndications :Iron deficiency anemia due to chronic blood loss 1 tab at 5 PM daily 90 tablet 3 025 Active nicotine polacrilex (Nicorette) 4 MG gumIndications:Thao emery nicotine dependence without complication CHEW 1 PIECE OF GUM EVERY 2 HOURS NEEDED FOR SMOKING CESSATION 100 each Active albuterol (ProAir HFA) 108 (90 Base) MCG/ACT inhaler inhale 2 puff by inhalation route every 4 hours as needed 18 g 3 024 2024 Discontinued levothyroxine (Synthroid, Levoxyl) 25 MCG tablet TAKE 1 TABLET BY MOUTH EVERY DAY AT 6 AM 90 tablet 3 024 2024 Discontinued(R eorder (will not trigger notification to Pharmacy)) albuterol 108 (90 Base) MCG/ACT inhaler Inhale 2 puffs every 4 (four) hours if needed for wheezing. 18 g 1 024 2024 Discontinued(T herapy completed) ferrous sulfate 325 (65 Fe) MG tablet TAKE 1 TABLET BY MOUTH EVERY MORNING 90 tablet 3 025 2024 Discontinued(R eorder (will not trigger notification to Pharmacy)) dicyclomine (Bentyl) 20 MG tabletIndications :Irritable bowel syndrome with diarrhea TAKE 1 TABLET BY MOUTH BEFORE BREAKFAST AND BEFORE EVENING MEAL. 180 tablet 1 025 2024 Discontinued(R eorder (will [...] eorder (will not trigger notification to Pharmacy)) magnesium oxide (Mag-Ox) 400 (240 Mg) MG tabletIndications :Mixed hyperlipidemia TAKE 1 TABLET BY MOUTH Morning and afternoon 180 tablet 1 025 2024 Discontinued(R eorder (will not trigger notification to Pharmacy)) atorvastatin (Lipitor) 40 MG tabletIndications :Mixed hyperlipidemia Take 1 tablet (40 mg) by mouth in the morning. TAKE 1 TABLET BY MOUTH EVERY DAY IN THE EVENING 90 tablet 1 025 2024 Discontinued(R eorder (will not trigger notification to Pharmacy)) loratadine (Claritin) 10 MG tabletIndications :Congestion of nasal sinus Take 1 tablet (10 mg) by mouth Once per day. TAKE 1 TABLET (10 MG) BY MOUTH DAILY IN THE MORNING 90 tablet 2 025 2024 Discontinued(R eorder (will not trigger notification to Pharmacy)) ferrous sulfate 325 (65 Fe) MG tabletIndications :Iron deficiency anemia due to chronic blood loss Take 1 tablet (325 mg) by mouth in the morning. 90 tablet 3 025 2024 Discontinued(R eorder (will not trigger notification to Pharmacy)) nicotine polacrilex (Nicorette) 4 MG gumIndications:Thao emery nicotine dependence without complication Chew 1 each (4 mg) if needed for smoking cessation. 100 each 025 2024 Discontinued(R eorder (will not trigger notification to Pharmacy)) Active Problems Problem Noted Date Diagnosed Date Psychoactive substance abuse 10/02/2024 Cigarette nicotine dependence without complicati on 06/19/2024 Nodule of left lung 04/26/2024 Assessment & Plan (10/02/2024 1:15 PM EDT): Patient does not want to undergo biopsy, will follow up pneumology reccomendations Assessment & Plan (04/26/2024 11:54 AM EST): Will order a follow up LDCT scan, pet caretaker was told to contact pulmonology office Seborrheic dermatitis of scalp 01/26/2023 Assessment & Plan (07/20/2023 8:52 PM EDT): [facility] Refill of topical [...] valve replacement 04/28/2022 Overview (07/20/2023): Followed by [facility] Coumadin Clinic Assessment & Plan (07/20/2023 8:46 PM EDT): Cardiology consult scheduled 07/20/23 No reported hx of bleeding, no reported chest pain/shortness of breath Discussed with PCP and [facility] Coumadin Clinic (Lori FLETCHER). Plan to bridge pt from Eliquis to Coumadin. May DC Eliquis once Coumadin therapeutic Coumadin dosinmg on Wednesday and Wednesday 4mg all other days of the week Plan: [facility] Coagulation clinic to reach out [...] Encounters Date Type Department Care Team Description 11/28/2024 Orders Only GENERIC EXTERNAL DATA DEPARTMENT Provider, Generic External Data 11/24/2024 2:30 PM EDT Office Visit [facility] MED & PEDS [address] [place] [address] Zafar Richard MD COPD exacerbation ([facility]) (Primary Dx); Cigarette nicotine dependence without complication; Mixed hyperlipidemia; Congestion of nasal sinus; Acquired hypothyroidism; Irritable bowel syndrome with diarrhea; Iron deficiency anemia due to chronic blood loss 11/24/2024 Telephone [facility] MEDICINE [address] [place] [phone] Bc Hunter MD Medication Question 11/24/2024 Refill [facility] [address] [place] [address] Bc Hunter MD Cigarette nicotine dependence without complication 11/24/2024 Travel 11/24/2024 Orders Only GENERIC EXTERNAL DATA DEPARTMENT Provider, Generic External Data 11/23/2024 Telephone [facility] PEDIATRICS [address] [place] [phone] Bc Hunter MD CRITICAL LAB 11/23/2024 Orders Only GENERIC EXTERNAL DATA DEPARTMENT Provider, Generic External Data 11/23/2024 Telephone [facility] [address] [place] [address] Bc Hunter MD chart prep 11/22/2024 Telephone [facility] MEDICINE [address] [place] [address] Bc Hunter MD Nurse Triage 11/18/2024 Refill [facility] [address] [place] [address] Bc Hunter MD Mixed hyperlipidemia 11/15/2024 Telephone [facility] [address] [place] [address] Bc Hunter MD Call Back Request 11/06/2024 Orders Only GENERIC EXTERNAL DATA DEPARTMENT Provider, Generic External Data 10/30/2024 Telephone [facility] [address] [place] [address] Bc Hunter MD Lab Orders 10/29/2024 Refill [facility] [address] [place] [address] Bc Hunter MD 10/23/2024 Orders Only GENERIC EXTERNAL DATA DEPARTMENT Provider, Generic External Data 10/17/2024 Refill [facility] [address] [place] [address] Oralia Mazariegos FNP S/P aortic valve replacement 10/16/2024 Orders Only GENERIC EXTERNAL DATA DEPARTMENT Provider, Generic External Data 10/09/2024 Orders Only GENERIC EXTERNAL DATA DEPARTMENT Provider, Generic External Data 10/03/2024 Orders Only [facility] [address] [place] [address] Bc Hunter MD Mixed hyperlipidemia 10/02/2024 11:15 AM EDT Office Visit [facility] [address] [place] [address] Bc Hnuter MD Psychoactive substance abuse (CMS/HCC) (Primary Dx); Dietary counseling; Exercise counseling; Other schizophrenia (CMS/[facility]); Stage 3a chronic kidney disease ([facility]); Hyperlipemia, mixed; Acquired hypothyroidism; Nodule of left lung 10/02/2024 Telephone [facility] [address] [place] [address] Bc Hunter MD 10/02/2024 Travel 10/02/2024 Orders Only GENERIC EXTERNAL DATA DEPARTMENT Provider, Generic External Data 09/26/2024 Orders Only [facility] External Provider, [facility] 09/25/2024 Patient Outreach [facility] MEDICINE [address] [place] [address] Bc Hunter MD Pre-visit Planning (SDOH screening unable to complete. ) 09/25/2024 Orders Only GENERIC EXTERNAL DATA DEPARTMENT Provider, Generic External Data 09/16/2024 Refill [facility] MEDICINE [address] [place] [address] Oralia Mazariegos, LOCOMOTIVE DRIVER Mixed hyperlipidemia 09/14/2024 Telephone [facility] [address] [place] [address] Bc Hunter MD 09/11/2024 Orders Only GENERIC EXTERNAL DATA DEPARTMENT Provider, Generic External Data 08/29/2024 Telephone [facility] MEDICINE [address] [place] [address] Bc Hunter MD Medication Question 08/29/2024 Refill [facility] MEDICINE [address] [place] [phone] Bc Hunter MD 08/28/2024 Orders Only GENERIC [...] Pulse 93 11/24/2024 2:43 PM EDT Temperature 36 C (96.8 F) 10/02/2024 11:30 AM EDT Respiratory Rate 19 11/24/2024 2:43 PM EDT Oxygen Saturation 99% 11/24/2024 2:43 PM EDT Inhaled Oxygen Concentration - - Weight 78 kg (172 lb) 11/24/2024 2:43 PM EDT Height 177.8 cm (5' 10 ) 11/24/2024 2:43 PM EDT Body Mass Index 24.68 11/24/2024 2:43 PM EDT Plan of Treatment Upcoming Encounters Date Type Department Care Team (Late st Contact Info) Description 01/08/2025 11:15 AM EDT Office Visit [facility] MED [facility] PEDS [address] [place] [address] Bc Hunter MD [address] [place] [address] Health Maintenance Due Date Last Done Comments [...] Alcohol/Substance Use Screening 04/26/2025 04/26/2024 Tobacco Screening 11/24/2025 11/24/2024 Lipid Panel 05/06/2028 05/06/2023, 07/10/2022 DTaP/Tdap/Td Vaccines [...] COAG CLINIC Routine 11/28/2024 10:55 AM EDT PROTHROMBIN TIME WHOLE BLD POC Routine 11/24/2024 [...] WHOLE BLD POC (11/28/2024 10:55 AM EDT) Only the most recent of11 resultswithin the time period is included. Protime 29.6(H) 11.1 - 13.5 sec [facility] 11/28/2024 10:5 5 AM EDT 11/28/2024 10:57 AM EDT Generic External Data Provider LAB BLOOD ORDERAB LES Final Result [facility] [address] [place] [phone] * (ABNORMAL) ~PT, ~INR - ANTI COAG CLINIC (11/28/2024 10:55 AM EDT) Only the most recent of11 resultswithin the time period is included. Prothrombin Time INR 2.5(H) 0.9 - 1.1 [facility] Comment:METER #: [id number] TERNATIONAL NORMALIZED RATIO (INR) REFERENCE RANGES Reference [...] ORDERAB LES Final Result Performing Organization Address City/[facility]/ZIP Co de Phone Number [facility] [address] [place] [phone] * (ABNORMAL) Prothrombin Time-INR (11/23/2024 11:10 AM EDT) Prothrombin Time 81.2(H) 10.9 - 12.4 SEC [facility] INTERNATIONAL NORM RATIO 7.1(HH) 0.9 - 1.1 [facility] Comment:RESULTS OF INR STEPHENS D TO [...] LAB BLOOD ORDERAB LES Final Result [facility] [address] [place] [phone] * T-SPOT??.TB (10/30/2024 1:08 PM EDT) T Spot TB Negative Negative [facility] Comment:A negative test resu lt does [...] as aquantitative test. TS PANEL A 0 [facility] TS PANEL B 1 [facility] Negative Control Passed [facility] Positive Control Passed [facility] Comment:For additional infor vasu, please refer tohttp://education.Money360.Molplex/faq/LPJ190(This link is being provided for informational/educational purposes only.)THIS TEST WAS PERFORMED AT:[facility] [facility] [id number] [place] [address]UTEGDBLPITER CARUSO MD,PHD 10/30/2024 1:08 PM EDT 10/30/2024 2:22 PM EDT us Bc Rascon MD LAB BLOOD ORDERABL ES Final Result [facility] [address] [place] [phone] * CT Chest w/o Contrast (09/27/2024 1:47 PM EDT) Anatomical Region Laterality Modality Body, Chest Computed Tomogra phy 09/27/2024 1:47 PM EDT Narrative 09/27/2024 1:47 PM EDT [place] [address] [address] Scan Report Signed with Addenda Patient: Chris Zaragoza MR#: [id number] : 1950 Acct:[id number] Age/Sex: 74 / M ADM Date: 09/26/24 Loc: HO.CT Attending Dr: Lenny Irving MD Ordering Physician: Lenny Irving MD Date of Service: 09/26/24 Procedure(s): CT chest wo IV con Accession Number(s): [id number] cc: Bc Hunter MD; Lenny Irving MD Report Number: [id number]: Total DLP = 198.00 mGy-cm ADDENDUM This [...] Exam: CT chest without IV contrast Comparison: CT/HI/SR - CT ANGIO CHEST PE PROTOCOL - 06/14/24 13:[address]/HI/SR - CT CHEST WO IV CON - [...] in OV> 09/27/241346 DD/ 46 TD/TT: 09/27/241346 Inseamer: Procedure Note Donotuseinterpreter, Image - 09/27/[address] [place] [address] [address] Scan Report Signed with Addenda Patient: Cary ZaragozaR#: [id number] : 1950cct:[id number] Age/Sex: 74 / MADM Date: 09/26/24 Loc: HO.CT Attending Dr: Lenny Irving MD Ordering Physician: Lenny Irving MD Date of Service: 09/26/24 Procedure(s): CT chest wo IV con Accession Number(s): [id number] cc: Bc Hunter MD; Lenny Irving MD Report Number: [id number]: Total DLP = 198.00 mGy-cm ADDENDUM This [...] Exam: CT chest without IV contrast Comparison: CT/HI/SR - CT ANGIO CHEST PE PROTOCOL - 06/14/24 13:[address]/HI/SR - CT CHEST WO IV CON - [...] 09/27/24 1347 DD/ 1347 TD/TT: 09/27/24 1347 Inseamer: [facility] External Provider IMG CT PROCEDURES Edited Result - Final * Lipid Panel, Standard (05/06/2023 11:48 AM EST) Triglycerides 61 <150 mg/dL [facility] Comment:Desirable Triglyceri de: less than 150 mg/dLBorderline High Triglyceride 150-199 mg/dLHigh Triglyceride: 200-499 mg/dLVery High Triglyceride: greater than or equal to 5OO mg/dL Cholesterol 166 <200 mg/dL [facility] Comment:Desirable Cholestero l: less than 200 mg/dLBorderline High Cholesterol: 200-239 mg/dLHigh Cholesterol: greater than 239 mg/dL LDL Cholesterol Calculated 94 <100 mg/dL [facility] Comment:Desirable LDL: less than 100 mg/dLNear Optimal/Above Optimal LDL: 110- 129 mg/dLBorderline High LDL: 130-159 mg/dLHigh LDL: 160-189 mg/dLVery High LDL: greater than or equal to 190 mg/dL HDL Cholesterol 60 >40 mg/dL [facility] Comment:Desirable HDL: great er than 40 mg/dL Note: This HDL assay may give artificially low results in patients with liver disease. Blood Venous blood specimen / Unknown 05/06/2023 11:48 AM EST 05/06/2023 2:09 PM EST us Bc Rascon MD LAB BLOOD ORDERABL ES Final Result [facility] [address] [place] [phone] * Hepatitis C Antibody with Reflex to HCV, RNA, Quantitative, Real-Time PCR (07/10/2022 11:31 AM EDT) Hepatitis C Antibody NON-REACT DEZ NON-REACT DEZ [employer] Index 0.09 <1.00 [employer] Comment: HCV antibody was non-reactive. There is no laboratory evidence of HCV infection. In most cases, no further action is required. However, if recent HCV exposure is suspected, a test for HCV RNA (test code 90090) is suggested. For additional information please refer to http://education.PredictSpring/faq/WBX56t0 (This link is being provided for informational/ educational purposes only.) Blood Venous blood specimen / Unknown 07/10/2022 11:31 AM EDT 07/10/2022 11:32 AM EDT Narrative [facility] - 07/11/2022 5:06 AM EDT FASTING:NO FASTING: NO Bc Rascon MD LAB BLOOD ORDERABL ES Final Result [facility] [address], [place] [address] [employer] [facility] [address] [place] [phone] from Last 3 Months or Most Recently Relevant to Health Maintenance Insurance MEDICARE [facility] Care Teams Instrumentation And Control Technician Relationship Specialty Start Date End Date Bc Hunter MD [address] [place] [phone] PCP - General Internal Medicine 01/03/19
--- OUTSIDE RECORDS SUMMARY | 2024-11-28 12:59 | XMS_ITS | Encounter Summary ---
Author Organization [employer] Address [address] [facility] 7 [place] [address] Care Team Providers Care Merchandise Flow Manager Name Role Phone Bc Hunter MD Primary Care Prov ider Reason for Visit * Reason Onset Date Comments Call Back Request 07/05/2024 Encounter Details Date Type Department Care Team ([facility] st Contact Info) Description 07/05/2024 Telephone [facility] MEDICINE [address] [place] [address] Bc Hunter MD [address] [place], [place] [phone] Call Back Request Social History Tobacco Use [...] 12:18 PM EDT Tc from Kimberly with [facility] requesting a call back regarding the pt Lovenox. Contact Kimberly at [phone] documented in this encounter Plan of Treatment Upcoming Encounters Date Type Department Care Team (Late st Contact Info) Description 01/08/2025 11:15 AM EDT Office Visit [facility] MED & PEDS [address] [place] [address] Bc Hunter MD [address] [place] [address] documented as of this encounter Visit Diagnoses Not on filedocumented in this encounter Additional Health Concerns Assessment Noted Time PHQ-9 Depression Total Score: 0 09/30/19 24 11:02 AM EDT documented as of this encounter Care Teams Merchandise Flow Manager Relationship Specialty Start Date End Date Bc Hunter MD [address] [place] [address] PCP - General Internal Medicine 01/03/19 documented as of this encounter
--- OUTSIDE RECORDS SUMMARY | 2024-11-28 12:59 | XMS_ITS | Encounter Summary ---
Author Organization [employer] Address [address] [facility] 7 [place] [address] Care Team Providers Care Kiln Head House Operator Name Role Phone Bc Hunter MD Primary Care Prov ider Reason for Visit * Reason Onset Date Comments Referral 12/06/2023 Encounter Details Date Type Department Care Team ([facility] st Contact Info) Description 12/06/2023 Telephone [facility] MEDICINE [address] [place] [address] Bc uHnter MD [address] [place], [place] [phone] Referral Social History Tobacco Use Types Packs/Day [...] 12/06/2023 9:45 AM EDT Tc from patients [facility] calling to report the provider for podiatry has and would need to be referred to another location would like to be seen by Sarkis in the [place] location ifpossible documented in this encounter Plan of Treatment Upcoming Encounters Date Type Department Care Team (Late st Contact Info) Description 01/08/2025 11:15 AM EDT Office Visit [facility] MED & PEDS [address] [place] [address] Bc Hunter MD [address] [place] [address] documented as of this encounter Visit Diagnoses Not on filedocumented in this encounter Additional Health Concerns Assessment Noted Time PHQ-9 Depression Total Score: 0 09/30/19 24 11:02 AM EDT documented as of this encounter Care Teams Kiln Head House Operator Relationship Specialty Start Date End Date Bc Hunter MD [address] [place] [address] PCP - General Internal Medicine 01/03/19 documented as of this encounter
--- OUTSIDE RECORDS SUMMARY | 2024-11-28 12:59 | XMS_ITS | Encounter Summary ---
Author Organization [employer] Address [address] [facility] 7 [place] [address] Care Team Providers Care Branch Operations Manager Name Role Phone Bc Hunter MD Primary Care Prov ider Reason for Visit * Reason Onset Date Comments CRITICAL LAB 11/23/2024 Encounter Details Date Type Department Care Team ([facility] st Contact Info) Description 11/23/2024 Telephone [facility] PEDIATRICS [address] [place] [address] Bc Hunter MD [address] [place], [place] [phone] CRITICAL LAB Social History Tobacco Use Types [...] 11/23/2024 11:48 AM EDT TC incoming from [facility] anticoagulation clinic with critical lab. INR of 7.1 Holding dose today. Advised to eat a lot of broccoli. redraw tomorrow. Michelle FLETCHER aware. Will route to PCP and team to advise. documented in this encounter Plan of Treatment Upcoming Encounters Date Type Department Care Team (Late st Contact Info) Description 01/08/2025 11:15 AM EDT Office Visit [facility] MED & PEDS [address] [place] [address] Bc Hunter MD [address] [place] [address] documented as of this encounter Visit Diagnoses Not on filedocumented in this encounter Additional Health Concerns Assessment Noted Time PHQ-9 Depression Total Score: 0 09/30/19 24 11:02 AM EDT documented as of this encounter Care Teams Branch Operations Manager Relationship Specialty Start Date End Date Bc Hunter MD [address] [place] [address] PCP - General Internal Medicine 01/03/19 documented as of this encounter
--- OUTSIDE RECORDS SUMMARY | 2024-11-28 12:59 | XMS_ITS | Encounter Summary ---
Author Organization [employer] Address [address] [facility] 7t [place] [address] Care Team Providers Care Direct Support Specialist Name Role Phone Bc Hunter MD Primary Care Prov ider Encounter Details Date Type Department Care Team (Latest Contact Info) Description 11/24/2024 Travel Social History Tobacco Use Types Packs/Day [...] Description 01/08/2025 11:15 AM EDT Office Visit [facility] MED & PEDS [address] [place] [address] Bc Hunter MD [address] [place] [address] documented as of this encounter Visit Diagnoses Not on filedocumented in this encounter Additional Health Concerns Assessment Noted Time PHQ-9 Depression Total Score: 0 09/30/19 24 11:02 AM EDT documented as of this encounter Care Teams Direct Support Specialist Relationship Specialty Start Date End Date Bc Hunter MD [address] [place] [address] PCP - General Internal Medicine 01/03/19 documented as of this encounter
--- OUTSIDE RECORDS SUMMARY | 2024-11-28 12:59 | XMS_ITS | Encounter Summary ---
Author Organization [employer] Address [address] [facility] 7 [place] [address] Care Team Providers Care Switchboard Manager Name Role Phone Bc Hunter MD Primary Care Prov ider Reason for Visit * Reason Onset Date Comments Nurse Triage 2024 Encounter Details Date Type Department Care Team ([facility] st Contact Info) Description 2024 Telephone [facility] [address] [place] [address] Bc Hunter MD [address] [place], [place] [phone] Nurse Triage Social History Tobacco Use Types [...] called pt to triage, spoke to group therapy counselor, ANTONIO. pt was seen on 06/14 by [facility] pulmonology on 06/14 and due to some distress was sent to the ER for evaluation. pt diagnosed with Pneumonia and put onantibiotics x5 days. worker states pt eating and drinking, not having any fevers or severe/sustained sob, or other associated symptoms. 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 PROFESSIONAL to report ED visit on : Date: 06/14 Hospital: [facility] Seen for: pneumonia Symptomatic Yes *if yes message should go to Triage Patient advised will forward to team nurse for follow up [phone] pt documented in this encounter Plan of Treatment Upcoming Encounters Date Type Department Care Team (Late st Contact Info) Description 01/08/2025 11:15 AM EDT Office Visit [facility] MED & PEDS [address] [place] [address] Bc Hunter MD [address] [place] [address] documented as of this encounter Visit Diagnoses Not on filedocumented in this encounter Additional Health Concerns Assessment Noted Time PHQ-9 Depression Total Score: 0 09/30/19 24 11:02 AM EDT documented as of this encounter Care Teams Switchboard Manager Relationship Specialty Start Date End Date Bc Hunter MD [address] [place] [address] PCP - General Internal Medicine 01/03/19 documented as of this encounter
--- OUTSIDE RECORDS SUMMARY | 2024-11-28 12:59 | XMS_ITS | Encounter Summary ---
Author Organization [employer] Address [address] [facility] 7 [place] [address] Care Team Providers Care Marble Chip Terrazzo Worker Name Role Phone Bc Hunter MD Primary Care Prov ider Reason for Visit * Reason Onset Date Comments Med Refill 05/15/2022 Encounter Details Date Type Department Care Team ([facility] st Contact Info) Description 05/15/2022 Telephone [facility] CH[facility] MED & PEDS [address] [place] [address] Bc Hunter MD [address] [place] [address] Med Refill Social History Tobacco Use Types [...] 11:54 AM EST Tc from Amy with [facility] requesting some kinds of specific directions for warfarin (Coumadin) 2 MG tablet If any question please contact amy at [phone] documented in this encounter Plan of Treatment Upcoming Encounters Date Type Department Care Team (Late st Contact Info) Description 01/08/2025 11:15 AM EDT Office Visit [facility] MED & PEDS [address] [place] [address] Bc Hunter MD [address] [place] [address] documented as of this encounter Visit Diagnoses Not on filedocumented in this encounter Care Teams Marble Chip Terrazzo Worker Relationship Specialty Start Date End Date Bc Hunter MD [address] [place] [address] PCP - General Internal Medicine 01/03/19 documented as of this encounter
--- OUTSIDE RECORDS SUMMARY | 2024-11-28 12:59 | XMS_ITS | Encounter Summary ---
Author Organization [employer] Address [address] [facility] 7 [place] [address] Care Team Providers Care Mold Yard Crane Operator Name Role Phone Bc Hunter MD Primary Care Prov ider Reason for Visit * Reason Onset Date Comments Medication Question 08/29/2024 Encounter Details Date Type Department Care Team ([facility] st Contact Info) Description 08/29/2024 Telephone [facility] [address] [place] [address] Bc Hunter MD [address] [place], [place] [phone] Medication Question Social History Tobacco Use Types [...] Miscellaneous Notes * Telephone Encounter - Rubén Benoitarez - 08/29/2024 1:29 PM EDT Tc from [place] staff with [facility] reports Doctors orders and script pharmacy has do not match .Please contact [facility] for medication reconciliation. documented in this encounter Plan of Treatment Upcoming Encounters Date Type Department Care Team (Late st Contact Info) Description 01/08/2025 11:15 AM EDT Office Visit [facility] MED & PEDS [address] [place] [address] Bc Hunter MD [address] [place] [address] documented as of this encounter Visit Diagnoses Not on filedocumented in this encounter Additional Health Concerns Assessment Noted Time PHQ-9 Depression Total Score: 0 09/30/19 24 11:02 AM EDT documented as of this encounter Care Teams Mold Yard Crane Operator Relationship Specialty Start Date End Date Bc Hunter MD [address] [place] [address] PCP - General Internal Medicine 01/03/19 documented as of this encounter
== END 2024-11-28 11:15 | disposition home or self-care (01) ==
LOC: HO.ACS 10:46
PROVIDERS: PCP Internal Medicine; Visit Provider Internal Medicine Medical Oncology
DX: Z79.01 Long term (current) use of anticoagulants (principal)

== ENCOUNTER → 2024-11-28 10:46 | Outpatient (BNVA) | payer MEDICARE, MEDICAID, SELFPAY | PROVIDERS: PCP Internal Medicine; Visit Provider Internal Medicine Medical Oncology | DX: Z51.81 Encounter for therapeutic drug level monitoring (principal); Z79.01 Long term (current) use of anticoagulants | CPT/HCPCS: 85610; 99211 ==

== ENCOUNTER 2024-12-05 11:06 | Outpatient (AMB) | payer MEDICARE, MEDICAID, SELFPAY ==
[2024-12-05 11:12] LABS: Prothrombin Time Whole Bld POC 27.1 sec (11.1-13.5); ~PT, ~INR - Anti Coag Clinic 2.3 (0.9-1.1)
--- NOTE | 2024-12-05 11:15 | MHC.OFFVISCO ---
Intake Intake Visit Reasons: Anticoagulation Allergies No Known Allergies Allergy (Mild, Verified 12/05/24 11:07) NOT APPLICABLE Medication List - Last Reconciled 12/05/24 by Nivia Beaver RN albuterol sulfate 90 mcg/actuation (Ventolin HFA) 1 puff inhalation RQ4H PRN amantadine HCl 100 mg PO BID atorvastatin 40 mg PO BEDTIME azithromycin mg PO carbamide peroxide (Debrox) 5 DROPS EACH EAR EVERY 2 WEEKS cholecalciferol (vitamin D3) (Vitamin D3) 25 mcg PO QAM dicyclomine 20 mg PO BID divalproex ER 1,000 mg PO BEDTIME ferrous sulfate 324 mg PO DAILY ferrous sulfate 325 mg PO QAM [FLUCINOLONE TOPICAL DAILY ] uqijggolppt-gjxdssftq-bojfbvth 200-62.5-25 mcg (Trelegy Ellipta) 1 inh inhalation DAILY guaifenesin ER (Mucus Relief ER) 1,200 mg PO BID levothyroxine 25 mcg PO DAILY@0600 loratadine 10 mg PO DAILY magnesium oxide 400 mg PO BIDPC multivitamin with folic acid 400 mcg (Daily-Stanley (with folic acid)) 1 tab PO DAILY pantoprazole 40 mg PO BID revefenacin (Yupelri) 175 mcg (3 mL) inhalation DAILY 30 days risperidone (Risperdal) 4 mg PO BID tamsulosin 0.4 mg PO BEDTIME valproic acid 1000mg orally daily; warfarin See Protocol 2 mg orally 4MG DAILY OR DIRECTED; 4MG DAILY OR DIRECTED Nursing Note INR: 2.3 in therapeutic range of 2-3 Medications and supplements reviewed No changes in health, diet, medications, or supplements, Denies any signs and symptoms of bleeding or bruising or clotting. Bleeding, bruising, clotting discussed Nutritional guidance given Dose: 4mg X 4 days and 2mg X 3 days (//Wed) F/U INR: 4 weeks Patient verbalizes understanding of instructions given Anti-Coag Initial Assessment Social Hx Patient Tobacco Use Status: Refuse Tobacco use screen alcohol intake: never Coding Level of Care Code Est Patient Level 1 Diagnoses Current use of anticoagulant therapy Z79.01 Assessment & Plan Assessment & Plan (1) Current use of anticoagulant therapy: Code(s): Z79.01 - meterman (current) use of anticoagulants Category: Medical
--- OUTSIDE RECORDS SUMMARY | 2024-12-05 15:09 | XMS_ITS | Encounter Summary ---
Author Organization [employer] Address [address] [facility] 7 [place] [address] Care Team Providers Care Salesperson New Cars Name Role Phone Bc Hunter MD Primary Care Prov ider Encounter Details Date Type Department Care Team (Late st Contact Info) Description 09/20/2023 Orders Only [facility] MED & PEDS [address] [place], [place] [phone] Bc Hunter MD [address] [place] [address] Social History Tobacco Use Types Packs/Day Years [...] [facility] [address] [place] [address] Bc Hunter MD [address] [place] [address] documented as of this encounter Visit Diagnoses Not on filedocumented in this encounter Additional Health Concerns Assessment Noted Time PHQ-9 Depression Total Score: 0 07/11/19 23 11:26 AM EDT documented as of this encounter Care Teams Salesperson New Cars Relationship Specialty Start Date End Date Bc Hunter MD [address] [place] [address] PCP - General Internal Medicine 01/03/19 documented as of this encounter
--- OUTSIDE RECORDS SUMMARY | 2024-12-05 15:10 | XMS_ITS | Encounter Summary ---
Author Organization [employer] Address [address] [facility] 7 [place] [address] Care Team Providers Care Lineman Service Or Work Dispatcher Name Role Phone Bc Hunter MD Primary Care Prov ider Reason for Visit * Reason Onset Date Comments Medication Question 08/29/2024 Encounter Details Date Type Department Care Team ([facility] Contact Info) Description 08/29/2024 Telephone [facility] MEDICINE [address] [place] [address] Bc Hunter MD [address] [place], [place] [phone] Medication Question Social History Tobacco Use Types [...] - 08/29/2024 1:29 PM EDT Tc from [place] staff with [facility] reports Doctors orders and script pharmacy has do not match .Please contact [facility] for medication reconciliation. documented in this encounter Plan of Treatment Upcoming Encounters Date Type Department Care Team (Late st Contact Info) Description 01/08/2025 11:15 AM EDT Office Visit [facility] CHC MED & PEDS [address] [place] [address] Bc Hunter MD [address] [place] [address] documented as of this encounter Visit Diagnoses Not on filedocumented in this encounter Additional Health Concerns Assessment Noted Time PHQ-9 Depression Total Score: 0 09/30/19 24 11:02 AM EDT documented as of this encounter Care Teams Lineman Service Or Work Dispatcher Relationship Specialty Start Date End Date Bc Hunter MD [address] [place] [address] PCP - General Internal Medicine 01/03/19 documented as of this encounter
--- OUTSIDE RECORDS SUMMARY | 2024-12-05 15:10 | XMS_ITS | Encounter Summary ---
Author Organization [employer] Address [address] [facility] 7 [place] [address] Care Team Providers Care Dog Day Care Attendant Name Role Phone Bc Hunter MD Primary Care Prov ider Reason for Visit * Reason Onset Date Comments Call Back Request 11/15/2024 Encounter Details Date Type Department Care Team ([facility] Contact Info) Description 11/15/2024 Telephone [facility] MED & PEDS [address] [place] [address] Bc Hunter MD [address] [place] [address] Call Back Request Social History Tobacco Use [...] 12:04 PM EDT TC to Olga with [facility]. Stated needs clarification to have claritin scheduled, have atorvastatin scheduled for HS and have FeSulfate scheduled for PM. Advised will fax over telephone order form and have pcp update order to [facility]. Fax sent to [facility] with confirmation. * Telephone Encounter - Jenn Krishnamurthy - 11/15/2024 11:06 AM EDT Tc from Olga Cage at [facility] requesting a call back to discuss medication labels Contact Olga at [phone] documented in this encounter Plan of Treatment Upcoming Encounters Date Type Department Care Team (Late st Contact Info) Description 01/08/2025 11:15 AM EDT Office Visit [facility] MED & PEDS [address] [place] [address] Bc Hunter MD [address] [place] [address] documented as of this encounter Visit Diagnoses [...] as of this encounter Care Teams Dog Day Care Attendant Relationship Specialty Start Date End Date Bc Hunter MD [address] [place] [id number] PCP - General Internal Medicine 01/03/19 documented as of this encounter
--- OUTSIDE RECORDS SUMMARY | 2024-12-05 15:10 | XMS_ITS | Clinical Summary ---
Author Organization [employer] Address [address] [place] [address] 7t [place] [address] Care Team Providers Care Rip Saw Operator Name Role Phone Bc Hunter [...] by mouth 2 times daily. 020 Active levothyroxine (Synthroid, Levoxyl) 25 MCG tablet [...] or split. 10 tablet 025 2025 Active Trelegy Ellipta 100-62.5-25 MCG/ACT aerosol powder [...] HOURS NEEDED 18 g 3 025 Active albuterol 108 (90 Base) MCG/ACT inhalerIndication [...] AM and 8 PM) 180 tablet 1 Active loratadine (Claritin) 10 MG tabletIndications :Congestion [...] HOURS NEEDED FOR SMOKING CESSATION 100 each 025 Active Murine Ear 6.5 % otic solution ADMINISTER 5 DROPS INTO EACH EAR IF NEEDED FOR EAR PAIN (EVERY OTHER WEEK). 30 mL 025 Active ketoconazole (NIZOral) 2 % shampooIndication s:Seborrheic dermatitis of scalp APPLY TOPICALLY TWICE WEEKLY, USE TO WASH OUT FLUOCINONIDE OIL IN THE MORNING 3 TIMES WEEKLY DIRECTED 120 mL 2 025 Active atorvastatin (Lipitor) 40 MG tabletIndications :Mixed hyperlipidemia TAKE 1 TABLET BY MOUTH EVERY DAY IN THE EVENING 90 tablet 1 025 Active pantoprazole (ProtoNix) 40 MG EC tabletIndications :Gastroesophageal reflux disease without esophagitis TAKE 1 TABLET BY MOUTH TWICE A DAY IN THE MORNING AND IN THE EVENING 180 tablet 1 025 Active ketoconazole (Nizoral) 2 % shampooIndication s:Seborrheic dermatitis of scalp Apply topically 2 (two) times a week. Use to wash out flucinonide oil in the morning 3x/week as directed 100 mL 2 024 2024 Discontinued levothyroxine (Synthroid, Levoxyl) 25 MCG tablet TAKE 1 TABLET BY MOUTH EVERY DAY AT 6 AM 90 tablet 3 024 2024 Discontinued(R eorder (will not trigger notification to Pharmacy)) carbamide peroxide (Debrox) 6.5 % otic solution Administer 5 drops into each ear if needed for ear pain (every other week). 30 mL 024 2024 Discontinued albuterol 108 (90 Base) MCG/ACT inhaler Inhale 2 puffs every 4 (four) hours if needed for wheezing. 18 g 1 024 2024 Discontinued(T herapy completed) ferrous sulfate 325 (65 Fe) MG tablet TAKE 1 TABLET BY MOUTH EVERY MORNING 90 tablet 3 025 2024 Discontinued(R eorder (will not trigger notification to Pharmacy)) pantoprazole (ProtoNix) 40 MG EC tabletIndications :Gastroesophageal reflux disease without esophagitis TAKE 1 TABLET BY MOUTH TWICE A DAY IN THE MORNING AND IN THE EVENING 180 tablet 1 025 2024 Discontinued(R eorder [...] eorder (will not trigger notification to Pharmacy)) azithromycin (Zithromax) 250 MG tabletIndications :COPD exacerbation (CMS/HCC) Take 1 tablet (250 mg) by mouth Once per day for 5 days. 500 mg day 1, 250 mg day 2 through 5 6 tablet 025 2024 nicotine polacrilex (Nicorette) 4 MG gumIndications:Ci garmamadou nicotine dependence without complication Chew 1 each [...] Will order a follow up LDCT scan, drafter electronic was told to contact pulmonology office Seborrheic dermatitis of scalp 01/26/2023 Assessment & Plan (07/20/2023 8:52 PM EDT): Followed by [facility] Derm clinic Refill of topical [...] valve replacement 04/28/2022 Overview (07/20/2023): Followed by [facility] Coumadin Clinic Assessment & Plan (07/20/2023 8:46 PM EDT): Cardiology consult scheduled 07/20/23 No reported hx of bleeding, no reported chest pain/shortness of breath Discussed with PCP and [facility] Coumadin Clinic (Lori FLETCHER). Plan to bridge pt from Eliquis to Coumadin. May DC Eliquis once Coumadin therapeutic Coumadin dosinmg on Wednesday and Wednesday 4mg all other days of the week Plan: [facility] Coagulation clinic to reach out to [facility] to schedule INR check and re-start on [...] Other schizophrenia 09/22/2011 Overview (07/20/2023): Living in Custodial Assessment & Plan (10/02/2024 1:14 PM EDT): [...] Encounters Date Type Department Care Team Description 12/05/2024 Orders Only GENERIC EXTERNAL DATA DEPARTMENT Provider, Generic External Data 11/29/2024 Refill [facility] [address] [place] [address] Bc Hunter MD Seborrheic dermatitis of scalp; Mixed hyperlipidemia; Gastroesophageal reflux disease without esophagitis 11/29/2024 Refill [facility] [address] [place] [address] Zafar Richard MD Gastroesophageal reflux disease without esophagitis 11/29/2024 Refill [facility] [address] [place] [address] Bc Hunter MD Mixed hyperlipidemia 11/28/2024 Orders Only GENERIC EXTERNAL DATA DEPARTMENT Provider, Generic External Data 11/24/2024 2:30 PM EDT Office Visit [facility] [address] [place] [address] Zafar Richard MD COPD exacerbation ([facility]) (Primary Dx); Cigarette nicotine dependence without complication; Mixed hyperlipidemia; Congestion of nasal sinus; Acquired hypothyroidism; Irritable bowel syndrome with diarrhea; Iron deficiency anemia due to chronic blood loss 11/24/2024 Telephone [facility] [address] [place] [phone] Bc Hunter MD Medication Question 11/24/2024 Refill [facility] [address] [place] [address] Bc Hunter MD Cigarette nicotine dependence without complication 11/24/2024 Travel 11/24/2024 Orders Only GENERIC EXTERNAL DATA DEPARTMENT Provider, Generic External Data 11/23/2024 Telephone [facility] [address] [place] [address] Bc Hunter MD CRITICAL LAB 11/23/2024 Orders Only GENERIC EXTERNAL DATA DEPARTMENT Provider, Generic External Data 11/23/2024 Telephone [facility] [address] [place] [address] Bc Hunter MD chart prep 11/22/2024 Telephone [facility] [address] [place] [phone] Bc Hunter MD Nurse Triage 11/18/2024 Refill [facility] [address] [place] [address] Bc uHnter MD Mixed hyperlipidemia 11/15/2024 Telephone [facility] [address] [place] [address] Bc Hunter MD Call Back Request 11/06/2024 Orders Only GENERIC EXTERNAL DATA DEPARTMENT Provider, Generic External Data 10/30/2024 Telephone [facility] [address] [place] [address] Bc Hunter MD Lab Orders 10/29/2024 Refill [facility] [address] [place] [address] Bc Hunter MD 10/23/2024 Orders Only GENERIC EXTERNAL DATA DEPARTMENT Provider, Generic External Data 10/17/2024 Refill [facility] [address] [place] [address] Oralia Mazariegos FNP S/P aortic valve replacement 10/16/2024 Orders Only GENERIC EXTERNAL DATA DEPARTMENT Provider, Generic External Data 10/09/2024 Orders Only GENERIC EXTERNAL DATA DEPARTMENT Provider, Generic External Data 10/03/2024 Orders Only [facility] [address] [place] [address] Bc Hunter MD Mixed hyperlipidemia 10/02/2024 11:15 AM EDT Office Visit [facility] [address] [place] [address] Bc Hunter MD Psychoactive substance abuse (CMS/HCC) (Primary Dx); Dietary counseling; Exercise counseling; Other schizophrenia (CMS/HCC); Stage 3a chronic kidney disease (CMS/HCC); Hyperlipemia, mixed; Acquired hypothyroidism; Nodule of left lung 10/02/2024 Telephone [facility] [address] [place] [address] Bc Hunter MD 10/02/2024 Travel 10/02/2024 Orders Only GENERIC EXTERNAL DATA DEPARTMENT Provider, Generic External Data 09/26/2024 Orders Only [facility] External Provider, [facility] 09/25/2024 Patient Outreach [facility] [address] [place] [address] Bc Hunter MD Pre-visit Planning ([facility] screening unable to complete. ) 09/25/2024 Orders Only GENERIC EXTERNAL DATA DEPARTMENT Provider, Generic External Data 09/16/2024 Refill [facility] [address] [place], [place] [phone] Oralia Mazariegos, MATT Mixed hyperlipidemia 09/14/2024 Telephone [facility] [address] [place], [place] [phone] Bc Hunter MD 09/11/2024 Orders Only GENERIC [...] Description 01/08/2025 11:15 AM EDT Office Visit [facility] [address] [place] [address] Bc Hunter MD [address] [place] [address] Health Maintenance Due Date Last Done Comments [...] Comments PROTHROMBIN TIME WHOLE BLD POC Routine 12/05/2024 11:09 AM EDT ~PT, ~INR - ANTI COAG CLINIC Routine 12/05/2024 11:09 AM EDT PROTHROMBIN TIME WHOLE BLD POC Routine 11/28/2024 [...] COAG CLINIC Routine 09/11/2024 10:31 AM EDT LIPID PANEL, STANDARD Routine 05/06/2023 11:48 AM EST Hyperlipemia, mixed HEPATITIS C AB W/REFL TO HCV RNA, QN, PCR Routine 07/10/2022 11:31 AM EDT S/P aortic valve replacement Pre-op evaluation from Last 3 Months or Most Recently Relevant to Health Maintenance Results * (ABNORMAL) PROTHROMBIN TIME WHOLE BLD POC (12/05/2024 11:09 AM EDT) Only the most recent of11 resultswithin the time period is included. Protime 27.1(H) 11.1 - 13.5 sec [facility] 12/05/2024 11:0 9 AM EDT 12/05/2024 11:12 AM EDT us Generic External Data Provider LAB BLOOD ORDERAB LES Final Result [facility] [address] [place] [phone] * (ABNORMAL) ~PT, ~INR - ANTI COAG CLINIC (12/05/2024 11:09 AM EDT) Only the most recent of11 resultswithin the time period is included. Prothrombin Time INR 2.3(H) 0.9 - 1.1 [facility] Comment:METER #: [id number] TERNATIONAL NORMALIZED RATIO (INR) REFERENCE RANGES Reference RangeFor patients not on anticoagulant therapy: 0.9 - 1.1INR ranges for oral anticoagulanttherapy:For prevention and treatment of venous thrombosis and pulmonary embolism: 2.0 - 3.0For acute myocardial infarction with aspirin therapy: 2.0 - 3.0For acute myocardial infarction without aspirin therapy: 3.0 - 4.0For patients with mechanical prosthetic heart valves: 2.5 - 3.5 12/05/2024 11:0 9 AM EDT 12/05/2024 11:12 AM EDT Generic External Data Provider LAB BLOOD ORDERAB LES Final Result Performing Organization Address City/State/[facility] Co de Phone Number [facility] [address] [place] [address] [phone] * (ABNORMAL) Prothrombin Time-INR (11/23/2024 11:10 AM EDT) Prothrombin Time 81.2(H) 10.9 - 12.4 SEC [facility] INTERNATIONAL NORM RATIO 7.1(HH) 0.9 - 1.1 [facility] Comment:RESULTS OF INR STEPHENS D TO [...] ORDERAB LES Final Result Performing Organization Address [facility]/ZIP Co de Phone Number [facility] [address] [place] [phone] * T-SPOT??.TB (10/30/2024 1:08 PM EDT) T Spot TB Negative Negative [facility] Comment:A negative test resu lt does [...] as aquantitative test. TS PANEL A 0 [facility] TS PANEL B 1 [facility] Negative Control Passed [facility] Positive Control Passed [facility] Comment:For additional infor matjun, please refer tohttp://education.[employer]/faq/HUY194(This link is being provided for informational/educational purposes only.)THIS TEST WAS PERFORMED AT:[employer] [id number] [place] [id number] CARUSO MD,PHD 10/30/2024 1:08 PM EDT 10/30/2024 2:22 PM EDT us Bc Rascon MD LAB BLOOD ORDERABL ES Final Result Performing Organization Address [facility]/ZIP Co de Phone Number [facility] [address] [place] [phone] * CT Chest w/o Contrast (09/27/2024 1:47 PM EDT) Anatomical Region Laterality Modality Body, Chest Computed Tomogra phy 09/27/2024 1:47 PM EDT Narrative 09/27/2024 1:47 PM EDT [place] [address] CT Scan Report Signed with Addenda Patient: Chris Zaragoza MR#: [id number] : 1950 Acct:[id number] Age/Sex: 74 / M ADM Date: 09/26/24 Loc: HO.CT Attending Dr: Lenny Irving MD Ordering Physician: Lenny Irving MD Date of Service: 09/26/24 Procedure(s): CT chest wo IV con Accession Number(s): [id number] cc: Bc Hunter MD; Lenny Irving MD Report Number: [id number]: Total DLP = 198.00 mGy-cm ADDENDUM This [...] Exam: CT chest without IV contrast Comparison: CT/WY/SR - CT ANGIO CHEST PE PROTOCOL - 06/14/24 13:[address]/WY/SR - CT CHEST WO IV CON - [...] 09/27/24 1347 DD/ 1347 TD/TT: 09/27/24 1347 Donor Services Team Leader: Procedure Note Donotuseinterpreter, Image - 09/27/[address] [address] [address] Scan Report Signed with Addenda Patient: Amos Zaragoza#: [id number] : 3Acct:[id number] Age/Sex: 74 / MADM Date: 09/26/24 Loc: HO.CT Attending Dr: Lenny Irving MD Ordering Physician: Lenny Irving MD Date of Service: 09/26/24 Procedure(s): CT chest wo IV con Accession Number(s): [id number] cc: Bc Hunter MD; Lenny Irving MD Report Number: [id number]: Total DLP = 198.00 mGy-cm ADDENDUM This [...] <Electronically signed by Jessica Bliss MD inOV> 09/27/24 1358 Addendum Cosigned By: DD/ /14/1346 TD/TT: 09/27/2412/14/1357 CLINICAL HISTORY: R91.1 - Solitary pulmonary nodule Exam: CT chest without IV contrast Comparison: CT/WY/SR - CT ANGIO CHEST PE PROTOCOL - 06/14/24 13:[address]/[place]Y/SR - CT CHEST WO IV CON - [...] 09/27/24 1347 DD/ 1347 TD/TT: 09/27/24 1347 Donor Services Team Leader: [facility] External Provider IMG CT PROCEDURES Edited Result - Final * Lipid Panel, Standard (05/06/2023 11:48 AM EST) Triglycerides 61 <150 mg/dL [facility] Comment:Desirable Triglyceri de: less than 150 mg/dLBorderline High Triglyceride 150-199 mg/dLHigh Triglyceride: 200-499 mg/dLVery High Triglyceride: greater than or equal to 5OO mg/dL Cholesterol 166 <200 mg/dL [facility] Comment:Desirable Cholestero l: less than 200 mg/dLBorderline High Cholesterol: 200-239 mg/dLHigh Cholesterol: greater than 239 mg/dL LDL Cholesterol Calculated 94 <100 mg/dL [facility] Comment:Desirable LDL: less than 100 mg/dLNear Optimal/Above Optimal LDL: 110- 129 mg/dLBorderline High LDL: 130-159 mg/dLHigh LDL: 160-189 mg/dLVery High LDL: greater than or equal to 190 mg/dL HDL Cholesterol 60 >40 mg/dL [facility] Comment:Desirable HDL: great er than 40 mg/dL Note: This HDL assay may give artificially low results in patients with liver disease. Blood Venous blood specimen / Unknown 05/06/2023 11:48 AM EST 05/06/2023 2:09 PM EST Bc Rascon MD LAB BLOOD ORDERABL ES Final Result Performing Organization Address City/[facility]/ZIP Co de Phone Number [facility] [address] [place] [phone] * Hepatitis C Antibody with Reflex to HCV, RNA, Quantitative, Real-Time PCR (07/10/2022 11:31 AM EDT) Hepatitis C Antibody NON-REACT DEZ NON-REACT DEZ [employer] [place] [employer] Index 0.09 <1.00 [employer] Comment: HCV antibody was non-reactive. There is no laboratory evidence of HCV infection. In most cases, no further action is required. However, if recent HCV exposure is suspected, a test for HCV RNA (test code 07613) is suggested. For additional information please refer to http://education.[employer]/faq/DHU55q5 (This link is being provided for informational/ educational purposes only.) Blood Venous blood specimen / Unknown 07/10/2022 11:31 AM EDT 07/10/2022 11:32 AM EDT Narrative [facility] - 07/11/2022 5:06 AM EDT FASTING:NO FASTING: NO Bc Rascon MD LAB BLOOD ORDERABL ES Final Result Performing Organization Address City/[facility]/ZIP Co de Phone Number [facility] [address], [place] [phone] [employer] [place] [employer] [address] [place] [phone] from Last 3 Months or Most Recently Relevant to Health Maintenance Insurance MEDICARE [facility] STANDARD Care Teams Rip Saw Operator Relationship Specialty Start Date End Date Bc Hunter MD [address] [place] [address] PCP - General Internal Medicine 01/03/19
--- OUTSIDE RECORDS SUMMARY | 2024-12-05 15:10 | XMS_ITS | Encounter Summary ---
Author Organization [employer] Address [address] [facility] [address]t [place] [address] Care Team Providers Care Performance Tester Name Role Phone Bc Hunter MD Primary Care Prov ider Encounter Details Date Type Department Care Team ([facility] st Contact Info) Description 12/05/2024 Orders Only GENERIC EXTERNAL DATA [...] Description 01/08/2025 11:15 AM EDT Office Visit [facility] PED[facility] [address] [place] [address] Bc Hunter MD [address] [place] [address] documented as of this encounter Procedures Procedure Name Priority Date/Time Associated Diagnosis Comments PROTHROMBIN TIME WHOLE BLD POC Routine 12/05/2024 11:09 AM EDT ~PT, ~INR - ANTI COAG CLINIC Routine 12/05/2024 11:09 AM EDT documented in this encounter Results * (ABNORMAL) PROTHROMBIN TIME WHOLE BLD POC (12/05/2024 11:09 AM EDT) Protime 27.1(H) 11.1 - 13.5 sec [facility] 12/05/2024 11:0 9 AM EDT 12/05/2024 11:12 AM EDT us Generic External Data Provider LAB BLOOD ORDERAB LES Final Result [facility] [address] [place] [phone] * (ABNORMAL) ~PT, ~INR - ANTI COAG CLINIC (12/05/2024 11:09 AM EDT) Prothrombin Time INR 2.3(H) 0.9 - 1.1 [facility] Comment:METER #: [id number] TERNATIONAL NORMALIZED RATIO (INR) REFERENCE RANGES Reference [...] Final Result [facility] [address] [place] [phone] documented in this encounter Visit Diagnoses Not on filedocumented in this encounter Additional Health Concerns Assessment Noted Time PHQ-9 Depression Total Score: 0 09/30/19 24 11:02 AM EDT documented as of this encounter Care Teams Performance Tester Relationship Specialty Start Date End Date Bc Hunter MD [address] [place] [phone] PCP - General Internal Medicine 01/03/19 documented as of this encounter
--- OUTSIDE RECORDS SUMMARY | 2024-12-05 15:10 | XMS_ITS | Encounter Summary ---
Author Organization [employer] Address [address] [facility] 7 [place] [address] Care Team Providers Care Lease Administrator Name Role Phone Bc Hunter MD Primary Care Prov ider Reason for Visit * Reason Onset Date Comments Call Back Request 07/05/2024 Encounter Details Date Type Department Care Team ([facility] st Contact Info) Description 07/05/2024 Telephone [facility] [address] [place] [address] Bc Hunter MD [address] [place], [place] [phone] Call Back Request Social History Tobacco Use [...] 12:18 PM EDT Tc from Kimberly with [facility] requesting a call back regarding the pt Lovenox. Contact Kimberly at [phone] documented in this encounter Plan of Treatment Upcoming Encounters Date Type Department Care Team (Late st Contact Info) Description 01/08/2025 11:15 AM EDT Office Visit [facility] [address] [place] [address] Bc Hunter MD [address] [place] [address] documented as of this encounter Visit Diagnoses Not on filedocumented in this encounter Additional Health Concerns Assessment Noted Time PHQ-9 Depression Total Score: 0 09/30/19 24 11:02 AM EDT documented as of this encounter Care Teams Lease Administrator Relationship Specialty Start Date End Date Bc Hunter MD [address] [place] [address] PCP - General Internal Medicine 01/03/19 documented as of this encounter
--- OUTSIDE RECORDS SUMMARY | 2024-12-05 15:10 | XMS_ITS | Encounter Summary ---
Author Organization [employer] Address [address] [facility] 7 [place] [address] Care Team Providers Care Dye Colorist Formulator Name Role Phone Bc Hunter MD Primary Care Prov ider Reason for Visit * Reason Onset Date Comments Med Refill 05/12/2022 Encounter Details Date Type Department Care Team ([facility] st Contact Info) Description 05/12/2022 Telephone [facility] [address] [place] [address] Bc Hunter MD [address] [place] [address] Med Refill Social History Tobacco Use Types [...] Description 01/08/2025 11:15 AM EDT Office Visit [facility] [address] [place] [address] Bc Hunter MD [address] [place] [address] documented as of this encounter Visit Diagnoses Not on filedocumented in this encounter Care Teams Dye Colorist Formulator Relationship Specialty Start Date End Date cB Hunter MD [address] [place] [address] PCP - General Internal Medicine 01/03/19 documented as of this encounter
--- OUTSIDE RECORDS SUMMARY | 2024-12-05 15:10 | XMS_ITS | Encounter Summary ---
Author Organization [employer] Address [address] [facility] 7 [place] [address] Care Team Providers Care Licensed Pharmacist Name Role Phone Bc Hunter MD Primary Care Prov ider Reason for Visit * Reason Onset Date Comments Nurse Triage 11/22/2024 Encounter Details Date Type Department Care Team ([facility] st Contact Info) Description 11/22/[address] [facility] MEDIC[facility] [address] [place] [address] Bc Hunter MD [address] [place], [place] [phone] Nurse Triage Social History Tobacco Use Types [...] EDT Triage call to Krystin, staff at [facility] where Pt [facility]. Pt is in presence [...] be seen by provider. Offered apt in [facility] tomorrow morning 915am but, unable to go at that time. Pt is given ASK apt 11/24/[address]Dr. Richard in [facility]. Pt is offered to come to [facility] in [facility] but, declined today, Krystin will considerthis if Pt gets worse before 11/24 apt. [facility] apt will be canceled if seen [...] caller accepted this outcome. Contact Krystin at [phone] documented in this encounter Plan of Treatment Upcoming Encounters Date Type Department Care Team ([facility] st Contact Info) Description 01/08/2025 11:15 AM EDT Office Visit [facility] MED & PEDS [address] [place] [address] Bc Hunter MD [address] [place] [address] documented as of this encounter Visit Diagnoses Not on filedocumented in this encounter Additional Health Concerns Assessment Noted Time PHQ-9 Depression Total Score: 0 09/30/19 24 11:02 AM EDT documented as of this encounter Care Teams Licensed Pharmacist Relationship Specialty Start Date End Date Bc Hunter MD [address] [place] [address] PCP - General Internal Medicine 01/03/19 documented as of this encounter
--- OUTSIDE RECORDS SUMMARY | 2024-12-05 15:10 | XMS_ITS | Encounter Summary ---
Author Organization [employer] Address [address] [facility] 7 [place] [address] Care Team Providers Care Lacquer Sizer Name Role Phone Bc Hunter MD Primary Care Prov ider Reason for Visit * Reason Comments Med Change Request Encounter Details Date Type Department Care Team ([facility] Contact Info) Description 07/19/2023 Refill [facility]S [address] [place] [address] Oralia Mazariegos FNP [address] [place] [address] Social History Tobacco Use Types Packs/Day Years [...] MED & PEDS [address] [place] [address] Bc Hunter MD [address] [place] [address] documented as of this encounter Visit Diagnoses Not on filedocumented in this encounter Additional Health Concerns Assessment Noted Time PHQ-9 Depression Total Score: 0 07/11/19 23 11:26 AM EDT documented as of this encounter Care Teams Lacquer Sizer Relationship Specialty Start Date End Date Bc Hunter MD [address] [place] [address] PCP - General Internal Medicine 01/03/19 documented as of this encounter
--- OUTSIDE RECORDS SUMMARY | 2024-12-05 15:10 | XMS_ITS | Encounter Summary ---
Author Organization [employer] Address [address] [facility] 7 [place] [address] Care Team Providers Care Bingo Worker Name Role Phone Bc Hunter MD Primary Care Prov ider Reason for Visit * Reason Comments Med Refill Encounter Details Date Type Department Care Team ([facility] st Contact Info) Description 08/06/2024 Refill [facility] MEDICINE [address] [place] [address] Bc Hunter MD [address] [place], [place] [phone] Social History Tobacco Use Types Packs/Day Years [...] [facility] MED & PEDS 505 [place] [address] Bc Hunter MD [address] [place] [address] documented as of this encounter Visit Diagnoses Not on filedocumented in this encounter Additional Health Concerns Assessment Noted Time PHQ-9 Depression Total Score: 0 09/30/19 24 11:02 AM EDT documented as of this encounter Care Teams Bingo Worker Relationship Specialty Start Date End Date Bc Hunter MD [address] [place] [address] PCP - General Internal Medicine 01/03/19 documented as of this encounter
--- OUTSIDE RECORDS SUMMARY | 2024-12-05 15:10 | XMS_ITS | Clinical Summary ---
Author Organization [facility] Address [address] [place] [address] Phone Care Team Providers Care Encyclopedia Research Worker Name Role Phone Bc Hunter Primary Care Provide r Medical History Medical History Date Comments Heart valve replaced by other means 06/29/2011 DX:Heart valve replaced by other means Asthma 06/29/2011 DX:Asthma Tobacco abuse 06/29/2011 DX:Tobacco abuse Schizophrenia ([facility] V24, CMS/HCC [...] Insurance MEDICARE MEDICAID - [place] Care Teams Encyclopedia Research Worker Relationship Specialty Start Date End Date Bc Hunter [address] [place] [address] PCP - General Internal Medicine 04/13/24
--- OUTSIDE RECORDS SUMMARY | 2024-12-05 15:10 | XMS_ITS | Clinical Summary ---
Author Organization [facility] Address [address] [place] [address] [place] [address] Phone Care Team Providers Care Commutator Repairer Name Role Phone YatesBc Primary Care Provider Allergies No known active allergies Medications D3-50 1.25 MG (07357 UT) capsule TAKE 1 CAPSULE BY MOUTH [...] Visit [facility] [address] [place] [address] Trever Lopez MD [address] [place] [phone] Health Maintenance Due Date Last Done Comments [...] topic Insurance Medicare Medicaid [place] Care Teams Commutator Repairer Relationship Specialty Start Date End Date Bc Yates PCP - General Internal Medicine 10/05/22
--- OUTSIDE RECORDS SUMMARY | 2024-12-05 15:10 | XMS_ITS | Encounter Summary ---
Author Organization [facility] Address [address] [place] [address] Phone Care Team Providers Care Hand Method Lasting Machine Operator Name Role Phone Bc Yates Primary Care Provider [phone]- [phone] Reason for Visit * Reason Comments Med Refill Encounter Details Date Type Department Care Team (Late st Contact Info) Description 01/13/2022 Refill [facility] [address] [place] [address] Trever Lopez MD [address] [facility] [place] [address] Social History Tobacco Use Types [...] Visit [facility] [address] [place] [address] Trever Lopez MD [address] [facility] [place] [address] documented as of this encounter Visit Diagnoses Not on filedocumented in this encounter Care Teams Hand Method Lasting Machine Operator Relationship Specialty Start Date End Date Bc Yates PCP - General Internal Medicine 10/05/22 documented as of this encounter
--- OUTSIDE RECORDS SUMMARY | 2024-12-05 15:10 | XMS_ITS | Encounter Summary ---
Author Organization [employer] Address [address] [place] [address] 7 [place] [address] Care Team Providers Care Laborer Livestock Name Role Phone Bc Hunter MD Primary Care Prov ider Encounter Details Date Type Department Care Team (Late Contact Info) Description 05/18/2022 Orders Only [facility] MED & PEDS [address] [place] [address] Bc Hunter MD [address] [place], [place] [phone] S/P aortic valve replacement Social History Tobacco [...] Description 01/08/2025 11:15 AM EDT Office Visit [facility] MED & PEDS [address] [place] [address] Bc Hunter MD [address] [place], [place] [phone] documented as of this encounter Visit Diagnoses Diagnosis S/P aortic valve replacement Heart valve replaced by other means documented in this encounter Care Teams Laborer Livestock Relationship Specialty Start Date End Date Bc Hunter MD [address] [place] [address] PCP - General Internal Medicine 01/03/19 documented as of this encounter
--- OUTSIDE RECORDS SUMMARY | 2024-12-05 15:10 | XMS_ITS | Encounter Summary ---
Author Organization [employer] Address 75 [facility] 7 [place] [address] Care Team Providers Care Deputy Sheriff Name Role Phone Bc Hunter MD Primary Care Prov ider Reason for Visit * Reason Comments Med Refill Encounter Details Date Type Department Care Team ([facility] st Contact Info) Description 05/18/2023 Refill [facility] CH[facility] MED & PEDS [address] [place] [address] Bc Hunter MD 505 [place] [address] Social History Tobacco Use Types Packs/Day Years [...] [facility] MED & PEDS [address] [place] [address] Bc Hunter MD 505 [place] [address] documented as of this encounter Visit Diagnoses Not on filedocumented in this encounter Additional Health Concerns Assessment Noted Time PHQ-9 Depression Total Score: 0 07/11/19 23 11:26 AM EDT documented as of this encounter Care Teams Deputy Sheriff Relationship Specialty Start Date End Date Bc Hunter MD 505 [place] [address] PCP - General Internal Medicine 01/03/19 documented as of this encounter
--- OUTSIDE RECORDS SUMMARY | 2024-12-05 15:10 | XMS_ITS | Encounter Summary ---
Author Organization [employer] Address [address] [place] [address] Care Team Providers Care Photolithographic Stripper Name Role Phone Bc Hunter MD Primary Care Prov ider Reason for Visit * Reason Comments Med Refill Encounter Details Date Type Department Care Team (Late Contact Info) Description 10/25/2022 Refill [facility] MED & PEDS [address] [place] [address] Bc Hunter MD 505 [place] [address] Social History Tobacco Use Types Packs/Day Years [facility] [address] [place], [place] [phone] Bc Hunter MD 505 [place] [address] documented as of this encounter Visit Diagnoses Not on filedocumented in this encounter Additional Health Concerns Assessment Noted Time PHQ-9 Depression Total Score: 0 07/11/19 23 11:26 AM EDT documented as of this encounter Care Teams Photolithographic Stripper Relationship Specialty Start Date End Date Bc Hunter MD [address] [place] [address] PCP - General Internal Medicine 01/03/19 documented as of this encounter
--- OUTSIDE RECORDS SUMMARY | 2024-12-05 15:10 | XMS_ITS | Encounter Summary ---
Author Organization [employer] Address 75 [facility] 7 [place] [address] Care Team Providers Care University Intern Name Role Phone Bc Hunter MD Primary Care Prov ider Reason for Visit * Reason Onset Date Comments Med Refill 05/15/2022 Encounter Details Date Type Department Care Team ([facility] st Contact Info) Description 05/15/2022 Telephone [facility] CH[facility] MED & PEDS [address] [place] [address] Bc Hunter MD 505 [place] [address] Med Refill Social History Tobacco Use Types [...] max daily dose. Call placed to [facility] Coumadin clinic. Per [...] EST Tc from Amy with [facility] requesting some kinds of specific directions for warfarin (Coumadin) 2 MG tablet If any question please contact amy at [phone] documented in this encounter Plan of Treatment Upcoming Encounters Date Type Department Care Team (Late st Contact Info) Description 01/08/2025 11:15 AM EDT Office Visit [facility] MED & PEDS 505 [place] [address] Bc Hunter MD 505 [place] [address] documented as of this encounter Visit Diagnoses Not on filedocumented in this encounter Care Teams University Intern Relationship Specialty Start Date End Date Bc Hunter MD 505 [place] [address] PCP - General Internal Medicine 01/03/19 documented as of this encounter
--- OUTSIDE RECORDS SUMMARY | 2024-12-05 15:10 | XMS_ITS | Encounter Summary ---
Author Organization [employer] Address [address] [place] [address] Care Team Providers Care Healthcare Sales Representative Name Role Phone Bc Hunter MD Primary Care Prov ider Encounter Details Date Type Department Care Team ([facility] Contact Info) Description 02/24/2022 Telephone [facility] MEDICINE [address] [place], [place] [phone] Bc Hunter MD 505 [place], [place] [phone] Social History Tobacco Use Types Packs/Day Years [...] 01/08/2025 11:15 AM EDT Office Visit [facility] CH[facility] MED & PEDS 505 [place], [place] [phone] Bc Hunter MD 505 [place], [place] [phone] documented as of this encounter Visit Diagnoses Not on filedocumented in this encounter Care Teams Healthcare Sales Representative Relationship Specialty Start Date End Date Bc Hunter MD [address] [place], [place] [phone] PCP - General Internal Medicine 01/03/19 documented as of this encounter
--- OUTSIDE RECORDS SUMMARY | 2024-12-05 15:10 | XMS_ITS | Encounter Summary ---
Author Organization [employer] Address 75 [facility] 7 [place] [address] Care Team Providers Care Safety Counselor Name Role Phone Bc Hunter MD Primary Care Prov ider Reason for Visit * Reason Comments Med Refill Encounter Details Date Type Department Care Team ([facility] st Contact Info) Description 11/29/2024 Refill [facility] CHC MED & PEDS [address] [place] [address] Bc Hunter MD [address] [place] [address] Seborrheic dermatitis of scalp; Mixed hyperlipidemia; Gastroesophageal reflux disease without esophagitis Social History [...] Upcoming Encounters Date Type Department Care Team ([facility] st Contact Info) Description 01/08/2025 11:15 AM EDT Office Visit [facility] MED & PEDS [address] [place] [address] Bc Hunter MD [address] [place] [address] documented as of this encounter Visit Diagnoses Diagnosis Seborrheic dermatitis of scalp Other seborrheic dermatitis Mixed hyperlipidemia Gastroesophageal reflux disease without esophagitis Esophageal reflux documented in this encounter Additional Health Concerns Assessment Noted Time PHQ-9 Depression Total Score: 0 09/30/19 24 11:02 AM EDT documented as of this encounter Care Teams Safety Counselor Relationship Specialty Start Date End Date Bc Hunter MD [address] [place] [address] PCP - General Internal Medicine 01/03/19 documented as of this encounter
--- OUTSIDE RECORDS SUMMARY | 2024-12-05 15:10 | XMS_ITS | Encounter Summary ---
Author Organization [employer] Address [address] [facility] 7 [place] [address] Care Team Providers Care Motor Equipment Sergeant Name Role Phone Bc Hunter MD Primary Care Prov ider Reason for Visit * Reason Onset Date Comments Referral 12/06/2023 Encounter Details Date Type Department Care Team ([facility] st Contact Info) Description 12/06/2023 Telephone [facility] MEDICINE [address] [place] [address] Bc Hunter MD 505 [place], [place] [phone] Referral Social History Tobacco Use Types Packs/Day [...] 12/06/2023 9:45 AM EDT Tc from patients nursing home calling to report the provider for podiatry has and would need to be referred to another location would like to be seen by Sarkis in [place] if[place] documented in this encounter Plan of Treatment Upcoming Encounters Date Type Department Care Team (Late st Contact Info) Description 01/08/2025 11:15 AM EDT Office Visit [facility] CHC MED & PEDS 505 [place] [address] Bc Hunter MD [address] [place] [address] documented as of this encounter Visit Diagnoses Not on filedocumented in this encounter Additional Health Concerns Assessment Noted Time PHQ-9 Depression Total Score: 0 09/30/19 24 11:02 AM EDT documented as of this encounter Care Teams Motor Equipment Sergeant Relationship Specialty Start Date End Date Bc Hunter MD [address] [place] [address] PCP - General Internal Medicine 01/03/19 documented as of this encounter
--- OUTSIDE RECORDS SUMMARY | 2024-12-05 15:10 | XMS_ITS | Encounter Summary ---
Author Organization [facility] Address [address] [place] [address] Phone Care Team Providers Care Prefabricator Name Role Phone Bc Yates Primary Care Provider [phone]- [phone] Encounter Details Date Type Department Care Team (Late st Contact Info) Description 05/26/2021 Documentation Only [facility] [address] [place] [address] Trever Lopez MD [address] [place] [address] [place] [address] Social History Tobacco Use Types [...] Visit [facility] [address] [place] [address] Trever Lopez MD [address] [place] [address] [place] [address] documented as of this encounter Visit Diagnoses Not on filedocumented in this encounter Care Teams Prefabricator Relationship Specialty Start Date End Date Bc Yates PCP - General Internal Medicine 10/05/22 documented as of this encounter
--- OUTSIDE RECORDS SUMMARY | 2024-12-05 15:10 | XMS_ITS | Encounter Summary ---
Author Organization [employer] Address 75 [facility] 7 [place] [address] Care Team Providers Care Casing Trimmer Name Role Phone Bc Hunter MD Primary Care Prov ider Reason for Visit * Reason Onset Date Comments Nurse Triage 05/26/2023 Encounter Details Date Type Department Care Team ([facility] st Contact Info) Description 05/26/2023 Telephone [facility] MEDICINE 230 [place] [address] Bc Hunter MD [address] [place], [place] [phone] Nurse Triage Social History Tobacco Use Types [...] AM EST Triage call Pt is in penitentiary, Krystin Sepulveda taking call and consent is signed by Pt for staff to speak . Pt has had some changes. Pt decided to stop all psyche medications and MD Ward Myers,discontinued them. (Stop date unknown) Pt has since that time decreased eating, appetite is poor. Pt weight yesterday at scrap collector apt is 173lbs. Pt was said to be around 202lbs regularly. Pt clothes are fitting very loosely now. Pt also wanted to stop coumadin but, scrap collector instructed that wouldn't be good to do [...] acuity questions The caller accepted this outcome [phone] documented in this encounter Plan of Treatment Upcoming Encounters Date Type Department Care Team ([facility] st Contact Info) Description 01/08/2025 11:15 AM EDT Office Visit [facility] MED & PEDS [address] [place] [address] Bc Hunter MD [address] [place] [address] documented as of this encounter Visit Diagnoses Not on filedocumented in this encounter Additional Health Concerns Assessment Noted Time PHQ-9 Depression Total Score: 0 07/11/19 23 11:26 AM EDT documented as of this encounter Care Teams Casing Trimmer Relationship Specialty Start Date End Date Bc Hunter MD [address] [place] [address] PCP - General Internal Medicine 01/03/19 documented as of this encounter
--- OUTSIDE RECORDS SUMMARY | 2024-12-05 15:10 | XMS_ITS | Encounter Summary ---
Author Organization [employer] Address 75 [facility] 7 [place] [address] Care Team Providers Care Condominium Property Manager Name Role Phone Bc Hunter MD Primary Care Prov ider Reason for Visit * Reason Onset Date Comments Nurse Triage 2024 Encounter Details Date Type Department Care Team ([facility] st Contact Info) Description 2024 Telephone [facility] MEDICINE [address] [place] [address] Bc Hunter MD [address] [place], [place] [phone] Nurse Triage Social History Tobacco Use Types [...] EDT called pt to triage, spoke to timber mill worker, ANTONIO. pt was seen on 06/14 by [facility] pulmonology on 06/14 and due to some distress was sent to the ER for evaluation. pt diagnosed with Pneumonia and put onantibiotics x5 days. worker states pt eating and drinking, not having any fevers or severe/sustained sob, or other associated symptoms. given appt Wednesday with [facility] at 1:00 for exam [...] 2024 3:49 PM EDT Tc from Patient TOOLROOM CHECKER to report ED visit on : Date: 06/14 Hospital: [facility] Seen for: pneumonia Symptomatic Yes *if yes message should go to Triage Patient advised will forward to team nurse for follow up [phone] pt documented in this encounter Plan of Treatment Upcoming Encounters Date Type Department Care Team (Late st Contact Info) Description 01/08/2025 11:15 AM EDT Office Visit [facility] MED & PEDS [address] [place] [address] Bc Hunter MD [address] [place] [address] documented as of this encounter Visit Diagnoses Not on filedocumented in this encounter Additional Health Concerns Assessment Noted Time PHQ-9 Depression Total Score: 0 09/30/19 24 11:02 AM EDT documented as of this encounter Care Teams Condominium Property Manager Relationship Specialty Start Date End Date Bc Hunter MD [address] [place] [address] PCP - General Internal Medicine 01/03/19 documented as of this encounter
--- OUTSIDE RECORDS SUMMARY | 2024-12-05 15:10 | XMS_ITS | Encounter Summary ---
Author Organization [employer] Address [address] [place] [address] [place] [address] Care Team Providers Care Floor Sanding Machine Operator Name Role Phone Bc Hunter MD Primary Care Prov ider Reason for Visit * Reason Onset Date Comments Med Refill 09/21/2022 Encounter Details Date Type Department Care Team ([facility] st Contact Info) Description 09/21/2022 Telephone [facility] CHC MED & PEDS [address] [place] [address] Bc Hunter MD [address] [place] [address] Med Refill Social History Tobacco Use Types [...] 09/23/2022 8:28 AM EDT Pt managed by [facility] coumadin clinic. Last INR of 3.1 noted 09/17/22. Will forward request for Rx to covering provider to review. * Telephone Encounter - Ping Nettles - 09/21/2022 10:39 AM EDT Tc from pt requesting med refill on Warfarin 1 mg tablet [facility]/pharmacy #[id number] - [place], [place] - [address] [facility] Please sent to documented in this encounter Plan of Treatment Upcoming Encounters Date Type Department Care Team (Late st Contact Info) Description 01/08/2025 11:15 AM EDT Office Visit [facility] MED & PEDS [address] [place] [address] Bc Hunter MD [address] [place] [address] documented as of this encounter Visit Diagnoses Diagnosis History of Coumadin therapy- Primary S/P aortic valve replacement Heart valve replaced by other means documented in this encounter Additional Health Concerns Assessment Noted Time PHQ-9 Depression Total Score: 0 07/11/19 23 11:26 AM EDT documented as of this encounter Care Teams Floor Sanding Machine Operator Relationship Specialty Start Date End Date Bc Hunter MD [address] [place] [address] PCP - General Internal Medicine 01/03/19 documented as of this encounter
== END 2024-12-05 11:31 | disposition home or self-care (01) ==
LOC: HO.ACS 11:06
PROVIDERS: PCP Internal Medicine; Visit Provider Internal Medicine Medical Oncology
DX: Z79.01 Long term (current) use of anticoagulants (principal)

== ENCOUNTER → 2024-12-05 11:06 | Outpatient (BNVA) | payer MEDICARE, MEDICAID, SELFPAY | PROVIDERS: PCP Internal Medicine; Visit Provider Internal Medicine Medical Oncology | DX: Z51.81 Encounter for therapeutic drug level monitoring (principal); Z79.01 Long term (current) use of anticoagulants | CPT/HCPCS: 85610; 99211 ==

== ENCOUNTER 2024-12-29 10:40 | Outpatient (AMB) | payer MEDICARE, MEDICAID, SELFPAY ==
[2024-12-29 10:52] LABS: Prothrombin Time Whole Bld POC 18.5 sec (11.1-13.5); ~PT, ~INR - Anti Coag Clinic 1.5 (0.9-1.1)
--- NOTE | 2024-12-29 11:04 | MHC.OFFVISCO ---
Intake Intake Visit Reasons: Anticoagulation Allergies No Known Allergies Allergy (Mild, Verified 12/29/24 10:43) NOT APPLICABLE Medication List - Last Reconciled 12/29/24 by Magdalena Echeverria RN albuterol sulfate 90 mcg/actuation (Ventolin HFA) 1 puff inhalation RQ4H PRN amantadine HCl 100 mg PO BID atorvastatin 40 mg PO BEDTIME azithromycin mg PO carbamide peroxide (Debrox) 5 DROPS EACH EAR EVERY 2 WEEKS cholecalciferol (vitamin D3) (Vitamin D3) 25 mcg PO QAM dicyclomine 20 mg PO BID divalproex ER 1,000 mg PO BEDTIME ferrous sulfate 324 mg PO DAILY ferrous sulfate 325 mg PO QAM [FLUCINOLONE TOPICAL DAILY ] [id number]-pyczwaunk-flqicnyi 200-62.5-25 mcg (Trelegy Ellipta) 1 inh inhalation DAILY guaifenesin ER (Mucus Relief ER) 1,200 mg PO BID levothyroxine 25 mcg PO DAILY@0600 loratadine 10 mg PO DAILY magnesium oxide 400 mg PO BIDPC multivitamin with folic acid 400 mcg (Daily-Stanley (with folic acid)) 1 tab PO DAILY pantoprazole 40 mg PO BID revefenacin (Yupelri) 175 mcg (3 mL) inhalation DAILY 30 days risperidone (Risperdal) 4 mg PO BID tamsulosin 0.4 mg PO BEDTIME valproic acid 1000mg orally daily; warfarin See Protocol 2 mg orally 4MG DAILY OR DIRECTED; 4MG DAILY OR DIRECTED Nursing Note PT.DENIES ANY CP,SOB,DIET/MED CHANGES,FALLS OR SX OF BLEEDING. LIKELY A MISSED DOSE IS THE REASON FOR LOW INR TODAY. BOOST TO 6MGM TODAY AND 4MGM TOMORROW AND RECHECK INR ON 01/02/25. NO GREENS OR CHOCOLATE 2-3 DAYS GOOD UNDERSTANDING OF DOSING BY VIDEO NEWS EDITOR. INR REPORTED TO PCP(NEGRA) WITH PLAN OF CARE AT 11AM Anti-Coag Initial Assessment Social Hx Patient Tobacco Use Status: Refuse Tobacco use screen alcohol intake: never Coding Level of Care Code Est Patient Level 1 Diagnoses Current use of anticoagulant therapy Z79.01 Assessment & Plan Assessment & Plan (1) Current use of anticoagulant therapy: Code(s): Z79.01 - halfway (current) use of anticoagulants Category: Medical
== END 2024-12-29 11:09 | disposition home or self-care (01) ==
LOC: HO.ACS 10:40
PROVIDERS: PCP Internal Medicine; Visit Provider Internal Medicine Medical Oncology
DX: Z79.01 Long term (current) use of anticoagulants (principal)

== ENCOUNTER → 2024-12-29 10:40 | Outpatient (BNVA) | payer MEDICARE, MEDICAID, SELFPAY | PROVIDERS: PCP Internal Medicine; Visit Provider Internal Medicine Medical Oncology | DX: Z51.81 Encounter for therapeutic drug level monitoring (principal); Z79.01 Long term (current) use of anticoagulants | CPT/HCPCS: 85610; 99211 ==

== ENCOUNTER 2025-01-02 11:19 | Outpatient (AMB) | payer MEDICARE, MEDICAID, SELFPAY ==
[2025-01-02 11:28] LABS: Prothrombin Time Whole Bld POC 31.6 sec (11.1-13.5); ~PT, ~INR - Anti Coag Clinic 2.6 (0.9-1.1)
--- NOTE | 2025-01-02 11:33 | MHC.OFFVISCO ---
Intake Intake Visit Reasons: Anticoagulation Allergies No Known Allergies Allergy (Mild, Verified 01/02/25 11:23) NOT APPLICABLE Medication List - Last Reconciled 01/02/25 by Nivia Beaver RN albuterol sulfate 90 mcg/actuation (Ventolin HFA) 1 puff inhalation RQ4H PRN amantadine HCl 100 mg PO BID atorvastatin 40 mg PO BEDTIME azithromycin mg PO carbamide peroxide (Debrox) 5 DROPS EACH EAR EVERY 2 WEEKS cholecalciferol (vitamin D3) (Vitamin D3) 25 mcg PO QAM dicyclomine 20 mg PO BID divalproex ER 1,000 mg PO BEDTIME ferrous sulfate 324 mg PO DAILY ferrous sulfate 325 mg PO QAM [FLUCINOLONE TOPICAL DAILY ] [id number]-aymepuywv-aalkpkxi 200-62.5-25 mcg (Trelegy Ellipta) 1 inh inhalation DAILY guaifenesin ER (Mucus Relief ER) 1,200 mg PO BID levothyroxine 25 mcg PO DAILY@0600 loratadine 10 mg PO DAILY magnesium oxide 400 mg PO BIDPC multivitamin with folic acid 400 mcg (Daily-Stanley (with folic acid)) 1 tab PO DAILY pantoprazole 40 mg PO BID revefenacin (Yupelri) 175 mcg (3 mL) inhalation DAILY 30 days risperidone (Risperdal) 4 mg PO BID tamsulosin 0.4 mg PO BEDTIME valproic acid 1000mg orally daily; warfarin See Protocol 2 mg orally 4MG DAILY OR DIRECTED; 4MG DAILY OR DIRECTED Nursing Note INR: 2.6 in therapeutic range of 2-3 Medications and supplements reviewed No changes in health, diet, medications, or supplements, Denies any signs and symptoms of bleeding or bruising or clotting. Bleeding, bruising, clotting discussed Nutritional guidance given Dose: 4mg X 4 days and 2mg X 3 days (Tues, Thurs & Sat) F/U INR: 2 weeks Patient verbalizes understanding of instructions given Anti-Coag Initial Assessment Social Hx Patient Tobacco Use Status: Refuse Tobacco use screen alcohol intake: never Coding Level of Care Code Est Patient Level 1 Diagnoses Current use of anticoagulant therapy Z79.01 Results AMB INR Fingerstick AMB INR Fingerstick 2.6 Last Edit by Nivia Beaver RN on 01/02/25 11:30 interface delay Assessment & Plan Assessment & Plan (1) Current use of anticoagulant therapy: Code(s): Z79.01 - bed bug exterminator (current) use of anticoagulants Category: Medical
--- OUTSIDE RECORDS SUMMARY | 2025-01-02 13:43 | XMS_ITS | Encounter Summary ---
Author Organization [employer] Address 75 [facility] 7t [place] [address] Care Team Providers Care Auto Finance Sales Rep Name Role Phone Bc Hunter MD Primary Care Prov ider Reason for Visit * Reason Comments Med Change Request Encounter Details Date Type Department Care Team ([facility] Contact Info) Description 07/19/2023 Refill [facility] CHC MED & PEDS [address] [place], [place] [phone] Oralia Mazariegos FNP 505 [place] [address] Social History Tobacco Use Types Packs/Day Years [...] [facility] MED & PEDS [address] [place] [address] Bc Hunter MD 505 [place] [address] documented as of this encounter Visit Diagnoses Not on filedocumented in this encounter Additional Health Concerns Assessment Noted Time PHQ-9 Depression Total Score: 0 07/11/19 23 11:26 AM EDT documented as of this encounter Care Teams Auto Finance Sales Rep Relationship Specialty Start Date End Date Bc Hunter MD 505 [place] [address] PCP - General Internal Medicine 01/03/19 documented as of this encounter
--- OUTSIDE RECORDS SUMMARY | 2025-01-02 13:43 | XMS_ITS | Encounter Summary ---
Author Organization [facility] Address [address] [place] [address] Phone Care Team Providers Care Shed Boss Name Role Phone Bc Yates Primary Care Provider +1- [phone] Reason for Visit * Reason Comments Med Refill Encounter Details Date Type Department Care Team (Late st Contact Info) Description 01/13/2022 Refill [facility] [address] [place] [address] Trever Lopez MD [address] [facility] [place] [address] Social History Tobacco Use Types [...] Visit [facility] [address] [place] [address] Trever Lopez MD [address] [facility] [place] [address] documented as of this encounter Visit Diagnoses Not on filedocumented in this encounter Care Teams Shed Boss Relationship Specialty Start Date End Date Bc Yates PCP - General Internal Medicine 10/05/22 documented as of this encounter
--- OUTSIDE RECORDS SUMMARY | 2025-01-02 13:43 | XMS_ITS | Encounter Summary ---
Author Organization [employer] Address 75 [facility] 7 [place] [address] Care Team Providers Care Printer Maintainer Name Role Phone Bc Hunter MD Primary Care Prov ider Reason for Visit * Reason Onset Date Comments Nurse Triage 11/22/2024 Encounter Details Date Type Department Care Team ([facility] st Contact Info) Description 11/22/2024 Telephone [facility] MEDICINE [address] [place] [address] Bc Hunter MD [address] [place], [place] [phone] Nurse Triage Social History Tobacco Use Types [...] EDT Triage call to Krystin, staff [facility] Pt [facility]. Pt is in [...] be seen by provider. Offered apt in [facility] tomorrow morning 915am but, unable to go at that time. Pt is given ASK apt 11/24/[address]Dr. Richard in [facility]. Pt is offered to come to [facility]IC in [facility] but, declined today, Krystin will considerthis if Pt gets worse before 11/24 apt. [facility] apt will be canceled if seen in [...] caller accepted this outcome. Contact Krystin at [phone] documented in this encounter Plan of Treatment Upcoming Encounters Date Type Department Care Team ([facility] st Contact Info) Description 01/08/2025 11:15 AM EDT Office Visit [facility] MED & PEDS [address] [place] [address] Bc Hunter MD [address] [place] [address] documented as of this encounter Visit Diagnoses Not on filedocumented in this encounter Additional Health Concerns Assessment Noted Time PHQ-9 Depression Total Score: 0 09/30/19 24 11:02 AM EDT documented as of this encounter Care Teams Printer Maintainer Relationship Specialty Start Date End Date Bc Hunter MD [address] [place] [address] PCP - General Internal Medicine 01/03/19 documented as of this encounter
--- OUTSIDE RECORDS SUMMARY | 2025-01-02 13:43 | XMS_ITS | Encounter Summary ---
Author Organization [email or web address] Address 75 [facility] 7 [place] [address] Care Team Providers Care Epoxy Coatings Installer Name Role Phone Bc Hunter MD Primary Care Prov ider Reason for Visit * Reason Onset Date Comments Nurse Triage 05/26/2023 Encounter Details Date Type Department Care Team ([facility] st Contact Info) Description 05/26/2023 Telephone [facility]INE [address] [place] [address] Bc Hunter MD 505 [place], [place] [phone] Nurse Triage Social History Tobacco Use Types [...] appetite is poor. Pt weight yesterday at [facility] overhauler apt is 173lbs. Pt was said to be around 202lbs regularly. Pt clothes are fitting very loosely now. Pt also wanted to stop coumadin but, vat overhauler instructed that wouldn't be good to do [...] acuity questions The caller accepted this outcome [phone] documented in this encounter Plan of Treatment Upcoming Encounters Date Type Department Care Team ([facility] st Contact Info) Description 01/08/2025 11:15 AM EDT Office Visit [facility] MED & PEDS 505 [place] [address] Bc Hunter MD 505 [place] [address] documented as of this encounter Visit Diagnoses Not on filedocumented in this encounter Additional Health Concerns Assessment Noted Time PHQ-9 Depression Total Score: 0 07/11/19 23 11:26 AM EDT documented as of this encounter Care Teams Epoxy Coatings Installer Relationship Specialty Start Date End Date Bc Hunter MD 505 [place] [address] PCP - General Internal Medicine 01/03/19 documented as of this encounter
--- OUTSIDE RECORDS SUMMARY | 2025-01-02 13:43 | XMS_ITS | Encounter Summary ---
Author Organization [employer] Address 75 [facility] 7 [place] [address] Care Team Providers Care Vegetable Inspector Name Role Phone Bc Hunter MD Primary Care Prov ider Reason for Visit * Reason Comments Med Refill Encounter Details Date Type Department Care Team ([facility] st Contact Info) Description 08/06/2024 Refill [facility] MEDICINE [address] [place] [address] Bc Hunter MD 505 [place], [place] [phone] Social History Tobacco Use Types Packs/Day Years [...] Description 01/08/2025 11:15 AM EDT Office Visit [facility] CHC MED & PEDS 505 [place] [address] Bc Hunter MD 505 [place] [address] documented as of this encounter Visit Diagnoses Not on filedocumented in this encounter Additional Health Concerns Assessment Noted Time PHQ-9 Depression Total Score: 0 09/30/19 24 11:02 AM EDT documented as of this encounter Care Teams Vegetable Inspector Relationship Specialty Start Date End Date Bc Hunter MD 505 [place] [address] PCP - General Internal Medicine 01/03/19 documented as of this encounter
--- OUTSIDE RECORDS SUMMARY | 2025-01-02 13:43 | XMS_ITS | Clinical Summary ---
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 Asthma 06/29/2011 DX:Asthma Tobacco abuse 06/29/2011 DX:Tobacco abuse Schizophrenia ([facility] V24, CMS/HCC V28) 06/29/2011 [...] Date Last Done Comments Colorectal Cancer Screening: Colonoscopy 1952 RSV Immunization Adult Patients (1 - Risk 50-74 years 1-dose series) 2002 Zoster Vaccines (2 of 2) 06/27/2021 05/02/2021 Pneumococcal Vaccine: 50+ Years (3 of 3 - PCV20 or PCV21) 03/17/2024 03/17/2019, 11/22/2014, 06/17/2000 Depression Screening 03/22/2024 Abdominal Aortic Aneurysm (AAA) Screen 04/14/2024 Falls Risk Assessment 04/14/2024 Medicare Annual [...] Insurance MEDICARE MEDICAID - [place] Care Teams Manager Integrated Relationship Specialty Start Date End Date Bc Hunter [address] [place] [address] PCP - General Internal Medicine 04/13/24
--- OUTSIDE RECORDS SUMMARY | 2025-01-02 13:43 | XMS_ITS | Clinical Summary ---
Author Organization [facility] Address [address] [place] [address] [place] [address] Phone Care Team Providers Care Tv Production Assistant Name Role Phone YatesBc Primary Care Provider Allergies No known active allergies Medications D3-50 1.25 MG (33268 UT) capsule TAKE 1 CAPSULE BY MOUTH [...] [facility] [address] [place] [address] Trever Lopez MD [address] [facility] [place] [id number] Health Maintenance Due Date Last Done Comments [...] topic Insurance Medicare Medicaid [place] Care Teams Tv Production Assistant Relationship Specialty Start Date End Date Bc Yates PCP - General Internal Medicine 10/05/22
--- OUTSIDE RECORDS SUMMARY | 2025-01-02 13:43 | XMS_ITS | Encounter Summary ---
Author Organization [facility] Address [address] [place] [address] Phone Care Team Providers Care Space Control Supervisor Name Role Phone Bc Yates Primary Care Provider +1- [phone] Encounter Details Date Type Department Care Team (Late st Contact Info) Description 05/26/2021 Documentation Only [facility] [address] [place] [address] Trever Lopez MD [address] [place] [address] [place] [address] Social History Tobacco Use Types [...] [facility] [address] [place] [address] Trever Lopez MD [address] [place] [address] [place] [address] documented as of this encounter Visit Diagnoses Not on filedocumented in this encounter Care Teams Space Control Supervisor Relationship Specialty Start Date End Date Bc Yates PCP - General Internal Medicine 10/05/22 documented as of this encounter
--- OUTSIDE RECORDS SUMMARY | 2025-01-02 13:43 | XMS_ITS | Encounter Summary ---
Author Organization [employer] Address 75 [facility] 7 [place] [address] Care Team Providers Care Emery Wheel Molder Name Role Phone Bc Hunter MD Primary Care Prov ider Reason for Visit * Reason Onset Date Comments Call Back Request 11/15/2024 Encounter Details Date Type Department Care Team ([facility] Contact Info) Description 11/15/[address] [facility] CHC MED & PEDS [address] [place] [address] Bc Hunter MD 505 [place] [address] Call Back Request Social History Tobacco Use [...] 12:04 PM EDT TC to Olga with [facility]. Stated needs clarification to have claritin scheduled, have atorvastatin scheduled for HS and have FeSulfate scheduled for PM. Advised will fax over telephone order form and have pcp update order to [facility]. Fax sent to [facility] with confirmation. * Telephone Encounter - Jenn Krishnamurthy - 11/15/2024 11:06 AM EDT Tc from Olga Cage at [facility] requesting a call back to discuss medication labels Contact Olga at [phone] documented in this encounter Plan of Treatment Upcoming Encounters Date Type Department Care Team (Late st Contact Info) Description 01/08/2025 11:15 AM EDT Office Visit [facility] CHC MED & PEDS [address] [place] [address] Bc Hunter MD 505 [place] [address] documented as of this encounter Visit Diagnoses [...] documented as of this encounter Care Teams Emery Wheel Molder Relationship Specialty Start Date End Date Bc Hunter MD [address] [place] [address] PCP - General Internal Medicine 01/03/19 documented as of this encounter
--- OUTSIDE RECORDS SUMMARY | 2025-01-02 13:43 | XMS_ITS | Encounter Summary ---
Author Organization [employer] Address 75 [facility] 7 [place] [address] Care Team Providers Care Cyber Security Engineer Name Role Phone Bc Hunter MD Primary Care Prov ider Encounter Details Date Type Department Care Team (Late st Contact Info) Description 09/20/2023 Orders Only [facility] CHC MED & PEDS 505 [place], [place] [phone] Bc Hunter MD 505 [place] [address] Social History Tobacco Use Types Packs/Day Years [...] Description 01/08/2025 11:15 AM EDT Office Visit [facility] MED & PEDS 505 [place] [address] Bc Hunter MD 505 [place] [address] documented as of this encounter Visit Diagnoses Not on filedocumented in this encounter Additional Health Concerns Assessment Noted Time PHQ-9 Depression Total Score: 0 07/11/19 23 11:26 AM EDT documented as of this encounter Care Teams Cyber Security Engineer Relationship Specialty Start Date End Date Bc Hunter MD 505 [place] [address] PCP - General Internal Medicine 01/03/19 documented as of this encounter
--- OUTSIDE RECORDS SUMMARY | 2025-01-02 13:43 | XMS_ITS | Encounter Summary ---
Author Organization [employer] Address 75 [facility] 7 [place] [address] Care Team Providers Care Project Coach Name Role Phone Bc Hunter MD Primary Care Prov ider Reason for Visit * Reason Onset Date Comments Med Refill 05/12/2022 Encounter Details Date Type Department Care Team ([facility] st Contact Info) Description 05/12/2022 Telephone [facility] MEDICINE [address] [place] [address] Bc Huntre MD 505 [place] [address] Med Refill Social History Tobacco Use Types [...] Description 01/08/2025 11:15 AM EDT Office Visit [facility] CHC MED & PEDS 505 [place] [address] Bc Hunter MD 505 [place] [address] documented as of this encounter Visit Diagnoses Not on filedocumented in this encounter Care Teams Project Coach Relationship Specialty Start Date End Date Bc Hunter MD 505 [place] [address] PCP - General Internal Medicine 01/03/19 documented as of this encounter
--- OUTSIDE RECORDS SUMMARY | 2025-01-02 13:44 | XMS_ITS | Encounter Summary ---
Author Organization [employer] Address 75 [facility] 7 [place] [address] Care Team Providers Care Mailing Section Clerk Name Role Phone Bc Hunter MD Primary Care Prov ider Reason for Visit * Reason Onset Date Comments Medication Question 08/29/2024 Encounter Details Date Type Department Care Team ([facility] st Contact Info) Description 08/29/2024 Telephone [facility] MEDICINE [address] [place] [address] Bc Hunter MD 505 [place], [place] [phone] Medication Question Social History Tobacco Use Types [...] - 08/29/2024 1:29 PM EDT Tc from [place] staff with [facility] reports Doctors orders and script pharmacy has do not match .Please contact [facility] for medication reconciliation. documented in this encounter Plan of Treatment Upcoming Encounters Date Type Department Care Team (Late st Contact Info) Description 01/08/2025 11:15 AM EDT Office Visit [facility] CHC MED & PEDS 505 [place] [address] Bc Hunter MD 505 [place] [address] documented as of this encounter Visit Diagnoses Not on filedocumented in this encounter Additional Health Concerns Assessment Noted Time PHQ-9 Depression Total Score: 0 09/30/19 24 11:02 AM EDT documented as of this encounter Care Teams Mailing Section Clerk Relationship Specialty Start Date End Date Bc Hunter MD [address] [place] [address] PCP - General Internal Medicine 01/03/19 documented as of this encounter
--- OUTSIDE RECORDS SUMMARY | 2025-01-02 13:44 | XMS_ITS | Encounter Summary ---
Author Organization [employer] Address 75 [facility] 7t [place] [address] Care Team Providers Care Front Counter Clerk Name Role Phone Bc Hunter MD Primary Care Prov ider Encounter Details Date Type Department Care Team ([facility] st Contact Info) Description 12/29/2024 Orders Only GENERIC EXTERNAL DATA DEPARTMENT Provider, [...] [facility] MED & PEDS [address] [place] [address] Bc Hunter MD 505 [place] [address] documented as of this encounter Procedures Procedure Name Priority Date/Time Associated Diagnosis Comments PROTHROMBIN TIME WHOLE BLD POC Routine 12/29/2024 10:47 AM EDT ~PT, ~INR - ANTI COAG CLINIC Routine 12/29/2024 10:47 AM EDT documented in this encounter Results * (ABNORMAL) PROTHROMBIN TIME WHOLE BLD POC (12/29/2024 10:47 AM EDT) Protime 18.5(H) 11.1 - 13.5 sec [facility] 12/29/2024 10:4 7 AM EDT 12/29/2024 10:52 AM EDT us Generic External Data Provider LAB BLOOD ORDERAB LES Final Result [facility] [address] [place] [address] [phone] * (ABNORMAL) ~PT, ~INR - ANTI COAG CLINIC (12/29/2024 10:47 AM EDT) Prothrombin Time INR 1.5(H) 0.9 - 1.1 [facility] Comment:METER #: [id number] TERNATIONAL NORMALIZED RATIO (INR) REFERENCE RANGES Reference RangeFor patients not on anticoagulant therapy: 0.9 - 1.1INR ranges for oral anticoagulanttherapy:For prevention and treatment of venous thrombosis and pulmonary embolism: 2.0 - 3.0For acute myocardial infarction with aspirin therapy: 2.0 - 3.0For acute myocardial infarction without aspirin therapy: 3.0 - 4.0For patients with mechanical prosthetic heart valves: 2.5 - 3.5 12/29/2024 10:4 7 AM EDT 12/29/2024 10:52 AM EDT us Generic External Data Provider LAB BLOOD ORDERAB LES Final Result [facility] [address] [place] [address] [phone] documented in this encounter Visit Diagnoses Not on filedocumented in this encounter Additional Health Concerns Assessment Noted Time PHQ-9 Depression Total Score: 0 09/30/19 24 11:02 AM EDT documented as of this encounter Care Teams Front Counter Clerk Relationship Specialty Start Date End Date Bc Hunter MD [address] [place] [address] PCP - General Internal Medicine 01/03/19 documented as of this encounter
--- OUTSIDE RECORDS SUMMARY | 2025-01-02 13:44 | XMS_ITS | Encounter Summary ---
Author Organization [employer] Address 75 [facility] 7 [place] [address] Care Team Providers Care Padder Name Role Phone Bc Hunter MD Primary Care Prov ider Reason for Visit * Reason Onset Date Comments Referral 12/06/2023 Encounter Details Date Type Department Care Team ([facility] st Contact Info) Description 12/06/2023 Telephone [facility] MEDICINE [address] [place] [address] Bc Hunter MD [address] [place], [place] [phone] Referral Social History Tobacco Use Types Packs/Day [...] 12/06/2023 9:45 AM EDT [facility] calling to report the provider for podiatry has and would need to be referred to another location would like to be seen by Sarkis in the [place] location ifpossible documented in this encounter Plan of Treatment Upcoming Encounters Date Type Department Care Team (Late st Contact Info) Description 01/08/2025 11:15 AM EDT Office Visit [facility] CHC MED & PEDS [address] [place] [address] Bc Hunter MD [address] [place] [address] documented as of this encounter Visit Diagnoses Not on filedocumented in this encounter Additional Health Concerns Assessment Noted Time PHQ-9 Depression Total Score: 0 09/30/19 24 11:02 AM EDT documented as of this encounter Care Teams Padder Relationship Specialty Start Date End Date Bc Hunter MD [address] [place] [address] PCP - General Internal Medicine 01/03/19 documented as of this encounter
--- OUTSIDE RECORDS SUMMARY | 2025-01-02 13:44 | XMS_ITS | Encounter Summary ---
Author Organization [employer] Address 75 [facility] 7 [place] [address] Care Team Providers Care Research Soil Scientist Name Role Phone Bc Hunter MD Primary Care Prov ider Reason for Visit * Reason Onset Date Comments Call Back Request 07/05/2024 Encounter Details Date Type Department Care Team ([facility] st Contact Info) Description 07/05/2024 Telephone [facility] MEDICINE [address] [place] [address] Bc Hunter MD 505 [place], [place] [phone] Call Back Request Social History Tobacco Use [...] 12:18 PM EDT Tc from Kimberly with [facility] requesting a call back regarding the pt Lovenox. Contact Kimberly at [phone] documented in this encounter Plan of Treatment Upcoming Encounters Date Type Department Care Team (Late st Contact Info) Description 01/08/2025 11:15 AM EDT Office Visit [facility] CHC MED & PEDS 505 [place] [address] Bc Hunter MD [address] [place] [address] documented as of this encounter Visit Diagnoses Not on filedocumented in this encounter Additional Health Concerns Assessment Noted Time PHQ-9 Depression Total Score: 0 09/30/19 24 11:02 AM EDT documented as of this encounter Care Teams Research Soil Scientist Relationship Specialty Start Date End Date Bc Hunter MD [address] [place] [address] PCP - General Internal Medicine 01/03/19 documented as of this encounter
--- OUTSIDE RECORDS SUMMARY | 2025-01-02 13:44 | XMS_ITS | Encounter Summary ---
Author Organization [employer] Address 75 [facility] 7t [place] [address] Care Team Providers Care Residential Real Estate Appraiser Name Role Phone Bc Hunter MD Primary Care Prov ider Encounter Details Date Type Department Care Team ([facility] st Contact Info) Description 01/02/2025 Orders Only GENERIC EXTERNAL DATA DEPARTMENT Provider, [...] [facility] MED & PEDS [address] [place] [address] Bc Hunter MD 505 [place] [address] documented as of this encounter Procedures Procedure Name Priority Date/Time Associated Diagnosis Comments PROTHROMBIN TIME WHOLE BLD POC Routine 01/02/2025 11:26 AM EDT ~PT, ~INR - ANTI COAG CLINIC Routine 01/02/2025 11:26 AM EDT documented in this encounter Results * (ABNORMAL) PROTHROMBIN TIME WHOLE BLD POC (01/02/2025 11:26 AM EDT) Protime 31.6(H) 11.1 - 13.5 sec [facility] 01/02/2025 11:2 6 AM EDT 01/02/2025 11:28 AM EDT us Generic External Data Provider LAB BLOOD ORDERAB LES Final Result [facility] [address] [place] [address] [phone] * (ABNORMAL) ~PT, ~INR - ANTI COAG CLINIC (01/02/2025 11:26 AM EDT) Prothrombin Time INR 2.6(H) 0.9 - 1.1 [facility] Comment:METER #: [id number] TERNATIONAL NORMALIZED RATIO (INR) REFERENCE RANGES Reference RangeFor patients not on anticoagulant therapy: 0.9 - 1.1INR ranges for oral anticoagulanttherapy:For prevention and treatment of venous thrombosis and pulmonary embolism: 2.0 - 3.0For acute myocardial infarction with aspirin therapy: 2.0 - 3.0For acute myocardial infarction without aspirin therapy: 3.0 - 4.0For patients with mechanical prosthetic heart valves: 2.5 - 3.5 01/02/2025 11:2 6 AM EDT 01/02/2025 11:28 AM EDT us Generic External Data Provider LAB BLOOD ORDERAB LES Final Result [facility] [address] [place] [address] [phone] documented in this encounter Visit Diagnoses Not on filedocumented in this encounter Additional Health Concerns Assessment Noted Time PHQ-9 Depression Total Score: 0 09/30/19 24 11:02 AM EDT documented as of this encounter Care Teams Residential Real Estate Appraiser Relationship Specialty Start Date End Date Bc Hunter MD [address] [place] [address] PCP - General Internal Medicine 01/03/19 documented as of this encounter
--- OUTSIDE RECORDS SUMMARY | 2025-01-02 13:44 | XMS_ITS | Clinical Summary ---
Author Organization [employer] Address [address] [place] [address] 7[address] [place] [address] Care Team Providers Care Blend Plant Operator Name Role Phone Bc Hunter MD Primary Care Prov ider Allergies No known active allergies Medications tamsulosin (Flomax) 0.4 MG 24 hr capsule TAKE 1 CAPSULE BY MOUTH EVERY DAY IN THE MORNING 90 capsule 03/09/20 23 Active benztropine (Cogentin) 1 MG tablet Take [...] mouth 2 times daily. 04/13/19 20 Active levothyroxine (Synthroid, Levoxyl) 25 MCG tablet TAKE 1 TABLET (25 MCG) BY MOUTH IN THE MORNING 90 tablet 3 11/08/19 24 Active Acetaminophen Extra Strength 500 MG tablet TAKE 1 TABLET (500 MG) BY MOUTH EVERY 6 (SIX) HOURS IF NEEDED FOR MODERATE PAIN. 60 tablet 3 05/23/19 25 Active guaiFENesin (Mucinex) 600 MG 12 hr tabletIndications: Mild chronic obstructive pulmonary disease (CMS/HCC) (HCC),Dyspnea on exertion Take 2 tablets (1,200 mg) by mouth 2 times daily. Do not crush, chew, or split. 10 tablet 06/20/19 25 026 Active Trelegy Ellipta 100-62.5-25 MCG/ACT aerosol powder Inhale 1 puff in the morning. 60 each 3 10/04/19 25 Active Multiple Vitamin (Daily-Stanley Multivitamin) tablet Take 1 tablet by mouth in the morning. TAKE 1 TABLET BY MOUTH EVERY DAY WITH FOOD 90 tablet 3 10/04/19 25 Active warfarin (Coumadin) 2 MG tabletIndications: S/P aortic valve replacement TAKE 1-2 TABLETS EVERY EVENING DIRECTED BY COUMADIN CLINIC 180 tablet 1 10/19/19 25 Active Ventolin HFA 108 (90 Base) MCG/ACT inhaler INHALE 2 PUFFS EVERY 4 HOURS NEEDED 18 g 3 11/01/19 25 Active albuterol 108 (90 Base) MCG/ACT inhalerIndications :COPD exacerbation (CMS/HCC) ([facility]) Inhale 2 puffs every 6 (six) hours if needed for wheezing. 2 puffs every 6 hours for the next 2 days ( 11/24/2024 and 11/25/2024) 18 g 1 11/25/19 25 026 Active guaiFENesin (Mucinex) 600 MG 12 hr tabletIndications: COPD exacerbation (CMS/HCC) ([facility]) Take 2 tablets (1,200 mg) by mouth 2 times daily. Do not crush, chew, or split. 10 tablet 11 11/25/19 25 026 Active magnesium oxide (Mag-Ox) 400 (240 Mg) MG tabletIndications: Mixed hyperlipidemia TAKE 1 TABLET 2 times a day (8 AM and 8 PM) 180 tablet 1 11/25/19 25 Active loratadine (Claritin) 10 MG tabletIndications: Congestion of nasal sinus TAKE 1 TABLET (10 MG) BY MOUTH DAILY IN THE MORNING 90 tablet 2 11/25/19 25 Active levothyroxine (Synthroid, Levoxyl) 25 MCG tabletIndications: Acquired hypothyroidism Take 1 tablet (25 mcg) by mouth before breakfast. 90 tablet 3 11/25/19 25 Active dicyclomine (Bentyl) 20 MG tabletIndications: Irritable bowel syndrome with diarrhea TAKE 1 TABLET BY MOUTH BEFORE BREAKFAST AND BEFORE EVENING MEAL. 180 tablet 1 11/25/19 25 Active atorvastatin (Lipitor) 40 MG tabletIndications: Mixed hyperlipidemia 1 tab at 8 PM 90 tablet 1 11/25/19 25 Active ferrous sulfate 325 (65 Fe) MG tabletIndications: Iron deficiency anemia due to chronic blood loss 1 tab at 5 PM daily 90 tablet 3 11/25/19 25 Active nicotine polacrilex (Nicorette) 4 MG gumIndications:Cig arette nicotine dependence without complication CHEW 1 PIECE OF GUM EVERY 2 HOURS NEEDED FOR SMOKING CESSATION 100 each 11/25/19 25 Active Murine Ear 6.5 % otic solution ADMINISTER 5 DROPS INTO EACH EAR IF NEEDED FOR EAR PAIN (EVERY OTHER WEEK). 30 mL 12/02/19 25 Active ketoconazole (NIZOral) 2 % shampooIndications :Seborrheic dermatitis of scalp APPLY TOPICALLY TWICE WEEKLY, USE TO WASH OUT FLUOCINONIDE OIL IN THE MORNING 3 TIMES WEEKLY DIRECTED 120 mL 2 12/02/19 25 Active atorvastatin (Lipitor) 40 MG tabletIndications: Mixed hyperlipidemia TAKE 1 TABLET BY MOUTH EVERY DAY IN THE EVENING 90 tablet 1 12/02/19 25 Active pantoprazole (ProtoNix) 40 MG EC tabletIndications: Gastroesophageal reflux disease without esophagitis TAKE 1 TABLET BY MOUTH TWICE A DAY IN THE MORNING AND IN THE EVENING 180 tablet 1 12/02/19 25 Active Active Problems Problem Noted Date Diagnosed Date Psychoactive substance abuse 10/02/2024 Cigarette nicotine dependence without complicati on 06/19/2024 Nodule of left lung 04/26/2024 Assessment & Plan (10/02/2024 1:15 PM EDT): Patient does not want to undergo biopsy, will follow up pneumology reccomendations Assessment & Plan (04/26/2024 11:54 AM EST): Will order a follow up LDCT scan, vegetable packer was told to contact pulmonology office Seborrheic dermatitis of scalp 01/26/2023 Assessment & Plan (07/20/2023 8:52 PM EDT): Followed by [facility] Derm clinic Refill of topical ketoconazole [...] valve replacement 04/28/2022 Overview (07/20/2023): Followed by [facility] Coumadin Clinic Assessment & Plan (07/20/2023 8:46 PM EDT): Cardiology consult scheduled 07/20/23 No reported hx of bleeding, no reported chest pain/shortness of breath Discussed with PCP and [facility] Coumadin Clinic (Lori FLETCHER). Plan to bridge pt from Eliquis to Coumadin. May DC Eliquis once Coumadin therapeutic Coumadin dosinmg on Wednesday and Wednesday 4mg all other days of the week Plan: [facility] Coagulation clinic to reach out to penitentiary to schedule INR check and re-start on [...] no contraindications. Stage 3a chronic kidney disease ([facility]/HCC) 2018 Assessment & Plan (10/02/2024 1:14 PM EDT): [...] nodules palpated Mild chronic obstructive pulmonary disease ([facility]/ [facility]) 09/22/2011 Other schizophrenia 09/22/2011 Overview (07/20/2023): Living in [facility] Assessment & Plan (10/02/2024 1:14 PM EDT): [...] Encounters Date Type Department Care Team Description 01/02/2025 Orders Only GENERIC EXTERNAL DATA DEPARTMENT Provider, Generic External Data 12/29/2024 Telephone [facility] PEDIATRICS [address] [place] [address] Bc Hunter MD INR LEVEL 12/29/2024 Orders Only GENERIC EXTERNAL DATA DEPARTMENT Provider, Generic External Data 12/05/2024 Orders Only GENERIC EXTERNAL DATA DEPARTMENT Provider, Generic External Data 11/29/2024 Refill [facility] MED & PEDS [address] [place] [address] Bc Hunter MD Seborrheic dermatitis of scalp; Mixed hyperlipidemia; Gastroesophageal reflux disease without esophagitis 11/29/2024 Refill [facility] MED & PEDS [address] [place] [address] Zafar Richard MD Gastroesophageal reflux disease without esophagitis 11/29/2024 Refill [facility] MED & PEDS [address] [place] [address] Bc Hunter MD Mixed hyperlipidemia 11/28/2024 Orders Only GENERIC EXTERNAL DATA DEPARTMENT Provider, Generic External Data 11/24/2024 2:30 PM EDT Office Visit [facility] MED & PEDS [address] [place] [address] Zafar Richard MD COPD exacerbation ([facility]) (Primary Dx); Cigarette nicotine dependence without complication; Mixed hyperlipidemia; Congestion of nasal sinus; Acquired hypothyroidism; Irritable bowel syndrome with diarrhea; Iron deficiency anemia due to chronic blood loss 11/24/2024 Telephone [facility] MEDICINE [address] [place], [place] [phone] Bc Hunter MD Medication Question 11/24/2024 Refill [facility] MED & PEDS [address] [place] [address] Bc Hunter MD Cigarette nicotine dependence without complication 11/24/2024 Travel 11/24/2024 Orders Only GENERIC EXTERNAL DATA DEPARTMENT Provider, Generic External Data 11/23/2024 Telephone [facility] PEDIATRICS [address] [place] [address] Bc Hunter MD CRITICAL LAB 11/23/2024 Orders Only GENERIC EXTERNAL DATA DEPARTMENT Provider, Generic External Data 11/23/2024 Telephone [facility] CHC MED & PEDS [address] [place] [address] Bc Hunter MD chart prep 11/22/2024 Telephone [facility] MEDICINE [address] [place] [address] Bc Hunter MD Nurse Triage 11/18/2024 Refill [facility] CH[facility] MED & PEDS [address] [place] [address] Bc Hunter MD Mixed hyperlipidemia 11/15/2024 Telephone [facility] MED & PEDS [address] [place] [address] Bc Hunter MD Call Back Request 11/06/2024 Orders Only GENERIC EXTERNAL DATA DEPARTMENT Provider, Generic External Data 10/30/2024 Telephone [facility] CHC MED & PEDS [address] [place] [address] Bc Hunter MD Lab Orders 10/29/2024 Refill [facility] CHC MED & PEDS [address] [place] [address] Bc Hunter MD 10/23/2024 Orders Only GENERIC EXTERNAL DATA DEPARTMENT Provider, Generic External Data 10/17/2024 Refill [facility] CH[facility] MED & PEDS [address] [place] [address] Oralia Mazariegos FNP S/P aortic valve replacement 10/16/2024 Orders Only GENERIC EXTERNAL DATA DEPARTMENT Provider, Generic External Data 10/09/2024 Orders Only GENERIC EXTERNAL DATA DEPARTMENT Provider, Generic External Data 10/03/2024 Orders Only [facility] CHC MED & PEDS [address] [place] [address] Bc Hunter MD Mixed hyperlipidemia 10/02/2024 11:15 AM EDT Office Visit [facility] MED & PEDS [address] [place] [address] Bc Hunter MD Psychoactive substance abuse (CMS/HCC) (Primary Dx); Dietary counseling; Exercise counseling; Other schizophrenia (CMS/HCC); Stage 3a chronic kidney disease (CMS/HCC); Hyperlipemia, mixed; Acquired hypothyroidism; Nodule of left lung 10/02/2024 Telephone [facility] MED & PEDS [address] [place] [address] Bc Hunter MD 10/02/2024 Travel 10/02/2024 Orders [facility] [address] [place] [address] YatesBc Ledezma MD [address] [place] [address] Health Maintenance Due Date Last Done Comments [...] [facility]AG [facility]INIC Routine 01/02/2025 11:26 AM EDT PROTHROMBIN TIME WHOLE BLD POC Routine 12/29/2024 10:47 AM EDT ~PT, ~INR - ANTI COAG CLINIC Routine 12/29/2024 10:47 AM EDT PROTHROMBIN TIME WHOLE BLD POC Routine 12/05/2024 [...] COAG CLINIC Routine 10/02/2024 10:13 AM EDT LIPID PANEL, STANDARD Routine 05/06/2023 11:48 AM EST Hyperlipemia, mixed HEPATITIS C AB W/REFL TO HCV RNA, QN, PCR Routine 07/10/2022 11:31 AM EDT S/P aortic valve replacement Pre-op evaluation from Last 3 Months or Most Recently Relevant to Health Maintenance Results * (ABNORMAL) PROTHROMBIN TIME WHOLE BLD POC (01/02/2025 11:26 AM EDT) Only the most recent of11 resultswithin the time period is included. Protime 31.6(H) 11.1 - 13.5 sec [facility] 01/02/2025 11:2 6 AM EDT 01/02/2025 11:28 AM EDT us Generic External Data Provider LAB BLOOD ORDERAB LES Final Result [facility] [address] [place] [phone] * (ABNORMAL) ~PT, ~INR - ANTI COAG CLINIC (01/02/2025 11:26 AM EDT) Only the most recent of11 resultswithin the time period is included. Prothrombin Time INR 2.6(H) 0.9 - 1.1 [facility] Comment:METER #: [id number] TERNATIONAL NORMALIZED RATIO (INR) REFERENCE RANGES Reference [...] 6 AM EDT 01/02/2025 11:28 AM EDT Generic External Data Provider LAB BLOOD ORDERAB LES Final Result Performing Organization Address [facility]/ZIP Co de Phone Number [facility] [address] [place] [phone] * (ABNORMAL) Prothrombin Time-INR (11/23/2024 11:10 AM EDT) Prothrombin Time 81.2(H) 10.9 - 12.4 SEC [facility] INTERNATIONAL NORM RATIO 7.1(HH) 0.9 - 1.1 [facility] Comment:RESULTS OF INR STEPHENS [...] LES Final Result Performing Organization Address [facility]/ZIP Co de Phone Number [facility] [address] [place] [phone] * T-SPOT??.TB (10/30/2024 1:08 PM EDT) T Spot TB Negative Negative [facility] Comment:A negative test resu [...] as aquantitative test. TS PANEL A 0 [facility] TS PANEL B 1 [facility] Negative Control Passed [facility] Positive Control Passed [facility] Comment:For additional infor mation, please refer tohttp://education.[employer]/faq/PUB088(This link is being provided for informational/educational purposes only.)THIS TEST WAS PERFORMED AT:[employer]/[id number] [place] [address]RSIPRDNPITER CARUSO MD,PHD 10/30/2024 1:08 PM EDT 10/30/2024 2:22 PM EDT us Bc Rascon MD LAB BLOOD ORDERABL ES Final Result [facility] [address] [place] [phone] * Lipid Panel, Standard (05/06/2023 11:48 AM EST) Pathologist [facility] Triglycerides 61 <150 mg/dL [facility] Comment:Desirable Triglyceri de: less than 150 mg/dLBorderline High Triglyceride 150-199 mg/dLHigh Triglyceride: 200-499 mg/dLVery High Triglyceride: greater than or equal to 5OO mg/dL Cholesterol 166 <200 mg/dL [facility] Comment:Desirable Cholestero l: less than 200 mg/dLBorderline High Cholesterol: 200-239 mg/dLHigh Cholesterol: greater than 239 mg/dL LDL Cholesterol Calculated 94 <100 mg/dL [facility] Comment:Desirable LDL: less than 100 mg/dLNear Optimal/Above Optimal LDL: 110- 129 mg/dLBorderline High LDL: 130-159 mg/dLHigh LDL: 160-189 mg/dLVery High LDL: greater than or equal to 190 mg/dL HDL Cholesterol 60 >40 mg/dL [facility] Comment:Desirable HDL: great er than 40 mg/dL Note: This HDL assay may give artificially low results in patients with liver disease. Blood Venous blood specimen / Unknown 05/06/2023 11:48 AM EST 05/06/2023 2:09 PM EST us Bc Rascon MD LAB BLOOD ORDERABL ES Final Result [facility] [address] [place] [phone] * Hepatitis C Antibody with Reflex to HCV, RNA, Quantitative, Real-Time PCR (07/10/2022 11:31 AM EDT) Hepatitis C Antibody NON-REACT DEZ NON-REACT DEZ [employer] [place] [facility] Index 0.09 <1.00 [employer] [place] [facility] Comment: HCV antibody was non-reactive. There is no laboratory evidence of HCV infection. In most cases, no further action is required. However, if recent HCV exposure is suspected, a test for HCV RNA (test code 03165) is suggested. For additional information please refer to http://education.[employer]/faq/PBY62d2 (This link is being provided for informational/ educational purposes only.) Blood Venous blood specimen / Unknown 07/10/2022 11:31 AM EDT 07/10/2022 11:32 AM EDT Narrative [facility] - 07/11/2022 5:06 AM EDT FASTING:NO FASTING: NO Bc Rascon MD LAB BLOOD ORDERABL ES Final Result [facility] [address], [place] [phone] [employer] [facility] [address] [place] [phone] from Last 3 Months or Most Recently Relevant to Health Maintenance Insurance MEDICARE [facility] Care Teams Blend Plant Operator Relationship Specialty Start Date End Date Bc Hunter MD [address] [place] [phone] PCP - General Internal Medicine 01/03/19
--- OUTSIDE RECORDS SUMMARY | 2025-01-02 13:44 | XMS_ITS | Encounter Summary ---
Author Organization [employer] Address [address] [facility] 7 [place] [address] Care Team Providers Care Sweep Molder Name Role Phone Bc Hunter MD Primary Care Prov ider Reason for Visit * Reason Onset Date Comments Med Refill 05/15/2022 Encounter Details Date Type Department Care Team ([facility] st Contact Info) Description 05/15/2022 Telephone [facility] CHC MED & PEDS [address] [place] [address] Bc Hunter MD [address] [place] [address] Med Refill Social History Tobacco Use Types [...] max daily dose. Call placed to [facility] Coumadin clinic. Per [...] If any question please contact amy at [phone] documented in this encounter Plan of Treatment Upcoming Encounters Date Type Department Care Team (Late st Contact Info) Description 01/08/2025 11:15 AM EDT Office Visit [facility] MED & PED[facility] [address] [place] [address] Bc Hunter MD [address] [place] [address] documented as of this encounter Visit Diagnoses Not on filedocumented in this encounter Care Teams Sweep Molder Relationship Specialty Start Date End Date Bc Hunter MD [address] [place] [address] PCP - General Internal Medicine 01/03/19 documented as of this encounter
--- OUTSIDE RECORDS SUMMARY | 2025-01-02 13:44 | XMS_ITS | Encounter Summary ---
Author Organization [email or web address] Address [address] [place] [address] [place] [address] Care Team Providers Care Bundle Clerk Name Role Phone Bc Hunter MD Primary Care Prov ider Reason for Visit * Reason Onset Date Comments Med Refill 09/21/2022 Encounter Details Date Type Department Care Team ([facility] st Contact Info) Description 09/21/2022 Telephone [facility] CHC MED & PEDS [address] [place] [address] Bc Hunter MD [address] [place] [address] Med Refill Social History Tobacco Use Types [...] med refill on Warfarin 1 mg tablet [facility]/pharmacy #[id number] - [place], [place] - [address] [facility] Please sent to documented in this encounter Plan of Treatment Upcoming Encounters Date Type Department Care Team (Late st Contact Info) Description 01/08/2025 11:15 AM EDT Office Visit [facility] P[facility] [address] [place] [address] Bc Hunter MD [address] [place] [address] documented as of this encounter Visit Diagnoses Diagnosis History of Coumadin therapy- Primary S/P aortic valve replacement Heart valve replaced by other means documented in this encounter Additional Health Concerns Assessment Noted Time PHQ-9 Depression Total Score: 0 07/11/19 23 11:26 AM EDT documented as of this encounter Care Teams Bundle Clerk Relationship Specialty Start Date End Date Bc Hunter MD [address] [place] [address] PCP - General Internal Medicine 01/03/19 documented as of this encounter
--- OUTSIDE RECORDS SUMMARY | 2025-01-02 13:44 | XMS_ITS | Encounter Summary ---
Author Organization [email or web address] Address [address] [facility] 7 [place] [address] Care Team Providers Care Well Drill Operator Name Role Phone Bc Hunter MD Primary Care Prov ider Reason for Visit * Reason Comments Med Refill Encounter Details Date Type Department Care Team ([facility] st Contact Info) Description 05/18/2023 Refill [facility] CHC MED & PEDS [address] [place], [place] [phone] Bc Hunter MD [address] [place] [address] Social History Tobacco Use Types Packs/Day Years [...] [facility] MED & PEDS [address] [place] [address] Bc Hunter MD [address] [place] [address] documented as of this encounter Visit Diagnoses Not on filedocumented in this encounter Additional Health Concerns Assessment Noted Time PHQ-9 Depression Total Score: 0 07/11/19 23 11:26 AM EDT documented as of this encounter Care Teams Well Drill Operator Relationship Specialty Start Date End Date Bc Hunter MD [address] [place] [address] PCP - General Internal Medicine 01/03/19 documented as of this encounter
--- OUTSIDE RECORDS SUMMARY | 2025-01-02 13:44 | XMS_ITS | Encounter Summary ---
Author Organization [employer] Address [address] [place] [address] 7 [place] [address] Care Team Providers Care Milk House Worker Name Role Phone Bc Hunter MD Primary Care Prov ider Encounter Details Date Type Department Care Team (Late Contact Info) Description 05/18/2022 Orders Only [facility] MED & PEDS [address] [place] [address] Bc Hunter MD [address] [place], [place] [phone] S/P aortic valve replacement Social History Tobacco [...] [facility] [address] [place] [address] Bc Hunter MD [address] [place], [place] [phone] documented as of this encounter Visit Diagnoses Diagnosis S/P aortic valve replacement Heart valve replaced by other means documented in this encounter Care Teams Milk House Worker Relationship Specialty Start Date End Date Bc Hunter MD [address] [place] [address] PCP - General Internal Medicine 01/03/19 documented as of this encounter
--- OUTSIDE RECORDS SUMMARY | 2025-01-02 13:44 | XMS_ITS | Encounter Summary ---
Author Organization [employer] Address [address] [facility] 7 [place] [address] Care Team Providers Care Field Sales Manager Name Role Phone Bc Hunter MD Primary Care Prov ider Reason for Visit * Reason Onset Date Comments INR LEVEL 12/29/2024 Encounter Details Date Type Department Care Team ([facility] Contact Info) Description 12/29/2024 Telephone [facility] PEDIATRICS [address] [place] [address] Bc Hunter MD [address] [place], [place] [phone] INR LEVEL Social History Tobacco Use Types Packs/Day Years [...] encounter Miscellaneous Notes * Telephone Encounter - Marcela Kaufman RN - 12/29/2024 11:04 AM EDT TC incoming from [facility] with [facility]: Pt INR is 1.5 Pt to increase dose to 6 mg today, 4 mg tomorrow, 4 mg Wednesday and Wednesday. Pt to return for redraw on Wednesday. If concerns contact [facility] at [phone] Danielle FLETCHER aware. Will route to PCP and team nurses to advise. documented in this encounter Plan of Treatment Upcoming Encounters Date Type Department Care Team (Late st Contact Info) Description 01/08/2025 11:15 AM EDT Office Visit [facility] MED & PEDS [address] [place] [address] Bc Hunter MD [address] [place] [address] documented as of this encounter Visit Diagnoses Not on filedocumented in this encounter Additional Health Concerns Assessment Noted Time PHQ-9 Depression Total Score: 0 09/30/19 24 11:02 AM EDT documented as of this encounter Care Teams Field Sales Manager Relationship Specialty Start Date End Date Bc uHnter MD [address] [place] [address] PCP - General Internal Medicine 01/03/19 documented as of this encounter
--- OUTSIDE RECORDS SUMMARY | 2025-01-02 13:44 | XMS_ITS | Encounter Summary ---
Author Organization [employer] Address [address] [place] [address] Care Team Providers Care Metal Mixer Name Role Phone Bc Hunter MD Primary Care Prov ider Reason for Visit * Reason Comments Med Refill Encounter Details Date Type Department Care Team (Late Contact Info) Description 10/25/2022 Refill [facility] MED & PEDS [address] [place] [address] Bc Hunter MD [address] [place] [address] Social History Tobacco Use Types Packs/Day Years [...] [facility] [address] [place], [place] [phone] Bc Hunter MD [address] [place] [address] documented as of this encounter Visit Diagnoses Not on filedocumented in this encounter Additional Health Concerns Assessment Noted Time PHQ-9 Depression Total Score: 0 07/11/19 23 11:26 AM EDT documented as of this encounter Care Teams Metal Mixer Relationship Specialty Start Date End Date Bc Hunter MD [address] [place] [phone] PCP - General Internal Medicine 01/03/19 documented as of this encounter
--- OUTSIDE RECORDS SUMMARY | 2025-01-02 13:44 | XMS_ITS | Encounter Summary ---
Author Organization [employer] Address 75 [facility] 7 [place] [address] Care Team Providers Care Metropolitan Editor Name Role Phone Bc Hunter MD Primary Care Prov ider Reason for Visit * Reason Onset Date Comments Nurse Triage 2024 Encounter Details Date Type Department Care Team ([facility] st Contact Info) Description 2024 Telephone [facility] MEDICINE [address] [place] [address] Bc Hnuter MD [address] [place], [place] [phone] Nurse Triage Social History Tobacco Use Types [...] ANTONIO. pt was seen on 06/14 by [facility] pulmonology on 06/14 and due to some distress was sent to the ER for evaluation. pt diagnosed with Pneumonia and put onantibiotics x5 days. worker states pt eating and drinking, not having any fevers or severe/sustained sob, or other associated symptoms. given appt Wednesday with [facility] at 1:00 for exam [...] 2024 3:49 PM EDT Tc from Patient AUGER SUPERVISOR to report ED visit on : Date: 06/14 Hospital: [facility] Seen for: pneumonia Symptomatic Yes *if yes message should go to Triage Patient advised will forward to team nurse for follow up [phone] pt documented in this encounter Plan of Treatment Upcoming Encounters Date Type Department Care Team (Late st Contact Info) Description 01/08/2025 11:15 AM EDT Office Visit [facility] MED [facility] PED[facility] [address] [place] [address] Bc Hunter MD [address] [place] [address] documented as of this encounter Visit Diagnoses Not on filedocumented in this encounter Additional Health Concerns Assessment Noted Time PHQ-9 Depression Total Score: 0 09/30/19 24 11:02 AM EDT documented as of this encounter Care Teams Metropolitan Editor Relationship Specialty Start Date End Date Bc Hunter MD [address] [place] [address] PCP - General Internal Medicine 01/03/19 documented as of this encounter
--- OUTSIDE RECORDS SUMMARY | 2025-01-02 13:44 | XMS_ITS | Encounter Summary ---
Author Organization [employer] Address [address] [place] [address] Care Team Providers Care Hand Endband Cutter Name Role Phone Bc Hunter MD Primary Care Prov ider Encounter Details Date Type Department Care Team ([facility] Contact Info) Description 02/24/2022 Telephone [facility] MEDICINE [address] [place], [place] [phone] Bc Hunter MD [address] [place], [place] [phone] Social History Tobacco Use Types Packs/Day Years [...] Description 01/08/2025 11:15 AM EDT Office Visit [facility] CHC MED & PEDS [address] [place], [place] [phone] Bc Hunter MD [address] [place], [place] [phone] documented as of this encounter Visit Diagnoses Not on filedocumented in this encounter Care Teams Hand Endband Cutter Relationship Specialty Start Date End Date Bc Hunter MD [address] [place], [place] [phone] PCP - General Internal Medicine 01/03/19 documented as of this encounter
== END 2025-01-02 11:35 | disposition home or self-care (01) ==
LOC: HO.ACS 11:19
PROVIDERS: PCP Internal Medicine; Visit Provider Internal Medicine Medical Oncology
DX: Z79.01 Long term (current) use of anticoagulants (principal)

== ENCOUNTER → 2025-01-02 11:19 | Outpatient (BNVA) | payer MEDICARE, MEDICAID, SELFPAY | PROVIDERS: PCP Internal Medicine; Visit Provider Internal Medicine Medical Oncology | DX: Z51.81 Encounter for therapeutic drug level monitoring (principal); Z79.01 Long term (current) use of anticoagulants | CPT/HCPCS: 85610; 99211 ==

== ENCOUNTER 2025-01-16 | Outpatient (REF) | payer MEDICARE, MEDICAID, SELFPAY ==
--- OUTSIDE RECORDS SUMMARY | 2025-01-16 11:25 | XMS_ITS | Encounter Summary ---
Author Organization [employer] Address 75 [facility] 7 [place] [address] Care Team Providers Care Community Health Education Coordinator Name Role Phone Bc Hunter MD Primary Care Prov ider Encounter Details Date Type Department Care Team (Late st Contact Info) Description 05/18/2022 Orders Only [facility] CHC MED & PEDS 505 [place], [place] [phone] Bc Hunter MD 505 [place], [place] [phone] S/P aortic valve replacement Social History Tobacco [...] means documented in this encounter Care Teams Community Health Education Coordinator Relationship Specialty Start Date End Date Bc Hunter MD [address] [place], [place] [phone] PCP - General Internal Medicine 01/03/19 documented as of this encounter
--- OUTSIDE RECORDS SUMMARY | 2025-01-16 11:25 | XMS_ITS | Encounter Summary ---
Author Organization [employer] Address 75 [facility] 7t [place] [address] Care Team Providers Care Clinical Services Manager Name Role Phone Bc Hunter MD Primary Care Prov ider Reason for Visit * Reason Comments Med Change Request Encounter Details Date Type Department Care Team ([facility] Contact Info) Description 07/19/2023 Refill [facility] CHC MED & PEDS [address] [place] [address] Oralia Mazariegos FNP 505 [place] [address] Social History Tobacco Use Types Packs/Day Years [...] as of this encounter Care Teams Clinical Services Manager Relationship Specialty Start Date End Date Bc Hunter MD [address] [place] [phone] PCP - General Internal Medicine 01/03/19 documented as of this encounter
--- OUTSIDE RECORDS SUMMARY | 2025-01-16 11:25 | XMS_ITS | Encounter Summary ---
Author Organization [employer] Address 75 [facility] 7 [place] [address] Care Team Providers Care Joy Loading Machine Operator Name Role Phone Bc Hunter MD Primary Care Prov ider Reason for Visit * Reason Onset Date Comments Med Refill 05/15/2022 Encounter Details Date Type Department Care Team ([facility] st Contact Info) Description 05/15/2022 Telephone [facility] CHC MED & PEDS [address] [place] [address] Bc Hunter MD [address] [place] [address] Med Refill Social History Tobacco Use Types [...] a max daily dose. Call placed to [facility] Coumadin clinic. Per Della, pt is [...] 11:54 AM EST Tc from Amy with [facility] Pharm[facility] requesting some kinds of specific directions for warfarin (Coumadin) 2 MG tablet If any question please contact amy at [phone] documented in this encounter Plan of Treatment Not on file documented as of this encounter Visit Diagnoses Not on filedocumented in this encounter Care Teams Joy Loading Machine Operator Relationship Specialty Start Date End Date Bc Hunter MD [address] [place] [address] PCP - General Internal Medicine 01/03/19 documented as of this encounter
--- OUTSIDE RECORDS SUMMARY | 2025-01-16 11:25 | XMS_ITS | Encounter Summary ---
Author Organization [employer] Address 75 [facility] 7 [place] [address] Care Team Providers Care Conference Translator Name Role Phone Bc Hunter MD Primary Care Prov ider Reason for Visit * Reason Comments Med Refill Encounter Details Date Type Department Care Team ([facility] Contact Info) Description 01/15/[address] [facility] CHC MED & PEDS [address] [place] [address] Bc Hunter MD [address] [place] [address] Social History Tobacco Use Types Packs/Day Years Used Date Smoking Tobacco: Every Day Cigarettes Depression Answer Date Recorded Patient Health Questionnaire-9 Score 0 01/08/2025 Patient Health Questionnaire-9 Score 0 01/08/2025 Last PHQ-9: Questionnaire Data Not on file 1 Housing Stability Answer Date Recorded What is your housing situation today? I have neto fernandez 01/08/[address] you li ve. Do you have problems with any of the following? None of the above 01/08/2025 Food Insecurity Answer Date Recorded Within the past 12 months, y ou worried that your food would run out before you got money to buy more: Never True 01/08/2025 Within the past 12 months,th e food you bought just didn't last and you didn't have enough money to get more: Never True Transportation Answer Date Recorded In the past 12 months, has l ack of transportation kept you from medical appts, meetings, work or from getting things needed for daily living? No 01/08/2025 Utilities Answer Date Recorded In the past 12 months, has t he electric, gas, oil or water company threatened to shut off services in your home? No 01/08/2025 Depression Answer Date Recorded Patient Health Questionnaire-2 Score 0 01/08/2025 Internet Access Answer Date Recorded Internet Access Q1 Yes 01/08/2025 Internet Access Q2 Not on file 01/08/2025 Sex and Gender Information Value Date Recorded [...] Noted Time PHQ-9 Depression Total Score: 0 01/09/20 25 11:39 AM EDT documented as of this encounter Care Teams Conference Translator Relationship Specialty Start Date End Date Bc Hunter MD [address] [place] [address] PCP - General Internal Medicine 01/03/19 documented as of this encounter
--- OUTSIDE RECORDS SUMMARY | 2025-01-16 11:25 | XMS_ITS | Encounter Summary ---
Author Organization [employer] Address 75 [facility] 7 [place] [address] Care Team Providers Care Accounts Administrator Name Role Phone Bc Hunter MD Primary Care Prov ider Encounter Details Date Type Department Care Team (Late st Contact Info) Description 02/24/2022 Telephone [facility] MEDICINE [address] [place], [place] [phone] Bc Hunter MD [address] [place], [place] [phone] Social History Tobacco Use Types Packs/Day Years [...] on filedocumented in this encounter Care Teams Accounts Administrator Relationship Specialty Start Date End Date Bc Hunter MD [address] [place] [address] PCP - General Internal Medicine 01/03/19 documented as of this encounter
--- OUTSIDE RECORDS SUMMARY | 2025-01-16 11:25 | XMS_ITS | Clinical Summary ---
Author Organization [facility] Address [address] [place] [address] Phone Care Team Providers Care Prisoner Classification Interviewer Name Role Phone Bc Hunter Primary Care Provide r Medical History Medical History Date Comments Heart valve replaced by other means 06/29/2011 DX:Heart valve replaced by other means Asthma 06/29/2011 DX:Asthma Tobacco abuse 06/29/2011 DX:Tobacco abuse Schizophrenia ([facility] V24, CMS/HCC V28) 06/29/2011 DX:Schizophrenia ([facility]) Unspecified hypothyroidism 06/29/2011 DX:Un specified hypothyroidism Chronic [...] Insurance MEDICARE MEDICAID - [place] Care Teams Prisoner Classification Interviewer Relationship Specialty Start Date End Date Bc Hunter [address] [place] [id number] PCP - General Internal Medicine 04/13/24
--- OUTSIDE RECORDS SUMMARY | 2025-01-16 11:25 | XMS_ITS | Encounter Summary ---
Author Organization [employer] Address 75 [facility] 7 [place] [address] Care Team Providers Care Mattress And Foundation Sewer Name Role Phone Bc Hunter MD Primary Care Prov ider Reason for Visit * Reason Onset Date Comments Med Refill 05/12/2022 Encounter Details Date Type Department Care Team ([facility] st Contact Info) Description 05/12/2022 Telephone [facility] MEDICINE [address] [place] [address] Bc Hunter MD 505 [place] [address] Med Refill Social History Tobacco Use Types [...] on filedocumented in this encounter Care Teams Mattress And Foundation Sewer Relationship Specialty Start Date End Date Bc Hunter MD [address] [place] [address] PCP - General Internal Medicine 01/03/19 documented as of this encounter
--- OUTSIDE RECORDS SUMMARY | 2025-01-16 11:25 | XMS_ITS | Encounter Summary ---
Author Organization [employer] Address 75 [facility] 7 [place] [address] Care Team Providers Care Pocketed Spring Machine Operator Name Role Phone Bc Hunter MD Primary Care Prov ider Reason for Visit * Reason Onset Date Comments Nurse Triage 05/26/2023 Encounter Details Date Type Department Care Team ([facility] st Contact Info) Description 05/26/2023 Telephone [facility] MEDICINE [address] [place] [address] Bc Hunter MD [address] [place], [place] [phone] Nurse Triage Social History Tobacco Use Types [...] AM EST Triage call Pt is in long-term, Krystin Sepulveda taking call and consent is signed by Pt for staff to speak . Pt has had some changes. Pt decided to stop all psyche medications and MD Ward Myers, discontinued them. (Stop date unknown) Pt has since that time decreased eating, appetite is poor. Pt weight yesterday at train attendant apt is 173lbs. Pt was said to be around 202lbs regularly. Pt clothes are fitting very loosely now. Pt also wanted to stop coumadin but, train attendant instructed thatwouldn't be good to do so Pt continues to take coumadin as prescribed. Pt is needing to see PCP forevaluation and is given apt with PCP 06/01/23 [...] acuity questions The caller accepted this outcome [phone] documented in this encounter Plan of Treatment Not on file documented as of this encounter Visit Diagnoses Not on filedocumented in this encounter Additional Health Concerns Assessment Noted Time PHQ-9 Depression Total Score: 0 07/11/19 23 11:26 AM EDT documented as of this encounter Care Teams Pocketed Spring Machine Operator Relationship Specialty Start Date End Date Bc Hunter MD [address] [place] [address] PCP - General Internal Medicine 01/03/19 documented as of this encounter
--- OUTSIDE RECORDS SUMMARY | 2025-01-16 11:25 | XMS_ITS | Encounter Summary ---
Author Organization [employer] Address 75 [facility] 7 [place] [address] Care Team Providers Care Project Financial Analyst Name Role Phone Bc Hunter MD Primary Care Prov ider Reason for Visit * Reason Onset Date Comments Nurse Triage 2024 Encounter Details Date Type Department Care Team ([facility] st Contact Info) Description 2024 Telephone [facility] MEDICINE [address] [place] [address] Bc Hunter MD [address] [place], [place] [phone] Nurse Triage Social History Tobacco Use Types [...] Miscellaneous Notes * Telephone Encounter - Clari Friedn RN - 2024 4:21 PM EDT called pt to triage, spoke to group leader semiconductor testing, ANTONIO. pt was seen on 06/14 by [facility] pulmonology on 06/14 and due to some distress was sent to the ER for evaluation. pt diagnosed with Pneumonia and put onantibiotics x5 days. worker states pt eating and drinking, not having any fevers or severe/sustained sob, or other associated symptoms. given appt Wednesday with [facility] at 1:00 for exam and [...] 2024 3:49 PM EDT Tc from Patient MANAGER BUSINESS INFORMATION to report ED visit on : Date: 06/14 Hospital: [facility] Seen for: pneumonia Symptomatic Yes *if yes message should go to Triage Patient advised will forward to team nurse for follow up [phone] pt documented in this encounter Plan of Treatment Not on file documented as of this encounter Visit Diagnoses Not on filedocumented in this encounter Additional Health Concerns Assessment Noted Time PHQ-9 Depression Total Score: 0 09/30/19 24 11:02 AM EDT documented as of this encounter Care Teams Project Financial Analyst Relationship Specialty Start Date End Date Bc Hunter MD [address] [place] [address] PCP - General Internal Medicine 01/03/19 documented as of this encounter
--- OUTSIDE RECORDS SUMMARY | 2025-01-16 11:25 | XMS_ITS | Encounter Summary ---
Author Organization [employer] Address 75 [facility] 7 [place] [address] Care Team Providers Care Pig Conveyor Operator Name Role Phone Bc Hunter MD Primary Care Prov ider Reason for Visit * Reason Onset Date Comments Call Back Request 11/15/2024 Encounter Details Date Type Department Care Team ([facility] Contact Info) Description 11/15/2024 Telephone [facility] CHC MED & PEDS [address] [place] [address] Bc Hunter MD [address] [place] [address] Call Back Request Social History Tobacco Use [...] 12:04 PM EDT TC to Olga with [facility]. Stated needs clarification to have claritin scheduled, have atorvastatin scheduled for HS and have FeSulfate scheduled for PM. Advised will fax over telephone order form and have pcp update order to [facility]. Fax sent to [facility] with confirmation. * Telephone Encounter - Jenn Krishnamurthy - 11/15/2024 11:06 AM EDT Tc from Olga Cage at [facility] requesting a call back to discuss medication labels Contact Olga at [phone] documented in this encounter Plan of Treatment [...] documented as of this encounter Care Teams Pig Conveyor Operator Relationship Specialty Start Date End Date Bc Hunter MD [address] [place] [address] PCP - General Internal Medicine 01/03/19 documented as of this encounter
--- OUTSIDE RECORDS SUMMARY | 2025-01-16 11:25 | XMS_ITS | Encounter Summary ---
Author Organization [employer] Address 75 [facility] 7 [place] [address] Care Team Providers Care Valve Lapper Name Role Phone Bc Hunter MD Primary Care Prov ider Reason for Visit * Reason Comments Med Refill Encounter Details Date Type Department Care Team ([facility] st Contact Info) Description 05/18/2023 Refill [facility] CHC MED & PEDS [address] [place] [address] Bc Hunter MD [address] [place] [address] Social History Tobacco Use Types Packs/Day Years [...] documented as of this encounter Care Teams Valve Lapper Relationship Specialty Start Date End Date Bc Hunter MD [address] [place] [address] PCP - General Internal Medicine 01/03/19 documented as of this encounter
--- OUTSIDE RECORDS SUMMARY | 2025-01-16 11:25 | XMS_ITS | Encounter Summary ---
Author Organization [employer] Address 75 [facility] 7 [place] [address] Care Team Providers Care Bridge Teacher Name Role Phone Bc Hunter MD Primary Care Prov ider Reason for Visit * Reason Onset Date Comments Referral 12/06/2023 Encounter Details Date Type Department Care Team ([facility] st Contact Info) Description 12/06/2023 Telephone [facility] MEDICINE [address] [place] [address] Bc Hunter MD [address] [place], [place] [phone] Referral Social History Tobacco Use Types Packs/Day [...] 12/06/2023 9:45 AM EDT Tc from patients senior care calling to report the provider for podiatry has and would need to be referred to another location would like to be seen by S[place] if[place] documented in this encounter Plan of Treatment Not on file documented as of this encounter Visit Diagnoses Not on filedocumented in this encounter Additional Health Concerns Assessment Noted Time PHQ-9 Depression Total Score: 0 09/30/19 24 11:02 AM EDT documented as of this encounter Care Teams Bridge Teacher Relationship Specialty Start Date End Date Bc Hunter MD [address] [place] [address] PCP - General Internal Medicine 01/03/19 documented as of this encounter
--- OUTSIDE RECORDS SUMMARY | 2025-01-16 11:25 | XMS_ITS | Encounter Summary ---
Author Organization [employer] Address 75 [facility] 7 [place] [address] Care Team Providers Care Train Dispatcher Name Role Phone Bc Hunter MD Primary Care Prov ider Reason for Visit * Reason Onset Date Comments Medication Question 08/29/2024 Encounter Details Date Type Department Care Team ([facility] st Contact Info) Description 08/29/2024 Telephone [facility] MEDICINE [address] [place] [address] Bc Hunter MD 505 [place], [place] [phone] Medication Question Social History Tobacco Use Types [...] Miscellaneous Notes * Telephone Encounter - Rubén Flash - 08/29/2024 1:29 PM EDT Tc from [place] staff with alf reports Doctors orders and script pharmacy has do not match .Please contact [facility] for medication reconciliation. documented in this encounter Plan of Treatment Not on file documented as of this encounter Visit Diagnoses Not on filedocumented in this encounter Additional Health Concerns Assessment Noted Time PHQ-9 Depression Total Score: 0 09/30/19 24 11:02 AM EDT documented as of this encounter Care Teams Train Dispatcher Relationship Specialty Start Date End Date Bc Hunter MD [address] [place] [id number] PCP - General Internal Medicine 01/03/19 documented as of this encounter
--- OUTSIDE RECORDS SUMMARY | 2025-01-16 11:25 | XMS_ITS | Encounter Summary ---
Author Organization [employer] Address [address] [place] [address] [place] [address] Care Team Providers Care Business Continuity Global Director Name Role Phone Bc Hunter MD Primary Care Prov ider Reason for Visit * Reason Onset Date Comments Med Refill 09/21/2022 Encounter Details Date Type Department Care Team ([facility] st Contact Info) Description 09/21/2022 Telephone [facility] CHC MED & PEDS [address] [place] [address] Bc Hunter MD [address] [place] [address] Med Refill Social History Tobacco Use Types [...] 09/23/2022 8:28 AM EDT Pt managed by [facility] coumadin clinic. Last INR of 3.1 noted 09/17/22. Will forward request for Rx to covering provider to review. * Telephone Encounter - Ping Nettles - 09/21/2022 10:39 AM EDT Tc from pt requesting med refill on Warfarin 1 mg tablet [facility]/pharmacy #[id number] - [place], [place] - [address] [place] [address] Please sent to documented in this encounter [...] as of this encounter Care Teams Business Continuity Global Director Relationship Specialty Start Date End Date Bc Hunter MD [address] [place] [address] PCP - General Internal Medicine 01/03/19 documented as of this encounter
--- OUTSIDE RECORDS SUMMARY | 2025-01-16 11:25 | XMS_ITS | Encounter Summary ---
Author Organization [employer] Address [address] [facility] 7t [place] [address] Care Team Providers Care Log Tumbler Name Role Phone Bc Hunter MD Primary Care Prov ider Encounter Details Date Type Department Care Team ([facility] st Contact Info) Description 01/16/2025 Orders Only GENERIC EXTERNAL DATA DEPARTMENT Provider, [...] Comments PROTHROMBIN TIME WHOLE BLD POC Routine 01/16/2025 10:10 AM EDT ~PT, ~INR - ANTI COAG CLINIC Routine 01/16/2025 10:10 AM EDT documented in this encounter Results * (ABNORMAL) PROTHROMBIN TIME WHOLE BLD POC (01/16/2025 10:10 AM EDT) Protime 34.1(H) 11.1 - 13.5 sec [facility] 01/16/2025 10:1 0 AM EDT 01/16/2025 10:12 AM EDT us Generic External Data Provider LAB BLOOD ORDERAB LES Final Result Performing Organization Address City/State/[facility] Co de Phone Number [facility] [address] [place] [phone] * (ABNORMAL) ~PT, ~INR - ANTI COAG CLINIC (01/16/2025 10:10 AM EDT) Prothrombin Time INR 2.8(H) 0.9 - 1.1 [facility] Comment:METER #: [id number] TERNATIONAL NORMALIZED RATIO (INR) REFERENCE RANGES Reference RangeFor patients not on anticoagulant therapy: 0.9 - 1.1INR ranges for oral anticoagulanttherapy:For prevention and treatment of venous thrombosis and pulmonary embolism: 2.0 - 3.0For acute myocardial infarction with aspirin therapy: 2.0 - 3.0For acute myocardial infarction without aspirin therapy: 3.0 - 4.0For patients with mechanical prosthetic heart valves: 2.5 - 3.5 01/16/2025 10:1 0 AM EDT 01/16/2025 10:12 AM EDT us Generic External Data Provider LAB BLOOD ORDERAB LES Final Result [facility] [address] [place] [address] [phone] documented in this encounter Visit Diagnoses Not on filedocumented in this encounter Additional Health Concerns Assessment Noted Time PHQ-9 Depression Total Score: 0 01/09/20 25 11:39 AM EDT documented as of this encounter Care Teams Log Tumbler Relationship Specialty Start Date End Date Bc Hunter MD [address] [place] [phone] PCP - General Internal Medicine 01/03/19 documented as of this encounter
--- OUTSIDE RECORDS SUMMARY | 2025-01-16 11:25 | XMS_ITS | Encounter Summary ---
Author Organization [email or web address] Address [address] [facility] 7 [place] [address] Care Team Providers Care Event Set Up Specialist Name Role Phone Bc Hunter MD Primary Care Prov ider Encounter Details Date Type Department Care Team (Late st Contact Info) Description 09/20/2023 Orders Only [facility] & PEDS [address] [place], [place] [phone] Bc Hunter MD [address] [place] [address] Social History Tobacco Use Types Packs/Day Years [...] documented as of this encounter Care Teams Event Set Up Specialist Relationship Specialty Start Date End Date Bc Hunter MD [address] [place] [address] PCP - General Internal Medicine 01/03/19 documented as of this encounter
--- OUTSIDE RECORDS SUMMARY | 2025-01-16 11:25 | XMS_ITS | Encounter Summary ---
Author Organization [employer] Address [address] [facility] 7 [place] [address] Care Team Providers Care Color Printer Operator Name Role Phone Bc Hunter MD Primary Care Prov ider Reason for Visit * Reason Comments Med Refill Encounter Details Date Type Department Care Team ([facility] st Contact Info) Description 08/06/2024 Refill [facility] [address] [place] [address] Bc Hunter MD [address] [place], [place] [phone] Social History Tobacco Use Types Packs/Day Years [...] documented as of this encounter Care Teams Color Printer Operator Relationship Specialty Start Date End Date Bc Hunter MD [address] [place] [phone] PCP - General Internal Medicine 01/03/19 documented as of this encounter
--- OUTSIDE RECORDS SUMMARY | 2025-01-16 11:25 | XMS_ITS | Encounter Summary ---
Author Organization [employer] Address [address] [facility] 7 [place] [address] Care Team Providers Care Carbon Brushes Assembler Name Role Phone Bc Hunter MD Primary Care Prov ider Reason for Visit * Reason Onset Date Comments Nurse Triage 11/22/2024 Encounter Details Date Type Department Care Team ([facility] st Contact Info) Description 11/22/2024 Telephone [facility]ICINE [address] [place] [address] Bc Hunter MD [address] [place], [place] [phone] Nurse Triage Social History Tobacco Use Types [...] EDT Triage call to Krystin, staff at [facility] where Pt resides. Pt is in presence [...] be seen by provider. Offered apt in [facility] tomorrow morning 915am but, unable to go at that time. Pt is given ASK apt 11/24/[address]Dr. Richard in [facility]. Pt is offered to come to [facility] in [facility] but, declined today, Krystin will considerthis if Pt gets worse before 11/24 apt. [facility] apt will be canceled if [...] caller accepted this outcome. Contact Krystin at [phone] documented in this encounter Plan of Treatment Not on file documented as of this encounter Visit Diagnoses Not on filedocumented in this encounter Additional Health Concerns Assessment Noted Time PHQ-9 Depression Total Score: 0 09/30/19 24 11:02 AM EDT documented as of this encounter Care Teams Carbon Brushes Assembler Relationship Specialty Start Date End Date Bc Hunter MD [address] [place] [phone] PCP - General Internal Medicine 01/03/19 documented as of this encounter
--- OUTSIDE RECORDS SUMMARY | 2025-01-16 11:25 | XMS_ITS | Encounter Summary ---
Author Organization [employer] Address [address] [place] [address] [place] [address] Care Team Providers Care Mechanical Design Engineer Products Name Role Phone Bc Hunter MD Primary Care Prov ider Reason for Visit * Reason Comments Med Refill Encounter Details Date Type Department Care Team ([facility] st Contact Info) Description 10/25/2022 Refill [facility] MED & PEDS [address] [place], [place] [phone] Bc Hunter MD 505 [place], [place] [phone] Social History Tobacco Use Types Packs/Day Years [...] documented as of this encounter Care Teams Mechanical Design Engineer Products Relationship Specialty Start Date End Date Bc Hunter MD [address] [place] [address] PCP - General Internal Medicine 10/15/19 documented as of this encounter
--- OUTSIDE RECORDS SUMMARY | 2025-01-16 11:25 | XMS_ITS | Encounter Summary ---
Author Organization [employer] Address [address] [facility] 7 [place] [address] Care Team Providers Care Heritage Consultant Name Role Phone Bc Hunter MD Primary Care Prov ider Reason for Visit * Reason Onset Date Comments Call Back Request 07/05/2024 Encounter Details Date Type Department Care Team ([facility] st Contact Info) Description 07/05/[address] [facility] [address] [place] [address] Bc Hunter MD 505 [place], [place] [phone] Call Back Request Social History Tobacco Use [...] 12:18 PM EDT Tc from Kimberly with [facility] requesting a call back regarding the pt Lovenox. Contact Kimberly at [phone] documented in this encounter Plan of Treatment Not on file documented as of this encounter Visit Diagnoses Not on filedocumented in this encounter Additional Health Concerns Assessment Noted Time PHQ-9 Depression Total Score: 0 09/30/19 24 11:02 AM EDT documented as of this encounter Care Teams Heritage Consultant Relationship Specialty Start Date End Date Bc Hunter MD [address] [place] [phone] PCP - General Internal Medicine 01/03/19 documented as of this encounter
--- OUTSIDE RECORDS SUMMARY | 2025-01-16 11:25 | XMS_ITS | Clinical Summary ---
Author Organization [employer] Address [address] [place] [address] 7t [place] [address] Care Team Providers Care Radiotelegraph Operator Servicer Name Role Phone Bc Hunter MD [...] (90 Base) MCG/ACT inhalerIndications :COPD exacerbation (CMS/HCC) ([facility]) Inhale 2 puffs every 6 (six) hours if needed for wheezing. 2 puffs every 6 hours for the next 2 days ( 11/24/2024 and 11/25/2024) 18 g 1 11/25/19 25 026 Active guaiFENesin (Mucinex) 600 MG 12 hr tabletIndications: COPD exacerbation (CMS/HCC) ([facility]) Take 2 tablets (1,200 mg) by mouth [...] of left lung 04/26/2024 Assessment & Plan (01/08/2025 12:41 PM EDT): Told to follow up with [employer], previously refused undergoing biopsy Assessment & Plan (10/02/2024 1:15 PM EDT): Patient does not want to undergo biopsy, will follow up pneumology reccomendations Assessment & Plan (04/26/2024 11:54 AM EST): Will order a follow up LDCT scan, office professionals was told to contact pulmonology office Seborrheic dermatitis of scalp 01/26/2023 Assessment & Plan (07/20/2023 8:52 PM EDT): Followed by [facility] Derm clinic Refill of topical [...] back Hyperlipemia, mixed 07/20/2022 Assessment & Plan (01/08/2025 12:38 PM EDT): On statin therapy, new labs ordered for guidance Assessment & Plan (10/02/2024 1:13 PM EDT): [...] Iron deficiency anemia 07/20/2022 Assessment & Plan (01/08/2025 12:39 PM EDT): Will order new labs for guidance Assessment & Plan (09/30/2023 11:42 AM EDT): [...] valve replacement 04/28/2022 Overview (07/20/2023): Followed by [facility] Coumadin Clinic Assessment & Plan (07/20/2023 8:46 PM EDT): Cardiology consult scheduled 07/20/23 No reported hx of bleeding, no reported chest pain/shortness of breath Discussed with PCP and [facility] Coumadin Clinic (Lori FLETCHER). Plan to bridge pt from Eliquis to Coumadin. May DC Eliquis once Coumadin therapeutic Coumadin dosinmg on Wednesday and Wednesday 4mg all other days of the week Plan: [facility] Coagulation clinic to reach out to care home to schedule INR check and re-start on [...] no contraindications. Stage 3a chronic kidney disease ([facility]/HCC) 2018 Assessment & Plan (10/02/2024 1:14 PM EDT): Followed by nephrology, no changes will be made Assessment & Plan (09/30/2023 11:41 AM EDT): Followed by nephrology, his renal function has remained stable, continue bp control, no changes will be made Assessment & Plan (10/28/2022 12:08 PM EDT): Followed by nephrology Hypothyroidism 09/22/2011 Assessment & Plan (01/08/2025 12:39 PM EDT): On oral replacement, new labs ordered for guidance Assessment & Plan (10/02/2024 1:13 PM EDT): Clinically euthyroid, will order new labs for guidance of therapy Assessment & Plan (09/30/2023 11:42 AM EDT): On levothyroxine, has remained clinically and chemically euthyroid, no changes will be made Assessment & Plan (05/06/2023 12:59 PM EST): Clinically euthyroid will order new labs for guidance of therapy, no nodules palpated Mild chronic obstructive pulmonary disease (CMS/ HCC) 09/22/2011 Assessment & Plan (01/08/2025 12:41 PM EDT): Symptoms resolved, smoking cessation discussed, follow up with [employer] Other schizophrenia 09/22/2011 Overview (07/20/2023): Living in [...] Encounters Date Type Department Care Team Description 01/16/2025 Orders Only GENERIC EXTERNAL DATA DEPARTMENT Provider, Generic External Data 01/15/2025 Refill [facility] PEDS [address] [place] [address] Bc Hunter MD 01/08/2025 11:15 AM EDT Office Visit [facility] [address] [place] [address] Bc Hunter MD Hyperlipemia, mixed (Primary Dx); Other iron deficiency anemia; Acquired hypothyroidism; Mild chronic obstructive pulmonary disease (CMS/HCC) (HCC); Nodule of left lung 01/08/2025 Travel 01/04/2025 Telephone [facility]ED[facility] [address] [place] [address] Bc Hunter MD chart prep 01/02/2025 Orders Only GENERIC EXTERNAL DATA DEPARTMENT Provider, Generic External Data 12/29/2024 Telephone [facility] [address] [place] [address] Bc Hunter MD INR LEVEL 12/29/2024 Orders Only GENERIC EXTERNAL DATA DEPARTMENT Provider, Generic External Data 12/05/2024 Orders Only GENERIC EXTERNAL DATA DEPARTMENT Provider, Generic External Data 11/29/2024 Refill [facility] [address] [place] [address] Bc Hunter MD Seborrheic dermatitis of scalp; Mixed hyperlipidemia; Gastroesophageal reflux disease without esophagitis 11/29/2024 Refill [facility] [address] [place] [address] Zafar Richard MD Gastroesophageal reflux disease without esophagitis 11/29/2024 Refill [facility] [address] [place] [address] Bc Hunter MD Mixed hyperlipidemia 11/28/2024 Orders Only GENERIC EXTERNAL DATA DEPARTMENT Provider, Generic External Data 11/24/2024 2:30 PM EDT Office Visit [facility] [address] [place] [address] Zafar Richard MD COPD exacerbation ([facility]) (Primary Dx); Cigarette nicotine dependence without complication; Mixed hyperlipidemia; Congestion of nasal sinus; Acquired hypothyroidism; Irritable bowel syndrome with diarrhea; Iron deficiency anemia due to chronic blood loss 11/24/2024 Telephone [facility] [address] [place] [address] Bc Hunter MD Medication Question 11/24/2024 Refill [facility] [address] [place] [address] Bc Hunter MD Cigarette nicotine dependence without complication 11/24/2024 Travel 11/24/2024 Orders Only GENERIC EXTERNAL DATA DEPARTMENT Provider, Generic External Data 11/23/2024 Telephone [facility] [address] [place] [address] Bc Hunter MD CRITICAL LAB 11/23/2024 Orders Only GENERIC EXTERNAL DATA DEPARTMENT Provider, Generic External Data 11/23/2024 Telephone [facility] [address] [place] [address] Bc Hunter MD chart prep 11/22/2024 Telephone [facility] [address] [place] [address] Bc Hunter MD Nurse Triage 11/18/2024 Refill [facility] [address] [place] [address] Bc Hunter MD Mixed hyperlipidemia 11/15/2024 Telephone [facility] [address] [place] [address] Bc Hunter MD Call Back Request 11/06/2024 Orders Only GENERIC EXTERNAL DATA DEPARTMENT Provider, Generic External Data 10/30/2024 Telephone [facility] [address] [place] [address] Bc Hunter MD Lab Orders 10/29/2024 Refill [facility] [address] [place] [address] Bc Hunter MD 10/23/2024 Orders Only GENERIC EXTERNAL DATA DEPARTMENT Provider, Generic External Data 10/17/2024 Refill [facility] [address] [place] [address] Oralia Mazariegos FNP S/P aortic valve replacement [...] Sign Reading Time Taken Comments Blood Pressure 131/69 01/08/2025 11:37 AM EDT Pulse 84 01/08/2025 11:37 AM EDT Temperature 37.1 C (98.7 F) 01/08/2025 11:37 AM EDT Respiratory Rate 20 01/08/2025 11:37 AM EDT Oxygen Saturation 99% 11/24/2024 2:43 PM EDT Inhaled Oxygen Concentration - - Weight 78 kg (172 lb) 11/24/2024 2:43 PM EDT Height 177.8 cm (5' 10 ) 01/08/2025 11:37 AM EDT Body Mass Index 24.68 11/24/2024 2:43 PM EDT Plan of Treatment Health Maintenance [...] PCV20 or PCV21) 03/17/2024 03/17/2019, 11/22/2014, 06/17/2000 COVID-19 Vaccine (5 - season) 2024 01/14/2024, 01/09/2021, 05/16/2020, Additional history exists Influenza Vaccine (#1) 2024 , 01/06/2022, 12/11/2020, Additional history exists Alcohol/Substance Use Screening 04/26/2025 04/26/2024 Tobacco Screening 11/24/2025 11/24/2024 Depression Screening 01/08/2026 01/08/2025, 01/09/20 SDOH Screening 01/08/2026 01/08/2025 Lipid Panel 05/06/2028 05/06/2023, 07/10/2022 DTaP/Tdap/Td Vaccines [...] COAG CLINIC Routine 01/16/2025 10:10 AM EDT PROTHROMBIN TIME WHOLE BLD POC Routine 01/02/2025 [...] COAG CLINIC Routine 10/16/2024 10:56 AM EDT LIPID PANEL, STANDARD Routine 05/06/2023 11:48 AM EST Hyperlipemia, mixed HEPATITIS C AB W/REFL TO HCV RNA, QN, PCR Routine 07/10/2022 11:31 AM EDT S/P aortic valve replacement Pre-op evaluation from Last 3 Months or Most Recently Relevant to Health Maintenance Results * (ABNORMAL) PROTHROMBIN TIME WHOLE BLD POC (01/16/2025 10:10 AM EDT) Only the most recent of10 resultswithin the time period is included. Protime 34.1(H) 11.1 - 13.5 sec [facility] 01/16/2025 10:1 0 AM EDT 01/16/2025 10:12 AM EDT us Generic External Data Provider LAB BLOOD ORDERAB LES Final Result [facility] [address] [place] [phone] * (ABNORMAL) ~PT, ~INR - ANTI COAG CLINIC (01/16/2025 10:10 AM EDT) Only the most recent of10 resultswithin the time period is included. Prothrombin Time INR 2.8(H) 0.9 - 1.1 [facility] Comment:METER #: [id number] TERNATIONAL NORMALIZED RATIO (INR) REFERENCE RANGES Reference [...] ORDERAB LES Final Result Performing Organization Address City/[facility]/ZIP Co de Phone Number [facility] [address] [place] [phone] * (ABNORMAL) Prothrombin Time-INR (11/23/2024 11:10 AM EDT) Prothrombin Time 81.2(H) 10.9 - 12.4 SEC [facility] INTERNATIONAL NORM RATIO 7.1(HH) 0.9 - 1.1 [facility] Comment:RESULTS OF INR STEPHENS D [...] LAB BLOOD ORDERAB LES Final Result [facility] [address] [place] [phone] * T-SPOT??.TB (10/30/2024 1:08 PM EDT) T Spot TB Negative Negative [facility] Comment:A negative test resu lt [...] as aquantitative test. TS PANEL A 0 [facility] TS PANEL B 1 [facility] Negative Control Passed [facility] Positive Control Passed [facility] Comment:For additional infor vasu, please refer tohttp://education.[employer].Sococo/faq/MBT921(This link is being provided for informational/educational purposes only.)THIS TEST WAS PERFORMED AT:[employer]/[facility] [place] [address]XAXCJOHPITER CARUSO MD,PHD 10/30/2024 1:08 PM EDT 10/30/2024 2:22 PM EDT us Bc Rascon MD LAB BLOOD ORDERABL ES Final Result [facility] [address] [place] [phone] [phone] * Lipid Panel, Standard (05/06/2023 11:48 AM EST) Triglycerides 61 <150 mg/dL [facility] Comment:Desirable Triglyceri de: less than 150 mg/dLBorderline High Triglyceride 150-199 mg/dLHigh Triglyceride: 200-499 mg/dLVery High Triglyceride: greater than or equal to 5OO mg/dL Cholesterol 166 <200 mg/dL [facility] Comment:Desirable Cholestero l: less than 200 mg/dLBorderline High Cholesterol: 200-239 mg/dLHigh Cholesterol: greater than 239 mg/dL LDL Cholesterol Calculated 94 <100 mg/dL [facility] Comment:Desirable LDL: less than 100 mg/dLNear Optimal/Above Optimal LDL: 110- 129 mg/dLBorderline High LDL: 130-159 mg/dLHigh LDL: 160-189 mg/dLVery High LDL: greater than or equal to 190 mg/dL HDL Cholesterol 60 >40 mg/dL [facility] Comment:Desirable HDL: great er than 40 mg/dL Note: This HDL assay may give artificially low results in patients with liver disease. Blood Venous blood specimen / Unknown 05/06/2023 11:48 AM EST 05/06/2023 2:09 PM EST Bc Rascon MD LAB BLOOD ORDERABL ES Final Result [facility] [address] [place] [phone] [phone] * Hepatitis C Antibody with Reflex to HCV, RNA, Quantitative, Real-Time PCR (07/10/2022 11:31 AM EDT) Hepatitis C Antibody NON-REACT DEZ NON-REACT DEZ [facility] Index 0.09 <1.00 [facility] Comment: HCV antibody was non-reactive. There is no laboratory evidence of HCV infection. In most cases, no further action is required. However, if recent HCV exposure is suspected, a test for HCV RNA (test code 82550) is suggested. For additional information please refer to http://education.[employer]/faq/MLG45c2 (This link is being provided for informational/ educational purposes only.) Blood Venous blood specimen / Unknown 07/10/2022 11:31 AM EDT 07/10/2022 11:32 AM EDT Narrative [facility] - 07/11/2022 5:06 AM EDT FASTING:NO FASTING: NO Bc Rascon MD LAB BLOOD ORDERABL ES Final Result [facility] [address], [place] [address] [employer] [facility] [address] [place] [phone] from Last 3 Months or Most Recently Relevant to Health Maintenance Insurance MEDICARE [facility] STANDARD Care Teams Radiotelegraph Operator Servicer Relationship Specialty Start Date End Date Bc Hunter MD [address] [place] [phone] PCP - General Internal Medicine 01/03/19
--- OUTSIDE RECORDS SUMMARY | 2025-02-13 12:17 | XMS_ITS | Encounter Summary ---
Author Organization [employer] Address 75 [facility] 7 [place] [address] Care Team Providers Care Food Service Hotel Runner Name Role Phone Bc Hunter MD Primary Care Prov ider Encounter Details Date Type Department Care Team (Late st Contact Info) Description 09/20/2023 Orders Only [facility] CHC MED & PEDS 505 [place], [place] [phone] Bc Hunter MD 505 [place] [address] Social History Tobacco Use Types Packs/Day Years [...] 9:00 AM EST Office Visit [facility] MED & PEDS 505 [place] [address] Bc Hunter MD 505 [place] [address] documented as of this encounter Visit Diagnoses Not on filedocumented in this encounter Additional Health Concerns Assessment Noted Time PHQ-9 Depression Total Score: 0 07/11/19 23 11:26 AM EDT documented as of this encounter Care Teams Food Service Hotel Runner Relationship Specialty Start Date End Date Bc Hunter MD 505 [place] [address] PCP - General Internal Medicine 01/03/19 documented as of this encounter
--- OUTSIDE RECORDS SUMMARY | 2025-02-13 12:17 | XMS_ITS | Clinical Summary ---
Author Organization [facility] Address 175 [place] [address] Phone Care Team Providers Care Vp Of Technology Name Role Phone Bc Hunter Primary Care Provide r Medical History Medical History Date Comments Heart valve replaced by other means 06/29/2011 DX:Heart valve replaced by other means Asthma 06/29/2011 DX:Asthma Tobacco abuse 06/29/2011 DX:Tobacco abuse Schizophrenia ([facility] V24, CMS/HCC V28) 06/29/2011 DX:Schizophrenia ([facility]) Unspecified hypothyroidism 06/29/2011 DX:Un specified hypothyroidism [...] Insurance MEDICARE MEDICAID - [place] Care Teams Vp Of Technology Relationship Specialty Start Date End Date Bc Hunter [address] [place] [id number] PCP - General Internal Medicine 04/13/24
--- OUTSIDE RECORDS SUMMARY | 2025-02-13 12:18 | XMS_ITS | Encounter Summary ---
Author Organization [employer] Address 75 [facility] 7 [place] [address] Care Team Providers Care Pocket Marker Name Role Phone Bc Hunter MD Primary Care Prov ider Reason for Visit * Reason Onset Date Comments Med Refill 05/12/2022 Encounter Details Date Type Department Care Team ([facility] st Contact Info) Description 05/12/2022 Telephone [facility] MEDICINE 230 [place] [address] Bc Hunter MD 505 [place] [address] Med Refill Social History Tobacco Use Types [...] Description 03/08/2025 9:00 AM EST Office Visit [facility] CHC MED & PEDS 505 [place] [address] Bc Hunter MD 505 [place] [address] documented as of this encounter Visit Diagnoses Not on filedocumented in this encounter Care Teams Pocket Marker Relationship Specialty Start Date End Date Bc Hunter MD 505 [place] [address] PCP - General Internal Medicine 01/03/19 documented as of this encounter
--- OUTSIDE RECORDS SUMMARY | 2025-02-13 12:18 | XMS_ITS | Encounter Summary ---
Author Organization [email or web address] Address 75 [facility] 7 [place] [address] Care Team Providers Care Perinatology Physician Name Role Phone Bc Hunter MD Primary Care Prov ider Reason for Visit * Reason Onset Date Comments Referral 12/06/2023 Encounter Details Date Type Department Care Team ([facility] st Contact Info) Description 12/06/2023 Telephone [facility] MEDICINE 230 [place] [address] Bc Hunter MD 505 [place], [place] [phone] Referral Social History Tobacco Use Types Packs/Day [...] to be seen by Sarkis in the [place] location ifpossible documented in this encounter Plan of Treatment Upcoming Encounters Date Type Department Care Team (Late st Contact Info) Description 03/08/2025 9:00 AM EST Office Visit [facility] CHC MED & PEDS 505 [place] [address] Bc Hunter MD 505 [place] [address] documented as of this encounter Visit Diagnoses Not on filedocumented in this encounter Additional Health Concerns Assessment Noted Time PHQ-9 Depression Total Score: 0 09/30/19 24 11:02 AM EDT documented as of this encounter Care Teams Perinatology Physician Relationship Specialty Start Date End Date Bc Hunter MD 505 [place] [address] PCP - General Internal Medicine 01/03/19 documented as of this encounter
--- OUTSIDE RECORDS SUMMARY | 2025-02-13 12:18 | XMS_ITS | Encounter Summary ---
Author Organization [employer] Address [address] [place] [address] 7 [place] [address] Care Team Providers Care Application Specialist Name Role Phone Bc Hunter MD Primary Care Prov ider Reason for Visit * Reason Onset Date Comments Med Refill 05/15/2022 Encounter Details Date Type Department Care Team ([facility] st Contact Info) Description 05/15/2022 Telephone [facility] CHC MED & PEDS 505 [place] [address] Bc Hunter MD 505 [place] [address] Med Refill Social History Tobacco Use Types [...] 11:54 AM EST Tc from Amy with [facility] requesting some kinds of specific directions for warfarin (Coumadin) 2 MG tablet If any question please contact amy at [phone] documented in this encounter Plan of Treatment Upcoming Encounters Date Type Department Care Team (Late st Contact Info) Description 03/08/2025 9:00 AM EST Office Visit [facility] MED & PEDS 505 [place] [address] Bc Hunter MD 505 [place] [address] documented as of this encounter Visit Diagnoses Not on filedocumented in this encounter Care Teams Application Specialist Relationship Specialty Start Date End Date Bc Hunter MD 505 [place] [address] PCP - General Internal Medicine 01/03/19 documented as of this encounter
--- OUTSIDE RECORDS SUMMARY | 2025-02-13 12:18 | XMS_ITS | Encounter Summary ---
Author Organization [employer] Address 75 [facility] 7 [place] [address] Care Team Providers Care Board Worker Name Role Phone Bc Hunter MD Primary Care Prov ider Reason for Visit * Reason Onset Date Comments Nurse Triage 11/22/2024 Encounter Details Date Type Department Care Team ([facility] st Contact Info) Description 11/22/2024 Telephone [facility] MEDICINE 230 [place] [address] Bc Hunter MD [address] [place], [place] [phone] Nurse Triage Social History Tobacco Use Types [...] EDT Triage call to Krystin, staff at [facility] where Pt resides. Pt is in presence [...] be seen by provider. Offered apt in [facility] tomorrow morning 915am but, unable to go at that time. Pt is given ASK apt 11/24/24 withDr. Richard in [facility]. Pt is offered to come to [facility] in [facility] but, declined today, Krystin will considerthis if Pt gets worse before 11/24 apt. [facility] apt will be canceled if seen [...] caller accepted this outcome. Contact Krystin at [phone] documented in this encounter Plan of Treatment Upcoming Encounters Date Type Department Care Team ([facility] st Contact Info) Description 03/08/2025 9:00 AM EST Office Visit [facility] MED & PEDS 505 [place] [address] Bc Hunter MD [address] [place] [address] documented as of this encounter Visit Diagnoses Not on filedocumented in this encounter Additional Health Concerns Assessment Noted Time PHQ-9 Depression Total Score: 0 09/30/19 24 11:02 AM EDT documented as of this encounter Care Teams Board Worker Relationship Specialty Start Date End Date Bc Hunter MD 505 [place] [address] PCP - General Internal Medicine 01/03/19 documented as of this encounter
--- OUTSIDE RECORDS SUMMARY | 2025-02-13 12:18 | XMS_ITS | Encounter Summary ---
Author Organization [employer] Address [address] [place] [address] 7 [place] [address] Care Team Providers Care Wing Mailer Machine Operator Name Role Phone Bc Hunter MD Primary Care Prov ider Encounter Details Date Type Department Care Team (Late Contact Info) Description 05/18/2022 Orders Only [facility] MED & PEDS 505 [place] [address] Bc Hunter MD 505 [place], [place] [phone] S/P aortic valve replacement Social History Tobacco [...] Description 03/08/2025 9:00 AM EST Office Visit [facility] MED & PEDS 505 [place] [address] Bc Hunter MD 505 [place], [place] [phone] documented as of this encounter Visit Diagnoses Diagnosis S/P aortic valve replacement Heart valve replaced by other means documented in this encounter Care Teams Wing Mailer Machine Operator Relationship Specialty Start Date End Date Bc Hunter MD [address] [place] [address] PCP - General Internal Medicine 01/03/19 documented as of this encounter
--- OUTSIDE RECORDS SUMMARY | 2025-02-13 12:18 | XMS_ITS | Encounter Summary ---
Author Organization [employer] Address 75 [facility] 7 [place] [address] Care Team Providers Care Visor Installer Name Role Phone Bc Hunter MD Primary Care Prov ider Reason for Visit * Reason Onset Date Comments Nurse Triage 05/26/2023 Encounter Details Date Type Department Care Team ([facility] st Contact Info) Description 05/26/2023 Telephone [facility] MEDICINE 230 [place] [address] Bc Hunter MD 505 [place], [place] [phone] Nurse Triage Social History Tobacco Use Types [...] appetite is poor. Pt weight yesterday at senior accounting clerk apt is 173lbs. Pt was said to be around 202lbs regularly. Pt clothes are fitting very loosely now. Pt also wanted to stop coumadin but, senior accounting clerk instructed that wouldn't be good to do [...] acuity questions The caller accepted this outcome [phone] documented in this encounter Plan of Treatment Upcoming Encounters Date Type Department Care Team ([facility] st Contact Info) Description 03/08/2025 9:00 AM EST Office Visit [facility] MED & PEDS 505 [place] [address] Bc Hunter MD 505 [place] [address] documented as of this encounter Visit Diagnoses Not on filedocumented in this encounter Additional Health Concerns Assessment Noted Time PHQ-9 Depression Total Score: 0 07/11/19 23 11:26 AM EDT documented as of this encounter Care Teams Visor Installer Relationship Specialty Start Date End Date Bc Hunter MD 505 [place] [address] PCP - General Internal Medicine 01/03/19 documented as of this encounter
--- OUTSIDE RECORDS SUMMARY | 2025-02-13 12:18 | XMS_ITS | Encounter Summary ---
Author Organization [employer] Address 75 [facility] 7 [place] [address] Care Team Providers Care Java Security Architect Name Role Phone Bc Hunter MD Primary Care Prov ider Reason for Visit * Reason Comments Med Refill Encounter Details Date Type Department Care Team ([facility] st Contact Info) Description 08/06/2024 Refill [facility] MEDICINE 230 [place] [address] Bc Hunter MD 505 [place], [place] [phone] Social History Tobacco Use Types Packs/Day Years [...] Description 03/08/2025 9:00 AM EST Office Visit [facility] CHC MED & PEDS 505 [place] [address] Bc Hunter MD [address] [place] [address] documented as of this encounter Visit Diagnoses Not on filedocumented in this encounter Additional Health Concerns Assessment Noted Time PHQ-9 Depression Total Score: 0 09/30/19 24 11:02 AM EDT documented as of this encounter Care Teams Java Security Architect Relationship Specialty Start Date End Date Bc Hunter MD 505 [place] [address] PCP - General Internal Medicine 01/03/19 documented as of this encounter
--- OUTSIDE RECORDS SUMMARY | 2025-02-13 12:18 | XMS_ITS | Encounter Summary ---
Author Organization [employer] Address 75 [facility] 7 [place] [address] Care Team Providers Care Banana Grader Name Role Phone Bc Hunter MD Primary Care Prov ider Reason for Visit * Reason Onset Date Comments Nurse Triage 2024 Encounter Details Date Type Department Care Team ([facility] st Contact Info) Description 2024 Telephone [facility] MEDICINE 230 [place] [address] Bc Hunter MD 505 [place], [place] [phone] Nurse Triage Social History Tobacco Use Types [...] EDT called pt to triage, spoke to print binding worker, ANTONIO. pt was seen on 06/14 by [facility] pulmonology on 06/14 and due to some distress was sent to the ER for evaluation. pt diagnosed with Pneumonia and put onantibiotics x5 days. worker states pt eating and drinking, not having any fevers or severe/sustained sob, or other associated symptoms. given appt Wednesday with [facility] at 1:00 for exam and [...] 2024 3:49 PM EDT Tc from Patient BUILDING COORDINATOR to report ED visit on : Date: 06/14 Hospital: [facility] Seen for: pneumonia Symptomatic Yes *if yes message should go to Triage Patient advised will forward to team nurse for follow up [phone] pt documented in this encounter Plan of Treatment Upcoming Encounters Date Type Department Care Team (Late st Contact Info) Description 03/08/2025 9:00 AM EST Office Visit [facility] MED & PEDS 505 [place] [address] Bc Hunter MD 505 [place] [address] documented as of this encounter Visit Diagnoses Not on filedocumented in this encounter Additional Health Concerns Assessment Noted Time PHQ-9 Depression Total Score: 0 09/30/19 24 11:02 AM EDT documented as of this encounter Care Teams Banana Grader Relationship Specialty Start Date End Date Bc Hunter MD 505 [place] [address] PCP - General Internal Medicine 01/03/19 documented as of this encounter
--- OUTSIDE RECORDS SUMMARY | 2025-02-13 12:18 | XMS_ITS | Encounter Summary ---
Author Organization [employer] Address 75 [facility] 7 [place] [address] Care Team Providers Care Security Administrator Name Role Phone Bc Hunter MD Primary Care Prov ider Reason for Visit * Reason Onset Date Comments Call Back Request 11/15/2024 Encounter Details Date Type Department Care Team ([facility] Contact Info) Description 11/15/2024 Telephone [facility] CHC MED & PEDS 505 [place] [address] Bc Hunter MD 505 [place] [address] Call Back Request Social History Tobacco Use [...] 12:04 PM EDT TC to Olga with [facility]. Stated needs clarification to have claritin scheduled, have atorvastatin scheduled for HS and have FeSulfate scheduled for PM. Advised will fax over telephone order form and have pcp update order to [facility]. Fax sent to [facility] with confirmation. * Telephone Encounter - Jenn Krishnamurthy - 11/15/2024 11:06 AM EDT Tc from Olga Cage at [facility] requesting a call back to discuss medication labels Contact Olga at [phone] documented in this encounter Plan of Treatment Upcoming Encounters Date Type Department Care Team (Late st Contact Info) Description 03/08/2025 9:00 AM EST Office Visit [facility] CHC MED & PEDS [address] [place] [address] Bc Hunter MD [address] [place] [address] documented as of this encounter Visit Diagnoses [...] as of this encounter Care Teams Security Administrator Relationship Specialty Start Date End Date Bc Hunter MD [address] [place] [address] PCP - General Internal Medicine 01/03/19 documented as of this encounter
--- OUTSIDE RECORDS SUMMARY | 2025-02-13 12:18 | XMS_ITS | Encounter Summary ---
Author Organization [employer] Address 75 [facility] 7 [place] [address] Care Team Providers Care Spot Welder Body Assembly Name Role Phone Bc Hunter MD Primary Care Prov ider Reason for Visit * Reason Comments Med Change Request Encounter Details Date Type Department Care Team ([facility] Contact Info) Description 07/19/2023 Refill [facility] CHC MED & PEDS [address] [place] [address] Oralia Mazariegos FNP 505 [place] [address] Social History Tobacco Use Types Packs/Day Years [...] 03/08/2025 9:00 AM EST Office Visit [facility] MED & PEDS [address] [place] [address] Bc Hunter MD 505 [place] [address] documented as of this encounter Visit Diagnoses Not on filedocumented in this encounter Additional Health Concerns Assessment Noted Time PHQ-9 Depression Total Score: 0 07/11/19 23 11:26 AM EDT documented as of this encounter Care Teams Spot Welder Body Assembly Relationship Specialty Start Date End Date Bc Hunter MD 505 [place] [address] PCP - General Internal Medicine 01/03/19 documented as of this encounter
--- OUTSIDE RECORDS SUMMARY | 2025-02-13 12:19 | XMS_ITS | Encounter Summary ---
Author Organization [employer] Address 75 [facility] 7 [place] [address] Care Team Providers Care Head Waiter Name Role Phone Bc Hunter MD Primary Care Prov ider Reason for Visit * Reason Onset Date Comments Medication Question 08/29/2024 Encounter Details Date Type Department Care Team ([facility] Contact Info) Description 08/29/2024 Telephone [facility] MEDICINE [address] [place] [address] Bc Hunter MD [address] [place], [place] [phone] Medication Question Social History Tobacco Use Types [...] - 08/29/2024 1:29 PM EDT Tc from [place] staff with [facility] reports Doctors orders and script pharmacy has do not match .Please contact [place] for medication reconciliation. documented in this encounter Plan of Treatment Upcoming Encounters Date Type Department Care Team (Late st Contact Info) Description 03/08/2025 9:00 AM EST Office Visit [facility] CHC MED & PEDS [address] [place] [address] Bc Hunter MD 505 [place] [address] documented as of this encounter Visit Diagnoses Not on filedocumented in this encounter Additional Health Concerns Assessment Noted Time PHQ-9 Depression Total Score: 0 09/30/19 24 11:02 AM EDT documented as of this encounter Care Teams Head Waiter Relationship Specialty Start Date End Date Bc Hunter MD [address] [place] [address] PCP - General Internal Medicine 01/03/19 documented as of this encounter
--- OUTSIDE RECORDS SUMMARY | 2025-02-13 12:19 | XMS_ITS | Encounter Summary ---
Author Organization [employer] Address [address] [place] [address] Care Team Providers Care Material Coordinator Name Role Phone Bc Hunter MD Primary Care Prov ider Reason for Visit * Reason Comments Med Refill Encounter Details Date Type Department Care Team (Late Contact Info) Description 10/25/2022 Refill [facility] MED & PEDS 505 [place] [address] Bc Hunter MD 505 [place] [address] Social History Tobacco Use Types Packs/Day Years [...] Description 03/08/2025 9:00 AM EST Office Visit [facility] MED & PEDS [address] [place] [address] Bc Hunter MD [address] [place] [address] documented as of this encounter Visit Diagnoses Not on filedocumented in this encounter Additional Health Concerns Assessment Noted Time PHQ-9 Depression Total Score: 0 07/11/19 23 11:26 AM EDT documented as of this encounter Care Teams Material Coordinator Relationship Specialty Start Date End Date Bc Hunter MD [address] [place] [address] PCP - General Internal Medicine 01/03/19 documented as of this encounter
--- OUTSIDE RECORDS SUMMARY | 2025-02-13 12:19 | XMS_ITS | Encounter Summary ---
Author Organization [employer] Address 75 [facility] 7 [place] [address] Care Team Providers Care Bonded Strand Operator Name Role Phone Bc Hunter MD Primary Care Prov ider Reason for Visit * Reason Comments Med Refill Encounter Details Date Type Department Care Team ([facility] st Contact Info) Description 05/18/2023 Refill [facility] CHC MED & PEDS [address] [place] [address] Bc Hunter MD 505 [place] [address] Social History Tobacco Use Types Packs/Day Years [...] [facility] 505 [place] [address] Bc Hunter MD 505 [place] [address] documented as of this encounter Visit Diagnoses Not on filedocumented in this encounter Additional Health Concerns Assessment Noted Time PHQ-9 Depression Total Score: 0 07/11/19 23 11:26 AM EDT documented as of this encounter Care Teams Bonded Strand Operator Relationship Specialty Start Date End Date Bc Hunter MD 505 [place] [address] PCP - General Internal Medicine 01/03/19 documented as of this encounter
--- OUTSIDE RECORDS SUMMARY | 2025-02-13 12:19 | XMS_ITS | Encounter Summary ---
Author Organization [employer] Address [address] [place] [address] [place] [address] Care Team Providers Care Certified Nurses' Aide Name Role Phone Bc Hunter MD Primary Care Prov ider Reason for Visit * Reason Onset Date Comments Med Refill 09/21/2022 Encounter Details Date Type Department Care Team ([facility] st Contact Info) Description 09/21/2022 Telephone [facility] MED & PEDS [address] [place] [address] Bc Hunter MD [address] [place] [address] Med Refill Social History Tobacco Use Types [...] 09/23/2022 8:28 AM EDT Pt managed by [facility] coumad[facility]. Last INR of 3.1 noted 09/17/22. Will forward request for Rx to covering provider to review. * Telephone Encounter - Ping Nettles - 09/21/2022 10:39 AM EDT Tc from pt requesting med refill on Warfarin 1 mg tablet [facility]/pharmacy #[id number] - [place], [place] - [address] [facility] Please sent to documented in this encounter Plan of Treatment Upcoming Encounters Date Type Department Care Team (Late st Contact Info) Description 03/08/2025 9:00 AM EST Office Visit [facility] MED & PEDS [address] [place] [address] Bc Hunter MD [address] [place] [address] documented as of this encounter Visit Diagnoses Diagnosis History of Coumadin therapy- Primary S/P aortic valve replacement Heart valve replaced by other means documented in this encounter Additional Health Concerns Assessment Noted Time PHQ-9 Depression Total Score: 0 07/11/19 23 11:26 AM EDT documented as of this encounter Care Teams Certified Nurses' Aide Relationship Specialty Start Date End Date Bc Hunter MD [address] [place] [address] PCP - General Internal Medicine 01/03/19 documented as of this encounter
--- OUTSIDE RECORDS SUMMARY | 2025-02-13 12:19 | XMS_ITS | Encounter Summary ---
Author Organization [employer] Address [address] [place] [phone] Care Team Providers Care Billboard Erector Name Role Phone Bc Hunter MD Primary Care Prov ider Encounter Details Date Type Department Care Team (Late Contact Info) Description 02/24/2022 Telephone [facility] MEDICINE [address] [place], [place] [phone] Bc Hunter MD [address] [place], [place] [phone] Social History Tobacco Use Types Packs/Day Years [...] 03/08/2025 9:00 AM EST Office Visit [facility] CH[facility] MED & PEDS [address] [place], [place] [phone] Bc Hunter MD [address] [place], [place] [phone] documented as of this encounter Visit Diagnoses Not on filedocumented in this encounter Care Teams Billboard Erector Relationship Specialty Start Date End Date Bc Hunter MD [address] [place], [place] [phone] PCP - General Internal Medicine 01/03/19 documented as of this encounter
--- OUTSIDE RECORDS SUMMARY | 2025-02-13 12:19 | XMS_ITS | Clinical Summary ---
Author Organization [employer] Address [address] [place] [address] 7t [place] [address] Care Team Providers Care Tents Assembler Name Role Phone Bc Hunter MD [...] PM EDT): Told to follow up with gift officer, previously refused undergoing biopsy Assessment & Plan (10/02/2024 1:15 PM EDT): Patient does not want to undergo biopsy, will follow up pneumology reccomendations Assessment & Plan (04/26/2024 11:54 AM EST): Will order a follow up LDCT scan, otm consultant was told to contact pulmonology office Seborrheic dermatitis of scalp 01/26/2023 Assessment & Plan (07/20/2023 8:52 PM EDT): Followed by [facility] Derm clinic Refill of [...] valve replacement 04/28/2022 Overview (07/20/2023): Followed by [facility] Assessment & Plan (07/20/2023 8:46 PM EDT): Cardiology consult scheduled 07/20/23 No reported hx of bleeding, no reported chest pain/shortness of breath Discussed with PCP and [facility] (Lori FLETCHER). Plan to bridge pt from Eliquis to Coumadin. May DC Eliquis once Coumadin therapeutic Coumadin dosinmg on Wednesday and Wednesday 4mg all other days of the week Plan: [facility] to reach out to usp [...] nodules palpated Mild chronic obstructive pulmonary disease ([facility]) 09/22/2011 Assessment & Plan (01/08/2025 12:41 PM EDT): Symptoms resolved, smoking cessation discussed, follow up with gift officer Other schizophrenia 09/22/2011 Overview (07/20/2023): [place] Assessment & Plan (10/02/2024 1:14 PM EDT): [...] DEPARTMENT Provider, Generic External Data 02/01/2025 Refill [facility] MED & PEDS [address] [place] [address] Bc Hunter MD COPD exacerbation ([facility]) ([facility]) 01/25/2025 Orders Only GENERIC EXTERNAL DATA DEPARTMENT Provider, Generic External Data 01/25/2025 Travel 01/25/2025 Telephone [facility] MEDICINE [address] [place] [address] Bc Hunter MD Nurse Triage 01/16/2025 Orders Only GENERIC EXTERNAL DATA DEPARTMENT Provider, Generic External Data 01/15/2025 Refill [facility] MED & PEDS [address] [place] [address] Bc Hunter MD 01/08/2025 11:15 AM EDT Office Visit [facility] MED & PEDS [address] [place] [address] Bc Hunter MD Hyperlipemia, mixed (Primary Dx); Other iron deficiency anemia; Acquired hypothyroidism; Mild chronic obstructive pulmonary disease (CMS/HCC) (HCC); Nodule of left lung 01/08/2025 Travel 01/04/2025 Telephone [facility] MED & PEDS [address] [place] [address] Bc Hunter MD chart prep 01/02/2025 Orders Only GENERIC EXTERNAL DATA DEPARTMENT Provider, Generic External Data 12/29/2024 Telephone [facility] PEDIATRICS [address] [place] [address] Bc Hunter MD INR LEVEL 12/29/2024 Orders Only GENERIC EXTERNAL DATA DEPARTMENT Provider, Generic External Data 12/05/2024 Orders Only GENERIC EXTERNAL DATA DEPARTMENT Provider, Generic External Data 11/29/2024 Refill [facility] MED & PEDS [address] [place] [address] Bc Hunter MD Seborrheic dermatitis of scalp; Mixed hyperlipidemia; Gastroesophageal reflux disease without esophagitis 11/29/2024 Refill [facility] MED & PEDS [address] [place] [address] Zafar Richard MD Gastroesophageal reflux disease without esophagitis 11/29/2024 Refill [facility] MED & PEDS [address] [place] [address] Bc Hunter MD Mixed hyperlipidemia 11/28/2024 Orders Only GENERIC EXTERNAL DATA DEPARTMENT Provider, Generic External Data 11/24/2024 2:30 PM EDT Office Visit [facility] MED & PEDS [address] [place] [address] Zafar Richard MD COPD exacerbation ([facility]) (Primary Dx); Cigarette nicotine dependence without complication; Mixed hyperlipidemia; Congestion of nasal sinus; Acquired hypothyroidism; Irritable bowel syndrome with diarrhea; Iron deficiency anemia due to chronic blood loss 11/24/2024 Telephone [facility] MEDICINE [address] [place] [phone] Bc Hunter MD Medication Question 11/24/2024 Refill [facility] MED & PEDS [address] [place] [address] Bc Hunter MD Cigarette nicotine dependence without complication 11/24/2024 Travel 11/24/2024 Orders Only GENERIC EXTERNAL DATA DEPARTMENT Provider, Generic External Data 11/23/2024 Telephone [facility] PEDIATR[facility] [address] [place] [address] Bc Hunter MD CRITICAL LAB 11/23/2024 Orders Only GENERIC EXTERNAL DATA DEPARTMENT Provider, Generic External Data 11/23/2024 Telephone [facility] MED & PEDS [address] [place] [address] Bc Hunter MD chart prep 11/22/2024 Telephone [facility] [address] [place] [address] Bc Hunter MD Nurse Triage 11/18/2024 Refill [facility] MED & PEDS [address] [place] [address] Bc Hunter MD Mixed hyperlipidemia 11/15/2024 Telephone [facility] MED & PEDS [address] [place] [address] Bc Hunter MD Call Back Request from [...] 03/08/2025 9:00 AM EST Office Visit [facility] MED & PEDS [address] [place], [place] [phone] Bc Hunter MD [address] [facility] [place] [address] Health Maintenance Due Date Last Done Comments [...] included. Protime 22.1(H) 11.1 - 13.5 sec [facility] 02/05/2025 10:1 7 AM EST 02/05/2025 10:22 AM EST Generic External Data Provider LAB BLOOD ORDERAB LES Final Result Performing Organization Address [facility] Co de Phone Number [facility] [address] [place] [phone] * (ABNORMAL) ~PT, ~INR - ANTI COAG CLINIC (02/05/2025 10:17 AM EST) Only the most recent of8 resultswithin the time period is included. Prothrombin Time INR 1.8(H) 0.9 - 1.1 [facility] Comment:METER #: [id number] TERNATIONAL NORMALIZED RATIO (INR) REFERENCE RANGES Reference [...] ORDERAB LES Final Result Performing Organization Address [facility] Co de Phone Number [facility] [address] [place] [phone] * SARS-CoV-2 RNA, Influenza A/B, and RSV RNA, Ql NAAT (01/25/2025 3:42 PM EST) Influenza A PCR NEGATIVE Negative [facility] Influenza B PCR NEGATIVE Negative [facility] Resp Syncy Virus RNA Qual PCR NEGATIVE Negative [facility] SARS COV2 PCR NEGATIVE Negative [facility] Comment:All test results mus t [...] use by authorized laboratories.Testing performed on the [employer] GeneXpert utilizingreal-time RT-PCR.All SARS CoV2 and positive influenza A/B results arereported to [facility]. 01/25/2025 3:42 PM EST 01/25/2025 3:52 PM EST us Generic External Data Provider LAB MICROBIOLOGY - GENERAL ORDERABLES Final Result Performing Organization Address City/State/[facility] Co de Phone Number [facility] [address] [place] [phone] * CT Head w/o Contrast (01/25/2025 1:21 PM EST) Anatomical Region Laterality Modality Head, Neck Computed Tomogra phy 01/25/2025 1:21 PM EST Narrative 01/25/2025 1:54 PM EST [address] [address] [address] Scan Report Signed Patient: Chris Zaragoza MR#: [id number] : 1950 Acct:[id number] Age/Sex: 74 / M ADM Date: 01/25/25 Loc: .ED Attending Dr: Ordering Physician: Henrietta Ricks DO Date of Service: 01/25/25 Procedure(s): CT head/brain wo IV con Accession Number(s): [id number] cc: Bc Hunter MD; Henrietta Ricks DO Report Number: [id number]: Total DLP = 731.00 mGy-cm Reason for [...] by: Deon Stewart MD 01/25/2025 01:51 PM [facility] [place] [place] Dictated By: Deon Stewart MD Signed By: <Electronically signed by Deon Stewart MD in OV> 01/25/25 1351 DD/ 1321 TD/TT: 01/25/25 1337 Manager Fire: KIN Procedure Note Donotuseinterpreter, Image - 01/25/[address] [place] [address] [address] Scan Report Signed Patient: Amos Zaragoza#: [id number] : 3Acct:[id number] Age/Sex: 74 / MADM Date: 01/25/25 Loc: HO.ED Attending Dr: Ordering Physician: Henrietta Ricks DO Date of Service: 01/25/25 Procedure(s): CT head/brain wo IV con Accession Number(s): [id number] cc: Bc Hunter MD; Henrietta Ricks DO Report Number: [id number]: Total DLP = 731.00 mGy-cm Reason for [...] 01/25/25 1351 DD/ 1321 TD/TT: 01/25/25 1337 Manager Fire: KIN [facility] External Provider IMG CT PROCEDURES Final Result * (ABNORMAL) Prothrombin Time-INR (01/25/2025 12:13 PM EST) Only the most recent of2 resultswithin the time period is included. Prothrombin Time 21.6(H) 11.2 - 13.5 SEC [facility] INTERNATIONAL NORM RATIO 1.8(H) 0.9 - 1.1 [facility] Comment:INTERNATIONAL NORMAL IZED RATIO (INR) [...] [facility] Co de Phone Number [facility] [address] [place] [phone] * (ABNORMAL) CBC auto differential (01/25/2025 11:24 AM EST) White Blood Count 6.2 4.8 - 10.8 X10*3/uL [facility] Red Blood Count 3.85(L) 4.60 - 5.80 X10*6/uL [facility] Hemoglobin 11.5(L) 14.0 - 18.0 g/dl [facility] Hematocrit 35.2(L) 42.0 - 52.0 % [facility] Mean Corpuscular Volume 91.4 80.0 - 98.0 fL [facility] Mean Corpuscular Hemoglobin 29.9 27.0 - 33.0 pg [facility] Mean Corpuscular HGB Conc 32.7 31.0 - 36.0 g/dl [facility] Red Cell Distribution Width 15.6 11.0 - 16.0 % [facility] Platelet Count 282 160 - 400 X10*3/uL [facility] Mean Platelet Volume 10.0 9.4 - 12.4 fL [facility] Neutrophils Percent Auto 79.8(H) 45 - 73 % [facility] Imm Gran Pct Auto 0.3 0.0 - 0.4 % [facility] Lymphocytes Percent Auto 10.2(L) 20 - 40 % [facility] Monocytes Percent Auto 8.1 2 - 11 % [facility] Eosinophils Percent Auto 1.1 0 - 4 % [facility] Basophils Percent Auto 0.5 0 - 2 % [facility] NRBC Pct Auto 0.0 0.0 - 0.2 /100WBC [facility] Neutrophils Absolute Auto 4.9 2.0 - 8.3 x10*3/uL [facility] Imm Gran Abs Auto 0.02 0.00 - 0.03 X10*3/uL [facility] Lymphocytes Absolute Auto 0.6(L) 1.2 - 4.9 X10*3/uL [facility] Monocytes Absolute Auto 0.5 0.1 - 1.2 X10*3/uL [facility] Eosinophils Absolute Auto 0.1 0.0 - 0.4 X10*3/uL [facility] Basophils Absolute Auto 0.0 0.0 - 0.2 X10*3/uL [facility] NRBC Abs Auto 0.000 0.0 - 0.012 X10*3/uL [facility] 01/25/2025 11:2 4 AM EST 01/25/2025 11:27 AM EST us Generic External Data Provider LAB BLOOD ORDERAB LES Final Result [facility] [address] [place] [phone] * (ABNORMAL) Comprehensive Metabolic Panel (01/25/2025 11:24 AM EST) Sodium 135 135 - 145 mmol/L [facility] Potassium 4.6 3.3 - 5.1 mmol/L [facility] Comment:Slight Hemolysis.Int erpret result with caution. Chloride 100 96 - 108 mmol/L [facility] Carbon Dioxide 27 22 - 29 mmol/L [facility] Anion Gap 13 12 - 20 [facility] Urea Nitrogen (BUN) 27(H) 9 - 16 mg/dL [facility] Creatinine, Serum 1.50(H) 0.5 - 1.4 mg/dL [facility] Creatinine Clr Calc Pharmacy 48.8 [facility] Comment:eGFR (calculated fro m the MDRD study equation) and eCrCl(calculated from the Cockcroft-Gault equation) are based ondifferent parameters and may not yield comparable results.If eCrCl result is absurd, please check patient'sheight/weight. Estimated Glomerular Filt Rate 46 [facility] Comment:Chronic Kidney Disea se: Estimated GFR < 60 mL/min/1.22w0Qhchur Kidney Disease: Estimated GFR < 15 mL/min/1.73m2 Glucose 121(H) 60 - 115 mg/dL [facility] Calcium 8.9 8.4 - 10.2 mg/dL [facility] Bilirubin, Total 0.5 0.0 - 1.0 mg/dL [facility] Aspartate Amino Transferase 32 5 - 37 U/L [facility] Comment:Slight Hemolysis.Int erpret result with caution. Alanine Aminotransferase 14 0 - 40 U/L [facility] Total Protein 6.8 6.5 - 8.0 g/dL [facility] Albumin Level 3.6 3.5 - 5.0 g/dL [facility] Alkaline Phosphatase 142(H) 39 - 117 U/L [facility] 01/25/2025 11:2 4 AM EST 01/25/2025 11:27 AM EST us Generic External Data Provider LAB BLOOD ORDERAB LES Final Result [facility] [address] [place] [address] [phone] * Lipid Panel, Standard (05/06/2023 11:48 AM EST) Triglycerides 61 <150 mg/dL [facility] Comment:Desirable Triglyceri de: less than 150 mg/dLBorderline High Triglyceride 150-199 mg/dLHigh Triglyceride: 200-499 mg/dLVery High Triglyceride: greater than or equal to 5OO mg/dL Cholesterol 166 <200 mg/dL [facility] Comment:Desirable Cholestero l: less than 200 mg/dLBorderline High Cholesterol: 200-239 mg/dLHigh Cholesterol: greater than 239 mg/dL LDL Cholesterol Calculated 94 <100 mg/dL [facility] Comment:Desirable LDL: less than 100 mg/dLNear Optimal/Above Optimal LDL: 110- 129 mg/dLBorderline High LDL: 130-159 mg/dLHigh LDL: 160-189 mg/dLVery High LDL: greater than or equal to 190 mg/dL HDL Cholesterol 60 >40 mg/dL [facility] Comment:Desirable HDL: great er than 40 mg/dL Note: This HDL assay may give artificially low results in patients with liver disease. Blood Venous blood specimen / Unknown 05/06/2023 11:48 AM EST 05/06/2023 2:09 PM EST Bc Rascon MD LAB BLOOD ORDERABL ES Final Result [facility] [address] [place] [phone] * Hepatitis C Antibody with Reflex to HCV, RNA, Quantitative, Real-Time PCR (07/10/2022 11:31 AM EDT) Hepatitis C Antibody NON-REACT DEZ NON-REACT DEZ [employer] [place] [facility] Index 0.09 <1.00 [employer] [place] [facility] Comment: HCV antibody was non-reactive. There is no laboratory evidence of HCV infection. In most cases, no further action is required. However, if recent HCV exposure is suspected, a test for HCV RNA (test code 44547) is suggested. For additional information please refer to http://education.DeckDAQ/faq/QSO98d7 (This link is being provided for informational/ educational purposes only.) Blood Venous blood specimen / Unknown 07/10/2022 11:31 AM EDT 07/10/2022 11:32 AM EDT Narrative [facility] - 07/11/2022 5:06 AM EDT FASTING:NO FASTING: NO Bc Rascon MD LAB BLOOD ORDERABL ES Final Result [facility] [address], [place] [address] [employer] [facility] [address] [place] [address] from Last 3 Months or Most Recently Relevant to Health Maintenance Insurance MEDICARE [facility] Care Teams Tents Assembler Relationship Specialty Start Date End Date Bc Hunter MD [address] [place] [phone] PCP - General Internal Medicine 01/03/19
--- OUTSIDE RECORDS SUMMARY | 2025-02-13 12:19 | XMS_ITS | Encounter Summary ---
Author Organization [employer] Address [address] [facility] 7 [place] [address] Care Team Providers Care Rn Primary Care Name Role Phone Bc Hunter MD Primary Care Prov ider Reason for Visit * Reason Onset Date Comments Call Back Request 07/05/2024 Encounter Details Date Type Department Care Team ([facility] st Contact Info) Description 07/05/2024 Telephone [facility] [address] [place] [address] Bc Hunter MD [address] [place], [place] [phone] Call Back Request Social History Tobacco Use [...] 12:18 PM EDT Tc from [place] with [facility] requesting a call back regarding the pt Lovenox. Contact Kimberly at [phone] documented in this encounter Plan of Treatment Upcoming Encounters Date Type Department Care Team (Late st Contact Info) Description 03/08/2025 9:00 AM EST Office Visit [facility] PEDS [address] [place] [address] Bc Hunter MD 505 [place] [address] documented as of this encounter Visit Diagnoses Not on filedocumented in this encounter Additional Health Concerns Assessment Noted Time PHQ-9 Depression Total Score: 0 09/30/19 24 11:02 AM EDT documented as of this encounter Care Teams Rn Primary Care Relationship Specialty Start Date End Date Bc Hunter MD [address] [place] [address] PCP - General Internal Medicine 01/03/19 documented as of this encounter
== END 2025-01-16 09:48 ==
LOC: CF
PROVIDERS: PCP Internal Medicine; Visit Provider Internal Medicine Medical Oncology
DX: R06.02 Shortness of breath (principal)
CPT/HCPCS: 85610; 99211

== ENCOUNTER 2025-01-16 10:02 | Outpatient (AMB) | payer MEDICARE, MEDICAID, SELFPAY ==
[2025-01-16 10:13] LABS: Prothrombin Time Whole Bld POC 34.1 sec (11.1-13.5); ~PT, ~INR - Anti Coag Clinic 2.8 (0.9-1.1)
--- NOTE | 2025-01-16 10:19 | MHC.OFFVISCO ---
Intake Intake Visit Reasons: Anticoagulation Allergies No Known Allergies Allergy (Mild, Verified 01/16/25 10:07) NOT APPLICABLE Medication List - Last Reconciled 01/16/25 by Nivia Beaver RN albuterol sulfate 90 mcg/actuation (Ventolin HFA) 1 puff inhalation RQ4H PRN amantadine HCl 100 mg PO BID atorvastatin 40 mg PO BEDTIME azithromycin mg PO carbamide peroxide (Debrox) 5 DROPS EACH EAR EVERY 2 WEEKS cholecalciferol (vitamin D3) (Vitamin D3) 25 mcg PO QAM dicyclomine 20 mg PO BID divalproex ER 1,000 mg PO BEDTIME ferrous sulfate 324 mg PO DAILY ferrous sulfate 325 mg PO QAM [FLUCINOLONE TOPICAL DAILY ] argojvnstfm-qvtohmqzg-gnoosaky 200-62.5-25 mcg (Trelegy Ellipta) 1 inh inhalation DAILY guaifenesin ER (Mucus Relief ER) 1,200 mg PO BID levothyroxine 25 mcg PO DAILY@0600 loratadine 10 mg PO DAILY magnesium oxide 400 mg PO BIDPC multivitamin with folic acid 400 mcg (Daily-Stanley (with folic acid)) 1 tab PO DAILY pantoprazole 40 mg PO BID revefenacin (Yupelri) 175 mcg (3 mL) inhalation DAILY 30 days risperidone (Risperdal) 4 mg PO BID tamsulosin 0.4 mg PO BEDTIME valproic acid 1000mg orally daily; warfarin See Protocol 2 mg orally 4MG DAILY OR DIRECTED; 4MG DAILY OR DIRECTED Nursing Note pt to [facility] accompanied by mental health worker. Pt in W/C. Pt calm and cooperative. Excessive talking noted. INR: 2.8 in therapeutic range of 2-3 Medications and supplements reviewed No changes in health, diet, medications, or supplements, Denies any signs and symptoms of bleeding or bruising or clotting. Bleeding, bruising, clotting discussed Nutritional guidance given Dose: same dose of 4mg X 4 days and 2mg X 3 days (//) F/U INR: 3 weeks Patient verbalizes understanding of instructions given Anti-Coag Initial Assessment Social Hx Patient Tobacco Use Status: Refuse Tobacco use screen alcohol intake: never Coding Level of Care Code Est Patient Level 1 Diagnoses Current use of anticoagulant therapy Z79.01 Results AMB INR Fingerstick AMB INR Fingerstick 2.8 Last Edit by Nivia Beaver, JUSTINE on 01/16/25 10:16 interface delay Assessment & Plan Assessment & Plan (1) Current use of anticoagulant therapy: Code(s): 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
--- OUTSIDE RECORDS SUMMARY | 2025-01-16 12:00 | XMS_ITS | Encounter Summary ---
Author Organization [facility] Address [address] [place] [address] Phone Care Team Providers Care Electric Utility Lineworker Name Role Phone Bc Yates Primary Care Provider [phone] Reason for Visit * Reason Comments Med Refill Encounter Details Date Type Department Care Team (Late st Contact Info) Description 01/13/2022 Refill [facility] [address] [place] [address] Trever Lopez MD [address] [facility] [place] [address] Social History Tobacco Use Types [...] [facility] [address] [address] Trever Lopez MD [address] [facility] [address] [place] [address] documented as of this encounter Visit Diagnoses Not on filedocumented in this encounter Care Teams Electric Utility Lineworker Relationship Specialty Start Date End Date Bc Yates PCP - General Internal Medicine 10/05/22 documented as of this encounter
--- OUTSIDE RECORDS SUMMARY | 2025-01-16 12:00 | XMS_ITS | Clinical Summary ---
Author Organization [facility] [place] Address [address] [place] [address] [place] [address] Phone Care Team Providers Care Supervisor [employer] Name Role Phone YatesBc Primary Care Provider Allergies No known active allergies Medications D3-50 1.25 MG (62079 UT) capsule TAKE 1 CAPSULE BY MOUTH [...] [facility] [address] [facility] [address] [place] [address] Trever Lopez MD [address] [place] [phone] Health Maintenance Due Date Last Done Comments [...] topic Insurance Medicare Medicaid [place] Care Teams Supervisor [employer] Relationship Specialty Start Date End Date Bc Yates PCP - General Internal Medicine 10/05/22
--- OUTSIDE RECORDS SUMMARY | 2025-01-16 12:00 | XMS_ITS | Encounter Summary ---
Author Organization [facility] Address [address] [place] [address] Phone Care Team Providers Care Plastic Surgery Assistant Name Role Phone Bc Yates Primary Care Provider [phone]- [phone] Encounter Details Date Type Department Care Team (Late st Contact Info) Description 05/26/2021 Documentation Only [facility] [address] [place] [place] [address] Trever Lopez MD [address] [place] [address] [place] [address] Social History Tobacco Use Types [...] Visit [facility] [address] [place] [address] Trever Lopez MD [address] [place] [address] [place] [address] documented as of this encounter Visit Diagnoses Not on filedocumented in this encounter Care Teams Plastic Surgery Assistant Relationship Specialty Start Date End Date Bc Yates PCP - General Internal Medicine 10/05/22 documented as of this encounter
== END 2025-01-16 10:21 | disposition home or self-care (01) ==
LOC: HO.ACS 10:02
PROVIDERS: PCP Internal Medicine; Visit Provider Internal Medicine Medical Oncology
DX: Z79.01 Long term (current) use of anticoagulants (principal)

== ENCOUNTER 2025-01-25 10:48 | Emergency (ER) | payer MEDICARE, MEDICAID, SELFPAY ==
--- NOTE | ~2025-01-25 | CT_ITS ---
EXAMINATION: CT HEAD WITHOUT CONTRAST CLINICAL INFORMATION: Head injury COMPARISON: CT head 12/03/2020 TECHNIQUE: Contiguous axial imaging was performed from the skull base to vertex without intravenous administration of contrast. This CT examination was performed using dose optimization techniques as appropriate, variously including the following: *Automated exposure control *Adjustment of mA and/or kV according to patient size (this includes techniques or standardized protocols for targeted exams where dose is matched to indication/reason for exam; i.e. extremities or head) *Use of iterative reconstruction technique FINDINGS: There is no evidence of acute intracranial hemorrhage or edematous large vessel territorial infarction. No abnormal mass effect or midline shift is seen. Reeves to white matter differentiation is preserved. No abnormal extra-axial fluid collections are identified. Commensurate prominence of the ventricles and sulci is compatible with generalized parenchymal volume loss. There is patchy periventricular and subcortical white matter hypoattenuation, most likely representing microangiopathic disease Bilateral globes grossly appear unremarkable. Bilateral lens extraction. No acute calvarial fracture.. Mucosal thickening of bilateral maxillary, left sphenoid, left frontal sinuses. Mastoid air cells are well-aerated. CT/CT head/brain wo IV con IMPRESSION: No CT evidence of acute intracranial hemorrhage or edematous territorial infarction.. Chronic changes as detailed above. Sinus disease as above. Electronically signed by: Deon Stewart MD 01/25/2025 01:51 PM EST
[2025-01-25 10:59] VITALS: BP 107/53; PULSE 82; RESP 18; TEMP 36.5; O2SAT 98; BMI 27.1
--- NOTE | 2025-01-25 11:05 | ECG_ITS ---
Test Reason : chest pain Blood Pressure : */* mmHG Vent. Rate : 73 BPM Atrial Rate : * BPM P-R Int : * ms QRS Dur : 114 ms QT Int : 388 ms P-R-T Axes : * 72 71 degrees QTcB Int : 427 ms SInus rhythm with first degree AV block Poor data quality, interpretation may be adversely affected When compared with ECG of 14-Jun-2024 11:42, Poor data quality Referred By: Generic ED Physician Electronically Signed By: Harjit Baird
[2025-01-25 11:24] VITALS: O2SAT 95
[2025-01-25 11:29] LABS: MANUAL DIFF FLAG NO
[2025-01-25 11:39] LABS: Hematocrit 35.2 % (42.0-52.0); Hemoglobin 11.5 g/dl (14.0-18.0); Imm Gran Abs Auto 0.02 X10*3/uL (0.00-0.03); Imm Gran Pct Auto 0.3 % (0.0-0.4); Lymphocytes Absolute Auto 0.6 X10*3/uL (1.2-4.9); Mean Corpuscular HGB Conc 32.7 g/dl (31.0-36.0); Mean Corpuscular Hemoglobin 29.9 pg (27.0-33.0); Mean Corpuscular Volume 91.4 fL (80.0-98.0); NRBC Abs Auto 0.000 X10*3/uL (0.0-0.012); NRBC Pct Auto 0.0 /100WBC (0.0-0.2); Platelet Count 282 X10*3/uL (160-400); Red Blood Count 3.85 X10*6/uL (4.60-5.80); White Blood Count 6.2 X10*3/uL (4.8-10.8)
--- NOTE | 2025-01-25 11:45 | ED.GENADULT ---
HPI - General Adult General Chief complaint: Syncope Stated complaint: WIT SYNCOPE,NO FALL, FROM [facility] PER EMS Time Seen by Provider: 01/25/25 11:42 Source: patient Mode of arrival: ambulatory Limitations: no limitations History of Present Illness ED Provider: Dr. Ricks HPI narrative: 74-year-old male history of inguinal hernia on Coumadin per the patient's for ?heart condition?, schizophrenia presented hospital today for evaluation of fall at a alf. Patient stated this with a mechanical fall. Lost his balance and fell. Denies any headache denies any neck pain. Denies any chest pain abdominal pain denies any pain in his extremities. Related Data Home Medications ?Medication ?Instructions ?Recorded ?Confirmed dicyclomine 20 mg tablet 20 mg PO BID 07/20/23 01/16/25 pantoprazole 40 mg tablet,delayed 40 mg PO BID 07/20/23 01/16/25 release cholecalciferol (vitamin D3) 25 25 mcg PO QAM 07/23/23 01/16/25 mcg (1,000 unit) capsule (Vitamin D3) warfarin 2 mg tablet 2 mg PO .COMPLEX 07/23/23 01/16/25 multivitamin with folic acid 400 1 tab PO DAILY 04/10/24 01/16/25 mcg tablet (Daily-Stanley (with folic acid)) FLUCINOLONE topical 05/19/24 01/16/25 carbamide peroxide [Debrox] otic (ears) 05/19/24 01/16/25 valproic acid 500 mg See Rx Instructions PO DAILY 05/19/24 01/16/25 capsule,delayed release amantadine HCl 100 mg tablet 100 mg PO BID 06/27/24 01/16/25 risperidone 2 mg tablet (Risperdal) 4 mg PO BID 06/27/24 01/16/25 divalproex 500 mg tablet,extended 1,000 mg PO BEDTIME 07/20/24 01/16/25 release 24 hr azithromycin 250 mg tablet mg PO 11/28/24 01/16/25 ferrous sulfate 325 mg (65 mg 325 mg PO QAM 11/28/24 01/16/25 iron) tablet guaifenesin 600 mg tablet, 1,200 mg PO BID 11/28/24 01/16/25 extended release 12 hr (Mucus Relief ER) Previous Rx's ?Medication ?Instructions ?Recorded albuterol sulfate 90 mcg/actuation 1 puff inhalation RQ4H PRN 07/13/23 aerosol inhaler (Ventolin HFA) Wheezing/SOB #6.7 grams atorvastatin 40 mg tablet 40 mg PO BEDTIME #30 tabs 07/13/23 ferrous sulfate 324 mg (65 mg 324 mg PO DAILY #30 tabs 07/13/23 iron) tablet,delayed release levothyroxine 25 mcg tablet 25 mcg PO DAILY@0600 #30 tabs 07/13/23 loratadine 10 mg tablet 10 mg PO DAILY #30 tabs 07/13/23 magnesium oxide 400 mg (241.3 mg 400 mg PO BIDPC #60 tabs 07/13/23 magnesium) tablet revefenacin 175 mcg/3 mL solution 175 mcg (3 mL) inhalation DAILY 30 08/29/24 for nebulization (Yupelri) days #90 mL fluticasone fur. 200 mcg-umeclid 1 inh inhalation DAILY #1 ea 10/03/24 62.5 mcg-vilant 25 mcg inhalat.powder (Trelegy Ellipta) tamsulosin 0.4 mg capsule 0.4 mg PO BEDTIME #30 caps 01/02/25 Allergies Allergy/AdvReac Type Severity Reaction Status Date / Time No Known Allergies Allergy Mild NOT Verified 01/25/25 11:02 APPLICABLE Review of Systems Review of Systems: Pertinent review of systems as mentioned in HPI. All other system otherwise negative. [facility] Past Medical History [facility] Narrative: Medical history as mentioned in HPI Medical History Incarcerated right inguinal hernia Normocytic anemia Metabolic encephalopathy MSSA bacteremia History of atrial fibrillation COPD (chronic obstructive pulmonary disease) Hypothyroid Bipolar 1 disorder Surgical History History of heart surgery Social History Social History Household Members: Other Household Members Other:: alf Housing: House Housing Other:: alf Do you presently have visiting nurse or other home services: Yes (alf) Alcohol intake: never Comment: Close observation Patient Tobacco Use Status: Refuse Tobacco use screen Substance Use Type: Marijuana Advance Directives: Yes Advance Directives on File: Yes Advance Directives Date on File: 06/04/23 service: No Sexual orientation: Straight/Heterosexual Physical Exam ED Exam Exam: General: Pleasant, no distress, interacting appropriately Head: Normacephalic, atraumatic ENT: oral mucosa moist, neck supple, no tracheal deviation, no C-spine tenderness on palpation Cardiovascular: regular rate, regular rhythm, no murmurs, rubbing, gallops, no ecchymosis on chest wall no chest wall tenderness on palpation Respiratory: CTAB, no wheeze, rales, rhonchi Gastrointestinal: Soft, non distended, non tender, non guarding, no ecchymosis on abdomen Extremities: No limb pain or deformity Neurological: Awake and alert, no facial droop noted Skin: Warm and dry Psychiatric: Appropriate mood and thoughts Vital Signs: Vital Signs - 24 hr 01/25/25 10:59 01/25/25 12:00 01/25/25 14:00 Temperature 97.7 F Pulse Rate 82 68 78 Respiratory Rate 18 20 20 Blood Pressure 107/53 L 114/66 118/70 Pulse Oximetry 98 94 96 Oxygen Delivery Method Room Air Room Air BMI result Body Mass Index 27.1 Medical Decision Making Medical Decision Making [facility] Narrative: 74-year-old male presented hospital today for evaluation of fall. He is on Coumadin at this time. PT INR will be obtained. We will plan to obtain a CT head on the patient. Evaluate for intracranial bleed. This seems to be a mechanical fall based on his story. Patient shared that he does not want to be in the ER currently. He wants to go back to the alf. Patient's CT head negative for any signs of intracranial bleed. Patient will be discharged at this time. Referral to General surgery Clinic will be given for his large right inguinal hernia. I do not think this is incarcerated at this time however this will likely need to be addressed electively. Differential Diagnosis Differential Diagnoses: The differential diagnosis associated with the presentation includes Intracranial bleed, mechanical fall, closed head injury Lab Data [facility] Lab Attestation statement: I reviewed the patient's lab results. 01/25/25 11:24 01/25/25 11:24 Labs: Lab Results 01/25/25 01/25/25 Range/Units 11:24 12:13 WBC 6.2 (4.8-10.8) X10*3/uL RBC 3.85 L (4.60-5.80) X10*6/uL Hgb 11.5 L (14.0-18.0) g/dl Hct 35.2 L (42.0-52.0) % MCV 91.4 (80.0-98.0) fL MCH 29.9 (27.0-33.0) pg MCHC 32.7 (31.0-36.0) g/dl RDW 15.6 (11.0-16.0) % Plt Count 282 (160-400) X10*3/uL MPV 10.0 (9.4-12.4) fL Immature Gran % (Auto) 0.3 (0.0-0.4) % Neut % (Auto) 79.8 H (45-73) % Lymph % (Auto) 10.2 L (20-40) % Pierce % (Auto) 8.1 (2-11) % Eos % (Auto) 1.1 (0-4) % Baso % (Auto) 0.5 (0-2) % Lymph # (Auto) 0.6 L (1.2-4.9) X10*3/uL Pierce # (Auto) 0.5 (0.1-1.2) X10*3/uL Eos # (Auto) 0.1 (0.0-0.4) X10*3/uL Baso # (Auto) 0.0 (0.0-0.2) X10*3/uL Abs Immat Gran (auto) 0.02 (0.00-0.03) X10*3/uL Absolute Neuts (auto) 4.9 (2.0-8.3) x10*3/uL Absolute Nucleated RBC 0.000 (0.0-0.012) X10*3/uL Nucleated RBC % (auto) 0.0 (0.0-0.2) /100WBC PT 21.6 H (11.2-13.5) SEC INR 1.8 H D (0.9-1.1) Sodium 135 (135-145) mmol/L Potassium 4.6 (3.3-5.1) mmol/L Chloride 100 (96-108) mmol/L Carbon Dioxide 27 (22-29) mmol/L Anion Gap 13 (12-20) BUN 27 H (9-16) mg/dL Creatinine 1.50 H (0.5-1.4) mg/dL Estim Creat Clear Calc 48.8 Estimated GFR 46 Random Glucose 121 H (60-115) mg/dL Calcium 8.9 (8.4-10.2) mg/dL Total Bilirubin 0.5 (0.0-1.0) mg/dL AST 32 (5-37) U/L ALT 14 (0-40) U/L Alkaline Phosphatase 142 H (39-117) U/L Total Protein 6.8 (6.5-8.0) g/dL Albumin 3.6 (3.5-5.0) g/dL Independent Interpretation I performed an independent interpretation of an: CT Scan Radiology Impression Discussion of test interpretation with radiology: I have reviewed the radiologist's reading. Discharge Plan Discharge Clinical Impression: Closed head injury Qualifiers: Encounter type: initial encounter Qualified Code(s): S09.90XA - Unspecified injury of head, initial encounter Inguinal hernia Qualifiers: Obstruction and gangrene presence: without obstruction or gangrene Laterality: unilateral Recurrence: not specified as recurrent Qualified Code(s): K40.90 - Unilateral inguinal hernia, without obstruction or gangrene, not specified as recurrent Patient Disposition: Home, Self-Care Prescriptions: No Action Yupelri 175 mcg/3 mL solution for nebulization 175 mcg inhalation DAILY 30 Days Qty: 90 6RF Rx Instructions: Inhaled 1 vial daily via nebulizer Dominiclekatarina Ellipta 200-62.5-25 mcg blister with device 1 inh inhalation DAILY Qty: 1 6RF Rx Instructions: Inhaler 1 puff q.a.m. tamsulosin 0.4 mg capsule 0.4 mg PO BEDTIME Qty: 30 8RF Rx Instructions: take once every PM loratadine 10 mg Tablet 10 mg PO DAILY Qty: 30 0RF albuterol sulfate [Ventolin HFA] 90 mcg/actuation Hfa Aerosol Inhaler 1 puff inhalation RQ4H PRN (Reason: Wheezing/SOB) Qty: 6.7 0RF ferrous sulfate 324 mg (65 mg iron) Tablet,Delayed Release (Dr/Ec) 324 mg PO DAILY Qty: 30 0RF atorvastatin 40 mg Tablet 40 mg PO BEDTIME Qty: 30 0RF magnesium oxide 400 mg (241.3 mg magnesium) Tablet 400 mg PO BIDPC Qty: 60 0RF levothyroxine 25 mcg Tablet 25 mcg PO DAILY@0600 Qty: 30 0RF cholecalciferol (vitamin D3) [Vitamin D3] 25 mcg (1,000 unit) capsule 25 mcg PO QAM warfarin 2 mg tablet 2 mg PO .COMPLEX Protocol: Dose Management Condition: Wednesday (Week One) Dose/Route: 4 mg Instruction: 2 x 2 mg tablets Condition: Wednesday Dose/Route: 4 mg Instruction: 2 x 2 mg tablets Condition: Wednesday Dose/Route: 2 mg Instruction: 1 x 2 mg tablet Condition: Wednesday Dose/Route: 4 mg Instruction: 2 x 2 mg tablets Condition: Dose/Route: 2 mg Instruction: 1 x 2 mg tablet Condition: Wednesday Dose/Route: 4 mg Instruction: 2 x 2 mg tablets Condition: Wednesday Dose/Route: 2 mg Instruction: 1 x 2 mg tablet Condition: Wednesday (Week Two) Dose/Route: 4 mg Instruction: 2 x 2 mg tablets Condition: Wednesday Dose/Route: 4 mg Instruction: 2 x 2 mg tablets Condition: Wednesday Dose/Route: 2 mg Instruction: 1 x 2 mg tablet Condition: Wednesday Dose/Route: 4 mg Instruction: 2 x 2 mg tablets Condition: Dose/Route: 2 mg Instruction: 1 x 2 mg tablet Condition: Wednesday Dose/Route: 4 mg Instruction: 2 x 2 mg tablets Condition: Wednesday Dose/Route: 2 mg Instruction: 1 x 2 mg tablet Protocol Text: Adjustment Start Date: Wednesday01/16/25 INR Value: 2.8 INR Date: 01/16/25 Recheck Date: 02/06/25 Rx Instructions: 2 mg orally 4MG DAILY OR DIRECTED; 4MG DAILY OR DIRECTED risperidone [Risperdal] 2 mg tablet 4 mg PO BID amantadine HCl 100 mg tablet 100 mg PO BID azithromycin 250 mg tablet PO ferrous sulfate 325 mg (65 mg iron) tablet 325 mg PO QAM guaifenesin [Mucus Relief ER] 600 mg tablet extended release 12hr 1,200 mg PO BID pantoprazole 40 mg tablet,delayed release (DR/EC) 40 mg PO BID dicyclomine 20 mg tablet 20 mg PO BID multivitamin with folic acid [Daily-Stanley (with folic acid)] 400 mcg tablet 1 tab PO DAILY valproic acid 500 mg capsule,delayed release(DR/EC) See Rx Instructions PO DAILY Rx Instructions: 1000mg orally daily; carbamide peroxide [Debrox] otic (ears) Rx Instructions: 5 DROPS EACH EAR EVERY 2 WEEKS FLUCINOLONE topical Rx Instructions: TOPICAL DAILY divalproex 500 mg tablet extended release 24 hr 1,000 mg PO BEDTIME [place]: [facility] [Provider Group, General Surgery] Clinical Impression: Inguinal hernia Print Language: Finnish
[2025-01-25 11:50] LABS: Alanine Aminotransferase 14 U/L (0-40); Albumin Level 3.6 g/dL (3.5-5.0); Alkaline Phosphatase 142 U/L (39-117); Anion Gap 13 (12-20); Aspartate Amino Transferase 32 U/L (5-37); Blood Urea Nitrogen 27 mg/dL (9-16); Calcium 8.9 mg/dL (8.4-10.2); Carbon Dioxide 27 mmol/L (22-29); Chloride 100 mmol/L (96-108); Creatinine Clr Calc Pharmacy 48.8; Estimated Glomerular Filt Rate 46; Potassium 4.6 mmol/L (3.3-5.1); Sodium 135 mmol/L (135-145); Total Protein 6.8 g/dL (6.5-8.0)
[2025-01-25 12:00] VITALS: BP 114/66; PULSE 68; RESP 20; O2SAT 94
[2025-01-25 13:01] LABS: INTERNATIONAL NORM RATIO 1.8 (0.9-1.1); Prothrombin Time 21.6 SEC (11.2-13.5)
[2025-01-25 14:00] VITALS: BP 118/70; PULSE 78; RESP 20; O2SAT 96
--- OUTSIDE RECORDS SUMMARY | 2025-01-25 14:51 | XMS_ITS | Encounter Summary ---
Author Organization [facility] Address [address] [place] [address] Phone Care Team Providers Care Project Construction Assistant Manager Name Role Phone Bc Yates Primary Care Provider [phone]- [phone] Reason for Visit * Reason Comments Med Refill Encounter Details Date Type Department Care Team (Late st Contact Info) Description 01/13/2022 Refill [facility] [address] [place] [address] Trever Lopez MD [address] [facility] [place] [address] Social History Tobacco Use Types [...] [facility] [address] [place] [address] Trever Lopez MD [address] [facility] [facility] [place] [address] documented as of this encounter Visit Diagnoses Not on filedocumented in this encounter Care Teams Project Construction Assistant Manager Relationship Specialty Start Date End Date Bc Yates PCP - General Internal Medicine 10/05/22 documented as of this encounter
--- OUTSIDE RECORDS SUMMARY | 2025-01-25 14:51 | XMS_ITS | Encounter Summary ---
Author Organization [employer] Address [address] [facility] 7 [place] [address] Care Team Providers Care Scale Operator Name Role Phone Bc Hunter MD Primary Care Prov ider Encounter Details Date Type Department Care Team (Late st Contact Info) Description 09/20/2023 Orders Only [facility] [address] [place], [place] [phone] Bc Hunter MD [address] [place] [address] Social History Tobacco Use Types Packs/Day Years [...] Care Team (Late st Contact Info) Description 03/08/2025 9:00 AM EST Office Visit [facility] [address] [place] [address] Bc Hunter MD [address] [place] [address] documented as of this encounter Visit Diagnoses Not on filedocumented in this encounter Additional Health Concerns Assessment Noted Time PHQ-9 Depression Total Score: 0 07/11/19 23 11:26 AM EDT documented as of this encounter Care Teams Scale Operator Relationship Specialty Start Date End Date Bc Hunter MD [address] [place] [address] PCP - General Internal Medicine 01/03/19 documented as of this encounter
--- OUTSIDE RECORDS SUMMARY | 2025-01-25 14:51 | XMS_ITS | Clinical Summary ---
Author Organization [facility] [place] Address [address] [place] [address] [place] [address] Phone Care Team Providers Care Housekeeper Name Role Phone YatesBc Primary Care Provider Allergies No known active allergies Medications D3-50 1.25 MG (01424 UT) capsule TAKE 1 CAPSULE BY MOUTH [...] Visit [facility] [address] [facility] [place] [address] Trever Lopez MD [address] [id number] Health Maintenance Due Date Last Done Comments [...] topic Insurance Medicare Medicaid [place] Care Teams Housekeeper Relationship Specialty Start Date End Date Bc Yates PCP - General Internal Medicine 10/05/22
--- OUTSIDE RECORDS SUMMARY | 2025-01-25 14:51 | XMS_ITS | Encounter Summary ---
Author Organization [facility] Address [address] [place] [address] Phone Care Team Providers Care Renewable Energy Technician Name Role Phone Bc Yates Primary Care Provider [phone]- [phone] Encounter Details Date Type Department Care Team (Late st Contact Info) Description 05/26/2021 Documentation Only [facility] [address] [place] [address] Terver Lopez MD [address] [place] [address] [place] [address] Social History Tobacco Use Types [...] Visit [facility] [address] [place] [address] Trever Lopez MD [address] [place] [address] [place] [address] documented as of this encounter Visit Diagnoses Not on filedocumented in this encounter Care Teams Renewable Energy Technician Relationship Specialty Start Date End Date Bc Yates PCP - General Internal Medicine 10/05/22 documented as of this encounter
--- OUTSIDE RECORDS SUMMARY | 2025-01-25 14:51 | XMS_ITS | Clinical Summary ---
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
--- OUTSIDE RECORDS SUMMARY | 2025-01-25 14:52 | XMS_ITS | Encounter Summary ---
Author Organization [employer] Address [address] [place] [address] [address] [place] [address] Care Team Providers Care Sports Clerk Name Role Phone Bc Hunter MD Primary Care Prov ider Encounter Details Date Type Department Care Team (Late Contact Info) Description 05/18/2022 Orders Only [facility] [address] [place] [address] Bc Hunter MD [address] [place], [place] [phone] S/P aortic valve replacement Social History Tobacco [...] Department Care Team (Late Contact Info) Description 03/08/2025 9:00 AM EST Office Visit [facility] [address] [place] [address] Bc Hunter MD [address] [place], [place] [phone] documented as of this encounter Visit Diagnoses Diagnosis S/P aortic valve replacement Heart valve replaced by other means documented in this encounter Care Teams Sports Clerk Relationship Specialty Start Date End Date Bc Hunter MD [address] [place] [id number] PCP - General Internal Medicine 01/03/19 documented as of this encounter
--- OUTSIDE RECORDS SUMMARY | 2025-01-25 14:52 | XMS_ITS | Encounter Summary ---
Author Organization [employer] Address 75 [facility] 7t [place] [address] Care Team Providers Care Level Vial Setter Name Role Phone Bc Hunter MD Primary Care Prov ider Encounter Details Date Type Department Care Team ([facility] st Contact Info) Description 01/25/2025 Orders Only GENERIC EXTERNAL DATA DEPARTMENT Provider, [...] Description 03/08/2025 9:00 AM EST Office Visit [facility] CHC MED & PEDS [address] [place], [place] [phone] Bc Hunter MD [address] [place], [place] [phone] documented as of this encounter Procedures Procedure Name Priority Date/Time Associated Diagnosis Comments CT HEAD WO CONTRAST Routine 01/25/2025 1 :21 PM EST PROTHROMBIN TIME-INR Routine 01/25/2025 12:13 PM EST CBC WITH AUTO DIFFERENTIAL Routine 01/25/2025 11:24 AM EST COMPREHENSIVE METABOLIC PANEL Routine 01/25/2025 11:24 AM EST documented in this encounter Results * CT Head w/o Contrast (01/25/2025 1:21 PM EST) Anatomical Region Laterality Modality Head, Neck Computed Tomogra phy 01/25/2025 1:21 PM EST Narrative 01/25/2025 1:54 PM EST [address] [address] [address] Scan Report Signed Patient: Chris Zaragoza MR#: [id number] : 1950 Acct:[id number] Age/Sex: 74 / M ADM Date: 01/25/25 Loc: HO.ED Attending Dr: Ordering Physician: Henrietta Ricks DO Date of Service: 01/25/25 Procedure(s): CT head/brain wo IV con Accession Number(s): [id number] cc: Bc Hunter MD; Henrietta Ricks DO Report Number: [id number]: Total DLP = 731.00 mGy-cm Reason for Exam: head trauma EXAMINATION: CT HEAD WITHOUT CONTRAST CLINICAL INFORMATION: Head injury COMPARISON: CT head 12/03/2020 TECHNIQUE: Contiguous axial imaging was performed from the skull base to vertex without intravenous administration of contrast. This CT examination was performed using dose optimization techniques as appropriate, variously including the following: *Automated exposure control *Adjustment of mA and/or kV according to patient size (this includes techniques or standardized protocols for targeted exams where dose is matched to indication/reason for exam; i.e. extremities or head) *Use of iterative reconstruction technique FINDINGS: There is no evidence of acute intracranial hemorrhage or edematous large vessel territorial infarction. No abnormal mass effect or midline shift is seen. Reeves to white matter differentiation is preserved. No abnormal extra-axial fluid collections are identified. Commensurate prominence of the ventricles and sulci is compatible with generalized parenchymal volume loss. There is patchy periventricular and subcortical white matter hypoattenuation, most likely representing microangiopathic disease Bilateral globes grossly appear unremarkable. Bilateral lens extraction. No acute calvarial fracture.. Mucosal thickening of bilateral maxillary, left sphenoid, left frontal sinuses. Mastoid air cells are well-aerated. CT/CT head/brain wo IV con IMPRESSION: No CT evidence of acute intracranial hemorrhage or edematous territorial infarction.. Chronic changes as detailed above. Sinus disease as above. Electronically signed by: Deon Stewart MD 01/25/2025 01:51 PM [facility] Dictated By: Deon Stewart MD Signed By: <Electronically signed by Deon Stewart MD in OV> 01/25/25 1351 DD/ 1321 TD/TT: 01/25/25 1337 Computer Service Technician: KIN Procedure Note Donotuseinterpreter, Image - 01/25/[address] [address] [address] Scan Report Signed Patient: Amos Zaragoza#: [id number] : 1950cct:[id number] Age/Sex: 74 / MADM Date: 01/25/25 Loc: HO.ED Attending Dr: Ordering Physician: Henrietta Ricks DO Date of Service: 01/25/25 Procedure(s): CT head/brain wo IV con Accession Number(s): [id number] cc: Bc Hunter MD; Henrietta Ricks DO Report Number: [id number]: Total DLP = 731.00 mGy-cm Reason for Exam: head trauma EXAMINATION: CT HEAD WITHOUT CONTRAST CLINICAL INFORMATION: Head injury COMPARISON: CT head 12/03/2020 TECHNIQUE: Contiguous axial imaging was performed from the skull base to vertex without intravenous administration of contrast. This CT examination was performed using dose optimization techniques as appropriate, variously including the following: *Automated exposure control *Adjustment of mA and/or kV according to patient size (this includes techniques or standardized protocols for targeted exams where dose is matched to indication/reason for exam; i.e. extremities or head) *Use of iterative reconstruction technique FINDINGS: There is no evidence of acute intracranial hemorrhage or edematous large vessel territorial infarction. No abnormal mass effect or midline shift is seen. Reeves to white matter differentiation is preserved. No abnormal extra-axial fluid collections are identified. Commensurate prominence of the ventricles and sulci is compatible with generalized parenchymal volume loss. There is patchy periventricular and subcortical white matter hypoattenuation, most likely representing microangiopathic disease Bilateral globes grossly appear unremarkable. Bilateral lens extraction. No acute calvarial fracture.. Mucosal thickening of bilateral maxillary, left sphenoid, left frontal sinuses. Mastoid air cells are well-aerated. CT/CT head/brain wo IV con IMPRESSION: No CT evidence of acute intracranial hemorrhage or edematous territorial infarction.. Chronic changes as detailed above. Sinus disease as above. Electronically signed by: Deon Stewart MD 01/25/2025 01:51 PM [facility] Dictated By: Deon Stewart MD Signed By: <Electronically signed by Deon Stewart MD in OV> 01/25/25 1351 DD/ 1321 TD/TT: 01/25/25 1337 Computer Service Technician: KIN us [facility] External Provider IMG CT PROCEDURES Final Result * (ABNORMAL) Prothrombin Time-INR (01/25/2025 12:13 PM EST) Prothrombin Time 21.6(H) 11.2 - 13.5 SEC [facility] INTERNATIONAL NORM RATIO 1.8(H) 0.9 - 1.1 [facility] Comment:INTERNATIONAL NORMAL IZED RATIO (INR) REFERENCE RANGES Reference RangeFor patients not on anticoagulant therapy: 0.9 - 1.1INR ranges for oral anticoagulanttherapy:For prevention and treatment of venous thrombosis and pulmonary embolism: 2.0 - 3.0For acute myocardial infarction with aspirin therapy: 2.0 - 3.0For acute myocardial infarction without aspirin therapy: 3.0 - 4.0For patients with mechanical prosthetic heart valves: 2.5 - 3.5 01/25/2025 12:1 3 PM EST 01/25/2025 12:48 PM EST Generic External Data Provider LAB BLOOD ORDERAB LES Final Result Performing Organization Address City/State/[facility] Co de Phone Number [facility] [address] [place] [phone] * (ABNORMAL) Comprehensive Metabolic Panel (01/25/2025 11:24 AM EST) Sodium 135 135 - 145 mmol/L [facility] Potassium 4.6 3.3 - 5.1 mmol/L [facility] Comment:Slight Hemolysis.Int erpret result with caution. Chloride 100 96 - 108 mmol/L [facility] Carbon Dioxide 27 22 - 29 mmol/L [facility] Anion Gap 13 12 - 20 [facility] Urea Nitrogen (BUN) 27(H) 9 - 16 mg/dL [facility] Creatinine, Serum 1.50(H) 0.5 - 1.4 mg/dL [facility] Creatinine Clr Calc Pharmacy 48.8 [facility] Comment:eGFR (calculated fro m the MDRD study equation) and eCrCl(calculated from the Cockcroft-Gault equation) are based ondifferent parameters and may not yield comparable results.If eCrCl result is absurd, please check patient'sheight/weight. Estimated Glomerular Filt Rate 46 [facility] Comment:Chronic Kidney Disea se: Estimated GFR < 60 mL/min/1.12w4Ziytjo Kidney Disease: Estimated GFR < 15 mL/min/1.73m2 Glucose 121(H) 60 - 115 mg/dL [facility] Calcium 8.9 8.4 - 10.2 mg/dL [facility] Bilirubin, Total 0.5 0.0 - 1.0 mg/dL [facility] Aspartate Amino Transferase 32 5 - 37 U/L [facility] Comment:Slight Hemolysis.Int erpret result with caution. Alanine Aminotransferase 14 0 - 40 U/L [facility] Total Protein 6.8 6.5 - 8.0 g/dL [facility] Albumin Level 3.6 3.5 - 5.0 g/dL [facility] Alkaline Phosphatase 142(H) 39 - 117 U/L [facility] 01/25/2025 11:2 4 AM EST 01/25/2025 11:27 AM EST us Generic External Data Provider LAB BLOOD ORDERAB LES Final Result [facility] [address] [place] [phone] * (ABNORMAL) CBC auto differential (01/25/2025 11:24 AM EST) White Blood Count 6.2 4.8 - 10.8 X10*3/uL [facility] Red Blood Count 3.85(L) 4.60 - 5.80 X10*6/uL [facility] Hemoglobin 11.5(L) 14.0 - 18.0 g/dl [facility] Hematocrit 35.2(L) 42.0 - 52.0 % [facility] Mean Corpuscular Volume 91.4 80.0 - 98.0 fL [facility] Mean Corpuscular Hemoglobin 29.9 27.0 - 33.0 pg [facility] Mean Corpuscular HGB Conc 32.7 31.0 - 36.0 g/dl [facility] Red Cell Distribution Width 15.6 11.0 - 16.0 % [facility] Platelet Count 282 160 - 400 X10*3/uL [facility] Mean Platelet Volume 10.0 9.4 - 12.4 fL [facility] Neutrophils Percent Auto 79.8(H) 45 - 73 % [facility] Imm Gran Pct Auto 0.3 0.0 - 0.4 % [facility] Lymphocytes Percent Auto 10.2(L) 20 - 40 % [facility] Monocytes Percent Auto 8.1 2 - 11 % [facility] Eosinophils Percent Auto 1.1 0 - 4 % [facility] Basophils Percent Auto 0.5 0 - 2 % [facility] NRBC Pct Auto 0.0 0.0 - 0.2 /100WBC [facility] Neutrophils Absolute Auto 4.9 2.0 - 8.3 x10*3/uL [facility] Imm Gran Abs Auto 0.02 0.00 - 0.03 X10*3/uL [facility] Lymphocytes Absolute Auto 0.6(L) 1.2 - 4.9 X10*3/uL [facility] Monocytes Absolute Auto 0.5 0.1 - 1.2 X10*3/uL [facility] Eosinophils Absolute Auto 0.1 0.0 - 0.4 X10*3/uL [facility] Basophils Absolute Auto 0.0 0.0 - 0.2 X10*3/uL [facility] NRBC Abs Auto 0.000 0.0 - 0.012 X10*3/uL [facility] 01/25/2025 11:2 4 AM EST 01/25/2025 11:27 AM EST us Generic External Data Provider LAB BLOOD ORDERAB LES Final Result [facility] [address] [place] [phone] documented in this encounter Visit Diagnoses Not on filedocumented in this encounter Additional Health Concerns Assessment Noted Time PHQ-9 Depression Total Score: 0 01/09/20 25 11:39 AM EDT documented as of this encounter Care Teams Level Vial Setter Relationship Specialty Start Date End Date Bc Hunter MD [address] [place] [phone] PCP - General Internal Medicine 01/03/19 documented as of this encounter
--- OUTSIDE RECORDS SUMMARY | 2025-01-25 14:52 | XMS_ITS | Encounter Summary ---
Author Organization [employer] Address [address] [facility] 7 [place] [address] Care Team Providers Care Rn Community Name Role Phone Bc Hunter MD Primary Care Prov ider Reason for Visit * Reason Onset Date Comments Nurse Triage 2024 Encounter Details Date Type Department Care Team ([facility] st Contact Info) Description 2024 Telephone [facility] MEDICINE [address] [place] [address] Bc Hunter MD [address] [place], [place] [phone] Nurse Triage Social History Tobacco Use Types [...] EDT called pt to triage, spoke to program director group work, ANTONIO. pt was seen on 06/14 by [facility] pulmonology on 06/14 and due to some distress was sent to the ER for evaluation. pt diagnosed with Pneumonia and put onantibiotics x5 days. worker states pt eating and drinking, not having any fevers or severe/sustained sob, or other associated symptoms. given appt Wednesday with [facility] at 1:00 for exam [...] 2024 3:49 PM EDT Tc from Patient STENCIL TYPIST to report ED visit on : Date: 06/14 Hospital: [facility] Seen for: pneumonia Symptomatic Yes *if yes message should go to Triage Patient advised will forward to team nurse for follow up [phone] pt documented in this encounter Plan of Treatment Upcoming Encounters Date Type Department Care Team (Late st Contact Info) Description 03/08/2025 9:00 AM EST Office Visit [facility] MED & PEDS [address] [place] [address] Bc Hunter MD [address] [place] [address] documented as of this encounter Visit Diagnoses Not on filedocumented in this encounter Additional Health Concerns Assessment Noted Time PHQ-9 Depression Total Score: 0 09/30/19 24 11:02 AM EDT documented as of this encounter Care Teams Rn Community Relationship Specialty Start Date End Date Bc Hunter MD [address] [place] [address] PCP - General Internal Medicine 01/03/19 documented as of this encounter
--- OUTSIDE RECORDS SUMMARY | 2025-01-25 14:52 | XMS_ITS | Encounter Summary ---
Author Organization [employer] Address 75 [facility] 7 [place] [address] Care Team Providers Care Custodial Services Manager Name Role Phone Bc Hunter MD Primary Care Prov ider Reason for Visit * Reason Comments Med Change Request Encounter Details Date Type Department Care Team ([facility] Contact Info) Description 07/19/2023 Refill [facility] CHC MED & PEDS [address] [place] [address] Oralia Mazariegos FNP [address] [place] [address] Social History Tobacco Use Types Packs/Day Years [...] Description 03/08/2025 9:00 AM EST Office Visit [facility] MED & PEDS [address] [place] [address] Bc Hunter MD [address] [place] [address] documented as of this encounter Visit Diagnoses Not on filedocumented in this encounter Additional Health Concerns Assessment Noted Time PHQ-9 Depression Total Score: 0 07/11/19 23 11:26 AM EDT documented as of this encounter Care Teams Custodial Services Manager Relationship Specialty Start Date End Date Bc Hunter MD [address] [place] [address] PCP - General Internal Medicine 01/03/19 documented as of this encounter
--- OUTSIDE RECORDS SUMMARY | 2025-01-25 14:52 | XMS_ITS | Encounter Summary ---
Author Organization [employer] Address 75 [facility] 7 [place] [address] Care Team Providers Care Metal Tube Cutter Name Role Phone Bc Hunter MD Primary Care Prov ider Reason for Visit * Reason Onset Date Comments Referral 12/06/2023 Encounter Details Date Type Department Care Team ([facility] st Contact Info) Description 12/06/2023 Telephone [facility] MEDICINE [address] [place] [address] Bc Hunter MD [address] [place], [place] [phone] Referral Social History Tobacco Use Types Packs/Day [...] to be seen by Sarkis in the [place] location ifpossible documented in this encounter Plan of Treatment Upcoming Encounters Date Type Department Care Team (Late st Contact Info) Description 03/08/2025 9:00 AM EST Office Visit [facility] CHC MED & PEDS [address] [place] [address] Bc Hunter MD [address] [place] [address] documented as of this encounter Visit Diagnoses Not on filedocumented in this encounter Additional Health Concerns Assessment Noted Time PHQ-9 Depression Total Score: 0 09/30/19 24 11:02 AM EDT documented as of this encounter Care Teams Metal Tube Cutter Relationship Specialty Start Date End Date Bc Hunter MD [address] [place] [address] PCP - General Internal Medicine 01/03/19 documented as of this encounter
--- OUTSIDE RECORDS SUMMARY | 2025-01-25 14:52 | XMS_ITS | Encounter Summary ---
Author Organization [employer] Address [address] [place] [address] Care Team Providers Care Cap Inspector Name Role Phone Bc Hunter MD Primary Care Prov ider Reason for Visit * Reason Comments Med Refill Encounter Details Date Type Department Care Team (Late Contact Info) Description 10/25/2022 Refill [facility] MED & PEDS [address] [place] [address] Bc Hunter MD [address] [place] [address] Social History Tobacco Use Types Packs/Day Years [...] Description 03/08/2025 9:00 AM EST Office Visit [facility] MED & PEDS [address] [place] [address] Bc Hunter MD [address] [place] [address] documented as of this encounter Visit Diagnoses Not on filedocumented in this encounter Additional Health Concerns Assessment Noted Time PHQ-9 Depression Total Score: 0 07/11/19 23 11:26 AM EDT documented as of this encounter Care Teams Cap Inspector Relationship Specialty Start Date End Date Bc Hunter MD [address] [place] [phone] PCP - General Internal Medicine 01/03/19 documented as of this encounter
--- OUTSIDE RECORDS SUMMARY | 2025-01-25 14:52 | XMS_ITS | Encounter Summary ---
Author Organization [employer] Address 75 [facility] 7 [place] [address] Care Team Providers Care Taxi Servicer Name Role Phone Bc Hunter MD Primary Care Prov ider Reason for Visit * Reason Onset Date Comments Nurse Triage 01/25/2025 Encounter Details Date Type Department Care Team ([facility] st Contact Info) Description 01/25/2025 Telephone [facility] MEDICINE [address] [place] [address] Bc Hunter MD [address] [place], [place] [phone] Nurse Triage Social History Tobacco Use Types [...] encounter Miscellaneous Notes * Telephone Encounter - Timmy Fernando RN - 01/25/2025 9:48 AM EST TC placed to patient. Patient staff from the intermediate answered and reported patient has had body aches and headaches x 2 days. Denies any fevers. Staff reported they wanted patient to be seen by a provider. RN scheduled an [facility] a [facility]. Staff verbalized understanding. Protocol Used: Muscle Aches and Body Pain (Adult) Protocol-Based Disposition: See in Office or Video Visit within 3 Days Video visit offer not recorded Positive Triage Questions: * Patient wants to be seen * Muscle aches or pain and present < 7 days * All higher-acuity triage questions were negative Care Advice Discussed: * Reassurance and Education - Mild Muscle Pain * Reasons To Call Back - Severe pain lasts over 2 hours after pain medicines - Moderate muscle aches or pain lasts more than 3 days - Muscle aches or pain lasts longer than 7 days - Fever occurs - You become worse * Telephone Encounter - Sasha Mejia - 01/25/2025 8:47 AM EST Symptom: Body Aches Outcome: Schedule an appointment to be seen within 3 days Reason: Caller denied all higher acuity questions PCP Dr. Yates documented in this encounter Plan of Treatment Upcoming Encounters Date Type Department Care Team (Late st Contact Info) Description 03/08/2025 9:00 AM EST Office Visit [facility] CHC MED & PEDS [address] [place] [address] Bc Hunter MD [address] [place] [address] documented as of this encounter Visit Diagnoses Not on filedocumented in this encounter Additional Health Concerns Assessment Noted Time PHQ-9 Depression Total Score: 0 01/09/20 25 11:39 AM EDT documented as of this encounter Care Teams Taxi Servicer Relationship Specialty Start Date End Date Bc Hunter MD [address] [place] [address] PCP - General Internal Medicine 01/03/19 documented as of this encounter
--- OUTSIDE RECORDS SUMMARY | 2025-01-25 14:52 | XMS_ITS | Encounter Summary ---
Author Organization [employer] Address 75 [facility] 7 [place] [address] Care Team Providers Care Fall Internship Name Role Phone Bc Hunter MD Primary Care Prov ider Reason for Visit * Reason Comments Med Refill Encounter Details Date Type Department Care Team ([facility] st Contact Info) Description 05/18/2023 Refill [facility] CHC MED & PEDS [address] [place] [address] Bc Hunter MD [address] [place] [address] Social History Tobacco Use Types Packs/Day Years [...] [facility] [address] [place] [address] Bc Hunter MD [address] [place] [address] documented as of this encounter Visit Diagnoses Not on filedocumented in this encounter Additional Health Concerns Assessment Noted Time PHQ-9 Depression Total Score: 0 07/11/19 23 11:26 AM EDT documented as of this encounter Care Teams Fall Internship Relationship Specialty Start Date End Date Bc Hunter MD [address] [place] [address] PCP - General Internal Medicine 01/03/19 documented as of this encounter
--- OUTSIDE RECORDS SUMMARY | 2025-01-25 14:52 | XMS_ITS | Encounter Summary ---
Author Organization [employer] Address 75 [facility] 7 [place] [address] Care Team Providers Care Computing Tutor Name Role Phone Bc Hunter MD Primary Care Prov ider Reason for Visit * Reason Onset Date Comments Nurse Triage 11/22/2024 Encounter Details Date Type Department Care Team ([facility] st Contact Info) Description 11/22/2024 Telephone [facility] MEDICINE [address] [place] [address] Bc Hunter MD [address] [place], [place] [phone] Nurse Triage Social History Tobacco Use Types [...] EDT Triage call to Krystin, staff at [facility] where Pt resides. Pt is in [...] be seen by provider. Offered apt in [facility] tomorrow morning 915am but, unable to go at that time. Pt is given ASK apt 11/24/[address]Dr[address] Richard in [facility]. Pt is offered to come to [facility] in [facility] but, declined today, Krystin will considerthis if Pt gets worse before 11/24 apt. [facility] apt will be canceled [...] caller accepted this outcome. Contact Krystin at [phone] documented in this encounter Plan of Treatment Upcoming Encounters Date Type Department Care Team ([facility] st Contact Info) Description 03/08/2025 9:00 AM EST Office Visit [facility] MED & PEDS [address] [place] [address] Bc Hunter MD [address] [place] [address] documented as of this encounter Visit Diagnoses Not on filedocumented in this encounter Additional Health Concerns Assessment Noted Time PHQ-9 Depression Total Score: 0 09/30/19 24 11:02 AM EDT documented as of this encounter Care Teams Computing Tutor Relationship Specialty Start Date End Date Bc Hunter MD [address] [place] [address] PCP - General Internal Medicine 01/03/19 documented as of this encounter
--- OUTSIDE RECORDS SUMMARY | 2025-01-25 14:52 | XMS_ITS | Encounter Summary ---
Author Organization [employer] Address [address] [facility] [address] 7t [place] [address] Care Team Providers Care Wild Life Manager Name Role Phone Bc Hunter MD Primary Care Prov ider Encounter Details Date Type Department Care Team (Latest Contact Info) Description 01/25/2025 Travel Social History Tobacco Use Types Packs/Day [...] [facility] MED & PEDS [address] [place] [address] Bc Hunter MD [address] [place] [address] documented as of this encounter Visit Diagnoses Not on filedocumented in this encounter Additional Health Concerns Assessment Noted Time PHQ-9 Depression Total Score: 0 01/09/20 25 11:39 AM EDT documented as of this encounter Care Teams Wild Life Manager Relationship Specialty Start Date End Date Bc Hunter MD [address] [place] [address] PCP - General Internal Medicine 01/03/19 documented as of this encounter
--- OUTSIDE RECORDS SUMMARY | 2025-01-25 14:52 | XMS_ITS | Encounter Summary ---
Author Organization [employer] Address [address] [facility] 7 [place] [address] Care Team Providers Care Collector Name Role Phone Bc Hunter MD Primary Care Prov ider Reason for Visit * Reason Comments Med Refill Encounter Details Date Type Department Care Team ([facility] st Contact Info) Description 08/06/2024 Refill [facility] MEDICINE [address] [place] [address] Bc Hunter MD [address] [place], [place] [phone] Social History Tobacco Use Types Packs/Day Years [...] Description 03/08/2025 9:00 AM EST Office Visit [facility] CHC MED & PEDS [address] [place] [address] Bc Hunter MD [address] [place] [address] documented as of this encounter Visit Diagnoses Not on filedocumented in this encounter Additional Health Concerns Assessment Noted Time PHQ-9 Depression Total Score: 0 09/30/19 24 11:02 AM EDT documented as of this encounter Care Teams Collector Relationship Specialty Start Date End Date Bc Hunter MD [address] [place] [address] PCP - General Internal Medicine 01/03/19 documented as of this encounter
--- OUTSIDE RECORDS SUMMARY | 2025-01-25 14:52 | XMS_ITS | Clinical Summary ---
Author Organization [employer] Address [address] [place] [address] 7t [place] [address] Care Team Providers Care Jewelry Cutter Name Role Phone Bc Hunter MD [...] hr tabletIndications :Mild chronic obstructive pulmonary disease (CMS/HCC) (HCC),Dyspnea on exertion Take 2 tablets (1,200 mg) by mouth 2 times daily. Do not crush, chew, or split. 10 tablet 025 2025 Active Multiple Vitamin (Daily-Stanley Multivitamin) tablet Take 1 tablet by mouth in the morning. TAKE 1 TABLET BY MOUTH EVERY DAY WITH FOOD 90 tablet 3 025 Active warfarin (Coumadin) 2 MG tabletIndications :S/P aortic valve replacement TAKE 1-2 TABLETS EVERY EVENING DIRECTED BY [facility] 180 tablet 1 025 Active Ventolin HFA 108 (90 Base) MCG/ACT inhaler INHALE 2 PUFFS EVERY 4 HOURS NEEDED 18 g 3 025 Active albuterol 108 (90 Base) MCG/ACT inhalerIndication s:COPD exacerbation (CMS/HCC) ([facility]) Inhale 2 puffs every 6 (six) hours if needed for wheezing. 2 puffs every 6 hours for the next 2 days ( 11/24/2024 and 11/25/2024) 18 g 1 025 2025 Active guaiFENesin (Mucinex) 600 MG 12 hr tabletIndications :COPD exacerbation (CMS/HCC) ([facility]) Take 2 tablets (1,200 mg) by mouth 2 times daily. Do not crush, chew, or split. 10 tablet 11 025 2025 Active magnesium oxide (Mag-Ox) 400 (240 Mg) MG tabletIndications :Mixed hyperlipidemia TAKE 1 TABLET 2 times a day (8 AM and 8 PM) 180 tablet 1 025 Active loratadine (Claritin) 10 MG tabletIndications :Congestion of nasal sinus TAKE 1 TABLET (10 MG) BY MOUTH DAILY IN THE MORNING 90 tablet 2 025 Active levothyroxine (Synthroid, Levoxyl) 25 MCG tabletIndications :Acquired hypothyroidism Take 1 tablet (25 mcg) by mouth before breakfast. 90 tablet 3 025 Active dicyclomine (Bentyl) 20 MG tabletIndications :Irritable bowel syndrome with diarrhea TAKE 1 TABLET BY MOUTH BEFORE BREAKFAST AND BEFORE EVENING MEAL. 180 tablet 1 025 Active atorvastatin (Lipitor) 40 MG tabletIndications :Mixed hyperlipidemia 1 tab at 8 PM 90 tablet 1 025 Active ferrous sulfate 325 (65 Fe) [...] EAR PAIN (EVERY OTHER WEEK). 30 mL Active ketoconazole (NIZOral) 2 % shampooIndication s:Seborrheic dermatitis of scalp APPLY TOPICALLY TWICE WEEKLY, USE TO WASH OUT FLUOCINONIDE OIL IN THE MORNING 3 TIMES WEEKLY DIRECTED 120 mL 2 025 Active atorvastatin (Lipitor) 40 MG tabletIndications :Mixed hyperlipidemia TAKE 1 TABLET BY MOUTH EVERY DAY IN THE EVENING 90 tablet 1 Active pantoprazole (ProtoNix) 40 MG EC tabletIndications :Gastroesophageal reflux disease without esophagitis TAKE 1 TABLET BY MOUTH TWICE A DAY IN THE MORNING AND IN THE EVENING 180 tablet 1 025 Active Trelegy Ellipta 100-62.5-25 MCG/ACT aerosol powder INHALE 1 PUFF IN THE MORNING 60 each 3 025 Active Trelegy Ellipta 100-62.5-25 MCG/ACT aerosol powder Inhale 1 puff in the morning. 60 each 3 025 2024 Discontinued Active Problems Problem Noted Date Diagnosed Date Psychoactive substance abuse 10/02/2024 Cigarette nicotine dependence without complicati on 06/19/2024 Nodule of left lung 04/26/2024 Assessment & Plan (01/08/2025 12:41 PM EDT): Told to follow up with store manager, previously refused undergoing biopsy Assessment & Plan (10/02/2024 1:15 PM EDT): Patient does not want to undergo biopsy, will follow up pneumology reccomendations Assessment & Plan (04/26/2024 11:54 AM EST): Will order a follow up LDCT scan, youth minister was told to contact pulmonology office Seborrheic dermatitis of scalp 01/26/2023 Assessment & Plan (07/20/2023 8:52 PM EDT): Followed by [facility] Derm clinic Refill of topical [...] valve replacement 04/28/2022 Overview (07/20/2023): Followed by [facility] Assessment & Plan (07/20/2023 8:46 PM EDT): Cardiology consult scheduled 07/20/23 No reported hx of bleeding, no reported chest pain/shortness of breath Discussed with PCP and [facility] (Lori FLETCHER). Plan to bridge pt from Eliquis to Coumadin. May DC Eliquis once Coumadin therapeutic Coumadin dosinmg on Wednesday and Wednesday 4mg all other days of the week Plan: [facility] to reach out to correction [...] no contraindications. Stage 3a chronic kidney disease (CMS/HCC) 2018 Assessment & Plan (10/02/2024 1:14 PM [...] resolved, smoking cessation discussed, follow up with store manager Other schizophrenia 09/22/2011 Overview (07/20/2023): Living in [facility] Assessment & Plan (10/02/2024 1:14 PM EDT): [...] Encounters Date Type Department Care Team Description 01/25/2025 Orders Only GENERIC EXTERNAL DATA DEPARTMENT Provider, Generic External Data 01/25/2025 Travel 01/25/2025 Telephone [facility] MEDICINE [address] [place] [address] Bc Hunter MD Nurse Triage 01/16/2025 Orders Only GENERIC EXTERNAL DATA DEPARTMENT Provider, Generic External Data 01/15/2025 Refill [facility] MED & PEDS [address] [place] [address] Bc Hunter MD 01/08/2025 11:15 AM EDT Office Visit [facility] MED & PEDS [address] [place] [address] Bc Hunter MD Hyperlipemia, mixed (Primary Dx); Other iron deficiency anemia; Acquired hypothyroidism; Mild chronic obstructive pulmonary disease (CMS/HCC) (HCC); Nodule of left lung 01/08/2025 Travel 01/04/2025 Telephone [facility] MED & PEDS [address] [place] [address] Bc Hunter MD chart prep 01/02/2025 Orders Only GENERIC EXTERNAL DATA DEPARTMENT Provider, Generic External Data 12/29/2024 Telephone [facility] [address] [place] [address] Bc Hunter MD INR LEVEL 12/29/2024 Orders Only GENERIC EXTERNAL DATA DEPARTMENT Provider, Generic External Data 12/05/2024 Orders Only GENERIC EXTERNAL DATA DEPARTMENT Provider, Generic External Data 11/29/2024 Refill [facility] MED & PEDS [address] [place] [address] Bc Hunter MD Seborrheic dermatitis of scalp; Mixed hyperlipidemia; Gastroesophageal reflux disease without esophagitis 11/29/2024 Refill [facility] PED[facility] [address] [place] [address] Zafar Richard MD Gastroesophageal reflux disease without esophagitis 11/29/2024 Refill [facility] PED[facility] [address] [place] [address] Bc Hunter MD Mixed hyperlipidemia 11/28/2024 Orders Only GENERIC EXTERNAL DATA DEPARTMENT Provider, Generic External Data 11/24/2024 2:30 PM EDT Office Visit [facility] MED & PEDS [address] [place] [address] Zafar Richard MD COPD exacerbation (CMS/HCC) (Primary Dx); Cigarette nicotine dependence without complication; Mixed hyperlipidemia; Congestion of nasal sinus; Acquired hypothyroidism; Irritable bowel syndrome with diarrhea; Iron deficiency anemia due to chronic blood loss 11/24/2024 Telephone [facility] [address] [place] [address] Bc Hunter MD Medication Question 11/24/2024 Refill [facility] PED[facility] [address] [place] [address] Bc Hunter MD Cigarette nicotine dependence without complication 11/24/2024 Travel 11/24/2024 Orders Only GENERIC EXTERNAL DATA DEPARTMENT Provider, Generic External Data 11/23/2024 Telephone [facility] [address] [place] [address] Bc Hunter MD CRITICAL LAB 11/23/2024 Orders Only GENERIC EXTERNAL DATA DEPARTMENT Provider, Generic External Data 11/23/2024 Telephone [facility] CHC MED & PEDS [address] [place] [address] Bc Hunter MD chart prep 11/22/2024 Telephone [facility] [address] [place] [address] Bc Hunter MD Nurse Triage 11/18/2024 Refill [facility] CH[facility] MED & PEDS [address] [place] [address] Bc Hunter MD Mixed hyperlipidemia 11/15/2024 Telephone [facility] CH[facility] MED & PEDS [address] [place] [address] Bc Hunter MD Call Back Request 11/06/2024 Orders Only GENERIC EXTERNAL DATA DEPARTMENT Provider, Generic External Data 10/30/2024 Telephone [facility] CH[facility] MED & PEDS [address] [place] [address] Bc Hunter MD Lab Orders 10/29/2024 Refill [facility] CH[facility] MED & PEDS [address] [place] [address] Bc Hunter MD from Last 3 Months [...] Description 03/08/2025 9:00 AM EST Office Visit [facility] MED [facility] PEDS [address] [place] [address] Bc Hunter MD [address] [place], [place] [phone] Health Maintenance Due Date Last Done Comments [...] PROTHROMBIN TIME-INR Routine 01/25/2025 12:13 PM EST COMPREHENSIVE METABOLIC PANEL Routine 01/25/2025 11:24 AM EST CBC WITH AUTO DIFFERENTIAL Routine 01/25/2025 11:24 AM EST PROTHROMBIN TIME WHOLE BLD POC Routine 01/16/2025 [...] 10/30/2024 1:08 PM EDT Screening for tuberculosis LIPID PANEL, STANDARD Routine 05/06/2023 11:48 AM EST Hyperlipemia, mixed HEPATITIS C AB W/REFL TO HCV RNA, QN, PCR Routine 07/10/2022 11:31 AM EDT S/P aortic valve replacement Pre-op evaluation from Last 3 Months or Most Recently Relevant to Health Maintenance Results * CT Head w/o Contrast (01/25/2025 1:21 PM EST) Anatomical Region Laterality Modality Head, Neck Computed Tomogra phy 01/25/2025 1:21 PM EST Narrative 01/25/2025 1:54 PM EST [address] [address] [address] Scan Report Signed Patient: Chris Zaragoza MR#: [id number] : 1950 Acct:[id number] Age/Sex: 74 / M ADM Date: 01/25/25 Loc: HO.ED Attending Dr: Ordering Physician: Henrietta Ricks DO Date of Service: 01/25/25 Procedure(s): CT head/brain wo IV con Accession Number(s): [id number] cc: Bc Hunter MD; Henrietta Ricks Report Number: [id number]: Total DLP = 731.00 mGy-cm Reason for [...] by: Deon Stewart MD 01/25/2025 01:51 PM [facility] Dictated By: Deon Stewart MD Signed By: <Electronically signed by Deon Stewart MD in OV> 01/25/25 1351 DD/ 1321 TD/TT: 01/25/25 1337 Comic Writer: KIN Procedure Note Donotuseinterpreter, Image - 01/25/[address] [address] [address] Scan Report Signed Patient: Amos Zaragoza#: [id number] : 1950cct:[id number] Age/Sex: 74 / MADM Date: 01/25/25 Loc: HO.ED Attending Dr: Ordering Physician: Henrietta Ricks DO Date of Service: 01/25/25 Procedure(s): CT head/brain wo IV con Accession Number(s): [id number] cc: Bc Hunter MD; Henrietta Ricks DO Report Number: [id number]: Total DLP = 731.00 mGy-cm Reason for [...] by: Deon Stewart MD 01/25/2025 01:51 PM [facility] Dictated By: Deon Stewart MD Signed By: <Electronically signed by Deon Stewart MD in OV> 01/25/25 1351 DD/ 1321 TD/TT: 01/25/25 1337 Comic Writer: KIN [facility] External Provider IMG CT PROCEDURES Final Result * (ABNORMAL) Prothrombin Time-INR (01/25/2025 12:13 PM EST) Only the most recent of2 resultswithin the time period is included. Prothrombin Time 21.6(H) 11.2 - 13.5 SEC [facility] INTERNATIONAL NORM RATIO 1.8(H) 0.9 - 1.1 [facility] Comment:INTERNATIONAL NORMAL IZED RATIO (INR) REFERENCE [...] ORDERAB LES Final Result Performing Organization Address City/State/[facility] Co de Phone Number [facility] [address] [place] [phone] * (ABNORMAL) CBC auto differential (01/25/2025 11:24 AM EST) White Blood Count 6.2 4.8 - 10.8 X10*3/uL [facility] Red Blood Count 3.85(L) 4.60 - 5.80 X10*6/uL [facility] Hemoglobin 11.5(L) 14.0 - 18.0 g/dl [facility] Hematocrit 35.2(L) 42.0 - 52.0 % [facility] Mean Corpuscular Volume 91.4 80.0 - 98.0 fL [facility] Mean Corpuscular Hemoglobin 29.9 27.0 - 33.0 pg [facility] Mean Corpuscular HGB Conc 32.7 31.0 - 36.0 g/dl [facility] Red Cell Distribution Width 15.6 11.0 - 16.0 % [facility] Platelet Count 282 160 - 400 X10*3/uL [facility] Mean Platelet Volume 10.0 9.4 - 12.4 fL [facility] Neutrophils Percent Auto 79.8(H) 45 - 73 % [facility] Imm Gran Pct Auto 0.3 0.0 - 0.4 % [facility] Lymphocytes Percent Auto 10.2(L) 20 - 40 % [facility] Monocytes Percent Auto 8.1 2 - 11 % [facility] Eosinophils Percent Auto 1.1 0 - 4 % [facility] Basophils Percent Auto 0.5 0 - 2 % [facility] NRBC Pct Auto 0.0 0.0 - 0.2 /100WBC [facility] Neutrophils Absolute Auto 4.9 2.0 - 8.3 x10*3/uL [facility] Imm Gran Abs Auto 0.02 0.00 - 0.03 X10*3/uL [facility] Lymphocytes Absolute Auto 0.6(L) 1.2 - 4.9 X10*3/uL [facility] Monocytes Absolute Auto 0.5 0.1 - 1.2 X10*3/uL [facility] Eosinophils Absolute Auto 0.1 0.0 - 0.4 X10*3/uL [facility] Basophils Absolute Auto 0.0 0.0 - 0.2 X10*3/uL [facility] NRBC Abs Auto 0.000 0.0 - 0.012 X10*3/uL [facility] 01/25/2025 11:2 4 AM EST 01/25/2025 11:27 AM EST us Generic External Data Provider LAB BLOOD ORDERAB LES Final Result [facility] [address] [place] [phone] * (ABNORMAL) Comprehensive Metabolic Panel (01/25/2025 11:24 AM EST) Sodium 135 135 - 145 mmol/L [facility] Potassium 4.6 3.3 - 5.1 mmol/L [facility] Comment:Slight Hemolysis.Int erpret result with caution. Chloride 100 96 - 108 mmol/L [facility] Carbon Dioxide 27 22 - 29 mmol/L [facility] Anion Gap 13 12 - 20 [facility] Urea Nitrogen (BUN) 27(H) 9 - 16 mg/dL [facility] Creatinine, Serum 1.50(H) 0.5 - 1.4 mg/dL [facility] Creatinine Clr Calc Pharmacy 48.8 [facility] Comment:eGFR (calculated fro m the MDRD study equation) and eCrCl(calculated from the Cockcroft-Gault equation) are based ondifferent parameters and may not yield comparable results.If eCrCl result is absurd, please check patient'sheight/weight. Estimated Glomerular Filt Rate 46 [facility] Comment:Chronic Kidney Disea se: Estimated GFR < 60 mL/min/1.72c7Ymarjm Kidney Disease: Estimated GFR < 15 mL/min/1.73m2 Glucose 121(H) 60 - 115 mg/dL [facility] Calcium 8.9 8.4 - 10.2 mg/dL [facility] Bilirubin, Total 0.5 0.0 - 1.0 mg/dL [facility] Aspartate Amino Transferase 32 5 - 37 U/L [facility] Comment:Slight Hemolysis.Int erpret result with caution. Alanine Aminotransferase 14 0 - 40 U/L [facility] Total Protein 6.8 6.5 - 8.0 g/dL [facility] Albumin Level 3.6 3.5 - 5.0 g/dL [facility] Alkaline Phosphatase 142(H) 39 - 117 U/L [facility] 01/25/2025 11:2 4 AM EST 01/25/2025 11:27 AM EST Generic External Data Provider LAB BLOOD ORDERAB LES Final Result Performing Organization Address [facility] Co de Phone Number [facility] [address] [place] [phone] * (ABNORMAL) PROTHROMBIN TIME WHOLE BLD POC (01/16/2025 10:10 AM EDT) Only the most recent of8 resultswithin the time period is included. Protime 34.1(H) 11.1 - 13.5 sec [facility] 01/16/2025 10:1 0 AM EDT 01/16/2025 10:12 AM EDT Generic External Data Provider LAB BLOOD ORDERAB LES Final Result Performing Organization Address [facility] Phone Number [facility] [address] [place] [phone] * (ABNORMAL) ~PT, ~INR - ANTI COAG CLINIC (01/16/2025 10:10 AM EDT) Only the most recent of8 resultswithin the time period is included. Prothrombin Time INR 2.8(H) 0.9 - 1.1 [facility] Comment:METER #: [id number] TERNATIONAL NORMALIZED RATIO (INR) REFERENCE RANGES Reference [...] 0 AM EDT 01/16/2025 10:12 AM EDT Generic External Data Provider LAB BLOOD ORDERAB LES Final Result Performing Organization Address [facility]/ZIP Co de Phone Number [facility] [address] [place] [phone] * T-SPOT??.TB (10/30/2024 1:08 PM EDT) [facility] Signature T Spot TB Negative Negative [facility] Comment:A negative test resu lt does [...] as aquantitative test. TS PANEL A 0 [facility] TS PANEL B 1 [facility] Negative Control Passed [facility] Positive Control Passed [facility] Comment:For additional infor matjun, please refer tohttp://education.[employer]/faq/DXP248(This link is being provided for informational/educational purposes only.)THIS TEST WAS PERFORMED AT:[employer] [id number] [place] [address]RMFVXHCPITER CARUSO MD,PHD 10/30/2024 1:08 PM EDT 10/30/2024 2:22 PM EDT us Bc Rascon MD LAB BLOOD ORDERABL ES Final Result Performing Organization Address [facility]/ZIP Co de Phone Number [facility] [address] [place] [phone] * Lipid Panel, Standard (05/06/2023 11:48 AM EST) Triglycerides 61 <150 mg/dL [facility] Comment:Desirable Triglyceri de: less than 150 mg/dLBorderline High Triglyceride 150-199 mg/dLHigh Triglyceride: 200-499 mg/dLVery High Triglyceride: greater than or equal to 5OO mg/dL Cholesterol 166 <200 mg/dL [facility] Comment:Desirable Cholestero l: less than 200 mg/dLBorderline High Cholesterol: 200-239 mg/dLHigh Cholesterol: greater than 239 mg/dL LDL Cholesterol Calculated 94 <100 mg/dL [facility] Comment:Desirable LDL: less than 100 mg/dLNear Optimal/Above Optimal LDL: 110- 129 mg/dLBorderline High LDL: 130-159 mg/dLHigh LDL: 160-189 mg/dLVery High LDL: greater than or equal to 190 mg/dL HDL Cholesterol 60 >40 mg/dL [facility] Comment:Desirable HDL: great er than 40 mg/dL Note: This HDL assay may give artificially low results in patients with liver disease. Blood Venous blood specimen / Unknown 05/06/2023 11:48 AM EST 05/06/2023 2:09 PM EST Bc Rascon MD LAB BLOOD ORDERABL ES Final Result [facility] [address] [place] [phone] * Hepatitis C Antibody with Reflex to HCV, RNA, Quantitative, Real-Time PCR (07/10/2022 11:31 AM EDT) Hepatitis C Antibody NON-REACT DEZ NON-REACT DEZ [facility] Index 0.09 <1.00 [facility] Comment: HCV antibody was non-reactive. There is no laboratory evidence of HCV infection. In most cases, no further action is required. However, if recent HCV exposure is suspected, a test for HCV RNA (test code 54610) is suggested. For additional information please refer to http://education.[employer]/faq/TVH28v5 (This link is being provided for informational/ educational purposes only.) Blood Venous blood specimen / Unknown 07/10/2022 11:31 AM EDT 07/10/2022 11:32 AM EDT Narrative [facility] - 07/11/2022 5:06 AM EDT FASTING:NO FASTING: NO Bc Rascon MD LAB BLOOD ORDERABL ES Final Result [facility] [address], [place] [address] [facility] [address] [place] [phone] from Last 3 Months or Most Recently Relevant to Health Maintenance Insurance [place] [address] [place] [id number] [facility] STANDARD Care Teams Jewelry Cutter Relationship Specialty Start Date End Date Bc Hunter MD [address] [place] [phone] PCP - General Internal Medicine 01/03/19
--- OUTSIDE RECORDS SUMMARY | 2025-01-25 14:52 | XMS_ITS | Encounter Summary ---
Author Organization [employer] Address [address] [place] [phone] Care Team Providers Care Supervisor Roving Name Role Phone Bc Hunter MD Primary Care Prov ider Encounter Details Date Type Department Care Team (Late Contact Info) Description 02/24/2022 Telephone [facility] MEDICINE [address] [place], [place] [phone] Bc Hunter MD [address] [place], [place] [phone] Social History Tobacco Use Types Packs/Day Years [...] Description 03/08/2025 9:00 AM EST Office Visit [facility] MED & PEDS [address] [place], [place] [phone] Bc Hunter MD [address] [place], [place] [phone] documented as of this encounter Visit Diagnoses Not on filedocumented in this encounter Care Teams Supervisor Roving Relationship Specialty Start Date End Date Bc Hunter MD [address] [place], [place] [phone] PCP - General Internal Medicine 01/03/19 documented as of this encounter
--- OUTSIDE RECORDS SUMMARY | 2025-01-25 14:52 | XMS_ITS | Encounter Summary ---
Author Organization [employer] Address [address] [place] [address] [place] [address] Care Team Providers Care Lan Specialist Name Role Phone Bc Hunter MD Primary Care Prov ider Reason for Visit * Reason Onset Date Comments Med Refill 09/21/2022 Encounter Details Date Type Department Care Team ([facility] st Contact Info) Description 09/21/2022 Telephone [facility] MED & PEDS [address] [place] [address] Bc Hunter MD [address] [place] [address] Med Refill Social History Tobacco Use Types [...] 09/23/2022 8:28 AM EDT Pt managed by [facility] coumadin clinic. Last INR of 3.1 noted 09/17/22. Will forward request for Rx to covering provider to review. * Telephone Encounter - Ping Nettles - 09/21/2022 10:39 AM EDT Tc from pt requesting med refill on Warfarin [address] [facility]/pharmacy #[id number] - [place], [place] - [address] [facility] Please sent to documented in this encounter Plan of Treatment Upcoming Encounters Date Type Department Care Team (Late st Contact Info) Description 03/08/2025 9:00 AM EST Office Visit [facility] MED & PEDS [address] [place] [address] Bc Hunter MD [address] [place] [address] documented as of this encounter Visit Diagnoses Diagnosis History of Coumadin therapy- Primary S/P aortic valve replacement Heart valve replaced by other means documented in this encounter Additional Health Concerns Assessment Noted Time PHQ-9 Depression Total Score: 0 07/11/19 23 11:26 AM EDT documented as of this encounter Care Teams Lan Specialist Relationship Specialty Start Date End Date Bc Hunter MD [address] [place] [address] PCP - General Internal Medicine 01/03/19 documented as of this encounter
--- OUTSIDE RECORDS SUMMARY | 2025-01-25 14:52 | XMS_ITS | Encounter Summary ---
Author Organization [employer] Address [address] [facility] 7 [place] [address] Care Team Providers Care Vamp Wetter Name Role Phone Bc Hunter MD Primary Care Prov ider Reason for Visit * Reason Onset Date Comments Med Refill 05/12/2022 Encounter Details Date Type Department Care Team ([facility] st Contact Info) Description 05/12/2022 Telephone [facility] MEDICINE [address] [place] [address] Bc Hunter MD [address] [place] [address] Med Refill Social History Tobacco Use Types [...] Description 03/08/2025 9:00 AM EST Office Visit [facility] CHC MED & PEDS [address] [place] [address] Bc Hunter MD [address] [place] [address] documented as of this encounter Visit Diagnoses Not on filedocumented in this encounter Care Teams Vamp Wetter Relationship Specialty Start Date End Date Bc Hunter MD [address] [place] [address] PCP - General Internal Medicine 01/03/19 documented as of this encounter
--- OUTSIDE RECORDS SUMMARY | 2025-01-25 14:52 | XMS_ITS | Encounter Summary ---
Author Organization [employer] Address [address] [facility] 7 [place] [address] Care Team Providers Care Document Preparation Specialist Name Role Phone Bc Hunter MD Primary Care Prov ider Reason for Visit * Reason Onset Date Comments Nurse Triage 05/26/2023 Encounter Details Date Type Department Care Team ([facility] st Contact Info) Description 05/26/2023 Telephone [facility] MEDICINE [address] [place] [address] Bc Hunter MD [address] [place], [place] [phone] Nurse Triage Social History Tobacco Use Types [...] appetite is poor. Pt weight yesterday at bobbin cleaning machine operator apt is 173lbs. Pt was said to be around 202lbs regularly. Pt clothes are fitting very loosely now. Pt also wanted to stop coumadin but, bobbin cleaning machine operator instructed thatwouldn't be good to do so [...] acuity questions The caller accepted this outcome [phone] documented in this encounter Plan of Treatment Upcoming Encounters Date Type Department Care Team ([facility] st Contact Info) Description 03/08/2025 9:00 AM EST Office Visit [facility] MED & PEDS [address] [place] [address] Bc Hunter MD [address] [place] [address] documented as of this encounter Visit Diagnoses Not on filedocumented in this encounter Additional Health Concerns Assessment Noted Time PHQ-9 Depression Total Score: 0 07/11/19 23 11:26 AM EDT documented as of this encounter Care Teams Document Preparation Specialist Relationship Specialty Start Date End Date Bc Hunter MD [address] [place] [address] PCP - General Internal Medicine 01/03/19 documented as of this encounter
--- OUTSIDE RECORDS SUMMARY | 2025-01-25 14:52 | XMS_ITS | Encounter Summary ---
Author Organization [employer] Address [address] [facility] 7 [place] [address] Care Team Providers Care Key Account Representative Name Role Phone Bc Hunter MD Primary Care Prov ider Reason for Visit * Reason Onset Date Comments Med Refill 05/15/2022 Encounter Details Date Type Department Care Team ([facility] st Contact Info) Description 05/15/[address] [facility] CHC MED & PEDS [address] [place] [address] Bc Hunter MD [address] [place] [address] Med Refill Social History Tobacco Use Types [...] a max daily dose. Call placed to [facility] Coumadin clinic. Per Della, pt is currently [...] 11:54 AM EST Tc from Amy with [facility] Pharmacy requesting some kinds of specific directions for warfarin (Coumadin) 2 MG tablet If any question please contact amy at [phone] documented in this encounter Plan of Treatment Upcoming Encounters Date Type Department Care Team (Late st Contact Info) Description 03/08/2025 9:00 AM EST Office Visit [facility] MED & PEDS [address] [place] [address] Bc Hunter MD [address] [place] [address] documented as of this encounter Visit Diagnoses Not on filedocumented in this encounter Care Teams Key Account Representative Relationship Specialty Start Date End Date Bc Hunter MD [address] [place] [address] PCP - General Internal Medicine 01/03/19 documented as of this encounter
--- OUTSIDE RECORDS SUMMARY | 2025-01-25 14:52 | XMS_ITS | Encounter Summary ---
Author Organization [employer] Address [address] [facility] 7 [place] [address] Care Team Providers Care Chart Collector Name Role Phone Bc Hunter MD Primary Care Prov ider Reason for Visit * Reason Onset Date Comments Call Back Request 07/05/2024 Encounter Details Date Type Department Care Team ([facility] st Contact Info) Description 07/05/2024 Telephone [facility] MEDICINE [address] [place] [address] Bc Hunter MD [address] [place], [place] [phone] Call Back Request Social History Tobacco Use [...] 12:18 PM EDT Tc from Kimberly with [facility] requesting a call back regarding the pt Lovenox. Contact Kimberly at [phone] documented in this encounter Plan of Treatment Upcoming Encounters Date Type Department Care Team (Late st Contact Info) Description 03/08/2025 9:00 AM EST Office Visit [facility] MED & PEDS [address] [place] [address] Bc Hunter MD [address] [place] [address] documented as of this encounter Visit Diagnoses Not on filedocumented in this encounter Additional Health Concerns Assessment Noted Time PHQ-9 Depression Total Score: 0 09/30/19 24 11:02 AM EDT documented as of this encounter Care Teams Chart Collector Relationship Specialty Start Date End Date Bc Hunter MD [address] [place] [address] PCP - General Internal Medicine 01/03/19 documented as of this encounter
--- OUTSIDE RECORDS SUMMARY | 2025-01-25 14:52 | XMS_ITS | Encounter Summary ---
Author Organization [employer] Address [address] [facility] 7 [place] [address] Care Team Providers Care Still Operator Whiskey Name Role Phone Bc Hunter MD Primary Care Prov ider Reason for Visit * Reason Onset Date Comments Call Back Request 11/15/2024 Encounter Details Date Type Department Care Team ([facility] Contact Info) Description 11/15/2024 Telephone [facility] CHC MED & PEDS [address] [place] [address] Bc Hunter MD [address] [place] [address] Call Back Request Social History Tobacco Use [...] 12:04 PM EDT TC to Olga with [facility]. Stated needs clarification to have claritin scheduled, have atorvastatin scheduled for HS and have FeSulfate scheduled for PM. Advised will fax over telephone order form and have pcp update order to [facility]. Fax sent to [facility] with confirmation. * Telephone Encounter - Jenn Krishnamurthy - 11/15/2024 11:06 AM EDT Tc from Olga Cage at [facility] requesting a call back to discuss medication labels Contact Olga at [phone] documented in this encounter Plan of Treatment Upcoming Encounters Date Type Department Care Team (Late st Contact Info) Description 03/08/2025 9:00 AM EST Office Visit [facility] CHC MED & PEDS [address] [place] [address] Bc Hunter MD [address] [place] [address] documented as of this encounter Visit Diagnoses [...] documented as of this encounter Care Teams Still Operator Whiskey Relationship Specialty Start Date End Date Bc Hunter MD [address] [place] [address] PCP - General Internal Medicine 01/03/19 documented as of this encounter
--- OUTSIDE RECORDS SUMMARY | 2025-01-25 14:52 | XMS_ITS | Encounter Summary ---
Author Organization [employer] Address [address] [facility] 7 [place] [address] Care Team Providers Care Adapted Physical Education Aide Name Role Phone Bc Hunter MD Primary Care Prov ider Reason for Visit * Reason Onset Date Comments Medication Question 08/29/2024 Encounter Details Date Type Department Care Team ([facility] st Contact Info) Description 08/29/2024 Telephone [facility] MEDICINE [address] [place] [address] Bc Hunter MD [address] [place], [place] [phone] Medication Question Social History Tobacco Use Types [...] - 08/29/2024 1:29 PM EDT Tc from [place] staff with [facility] reports Doctors orders and script pharmacy has do not match .Please contact esmond for medication reconciliation. documented in this encounter Plan of Treatment Upcoming Encounters Date Type Department Care Team (Late st Contact Info) Description 03/08/2025 9:00 AM EST Office Visit [facility] CH[facility] MED & PEDS [address] [place] [address] Bc Hunter MD [address] [place] [address] documented as of this encounter Visit Diagnoses Not on filedocumented in this encounter Additional Health Concerns Assessment Noted Time PHQ-9 Depression Total Score: 0 09/30/19 24 11:02 AM EDT documented as of this encounter Care Teams Adapted Physical Education Aide Relationship Specialty Start Date End Date Bc Hunter MD [address] [place] [address] PCP - General Internal Medicine 01/03/19 documented as of this encounter
--- NOTE | 2025-01-25 15:30 | PC.NURSE ---
Addendum entered by Karina King RN 01/25/25 15:32: (@1300) grain and yeast plants supervisor contacted for transport for pt, staff states they are resistant to take him back due to not having a covid/flu swab. Pt denies chills/aches/fevers, neg WBC. MD made aware. No further orders for swab. Care ongoing, transport set for 1600. Original Note: [employer] supervisor contacted for transport for pt, staff states they are resistant to take him back due to not having a covid/flu swab. Pt denies chills/aches/fevers, neg WBC. MD made aware. No further orders for swab. Care ongoing, transport set for 1600. .
--- NOTE | 2025-01-25 15:34 | PC.NURSE ---
Upon senior care staff arrival for transport, staff is now refusing to take patient unless they are swabbed for covid/flu. MD aware, brought to bedside.
[2025-01-25 16:34] LABS: Resp Syncy Virus RNA Qual PCR NEGATIVE (Negative); SARS COV2 PCR INHOUSE NEGATIVE (Negative)
== END 2025-01-25 16:50 | disposition home or self-care (01) ==
PROVIDERS: Emergency Provider Student in an Organized Health Care Education/Training Program; PCP Internal Medicine
DX: K40.90 Unilateral inguinal hernia, without obstruction or gangrene, not specified as recurrent (principal); S09.90XA Unspecified injury of head, initial encounter; W19.XXXA Unspecified fall, initial encounter; Y93.9 Activity, unspecified; Y92.9 Unspecified place or not applicable; Y99.9 Unspecified external cause status; F20.9 Schizophrenia, unspecified; Z79.899 Other long term (current) drug therapy; Z79.01 Long term (current) use of anticoagulants
CPT/HCPCS: 36415; 70450; 80053; 85025; 85610; 87637; 93005; 99284; 99285

== ENCOUNTER → 2025-01-25 11:05 | Outpatient (BNV) | payer MEDICARE, MEDICAID, SELFPAY | PROVIDERS: Emergency Provider Student in an Organized Health Care Education/Training Program; PCP Internal Medicine; Visit Provider Internal Medicine Cardiovascular Disease | DX: I44.0 Atrioventricular block, first degree (principal) | CPT/HCPCS: 93010 ==

== ENCOUNTER → 2025-01-25 11:59 | Outpatient (BNV) | payer MEDICARE, MEDICAID, SELFPAY | PROVIDERS: Emergency Provider Student in an Organized Health Care Education/Training Program; PCP Internal Medicine; Visit Provider Radiology Diagnostic Ultrasound | DX: S09.90XA Unspecified injury of head, initial encounter (principal); J32.9 Chronic sinusitis, unspecified | CPT/HCPCS: 70450 ==

== ENCOUNTER 2025-02-05 09:57 | Outpatient (AMB) | payer MEDICARE, MEDICAID, SELFPAY ==
[2025-02-05 10:23] LABS: Prothrombin Time Whole Bld POC 22.1 sec (11.1-13.5); ~PT, ~INR - Anti Coag Clinic 1.8 (0.9-1.1)
--- NOTE | 2025-02-05 10:32 | MHC.OFFVISCO ---
Intake Intake Visit Reasons: Anticoagulation Allergies No Known Allergies Allergy (Mild, Verified 02/05/25 10:11) NOT APPLICABLE Medication List - Last Reconciled 02/05/25 by Raissa Hull RN albuterol sulfate 90 mcg/actuation (Ventolin HFA) 1 puff inhalation RQ4H PRN amantadine HCl 100 mg PO BID atorvastatin 40 mg PO BEDTIME carbamide peroxide (Debrox) 5 DROPS EACH EAR EVERY 2 WEEKS cholecalciferol (vitamin D3) (Vitamin D3) 25 mcg PO QAM dicyclomine 20 mg PO BID divalproex ER 1,000 mg PO BEDTIME ferrous sulfate 325 mg PO QAM [FLUCINOLONE TOPICAL DAILY ] ujiewpununx-kzcnpuxyf-tssqylka 200-62.5-25 mcg (Trelegy Ellipta) 1 inh inhalation DAILY guaifenesin ER (Mucus Relief ER) 1,200 mg PO BID levothyroxine 25 mcg PO DAILY@0600 loratadine 10 mg PO DAILY magnesium oxide 400 mg PO BIDPC multivitamin with folic acid 400 mcg (Daily-Stanley (with folic acid)) 1 tab PO DAILY pantoprazole 40 mg PO BID revefenacin (Yupelri) 175 mcg (3 mL) inhalation DAILY 30 days risperidone (Risperdal) 4 mg PO BID tamsulosin 0.4 mg PO BEDTIME valproic acid 1000mg orally daily; warfarin See Protocol 2 mg orally 4MG DAILY OR DIRECTED; 4MG DAILY OR DIRECTED Nursing Note Pt comes to appt with [facility] INR 1.8 took extra time to express blood from finger repeated INR 1.9 - out of therapeutic range Medications and supplements reviewed Patient status: no changes, very pleasant today, to have cardiac stress test 02/26/25 in 3 weeks and is nervous about it - discussed reason why for it emotional support given with some positive response * will arrange to have INR chk WEDNESDAY PRIOR STRESS TEST Medications or supplements: states no change Diet: no changes Denies any signs and symptoms of bleeding or clotting or unusual bruising Bleeding, bruising, clotting discussed Nutritional guidance given: avoid greens x 2 days Dose: 6mg today then resume usual dose 2mg x 3 days/ 4mg x 4 days F/U INR Date : 1 week ??- to makes sure INR in range for stress test Patient verbalizing understanding of instructions given. Anti-Coag Initial Assessment Social Hx Patient Tobacco Use Status: Refuse Tobacco use screen alcohol intake: never Coding Level of Care Code Est Patient Level 1 Diagnoses Current use of anticoagulant therapy Z79.01 Comment t/c to intermission coordinator Results AMB INR Fingerstick AMB INR Fingerstick 1.9 Last Edit by Raissa Hull RN on 02/05/25 10:23 manual entry Assessment & Plan Assessment & Plan (1) Current use of anticoagulant therapy: Code(s): Z79.01 - terminal operations supervisor (current) use of anticoagulants Category: Medical
== END 2025-02-05 11:33 | disposition home or self-care (01) ==
LOC: HO.ACS 09:57
PROVIDERS: PCP Internal Medicine; Visit Provider Internal Medicine Medical Oncology
DX: Z79.01 Long term (current) use of anticoagulants (principal)

== ENCOUNTER → 2025-02-05 09:57 | Outpatient (BNVA) | payer MEDICARE, MEDICAID, SELFPAY | PROVIDERS: PCP Internal Medicine; Visit Provider Internal Medicine Medical Oncology | DX: Z95.2 Presence of prosthetic heart valve (principal); Z51.81 Encounter for therapeutic drug level monitoring; Z79.01 Long term (current) use of anticoagulants | CPT/HCPCS: 85610; 99211 ==

== ENCOUNTER 2025-02-07 12:41 | Outpatient (AMB) | payer MEDICARE, MEDICAID, SELFPAY ==
--- NOTE | 2025-02-07 12:45 | A.OFFVIS_ITS ---
Vital Signs 02/07/25 13:18 Height 6 ft Weight 173 lb BMI 23.5 BP 112/72 Blood Pressure Location Lt brachial Position Sitting Intake Visit Reasons: inguinial hernia Intake Note: Patient is seen in office for ER follow up visit, following for right inguinal hernia. Pt c/o: admits to right groin hernia, increase in size since last visit, unable to walk for long periods due to discomfort, painful, would like to discuss surgical options Jayy:07/29/22 (observation) Imagin (FM) Rn Iv Therapy Required: No Accompanied by: Other Relationship Allergies No Known Allergies Allergy (Mild, Verified 02/07/25 13:02) NOT APPLICABLE HPI HPI inguinial hernia: Details: 74-year-old male with a history of COPD, right upper lobe pulmonary nodule, schizophrenia, prosthetic heart valve, on warfarin returning to the office for reevaluation of large incarcerated right inguinal hernia. Patient was last seen in [address] Hope who ultimately suggested no surgery due to the patient's significant comorbidities and perioperative risks. Patient states this has been getting bigger and causing him difficulty ambulating and more pain. He denies issues with urination, bowel movements. He denies nausea or vomiting. He does appear to be a poor historian and perseverates about issues at the [facility], this may be related to his underlying psychiatric disease. He denies any changes to his current medication list. Denies alcohol or drug use, although per notes from penitentiary patient does smoke marijuana. [facility] Medical History Incarcerated right inguinal hernia Normocytic anemia Metabolic encephalopathy MSSA bacteremia History of atrial fibrillation COPD (chronic obstructive pulmonary disease) Hypothyroid Bipolar 1 disorder Surgical History History of heart surgery Social History Household Members: Other Household Members Other:: penitentiary Housing: House Housing Other:: penitentiary Do you presently have visiting nurse or other home services: Yes (penitentiary) Alcohol intake: never Comment: Close observation Patient Tobacco Use Status: Refuse Tobacco use screen Substance Use Type: Marijuana Advance Directives Date on File: 06/04/23 service: No Sexual orientation: Straight/Heterosexual Physical Exam Vital Signs: Last Vital Signs BP 112/72 02/07/25 13:18 BMI result Body Mass Index 23.5 Const General: comfortable and no acute distress GI Other: Extremely Large incarcerated right inguinal hernia. Inspection: No distended Palpation (GI): Soft to palpation and Tenderness to palpation present (GI) Assessment & Plan Assessment & Plan (1) Incarcerated right inguinal hernia: Code(s): K40.30 - Unilateral inguinal hernia, with obstruction, without gangrene, not specified as recurrent Category: Medical Plan 74-year-old male with a history of COPD, right upper lobe pulmonary nodule, schizophrenia, prosthetic heart valve, on warfarin returning to the office for reevaluation of large incarcerated right inguinal hernia. He did see Dr. Hope in 2022 regarding this and ultimately chose to observe this due to his symptoms not being very bothersome and he has multiple comorbidities which pose significant perioperative risks. He is a poor historian likely due to his underlying psychiatric disease but states that this has been getting bigger and becoming more bothersome. He has pain from this most days in his notice it has become more difficult to walk because of how large it is. On exam there was a large incarcerated right inguinal hernia, mildly tender to palpation. Otherwise abdomen is soft and benign. At this point given his numerous comorbidities I was not comfortable making with the incision that he should have surgery, and recommended that he see Dr. Hope next week to make a final decision on whether or not this is something that we can perform or if he should be transferred to a tertiary hospital for management of this hernia. Coding Level of Care Code Est Pt Level 4 (68370) Diagnoses Incarcerated right inguinal hernia K40.30 Time Spent (min) 45
[2025-02-07 13:18] VITALS: BP 112/72; BMI 23.5
--- OUTSIDE RECORDS SUMMARY | 2025-02-08 00:01 | XMS_ITS | Encounter Summary ---
Author Organization [employer] Address [address] [facility] 7 [place] [address] Care Team Providers Care Furnace Worker Name Role Phone Bc Hunter MD Primary Care Prov ider Encounter Details Date Type Department Care Team (Late st Contact Info) Description 09/20/2023 Orders Only [facility] CHC MED & PEDS [address] [place], [place] [phone] Bc Hunter MD [address] [place] [address] Social History Tobacco Use Types Packs/Day Years [...] 9:00 AM EST Office Visit [facility] MED & PEDS [address] [place] [address] Bc Hunter MD [address] [place] [address] documented as of this encounter Visit Diagnoses Not on filedocumented in this encounter Additional Health Concerns Assessment Noted Time PHQ-9 Depression Total Score: 0 07/11/19 23 11:26 AM EDT documented as of this encounter Care Teams Furnace Worker Relationship Specialty Start Date End Date Bc Hunter MD [address] [place] [address] PCP - General Internal Medicine 01/03/19 documented as of this encounter
--- OUTSIDE RECORDS SUMMARY | 2025-02-08 00:01 | XMS_ITS | Clinical Summary ---
Author Organization [facility], Address [address] [place] [address] [place] [address] Phone Care Team Providers Care Long Chain Quiller Tender Name Role Phone YatesBc Primary Care Provider Allergies No known active allergies Medications D3-50 1.25 MG (56103 UT) capsule TAKE 1 CAPSULE BY MOUTH [...] Visit [facility] [address] [place] [address] Trever Lopez MD [address] [facility] [address] [place] [phone] Health Maintenance Due Date Last Done Comments [...] topic Insurance Medicare Medicaid [place] Care Teams Long Chain Quiller Tender Relationship Specialty Start Date End Date Bc Yates PCP - General Internal Medicine 10/05/22
--- OUTSIDE RECORDS SUMMARY | 2025-02-08 00:02 | XMS_ITS | Encounter Summary ---
Author Organization [employer] Address [address] [place] [address] [place] [address] Care Team Providers Care Building Components Designer Name Role Phone Bc Hunter MD Primary Care Prov ider Reason for Visit * Reason Onset Date Comments Med Refill 09/21/2022 Encounter Details Date Type Department Care Team ([facility] st Contact Info) Description 09/21/2022 Telephone [facility] CH[facility] MED & PEDS [address] [place] [address] Bc Hunter MD [address] [place] [address] Med Refill Social History Tobacco Use Types [...] managed by [facility] [place]. Last INR of 3.1 noted 09/17/22. Will forward request for Rx to covering provider to review. * Telephone Encounter - Ping Nettles - 09/21/2022 10:39 AM EDT Tc from pt requesting med refill on Warfarin 1 mg tablet [facility]/pharmacy #[id number] - [place], [place] - [address] [facility] Please sent to documented in this encounter Plan of Treatment Upcoming Encounters Date Type Department Care Team (Late st Contact Info) Description 03/08/2025 9:00 AM EST Office Visit [facility] MED & PEDS [address] [place] [address] Bc Hunter MD [address] [place] [address] documented as of this encounter Visit Diagnoses Diagnosis History of Coumadin therapy- Primary S/P aortic valve replacement Heart valve replaced by other means documented in this encounter Additional Health Concerns Assessment Noted Time PHQ-9 Depression Total Score: 0 07/11/19 23 11:26 AM EDT documented as of this encounter Care Teams Building Components Designer Relationship Specialty Start Date End Date Bc Hunter MD [address] [place] [address] PCP - General Internal Medicine 01/03/19 documented as of this encounter
--- OUTSIDE RECORDS SUMMARY | 2025-02-08 00:02 | XMS_ITS | Encounter Summary ---
Author Organization [employer] Address 75 [facility] 7 [place] [address] Care Team Providers Care Management Retail Intern Name Role Phone Bc Hunter MD Primary Care Prov ider Reason for Visit * Reason Onset Date Comments Nurse Triage 05/26/2023 Encounter Details Date Type Department Care Team ([facility] st Contact Info) Description 05/26/2023 Telephone [facility] MEDICINE [address] [place] [address] Bc Hunter MD [address] [place], [place] [phone] Nurse Triage Social History Tobacco Use Types [...] AM EST Triage call Pt is in prison, Krystin Sepulveda taking call and consent is signed by Pt for staff to speak . Pt has had some changes. Pt decided to stop all psyche medications and MD Ward Myers,discontinued them. (Stop date unknown) Pt has since that time decreased eating, appetite is poor. Pt weight yesterday at mortgage funder apt is 173lbs. Pt was said to be around 202lbs regularly. Pt clothes are fitting very loosely now. Pt also wanted to stop coumadin but, mortgage funder instructed that wouldn't be good to do [...] acuity questions The caller accepted this outcome [phone] documented in this encounter Plan of Treatment Upcoming Encounters Date Type Department Care Team ([facility] st Contact Info) Description 03/08/2025 9:00 AM EST Office Visit [facility] MED & PEDS [address] [place] [address] Bc Hunter MD 505 [place] [address] documented as of this encounter Visit Diagnoses Not on filedocumented in this encounter Additional Health Concerns Assessment Noted Time PHQ-9 Depression Total Score: 0 07/11/19 23 11:26 AM EDT documented as of this encounter Care Teams Management Retail Intern Relationship Specialty Start Date End Date Bc Hunter MD [address] [place] [address] PCP - General Internal Medicine 01/03/19 documented as of this encounter
--- OUTSIDE RECORDS SUMMARY | 2025-02-08 00:02 | XMS_ITS | Encounter Summary ---
Author Organization [employer] Address 75 [facility] 7 [place] [address] Care Team Providers Care Tea Bag Packer Name Role Phone Bc Hunter MD Primary Care Prov ider Reason for Visit * Reason Comments Med Refill Encounter Details Date Type Department Care Team ([facility] st Contact Info) Description 08/06/[address] [facility] MEDICINE [address] [place] [address] Bc Hunter MD [address] [place], [place] [phone] Social History Tobacco Use Types Packs/Day Years [...] Description 03/08/2025 9:00 AM EST Office Visit [facility] MED & PEDS 505 [place] [address] Bc Hunter MD [address] [place] [address] documented as of this encounter Visit Diagnoses Not on filedocumented in this encounter Additional Health Concerns Assessment Noted Time PHQ-9 Depression Total Score: 0 09/30/19 24 11:02 AM EDT documented as of this encounter Care Teams Tea Bag Packer Relationship Specialty Start Date End Date Bc Hunter MD [address] [place] [address] PCP - General Internal Medicine 01/03/19 documented as of this encounter
--- OUTSIDE RECORDS SUMMARY | 2025-02-08 00:02 | XMS_ITS | Encounter Summary ---
Author Organization [facility] Address [address] [place] [address] Phone Care Team Providers Care Engraver Block Name Role Phone Bc Yates Primary Care Provider [phone]- [phone] Reason for Visit * Reason Comments Med Refill Encounter Details Date Type Department Care Team (Late st Contact Info) Description 01/13/2022 Refill [facility] [address] [place] [address] Trever Lopez MD [address] [facility] [place] [address] Social History Tobacco Use Types [...] Visit [facility] [address] [place] [address] Trever Lopez MD [address] [facility] [place] [address] documented as of this encounter Visit Diagnoses Not on filedocumented in this encounter Care Teams Engraver Block Relationship Specialty Start Date End Date Bc Yates PCP - General Internal Medicine 10/05/22 documented as of this encounter
--- OUTSIDE RECORDS SUMMARY | 2025-02-08 00:02 | XMS_ITS | Clinical Summary ---
Author Organization [facility] Address [address] [place] [address] Phone Care Team Providers Care Operations Lead Name Role Phone cB Hunter Primary Care Provide r Medical History Medical History Date Comments Heart valve replaced by other means 06/29/2011 DX:Heart valve replaced by other means Asthma 06/29/2011 DX:Asthma Tobacco abuse 06/29/2011 DX:Tobacco abuse Schizophrenia ([facility] V24, CMS/HCC V28) [...] Insurance MEDICARE MEDICAID - [place] Care Teams Operations Lead Relationship Specialty Start Date End Date Bc Hunter [address] [place] [id number] PCP - General Internal Medicine 04/13/24
--- OUTSIDE RECORDS SUMMARY | 2025-02-08 00:02 | XMS_ITS | Encounter Summary ---
Author Organization [employer] Address 75 [facility] 7 [place] [address] Care Team Providers Care Multimedia Developer Name Role Phone Bc Hunter MD Primary Care Prov ider Reason for Visit * Reason Onset Date Comments Referral 12/06/2023 Encounter Details Date Type Department Care Team ([facility] st Contact Info) Description 12/06/2023 Telephone [facility] MEDICINE 230 [place] [address] Bc Hunter MD [address] [place], [place] [phone] Referral Social History Tobacco Use Types Packs/Day [...] [place] if[place] documented in this encounter Plan of Treatment Upcoming Encounters Date Type Department Care Team (Late st Contact Info) Description 03/08/2025 9:00 AM EST Office Visit [facility] MED & PEDS 505 [place] [address] Bc Hunter MD [address] [place] [address] documented as of this encounter Visit Diagnoses Not on filedocumented in this encounter Additional Health Concerns Assessment Noted Time PHQ-9 Depression Total Score: 0 09/30/19 24 11:02 AM EDT documented as of this encounter Care Teams Multimedia Developer Relationship Specialty Start Date End Date Bc Hunter MD [address] [place] [address] PCP - General Internal Medicine 01/03/19 documented as of this encounter
--- OUTSIDE RECORDS SUMMARY | 2025-02-08 00:02 | XMS_ITS | Encounter Summary ---
Author Organization [employer] Address 75 [facility] 7 [place] [address] Care Team Providers Care Mini Baccarat Dealer Name Role Phone Bc Hunter MD Primary Care Prov ider Reason for Visit * Reason Onset Date Comments Med Refill 05/12/2022 Encounter Details Date Type Department Care Team ([facility] st Contact Info) Description 05/12/2022 Telephone [facility] MEDICINE 230 [place] [address] Bc Hunter MD 505 [place] [address] Med Refill Social History Tobacco Use Types [...] Description 03/08/2025 9:00 AM EST Office Visit [facility] MED & PEDS [address] [place] [address] Bc Hunter MD 505 [place] [address] documented as of this encounter Visit Diagnoses Not on filedocumented in this encounter Care Teams Mini Baccarat Dealer Relationship Specialty Start Date End Date Bc Hunter MD [address] [place] [address] PCP - General Internal Medicine 01/03/19 documented as of this encounter
--- OUTSIDE RECORDS SUMMARY | 2025-02-08 00:02 | XMS_ITS | Encounter Summary ---
Author Organization [employer] Address 75 [facility] 7 [place] [address] Care Team Providers Care Prop Cutter Name Role Phone Bc Hunter MD Primary Care Prov ider Reason for Visit * Reason Comments Med Refill Encounter Details Date Type Department Care Team ([facility] st Contact Info) Description 05/18/2023 Refill [facility] MED & PEDS [address] [place] [address] Bc Hunter MD [address] [place] [address] Social History Tobacco Use Types Packs/Day Years [...] 03/08/2025 9:00 AM EST Office Visit [facility] MED & PEDS 505 [place] [address] Bc Hunter MD [address] [place] [address] documented as of this encounter Visit Diagnoses Not on filedocumented in this encounter Additional Health Concerns Assessment Noted Time PHQ-9 Depression Total Score: 0 07/11/19 23 11:26 AM EDT documented as of this encounter Care Teams Prop Cutter Relationship Specialty Start Date End Date Bc Hunter MD [address] [place] [address] PCP - General Internal Medicine 01/03/19 documented as of this encounter
--- OUTSIDE RECORDS SUMMARY | 2025-02-08 00:02 | XMS_ITS | Encounter Summary ---
Author Organization [employer] Address 75 [facility] 7t [place] [address] Care Team Providers Care De Icer Element Winder Name Role Phone Bc Hunter MD Primary Care Prov ider Reason for Visit * Reason Comments Med Change Request Encounter Details Date Type Department Care Team ([facility] Contact Info) Description 07/19/2023 Refill [facility] MED & PEDS 505 [place] [address] Oralia Mazariegos FNP 505 [place] [address] Social History Tobacco Use Types Packs/Day Years [...] 03/08/2025 9:00 AM EST Office Visit [facility] MED & PEDS 505 [place] [address] Bc Hunter MD [address] [place] [address] documented as of this encounter Visit Diagnoses Not on filedocumented in this encounter Additional Health Concerns Assessment Noted Time PHQ-9 Depression Total Score: 0 07/11/19 23 11:26 AM EDT documented as of this encounter Care Teams De Icer Element Winder Relationship Specialty Start Date End Date Bc Hunter MD [address] [place] [address] PCP - General Internal Medicine 01/03/19 documented as of this encounter
--- OUTSIDE RECORDS SUMMARY | 2025-02-08 00:02 | XMS_ITS | Encounter Summary ---
Author Organization [employer] Address 75 [facility] 7 [place] [address] Care Team Providers Care Corporate Auditor Name Role Phone Bc Hunter MD Primary Care Prov ider Reason for Visit * Reason Onset Date Comments Call Back Request 11/15/2024 Encounter Details Date Type Department Care Team ([facility] Contact Info) Description 11/15/2024 Telephone [facility] MED & PEDS [address] [place] [address] Bc Hunter MD [address] [place] [address] Call Back Request Social History Tobacco Use [...] PM EDT TC to Olga with [facility]. Stated needs clarification to have claritin scheduled, have atorvastatin scheduled for HS and have FeSulfate scheduled for PM. Advised will fax over telephone order form and have pcp update order to [facility]. Fax sent to [facility] with confirmation. * Telephone Encounter - Jenn Krishnamurthy - 11/15/2024 11:06 AM EDT Tc from Olga Cage at [facility] requesting a call back to discuss medication labels Contact Olga at [phone] documented in this encounter Plan of Treatment Upcoming Encounters Date Type Department Care Team (Late st Contact Info) Description 03/08/2025 9:00 AM EST Office Visit [facility] MED & PEDS 505 [place] [address] Bc Hunter MD [address] [place] [address] documented as of this encounter Visit Diagnoses [...] as of this encounter Care Teams Corporate Auditor Relationship Specialty Start Date End Date Bc Hunter MD [address] [place] [address] PCP - General Internal Medicine 01/03/19 documented as of this encounter
--- OUTSIDE RECORDS SUMMARY | 2025-02-08 00:02 | XMS_ITS | Encounter Summary ---
Author Organization [employer] Address 75 [facility] 7 [place] [address] Care Team Providers Care Extension Service Specialist In Charge Name Role Phone Bc Hunter MD Primary Care Prov ider Reason for Visit * Reason Onset Date Comments Nurse Triage 2024 Encounter Details Date Type Department Care Team ([facility] st Contact Info) Description 2024 Telephone [facility] MEDICINE 230 [place] [address] Bc Hunter MD [address] [place], [place] [phone] Nurse Triage Social History Tobacco Use Types [...] called pt to triage, spoke to group product manager, ANTONIO. pt was seen on 06/14 by [facility] pulmonology on 06/14 and due to some distress was sent to the ER for evaluation. pt diagnosed with Pneumonia and put onantibiotics x5 days. worker states pt eating and drinking, not having any fevers or severe/sustained sob, or other associated symptoms. given appt Wednesday with [facility] at 1:00 for exam and [...] 2024 3:49 PM EDT Tc from Patient [facility] to report ED visit on : Date: 06/14 Hospital: [facility] Seen for: pneumonia Symptomatic Yes *if yes message should go to Triage Patient advised will forward to team nurse for follow up [phone] pt documented in this encounter Plan of Treatment Upcoming Encounters Date Type Department Care Team (Late st Contact Info) Description 03/08/2025 9:00 AM EST Office Visit [facility] MED & PEDS 505 [place] [address] Bc Hunter MD [address] [place] [address] documented as of this encounter Visit Diagnoses Not on filedocumented in this encounter Additional Health Concerns Assessment Noted Time PHQ-9 Depression Total Score: 0 09/30/19 24 11:02 AM EDT documented as of this encounter Care Teams Extension Service Specialist In Charge Relationship Specialty Start Date End Date Bc Hunter MD [address] [place] [address] PCP - General Internal Medicine 01/03/19 documented as of this encounter
--- OUTSIDE RECORDS SUMMARY | 2025-02-08 00:02 | XMS_ITS | Encounter Summary ---
Author Organization [facility] Address [address] [place] [address] Phone Care Team Providers Care Natural History Collections Curator Name Role Phone Bc Yates Primary Care Provider +1- [phone] Encounter Details Date Type Department Care Team (Late st Contact Info) Description 05/26/2021 Documentation Only [facility] [address] [place] [address] Trever Lopez MD [address] [place] [address] [place] [address] Social History Tobacco Use Types [...] Visit [facility] [address] [place] [address] Treevr Lopez MD [address] [place] [address] [place] [address] documented as of this encounter Visit Diagnoses Not on filedocumented in this encounter Care Teams Natural History Collections Curator Relationship Specialty Start Date End Date Bc Yates PCP - General Internal Medicine 10/05/22 documented as of this encounter
--- OUTSIDE RECORDS SUMMARY | 2025-02-08 00:02 | XMS_ITS | Encounter Summary ---
Author Organization [employer] Address 75 [facility] 7 [place] [address] Care Team Providers Care Fisher Diving Name Role Phone Bc Hunter MD Primary Care Prov ider Reason for Visit * Reason Onset Date Comments Med Refill 05/15/2022 Encounter Details Date Type Department Care Team ([facility] st Contact Info) Description 05/15/2022 Telephone [facility] CH[facility] MED & PEDS [address] [place] [address] Bc Hunter MD [address] [place] [address] Med Refill Social History Tobacco Use Types [...] max daily dose. Call placed to [facility] Coumadin clinic. Per [...] 11:54 AM EST Tc from Amy with [facility] requesting some kinds of specific directions for warfarin (Coumadin) 2 MG tablet If any question please contact amy at [phone] documented in this encounter Plan of Treatment Upcoming Encounters Date Type Department Care Team (Late st Contact Info) Description 03/08/2025 9:00 AM EST Office Visit [facility] MED & PEDS [address] [place] [address] Bc Hnuter MD [address] [place] [address] documented as of this encounter Visit Diagnoses Not on filedocumented in this encounter Care Teams Fisher Diving Relationship Specialty Start Date End Date Bc Hunter MD [address] [place] [address] PCP - General Internal Medicine 01/03/19 documented as of this encounter
--- OUTSIDE RECORDS SUMMARY | 2025-02-08 00:02 | XMS_ITS | Encounter Summary ---
Author Organization [employer] Address [address] [place] [address] 7 [place] [address] Care Team Providers Care Transformation Specialist Name Role Phone Bc Hunter MD Primary Care Prov ider Encounter Details Date Type Department Care Team (Late Contact Info) Description 05/18/2022 Orders Only [facility] MED & PEDS [address] [place] [address] Bc Hunter MD 505 [place], [place] [phone] S/P aortic valve replacement Social History Tobacco [...] 9:00 AM EST Office Visit [facility] MED & PEDS [address] [place] [address] Bc Hunter MD 505 [place], [place] [phone] documented as of this encounter Visit Diagnoses Diagnosis S/P aortic valve replacement Heart valve replaced by other means documented in this encounter Care Teams Transformation Specialist Relationship Specialty Start Date End Date Bc Hunter MD [address] [place] [address] PCP - General Internal Medicine 01/03/19 documented as of this encounter
--- OUTSIDE RECORDS SUMMARY | 2025-02-08 00:02 | XMS_ITS | Encounter Summary ---
Author Organization [employer] Address 75 [facility] 7 [place] [address] Care Team Providers Care Aboriginal Liaison Officer Name Role Phone Bc Hunter MD Primary Care Prov ider Reason for Visit * Reason Onset Date Comments Nurse Triage 11/22/2024 Encounter Details Date Type Department Care Team ([facility] st Contact Info) Description 11/22/2024 Telephone [facility] MEDICINE [address] [place] [address] Bc Hunter MD [address] [place], [place] [phone] Nurse Triage Social History Tobacco Use Types [...] EDT Triage call to Krystin, staff at [facility] where Pt resides. Pt is in [...] is offered to come to [facility] in [facility] but, declined today, Krystin will considerthis [...] caller accepted this outcome. Contact Krystin at [phone] documented in this encounter Plan of Treatment Upcoming Encounters Date Type Department Care Team ([facility] st Contact Info) Description 03/08/2025 9:00 AM EST Office Visit [facility] MED & PEDS [address] [place] [address] Bc Hunter MD [address] [place] [address] documented as of this encounter Visit Diagnoses Not on filedocumented in this encounter Additional Health Concerns Assessment Noted Time PHQ-9 Depression Total Score: 0 09/30/19 24 11:02 AM EDT documented as of this encounter Care Teams Aboriginal Liaison Officer Relationship Specialty Start Date End Date Bc Hunter MD [address] [place] [address] PCP - General Internal Medicine 01/03/19 documented as of this encounter
--- OUTSIDE RECORDS SUMMARY | 2025-02-08 00:02 | XMS_ITS | Clinical Summary ---
Author Organization [employer] Address [address] [place] [address] 7t [place] [address] Care Team Providers Care Director Of Outside Sales Name Role Phone Bc Hunter MD [...] HOURS NEEDED 18 g 3 025 Active guaiFENesin (Mucinex) 600 MG 12 hr tabletIndications :COPD exacerbation (CMS/HCC) (HCC) Take 2 tablets (1,200 mg) by mouth [...] 3 TIMES WEEKLY DIRECTED 120 mL 2 Active atorvastatin (Lipitor) 40 MG tabletIndications [...] THE MORNING 60 each 3 025 Active albuterol 108 (90 Base) MCG/ACT inhalerIndication s:COPD exacerbation (CMS/HCC) (HCC) Inhale 2 puffs every 6 (six) hours if needed for wheezing. 8.5 g 025 Active Trelegy Ellipta 100-62.5-25 MCG/ACT aerosol powder Inhale 1 puff in the morning. 60 each 3 025 2024 Discontinued albuterol 108 (90 Base) MCG/ACT inhalerIndication s:COPD exacerbation (CMS/HCC) (HCC) Inhale 2 puffs every 6 (six) hours if needed for wheezing. 2 puffs every 6 hours for the next 2 days ( 11/24/2024 and 11/25/2024) 18 g 1 025 2024 Discontinued(R eorder (will not trigger notification to Pharmacy)) Active Problems Problem Noted Date Diagnosed Date Psychoactive substance abuse 10/02/2024 Cigarette nicotine dependence without complicati on 06/19/2024 Nodule of left lung 04/26/2024 Assessment & Plan (01/08/2025 12:41 PM EDT): Told to follow up with buncher machine, previously refused undergoing biopsy Assessment & Plan (10/02/2024 1:15 PM EDT): Patient does not want to undergo biopsy, will follow up pneumology reccomendations Assessment & Plan (04/26/2024 11:54 AM EST): Will order a follow up LDCT scan, 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 Plan to bridge pt from Eliquis to Coumadin. May DC Eliquis once Coumadin therapeutic Coumadin dosinmg on Wednesday and Wednesday 4mg all other days of the week Plan: [facility] Coagulation clinic to reach out to senior [...] nodules palpated Mild chronic obstructive pulmonary disease ([facility]) 09/22/2011 Assessment & Plan (01/08/2025 12:41 PM EDT): Symptoms resolved, smoking cessation discussed, follow up with buncher machine Other schizophrenia 09/22/2011 Overview (07/20/2023): Living in Detention Assessment & Plan (10/02/2024 1:14 PM EDT): [...] Encounters Date Type Department Care Team Description 02/05/2025 Orders Only GENERIC EXTERNAL DATA DEPARTMENT Provider, Generic External Data 02/01/2025 Refill [facility] [address] [place] [address] Bc Hunter MD COPD exacerbation ([facility]) ([facility]) 01/25/2025 Orders Only GENERIC EXTERNAL DATA DEPARTMENT Provider, Generic External Data 01/25/2025 Travel 01/25/2025 Telephone [facility] [address] [place] [address] Bc Hunter MD Nurse Triage 01/16/2025 Orders Only GENERIC EXTERNAL DATA DEPARTMENT Provider, Generic External Data 01/15/2025 Refill [facility] PEDS [address] [place] [address] Bc Hunter MD 01/08/2025 11:15 AM EDT Office Visit [facility] [address] [place] [address] Bc Hunter MD Hyperlipemia, mixed (Primary Dx); Other iron deficiency anemia; Acquired hypothyroidism; Mild chronic obstructive pulmonary disease (CMS/HCC) (HCC); Nodule of left lung 01/08/2025 Travel 01/04/2025 Telephone [facility] [address] [place] [address] Bc Hunter MD chart prep 01/02/2025 Orders Only GENERIC EXTERNAL DATA DEPARTMENT Provider, Generic External Data 12/29/2024 Telephone [facility] PEDIATRICS [address] [place] [address] Bc Hunter MD INR LEVEL 12/29/2024 Orders Only GENERIC EXTERNAL DATA DEPARTMENT Provider, Generic External Data 12/05/2024 Orders Only GENERIC EXTERNAL DATA DEPARTMENT Provider, Generic External Data 11/29/2024 Refill [facility] [address] [place] [address] Bc Hunter MD Seborrheic dermatitis of scalp; Mixed hyperlipidemia; Gastroesophageal reflux disease without esophagitis 11/29/2024 Refill [facility]ED[facility] [address] [place] [address] Zafar Richard MD Gastroesophageal reflux disease without esophagitis 11/29/2024 Refill [facility] [address] [place] [address] Bc Hunter MD Mixed hyperlipidemia 11/28/2024 Orders Only GENERIC EXTERNAL DATA DEPARTMENT Provider, Generic External Data 11/24/2024 2:30 PM EDT Office Visit [facility] [address] [place] [address] Zafar Richard MD COPD exacerbation ([facility]) (Primary Dx); Cigarette nicotine dependence without complication; Mixed hyperlipidemia; Congestion of nasal sinus; Acquired hypothyroidism; Irritable bowel syndrome with diarrhea; Iron deficiency anemia due to chronic blood loss 11/24/2024 Telephone [facility] [address] [place] [phone] Bc Hunter MD Medication Question 11/24/2024 Refill [facility] [address] [place] [address] Bc Hunter MD Cigarette nicotine dependence without complication 11/24/2024 Travel 11/24/2024 Orders Only GENERIC EXTERNAL DATA DEPARTMENT Provider, Generic External Data 11/23/2024 Telephone [facility] [address] [place] [phone] Bc Hunter MD CRITICAL LAB 11/23/2024 Orders Only GENERIC EXTERNAL DATA DEPARTMENT Provider, Generic External Data 11/23/2024 Telephone [facility] [address] [place] [address] Bc Hunter MD chart prep 11/22/2024 Telephone [facility] [address] [place] [address] Bc Hunter MD Nurse Triage 11/18/2024 Refill [facility] [address] [place] [address] Bc Hunter MD Mixed hyperlipidemia 11/15/2024 Telephone [facility] [address] [place] [address] Bc Hunter MD Call Back Request from Last 3 Months Social History Tobacco [...] 9:00 AM EST Office Visit [facility] [address] [place], [place] [phone] Bc Hunter MD [address] [facility] [place] [address] Health Maintenance Due Date Last Done Comments CT Colonography 1950 Colonoscopy 1950 Colorectal Cancer Screening 1950 FIT DNA/Cologuard 1950 FIT 1950 FOBT 1950 Sigmoidoscopy 1950 RSV Patients and Patients Aged 60 years or older (1 - Risk 50-74 years 1-dose series) 2002 Zoster Vaccines (2 of 2) 06/27/2021 05/02/2021 Pneumococcal Vaccine: 50+ Years (3 of 3 - PCV20 or PCV21) 03/17/2024 03/17/2019, 11/22/2014, 06/17/2000 COVID-19 Vaccine ( season) 2024 01/14/2024, 01/09/2021, [...] Comments PROTHROMBIN TIME WHOLE BLD POC Routine 02/05/2025 10:17 AM EST ~PT, ~INR - ANTI COAG CLINIC Routine 02/05/2025 10:17 AM EST SARS COV2/INFLUENZA A/B AND RSV RNA QL NAAT Routine 01/25/2025 3:[address] HEAD WO CONTRAST Routine 01/25/2025 1 [...] COAG CLINIC Routine 11/23/2024 10:47 AM EDT LIPID PANEL, STANDARD Routine 05/06/2023 11:48 AM EST Hyperlipemia, mixed HEPATITIS C AB W/REFL TO HCV RNA, QN, PCR Routine 07/10/2022 11:31 AM EDT S/P aortic valve replacement Pre-op evaluation from Last 3 Months or Most Recently Relevant to Health Maintenance Results * (ABNORMAL) PROTHROMBIN TIME WHOLE BLD POC (02/05/2025 10:17 AM EST) Only the most recent of8 resultswithin the time period is included. Protime 22.1(H) 11.1 - 13.5 sec [facility] 02/05/2025 10:1 7 AM EST 02/05/2025 10:22 AM EST Generic External Data Provider LAB BLOOD ORDERAB LES Final Result Performing Organization Address [facility] Co de Phone Number [facility] [address] [place] [phone] * (ABNORMAL) ~PT, ~INR - ANTI COAG CLINIC (02/05/2025 10:17 AM EST) Only the most recent of8 resultswithin the time period is included. Prothrombin Time INR 1.8(H) 0.9 - 1.1 [facility] Comment:METER #: [id number] TERNATIONAL NORMALIZED RATIO (INR) REFERENCE RANGES Reference RangeFor patients not on anticoagulant therapy: 0.9 - 1.1INR ranges for oral anticoagulanttherapy:For prevention and treatment of venous thrombosis and pulmonary embolism: 2.0 - 3.0For acute myocardial infarction with aspirin therapy: 2.0 - 3.0For acute myocardial infarction without aspirin therapy: 3.0 - 4.0For patients with mechanical prosthetic heart valves: 2.5 - 3.5 02/05/2025 10:1 7 AM EST 02/05/2025 10:22 AM EST Generic External Data Provider LAB BLOOD ORDERAB LES Final Result Performing Organization Address [facility] Co de Phone Number [facility] [address] [place] [phone] * SARS-CoV-2 RNA, Influenza A/B, and RSV RNA, Ql NAAT (01/25/2025 3:42 PM EST) Influenza A PCR NEGATIVE Negative [facility] Influenza B PCR NEGATIVE Negative [facility] Resp Syncy Virus RNA Qual PCR NEGATIVE Negative [facility] SARS COV2 PCR NEGATIVE Negative [facility] Comment:All test results mus t be correlated with clinical findings.Negative results do not preclude SARS-CoV2, influenza Avirus, influenza B virus and/or RSV infectionand should not be used as the sole basis for treatment orother patient management decisions. Negative results must becombined with clinical observations, patient history, andepidemiological information.This test has not been evaluated for monitoring treatment ofinfection.This test has been authorized by the FDA under an EmergencyUse Authorization (EUA) for use by authorized laboratories.Testing performed on the [employer] GeneXpert utilizingreal-time RT-PCR.All SARS CoV2 and positive influenza A/B results arereported to [facility]. 01/25/2025 3:42 PM EST 01/25/2025 3:52 PM EST us Generic External Data Provider LAB MICROBIOLOGY - GENERAL ORDERABLES Final Result Performing Organization Address City/State/[facility] Co de Phone Number [facility] [address] [place] [phone] * CT Head w/o Contrast (01/25/2025 1:21 PM EST) Anatomical Region Laterality Modality Head, Neck Computed Tomogra phy 01/25/2025 1:21 PM EST Narrative 01/25/2025 1:54 PM EST [address] [address] [address] Scan Report Signed Patient: Chris Zaragoza MR#: [id number] : 1950 Acct:[id number] Age/Sex: 74 / M ADM Date: 01/25/25 Loc: .ED Attending Dr: Ordering Physician: Henrietta Ricks DO Date of Service: 01/25/25 Procedure(s): CT head/brain wo IV con Accession Number(s): [id number] cc: Bc Hunter MD; Henrietta Ricks DO Report Number: [id number]: Total DLP = 731.00 mGy-cm Reason for [...] by: Deon Stewart MD 01/25/2025 01:[address] [facility] Dictated By: Deon Stewart MD Signed By: <Electronically signed by Deon Stewart MD in OV> 01/25/25 1351 DD/ 1321 TD/TT: 01/25/25 1337 Automotive Shop Foreman: KIN Procedure Note Donotuseinterpreter, Image - 01/25/[address] [place] [address] [address] Scan Report Signed Patient: Amos Zaragoza#: [id number] : 3Acct:[id number] Age/Sex: 74 / MADM Date: 01/25/25 Loc: HO.ED Attending Dr: Ordering Physician: Henrietta Ricks DO Date of Service: 01/25/25 Procedure(s): CT head/brain wo IV con Accession Number(s): [id number] cc: Bc Hunter MD; Henrietta Ricks DO Report Number: [id number]: Total DLP = 731.00 mGy-cm Reason for [...] by: Deon Stewart MD 01/25/2025 01:51 PM EST Dictated By: Deon Stewart MD Signed By: <Electronically signed by Deon Stewart MD in OV> 01/25/25 1351 DD/ 1321 TD/TT: 01/25/25 1337 Automotive Shop Foreman: KIN [facility] External Provider IMG CT PROCEDURES Final Result * (ABNORMAL) Prothrombin Time-INR (01/25/2025 12:13 PM EST) Only the most recent of2 resultswithin the time period is included. Prothrombin Time 21.6(H) 11.2 - 13.5 SEC [facility] INTERNATIONAL NORM RATIO 1.8(H) 0.9 - 1.1 [facility] Comment:INTERNATIONAL NORMAL IZED RATIO (INR) REFERENCE [...] 3 PM EST 01/25/2025 12:48 PM EST us Generic External Data Provider LAB BLOOD ORDERAB LES Final Result Performing Organization Address City/State/[facility] Co de Phone Number [facility] [address] [place] [phone] * (ABNORMAL) CBC auto differential (01/25/2025 11:24 AM EST) White Blood Count 6.2 4.8 - 10.8 X10*3/uL [facility] Red Blood Count 3.85(L) 4.60 - 5.80 X10*6/uL [facility] Hemoglobin 11.5(L) 14.0 - 18.0 g/dl [facility] Hematocrit 35.2(L) 42.0 - 52.0 % [facility] Mean Corpuscular Volume 91.4 80.0 - 98.0 fL [facility] Mean Corpuscular Hemoglobin 29.9 27.0 - 33.0 pg [facility] Mean Corpuscular HGB Conc 32.7 31.0 - 36.0 g/dl [facility] Red Cell Distribution Width 15.6 11.0 - 16.0 % [facility] Platelet Count 282 160 - 400 X10*3/uL [facility] Mean Platelet Volume 10.0 9.4 - 12.4 fL [facility] Neutrophils Percent Auto 79.8(H) 45 - 73 % [facility] Imm Gran Pct Auto 0.3 0.0 - 0.4 % [facility] Lymphocytes Percent Auto 10.2(L) 20 - 40 % [facility] Monocytes Percent Auto 8.1 2 - 11 % [facility] Eosinophils Percent Auto 1.1 0 - 4 % [facility] Basophils Percent Auto 0.5 0 - 2 % [facility] NRBC Pct Auto 0.0 0.0 - 0.2 /100WBC [facility] Neutrophils Absolute Auto 4.9 2.0 - 8.3 x10*3/uL [facility] Imm Gran Abs Auto 0.02 0.00 - 0.03 X10*3/uL [facility] Lymphocytes Absolute Auto 0.6(L) 1.2 - 4.9 X10*3/uL [facility] Monocytes Absolute Auto 0.5 0.1 - 1.2 X10*3/uL [facility] Eosinophils Absolute Auto 0.1 0.0 - 0.4 X10*3/uL [facility] Basophils Absolute Auto 0.0 0.0 - 0.2 X10*3/uL [facility] NRBC Abs Auto 0.000 0.0 - 0.012 X10*3/uL [facility] 01/25/2025 11:2 4 AM EST 01/25/2025 11:27 AM EST us Generic External Data Provider LAB BLOOD ORDERAB LES Final Result [facility] [address] [place] [phone] * (ABNORMAL) Comprehensive Metabolic Panel (01/25/2025 11:24 AM EST) Sodium 135 135 - 145 mmol/L [facility] Potassium 4.6 3.3 - 5.1 mmol/L [facility] Comment:Slight Hemolysis.Int erpret result with caution. Chloride 100 96 - 108 mmol/L [facility] Carbon Dioxide 27 22 - 29 mmol/L [facility] Anion Gap 13 12 - 20 [facility] Urea Nitrogen (BUN) 27(H) 9 - 16 mg/dL [facility] Creatinine, Serum 1.50(H) 0.5 - 1.4 mg/dL [facility] Creatinine Clr Calc Pharmacy 48.8 [facility] Comment:eGFR (calculated fro m the MDRD study equation) and eCrCl(calculated from the Cockcroft-Gault equation) are based ondifferent parameters and may not yield comparable results.If eCrCl result is absurd, please check patient'sheight/weight. Estimated Glomerular Filt Rate 46 [facility] Comment:Chronic Kidney Disea se: Estimated GFR < 60 mL/min/1.76t6Mhwsow Kidney Disease: Estimated GFR < 15 mL/min/1.73m2 Glucose 121(H) 60 - 115 mg/dL [facility] Calcium 8.9 8.4 - 10.2 mg/dL [facility] Bilirubin, Total 0.5 0.0 - 1.0 mg/dL [facility] Aspartate Amino Transferase 32 5 - 37 U/L [facility] Comment:Slight Hemolysis.Int erpret result with caution. Alanine Aminotransferase 14 0 - 40 U/L [facility] Total Protein 6.8 6.5 - 8.0 g/dL [facility] Albumin Level 3.6 3.5 - 5.0 g/dL [facility] Alkaline Phosphatase 142(H) 39 - 117 U/L [facility] 01/25/2025 11:2 4 AM EST 01/25/2025 11:27 AM EST us Generic External Data Provider LAB BLOOD ORDERAB LES Final Result [facility] [address] [place] [phone] * Lipid Panel, Standard (05/06/2023 11:48 AM EST) Triglycerides 61 <150 mg/dL [facility] Comment:Desirable Triglyceri de: less than 150 mg/dLBorderline High Triglyceride 150-199 mg/dLHigh Triglyceride: 200-499 mg/dLVery High Triglyceride: greater than or equal to 5OO mg/dL Cholesterol 166 <200 mg/dL [facility] Comment:Desirable Cholestero l: less than 200 mg/dLBorderline High Cholesterol: 200-239 mg/dLHigh Cholesterol: greater than 239 mg/dL LDL Cholesterol Calculated 94 <100 mg/dL [facility] Comment:Desirable LDL: less than 100 mg/dLNear Optimal/Above Optimal LDL: 110- 129 mg/dLBorderline High LDL: 130-159 mg/dLHigh LDL: 160-189 mg/dLVery High LDL: greater than or equal to 190 mg/dL HDL Cholesterol 60 >40 mg/dL [facility] Comment:Desirable HDL: great er than 40 mg/dL Note: This HDL assay may give artificially low results in patients with liver disease. Blood Venous blood specimen / Unknown 05/06/2023 11:48 AM EST 05/06/2023 2:09 PM EST Bc Rascon MD LAB BLOOD ORDERABL ES Final Result [facility] [address] [place] [phone] * Hepatitis C Antibody with Reflex to HCV, RNA, Quantitative, Real-Time PCR (07/10/2022 11:31 AM EDT) Hepatitis C Antibody NON-REACT DEZ NON-REACT DEZ [employer] [place] [employer] Index 0.09 <1.00 [employer] [place] [employer] Comment: HCV antibody was non-reactive. There is no laboratory evidence of HCV infection. In most cases, no further action is required. However, if recent HCV exposure is suspected, a test for HCV RNA (test code 48373) is suggested. For additional information please refer to http://education.[employer]/faq/LBM08x8 (This link is being provided for informational/ educational purposes only.) Blood Venous blood specimen / Unknown 07/10/2022 11:31 AM EDT 07/10/2022 11:32 AM EDT Narrative [facility] - 07/11/2022 5:06 AM EDT FASTING:NO FASTING: NO Bc Rascon MD LAB BLOOD ORDERABL ES Final Result [facility] [address], [place] [phone] [employer] [facility] [address] [place] [phone] from Last 3 Months or Most Recently Relevant to Health Maintenance Insurance MEDICARE [facility] Care Teams Director Of Outside Sales Relationship Specialty Start Date End Date Bc Hunter MD [address] [place] [phone] PCP - General Internal Medicine 01/03/19
--- OUTSIDE RECORDS SUMMARY | 2025-02-08 00:03 | XMS_ITS | Encounter Summary ---
Author Organization [employer] Address [address] [place] [address] Care Team Providers Care Yard Truck Driver Name Role Phone Bc Hunter MD Primary Care Prov ider Reason for Visit * Reason Comments Med Refill Encounter Details Date Type Department Care Team (Late Contact Info) Description 10/25/2022 Refill [facility] MED & PEDS [address] [place] [address] Bc Hunter MD [address] [place] [address] Social History Tobacco Use Types Packs/Day Years [...] 9:00 AM EST Office Visit [facility] MED & PEDS [address] [place] [address] Bc Hunter MD [address] [place] [address] documented as of this encounter Visit Diagnoses Not on filedocumented in this encounter Additional Health Concerns Assessment Noted Time PHQ-9 Depression Total Score: 0 07/11/19 23 11:26 AM EDT documented as of this encounter Care Teams Yard Truck Driver Relationship Specialty Start Date End Date Bc Hunter MD [address] [place] [phone] PCP - General Internal Medicine 01/03/19 documented as of this encounter
--- OUTSIDE RECORDS SUMMARY | 2025-02-08 00:03 | XMS_ITS | Encounter Summary ---
Author Organization [employer] Address [address] [facility] 7 [place] [address] Care Team Providers Care Aircraft Life Support Fitter Name Role Phone Bc Hunter MD Primary Care Prov ider Reason for Visit * Reason Onset Date Comments Medication Question 08/29/2024 Encounter Details Date Type Department Care Team ([facility] Contact Info) Description 08/29/2024 Telephone [facility] [address] [place] [address] Bc Hunter MD [address] [place], [place] [phone] Medication Question Social History Tobacco Use Types [...] - 08/29/2024 1:29 PM EDT Tc from [place] staff with [facility] reports Doctors orders and script pharmacy has do not match .Please contact rosine for medication reconciliation. documented in this encounter Plan of Treatment Upcoming Encounters Date Type Department Care Team (Late st Contact Info) Description 03/08/2025 9:00 AM EST Office Visit [facility] PED[facility] [address] [place] [address] Bc Hunter MD [address] [place] [address] documented as of this encounter Visit Diagnoses Not on filedocumented in this encounter Additional Health Concerns Assessment Noted Time PHQ-9 Depression Total Score: 0 09/30/19 24 11:02 AM EDT documented as of this encounter Care Teams Aircraft Life Support Fitter Relationship Specialty Start Date End Date Bc Hunter MD [address] [place] [address] PCP - General Internal Medicine 01/03/19 documented as of this encounter
--- OUTSIDE RECORDS SUMMARY | 2025-02-08 00:03 | XMS_ITS | Encounter Summary ---
Author Organization [employer] Address [address] [facility] [address]t [place] [address] Care Team Providers Care Refrigeration System Installer Name Role Phone Bc Hunter MD Primary Care Prov ider Encounter Details Date Type Department Care Team ([facility] st Contact Info) Description 02/05/2025 Orders Only GENERIC EXTERNAL DATA [...] Description 03/08/2025 9:00 AM EST Office Visit [facility] [address] [place] [address] Bc Hunter MD [address] [place], [place] [phone] documented as of this encounter Procedures Procedure Name Priority Date/Time Associated Diagnosis Comments PROTHROMBIN TIME WHOLE BLD POC Routine 02/05/2025 10:17 AM EST ~PT, ~INR - ANTI COAG CLINIC Routine 02/05/2025 10:17 AM EST documented in this encounter Results * (ABNORMAL) PROTHROMBIN TIME WHOLE BLD POC (02/05/2025 10:17 AM EST) Pathologist [facility] Protime 22.1(H) 11.1 - 13.5 sec [facility] 02/05/2025 10:1 7 AM EST 02/05/2025 10:22 AM EST us Generic External Data Provider LAB BLOOD ORDERAB LES Final Result [facility] [address] [place] [phone] * (ABNORMAL) ~PT, ~INR - ANTI COAG CLINIC (02/05/2025 10:17 AM EST) Prothrombin Time INR 1.8(H) 0.9 - 1.1 [facility] Comment:METER #: [id number] TERNATIONAL NORMALIZED RATIO (INR) REFERENCE RANGES Reference [...] 7 AM EST 02/05/2025 10:22 AM EST us Generic External Data Provider LAB BLOOD ORDERAB LES Final Result [facility] [address] [place] [phone] documented in this encounter Visit Diagnoses Not on filedocumented in this encounter Additional Health Concerns Assessment Noted Time PHQ-9 Depression Total Score: 0 01/09/20 25 11:39 AM EDT documented as of this encounter Care Teams Refrigeration System Installer Relationship Specialty Start Date End Date Bc Hunter MD [address] [place] [phone] PCP - General Internal Medicine 01/03/19 documented as of this encounter
--- OUTSIDE RECORDS SUMMARY | 2025-02-08 00:03 | XMS_ITS | Encounter Summary ---
Author Organization [employer] Address [address] [place] [address] Care Team Providers Care Brass Sorter Name Role Phone Bc Hunter MD Primary Care Prov ider Encounter Details Date Type Department Care Team (Late Contact Info) Description 02/24/2022 Telephone [facility] MEDICINE [address] [place], [place] [phone] Bc Hunter MD 505 [place], [place] [phone] Social History Tobacco Use Types Packs/Day Years [...] 9:00 AM EST Office Visit [facility] CHC MED & PEDS 505 [place], [place] [phone] Bc Hunter MD [address] [place], [place] [phone] documented as of this encounter Visit Diagnoses Not on filedocumented in this encounter Care Teams Brass Sorter Relationship Specialty Start Date End Date Bc Hunter MD [address] [place], [place] [phone] PCP - General Internal Medicine 01/03/19 documented as of this encounter
--- OUTSIDE RECORDS SUMMARY | 2025-02-08 00:03 | XMS_ITS | Encounter Summary ---
Author Organization [employer] Address 75 [facility] 7 [place] [address] Care Team Providers Care Padded Box Sewer Name Role Phone Bc Hunter MD Primary Care Prov ider Reason for Visit * Reason Onset Date Comments Call Back Request 07/05/2024 Encounter Details Date Type Department Care Team ([facility] st Contact Info) Description 07/05/2024 Telephone [facility] MEDICINE 230 [place] [address] Bc Hunter MD 505 [place], [place] [phone] Call Back Request Social History Tobacco Use [...] EDT Tc from Kimberly with [facility] requesting a call back regarding the pt Lovenox. Contact Kimberly at [phone] documented in this encounter Plan of Treatment Upcoming Encounters Date Type Department Care Team (Late st Contact Info) Description 03/08/2025 9:00 AM EST Office Visit [facility] MED & PEDS 505 [place] [address] Bc Hunter MD 505 [place] [address] documented as of this encounter Visit Diagnoses Not on filedocumented in this encounter Additional Health Concerns Assessment Noted Time PHQ-9 Depression Total Score: 0 09/30/19 24 11:02 AM EDT documented as of this encounter Care Teams Padded Box Sewer Relationship Specialty Start Date End Date Bc Hunter MD 505 [place] [address] PCP - General Internal Medicine 01/03/19 documented as of this encounter
== END 2025-02-07 13:32 | disposition home or self-care (01) ==
PROVIDERS: PCP Internal Medicine
DX: K40.30 Unilateral inguinal hernia, with obstruction, without gangrene, not specified as recurrent (principal)
CPT/HCPCS: 99214

== ENCOUNTER → 2025-02-07 12:41 | Outpatient (BNVA) | payer MEDICARE, MEDICAID, SELFPAY | PROVIDERS: PCP Internal Medicine | DX: K40.30 Unilateral inguinal hernia, with obstruction, without gangrene, not specified as recurrent (principal); Z09 Encounter for follow-up examination after completed treatment for conditions other than malignant neoplasm; Z95.2 Presence of prosthetic heart valve; Z79.01 Long term (current) use of anticoagulants | CPT/HCPCS: 99212 ==

== ENCOUNTER 2025-02-13 13:23 | Outpatient (AMB) | payer MEDICARE, MEDICAID, SELFPAY ==
[2025-02-13 13:36] LABS: Prothrombin Time Whole Bld POC 33.5 sec (11.1-13.5); ~PT, ~INR - Anti Coag Clinic 2.8 (0.9-1.1)
--- NOTE | 2025-02-13 13:39 | MHC.OFFVISCO ---
Intake Intake Visit Reasons: Anticoagulation Allergies No Known Allergies Allergy (Mild, Verified 02/13/25 13:29) NOT APPLICABLE Medication List - Last Reconciled 02/13/25 by Nivia Beaver RN albuterol sulfate 90 mcg/actuation (Ventolin HFA) 1 puff inhalation RQ4H PRN amantadine HCl 100 mg PO BID atorvastatin 40 mg PO BEDTIME carbamide peroxide (Debrox) 5 DROPS EACH EAR EVERY 2 WEEKS cholecalciferol (vitamin D3) (Vitamin D3) 25 mcg PO QAM dicyclomine 20 mg PO BID divalproex ER 1,000 mg PO BEDTIME ferrous sulfate 325 mg PO QAM [FLUCINOLONE TOPICAL DAILY ] kjdejrrdryi-gdhjcqmeg-ejwcacjn 200-62.5-25 mcg (Trelegy Ellipta) 1 inh inhalation DAILY guaifenesin ER (Mucus Relief ER) 1,200 mg PO BID levothyroxine 25 mcg PO DAILY@0600 loratadine 10 mg PO DAILY magnesium oxide 400 mg PO BIDPC multivitamin with folic acid 400 mcg (Daily-Stanley (with folic acid)) 1 tab PO DAILY pantoprazole 40 mg PO BID revefenacin (Yupelri) 175 mcg (3 mL) inhalation DAILY 30 days risperidone (Risperdal) 4 mg PO BID tamsulosin 0.4 mg PO BEDTIME valproic acid 1000mg orally daily; warfarin See Protocol 2 mg orally 4MG DAILY OR DIRECTED; 4MG DAILY OR DIRECTED Nursing Note INR: 2.8 in therapeutic range of 2-3 Medications and supplements reviewed No changes in health, diet, medications, or supplements, Denies any signs and symptoms of bleeding or bruising or clotting. Bleeding, bruising, clotting discussed Nutritional guidance given Dose: 4mg X 4 days and 2mg X 3 days (//) F/U INR: 3 weeks Patient verbalizes understanding of instructions given Anti-Coag Initial Assessment Social Hx Patient Tobacco Use Status: Refuse Tobacco use screen alcohol intake: never Coding Level of Care Code Est Patient Level 1 Diagnoses Current use of anticoagulant therapy Z79.01 Results AMB INR Fingerstick AMB INR Fingerstick 2.8 Last Edit by Nivia Beaver RN on 02/13/25 13:35 interface delay Assessment & Plan Assessment & Plan (1) Current use of anticoagulant therapy: Code(s): Z79.01 - oysterman (current) use of anticoagulants Category: Medical
--- OUTSIDE RECORDS SUMMARY | 2025-02-13 17:12 | XMS_ITS | Clinical Summary ---
Author Organization [facility], Address [address] [place] [address] [place] [address] Phone Care Team Providers Care Slot Floor Attendant Name Role Phone YatesBc Primary Care Provider Allergies No known active allergies Medications D3-50 1.25 MG (62516 UT) capsule TAKE 1 CAPSULE BY MOUTH [...] [facility] [address] [place] [address] Trever Lopez MD [address] [place] [phone] Health Maintenance Due Date Last Done Comments [...] topic Insurance Medicare Medicaid [place] Care Teams Slot Floor Attendant Relationship Specialty Start Date End Date Bc Yates PCP - General Internal Medicine 10/05/22
--- OUTSIDE RECORDS SUMMARY | 2025-02-13 17:12 | XMS_ITS | Encounter Summary ---
Author Organization [facility] Address [address] [place] [address] Phone Care Team Providers Care Porcelain Enameling Supervisor Name Role Phone Bc Yates Primary Care Provider [phone] Encounter Details Date Type Department Care Team (Late st Contact Info) Description 05/26/2021 Documentation Only [facility] [address] [place] [address] Trever Lopez MD [address] [place] [address] [place] [address] Social History Tobacco Use Types [...] Visit [facility] [address] [place] [address] Trever Lopez MD [address] [place] [address] [place] [address] documented as of this encounter Visit Diagnoses Not on filedocumented in this encounter Care Teams Porcelain Enameling Supervisor Relationship Specialty Start Date End Date Bc Yates PCP - General Internal Medicine 10/05/22 documented as of this encounter
--- OUTSIDE RECORDS SUMMARY | 2025-02-13 17:12 | XMS_ITS | Encounter Summary ---
Author Organization [facility] Address [address] [place] [address] Phone Care Team Providers Care Auto Wheel Alignment Specialist Name Role Phone Bc Yates Primary Care Provider [phone] Reason for Visit * Reason Comments Med Refill Encounter Details Date Type Department Care Team (Late st Contact Info) Description 01/13/2022 Refill [facility] [address] [place] [address] Trever Lopez MD [address] [place] [place] [address] Social History Tobacco Use Types [...] Visit [facility] [address] [place] [address] Trever Lopez MD [address] [place] [address] documented as of this encounter Visit Diagnoses Not on filedocumented in this encounter Care Teams Auto Wheel Alignment Specialist Relationship Specialty Start Date End Date Bc Yates PCP - General Internal Medicine 10/05/22 documented as of this encounter
== END 2025-02-13 13:41 | disposition home or self-care (01) ==
LOC: HO.ACS 13:23
PROVIDERS: PCP Internal Medicine; Visit Provider Internal Medicine Medical Oncology
DX: Z79.01 Long term (current) use of anticoagulants (principal)

== ENCOUNTER → 2025-02-13 13:23 | Outpatient (BNVA) | payer MEDICARE, MEDICAID, SELFPAY | PROVIDERS: PCP Internal Medicine; Visit Provider Internal Medicine Medical Oncology | DX: Z95.2 Presence of prosthetic heart valve (principal); Z51.81 Encounter for therapeutic drug level monitoring; Z79.01 Long term (current) use of anticoagulants | CPT/HCPCS: 85610; 99211 ==

== ENCOUNTER → 2025-02-26 09:21 | Outpatient (REF) | payer MEDICARE, MEDICAID, SELFPAY ==
--- NOTE | 2025-02-26 09:30 | CA_ITS ---
Acquisition Time: 2025-02-26 09:33:42 Total Exercise Time: 00:02:00 Test Indications: Syncope Medications: WARFARIN Protocol: LEXISCAN Max HR: 99 BPM 66% of Pred: 148 BPM Max BP: 122/68 mmHG Max Work Load: 1.0 METS Pharmacological stress test with Lexiscan while pt moves his legs, with reports of SOB and dizziness, with normotenisve response to injection. Baseline STabnormality, unchanged with injection. In recovery, pt treated with IVP Aminophylline 75 mg to reverse Lexiscan after which symptoms resolved and pt feeling back to baseline. Nuclear images pending. Test reviewed with Dr. Coreas. Referred By: Juju Underwood Electronically Signed By: Juvenal Em
== END ==
LOC: HO.CARD 09:21
PROVIDERS: PCP Internal Medicine; Visit Provider Physician Assistant Surgical
DX: R06.02 Shortness of breath (principal); R55 Syncope and collapse; Z79.01 Long term (current) use of anticoagulants
CPT/HCPCS: 78452; 93017; A9500; J0280; J2785

== ENCOUNTER → 2025-02-26 09:30 | Outpatient (BNV) | payer MEDICARE, MEDICAID, SELFPAY | PROVIDERS: PCP Internal Medicine | DX: R06.02 Shortness of breath (principal); R42 Dizziness and giddiness | CPT/HCPCS: 78452; 93016; 93018 ==

== ENCOUNTER 2025-03-06 10:56 | Outpatient (AMB) | payer MEDICARE, MEDICAID, SELFPAY ==
[2025-03-06 11:09] LABS: Prothrombin Time Whole Bld POC 23.9 sec (11.1-13.5); ~PT, ~INR - Anti Coag Clinic 2.0 (0.9-1.1)
--- OUTSIDE RECORDS SUMMARY | 2025-03-06 14:15 | XMS_ITS | Encounter Summary ---
Author Organization [employer] Address [address] [facility] 7 [place] [address] Care Team Providers Care Ambulance Dispatcher Name Role Phone Bc Hunter MD Primary Care Prov ider Reason for Visit * Reason Onset Date Comments Nurse Triage 2024 Encounter Details Date Type Department Care Team ([facility] st Contact Info) Description 2024 Telephone [facility] MEDICINE [address] [place] [address] Bc Hunter MD [address] [place], [place] [phone] Nurse Triage Social History Tobacco Use Types [...] called pt to triage, spoke to group leader, ANTONIO. pt was seen on 06/14 by [facility] pulmonology on 06/14 and due to some distress was sent to the ER for evaluation. pt diagnosed with Pneumonia and put onantibiotics x5 days. worker states pt eating and drinking, not having any fevers or severe/sustained sob, or other associated symptoms. given appt Wednesday with [facility] at 1:00 for exam and [...] 2024 3:49 PM EDT Tc from Patient EQUIPMENT OPERATOR to report ED visit on : Date: 06/14 Hospital: [facility] Seen for: pneumonia Symptomatic Yes *if yes message should go to Triage Patient advised will forward to team nurse for follow up [phone] pt documented in this encounter Plan of Treatment Upcoming Encounters Date Type Department Care Team (Late st Contact Info) Description 03/08/2025 9:00 AM EST Office Visit [facility] MED & PEDS [address] [place] [address] Bc Hunter MD [address] [place] [address] documented as of this encounter Visit Diagnoses Not on filedocumented in this encounter Additional Health Concerns Assessment Noted Time PHQ-9 Depression Total Score: 0 09/30/19 24 11:02 AM EDT documented as of this encounter Care Teams Ambulance Dispatcher Relationship Specialty Start Date End Date Bc Hunter MD [address] [place] [address] PCP - General Internal Medicine 01/03/19 documented as of this encounter
--- OUTSIDE RECORDS SUMMARY | 2025-03-06 14:15 | XMS_ITS | Encounter Summary ---
Author Organization [employer] Address [address] [facility] 7 [place] [address] Care Team Providers Care Industrial Engineering Intern Name Role Phone Bc Hunter MD Primary Care Prov ider Reason for Visit * Reason Onset Date Comments Call Back Request 11/15/2024 Encounter Details Date Type Department Care Team ([facility] Contact Info) Description 11/15/2024 Telephone [facility] MED & PEDS [address] [place] [address] Bc Hunter MD [address] [place] [address] Call Back Request Social History Tobacco Use [...] 12:04 PM EDT TC to Olga with [facility]. Stated needs clarification to have claritin scheduled, have atorvastatin scheduled for HS and have FeSulfate scheduled for PM. Advised will fax over telephone order form and have pcp update order to [facility]. Fax sent to [facility] with confirmation. * Telephone Encounter - Jenn Krishnamurthy - 11/15/2024 11:06 AM EDT Tc from Olga Cage at [facility] requesting a call back to discuss medication labels Contact Olga at [phone] documented in this encounter Plan of Treatment Upcoming Encounters Date Type Department Care Team (Late st Contact Info) Description 03/08/2025 9:00 AM EST Office Visit [facility] MED & PEDS [address] [place] [address] Bc Hunter MD [address] [place] [address] documented as of this encounter Visit Diagnoses [...] as of this encounter Care Teams Industrial Engineering Intern Relationship Specialty Start Date End Date Bc Hunter MD [address] [place] [address] PCP - General Internal Medicine 01/03/19 documented as of this encounter
--- OUTSIDE RECORDS SUMMARY | 2025-03-06 14:15 | XMS_ITS | Encounter Summary ---
Author Organization [employer] Address [address] [facility] 7 [place] [address] Care Team Providers Care Saddle And Side Wire Stitcher Name Role Phone Bc Hunter MD Primary Care Prov ider Reason for Visit * Reason Comments Med Change Request Encounter Details Date Type Department Care Team ([facility] Contact Info) Description 07/19/2023 Refill [facility] MED & PEDS [address] [place] [address] Oralia Mazariegos FNP [address] [place] [address] Social History Tobacco Use Types Packs/Day Years [...] Description 03/08/2025 9:00 AM EST Office Visit [facility] MED & PEDS [address] [place] [address] Bc Hunter MD [address] [place] [address] documented as of this encounter Visit Diagnoses Not on filedocumented in this encounter Additional Health Concerns Assessment Noted Time PHQ-9 Depression Total Score: 0 07/11/19 23 11:26 AM EDT documented as of this encounter Care Teams Saddle And Side Wire Stitcher Relationship Specialty Start Date End Date Bc Hunter MD [address] [place] [address] PCP - General Internal Medicine 01/03/19 documented as of this encounter
--- OUTSIDE RECORDS SUMMARY | 2025-03-06 14:15 | XMS_ITS | Encounter Summary ---
Author Organization [employer] Address [address] [facility] 7 [place] [address] Care Team Providers Care High School Business Teacher Name Role Phone Bc Hunter MD Primary Care Prov ider Reason for Visit * Reason Onset Date Comments Med Refill 05/15/2022 Encounter Details Date Type Department Care Team ([facility] st Contact Info) Description 05/15/2022 Telephone [facility] MED & PEDS [address] [place] [address] Bc Hunter MD [address] [place] [address] Med Refill Social History Tobacco Use Types [...] daily dose. Call placed to [facility] Coumadin clinic. Per Della, pt [...] 11:54 AM EST Tc from Amy with [facility] requesting some kinds of specific directions for warfarin (Coumadin) 2 MG tablet If any question please contact amy at [phone] documented in this encounter Plan of Treatment Upcoming Encounters Date Type Department Care Team (Late st Contact Info) Description 03/08/2025 9:00 AM EST Office Visit [facility] MED & PEDS [address] [place] [address] Bc Hunter MD [address] [place] [address] documented as of this encounter Visit Diagnoses Not on filedocumented in this encounter Care Teams High School Business Teacher Relationship Specialty Start Date End Date Bc Hunter MD [address] [place] [address] PCP - General Internal Medicine 01/03/19 documented as of this encounter
--- OUTSIDE RECORDS SUMMARY | 2025-03-06 14:15 | XMS_ITS | Encounter Summary ---
Author Organization [employer] Address [address] [facility] 7 [place] [address] Care Team Providers Care Biotechnician Name Role Phone Bc Hunter MD Primary Care Prov ider Reason for Visit * Reason Onset Date Comments Medication Question 08/29/2024 Encounter Details Date Type Department Care Team ([facility] Contact Info) Description 08/29/2024 Telephone [facility] MEDICINE [address] [place] [address] Bc Hunter MD [address] [place], [place] [phone] Medication Question Social History Tobacco Use Types [...] - 08/29/2024 1:29 PM EDT Tc from [place] staff with [facility] reports Doctors orders and script pharmacy has do not match .Please contact [facility] for medication reconciliation. documented in this encounter Plan of Treatment Upcoming Encounters Date Type Department Care Team (Late st Contact Info) Description 03/08/2025 9:00 AM EST Office Visit [facility] MED & PEDS [address] [place] [address] Bc Hunter MD [address] [place] [address] documented as of this encounter Visit Diagnoses Not on filedocumented in this encounter Additional Health Concerns Assessment Noted Time PHQ-9 Depression Total Score: 0 09/30/19 24 11:02 AM EDT documented as of this encounter Care Teams Biotechnician Relationship Specialty Start Date End Date Bc Hunter MD [address] [place] [address] PCP - General Internal Medicine 01/03/19 documented as of this encounter
--- OUTSIDE RECORDS SUMMARY | 2025-03-06 14:15 | XMS_ITS | Encounter Summary ---
Author Organization [employer] Address [address] [facility] 7 [place] [address] Care Team Providers Care Crew Clerk Name Role Phone Bc Hunter MD Primary Care Prov ider Reason for Visit * Reason Onset Date Comments Call Back Request 07/05/2024 Encounter Details Date Type Department Care Team ([facility] st Contact Info) Description 07/05/2024 Telephone [facility] MEDICINE [address] [place] [address] Bc Hunter MD [address] [place], [place] [phone] Call Back Request Social History Tobacco Use [...] 12:18 PM EDT Tc from Kimberly with [facility] requesting a call back regarding the pt Lovenox. Contact Kimberly at [phone] documented in this encounter Plan of Treatment Upcoming Encounters Date Type Department Care Team (Late st Contact Info) Description 03/08/2025 9:00 AM EST Office Visit [facility] MED [facility] PEDS [address] [place] [address] Bc Hunter MD [address] [place] [address] documented as of this encounter Visit Diagnoses Not on filedocumented in this encounter Additional Health Concerns Assessment Noted Time PHQ-9 Depression Total Score: 0 09/30/19 24 11:02 AM EDT documented as of this encounter Care Teams Crew Clerk Relationship Specialty Start Date End Date Bc Hunter MD [address] [place] [address] PCP - General Internal Medicine 01/03/19 documented as of this encounter
--- OUTSIDE RECORDS SUMMARY | 2025-03-06 14:15 | XMS_ITS | Encounter Summary ---
Author Organization [employer] Address [address] [place] [address] 7 [place] [address] Care Team Providers Care Frame Feeder Name Role Phone Bc Hunter MD Primary Care Prov ider Encounter Details Date Type Department Care Team (Late Contact Info) Description 05/18/2022 Orders Only [facility] MED & PEDS [address] [place] [address] cB Hunter MD [address] [place], [place] [phone] S/P aortic valve replacement Social History Tobacco [...] 03/08/2025 9:00 AM EST Office Visit [facility] MED & PEDS [address] [place] [address] Bc Hunter MD [address] [place], [place] [phone] documented as of this encounter Visit Diagnoses Diagnosis S/P aortic valve replacement Heart valve replaced by other means documented in this encounter Care Teams Frame Feeder Relationship Specialty Start Date End Date Bc Hunter MD [address] [place] [address] PCP - General Internal Medicine 01/03/19 documented as of this encounter
--- OUTSIDE RECORDS SUMMARY | 2025-03-06 14:15 | XMS_ITS | Encounter Summary ---
Author Organization [employer] Address [address] [facility] 7 [place] [address] Care Team Providers Care Biological Plant Operator Name Role Phone Bc Hunter MD Primary Care Prov ider Reason for Visit * Reason Onset Date Comments Nurse Triage 05/26/2023 Encounter Details Date Type Department Care Team ([facility] st Contact Info) Description 05/26/2023 Telephone [facility] MEDICINE [address] [place] [address] Bc Hunter MD [address] [place], [place] [phone] Nurse Triage Social History Tobacco Use Types [...] appetite is poor. Pt weight yesterday at an/ssn 2 4 operator apt is 173lbs. Pt was said to be around 202lbs regularly. Pt clothes are fitting very loosely now. Pt also wanted to stop coumadin but, an/ssn 2 4 operator instructed that wouldn't be good to [...] acuity questions The caller accepted this outcome [phone] documented in this encounter Plan of Treatment Upcoming Encounters Date Type Department Care Team ([facility] st Contact Info) Description 03/08/2025 9:00 AM EST Office Visit [facility] MED & PEDS [address] [place] [address] Bc Hunter MD [address] [place] [address] documented as of this encounter Visit Diagnoses Not on filedocumented in this encounter Additional Health Concerns Assessment Noted Time PHQ-9 Depression Total Score: 0 07/11/19 23 11:26 AM EDT documented as of this encounter Care Teams Biological Plant Operator Relationship Specialty Start Date End Date Bc Hunter MD [address] [place] [address] PCP - General Internal Medicine 01/03/19 documented as of this encounter
--- OUTSIDE RECORDS SUMMARY | 2025-03-06 14:15 | XMS_ITS | Encounter Summary ---
Author Organization [employer] Address [address] [place] [address] Care Team Providers Care Center Medical Director Name Role Phone Bc Hunter MD Primary Care Prov ider Reason for Visit * Reason Comments Med Refill Encounter Details Date Type Department Care Team (Late Contact Info) Description 10/25/2022 Refill [facility] MED & PEDS [address] [place] [address] Bc Hunter MD [address] [place] [address] Social History Tobacco Use Types Packs/Day Years [...] Description 03/08/2025 9:00 AM EST Office Visit [facility] MED & PEDS [address] [place] [address] Bc Hunter MD [address] [place] [address] documented as of this encounter Visit Diagnoses Not on filedocumented in this encounter Additional Health Concerns Assessment Noted Time PHQ-9 Depression Total Score: 0 07/11/19 23 11:26 AM EDT documented as of this encounter Care Teams Center Medical Director Relationship Specialty Start Date End Date Bc Hunter MD [address] [place] [address] PCP - General Internal Medicine 01/03/19 documented as of this encounter
--- OUTSIDE RECORDS SUMMARY | 2025-03-06 14:15 | XMS_ITS | Encounter Summary ---
Author Organization [employer] Address [address] [facility] 7 [place] [address] Care Team Providers Care Warehouse Shift Supervisor Name Role Phone Bc Hunter MD Primary Care Prov ider Reason for Visit * Reason Comments Med Refill Encounter Details Date Type Department Care Team ([facility] st Contact Info) Description 08/06/2024 Refill [facility] MEDICINE [address] [place] [address] Bc Hunter MD [address] [place], [place] [phone] Social History Tobacco Use Types Packs/Day Years [...] Description 03/08/2025 9:00 AM EST Office Visit [facility] MED & PEDS [address] [place] [address] Bc Hunter MD [address] [place] [address] documented as of this encounter Visit Diagnoses Not on filedocumented in this encounter Additional Health Concerns Assessment Noted Time PHQ-9 Depression Total Score: 0 09/30/19 24 11:02 AM EDT documented as of this encounter Care Teams Warehouse Shift Supervisor Relationship Specialty Start Date End Date Bc Hunter MD [address] [place] [address] PCP - General Internal Medicine 01/03/19 documented as of this encounter
--- OUTSIDE RECORDS SUMMARY | 2025-03-06 14:15 | XMS_ITS | Encounter Summary ---
Author Organization [employer] Address [address] [place] [address] 7 [place] [address] Care Team Providers Care Reporting Lead Name Role Phone Bc Hunter MD Primary Care Prov ider Reason for Visit * Reason Comments Pre-visit Planning SDOH was already com pleted Encounter Details Date Type Department Care Team ([facility] Contact Info) Description 03/01/2025 Patient Outreach [facility] MED & PEDS [address] [place] [address] Bc Hunter MD [address] [place] [address] Pre-visit Planning (SDOH was already completed) Social History Tobacco Use Types Packs/Day Years [...] AM EDT documented as of this encounter Progress Notes * Arcelia Randhawa - 03/01/2025 4:30 PM EST CC rAcelia Holloway placed successful outbound call to patient for pre-visit planning. Patient name and confirmed. Patient confirms appt date and time, and has transportation arrangements. Biggest concern for appointment at this time is no concerns. Appropriate screenings completed in anticipation ofappointment. documented in this encounter Plan of Treatment Upcoming Encounters Date Type Department Care Team (Late st Contact Info) Description 03/08/2025 9:00 AM EST Office Visit [facility] MED & PEDS [address] [place] [address] Bc Hunter MD [address] [place] [address] documented as of this encounter Visit Diagnoses Not on filedocumented in this encounter Additional Health Concerns Assessment Noted Time PHQ-9 Depression Total Score: 0 01/09/20 11:39 AM EDT documented as of this encounter Care Teams Reporting Lead Relationship Specialty Start Date End Date Bc Hunter MD [address] [place] [address] PCP - General Internal Medicine 01/03/19 documented as of this encounter
--- OUTSIDE RECORDS SUMMARY | 2025-03-06 14:15 | XMS_ITS | Encounter Summary ---
Author Organization [employer] Address [address] [place] [address] Care Team Providers Care Gear Coding Machine Operator Name Role Phone Bc Hunter MD Primary Care Prov ider Encounter Details Date Type Department Care Team ([facility] st Contact Info) Description 02/26/2025 Orders Only [facility] External Provider, [facility] Social History Tobacco Use Types Packs/Day Years [...] [facility] Center st Contact Info) Description 03/08/2025 9:00 AM EST Office Visit [facility] MED & PEDS [address] [place] [address] Bc Hunter MD [address] [place], [place] [phone] documented as of this encounter Procedures Procedure Name Priority Date/Time Associated Diagnosis Comments NM HEART PERFUSION SPECT STRESS AND REST Routine 02/26/2025 10:12 AM EST documented in this encounter Results * NM heart perfusion SPECT stress and rest (02/26/2025 10:12 AM EST) Anatomical Region Laterality Modality Body Nuclear Medicine 02/26/2025 10:1 2 AM EST Narrative 03/01/2025 4:08 PM EST [address] [address] Nuclear Medicine Report Signed Patient: Chris Zaragoza MR#: [id number] : 1950 Acct:[id number] Age/Sex: 74 / M ADM Date: 02/26/25 Loc: HO.LIONEL Attending Dr: Juju KOTHARI Ordering Physician: JUJU MERCEDES Date of Service: 02/26/25 Procedure(s): NM ken perf SPECT rest str Accession Number(s): [id number] cc: Bc Hunter MD; JUJU MERCEDES Reason for Exam: SOB LEXISCAN STRESS Lexiscan Myocardial perfusion study Indication: Shortness of breath to evaluate for myocardial ischemia Technique: The patient was brought in for a Lexiscan perfusion study on 02/26/2025 and was injected 0.4 mg of Lexiscan intravenously. Within a minute of this injection 30 mCi of sestamibi was given intravenously. Images were obtained using the SPECT gamma camera interlaced with the gating device. Images were obtained in supine position. Resting perfusion study was performed on 02/28/2025. Patient was administered 30 mCi of sestamibi intravenously at rest. Images were then obtained in supine position. Images were processed with the software and compared side to side in short axis, horizontal long axis and vertical long axis views. Images obtained without without CT attenuation. Total DLP 87 mGy-cm Findings: Stress and rest perfusion study were suboptimal due to intense subdiaphragmatic uptake predominantly of the liver interfering with inferior myocardial uptake The stress perfusion study showed nonattenuated images show focal area of moderately reduced uptake and inferoapical wall of the LV myocardium. Remainder of the LV myocardium appears to be normally perfused. Attenuated corrected images suboptimal and shows moderately reduced uptake in the apex. The gated study shows normal LV systolic function with visually estimated LVEF of greater than 55%. LV cavity is normal in size. The gated study shows normal systolic wall thickening and contraction of segments. Resting study shows nonattenuated images show minimally reduced uptake in the inferoapical wall of the LV myocardium. Attenuated corrected images are suboptimal. Gating at rest reveals normal systolic wall motion with ejection fraction at greater than 55%. The findings are consistent with focal area of mildly reversible defect in the inferoapical wall which could suggest ischemia. However significant interferences subdiaphragmatic uptake makes confidence of diagnostic interpretation on the lower side. NM/NM ken perf SPECT rest str Impression: 1. Myocardial perfusion imaging study shows equivocal for focal area of inferoapical ischemia 2. Gated LVEF is greater than 55% 3. Transient ischemic dilatation not present Nondiagnostic changes on EKG. Electronically signed by: Fuentes Coreas MD 03/01/2025 04:06 PM [facility] Dictated By: Fuentes Coreas MD Signed By: <Electronically signed by Fuentes Coreas MD in OV> 03/01/25 1606 DD/ 1012 TD/TT: 02/28/25 1225 Candy Spreader Helper: Procedure Note Donotuseinterpreter, Image - 03/01/[address] [address] Nuclear Medicine Report Signed Patient: Amos Zaragoza#: [id number] : 3Acct:[id number] Age/Sex: 74 / MADM Date: 02/26/25 Loc: HO.CARD Attending Dr: Juju KOTHARI Ordering Physician: JUJU MERCEDES Date of Service: 02/26/25 Procedure(s): NM ken perf SPECT rest str Accession Number(s): [id number] cc: Bc Hunter MD; JUJU MERCEDES Reason for Exam: SOB LEXISCAN STRESS Lexiscan Myocardial perfusion study Indication: Shortness of breath to evaluate for myocardial ischemia Technique: The patient was brought in for a Lexiscan perfusion study on 02/26/2025 and was injected 0.4 mg of Lexiscan intravenously. Within a minute of this injection 30 mCi of sestamibi was given intravenously. Images were obtained using the SPECT gamma camera interlaced with the gating device. Images were obtained in supine position. Resting perfusion study was performed on 02/28/2025. Patient was administered 30 mCi of sestamibi intravenously at rest. Images were then obtained in supine position. Images were processed with the software and compared side to side in short axis, horizontal long axis and vertical long axis views. Images obtained without without CT attenuation. Total DLP 87 mGy-cm Findings: Stress and rest perfusion study were suboptimal due to intense subdiaphragmatic uptake predominantly of the liver interfering with inferior myocardial uptake The stress perfusion study showed nonattenuated images show focal area of moderately reduced uptake and inferoapical wall of the LV myocardium. Remainder of the LV myocardium appears to be normally perfused. Attenuated corrected images suboptimal and shows moderately reduced uptake in the apex. The gated study shows normal LV systolic function with visually estimated LVEF of greater than 55%. LV cavity is normal in size. The gated study shows normal systolic wall thickening and contraction of segments. Resting study shows nonattenuated images show minimally reduced uptake in the inferoapical wall of the LV myocardium. Attenuated corrected images are suboptimal. Gating at rest reveals normal systolic wall motion with ejection fraction at greater than 55%. The findings are consistent with focal area of mildly reversible defect in the inferoapical wall which could suggest ischemia. However significant interferences subdiaphragmatic uptake makes confidence of diagnostic interpretation on the lower side. NM/NM ken perf SPECT rest str Impression: 1. Myocardial perfusion imaging study shows equivocal for focal area of inferoapical ischemia 2. Gated LVEF is greater than 55% 3. Transient ischemic dilatation not present Nondiagnostic changes on EKG. Electronically signed by: Fuentes Coreas MD 03/01/2025 04:06 PM [facility] Dictated By: Fuentes Coreas MD Signed By: <Electronically signed by Fuentes Coreas MD in OV> 03/01/25 1606 DD/ 1012 TD/TT: 02/28/25 1225 Candy Spreader Helper: [facility] External Provider IMG NM PROCEDURES Edited Result - Final documented in this encounter Visit Diagnoses Not on filedocumented in this encounter Additional Health Concerns Assessment Noted Time PHQ-9 Depression Total Score: 0 01/09/20 11:39 AM EDT documented as of this encounter Care Teams Gear Coding Machine Operator Relationship Specialty Start Date End Date Bc Hunter MD [address] [place] [address] PCP - General Internal Medicine 01/03/19 documented as of this encounter
--- OUTSIDE RECORDS SUMMARY | 2025-03-06 14:15 | XMS_ITS | Encounter Summary ---
Author Organization [employer] Address [address] [place] [address] Care Team Providers Care Sap Enterprise Portal Consultant Name Role Phone Bc Hunter MD Primary Care Prov ider Encounter Details Date Type Department Care Team (Late Contact Info) Description 02/24/[address] [facility] [address] [place], [place] [phone] Bc Hunter MD [address] [place], [place] [phone] Social History Tobacco Use Types Packs/Day Years [facility] [address] [place], [place] [phone] Bc Hunter MD [address] [place], [place] [phone] documented as of this encounter Visit Diagnoses Not on filedocumented in this encounter Care Teams Sap Enterprise Portal Consultant Relationship Specialty Start Date End Date Bc Hunter MD [address] [place], [place] [phone] PCP - General Internal Medicine 01/03/19 documented as of this encounter
--- OUTSIDE RECORDS SUMMARY | 2025-03-06 14:15 | XMS_ITS | Encounter Summary ---
Author Organization [employer] Address [address] [facility] 7t [place] [address] Care Team Providers Care Painting Contractor Name Role Phone Bc Hunter MD Primary Care Prov ider Encounter Details Date Type Department Care Team ([facility] st Contact Info) Description 03/06/2025 Orders Only GENERIC EXTERNAL DATA DEPARTMENT Provider, [...] [facility] [address] [place] [address] Bc Hunter MD [address] [place], [place] [phone] documented as of this encounter Procedures Procedure Name Priority Date/Time Associated Diagnosis Comments PROTHROMBIN TIME WHOLE BLD POC Routine 03/06/2025 11:06 AM EST ~PT, ~INR - ANTI COAG CLINIC Routine 03/06/2025 11:06 AM EST documented in this encounter Results * (ABNORMAL) PROTHROMBIN TIME WHOLE BLD POC (03/06/2025 11:06 AM EST) Protime 23.9(H) 11.1 - 13.5 sec [facility] 03/06/2025 11:0 6 AM EST 03/06/2025 11:09 AM EST us Generic External Data Provider LAB BLOOD ORDERAB LES Final Result [facility] [address] [place] [address] [phone] * (ABNORMAL) ~PT, ~INR - ANTI COAG CLINIC (03/06/2025 11:06 AM EST) Prothrombin Time INR 2.0(H) 0.9 - 1.1 [facility] Comment:METER #: [id number] TERNATIONAL NORMALIZED RATIO (INR) REFERENCE RANGES Reference RangeFor patients not on anticoagulant therapy: 0.9 - 1.1INR ranges for oral anticoagulanttherapy:For prevention and treatment of venous thrombosis and pulmonary embolism: 2.0 - 3.0For acute myocardial infarction with aspirin therapy: 2.0 - 3.0For acute myocardial infarction without aspirin therapy: 3.0 - 4.0For patients with mechanical prosthetic heart valves: 2.5 - 3.5 03/06/2025 11:0 6 AM EST 03/06/2025 11:09 AM EST us Generic External Data Provider LAB BLOOD ORDERAB LES Final Result [facility] [address] [place] [address] [phone] documented in this encounter Visit Diagnoses Not on filedocumented in this encounter Additional Health Concerns Assessment Noted Time PHQ-9 Depression Total Score: 0 01/09/20 25 11:39 AM EDT documented as of this encounter Care Teams Painting Contractor Relationship Specialty Start Date End Date Bc Hunter MD [address] [place] [id number] PCP - General Internal Medicine 01/03/19 documented as of this encounter
--- OUTSIDE RECORDS SUMMARY | 2025-03-06 14:15 | XMS_ITS | Encounter Summary ---
Author Organization [employer] Address [address] [facility] 7 [place] [address] Care Team Providers Care Blue Line Trimmer Name Role Phone Bc Hunter MD Primary Care Prov ider Encounter Details Date Type Department Care Team (Late st Contact Info) Description 09/20/2023 Orders Only [facility] MED & PEDS [address] [place], [place] [phone] Bc Hunter MD [address] [place] [address] Social History Tobacco Use Types Packs/Day Years [...] AM EST Office Visit [facility] MED & PEDS [address] [place] [address] Bc Hunter MD [address] [place] [address] documented as of this encounter Visit Diagnoses Not on filedocumented in this encounter Additional Health Concerns Assessment Noted Time PHQ-9 Depression Total Score: 0 07/11/19 23 11:26 AM EDT documented as of this encounter Care Teams Blue Line Trimmer Relationship Specialty Start Date End Date Bc Hunter MD [address] [place] [address] PCP - General Internal Medicine 01/03/19 documented as of this encounter
--- OUTSIDE RECORDS SUMMARY | 2025-03-06 14:15 | XMS_ITS | Encounter Summary ---
Author Organization [employer] Address [address] [facility] 7 [place] [address] Care Team Providers Care Pelt Dropper Name Role Phone Bc Hunter MD Primary Care Prov ider Reason for Visit * Reason Onset Date Comments Med Refill 05/12/2022 Encounter Details Date Type Department Care Team ([facility] st Contact Info) Description 05/12/2022 Telephone [facility] [address] [place] [address] Bc Hunter MD [address] [place] [address] Med Refill Social History Tobacco Use Types [...] Description 03/08/2025 9:00 AM EST Office Visit [facility] MED & PEDS [address] [place] [address] Bc Hunter MD [address] [place] [address] documented as of this encounter Visit Diagnoses Not on filedocumented in this encounter Care Teams Pelt Dropper Relationship Specialty Start Date End Date Bc Hunter MD [address] [place] [address] PCP - General Internal Medicine 01/03/19 documented as of this encounter
--- OUTSIDE RECORDS SUMMARY | 2025-03-06 14:15 | XMS_ITS | Encounter Summary ---
Author Organization [employer] Address [address] [facility] 7 [place] [address] Care Team Providers Care Organ Recovery Coordinator Name Role Phone Bc Hunter MD Primary Care Prov ider Reason for Visit * Reason Comments Med Refill Encounter Details Date Type Department Care Team ([facility] st Contact Info) Description 05/18/2023 Refill [facility] MED & PEDS [address] [place] [address] Bc Hunter MD [address] [place] [address] Social History Tobacco Use Types Packs/Day Years [...] [facility] MED [facility] PEDS [address] [place] [address] Bc Hunter MD [address] [place] [address] documented as of this encounter Visit Diagnoses Not on filedocumented in this encounter Additional Health Concerns Assessment Noted Time PHQ-9 Depression Total Score: 0 07/11/19 23 11:26 AM EDT documented as of this encounter Care Teams Organ Recovery Coordinator Relationship Specialty Start Date End Date Bc Hunter MD [address] [place] [address] PCP - General Internal Medicine 01/03/19 documented as of this encounter
--- OUTSIDE RECORDS SUMMARY | 2025-03-06 14:15 | XMS_ITS | Encounter Summary ---
Author Organization [email or web address] Address [address] [place] [address] [place] [address] Care Team Providers Care Home Mission Worker Name Role Phone Bc Hunter MD Primary Care Prov ider Reason for Visit * Reason Onset Date Comments Med Refill 09/21/2022 Encounter Details Date Type Department Care Team ([facility] st Contact Info) Description 09/21/2022 Telephone [facility] MED & PEDS [address] [place] [address] Bc Hunter MD [address] [place] [address] Med Refill Social History Tobacco Use Types [...] 09/23/2022 8:28 AM EDT Pt managed by [facility] coumadin clinic. Last INR of 3.1 noted 09/17/22. Will forward request for Rx to covering provider to review. * Telephone Encounter - Ping Nettles - 09/21/2022 10:39 AM EDT Tc from pt requesting med refill on Warfarin [address] [facility]/pharmacy #[id number] - [place], [place] - [address] [facility] Please sent to documented in this encounter Plan of Treatment Upcoming Encounters Date Type Department Care Team (Late st Contact Info) Description 03/08/2025 9:00 AM EST Office Visit [facility] MED & PEDS [address] [place] [address] Bc Hunter MD [address] [place] [address] documented as of this encounter Visit Diagnoses Diagnosis History of Coumadin therapy- Primary S/P aortic valve replacement Heart valve replaced by other means documented in this encounter Additional Health Concerns Assessment Noted Time PHQ-9 Depression Total Score: 0 07/11/19 23 11:26 AM EDT documented as of this encounter Care Teams Home Mission Worker Relationship Specialty Start Date End Date Bc Hunter MD [address] [place] [address] PCP - General Internal Medicine 01/03/19 documented as of this encounter
--- OUTSIDE RECORDS SUMMARY | 2025-03-06 14:15 | XMS_ITS | Encounter Summary ---
Author Organization [employer] Address [address] [facility] 7 [place] [address] Care Team Providers Care Design Cell Engineer Name Role Phone Bc Hunter MD Primary Care Prov ider Reason for Visit * Reason Onset Date Comments Referral 12/06/2023 Encounter Details Date Type Department Care Team ([facility] st Contact Info) Description 12/06/2023 Telephone [facility] [address] [place] [address] Bc Hunter MD [address] [place], [place] [phone] Referral Social History Tobacco Use Types Packs/Day [...] [place] if[place] documented in this encounter Plan of Treatment Upcoming Encounters Date Type Department Care Team (Late st Contact Info) Description 03/08/2025 9:00 AM EST Office Visit [facility] MED [facility]EDS [address] [place] [address] Bc Hunter MD [address] [place] [address] documented as of this encounter Visit Diagnoses Not on filedocumented in this encounter Additional Health Concerns Assessment Noted Time PHQ-9 Depression Total Score: 0 09/30/19 24 11:02 AM EDT documented as of this encounter Care Teams Design Cell Engineer Relationship Specialty Start Date End Date Bc Hunter MD [address] [place] [address] PCP - General Internal Medicine 01/03/19 documented as of this encounter
--- OUTSIDE RECORDS SUMMARY | 2025-03-06 14:15 | XMS_ITS | Clinical Summary ---
Author Organization [employer] Address [address] [place] [address] 7[address] [place] [address] Care Team Providers Care It Support Engineer Name Role Phone Bc Hunter MD [...] chew, or split. 10 tablet 06/20/19 25 03/31/2 026 Active Multiple Vitamin (Daily-Stanley Multivitamin) tablet Take [...] NEEDED 18 g 3 11/01/19 25 Active guaiFENesin (Mucinex) 600 MG 12 hr tabletIndications: COPD exacerbation (CMS/HCC) (HCC) Take 2 tablets (1,200 [...] EVENING 180 tablet 1 12/02/19 25 Active Trelegy Ellipta 100-62.5-25 MCG/ACT aerosol powder INHALE 1 PUFF IN THE MORNING 60 each 3 01/18/20 Active albuterol 108 (90 Base) MCG/ACT inhalerIndications :COPD exacerbation (CMS/HCC) (HCC) Inhale 2 puffs every 6 (six) hours if needed for wheezing. 8.5 g 02/02/20 Active Active Problems Problem Noted Date Diagnosed Date Psychoactive substance abuse 10/02/2024 Cigarette nicotine dependence without complicati on 06/19/2024 Nodule of left lung 04/26/2024 Assessment & Plan (01/08/2025 12:41 PM EDT): Told to follow up with crm technical lead, previously refused undergoing biopsy Assessment & Plan (10/02/2024 1:15 PM EDT): Patient does not want to undergo biopsy, will follow up pneumology reccomendations Assessment & Plan (04/26/2024 11:54 AM EST): Will order a follow up LDCT scan, fish machine feeder was told to contact pulmonology office Seborrheic dermatitis of scalp 01/26/2023 Assessment & Plan (07/20/2023 8:52 PM EDT): Followed by [facility] Derm clinic Refill of topical [...] valve replacement 04/28/2022 Overview (07/20/2023): Followed by [facility] Coumadin Clinic Assessment & Plan (07/20/2023 8:46 PM EDT): Cardiology consult scheduled 07/20/23 No reported hx of bleeding, no reported chest pain/shortness of breath Discussed with PCP and [facility] Coumadin Clinic (Lori FLETCHER). Plan to bridge pt from Eliquis to Coumadin. May DC Eliquis once Coumadin therapeutic Coumadin dosinmg on Wednesday and Wednesday 4mg all other days of the week Plan: [facility] Coagulation clinic to reach out to skilled nursing to schedule INR check and re-start on [...] no contraindications. Stage 3a chronic kidney disease ([facility]) 2018 Assessment & Plan (10/02/2024 1:14 PM [...] nodules palpated Mild chronic obstructive pulmonary disease ([facility]) 09/22/2011 Assessment & Plan (01/08/2025 12:41 PM EDT): Symptoms resolved, smoking cessation discussed, follow up with crm technical lead Other schizophrenia 09/22/2011 Overview (07/20/2023): [facility] Assessment & Plan (10/02/2024 1:14 PM EDT): [...] Encounters Date Type Department Care Team Description 03/06/2025 Orders Only GENERIC EXTERNAL DATA DEPARTMENT Provider, Generic External Data 03/01/2025 Patient Outreach [facility] [address] [place] [address] Bc Hunter MD Pre-visit Planning ([facility] was already completed) 02/27/2025 Results Follow-Up [facility] [address] [place] [address] Kristy Waldrop RN ~PT, ~INR - ANTI COAG CLINIC, PROTHROMBIN TIME WHOLE BLD POC 02/26/2025 Orders Only [facility] External Provider, [facility] 02/13/2025 Orders Only GENERIC EXTERNAL DATA DEPARTMENT Provider, Generic External Data 02/05/2025 Orders Only GENERIC EXTERNAL DATA DEPARTMENT Provider, Generic External Data 02/01/2025 Refill [facility] [address] [place] [address] Bc Hunter MD COPD exacerbation ([facility]/HCC) (HCC) 01/25/2025 Orders Only GENERIC EXTERNAL DATA DEPARTMENT Provider, Generic External Data 01/25/2025 Travel 01/25/2025 Telephone [facility] [address] [place] [address] Bc Hunter MD Nurse Triage 01/16/2025 Orders Only GENERIC EXTERNAL DATA DEPARTMENT Provider, Generic External Data 01/15/2025 Refill [facility] [address] [place] [address] Bc Hunter MD 01/08/2025 11:15 AM EDT Office Visit [facility] [address] [place] [address] Bc Hunter MD Hyperlipemia, mixed (Primary Dx); Other iron deficiency anemia; Acquired hypothyroidism; Mild chronic obstructive pulmonary disease (CMS/HCC) (HCC); Nodule of left lung 01/08/2025 Travel 01/04/2025 Telephone [facility] [address] [place] [address] Bc Hunter MD chart prep 01/02/2025 Orders Only GENERIC EXTERNAL DATA DEPARTMENT Provider, Generic External Data 12/29/2024 Telephone [facility] [address] [place] [address] Bc Hunter MD INR LEVEL 12/29/2024 Orders [...] [facility] [address] [place], [place] [phone] Bc Hunter MD [address] [place] [address] Health Maintenance Due Date Last Done Comments [...] 03/17/2024 03/17/2019, 11/22/2014, 06/17/2000 COVID-19 Vaccine ( - season) 2024 01/14/2024, 01/09/2021, 05/16/2020, Additional [...] COAG CLINIC Routine 03/06/2025 11:06 AM EST NM HEART PERFUSION SPECT STRESS AND REST Routine 02/26/2025 10:12 AM EST PROTHROMBIN TIME WHOLE BLD POC Routine 02/13/2025 1:32 PM EST ~PT, ~INR - ANTI COAG CLINIC Routine 02/13/2025 1:32 PM EST PROTHROMBIN TIME WHOLE BLD POC Routine 02/05/2025 [...] COAG CLINIC Routine 12/05/2024 11:09 AM EDT LIPID PANEL, STANDARD Routine 05/06/2023 11:48 AM EST Hyperlipemia, mixed HEPATITIS C AB W/REFL TO HCV RNA, QN, PCR Routine 07/10/2022 11:31 AM EDT S/P aortic valve replacement Pre-op evaluation from Last 3 Months or Most Recently Relevant to Health Maintenance Results * (ABNORMAL) PROTHROMBIN TIME WHOLE BLD POC (03/06/2025 11:06 AM EST) Only the most recent of7 resultswithin the time period is included. Protime 23.9(H) 11.1 - 13.5 sec [facility] 03/06/2025 11:0 6 AM EST 03/06/2025 11:09 AM EST us Generic External Data Provider LAB BLOOD ORDERAB LES Final Result [facility] [address] [place] [phone] * (ABNORMAL) ~PT, ~INR - ANTI COAG CLINIC (03/06/2025 11:06 AM EST) Only the most recent of7 resultswithin the time period is included. Prothrombin Time INR 2.0(H) 0.9 - 1.1 [facility] Comment:METER #: [id number] TERNATIONAL NORMALIZED RATIO (INR) REFERENCE RANGES Reference [...] ORDERAB LES Final Result Performing Organization Address City/State/[facility] Co de Phone Number [facility] [address] [place] [address] [phone] * NM heart perfusion SPECT stress and rest (02/26/2025 10:12 AM EST) Anatomical Region Laterality Modality Body Nuclear Medicine 02/26/2025 10:1 2 AM EST Narrative 03/01/2025 4:08 PM EST [address] [address] Nuclear Medicine Report Signed Patient: Chris Zaragoza MR#: [id number] : 1950 Acct:[id number] Age/Sex: 74 / M ADM Date: 02/26/25 Loc: DALI Attending Dr: Brittany KOTHARI Ordering Physician: BRITTANY MERCEDES Date of Service: 02/26/25 Procedure(s): NM ken perf SPECT rest str Accession Number(s): [id number] cc: Bc Hunter MD; BRITTANY MERCEDES Reason for Exam: SOB LEXISCAN STRESS [...] by: Fuentes Coreas MD 03/01/2025 04:06 PM [facility] Dictated By: Fuentes Coreas MD Signed By: <Electronically signed by Fuentes Coreas MD in OV> 03/01/25 1606 DD/ 1012 TD/TT: 02/28/25 1225 Criminal Justice Social Worker: Procedure Note Donotuseinterpreter, Image - 03/01/2025 [address] [place] [address] Nuclear Medicine Report Signed Patient: Cary ZaragozaR#: [id number] : 3Acct:[id number] Age/Sex: 74 / MADM Date: 02/26/25 Loc: DALI Attending Dr: Brittany KOTHARI Ordering Physician: BRITTANY MERCEDES Date of Service: 02/26/25 Procedure(s): NM ken perf SPECT rest str Accession Number(s): [id number] cc: Bc Hunter MD; BRITTANY MERCEDES Reason for Exam: SOB LEXISCAN STRESS [...] by: Fuentes Coreas MD 03/01/2025 04:06 PM EST Dictated By: Fuentes Coreas MD Signed By: <Electronically signed by Fuentes Coreas MD in OV> 03/01/25 1606 DD/ 1012 TD/TT: 02/28/25 1225 Criminal Justice Social Worker: [facility] External Provider IMG NM PROCEDURES Edited Result - Final * SARS-CoV-2 RNA, Influenza A/B, and RSV RNA, Ql NAAT (01/25/2025 3:42 PM EST) Influenza A PCR NEGATIVE Negative [facility] Influenza B PCR NEGATIVE Negative [facility] Resp Syncy Virus RNA Qual PCR NEGATIVE Negative [facility] SARS COV2 PCR NEGATIVE Negative [facility] Comment:All test results mus t [...] use by authorized laboratories.Testing performed on the [employer] GeneXpert utilizingreal-time RT-PCR.All SARS CoV2 and positive influenza A/B results arereported to [facility]. 01/25/2025 3:42 PM EST 01/25/2025 3:52 PM EST Generic External Data Provider LAB MICROBIOLOGY - GENERAL ORDERABLES Final Result [facility] [address] [place] [phone] * CT Head w/o Contrast (01/25/2025 1:21 PM EST) Anatomical Region Laterality Modality Head, Neck Computed Tomogra phy 01/25/2025 1:21 PM EST Narrative 01/25/2025 1:54 PM EST [address] [address] [address] Scan Report Signed Patient: Chris Zaragoza MR#: [id number] : 1950 Acct:[id number] Age/Sex: 74 / M ADM Date: 01/25/25 Loc: HO.ED Attending Dr: Ordering Physician: Henrietta Ricks DO Date of Service: 01/25/25 Procedure(s): CT head/brain wo IV con Accession Number(s): [id number] cc: Bc Hunter MD; Henrietta Ricks DO Report Number: [id number]: Total DLP = 731.00 mGy-cm Reason for [...] by: Deon Stewart MD 01/25/2025 01:51 PM [facility] Dictated By: Deon Stewart MD Signed By: <Electronically signed by Deon Stewart MD in OV> 01/25/25 1351 DD/ 1321 TD/TT: 01/25/25 1337 Criminal Justice Social Worker: KIN Procedure Note Donotuseinterpreter, Image - 01/25/[address] [place] [address] [address] Scan Report Signed Patient: Amos Zaragoza#: [id number] : 1950cct:[id number] Age/Sex: 74 / MADM Date: 01/25/25 Loc: HO.ED Attending Dr: Ordering Physician: Henrietta Ricks DO Date of Service: 01/25/25 Procedure(s): CT head/brain wo IV con Accession Number(s): [id number] cc: Bc Hunter MD; Henrietta Ricks DO Report Number: [id number]: Total DLP = 731.00 mGy-cm Reason for [...] Deon Stewart MD 01/25/2025 01:51 PM EST RP Dictated By: Deon Stewart MD Signed By: <Electronically signed by Deon Stewart MD in OV> 01/25/25 1351 DD/ 1321 TD/TT: 01/25/25 1337 Criminal Justice Social Worker: KIN [facility] External Provider IMG CT PROCEDURES Final Result * (ABNORMAL) Prothrombin Time-INR (01/25/2025 12:13 PM EST) Prothrombin Time 21.6(H) 11.2 - 13.5 SEC [facility] INTERNATIONAL NORM RATIO 1.8(H) 0.9 - 1.1 [facility] Comment:INTERNATIONAL NORMAL IZED RATIO (INR) REFERENCE [...] LAB BLOOD ORDERAB LES Final Result [facility] [address] [place] [phone] * (ABNORMAL) CBC auto differential (01/25/2025 11:24 AM EST) White Blood Count 6.2 4.8 - 10.8 X10*3/uL [facility] Red Blood Count 3.85(L) 4.60 - 5.80 X10*6/uL [facility] Hemoglobin 11.5(L) 14.0 - 18.0 g/dl [facility] Hematocrit 35.2(L) 42.0 - 52.0 % [facility] Mean Corpuscular Volume 91.4 80.0 - 98.0 fL [facility] Mean Corpuscular Hemoglobin 29.9 27.0 - 33.0 pg [facility] Mean Corpuscular HGB Conc 32.7 31.0 - 36.0 g/dl [facility] Red Cell Distribution Width 15.6 11.0 - 16.0 % [facility] Platelet Count 282 160 - 400 X10*3/uL [facility] Mean Platelet Volume 10.0 9.4 - 12.4 fL [facility] Neutrophils Percent Auto 79.8(H) 45 - 73 % [facility] Imm Gran Pct Auto 0.3 0.0 - 0.4 % [facility] Lymphocytes Percent Auto 10.2(L) 20 - 40 % [facility] Monocytes Percent Auto 8.1 2 - 11 % [facility] Eosinophils Percent Auto 1.1 0 - 4 % [facility] Basophils Percent Auto 0.5 0 - 2 % [facility] NRBC Pct Auto 0.0 0.0 - 0.2 /100WBC [facility] Neutrophils Absolute Auto 4.9 2.0 - 8.3 x10*3/uL [facility] Imm Gran Abs Auto 0.02 0.00 - 0.03 X10*3/uL [facility] Lymphocytes Absolute Auto 0.6(L) 1.2 - 4.9 X10*3/uL [facility] Monocytes Absolute Auto 0.5 0.1 - 1.2 X10*3/uL [facility] Eosinophils Absolute Auto 0.1 0.0 - 0.4 X10*3/uL [facility] Basophils Absolute Auto 0.0 0.0 - 0.2 X10*3/uL [facility] NRBC Abs Auto 0.000 0.0 - 0.012 X10*3/uL [facility] 01/25/2025 11:2 4 AM EST 01/25/2025 11:27 AM EST us Generic External Data Provider LAB BLOOD ORDERAB LES Final Result [facility] [address] [place] [phone] * (ABNORMAL) Comprehensive Metabolic Panel (01/25/2025 11:24 AM EST) Sodium 135 135 - 145 mmol/L [facility] Potassium 4.6 3.3 - 5.1 mmol/L [facility] Comment:Slight Hemolysis.Int erpret result with caution. Chloride 100 96 - 108 mmol/L [facility] Carbon Dioxide 27 22 - 29 mmol/L [facility] Anion Gap 13 12 - 20 [facility] Urea Nitrogen (BUN) 27(H) 9 - 16 mg/dL [facility] Creatinine, Serum 1.50(H) 0.5 - 1.4 mg/dL [facility] Creatinine Clr Calc Pharmacy 48.8 [facility] Comment:eGFR (calculated fro m the MDRD study equation) and eCrCl(calculated from the Cockcroft-Gault equation) are based ondifferent parameters and may not yield comparable results.If eCrCl result is absurd, please check patient'sheight/weight. Estimated Glomerular Filt Rate 46 [facility] Comment:Chronic Kidney Disea se: Estimated GFR < 60 mL/min/1.26m0Udqsuy Kidney Disease: Estimated GFR < 15 mL/min/1.73m2 Glucose 121(H) 60 - 115 mg/dL [facility] Calcium 8.9 8.4 - 10.2 mg/dL [facility] Bilirubin, Total 0.5 0.0 - 1.0 mg/dL [facility] Aspartate Amino Transferase 32 5 - 37 U/L [facility] Comment:Slight Hemolysis.Int erpret result with caution. Alanine Aminotransferase 14 0 - 40 U/L [facility] Total Protein 6.8 6.5 - 8.0 g/dL [facility] Albumin Level 3.6 3.5 - 5.0 g/dL [facility] Alkaline Phosphatase 142(H) 39 - 117 U/L [facility] 01/25/2025 11:2 4 AM EST 01/25/2025 11:27 AM EST us Generic External Data Provider LAB BLOOD ORDERAB LES Final Result [facility] [address] [place] [phone] * Lipid Panel, Standard (05/06/2023 11:48 AM EST) Triglycerides 61 <150 mg/dL [facility] Comment:Desirable Triglyceri de: less than 150 mg/dLBorderline High Triglyceride 150-199 mg/dLHigh Triglyceride: 200-499 mg/dLVery High Triglyceride: greater than or equal to 5OO mg/dL Cholesterol 166 <200 mg/dL [facility] Comment:Desirable Cholestero l: less than 200 mg/dLBorderline High Cholesterol: 200-239 mg/dLHigh Cholesterol: greater than 239 mg/dL LDL Cholesterol Calculated 94 <100 mg/dL [facility] Comment:Desirable LDL: less than 100 mg/dLNear Optimal/Above Optimal LDL: 110- 129 mg/dLBorderline High LDL: 130-159 mg/dLHigh LDL: 160-189 mg/dLVery High LDL: greater than or equal to 190 mg/dL HDL Cholesterol 60 >40 mg/dL [facility] Comment:Desirable HDL: great er than 40 mg/dL Note: This HDL assay may give artificially low results in patients with liver disease. Blood Venous blood specimen / Unknown 05/06/2023 11:48 AM EST 05/06/2023 2:09 PM EST Bc Rascon MD LAB BLOOD ORDERABL ES Final Result [facility] [address] [place] [phone] * Hepatitis C Antibody with Reflex to HCV, RNA, Quantitative, Real-Time PCR (07/10/2022 11:31 AM EDT) Hepatitis C Antibody NON-REACT DEZ NON-REACT DEZ [employer] Index 0.09 <1.00 [employer] Comment: HCV antibody was non-reactive. There is no laboratory evidence of HCV infection. In most cases, no further action is required. However, if recent HCV exposure is suspected, a test for HCV RNA (test code 00665) is suggested. For additional information please refer to http://education.EBDSoft/faq/UGB08q9 (This link is being provided for informational/ educational purposes only.) Blood Venous blood specimen / Unknown 07/10/2022 11:31 AM EDT 07/10/2022 11:32 AM EDT Narrative [facility] - 07/11/2022 5:06 AM EDT FASTING:NO FASTING: NO Bc Rascon MD LAB BLOOD ORDERABL ES Final Result Performing Organization Address City/[facility]/ZIP Co de Phone Number [facility] [address], [place] [address] [employer] [address] [place] [phone] from Last 3 Months or Most Recently Relevant to Health Maintenance Insurance [place] [phone] [facility] Care Teams It Support Engineer Relationship Specialty Start Date End Date Bc Hunter MD [address] [place] [phone] PCP - General Internal Medicine 01/03/19
--- OUTSIDE RECORDS SUMMARY | 2025-03-06 14:15 | XMS_ITS | Clinical Summary ---
Author Organization [facility] Address [address] [place] [address] Phone Care Team Providers Care Applications Sales Representative Name Role Phone Bc Hunter Primary Care Provide r Medical History Medical History Date Comments Heart valve replaced by other means 06/29/2011 DX:Heart valve replaced by other means Asthma 06/29/2011 DX:Asthma Tobacco abuse 06/29/2011 DX:Tobacco abuse Schizophrenia ([facility]/HCC V24, CMS/HCC V28) 06/29/2011 DX:Schizophrenia ([facility] [...] on file Sexual Orientation Not on file Plan of Treatment Health Maintenance Due Date [...] Influencers of Health Screening 04/14/2024 COVID-19 Vaccine (4 - season) 2024 01/09/2021, 05/16/2020, 04/25/2020 Influenza Vaccine [...] Insurance MEDICARE MEDICAID - [place] Care Teams Applications Sales Representative Relationship Specialty Start Date End Date Bc Hunter [address] [place] [id number] PCP - General Internal Medicine 04/13/24
--- OUTSIDE RECORDS SUMMARY | 2025-03-06 14:15 | XMS_ITS | Encounter Summary ---
Author Organization [employer] Address [address] [place] [address] Care Team Providers Care Cable Stretcher And Tester Name Role Phone Bc Hunter MD Primary Care Prov ider Encounter Details Date Type Department Care Team ([facility] st Contact Info) Description 02/27/2025 Results Follow-Up [facility] [address] [place], [place] [phone] Kristy Waldrop RN ~PT, ~INR - ANTI COAG CLINIC, PROTHROMBIN TIME WHOLE BLD POC Social History Tobacco Use Types Packs/Day Years Used Date Smoking Tobacco: Every Day Cigarettes Depression Answer Date Recorded Patient Health Questionnaire-9 Score 0 01/08/2025 Patient Health Questionnaire-9 Score 0 01/08/2025 Last PHQ-9: Questionnaire Data Not on file 1 Housing Stability Answer Date Recorded What is your housing situation today? I have netochica fernandez 01/08/[address] you [...] Description 03/08/2025 9:00 AM EST Office Visit [facility] [address] [place] [address] Bc Hunter MD [address] [place] [address] documented as of this encounter Visit Diagnoses Not on filedocumented in this encounter Additional Health Concerns Assessment Noted Time PHQ-9 Depression Total Score: 0 01/09/20 25 11:39 AM EDT documented as of this encounter Care Teams Cable Stretcher And Tester Relationship Specialty Start Date End Date Bc Hunter MD [address] [place] [address] PCP - General Internal Medicine 01/03/19 documented as of this encounter
--- NOTE | 2025-03-06 14:41 | MHC.OFFVISCO ---
Intake Intake Visit Reasons: Anticoagulation Allergies No Known Allergies Allergy (Mild, Verified 03/06/25 14:41) NOT APPLICABLE Medication List - Last Reconciled 03/06/25 by Raissa Hull RN albuterol sulfate 90 mcg/actuation (Ventolin HFA) 1 puff inhalation RQ4H PRN amantadine HCl 100 mg PO BID atorvastatin 40 mg PO BEDTIME carbamide peroxide (Debrox) 5 DROPS EACH EAR EVERY 2 WEEKS cholecalciferol (vitamin D3) (Vitamin D3) 25 mcg PO QAM dicyclomine 20 mg PO BID divalproex ER 1,000 mg PO BEDTIME ferrous sulfate 325 mg PO QAM [FLUCINOLONE TOPICAL DAILY ] ghipnzlmalb-smserwvlt-xcbbpgyf 200-62.5-25 mcg (Trelegy Ellipta) 1 inh inhalation DAILY guaifenesin ER (Mucus Relief ER) 1,200 mg PO BID levothyroxine 25 mcg PO DAILY@0600 loratadine 10 mg PO DAILY magnesium oxide 400 mg PO BIDPC multivitamin with folic acid 400 mcg (Daily-Stanley (with folic acid)) 1 tab PO DAILY pantoprazole 40 mg PO BID revefenacin (Yupelri) 175 mcg (3 mL) inhalation DAILY 30 days risperidone (Risperdal) 4 mg PO BID tamsulosin 0.4 mg PO BEDTIME valproic acid 1000mg orally daily; warfarin See Protocol 2 mg orally 4MG DAILY OR DIRECTED; 4MG DAILY OR DIRECTED Nursing Note INR: 2.0 in therapeutic range Medications and supplements reviewed No changes in diet, medications, or supplements, pt states he has been having increased sob - he has decreased smoking and has a chest CT 03/28/2025 ,has an appt with surgeon regarding his hernia this 02/[address] Lozano His lips and nail beds are pink able to speak full sentences - not appearing in distress. Has Chest CT 03/28/2025- enc if sob worsens to call PCP or go to ER Denies any signs and symptoms of bleeding or bruising or clotting. Bleeding, bruising, clotting discussed Nutritional guidance given Dose: keep same dose 2mg x 3 days/ 4mg x 4 days F/U INR: 3 weeks Patient verbalizes understanding of instructions given Anti-Coag Initial Assessment Social Hx Patient Tobacco Use Status: Refuse Tobacco use screen alcohol intake: never Coding Level of Care Code Est Patient Level 1 Diagnoses Current use of anticoagulant therapy Z79.01 Results AMB INR Fingerstick AMB INR Fingerstick 2.0 Last Edit by Raissa Hull RN on 03/06/25 11:14 manual entry Assessment & Plan Assessment & Plan (1) Current use of anticoagulant therapy: Code(s): Z79.01 - vermin exterminator (current) use of anticoagulants Category: Medical
== END 2025-03-06 14:47 | disposition home or self-care (01) ==
LOC: HO.ACS 10:56
PROVIDERS: PCP Internal Medicine; Visit Provider Internal Medicine Medical Oncology
DX: Z79.01 Long term (current) use of anticoagulants (principal)

== ENCOUNTER → 2025-03-06 10:56 | Outpatient (BNVA) | payer MEDICARE, MEDICAID, SELFPAY | PROVIDERS: PCP Internal Medicine; Visit Provider Internal Medicine Medical Oncology | DX: Z79.01 Long term (current) use of anticoagulants (principal) | CPT/HCPCS: 85610; 99211 ==

== ENCOUNTER 2025-03-08 10:50 | Outpatient (AMB) | payer MEDICARE, MEDICAID, SELFPAY ==
--- OUTSIDE RECORDS SUMMARY | 2025-03-08 09:00 | XMS_ITS | Encounter Summary ---
Author Organization [employer] Address [address] [facility] 7 [place] [address] Care Team Providers Care Animal Cruelty Investigation Supervisor Name Role Phone Bc Hunter MD Primary Care Prov ider Encounter Details Date Type Department Care Team (Latest Contact Info) Description 03/08/2025 9:00 AM EST Office Visit [facility] [address] [place], [place] [phone] Bc Hunter MD [address] [place] [address] Hyperlipemia, mixed (Primary Dx); Acquired hypothyroidism Social History Tobacco [...] Sign Reading Time Taken Comments Blood Pressure 113/64 03/08/2025 9:17 AM EST Pulse 96 03/08/2025 9:17 AM EST Temperature 36.9 C (98.4 F) 03/08/2025 9:17 AM EST Respiratory Rate 16 03/08/2025 9:17 AM EST Oxygen Saturation 99% 03/08/2025 9:17 AM EST Inhaled Oxygen Concentration - - Weight 75.3 kg (166 lb) 03/08/2025 9:17 AM EST Height 177.8 cm (5' 10 ) 03/08/2025 9:17 AM EST Body Mass Index 23.82 03/08/2025 9:17 AM EST documented in this encounter Plan of Treatment Scheduled Orders Name Type Priority Associated Diagnoses Orde r Schedule CBC auto differential Lab Routine Acquired hypothyroidism Expected: 03/08/2025 (Approximate), Expires: 03/08/2026 Comprehensive Metabolic Panel Lab Routine Acquired hypothyroidism Expected: 03/08/2025 (Approximate), Expires: 03/08/2026 Lipid Panel, Standard Lab Routine Acquired hypothyroidism Expected: 03/08/2025 (Approximate), Expires: 03/08/2026 TSH W/Reflex to FT4 Lab Routine Acquired hypothyroidism Expected: 03/08/2025 (Approximate), Expires: 03/08/2026 documented as of this encounter Visit Diagnoses Diagnosis Hyperlipemia, mixed- Primary Mixed hyperlipidemia Acquired hypothyroidism Unspecified hypothyroidism documented in this encounter Additional Health Concerns Assessment Noted Time PHQ-9 Depression Total Score: 0 01/09/20 25 11:39 AM EDT documented as of this encounter Care Teams Animal Cruelty Investigation Supervisor Relationship Specialty Start Date End Date Bc Hunter MD [address] [place] [phone] PCP - General Internal Medicine 01/03/19 documented as of this encounter
--- NOTE | 2025-03-08 10:51 | MHC.OFFVIS ---
Vital Signs 03/08/25 10:59 Height 6 ft Weight 176 lb 4 oz BMI 23.9 BP 102/54 L Blood Pressure Location Rt brachial Position Sitting Pulse 97 Intake Visit Reasons: discuss hernia surgery Intake Note: Patient presents to re-discuss hernia surgery. Pt c/o; no changes.Pt is here with caregiver but she is unable to confirm any new meds as she has not been working with patient for a long time. No other symptoms or complaints at this time. Therapeutic Strategy Lead Required: No Accompanied by: Caregiver Allergies No Known Allergies Allergy (Mild, Verified 03/08/25 11:00) NOT APPLICABLE Medication List - Last Reconciled 03/08/25 by Patrick Hope MD albuterol sulfate 90 mcg/actuation (Ventolin HFA) 1 puff inhalation RQ4H PRN amantadine HCl 100 mg PO BID atorvastatin 40 mg PO BEDTIME carbamide peroxide (Debrox) 5 DROPS EACH EAR EVERY 2 WEEKS cholecalciferol (vitamin D3) (Vitamin D3) 25 mcg PO QAM dicyclomine 20 mg PO BID divalproex ER 1,000 mg PO BEDTIME ferrous sulfate 325 mg PO QAM [FLUCINOLONE TOPICAL DAILY ] gtvzkpfjxur-tpcuxivna-ccmqejfu 200-62.5-25 mcg (Trelegy Ellipta) 1 inh inhalation DAILY guaifenesin ER (Mucus Relief ER) 1,200 mg PO BID levothyroxine 25 mcg PO DAILY@0600 loratadine 10 mg PO DAILY magnesium oxide 400 mg PO BIDPC multivitamin with folic acid 400 mcg (Daily-Stanley (with folic acid)) 1 tab PO DAILY pantoprazole 40 mg PO BID revefenacin (Yupelri) 175 mcg (3 mL) inhalation DAILY 30 days risperidone (Risperdal) 4 mg PO BID tamsulosin 0.4 mg PO BEDTIME valproic acid 1000mg orally daily; warfarin See Protocol 2 mg orally 4MG DAILY OR DIRECTED; 4MG DAILY OR DIRECTED HPI HPI discuss hernia surgery: Details: 74-year-old male who is known to me for a large chronically incarcerated right inguinal scrotal hernia. He says he is here today for ?opinion? with regards to his large hernia. He has does state he has had this since he was 21 years old. He says he never had surgery for this. He does admit that the large hernia feels ?heavy?. He denies GI complaints. He denies any signs of obstruction He is in a [place] [facility]. He has multiple medical problems. He is chronically short of breath with COPD. He also has schizophrenia, is an active smoker, has a lung nodule, and is on anticoagulation for atrial fibrillation. He is unsteady with ambulation and has poor baseline level of activity. [facility] Medical History Incarcerated right inguinal hernia Normocytic anemia Metabolic encephalopathy MSSA bacteremia History of atrial fibrillation COPD (chronic obstructive pulmonary disease) Hypothyroid Bipolar 1 disorder Surgical History History of heart surgery Social History Household Members: Other Household Members Other:: [facility] Housing: House Housing Other:: [facility] Do you presently have visiting nurse or other home services: Yes ([place] [facility]) Alcohol intake: never Comment: Close observation Patient Tobacco Use Status: Refuse Tobacco use screen Substance Use Type: Marijuana Advance Directives Date on File: 06/04/23 service: No Sexual orientation: Straight/Heterosexual Review of Systems Const Denies chills Card Denies chest pain, Reports dyspnea and Reports dyspnea on exertion Resp Denies cough, Reports dyspnea and Reports dyspnea on exertion GI Denies hematochezia and Denies change in bowel habits Denies hematuria and Denies difficulty urinating Musc Reports abnormal gait, Reports back pain, Reports arthralgias, Denies limited range of motion and Reports stiffness Neuro Details: Unsteady shuffling gait, Reports abnormal gait, Denies focal weakness and Denies convulsions Psych Denies depression and Denies mood swings Physical Exam Vital Signs: Last Vital Signs Pulse 97 03/08/25 10:59 BP 102/54 L 03/08/25 10:59 BMI result Body Mass Index 23.9 GI Other: Very large, chronically incarcerated, right inguinal scrotal hernia, nontender Assessment & Plan Assessment & Plan (1) Incarcerated right inguinal hernia: Code(s): K40.30 - Unilateral inguinal hernia, with obstruction, without gangrene, not specified as recurrent Category: Medical Plan: He has this large chronically incarcerated right inguinal scrotal hernia. He denies any new changes with regards to this. He has had this has he was the age of 21. I had a long discussion with him. I told him that repair of this hernia would be a difficult procedure for him as he has multiple medical problems. His current baseline level of health is poor. He is short of breath and he also continues to smoke. He presents with significant perioperative risks so I would not recommend proceeding with hernia repair at this time as this is chronic and has not changed. He seems to understand. He can see me in the office on a p.r.n. basis. Coding Level of Care Code Est Pt Level 3 (11126) Diagnoses Incarcerated right inguinal hernia K40.30
[2025-03-08 10:59] VITALS: BP 102/54; PULSE 97; BMI 23.9
--- OUTSIDE RECORDS SUMMARY | 2025-03-08 13:54 | XMS_ITS | Clinical Summary ---
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
--- OUTSIDE RECORDS SUMMARY | 2025-03-08 13:54 | XMS_ITS | Encounter Summary ---
Author Organization [facility] Address [address] [place] [address] Phone Care Team Providers Care Grinding Wheel Facer Name Role Phone Bc Yates Primary Care Provider [phone] Encounter Details Date Type Department Care Team (Late st Contact Info) Description 05/26/2021 Documentation Only [facility] [address] [place] [address] Trever Lopez MD [address] [place] [address] [place] [address] Social History Tobacco Use Types [...] Care Team (Late st Contact Info) Description 04/24/2025 2:30 PM EST Office Visit [facility] [address] [place] [address] Trever Lopez MD [address] [place] [address] [place] [address] documented as of this encounter Visit Diagnoses Not on filedocumented in this encounter Care Teams Grinding Wheel Facer Relationship Specialty Start Date End Date Bc Yates PCP - General Internal Medicine 10/05/22 documented as of this encounter
--- OUTSIDE RECORDS SUMMARY | 2025-03-08 13:54 | XMS_ITS | Clinical Summary ---
Author Organization [facility], Address [address] [place] [address] [place] [address] Phone Care Team Providers Care Valver Name Role Phone YatesBc Primary Care Provider Allergies No known active allergies Medications D3-50 1.25 MG (32250 UT) capsule TAKE 1 CAPSULE BY MOUTH [...] THE EVENING. 60 tablet 5 3 Active atorvastatin (LIPITOR) 40 MG tablet Take 40 mg by mouth 1 (one) time each day in the evening 5 Active risperiDONE (RisperDAL) 4 MG tablet Take 4 mg by mouth 5 Active pantoprazole (PROTONIX) 40 MG EC tablet TAKE 1 TABLET BY MOUTH TWICE A DAY IN THE MORNING AND IN THE EVENING 5 Active loratadine (CLARITIN) 10 MG tablet take 1 tablet (10 mg) by mouth once per day in the morning 5 Active divalproex (DEPAKOTE) 500 MG 24 hr tablet Take 1,000 mg by mouth every night 5 Active dicyclomine (BENTYL) 20 MG tablet TAKE 1 TABLET BY MOUTH TWICE A DAY BEFORE BREAKFAST AND EVENING MEAL 5 Active warfarin (COUMADIN) 2 MG tablet TAKE 1-2 TABLETS EVERY EVENING DIRECTED BY [facility]ADIN CLINIC 5 Active Active Problems Problem Noted Date Diagnosed [...] Visit [facility], [address] [place] [address] Trever Lopez MD [address] [facility] [place] [address] Health Maintenance Due Date Last [...] topic Insurance Medicare Medicaid [place] Care Teams Valver Relationship Specialty Start Date End Date Bc Yates PCP - General Internal Medicine 10/05/22
--- OUTSIDE RECORDS SUMMARY | 2025-03-08 13:54 | XMS_ITS | Encounter Summary ---
Author Organization [employer] Address [address] [facility] 7 [place] [address] Care Team Providers Care Director Advanced Name Role Phone Bc Hunter MD Primary Care Prov ider Encounter Details Date Type Department Care Team (Late st Contact Info) Description 09/20/2023 Orders Only [facility] [address] [place], [place] [phone] Bc Hunter MD [address] [place] [address] Social History Tobacco Use Types Packs/Day Years [...] as of this encounter Care Teams Director Advanced Relationship Specialty Start Date End Date Bc Hunter MD [address] [place] [phone] PCP - General Internal Medicine 01/03/19 documented as of this encounter
--- OUTSIDE RECORDS SUMMARY | 2025-03-08 13:54 | XMS_ITS | Encounter Summary ---
Author Organization [employer] Address 75 [facility] 7 [place] [address] Care Team Providers Care Marble Chip Terrazzo Worker Name Role Phone Bc Hunter MD Primary Care Prov ider Reason for Visit * Reason Onset Date Comments Med Refill 05/12/2022 Encounter Details Date Type Department Care Team ([facility] st Contact Info) Description 05/12/2022 Telephone [facility] [address] [place] [address] Bc Hunter MD [address] [place] [address] Med Refill Social History Tobacco Use Types [...] Date End Date Bc Hunter MD [address] [place] [phone] PCP - General Internal Medicine 01/03/19 documented as of this encounter
--- OUTSIDE RECORDS SUMMARY | 2025-03-08 13:54 | XMS_ITS | Encounter Summary ---
Author Organization [employer] Address [address] [facility] 7 [place] [address] Care Team Providers Care House Wrecker Name Role Phone Bc Hunter MD Primary Care Prov ider Reason for Visit * Reason Comments Med Refill Encounter Details Date Type Department Care Team ([facility] st Contact Info) Description 08/06/2024 Refill [facility] MED[facility] [address] [place] [address] Bc Hunter MD [address] [place], [place] [phone] Social History Tobacco Use Types Packs/Day Years [...] documented as of this encounter Care Teams House Wrecker Relationship Specialty Start Date End Date Bc Hunter MD [address] [place] [phone] PCP - General Internal Medicine 01/03/19 documented as of this encounter
--- OUTSIDE RECORDS SUMMARY | 2025-03-08 13:54 | XMS_ITS | Encounter Summary ---
Author Organization [employer] Address [address] [facility] 7t [place] [address] Care Team Providers Care Punch Press Operator Name Role Phone Bc Hunter MD Primary Care Prov ider Reason for Visit * Reason Comments Med Change Request Encounter Details Date Type Department Care Team ([facility] Contact Info) Description 07/19/2023 Refill [facility] [address] [place] [address] Oralia Mazariegos FNP [address] [place] [address] Social History Tobacco Use Types Packs/Day Years [...] documented as of this encounter Care Teams Punch Press Operator Relationship Specialty Start Date End Date Bc Hunter MD [address] [place] [phone] PCP - General Internal Medicine 01/03/19 documented as of this encounter
--- OUTSIDE RECORDS SUMMARY | 2025-03-08 13:54 | XMS_ITS | Encounter Summary ---
Author Organization [employer] Address [address] [facility] 7 [place] [address] Care Team Providers Care Placement Secretary Name Role Phone Bc Hunter MD Primary Care Prov ider Reason for Visit * Reason Onset Date Comments Call Back Request 11/15/2024 Encounter Details Date Type Department Care Team ([facility] Contact Info) Description 11/15/2024 Telephone [facility] [address] [place] [address] Bc Hunter MD [address] [place] [address] Call Back Request Social History Tobacco Use [...] - 11/15/2024 12:04 PM EDT TC to [place] with [facility]. Stated needs clarification to have claritin scheduled, have atorvastatin scheduled for HS and have FeSulfate scheduled for PM. Advised will fax over telephone order form and have pcp update order to [facility]. Fax sent to [facility] with confirmation. * Telephone Encounter - Jenn Krishnamurthy - 11/15/2024 11:06 AM EDT Tc from Olga Cage at [facility] requesting a call back to discuss medication labels Contact Olga at [phone] documented in this encounter Plan of Treatment [...] documented as of this encounter Care Teams Placement Secretary Relationship Specialty Start Date End Date Bc Hunter MD [address] [place] [address] PCP - General Internal Medicine 01/03/19 documented as of this encounter
--- OUTSIDE RECORDS SUMMARY | 2025-03-08 13:54 | XMS_ITS | Encounter Summary ---
Author Organization [employer] Address [address] 7[address] [place] [address] Care Team Providers Care Back Shoe Worker Name Role Phone Bc Hunter MD Primary Care Prov ider Encounter Details Date Type Department Care Team ([facility] st Contact Info) Description 02/27/2025 Results Follow-Up [facility] MED & PEDS [address] [place], [place] [phone] Kristy Waldrop RN ~PT, ~INR - ANTI [...] documented as of this encounter Care Teams Back Shoe Worker Relationship Specialty Start Date End Date Bc Hunter MD [address] [place] [id number] PCP - General Internal Medicine 01/03/19 documented as of this encounter
--- OUTSIDE RECORDS SUMMARY | 2025-03-08 13:54 | XMS_ITS | Encounter Summary ---
Author Organization [employer] Address [address] [facility] 7 [place] [address] Care Team Providers Care Border Guard Name Role Phone Bc Hunter MD Primary Care Prov ider Reason for Visit * Reason Onset Date Comments Nurse Triage 05/26/2023 Encounter Details Date Type Department Care Team ([facility] st Contact Info) Description 05/26/2023 Telephone [facility] [address] [place] [address] Bc Hunter MD [address] [place], [place] [phone] Nurse Triage Social History Tobacco Use Types [...] AM EST Triage call Pt is in fdc, Krystin Sepulveda taking call and consent is signed by Pt for staff to speak . Pt has had some changes. Pt decided to stop all psyche medications and MD Ward Myers,discontinued them. (Stop date unknown) Pt has since that time decreased eating, appetite is poor. Pt weight yesterday at instrumentation manager apt is 173lbs. Pt was said to be around 202lbs regularly. Pt clothes are fitting very loosely now. Pt also wanted to stop coumadin but, instrumentation manager instructed that wouldn't be good to do [...] acuity questions The caller accepted this outcome [phone] documented in this encounter Plan of Treatment Not on file documented as of this encounter Visit Diagnoses Not on filedocumented in this encounter Additional Health Concerns Assessment Noted Time PHQ-9 Depression Total Score: 0 07/11/19 23 11:26 AM EDT documented as of this encounter Care Teams Border Guard Relationship Specialty Start Date End Date Bc Hunter MD [address] [place] [phone] PCP - General Internal Medicine 01/03/19 documented as of this encounter
--- OUTSIDE RECORDS SUMMARY | 2025-03-08 13:54 | XMS_ITS | Encounter Summary ---
Author Organization [facility] Address [address] [place] [address] Phone Care Team Providers Care Epidemiology Investigator Name Role Phone Bc Yates Primary Care Provider [phone]- [phone] Reason for Visit * Reason Comments Med Refill Encounter Details Date Type Department Care Team (Late st Contact Info) Description 01/13/2022 Refill [facility] [address] [place] [address] Trever Lopez MD [address] [facility] [place] [address] Social History Tobacco Use Types [...] Visit [facility] [address] [place] [address] Trever Lopez MD [address] [facility] [place] [address] documented as of this encounter Visit Diagnoses Not on filedocumented in this encounter Care Teams Epidemiology Investigator Relationship Specialty Start Date End Date Bc Yates PCP - General Internal Medicine 10/05/22 documented as of this encounter
--- OUTSIDE RECORDS SUMMARY | 2025-03-08 13:55 | XMS_ITS | Clinical Summary ---
Author Organization [facility] Address [address] [place] [address] 7t [place] [address] Care Team Providers Care Water Restoration Technician Name Role Phone Bc Hunter MD [...] by mouth 2 times daily. 020 Active Acetaminophen Extra Strength 500 MG tablet [...] EVERY DAY WITH FOOD 90 tablet 3 07/15/2 025 Active warfarin (Coumadin) 2 MG tabletIndications :S/P aortic valve replacement TAKE 1-2 TABLETS EVERY EVENING DIRECTED BY COUMADIN CLINIC 180 tablet 1 Active Ventolin HFA 108 (90 Base) MCG/ACT inhaler INHALE 2 PUFFS EVERY 4 HOURS NEEDED 18 g 3 Active guaiFENesin (Mucinex) 600 MG 12 hr [...] BEFORE EVENING MEAL. 180 tablet 1 Active ferrous sulfate 325 (65 [...] (90 Base) MCG/ACT inhalerIndication s:COPD exacerbation (CMS/HCC) ([facility]) Inhale 2 puffs every 6 (six) hours if needed for wheezing. 8.5 g 025 Active levothyroxine (Synthroid, Levoxyl) 25 MCG tablet TAKE 1 TABLET (25 MCG) BY MOUTH IN THE MORNING 90 tablet 3 024 2024 Discontinued atorvastatin (Lipitor) 40 MG tabletIndications :Mixed hyperlipidemia 1 tab at 8 PM 90 tablet 1 025 2024 Discontinued Active Problems Problem Noted Date Diagnosed Date Psychoactive substance abuse 10/02/2024 Cigarette nicotine dependence without complicati on 06/19/2024 Nodule of left lung 04/26/2024 Assessment & Plan (01/08/2025 12:41 PM EDT): Told to follow up with sock and stocking ironer, previously refused undergoing biopsy Assessment & Plan (10/02/2024 1:15 PM EDT): Patient does not want to undergo biopsy, will follow up pneumology reccomendations Assessment & Plan (04/26/2024 11:54 AM EST): Will order a follow up LDCT scan, shed hand was told to contact pulmonology office Seborrheic dermatitis of scalp 01/26/2023 Assessment & Plan (07/20/2023 8:52 PM EDT): Followed by [facility] Derm clinic Refill of topical ketoconazole and [...] valve replacement 04/28/2022 Overview (07/20/2023): Followed by [facility] [place] [place] Coumadin Clinic Assessment & Plan (07/20/2023 8:46 PM EDT): Cardiology consult scheduled 07/20/23 No reported hx of bleeding, no reported chest pain/shortness of breath Discussed with PCP and [facility] [place] [place] Coumadin Clinic (Lori FLETCHER). Plan to bridge pt from Eliquis to Coumadin. May DC Eliquis once Coumadin therapeutic Coumadin dosinmg on Wednesday and Wednesday 4mg all other days of the week Plan: [facility] [place] [place] Coagulation clinic to reach out to half-way to schedule INR check and re-start on [...] nodules palpated Mild chronic obstructive pulmonary disease ([facility]) 09/22/2011 Assessment & Plan (01/08/2025 12:41 PM EDT): Symptoms resolved, smoking cessation discussed, follow up with sock and stocking ironer Other schizophrenia 09/22/2011 Overview (07/20/2023): Living in Jail Assessment & Plan (10/02/2024 1:14 PM EDT): [...] Encounters Date Type Department Care Team Description 03/08/2025 9:00 AM EST Office Visit [facility] MED & PEDS [address] [place] [address] Bc Hunter MD Hyperlipemia, mixed (Primary Dx); Acquired hypothyroidism 03/08/2025 Travel 03/06/2025 Orders Only GENERIC EXTERNAL DATA DEPARTMENT Provider, Generic External Data 03/01/2025 Patient Outreach [facility] MED & [facility]EDS [address] [place] [address] Bc Hunter MD Pre-visit Planning (SDOH was already completed) 02/27/2025 Results Follow-Up [facility] [address] [place] [address] Kristy Waldrop RN ~PT, ~INR - ANTI COAG CLINIC, PROTHROMBIN TIME WHOLE BLD POC 02/26/2025 Orders Only [facility] External Provider, [facility] 02/13/2025 Orders Only GENERIC EXTERNAL DATA DEPARTMENT Provider, Generic External Data 02/05/2025 Orders Only GENERIC EXTERNAL DATA DEPARTMENT Provider, Generic External Data 02/01/2025 Refill [facility] [address] [place] [address] Bc Hunter MD COPD exacerbation ([facility]) ([facility]) 01/25/2025 Orders Only GENERIC EXTERNAL DATA DEPARTMENT Provider, Generic External Data 01/25/2025 Travel 01/25/2025 Telephone [facility] MEDICINE [address] [place] [address] Bc Hunter MD Nurse Triage 01/16/2025 Orders Only GENERIC EXTERNAL DATA DEPARTMENT Provider, Generic External Data 01/15/2025 Refill [facility] [address] [place] [address] Bc Hunter MD 01/08/2025 11:15 AM EDT Office Visit [facility]ED[facility] [address] [place] [address] Bc Hunter MD Hyperlipemia, mixed (Primary Dx); Other iron deficiency anemia; Acquired hypothyroidism; Mild chronic obstructive pulmonary disease ([facility]) ([facility]); Nodule of left lung 01/08/2025 Travel 01/04/2025 Telephone [facility] MED [facility] PED[facility] [address] [place] [address] Bc Hunter MD chart prep 01/02/2025 Orders Only GENERIC EXTERNAL DATA DEPARTMENT Provider, Generic External Data 12/29/2024 Telephone [facility] PEDIATRICS [address] [place] [address] Bc Hunter MD INR LEVEL 12/29/2024 Orders [...] Mass Index 23.82 03/08/2025 9:17 AM EST Plan of Treatment Health Maintenance [...] COAG CLINIC Routine 12/29/2024 10:47 AM EDT LIPID PANEL, STANDARD Routine 05/06/2023 11:48 AM EST Hyperlipemia, mixed HEPATITIS C AB W/REFL TO HCV RNA, QN, PCR Routine 07/10/2022 11:31 AM EDT S/P aortic valve replacement Pre-op evaluation from Last 3 Months or Most Recently Relevant to Health Maintenance Results * (ABNORMAL) PROTHROMBIN TIME WHOLE BLD POC (03/06/2025 11:06 AM EST) Only the most recent of6 resultswithin the time period is included. Protime 23.9(H) 11.1 - 13.5 sec [facility] 03/06/2025 11:0 6 AM EST 03/06/2025 11:09 AM EST us Generic External Data Provider LAB BLOOD ORDERAB LES Final Result Performing Organization Address City/State/[facility] Co de Phone Number [facility] [address] [place] [phone] * (ABNORMAL) ~PT, ~INR - ANTI COAG CLINIC (03/06/2025 11:06 AM EST) Only the most recent of6 resultswithin the time period is included. Prothrombin Time INR 2.0(H) 0.9 - 1.1 [facility] Comment:METER #: [id number] TERNATIONAL NORMALIZED RATIO (INR) REFERENCE RANGES Reference [...] [facility] Co de Phone Number [facility] [address] [place] [phone] * NM heart perfusion SPECT stress and rest (02/26/2025 10:12 AM EST) Anatomical Region Laterality Modality Body Nuclear Medicine 02/26/2025 10:1 2 AM EST Narrative 03/01/2025 4:08 PM EST [address] [address] Nuclear Medicine Report Signed Patient: Chris Zraagoza MR#: [id number] : 1950 Acct:[id number] Age/Sex: 74 / M ADM Date: 02/26/25 Loc: [facility] Attending Dr: Brittany KOTHARI Ordering Physician: BRITTANY MERCEDES Date of Service: 02/26/25 Procedure(s): NM ken perf SPECT rest str Accession Number(s): [id number] cc: Bc Hunter MD; BRITTANY MERCEDES Reason [...] by: Fuentes Coreas MD 03/01/2025 04:06 PM [facility] Dictated By: Fuentes Coreas MD Signed By: <Electronically signed by Fuentes Coreas MD in OV> 03/01/25 1606 DD/ 1012 TD/TT: 02/28/25 1225 Bleacher Lard: Procedure Note Donotuseinterpreter, Image - 03/01/[address] [address] Nuclear Medicine Report Signed Patient: Amos Zaragoza#: [id number] : 3Acct:[id number] Age/Sex: 74 / MADM Date: 02/26/25 Loc: .[facility] Attending Dr: Brittany KOTHARI Ordering Physician: BRITTANY MERCEDES Date of Service: 02/26/25 Procedure(s): NM ken perf SPECT rest str Accession Number(s): [id number] cc: Bc Hunter MD; BRITTANY MERCEDES Reason [...] 03/01/25 1606 DD/ 1012 TD/TT: 02/28/25 1225 Bleacher Lard: [facility] External Provider IMG NM PROCEDURES Edited Result - Final * SARS-CoV-2 RNA, Influenza A/B, and RSV RNA, Ql NAAT (01/25/2025 3:42 PM EST) Influenza A PCR NEGATIVE Negative [facility] Influenza B PCR NEGATIVE Negative [facility] Resp Syncy Virus RNA Qual PCR NEGATIVE Negative [facility] SARS COV2 PCR NEGATIVE Negative [facility] Comment:All test results mus t be [...] use by authorized laboratories.Testing performed on the [employer] GeneXpert utilizingreal-time RT-PCR.All SARS CoV2 and positive influenza A/B results arereported to [facility]. 01/25/2025 3:4 2 PM EST 01/25/2025 3:52 PM EST Generic External Data Provider LAB MICROBIOLOGY - GENERAL ORDERABLES Final Result [facility] [address] [place] [phone] * CT Head w/o Contrast (01/25/2025 1:21 PM EST) Anatomical Region Laterality Modality Head, Neck Computed Tomogra phy 01/25/2025 1:21 PM EST Narrative 01/25/2025 1:54 PM EST [address] [address] [address] Scan Report Signed Patient: Chris Zaragoza MR#: [id number] : 1950 Acct:[id number] Age/Sex: 74 / M ADM Date: 01/25/25 Loc: [facility].ED Attending Dr: Ordering Physician: Henrietta Ricks DO Date of Service: 01/25/25 Procedure(s): CT head/brain wo IV con Accession Number(s): [id number] cc: Bc Hunter MD; Henrietta Ricks DO Report Number: [id number]: Total DLP = 731.00 mGy-cm Reason for [...] 01/25/25 1351 DD/ 1321 TD/TT: 01/25/25 1337 Bleacher Lard: KIN Procedure Note Donotuseinterpreter, Image - 01/25/[address] [address] [address] Scan Report Signed Patient: Amos Zaragoza#: [id number] : 1950cct:[id number] Age/Sex: 74 / MADM Date: 01/25/25 Loc: [facility].ED Attending Dr: Ordering Physician: Henrietta Ricks DO Date of Service: 01/25/25 Procedure(s): CT head/brain wo IV con Accession Number(s): [id number] cc: Bc Hunter MD; Henrietta Ricks DO Report Number: [id number]: Total DLP = 731.00 mGy-cm Reason for [...] 01/25/25 1351 DD/ 1321 TD/TT: 01/25/25 1337 Bleacher Lard: KIN [facility] External Provider IMG CT PROCEDURES Final Result * (ABNORMAL) Prothrombin Time-INR (01/25/2025 12:13 PM EST) Pathologist [facility] Prothrombin Time 21.6(H) 11.2 - 13.5 SEC [facility] INTERNATIONAL NORM RATIO 1.8(H) 0.9 - 1.1 [facility] Comment:INTERNATIONAL NORMAL IZED RATIO (INR) [...] Provider LAB BLOOD ORDERAB LES Final Result [facility] [address] [place] [phone] * (ABNORMAL) CBC auto differential (01/25/2025 11:24 AM EST) Pathologist [facility] White Blood Count 6.2 4.8 - 10.8 X10*3/uL [facility] Red Blood Count 3.85(L) 4.60 - 5.80 X10*6/uL [facility] Hemoglobin 11.5(L) 14.0 - 18.0 g/dl [facility] Hematocrit 35.2(L) 42.0 - 52.0 % [facility] Mean Corpuscular Volume 91.4 80.0 - 98.0 fL [facility] Mean Corpuscular Hemoglobin 29.9 27.0 - 33.0 pg [facility] Mean Corpuscular HGB Conc 32.7 31.0 - 36.0 g/dl [facility] Red Cell Distribution Width 15.6 11.0 - 16.0 % [facility] Platelet Count 282 160 - 400 X10*3/uL [facility] Mean Platelet Volume 10.0 9.4 - 12.4 fL [facility] Neutrophils Percent Auto 79.8(H) 45 - 73 % [facility] Imm Gran Pct Auto 0.3 0.0 - 0.4 % [facility] Lymphocytes Percent Auto 10.2(L) 20 - 40 % [facility] Monocytes Percent Auto 8.1 2 - 11 % [facility] Eosinophils Percent Auto 1.1 0 - 4 % [facility] Basophils Percent Auto 0.5 0 - 2 % [facility] NRBC Pct Auto 0.0 0.0 - 0.2 /100WBC [facility] Neutrophils Absolute Auto 4.9 2.0 - 8.3 x10*3/uL [facility] Imm Gran Abs Auto 0.02 0.00 - 0.03 X10*3/uL [facility] Lymphocytes Absolute Auto 0.6(L) 1.2 - 4.9 X10*3/uL [facility] Monocytes Absolute Auto 0.5 0.1 - 1.2 X10*3/uL [facility] Eosinophils Absolute Auto 0.1 0.0 - 0.4 X10*3/uL [facility] Basophils Absolute Auto 0.0 0.0 - 0.2 X10*3/uL [facility] NRBC Abs Auto 0.000 0.0 - 0.012 X10*3/uL [facility] 01/25/2025 11:2 4 AM EST 01/25/2025 11:27 AM EST us Generic External Data Provider LAB BLOOD ORDERAB LES Final Result [facility] [address] [place] [address] [phone] * (ABNORMAL) Comprehensive Metabolic Panel (01/25/2025 11:24 AM EST) Sodium 135 135 - 145 mmol/L [facility] Potassium 4.6 3.3 - 5.1 mmol/L [facility] Comment:Slight Hemolysis.Int erpret result with caution. Chloride 100 96 - 108 mmol/L [facility] Carbon Dioxide 27 22 - 29 mmol/L [facility] Anion Gap 13 12 - 20 [facility] Urea Nitrogen (BUN) 27(H) 9 - 16 mg/dL [facility] Creatinine, Serum 1.50(H) 0.5 - 1.4 mg/dL [facility] Creatinine Clr Calc Pharmacy 48.8 [facility] Comment:eGFR (calculated fro m the MDRD study equation) and eCrCl(calculated from the Cockcroft-Gault equation) are based ondifferent parameters and may not yield comparable results.If eCrCl result is absurd, please check patient'sheight/weight. Estimated Glomerular Filt Rate 46 [facility] Comment:Chronic Kidney Disea se: Estimated GFR < 60 mL/min/[id number] Kidney Disease: Estimated GFR < 15 mL/min/1.73m2 Glucose 121(H) 60 - 115 mg/dL [facility] Calcium 8.9 8.4 - 10.2 mg/dL [facility] Bilirubin, Total 0.5 0.0 - 1.0 mg/dL [facility] Aspartate Amino Transferase 32 5 - 37 U/L [facility] Comment:Slight Hemolysis.Int erpret result with caution. Alanine Aminotransferase 14 0 - 40 U/L [facility] Total Protein 6.8 6.5 - 8.0 g/dL [facility] Albumin Level 3.6 3.5 - 5.0 g/dL [facility] Alkaline Phosphatase 142(H) 39 - 117 U/L [facility] 01/25/2025 11:2 4 AM EST 01/25/2025 11:27 AM EST us Generic External Data Provider LAB BLOOD ORDERAB LES Final Result Performing Organization Address City/[facility]/ZIP Co de Phone Number [facility] [address] [place] [phone] * Lipid Panel, Standard (05/06/2023 11:48 AM EST) Triglycerides 61 <150 mg/dL [facility] Comment:Desirable Triglyceri de: less than 150 mg/dLBorderline High Triglyceride 150-199 mg/dLHigh Triglyceride: 200-499 mg/dLVery High Triglyceride: greater than or equal to 5OO mg/dL Cholesterol 166 <200 mg/dL [facility] Comment:Desirable Cholestero l: less than 200 mg/dLBorderline High Cholesterol: 200-239 mg/dLHigh Cholesterol: greater than 239 mg/dL LDL Cholesterol Calculated 94 <100 mg/dL [facility] Comment:Desirable LDL: less than 100 mg/dLNear Optimal/Above Optimal LDL: 110- 129 mg/dLBorderline High LDL: 130-159 mg/dLHigh LDL: 160-189 mg/dLVery High LDL: greater than or equal to 190 mg/dL HDL Cholesterol 60 >40 mg/dL [facility] Comment:Desirable HDL: great er than 40 mg/dL Note: This HDL assay may give artificially low results in patients with liver disease. Blood Venous blood specimen / Unknown 05/06/2023 11:48 AM EST 05/06/2023 2:09 PM EST us Bc Rascon MD LAB BLOOD ORDERABL ES Final Result Performing Organization Address City/[facility]/ZIP Co de Phone Number [facility] [address] [place] [phone] * Hepatitis C Antibody with Reflex to HCV, RNA, Quantitative, Real-Time PCR (07/10/2022 11:31 AM EDT) Hepatitis C Antibody NON-REACT DEZ NON-REACT DEZ [facility] [employer] [facility] Index 0.09 <1.00 [facility] [employer] [facility] Comment: HCV antibody was non-reactive. There is no laboratory evidence of HCV infection. In most cases, no further action is required. However, if recent HCV exposure is suspected, a test for HCV RNA (test code 27563) is suggested. For additional information please refer to http://education.[employer]/faq/TSZ71b6 (This link is being provided for informational/ educational purposes only.) Blood Venous blood specimen / Unknown 07/10/2022 11:31 AM EDT 07/10/2022 11:32 AM EDT Narrative [facility] - 07/11/2022 5:06 AM EDT FASTING:NO FASTING: NO Bc Rascon MD LAB BLOOD ORDERABL ES Final Result [facility] [address], [place] [address] [facility] [place] [employer] [address] [place] [phone] from Last 3 Months or Most Recently Relevant to Health Maintenance Insurance MEDICARE [facility] STANDARD Care Teams Water Restoration Technician Relationship Specialty Start Date End Date Bc Hunter MD [address] [place] [address] PCP - General Internal Medicine 01/03/19
--- OUTSIDE RECORDS SUMMARY | 2025-03-08 13:55 | XMS_ITS | Encounter Summary ---
Author Organization [employer] Address [address] [facility] 7 [place] [address] Care Team Providers Care Development Technician Name Role Phone Bc Hunter MD Primary Care Prov ider Reason for Visit * Reason Onset Date Comments Referral 12/06/2023 Encounter Details Date Type Department Care Team ([facility] st Contact Info) Description 12/06/2023 Telephone [facility] MEDICINE [address] [place] [address] Bc Hunter MD [address] [place], [place] [phone] Referral Social History Tobacco Use Types Packs/Day [...] 12/06/2023 9:45 AM EDT Tc from patients skilled nursing calling to report the provider for podiatry has and would need to be referred to another location would like to be seen by Sarkis in the [place] location ifpossible documented in this encounter Plan of Treatment Not on file documented as of this encounter Visit Diagnoses Not on filedocumented in this encounter Additional Health Concerns Assessment Noted Time PHQ-9 Depression Total Score: 0 09/30/19 24 11:02 AM EDT documented as of this encounter Care Teams Development Technician Relationship Specialty Start Date End Date Bc Hunter MD [address] [place] [address] PCP - General Internal Medicine 01/03/19 documented as of this encounter
--- OUTSIDE RECORDS SUMMARY | 2025-03-08 13:55 | XMS_ITS | Encounter Summary ---
Author Organization [employer] Address [address] [facility] 7 [place] [address] Care Team Providers Care Director Financial Services Name Role Phone Bc Hunter MD Primary Care Prov ider Reason for Visit * Reason Onset Date Comments Call Back Request 07/05/2024 Encounter Details Date Type Department Care Team ([facility] st Contact Info) Description 07/05/2024 Telephone [facility] MED[facility]INE [address] [place] [address] Bc Hunter MD [address] [place], [place] [phone] Call Back Request Social History Tobacco Use Types Packs/Day Years Used Date Smoking Tobacco: Every Day Cigarettes Depression Answer Date Recorded Patient Health Questionnaire-9 Score 0 09/30/2023 Patient Health Questionnaire-9 Score 0 09/30/2023 Last PHQ-9: Questionnaire Data Not on file 0 09/30/2023 Housing Stability Answer Date Recorded What is your housing situation today? I have neto fernadnez 07/19/[address] you li [...] 12:18 PM EDT Tc from Kimberly with [facility] requesting a call back regarding the pt Lovenox. Contact Kimberly at [phone] documented in this encounter Plan of Treatment Not on file documented as of this encounter Visit Diagnoses Not on filedocumented in this encounter Additional Health Concerns Assessment Noted Time PHQ-9 Depression Total Score: 0 09/30/19 24 11:02 AM EDT documented as of this encounter Care Teams Director Financial Services Relationship Specialty Start Date End Date Bc Hunter MD [address] [place] [phone] PCP - General Internal Medicine 01/03/19 documented as of this encounter
--- OUTSIDE RECORDS SUMMARY | 2025-03-08 13:55 | XMS_ITS | Encounter Summary ---
Author Organization [employer] Address [address] [facility] 7 [place] [address] Care Team Providers Care Learning Strategist Name Role Phone Bc Hunter MD Primary Care Prov ider Reason for Visit * Reason Comments Med Refill Encounter Details Date Type Department Care Team ([facility] st Contact Info) Description 05/18/2023 Refill [facility]EDS [address] [place] [address] Bc Hunter MD [address] [place] [address] Social History Tobacco Use Types Packs/Day Years [...] as of this encounter Care Teams Learning Strategist Relationship Specialty Start Date End Date Bc Hunter MD [address] [place] [phone] PCP - General Internal Medicine 01/03/19 documented as of this encounter
--- OUTSIDE RECORDS SUMMARY | 2025-03-08 13:55 | XMS_ITS | Encounter Summary ---
Author Organization [employer] Address [address] [facility] [address] [place] [address] Care Team Providers Care Oracle Applications Analyst Name Role Phone Bc Hunter MD Primary Care Prov ider Encounter Details Date Type Department Care Team (Latest Contact Info) Description 03/08/2025 Travel Social History Tobacco Use Types Packs/Day [...] documented as of this encounter Care Teams [employer] Applications Analyst Relationship Specialty Start Date End Date Bc Hunter MD [address] [place] [phone] PCP - General Internal Medicine 01/03/19 documented as of this encounter
--- OUTSIDE RECORDS SUMMARY | 2025-03-08 13:55 | XMS_ITS | Encounter Summary ---
Author Organization [employer] Address [address] [facility] 7 [place] [address] Care Team Providers Care Aquaculture Farm Manager Name Role Phone Bc Hunter MD Primary Care Prov ider Encounter Details Date Type Department Care Team (Late st Contact Info) Description 05/18/2022 Orders Only [facility]S [address] [place], [place] [phone] Bc Hunter MD [address] [place], [place] [phone] S/P aortic valve replacement Social History Tobacco [...] means documented in this encounter Care Teams Aquaculture Farm Manager Relationship Specialty Start Date End Date Bc Hunter MD [address] [place], [place] [phone] PCP - General Internal Medicine 01/03/19 documented as of this encounter
--- OUTSIDE RECORDS SUMMARY | 2025-03-08 13:55 | XMS_ITS | Encounter Summary ---
Author Organization [employer] Address [address] [facility] 7 [place] [address] Care Team Providers Care Hook Puller Name Role Phone Bc Hunter MD Primary Care Prov ider Reason for Visit * Reason Onset Date Comments Medication Question 08/29/2024 Encounter Details Date Type Department Care Team ([facility] Contact Info) Description 08/29/2024 Telephone [facility] MEDICINE [address] [place] [address] Bc Hunter MD [address] [place], [place] [phone] Medication Question Social History Tobacco Use Types [...] - 08/29/2024 1:29 PM EDT Tc from [place] staff with fdc reports Doctors orders and script pharmacy has do not match .Please contact [facility] for medication reconciliation. documented in this encounter Plan of Treatment Not on file documented as of this encounter Visit Diagnoses Not on filedocumented in this encounter Additional Health Concerns Assessment Noted Time PHQ-9 Depression Total Score: 0 09/30/19 24 11:02 AM EDT documented as of this encounter Care Teams Hook Puller Relationship Specialty Start Date End Date Bc Hunter MD [address] [place] [id number] PCP - General Internal Medicine 01/03/19 documented as of this encounter
--- OUTSIDE RECORDS SUMMARY | 2025-03-08 13:55 | XMS_ITS | Encounter Summary ---
Author Organization [employer] Address [address] [facility] 7t [place] [address] Care Team Providers Care Front Counter Attendant Name Role Phone Bc Hunter MD Primary Care Prov ider Encounter Details Date Type Department Care Team ([facility] st Contact Info) Description 03/06/2025 Orders Only [...] EST) Protime 23.9(H) 11.1 - 13.5 sec [facility] 03/06/2025 11:0 6 AM EST 03/06/2025 11:09 AM EST us Generic External Data Provider LAB BLOOD ORDERAB LES Final Result Performing Organization Address City/State/[facility] Co de Phone Number [facility] [address] [place] [phone] * (ABNORMAL) ~PT, ~INR - ANTI COAG CLINIC (03/06/2025 11:06 AM EST) Prothrombin Time INR 2.0(H) 0.9 - 1.1 [facility] Comment:METER #: [id number] TERNATIONAL NORMALIZED RATIO (INR) REFERENCE RANGES Reference [...] LAB BLOOD ORDERAB LES Final Result [facility] [address] [place] [phone] [phone] documented in this encounter Visit Diagnoses Not on filedocumented in this encounter Additional Health Concerns Assessment Noted Time PHQ-9 Depression Total Score: 0 01/09/20 11:39 AM EDT documented as of this encounter Care Teams Front Counter Attendant Relationship Specialty Start Date End Date Bc Hunter MD [address] [place] [phone] PCP - General Internal Medicine 01/03/19 documented as of this encounter
--- OUTSIDE RECORDS SUMMARY | 2025-03-08 13:55 | XMS_ITS | Encounter Summary ---
Author Organization [employer] Address [address] [facility] 7 [place] [address] Care Team Providers Care Database Programmer Analyst Name Role Phone Bc Hunter MD Primary Care Prov ider Reason for Visit * Reason Onset Date Comments Med Refill 05/15/2022 Encounter Details Date Type Department Care Team ([facility] st Contact Info) Description 05/15/2022 Telephone [facility] MED & PEDS [address] [place] [address] Bc Hunter MD [address] [place] [address] Med Refill Social History Tobacco Use Types [...] If any question please contact amy at [phone] documented in this encounter Plan of Treatment Not on file documented as of this encounter Visit Diagnoses Not on filedocumented in this encounter Care Teams Database Programmer Analyst Relationship Specialty Start Date End Date Bc Hunter MD [address] [place] [phone] PCP - General Internal Medicine 01/03/19 documented as of this encounter
--- OUTSIDE RECORDS SUMMARY | 2025-03-08 13:55 | XMS_ITS | Encounter Summary ---
Author Organization [employer] Address [address] [place] [address] [place] [address] Care Team Providers Care Airfreight Operations Agent Name Role Phone Bc Hunter MD Primary Care Prov ider Reason for Visit * Reason Onset Date Comments Med Refill 09/21/2022 Encounter Details Date Type Department Care Team ([facility] st Contact Info) Description 09/21/2022 Telephone [facility] CHC MED & PEDS [address] [place] [address] Bc Hunter MD [address] [place] [address] Med Refill Social History Tobacco Use Types [...] 09/23/2022 8:28 AM EDT Pt managed by [facility] coumadin clinic. Last INR of 3.1 noted 09/17/22. Will forward request for Rx to covering provider to review. * Telephone Encounter - Ping Nettles - 09/21/2022 10:39 AM EDT Tc from pt requesting med refill on Warfarin 1 mg tablet [facility]/pharmacy #[id number] - [place], [place] - [address] [place] [address] Please sent to documented in this encounter Plan of Treatment Not on file documented as of this encounter Visit Diagnoses Diagnosis History of Coumadin therapy- Primary S/P aortic valve replacement Heart valve replaced by other means documented in this encounter Additional Health Concerns Assessment Noted Time PHQ-9 Depression Total Score: 0 07/11/19 23 11:26 AM EDT documented as of this encounter Care Teams Airfreight Operations Agent Relationship Specialty Start Date End Date Bc Hunter MD [address] [place] [address] PCP - General Internal Medicine 01/03/19 documented as of this encounter
--- OUTSIDE RECORDS SUMMARY | 2025-03-08 13:55 | XMS_ITS | Encounter Summary ---
Author Organization [employer] Address [address] [place] [address] [place] [address] Care Team Providers Care Nursing Home Physician Name Role Phone Bc Hunter MD Primary Care Prov ider Reason for Visit * Reason Comments Med Refill Encounter Details Date Type Department Care Team ([facility] st Contact Info) Description 10/25/2022 Refill [facility] CHC MED & PEDS [address] [place], [place] [phone] Bc Hunter MD [address] [place], [place] [phone] Social History Tobacco Use Types Packs/Day Years [...] documented as of this encounter Care Teams Nursing Home Physician Relationship Specialty Start Date End Date Bc Hunter MD [address] [place], [place] [phone] PCP - General Internal Medicine 10/15/19 documented as of this encounter
--- OUTSIDE RECORDS SUMMARY | 2025-03-08 13:55 | XMS_ITS | Encounter Summary ---
Author Organization [employer] Address [address] [facility] 7 [place] [address] Care Team Providers Care Online Merchandising Manager Name Role Phone Bc Hunter MD Primary Care Prov ider Encounter Details Date Type Department Care Team (Late st Contact Info) Description 02/24/2022 Telephone [facility] MEDICINE [address] [place], [place] [phone] Bc Hunter MD [address] [place], [place] [phone] Social History Tobacco Use Types Packs/Day Years [...] on filedocumented in this encounter Care Teams Online Merchandising Manager Relationship Specialty Start Date End Date Bc Hunter MD [address] [place] [address] PCP - General Internal Medicine 01/03/19 documented as of this encounter
--- OUTSIDE RECORDS SUMMARY | 2025-03-08 13:55 | XMS_ITS | Encounter Summary ---
Author Organization [employer] Address [address] [facility] 7 [place] [address] Care Team Providers Care Supervisor Winding Department Name Role Phone cB Hunter MD Primary Care Prov ider Reason for Visit * Reason Onset Date Comments Nurse Triage 2024 Encounter Details Date Type Department Care Team ([facility] st Contact Info) Description 2024 Telephone [facility] MEDICINE [address] [place] [address] Bc Hunter MD [address] [place], [place] [phone] Nurse Triage Social History Tobacco Use Types [...] called pt to triage, spoke to group supervisor yard, ANTONIO. pt was seen on 06/14 by [facility] pulmonology on 06/14 and due to some distress was sent to the ER for evaluation. pt diagnosed with Pneumonia and put onantibiotics x5 days. worker states pt eating and drinking, not having any fevers or severe/sustained sob, or other associated symptoms. given appt Wednesday with [facility] at 1:00 for exam [...] 2024 3:49 PM EDT Tc from Patient HEALTH AND SAFETY TECHNICIAN to report ED visit on : Date: 06/14 Hospital: [facility] Seen for: pneumonia Symptomatic Yes *if yes message should go to Triage Patient advised will forward to team nurse for follow up [phone] pt documented in this encounter Plan of Treatment Not on file documented as of this encounter Visit Diagnoses Not on filedocumented in this encounter Additional Health Concerns Assessment Noted Time PHQ-9 Depression Total Score: 0 09/30/19 24 11:02 AM EDT documented as of this encounter Care Teams Supervisor Winding Department Relationship Specialty Start Date End Date Bc Hunter MD [address] [place] [phone] PCP - General Internal Medicine 01/03/19 documented as of this encounter
== END 2025-03-08 11:03 | disposition home or self-care (01) ==
PROVIDERS: PCP Internal Medicine; Visit Provider Surgery
DX: K40.30 Unilateral inguinal hernia, with obstruction, without gangrene, not specified as recurrent (principal)
CPT/HCPCS: 99213

== ENCOUNTER → 2025-03-08 10:50 | Outpatient (BNVA) | payer MEDICARE, MEDICAID, SELFPAY | PROVIDERS: PCP Internal Medicine; Visit Provider Surgery | DX: K40.30 Unilateral inguinal hernia, with obstruction, without gangrene, not specified as recurrent (principal); F17.200 Nicotine dependence, unspecified, uncomplicated; R06.02 Shortness of breath; Z79.01 Long term (current) use of anticoagulants | CPT/HCPCS: 99212 ==